=== PATIENT | female | born 1950 ===

== ENCOUNTER 2017-05-19 11:29 | Inpatient (IN) | payer MEDICAID, OTHER, SELFPAY ==
--- NOTE | 2017-05-19 12:36 | ED PDOC ---
Lower Extremity Pain/Injury Time Seen by Provider: 05/19/17 12:24 Chief Complaint (Nursing): Lower Extremity Problem/Injury Chief Complaint (Provider): foot pain History Per: Patient Additional Complaint(s): 66 year old female presents to ED for evaluation of chronic wound to left foot. Patient was sent for outpatient MRI of foot by her tub mender Dr. Reynoso and was told that the MRI report showed osteomyelitis. She presents today at request of Dr. Reynoso for further evaluation. Patient states she is currently on antibiotics but she is not sure of the name of these medications. She denies fever or chills. Patient has mild pain to affected area. Past Medical History Reviewed: Historical Data, Nursing Documentation, Vital Signs Vital Signs: Last Vital Signs Temp 97.4 F L 05/19/17 11:56 Pulse 83 05/19/17 11:56 Resp 18 05/19/17 11:56 BP 149/80 05/19/17 11:56 Pulse Ox 98 05/19/17 11:56 - Medical History PMH: CVA, Diabetes, HTN, Hypercholesterolemia - Surgical History Surgical History: No Surg Hx - Family History Family History: States: No Known Family Hx - Living Arrangements Living Arrangements: With Family - Social History Current smoker - smoking cessation education provided: No Alcohol: None Drugs: Denies - Home Medications Home Medications: Ambulatory Orders Medication Instructions Recorded Atorvastatin [Lipitor] 40 mg PO DAILY 05/19/17 Enalapril Maleate [Vasotec] 10 mg PO BID 05/19/17 Insulin Detemir [Levemir] 15 unit SC QAM 05/19/17 Insulin Detemir [Levemir] 20 unit SC QPM 05/19/17 Metoprolol Tartrate [Lopressor] 25 mg PO BID 05/19/17 - Allergies Allergies/Adverse Reactions: Allergies Allergy/AdvReac Type Severity Reaction Status Date / Time No Known Allergies Allergy Verified 05/14/16 14:21 Wells Criteria for PE - Wells Criteria for Pulmonary Embolism Clinical Signs and Symptoms of DVT: No P.E is #1 Diagnosis, or Equally Likely: No Heart Rate >100: No Immobilization at least 3 days;Surgery previous 4 weeks: No Previous, objectively diagnosed PE or DVT: No Hemoptysis: No Malignancy w/treatment within 6 months, or palliative: No Total Score: 0 Review of Systems ROS Statement: Except As Marked, All Systems Reviewed And Found Negative Constitutional: Negative for: Fever, Chills Musculoskeletal: Positive for: Foot Pain (left) Physical Exam - Reviewed Nursing Documentation Reviewed: Yes Vital Signs Reviewed: Yes - Physical Exam Appears: Positive for: Well, Non-toxic, No Acute Distress Skin: Negative for: Rash Eye Exam: Positive for: Normal appearance Cardiovascular/Chest: Positive for: Regular Rate, Rhythm Respiratory: Positive for: Normal Breath Sounds Extremity: Positive for: Other (dry sterile dressing in place to left foot with ortho shoe) Neurologic/Psych: Positive for: Alert, Oriented - Laboratory Results Result Diagrams: 05/19/17 14:00 05/19/17 14:00 - ECG Interpretation Of ECG: NSR 96 bpm, nonspecific changes, reviewed by ED attending and service writer advisor O2 Sat by Pulse Oximetry: 98 Pulse Ox Interpretation: Normal - Other Rad Left foot x-ray X-Ray: Interpreted by Me, Viewed By Me X-Ray Interpretation: osteo 1st metatarsal CXR X-Ray: Interpreted by Me, Viewed By Me X-Ray Interpretation: see below Medical Decision Making Medical Decision Makin66 year old with left foot osteomyelitis Plan: CBC CMP Left foot x-ray CXR EKG As per podiatry resident, arterial doppler of left leg ordered along with IV zosyn. Patient is aware of and agrees with admission. Case was discussed with family practice resident for admission. Disposition - Clinical Impression Clinical Impression: Osteophyte, left foot - Patient ED Disposition Is Patient to be Admitted: Yes - Disposition Disposition Time: 14:35 Condition: FAIR - Pt Status Changed To: Hospital Disposition Of: Inpatient - Admit Certification Admit to Inpatient:: After my assessment, the patient will require hospitalization for at least two midnights. This is because of the severity of symptoms shown, intensity of services needed, and/or the medical risk in this patient being treated as an outpatient. - POA Present On Arrival: None Results - Lab Results Lab Results: 05/19/17 05/19/17 14:00 14:00 WBC 10.4 RBC 4.31 Hgb 11.6 L Hct 35.3 MCV 81.9 MCH 27.0 MCHC 32.9 L RDW 15.9 H Plt Count 134 MPV 10.7 Neut % (Auto) 65.5 Lymph % (Auto) 26.0 Centre % (Auto) 5.9 Eos % (Auto) 1.6 Baso % (Auto) 1.0 Neut # 6.8 Lymph # 2.7 Centre # 0.6 Eos # 0.2 Baso # 0.1 Sodium 139 Potassium 4.3 Chloride 107 Carbon Dioxide 23 Anion Gap 13 BUN 13 Creatinine 1.0 Est GFR ( Amer) > 60 Est GFR (Non-Af Amer) 56 Random Glucose 133 H Calcium 9.8 Total Bilirubin 0.8 AST 25 ALT 33 Alkaline Phosphatase 88 Total Protein 7.1 Albumin 3.7 Globulin 3.3 Albumin/Globulin Ratio 1.1
[2017-05-19] MEDS ORDERED: Sodium Chloride 0.9% 1,000 ML IV STA (13:07)
[2017-05-19] MEDS ORDERED: Piperacillin/Tazobact 3.375 GM in Sodium Chloride 0.9% 100 ML IVPB STA (13:21)
--- NOTE | 2017-05-19 14:30 | RAD ---
HISTORY: admit COMPARISON: No prior. FINDINGS: LUNGS: Mild pulmonary vascular congestive changes with bilateral lower lobe atelectasis and or developing infiltrates. Suspect small bilateral effusions PLEURA: As above. No pneumothorax apparent. CARDIOVASCULAR: Normal. Cardiomegaly OSSEOUS STRUCTURES: No significant abnormalities. VISUALIZED UPPER ABDOMEN: Normal. OTHER FINDINGS: None. IMPRESSION: Mild pulmonary vascular congestive changes with bilateral lower lobe atelectasis and or developing infiltrates. Suspect small bilateral effusions Cardiomegaly.
[2017-05-19 14:33] LABS: BASO # 0.1 K/uL (0.0-0.2); EOS # 0.2 K/uL (0.0-0.7); EOS % 1.6 % (0.0-4.0); HEMATOCRIT 35.3 % (34.0-47.0); LYMPH # 2.7 K/uL (1.0-4.3); MEAN CELL VOLUME 81.9 fl (81.0-99.0); MEAN CORPUSCULAR HGB CONC 32.9 g/dL (33.0-37.0); MEAN PLATELET VOLUME 10.7 fl (7.2-11.7); MONO # 0.6 K/uL (0.0-0.8); MONO % 5.9 % (0.0-10.0); NEUT # 6.8 K/uL (1.8-7.0); NEUT % 65.5 % (50.0-75.0); NRBC % 0.2 % (0.0-0.0); RED CELL DISTRIBUTION WIDTH 15.9 % (11.5-14.5); WHITE BLOOD COUNT 10.4 K/uL (4.8-10.8)
[2017-05-19 14:34] LABS: CHLORIDE 107 mmol/L (98-107)
[2017-05-19 14:35] LABS: POTASSIUM 4.3 MMOL/L (3.6-5.0); SODIUM 139 mmol/l (132-148)
[2017-05-19 14:37] LABS: ALB/GLOB RATIO 1.1 (1.0-2.1); AST/SGOT 25 U/L (14-36); BILIRUBIN,TOTAL 0.8 mg/dl (0.2-1.3); BLOOD UREA NITROGEN 13 mg/dl (7-17); CARBON DIOXIDE 23 mmol/L (22-30); GFR AFRICAN-AMERICAN > 60; TOTAL PROTEIN 7.1 G/DL (6.3-8.2)
[2017-05-19 14:38] LABS: ALKALINE PHOSPHATASE 88 U/L (38-126); ALT/SGPT 33 U/L (9-52); CALCIUM 9.8 mg/dL (8.4-10.2); GLUCOSE,RANDOM 133 mg/dL (65-105)
--- NOTE | 2017-05-19 14:49 | RAD ---
PROCEDURE: Left foot dated 05/19/2017 Three views left foot performed. HISTORY: Rule out osteomyelitis. As per discussion with emergency room PA [facility] [place] performed last week demonstrated osteomyelitis 2:45 p.m.. . COMPARISON: Comparison made with prior study 05/05/2017 FINDINGS: BONES: Current study reveals what appears represent some localized irregularity along the superomedial border of the head of the 1st meta tarsal. There is also some irregularity of the overlying soft tissues and possibly small amount of subcutaneous air. Findings suggest osteomyelitis in this location. JOINTS: Joint space is relatively preserved. SOFT TISSUES: As above OTHER FINDINGS: None. IMPRESSION: Findings suggestive of osteomyelitis involving the superomedial aspect head of the 1st metatarsal with overlying soft tissue irregularity and possibly small amount subcutaneous air Findings discussed with emergency room PA as above
[2017-05-19] MEDS ORDERED: Piperacillin/Tazobact 3.375 gm Inj IVPB ONE ×2 (15:50→20:27)
[2017-05-19] MEDS ORDERED: Glucagon Recombinant 1 mg Inj IM PRN (16:11)
[2017-05-19] MEDS ORDERED: Dextrose 50% SYRINGE Inj (50 ml) IV PRN (16:11)
--- NOTE | 2017-05-19 16:16 | US ---
PROCEDURE: Duplex ultrasound of the left lower extremity arteries. HISTORY: osteo of left foot COMPARISON: None available. TECHNIQUE: Grayscale and duplex Doppler evaluation of the left common femoral, superficial femoral, popliteal, posterior tibial and dorsalis pedis arteries was performed.. FINDINGS: COMMON FEMORAL ARTERY: Patent. Maximal flow velocity of 69.5 cm/s. Biphasic waveforms identified suggesting mild arterial disease without significant stenosis. SUPERFICIAL FEMORAL ARTERY:Patent. Maximal flow velocity of 50.8 cm/s. Biphasic waveforms identified suggesting mild arterial disease without significant stenosis. POPLITEAL ARTERY:Patent. Maximal flow velocity of 70.9 cm/s. Biphasic waveforms identified suggesting mild arterial disease without significant stenosis. POSTERIOR TIBIAL ARTERY: Patent. Maximal flow velocity of 64.8 cm/s. Monophasic waveform is appreciated suggesting significant arterial stenosis, potentially severe. Similar changes are identified at the anterior tibial artery. DORSALIS PEDIS ARTERY: Patent. Maximal flow velocity of 40.9 cm/s. Addendum nearly monomorphic waveform is appreciated which may indicate severe arterial disease. OTHER FINDINGS: None. IMPRESSION: Mild arterial disease is suggested at the proximal to mid leg from left groin to knee with potentially severe arterial disease in the runoff below the left knee. Follow-up MR or CT angiography is advised with contrast.
--- NOTE | 2017-05-19 16:22 | CP.PCM.HP ---
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 Pt stated that she came to ED because her outpt general service technician told her to because "it is infected." As per ED documentation, she presented at the request of her general service technician Dr. Reynoso for further eval after an outpt MRI showed osteomyelitis. Patient stated that she is currently on antibiotics but she is not sure of the name of these medications. Patient has mild pain to affected area, and stated that overall her feet occasionally feel numb. Patient states that the pain is 6/ 10, dull, radiates up to the ankle, is aggravated by walking and friction from her shoe, is not alleviated by anything, and is not associated with any other symptoms. States that she has no specific deficits from her stroke, but that she overall feels much weaker after it, without one side being more weak than another. States that she has chronic back pain from a fall down a slight of stairs after slipping, that the pain is unchanged and that she sometimes wears a binder to alleviate it. PMHx: DM2, HTN, HLD, NH, stroke, chronic back pain Allergies: NDKA Medications: atorvastatin 40, enalapril 10 bid, levemir 15u sc AM, levemir 20 sc PM, metoprolol 25 mg BID. States that she is compliant with medications. Past Hospitalizations: numerous times for "high sugar" for NH for stroke Past Surgical History: none Past Trauma: slipped and fell down flight of stairs 3 yrs ago, has chronic back pain as a result Social Hx: former smoker (smoked 2cig/day for 40+ yrs, quit one year ago), denies occasional EtOH use, denies drug use (prescription painkillers, marijuana , cocaine, heroin). Lives with spouse in apartment on [address]th floor. Family Hx: mother NH age 86 OBGYN Hx: (two sets of twins), no abortions/miscarriages. LMP 13-14 yrs ago. ED course: Vitals: 149/80, HR 83, T97.4, O2sat 98 RA EKG: interpreted in ED as NSR @ 96 bpm, nonspecific wave changes, interpreted by ED attending CMP: unremarkable CBC: Hgb 11.6, no white count (WBC 10.4) NS bolus 1L Zosyn LE Duplex: Mild arterial disease is suggested at the proximal to mid leg from left groin to knee with potentially severe arterial disease in the runoff below the knee. Follow up MR or CT angiography is advised with contrast. Foot Xray: Study reveals what appears to represent some localized irregularity along the superomedial border of the head of first metatarsal. Also some irregularity of the overlying soft tissues and possibly small amount of subcutaneous air. Findings suggest osteomyelitis in this location. CXR: mild pulmonary vascular congestive changes with bilateral lower lobe atelectasis and/or developing infiltrates. Suspect small bilateral effusions. Present on Admission - Present on Admission Any Indicators Present on Admission: No Review of Systems - Review of Systems All systems: reviewed and no additional remarkable complaints except - Gastrointestinal Gastrointestinal: Constipation - Musculoskeletal Musculoskeletal: Back Pain, Numbness Additional comments: stocking distribution numbness b/l lower extremities to mid calf. chronic back pain s/p fall 3 yrs ago pain in LLE due to ulcer - Neurological Neurological: Weakness Additional comments: overall, chronic, post stroke Past Patient History - Infectious Disease Hx of Infectious Diseases: None - Tetanus Immunizations Tetanus Immunization: Unknown - Past Medical History & Family History Past Medical History?: Yes Past Family History: Reviewed and not pertinent - Past Social History Smoking Status: Former Smoker Alcohol: None Drugs: Denies Home Situation {Lives}: With Family Domestic Violence: Negative - CARDIAC Hx Cardiac Disorders: Yes Hx Hypercholesterolemia: Yes Hx Hypertension: Yes - PULMONARY Hx Respiratory Disorders: No - NEUROLOGICAL Hx Neurological Disorder: Yes HX Cerebrovascular Accident: Yes (left sided weakness) - HEENT Hx HEENT Problems: No - RENAL Hx Chronic Kidney Disease: No - ENDOCRINE/METABOLIC Hx Endocrine Disorders: Yes Hx Diabetes Mellitus Type 2: Yes - HEMATOLOGICAL/ONCOLOGICAL Hx Blood Disorders: No - INTEGUMENTARY Hx Dermatological Problems: No - MUSCULOSKELETAL/RHEUMATOLOGICAL Hx Musculoskeletal Disorders: Yes Other/Comment: hx of chronic back pain - GASTROINTESTINAL Hx Gastrointestinal Disorders: No - GENITOURINARY/GYNECOLOGICAL Hx Genitourinary Disorders: No - PSYCHIATRIC Hx Psychophysiologic Disorder: No Hx Substance Use: No - SURGICAL HISTORY Hx Surgeries: Yes Hx Section: Yes - ANESTHESIA Hx Anesthesia: Yes Hx Anesthesia Reactions: No Meds Allergies/Adverse Reactions: Allergies Allergy/AdvReac Type Severity Reaction Status Date / Time No Known Allergies Allergy Verified 05/14/16 14:21 Physical Exam - Constitutional Appears: Well, No Acute Distress - Head Exam Head Exam: ATRAUMATIC, NORMAL INSPECTION - Eye Exam Eye Exam: EOMI, PERRL - ENT Exam ENT Exam: Mucous Membranes Moist - Respiratory Exam Respiratory Exam: Clear to Auscultation Bilateral, NORMAL BREATHING PATTERN. absent: Wheezes, Respiratory Distress - Cardiovascular Exam Cardiovascular Exam: REGULAR RHYTHM, +S1, +S2 - GI/Abdominal Exam GI & Abdominal Exam: Normal Bowel Sounds, Soft. absent: Distended, Guarding, Tenderness - Extremities Exam Extremities exam: Positive for: normal capillary refill. Negative for: calf tenderness, joint swelling Additional comments: 3/4 inch by 3/4 inch ulcer on first metatarsal of L foot mild pain to touch of left foot up to ankle - Neurological Exam Neurological exam: Alert, Oriented x3 - Psychiatric Exam Psychiatric exam: Normal Mood - Skin Skin Exam: Dry, Normal Color, Warm Results - Vital Signs Recent Vital Signs: Last Vital Signs Temp 97.4 F L 05/19/17 11:56 Pulse 83 05/19/17 11:56 Resp 18 05/19/17 11:56 BP 149/80 05/19/17 11:56 Pulse Ox 98 05/19/17 15:30 - Labs Result Diagrams: 05/19/17 14:00 05/19/17 14:00 Assessment & Plan - Assessment and Plan (Free Text) Assessment: 66 yo F with PMH DM2, HTN, HLD, NH, stroke admitted due to most likely osteomyelitis in left lower extremity at first metatarsal. Plan: 1) Osteomyelitis -podiatry consulted -LE Doppler: Mild arterial disease is suggested at the proximal to mid leg from left groin to knee with potentially severe arterial disease in the runoff below the knee. Follow up MR or CT angiography is advised with contrast. -Xray Foot: Study reveals what appears to represent some localized irregularity along the superomedial border of the head of first metatarsal. Also some irregularity of the overlying soft tissues and possibly small amount of subcutaneous air. Findings suggest osteomyelitis in this location. -CXR: mild pulmonary vascular congestive changes with bilateral lower lobe atelectasis and/or developing infiltrates. Suspect small bilateral effusions. -Zosyn 3.375gm Q12, Day 1 -Labs: CBC, CMP, PT/INR/PTT -Tramadol for pain Q6 PRN -ID consult 2) Diabetes Mellitus Type 2 -Restart home meds: levemir 15u QAM, 20u QPM -Diabetic diet -Monitor glucose -Hyperglycemia protocol in place 3)Hypertension -Restart home meds: enalapril, metoprolol -Monitor BP 4)Hyperlipidemia -Restart home meds: atorvastatin 5) Anxiety -Psych consult placed bc pt was reported to be very anxious and labile 6)DVT prophylaxis -Lovenox 40 mg SC daily
[2017-05-19] MEDS ORDERED: Labetalol 5 mg/ml Inj 20ML IVP STA (17:31)
[2017-05-19] MEDS ORDERED: Insulin Regular 100 units/ml ONE (18:32)
[2017-05-19] MEDS: Insulin Regular 100 units/ml SC SCH ×2 (18:35→22:23)
[2017-05-19] MEDS: Insulin Detemir 100 Units/ml Inj SC SCH (18:40)
--- NOTE | 2017-05-19 19:49 | CP.PCM.CON ---
Past Patient History - Infectious Disease Hx of Infectious Diseases: None - Tetanus Immunizations Tetanus Immunization: Unknown - Past Medical History & Family History Past Medical History?: Yes Past Family History: Reviewed and not pertinent - Past Social History Smoking Status: Former Smoker Alcohol: None Drugs: Denies Home Situation {Lives}: With Family Domestic Violence: Negative - CARDIAC Hx Cardiac Disorders: Yes Hx Hypercholesterolemia: Yes Hx Hypertension: Yes - PULMONARY Hx Respiratory Disorders: No - NEUROLOGICAL Hx Neurological Disorder: Yes HX Cerebrovascular Accident: Yes (left sided weakness) - HEENT Hx HEENT Problems: No - RENAL Hx Chronic Kidney Disease: No - ENDOCRINE/METABOLIC Hx Endocrine Disorders: Yes Hx Diabetes Mellitus Type 2: Yes - HEMATOLOGICAL/ONCOLOGICAL Hx Blood Disorders: No - INTEGUMENTARY Hx Dermatological Problems: No - MUSCULOSKELETAL/RHEUMATOLOGICAL Hx Musculoskeletal Disorders: Yes Other/Comment: hx of chronic back pain - GASTROINTESTINAL Hx Gastrointestinal Disorders: No - GENITOURINARY/GYNECOLOGICAL Hx Genitourinary Disorders: No - PSYCHIATRIC Hx Psychophysiologic Disorder: No Hx Substance Use: No - SURGICAL HISTORY Hx Surgeries: Yes Hx Section: Yes - ANESTHESIA Hx Anesthesia: Yes Hx Anesthesia Reactions: No Meds Allergies/Adverse Reactions: Allergies Allergy/AdvReac Type Severity Reaction Status Date / Time No Known Allergies Allergy Verified 05/14/16 14:21 - Medications Medications: Current Medications Atorvastatin Calcium (Lipitor) 40 mg PO DAILY [facility] Dextrose (Dextrose 50% Inj) 0 ml IV STAT PRN; Protocol PRN Reason: Hyglycemia Protocol Dextrose (Glutose 15) 0 gm PO ONCE PRN; Protocol PRN Reason: Hypoglycemia Protocol Enalapril Maleate (Vasotec) 10 mg PO BID [facility] Last Admin: 05/19/17 18:43 Dose: 10 mg Enoxaparin Sodium (Lovenox) 40 mg SC DAILY [facility] PRN Reason: Protocol Glucagon (Glucagen Diagnostic Kit) 0 mg IM STAT PRN; Protocol PRN Reason: Hypoglycemia Protocol Piperacillin Sod/Tazobactam (Sod 3.375 gm/ Sodium Chloride) 100 mls @ 100 mls/ hr IVPB Q12 [facility] Insulin Detemir (Levemir) 20 units SC QPM [facility] Last Admin: 05/19/17 18:40 Dose: 20 unit Insulin Detemir (Levemir) 15 units SC QAM [facility] Insulin Human Regular (Humulin R) 0 units SC ACHS [facility] PRN Reason: Protocol Last Admin: 05/19/17 18:35 Dose: 3 unit Metoprolol Tartrate (Lopressor) 25 mg PO BID DASHAWN Last Admin: 05/19/17 18:43 Dose: 25 mg Morphine Sulfate (Morphine) 1 mg IVP Q6 PRN PRN Reason: Pain, moderate (4-7) Last Admin: 05/19/17 16:49 Dose: 1 mg Ondansetron HCl (Zofran Inj) 4 mg IVP ONCE ONE Stop: 05/19/17 19:19 Last Admin: 05/19/17 19:40 Dose: 4 mg Tramadol HCl (Ultram) 100 mg PO Q6 PRN PRN Reason: Pain, severe (8-10) Results - Vital Signs Recent Vital Signs: Last Vital Signs Temp 98.4 F 05/19/17 19:48 Pulse 95 H 05/19/17 19:48 Resp 16 05/19/17 19:48 BP 134/53 L 05/19/17 19:48 Pulse Ox 94 L 05/19/17 19:48 - Labs Result Diagrams: 05/19/17 14:00 05/19/17 14:00
[2017-05-19] MEDS: Piperacillin/Tazobact 3.375 GM in Sodium Chloride 0.9% 100 ML IVPB SCH (21:00)
[2017-05-20] MEDS ORDERED: Pneumococcal 23-Valent Vaccine IM ONE (06:30)
[2017-05-20] MEDS: Insulin Regular 100 units/ml SC SCH ×4 (06:34→21:43)
[2017-05-20 07:37] LABS: PARTIAL THROMBOPLASTIN TIME 34.8 Seconds (25.6-37.1)
[2017-05-20 07:46] LABS: MEAN CELL VOLUME 82.7 fl (81.0-99.0); MEAN CORPUSCULAR HEMOGLOBIN 27.3 pg (27.0-31.0); RED CELL DISTRIBUTION WIDTH 15.9 % (11.5-14.5); WHITE BLOOD COUNT 8.9 K/uL (4.8-10.8)
[2017-05-20] MEDS ORDERED: Insulin Detemir 100 Units/ml Inj SC SCH (09:00)
--- NOTE | 2017-05-20 09:01 | CP.PCM.CON ---
History of Present Illness - History of Present Illness History of Present Illness: 66 year old female PMHx DM2, HTN, HLD, [place], CVA, chronic back pain seen at bedside for left foot chronic ulceration. Patient seen sleeping in bed comfortably, AAOx3 and NAD. Patient reports that she only experiences pain in her left foot whenever she puts pressure or any weight on it. She denies pain to her L foot currently. Patient states she was admitted at the request of Dr. Reynoso for a bone infection to her L foot. Patient denies any acute events overnight. Patient is inquiring when she will have surgery. Patient denies N/V/F /D/C/SOB/calf pain. No other pedal complaints at this time. PMH: DM2, HTN, HLD, [place], CVA, chronic back pain PSH: none FH: [place] - mother SH: former smoker, no ETOH, no illicit drug use Meds: see med list All: NKDA Review of Systems - Review of Systems All systems: reviewed and no additional remarkable complaints except (as per HPI ) Past Patient History - Infectious Disease Hx of Infectious Diseases: None - Tetanus Immunizations Tetanus Immunization: Unknown - Past Medical History & Family History Past Medical History?: Yes - Past Social History Smoking Status: Former Smoker - CARDIAC Hx Cardiac Disorders: Yes Hx Hypercholesterolemia: Yes Hx Hypertension: Yes - PULMONARY Hx Respiratory Disorders: No - NEUROLOGICAL Hx Neurological Disorder: Yes HX Cerebrovascular Accident: Yes (left sided weakness) - HEENT Hx HEENT Problems: No - RENAL Hx Chronic Kidney Disease: No - ENDOCRINE/METABOLIC Hx Endocrine Disorders: Yes Hx Diabetes Mellitus Type 2: Yes - HEMATOLOGICAL/ONCOLOGICAL Hx Blood Disorders: No - INTEGUMENTARY Hx Dermatological Problems: No - MUSCULOSKELETAL/RHEUMATOLOGICAL Hx Musculoskeletal Disorders: Yes Hx Falls: Yes (fell 6 months ago) Other/Comment: hx of chronic back pain - GASTROINTESTINAL Hx Gastrointestinal Disorders: No - GENITOURINARY/GYNECOLOGICAL Hx Genitourinary Disorders: No - PSYCHIATRIC Hx Psychophysiologic Disorder: No Hx Substance Use: No - SURGICAL HISTORY Hx Surgeries: Yes Hx Section: Yes - ANESTHESIA Hx Anesthesia: Yes Hx Anesthesia Reactions: No Meds Allergies/Adverse Reactions: Allergies Allergy/AdvReac Type Severity Reaction Status Date / Time No Known Allergies Allergy Verified 05/14/16 14:21 - Medications Medications: Current Medications Atorvastatin Calcium (Lipitor) 40 mg PO DAILY [facility] Dextrose (Dextrose 50% Inj) 0 ml IV STAT PRN; Protocol PRN Reason: Hyglycemia Protocol Dextrose (Glutose 15) 0 gm PO ONCE PRN; Protocol PRN Reason: Hypoglycemia Protocol Enalapril Maleate (Vasotec) 10 mg PO BID [facility] Last Admin: 05/19/17 18:43 Dose: 10 mg Enoxaparin Sodium (Lovenox) 40 mg SC DAILY [facility] PRN Reason: Protocol Glucagon (Glucagen Diagnostic Kit) 0 mg IM STAT PRN; Protocol PRN Reason: Hypoglycemia Protocol Piperacillin Sod/Tazobactam (Sod 3.375 gm/ Sodium Chloride) 100 mls @ 100 mls/ hr IVPB Q12 [facility] Last Admin: 05/19/17 21:00 Dose: 100 mls/hr Insulin Detemir (Levemir) 20 units SC QPM [facility] Last Admin: 05/19/17 18:40 Dose: 20 unit Insulin Detemir (Levemir) 15 units SC QAM [facility] Insulin Human Regular (Humulin R) 0 units SC ACHS [facility] PRN Reason: Protocol Last Admin: 05/20/17 06:34 Dose: Not Given Metoprolol Tartrate (Lopressor) 25 mg PO BID [facility] Last Admin: 05/19/17 18:43 Dose: 25 mg Morphine Sulfate (Morphine) 1 mg IVP Q6 PRN PRN Reason: Pain, moderate (4-7) Last Admin: 05/19/17 16:49 Dose: 1 mg Tramadol HCl (Ultram) 100 mg PO Q6 PRN PRN Reason: Pain, severe (8-10) Physical Exam - Constitutional Appears: Well, Non-toxic, No Acute Distress - Extremities Exam Additional comments: LLE focused physical exam: Vasc: DP pulse nonpalpable. PT pulse weakly palpable 1/4. CFT <3 seconds to digits. TG cool to cool. No edema noted Neuro: Gross sensation intact Derm: Ulceration measuring 1.5 x 1.5 cm with mixed necrotic/fibrous base and hyperkeratotic rim. No drainage, purulence, malodor noted. Ortho: Mild tenderness to palpation medial 1st met head - Neurological Exam Neurological exam: Alert, Oriented x3 - Psychiatric Exam Psychiatric exam: Normal Affect, Normal Mood Results - Vital Signs Recent Vital Signs: Last Vital Signs Temp 98.4 F 05/20/17 08:24 Pulse 83 05/20/17 08:24 Resp 18 05/20/17 08:24 BP 132/81 05/20/17 08:24 Pulse Ox 97 05/20/17 08:24 - Labs Result Diagrams: 05/20/17 06:00 05/19/17 14:00 Labs: Laboratory Results - last 24 hr 05/19/17 05/19/17 05/20/17 18:19 19:47 06:00 WBC 8.9 RBC 3.99 Hgb 10.9 L Hct 33.0 L MCV 82.7 MCH 27.3 MCHC 33.0 RDW 15.9 H Plt Count 150 PT INR APTT POC Glucose (mg/dL) 230 H 316 H 05/20/17 06:00 WBC RBC Hgb Hct MCV MCH MCHC RDW Plt Count PT 13.1 INR 1.2 APTT 34.8 POC Glucose (mg/dL) Assessment & Plan - Assessment and Plan (Free Text) Assessment: 66 year old F PMHx DM2, HTN, HLD, [place], stroke with left foot 1st metatarsal ulceration and 1st metatarsal head osteomyelitis secondary to DM Plan: Patient seen and evaluated at bedside. Discussed with attending, Dr. Reynoso. Chart, vitals, labs reviewed = afebrile, WBC = 8.9, glucose = 316 L foot XR reviewed: +OM to superomedial 1st met head LLE arterial doppler reviewed: mild arterial disease at proximal mid leg from groin to knee with potentially severe arterial disease in the runoff below knee Continue abx per ID = Zosyn Continue pain mgmt per medicine = Morphine, Tramadol F/U vascular consult w/Dr. Castro. Per Dr. Castro, LLE CTA ordered Plan for OR next week, pending vascular recommendations & cardiac clearance Podiatry will continue to follow while in house - Date & Time Date: 05/20/17 Time: 10:00
[2017-05-20] MEDS: Insulin Detemir 100 Units/ml Inj SC SCH ×2 (09:31→18:41)
[2017-05-20] MEDS: Enoxaparin 40 mg Syringe SC SCH (09:31)
[2017-05-20] MEDS: Piperacillin/Tazobact 3.375 GM in Sodium Chloride 0.9% 100 ML IVPB SCH ×2 (10:00→21:36)
--- NOTE | 2017-05-20 10:27 | RAD ---
HISTORY: surgical clearance COMPARISON: 05/19/2017 TECHNIQUE: Chest PA and lateral FINDINGS: LUNGS: Hazy opacity at right base not evident in the lateral projection. Possible middle lobe infiltrate. There is also a denser radio opacity overlapping the right hemidiaphragm, again uncertain significance. Possible subsegmental atelectasis. PLEURA: Small right pleural effusion. No evidence of left pleural effusion. No pneumothorax. CARDIOVASCULAR: Normal. OSSEOUS STRUCTURES: No significant abnormalities. VISUALIZED UPPER ABDOMEN: Normal. OTHER FINDINGS: None. IMPRESSION: Right basilar opacity, possible early infiltrate. Possible subsegmental atelectasis right base. Small right pleural effusion. Interval change from prior examination.
--- NOTE | 2017-05-20 10:32 | CARD ---
APPROVED REPORT EKG Measurement Heart [id number] <Conclusion> Normal sinus rhythm Possible Left atrial enlargement Nonspecific ST and T wave abnormality Prolonged QT Abnormal ECG
--- NOTE | 2017-05-20 14:46 | CP.PCM.CON ---
History of Present Illness - History of Present Illness History of Present Illness: psychiatry consult reason: anxiety, crying ordered by dr. leo cc: i'm nervous hpi: pt seen with michael beaulieuspanish interpreter/translator. pt states she has no history of seeing a psychiatrist. she states her pcp had prescribed xanax to help her anxiety, but she stopped it over a year ago because she didn't like how it made her feel. she reports she has been nervous and had not been able to sleep for the last 4 months. she states she is worried about the infection in her foot and other medical problems. she states her curses at home and this triggers her anxiety. past psych: as above social: , lives with . has children and grandchildren in [place] but they are not involved daily. she reports she was [place] 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 substance use: denies medical: diabetes, osteo of foot mse: alert, oriented x 3. mood is anxious. affect is appropriate. speech is appropriate rate/tone volume. pt denies suicidal or homicidal thoughts/plans or intent. fair i/j. assessment: adjustment disorder with anxiety recommendation: remeron 7.5mg hs for insomnia/anxiety can be refered to adult day care/outpt therapy Past Patient History - Infectious Disease Hx of Infectious Diseases: None - Tetanus Immunizations Tetanus Immunization: Unknown - Past Medical History & Family History Past Medical History?: Yes - Past Social History Smoking Status: Former Smoker - CARDIAC Hx Cardiac Disorders: Yes Hx Hypercholesterolemia: Yes Hx Hypertension: Yes - PULMONARY Hx Respiratory Disorders: No - NEUROLOGICAL Hx Neurological Disorder: Yes HX Cerebrovascular Accident: Yes (left sided weakness) - HEENT Hx HEENT Problems: No - RENAL Hx Chronic Kidney Disease: No - ENDOCRINE/METABOLIC Hx Endocrine Disorders: Yes Hx Diabetes Mellitus Type 2: Yes - HEMATOLOGICAL/ONCOLOGICAL Hx Blood Disorders: No - INTEGUMENTARY Hx Dermatological Problems: No - MUSCULOSKELETAL/RHEUMATOLOGICAL Hx Musculoskeletal Disorders: Yes Hx Falls: Yes (fell 6 months ago) Other/Comment: hx of chronic back pain - GASTROINTESTINAL Hx Gastrointestinal Disorders: No - GENITOURINARY/GYNECOLOGICAL Hx Genitourinary Disorders: No - PSYCHIATRIC Hx Psychophysiologic Disorder: No Hx Substance Use: No - SURGICAL HISTORY Hx Surgeries: Yes Hx Section: Yes - ANESTHESIA Hx Anesthesia: Yes Hx Anesthesia Reactions: No Meds Allergies/Adverse Reactions: Allergies Allergy/AdvReac Type Severity Reaction Status Date / Time No Known Allergies Allergy Verified 05/14/16 14:21 - Medications Medications: Current Medications Atorvastatin Calcium (Lipitor) 40 mg PO DAILY [facility] Last Admin: 05/20/17 09:35 Dose: 40 mg Dextrose (Dextrose 50% Inj) 0 ml IV STAT PRN; Protocol PRN Reason: Hyglycemia Protocol Dextrose (Glutose 15) 0 gm PO ONCE PRN; Protocol PRN Reason: Hypoglycemia Protocol Enalapril Maleate (Vasotec) 10 mg PO BID [facility] Last Admin: 05/20/17 09:34 Dose: 10 mg Enoxaparin Sodium (Lovenox) 40 mg SC DAILY [facility] PRN Reason: Protocol Last Admin: 05/20/17 09:31 Dose: 40 mg Glucagon (Glucagen Diagnostic Kit) 0 mg IM STAT PRN; Protocol PRN Reason: Hypoglycemia Protocol Piperacillin Sod/Tazobactam (Sod 3.375 gm/ Sodium Chloride) 100 mls @ 100 mls/ hr IVPB Q12 [facility] Last Admin: 05/20/17 10:00 Dose: 100 mls/hr Insulin Detemir (Levemir) 20 units SC QPM [facility] Last Admin: 05/19/17 18:40 Dose: 20 unit Insulin Detemir (Levemir) 15 units SC QAM [facility] Last Admin: 05/20/17 09:31 Dose: 15 units Insulin Human Regular (Humulin R) 0 units SC ACHS [facility] PRN Reason: Protocol Last Admin: 05/20/17 06:34 Dose: Not Given Metoprolol Tartrate (Lopressor) 25 mg PO BID [facility] Last Admin: 05/20/17 09:34 Dose: 25 mg Morphine Sulfate (Morphine) 1 mg IVP Q6 PRN PRN Reason: Pain, moderate (4-7) Last Admin: 05/19/17 16:49 Dose: 1 mg Tramadol HCl (Ultram) 100 mg PO Q6 PRN PRN Reason: Pain, severe (8-10) Results - Vital Signs Recent Vital Signs: Last Vital Signs Temp 98.2 F 05/20/17 13:04 Pulse 80 05/20/17 13:04 Resp 18 05/20/17 13:04 BP 116/74 05/20/17 13:04 Pulse Ox 96 05/20/17 13:04 - Labs Result Diagrams: 05/20/17 06:00 05/19/17 14:00 Labs: Laboratory Results - last 24 hr 05/19/17 05/19/17 05/20/17 18:19 19:47 06:00 WBC 8.9 RBC 3.99 Hgb 10.9 L Hct 33.0 L MCV 82.7 MCH 27.3 MCHC 33.0 RDW 15.9 H Plt Count 150 PT INR APTT POC Glucose (mg/dL) 230 H 316 H 05/20/17 06:00 WBC RBC Hgb Hct MCV MCH MCHC RDW Plt Count PT 13.1 INR 1.2 APTT 34.8 POC Glucose (mg/dL)
--- NOTE | 2017-05-20 15:39 | CP.PCM.PN ---
Subjective - Date & Time of Evaluation Date of Evaluation: 05/20/17 Time of Evaluation: 07:40 - Subjective Subjective: Pt was seen and evaluated at bedside, appeared less anxious than yesterday evening, appeared comfortable. No acute events overnight, curious when surgery will be and patient was told that podiatry is following. Denied shortness of breath, chest pain, abdominal pain, leg/calf pain/swelling, denies changes in pain at left extremity. Objective - Vital Signs/Intake and Output Vital Signs (last 24 hours): Temp Pulse Resp BP Pulse Ox 98.2 F 80 18 116/74 96 05/20/17 13:04 05/20/17 13:04 05/20/17 13:04 05/20/17 13:04 05/20/17 13:04 - Medications Medications: Current Medications Atorvastatin Calcium (Lipitor) 40 mg PO DAILY [facility] Last Admin: 05/20/17 09:35 Dose: 40 mg Dextrose (Dextrose 50% Inj) 0 ml IV STAT PRN; Protocol PRN Reason: Hyglycemia Protocol Dextrose (Glutose 15) 0 gm PO ONCE PRN; Protocol PRN Reason: Hypoglycemia Protocol Enalapril Maleate (Vasotec) 10 mg PO BID [facility] Last Admin: 05/20/17 09:34 Dose: 10 mg Enoxaparin Sodium (Lovenox) 40 mg SC DAILY [facility] PRN Reason: Protocol Last Admin: 05/20/17 09:31 Dose: 40 mg Glucagon (Glucagen Diagnostic Kit) 0 mg IM STAT PRN; Protocol PRN Reason: Hypoglycemia Protocol Piperacillin Sod/Tazobactam (Sod 3.375 gm/ Sodium Chloride) 100 mls @ 100 mls/ hr IVPB Q12 [facility] Last Admin: 05/20/17 10:00 Dose: 100 mls/hr Insulin Detemir (Levemir) 20 units SC QPM [facility] Last Admin: 05/19/17 18:40 Dose: 20 unit Insulin Detemir (Levemir) 15 units SC QAM [facility] Last Admin: 05/20/17 09:31 Dose: 15 units Insulin Human Regular (Humulin R) 0 units SC ACHS [facility] PRN Reason: Protocol Last Admin: 05/20/17 06:34 Dose: Not Given Metoprolol Tartrate (Lopressor) 25 mg PO BID [facility] Last Admin: 05/20/17 09:34 Dose: 25 mg Mirtazapine (Remeron) 7.5 mg PO HS [facility] Morphine Sulfate (Morphine) 1 mg IVP Q6 PRN PRN Reason: Pain, moderate (4-7) Last Admin: 05/19/17 16:49 Dose: 1 mg Tramadol HCl (Ultram) 100 mg PO Q6 PRN PRN Reason: Pain, severe (8-10) - Labs Labs: 05/20/17 06:00 PT 13.1 Seconds (9.8-13.1) 05/20/17 06:00 INR 1.2 (0.9-1.2) 05/20/17 06:00 APTT 34.8 Seconds (25.6-37.1) 05/20/17 06:00 - Constitutional Appears: Non-toxic, No Acute Distress - Head Exam Head Exam: ATRAUMATIC - Eye Exam Eye Exam: EOMI, Normal appearance - ENT Exam ENT Exam: Mucous Membranes Moist - Respiratory Exam Respiratory Exam: Clear to Ausculation Bilateral, NORMAL BREATHING PATTERN - Cardiovascular Exam Cardiovascular Exam: REGULAR RHYTHM, +S1, +S2 - GI/Abdominal Exam GI & Abdominal Exam: Soft, Normal Bowel Sounds - Extremities Exam Extremities Exam: absent: Calf Tenderness Additional comments: ulcer at first metatarsal on LLE, as on admission - Neurological Exam Neurological Exam: Alert, Awake, Oriented x3 - Skin Skin Exam: Normal Color, Warm Assessment and Plan - Assessment and Plan (Free Text) Assessment: 66 yo F with PMH DM2, HTN, HLD, [place], CVA admitted due to most likely osteomyelitis in left lower extremity at first metatarsal. Awaiting podiatry intervention. Plan: 1) Osteomyelitis -podiatry consulted; further intervention by podiatry team, who is awaiting vascular consult -LE Doppler: Mild arterial disease is suggested at the proximal to mid leg from left groin to knee with potentially severe arterial disease in the runoff below the knee. Follow up MR or CT angiography is advised with contrast. -Xray Foot: Study reveals what appears to represent some localized irregularity along the superomedial border of the head of first metatarsal. Also some irregularity of the overlying soft tissues and possibly small amount of subcutaneous air. Findings suggest osteomyelitis in this location. -Zosyn 3.375gm Q12, Day 2 -f/u CBC, CMP, PT/INR/PTT -Tramadol for pain Q6 PRN -ID consult 2) Diabetes Mellitus Type 2 -Restart home meds: levemir 15u QAM, 20u QPM -check A1C -check urine microalbumin -Diabetic diet -Monitor glucose -Hyperglycemia protocol in place 3)Hypertension -Restart home meds: enalapril, metoprolol -Monitor BP 4)Hyperlipidemia -Restart home meds: atorvastatin -check lipid panel 5) Anxiety -seen by psychiatrist -started on remeron for anxiety 6)DVT prophylaxis -Lovenox 40 mg SC daily
[2017-05-20] MEDS ORDERED: Iodixanol 320 MG/ML 100 ML BOTTLE IV ONE (18:50)
[2017-05-20] MEDS ORDERED: Sodium Chloride 0.9% 50 ML IV ONE (18:51)
[2017-05-21] MEDS: Insulin Regular 100 units/ml SC SCH ×4 (06:36→22:00)
[2017-05-21 07:06] LABS: HEMATOCRIT 32.5 % (34.0-47.0); MEAN CELL VOLUME 82.5 fl (81.0-99.0); MEAN CORPUSCULAR HEMOGLOBIN 27.3 pg (27.0-31.0); MEAN CORPUSCULAR HGB CONC 33.1 g/dL (33.0-37.0); RED CELL DISTRIBUTION WIDTH 16.1 % (11.5-14.5); WHITE BLOOD COUNT 10.4 K/uL (4.8-10.8)
[2017-05-21 07:11] LABS: ALB/GLOB RATIO 1.1 (1.0-2.1); BILIRUBIN,TOTAL 0.7 mg/dl (0.2-1.3); CALCIUM 9.1 mg/dL (8.4-10.2); TOTAL PROTEIN 6.6 G/DL (6.3-8.2)
--- NOTE | 2017-05-21 07:45 | CP.PCM.PN ---
Subjective - Date & Time of Evaluation Date of Evaluation: 05/21/17 Time of Evaluation: 07:42 - Subjective Subjective: 66 year old female PMHx DM2, HTN, HLD, [place], CVA, chronic back pain seen at bedside for left foot chronic ulceration. Patient seen sleeping in bed comfortably, AAOx3 and NAD. She denies pain to her L foot currently. Patient denies any acute events overnight. Patient states she went for a test for her blood last night. Patient denies N/V/F/D/C/SOB/calf pain. No other pedal complaints at this time. Objective - Vital Signs/Intake and Output Vital Signs (last 24 hours): Temp Pulse Resp BP Pulse Ox 97.5 F L 86 18 169/90 H 95 05/21/17 05:15 05/21/17 05:15 05/21/17 05:15 05/21/17 05:15 05/21/17 05:15 Intake and Output: 05/21/17 05/21/17 06:59 18:59 Intake Total 900 Balance 900 - Medications Medications: Current Medications Atorvastatin Calcium (Lipitor) 40 mg PO DAILY [facility] Last Admin: 05/20/17 09:35 Dose: 40 mg Dextrose (Dextrose 50% Inj) 0 ml IV STAT PRN; Protocol PRN Reason: Hyglycemia Protocol Dextrose (Glutose 15) 0 gm PO ONCE PRN; Protocol PRN Reason: Hypoglycemia Protocol Enalapril Maleate (Vasotec) 10 mg PO BID [facility] Last Admin: 05/20/17 09:34 Dose: 10 mg Enoxaparin Sodium (Lovenox) 40 mg SC DAILY [facility] PRN Reason: Protocol Last Admin: 05/20/17 09:31 Dose: 40 mg Glucagon (Glucagen Diagnostic Kit) 0 mg IM STAT PRN; Protocol PRN Reason: Hypoglycemia Protocol Piperacillin Sod/Tazobactam (Sod 3.375 gm/ Sodium Chloride) 100 mls @ 100 mls/ hr IVPB Q12 [facility] Last Admin: 05/20/17 21:36 Dose: 100 mls/hr Insulin Detemir (Levemir) 20 units SC QPM [facility] Last Admin: 05/20/17 18:41 Dose: 20 unit Insulin Detemir (Levemir) 15 units SC QAM [facility] Last Admin: 05/20/17 09:31 Dose: 15 units Insulin Human Regular (Humulin R) 0 units SC ACHS [facility] PRN Reason: Protocol Last Admin: 05/21/17 06:36 Dose: Not Given Metoprolol Tartrate (Lopressor) 25 mg PO BID [facility] Last Admin: 05/20/17 16:54 Dose: 25 mg Mirtazapine (Remeron) 7.5 mg PO HS [facility] Last Admin: 05/20/17 21:33 Dose: 7.5 mg Morphine Sulfate (Morphine) 2 mg IVP Q6 PRN PRN Reason: Pain, moderate (4-7) Tramadol HCl (Ultram) 100 mg PO Q6 PRN PRN Reason: Pain, severe (8-10) - Labs Labs: 05/21/17 05:10 05/21/17 05:10 PT 13.1 Seconds (9.8-13.1) 05/20/17 06:00 INR 1.2 (0.9-1.2) 05/20/17 06:00 APTT 34.8 Seconds (25.6-37.1) 05/20/17 06:00 - Constitutional Appears: Well, Non-toxic, No Acute Distress - Extremities Exam Additional comments: LLE focused physical exam: Vasc: DP pulse nonpalpable. PT pulse weakly palpable 1/4. CFT <3 seconds to digits. TG cool to cool. No edema noted Neuro: Gross sensation intact Derm: Ulceration measuring 1.5 x 1.5 cm with mixed necrotic/fibrous base and hyperkeratotic rim. No drainage, purulence, malodor noted. Ortho: Mild tenderness to palpation medial 1st met head - Neurological Exam Neurological Exam: Alert, Awake, Oriented x3 - Psychiatric Exam Psychiatric exam: Normal Affect, Normal Mood Assessment and Plan - Assessment and Plan (Free Text) Assessment: 66 year old F PMHx DM2, HTN, HLD, [place], stroke with left foot 1st metatarsal ulceration and 1st metatarsal head osteomyelitis secondary to DM Plan: Patient seen and evaluated at bedside. Discussed with attending, Dr. Reynoso. Chart, vitals, labs reviewed = afebrile, WBC WNL @ 10.4 Continue abx per ID = Zosyn Continue pain mgmt per medicine = Morphine, Tramadol F/U vascular consult w/Dr. Castro. F/U LE angiography final report. Plan for OR next week with Dr. Reynoso, pending vascular recommendations & cardiac clearance Podiatry will continue to follow while in house
[2017-05-21] MEDS: Piperacillin/Tazobact 3.375 GM in Sodium Chloride 0.9% 100 ML IVPB SCH ×2 (08:49→20:45)
[2017-05-21] MEDS: Enoxaparin 40 mg Syringe SC SCH (08:50)
--- NOTE | 2017-05-21 09:06 | CT ---
PROCEDURE: CT Angiography Abdomen, Pelvis and Lower Extremity with Contrast HISTORY: evaluate L foot osteomyelitis COMPARISON: None. TECHNIQUE: Technique: CT angiography of the abdomen, pelvis and bilateral lower extremities performed in the arterial phase of enhancement. Coronal and sagittal reformats, and well as rotating MIP images of the vessels generated at the workstation. Intravenous contrast dose: 95 [employer] VIS[employer] 320 Radiation dose: Total exam DLP = 954.79 MGy-cm. This CT exam was performed using one or more of the following dose reduction techniques: Automated exposure control, adjustment of the mA and/or kV according to patient size, and/or use of iterative reconstruction technique. FINDINGS: CT ANGIOGRAPHY: ABDOMINAL AORTA:: The abdominal was unremarkable. MAJOR AORTIC BRANCHES: Celiac [place]: Unremarkable. Superior mesenteric artery: Unremarkable. Inferior mesenteric artery: Unremarkable. Renal arteries: Moderate stenosis approximately 1 centimeter from the origin of both right and left renal arteries. PELVIC ARTERIES: Right Common Iliac: Unremarkable. Right External Iliac: Unremarkable. Right Internal Iliac: Unremarkable. Left Common Iliac: Unremarkable. Left External Iliac: Unremarkable. Left Internal Iliac: Unremarkable. RIGHT LOWER EXTREMITY ARTERIES: Right Common Femoral: Unremarkable. Right Superficial Femoral: 30 percent stenosis of the proximal right SFA. Occlusion of the distal SFA with no reconstitution. Right Profunda Femoris: Unremarkable. Right Popliteal:Occluded Right Anterior Tibial: No appreciable flow within the anterior tibial artery. Right Tibioperoneal Trunk: Unremarkable. Right Posterior Tibial: Appreciable flow in the posterior tibial artery Right Peroneal: No appreciable flow within the peroneal artery Right dorsalis pedis : Partially calcified. Appreciable flow. LEFT LOWER EXTREMITY ARTERIES: Left Common Femoral: Unremarkable. Left Superficial Femoral: Moderate calcific plaque throughout the proximal mid SFA. Areas of moderate stenosis proximally and severe stenosis up to 90 percent in the mid and distal segments. Left Profunda Femoris: Unremarkable. Left Popliteal: Severe stenosis of popliteal artery with poststenotic dilatation. Left Anterior Tibial: Moderate stenosis of the proximal anterior tibial artery. Possible moderate stenosis in the mid segment. Left Tibioperoneal Trunk: Calcified and has moderate stenosis. Left Posterior Tibial: Proximal calcification limits evaluation. Mid and distal segment is patent. Left Peroneal: Segments occluded in the proximal segment. The distal segment is patent Left Dorsalis pedis: No appreciable flow. NON-ANGIOGRAPHIC ASPECT OF THE EXAM: LOWER THORAX: Small bilateral effusion LIVER: Unremarkable. No gross lesion or ductal dilatation. GALLBLADDER AND BILE DUCTS: Unremarkable. PANCREAS: Unremarkable. No gross lesion or ductal dilatation. SPLEEN: Unremarkable. ADRENALS: Nodular thickening of the left adrenal gland. Adrenals otherwise unremarkable KIDNEYS AND URETERS: Unremarkable. No hydronephrosis. No solid mass. STOMACH AND BOWEL: Unremarkable. No obstruction. No gross mural thickening. APPENDIX: Normal appendix. PERITONEUM: Unremarkable. No free fluid. No free air. LYMPH NODES: Unremarkable. No enlarged lymph nodes. BLADDER: Unremarkable. REPRODUCTIVE: Unremarkable. BONES: No acute fracture. OTHER FINDINGS: None. IMPRESSION: CT ANGIOGRAM ABDOMEN AND PELVIS: 1. Moderate stenosis of the both right and left renal artery is approximately 30 percent. 2. Abdominal aorta and the other major branches unremarkable. 3. Pelvic arteries unremarkable. LEFT LOWER EXTREMITY CT ANGIOGRAM: 1. Common femoral artery profunda femoral artery normal. 2. There is moderate stenosis of the proximal SFA severe stenosis of distal SFA. There is severe stenosis of the popliteal artery behind the knee with poststenotic dilatation. 3. Runoff shows patent anterior tibial artery with stenosis in the proximal segment. The posterior tibial artery evaluation is limited with calcification proximally. The distal RECONCILIATION ANALYST is patent. The peroneal artery is occluded the proximal segment and has distal reconstitution. RIGHT LOWER EXTREMITY CT ANGIOGRAM: 1. Common femoral artery profunda femoral artery normal. 2. Moderate stenosis of the proximal SFA. Occlusion of the distal SFA with no reconstitution. Popliteal artery is occluded. 3. Right runoff shows no appreciable flow in in the tibial vessels and peroneal artery.
--- NOTE | 2017-05-21 09:08 | PCM.IRP ---
History of Present Illness - History of Present Illness History of Present Illness: Full consult to follow. CTA reviewed: There is poor blood flow to the foot on the left and no appreciable flow to the foot on the right lower extremity. Pt will likely need revascularization to improve flow. LEFT LOWER EXTREMITY CT ANGIOGRAM: 1. Common femoral artery and profunda femoral artery normal. 2. There is moderate stenosis of the proximal SFA severe stenosis of distal SFA. There is severe stenosis of the popliteal artery behind the knee with poststenotic dilatation. 3. Runoff shows patent anterior tibial artery with stenosis in the proximal segment. The posterior tibial artery evaluation is limited with calcification proximally. The distal [employer] is patent. The peroneal artery is occluded in the proximal segment and has distal reconstitution. RIGHT LOWER EXTREMITY CT ANGIOGRAM: 1. Common femoral artery profunda femoral artery normal. 2. Moderate stenosis of the proximal SFA. Occlusion of the distal SFA with no reconstitution. Popliteal artery is occluded. 3. Right runoff shows no appreciable flow in in the tibial vessels and peroneal artery. Objective - Vital Signs/Intake and Output Vital Signs (last 24 hours): Vital Signs - 24 hr 05/20/17 05/20/17 05/20/17 09:34 13:04 16:26 Temperature 98.2 F 98.4 F Pulse Rate 83 80 83 Respiratory 18 18 Rate Blood Pressure 132/81 116/74 118/69 O2 Sat by Pulse 96 95 Oximetry 05/20/17 05/20/17 05/20/17 16:54 20:07 23:53 Temperature 97.3 F L 98.4 F Pulse Rate 80 83 98 H Respiratory 18 20 Rate Blood Pressure 116/74 136/87 148/91 H O2 Sat by Pulse 95 92 L Oximetry 05/21/17 05/21/17 05:15 08:04 Temperature 97.5 F L 98.3 F Pulse Rate 86 104 H Respiratory 18 18 Rate Blood Pressure 169/90 H 151/88 H O2 Sat by Pulse 95 95 Oximetry Intake and Output (last 12 hours): Intake & Output 05/20/17 05/21/17 05/21/17 18:59 06:59 18:59 Intake Total 900 Balance 900 Intake: Intake, Piggyback 100 Oral 800 Other: # Voids Urine, Voided 5 - Medications Medications: Current Medications Atorvastatin Calcium (Lipitor) 40 mg PO DAILY [facility] Last Admin: 05/20/17 09:35 Dose: 40 mg Dextrose (Dextrose 50% Inj) 0 ml IV STAT PRN; Protocol PRN Reason: Hyglycemia Protocol Dextrose (Glutose 15) 0 gm PO ONCE PRN; Protocol PRN Reason: Hypoglycemia Protocol Enalapril Maleate (Vasotec) 10 mg PO BID [facility] Last Admin: 05/21/17 08:49 Dose: 10 mg Enoxaparin Sodium (Lovenox) 40 mg SC DAILY [facility] PRN Reason: Protocol Last Admin: 05/21/17 08:50 Dose: 40 mg Glucagon (Glucagen Diagnostic Kit) 0 mg IM STAT PRN; Protocol PRN Reason: Hypoglycemia Protocol Piperacillin Sod/Tazobactam (Sod 3.375 gm/ Sodium Chloride) 100 mls @ 100 mls/ hr IVPB Q12 [facility] Last Admin: 05/21/17 08:49 Dose: 100 mls/hr Insulin Detemir (Levemir) 20 units SC QPM [facility] Last Admin: 05/20/17 18:41 Dose: 20 unit Insulin Detemir (Levemir) 15 units SC QAM [facility] Last Admin: 05/20/17 09:31 Dose: 15 units Insulin Human Regular (Humulin R) 0 units SC ACHS [facility] PRN Reason: Protocol Last Admin: 05/21/17 06:36 Dose: Not Given Metoprolol Tartrate (Lopressor) 25 mg PO BID [facility] Last Admin: 05/20/17 16:54 Dose: 25 mg Mirtazapine (Remeron) 7.5 mg PO HS [facility] Last Admin: 05/20/17 21:33 Dose: 7.5 mg Morphine Sulfate (Morphine) 2 mg IVP Q6 PRN PRN Reason: Pain, moderate (4-7) Tramadol HCl (Ultram) 100 mg PO Q6 PRN PRN Reason: Pain, severe (8-10) - Labs Labs (last 24 hours): Laboratory Results - last 24 hr 05/19/17 05/20/17 05/20/17 21:40 05:26 11:38 WBC RBC Hgb Hct MCV MCH MCHC RDW Plt Count Sodium Potassium Chloride Carbon Dioxide Anion Gap BUN Creatinine Est GFR ( Amer) Est GFR (Non-Af Amer) POC Glucose (mg/dL) 212 H 70 137 H Random Glucose Calcium Total Bilirubin AST ALT Alkaline Phosphatase Total Protein Albumin Globulin Albumin/Globulin Ratio Triglycerides Cholesterol LDL Cholesterol Direct HDL Cholesterol 05/20/17 05/20/17 05/21/17 16:07 21:23 05:10 WBC RBC Hgb Hct MCV MCH MCHC RDW Plt Count Sodium 142 Potassium 4.0 Chloride 109 H Carbon Dioxide 23 Anion Gap 14 BUN 17 Creatinine 1.7 H Est GFR ( Amer) 36 Est GFR (Non-Af Amer) 30 POC Glucose (mg/dL) 205 H 127 H Random Glucose 90 Calcium 9.1 Total Bilirubin 0.7 AST 67 H D ALT 58 H D Alkaline Phosphatase 91 Total Protein 6.6 Albumin 3.4 L Globulin 3.2 Albumin/Globulin Ratio 1.1 Triglycerides 87 Cholesterol 88 LDL Cholesterol Direct 41 HDL Cholesterol 28 L 05/21/17 05:10 WBC 10.4 RBC 3.94 Hgb 10.7 L Hct 32.5 L MCV 82.5 MCH 27.3 MCHC 33.1 RDW 16.1 H Plt Count 151 Sodium Potassium Chloride Carbon Dioxide Anion Gap BUN Creatinine Est GFR ( Amer) Est GFR (Non-Af Amer) POC Glucose (mg/dL) Random Glucose Calcium Total Bilirubin AST ALT Alkaline Phosphatase Total Protein Albumin Globulin Albumin/Globulin Ratio Triglycerides Cholesterol LDL Cholesterol Direct HDL Cholesterol
[2017-05-21] MEDS: Insulin Detemir 100 Units/ml Inj SC SCH ×2 (10:20→18:32)
--- NOTE | 2017-05-21 13:34 | CP.PCM.CON ---
History of Present Illness - History of Present Illness History of Present Illness: 66 yo F with PMH of DM2, HTN, HLD, UT 1.5 yrs ago, stroke 3 mo ago, chronic back pain due to fall 3 yrs ago with left lower extremity ulcer presented to the ED for evaluation of chronic would on left foot. Presented after an outpt MRI showed osteomyelitis. PMHx: DM2, HTN, HLD, [place], stroke, chronic back pain Allergies: NDKA Medications: atorvastatin 40, enalapril 10 bid, levemir 15u sc AM, levemir 20 sc PM, metoprolol 25 mg BID. States that she is compliant with medications. Past Hospitalizations: numerous times for "high sugar" for [place] for stroke Past Surgical History: none Past Trauma: slipped and fell down flight of stairs 3 yrs ago, has chronic back pain as a result Social Hx: former smoker (smoked 2cig/day for 40+ yrs, quit one year ago), denies occasional EtOH use, denies drug use (prescription painkillers, marijuana , cocaine, heroin). Lives with spouse in apartment on [address]th floor. Family Hx: mother [place] age 86 OBGYN Hx: (two sets of twins), no abortions/miscarriages. LMP 13-14 yrs ago. Foot Xray: Study reveals what appears to represent some localized irregularity along the superomedial border of the head of first metatarsal. Also some irregularity of the overlying soft tissues and possibly small amount of subcutaneous air. Findings suggest osteomyelitis in this location. CXR: mild pulmonary vascular congestive changes with bilateral lower lobe atelectasis and/or developing infiltrates. Suspect small bilateral effusions. Review of Systems - Review of Systems All systems: reviewed and no additional remarkable complaints except - Constitutional Constitutional: As Per HPI - EENT Eyes: absent: As Per HPI, Blind Spots, Blurred Vision, Change in Vision, Decreased Night Vision, Diplopia, Discharge, Dry Eye, Exophthalmos, Floaters, Irritation, Itchy Eyes, Loss of Peripheral Vision, Pain, Photophobia, Requires Corrective Lenses, Sees Flashes, Spots in Vision, Tunnel Vision, Other Visual Disturbances, Loss of Vision, Other Ears: absent: As Per HPI, Decreased Hearing, Ear Discharge, Ear Pain, Tinnitus, Abnormal Hearing, Disequilibrium, Dizziness, Other Nose/Mouth/Throat: absent: As Per HPI, Epistaxis, Nasal Congestion, Nasal Discharge, Nasal Obstruction, Nasal Trauma, Nose Pain, Post Nasal Drip, Sinus Pain, Sinus Pressure, Bleeding Gums, Change in Voice, Dental Pain, Dry Mouth, Dysphagia, Halitosis, Hoarsness, Lip Swelling, Mouth Lesions, Mouth Pain, Odynophagia, Sore Throat, Throat Swelling, Tongue Swelling, Facial Pain, Neck Pain, Neck Mass, Other - Breasts Breasts: absent: As Per HPI, Change in Shape, Mass, Pain, Nipple Discharge, Nipple Inversion, Skin Changes, Swelling, Other - Cardiovascular Cardiovascular: absent: As Per HPI, Acrocyanosis, Chest Pain, Chest Pain at Rest , Chest Pain with Activity, Claudication, Diaphoresis, Dyspnea, Dyspnea on Exertion, Edema, Irregular Heart Rhythm, Pain Radiating to Arm/Neck/Jaw, Leg Edema, Leg Ulcers, Lightheadedness, Orthopnea, Palpitations, Paroxysmal Nocturnal Dyspnea, Pedal Edema, Radiating Pain, Rapid Heart Rate, Slow Heart Rate, Syncope, Other - Respiratory Respiratory: absent: As Per HPI, Cough, Dyspnea, Hemoptysis, Dyspnea on Exertion , Wheezing, Snoring, Stridor, Pain on Inspiration, Chest Congestion, Excessive Mucous Production, Change in Mucous Color, Pain with Coughing, Other - Gastrointestinal Gastrointestinal: absent: As Per HPI, Abdominal Pain, Belching, Bloating, Change in Bowel Habits, Change in Stool Character, Coffee Ground Emesis, Constipation, Cramping, Diarrhea, Dyspepsia, Dysphagia, Early Satiety, Excessive Flatus, Fecal Incontinence, Heartburn, Hematemesis, Hematochezia, Loose Stools, Melena, Nausea, Odynophagia, Temesmus, Vomiting, Other - Genitourinary Genitourinary: absent: As Per HPI, Change in Urinary Stream, Difficulty Urinating, Dysuria, Flank Pain, Hematuria, Pyuria, Nocturia, Urinary Incontinence, Urinary Frequency, Urinary Hesitance, Urinary Urgency, Voiding Freq/Small Amts, Freq UTI, Hx Renal/Bladder Calculi, Hx /Renal Surgery, Bladder Distension, Other - Reproductive: Female Reproductive:Female: absent: As Per HPI, Amenorrhea, Amenorrhea/ Control, Currently Menstual, Cycle <21 Days, Cycle >35 Days, Cycle Variable, Menses 1-7 Days, Menses >/= 8 Days, Menses Variable, Cycle > 4 Weeks Between, No Menses for 6 Months, Heavy Menses, Light Menses, Normal Menses, Spotting Between Cycles , S/P Hysterectomy, Menopausal, Post Menopausal, Premenarche, Abnormal Vaginal Bleeding, Dysmenorrhea, Dyspareunia, Genital Lesions, Genital Pruritis, Pelvic Pain, Prolapse Symptoms, Sexual Dysfunction, Vaginal Discharge, Vaginal Dryness , Vaginal Odor, Vaginal Pruritis, Other - Menstruation Menstruation: absent: As Per HPI, Amenorrhea, Amenorrhea/ Control, Currently Menstual, Cycle <21 Days, Cycle >35 Days, Cycle Variable, Menses 1-7 Days, Menses >/= 8 Days, Menses Variable, Cycle > 4 Weeks Between, No Menses for 6 Months, Heavy Menses, Light Menses, Normal Menses, Spotting Between Cycles , S/P Hysterectomy, Menopausal, Post Menopausal, Premenarche, Abnormal Vaginal Bleeding, Dysmenorrhea, Other - Musculoskeletal Musculoskeletal: As Per HPI - Integumentary Integumentary: As Per HPI - Neurological Neurological: absent: As Per HPI, Abnormal Gait, Abnormal Hearing, Abnormal Movements, Abnormal Speech, Behavioral Changes, Burning Sensations, Confusion, Convulsions, Disequilibrium, Dizziness, Numbness, Focal Weakness, Frequent Falls , Headaches, Lack of Coordination, Loss of Vision, Memory Loss, Paresthesias, Radicular Pain, Restless Legs, Sensory Deficit, Syncope, Tingling, Tremor, Vertigo, Weakness, Other Visual Disturbances, Other - Psychiatric Psychiatric: absent: As Per HPI, Abnormal Sleep Pattern, Anhedonia, Anxiety, Auditory Hallucinations, Behavioral Changes, Change in Appetite, Change in Libido, Confusion, Depression, Difficulty Concentrating, Hallucinations, Homicidal Ideation, Hopelessness, Irritability, Memory Loss, Mood Swings, Panic Attacks, Paranoia, Suicidal Ideation, Visual Hallucinations, Tactile Hallucinations, Other - Endocrine Endocrine: absent: As Per HPI, Change in Body Appearance, Change in Libido, Cold Intolorance, Deepening of Voice, Excessive Sweating, Fatigue, Flushing, Heat Intolorance, Increase in Ring/Shoe/Hat Size, Palpitations, Polydipsia, Polyphagia, Polyuria, Other - Hematologic/Lymphatic Hematologic: absent: As Per HPI, Easy Bleeding, Easy Bruising, Lymphadenopathy, Other Past Patient History - Infectious Disease Hx of Infectious Diseases: None - Tetanus Immunizations Tetanus Immunization: Unknown - Past Medical History & Family History Past Medical History?: Yes - Past Social History Smoking Status: Former Smoker - CARDIAC Hx Cardiac Disorders: Yes Hx Hypercholesterolemia: Yes Hx Hypertension: Yes - PULMONARY Hx Respiratory Disorders: No - NEUROLOGICAL Hx Neurological Disorder: Yes HX Cerebrovascular Accident: Yes (left sided weakness) - HEENT Hx HEENT Problems: No - RENAL Hx Chronic Kidney Disease: No - ENDOCRINE/METABOLIC Hx Endocrine Disorders: Yes Hx Diabetes Mellitus Type 2: Yes - HEMATOLOGICAL/ONCOLOGICAL Hx Blood Disorders: No - INTEGUMENTARY Hx Dermatological Problems: No - MUSCULOSKELETAL/RHEUMATOLOGICAL Hx Musculoskeletal Disorders: Yes Hx Falls: Yes (fell 6 months ago) Other/Comment: hx of chronic back pain - GASTROINTESTINAL Hx Gastrointestinal Disorders: No - GENITOURINARY/GYNECOLOGICAL Hx Genitourinary Disorders: No - PSYCHIATRIC Hx Psychophysiologic Disorder: No Hx Substance Use: No - SURGICAL HISTORY Hx Surgeries: Yes Hx Section: Yes - ANESTHESIA Hx Anesthesia: Yes Hx Anesthesia Reactions: No Meds Allergies/Adverse Reactions: Allergies Allergy/AdvReac Type Severity Reaction Status Date / Time No Known Allergies Allergy Verified 05/14/16 14:21 - Medications Medications: Current Medications Atorvastatin Calcium (Lipitor) 40 mg PO DAILY [facility] Last Admin: 05/21/17 10:20 Dose: 40 mg Dextrose (Dextrose 50% Inj) 0 ml IV STAT PRN; Protocol PRN Reason: Hyglycemia Protocol Dextrose (Glutose 15) 0 gm PO ONCE PRN; Protocol PRN Reason: Hypoglycemia Protocol Enalapril Maleate (Vasotec) 10 mg PO BID [facility] Last Admin: 05/21/17 08:49 Dose: 10 mg Enoxaparin Sodium (Lovenox) 40 mg SC DAILY [facility] PRN Reason: Protocol Last Admin: 05/21/17 08:50 Dose: 40 mg Glucagon (Glucagen Diagnostic Kit) 0 mg IM STAT PRN; Protocol PRN Reason: Hypoglycemia Protocol Piperacillin Sod/Tazobactam (Sod 3.375 gm/ Sodium Chloride) 100 mls @ 100 mls/ hr IVPB Q12 [facility] Last Admin: 05/21/17 08:49 Dose: 100 mls/hr Insulin Detemir (Levemir) 20 units SC QPM [facility] Last Admin: 05/20/17 18:41 Dose: 20 unit Insulin Detemir (Levemir) 15 units SC QAM [facility] Last Admin: 05/21/17 10:20 Dose: Not Given Insulin Human Regular (Humulin R) 0 units SC ACHS [facility] PRN Reason: Protocol Last Admin: 05/21/17 06:36 Dose: Not Given Metoprolol Tartrate (Lopressor) 25 mg PO BID [facility] Last Admin: 05/21/17 10:19 Dose: 25 mg Mirtazapine (Remeron) 7.5 mg PO HS [facility] Last Admin: 05/20/17 21:33 Dose: 7.5 mg Morphine Sulfate (Morphine) 2 mg IVP Q6 PRN PRN Reason: Pain, moderate (4-7) Tramadol HCl (Ultram) 100 mg PO Q6 PRN PRN Reason: Pain, severe (8-10) Physical Exam - Constitutional Appears: Non-toxic, Chronically Ill - Head Exam Head Exam: NORMOCEPHALIC - Eye Exam Eye Exam: PERRL. absent: Scleral icterus - ENT Exam ENT Exam: Mucous Membranes Dry, Normal External Ear Exam - Neck Exam Neck exam: Negative for: Lymphadenopathy - Respiratory Exam Respiratory Exam: Decreased Breath Sounds, Clear to Auscultation Bilateral - Cardiovascular Exam Cardiovascular Exam: REGULAR RHYTHM - GI/Abdominal Exam GI & Abdominal Exam: Diminished Bowel Sounds, Soft. absent: Tenderness - Rectal Exam Rectal Exam: Deferred - Exam Exam: NORMAL INSPECTION - Extremities Exam Extremities exam: Positive for: pedal edema, tenderness, pedal pulses present. Negative for: calf tenderness - Back Exam Back exam: absent: CVA tenderness (L), CVA tenderness (R) - Neurological Exam Neurological exam: Alert, CN II-XII Intact, Oriented x3, Reflexes Normal - Psychiatric Exam Psychiatric exam: Normal Mood - Skin Skin Exam: Dry, Intact Results - Vital Signs Recent Vital Signs: Last Vital Signs Temp 98.1 F 05/21/17 12:00 Pulse 81 05/21/17 12:00 Resp 18 05/21/17 12:00 BP 130/80 05/21/17 12:00 Pulse Ox 96 05/21/17 12:00 - Labs Result Diagrams: 05/21/17 05:10 05/21/17 05:10 Labs: Laboratory Results - last 24 hr 05/19/17 05/20/17 05/20/17 21:40 05:26 11:38 WBC RBC Hgb Hct MCV MCH MCHC RDW Plt Count Sodium Potassium Chloride Carbon Dioxide Anion Gap BUN Creatinine Est GFR ( Amer) Est GFR (Non-Af Amer) POC Glucose (mg/dL) 212 H 70 137 H Random Glucose Hemoglobin A1c Calcium Total Bilirubin AST ALT Alkaline Phosphatase Total Protein Albumin Globulin Albumin/Globulin Ratio Triglycerides Cholesterol LDL Cholesterol Direct HDL Cholesterol 05/20/17 05/20/17 05/21/17 16:07 21:23 05:10 WBC RBC Hgb Hct MCV MCH MCHC RDW Plt Count Sodium 142 Potassium 4.0 Chloride 109 H Carbon Dioxide 23 Anion Gap 14 BUN 17 Creatinine 1.7 H Est GFR ( Amer) 36 Est GFR (Non-Af Amer) 30 POC Glucose (mg/dL) 205 H 127 H Random Glucose 90 Hemoglobin A1c Calcium 9.1 Total Bilirubin 0.7 AST 67 H D ALT 58 H D Alkaline Phosphatase 91 Total Protein 6.6 Albumin 3.4 L Globulin 3.2 Albumin/Globulin Ratio 1.1 Triglycerides 87 Cholesterol 88 LDL Cholesterol Direct 41 HDL Cholesterol 28 L 05/21/17 05/21/17 05:10 05:10 WBC 10.4 RBC 3.94 Hgb 10.7 L Hct 32.5 L MCV 82.5 MCH 27.3 MCHC 33.1 RDW 16.1 H Plt Count 151 Sodium Potassium Chloride Carbon Dioxide Anion Gap BUN Creatinine Est GFR ( Amer) Est GFR (Non-Af Amer) POC Glucose (mg/dL) Random Glucose Hemoglobin A1c 7.3 H D Calcium Total Bilirubin AST ALT Alkaline Phosphatase Total Protein Albumin Globulin Albumin/Globulin Ratio Triglycerides Cholesterol LDL Cholesterol Direct HDL Cholesterol Assessment & Plan (1) Osteomyelitis Status: Acute (2) Osteomyelitis Status: Acute (3) Diabetic foot ulcer Status: Acute - Assessment and Plan (Free Text) Assessment: consider OR/ bone biopsy cont iv antibiotics may need 6-8 weeks IV rx
--- NOTE | 2017-05-21 16:47 | CP.PCM.PN ---
Subjective - Date & Time of Evaluation Date of Evaluation: 05/21/17 Time of Evaluation: 07:50 - Subjective Subjective: Pt was seen and evaluated at bedside, did not appear anxious at this time, appeared comfortable. No acute events overnight. Denied shortness of breath, chest pain, abdominal pain, leg/calf pain/swelling, denies changes in pain at left extremity. Pt was made aware that she is going to be getting a procedure next week. Objective - Vital Signs/Intake and Output Vital Signs (last 24 hours): Temp Pulse Resp BP Pulse Ox 98.2 F 78 20 126/79 96 05/21/17 16:00 05/21/17 16:31 05/21/17 16:00 05/21/17 16:31 05/21/17 16:00 Intake and Output: 05/21/17 05/21/17 06:59 18:59 Intake Total 900 Balance 900 - Medications Medications: Current Medications Atorvastatin Calcium (Lipitor) 40 mg PO DAILY [facility] Last Admin: 05/21/17 10:20 Dose: 40 mg Dextrose (Dextrose 50% Inj) 0 ml IV STAT PRN; Protocol PRN Reason: Hyglycemia Protocol Dextrose (Glutose 15) 0 gm PO ONCE PRN; Protocol PRN Reason: Hypoglycemia Protocol Enalapril Maleate (Vasotec) 10 mg PO BID [facility] Last Admin: 05/21/17 16:25 Dose: 10 mg Enoxaparin Sodium (Lovenox) 40 mg SC DAILY [facility] PRN Reason: Protocol Last Admin: 05/21/17 08:50 Dose: 40 mg Glucagon (Glucagen Diagnostic Kit) 0 mg IM STAT PRN; Protocol PRN Reason: Hypoglycemia Protocol Piperacillin Sod/Tazobactam (Sod 3.375 gm/ Sodium Chloride) 100 mls @ 100 mls/ hr IVPB Q12 [facility] Last Admin: 05/21/17 08:49 Dose: 100 mls/hr Insulin Detemir (Levemir) 20 units SC QPM [facility] Last Admin: 05/20/17 18:41 Dose: 20 unit Insulin Detemir (Levemir) 15 units SC QAM [facility] Last Admin: 05/21/17 10:20 Dose: Not Given Insulin Human Regular (Humulin R) 0 units SC ACHS [facility] PRN Reason: Protocol Last Admin: 05/21/17 16:23 Dose: 2 unit Metoprolol Tartrate (Lopressor) 25 mg PO BID [facility] Last Admin: 05/21/17 16:31 Dose: 25 mg Mirtazapine (Remeron) 7.5 mg PO HS [facility] Last Admin: 05/20/17 21:33 Dose: 7.5 mg Morphine Sulfate (Morphine) 2 mg IVP Q6 PRN PRN Reason: Pain, moderate (4-7) Tramadol HCl (Ultram) 100 mg PO Q6 PRN PRN Reason: Pain, severe (8-10) - Labs Labs: 05/21/17 05:10 05/21/17 05:10 PT 13.1 Seconds (9.8-13.1) 05/20/17 06:00 INR 1.2 (0.9-1.2) 05/20/17 06:00 APTT 34.8 Seconds (25.6-37.1) 05/20/17 06:00 - Constitutional Appears: Non-toxic, No Acute Distress - Head Exam Head Exam: ATRAUMATIC - Eye Exam Eye Exam: EOMI, Normal appearance - ENT Exam ENT Exam: Mucous Membranes Moist - Respiratory Exam Respiratory Exam: Clear to Ausculation Bilateral, NORMAL BREATHING PATTERN - Cardiovascular Exam Cardiovascular Exam: REGULAR RHYTHM, +S1, +S2 - GI/Abdominal Exam GI & Abdominal Exam: Normal Bowel Sounds - Extremities Exam Additional comments: ulcer at first metatarsal on LLE, as on admission pedal pulses palpable, but faint - Neurological Exam Neurological Exam: Awake, Oriented x3 - Psychiatric Exam Psychiatric exam: Normal Mood - Skin Skin Exam: Normal Color Assessment and Plan - Assessment and Plan (Free Text) Assessment: 66 yo F with PMH DM2, HTN, HLD, MS, CVA admitted due to most likely osteomyelitis in left lower extremity at first metatarsal, found to have severe arterial disease in both extremities. Plan: 1) Osteomyelitis -podiatry consulted; further intervention regarding osteomyelitis by podiatry team -LE Doppler: Mild arterial disease is suggested at the proximal to mid leg from left groin to knee with potentially severe arterial disease in the runoff below the knee. Follow up MR or CT angiography is advised with contrast (see 2) peripheral arterial disease.) -Xray Foot: Study reveals what appears to represent some localized irregularity along the superomedial border of the head of first metatarsal. Also some irregularity of the overlying soft tissues and possibly small amount of subcutaneous air. Findings suggest osteomyelitis in this location. -Zosyn 3.375gm Q12, Day 3 -F/u CBC, CMP, PT/INR/PTT -Tramadol for pain Q6 PRN -ID consult: continue IV antibiotics 2) Peripheral Arterial Disease -CT angio showed severe disease: there is poor blood flow to the foot on the left, and no appreciable flow to the foot on the right lower extremity. Pt will likely need revascularization to improve flow. -Dr. Castro plan to take pt to [facility] next week, Wednesday, for revascularization procedure -Need cardiology clearance for this procedure; cardiology consult placed 3) Diabetes Mellitus Type 2 -Monitor glucose with fingersticks -Continue home meds: levemir 15u QAM, 20u QPM -A1C 7.3 -Check urine microalbumin -Diabetic diet -Hyperglycemia protocol in place 4)Hypertension -Controlled, continue home meds: enalapril, metoprolol -Monitor BP 5)Hyperlipidemia -Continue home meds: atorvastatin -Total cholesterol 88, LDL 41, HDL 28 6) Anxiety -Seen by psychiatrist -Continue remeron for anxiety 7)DVT prophylaxis -Lovenox 40 mg SC daily
--- NOTE | 2017-05-21 22:33 | CP.PCM.CON ---
History of Present Illness - History of Present Illness History of Present Illness: Pt admitted for LE pain and osteo. She was noted to have PVD in her LLE and is scheduled for PVI in near future. Cardiac eval is for surg risk assessment. Pt states she has been experiencing increased ABREU over past 4 days. She denies cp, palp, syncope, n/v/d/c, LH, syncope. Pt denies JAH or orthopnea. She states she had an ME several years ago and a stroke several months ago. both treated at [facility] [place]. She has not followed up with cardiovascular doctor. She was not on antiplt therapy. Pt has a hx of dm, htn, dyslipidemia. prior tobacco hx. she is unsure of fam hx. Pt denies cardiac cath, st or echo. EF is unknown at this time. Review of Systems - Constitutional Constitutional: absent: As Per HPI, Anorexia, Chills, Daytime Sleepiness, Excessive Sweating, Fatigue, Fever, Frequent Falls, Headache, Increased Appetite , Lethargy, Malaise, Night Sweats, Snoring, Sleep Apnea, Weight Gain, Weight Loss, Weakness, Other - EENT Eyes: absent: As Per HPI, Blind Spots, Blurred Vision, Change in Vision, Decreased Night Vision, Diplopia, Discharge, Dry Eye, Exophthalmos, Floaters, Irritation, Itchy Eyes, Loss of Peripheral Vision, Pain, Photophobia, Requires Corrective Lenses, Sees Flashes, Spots in Vision, Tunnel Vision, Other Visual Disturbances, Loss of Vision, Other Ears: absent: As Per HPI, Decreased Hearing, Ear Discharge, Ear Pain, Tinnitus, Abnormal Hearing, Disequilibrium, Dizziness, Other Nose/Mouth/Throat: absent: As Per HPI, Epistaxis, Nasal Congestion, Nasal Discharge, Nasal Obstruction, Nasal Trauma, Nose Pain, Post Nasal Drip, Sinus Pain, Sinus Pressure, Bleeding Gums, Change in Voice, Dental Pain, Dry Mouth, Dysphagia, Halitosis, Hoarsness, Lip Swelling, Mouth Lesions, Mouth Pain, Odynophagia, Sore Throat, Throat Swelling, Tongue Swelling, Facial Pain, Neck Pain, Neck Mass, Other - Breasts Breasts: absent: As Per HPI, Change in Shape, Mass, Pain, Nipple Discharge, Nipple Inversion, Skin Changes, Swelling, Other - Cardiovascular Cardiovascular: As Per HPI, Dyspnea, Dyspnea on Exertion. absent: Acrocyanosis , Chest Pain, Chest Pain at Rest, Chest Pain with Activity, Claudication, Diaphoresis, Edema, Irregular Heart Rhythm, Pain Radiating to Arm/Neck/Jaw, Leg Edema, Leg Ulcers, Lightheadedness, Orthopnea, Palpitations, Paroxysmal Nocturnal Dyspnea, Pedal Edema, Radiating Pain, Rapid Heart Rate, Slow Heart Rate, Syncope, Other - Respiratory Respiratory: As Per HPI, Dyspnea on Exertion. absent: Cough, Dyspnea, Hemoptysis, Wheezing, Snoring, Stridor, Pain on Inspiration, Chest Congestion, Excessive Mucous Production, Change in Mucous Color, Pain with Coughing, Other - Gastrointestinal Gastrointestinal: absent: As Per HPI, Abdominal Pain, Belching, Bloating, Change in Bowel Habits, Change in Stool Character, Coffee Ground Emesis, Constipation, Cramping, Diarrhea, Dyspepsia, Dysphagia, Early Satiety, Excessive Flatus, Fecal Incontinence, Heartburn, Hematemesis, Hematochezia, Loose Stools, Melena, Nausea, Odynophagia, Temesmus, Vomiting, Other - Genitourinary Genitourinary: absent: As Per HPI, Change in Urinary Stream, Difficulty Urinating, Dysuria, Flank Pain, Hematuria, Pyuria, Nocturia, Urinary Incontinence, Urinary Frequency, Urinary Hesitance, Urinary Urgency, Voiding Freq/Small Amts, Freq UTI, Hx Renal/Bladder Calculi, Hx /Renal Surgery, Bladder Distension, Other - Reproductive: Female Reproductive:Female: Post Menopausal. absent: As Per HPI, Amenorrhea, Amenorrhea/ Control, Currently Menstual, Cycle <21 Days, Cycle >35 Days, Cycle Variable, Menses 1-7 Days, Menses >/= 8 Days, Menses Variable, Cycle > 4 Weeks Between, No Menses for 6 Months, Heavy Menses, Light Menses, Normal Menses , Spotting Between Cycles, S/P Hysterectomy, Menopausal, Premenarche, Abnormal Vaginal Bleeding, Dysmenorrhea, Dyspareunia, Genital Lesions, Genital Pruritis, Pelvic Pain, Prolapse Symptoms, Sexual Dysfunction, Vaginal Discharge, Vaginal Dryness, Vaginal Odor, Vaginal Pruritis, Other - Menstruation Menstruation: absent: As Per HPI, Amenorrhea, Amenorrhea/ Control, Currently Menstual, Cycle <21 Days, Cycle >35 Days, Cycle Variable, Menses 1-7 Days, Menses >/= 8 Days, Menses Variable, Cycle > 4 Weeks Between, No Menses for 6 Months, Heavy Menses, Light Menses, Normal Menses, Spotting Between Cycles , S/P Hysterectomy, Menopausal, Post Menopausal, Premenarche, Abnormal Vaginal Bleeding, Dysmenorrhea, Other - Musculoskeletal Musculoskeletal: absent: As Per HPI, Abnormal Gait, Arthralgias, Atrophy, Back Pain, Deformity, Joint Swelling, Limited Range of Motion, Loss of Height, Muscle Cramps, Muscle Weakness, Myalgias, Neck Pain, Numbness, Radiating Pain into Limb, Stiffness, Tingling, Other Additional comments: pain in left foot - Integumentary Integumentary: absent: As Per HPI, Acne, Alopecia, Bleeding Lesions, Change in Hair, Change in Nails, Change in Pigmentation, Changing Lesions, Dry Skin, Erythema, Furuncle, Hirsutism, Lesions, New Lesions, Non-Healing Lesions, Photosensitivity, Pruritus, Rash, Skin Pain, Skin Ulcer, Sores, Striae, Swelling , Unusual Bruising, Wounds, Jaundice, Other - Neurological Neurological: absent: As Per HPI, Abnormal Gait, Abnormal Hearing, Abnormal Movements, Abnormal Speech, Behavioral Changes, Burning Sensations, Confusion, Convulsions, Disequilibrium, Dizziness, Numbness, Focal Weakness, Frequent Falls , Headaches, Lack of Coordination, Loss of Vision, Memory Loss, Paresthesias, Radicular Pain, Restless Legs, Sensory Deficit, Syncope, Tingling, Tremor, Vertigo, Weakness, Other Visual Disturbances, Other - Psychiatric Psychiatric: absent: As Per HPI, Abnormal Sleep Pattern, Anhedonia, Anxiety, Auditory Hallucinations, Behavioral Changes, Change in Appetite, Change in Libido, Confusion, Depression, Difficulty Concentrating, Hallucinations, Homicidal Ideation, Hopelessness, Irritability, Memory Loss, Mood Swings, Panic Attacks, Paranoia, Suicidal Ideation, Visual Hallucinations, Tactile Hallucinations, Other - Endocrine Endocrine: absent: As Per HPI, Change in Body Appearance, Change in Libido, Cold Intolorance, Deepening of Voice, Excessive Sweating, Fatigue, Flushing, Heat Intolorance, Increase in Ring/Shoe/Hat Size, Palpitations, Polydipsia, Polyphagia, Polyuria, Other - Hematologic/Lymphatic Hematologic: absent: As Per HPI, Easy Bleeding, Easy Bruising, Lymphadenopathy, Other Past Patient History - Infectious Disease Hx of Infectious Diseases: None - Tetanus Immunizations Tetanus Immunization: Unknown - Past Medical History & Family History Past Medical History?: Yes - Past Social History Smoking Status: Former Smoker Chewing Tobacco Use: No Cigar Use: No Alcohol: None Drugs: Denies Home Situation {Lives}: With Family Domestic Violence: Negative - CARDIAC Hx Cardiac Disorders: Yes Hx Hypercholesterolemia: Yes Hx Hypertension: Yes - PULMONARY Hx Respiratory Disorders: No - NEUROLOGICAL Hx Neurological Disorder: Yes HX Cerebrovascular Accident: Yes (left sided weakness) - HEENT Hx HEENT Problems: No - RENAL Hx Chronic Kidney Disease: No - ENDOCRINE/METABOLIC Hx Endocrine Disorders: Yes Hx Diabetes Mellitus Type 2: Yes - HEMATOLOGICAL/ONCOLOGICAL Hx Blood Disorders: No - INTEGUMENTARY Hx Dermatological Problems: No - MUSCULOSKELETAL/RHEUMATOLOGICAL Hx Musculoskeletal Disorders: Yes Hx Falls: Yes (fell 6 months ago) Other/Comment: hx of chronic back pain - GASTROINTESTINAL Hx Gastrointestinal Disorders: No - GENITOURINARY/GYNECOLOGICAL Hx Genitourinary Disorders: No - PSYCHIATRIC Hx Psychophysiologic Disorder: No Hx Substance Use: No - SURGICAL HISTORY Hx Surgeries: Yes Hx Section: Yes - ANESTHESIA Hx Anesthesia: Yes Hx Anesthesia Reactions: No Meds Allergies/Adverse Reactions: Allergies Allergy/AdvReac Type Severity Reaction Status Date / Time No Known Allergies Allergy Verified 05/14/16 14:21 - Medications Medications: Current Medications Aspirin (Aspirin) 325 mg PO DAILY [facility] Last Admin: 05/21/17 18:31 Dose: 325 mg Atorvastatin Calcium (Lipitor) 40 mg PO DAILY [facility] Last Admin: 05/21/17 10:20 Dose: 40 mg Clopidogrel Bisulfate (Plavix) 75 mg PO DAILY [facility] Dextrose (Dextrose 50% Inj) 0 ml IV STAT PRN; Protocol PRN Reason: Hyglycemia Protocol Dextrose (Glutose 15) 0 gm PO ONCE PRN; Protocol PRN Reason: Hypoglycemia Protocol Enoxaparin Sodium (Lovenox) 40 mg SC DAILY [facility] PRN Reason: Protocol Last Admin: 05/21/17 08:50 Dose: 40 mg Glucagon (Glucagen Diagnostic Kit) 0 mg IM STAT PRN; Protocol PRN Reason: Hypoglycemia Protocol Piperacillin Sod/Tazobactam (Sod 3.375 gm/ Sodium Chloride) 100 mls @ 100 mls/ hr IVPB Q12 [facility] Last Admin: 05/21/17 20:45 Dose: 100 mls/hr Insulin Detemir (Levemir) 20 units SC QPM [facility] Last Admin: 05/21/17 18:32 Dose: 20 unit Insulin Detemir (Levemir) 15 units SC QAM [facility] Last Admin: 05/21/17 10:20 Dose: Not Given Insulin Human Regular (Humulin R) 0 units SC ACHS [facility] PRN Reason: Protocol Last Admin: 05/21/17 16:23 Dose: 2 unit Metoprolol Tartrate (Lopressor) 25 mg PO Q6 [facility] Last Admin: 05/21/17 21:33 Dose: 25 mg Mirtazapine (Remeron) 7.5 mg PO HS [facility] Last Admin: 05/21/17 21:33 Dose: 7.5 mg Morphine Sulfate (Morphine) 2 mg IVP Q6 PRN PRN Reason: Pain, moderate (4-7) Ramipril (Altace) 10 mg PO DAILY [facility] Tramadol HCl (Ultram) 100 mg PO Q12 PRN PRN Reason: Pain, severe (8-10) Physical Exam - Constitutional Appears: Well - Head Exam Head Exam: ATRAUMATIC, NORMAL INSPECTION, NORMOCEPHALIC - Eye Exam Eye Exam: EOMI, Normal appearance, PERRL. absent: Conjunctival injection, Nystagmus, Periorbital swelling, Periorbital tenderness, Scleral icterus Pupil Exam: NORMAL ACCOMODATION, PERRL. absent: Fixed, Irregular, Miosis, Mydriatic, Unequal - ENT Exam ENT Exam: Mucous Membranes Moist, Normal Exam. absent: Mucous Membranes Dry, Normal External Ear Exam, Normal Oropharynx, TM's Normal Bilaterally - Neck Exam Neck exam: Positive for: Normal Inspection. Negative for: Full Rom, Lymphadenopathy, Meningismus, Tenderness, Thyromegaly - Respiratory Exam Respiratory Exam: Decreased Breath Sounds, Rales, NORMAL BREATHING PATTERN. absent: Accessory Muscle Use, Chest Wall Tenderness, Prolonged Expiratory Phase , Rhonchi, Wheezes, Respiratory Distress, Stridor Additional comments: rales and decreased bibasilar bs - Cardiovascular Exam Cardiovascular Exam: REGULAR RHYTHM, +S1, +S2, Systolic Murmur. absent: Bradycardia, Tachycardia, Clicks, Diastolic murmur, Gallop, Irregular Rhythm, JVD, RRR, Rubs, +S4 - GI/Abdominal Exam GI & Abdominal Exam: Normal Bowel Sounds, Soft. absent: Bruit, Diminished Bowel Sounds, Distended, Firm, Guarding, Hernia, Hyperactive Bowel Sounds, Hypoactive Bowel Sounds, Mass, Organomegaly, Pulsatile Mass, Rebound, Rigid, Tenderness - Rectal Exam Rectal Exam: Deferred - Extremities Exam Additional comments: decreased pulses on left LE. 1-2+ on right. - Back Exam Back exam: NORMAL INSPECTION. absent: CVA tenderness (L), CVA tenderness (R), FULL ROM, muscle spasm, paraspinal tenderness, rash noted, tenderness, vertebral tenderness - Neurological Exam Neurological exam: Alert, CN II-XII Intact, Oriented x3, Reflexes Normal - Psychiatric Exam Psychiatric exam: Normal Affect, Normal Mood - Skin Skin Exam: Dry, Intact, Normal Color, Warm Results - Vital Signs Recent Vital Signs: Last Vital Signs Temp 98 F 05/21/17 20:12 Pulse 89 05/21/17 21:33 Resp 16 05/21/17 20:12 BP 126/76 05/21/17 21:33 Pulse Ox 100 05/21/17 20:12 - Labs Result Diagrams: 05/21/17 05:10 05/21/17 05:10 Labs: Laboratory Results - last 24 hr 05/19/17 05/20/17 05/20/17 21:40 05:26 11:38 WBC RBC Hgb Hct MCV MCH MCHC RDW Plt Count Sodium Potassium Chloride Carbon Dioxide Anion Gap BUN Creatinine Est GFR ( Amer) Est GFR (Non-Af Amer) POC Glucose (mg/dL) 212 H 70 137 H Random Glucose Hemoglobin A1c Calcium Total Bilirubin AST ALT Alkaline Phosphatase Total Protein Albumin Globulin Albumin/Globulin Ratio Triglycerides Cholesterol LDL Cholesterol Direct HDL Cholesterol 05/20/17 05/20/17 05/21/17 16:07 21:23 05:02 WBC RBC Hgb Hct MCV MCH MCHC RDW Plt Count Sodium Potassium Chloride Carbon Dioxide Anion Gap BUN Creatinine Est GFR ( Amer) Est GFR (Non-Af Amer) POC Glucose (mg/dL) 205 H 127 H 48 L Random Glucose Hemoglobin A1c Calcium Total Bilirubin AST ALT Alkaline Phosphatase Total Protein Albumin Globulin Albumin/Globulin Ratio Triglycerides Cholesterol LDL Cholesterol Direct HDL Cholesterol 05/21/17 05/21/17 05/21/17 05:10 05:10 05:10 WBC 10.4 RBC 3.94 Hgb 10.7 L Hct 32.5 L MCV 82.5 MCH 27.3 MCHC 33.1 RDW 16.1 H Plt Count 151 Sodium 142 Potassium 4.0 Chloride 109 H Carbon Dioxide 23 Anion Gap 14 BUN 17 Creatinine 1.7 H Est GFR ( Amer) 36 Est GFR (Non-Af Amer) 30 POC Glucose (mg/dL) Random Glucose 90 Hemoglobin A1c 7.3 H D Calcium 9.1 Total Bilirubin 0.7 AST 67 H D ALT 58 H D Alkaline Phosphatase 91 Total Protein 6.6 Albumin 3.4 L Globulin 3.2 Albumin/Globulin Ratio 1.1 Triglycerides 87 Cholesterol 88 LDL Cholesterol Direct 41 HDL Cholesterol 28 L 05/21/17 05/21/17 05/21/17 05:40 11:16 16:03 WBC RBC Hgb Hct MCV MCH MCHC RDW Plt Count Sodium Potassium Chloride Carbon Dioxide Anion Gap BUN Creatinine Est GFR ( Amer) Est GFR (Non-Af Amer) POC Glucose (mg/dL) 110 64 L 166 H Random Glucose Hemoglobin A1c Calcium Total Bilirubin AST ALT Alkaline Phosphatase Total Protein Albumin Globulin Albumin/Globulin Ratio Triglycerides Cholesterol LDL Cholesterol Direct HDL Cholesterol 05/21/17 21:28 WBC RBC Hgb Hct MCV MCH MCHC RDW Plt Count Sodium Potassium Chloride Carbon Dioxide Anion Gap BUN Creatinine Est GFR ( Amer) Est GFR (Non-Af Amer) POC Glucose (mg/dL) 286 H Random Glucose Hemoglobin A1c Calcium Total Bilirubin AST ALT Alkaline Phosphatase Total Protein Albumin Globulin Albumin/Globulin Ratio Triglycerides Cholesterol LDL Cholesterol Direct HDL Cholesterol - EKG Data EKG Interpreted by: Myself EKG shows normal: Sinus rhythm - EKG Data EKG comments: sr with nonspecific st twave abn [id number]. Assessment & Plan (1) PVD (peripheral vascular disease) Status: Acute (2) SOB (shortness of breath) Status: Acute (3) Hx of myocardial infarction Status: Chronic (4) History of CVA (cerebrovascular accident) Status: Chronic (5) HTN (hypertension) Status: Chronic (6) Dyslipidemia Status: Chronic (7) History of tobacco abuse Status: Chronic (8) Osteomyelitis Status: Acute (9) Diabetic foot ulcer Status: Acute (10) Uncontrolled diabetes mellitus Status: Acute - Assessment and Plan (Free Text) Plan: PT IS NOT CLEARED FOR VASCULAR PROCEDURE. PT HAS SX OF SOB. HER EKG IS ABN, SHE HAS A HX OF ME, CAD, PVD AND CVA. PT NEEDS AND ECHO TO EVAL EF AND ST TO EVAL FOR ISCHEMIA. RISK ASSESSMENT ONCE ABOVE COMPLETED I STARTED ANTIPLT THERAPY WHICH IS NEEDED FOR CAD, AND PVD BOTH HX AND ACTIVE DISEASE. INCREASED METOPROLOL TO 25 Q6 CHANGED SHABBIR TO RAMIPRIL MONITOR CR AND LYTES SUGGEST LIMITING DYE GIVEN CR DURING PVI CONSIDER RENAL EVAL GIVEN CR 90 MIN TOTAL CARE
[2017-05-22] MEDS: Insulin Regular 100 units/ml SC SCH ×4 (06:41→21:57)
[2017-05-22 07:59] LABS: ALB/GLOB RATIO 1.1 (1.0-2.1); BILIRUBIN,TOTAL 0.6 mg/dl (0.2-1.3); CALCIUM 9.2 mg/dL (8.4-10.2); MAGNESIUM 2.2 MG/DL (1.6-2.3); POTASSIUM 4.7 MMOL/L (3.6-5.0); TOTAL PROTEIN 6.5 G/DL (6.3-8.2)
[2017-05-22 08:27] LABS: THYROID STIMULATING HORMONE 0.67 mIU/ML (0.46-4.68)
[2017-05-22] MEDS ORDERED: Sodium Chloride 0.9% 1,000 ML IV SCH (08:30)
[2017-05-22] MEDS: Insulin Detemir 100 Units/ml Inj SC SCH ×2 (10:11→17:31)
[2017-05-22] MEDS: Enoxaparin 40 mg Syringe SC SCH (10:15)
[2017-05-22] MEDS: Piperacillin/Tazobact 3.375 GM in Sodium Chloride 0.9% 100 ML IVPB SCH ×2 (10:16→21:09)
--- NOTE | 2017-05-22 11:42 | CARD ---
APPROVED REPORT EXAM: Two-dimensional and M-mode echocardiogram with Doppler and color Doppler. Other Information Quality : ExcellentRhythm : NSR INDICATION LV Function:SystolicDiastolic 2D DIMENSIONS IVSd1.02 (0.7-1.1cm)LVDd4.76 (3.9-5.9cm) LVOT Diameter1.89 (1.8-2.4cm)PWd0.38 (0.7-1.1cm) IVSs1.15 (0.8-1.2cm)LVDs4.47 (2.5-4.0cm) FS (%) 6.1 %PWs0.60 (0.8-1.2cm) M-Mode DIMENSIONS Left Atrium (MM)5.35 (2.5-4.0cm)IVSd0.68 (0.7-1.1cm) Aortic Root3.00 (2.2-3.7cm)LVDd6.41 (4.0-5.6cm) Aortic Cusp Exc.1.35 (1.5-2.0cm)PWd0.76 (0.7-1.1cm) IVSs0.74 cmFS (%) 15 % LVDs5.44 (2.0-3.8cm)PWs0.94 cm Mitral Valve MV E Dbbezleu43.3cm/sMV DECEL [id number] A Nwoqrxkm66.1cm/s MV [id number] ratio2.9MVA (PHT)6.54cm2 TDI E/Lateral E'0.0E/Medial E'0.0 Pulmonary Valve PV Peak Isxdaefr64.1cm/s Tricuspid Valve TR Peak [id number] [id number] Peak Gr.38mmHg [id number] LEFT VENTRICLE The Left Ventricle is moderately dilated. There is borderline concentric left ventricular hypertrophy on the 2D study. Left ventricle systolic function is severely impaired. The Ejection Fraction is - 20%. global severe hypokinesia Transmitral Doppler flow pattern is Grade II-pseudonormal filling dynamics. No left ventricle thrombus noted on this study. There is no ventricular septal defect visualized. There is no left ventricular aneurysm. There is no mass noted in the left ventricle. RIGHT VENTRICLE The right ventricle is mildly dilated. There is normal right ventricular wall thickness. The right ventricular systolic function is normal. ATRIA The left atrium is moderately dilated. There is no thrombus suspected in the left atrium. The right atrium is mildly to moderately dilated. The interatrial septum is intact with no evidence for an atrial septal defect. AORTIC VALVE The aortic valve is normal in structure and function. No aortic regurgitation is present. There is no aortic valvular stenosis. MITRAL VALVE The mitral valve is normal in structure and function. There is no evidence of mitral valve prolapse. There is no mitral valve stenosis. Mitral regurgitation is moderate. TRICUSPID VALVE The tricuspid valve is normal in structure and function. There is moderate tricuspid regurgitation. Right ventricular systolic pressure is estimated at 50 mmHg. There is no tricuspid valve prolapse or vegetation. There is no tricuspid valve stenosis. PULMONIC VALVE The pulmonic valve is not well visualized. There is mild pulmonic valvular regurgitation. GREAT VESSELS The aortic root is normal in size. The IVC collapses <50% with inspiration. PERICARDIAL EFFUSION There is a small posterior pericardial effusion. There is a small pleural effusion. <Conclusion> The Left Ventricle is moderately dilated. There is borderline concentric left ventricular hypertrophy on the 2D study. Left ventricle systolic function is severely impaired. The Ejection Fraction is - 20%. The left atrium, right ventricle and right atrium are dilated as detailed above. There is moderate brennen regurgitation and moderate tricuspid regurgitation.
--- NOTE | 2017-05-22 12:23 | CP.PCM.PN ---
Subjective - Date & Time of Evaluation Date of Evaluation: 05/22/17 Time of Evaluation: 09:45 - Subjective Subjective: 66 year old female with PMHx of diabetes mellitus type II, HTN, HLD, [place], CVA, and chronic back pain seen at bedside today for left foot chronic ulceration. Patient resting comfortably in bed, AAOx3 and NAD. She states she has mild pain in her foot when there is any pressure applied to the area. Patient denies any acute events overnight. Patient states she had an Echo test done this morning. Patient denies N/V/F/D/C/SOB/calf pain. No other pedal complaints at this time. Objective - Vital Signs/Intake and Output Vital Signs (last 24 hours): Temp Pulse Resp BP Pulse Ox 98.4 F 71 18 124/79 98 05/22/17 12:16 05/22/17 12:16 05/22/17 12:16 05/22/17 12:16 05/22/17 12:16 Intake and Output: 05/22/17 05/22/17 06:59 18:59 Intake Total 750 Balance 750 - Medications Medications: Current Medications Aspirin (Aspirin) 325 mg PO DAILY [facility] Last Admin: 05/22/17 10:14 Dose: 325 mg Atorvastatin Calcium (Lipitor) 40 mg PO DAILY [facility] Last Admin: 05/22/17 10:14 Dose: 40 mg Clopidogrel Bisulfate (Plavix) 75 mg PO DAILY [facility] Last Admin: 05/22/17 10:16 Dose: 75 mg Dextrose (Dextrose 50% Inj) 0 ml IV STAT PRN; Protocol PRN Reason: Hyglycemia Protocol Dextrose (Glutose 15) 0 gm PO ONCE PRN; Protocol PRN Reason: Hypoglycemia Protocol Enoxaparin Sodium (Lovenox) 40 mg SC DAILY [facility] PRN Reason: Protocol Last Admin: 05/22/17 10:15 Dose: 40 mg Glucagon (Glucagen Diagnostic Kit) 0 mg IM STAT PRN; Protocol PRN Reason: Hypoglycemia Protocol Piperacillin Sod/Tazobactam (Sod 3.375 gm/ Sodium Chloride) 100 mls @ 100 mls/ hr IVPB Q12 [facility] Last Admin: 05/22/17 10:16 Dose: 100 mls/hr Sodium Chloride (Sodium Chloride 0.9%) 1,000 mls @ 100 mls/hr IV .Q10H [facility] Stop: 05/23/17 08:29 Last Admin: 05/22/17 10:22 Dose: 100 mls/hr Insulin Detemir (Levemir) 20 units SC QPM [facility] Last Admin: 05/21/17 18:32 Dose: 20 unit Insulin Detemir (Levemir) 15 units SC QAM [facility] Last Admin: 05/22/17 10:11 Dose: 15 units Insulin Human Regular (Humulin R) 0 units SC ACHS [facility] PRN Reason: Protocol Last Admin: 05/22/17 06:41 Dose: 2 unit Metoprolol Tartrate (Lopressor) 25 mg PO Q6 [facility] Last Admin: 05/22/17 10:15 Dose: 25 mg Mirtazapine (Remeron) 7.5 mg PO HS [facility] Last Admin: 05/21/17 21:33 Dose: 7.5 mg Morphine Sulfate (Morphine) 2 mg IVP Q6 PRN PRN Reason: Pain, moderate (4-7) Ramipril (Altace) 10 mg PO DAILY [facility] Last Admin: 05/22/17 10:09 Dose: 10 mg Tramadol HCl (Ultram) 100 mg PO Q12 PRN PRN Reason: Pain, severe (8-10) - Labs Labs: 05/21/17 05:10 05/22/17 06:00 PT 13.1 Seconds (9.8-13.1) 05/20/17 06:00 INR 1.2 (0.9-1.2) 05/20/17 06:00 APTT 34.8 Seconds (25.6-37.1) 05/20/17 06:00 - Constitutional Appears: Well, Non-toxic, No Acute Distress - Extremities Exam Additional comments: LLE focused physical exam: Vasc: DP pulse nonpalpable. PT pulse weakly palpable 1/4. CFT <3 seconds to all digits. Temperature gradient cool to cool. No pedal edema noted Neuro: Protective sensation grossly intact Derm: Ulceration measuring 1.5 x 1.5 cm with dry necrotic base and hyperkeratotic rim. and borders No drainage, purulence, or malodor noted. Ortho: Mild tenderness to palpation of medial 1st met head - Neurological Exam Neurological Exam: Alert, Awake, Oriented x3 - Psychiatric Exam Psychiatric exam: Normal Affect, Normal Mood Assessment and Plan - Assessment and Plan (Free Text) Assessment: 66 year old F with PMHx of diabetes mellitus type II, HTN, HLD, ID, and stroke with left foot 1st metatarsal ulceration and 1st metatarsal head osteomyelitis secondary to DM Plan: Patient seen and evaluated at bedside with attending Dr. Reynoso Chart, vitals, labs reviewed = afebrile, WBC 10.4 Applied xeroform and DSD to L foot Continue IV Zosyn Pt may require 6-8 weeks IV abx as per ID Continue pain mgmt per medicine = Morphine, Tramadol Cardiac clearance pending perfusion scan to be performed Wednesday Pt to undergo revascularization with Dr. Castro at [facility] prior to surgical intervention Plan for OR sometime next week with Dr. Reynoso, pending vascular recommendations & cardiac clearance Podiatry will continue to follow while in house
--- NOTE | 2017-05-22 12:24 | CP.PCM.PN ---
Subjective - Date & Time of Evaluation Date of Evaluation: 05/22/17 Time of Evaluation: 11:00 - Subjective Subjective: continued mild dyspnea. no cp Objective - Vital Signs/Intake and Output Vital Signs (last 24 hours): Temp Pulse Resp BP Pulse Ox 98.4 F 71 18 124/79 98 05/22/17 12:16 05/22/17 12:16 05/22/17 12:16 05/22/17 12:16 05/22/17 12:16 Intake and Output: 05/22/17 05/22/17 06:59 18:59 Intake Total 750 Balance 750 - Medications Medications: Current Medications Aspirin (Aspirin) 325 mg PO DAILY [facility] Last Admin: 05/22/17 10:14 Dose: 325 mg Atorvastatin Calcium (Lipitor) 40 mg PO DAILY [facility] Last Admin: 05/22/17 10:14 Dose: 40 mg Clopidogrel Bisulfate (Plavix) 75 mg PO DAILY [facility] Last Admin: 05/22/17 10:16 Dose: 75 mg Dextrose (Dextrose 50% Inj) 0 ml IV STAT PRN; Protocol PRN Reason: Hyglycemia Protocol Dextrose (Glutose 15) 0 gm PO ONCE PRN; Protocol PRN Reason: Hypoglycemia Protocol Enoxaparin Sodium (Lovenox) 40 mg SC DAILY [facility] PRN Reason: Protocol Last Admin: 05/22/17 10:15 Dose: 40 mg Glucagon (Glucagen Diagnostic Kit) 0 mg IM STAT PRN; Protocol PRN Reason: Hypoglycemia Protocol Piperacillin Sod/Tazobactam (Sod 3.375 gm/ Sodium Chloride) 100 mls @ 100 mls/ hr IVPB Q12 [facility] Last Admin: 05/22/17 10:16 Dose: 100 mls/hr Sodium Chloride (Sodium Chloride 0.9%) 1,000 mls @ 100 mls/hr IV .Q10H [facility] Stop: 05/23/17 08:29 Last Admin: 05/22/17 10:22 Dose: 100 mls/hr Insulin Detemir (Levemir) 20 units SC QPM [facility] Last Admin: 05/21/17 18:32 Dose: 20 unit Insulin Detemir (Levemir) 15 units SC QAM [facility] Last Admin: 05/22/17 10:11 Dose: 15 units Insulin Human Regular (Humulin R) 0 units SC ACHS [facility] PRN Reason: Protocol Last Admin: 05/22/17 06:41 Dose: 2 unit Metoprolol Tartrate (Lopressor) 25 mg PO Q6 [facility] Last Admin: 05/22/17 10:15 Dose: 25 mg Mirtazapine (Remeron) 7.5 mg PO HS [facility] Last Admin: 05/21/17 21:33 Dose: 7.5 mg Morphine Sulfate (Morphine) 2 mg IVP Q6 PRN PRN Reason: Pain, moderate (4-7) Ramipril (Altace) 10 mg PO DAILY [facility] Last Admin: 05/22/17 10:09 Dose: 10 mg Tramadol HCl (Ultram) 100 mg PO Q12 PRN PRN Reason: Pain, severe (8-10) - Labs Labs: 05/21/17 05:10 05/22/17 06:00 PT 13.1 Seconds (9.8-13.1) 05/20/17 06:00 INR 1.2 (0.9-1.2) 05/20/17 06:00 APTT 34.8 Seconds (25.6-37.1) 05/20/17 06:00 - Constitutional Appears: Well - Head Exam Head Exam: ATRAUMATIC, NORMAL INSPECTION, NORMOCEPHALIC - Eye Exam Eye Exam: EOMI, Normal appearance, PERRL Pupil Exam: NORMAL ACCOMODATION, PERRL - ENT Exam ENT Exam: Mucous Membranes Moist, Normal Exam - Neck Exam Neck Exam: Full ROM, Normal Inspection. absent: Lymphadenopathy - Respiratory Exam Respiratory Exam: NORMAL BREATHING PATTERN Additional comments: minimal bibasilar crackles. - Cardiovascular Exam Cardiovascular Exam: REGULAR RHYTHM, +S1, +S2, Murmur. absent: Bradycardia, Tachycardia, Clicks, Diastolic murmur, Gallop, Irregular Rhythm, JVD, RRR, Rubs , +S4 - GI/Abdominal Exam GI & Abdominal Exam: Soft, Normal Bowel Sounds - Rectal Exam Rectal Exam: Deferred - Extremities Exam Extremities Exam: Full ROM, Tenderness. absent: Joint Swelling, Pedal Edema - Back Exam Back Exam: NORMAL INSPECTION - Neurological Exam Neurological Exam: Alert, Awake, CN II-XII Intact, Oriented x3 - Psychiatric Exam Psychiatric exam: Normal Affect, Normal Mood - Skin Skin Exam: Dry, Intact, Normal Color, Warm Assessment and Plan (1) PVD (peripheral vascular disease) Status: Acute (2) SOB (shortness of breath) Status: Acute (3) Hx of myocardial infarction Status: Chronic (4) History of CVA (cerebrovascular accident) Status: Chronic (5) HTN (hypertension) Status: Chronic (6) Dyslipidemia Status: Chronic (7) History of tobacco abuse Status: Chronic (8) Osteomyelitis Status: Acute (9) Diabetic foot ulcer Status: Acute (10) Uncontrolled diabetes mellitus Status: Acute - Assessment and Plan (Free Text) Plan: PT IS NOT CLEARED FOR VASCULAR PROCEDURE. PT HAS SX OF SOB. HER EKG IS ABN, PER PT SHE HAS A HX OF VA, CAD, PVD AND CVA. ANTIPLT THERAPY started FOR CAD, AND PVD BOTH HX AND ACTIVE DISEASE. INCREASED METOPROLOL TO 25 Q6 CHANGED SHABBIR TO RAMIPRIL currently bp controlled MONITOR CR AND LYTES SUGGEST LIMITING DYE GIVEN CR DURING PVI CONSIDER RENAL EVAL GIVEN CR (currently 1.5) Since pt has PVD there is a high likelyhood of CAD and Carotid disease. Per guidelines the patient should undergo st prior to any procedure, Given her questionable hx and the symptoms she reports. we are attempting to obtain her old med records. I REVIEWED THE ECHO MYSELF, PRELIM FINDINGS ARE SEVERELY REDUCED EF, DCM, AKINETIC ANTERIOR AND SEPTAL HOFFMAN WITH HYPOKINESIS OF OTHER HOFFMAN. MOD MR, MOD TR, MOD PI, PHTN, DILATED IVC. SEVERE DIASTOLIC DYSFUNCTION. 90 MIN TOTAL CARE
--- NOTE | 2017-05-22 13:47 | CP.PCM.PN ---
Subjective - Date & Time of Evaluation Date of Evaluation: 05/22/17 Time of Evaluation: 08:50 - Subjective Subjective: Pt seen and examined at bedside today, reports feeling a little anxious about procedure for wednesday, pt reassured about plans. pt also made aware, procedure is currently on hold until cleared by cardiology and give her history she reports more work up and information is needed. Contacted pt's pharmacy to confirm her medication list, pt is only on Insulin, Enalipril, lipitor and Metroprolol. Per pharmacy she has never been on plavix, or any antiplt. The pharmacist did give me the name of the pt's PCP (Dr. Ludwig Quinones -[phone]) - called his office, it appears pt has two medical files, one with date of 52 under that file pt only had DM2 and HTN, however, under the medical record with the date of of 08/12/1952, pt was last seen in January where she was following up from a possible stroke work [place] [facility]CP does not have any records of [place] or stroke. Pt has signed medical release form to [place] [facility] [place]. Objective - Vital Signs/Intake and Output Vital Signs (last 24 hours): Temp Pulse Resp BP Pulse Ox 98.4 F 71 18 124/79 98 05/22/17 12:16 05/22/17 12:16 05/22/17 12:16 05/22/17 12:16 05/22/17 12:16 Intake and Output: 05/22/17 05/22/17 06:59 18:59 Intake Total 750 Balance 750 - Medications Medications: Current Medications Aspirin (Aspirin) 325 mg PO DAILY [facility] Last Admin: 05/22/17 10:14 Dose: 325 mg Atorvastatin Calcium (Lipitor) 40 mg PO DAILY [facility] Last Admin: 05/22/17 10:14 Dose: 40 mg Clopidogrel Bisulfate (Plavix) 75 mg PO DAILY [facility] Last Admin: 05/22/17 10:16 Dose: 75 mg Dextrose (Dextrose 50% Inj) 0 ml IV STAT PRN; Protocol PRN Reason: Hyglycemia Protocol Dextrose (Glutose 15) 0 gm PO ONCE PRN; Protocol PRN Reason: Hypoglycemia Protocol Enoxaparin Sodium (Lovenox) 40 mg SC DAILY [facility] PRN Reason: Protocol Last Admin: 05/22/17 10:15 Dose: 40 mg Glucagon (Glucagen Diagnostic Kit) 0 mg IM STAT PRN; Protocol PRN Reason: Hypoglycemia Protocol Piperacillin Sod/Tazobactam (Sod 3.375 gm/ Sodium Chloride) 100 mls @ 100 mls/ hr IVPB Q12 [facility] Last Admin: 05/22/17 10:16 Dose: 100 mls/hr Sodium Chloride (Sodium Chloride 0.9%) 1,000 mls @ 100 mls/hr IV .Q10H [facility] Stop: 05/23/17 08:29 Last Admin: 05/22/17 10:22 Dose: 100 mls/hr Insulin Detemir (Levemir) 20 units SC QPM [facility] Last Admin: 05/21/17 18:32 Dose: 20 unit Insulin Detemir (Levemir) 15 units SC QAM [facility] Last Admin: 05/22/17 10:11 Dose: 15 units Insulin Human Regular (Humulin R) 0 units SC ACHS [facility] PRN Reason: Protocol Last Admin: 05/22/17 13:18 Dose: Not Given Metoprolol Tartrate (Lopressor) 25 mg PO Q6 [facility] Last Admin: 05/22/17 10:15 Dose: 25 mg Mirtazapine (Remeron) 7.5 mg PO HS [facility] Last Admin: 05/21/17 21:33 Dose: 7.5 mg Morphine Sulfate (Morphine) 2 mg IVP Q6 PRN PRN Reason: Pain, moderate (4-7) Ramipril (Altace) 10 mg PO DAILY [facility] Last Admin: 05/22/17 10:09 Dose: 10 mg Tramadol HCl (Ultram) 100 mg PO Q12 PRN PRN Reason: Pain, severe (8-10) - Labs Labs: 05/21/17 05:10 05/22/17 06:00 PT 13.1 Seconds (9.8-13.1) 05/20/17 06:00 INR 1.2 (0.9-1.2) 05/20/17 06:00 APTT 34.8 Seconds (25.6-37.1) 05/20/17 06:00 - Constitutional Appears: Non-toxic, No Acute Distress - Head Exam Head Exam: NORMOCEPHALIC - Eye Exam Eye Exam: EOMI - ENT Exam ENT Exam: Mucous Membranes Moist - Respiratory Exam Respiratory Exam: Clear to Ausculation Bilateral, NORMAL BREATHING PATTERN. absent: Rhonchi, Wheezes - Cardiovascular Exam Cardiovascular Exam: REGULAR RHYTHM, +S1, +S2 - GI/Abdominal Exam GI & Abdominal Exam: Soft, Normal Bowel Sounds. absent: Tenderness - Neurological Exam Neurological Exam: Alert, Oriented x3 Assessment and Plan - Assessment and Plan (Free Text) Assessment: 66 yo F with PMH DM2, HTN, HLD, [place], CVA admitted due to most likely osteomyelitis in left lower extremity at first metatarsal, found to have severe arterial disease in both extremities. Plan: 1) Osteomyelitis -podiatry consulted; further intervention regarding osteomyelitis by podiatry team -LE Doppler: Mild arterial disease is suggested at the proximal to mid leg from left groin to knee with potentially severe arterial disease in the runoff below the knee. Follow up MR or CT angiography is advised with contrast (see 2) peripheral arterial disease.) -Xray Foot: Study reveals what appears to represent some localized irregularity along the superomedial border of the head of first metatarsal. Also some irregularity of the overlying soft tissues and possibly small amount of subcutaneous air. Findings suggest osteomyelitis in this location. -Zosyn 3.375gm Q12, Day 4 -Tramadol for pain Q6 PRN 2) Peripheral Arterial Disease -CT angio showed severe disease: there is poor blood flow to the foot on the left, and no appreciable flow to the foot on the right lower extremity. Pt will likely need revascularization to improve flow. -Plan for revascularization currently on hold pending cardiac clearance -cardiology recommends perfusion scan for evaluation however, cannot be done over weekend, will schedule for Wednesday 3) Diabetes Mellitus Type 2 -Monitor glucose with fingersticks -Continue home meds: levemir 15u QAM, 20u QPM -SSI -A1C 7.3 -f/u microalbumin ordered previously -Diabetic diet -Hypoglycemia protocol in place 4)Hypertension -Controlled, continue home meds: enalapril, metoprolol -Monitor BP 5)Hyperlipidemia -Continue home meds: atorvastatin -Total cholesterol 88, LDL 41, HDL 28 6) Anxiety -Seen by psychiatrist -Continue remeron for anxiety 7)DVT prophylaxis -Lovenox 40 mg SC daily
[2017-05-22] MEDS: Docusate-Senna 50 mg-8.6 mg Tab PO SCH (21:12)
[2017-05-23 08:30] LABS: BILIRUBIN,TOTAL 0.6 mg/dl (0.2-1.3); POTASSIUM 3.7 MMOL/L (3.6-5.0); TOTAL PROTEIN 6.7 G/DL (6.3-8.2)
[2017-05-23] MEDS: Insulin Regular 100 units/ml SC SCH ×4 (10:54→21:47)
[2017-05-23] MEDS: Insulin Detemir 100 Units/ml Inj SC SCH ×2 (10:55→18:37)
[2017-05-23] MEDS: Enoxaparin 40 mg Syringe SC SCH (10:56)
[2017-05-23] MEDS: Piperacillin/Tazobact 3.375 GM in Sodium Chloride 0.9% 100 ML IVPB SCH ×2 (10:57→21:33)
--- NOTE | 2017-05-23 11:32 | CP.PCM.PN ---
Subjective - Date & Time of Evaluation Date of Evaluation: 05/23/17 Time of Evaluation: 11:15 - Subjective Subjective: 66 y/o female seen at bedside today for left medial forefoot chronic ulceration. Patient is resting comfortably in bed, AAOx3 and NAD. Patient denies any pain at this time and says it only hurts when she puts pressure on it. Patient denies any acute events overnight. Patient states she is aware that she is having a heart test done tomorrow before she can get revascularized. Patient denies N/V/F/D/C/SOB/calf pain. No other pedal complaints at this time. Objective - Vital Signs/Intake and Output Vital Signs (last 24 hours): Temp Pulse Resp BP Pulse Ox 98.1 F 80 18 131/84 96 05/23/17 08:00 05/23/17 10:56 05/23/17 08:00 05/23/17 10:56 05/23/17 08:00 - Medications Medications: Current Medications Aspirin (Aspirin) 325 mg PO DAILY [facility] Last Admin: 05/22/17 10:14 Dose: 325 mg Atorvastatin Calcium (Lipitor) 40 mg PO DAILY [facility] Last Admin: 05/23/17 10:55 Dose: 40 mg Clopidogrel Bisulfate (Plavix) 75 mg PO DAILY [facility] Last Admin: 05/23/17 10:57 Dose: 75 mg Dextrose (Dextrose 50% Inj) 0 ml IV STAT PRN; Protocol PRN Reason: Hyglycemia Protocol Dextrose (Glutose 15) 0 gm PO ONCE PRN; Protocol PRN Reason: Hypoglycemia Protocol Enoxaparin Sodium (Lovenox) 40 mg SC DAILY [facility] PRN Reason: Protocol Last Admin: 05/23/17 10:56 Dose: 40 mg Glucagon (Glucagen Diagnostic Kit) 0 mg IM STAT PRN; Protocol PRN Reason: Hypoglycemia Protocol Piperacillin Sod/Tazobactam (Sod 3.375 gm/ Sodium Chloride) 100 mls @ 100 mls/ hr IVPB Q12 [facility] Last Admin: 05/23/17 10:57 Dose: 100 mls/hr Sodium Chloride (Sodium Chloride 0.9%) 1,000 mls @ 80 mls/hr IV .[id number] [facility] Stop: 05/24/17 10:38 Insulin Detemir (Levemir) 20 units SC QPM [facility] Last Admin: 05/22/17 17:31 Dose: 20 unit Insulin Detemir (Levemir) 15 units SC QAM [facility] Last Admin: 05/23/17 10:55 Dose: 15 units Insulin Human Regular (Humulin R) 0 units SC ACHS [facility] PRN Reason: Protocol Last Admin: 05/23/17 10:54 Dose: Not Given Metoprolol Tartrate (Lopressor) 25 mg PO Q6 [facility] Last Admin: 05/23/17 10:56 Dose: 25 mg Mirtazapine (Remeron) 7.5 mg PO HS [facility] Last Admin: 05/22/17 21:11 Dose: 7.5 mg Morphine Sulfate (Morphine) 2 mg IVP Q6 PRN PRN Reason: Pain, moderate (4-7) Ramipril (Altace) 10 mg PO DAILY [facility] Last Admin: 05/23/17 10:53 Dose: 10 mg Senna/Docusate Sodium (Senokot S 50 Mg-8.6 Mg) 2 tab PO [facility] Last Admin: 05/22/17 21:12 Dose: 2 tab Tramadol HCl (Ultram) 100 mg PO Q12 PRN PRN Reason: Pain, severe (8-10) - Labs Labs: 05/21/17 05:10 05/23/17 07:00 PT 13.1 Seconds (9.8-13.1) 05/20/17 06:00 INR 1.2 (0.9-1.2) 05/20/17 06:00 APTT 34.8 Seconds (25.6-37.1) 05/20/17 06:00 - Constitutional Appears: Well, Non-toxic, No Acute Distress - Extremities Exam Additional comments: Left lower extremity focused exam: Vasc: DP pulse nonpalpable. PT pulse weakly palpable 1/4. CFT <3 seconds to all digits. Temperature gradient cool to cool. No pedal edema noted Neuro: Protective sensation grossly intact Derm: Ulceration measuring 1.5 x 1.5 cm with dry necrotic base and hyperkeratotic rim and borders. No drainage, purulence, or malodor noted. No tunneling or undermining. Ortho: Mild tenderness to palpation of medial 1st met head - Neurological Exam Neurological Exam: Alert, Awake, Oriented x3 - Psychiatric Exam Psychiatric exam: Normal Affect, Normal Mood Assessment and Plan - Assessment and Plan (Free Text) Assessment: 66 year old female with left foot 1st metatarsal ulceration and 1st metatarsal head osteomyelitis secondary to DM Plan: Patient seen and evaluated at bedside Discussed plan in detail with attending Dr. Reynoso Chart, vitals, labs reviewed = afebrile, WBC 10.4 Applied xeroform and DSD to L foot Continue IV Zosyn Pt may require 6-8 weeks IV abx as per ID Continue pain mgmt per medicine = Morphine, Tramadol Cardiac clearance pending perfusion scan to be performed on Wednesday Pt will undergo revascularization at [facility] [place] with Dr. Castro once she is cleared from cardiac standpoint Plan for OR sometime this week with Dr. Reynoso, pending vascular & cardiac clearance Podiatry will continue to follow while in house
[2017-05-23] MEDS: Sodium Chloride 0.9% 1,000 ML IV SCH ×2 (11:35→21:40)
--- NOTE | 2017-05-23 14:14 | CP.PCM.PN ---
Subjective - Date & Time of Evaluation Date of Evaluation: 05/23/17 Time of Evaluation: 08:30 - Subjective Subjective: Pt seen and examined at bedside, appeared in good spirits and was seen talking to neighbor in room who is from the same country [place] pt. Patient is aware that she is to have a procedure done next week, but that it is on hold because she needs cardiology clearance; pt was agreeable with signing form to release medical records from [facility] for cardiac and possible stroke workup. Form was faxed to [facility] medical records office at [phone]. Pt was asked to notify nurse immediately if she was to experience new onset chest pain. Denied changes in pain at site of ulcer, denied calf/leg pain/ swelling. Objective - Vital Signs/Intake and Output Vital Signs (last 24 hours): Temp Pulse Resp BP Pulse Ox 98 F 71 18 134/82 98 05/23/17 12:00 05/23/17 12:00 05/23/17 12:00 05/23/17 12:00 05/23/17 12:00 - Medications Medications: Current Medications Aspirin (Aspirin) 325 mg PO DAILY [facility] Last Admin: 05/23/17 11:34 Dose: 325 mg Atorvastatin Calcium (Lipitor) 40 mg PO DAILY [facility] Last Admin: 05/23/17 10:55 Dose: 40 mg Clopidogrel Bisulfate (Plavix) 75 mg PO DAILY [facility] Last Admin: 05/23/17 10:57 Dose: 75 mg Dextrose (Dextrose 50% Inj) 0 ml IV STAT PRN; Protocol PRN Reason: Hyglycemia Protocol Dextrose (Glutose 15) 0 gm PO ONCE PRN; Protocol PRN Reason: Hypoglycemia Protocol Enoxaparin Sodium (Lovenox) 40 mg SC DAILY [facility] PRN Reason: Protocol Last Admin: 05/23/17 10:56 Dose: 40 mg Glucagon (Glucagen Diagnostic Kit) 0 mg IM STAT PRN; Protocol PRN Reason: Hypoglycemia Protocol Piperacillin Sod/Tazobactam (Sod 3.375 gm/ Sodium Chloride) 100 mls @ 100 mls/ hr IVPB Q12 [facility] Last Admin: 05/23/17 10:57 Dose: 100 mls/hr Sodium Chloride (Sodium Chloride 0.9%) 1,000 mls @ 80 mls/hr IV .[id number] [facility] Stop: 05/24/17 10:38 Last Admin: 05/23/17 11:35 Dose: 80 mls/hr Insulin Detemir (Levemir) 20 units SC QPM [facility] Last Admin: 05/22/17 17:31 Dose: 20 unit Insulin Detemir (Levemir) 15 units SC QAM [facility] Last Admin: 05/23/17 10:55 Dose: 15 units Insulin Human Regular (Humulin R) 0 units SC ACHS [facility] PRN Reason: Protocol Last Admin: 05/23/17 10:54 Dose: Not Given Metoprolol Tartrate (Lopressor) 25 mg PO Q6 [facility] Last Admin: 05/23/17 10:56 Dose: 25 mg Mirtazapine (Remeron) 7.5 mg PO HS [facility] Last Admin: 05/22/17 21:11 Dose: 7.5 mg Morphine Sulfate (Morphine) 2 mg IVP Q6 PRN PRN Reason: Pain, moderate (4-7) Ramipril (Altace) 10 mg PO DAILY [facility] Last Admin: 05/23/17 10:53 Dose: 10 mg Senna/Docusate Sodium (Senokot S 50 Mg-8.6 Mg) 2 tab PO [facility] Last Admin: 05/22/17 21:12 Dose: 2 tab Tramadol HCl (Ultram) 100 mg PO Q12 PRN PRN Reason: Pain, severe (8-10) - Labs Labs: 05/21/17 05:10 05/23/17 07:00 PT 13.1 Seconds (9.8-13.1) 05/20/17 06:00 INR 1.2 (0.9-1.2) 05/20/17 06:00 APTT 34.8 Seconds (25.6-37.1) 05/20/17 06:00 - Constitutional Appears: Non-toxic, No Acute Distress - Head Exam Head Exam: NORMAL INSPECTION, NORMOCEPHALIC - Eye Exam Eye Exam: EOMI - ENT Exam ENT Exam: Mucous Membranes Moist - Respiratory Exam Respiratory Exam: Clear to Ausculation Bilateral, NORMAL BREATHING PATTERN - Cardiovascular Exam Cardiovascular Exam: REGULAR RHYTHM, +S1, +S2 - GI/Abdominal Exam GI & Abdominal Exam: Soft, Normal Bowel Sounds - Extremities Exam Extremities Exam: absent: Calf Tenderness, Pedal Edema Additional comments: dressing on LLE in place over ulcer on 1st metatarsal, dry. - Neurological Exam Neurological Exam: Alert, Awake, Oriented x3 - Psychiatric Exam Psychiatric exam: Normal Mood - Skin Skin Exam: Dry, Normal Color Assessment and Plan - Assessment and Plan (Free Text) Assessment: 66 yo F with PMH DM2, HTN, HLD, [place], CVA admitted due to most likely osteomyelitis in left lower extremity at first metatarsal, found to have severe arterial disease in both lower extremities. Pending revascularization by IR, but needs cardiac clearance first; currently pending cardiac clearance. Podiatry on board as well, following while inpt, possible intervention after pending revascularization by IR. Plan: 1) Osteomyelitis -podiatry consulted; further intervention regarding osteomyelitis by podiatry team -LE Doppler: Mild arterial disease is suggested at the proximal to mid leg from left groin to knee with potentially severe arterial disease in the runoff below the knee. Follow up MR or CT angiography is advised with contrast (see 2) peripheral arterial disease.) -Xray Foot: Study reveals what appears to represent some localized irregularity along the superomedial border of the head of first metatarsal. Also some irregularity of the overlying soft tissues and possibly small amount of subcutaneous air. Findings suggest osteomyelitis in this location. -Zosyn 3.375gm Q12, Day 5 -Tramadol for pain Q6 PRN 2) Peripheral Vascular Disease -CT angio showed severe disease: there is poor blood flow to the foot on the left, and no appreciable flow to the foot on the right lower extremity. Pt will likely need revascularization to improve flow. -Plan for revascularization currently on hold pending cardiac clearance -Cardiology consult -Pt is not currently cleared by cardiology -Cardiology recommends perfusion scan for evaluation however, cannot be done over weekend, will schedule for tomorrow (Wednesday) -Requests sent to [facility] medical records to obtain pt's medical records regarding cardiac/stroke workups -Change SHABBIR from enalapril to ramipril -Antiplatelet therapy- clopidogrel 75 mg po daily, aspirin 325 mg po daily -Monitor Cr and lytes -Limit dye during PVI due to Cr 3) Systolic Heart Failure -Echo showed EF 20%. Moderate LV dilation, borderline concentric left ventricular hypertrophy, left ventricular systolic function severely impaired. Moderate mitral regurgitation and moderate tricuspid regurgitation. -Continue with SHABBIR inhibitor -Cardiology following 4)Elevated BUN/Cr -Hydration, NS @ 80 ml/hr today -Stop fluids by tonight to avoid volume overload -f/u BUN/Cr 5) Diabetes Mellitus Type 2 -Monitor glucose - accucheck -Continue home meds: levemir 15u QAM, 20u QPM -Insulin coverage scale -A1C 7.3 -f/u microalbumin ordered previously -Diabetic diet -Hypoglycemia protocol in place 6)Hypertension -Controlled -Metoprolol 25 mg Q6 -As per cardiology, SHABBIR was changed from enalapril to ramipril 10mg po daily -Monitor BP 7)Hyperlipidemia -Continue home meds: atorvastatin -Total cholesterol 88, LDL 41, HDL 28 8) Anxiety -Seen by psychiatrist -Continue remeron for anxiety 9)DVT prophylaxis -Lovenox 40 mg SC daily
--- NOTE | 2017-05-23 14:15 | CP.PCM.PN ---
Subjective - Date & Time of Evaluation Date of Evaluation: 05/23/17 Time of Evaluation: 09:00 - Subjective Subjective: iv rx in progress appears comfortable ulcer on toe stable no pus for procedure in am Objective - Vital Signs/Intake and Output Vital Signs (last 24 hours): Temp Pulse Resp BP Pulse Ox 98 F 71 18 134/82 98 05/23/17 12:00 05/23/17 12:00 05/23/17 12:00 05/23/17 12:00 05/23/17 12:00 - Medications Medications: Current Medications Aspirin (Aspirin) 325 mg PO DAILY [facility] Last Admin: 05/23/17 11:34 Dose: 325 mg Atorvastatin Calcium (Lipitor) 40 mg PO DAILY [facility] Last Admin: 05/23/17 10:55 Dose: 40 mg Clopidogrel Bisulfate (Plavix) 75 mg PO DAILY [facility] Last Admin: 05/23/17 10:57 Dose: 75 mg Dextrose (Dextrose 50% Inj) 0 ml IV STAT PRN; Protocol PRN Reason: Hyglycemia Protocol Dextrose (Glutose 15) 0 gm PO ONCE PRN; Protocol PRN Reason: Hypoglycemia Protocol Enoxaparin Sodium (Lovenox) 40 mg SC DAILY [facility] PRN Reason: Protocol Last Admin: 05/23/17 10:56 Dose: 40 mg Glucagon (Glucagen Diagnostic Kit) 0 mg IM STAT PRN; Protocol PRN Reason: Hypoglycemia Protocol Piperacillin Sod/Tazobactam (Sod 3.375 gm/ Sodium Chloride) 100 mls @ 100 mls/ hr IVPB Q12 [facility] Last Admin: 05/23/17 10:57 Dose: 100 mls/hr Sodium Chloride (Sodium Chloride 0.9%) 1,000 mls @ 80 mls/hr IV .[id number] [facility] Stop: 05/24/17 10:38 Last Admin: 05/23/17 11:35 Dose: 80 mls/hr Insulin Detemir (Levemir) 20 units SC QPM [facility] Last Admin: 05/22/17 17:31 Dose: 20 unit Insulin Detemir (Levemir) 15 units SC QAM [facility] Last Admin: 05/23/17 10:55 Dose: 15 units Insulin Human Regular (Humulin R) 0 units SC ACHS [facility] PRN Reason: Protocol Last Admin: 05/23/17 13:58 Dose: Not Given Metoprolol Tartrate (Lopressor) 25 mg PO Q6 [facility] Last Admin: 05/23/17 10:56 Dose: 25 mg Mirtazapine (Remeron) 7.5 mg PO HS [facility] Last Admin: 05/22/17 21:11 Dose: 7.5 mg Morphine Sulfate (Morphine) 2 mg IVP Q6 PRN PRN Reason: Pain, moderate (4-7) Ramipril (Altace) 10 mg PO DAILY [facility] Last Admin: 05/23/17 10:53 Dose: 10 mg Senna/Docusate Sodium (Senokot S 50 Mg-8.6 Mg) 2 tab PO HS [facility] Last Admin: 05/22/17 21:12 Dose: 2 tab Tramadol HCl (Ultram) 100 mg PO Q12 PRN PRN Reason: Pain, severe (8-10) - Labs Labs: 05/21/17 05:10 05/23/17 07:00 PT 13.1 Seconds (9.8-13.1) 05/20/17 06:00 INR 1.2 (0.9-1.2) 05/20/17 06:00 APTT 34.8 Seconds (25.6-37.1) 05/20/17 06:00 - Constitutional Appears: Non-toxic, Chronically Ill - Head Exam Head Exam: NORMOCEPHALIC - Eye Exam Eye Exam: PERRL - ENT Exam ENT Exam: Mucous Membranes Dry, Normal External Ear Exam - Neck Exam Neck Exam: absent: Lymphadenopathy - Respiratory Exam Respiratory Exam: Decreased Breath Sounds, Clear to Ausculation Bilateral - Cardiovascular Exam Cardiovascular Exam: REGULAR RHYTHM - GI/Abdominal Exam GI & Abdominal Exam: Distended, Soft Assessment and Plan (1) Osteomyelitis Status: Acute (2) Osteomyelitis Status: Acute (3) Diabetic foot ulcer Status: Acute
[2017-05-23 20:59] LABS: RBC URINE 3 /hpf (0-3); URINE BACTERIA RARE (<OCC); URINE BILIRUBIN NEGATIVE (NEGATIVE); URINE BLOOD NEGATIVE (NEGATIVE); URINE COLOR YELLOW (YELLOW); URINE GLUCOSE (UA) 50 mg/dL (Normal); URINE KETONE NEGATIVE (NEGATIVE); URINE LEUKOCYTE ESTERASE TRACE Leu/uL (Negative); URINE PROTEIN 100 mg/dL (NEGATIVE); URINE UROBILINOGEN 0.2-1.0 mg/dL (0.2-1.0); WBC URINE 2 /hpf (0-5)
[2017-05-23] MEDS: Docusate-Senna 50 mg-8.6 mg Tab PO SCH (21:37)
--- NOTE | 2017-05-23 22:44 | CP.PCM.PN ---
Subjective - Date & Time of Evaluation Date of Evaluation: 05/23/17 Time of Evaluation: 15:45 - Subjective Subjective: MILD DYSPNEA ECHO REVEALS EF OF 20 PERCENT WITH DCM Objective - Vital Signs/Intake and Output Vital Signs (last 24 hours): Temp Pulse Resp BP Pulse Ox 98.4 F 74 20 138/82 97 05/23/17 19:08 05/23/17 21:35 05/23/17 19:08 05/23/17 21:35 05/23/17 19:08 Intake and Output: 05/23/17 05/24/17 18:59 06:59 Intake Total 1520 Balance 1520 - Medications Medications: Current Medications Aspirin (Aspirin) 325 mg PO DAILY [facility] Last Admin: 05/23/17 11:34 Dose: 325 mg Atorvastatin Calcium (Lipitor) 40 mg PO DAILY [facility] Last Admin: 05/23/17 10:55 Dose: 40 mg Clopidogrel Bisulfate (Plavix) 75 mg PO DAILY [facility] Last Admin: 05/23/17 10:57 Dose: 75 mg Dextrose (Dextrose 50% Inj) 0 ml IV STAT PRN; Protocol PRN Reason: Hyglycemia Protocol Dextrose (Glutose 15) 0 gm PO ONCE PRN; Protocol PRN Reason: Hypoglycemia Protocol Enoxaparin Sodium (Lovenox) 40 mg SC DAILY [facility] PRN Reason: Protocol Last Admin: 05/23/17 10:56 Dose: 40 mg Glucagon (Glucagen Diagnostic Kit) 0 mg IM STAT PRN; Protocol PRN Reason: Hypoglycemia Protocol Piperacillin Sod/Tazobactam (Sod 3.375 gm/ Sodium Chloride) 100 mls @ 100 mls/ hr IVPB Q12 [facility] Last Admin: 05/23/17 21:33 Dose: 100 mls/hr Sodium Chloride (Sodium Chloride 0.9%) 1,000 mls @ 80 mls/hr IV .[id number] [facility] Stop: 05/24/17 10:38 Last Admin: 05/23/17 21:40 Dose: 80 mls/hr Insulin Detemir (Levemir) 20 units SC QPM [facility] Last Admin: 05/23/17 18:37 Dose: Not Given Insulin Detemir (Levemir) 15 units SC QAM [facility] Last Admin: 05/23/17 10:55 Dose: 15 units Insulin Human Regular (Humulin R) 0 units SC ACHS [facility] PRN Reason: Protocol Last Admin: 05/23/17 21:47 Dose: Not Given Metoprolol Tartrate (Lopressor) 25 mg PO Q6 [facility] Last Admin: 05/23/17 21:35 Dose: 25 mg Mirtazapine (Remeron) 7.5 mg PO HS [facility] Last Admin: 05/23/17 21:36 Dose: 7.5 mg Morphine Sulfate (Morphine) 2 mg IVP Q6 PRN PRN Reason: Pain, moderate (4-7) Ramipril (Altace) 10 mg PO DAILY [facility] Last Admin: 05/23/17 10:53 Dose: 10 mg Senna/Docusate Sodium (Senokot S 50 Mg-8.6 Mg) 2 tab PO HS [facility] Last Admin: 05/23/17 21:37 Dose: Not Given Tramadol HCl (Ultram) 100 mg PO Q12 PRN PRN Reason: Pain, severe (8-10) - Labs Labs: 05/21/17 05:10 05/23/17 07:00 PT 13.1 Seconds (9.8-13.1) 05/20/17 06:00 INR 1.2 (0.9-1.2) 05/20/17 06:00 APTT 34.8 Seconds (25.6-37.1) 05/20/17 06:00 - Constitutional Appears: Well - Head Exam Head Exam: ATRAUMATIC, NORMAL INSPECTION, NORMOCEPHALIC - Eye Exam Eye Exam: EOMI, Normal appearance, PERRL. absent: Conjunctival injection, Nystagmus, Periorbital swelling, Periorbital tenderness, Scleral icterus Pupil Exam: NORMAL ACCOMODATION, PERRL - ENT Exam ENT Exam: Mucous Membranes Moist, Normal Exam. absent: Mucous Membranes Dry, Normal External Ear Exam, Normal Oropharynx, TM's Normal Bilaterally - Neck Exam Neck Exam: Full ROM, Normal Inspection. absent: Lymphadenopathy, Meningismus, Tenderness, Thyromegaly - Respiratory Exam Respiratory Exam: Rales, NORMAL BREATHING PATTERN. absent: Accessory Muscle Use , Chest Wall Tenderness, Decreased Breath Sounds, Clear to Ausculation Bilateral , Prolonged Expiratory Phase, Rhonchi, Wheezes, Respiratory Distress, Stridor - Cardiovascular Exam Cardiovascular Exam: REGULAR RHYTHM, +S1, +S2, Murmur. absent: Bradycardia, Tachycardia, Clicks, Diastolic murmur, Gallop, Irregular Rhythm, JVD, RRR, Rubs , +S4 - GI/Abdominal Exam GI & Abdominal Exam: Soft, Normal Bowel Sounds - Rectal Exam Rectal Exam: Deferred - Extremities Exam Extremities Exam: Full ROM, Tenderness - Back Exam Back Exam: NORMAL INSPECTION. absent: CVA tenderness (L), CVA tenderness (R), Full ROM, muscle spasm, paraspinal tenderness, rash noted, tenderness, vertebral tenderness - Neurological Exam Neurological Exam: Alert, Awake, CN II-XII Intact, Oriented x3. absent: Abnormal Gait, Altered, Motor Sensory Deficit, Normal Gait, Reflexes Normal - Psychiatric Exam Psychiatric exam: Normal Affect, Normal Mood. absent: Agitated, Anxious, Depressed, Flat Affect, Homicidal Ideation, Manic, Suicidal Ideation - Skin Skin Exam: Dry, Intact, Normal Color, Warm. absent: Abrasion, Cyanosis, Diaphoretic, Erythema, Mottled, Pallor, Pallor, Petechiae, Rash, Urticaria, Vesicles Assessment and Plan (1) PVD (peripheral vascular disease) Status: Acute (2) SOB (shortness of breath) Status: Acute (3) Hx of myocardial infarction Status: Chronic (4) History of CVA (cerebrovascular accident) Status: Chronic (5) HTN (hypertension) Status: Chronic (6) Dyslipidemia Status: Chronic (7) History of tobacco abuse Status: Chronic (8) Osteomyelitis Status: Acute (9) Diabetic foot ulcer Status: Acute (10) Uncontrolled diabetes mellitus Status: Acute - Assessment and Plan (Free Text) Plan: STRESS TEST TO EVAL CAD OR ISCHEMIA. AWAIT RESULTS PRIOR TO VASCULAR INTERVENTION MONITOR LABS CONTROL GLUCOSE DUAL ANTIPLTS REVIEW RECORDS OF PRIOR HOSP STATIN ACEI 90 MIN TOTAL CARE TIME.
--- NOTE | 2017-05-24 05:49 | CP.PCM.PN ---
Subjective - Date & Time of Evaluation Date of Evaluation: 05/24/17 Time of Evaluation: 05:49 - Subjective Subjective: 66 year old female patient seen at bedside for left 1st metatarsal head chronic ulceration secondary to DM. Patient is seen resting in bed comfortably, AAOx3 and NAD. Patient denies any acute events overnight. Patient denies any pain to her left foot at this visit. Patient is aware she is having a heart test prior to any surgical intervention. Patient denies N/V/F/D/C/SOB/calf pain. No other pedal complaints at this time. Objective - Vital Signs/Intake and Output Vital Signs (last 24 hours): Temp Pulse Resp BP Pulse Ox 98.6 F 72 19 142/85 99 05/24/17 04:55 05/24/17 04:55 05/24/17 04:55 05/24/17 04:55 05/24/17 04:55 Intake and Output: 05/23/17 05/24/17 18:59 06:59 Intake Total 1520 Balance 1520 - Medications Medications: Current Medications Aspirin (Aspirin) 325 mg PO DAILY [facility] Last Admin: 05/23/17 11:34 Dose: 325 mg Atorvastatin Calcium (Lipitor) 40 mg PO DAILY [facility] Last Admin: 05/23/17 10:55 Dose: 40 mg Clopidogrel Bisulfate (Plavix) 75 mg PO DAILY [facility] Last Admin: 05/23/17 10:57 Dose: 75 mg Dextrose (Dextrose 50% Inj) 0 ml IV STAT PRN; Protocol PRN Reason: Hyglycemia Protocol Dextrose (Glutose 15) 0 gm PO ONCE PRN; Protocol PRN Reason: Hypoglycemia Protocol Enoxaparin Sodium (Lovenox) 40 mg SC DAILY [facility] PRN Reason: Protocol Last Admin: 05/23/17 10:56 Dose: 40 mg Glucagon (Glucagen Diagnostic Kit) 0 mg IM STAT PRN; Protocol PRN Reason: Hypoglycemia Protocol Piperacillin Sod/Tazobactam (Sod 3.375 gm/ Sodium Chloride) 100 mls @ 100 mls/ hr IVPB Q12 [facility] Last Admin: 05/23/17 21:33 Dose: 100 mls/hr Sodium Chloride (Sodium Chloride 0.9%) 1,000 mls @ 80 mls/hr IV .[id number] [facility] Stop: 05/24/17 10:38 Last Admin: 05/23/17 21:40 Dose: 80 mls/hr Insulin Detemir (Levemir) 20 units SC QPM [facility] Last Admin: 05/23/17 18:37 Dose: Not Given Insulin Detemir (Levemir) 15 units SC QAM [facility] Last Admin: 05/23/17 10:55 Dose: 15 units Insulin Human Regular (Humulin R) 0 units SC ACHS [facility] PRN Reason: Protocol Last Admin: 05/23/17 21:47 Dose: Not Given Metoprolol Tartrate (Lopressor) 25 mg PO Q6 [facility] Last Admin: 05/24/17 03:31 Dose: 25 mg Mirtazapine (Remeron) 7.5 mg PO HS [facility] Last Admin: 05/23/17 21:36 Dose: 7.5 mg Morphine Sulfate (Morphine) 2 mg IVP Q6 PRN PRN Reason: Pain, moderate (4-7) Ramipril (Altace) 10 mg PO DAILY [facility] Last Admin: 05/23/17 10:53 Dose: 10 mg Senna/Docusate Sodium (Senokot S 50 Mg-8.6 Mg) 2 tab PO [facility] Last Admin: 05/23/17 21:37 Dose: Not Given Tramadol HCl (Ultram) 100 mg PO Q12 PRN PRN Reason: Pain, severe (8-10) - Labs Labs: 05/21/17 05:10 05/23/17 07:00 PT 13.1 Seconds (9.8-13.1) 05/20/17 06:00 INR 1.2 (0.9-1.2) 05/20/17 06:00 APTT 34.8 Seconds (25.6-37.1) 05/20/17 06:00 - Constitutional Appears: Well, Non-toxic, No Acute Distress - Extremities Exam Additional comments: LLE focused physical exam: Vasc: DP pulse nonpalpable. PT pulse weakly palpable 1/4. CFT <3 seconds to all digits. Temperature gradient cool to cool. No pedal edema noted Neuro: Protective sensation grossly intact Derm: Ulceration measuring 1.5 x 1.5 cm with dry necrotic base and hyperkeratotic rim. No drainage, purulence, or malodor noted. No tunneling or undermining. Ortho: No tenderness to palpation medial 1st met head - Neurological Exam Neurological Exam: Alert, Awake, Oriented x3 - Psychiatric Exam Psychiatric exam: Normal Affect, Normal Mood Assessment and Plan - Assessment and Plan (Free Text) Assessment: 66 year old female with left foot 1st metatarsal chronic ulceration and 1st metatarsal head osteomyelitis secondary to DM Plan: Patient seen and evaluated at bedside Discussed plan in detail with attending Dr. Reynoso Chart, vitals, labs reviewed = afebrile Applied xeroform and DSD to L foot Continue day 6 IV Zosyn Continue pain mgmt per medicine = Morphine, Tramadol Cardiac clearance pending perfusion scan scheduled for today, 05/24/2017 Pt will undergo revascularization at [facility] with Dr. Castro once she is cleared from cardiac standpoint Plan for OR sometime this week with Dr. Reynoso, pending cardiac clearance and possible revascularization with IR Podiatry will continue to follow while in house
[2017-05-24 06:15] LABS: BILIRUBIN,TOTAL 0.4 mg/dl (0.2-1.3); CALCIUM 8.7 mg/dL (8.4-10.2); POTASSIUM 3.9 MMOL/L (3.6-5.0); TOTAL PROTEIN 6.1 G/DL (6.3-8.2)
[2017-05-24] MEDS: Piperacillin/Tazobact 3.375 GM in Sodium Chloride 0.9% 100 ML IVPB SCH ×2 (09:14→21:00)
[2017-05-24] MEDS: Enoxaparin 40 mg Syringe SC SCH (09:16)
[2017-05-24] MEDS: Insulin Regular 100 units/ml SC SCH ×4 (09:24→22:00)
[2017-05-24] MEDS: Insulin Detemir 100 Units/ml Inj SC SCH ×2 (10:01→19:50)
--- NOTE | 2017-05-24 12:40 | CP.PCM.PN ---
Subjective - Date & Time of Evaluation Date of Evaluation: 05/24/17 Time of Evaluation: 07:40 - Subjective Subjective: Pt seen and examined at bedside, was seen sleeping comfortably in bed earlier in the morning. Pt is aware that she as to get cardiac clearance prior to any potential procedures done by IR or podiatry; is to get myocardial perfusion scan today. Records received today from [facility]; records indicate that pt had left basal ganglia hemorrhage in 01/2017, echo done in 01/2017 had EF of 57%; no records of LA in received paperwork. Denied changes in pain at site of ulcer, denied calf/leg pain/swelling. Objective - Vital Signs/Intake and Output Vital Signs (last 24 hours): Temp Pulse Resp BP Pulse Ox 97.8 F 73 18 143/85 99 05/24/17 12:00 05/24/17 12:00 05/24/17 12:00 05/24/17 12:00 05/24/17 12:00 Intake and Output: 05/24/17 05/24/17 06:59 18:59 Intake Total 1060 Balance 1060 - Medications Medications: Current Medications Aspirin (Aspirin) 325 mg PO DAILY [facility] Last Admin: 05/24/17 09:18 Dose: Not Given Atorvastatin Calcium (Lipitor) 40 mg PO DAILY [facility] Last Admin: 05/24/17 09:17 Dose: Not Given Clopidogrel Bisulfate (Plavix) 75 mg PO DAILY [facility] Last Admin: 05/24/17 09:16 Dose: Not Given Dextrose (Dextrose 50% Inj) 0 ml IV STAT PRN; Protocol PRN Reason: Hyglycemia Protocol Dextrose (Glutose 15) 0 gm PO ONCE PRN; Protocol PRN Reason: Hypoglycemia Protocol Enoxaparin Sodium (Lovenox) 40 mg SC DAILY [facility] PRN Reason: Protocol Last Admin: 05/24/17 09:16 Dose: 40 mg Glucagon (Glucagen Diagnostic Kit) 0 mg IM STAT PRN; Protocol PRN Reason: Hypoglycemia Protocol Piperacillin Sod/Tazobactam (Sod 3.375 gm/ Sodium Chloride) 100 mls @ 100 mls/ hr IVPB Q12 [facility] Last Admin: 05/24/17 09:14 Dose: 100 mls/hr Insulin Detemir (Levemir) 20 units SC QPM [facility] Last Admin: 05/23/17 18:37 Dose: Not Given Insulin Detemir (Levemir) 15 units SC QAM [facility] Last Admin: 05/24/17 10:01 Dose: Not Given Insulin Human Regular (Humulin R) 0 units SC ACHS [facility] PRN Reason: Protocol Last Admin: 05/24/17 11:43 Dose: Not Given Metoprolol Tartrate (Lopressor) 25 mg PO Q6 [facility] Last Admin: 05/24/17 09:17 Dose: Not Given Mirtazapine (Remeron) 7.5 mg PO HS [facility] Last Admin: 05/23/17 21:36 Dose: 7.5 mg Morphine Sulfate (Morphine) 2 mg IVP Q6 PRN PRN Reason: Pain, moderate (4-7) Ramipril (Altace) 10 mg PO DAILY [facility] Last Admin: 05/24/17 09:18 Dose: Not Given Senna/Docusate Sodium (Senokot S 50 Mg-8.6 Mg) 2 tab PO [facility] Last Admin: 05/23/17 21:37 Dose: Not Given Tramadol HCl (Ultram) 100 mg PO Q12 PRN PRN Reason: Pain, severe (8-10) - Labs Labs: 05/21/17 05:10 05/24/17 05:15 PT 13.1 Seconds (9.8-13.1) 05/20/17 06:00 INR 1.2 (0.9-1.2) 05/20/17 06:00 APTT 34.8 Seconds (25.6-37.1) 05/20/17 06:00 - Constitutional Appears: Non-toxic, No Acute Distress - Head Exam Head Exam: NORMAL INSPECTION - Eye Exam Eye Exam: EOMI - ENT Exam ENT Exam: Mucous Membranes Moist - Respiratory Exam Respiratory Exam: Clear to Ausculation Bilateral, NORMAL BREATHING PATTERN - Cardiovascular Exam Cardiovascular Exam: REGULAR RHYTHM, +S1, +S2 - GI/Abdominal Exam GI & Abdominal Exam: Soft, Normal Bowel Sounds - Extremities Exam Extremities Exam: absent: Calf Tenderness Additional comments: dressing on LLE in place over ulcer on 1st metatarsal, dry. - Neurological Exam Neurological Exam: Alert, Awake, Oriented x3 Assessment and Plan - Assessment and Plan (Free Text) Assessment: 66 yo F with PMH DM2, HTN, HLD, LA, CVA admitted due to most likely osteomyelitis in left lower extremity at first metatarsal, found to have severe arterial disease in both lower extremities. Pending revascularization by IR, but needs cardiac clearance first; currently pending cardiac clearance. Podiatry on board as well, following while inpt, possible intervention after pending revascularization by IR. Plan: 1) Osteomyelitis -podiatry consulted; further intervention regarding osteomyelitis by podiatry team -LE Doppler: Mild arterial disease is suggested at the proximal to mid leg from left groin to knee with potentially severe arterial disease in the runoff below the knee. Follow up MR or CT angiography is advised with contrast (see 2) peripheral arterial disease.) -Xray Foot: Study reveals what appears to represent some localized irregularity along the superomedial border of the head of first metatarsal. Also some irregularity of the overlying soft tissues and possibly small amount of subcutaneous air. Findings suggest osteomyelitis in this location. -Zosyn 3.375gm Q12, Day 6 -Tramadol for pain Q6 PRN 2) Peripheral Vascular Disease -CT angio showed severe disease: there is poor blood flow to the foot on the left, and no appreciable flow to the foot on the right lower extremity. Pt will likely need revascularization to improve flow. -Plan for revascularization currently on hold pending cardiac clearance -Cardiology consult - Dr. Russo -Pt is not currently cleared by cardiology -Cardiology recommends perfusion scan for evaluation, scheduled -Records obtained from [facility] - appears that there are no records indicative of past LA. Showed evidence of left basal ganglia hemorrhage in 2016, and echo with EF of 57% at that time. -Spoke to Dr. Russo today-- recommends to obtain neuro consult to see if pt can receive heparin for any cardiac intervention he may do -In light of records obtained from [facility] showing hx of hemorrhagic stroke , d/c antiplatelet therapy 3) Systolic Heart Failure -Echo showed EF 20%. Moderate LV dilation, borderline concentric left ventricular hypertrophy, left ventricular systolic function severely impaired. Moderate mitral regurgitation and moderate tricuspid regurgitation. -Records obtained from [facility] do not appear to show hx of LA. Diver Helper following case to be made aware of received records; records given to pt's nurse , Ivory. As per nurse, records will be put in pt's chart and then scanned when pt's files are sent to medical records after pt is discharged. -Continue with SHABBIR inhibitor -Cardiology following 4)Elevated BUN/Cr -Continue hydration, NS @ 80 ml/hr today -Monitor BUN/Cr 5) Diabetes Mellitus Type 2 -Monitor glucose - accucheck -Continue home meds: levemir 15u QAM, 20u QPM -Insulin coverage scale -A1C 7.3 -f/u microalbumin ordered previously -Diabetic diet -Hypoglycemia protocol in place 6)Hypertension -Controlled -Metoprolol 25 mg Q6 -As per cardiology, SHABBIR was changed from enalapril to ramipril 10mg po daily -Monitor BP 7)Hyperlipidemia -Continue home meds: atorvastatin -Total cholesterol 88, LDL 41, HDL 28 8) Anxiety -Seen by psychiatrist -Continue remeron for anxiety 9)DVT prophylaxis -SCDs, as records obtained from [facility] show hx of recent hemorrhagic stroke in January 2017
[2017-05-24] MEDS: Docusate-Senna 50 mg-8.6 mg Tab PO SCH (22:53)
--- NOTE | 2017-05-25 00:16 | CP.PCM.PN ---
Subjective - Date & Time of Evaluation Date of Evaluation: 05/24/17 Time of Evaluation: 18:00 - Subjective Subjective: PT UNDERWENT STRESS TEST TODAY. PRIOR RECORDS REVEAL HEMM CVA, NO WA AND NML EF 3 MONTHS AGO. PT MILDLY DYSPNIC. Objective - Vital Signs/Intake and Output Vital Signs (last 24 hours): Temp Pulse Resp BP Pulse Ox 98.1 F 73 20 128/81 95 05/24/17 19:13 05/24/17 22:52 05/24/17 19:13 05/24/17 22:52 05/24/17 19:13 - Medications Medications: Current Medications Atorvastatin Calcium (Lipitor) 40 mg PO DAILY [facility] Last Admin: 05/24/17 09:17 Dose: Not Given Dextrose (Dextrose 50% Inj) 0 ml IV STAT PRN; Protocol PRN Reason: Hyglycemia Protocol Dextrose (Glutose 15) 0 gm PO ONCE PRN; Protocol PRN Reason: Hypoglycemia Protocol Glucagon (Glucagen Diagnostic Kit) 0 mg IM STAT PRN; Protocol PRN Reason: Hypoglycemia Protocol Piperacillin Sod/Tazobactam (Sod 3.375 gm/ Sodium Chloride) 100 mls @ 100 mls/ hr IVPB Q12 [facility] Last Admin: 05/24/17 21:00 Dose: 100 mls/hr Insulin Detemir (Levemir) 20 units SC QPM [facility] Last Admin: 05/24/17 19:50 Dose: 20 unit Insulin Detemir (Levemir) 15 units SC QAM [facility] Last Admin: 05/24/17 10:01 Dose: Not Given Insulin Human Regular (Humulin R) 0 units SC ACHS [facility] PRN Reason: Protocol Last Admin: 05/24/17 22:00 Dose: Not Given Metoprolol Tartrate (Lopressor) 25 mg PO Q6 [facility] Last Admin: 05/24/17 22:52 Dose: 25 mg Mirtazapine (Remeron) 7.5 mg PO HS [facility] Last Admin: 05/24/17 22:52 Dose: 7.5 mg Morphine Sulfate (Morphine) 2 mg IVP Q6 PRN PRN Reason: Pain, moderate (4-7) Ramipril (Altace) 10 mg PO DAILY [facility] Last Admin: 05/24/17 09:18 Dose: Not Given Senna/Docusate Sodium (Senokot S 50 Mg-8.6 Mg) 2 tab PO HS [facility] Last Admin: 05/24/17 22:53 Dose: Not Given Tramadol HCl (Ultram) 100 mg PO Q12 PRN PRN Reason: Pain, severe (8-10) Last Admin: 05/24/17 15:15 Dose: 100 mg - Labs Labs: 05/21/17 05:10 05/24/17 05:15 PT 13.1 Seconds (9.8-13.1) 05/20/17 06:00 INR 1.2 (0.9-1.2) 05/20/17 06:00 APTT 34.8 Seconds (25.6-37.1) 05/20/17 06:00 - Constitutional Appears: Well - Head Exam Head Exam: ATRAUMATIC, NORMAL INSPECTION, NORMOCEPHALIC - Eye Exam Eye Exam: EOMI, Normal appearance, PERRL. absent: Conjunctival injection, Nystagmus, Periorbital swelling, Periorbital tenderness, Scleral icterus Pupil Exam: NORMAL ACCOMODATION, PERRL - ENT Exam ENT Exam: Mucous Membranes Moist, Normal Exam - Neck Exam Neck Exam: Full ROM, Normal Inspection - Respiratory Exam Respiratory Exam: Clear to Ausculation Bilateral, Rales Additional comments: MINIMAL RALES - Cardiovascular Exam Cardiovascular Exam: Diastolic murmur, REGULAR RHYTHM, +S1, +S2, Murmur. absent : Bradycardia, Tachycardia, Clicks, Gallop, Irregular Rhythm, JVD, RRR, Rubs, + S4 - GI/Abdominal Exam GI & Abdominal Exam: Soft, Normal Bowel Sounds - Rectal Exam Rectal Exam: Deferred - Extremities Exam Extremities Exam: Tenderness. absent: Joint Swelling, Pedal Edema - Back Exam Back Exam: NORMAL INSPECTION. absent: CVA tenderness (L), CVA tenderness (R), Full ROM, muscle spasm, paraspinal tenderness, rash noted, tenderness, vertebral tenderness - Neurological Exam Neurological Exam: Alert, Awake, CN II-XII Intact, Oriented x3. absent: Abnormal Gait, Altered, Motor Sensory Deficit, Reflexes Normal - Psychiatric Exam Psychiatric exam: Normal Affect, Normal Mood. absent: Agitated, Anxious, Depressed, Flat Affect, Homicidal Ideation, Manic, Suicidal Ideation - Skin Skin Exam: Dry, Intact, Normal Color, Warm. absent: Abrasion, Cyanosis, Diaphoretic, Erythema, Mottled, Pallor, Pallor, Petechiae, Rash, Urticaria, Vesicles Assessment and Plan (1) PVD (peripheral vascular disease) Status: Acute (2) SOB (shortness of breath) Status: Acute (3) Hx of myocardial infarction Status: Chronic (4) History of CVA (cerebrovascular accident) Status: Chronic (5) HTN (hypertension) Status: Chronic (6) Dyslipidemia Status: Chronic (7) History of tobacco abuse Status: Chronic (8) Osteomyelitis Status: Acute (9) Diabetic foot ulcer Status: Acute (10) Uncontrolled diabetes mellitus Status: Acute (11) Cardiomyopathy, dilated Status: Acute - Assessment and Plan (Free Text) Plan: D/W NEURO AT LENGTH GIVEN HEM CVA HX. PT WILL BE CONTINUED ON HER ANTICOAG AND ANTIPLT THERAPY FOR HER PVD AND PRESUMED CAD. AWAIT STRESS TEST RESULT. IN LIGHT OF CHANGE IN EF WILL LIKELY NEED CARDIAC CATH TO EVAL CAD. CONTINUE CURRENT MANAGEMENT. ON ADMISSION PT WAS NOT TAKING ANTIPLT THERAPY. WILL ATTEMPT TO OBTAIN IMAGES FROM ECHO DONE AT [facility]. LABS AND OTHER IMAGING REVIEWED. 45MIN TOTAL CARE
--- NOTE | 2017-05-25 01:12 | CON ---
DATE: 05/24/2017 REASON FOR CONSULTATION: Neurological clearance for her vascular procedure in her foot. CHIEF COMPLAINT: The patient was brought in to [facility] on 05/19/2017 with left foot wound infection. She was scheduled to have debridement for her osteomyelitis from neurological point of view. They requested clearance because she did have hemorrhagic stroke few months ago. HISTORY OF PRESENT ILLNESS: Betina Carias is a 66-year-old moderately built, right-handed female, who came to [facility] with a history of chronic infection of left foot. During the workup, the patient was found to have severe peripheral vascular disease associating with possible osteomyelitis. Since she carried hemorrhagic stroke 3-4 months ago, with left side weakness left, I was called in to evaluate her to get the clearance for the procedure from vascular point of view. PAST MEDICAL HISTORY: Hypertension, [id number] diabetes mellitus, and stroke. PERSONAL HISTORY: Denies smoking or alcohol use. ALLERGIES: NO KNOWN ALLERGIES. MEDICATIONS: Altace, Glucovance, Humulin, Levemir, Lipitor, Lopressor, morphine, Remeron, and Ultram. REVIEW OF SYSTEMS: All 12 systems been reviewed from neurological point of view. She does have left-sided weakness from her old stroke on the right side. PHYSICAL EXAMINATION: VITAL SIGNS: Blood pressure 128/81, mean arterial pressure of 96, respiratory rate 18, temperature afebrile. NECK: Supple. No carotid bruits. HEART: Sounds regular. CHEST: Fair air entry. EXTREMITIES: No edema in legs. No edema of legs on the right side; however, mild edema due to the infection on her left foot with dressing was covered. NEUROLOGIC EXAMINATION: MENTAL STATUS EXAMINATION: She is awake, alert and oriented to person, place, and time. Communicable only in Taiwanese. She follows 2- to 3-step complex commands.NO right and left confusion. CRANIAL NERVE EXAMINATION: Visual field intact. Pupils reactive to light. Extraocular movement normal. No nystagmus. No facial sensory deficit. No facial asymmetry. Hearing is normal. Tongue is midline. Good gag. MOTOR EXAMINATION: An outstretched hand with eyes closed, no drift is noted. Power is symmetric on either side. She was able to lift both lower extremities against the gravity. Deep tendon reflexes; grossly absent, plantars are downgoing on the right side, left side was not done due to her foot infection. COORDINATION: [id number] test is intact. GAIT: Deferred at this time. CONCLUSION: Upon reviewing her history and neurological examination, Ms. Betina Carias, being presenting with nearly 4 months of history of hemorrhagic stroke on her right side affecting the left side. The current examination shows some mild distal sensorimotor neuropathy. From neurological point of view, the patient can be given antiplatelets as well as anticoagulation can be given, this is more than 4 months of period from her stroke. However, before administrating any anticoagulant or antiplatelets, I strongly recommended her to have CT of the head to rule out intracerebral bleed prior to administrating any drugs to make her bleed. Otherwise, no further workup is needed from neurological point of view. Case is discussed with the network control technician. Anish Locke MD MTDD
[2017-05-25] MEDS: Insulin Regular 100 units/ml SC SCH ×4 (06:29→22:00)
--- NOTE | 2017-05-25 08:25 | CP.PCM.PN ---
Subjective - Date & Time of Evaluation Date of Evaluation: 05/25/17 Time of Evaluation: 08:15 - Subjective Subjective: 66 year old female patient seen at bedside for left 1st metatarsal head chronic ulceration secondary to DM. Patient is seen resting in bed comfortably, AAOx3 and NAD. Patient denies any acute events overnight. Patient reports tenderness to left foot. Patient denies V/F/D/C/SOB/calf pain but reports nausea. No other pedal complaints at this time. Objective - Vital Signs/Intake and Output Vital Signs (last 24 hours): Temp Pulse Resp BP Pulse Ox 98.5 F 76 18 147/83 95 05/25/17 08:00 05/25/17 08:00 05/25/17 08:00 05/25/17 08:00 05/25/17 08:00 - Medications Medications: Current Medications Atorvastatin Calcium (Lipitor) 40 mg PO DAILY [facility] Last Admin: 05/24/17 09:17 Dose: Not Given Dextrose (Dextrose 50% Inj) 0 ml IV STAT PRN; Protocol PRN Reason: Hyglycemia Protocol Dextrose (Glutose 15) 0 gm PO ONCE PRN; Protocol PRN Reason: Hypoglycemia Protocol Glucagon (Glucagen Diagnostic Kit) 0 mg IM STAT PRN; Protocol PRN Reason: Hypoglycemia Protocol Piperacillin Sod/Tazobactam (Sod 3.375 gm/ Sodium Chloride) 100 mls @ 100 mls/ hr IVPB Q12 [facility] Last Admin: 05/24/17 21:00 Dose: 100 mls/hr Insulin Detemir (Levemir) 20 units SC QPM [facility] Last Admin: 05/24/17 19:50 Dose: 20 unit Insulin Detemir (Levemir) 15 units SC QAM [facility] Last Admin: 05/24/17 10:01 Dose: Not Given Insulin Human Regular (Humulin R) 0 units SC ACHS [facility] PRN Reason: Protocol Last Admin: 05/25/17 06:29 Dose: Not Given Metoprolol Tartrate (Lopressor) 25 mg PO Q6 [facility] Last Admin: 05/25/17 04:00 Dose: 25 mg Mirtazapine (Remeron) 7.5 mg PO HS [facility] Last Admin: 05/24/17 22:52 Dose: 7.5 mg Morphine Sulfate (Morphine) 2 mg IVP Q6 PRN PRN Reason: Pain, moderate (4-7) Ramipril (Altace) 10 mg PO DAILY [facility] Last Admin: 05/24/17 09:18 Dose: Not Given Senna/Docusate Sodium (Senokot S 50 Mg-8.6 Mg) 2 tab PO HS [facility] Last Admin: 05/24/17 22:53 Dose: Not Given Tramadol HCl (Ultram) 100 mg PO Q12 PRN PRN Reason: Pain, severe (8-10) Last Admin: 05/24/17 15:15 Dose: 100 mg - Labs Labs: 05/21/17 05:10 05/24/17 05:15 PT 13.1 Seconds (9.8-13.1) 05/20/17 06:00 INR 1.2 (0.9-1.2) 05/20/17 06:00 APTT 34.8 Seconds (25.6-37.1) 05/20/17 06:00 - Constitutional Appears: Well, Non-toxic, No Acute Distress - Extremities Exam Additional comments: LLE focused physical exam: Vasc: DP pulse nonpalpable. PT pulse weakly palpable 1/4. CFT <3 seconds to all digits. Temperature gradient cool to cool. No pedal edema noted Neuro: Protective sensation grossly intact Derm: Ulceration measuring 1.5 x 1.5 cm with dry necrotic base and hyperkeratotic rim noted. No drainage, purulence, or malodor noted. No tunneling or undermining. No probe to bone. Ortho: Very mild tenderness to palpation medial 1st met head - Neurological Exam Neurological Exam: Alert, Awake, Normal Gait - Psychiatric Exam Psychiatric exam: Normal Affect, Normal Mood Assessment and Plan - Assessment and Plan (Free Text) Assessment: 66 year old female with left foot 1st metatarsal chronic ulceration and 1st metatarsal head osteomyelitis secondary to DM Plan: Patient seen and evaluated at bedside Discussed plan in detail with attending Dr. Reynoso Chart, vitals, labs reviewed = afebrile Applied xeroform and DSD to L foot Continue day 7 IV Zosyn Continue pain mgmt per medicine = Morphine, Tramadol Cardiac clearance pending perfusion scan today (05/25/17) awaiting results Pt will undergo revascularization at [facility] with Dr. Castro once she is cleared from cardiac standpoint Plan for OR sometime this week with Dr. Reynoso, pending cardiac clearance and possible revascularization with IR Podiatry will continue to follow while in house
[2017-05-25] MEDS: Piperacillin/Tazobact 3.375 GM in Sodium Chloride 0.9% 100 ML IVPB SCH ×2 (08:49→22:26)
[2017-05-25] MEDS: Insulin Detemir 100 Units/ml Inj SC SCH ×2 (08:50→17:27)
--- NOTE | 2017-05-25 09:39 | CT ---
PROCEDURE: CT HEAD WITHOUT CONTRAST. HISTORY: cva COMPARISON: None available. TECHNIQUE: Axial computed tomography images were obtained through the head/brain without intravenous contrast. Radiation dose: Total exam DLP = 863.12 mGy-cm. This CT exam was performed using one or more of the following dose reduction techniques: Automated exposure control, adjustment of the mA and/or kV according to patient size, and/or use of iterative reconstruction technique. FINDINGS: HEMORRHAGE: No intracranial hemorrhage. BRAIN: No mass effect or edema. Minimal diffuse age-appropriate cerebral atrophy. Mild periventricular white matter lucency consistent with age-related microvascular ischemic change. Multiple bilateral small basal ganglia lacunar infarcts. Bilateral old thalamic lacunar infarcts. No evidence of acute infarct. VENTRICLES: Unremarkable. No hydrocephalus. CALVARIUM: Unremarkable. PARANASAL SINUSES: Unremarkable as visualized. No significant inflammatory changes. MASTOID AIR CELLS: Unremarkable as visualized. No inflammatory changes. OTHER FINDINGS: None. IMPRESSION: No intracranial mass, hemorrhage or evidence of acute infarct. Age-appropriate atrophy and chronic microvascular ischemic change. Bilateral old basal ganglia and thalamic lacunar infarcts.
--- NOTE | 2017-05-25 09:53 | CP.PCM.PN ---
Subjective - Date & Time of Evaluation Date of Evaluation: 05/25/17 Time of Evaluation: 09:34 - Subjective Subjective: Patient was seen and examined at the bedside. Today she sates that she has minimal pain at the site of her ulcer (left metatarsal). Pain exacerbated when bearing weight on it but at rest, she feels comfortable. Pt denies any SOB, CP, Calf pain, fever, chills, sensory or motor deficits. Objective - Vital Signs/Intake and Output Vital Signs (last 24 hours): Temp Pulse Resp BP Pulse Ox 98.5 F 76 18 155/94 H 95 05/25/17 08:00 05/25/17 08:00 05/25/17 08:00 05/25/17 08:49 05/25/17 08:00 - Medications Medications: Current Medications Atorvastatin Calcium (Lipitor) 40 mg PO DAILY [facility] Last Admin: 05/25/17 08:50 Dose: 40 mg Dextrose (Dextrose 50% Inj) 0 ml IV STAT PRN; Protocol PRN Reason: Hyglycemia Protocol Dextrose (Glutose 15) 0 gm PO ONCE PRN; Protocol PRN Reason: Hypoglycemia Protocol Glucagon (Glucagen Diagnostic Kit) 0 mg IM STAT PRN; Protocol PRN Reason: Hypoglycemia Protocol Piperacillin Sod/Tazobactam (Sod 3.375 gm/ Sodium Chloride) 100 mls @ 100 mls/ hr IVPB Q12 [facility] Last Admin: 05/25/17 08:49 Dose: 100 mls/hr Insulin Detemir (Levemir) 20 units SC QPM [facility] Last Admin: 05/24/17 19:50 Dose: 20 unit Insulin Detemir (Levemir) 15 units SC QAM [facility] Last Admin: 05/25/17 08:50 Dose: Not Given Insulin Human Regular (Humulin R) 0 units SC ACHS [facility] PRN Reason: Protocol Last Admin: 05/25/17 06:29 Dose: Not Given Metoprolol Tartrate (Lopressor) 25 mg PO Q6 [facility] Last Admin: 05/25/17 04:00 Dose: 25 mg Mirtazapine (Remeron) 7.5 mg PO HS [facility] Last Admin: 05/24/17 22:52 Dose: 7.5 mg Morphine Sulfate (Morphine) 2 mg IVP Q6 PRN PRN Reason: Pain, moderate (4-7) Ramipril (Altace) 10 mg PO DAILY [facility] Last Admin: 05/25/17 08:49 Dose: 10 mg Senna/Docusate Sodium (Senokot S 50 Mg-8.6 Mg) 2 tab PO HS [facility] Last Admin: 05/24/17 22:53 Dose: Not Given Tramadol HCl (Ultram) 100 mg PO Q12 PRN PRN Reason: Pain, severe (8-10) Last Admin: 05/24/17 15:15 Dose: 100 mg - Labs Labs: 05/21/17 05:10 05/24/17 05:15 PT 13.1 Seconds (9.8-13.1) 05/20/17 06:00 INR 1.2 (0.9-1.2) 05/20/17 06:00 APTT 34.8 Seconds (25.6-37.1) 05/20/17 06:00 - Head Exam Head Exam: ATRAUMATIC - ENT Exam ENT Exam: Mucous Membranes Moist - Respiratory Exam Respiratory Exam: Clear to Ausculation Bilateral. absent: Accessory Muscle Use , Rales, Wheezes - Cardiovascular Exam Cardiovascular Exam: REGULAR RHYTHM, +S1, +S2. absent: Murmur - Extremities Exam Extremities Exam: absent: Calf Tenderness, Pedal Edema Additional comments: Left foot metatarsal- dry necrotic ulcerating lesion ~1x1 cm, no drainage, slight redness around the ulcer, no tenderness to palpation, no warmth. Dorsal Pedal pulse very weak +1 Motor and sensation in tact R. Dorsal pedal pulse non palpable, foot is cold, motor and sensation in tact. - Neurological Exam Neurological Exam: Alert, Awake - Psychiatric Exam Psychiatric exam: Normal Affect Assessment and Plan - Assessment and Plan (Free Text) Assessment: Assessment: 66 yo female with a PMHx of Severe PVD, DM2, HTN, HLD, NC , and CVA admitted for osteomylelitis of the left metatarsal and found to have severe arterial disease in both extremitites. Possible intervention by IR or Podiatry. Plan: 1) Osteomyelitis -Pt is having mild-moderate pain that is being adequately managed. Afebrile -Podiatry consulted; further intervention regarding osteomyelitis by podiatry team; Likely to need revascularization as per Podiatry -Xray Foot: Study reveals what appears to represent some localized irregularity along the superomedial border of the head of first metatarsal. Also some irregularity of the overlying soft tissues and possibly small amount of subcutaneous air. Findings suggest osteomyelitis in this location. -C/w Zosyn 3.375gm Q12, Day 7 -Tramadol for pain Q12. Morphine prn 2) Peripheral Vascular Disease -LE Doppler: Mild arterial disease is suggested at the proximal to mid leg from left groin to knee with potentially severe arterial disease in the runoff below the knee. Follow up MR or CT angiography is advised with contrast (see 2) peripheral arterial disease.) -CT angio showed severe disease: there is poor blood flow to the foot on the left, and no appreciable flow to the foot on the right lower extremity. Pt will likely need revascularization to improve flow. -F/u on Podiatry's recommendation 3) Systolic Heart Failure Stable. Pt is not having symptoms of acute CHF decompensation (denies SOB, Physical Exam negative for LE swelling) -Echo showed EF 20%. Moderate LV dilation, borderline concentric left ventricular hypertrophy, left ventricular systolic function severely impaired. Moderate mitral regurgitation and moderate tricuspid regurgitation. [place] [facility] [place] that [place] are no records indicative of past NC. 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 -Neurology consult -pt can be given antiplatelets and anticoagulants as it has been >4 months from her stroke as per neuro -Cardiology consulted- We spoke with Dr. Russo and the patient is cleared for revascularization from a cardiac stand point and can c/w Plavix, Aspirin and Lovonox -Ramipril 10mg PO daily -Metroprolol 25mg PO q6 -Plavix restarted- 75mg PO daily -Asp 81mg PO daily -Heart healthy diet 4)Elevated BUN/Cr -Crea 1.5 today (improving) -Continute Monitoring BUN/Cr 5) Diabetes Mellitus Type 2 -Monitor glucose - accucheck -Continue home meds: levemir 15u QAM, 20u QPM -Insulin coverage scale -A1C 7.3 -f/u microalbumin ordered previously -Diabetic diet -Hypoglycemia protocol in place 6)Hypertension -Controlled -Metoprolol 25 mg Q6 -As per cardiology, SHABBIR was changed from enalapril to ramipril 10mg po daily -Monitor BP 7)Hyperlipidemia -Continue home meds: atorvastatin -Total cholesterol 88, LDL 41, HDL 28 8) Anxiety -Seen by psychiatrist -Continue remeron for anxiety 9)DVT prophylaxis -SCDs, as [place] [facility] [place] hx of recent hemorrhagic stroke in January 2017
--- NOTE | 2017-05-25 12:38 | CARD ---
APPROVED REPORT Protocol: LEXISCAN Test Type: STRESS NUCLEAR Medications: ASPIRIN 325MG, ATORVASTATIN, CALCIUM 40MG, CLOPIDOGREL BISULFATE 75MG, ENOXAPARIN SODIUM 40MG, GLUCAGON INSULIN DETEMIR LEVEMIR 20UNITS LEVEMIR 15UNITS Medical History: PMH OF DM-2, HTN, HLD, [place] 1.5 YRS AGO, STROKE 3 MONTH AGO Target HR: 155 bpm Resting ECG: abnormal Resting Heart Rate: 79 bpm Resting Blood Pressure: 155/94mmHg submaximum (85%): 132 bpm TEST SUMMARY PREINJECTPRE-[id number]. [id number]. INJECTIONNS FLUSH00:[id number]. INJECTIONNUC MED00:[id number]. [id number]/[id number]. PROCEDURE Pharmacologic stress testing was performed using 0.4mg per 5ml of regadenoson given intravenously over 7-10 seconds. POST EXERCISE Reason for Termination: COMPLETED THE STUDY Target HR: No Max HR: 79 bpm 56% of Maximum Predicted HR: 155 bpm Exercise duration: 01:00 min:sec, 0 Stage Exercise capacity: 1.0METs Max Blood Pressure: 159/96mmHg Blood Pressure response to exercise: PHARMACOLOGICAL Heart Rate response to exercise: PHARMACOLOGICAL Chest Pain: No, none Angina index: 0 Arrhythmia: No, none ST Change: Yes, NO CHANGE Deviation: 0 mm Clinical Indications Under Appropriate Use Criteria pre-op evaluation for lower extremity bypass surgery Stress EKG Interpretation NORMAL PHARMACOLOGICAL PORTION OF THE STRESS TEST EXAM: Myocardial Perfusion REST/STRESS Image QualityGood Imaging Protocol The imaging protocol used to acquire images was Rest Tc-99m/stress Tc-99m 1 day Rest Spect myocardial perfusion imaging was performed in supine position 30 minutes following the injection of 10 mCi of Tc-99 Myoview. Time of rest injection: 12:15 Time of rest imagin:45 At peak stress, the patient was injected intravenously with 25mCi of Tc-99 tetrofosmin after an infusion time of minutes and seconds. Time of stress injection: 14:10 Time of stress imagin:00 Gated Stress Spect was performed 50 minutes after intravenous Tc-99 Myoview injection. The images were gated to evaluate regional wall motion and calculate ventricular ejection fraction. NUCLEAR IMAGE INTERPRETATION Study quality was excellent. Left Ventricular size was Enlarged at Rest and Stress. LV Perfusion There was a large zone of fixed, abscent perfusion in the inferior, posterior and posterior-lateral vega consistent was scarring. The other segments of the left ventricle had good perfusion. This pattern was seen on the standard three tomographic images as well as the bullseye plot images. LV Perfusion 1 Perfusion Defect Location: inferior-posterior Wall Motion The inferior, posterior, and posterior-lateral vega had no contraction. The other areas of the left ventricle were very hypokinetic. LVEF of 28% CONCLUSION 1. The patient is a 66 year old female with PAD who will be undergoing lower extremity revascularization. She also has a history of hypertension, CAD, hyperlipidemia, diabetes mellitus and she had an old CVA. Her medicines incluse aspirin, atorvastatin, plavix, lovenox and insulin. The resting EKG shows sinus rhythm, a possible old inferior wall myocardial infarction and T wave inversions in limb leads I and aVL as well as chest leads V1 and V2. The patient was hooked-up to a [employer] glost placer and lexiscan at a dose of 0.4 mg/5ml was injected intravenously. The patient tolerated the lexiscan well without any chest pain or significant EKG changes. The vital signs were stable and there weren't any side effects from the lexiscan. The nuclear scans showed scarring as detailed above but there wasn't any ischemia. The LVEF on the gated study was 28%. 2. Impression: Negative pharmacological stress test for ischemia. LVEF of 28%. Please see the above for any further details. Recommendation Dr. Inés Le was spoken to about this test result and he will make cardiac decisions on this patient.
--- NOTE | 2017-05-25 19:41 | CP.PCM.PN ---
Subjective - Date & Time of Evaluation Date of Evaluation: 05/25/17 Time of Evaluation: 19:39 - Subjective Subjective: pt with mild dyspnea, given her ef of 25%. no cp Objective - Vital Signs/Intake and Output Vital Signs (last 24 hours): Temp Pulse Resp BP Pulse Ox 98.3 F 65 20 117/71 92 L 05/25/17 19:38 05/25/17 19:38 05/25/17 19:38 05/25/17 19:38 05/25/17 19:38 Intake and Output: 05/25/17 05/26/17 18:59 06:59 Intake Total 800 Balance 800 - Medications Medications: Current Medications Aspirin (Aspirin Chewable) 81 mg PO DAILY [facility] Last Admin: 05/25/17 13:31 Dose: 81 mg Atorvastatin Calcium (Lipitor) 40 mg PO DAILY [facility] Last Admin: 05/25/17 08:50 Dose: 40 mg Clopidogrel Bisulfate (Plavix) 75 mg PO DAILY [facility] Last Admin: 05/25/17 13:31 Dose: 75 mg Dextrose (Dextrose 50% Inj) 0 ml IV STAT PRN; Protocol PRN Reason: Hyglycemia Protocol Dextrose (Glutose 15) 0 gm PO ONCE PRN; Protocol PRN Reason: Hypoglycemia Protocol Enoxaparin Sodium (Lovenox) 40 mg SC DAILY [facility] PRN Reason: Protocol Glucagon (Glucagen Diagnostic Kit) 0 mg IM STAT PRN; Protocol PRN Reason: Hypoglycemia Protocol Piperacillin Sod/Tazobactam (Sod 3.375 gm/ Sodium Chloride) 100 mls @ 100 mls/ hr IVPB Q12 [facility] Last Admin: 05/25/17 08:49 Dose: 100 mls/hr Insulin Detemir (Levemir) 20 units SC QPM [facility] Last Admin: 05/25/17 17:27 Dose: 20 unit Insulin Detemir (Levemir) 15 units SC QAM [facility] Last Admin: 05/25/17 08:50 Dose: Not Given Insulin Human Regular (Humulin R) 0 units SC ACHS [facility] PRN Reason: Protocol Last Admin: 05/25/17 16:36 Dose: 2 unit Metoprolol Tartrate (Lopressor) 25 mg PO Q6 [facility] Last Admin: 05/25/17 16:37 Dose: 25 mg Mirtazapine (Remeron) 7.5 mg PO HS [facility] Last Admin: 05/24/17 22:52 Dose: 7.5 mg Morphine Sulfate (Morphine) 2 mg IVP Q6 PRN PRN Reason: Pain, moderate (4-7) Ramipril (Altace) 10 mg PO DAILY [facility] Last Admin: 05/25/17 08:49 Dose: 10 mg Senna/Docusate Sodium (Senokot S 50 Mg-8.6 Mg) 2 tab PO HS [facility] Last Admin: 05/24/17 22:53 Dose: Not Given Tramadol HCl (Ultram) 100 mg PO Q12 PRN PRN Reason: Pain, severe (8-10) Last Admin: 05/24/17 15:15 Dose: 100 mg - Labs Labs: 05/21/17 05:10 05/24/17 05:15 PT 13.1 Seconds (9.8-13.1) 05/20/17 06:00 INR 1.2 (0.9-1.2) 05/20/17 06:00 APTT 34.8 Seconds (25.6-37.1) 05/20/17 06:00 - Constitutional Appears: Well - Head Exam Head Exam: ATRAUMATIC, NORMAL INSPECTION, NORMOCEPHALIC - Eye Exam Eye Exam: EOMI, Normal appearance, PERRL. absent: Conjunctival injection, Nystagmus, Periorbital swelling, Periorbital tenderness, Scleral icterus Pupil Exam: NORMAL ACCOMODATION, PERRL - ENT Exam ENT Exam: Mucous Membranes Moist, Normal Exam. absent: Mucous Membranes Dry, Normal External Ear Exam, Normal Oropharynx, TM's Normal Bilaterally - Neck Exam Neck Exam: Full ROM, Normal Inspection. absent: Lymphadenopathy, Meningismus, Tenderness, Thyromegaly - Respiratory Exam Respiratory Exam: Rales, NORMAL BREATHING PATTERN. absent: Accessory Muscle Use , Chest Wall Tenderness, Decreased Breath Sounds, Clear to Ausculation Bilateral , Prolonged Expiratory Phase, Rhonchi, Wheezes, Respiratory Distress, Stridor - Cardiovascular Exam Cardiovascular Exam: Irregular Rhythm, +S1, +S2, Murmur. absent: Bradycardia, Tachycardia, Clicks, Diastolic murmur, Gallop, REGULAR RHYTHM, JVD, RRR, Rubs, + S4 - GI/Abdominal Exam GI & Abdominal Exam: Soft, Normal Bowel Sounds. absent: Bruit, Distended, Firm , Guarding, Rigid, Tenderness, Diminished Bowel Sounds, Hernia, Hyperactive Bowel Sounds, Hypoactive Bowel Sounds, Organomegaly, Pulsatile Mass, Rebound, Mass - Extremities Exam Extremities Exam: Full ROM, Tenderness - Back Exam Back Exam: NORMAL INSPECTION. absent: CVA tenderness (L), CVA tenderness (R), Full ROM, muscle spasm, paraspinal tenderness, rash noted, tenderness, vertebral tenderness - Neurological Exam Neurological Exam: Alert, Awake, CN II-XII Intact, Oriented x3. absent: Abnormal Gait, Altered, Motor Sensory Deficit, Normal Gait, Reflexes Normal - Psychiatric Exam Psychiatric exam: Normal Affect, Normal Mood. absent: Agitated, Anxious, Depressed, Flat Affect, Homicidal Ideation, Manic, Suicidal Ideation - Skin Skin Exam: Dry, Intact, Normal Color, Warm. 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 her ef is severely reduced. pt may proceed to vascular lab for le pvi. would recommend monitoring fluids as ef is low and pt will be supine. also cont bbs and antiplts. PRIOR TO D/C THE PT SHOULD BE FITTED WITH A LIFE VEST. AND EVALUATED FOR AICD IN 3 MONTHS. 90 MIN TOTAL CARE. will follow. thank you.
[2017-05-25] MEDS: Docusate-Senna 50 mg-8.6 mg Tab PO SCH (22:21)
[2017-05-26] MEDS: Insulin Regular 100 units/ml SC SCH ×4 (06:51→22:42)
--- NOTE | 2017-05-26 07:24 | CP.PCM.PN ---
Addendum entered and electronically signed by Ajay Shook DPM 05/26/17 10:20 : Spoke with Dr. Castro. Dr. Castro will not be here to do the revascularization. His colleague, Dr. Adan Ramos, at [facility] will be able to do the revascularization for the patient before noon tomorrow (05/27/17) at [facility]. Patient will need to be transferred to [facility] today for revascularization tomorrow morning. If revascularization is successful, Dr. Reynoso plans on bringing patient to the OR next week for removal of infected bone : exosectomy of medial metatarsal head and removal of tibial seasmoid. Patient will also need 4-6 weeks of IV antibiotics. Original Note: <Ajay Shook - Last Filed: 05/26/17 07:22> Subjective - Date & Time of Evaluation Date of Evaluation: 05/26/17 Time of Evaluation: 07:22 - Subjective Subjective: 66 year old female patient seen at bedside for left 1st metatarsal head chronic ulceration secondary to DM. Patient is seen resting in bed comfortably, AAOx3 and NAD. Patient reports tenderness to left foot. Patient denies any acute events overnight. Patient denies V/F/D/C/SOB/N or calf pain. No other pedal complaints at this time. Objective - Vital Signs/Intake and Output Vital Signs (last 24 hours): Temp Pulse Resp BP Pulse Ox 98 F 70 20 136/81 97 05/26/17 05:00 05/26/17 05:00 05/26/17 05:00 05/26/17 05:00 05/26/17 05:00 - Medications Medications: Current Medications Aspirin (Aspirin Chewable) 81 mg PO DAILY [facility] Last Admin: 05/25/17 13:31 Dose: 81 mg Atorvastatin Calcium (Lipitor) 40 mg PO DAILY [facility] Last Admin: 05/25/17 08:50 Dose: 40 mg Clopidogrel Bisulfate (Plavix) 75 mg PO DAILY [facility] Last Admin: 05/25/17 13:31 Dose: 75 mg Dextrose (Dextrose 50% Inj) 0 ml IV STAT PRN; Protocol PRN Reason: Hyglycemia Protocol Dextrose (Glutose 15) 0 gm PO ONCE PRN; Protocol PRN Reason: Hypoglycemia Protocol Enoxaparin Sodium (Lovenox) 40 mg SC DAILY [facility] PRN Reason: Protocol Glucagon (Glucagen Diagnostic Kit) 0 mg IM STAT PRN; Protocol PRN Reason: Hypoglycemia Protocol Piperacillin Sod/Tazobactam (Sod 3.375 gm/ Sodium Chloride) 100 mls @ 100 mls/ hr IVPB Q12 [facility] Last Admin: 05/25/17 22:26 Dose: 100 mls/hr Insulin Detemir (Levemir) 20 units SC QPM [facility] Last Admin: 05/25/17 17:27 Dose: 20 unit Insulin Detemir (Levemir) 15 units SC QAM [facility] Last Admin: 05/25/17 08:50 Dose: Not Given Insulin Human Regular (Humulin R) 0 units SC ACHS [facility] PRN Reason: Protocol Last Admin: 05/26/17 06:51 Dose: Not Given Metoprolol Tartrate (Lopressor) 25 mg PO Q6 [facility] Last Admin: 05/26/17 04:00 Dose: 25 mg Mirtazapine (Remeron) 7.5 mg PO HS [facility] Last Admin: 05/25/17 22:19 Dose: 7.5 mg Morphine Sulfate (Morphine) 2 mg IVP Q6 PRN PRN Reason: Pain, moderate (4-7) Ramipril (Altace) 10 mg PO DAILY [facility] Last Admin: 05/25/17 08:49 Dose: 10 mg Senna/Docusate Sodium (Senokot S 50 Mg-8.6 Mg) 2 tab PO HS [facility] Last Admin: 05/25/17 22:21 Dose: Not Given Tramadol HCl (Ultram) 100 mg PO Q12 PRN PRN Reason: Pain, severe (8-10) Last Admin: 05/25/17 22:23 Dose: 100 mg - Labs Labs: 05/21/17 05:10 05/24/17 05:15 PT 13.1 Seconds (9.8-13.1) 05/20/17 06:00 INR 1.2 (0.9-1.2) 05/20/17 06:00 APTT 34.8 Seconds (25.6-37.1) 05/20/17 06:00 - Constitutional Appears: Well, Non-toxic, No Acute Distress - Extremities Exam Additional comments: Vasc: DP pulse nonpalpable. PT pulse weakly palpable 1/4. CFT <3 seconds to all digits. Temperature gradient cool to cool. No pedal edema noted bilaterally. Neuro: Protective sensation grossly intact Derm: Ulceration measuring 1.5 x 1.5 cm x. 2 cm with dry necrotic base and hyperkeratotic rim noted. No drainage, purulence, or malodor noted. No tunneling. Undermining is noted to inferior margin. Ortho: Very mild tenderness to palpation medial 1st met head - Neurological Exam Neurological Exam: Alert, Awake, Oriented x3 - Psychiatric Exam Psychiatric exam: Normal Affect, Normal Mood Assessment and Plan - Assessment and Plan (Free Text) Assessment: 66 year old F PMHx DM2, HTN, HLD, [place], stroke with left foot 1st metatarsal ulceration and 1st metatarsal head osteomyelitis secondary to DM Plan: Patient seen and evaluated at bedside. Discussed with attending, Dr. Reynoso. Chart, vitals, labs reviewed = afebrile Continue abx per ID = Zosyn Continue pain mgmt per medicine = Morphine, Tramadol Plan for OR with Dr. Reynoso, pending revascularization Cardiac clearance obtained fore revascularization F/U vascular consult w/Dr. Castro about revascularization. Podiatry will continue to follow while in house <Jun Reynoso - Last Filed: 05/26/17 17:35> Subjective - Subjective Subjective: Pt seen at bedside .Needs vascular procedure at [facility] . Severe PAD as per vascular Dept . Objective - Vital Signs/Intake and Output Vital Signs (last 24 hours): Temp Pulse Resp BP Pulse Ox 98.4 F 66 20 138/82 95 05/26/17 15:30 05/26/17 16:59 05/26/17 15:30 05/26/17 16:59 05/26/17 15:30 - Medications Medications: Current Medications Aspirin (Aspirin Chewable) 81 mg PO DAILY [facility] Last Admin: 05/26/17 08:53 Dose: 81 mg Atorvastatin Calcium (Lipitor) 40 mg PO DAILY [facility] Last Admin: 05/26/17 08:55 Dose: 40 mg Clopidogrel Bisulfate (Plavix) 75 mg PO DAILY [facility] Last Admin: 05/26/17 08:58 Dose: 75 mg Dextrose (Dextrose 50% Inj) 0 ml IV STAT PRN; Protocol PRN Reason: Hyglycemia Protocol Dextrose (Glutose 15) 0 gm PO ONCE PRN; Protocol PRN Reason: Hypoglycemia Protocol Enoxaparin Sodium (Lovenox) 40 mg SC DAILY [facility] PRN Reason: Protocol Last Admin: 05/26/17 08:56 Dose: 40 mg Glucagon (Glucagen Diagnostic Kit) 0 mg IM STAT PRN; Protocol PRN Reason: Hypoglycemia Protocol Piperacillin Sod/Tazobactam (Sod 3.375 gm/ Sodium Chloride) 100 mls @ 100 mls/ hr IVPB Q12 [facility] Last Admin: 05/26/17 08:59 Dose: 100 mls/hr Insulin Detemir (Levemir) 20 units SC QPM [facility] Last Admin: 05/25/17 17:27 Dose: 20 unit Insulin Detemir (Levemir) 15 units SC QAM [facility] Last Admin: 05/26/17 08:54 Dose: 15 units Insulin Human Regular (Humulin R) 0 units SC ACHS [facility] PRN Reason: Protocol Last Admin: 05/26/17 16:59 Dose: Not Given Metoprolol Tartrate (Lopressor) 25 mg PO Q6 [facility] Last Admin: 05/26/17 16:59 Dose: 25 mg Mirtazapine (Remeron) 7.5 mg PO HS [facility] Last Admin: 05/25/17 22:19 Dose: 7.5 mg Morphine Sulfate (Morphine) 2 mg IVP Q6 PRN PRN Reason: Pain, moderate (4-7) Ramipril (Altace) 10 mg PO DAILY [facility] Last Admin: 05/26/17 08:52 Dose: 10 mg Senna/Docusate Sodium (Senokot S 50 Mg-8.6 Mg) 2 tab PO [facility] Last Admin: 05/25/17 22:21 Dose: Not Given Tramadol HCl (Ultram) 100 mg PO Q12 PRN PRN Reason: Pain, severe (8-10) Last Admin: 05/25/17 22:23 Dose: 100 mg - Labs Labs: 05/21/17 05:10 05/24/17 05:15 PT 13.1 Seconds (9.8-13.1) 05/20/17 06:00 INR 1.2 (0.9-1.2) 05/20/17 06:00 APTT 34.8 Seconds (25.6-37.1) 05/20/17 06:00
[2017-05-26] MEDS: Insulin Detemir 100 Units/ml Inj SC SCH (08:54)
[2017-05-26] MEDS: Enoxaparin 40 mg Syringe SC SCH (08:56)
[2017-05-26] MEDS: Piperacillin/Tazobact 3.375 GM in Sodium Chloride 0.9% 100 ML IVPB SCH ×2 (08:59→21:28)
--- NOTE | 2017-05-26 11:09 | CP.PCM.PN ---
Subjective - Date & Time of Evaluation Date of Evaluation: 05/26/17 Time of Evaluation: 11:06 - Subjective Subjective: Pt seen and examined at the bedside. She was observed lying comfortable in bed. Denies pain in her left foot. Complains of mild SOB for the past few days that has not gotten any worse or better, unrelated to physical activity or position, alleviated when using nasal cannula, and associated with feelings of anxiety. She denies any chest pain, palpatations, fever, chills or calf pain. Objective - Vital Signs/Intake and Output Vital Signs (last 24 hours): Temp Pulse Resp BP Pulse Ox 98.0 F 70 18 146/80 96 05/26/17 08:00 05/26/17 09:00 05/26/17 08:00 05/26/17 09:00 05/26/17 08:00 - Medications Medications: Current Medications Aspirin (Aspirin Chewable) 81 mg PO DAILY [facility] Last Admin: 05/26/17 08:53 Dose: 81 mg Atorvastatin Calcium (Lipitor) 40 mg PO DAILY [facility] Last Admin: 05/26/17 08:55 Dose: 40 mg Clopidogrel Bisulfate (Plavix) 75 mg PO DAILY [facility] Last Admin: 05/26/17 08:58 Dose: 75 mg Dextrose (Dextrose 50% Inj) 0 ml IV STAT PRN; Protocol PRN Reason: Hyglycemia Protocol Dextrose (Glutose 15) 0 gm PO ONCE PRN; Protocol PRN Reason: Hypoglycemia Protocol Enoxaparin Sodium (Lovenox) 40 mg SC DAILY [facility] PRN Reason: Protocol Last Admin: 05/26/17 08:56 Dose: 40 mg Glucagon (Glucagen Diagnostic Kit) 0 mg IM STAT PRN; Protocol PRN Reason: Hypoglycemia Protocol Piperacillin Sod/Tazobactam (Sod 3.375 gm/ Sodium Chloride) 100 mls @ 100 mls/ hr IVPB Q12 [facility] Last Admin: 05/26/17 08:59 Dose: 100 mls/hr Insulin Detemir (Levemir) 20 units SC QPM [facility] Last Admin: 05/25/17 17:27 Dose: 20 unit Insulin Detemir (Levemir) 15 units SC QAM [facility] Last Admin: 05/26/17 08:54 Dose: 15 units Insulin Human Regular (Humulin R) 0 units SC ACHS [facility] PRN Reason: Protocol Last Admin: 05/26/17 06:51 Dose: Not Given Metoprolol Tartrate (Lopressor) 25 mg PO Q6 [facility] Last Admin: 05/26/17 09:00 Dose: 25 mg Mirtazapine (Remeron) 7.5 mg PO [facility] Last Admin: 05/25/17 22:19 Dose: 7.5 mg Morphine Sulfate (Morphine) 2 mg IVP Q6 PRN PRN Reason: Pain, moderate (4-7) Ramipril (Altace) 10 mg PO DAILY [facility] Last Admin: 05/26/17 08:52 Dose: 10 mg Senna/Docusate Sodium (Senokot S 50 Mg-8.6 Mg) 2 tab PO [facility] Last Admin: 05/25/17 22:21 Dose: Not Given Tramadol HCl (Ultram) 100 mg PO Q12 PRN PRN Reason: Pain, severe (8-10) Last Admin: 05/25/17 22:23 Dose: 100 mg - Labs Labs: 05/21/17 05:10 05/24/17 05:15 PT 13.1 Seconds (9.8-13.1) 05/20/17 06:00 INR 1.2 (0.9-1.2) 05/20/17 06:00 APTT 34.8 Seconds (25.6-37.1) 05/20/17 06:00 - Constitutional Appears: Well, No Acute Distress - Head Exam Head Exam: ATRAUMATIC, NORMOCEPHALIC - Eye Exam Eye Exam: absent: Conjunctival injection, EOMI - ENT Exam ENT Exam: Mucous Membranes Moist - Neck Exam Neck Exam: absent: Tenderness, Thyromegaly - Respiratory Exam Respiratory Exam: Clear to Ausculation Bilateral. absent: Accessory Muscle Use , Chest Wall Tenderness, Wheezes, Respiratory Distress - Cardiovascular Exam Cardiovascular Exam: REGULAR RHYTHM, +S1, +S2. absent: Murmur - Extremities Exam Extremities Exam: absent: Calf Tenderness, Pedal Edema - Neurological Exam Neurological Exam: Alert, Oriented x3. absent: Motor Sensory Deficit - Psychiatric Exam Psychiatric exam: Normal Affect Assessment and Plan (1) Osteomyelitis Status: Acute (2) PVD (peripheral vascular disease) Status: Acute - Assessment and Plan (Free Text) Assessment: 66 yo female with a PMHx of Severe PVD, DM2, HTN, HLD, IN , and CVA admitted for osteomylelitis of the left metatarsal and found to have severe arterial disease in both extremitites. Planning to have revascularization procedure in [place] tomorrow. Plan: 1) Osteomyelitis -Pt's foot pain is being adequately managed. Afebrile -Xray Foot: Study reveals what appears to represent some localized irregularity along the superomedial border of the head of first metatarsal. Also some irregularity of the overlying soft tissues and possibly small amount of subcutaneous air. Findings suggest osteomyelitis in this location. -As per podiatry, will likely need surgery after revasculariation -C/w Zosyn 3.375gm Q12, Day 8 -Tramadol for pain Q12. Morphine prn 2) Peripheral Vascular Disease -LE Doppler: Mild arterial disease is suggested at the proximal to mid leg from left groin to knee with potentially severe arterial disease in the runoff below the knee. Follow up MR or CT angiography is advised with contrast (see 2) peripheral arterial disease.) -CT angio showed severe disease: there is poor blood flow to the foot on the left, and no appreciable flow to the foot on the right lower extremity. Pt will likely need revascularization to improve flow. -Ir was consulted: Pt will go to [place] tomorrow for revascularization procedure by Dr. Lynn. pt will be started on /2 NS at 80 and be placed on a clear liquid diet. Lovenox will be held at midnight 3) Systolic Heart Failure Stable. Pt is having mild SOB but no other symptoms of acute CHF decompensation (denies Orthopnea, Physical Exam negative for LE swelling, JVD or Crackles) -Echo showed EF 20%. Moderate LV dilation, borderline concentric left ventricular hypertrophy, left ventricular systolic function severely impaired. Moderate mitral regurgitation and moderate tricuspid regurgitation. -Records obtained from [facility] - appears that there are no records indicative of past IN. 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 -Neurology consult -pt can be given antiplatelets and anticoagulants as it has been >4 months from her stroke as per neuro -Cardiology consulted- We spoke with Dr. Russo and the patient is cleared for revascularization from a cardiac stand point and can c/w Plavix, Aspirin and Lovonox; Also suggested that pt be fitted for life vest before D/C and evaluated for AICD in 3 months -Ramipril 10mg PO daily -Metroprolol 25mg PO q6 -Plavix restarted- 75mg PO daily -Asp 81mg PO daily -Monitor I/O's -Fluid restrictions -Heart healthy diet 4)Elevated BUN/Cr -Crea 1.5 today (improving) -Continute Monitoring BUN/Cr 5) Diabetes Mellitus Type 2 -Monitor glucose - accucheck -POCG has been in the 90's, will reduce Levemir to 5 at night tonight since patient will be on a clear liquid diet. Reassess in the morning -Insulin coverage scale -A1C 7.3 -Diabetic diet -Hypoglycemia protocol in place 6)Hypertension -Controlled -Metoprolol 25 mg Q6 -As per cardiology, SHABBIR was changed from enalapril to ramipril 10mg po daily -Monitor BP 7)Hyperlipidemia -Continue home meds: atorvastatin -Total cholesterol 88, LDL 41, HDL 28 8) Anxiety -Seen by psychiatrist -Continue remeron for anxiety 9)DVT prophylaxis -SCDs, as records obtained from [facility] show hx of recent hemorrhagic stroke in January 2017
--- NOTE | 2017-05-26 14:09 | CP.PCM.PN ---
Subjective - Date & Time of Evaluation Date of Evaluation: 05/26/17 Time of Evaluation: 08:00 - Subjective Subjective: Dr. Adan Ramos, at [facility] will be able to do the revascularization for the patient before noon tomorrow (05/27/17) at [facility]. Patient will need to be transferred to [place] today for revascularization tomorrow morning. If revascularization is successful, Dr. Reynoso plans on bringing patient to the OR next week for removal of infected bone: exosectomy of medial metatarsal head and removal of tibial seasmoid. Patient will also need 4-6 weeks of IV antibiotics. Objective - Vital Signs/Intake and Output Vital Signs (last 24 hours): Temp Pulse Resp BP Pulse Ox 97.9 F 64 18 135/74 96 05/26/17 12:00 05/26/17 12:00 05/26/17 12:00 05/26/17 12:00 05/26/17 12:00 - Medications Medications: Current Medications Aspirin (Aspirin Chewable) 81 mg PO DAILY [facility] Last Admin: 05/26/17 08:53 Dose: 81 mg Atorvastatin Calcium (Lipitor) 40 mg PO DAILY [facility] Last Admin: 05/26/17 08:55 Dose: 40 mg Clopidogrel Bisulfate (Plavix) 75 mg PO DAILY [facility] Last Admin: 05/26/17 08:58 Dose: 75 mg Dextrose (Dextrose 50% Inj) 0 ml IV STAT PRN; Protocol PRN Reason: Hyglycemia Protocol Dextrose (Glutose 15) 0 gm PO ONCE PRN; Protocol PRN Reason: Hypoglycemia Protocol Enoxaparin Sodium (Lovenox) 40 mg SC DAILY [facility] PRN Reason: Protocol Last Admin: 05/26/17 08:56 Dose: 40 mg Glucagon (Glucagen Diagnostic Kit) 0 mg IM STAT PRN; Protocol PRN Reason: Hypoglycemia Protocol Piperacillin Sod/Tazobactam (Sod 3.375 gm/ Sodium Chloride) 100 mls @ 100 mls/ hr IVPB Q12 [facility] Last Admin: 05/26/17 08:59 Dose: 100 mls/hr Insulin Detemir (Levemir) 20 units SC QPM [facility] Last Admin: 05/25/17 17:27 Dose: 20 unit Insulin Detemir (Levemir) 15 units SC QAM [facility] Last Admin: 05/26/17 08:54 Dose: 15 units Insulin Human Regular (Humulin R) 0 units SC ACHS [facility] PRN Reason: Protocol Last Admin: 05/26/17 12:53 Dose: Not Given Metoprolol Tartrate (Lopressor) 25 mg PO Q6 [facility] Last Admin: 05/26/17 09:00 Dose: 25 mg Mirtazapine (Remeron) 7.5 mg PO HS [facility] Last Admin: 05/25/17 22:19 Dose: 7.5 mg Morphine Sulfate (Morphine) 2 mg IVP Q6 PRN PRN Reason: Pain, moderate (4-7) Ramipril (Altace) 10 mg PO DAILY [facility] Last Admin: 05/26/17 08:52 Dose: 10 mg Senna/Docusate Sodium (Senokot S 50 Mg-8.6 Mg) 2 tab PO [facility] Last Admin: 05/25/17 22:21 Dose: Not Given Tramadol HCl (Ultram) 100 mg PO Q12 PRN PRN Reason: Pain, severe (8-10) Last Admin: 05/25/17 22:23 Dose: 100 mg - Labs Labs: 05/21/17 05:10 05/24/17 05:15 PT 13.1 Seconds (9.8-13.1) 05/20/17 06:00 INR 1.2 (0.9-1.2) 05/20/17 06:00 APTT 34.8 Seconds (25.6-37.1) 05/20/17 06:00 - Constitutional Appears: Non-toxic, Chronically Ill - Head Exam Head Exam: NORMOCEPHALIC - Eye Exam Eye Exam: PERRL - ENT Exam ENT Exam: Mucous Membranes Dry - Neck Exam Neck Exam: absent: Lymphadenopathy - Respiratory Exam Respiratory Exam: Decreased Breath Sounds - Cardiovascular Exam Cardiovascular Exam: REGULAR RHYTHM Assessment and Plan (1) Osteomyelitis Status: Acute (2) Osteomyelitis Status: Acute (3) Diabetic foot ulcer Status: Acute
[2017-05-26 18:05] LABS: CALCIUM 8.6 mg/dL (8.4-10.2); POTASSIUM 4.1 MMOL/L (3.6-5.0)
[2017-05-26] MEDS ORDERED: Acetylcysteine 20% Inhal Soln (4ml) IH ONE (19:05)
[2017-05-26] MEDS: Docusate-Senna 50 mg-8.6 mg Tab PO SCH (21:30)
[2017-05-27] MEDS ORDERED: Sodium Chloride 0.45% 1,000 ML IV SCH (02:00)
[2017-05-27] MEDS ORDERED: Acetylcysteine 20% Inhal Soln (4ml) PO ONE (06:00)
[2017-05-27] MEDS ORDERED: Acetylcysteine 20% Inhal Soln (4ml) IH ONE (06:00)
[2017-05-27] MEDS: Insulin Regular 100 units/ml SC SCH ×4 (06:33→21:03)
[2017-05-27 07:15] VITALS: BMI 23.8
[2017-05-27] MEDS: Piperacillin/Tazobact 3.375 GM in Sodium Chloride 0.9% 100 ML IVPB SCH ×2 (08:05→21:06)
--- NOTE | 2017-05-27 15:44 | CP.PCM.PN ---
Subjective - Date & Time of Evaluation Date of Evaluation: 05/27/17 Time of Evaluation: 15:43 - Subjective Subjective: Patient transferred to [place] for revascularization procedure, will evaluate upon return. Objective - Vital Signs/Intake and Output Vital Signs (last 24 hours): Temp Pulse Resp BP Pulse Ox 97.3 F L 62 20 153/91 H 98 05/27/17 05:00 05/27/17 05:00 05/27/17 05:00 05/27/17 05:00 05/27/17 05:00 - Medications Medications: Current Medications Aspirin (Aspirin Chewable) 81 mg PO DAILY [facility] Last Admin: 05/27/17 08:02 Dose: Not Given Atorvastatin Calcium (Lipitor) 40 mg PO DAILY [facility] Last Admin: 05/27/17 08:03 Dose: Not Given Clopidogrel Bisulfate (Plavix) 75 mg PO DAILY [facility] Last Admin: 05/27/17 08:05 Dose: Not Given Dextrose (Dextrose 50% Inj) 0 ml IV STAT PRN; Protocol PRN Reason: Hyglycemia Protocol Dextrose (Glutose 15) 0 gm PO ONCE PRN; Protocol PRN Reason: Hypoglycemia Protocol Enoxaparin Sodium (Lovenox) 40 mg SC DAILY [facility] PRN Reason: Protocol Last Admin: 05/26/17 08:56 Dose: 40 mg Glucagon (Glucagen Diagnostic Kit) 0 mg IM STAT PRN; Protocol PRN Reason: Hypoglycemia Protocol Piperacillin Sod/Tazobactam (Sod 3.375 gm/ Sodium Chloride) 100 mls @ 100 mls/ hr IVPB Q12 [facility] Last Admin: 05/27/17 08:05 Dose: Not Given Sodium Chloride (Sodium Chloride 0.45%) 1,000 mls @ 50 mls/hr IV .Q20H [facility] Stop: 05/27/17 18:55 Last Admin: 05/27/17 02:00 Dose: 50 mls/hr Insulin Detemir (Levemir) 5 units SC QPM [facility] Insulin Human Regular (Humulin R) 0 units SC ACHS [facility] PRN Reason: Protocol Last Admin: 05/27/17 06:33 Dose: Not Given Metoprolol Tartrate (Lopressor) 25 mg PO Q6 [facility] Last Admin: 05/27/17 04:04 Dose: 25 mg Mirtazapine (Remeron) 7.5 mg PO HS [facility] Last Admin: 05/26/17 21:29 Dose: 7.5 mg Ramipril (Altace) 10 mg PO DAILY [facility] Last Admin: 05/27/17 08:00 Dose: Not Given Senna/Docusate Sodium (Senokot S 50 Mg-8.6 Mg) 2 tab PO HS [facility] Last Admin: 05/26/17 21:30 Dose: Not Given - Labs Labs: 05/21/17 05:10 05/26/17 17:15 PT 13.1 Seconds (9.8-13.1) 05/20/17 06:00 INR 1.2 (0.9-1.2) 05/20/17 06:00 APTT 34.8 Seconds (25.6-37.1) 05/20/17 06:00 Assessment and Plan (1) Osteomyelitis Status: Acute (2) PVD (peripheral vascular disease) Status: Acute
[2017-05-27] MEDS: Insulin Detemir 100 Units/ml Inj SC SCH (21:05)
[2017-05-27] MEDS: Docusate-Senna 50 mg-8.6 mg Tab PO SCH (21:06)
[2017-05-28] MEDS: Insulin Regular 100 units/ml SC SCH ×4 (09:19→21:40)
[2017-05-28] MEDS: Piperacillin/Tazobact 3.375 GM in Sodium Chloride 0.9% 100 ML IVPB SCH ×2 (09:20→21:44)
[2017-05-28 15:50] LABS: HEMATOCRIT 26.5 % (34.0-47.0); MEAN CELL VOLUME 84.4 fl (81.0-99.0); MEAN CORPUSCULAR HEMOGLOBIN 26.8 pg (27.0-31.0); MEAN CORPUSCULAR HGB CONC 31.7 g/dL (33.0-37.0); WHITE BLOOD COUNT 14.9 K/uL (4.8-10.8)
[2017-05-28 16:03] LABS: BILIRUBIN,TOTAL 0.6 mg/dl (0.2-1.3); CALCIUM 8.5 mg/dL (8.4-10.2); POTASSIUM 4.6 MMOL/L (3.6-5.0); TOTAL PROTEIN 5.6 G/DL (6.3-8.2)
--- NOTE | 2017-05-28 16:43 | RAD ---
HISTORY: Crackles COMPARISON: Comparison is made to 05/20/2017 FINDINGS: LUNGS: Interval appearance of haziness and opacities at the mid and lower portion of the lungs likely due to pulmonary congestion. The possibility of fluid overload should be considered. PLEURA: Blunting of both costophrenic angles larger on the left suggestive of small bilateral pleural effusion CARDIOVASCULAR: The cardiac silhouette is not enlarged in this portable exam . OSSEOUS STRUCTURES: No significant abnormalities. VISUALIZED UPPER ABDOMEN: Normal. OTHER FINDINGS: None. IMPRESSION: Interval appearance of haziness and opacities at the lower lungs could be due to pulmonary vascular congestion/fluid overload.
[2017-05-28] MEDS: Insulin Detemir 100 Units/ml Inj SC SCH (17:51)
[2017-05-28] MEDS: Docusate-Senna 50 mg-8.6 mg Tab PO SCH (21:43)
[2017-05-29] MEDS: Insulin Regular 100 units/ml SC SCH ×4 (07:37→21:41)
[2017-05-29 07:58] LABS: HEMATOCRIT 24.4 % (34.0-47.0); MEAN CELL VOLUME 82.2 fl (81.0-99.0); MEAN CORPUSCULAR HEMOGLOBIN 27.3 pg (27.0-31.0); MEAN CORPUSCULAR HGB CONC 33.2 g/dL (33.0-37.0); RED CELL DISTRIBUTION WIDTH 17.5 % (11.5-14.5)
[2017-05-29 08:15] LABS: ALB/GLOB RATIO 0.9 (1.0-2.1); BILIRUBIN,TOTAL 0.5 mg/dl (0.2-1.3); CALCIUM 8.2 mg/dL (8.4-10.2); TOTAL PROTEIN 5.3 G/DL (6.3-8.2)
[2017-05-29] MEDS: Piperacillin/Tazobact 3.375 GM in Sodium Chloride 0.9% 100 ML IVPB SCH (09:41)
--- NOTE | 2017-05-29 11:49 | CP.PCM.PN ---
Subjective - Date & Time of Evaluation Date of Evaluation: 05/29/17 Time of Evaluation: 09:20 - Subjective Subjective: Pt. seen and examined at bedside s/p POD #2 from left lower revasculization pending left 1st Osteomyelitis surgical intervention. Pt. with no complaints today. On ROS, pt. denies any headache, chest pain, shortness of breath, abdominal pain, or limb pain. Pt. also reports no fever, chills, cough, or dysuria. Objective - Vital Signs/Intake and Output Vital Signs (last 24 hours): Temp Pulse Resp BP Pulse Ox 98.1 F 74 20 128/75 95 05/29/17 08:16 05/29/17 09:40 05/29/17 08:16 05/29/17 10:11 05/29/17 08:16 - Medications Medications: Current Medications Acetaminophen (Tylenol 325mg Tab) 650 mg PO Q6 PRN PRN Reason: Pain, moderate (4-7) Aspirin (Aspirin Chewable) 81 mg PO DAILY [facility] Last Admin: 05/29/17 09:39 Dose: 81 mg Atorvastatin Calcium (Lipitor) 40 mg PO DAILY [facility] Last Admin: 05/29/17 09:39 Dose: 40 mg Clopidogrel Bisulfate (Plavix) 75 mg PO DAILY [facility] Last Admin: 05/29/17 09:40 Dose: 75 mg Dextrose (Dextrose 50% Inj) 0 ml IV STAT PRN; Protocol PRN Reason: Hyglycemia Protocol Dextrose (Glutose 15) 0 gm PO ONCE PRN; Protocol PRN Reason: Hypoglycemia Protocol Enoxaparin Sodium (Lovenox) 40 mg SC DAILY [facility] PRN Reason: Protocol Last Admin: 05/26/17 08:56 Dose: 40 mg Glucagon (Glucagen Diagnostic Kit) 0 mg IM STAT PRN; Protocol PRN Reason: Hypoglycemia Protocol Piperacillin Sod/Tazobactam (Sod 3.375 gm/ Sodium Chloride) 100 mls @ 100 mls/ hr IVPB Q12 [facility] Last Admin: 05/29/17 09:41 Dose: 100 mls/hr Insulin Detemir (Levemir) 5 units SC QPM [facility] Last Admin: 05/28/17 17:51 Dose: 5 unit Insulin Human Regular (Humulin R) 0 units SC ACHS [facility] PRN Reason: Protocol Last Admin: 05/29/17 07:37 Dose: 6 unit Metoprolol Tartrate (Lopressor) 25 mg PO Q6 [facility] Last Admin: 05/29/17 09:40 Dose: 25 mg Mirtazapine (Remeron) 7.5 mg PO [facility] Last Admin: 05/28/17 21:42 Dose: 7.5 mg Ramipril (Altace) 10 mg PO DAILY [facility] Last Admin: 05/29/17 09:39 Dose: 10 mg Senna/Docusate Sodium (Senokot S 50 Mg-8.6 Mg) 2 tab PO [facility] Last Admin: 05/28/17 21:43 Dose: 2 tab - Labs Labs: 05/29/17 06:00 05/29/17 06:00 PT 13.1 Seconds (9.8-13.1) 05/20/17 06:00 INR 1.2 (0.9-1.2) 05/20/17 06:00 APTT 34.8 Seconds (25.6-37.1) 05/20/17 06:00 - Constitutional Appears: Non-toxic, No Acute Distress - Respiratory Exam Respiratory Exam: Clear to Ausculation Bilateral, NORMAL BREATHING PATTERN Additional comments: + Positive Bilateral crackles - Cardiovascular Exam Cardiovascular Exam: RRR, +S1, +S2 - GI/Abdominal Exam GI & Abdominal Exam: Soft. absent: Tenderness - Extremities Exam Additional comments: Pedal pulses palpable +2 bilaterally left foot dressing clean dry intact Feet warm to touch - Psychiatric Exam Psychiatric exam: Normal Affect, Normal Mood Assessment and Plan - Assessment and Plan (Free Text) Assessment: 66 y.o. female with hx of Peripheral vascular disease admitted for osteomyelitis POD #2 left lower leg revascularization 1) Osteomyelitis - Reocmmnedations as per Podiatry -Xray Foot: Study reveals what appears to represent some localized irregularity along the superomedial border of the head of first metatarsal. Also some irregularity of the overlying soft tissues and possibly small amount of subcutaneous air. Findings suggest osteomyelitis in this location. -As per podiatry, will likely need surgery after revasculariation -C/w Zosyn 3.375gm Q12, Day 8 -Tramadol for pain Q12. Morphine prn 2) Peripheral Vascular Disease- POD #2 Left lower leg revascularization - Monitor pedal pulses - PT/OT 3) Systolic Heart Failure- EF 20% -Cardiology consulted- DR. Russo input appreciated -Ramipril 10mg PO daily -Metroprolol 25mg PO q6 -Plavix restarted- 75mg PO daily -Asp 81mg PO daily -Monitor I/O's -Fluid restrictions -Heart healthy diet 4) Acute kidney injury most likely to contrast -Creatinine 2.5 today -Nephrology Consult Dr. Schultz- input appreciated 5) Diabetes Mellitus Type 2 -Levemir 10 units qpm -Insulin coverage scale -A1C 7.3 -Diabetic diet -Hypoglycemia protocol in place 6)Hypertension -Controlled -Metoprolol 25 mg Q6 -Ramipril 10mg po daily 7)Hyperlipidemia -Continue home meds: atorvastatin 8)DVT prophylaxis -Lovenox 40mg sc
--- NOTE | 2017-05-29 14:24 | CP.PCM.PN ---
Subjective - Date & Time of Evaluation Date of Evaluation: 05/29/17 Time of Evaluation: 14:21 - Subjective Subjective: Patient is a 66 year old female seen at bedside with left medial hallux ulceration 2 days s/p revascularization of left leg at [facility]. Patient states that procedure went well and that she is a little sore but states that the pain in her foot is greatly decreased. Patient denies any further pedal complaints at this time. Patient denies N/V/F/C/CP/SOB Objective - Vital Signs/Intake and Output Vital Signs (last 24 hours): Temp Pulse Resp BP Pulse Ox 97.9 F 70 20 132/78 100 05/29/17 12:06 05/29/17 12:06 05/29/17 12:06 05/29/17 12:06 05/29/17 12:06 - Medications Medications: Current Medications Acetaminophen (Tylenol 325mg Tab) 650 mg PO Q6 PRN PRN Reason: Pain, moderate (4-7) Aspirin (Aspirin Chewable) 81 mg PO DAILY [facility] Last Admin: 05/29/17 09:39 Dose: 81 mg Atorvastatin Calcium (Lipitor) 40 mg PO DAILY [facility] Last Admin: 05/29/17 09:39 Dose: 40 mg Clopidogrel Bisulfate (Plavix) 75 mg PO DAILY [facility] Last Admin: 05/29/17 09:40 Dose: 75 mg Dextrose (Dextrose 50% Inj) 0 ml IV STAT PRN; Protocol PRN Reason: Hyglycemia Protocol Dextrose (Glutose 15) 0 gm PO ONCE PRN; Protocol PRN Reason: Hypoglycemia Protocol Enoxaparin Sodium (Lovenox) 40 mg SC DAILY [facility] PRN Reason: Protocol Last Admin: 05/26/17 08:56 Dose: 40 mg Glucagon (Glucagen Diagnostic Kit) 0 mg IM STAT PRN; Protocol PRN Reason: Hypoglycemia Protocol Piperacillin Sod/Tazobactam (Sod 3.375 gm/ Sodium Chloride) 100 mls @ 100 mls/ hr IVPB Q12 [facility] Last Admin: 05/29/17 09:41 Dose: 100 mls/hr Insulin Detemir (Levemir) 5 units SC QPM [facility] Last Admin: 05/28/17 17:51 Dose: 5 unit Insulin Human Regular (Humulin R) 0 units SC ACHS [facility] PRN Reason: Protocol Last Admin: 05/29/17 12:50 Dose: 3 unit Metoprolol Tartrate (Lopressor) 25 mg PO Q6 [facility] Last Admin: 05/29/17 09:40 Dose: 25 mg Mirtazapine (Remeron) 7.5 mg PO HS [facility] Last Admin: 05/28/17 21:42 Dose: 7.5 mg Ramipril (Altace) 10 mg PO DAILY [facility] Last Admin: 05/29/17 09:39 Dose: 10 mg Senna/Docusate Sodium (Senokot S 50 Mg-8.6 Mg) 2 tab PO HS [facility] Last Admin: 05/28/17 21:43 Dose: 2 tab - Labs Labs: 05/29/17 06:00 05/29/17 06:00 PT 13.1 Seconds (9.8-13.1) 05/20/17 06:00 INR 1.2 (0.9-1.2) 05/20/17 06:00 APTT 34.8 Seconds (25.6-37.1) 05/20/17 06:00 - Constitutional Appears: Well, Non-toxic, No Acute Distress - Extremities Exam Additional comments: LE focused exam Vasc: DP/PT pulses palpable 1/4 b/l. CFT< 3 seconds to digits 1-5 b/l. Temperature gradient warm to warm from proximal to distal. No pedal edema noted b/l Neuro: Epicritic and protective sensation grossly intact b/l Derm: Ulceration measuring 1.5 cm x 1.5 cm x 2 cm with dry necrotic base and hyperkeartotic rim noted. No drainage, purulence, or malodor noted. No tunneling. Undermining is noted to inferior margin. Ortho: Very mild tenderness to palpation medial 1st met head - Neurological Exam Neurological Exam: Alert, Awake, Normal Gait - Psychiatric Exam Psychiatric exam: Normal Affect, Normal Mood Assessment and Plan - Assessment and Plan (Free Text) Assessment: 66 year old F PMHx DM2, HTN, HLD, DC, stroke with left foot 1st metatarsal ulceration and 1st metatarsal head and tibial sesamoid osteomyelitis secondary to DM Plan: Patient seen and evaluated at bedside Charts, labs and vitals reviewed Plan discussed with Dr. Reynoso Patient will be brought to OR next week for bony excision at hallux and tibial sesamoid Ulcer dressed with xeroform, 4x4, kirlix Continue abx per ID Continue pain management per medicine Podiatry will continue to follow
--- NOTE | 2017-05-29 15:52 | CP.PCM.CON ---
History of Present Illness - History of Present Illness History of Present Illness: 66 yo F w/ pmh of htn, dm, s/p ME and CVA, presented with L foot 1st metatarsal infected ulceration, imaging found to be consistent with osteomyelitis, CT angio showing extensive PAD; patient subsequently underwnent LLE angiogram w/ angioplasty and stenting 2 days ago; nephrology service now being consulted for acute kidney injury; Patient is slow to recall recent events (didn't initially recall angioplasty procedure); currently reporting bilateral foot pain; was short of breath overnight and was given IV lasix with improvement in breathing but says she hasn 't been urinating much; denies any dysuria; Patient denies any recent nausea, vomiting or diarrhea; tolerating diet; Review of Systems - Constitutional Constitutional: Chills - EENT Eyes: Blurred Vision Nose/Mouth/Throat: absent: Nasal Discharge, Dysphagia, Sore Throat - Cardiovascular Cardiovascular: absent: Chest Pain, Lightheadedness, Palpitations - Respiratory Respiratory: Dyspnea. absent: Cough - Gastrointestinal Gastrointestinal: absent: Diarrhea, Nausea, Vomiting - Genitourinary Genitourinary: As Per HPI - Musculoskeletal Additional comments: Leg pain; - Integumentary Additional comments: L foot ulcer; - Neurological Additional comments: numbness of feet; - Psychiatric Psychiatric: Depression - Hematologic/Lymphatic Hematologic: absent: Easy Bruising Past Patient History - Infectious Disease Hx of Infectious Diseases: None - Tetanus Immunizations Tetanus Immunization: Unknown - Past Medical History & Family History Past Medical History?: Yes - Past Social History Smoking Status: Former Smoker Chewing Tobacco Use: No Cigar Use: No Alcohol: None Drugs: Denies Home Situation {Lives}: With Family Domestic Violence: Negative - CARDIAC Hx Cardiac Disorders: Yes Hx Hypercholesterolemia: Yes Hx Hypertension: Yes - PULMONARY Hx Respiratory Disorders: No - NEUROLOGICAL Hx Neurological Disorder: Yes HX Cerebrovascular Accident: Yes (left sided weakness) - HEENT Hx HEENT Problems: No - RENAL Hx Chronic Kidney Disease: No - ENDOCRINE/METABOLIC Hx Endocrine Disorders: Yes Hx Diabetes Mellitus Type 2: Yes - HEMATOLOGICAL/ONCOLOGICAL Hx Blood Disorders: No - INTEGUMENTARY Hx Dermatological Problems: No - MUSCULOSKELETAL/RHEUMATOLOGICAL Hx Musculoskeletal Disorders: Yes Hx Falls: Yes (fell 6 months ago) Other/Comment: hx of chronic back pain - GASTROINTESTINAL Hx Gastrointestinal Disorders: No - GENITOURINARY/GYNECOLOGICAL Hx Genitourinary Disorders: No - PSYCHIATRIC Hx Psychophysiologic Disorder: No Hx Substance Use: No - SURGICAL HISTORY Hx Surgeries: Yes Hx Section: Yes - ANESTHESIA Hx Anesthesia: Yes Hx Anesthesia Reactions: No Meds Allergies/Adverse Reactions: Allergies Allergy/AdvReac Type Severity Reaction Status Date / Time No Known Allergies Allergy Verified 05/14/16 14:21 - Medications Medications: Current Medications Acetaminophen (Tylenol 325mg Tab) 650 mg PO Q6 PRN PRN Reason: Pain, moderate (4-7) Aspirin (Aspirin Chewable) 81 mg PO DAILY [facility] Last Admin: 05/29/17 09:39 Dose: 81 mg Atorvastatin Calcium (Lipitor) 40 mg PO DAILY [facility] Last Admin: 05/29/17 09:39 Dose: 40 mg Clopidogrel Bisulfate (Plavix) 75 mg PO DAILY [facility] Last Admin: 05/29/17 09:40 Dose: 75 mg Dextrose (Dextrose 50% Inj) 0 ml IV STAT PRN; Protocol PRN Reason: Hyglycemia Protocol Dextrose (Glutose 15) 0 gm PO ONCE PRN; Protocol PRN Reason: Hypoglycemia Protocol Enoxaparin Sodium (Lovenox) 40 mg SC DAILY [facility] PRN Reason: Protocol Last Admin: 05/26/17 08:56 Dose: 40 mg Glucagon (Glucagen Diagnostic Kit) 0 mg IM STAT PRN; Protocol PRN Reason: Hypoglycemia Protocol Piperacillin Sod/Tazobactam (Sod 3.375 gm/ Sodium Chloride) 100 mls @ 100 mls/ hr IVPB Q12 [facility] Last Admin: 05/29/17 09:41 Dose: 100 mls/hr Insulin Detemir (Levemir) 10 units SC QPM [facility] Insulin Human Regular (Humulin R) 0 units SC ACHS [facility] PRN Reason: Protocol Last Admin: 05/29/17 12:50 Dose: 3 unit Metoprolol Tartrate (Lopressor) 25 mg PO Q6 [facility] Last Admin: 05/29/17 09:40 Dose: 25 mg Mirtazapine (Remeron) 7.5 mg PO HS [facility] Last Admin: 05/28/17 21:42 Dose: 7.5 mg Ramipril (Altace) 10 mg PO DAILY [facility] Last Admin: 05/29/17 09:39 Dose: 10 mg Senna/Docusate Sodium (Senokot S 50 Mg-8.6 Mg) 2 tab PO HS [facility] Last Admin: 05/28/17 21:43 Dose: 2 tab Physical Exam - Constitutional Appears: Non-toxic, No Acute Distress - Head Exam Head Exam: NORMAL INSPECTION - Eye Exam Eye Exam: Normal appearance. absent: Scleral icterus - ENT Exam ENT Exam: Mucous Membranes Moist - Neck Exam Neck exam: Negative for: Lymphadenopathy - Respiratory Exam Respiratory Exam: absent: Rhonchi, Wheezes Additional comments: Bilateral basal insp rales present; - Cardiovascular Exam Cardiovascular Exam: REGULAR RHYTHM, +S1, +S2. absent: Gallop Additional comments: L carotid bruit present; no abd bruits; - GI/Abdominal Exam GI & Abdominal Exam: Soft. absent: Distended, Tenderness - Exam Exam: absent: Bladder Distension - Extremities Exam Additional comments: Mild lower leg edema b/l; - Neurological Exam Neurological exam: Alert Additional comments: slow to recall; - Psychiatric Exam Psychiatric exam: Normal Affect - Skin Skin Exam: Normal Color, Warm Results - Vital Signs Recent Vital Signs: Last Vital Signs Temp 97.9 F 05/29/17 12:06 Pulse 70 05/29/17 12:06 Resp 20 05/29/17 12:06 BP 132/78 05/29/17 12:06 Pulse Ox 100 05/29/17 12:06 - Labs Result Diagrams: 05/29/17 06:00 05/29/17 06:00 Labs: Laboratory Results - last 24 hr 05/28/17 05/28/17 05/28/17 15:45 15:45 16:34 WBC 14.9 H RBC 3.14 L Hgb 8.4 L D Hct 26.5 L MCV 84.4 MCH 26.8 L MCHC 31.7 L RDW 17.0 H Plt Count 149 Sodium 135 Potassium 4.6 Chloride 104 Carbon Dioxide 20 L Anion Gap 16 BUN 27 H Creatinine 1.9 H Est GFR ( Amer) 32 Est GFR (Non-Af Amer) 27 POC Glucose (mg/dL) 259 H Random Glucose 236 H Calcium 8.5 Total Bilirubin 0.6 AST 51 H D ALT 100 H D Alkaline Phosphatase 119 Total Protein 5.6 L Albumin 2.8 L Globulin 2.8 Albumin/Globulin Ratio 1.0 05/28/17 05/29/17 05/29/17 21:37 05:31 06:00 WBC 12.0 H RBC 2.97 L Hgb 8.1 L Hct 24.4 L MCV 82.2 D MCH 27.3 MCHC 33.2 RDW 17.5 H Plt Count 151 Sodium Potassium Chloride Carbon Dioxide Anion Gap BUN Creatinine Est GFR ( Amer) Est GFR (Non-Af Amer) POC Glucose (mg/dL) 290 H 331 H Random Glucose Calcium Total Bilirubin AST ALT Alkaline Phosphatase Total Protein Albumin Globulin Albumin/Globulin Ratio 05/29/17 05/29/17 06:00 10:59 WBC RBC Hgb Hct MCV MCH MCHC RDW Plt Count Sodium 132 Potassium 4.0 Chloride 104 Carbon Dioxide 21 L Anion Gap 11 BUN 32 H Creatinine 2.5 H Est GFR ( Amer) 23 Est GFR (Non-Af Amer) 19 POC Glucose (mg/dL) 246 H Random Glucose 253 H Calcium 8.2 L Total Bilirubin 0.5 AST 36 D ALT 74 H D Alkaline Phosphatase 103 Total Protein 5.3 L Albumin 2.5 L Globulin 2.8 Albumin/Globulin Ratio 0.9 L - Imaging and Cardiology Chest x-ray Status: Image reviewed by me Additional comment: bilateral basal haziness; Assessment & Plan (1) Acute renal failure Assessment and Plan: NAI, likely ATN due to contrast nephropathy in the setting of DM and renovascular disease; unable to quantify urine output but decreased per history ; signs/symptoms of volume excess on exam/history in the setting of severe systolic CHF; relatively stable electrolyte status; No indication for renal replacement therapy at this time; however, if oliguric and FIO2 requirement increases significantly, may need to reconsider; will re- assess regularly; -renal US to r/o obstruction/hydronephrosis -continue lasix 40 mg IV q12h, may need increased dosing if doesn't respond ( goal is to avoid further volume overload, will not change course of ATN) -holding SHABBIR inhibitor -avoid further nephrotoxic agents (IV dye) Status: Acute (2) Cardiomyopathy, dilated Assessment and Plan: Decompensated systolic CHF; on B-blockers/SHABBIR inhibitor for cardiac optimization ; in the setting of acute renal failure, need to hold SHABBIR inhibitor; continue diuresis as mentioned above; Status: Acute (3) Osteomyelitis Assessment and Plan: On zosyn, need to re-dose to 2.25 g q8h for CrCl < 20 ml/min; if starting vanco , need to check random level to avoid nephrotoxicity; Status: Acute (4) PVD (peripheral vascular disease) Assessment and Plan: Severe PAD with evidence of bilateral moderate renal artery stenosis on CT angio ; recommend to keep on high potency statin over group home (ie. either atorvastatin or rosuvastatin); Status: Acute (5) HTN (hypertension) Assessment and Plan: Currently normotensive; on metoprolol 25 mg q6h; lasix as mentioned above; Status: Chronic (6) CKD (chronic kidney disease) Assessment and Plan: Evidence of CKD with albuminuria on UA as well as renovascular disease; once renal function stabilizes, need to quantify degree of proteinuria; will send limited workup to look for causes of proteinuric CKD other than DM; -check C3 and C4 Status: Chronic
[2017-05-29 16:56] LABS: RBC URINE 12 /hpf (0-3); URINE BILIRUBIN NEGATIVE (NEGATIVE); URINE BLOOD SMALL (NEGATIVE); URINE COLOR STRAW (YELLOW); URINE GLUCOSE (UA) 50 mg/dL (Normal); URINE KETONE NEGATIVE (NEGATIVE); URINE LEUKOCYTE ESTERASE SMALL Leu/uL (Negative); URINE PROTEIN 30 mg/dL (NEGATIVE); URINE UROBILINOGEN 0.2-1.0 mg/dL (0.2-1.0); WBC URINE 5 /hpf (0-5)
[2017-05-29] MEDS: Insulin Detemir 100 Units/ml Inj SC SCH (17:31)
[2017-05-29] MEDS: Docusate-Senna 50 mg-8.6 mg Tab PO SCH (21:40)
[2017-05-30] MEDS: Insulin Regular 100 units/ml SC SCH ×4 (06:40→22:13)
--- NOTE | 2017-05-30 07:46 | US ---
PROCEDURE: Ultrasound of the Kidneys HISTORY: acute renal failure COMPARISON: None available. TECHNIQUE: Sonogram of the kidneys. FINDINGS: RIGHT KIDNEY: Measures: 11.5 cm. Mild increased cortical echogenicity. No stone, solid mass lesion or hydronephrosis visualized. LEFT KIDNEY: Measures: 9.9 cm. Mild increased cortical echogenicity. No stone, solid mass lesion or hydronephrosis visualized. OTHER FINDINGS: None. IMPRESSION: Mild increased cortical echogenicity bilaterally; correlate clinically for medical renal disease.
[2017-05-30 07:52] LABS: ALB/GLOB RATIO 0.9 (1.0-2.1); BILIRUBIN,TOTAL 0.4 mg/dl (0.2-1.3); CALCIUM 8.6 mg/dL (8.4-10.2); POTASSIUM 4.1 MMOL/L (3.6-5.0); TOTAL PROTEIN 5.7 G/DL (6.3-8.2)
[2017-05-30 07:53] LABS: HEMATOCRIT 24.1 % (34.0-47.0); MEAN CELL VOLUME 84.6 fl (81.0-99.0); MEAN CORPUSCULAR HEMOGLOBIN 27.4 pg (27.0-31.0); MEAN CORPUSCULAR HGB CONC 32.5 g/dL (33.0-37.0); WHITE BLOOD COUNT 10.7 K/uL (4.8-10.8)
[2017-05-30] MEDS ORDERED: Insulin Detemir 100 Units/ml Inj SC SCH (09:00)
[2017-05-30] MEDS: Enoxaparin 40 mg Syringe SC SCH (09:23)
--- NOTE | 2017-05-30 09:49 | CP.PCM.PN ---
Subjective - Date & Time of Evaluation Date of Evaluation: 05/30/17 Time of Evaluation: 09:42 - Subjective Subjective: No Acute overnight events. Patient seen and examined at bedside. Denies any left foot pain and discomfort but states that her right foot is painful to touch. States that she has mild SOB that is improving and has been urinating frequently but at small amounts. Denies CP, palpatations, LE swelling, chills, dysuria or cough Objective - Vital Signs/Intake and Output Vital Signs (last 24 hours): Temp Pulse Resp BP Pulse Ox 97.7 F 69 20 132/79 99 05/30/17 08:17 05/30/17 09:22 05/30/17 08:17 05/30/17 09:22 05/30/17 08:17 - Medications Medications: Current Medications Acetaminophen (Tylenol 325mg Tab) 650 mg PO Q6 PRN PRN Reason: Pain, moderate (4-7) Last Admin: 05/30/17 00:12 Dose: 650 mg Aspirin (Aspirin Chewable) 81 mg PO DAILY [facility] Last Admin: 05/30/17 09:18 Dose: 81 mg Atorvastatin Calcium (Lipitor) 40 mg PO DAILY [facility] Last Admin: 05/30/17 09:22 Dose: 40 mg Clopidogrel Bisulfate (Plavix) 75 mg PO DAILY [facility] Last Admin: 05/30/17 09:24 Dose: 75 mg Dextrose (Dextrose 50% Inj) 0 ml IV STAT PRN; Protocol PRN Reason: Hyglycemia Protocol Dextrose (Glutose 15) 0 gm PO ONCE PRN; Protocol PRN Reason: Hypoglycemia Protocol Enoxaparin Sodium (Lovenox) 40 mg SC DAILY [facility] PRN Reason: Protocol Last Admin: 05/30/17 09:23 Dose: 40 mg Furosemide (Lasix) 40 mg IVP BID [facility] Last Admin: 05/30/17 09:19 Dose: 40 mg Glucagon (Glucagen Diagnostic Kit) 0 mg IM STAT PRN; Protocol PRN Reason: Hypoglycemia Protocol Piperacillin Sod/Tazobactam (Sod 2.25 gm/ Sodium Chloride) 100 mls @ 100 mls/ hr IVPB Q8H [facility] Last Admin: 05/30/17 09:25 Dose: 100 mls/hr Insulin Detemir (Levemir) 10 units SC QPM [facility] Last Admin: 05/29/17 17:31 Dose: 10 unit Insulin Detemir (Levemir) 15 units SC DAILY [facility] Last Admin: 05/30/17 09:21 Dose: 15 units Insulin Human Regular (Humulin R) 0 units SC ACHS [facility] PRN Reason: Protocol Last Admin: 05/30/17 06:40 Dose: 4 unit Metoprolol Tartrate (Lopressor) 25 mg PO Q6 [facility] Last Admin: 05/30/17 09:22 Dose: 25 mg Mirtazapine (Remeron) 7.5 mg PO HS [facility] Last Admin: 05/29/17 21:40 Dose: 7.5 mg Ramipril (Altace) 10 mg PO DAILY [facility] Last Admin: 05/29/17 09:39 Dose: 10 mg Senna/Docusate Sodium (Senokot S 50 Mg-8.6 Mg) 2 tab PO HS [facility] Last Admin: 05/29/17 21:40 Dose: 2 tab - Labs Labs: 05/30/17 05:30 05/30/17 05:30 PT 13.1 Seconds (9.8-13.1) 05/20/17 06:00 INR 1.2 (0.9-1.2) 05/20/17 06:00 APTT 34.8 Seconds (25.6-37.1) 05/20/17 06:00 - Constitutional Appears: Well - Respiratory Exam Respiratory Exam: Rales. absent: Respiratory Distress Additional comments: Rales bilaterally up to mid lung barrios. No use of accessory muscles, pt is not in any respiratory distress. No wheezing - Cardiovascular Exam Cardiovascular Exam: REGULAR RHYTHM, JVD, +S1, +S2. absent: Murmur - GI/Abdominal Exam GI & Abdominal Exam: Soft. absent: Tenderness - Extremities Exam Extremities Exam: Normal Capillary Refill. absent: Calf Tenderness Additional comments: No pedal edema. Right foot is tender to palpation of dorsal aspect, +1 pulse, foot is warm, no erythema. Left foot is tender to palpation near surgical incision site. No erythema, swelling, or drainage - Neurological Exam Neurological Exam: Alert, Awake, Oriented x3 - Psychiatric Exam Psychiatric exam: Normal Affect Assessment and Plan (1) Osteomyelitis Status: Acute (2) PVD (peripheral vascular disease) Status: Acute - Assessment and Plan (Free Text) Assessment: 66 y.o. female with hx of Peripheral vascular disease admitted for osteomyelitis POD #2 left lower leg revascularization 1) Acute decompensated Systolic Heart Failure- EF 20%, Acute -Upon returning from revascular procedure in [place], pt was found to be fluid overloaded. No respiratory distress and no hypoxia. Repeat Cxray (05-29) was found to show mild-moderate pulmonary congestion, bilateral pleural effusions. 60mg IV lasix BID was started (05/28) -Cardiology consulted- As per Dr. Russo, NAI is likely secondary to fluid overload; Echo ordered to evaluate LV diameter, PAP, and IVC. Coreg 6.25mg PO and Bumex 1mg IV BID will be started at midnight. Lasix will be D/C -Metroprolol 25mg PO q6 -Plavix restarted- 75mg PO daily -Asp 81mg PO daily -Monitor I/O's -Fluid restrictions -Heart healthy diet 2) Acute Kidney Injury, Acute -Crea 3.5 today, electrolytes stable -Likely due to reduced renal perfusion secondary to low cardiac output vs contrast-induced nephropathy in the setting of DM and Renal vascular disease -Renal US-negative for obstructive pathology, distended bladder -Nephrology consult appreciated- continue with IV lasix 40mg q12 no indication for renal replacement therapy at this time; if no improvement or worsening possible emergent to dialysis tomorrow -Dalal put in to quantify urine output; Strict I/O's -Hold Misha inhibitor and nephrotoxic agents (contrast) -F/u CMP, Mg, Phos, Ulytes, Trop, BNP, CK, ESR -Renally Dose Zosyn -DC lovenox for now and place on Heparin -Renal Diet 3) Anemia -H/H: 7.8/24.1 -FOBT -F/u CBC, Ferritin, TIBC, Reticulocyte -Consulted Heme/Onc -F/U EPO 3) Osteomyelitis - Recommendations as per Podiatry-will likely need surgery after revascularization. Pt can be weight bearing as tolerated to the heels in surgical shoe of affected foot which will act as an off loading device so she doesn't put too much pressure in the forefoot. -Xray Foot: Study reveals what appears to represent some localized irregularity along the superomedial border of the head of first metatarsal. Also some irregularity of the overlying soft tissues and possibly small amount of subcutaneous air. Findings suggest osteomyelitis in this location. -C/w Zosyn 3.375gm Q12, Day 10 -Tramadol for pain Q12. Morphine prn 4) Peripheral Vascular Disease- POD #2 Left lower leg revascularization - Monitor pedal pulses - PT/OT 5) Diabetes Mellitus Type 2 -Levemir 20units am and Levemir 15 -Insulin coverage scale -A1C 7.3 -Diabetic diet -Hypoglycemia protocol in place 6)Hypertension -Controlled -Metoprolol 25 mg Q6 -Coreg 6.25mg Q12 -Misha inhibitor stop for now 7)Hyperlipidemia -Continue home meds: atorvastatin 8)DVT prophylaxis -DC Lovonox -Heparin 5000 units SQ
--- NOTE | 2017-05-30 10:42 | CP.PCM.PN ---
Subjective - Date & Time of Evaluation Date of Evaluation: 05/30/17 Time of Evaluation: 09:20 - Subjective Subjective: Patient reports shortness of breath improved; is urinating more but still finding it difficult to pass urine; tolerating diet; Objective - Vital Signs/Intake and Output Vital Signs (last 24 hours): Temp Pulse Resp BP Pulse Ox 97.7 F 69 20 132/79 99 05/30/17 08:17 05/30/17 09:22 05/30/17 08:17 05/30/17 09:22 05/30/17 08:17 - Medications Medications: Current Medications Acetaminophen (Tylenol 325mg Tab) 650 mg PO Q6 PRN PRN Reason: Pain, moderate (4-7) Last Admin: 05/30/17 00:12 Dose: 650 mg Aspirin (Aspirin Chewable) 81 mg PO DAILY [facility] Last Admin: 05/30/17 09:18 Dose: 81 mg Atorvastatin Calcium (Lipitor) 40 mg PO DAILY [facility] Last Admin: 05/30/17 09:22 Dose: 40 mg Clopidogrel Bisulfate (Plavix) 75 mg PO DAILY [facility] Last Admin: 05/30/17 09:24 Dose: 75 mg Dextrose (Dextrose 50% Inj) 0 ml IV STAT PRN; Protocol PRN Reason: Hyglycemia Protocol Dextrose (Glutose 15) 0 gm PO ONCE PRN; Protocol PRN Reason: Hypoglycemia Protocol Enoxaparin Sodium (Lovenox) 40 mg SC DAILY [facility] PRN Reason: Protocol Last Admin: 05/30/17 09:23 Dose: 40 mg Furosemide (Lasix) 40 mg IVP BID [facility] Last Admin: 05/30/17 09:19 Dose: 40 mg Glucagon (Glucagen Diagnostic Kit) 0 mg IM STAT PRN; Protocol PRN Reason: Hypoglycemia Protocol Piperacillin Sod/Tazobactam (Sod 2.25 gm/ Sodium Chloride) 100 mls @ 100 mls/ hr IVPB Q8H [facility] Last Admin: 05/30/17 09:25 Dose: 100 mls/hr Insulin Detemir (Levemir) 10 units SC QPM [facility] Last Admin: 05/29/17 17:31 Dose: 10 unit Insulin Detemir (Levemir) 15 units SC DAILY [facility] Last Admin: 05/30/17 09:21 Dose: 15 units Insulin Human Regular (Humulin R) 0 units SC ACHS [facility] PRN Reason: Protocol Last Admin: 05/30/17 06:40 Dose: 4 unit Metoprolol Tartrate (Lopressor) 25 mg PO Q6 [facility] Last Admin: 05/30/17 09:22 Dose: 25 mg Mirtazapine (Remeron) 7.5 mg PO HS [facility] Last Admin: 05/29/17 21:40 Dose: 7.5 mg Ramipril (Altace) 10 mg PO DAILY [facility] Last Admin: 05/29/17 09:39 Dose: 10 mg Senna/Docusate Sodium (Senokot S 50 Mg-8.6 Mg) 2 tab PO HS [facility] Last Admin: 05/29/17 21:40 Dose: 2 tab - Labs Labs: 05/30/17 05:30 05/30/17 05:30 PT 13.1 Seconds (9.8-13.1) 05/20/17 06:00 INR 1.2 (0.9-1.2) 05/20/17 06:00 APTT 34.8 Seconds (25.6-37.1) 05/20/17 06:00 - Constitutional Appears: Non-toxic, No Acute Distress - Head Exam Head Exam: NORMAL INSPECTION - Eye Exam Eye Exam: Normal appearance - ENT Exam ENT Exam: Mucous Membranes Moist - Respiratory Exam Respiratory Exam: Rhonchi. absent: Wheezes, Respiratory Distress Additional comments: Bilateral ins rales, significantly increased since yesterday; - Cardiovascular Exam Cardiovascular Exam: REGULAR RHYTHM, +S1, +S2 - GI/Abdominal Exam GI & Abdominal Exam: Soft. absent: Distended, Tenderness - Exam Exam: absent: Bladder Distension - Extremities Exam Additional comments: Mild lower leg edema; - Neurological Exam Neurological Exam: Alert, Awake - Psychiatric Exam Psychiatric exam: Normal Affect, Normal Mood - Skin Skin Exam: Normal Color, Warm. absent: Cyanosis Assessment and Plan (1) Acute renal failure Assessment & Plan: NAI from contrast nephropathy; serum creat continues to increase; uremic signs ( asterixis) and volume excess (elevated JVD, bilateral rales) on exam but appears comfortable on room air; relatively stable electrolyte status; no hydronephrosis on renal US although shows bladder distended; no urgent indication to initiate HD currently; however, explained to patient that HD may be needed by tomorrow; -insert zelaya for accurate I/O -continue lasix IV 40 mg q8-12h (if no response in urine output, should increase to 80 mg) -low Na/K diet; fluid restriction to 1L Status: Acute (2) Cardiomyopathy, dilated Assessment & Plan: Signs of acute decompensation, worsened by acute renal failure; diuresis as above; continue B-blockers per cardio recs; continue to hold SHABBIR inhibitor due to NAI; Status: Acute (3) Osteomyelitis Assessment & Plan: On zosyn 2.25 g q8h, dose adjusted for CrCl < 10 ml/min; Status: Acute (4) PVD (peripheral vascular disease) Assessment & Plan: Extensive PAD with renovascular disease as well; continue lipitor; Status: Acute (5) HTN (hypertension) Assessment & Plan: BP relatively controlled on metoprolol, continue diuretics as above; Status: Chronic (6) CKD (chronic kidney disease) Assessment & Plan: Needs regular outpatient f/u; avoid nephrotoxic agents as much as possible; Status: Chronic
--- NOTE | 2017-05-30 12:02 | CP.PCM.PN ---
Subjective - Date & Time of Evaluation Date of Evaluation: 05/30/17 Time of Evaluation: 12:02 - Subjective Subjective: PT WITH CONTINUED DYSPNEA, ORTHOPNEA. CR INCREASED. PT RECEIVED 2.5 L OF IVF PERIOP FOR PVI. SHE APPEARS VOLUME OVERLOADED AT THIS POINT. Objective - Vital Signs/Intake and Output Vital Signs (last 24 hours): Temp Pulse Resp BP Pulse Ox 97.7 F 69 20 132/79 99 05/30/17 08:17 05/30/17 09:22 05/30/17 08:17 05/30/17 09:22 05/30/17 08:17 - Medications Medications: Current Medications Acetaminophen (Tylenol 325mg Tab) 650 mg PO Q6 PRN PRN Reason: Pain, moderate (4-7) Last Admin: 05/30/17 00:12 Dose: 650 mg Aspirin (Aspirin Chewable) 81 mg PO DAILY [facility] Last Admin: 05/30/17 09:18 Dose: 81 mg Atorvastatin Calcium (Lipitor) 40 mg PO DAILY [facility] Last Admin: 05/30/17 09:22 Dose: 40 mg Bumetanide (Bumex) 1 mg IVP BID [facility] Carvedilol (Coreg) 6.25 mg PO Q12 [facility] Clopidogrel Bisulfate (Plavix) 75 mg PO DAILY [facility] Last Admin: 05/30/17 09:24 Dose: 75 mg Dextrose (Dextrose 50% Inj) 0 ml IV STAT PRN; Protocol PRN Reason: Hyglycemia Protocol Dextrose (Glutose 15) 0 gm PO ONCE PRN; Protocol PRN Reason: Hypoglycemia Protocol Enoxaparin Sodium (Lovenox) 40 mg SC DAILY [facility] PRN Reason: Protocol Last Admin: 05/30/17 09:23 Dose: 40 mg Glucagon (Glucagen Diagnostic Kit) 0 mg IM STAT PRN; Protocol PRN Reason: Hypoglycemia Protocol Piperacillin Sod/Tazobactam (Sod 2.25 gm/ Sodium Chloride) 100 mls @ 100 mls/ hr IVPB Q8H [facility] Last Admin: 05/30/17 09:25 Dose: 100 mls/hr Insulin Detemir (Levemir) 10 units SC QPM [facility] Last Admin: 05/29/17 17:31 Dose: 10 unit Insulin Detemir (Levemir) 15 units SC DAILY [facility] Last Admin: 05/30/17 09:21 Dose: 15 units Insulin Human Regular (Humulin R) 0 units SC ACHS [facility] PRN Reason: Protocol Last Admin: 05/30/17 06:40 Dose: 4 unit Mirtazapine (Remeron) 7.5 mg PO [facility] Last Admin: 05/29/17 21:40 Dose: 7.5 mg Senna/Docusate Sodium (Senokot S 50 Mg-8.6 Mg) 2 tab PO HS [facility] Last Admin: 05/29/17 21:40 Dose: 2 tab - Labs Labs: 05/30/17 05:30 05/30/17 05:30 PT 13.1 Seconds (9.8-13.1) 05/20/17 06:00 INR 1.2 (0.9-1.2) 05/20/17 06:00 APTT 34.8 Seconds (25.6-37.1) 05/20/17 06:00 - Constitutional Appears: Well, Non-toxic - Head Exam Head Exam: ATRAUMATIC, NORMAL INSPECTION, NORMOCEPHALIC - Eye Exam Eye Exam: EOMI, Normal appearance, PERRL. absent: Conjunctival injection, Nystagmus, Periorbital swelling, Periorbital tenderness, Scleral icterus Pupil Exam: NORMAL ACCOMODATION, PERRL - ENT Exam ENT Exam: Mucous Membranes Moist, Normal Exam. absent: Mucous Membranes Dry, Normal External Ear Exam, Normal Oropharynx, TM's Normal Bilaterally - Neck Exam Neck Exam: Full ROM, Lymphadenopathy. absent: Meningismus, Normal Inspection, Tenderness, Thyromegaly Additional comments: 3+ HJR. 1+ JVD. - Respiratory Exam Respiratory Exam: Decreased Breath Sounds, Rales. absent: Accessory Muscle Use , Chest Wall Tenderness, Clear to Ausculation Bilateral, Prolonged Expiratory Phase, Rhonchi, Wheezes, Respiratory Distress, Stridor, NORMAL BREATHING PATTERN Additional comments: B/L CRACKLES 1/2 WAY UP LUNG GAUTHIER. DULLNESS TO PERCUSSION B/L BASES, DECREASED BS B/L. NO WHEEZING OR RHONCHI. - Cardiovascular Exam Cardiovascular Exam: REGULAR RHYTHM, +S1, +S2, Murmur. absent: Bradycardia, Tachycardia, Clicks, Diastolic murmur, Gallop, Irregular Rhythm, JVD, RRR, Rubs , +S4 Additional comments: PT DEVELOPED SOB WITHIN 2 MIN OF LAYING SUPINE AT 0 DEGREES. - GI/Abdominal Exam GI & Abdominal Exam: Soft, Normal Bowel Sounds. absent: Bruit, Distended, Firm , Guarding, Rigid, Tenderness, Diminished Bowel Sounds, Hernia, Hyperactive Bowel Sounds, Hypoactive Bowel Sounds, Organomegaly, Pulsatile Mass, Rebound, Mass - Rectal Exam Rectal Exam: Deferred - Extremities Exam Extremities Exam: Full ROM, Tenderness. absent: Calf Tenderness, Joint Swelling , Normal Capillary Refill, Normal Inspection, Pedal Edema Additional comments: LLE WOUND CDI, MILD TENDERNESS NEAR LEFT FOOT. PULSES INTACT. MILD PRETIBIAL EDEMA ON LEFT. MILD SACRAL EDEMA. - Back Exam Back Exam: NORMAL INSPECTION. absent: CVA tenderness (L), CVA tenderness (R), Full ROM, muscle spasm, paraspinal tenderness, rash noted, tenderness, vertebral tenderness - Neurological Exam Neurological Exam: Alert, Awake, CN II-XII Intact, Oriented x3 - Psychiatric Exam Psychiatric exam: Normal Affect, Normal Mood. absent: Agitated, Anxious, Depressed, Flat Affect, Homicidal Ideation, Manic, Suicidal Ideation - Skin Skin Exam: Dry, Intact, Normal Color, Warm. absent: Abrasion, Cyanosis, Diaphoretic, Erythema, Mottled, Pallor, Pallor, Petechiae, Rash, Urticaria, Vesicles Assessment and Plan (1) Cardiomyopathy, dilated Status: Acute (2) Systolic and diastolic CHF, acute on chronic Status: Acute (3) Volume overload Status: Acute (4) PVD (peripheral vascular disease) Status: Acute (5) SOB (shortness of breath) Status: Acute (6) Hx of myocardial infarction Status: Chronic (7) History of CVA (cerebrovascular accident) Status: Chronic (8) HTN (hypertension) Status: Chronic (9) Dyslipidemia Status: Chronic (10) History of tobacco abuse Status: Chronic (11) Osteomyelitis Status: Acute (12) Diabetic foot ulcer Status: Acute (13) Uncontrolled diabetes mellitus Status: Acute - Assessment and Plan (Free Text) Plan: I BELIEVE PTS CR ELEVATION IS DUE TO VOLUME OVERLOAD RESULTING IN DECREASE IN CARDIAC OUTPUT AND RENAL PERFUSION. I HAVE ORDERED AN ECHO TO EVAL LV DIAMETER , PAP AND IVC. OTHER CHANGES MADE: CHANGED TO COREG FOR CHF, PTS BP INCREASED OFF RAMIPRIL. WILL NEED TO KEEP MAP AT 60 MMHG FOR OPTIMAL CARDIAC OUTPUT. FUCHS PLACED FOR ACCURATE I/O. CHANGED TO BUMEX TO AVOID LOOP RESISTANCE. GAVE ADDITIONAL DOSE OF BUMEX. MONITOR LYTES DAILY AND REPLEAT. WILL CHECK BNP. PT APPEARS TO HAVE SIGNIFICANT DIURESIS SP BUMEX DOSE. APPRECIATE RENAL CONSULTATION. PTS AMPUTATION SHOULD BE HELD OFF UNTIL PT IS STABLE FROM A CHF PERSPECTIVE. ADDITIONALLY PT SHOULD RECEIVE MINIMAL HYDRATION DURING ANY PROCEDURE. I DISCUSSED ALL CHANGES WITH PT, HER FAMILY WELL HOUSE STAFF AND NURSING. 90 MIN TOTAL CARE TIME.
[2017-05-30] MEDS ORDERED: Enoxaparin 40 mg Syringe SC SCH (12:09)
[2017-05-30] MEDS ORDERED: Alum-Mag Hydrox-Simethicone Susp (30 mL) PO ONE (14:40)
--- NOTE | 2017-05-30 16:24 | CP.PCM.PN ---
Subjective - Date & Time of Evaluation Date of Evaluation: 05/30/17 Time of Evaluation: 11:22 - Subjective Subjective: Patient is a 66 year old female with PMHx of HTN, DM, TN, CVA seen at bedside with left medial hallux ulceration 3 days s/p revascularization of left leg at [facility]. Patient states that procedure went well and that she is a little sore but states that the pain in her foot is greatly decreased. Patient denies any further pedal complaints at this time. Patient states that she has been short of breath overnight. Patient denies N/V/F/C/CP Objective - Vital Signs/Intake and Output Vital Signs (last 24 hours): Temp Pulse Resp BP Pulse Ox 98.3 F 70 20 110/66 98 05/30/17 16:02 05/30/17 16:02 05/30/17 16:02 05/30/17 16:02 05/30/17 16:02 - Medications Medications: Current Medications Acetaminophen (Tylenol 325mg Tab) 650 mg PO Q6 PRN PRN Reason: Pain, moderate (4-7) Last Admin: 05/30/17 00:12 Dose: 650 mg Aspirin (Aspirin Chewable) 81 mg PO DAILY [facility] Last Admin: 05/30/17 09:18 Dose: 81 mg Atorvastatin Calcium (Lipitor) 40 mg PO DAILY [facility] Last Admin: 05/30/17 09:22 Dose: 40 mg Bumetanide (Bumex 2.5mg/10 Ml) 1 mg IV BID@0900,2100 [facility] Carvedilol (Coreg) 6.25 mg PO Q12 [facility] Last Admin: 05/30/17 13:28 Dose: 6.25 mg Clopidogrel Bisulfate (Plavix) 75 mg PO DAILY [facility] Last Admin: 05/30/17 09:24 Dose: 75 mg Dextrose (Dextrose 50% Inj) 0 ml IV STAT PRN; Protocol PRN Reason: Hyglycemia Protocol Dextrose (Glutose 15) 0 gm PO ONCE PRN; Protocol PRN Reason: Hypoglycemia Protocol Glucagon (Glucagen Diagnostic Kit) 0 mg IM STAT PRN; Protocol PRN Reason: Hypoglycemia Protocol Heparin Sodium (Porcine) (Heparin) 5,000 units SC Q8 [facility] PRN Reason: Protocol Piperacillin Sod/Tazobactam (Sod 2.25 gm/ Sodium Chloride) 100 mls @ 100 mls/ hr IVPB Q8H [facility] Last Admin: 05/30/17 09:25 Dose: 100 mls/hr Insulin Detemir (Levemir) 10 units SC QPM [facility] Last Admin: 05/29/17 17:31 Dose: 10 unit Insulin Detemir (Levemir) 15 units SC DAILY [facility] Last Admin: 05/30/17 09:21 Dose: 15 units Insulin Human Regular (Humulin R) 0 units SC ACHS [facility] PRN Reason: Protocol Last Admin: 05/30/17 13:30 Dose: 3 unit Mirtazapine (Remeron) 7.5 mg PO HS [facility] Last Admin: 05/29/17 21:40 Dose: 7.5 mg Senna/Docusate Sodium (Senokot S 50 Mg-8.6 Mg) 2 tab PO [facility] Last Admin: 05/29/17 21:40 Dose: 2 tab - Labs Labs: 05/30/17 05:30 05/30/17 05:30 PT 13.1 Seconds (9.8-13.1) 05/20/17 06:00 INR 1.2 (0.9-1.2) 05/20/17 06:00 APTT 34.8 Seconds (25.6-37.1) 05/20/17 06:00 - Constitutional Appears: Non-toxic, No Acute Distress - Extremities Exam Additional comments: LE focused exam Vasc: DP/PT pulses palpable 1/4 b/l. CFT< 3 seconds to digits 1-5 b/l. Temperature gradient warm to warm from proximal to distal. No pedal edema noted b/l Neuro: Epicritic and protective sensation grossly intact b/l Derm: Ulceration measuring 1.5 cm x 1.5 cm x 2 cm with dry necrotic base and hyperkeartotic rim noted. No drainage, purulence, or malodor noted. No tunneling. Undermining is noted to inferior margin. Ortho: Very mild tenderness to palpation medial 1st met head - Neurological Exam Neurological Exam: Alert, Oriented x3 - Psychiatric Exam Psychiatric exam: Normal Affect, Normal Mood Assessment and Plan - Assessment and Plan (Free Text) Assessment: 66 year old F PMHx DM2, HTN, HLD, TN, stroke with left foot 1st metatarsal ulceration and 1st metatarsal head and tibial sesamoid osteomyelitis secondary to DM Plan: Patient seen and evaluated at bedside Charts, labs and vitals reviewed Plan discussed with Dr. Reynoso Podiatry aware of NAI, SHF and possible need for HD Once patient is stabilized discussions on date for right foot OM operation will be made Ulcer dressed with xeroform, 4x4, kirlix Continue abx per ID Continue pain management per medicine Podiatry will continue to follow
[2017-05-30] MEDS: Bumetanide 0.25 MG/ML 10ml inj IV SCH ×2 (18:12→22:05)
[2017-05-30] MEDS: Insulin Detemir 100 Units/ml Inj SC SCH (18:14)
[2017-05-30] MEDS: Docusate-Senna 50 mg-8.6 mg Tab PO SCH (22:13)
[2017-05-31 06:12] LABS: HEMATOCRIT 23.7 % (34.0-47.0); MEAN CORPUSCULAR HEMOGLOBIN 26.8 pg (27.0-31.0); MEAN CORPUSCULAR HGB CONC 32.2 g/dL (33.0-37.0); RED CELL DISTRIBUTION WIDTH 17.3 % (11.5-14.5); WHITE BLOOD COUNT 11.3 K/uL (4.8-10.8)
[2017-05-31 06:24] LABS: BILIRUBIN,TOTAL 0.5 mg/dl (0.2-1.3); CALCIUM 8.5 mg/dL (8.4-10.2); MAGNESIUM 2.1 MG/DL (1.6-2.3); POTASSIUM 3.7 MMOL/L (3.6-5.0); TOTAL PROTEIN 5.7 G/DL (6.3-8.2)
[2017-05-31 06:27] LABS: IRON 24 ug/dL (37-170)
[2017-05-31] MEDS: Insulin Regular 100 units/ml SC SCH ×4 (06:50→21:33)
[2017-05-31 06:56] LABS: ALB/GLOB RATIO 0.8 (1.0-2.1)
[2017-05-31 06:57] LABS: TROPONIN I 0.138 ng/mL (0.00-0.120)
--- NOTE | 2017-05-31 07:31 | CP.PCM.PN ---
Subjective - Date & Time of Evaluation Date of Evaluation: 05/31/17 Time of Evaluation: 07:31 - Subjective Subjective: 66 year old female with PMHx of HTN, DM, ND, CVA seen at bedside with left medial hallux ulceration 4 days s/p revascularization of left leg. She is seen resting comfortably in bed, NAD, and AA0x3. Patient denies n/v/cp/f or chills. She states her SOB has slightly improved, but she feels that it's difficult to breath through the nose. She also reports having tenderness to left calf today. Objective - Vital Signs/Intake and Output Vital Signs (last 24 hours): Temp Pulse Resp BP Pulse Ox 98.2 F 96 H 16 131/74 96 05/31/17 03:38 05/31/17 03:38 05/31/17 03:38 05/31/17 03:38 05/31/17 03:38 Intake and Output: 05/31/17 05/31/17 06:59 18:59 Intake Total 500 Output Total 1100 Balance -600 - Medications Medications: Current Medications Acetaminophen (Tylenol 325mg Tab) 650 mg PO Q6 PRN PRN Reason: Pain, moderate (4-7) Last Admin: 05/31/17 06:46 Dose: 650 mg Aspirin (Aspirin Chewable) 81 mg PO DAILY [facility] Last Admin: 05/30/17 09:18 Dose: 81 mg Atorvastatin Calcium (Lipitor) 40 mg PO DAILY [facility] Last Admin: 05/30/17 09:22 Dose: 40 mg Bumetanide (Bumex 2.5mg/10 Ml) 1 mg IV BID@0900,2100 [facility] Last Admin: 05/30/17 22:05 Dose: 1 mg Carvedilol (Coreg) 6.25 mg PO Q12 [facility] Last Admin: 05/30/17 22:47 Dose: 6.25 mg Clopidogrel Bisulfate (Plavix) 75 mg PO DAILY [facility] Last Admin: 05/30/17 09:24 Dose: 75 mg Dextrose (Dextrose 50% Inj) 0 ml IV STAT PRN; Protocol PRN Reason: Hyglycemia Protocol Dextrose (Glutose 15) 0 gm PO ONCE PRN; Protocol PRN Reason: Hypoglycemia Protocol Glucagon (Glucagen Diagnostic Kit) 0 mg IM STAT PRN; Protocol PRN Reason: Hypoglycemia Protocol Heparin Sodium (Porcine) (Heparin) 5,000 units SC Q8 [facility] PRN Reason: Protocol Last Admin: 05/31/17 00:08 Dose: 5,000 units Piperacillin Sod/Tazobactam (Sod 2.25 gm/ Sodium Chloride) 100 mls @ 100 mls/ hr IVPB Q8H [facility] Last Admin: 05/31/17 01:13 Dose: 100 mls/hr Insulin Detemir (Levemir) 15 units SC QPM [facility] Insulin Detemir (Levemir) 20 units SC DAILY [facility] Insulin Human Regular (Humulin R) 0 units SC ACHS [facility] PRN Reason: Protocol Last Admin: 05/31/17 06:50 Dose: Not Given Mirtazapine (Remeron) 7.5 mg PO HS [facility] Last Admin: 05/30/17 22:12 Dose: 7.5 mg Senna/Docusate Sodium (Senokot S 50 Mg-8.6 Mg) 2 tab PO HS [facility] Last Admin: 05/30/17 22:13 Dose: 2 tab - Labs Labs: 05/31/17 06:01 05/31/17 06:03 PT 13.1 Seconds (9.8-13.1) 05/20/17 06:00 INR 1.2 (0.9-1.2) 05/20/17 06:00 APTT 34.8 Seconds (25.6-37.1) 05/20/17 06:00 - Constitutional Appears: Well, Non-toxic, No Acute Distress - Extremities Exam Extremities Exam: Calf Tenderness Additional comments: LE focused exam Vasc: DP/PT pulses palpable 1/4 b/l. CFT< 3 seconds to digits 1-5 b/l. Temperature gradient warm to warm from proximal to distal. Mild edema noted to the left calf Neuro: Epicritic and protective sensation grossly intact b/l Derm: Ulceration measuring 1.5 cm x 1.5 cm x .2 cm with dry necrotic base and hyperkeratotic rim noted. No drainage, purulence, or malodor noted. No streaking or erythema noted. No tunneling. Undermining is noted to inferior margin. Ortho: Very mild tenderness to palpation medial 1st met head, Pain elicited with palpation to the posterior left calf - Neurological Exam Neurological Exam: Alert, Awake, Oriented x3 - Psychiatric Exam Psychiatric exam: Normal Affect, Normal Mood Assessment and Plan - Assessment and Plan (Free Text) Assessment: 66 year old female PMHx DM2, PVD, HTN, HLD, ND, stroke with L 1st metatarsal ulceration secondary to DM and 1st metatarsal head and tibial sesamoid osteomyelitis POD #3 L leg revascularization. Plan: Patient seen and evaluated at bedside Charts, labs and vitals reviewed (afebrile, WBC=11.3 (10.7 on 05/30/17)) Plan discussed in detail with attending, Dr. Reynoso Podiatry aware of patient has NAI, CHF, and possible need for HD Once patient is stabilized, discussions on date for right foot OM operation will be made Ulcer dressed with xeroform, 4x4, kerlix Continue abx per ID Continue pain management per medicine F/U ultrasound for L leg Podiatry will continue to follow while in house
[2017-05-31] MEDS: Insulin Detemir 100 Units/ml Inj SC SCH ×2 (08:29→17:19)
[2017-05-31] MEDS ORDERED: Bumetanide 0.25 MG/ML 10ml inj IV SCH (09:00)
--- NOTE | 2017-05-31 10:54 | CP.PCM.PN ---
Subjective - Date & Time of Evaluation Date of Evaluation: 05/31/17 Time of Evaluation: 10:30 - Subjective Subjective: Patient reports some shortness of breath overnight that has since improved; reports large BM overnight; tolerating diet; Objective - Vital Signs/Intake and Output Vital Signs (last 24 hours): Temp Pulse Resp BP Pulse Ox 98.3 F 75 18 130/78 96 05/31/17 08:03 05/31/17 08:59 05/31/17 08:03 05/31/17 08:59 05/31/17 08:03 Intake and Output: 05/31/17 05/31/17 06:59 18:59 Intake Total 500 Output Total 1100 Balance -600 - Medications Medications: Current Medications Acetaminophen (Tylenol 325mg Tab) 650 mg PO Q6 PRN PRN Reason: Pain, moderate (4-7) Last Admin: 05/31/17 06:46 Dose: 650 mg Aspirin (Aspirin Chewable) 81 mg PO DAILY [facility] Last Admin: 05/31/17 08:28 Dose: 81 mg Atorvastatin Calcium (Lipitor) 40 mg PO DAILY [facility] Last Admin: 05/31/17 08:29 Dose: 40 mg Bumetanide (Bumex 2.5mg/10 Ml) 1 mg IV Q12H [facility] Carvedilol (Coreg) 6.25 mg PO Q12 [facility] Last Admin: 05/31/17 08:28 Dose: 6.25 mg Clopidogrel Bisulfate (Plavix) 75 mg PO DAILY [facility] Last Admin: 05/31/17 08:28 Dose: 75 mg Dextrose (Dextrose 50% Inj) 0 ml IV STAT PRN; Protocol PRN Reason: Hyglycemia Protocol Dextrose (Glutose 15) 0 gm PO ONCE PRN; Protocol PRN Reason: Hypoglycemia Protocol Glucagon (Glucagen Diagnostic Kit) 0 mg IM STAT PRN; Protocol PRN Reason: Hypoglycemia Protocol Heparin Sodium (Porcine) (Heparin) 5,000 units SC Q8 [facility] PRN Reason: Protocol Last Admin: 05/31/17 08:30 Dose: 5,000 units Hydralazine HCl (Apresoline) 25 mg PO TID [facility]S [facility] Last Admin: 05/31/17 08:59 Dose: 25 mg Piperacillin Sod/Tazobactam (Sod 2.25 gm/ Sodium Chloride) 100 mls @ 100 mls/ hr IVPB Q8H [facility] Last Admin: 05/31/17 09:50 Dose: 100 mls/hr Insulin Detemir (Levemir) 15 units SC QPM [facility] Insulin Detemir (Levemir) 20 units SC DAILY [facility] Last Admin: 05/31/17 08:29 Dose: 20 units Insulin Human Regular (Humulin R) 0 units SC ACHS [facility] PRN Reason: Protocol Last Admin: 05/31/17 06:50 Dose: Not Given Isosorbide Mononitrate (Imdur) 60 mg PO DAILY [facility] Last Admin: 05/31/17 09:01 Dose: 60 mg Mirtazapine (Remeron) 7.5 mg PO HS [facility] Last Admin: 05/30/17 22:12 Dose: 7.5 mg Senna/Docusate Sodium (Senokot S 50 Mg-8.6 Mg) 2 tab PO HS [facility] Last Admin: 05/30/17 22:13 Dose: 2 tab - Labs Labs: 05/31/17 06:01 05/31/17 06:03 PT 13.1 Seconds (9.8-13.1) 05/20/17 06:00 INR 1.2 (0.9-1.2) 05/20/17 06:00 APTT 34.8 Seconds (25.6-37.1) 05/20/17 06:00 - Constitutional Appears: Well, No Acute Distress - Head Exam Head Exam: NORMAL INSPECTION - Eye Exam Eye Exam: Normal appearance. absent: Scleral icterus - ENT Exam ENT Exam: Mucous Membranes Moist - Respiratory Exam Respiratory Exam: Rales. absent: Rhonchi, Wheezes, Respiratory Distress Additional comments: Extensive bilateral insp rales; - Cardiovascular Exam Cardiovascular Exam: REGULAR RHYTHM, +S1, +S2 - GI/Abdominal Exam GI & Abdominal Exam: Soft. absent: Distended - Exam Exam: absent: Bladder Distension - Extremities Exam Additional comments: Mild b/l lower leg edema L>R; - Neurological Exam Neurological Exam: Alert, Awake Additional comments: Asterixis present; - Psychiatric Exam Psychiatric exam: Normal Affect - Skin Skin Exam: Normal Color. absent: Cyanosis Assessment and Plan (1) Acute renal failure Assessment & Plan: Secondary to contrast nephropathy, more extensive after second contrast study ( angioplasty); cannot rule out some component of venous congestion in the setting of severe systolic dysfunction but pattern of creatinine rise is most consistent with ATN from IV contrast; non-oliguric renal failure; volume overloaded on exam but responding to diuretics with stable FIO2 requirement ( comfortable on room air); stable electrolyte status; Rate is rise of serum creatinine has slowed and indicates that renal recovery is close; No indication for HD at this time; -continue diuretics (currently getting IV bumex 1 mg, patient needs at least twice daily dosing and may need higher dose in setting of worsening renal function) -fluid restriction to 1L/day -low Na/low K diet -repeat k level in pm to avoid diuretic induced hypokalemia in the setting of dilated cardiomyopathy Status: Acute (2) Cardiomyopathy, dilated Assessment & Plan: Acute severely decompensated systolic CHF; heart failure meds adjusted by cardiology; recommend to continue IV diuresis with bumex 1 mg bid as mentioned above and keep K ~ 4.0; Status: Acute (3) Osteomyelitis Assessment & Plan: On zosyn 2.25 g q8h, correctly dosed for CrCl < 10 ml/min; Status: Acute (4) PVD (peripheral vascular disease) Assessment & Plan: Continue lipitor, patient also with renovascular disease; Status: Acute (5) HTN (hypertension) Assessment & Plan: Currently normotensive; CHF meds added/adjusted; f/u with cardiology; Status: Chronic (6) CKD (chronic kidney disease) Assessment & Plan: Has underlying CKD despite seemingly normal baseline serum creat; needs outpatient f/u; Status: Chronic
--- NOTE | 2017-05-31 11:23 | CP.PCM.PN ---
Subjective - Date & Time of Evaluation Date of Evaluation: 05/31/17 Time of Evaluation: 11:27 - Subjective Subjective: No acute overnight events. Pt seen and evaluated at the bedside. States that she is having moderate pain in her left lower extremity that is relieved by the pain medication she is being given. Pain in her left extremity now extends from her toe to her calf. Still has SOB, exacerbated when lying flat, mildly improved from yesterday. Also complains of constipation and had a lot of difficulty passing stool this morning. Denies chest pain, abdominal pain, acute onset SOB, fever, chills, cough, or numbness or tingling of extremities Objective - Vital Signs/Intake and Output Vital Signs (last 24 hours): Temp Pulse Resp BP Pulse Ox 98.3 F 75 18 130/78 96 05/31/17 08:03 05/31/17 08:59 05/31/17 08:03 05/31/17 08:59 05/31/17 08:03 Intake and Output: 05/31/17 05/31/17 06:59 18:59 Intake Total 500 Output Total 1100 Balance -600 - Medications Medications: Current Medications Acetaminophen (Tylenol 325mg Tab) 650 mg PO Q6 PRN PRN Reason: Pain, moderate (4-7) Last Admin: 05/31/17 06:46 Dose: 650 mg Aspirin (Aspirin Chewable) 81 mg PO DAILY [facility] Last Admin: 05/31/17 08:28 Dose: 81 mg Atorvastatin Calcium (Lipitor) 40 mg PO DAILY [facility] Last Admin: 05/31/17 08:29 Dose: 40 mg Bumetanide (Bumex 2.5mg/10 Ml) 1 mg IV Q12H [facility] Carvedilol (Coreg) 6.25 mg PO Q12 [facility] Last Admin: 05/31/17 08:28 Dose: 6.25 mg Clopidogrel Bisulfate (Plavix) 75 mg PO DAILY [facility] Last Admin: 05/31/17 08:28 Dose: 75 mg Dextrose (Dextrose 50% Inj) 0 ml IV STAT PRN; Protocol PRN Reason: Hyglycemia Protocol Dextrose (Glutose 15) 0 gm PO ONCE PRN; Protocol PRN Reason: Hypoglycemia Protocol Glucagon (Glucagen Diagnostic Kit) 0 mg IM STAT PRN; Protocol PRN Reason: Hypoglycemia Protocol Heparin Sodium (Porcine) (Heparin) 5,000 units SC Q8 [facility] PRN Reason: Protocol Last Admin: 05/31/17 08:30 Dose: 5,000 units Hydralazine HCl (Apresoline) 25 mg PO TID [facility] Last Admin: 05/31/17 08:59 Dose: 25 mg Piperacillin Sod/Tazobactam (Sod 2.25 gm/ Sodium Chloride) 100 mls @ 100 mls/ hr IVPB Q8H [facility] Last Admin: 05/31/17 09:50 Dose: 100 mls/hr Insulin Detemir (Levemir) 15 units SC QPM [facility] Insulin Detemir (Levemir) 20 units SC DAILY [facility] Last Admin: 05/31/17 08:29 Dose: 20 units Insulin Human Regular (Humulin R) 0 units SC ACHS [facility] PRN Reason: Protocol Last Admin: 05/31/17 06:50 Dose: Not Given Isosorbide Mononitrate (Imdur) 60 mg PO DAILY [facility] Last Admin: 05/31/17 09:01 Dose: 60 mg Mirtazapine (Remeron) 7.5 mg PO [facility] Last Admin: 05/30/17 22:12 Dose: 7.5 mg Senna/Docusate Sodium (Senokot S 50 Mg-8.6 Mg) 2 tab PO [facility] Last Admin: 05/30/17 22:13 Dose: 2 tab - Labs Labs: 05/31/17 06:01 05/31/17 06:03 PT 13.1 Seconds (9.8-13.1) 05/20/17 06:00 INR 1.2 (0.9-1.2) 05/20/17 06:00 APTT 34.8 Seconds (25.6-37.1) 05/20/17 06:00 - Constitutional Appears: Well, No Acute Distress - ENT Exam ENT Exam: Mucous Membranes Moist - Neck Exam Additional comments: JVD appreciated - Respiratory Exam Respiratory Exam: Rales. absent: Accessory Muscle Use, Wheezes, Respiratory Distress Additional comments: Rales heard on auscultation in the bases and mid lung barrios bilaterally. Pt not in any acute respiratory distress. On 2L O2 NC - Cardiovascular Exam Cardiovascular Exam: REGULAR RHYTHM, JVD, +S1, +S2 - GI/Abdominal Exam GI & Abdominal Exam: Soft, Normal Bowel Sounds. absent: Tenderness - Extremities Exam Extremities Exam: absent: Pedal Edema Additional comments: Left extremity is bigger than right extremity up to the ankle. Calf tenderness to palpation. - Neurological Exam Neurological Exam: Alert, Awake, Oriented x3 Additional comments: No sensory and motor deficits of lower extremities Assessment and Plan (1) Osteomyelitis Status: Acute (2) PVD (peripheral vascular disease) Status: Acute (3) Acute kidney injury Status: Acute - Assessment and Plan (Free Text) Assessment: 66 y.o. female with hx of Peripheral vascular disease admitted for osteomyelitis POD #2 left lower leg revascularization 1) Acute decompensated Systolic Heart Failure- EF 20%, Acute -Upon returning from revascular procedure in [place], pt was found to be fluid overloaded. No respiratory distress and no hypoxia. Repeat Cxray (05-29) was found to show mild-moderate pulmonary congestion, bilateral pleural effusions. 60mg IV lasix BID was started (05/28) -Cardiology consulted- As per Dr. Russo, NAI is likely secondary to fluid overload; Echo ordered to evaluate LV diameter, PAP, and IVC. -Vitals wnl, afebrile -Troponin I= 0.1380 (Cardio informed), Pro-BNP 64,000 -Net Output= 960ml -Coreg 6.25mg PO and Bumex 1mg IV BID started. Lasix D/C -Asp 81mg PO daily, Plavix 75mg PO daily -Started on Hydralazine 25mg, and Isosorbid Mononitrate 60mg -Monitor I/O's -Fluid and salt restrictions -Heart healthy diet -Plan: Continue Diuresing and monitor pt's vital signs, I/O, SOB and lung exam. Echo today to evaluate LV diameter as per Dr. Russo. 2) Acute Kidney Injury, Acute -Crea 4.0 today, electrolytes stable -Likely due to reduced renal perfusion secondary to low cardiac output vs contrast-induced nephropathy in the setting of DM and Renal vascular disease -Renal US-negative for obstructive pathology, distended bladder -Nephrology consult appreciated- Although increased, the rate of Crea rise has slowed which can indicate renal recovery, continue with IV Bumex as per cardiology's recommendation but recommending to give 2x/day no indication for renal replacement therapy at this time; if no improvement or worsening possible emergent to dialysis tomorrow. Recheck K in pm, keep >4 -Dalal put in to quantify urine output; Strict I/O's -Hold Misha inhibitor and nephrotoxic agents (contrast) -Mg, Phos normal -F/u CMP, Mg, Phos, Ulytes, Trop, BNP, CK, ESR -Renally Dose Zosyn -DC lovenox for now and place on Heparin -Renal Diet -Plan: Spoke with nephro about the need for emergent HD; We will wait to see tomorrows Crea. C/w diuresis as NAI is likely due to poor cardiac output causing poor kidney perfusion. Avoid all nephrotoxic agents. F/U labs 3) Anemia, Acute -H/H: 7.6/23.7 (decreased) -Ferritin wnl, TIBC wnl - Iron 24( L), Reticulocyte: 3.4 (H) -Consulted Heme/Onc -F/U EPO 3) Osteomyelitis, Acute -Afebrile, No leukocytosis - Recommendations as per Podiatry-will likely need surgery after revascularization. Pt can be weight bearing as tolerated to the heels in surgical shoe of affected foot which will act as an off loading device so she doesn't put too much pressure in the forefoot. -Xray Foot: Study reveals what appears to represent some localized irregularity along the superomedial border of the head of first metatarsal. Also some irregularity of the overlying soft tissues and possibly small amount of subcutaneous air. Findings suggest osteomyelitis in this location. -C/w Zosyn 3.375gm Q12, Day 10 -Tramadol for pain Q12. Morphine prn 4) Peripheral Vascular Disease- POD #2 Left lower leg revascularization - Monitor pedal pulses - PT/OT 5) Diabetes Mellitus Type 2 -Levemir 20units am and Levemir 15 -Insulin coverage scale -A1C 7.3 -Diabetic diet -Hypoglycemia protocol in place 6)Hypertension -Currently normotensive, controlled -Metoprolol 25 mg Q6 -Coreg 6.25mg Q12 -Misha inhibitor stopped for now 7)Hyperlipidemia -Continue home meds: atorvastatin 8)DVT prophylaxis -Heparin 5000 units SQ
--- NOTE | 2017-05-31 16:13 | US ---
PROCEDURE: Left lower extremity duplex venous sonography HISTORY: Swelling, Calf Tenderness COMPARISON: None available. TECHNIQUE: Real-time ultrasound scan of the veins with color flow, spectral waveform analysis and compression FINDINGS: Left lower extremity: Macro Doppler Complex fluid collection left ankle adjacent to the posterior tibial vein measuring 1.2 x 4.4 by 2.6 cm IMPRESSION: Negative study for acute deep vein thrombosis. Thick walled complex fluid collection left calf adjacent to but not communicating with the distal left posterior tibial vein
--- NOTE | 2017-05-31 16:36 | CP.PCM.CON ---
History of Present Illness - History of Present Illness History of Present Illness: Hematology Consult Referred by Dr. Deutsch for anemia HPI- Ms Carias is 66 y/o F with h/o HTN, DM, HLD, CAD, CVA, Chronic back pain, PVD who was admitted to [facility] on 05/19/17 for left foot osteomyelitis. She was treated with IV antibiotics and underwent LLE angiogram w/ angioplasty and stenting. Hospital course complicated by NAI, CHF and worsening anemia. Review of her blood work shows borderline normocytic anemia that is slowly worsening. Hb today was 7.6. No evidence of bleeding. WBC and platelets are overall stable. She complains of shortness of breath and constipation. Denies blood in stools/ urine. She feels tired. Complains of pain in left foot/ leg. Denies fever, chills. Family history- non contributory Social Hx: former smoker (smoked 2cig/day for 40+ yrs, quit one year ago), denies occasional EtOH use, denies drug use (prescription painkillers, marijuana , cocaine, heroin). Lives with spouse in apartment on [address]th floor. Review of Systems - Review of Systems All systems: reviewed and no additional remarkable complaints except Review of Systems: as in HPI Past Patient History - Infectious Disease Hx of Infectious Diseases: None - Tetanus Immunizations Tetanus Immunization: Unknown - Past Medical History & Family History Past Medical History?: Yes - Past Social History Smoking Status: Former Smoker Chewing Tobacco Use: No Cigar Use: No Alcohol: None Drugs: Denies Home Situation {Lives}: With Family Domestic Violence: Negative - CARDIAC Hx Cardiac Disorders: Yes Hx Hypercholesterolemia: Yes Hx Hypertension: Yes - PULMONARY Hx Respiratory Disorders: No - NEUROLOGICAL Hx Neurological Disorder: Yes HX Cerebrovascular Accident: Yes (left sided weakness) - HEENT Hx HEENT Problems: No - RENAL Hx Chronic Kidney Disease: No - ENDOCRINE/METABOLIC Hx Endocrine Disorders: Yes Hx Diabetes Mellitus Type 2: Yes - HEMATOLOGICAL/ONCOLOGICAL Hx Blood Disorders: No - INTEGUMENTARY Hx Dermatological Problems: No - MUSCULOSKELETAL/RHEUMATOLOGICAL Hx Musculoskeletal Disorders: Yes Hx Falls: Yes (fell 6 months ago) Other/Comment: hx of chronic back pain - GASTROINTESTINAL Hx Gastrointestinal Disorders: No - GENITOURINARY/GYNECOLOGICAL Hx Genitourinary Disorders: No - PSYCHIATRIC Hx Psychophysiologic Disorder: No Hx Substance Use: No - SURGICAL HISTORY Hx Surgeries: Yes Hx Section: Yes - ANESTHESIA Hx Anesthesia: Yes Hx Anesthesia Reactions: No Meds Allergies/Adverse Reactions: Allergies Allergy/AdvReac Type Severity Reaction Status Date / Time No Known Allergies Allergy Verified 05/14/16 14:21 - Medications Medications: Current Medications Acetaminophen (Tylenol 325mg Tab) 650 mg PO Q6 PRN PRN Reason: Pain, moderate (4-7) Last Admin: 05/31/17 06:46 Dose: 650 mg Aspirin (Aspirin Chewable) 81 mg PO DAILY [facility] Last Admin: 05/31/17 08:28 Dose: 81 mg Atorvastatin Calcium (Lipitor) 40 mg PO DAILY [facility] Last Admin: 05/31/17 08:29 Dose: 40 mg Bumetanide (Bumex 2.5mg/10 Ml) 1 mg IV Q12H [facility] Carvedilol (Coreg) 6.25 mg PO Q12 [facility] Last Admin: 05/31/17 08:28 Dose: 6.25 mg Clopidogrel Bisulfate (Plavix) 75 mg PO DAILY [facility] Last Admin: 05/31/17 08:28 Dose: 75 mg Dextrose (Dextrose 50% Inj) 0 ml IV STAT PRN; Protocol PRN Reason: Hyglycemia Protocol Dextrose (Glutose 15) 0 gm PO ONCE PRN; Protocol PRN Reason: Hypoglycemia Protocol Glucagon (Glucagen Diagnostic Kit) 0 mg IM STAT PRN; Protocol PRN Reason: Hypoglycemia Protocol Heparin Sodium (Porcine) (Heparin) 5,000 units SC Q8 [facility] PRN Reason: Protocol Last Admin: 05/31/17 08:30 Dose: 5,000 units Hydralazine HCl (Apresoline) 25 mg PO TID [facility] Last Admin: 05/31/17 13:00 Dose: Not Given Piperacillin Sod/Tazobactam (Sod 2.25 gm/ Sodium Chloride) 100 mls @ 100 mls/ hr IVPB Q8H [facility] Last Admin: 05/31/17 09:50 Dose: 100 mls/hr Iron Sucrose 200 mg/ Sodium (Chloride) 110 mls @ 110 mls/hr IVPB DAILY [facility] Stop: 06/04/17 16:31 Insulin Detemir (Levemir) 15 units SC QPM [facility] Insulin Detemir (Levemir) 20 units SC DAILY [facility] Last Admin: 05/31/17 08:29 Dose: 20 units Insulin Human Regular (Humulin R) 0 units SC ACHS [facility] PRN Reason: Protocol Last Admin: 05/31/17 12:00 Dose: Not Given Isosorbide Mononitrate (Imdur) 60 mg PO DAILY [facility] Last Admin: 05/31/17 09:01 Dose: 60 mg Mirtazapine (Remeron) 7.5 mg PO [facility] Last Admin: 05/30/17 22:12 Dose: 7.5 mg Senna/Docusate Sodium (Senokot S 50 Mg-8.6 Mg) 2 tab PO [facility] Last Admin: 05/30/17 22:13 Dose: 2 tab Physical Exam - Head Exam Head Exam: ATRAUMATIC, NORMAL INSPECTION - Eye Exam Eye Exam: EOMI, PERRL - ENT Exam ENT Exam: Mucous Membranes Moist - Neck Exam Neck exam: Negative for: Lymphadenopathy - Respiratory Exam Respiratory Exam: Decreased Breath Sounds (at bases) - Cardiovascular Exam Cardiovascular Exam: REGULAR RHYTHM - GI/Abdominal Exam GI & Abdominal Exam: Normal Bowel Sounds, Soft. absent: Organomegaly, Tenderness - Extremities Exam Extremities exam: Positive for: pedal edema (mild) - Neurological Exam Neurological exam: Alert, Oriented x3 Results - Vital Signs Recent Vital Signs: Last Vital Signs Temp 98.2 F 05/31/17 16:00 Pulse 74 05/31/17 16:00 Resp 18 05/31/17 16:00 BP 112/64 05/31/17 16:00 Pulse Ox 98 05/31/17 16:00 - Labs Result Diagrams: 05/31/17 06:01 05/31/17 06:03 Labs: Laboratory Results - last 24 hr 05/30/17 05/31/17 05/31/17 16:40 05:38 06:01 WBC 11.3 H RBC 2.86 L Hgb 7.6 L Hct 23.7 L MCV 83.0 MCH 26.8 L MCHC 32.2 L RDW 17.3 H Plt Count 157 ESR 29 Retic Count Sodium Potassium Chloride Carbon Dioxide Anion Gap BUN Creatinine Est GFR ( Amer) Est GFR (Non-Af Amer) POC Glucose (mg/dL) 367 H 109 Random Glucose Calcium Magnesium Iron TIBC % Saturation Ferritin Total Bilirubin AST ALT Alkaline Phosphatase Total Creatine Kinase Troponin I NT-Pro-B Natriuret Pep Total Protein Albumin Globulin Albumin/Globulin Ratio 05/31/17 05/31/17 05/31/17 06:03 06:03 06:03 WBC RBC Hgb Hct MCV MCH MCHC RDW Plt Count ESR Retic Count 3.4 H Sodium 137 Potassium 3.7 Chloride 108 H Carbon Dioxide 19 L Anion Gap 14 BUN 39 H Creatinine 4.0 H Est GFR ( Amer) 14 Est GFR (Non-Af Amer) 11 POC Glucose (mg/dL) Random Glucose 96 Calcium 8.5 Magnesium 2.1 Iron 24 L TIBC 294 % Saturation 8 L Ferritin 16.7 Total Bilirubin 0.5 AST 28 ALT 54 H Alkaline Phosphatase 86 Total Creatine Kinase 49 Troponin I 0.1380 H* NT-Pro-B Natriuret Pep 98332 H Total Protein 5.7 L Albumin 2.6 L Globulin 3.1 Albumin/Globulin Ratio 0.8 L 05/31/17 11:37 WBC RBC Hgb Hct MCV MCH MCHC RDW Plt Count ESR Retic Count Sodium Potassium Chloride Carbon Dioxide Anion Gap BUN Creatinine Est GFR ( Amer) Est GFR (Non-Af Amer) POC Glucose (mg/dL) 139 H Random Glucose Calcium Magnesium Iron TIBC % Saturation Ferritin Total Bilirubin AST ALT Alkaline Phosphatase Total Creatine Kinase Troponin I NT-Pro-B Natriuret Pep Total Protein Albumin Globulin Albumin/Globulin Ratio Assessment & Plan - Assessment and Plan (Free Text) Assessment: Microcytic anemia with iron deficiency. -No evidence of gross bleeding but we should evaluate her for ocult blood loss. Other factors like recent procedure, multiple phlebotomies could also contribute. Her retic count is elevated suggesting appropriate response of bone marrow to anemia. Will follow up erythropoeitin levels. Will start her on IV Venofer 200 mg daily for 3-4 days. Monitor for bleeding. Check stool guaiac. Consider GI consult and endoscopic work up once clinically stable (She never had colonoscopy before) Will also check B12, folate and serum protein electrophoresis. Continue to monitor blood counts routinely. Thank you for the consult Rock Snow MD - Date & Time Date: 05/31/17 Time: 16:36
[2017-05-31 17:07] LABS: RBC URINE 1 /hpf (0-3); URINE BILIRUBIN NEGATIVE (NEGATIVE); URINE BLOOD NEGATIVE (NEGATIVE); URINE COLOR STRAW (YELLOW); URINE GLUCOSE (UA) NEG (Normal); URINE KETONE NEGATIVE (NEGATIVE); URINE LEUKOCYTE ESTERASE NEG Leu/uL (Negative); URINE PROTEIN NEGATIVE (NEGATIVE); URINE UROBILINOGEN 0.2-1.0 mg/dL (0.2-1.0); WBC URINE 1 /hpf (0-5)
[2017-05-31 18:30] LABS: CALCIUM 8.3 mg/dL (8.4-10.2); POTASSIUM 3.7 MMOL/L (3.6-5.0)
[2017-05-31] MEDS: Docusate-Senna 50 mg-8.6 mg Tab PO SCH ×2 (21:31→21:38)
[2017-05-31] MEDS: Bumetanide 0.25 MG/ML 10ml inj IV SCH (21:32)
--- NOTE | 2017-05-31 23:23 | CP.PCM.PCO ---
Progress Note - Review of Symptoms Other Systems: Called to assess 66 y/o F with PMH including IDDM2, HTN, CHF, NAI, Anemia and Hemorrhagic CVA who is currently being treated for left foot osteomyelitis. Patient reports new onset diffuse headache described as "pressure" with 8/10 intensity. She reports associated episode of nausea with non-bloody vomiting and blurring of her vision. Patient denies any dysarthria or focal weakness. Exam: GEN: Patient awake, alert, answering questions appropriately. No acute distress. CV: RRR, S1/S2 normal PULM: B/L air entry present with crackles appreciated b/l. No signs of respiratory distress. ABD: Soft, NT, ND, BS+ NEURO: PERRLA, EOMI, CN II-XII grossly intact, Strength symmetric b/l, Speech clear without any dysarthria, Though process logical Based on new symptoms will order CT head w/o contrast. Patient currently on heparin for anticoagulation. Will hold heparin at this time and resume if CT head WNL.
--- NOTE | 2017-05-31 23:45 | CT ---
EXAM: CT Head Without Intravenous Contrast CLINICAL HISTORY: 66 years old, female; Signs and symptoms; Other: Pressure; Additional info: C/O head "pressure" associated with nausea/vomitin TECHNIQUE: Axial computed tomography images of the head/brain without intravenous contrast. This CT exam was performed using one or more of the following dose reduction techniques: automated exposure control, adjustment of the mA and/or kV according to patient size, and/or use of iterative reconstruction technique. Coronal and sagittal reformatted images were created and reviewed. COMPARISON: CT - HEAD W/O CONTRAST 05/24/2017 7:09:50 PM FINDINGS: Brain: No acute intracranial hemorrhage. Age-appropriate periventricular white matter disease. No edema. Multiple bilateral lacunar infarcts, unchanged. Ventricles: Age-appropriate ventriculomegaly. Bones: No acute displaced fracture. Sinuses: Unremarkable as visualized. No acute sinusitis. Mastoid air cells: Unremarkable as visualized. No mastoid effusion. IMPRESSION: No acute intracranial hemorrhage, or suspicious mass effect.
[2017-06-01 06:04] LABS: HEMATOCRIT 23.3 % (34.0-47.0); MEAN CELL VOLUME 82.4 fl (81.0-99.0); MEAN CORPUSCULAR HEMOGLOBIN 27.4 pg (27.0-31.0); MEAN CORPUSCULAR HGB CONC 33.3 g/dL (33.0-37.0); RED CELL DISTRIBUTION WIDTH 17.9 % (11.5-14.5); WHITE BLOOD COUNT 10.5 K/uL (4.8-10.8)
[2017-06-01 06:16] LABS: ALB/GLOB RATIO 0.9 (1.0-2.1); BILIRUBIN,TOTAL 0.4 mg/dl (0.2-1.3); CALCIUM 8.6 mg/dL (8.4-10.2); POTASSIUM 3.8 MMOL/L (3.6-5.0); TOTAL PROTEIN 5.6 G/DL (6.3-8.2)
[2017-06-01] MEDS: Insulin Regular 100 units/ml SC SCH ×4 (06:57→21:47)
--- NOTE | 2017-06-01 08:07 | CP.PCM.PN ---
Subjective - Date & Time of Evaluation Date of Evaluation: 06/01/17 Time of Evaluation: 06:40 - Subjective Subjective: Overnight pt experienced intense headache with associated [place] (no vomiting), 8/10 in severity with radiation to jaws and neck. Head CT was negative for an acute hemorrhage. Pain resolved shortly after given Tylenol. This morning she complains of mild pain of left lower extremity at surgical site. She states her SOB is improving from yesterday. Denies chest pain, palpitations, cough, calf pain, n/v/d, numbness or tingling in extremities, visual or motor deficits. Objective - Vital Signs/Intake and Output Vital Signs (last 24 hours): Temp Pulse Resp BP Pulse Ox 97.6 F 94 H 19 123/74 99 06/01/17 04:49 06/01/17 04:49 06/01/17 04:49 06/01/17 04:49 06/01/17 04:49 Intake and Output: 06/01/17 06/01/17 06:59 18:59 Intake Total 400 Output Total 1400 Balance -1000 - Medications Medications: Current Medications Acetaminophen (Tylenol 325mg Tab) 650 mg PO Q6 PRN PRN Reason: Pain, moderate (4-7) Last Admin: 06/01/17 00:02 Dose: 650 mg Aspirin (Aspirin Chewable) 81 mg PO DAILY [facility] Last Admin: 05/31/17 08:28 Dose: 81 mg Atorvastatin Calcium (Lipitor) 40 mg PO DAILY [facility] Last Admin: 05/31/17 08:29 Dose: 40 mg Bumetanide (Bumex 2.5mg/10 Ml) 1 mg IV Q12H [facility] Last Admin: 05/31/17 21:32 Dose: 1 mg Carvedilol (Coreg) 6.25 mg PO Q12 [facility] Last Admin: 05/31/17 21:31 Dose: 6.25 mg Clopidogrel Bisulfate (Plavix) 75 mg PO DAILY [facility] Last Admin: 05/31/17 08:28 Dose: 75 mg Dextrose (Dextrose 50% Inj) 0 ml IV STAT PRN; Protocol PRN Reason: Hyglycemia Protocol Dextrose (Glutose 15) 0 gm PO ONCE PRN; Protocol PRN Reason: Hypoglycemia Protocol Glucagon (Glucagen Diagnostic Kit) 0 mg IM STAT PRN; Protocol PRN Reason: Hypoglycemia Protocol Heparin Sodium (Porcine) (Heparin) 5,000 units SC Q8 [facility] PRN Reason: Protocol Last Admin: 06/01/17 01:11 Dose: 5,000 units Hydralazine HCl (Apresoline) 25 mg PO TID [facility] Last Admin: 05/31/17 16:39 Dose: 25 mg Piperacillin Sod/Tazobactam (Sod 2.25 gm/ Sodium Chloride) 100 mls @ 100 mls/ hr IVPB Q8H [facility] Last Admin: 06/01/17 01:11 Dose: 100 mls/hr Iron Sucrose 200 mg/ Sodium (Chloride) 110 mls @ 110 mls/hr IVPB 1700 [facility] Last Admin: 05/31/17 17:18 Dose: 110 mls/hr Insulin Detemir (Levemir) 15 units SC QPM [facility] Last Admin: 05/31/17 17:19 Dose: 15 u Insulin Detemir (Levemir) 20 units SC DAILY [facility] Last Admin: 05/31/17 08:29 Dose: 20 units Insulin Human Regular (Humulin R) 0 units SC ACHS [facility] PRN Reason: Protocol Last Admin: 06/01/17 06:57 Dose: 4 unit Isosorbide Mononitrate (Imdur) 60 mg PO DAILY [facility] Last Admin: 05/31/17 09:01 Dose: 60 mg Mirtazapine (Remeron) 7.5 mg PO [facility] Last Admin: 05/31/17 21:30 Dose: 7.5 mg Senna/Docusate Sodium (Senokot S 50 Mg-8.6 Mg) 2 tab PO [facility] Last Admin: 05/31/17 21:38 Dose: Not Given - Labs Labs: 06/01/17 05:20 06/01/17 05:20 PT 13.1 Seconds (9.8-13.1) 05/20/17 06:00 INR 1.2 (0.9-1.2) 05/20/17 06:00 APTT 34.8 Seconds (25.6-37.1) 05/20/17 06:00 - Constitutional Appears: Well, No Acute Distress - ENT Exam ENT Exam: Mucous Membranes Moist - Respiratory Exam Respiratory Exam: Rales. absent: Accessory Muscle Use, Wheezes, Respiratory Distress Additional comments: Rales auscultated up to mid lung bases (improved). No wheezing. No use of accessory muscles. - Cardiovascular Exam Cardiovascular Exam: REGULAR RHYTHM, +S1, +S2. absent: Murmur - GI/Abdominal Exam GI & Abdominal Exam: Hyperactive Bowel Sounds, Normal Bowel Sounds - Extremities Exam Extremities Exam: absent: Calf Tenderness, Pedal Edema - Neurological Exam Neurological Exam: Alert, Awake, Oriented x3 Neuro motor strength exam: Left Upper Extremity: 5, Right Upper Extremity: 5, Left Lower Extremity: 5, Right Lower Extremity: 5 - Psychiatric Exam Psychiatric exam: Anxious Assessment and Plan (1) Osteomyelitis Status: Acute (2) PVD (peripheral vascular disease) Status: Acute (3) Acute kidney injury Status: Acute - Assessment and Plan (Free Text) Assessment: 66 y.o. female with hx of Peripheral vascular disease admitted for osteomyelitis POD #2 left lower leg revascularization 1) Acute decompensated Systolic Heart Failure- EF 20%, Acute -Upon returning from revascular procedure in [place], pt was found to be fluid overloaded. No respiratory distress and no hypoxia. Repeat Cxray (05-29) was found to show mild-moderate pulmonary congestion, bilateral pleural effusions. 60mg IV lasix BID was started (05/28). -Cardiology consulted- As per Dr. Russo, NAI is likely secondary to fluid overload; Echo ordered to evaluate LV diameter, PAP, and IVC. -SOB improving, no LE edema, Vitals wnl, afebrile -Troponin I= 0.1380 (Cardio informed), Latest Pro BNP- 41,800 (improving) -Net Output= 650ml -Coreg 6.25mg PO and Bumex 1mg IV BID started. Lasix D/C -Asp 81mg PO daily, Plavix 75mg PO daily -Started on Bumex 1mg IV q12, Hydralazine 25mg, and Isosorbid Mononitrate 60mg -Monitor I/O's -Fluid and salt restrictions -Heart healthy diet -Plan: Continue Diuresing and monitor pt's vital signs, I/O, SOB and lung exam. Echo to evaluate LV diameter as per Dr. Russo. 2) Acute Kidney Injury, Acute -Crea 3.5 today (improving), electrolytes stable -Likely due to reduced renal perfusion secondary to low cardiac output vs contrast-induced nephropathy in the setting of DM and Renal vascular disease -Renal US-negative for obstructive pathology, distended bladder -Nephrology consult appreciated- Although increased, the rate of Crea rise has slowed which can indicate renal recovery, continue with IV Bumex as per cardiology's recommendation but recommending to give 2x/day no indication for renal replacement therapy at this time; if no improvement or worsening possible emergent to dialysis tomorrow. -Zelaya put in to quantify urine output; Strict I/O's -Hold Misha inhibitor and nephrotoxic agents (contrast) -Mg, Phos normal -F/u CMP, Mg, Phos, Ulytes, Trop, BNP, CK, ESR -Renally Dose Zosyn -DC lovenox for now and place on Heparin -Renal Diet -Plan: Crea is improving so emergent dialysis not likely necessary as kidney function is responding to diuresis. Will confirm plan with Nephro. C/w diuresis as NAI is likely due to poor cardiac output causing poor kidney perfusion. Speak with Nephro about possibly removing zelaya. Avoid all nephrotoxic agents. F /U labs 3) Anemia, Acute -H/H: 7.8/23.3 (improving) -Ferritin wnl, TIBC wnl - Iron 24( L), Reticulocyte: 3.4 (H) -B12 normal, Folate pending -Hemo/Onc consulted- Dr. Snow, Pt's borderline normocytic anemia worsened likely due to multiple phlebotomies vs recent procedure. Consider GI consults when stable for endoscopic work up as pt has never had colonoscopy before. Recommends FOBT, B12, Folate -F/U EPO, Folate 3) Osteomyelitis, Acute -Afebrile, No leukocytosis - Recommendations as per Podiatry-will likely need surgery after revascularization. Pt can be weight bearing as tolerated to the heels in surgical shoe of affected foot which will act as an off loading device so she doesn't put too much pressure in the forefoot. -Xray Foot: Study reveals what appears to represent some localized irregularity along the superomedial border of the head of first metatarsal. Also some irregularity of the overlying soft tissues and possibly small amount of subcutaneous air. Findings suggest osteomyelitis in this location. -C/w Zosyn 3.375gm Q12, Day 10 -Tyelenol 650mg prn for pain. Pt tolerating pain well -Social Work Consulted: Pt has concerns about her living arrangements after her surgery (likely a below the knee amputation). She lives in a 5 floor walk up with . Plan:Picc line placement today, Speak with Nephro and Cardio about when pt can possibly be ready for the OR 4) Peripheral Vascular Disease- POD #2 Left lower leg revascularization - Monitor pedal pulses - PT/OT 5) Diabetes Mellitus Type 2 -POCG have been in the high 200's. Daily levemir increased to 25units. Continue to monitor -Levemir 25units daily and Levemir 15 -Insulin coverage scale -A1C 7.3 -Diabetic diet -Hypoglycemia protocol in place 6)Hypertension -Currently normotensive, controlled -Metoprolol 25 mg Q6 -Coreg 6.25mg Q12 -Misha inhibitor stopped for now 7)Hyperlipidemia -Continue home meds: atorvastatin 8)DVT prophylaxis -Heparin 5000 units SQ
[2017-06-01] MEDS: Insulin Detemir 100 Units/ml Inj SC SCH ×2 (08:45→17:11)
[2017-06-01] MEDS: Bumetanide 0.25 MG/ML 10ml inj IV SCH (09:01)
--- NOTE | 2017-06-01 09:06 | CP.PCM.PN ---
Subjective - Date & Time of Evaluation Date of Evaluation: 06/01/17 Time of Evaluation: 07:30 - Subjective Subjective: 66 year old female with PMHx of HTN, DM, ND, CVA, ND, PVD seen at bedside with left medial hallux ulceration and osteomyelitis of left hallux and tibial sesamoid 5 days s/p revascularization of left leg. She is seen resting comfortably in bed, NAD, and AA0x3. She reports mild pain to her left lower extremity today. She reports having headache last night. She reports still having SOB. She denies n/v/cp or f. Objective - Vital Signs/Intake and Output Vital Signs (last 24 hours): Temp Pulse Resp BP Pulse Ox 98.1 F 89 20 122/73 99 06/01/17 08:19 06/01/17 08:44 06/01/17 08:19 06/01/17 08:44 06/01/17 08:19 Intake and Output: 06/01/17 06/01/17 06:59 18:59 Intake Total 400 Output Total 1400 Balance -1000 - Medications Medications: Current Medications Acetaminophen (Tylenol 325mg Tab) 650 mg PO Q6 PRN PRN Reason: Pain, moderate (4-7) Last Admin: 06/01/17 00:02 Dose: 650 mg Aspirin (Aspirin Chewable) 81 mg PO DAILY [facility] Last Admin: 06/01/17 08:44 Dose: 81 mg Atorvastatin Calcium (Lipitor) 40 mg PO DAILY [facility] Last Admin: 06/01/17 08:44 Dose: 40 mg Bumetanide (Bumex 2.5mg/10 Ml) 1 mg IV Q12H [facility] Last Admin: 05/31/17 21:32 Dose: 1 mg Carvedilol (Coreg) 6.25 mg PO Q12 [facility] Last Admin: 06/01/17 08:43 Dose: 6.25 mg Clopidogrel Bisulfate (Plavix) 75 mg PO DAILY [facility] Last Admin: 06/01/17 08:44 Dose: 75 mg Dextrose (Dextrose 50% Inj) 0 ml IV STAT PRN; Protocol PRN Reason: Hyglycemia Protocol Dextrose (Glutose 15) 0 gm PO ONCE PRN; Protocol PRN Reason: Hypoglycemia Protocol Glucagon (Glucagen Diagnostic Kit) 0 mg IM STAT PRN; Protocol PRN Reason: Hypoglycemia Protocol Heparin Sodium (Porcine) (Heparin) 5,000 units SC Q8 [facility] PRN Reason: Protocol Last Admin: 06/01/17 08:46 Dose: 5,000 units Hydralazine HCl (Apresoline) 25 mg PO TID [facility] Last Admin: 06/01/17 08:44 Dose: 25 mg Piperacillin Sod/Tazobactam (Sod 2.25 gm/ Sodium Chloride) 100 mls @ 100 mls/ hr IVPB Q8H [facility] Last Admin: 06/01/17 01:11 Dose: 100 mls/hr Iron Sucrose 200 mg/ Sodium (Chloride) 110 mls @ 110 mls/hr IVPB 1700 [facility] Last Admin: 05/31/17 17:18 Dose: 110 mls/hr Insulin Detemir (Levemir) 15 units SC QPM [facility] Last Admin: 05/31/17 17:19 Dose: 15 u Insulin Detemir (Levemir) 20 units SC DAILY [facility] Last Admin: 06/01/17 08:45 Dose: 20 units Insulin Human Regular (Humulin R) 0 units SC ACHS [facility] PRN Reason: Protocol Last Admin: 06/01/17 06:57 Dose: 4 unit Isosorbide Mononitrate (Imdur) 60 mg PO DAILY [facility] Last Admin: 06/01/17 08:44 Dose: 60 mg Mirtazapine (Remeron) 7.5 mg PO HS [facility] Last Admin: 05/31/17 21:30 Dose: 7.5 mg Senna/Docusate Sodium (Senokot S 50 Mg-8.6 Mg) 2 tab PO HS [facility] Last Admin: 05/31/17 21:38 Dose: Not Given - Labs Labs: 06/01/17 05:20 06/01/17 05:20 PT 13.1 Seconds (9.8-13.1) 05/20/17 06:00 INR 1.2 (0.9-1.2) 05/20/17 06:00 APTT 34.8 Seconds (25.6-37.1) 05/20/17 06:00 - Constitutional Appears: Well, Non-toxic, No Acute Distress - Extremities Exam Additional comments: Vasc: DP/PT pulses palpable 1/4 b/l. CFT< 3 seconds to digits 1-5 b/l. Temperature gradient warm to warm from proximal to distal. Neuro: Epicritic and protective sensation grossly intact b/l Derm: Ulceration measuring 1.5 cm x 1.5 cm x .2 cm with dry necrotic base and hyperkeratotic rim noted. No drainage, purulence, or malodor noted. No streaking or erythema noted. No tunneling. Undermining is noted to inferior margin. Ortho: Very mild tenderness to palpation left medial 1st met head, tenderness with palpation to the left calf - Neurological Exam Neurological Exam: Alert, Awake, Oriented x3 - Psychiatric Exam Psychiatric exam: Normal Affect, Normal Mood Assessment and Plan - Assessment and Plan (Free Text) Assessment: 66 year old female PMHx DM2, PVD, HTN, HLD, ND, stroke with L 1st metatarsal ulceration secondary to DM and L 1st metatarsal head and tibial sesamoid osteomyelitis POD #5 L leg revascularization. Plan: Patient seen and evaluated at bedside Charts, labs and vitals reviewed (afebrile, WBC=10.5) Plan discussed in detail with attending, Dr. Reynoso Podiatry aware patient has NAI, CHF, and anemia Once patient is stabilized, discussions of right foot OM operation will be made Dressing changed; Ulcer dressed with xeroform, 4x4, kerlix Continue abx per ID Continue pain management per medicine Ultrasound- negative for DVT Podiatry will continue to follow while in house
--- NOTE | 2017-06-01 11:58 | CP.PCM.PN ---
Subjective - Date & Time of Evaluation Date of Evaluation: 06/01/17 Time of Evaluation: 11:53 - Subjective Subjective: Again reporting some shortness of breath overnight, not currently; tolerated breakfast this morning, not nauseous; Objective - Vital Signs/Intake and Output Vital Signs (last 24 hours): Temp Pulse Resp BP Pulse Ox 98.1 F 89 20 122/73 99 06/01/17 08:19 06/01/17 08:44 06/01/17 08:19 06/01/17 08:44 06/01/17 08:19 Intake and Output: 06/01/17 06/01/17 06:59 18:59 Intake Total 400 Output Total 1400 Balance -1000 - Medications Medications: Current Medications Acetaminophen (Tylenol 325mg Tab) 650 mg PO Q6 PRN PRN Reason: Pain, moderate (4-7) Last Admin: 06/01/17 00:02 Dose: 650 mg Aspirin (Aspirin Chewable) 81 mg PO DAILY [facility] Last Admin: 06/01/17 08:44 Dose: 81 mg Atorvastatin Calcium (Lipitor) 40 mg PO DAILY [facility] Last Admin: 06/01/17 08:44 Dose: 40 mg Carvedilol (Coreg) 6.25 mg PO Q12 [facility] Last Admin: 06/01/17 08:43 Dose: 6.25 mg Clopidogrel Bisulfate (Plavix) 75 mg PO DAILY [facility] Last Admin: 06/01/17 08:44 Dose: 75 mg Dextrose (Dextrose 50% Inj) 0 ml IV STAT PRN; Protocol PRN Reason: Hyglycemia Protocol Dextrose (Glutose 15) 0 gm PO ONCE PRN; Protocol PRN Reason: Hypoglycemia Protocol Glucagon (Glucagen Diagnostic Kit) 0 mg IM STAT PRN; Protocol PRN Reason: Hypoglycemia Protocol Heparin Sodium (Porcine) (Heparin) 5,000 units SC Q8 [facility] PRN Reason: Protocol Last Admin: 06/01/17 08:46 Dose: 5,000 units Hydralazine HCl (Apresoline) 25 mg PO TID [facility] Last Admin: 06/01/17 08:44 Dose: 25 mg Piperacillin Sod/Tazobactam (Sod 2.25 gm/ Sodium Chloride) 100 mls @ 100 mls/ hr IVPB Q8H [facility] Last Admin: 06/01/17 09:03 Dose: 100 mls/hr Iron Sucrose 200 mg/ Sodium (Chloride) 110 mls @ 110 mls/hr IVPB 1700 [facility] Last Admin: 05/31/17 17:18 Dose: 110 mls/hr Insulin Detemir (Levemir) 15 units SC QPM [facility] Last Admin: 05/31/17 17:19 Dose: 15 u Insulin Detemir (Levemir) 25 units SC DAILY [facility] Insulin Human Regular (Humulin R) 0 units SC ACHS [facility] PRN Reason: Protocol Last Admin: 06/01/17 06:57 Dose: 4 unit Isosorbide Mononitrate (Imdur) 60 mg PO DAILY [facility] Last Admin: 06/01/17 08:44 Dose: 60 mg Mirtazapine (Remeron) 7.5 mg PO HS [facility] Last Admin: 05/31/17 21:30 Dose: 7.5 mg Senna/Docusate Sodium (Senokot S 50 Mg-8.6 Mg) 2 tab PO [facility] Last Admin: 05/31/17 21:38 Dose: Not Given - Labs Labs: 06/01/17 05:20 06/01/17 05:20 PT 13.1 Seconds (9.8-13.1) 05/20/17 06:00 INR 1.2 (0.9-1.2) 05/20/17 06:00 APTT 34.8 Seconds (25.6-37.1) 05/20/17 06:00 - Constitutional Appears: Well, No Acute Distress - Head Exam Head Exam: NORMAL INSPECTION - Eye Exam Eye Exam: Normal appearance. absent: Scleral icterus - ENT Exam ENT Exam: Mucous Membranes Moist - Respiratory Exam Respiratory Exam: Clear to Ausculation Bilateral, NORMAL BREATHING PATTERN. absent: Rales, Rhonchi, Wheezes, Respiratory Distress - Cardiovascular Exam Cardiovascular Exam: REGULAR RHYTHM Additional comments: soft heart sounds; - Exam Additional comments: zelaya in place; - Extremities Exam Extremities Exam: Normal Capillary Refill Additional comments: minimal lower leg edema L > R; - Neurological Exam Neurological Exam: Alert, Awake - Psychiatric Exam Psychiatric exam: Normal Affect, Normal Mood - Skin Skin Exam: Normal Color, Warm. absent: Cyanosis Assessment and Plan (1) Acute renal failure Assessment & Plan: Secondary to contrast induced nephropathy; now improving; need to monitor for post-ATN diuresis; will stop diuretics for now to avoid volume depletion ( volume status much improved); -maintain zelaya for I/O -if becomes polyuric (>3L UO/24 hrs), start gentle IVF w/ 1/2NS at 60 cc/hr; otherwise, in setting of improving CHF exacerbation, would just allow to auto- diurese; Status: Acute (2) Cardiomyopathy, dilated Assessment & Plan: Acute decompensated systolic CHF, improving; no more rales on lung exam; no JVD ; see recs above; Status: Acute (3) Osteomyelitis Assessment & Plan: On zosyn 2.25 g q8h, continue current dosing for advanced renal insufficiency; will need to increase dosing as renal function improves; Status: Acute (4) PVD (peripheral vascular disease) Assessment & Plan: Continue atorvastatin; Status: Acute (5) HTN (hypertension) Assessment & Plan: Currently normotensive; on CHF meds; monitor for hypotension; may need to start IVF as above in setting of post-ATN diuresis; Status: Chronic (6) CKD (chronic kidney disease) Assessment & Plan: Needs outpatient f/u; workup once NAI resolves; Status: Chronic
[2017-06-01 17:45] LABS: FOLATE 9.2 ng/mL
[2017-06-01] MEDS: Docusate-Senna 50 mg-8.6 mg Tab PO SCH (21:38)
[2017-06-01] MEDS: Sodium Chloride 0.45% 1,000 ML IV SCH (21:39)
[2017-06-02 03:17] LABS: TOTAL PROTEIN, SERUM 5.2 g/dL (6.1-8.1)
[2017-06-02 06:29] LABS: HEMATOCRIT 22.1 % (34.0-47.0); MEAN CELL VOLUME 83.4 fl (81.0-99.0); MEAN CORPUSCULAR HEMOGLOBIN 27.3 pg (27.0-31.0); MEAN CORPUSCULAR HGB CONC 32.7 g/dL (33.0-37.0); RED CELL DISTRIBUTION WIDTH 17.6 % (11.5-14.5)
[2017-06-02] MEDS: Insulin Regular 100 units/ml SC SCH ×4 (06:32→21:30)
[2017-06-02 06:35] LABS: CALCIUM 8.5 mg/dL (8.4-10.2); PHOSPHOROUS 4.8 mg/dl (2.5-4.5); POTASSIUM 3.5 MMOL/L (3.6-5.0)
[2017-06-02] MEDS ORDERED: Potassium Chloride 20 mEq ER Tab PO ONE (07:16)
--- NOTE | 2017-06-02 09:02 | CP.PCM.PN ---
Subjective - Date & Time of Evaluation Date of Evaluation: 06/02/17 Time of Evaluation: 06:45 - Subjective Subjective: Pt seen and evaluated at the bedside this morning. States she is still having mild SOB at rest that is exacerbated when lying flat although it has improved from yesterday. States she feels weaker today. States pain in her left lower extremity is relieved by the pain medication. Denies new episodes of headache, CP, palpatations, N/V/D, Abdominal pain, or any sensory or motor deficits in her left extremity. Objective - Vital Signs/Intake and Output Vital Signs (last 24 hours): Temp Pulse Resp BP Pulse Ox 98.0 F 88 18 97/61 L 99 06/02/17 08:00 06/02/17 08:00 06/02/17 08:00 06/02/17 08:00 06/02/17 08:00 Intake and Output: 06/02/17 06/02/17 06:59 18:59 Intake Total 550 Output Total 650 Balance -100 - Medications Medications: Current Medications Acetaminophen (Tylenol 325mg Tab) 650 mg PO Q6 PRN PRN Reason: Pain, moderate (4-7) Last Admin: 06/02/17 01:50 Dose: 650 mg Acetaminophen (Tylenol 325mg Tab) 650 mg PO Q6 PRN PRN Reason: Headache Aspirin (Aspirin Chewable) 81 mg PO DAILY [facility] Last Admin: 06/01/17 08:44 Dose: 81 mg Atorvastatin Calcium (Lipitor) 40 mg PO DAILY [facility] Last Admin: 06/01/17 08:44 Dose: 40 mg Carvedilol (Coreg) 6.25 mg PO Q12 [facility] Last Admin: 06/01/17 21:37 Dose: 6.25 mg Clopidogrel Bisulfate (Plavix) 75 mg PO DAILY [facility] Last Admin: 06/01/17 08:44 Dose: 75 mg Dextrose (Dextrose 50% Inj) 0 ml IV STAT PRN; Protocol PRN Reason: Hyglycemia Protocol Dextrose (Glutose 15) 0 gm PO ONCE PRN; Protocol PRN Reason: Hypoglycemia Protocol Glucagon (Glucagen Diagnostic Kit) 0 mg IM STAT PRN; Protocol PRN Reason: Hypoglycemia Protocol Heparin Sodium (Porcine) (Heparin) 5,000 units SC Q8 [facility] PRN Reason: Protocol Last Admin: 06/02/17 01:46 Dose: 5,000 units Hydralazine HCl (Apresoline) 25 mg PO TID [facility] Last Admin: 06/01/17 16:11 Dose: Not Given Piperacillin Sod/Tazobactam (Sod 2.25 gm/ Sodium Chloride) 100 mls @ 100 mls/ hr IVPB Q8H [facility] Last Admin: 06/02/17 01:47 Dose: 100 mls/hr Iron Sucrose 200 mg/ Sodium (Chloride) 110 mls @ 110 mls/hr IVPB 1700 [facility] Last Admin: 06/01/17 16:19 Dose: 110 mls/hr Sodium Chloride (Sodium Chloride 0.45%) 1,000 mls @ 50 mls/hr IV .Q20H [facility] Stop: 06/02/17 21:17 Last Admin: 06/01/17 21:39 Dose: 50 mls/hr Insulin Detemir (Levemir) 15 units SC QPM [facility] Last Admin: 06/01/17 17:11 Dose: 15 u Insulin Detemir (Levemir) 25 units SC DAILY [facility] Insulin Human Regular (Humulin R) 0 units SC ACHS [facility] PRN Reason: Protocol Last Admin: 06/02/17 06:32 Dose: Not Given Isosorbide Mononitrate (Imdur) 60 mg PO DAILY [facility] Last Admin: 06/01/17 08:44 Dose: 60 mg Mirtazapine (Remeron) 7.5 mg PO [facility] Last Admin: 06/01/17 21:38 Dose: 7.5 mg Senna/Docusate Sodium (Senokot S 50 Mg-8.6 Mg) 2 tab PO [facility] Last Admin: 06/01/17 21:38 Dose: Not Given - Labs Labs: 06/02/17 05:55 06/02/17 05:55 PT 13.1 Seconds (9.8-13.1) 05/20/17 06:00 INR 1.2 (0.9-1.2) 05/20/17 06:00 APTT 34.8 Seconds (25.6-37.1) 05/20/17 06:00 - Constitutional Appears: Well, No Acute Distress - Respiratory Exam Respiratory Exam: Rales Additional comments: Bibasilar rales (imroved). No use of accessory muscles, no wheezing. - Cardiovascular Exam Cardiovascular Exam: REGULAR RHYTHM, +S1, +S2. absent: Gallop, Murmur - GI/Abdominal Exam GI & Abdominal Exam: Soft. absent: Tenderness - Extremities Exam Additional comments: No pedal edema, Left lower extremity: no redness, slightly tender to palpation of toes near surgical site. No motor defecits. Mild numbness - Neurological Exam Neurological Exam: Alert, Awake, Oriented x3 Assessment and Plan (1) Osteomyelitis Status: Acute (2) PVD (peripheral vascular disease) Status: Acute (3) Acute kidney injury Status: Acute - Assessment and Plan (Free Text) Assessment: 66 y.o. female with hx of Peripheral vascular disease admitted for osteomyelitis POD #2 left lower leg revascularization 1) Acute decompensated Systolic Heart Failure- EF 20%, Acute -Upon returning from revascular procedure in [place], pt was found to be fluid overloaded. No respiratory distress and no hypoxia. Repeat Cxray (05-29) was found to show mild-moderate pulmonary congestion, bilateral pleural effusions. 60mg IV lasix BID was started (05/28). -Cardiology consulted- As per Dr. Russo, NAI is likely secondary to fluid overload; Echo ordered to evaluate LV diameter, PAP, and IVC. -SOB improving, no LE edema, Vitals wnl, afebrile -(06/01)Troponin I= 0.1380 (Cardio informed) -Today: Pro BNP 20742 -Net Output= -Coreg 6.25mg PO and Bumex 1mg IV BID started. -Asp 81mg PO daily, Plavix 75mg PO daily -Started on Bumex 1mg IV q12, Hydralazine 25mg, and Isosorbid Mononitrate 60mg -Monitor I/O's -Fluid and salt restrictions -Heart healthy diet -Plan: Continue Diuresing and monitor pt's vital signs, I/O, SOB and lung exam. Echo to evaluate LV diameter as per Dr. Russo. 2) Acute Kidney Injury, Acute -Crea 2.9 today (improving), electrolytes stable -Likely due to reduced renal perfusion secondary to low cardiac output vs contrast-induced nephropathy in the setting of DM and Renal vascular disease -Renal US-negative for obstructive pathology, distended bladder -Nephrology consult appreciated- Although increased, the rate of Crea rise has slowed which can indicate renal recovery, continue with IV Bumex as per cardiology's recommendation but recommending to give 2x/day no indication for renal replacement therapy at this time; -Dalal put in to quantify urine output; Strict I/O's -Hold Misha inhibitor and nephrotoxic agents (contrast) -Mg nml, Phos=4.8 -Renally Dose Zosyn -Renal Diet -Plan: Crea is improving. C/w diuresis as NAI is likely due to poor cardiac output causing poor kidney perfusion. Avoid all nephrotoxic agents. F/U labs- monitor phosphate 3) Hypokalemia 3.5 -Pt denies constipation,muscle cramps -Likely secondary to diuretic -Given KCl 40mg once -Continue to monitor 4) Anemia, Acute -H/H: 7.2/22.1 -Ferritin wnl, TIBC wnl - Iron 24( L), Reticulocyte: 3.4 (H) -B12 normal, Folate nml -Hemo/Onc consulted- Dr. Snow, Pt's borderline normocytic anemia worsened likely due to multiple phlebotomies vs recent vascular procedure. Consider GI consults when stable for endoscopic work up as pt has never had colonoscopy before. Recommends FOBT, B12, Folate -F/U EPO, FOBT today 5) Osteomyelitis, Acute -Afebrile, No leukocytosis - Recommendations as per Podiatry-will likely need surgery after revascularization. Pt can be weight bearing as tolerated to the heels in surgical shoe of affected foot which will act as an off loading device so she doesn't put too much pressure in the forefoot. -Xray Foot: Study reveals what appears to represent some localized irregularity along the superomedial border of the head of first metatarsal. Also some irregularity of the overlying soft tissues and possibly small amount of subcutaneous air. Findings suggest osteomyelitis in this location. -C/w Zosyn 3.375gm Q12, Day 10 -Tyelenol 650mg prn for pain. Pt tolerating pain well -Social Work Referral: Pt has concerns about her living arrangements after her surgery (likely a below the knee amputation). She lives in a 5 floor walk up with . Plan:Speak with Nephro and Cardio about when pt can possibly be ready for the OR ; Will continue ABX after OR for 7 days as per ID 6) Peripheral Vascular Disease- POD #2 Left lower leg revascularization - Monitor pedal pulses - PT/OT 7) Diabetes Mellitus Type 2 -POCG have been in the high 200's. Daily levemir increased to 25units. Continue to monitor -Levemir 25units daily and Levemir 15 -Insulin coverage scale -A1C 7.3 -Diabetic diet -Hypoglycemia protocol in place 8)Hypertension -Currently normotensive, controlled -Metoprolol 25 mg Q6 -Coreg 6.25mg Q12 -Misha inhibitor stopped for now 9)Hyperlipidemia -Continue home meds: atorvastatin 10)DVT prophylaxis -Heparin 5000 units SQ
[2017-06-02] MEDS: Insulin Detemir 100 Units/ml Inj SC SCH ×2 (10:01→18:31)
--- NOTE | 2017-06-02 11:06 | CP.PCM.PN ---
Subjective - Date & Time of Evaluation Date of Evaluation: 06/02/17 Time of Evaluation: 11:03 - Subjective Subjective: 66 year old female with PMHx of HTN, DM, GA, CVA, GA, PVD seen at bedside with attending Dr. Reynoso for left medial hallux ulceration and osteomyelitis of left hallux and tibial sesamoid 6 days s/p revascularization of left leg. She is seen resting comfortably in bed, NAD, and AA0x3. She states that she feels tired. She reports tenderness to the left lower extremity; reports no pain at the site of ulceration. She reports still having SOB but has improved. She denies n/v/cp or f. Objective - Vital Signs/Intake and Output Vital Signs (last 24 hours): Temp Pulse Resp BP Pulse Ox 98.0 F 90 18 101/65 99 06/02/17 08:00 06/02/17 09:57 06/02/17 08:00 06/02/17 09:57 06/02/17 08:00 Intake and Output: 06/02/17 06/02/17 06:59 18:59 Intake Total 550 Output Total 650 Balance -100 - Medications Medications: Current Medications Acetaminophen (Tylenol 325mg Tab) 650 mg PO Q6 PRN PRN Reason: Pain, moderate (4-7) Last Admin: 06/02/17 01:50 Dose: 650 mg Acetaminophen (Tylenol 325mg Tab) 650 mg PO Q6 PRN PRN Reason: Headache Aspirin (Aspirin Chewable) 81 mg PO DAILY [facility] Last Admin: 06/02/17 09:57 Dose: 81 mg Atorvastatin Calcium (Lipitor) 40 mg PO DAILY [facility] Last Admin: 06/02/17 09:55 Dose: 40 mg Carvedilol (Coreg) 6.25 mg PO Q12 [facility] Last Admin: 06/02/17 09:57 Dose: 6.25 mg Clopidogrel Bisulfate (Plavix) 75 mg PO DAILY [facility] Last Admin: 06/02/17 09:53 Dose: 75 mg Dextrose (Dextrose 50% Inj) 0 ml IV STAT PRN; Protocol PRN Reason: Hyglycemia Protocol Dextrose (Glutose 15) 0 gm PO ONCE PRN; Protocol PRN Reason: Hypoglycemia Protocol Glucagon (Glucagen Diagnostic Kit) 0 mg IM STAT PRN; Protocol PRN Reason: Hypoglycemia Protocol Heparin Sodium (Porcine) (Heparin) 5,000 units SC Q8 [facility] PRN Reason: Protocol Last Admin: 06/02/17 09:58 Dose: 5,000 units Hydralazine HCl (Apresoline) 25 mg PO TID [facility] Last Admin: 06/02/17 09:56 Dose: 25 mg Piperacillin Sod/Tazobactam (Sod 2.25 gm/ Sodium Chloride) 100 mls @ 100 mls/ hr IVPB Q8H [facility] Last Admin: 06/02/17 10:09 Dose: 100 mls/hr Iron Sucrose 200 mg/ Sodium (Chloride) 110 mls @ 110 mls/hr IVPB 1700 [facility] Last Admin: 06/01/17 16:19 Dose: 110 mls/hr Sodium Chloride (Sodium Chloride 0.45%) 1,000 mls @ 50 mls/hr IV .Q20H [facility] Stop: 06/02/17 21:17 Last Admin: 06/01/17 21:39 Dose: 50 mls/hr Insulin Detemir (Levemir) 15 units SC QPM [facility] Last Admin: 06/01/17 17:11 Dose: 15 u Insulin Detemir (Levemir) 25 units SC DAILY [facility] Last Admin: 06/02/17 10:01 Dose: 25 units Insulin Human Regular (Humulin R) 0 units SC ACHS [facility] PRN Reason: Protocol Last Admin: 06/02/17 06:32 Dose: Not Given Isosorbide Mononitrate (Imdur) 60 mg PO DAILY [facility] Last Admin: 06/02/17 09:59 Dose: 60 mg Mirtazapine (Remeron) 7.5 mg PO [facility] Last Admin: 06/01/17 21:38 Dose: 7.5 mg Senna/Docusate Sodium (Senokot S 50 Mg-8.6 Mg) 2 tab PO HS [facility] Last Admin: 06/01/17 21:38 Dose: Not Given - Labs Labs: 06/02/17 05:55 06/02/17 05:55 PT 13.1 Seconds (9.8-13.1) 05/20/17 06:00 INR 1.2 (0.9-1.2) 05/20/17 06:00 APTT 34.8 Seconds (25.6-37.1) 05/20/17 06:00 - Constitutional Appears: Well, Non-toxic, No Acute Distress - Extremities Exam Additional comments: Vasc: DP/PT pulses palpable 1/4 b/l. CFT< 3 seconds to digits 1-5 b/l. Temperature gradient warm to warm from proximal to distal. Neuro: Epicritic and protective sensation grossly intact b/l Derm: Ulceration measuring approximately 1.4 cm x 1.5 cm x .2 cm with dry necrotic base and hyperkeratotic rim noted. No drainage, purulence, or malodor noted. No streaking or erythema noted. No tunneling. Undermining is noted to inferior margin. Probe to bone. Ortho: Tenderness reports to left lower extremity at surgical site. No tenderness to palpation of left medial 1st met head - Neurological Exam Neurological Exam: Alert, Awake - Psychiatric Exam Psychiatric exam: Normal Affect, Normal Mood Assessment and Plan - Assessment and Plan (Free Text) Assessment: 66 year old female PMHx DM2, PVD, HTN, HLD, GA, stroke with L 1st metatarsal ulceration secondary to DM and L 1st metatarsal head and tibial sesamoid osteomyelitis POD #6 L leg revascularization. Plan: Patient seen and evaluated at bedside with attending Dr. Reynoso Charts, labs and vitals reviewed (afebrile, WBC=10.0 (10.5 on 06/02/17) Podiatry aware patient has NAI, CHF, and anemia Once patient is stabilized, discussions of right foot OM operation will be made Dressing changed; Ulcer dressed with xeroform, 4x4, kerlix Continue abx per ID Continue pain management per medicine Podiatry will continue to follow while in house
--- NOTE | 2017-06-02 11:08 | CP.PCM.PN ---
Subjective - Date & Time of Evaluation Date of Evaluation: 06/02/17 Time of Evaluation: 11:08 Objective - Vital Signs/Intake and Output Vital Signs (last 24 hours): Temp Pulse Resp BP Pulse Ox 98.0 F 90 18 101/65 99 06/02/17 08:00 06/02/17 09:57 06/02/17 08:00 06/02/17 09:57 06/02/17 08:00 Intake and Output: 06/02/17 06/02/17 06:59 18:59 Intake Total 550 Output Total 650 Balance -100 - Medications Medications: Current Medications Acetaminophen (Tylenol 325mg Tab) 650 mg PO Q6 PRN PRN Reason: Pain, moderate (4-7) Last Admin: 06/02/17 01:50 Dose: 650 mg Acetaminophen (Tylenol 325mg Tab) 650 mg PO Q6 PRN PRN Reason: Headache Aspirin (Aspirin Chewable) 81 mg PO DAILY [facility] Last Admin: 06/02/17 09:57 Dose: 81 mg Atorvastatin Calcium (Lipitor) 40 mg PO DAILY [facility] Last Admin: 06/02/17 09:55 Dose: 40 mg Carvedilol (Coreg) 6.25 mg PO Q12 [facility] Last Admin: 06/02/17 09:57 Dose: 6.25 mg Clopidogrel Bisulfate (Plavix) 75 mg PO DAILY [facility] Last Admin: 06/02/17 09:53 Dose: 75 mg Dextrose (Dextrose 50% Inj) 0 ml IV STAT PRN; Protocol PRN Reason: Hyglycemia Protocol Dextrose (Glutose 15) 0 gm PO ONCE PRN; Protocol PRN Reason: Hypoglycemia Protocol Glucagon (Glucagen Diagnostic Kit) 0 mg IM STAT PRN; Protocol PRN Reason: Hypoglycemia Protocol Heparin Sodium (Porcine) (Heparin) 5,000 units SC Q8 [facility] PRN Reason: Protocol Last Admin: 06/02/17 09:58 Dose: 5,000 units Hydralazine HCl (Apresoline) 25 mg PO TID [facility] Last Admin: 06/02/17 09:56 Dose: 25 mg Piperacillin Sod/Tazobactam (Sod 2.25 gm/ Sodium Chloride) 100 mls @ 100 mls/ hr IVPB Q8H [facility] Last Admin: 06/02/17 10:09 Dose: 100 mls/hr Iron Sucrose 200 mg/ Sodium (Chloride) 110 mls @ 110 mls/hr IVPB 1700 [facility] Last Admin: 06/01/17 16:19 Dose: 110 mls/hr Sodium Chloride (Sodium Chloride 0.45%) 1,000 mls @ 50 mls/hr IV .Q20H [facility] Stop: 06/02/17 21:17 Last Admin: 06/01/17 21:39 Dose: 50 mls/hr Insulin Detemir (Levemir) 15 units SC QPM [facility] Last Admin: 06/01/17 17:11 Dose: 15 u Insulin Detemir (Levemir) 25 units SC DAILY [facility] Last Admin: 06/02/17 10:01 Dose: 25 units Insulin Human Regular (Humulin R) 0 units SC ACHS [facility] PRN Reason: Protocol Last Admin: 06/02/17 06:32 Dose: Not Given Isosorbide Mononitrate (Imdur) 60 mg PO DAILY [facility] Last Admin: 06/02/17 09:59 Dose: 60 mg Mirtazapine (Remeron) 7.5 mg PO HS [facility] Last Admin: 06/01/17 21:38 Dose: 7.5 mg Senna/Docusate Sodium (Senokot S 50 Mg-8.6 Mg) 2 tab PO HS [facility] Last Admin: 06/01/17 21:38 Dose: Not Given - Labs Labs: 06/02/17 05:55 06/02/17 05:55 PT 13.1 Seconds (9.8-13.1) 05/20/17 06:00 INR 1.2 (0.9-1.2) 05/20/17 06:00 APTT 34.8 Seconds (25.6-37.1) 05/20/17 06:00 Assessment and Plan (1) Cardiomyopathy, dilated Status: Acute (2) Systolic and diastolic CHF, acute on chronic Status: Acute (3) Volume overload Status: Acute (4) PVD (peripheral vascular disease) Status: Acute (5) SOB (shortness of breath) Status: Acute (6) Hx of myocardial infarction Status: Chronic (7) History of CVA (cerebrovascular accident) Status: Chronic (8) HTN (hypertension) Status: Chronic (9) Dyslipidemia Status: Chronic (10) History of tobacco abuse Status: Chronic (11) Osteomyelitis Status: Acute (12) Diabetic foot ulcer Status: Acute (13) Uncontrolled diabetes mellitus Status: Acute
--- NOTE | 2017-06-02 12:48 | CP.PCM.PN ---
Subjective - Date & Time of Evaluation Date of Evaluation: 06/02/17 Time of Evaluation: 07:00 - Subjective Subjective: events noted s/p NAI/ CHF s/p revascularization once stable will go for OR / amputation IV rx to cont post op for at least 7 days no positive cultures thus far Objective - Vital Signs/Intake and Output Vital Signs (last 24 hours): Temp Pulse Resp BP Pulse Ox 98.0 F 81 18 102/59 L 97 06/02/17 12:00 06/02/17 12:00 06/02/17 12:00 06/02/17 12:00 06/02/17 12:00 Intake and Output: 06/02/17 06/02/17 06:59 18:59 Intake Total 550 Output Total 650 Balance -100 - Medications Medications: Current Medications Acetaminophen (Tylenol 325mg Tab) 650 mg PO Q6 PRN PRN Reason: Pain, moderate (4-7) Last Admin: 06/02/17 01:50 Dose: 650 mg Acetaminophen (Tylenol 325mg Tab) 650 mg PO Q6 PRN PRN Reason: Headache Aspirin (Aspirin Chewable) 81 mg PO DAILY [facility] Last Admin: 06/02/17 09:57 Dose: 81 mg Atorvastatin Calcium (Lipitor) 40 mg PO DAILY [facility] Last Admin: 06/02/17 09:55 Dose: 40 mg Carvedilol (Coreg) 6.25 mg PO Q12 [facility] Last Admin: 06/02/17 09:57 Dose: 6.25 mg Clopidogrel Bisulfate (Plavix) 75 mg PO DAILY [facility] Last Admin: 06/02/17 09:53 Dose: 75 mg Dextrose (Dextrose 50% Inj) 0 ml IV STAT PRN; Protocol PRN Reason: Hyglycemia Protocol Dextrose (Glutose 15) 0 gm PO ONCE PRN; Protocol PRN Reason: Hypoglycemia Protocol Glucagon (Glucagen Diagnostic Kit) 0 mg IM STAT PRN; Protocol PRN Reason: Hypoglycemia Protocol Heparin Sodium (Porcine) (Heparin) 5,000 units SC Q8 [facility] PRN Reason: Protocol Last Admin: 06/02/17 09:58 Dose: 5,000 units Hydralazine HCl (Apresoline) 25 mg PO TID [facility] Last Admin: 06/02/17 09:56 Dose: 25 mg Piperacillin Sod/Tazobactam (Sod 2.25 gm/ Sodium Chloride) 100 mls @ 100 mls/ hr IVPB Q8H [facility] Last Admin: 06/02/17 10:09 Dose: 100 mls/hr Iron Sucrose 200 mg/ Sodium (Chloride) 110 mls @ 110 mls/hr IVPB 1700 [facility] Last Admin: 06/01/17 16:19 Dose: 110 mls/hr Sodium Chloride (Sodium Chloride 0.45%) 1,000 mls @ 50 mls/hr IV .Q20H [facility] Stop: 06/02/17 21:17 Last Admin: 06/01/17 21:39 Dose: 50 mls/hr Insulin Detemir (Levemir) 15 units SC QPM [facility] Last Admin: 06/01/17 17:11 Dose: 15 u Insulin Detemir (Levemir) 25 units SC DAILY [facility] Last Admin: 06/02/17 10:01 Dose: 25 units Insulin Human Regular (Humulin R) 0 units SC ACHS [facility] PRN Reason: Protocol Last Admin: 06/02/17 06:32 Dose: Not Given Isosorbide Mononitrate (Imdur) 60 mg PO DAILY [facility] Last Admin: 06/02/17 09:59 Dose: 60 mg Mirtazapine (Remeron) 7.5 mg PO HS [facility] Last Admin: 06/01/17 21:38 Dose: 7.5 mg Senna/Docusate Sodium (Senokot S 50 Mg-8.6 Mg) 2 tab PO HS [facility] Last Admin: 06/01/17 21:38 Dose: Not Given - Labs Labs: 06/02/17 05:55 06/02/17 05:55 PT 13.1 Seconds (9.8-13.1) 05/20/17 06:00 INR 1.2 (0.9-1.2) 05/20/17 06:00 APTT 34.8 Seconds (25.6-37.1) 05/20/17 06:00 Assessment and Plan (1) Osteomyelitis Status: Acute (2) Osteomyelitis Status: Acute (3) Diabetic foot ulcer Status: Acute
[2017-06-02] MEDS ORDERED: Chlorhexidine Gluconate 1 APPL/PKT TP ONE (15:19)
[2017-06-02] MEDS: Sodium Chloride 0.45% 1,000 ML IV SCH (18:36)
--- NOTE | 2017-06-02 20:01 | CP.PCM.PN ---
Subjective - Date & Time of Evaluation Date of Evaluation: 06/02/17 Time of Evaluation: 12:30 - Subjective Subjective: Patient reports very mild shortness of breath overnight; otherwise tolerating diet, no nausea; Objective - Vital Signs/Intake and Output Vital Signs (last 24 hours): Temp Pulse Resp BP Pulse Ox 99.3 F 99 H 18 93/58 L 98 06/02/17 19:32 06/02/17 19:32 06/02/17 19:32 06/02/17 19:32 06/02/17 19:32 Intake and Output: 06/02/17 06/03/17 18:59 06:59 Intake Total 1230 Output Total 600 Balance 630 - Medications Medications: Current Medications Acetaminophen (Tylenol 325mg Tab) 650 mg PO Q6 PRN PRN Reason: Pain, moderate (4-7) Last Admin: 06/02/17 01:50 Dose: 650 mg Acetaminophen (Tylenol 325mg Tab) 650 mg PO Q6 PRN PRN Reason: Headache Aspirin (Aspirin Chewable) 81 mg PO DAILY [facility] Last Admin: 06/02/17 09:57 Dose: 81 mg Atorvastatin Calcium (Lipitor) 40 mg PO DAILY [facility] Last Admin: 06/02/17 09:55 Dose: 40 mg Carvedilol (Coreg) 6.25 mg PO Q12 [facility] Last Admin: 06/02/17 09:57 Dose: 6.25 mg Clopidogrel Bisulfate (Plavix) 75 mg PO DAILY [facility] Last Admin: 06/02/17 09:53 Dose: 75 mg Dextrose (Dextrose 50% Inj) 0 ml IV STAT PRN; Protocol PRN Reason: Hyglycemia Protocol Dextrose (Glutose 15) 0 gm PO ONCE PRN; Protocol PRN Reason: Hypoglycemia Protocol Glucagon (Glucagen Diagnostic Kit) 0 mg IM STAT PRN; Protocol PRN Reason: Hypoglycemia Protocol Heparin Sodium (Porcine) (Heparin) 5,000 units SC Q8 [facility] PRN Reason: Protocol Last Admin: 06/02/17 18:28 Dose: 5,000 units Hydralazine HCl (Apresoline) 25 mg PO TID [facility] Last Admin: 06/02/17 18:27 Dose: Not Given Piperacillin Sod/Tazobactam (Sod 2.25 gm/ Sodium Chloride) 100 mls @ 100 mls/ hr IVPB Q8H [facility] Last Admin: 06/02/17 19:14 Dose: 100 mls/hr Iron Sucrose 200 mg/ Sodium (Chloride) 110 mls @ 110 mls/hr IVPB 1700 [facility] Last Admin: 06/02/17 18:34 Dose: 110 mls/hr Sodium Chloride (Sodium Chloride 0.45%) 1,000 mls @ 50 mls/hr IV .Q20H [facility] Stop: 06/02/17 21:17 Last Admin: 06/02/17 18:36 Dose: 50 mls/hr Insulin Detemir (Levemir) 15 units SC QPM [facility] Last Admin: 06/02/17 18:31 Dose: 15 u Insulin Detemir (Levemir) 25 units SC DAILY [facility] Last Admin: 06/02/17 10:01 Dose: 25 units Insulin Human Regular (Humulin R) 0 units SC ACHS [facility] PRN Reason: Protocol Last Admin: 06/02/17 18:30 Dose: 3 unit Isosorbide Mononitrate (Imdur) 60 mg PO DAILY [facility] Last Admin: 06/02/17 09:59 Dose: 60 mg Mirtazapine (Remeron) 7.5 mg PO HS [facility] Last Admin: 06/01/17 21:38 Dose: 7.5 mg Senna/Docusate Sodium (Senokot S 50 Mg-8.6 Mg) 2 tab PO [facility] Last Admin: 06/01/17 21:38 Dose: Not Given - Labs Labs: 06/02/17 05:55 06/02/17 05:55 PT 13.1 Seconds (9.8-13.1) 05/20/17 06:00 INR 1.2 (0.9-1.2) 05/20/17 06:00 APTT 34.8 Seconds (25.6-37.1) 05/20/17 06:00 - Constitutional Appears: Well, No Acute Distress - Head Exam Head Exam: NORMAL INSPECTION - Eye Exam Eye Exam: Normal appearance. absent: Scleral icterus - ENT Exam ENT Exam: Mucous Membranes Moist - Respiratory Exam Respiratory Exam: Clear to Ausculation Bilateral, NORMAL BREATHING PATTERN. absent: Rales, Rhonchi, Wheezes, Respiratory Distress - Cardiovascular Exam Cardiovascular Exam: RRR, +S1, +S2 - GI/Abdominal Exam GI & Abdominal Exam: Soft. absent: Distended, Tenderness - Exam Additional comments: zelaya in place; - Extremities Exam Extremities Exam: Normal Capillary Refill Additional comments: Mild lower leg edema L > R - Neurological Exam Neurological Exam: Alert, Awake - Psychiatric Exam Psychiatric exam: Normal Affect, Normal Mood - Skin Skin Exam: Normal Color, Warm. absent: Cyanosis Assessment and Plan (1) Acute renal failure Assessment & Plan: Resolving; in post-ATN diuresis phase; UO estimated to be ~100 cc/hr; placed on 1/2NS at 50 cc/hr last night to avoid volume depletion as BP low/normal; continue same; Status: Acute (2) Cardiomyopathy, dilated Assessment & Plan: Acute decompensated systolic CHF, improved with diuresis; diuretics stopped due to post-ATN auto-diuresis; f/u with cardio recs for CHF meds; Status: Acute (3) Osteomyelitis Assessment & Plan: On zoysn 2.25 g q8h; will increase frequency to q6h in setting of improving renal function and will need further dose increase soon; Status: Acute (4) PVD (peripheral vascular disease) Assessment & Plan: Renovascular disesae as well; continue statin nursing home; Status: Acute (5) HTN (hypertension) Assessment & Plan: On CHF meds, BP at lower end of normal; giving gentle IVF to avoid volume depletion; Status: Chronic (6) CKD (chronic kidney disease) Assessment & Plan: Likely due to diabetic nephropathy; will need further outpatient workup once NAI resolved; Status: Chronic
[2017-06-02] MEDS: Docusate-Senna 50 mg-8.6 mg Tab PO SCH (21:26)
[2017-06-03 06:41] LABS: HEMATOCRIT 21.4 % (34.0-47.0); MEAN CELL VOLUME 83.3 fl (81.0-99.0); MEAN CORPUSCULAR HEMOGLOBIN 27.3 pg (27.0-31.0); MEAN CORPUSCULAR HGB CONC 32.7 g/dL (33.0-37.0); RED CELL DISTRIBUTION WIDTH 17.6 % (11.5-14.5); WHITE BLOOD COUNT 10.7 K/uL (4.8-10.8)
[2017-06-03] MEDS: Insulin Regular 100 units/ml SC SCH ×4 (06:41→21:50)
[2017-06-03 06:44] LABS: ALB/GLOB RATIO 0.9 (1.0-2.1); BILIRUBIN,TOTAL 0.4 mg/dl (0.2-1.3); CALCIUM 8.6 mg/dL (8.4-10.2); POTASSIUM 4.3 MMOL/L (3.6-5.0); TOTAL PROTEIN 5.7 G/DL (6.3-8.2)
[2017-06-03] MEDS: Insulin Detemir 100 Units/ml Inj SC SCH ×2 (09:07→18:07)
--- NOTE | 2017-06-03 09:58 | CP.PCM.PN ---
Subjective - Date & Time of Evaluation Date of Evaluation: 06/03/17 Time of Evaluation: 08:00 - Subjective Subjective: 66 year old female with PMHx of HTN, DM, TX, CVA, TX, PVD seen for left medial hallux ulceration and osteomyelitis of left hallux and tibial sesamoid 7 days s/ p revascularization of left leg. She is seen resting comfortably in bed, NAD, and AA0x3. No acute events overnight. She reports still having SOB but has improved. She reports tenderness to the left lower extremity; reports no pain at the site of ulceration. She denies n/v/cp/chills or f. Objective - Vital Signs/Intake and Output Vital Signs (last 24 hours): Temp Pulse Resp BP Pulse Ox 98.2 F 93 H 18 98/63 L 100 06/03/17 08:00 06/03/17 09:01 06/03/17 08:00 06/03/17 09:01 06/03/17 08:00 Intake and Output: 06/03/17 06/03/17 06:59 18:59 Intake Total 2000 Output Total 1400 Balance 600 - Medications Medications: Current Medications Acetaminophen (Tylenol 325mg Tab) 650 mg PO Q6 PRN PRN Reason: Pain, moderate (4-7) Last Admin: 06/02/17 01:50 Dose: 650 mg Acetaminophen (Tylenol 325mg Tab) 650 mg PO Q6 PRN PRN Reason: Headache Aspirin (Aspirin Chewable) 81 mg PO DAILY [facility] Last Admin: 06/03/17 09:01 Dose: 81 mg Atorvastatin Calcium (Lipitor) 40 mg PO DAILY [facility] Last Admin: 06/03/17 09:02 Dose: 40 mg Carvedilol (Coreg) 6.25 mg PO Q12 [facility] Last Admin: 06/03/17 09:01 Dose: Not Given Clopidogrel Bisulfate (Plavix) 75 mg PO DAILY [facility] Last Admin: 06/03/17 09:02 Dose: 75 mg Dextrose (Dextrose 50% Inj) 0 ml IV STAT PRN; Protocol PRN Reason: Hyglycemia Protocol Dextrose (Glutose 15) 0 gm PO ONCE PRN; Protocol PRN Reason: Hypoglycemia Protocol Glucagon (Glucagen Diagnostic Kit) 0 mg IM STAT PRN; Protocol PRN Reason: Hypoglycemia Protocol Heparin Sodium (Porcine) (Heparin) 5,000 units SC Q8 [facility] PRN Reason: Protocol Last Admin: 06/03/17 00:28 Dose: 5,000 units Hydralazine HCl (Apresoline) 25 mg PO TID [facility] Last Admin: 06/03/17 09:00 Dose: Not Given Iron Sucrose 200 mg/ Sodium (Chloride) 110 mls @ 110 mls/hr IVPB 1700 [facility] Last Admin: 06/02/17 18:34 Dose: 110 mls/hr Piperacillin Sod/Tazobactam (Sod 2.25 gm/ Sodium Chloride) 100 mls @ 100 mls/ hr IVPB Q6H [facility] Last Admin: 06/03/17 05:29 Dose: 100 mls/hr Insulin Detemir (Levemir) 15 units SC QPM [facility] Last Admin: 06/02/17 18:31 Dose: 15 u Insulin Detemir (Levemir) 25 units SC DAILY [facility] Last Admin: 06/03/17 09:07 Dose: 25 units Insulin Human Regular (Humulin R) 0 units SC ACHS [facility] PRN Reason: Protocol Last Admin: 06/03/17 06:41 Dose: Not Given Isosorbide Mononitrate (Imdur) 60 mg PO DAILY [facility] Last Admin: 06/03/17 09:02 Dose: Not Given Mirtazapine (Remeron) 7.5 mg PO HS [facility] Last Admin: 06/02/17 21:26 Dose: 7.5 mg Senna/Docusate Sodium (Senokot S 50 Mg-8.6 Mg) 2 tab PO HS [facility] Last Admin: 06/02/17 21:26 Dose: 2 tab - Labs Labs: 06/03/17 05:25 06/03/17 05:25 PT 13.1 Seconds (9.8-13.1) 05/20/17 06:00 INR 1.2 (0.9-1.2) 05/20/17 06:00 APTT 34.8 Seconds (25.6-37.1) 05/20/17 06:00 - Constitutional Appears: Well, Non-toxic, No Acute Distress - Extremities Exam Additional comments: LE focused exam Vasc: DP/PT pulses palpable 1/4 b/l. CFT< 3 seconds to digits 1-5 b/l. Temperature gradient warm to warm from proximal to distal. Neuro: Epicritic and protective sensation grossly intact b/l Derm: Ulceration measuring approximately 1.4 cm x 1.5 cm x .2 cm with dry necrotic base and hyperkeratotic rim noted. No drainage, purulence, or malodor noted. No streaking or erythema noted. No tunneling. Undermining is noted to inferior margin. Probe to bone. Ortho: Tenderness reports to left lower extremity at surgical site. No tenderness to palpation of left medial 1st met head - Neurological Exam Neurological Exam: Awake, Normal Gait, Oriented x3 - Psychiatric Exam Psychiatric exam: Normal Affect, Normal Mood Assessment and Plan - Assessment and Plan (Free Text) Assessment: 66 year old female with L 1st metatarsal ulceration secondary to DM and L 1st metatarsal head and tibial sesamoid osteomyelitis POD #7 L leg revascularization. Plan: Patient seen and evaluated at bedside with attending Dr. Reynoso Charts, labs and vitals reviewed (afebrile, WBC=10.7 on 06/03/17) Podiatry aware patient has NAI and CHF, improving Once patient is stabilized, discussions of right foot OM operation will be made Dressing changed; Ulcer dressed with xeroform, 4x4, cling Continue abx per ID Continue pain management per medicine Podiatry will continue to follow while in house
--- NOTE | 2017-06-03 14:12 | CP.PCM.PN ---
Subjective - Date & Time of Evaluation Date of Evaluation: 06/03/17 Time of Evaluation: 06:30 - Subjective Subjective: No acute overnight events. Pt seen and evaluated at the bedside. Complains of feeling weak and pain in her left lower leg. States that SOB is slightly improved from yesterady. Denies CP, Cough, N/V/D, motor or sensory deficits, or calf pain. Objective - Vital Signs/Intake and Output Vital Signs (last 24 hours): Temp Pulse Resp BP Pulse Ox 98.2 F 86 18 102/65 98 06/03/17 13:00 06/03/17 13:00 06/03/17 13:00 06/03/17 13:00 06/03/17 13:00 Intake and Output: 06/03/17 06/03/17 06:59 18:59 Intake Total 2000 Output Total 1400 Balance 600 - Medications Medications: Current Medications Acetaminophen (Tylenol 325mg Tab) 650 mg PO Q6 PRN PRN Reason: Pain, moderate (4-7) Last Admin: 06/02/17 01:50 Dose: 650 mg Acetaminophen (Tylenol 325mg Tab) 650 mg PO Q6 PRN PRN Reason: Headache Aspirin (Aspirin Chewable) 81 mg PO DAILY [facility] Last Admin: 06/03/17 09:01 Dose: 81 mg Atorvastatin Calcium (Lipitor) 40 mg PO DAILY [facility] Last Admin: 06/03/17 09:02 Dose: 40 mg Carvedilol (Coreg) 6.25 mg PO Q12 [facility] Last Admin: 06/03/17 09:01 Dose: Not Given Clopidogrel Bisulfate (Plavix) 75 mg PO DAILY [facility] Last Admin: 06/03/17 09:02 Dose: 75 mg Dextrose (Dextrose 50% Inj) 0 ml IV STAT PRN; Protocol PRN Reason: Hyglycemia Protocol Dextrose (Glutose 15) 0 gm PO ONCE PRN; Protocol PRN Reason: Hypoglycemia Protocol Glucagon (Glucagen Diagnostic Kit) 0 mg IM STAT PRN; Protocol PRN Reason: Hypoglycemia Protocol Heparin Sodium (Porcine) (Heparin) 5,000 units SC Q8 [facility] PRN Reason: Protocol Last Admin: 06/03/17 09:30 Dose: 5,000 units Hydralazine HCl (Apresoline) 25 mg PO TID [facility] Last Admin: 06/03/17 09:00 Dose: Not Given Iron Sucrose 200 mg/ Sodium (Chloride) 110 mls @ 110 mls/hr IVPB 1700 [facility] Last Admin: 06/02/17 18:34 Dose: 110 mls/hr Piperacillin Sod/Tazobactam (Sod 2.25 gm/ Sodium Chloride) 100 mls @ 100 mls/ hr IVPB Q6H [facility] Last Admin: 06/03/17 12:17 Dose: 100 mls/hr Insulin Detemir (Levemir) 15 units SC QPM [facility] Last Admin: 06/02/17 18:31 Dose: 15 u Insulin Detemir (Levemir) 25 units SC DAILY [facility] Last Admin: 06/03/17 09:07 Dose: 25 units Insulin Human Regular (Humulin R) 0 units SC ACHS [facility] PRN Reason: Protocol Last Admin: 06/03/17 06:41 Dose: Not Given Isosorbide Mononitrate (Imdur) 60 mg PO DAILY [facility] Last Admin: 06/03/17 09:02 Dose: Not Given Lidocaine (Lidoderm) 2 ea TD DAILY [facility] Mirtazapine (Remeron) 7.5 mg PO HS [facility] Last Admin: 06/02/17 21:26 Dose: 7.5 mg Senna/Docusate Sodium (Senokot S 50 Mg-8.6 Mg) 2 tab PO HS [facility] Last Admin: 06/02/17 21:26 Dose: 2 tab - Labs Labs: 06/03/17 05:25 06/03/17 05:25 PT 13.1 Seconds (9.8-13.1) 05/20/17 06:00 INR 1.2 (0.9-1.2) 05/20/17 06:00 APTT 34.8 Seconds (25.6-37.1) 05/20/17 06:00 - Respiratory Exam Respiratory Exam: Rales. absent: Accessory Muscle Use, Wheezes Additional comments: Mild bibasilar rales, no wheezing, not in any respiratory distress - Cardiovascular Exam Cardiovascular Exam: REGULAR RHYTHM, +S1, +S2. absent: Murmur - GI/Abdominal Exam GI & Abdominal Exam: Soft. absent: Tenderness - Rectal Exam Rectal Exam: NORMAL INSPECTION Additional comments: During FOBT, no hemorrhoids noted - Extremities Exam Extremities Exam: absent: Calf Tenderness, Pedal Edema Additional comments: Left lower extremity tender to palpation near exision site. No swelling, redness , breaks in skin, or discharge - Neurological Exam Neurological Exam: Alert, Awake, Oriented x3. absent: Motor Sensory Deficit - Psychiatric Exam Psychiatric exam: Normal Mood Assessment and Plan (1) Osteomyelitis Status: Acute (2) PVD (peripheral vascular disease) Status: Acute (3) Acute kidney injury Status: Acute - Assessment and Plan (Free Text) Assessment: 66 y.o. female with hx of Peripheral vascular disease admitted for osteomyelitis POD #2 left lower leg revascularization #Acute decompensated Systolic Heart Failure- EF 20%, Acute -Upon returning from revascular procedure in [place], pt was found to be fluid overloaded. No respiratory distress and no hypoxia. Repeat Cxray (05-29) was found to show mild-moderate pulmonary congestion, bilateral pleural effusions. -Cardiology consulted- As per Dr. Russo, NAI is likely secondary to fluid overload; Echo ordered to evaluate LV diameter, PAP, and IVC. -SOB improving, no LE edema, Vitals wnl, afebrile -(06/01)Troponin I= 0.1380 (Cardio informed) -Latest Pro BNP 97802 (07/02) -C/W Coreg 6.25mg PO, Hydralazine 25mg, and Isosorbid Mononitrate 60mg, Asp 81mg PO daily, Plavix 75mg PO daily -Monitor I/O's -Fluid and salt restrictions -Heart healthy diet -Plan: pt's vital signs, I/O, SOB and lung exam. Echo to evaluate LV diameter as per Dr. Russo. #Acute Kidney Injury, Acute -Crea 2.5 today (improving), electrolytes stable -Likely due to reduced renal perfusion secondary to low cardiac output vs contrast-induced nephropathy in the setting of DM and Renal vascular disease -Renal US-negative for obstructive pathology, distended bladder -Nephrology consult appreciated -Dalal put in to quantify urine output; Strict I/O's -Hold Misha inhibitor and nephrotoxic agents (contrast) -Mg nml, Phos=4.8 -Renally Dose Zosyn -Renal Diet -Plan: NAI is improving, continue monitoring Crea. Avoid all nephrotoxic agents. Will manage as per nephrology's recommendations. # Anemia, Acute -Pt complains of feeling weak. -H/H: 7.0/21.4 -Ferritin wnl, TIBC wnl - Iron 24( L), Reticulocyte: 3.4 (H) -B12 normal, Folate nml -Hemo/Onc consulted- Dr. Snow, Pt's borderline normocytic anemia worsened likely due to multiple phlebotomies vs recent vascular procedure. Consider GI consults when stable for endoscopic work up as pt has never had colonoscopy before. Started on Iron sucrose, IVPB as per heme/onc -FOBT negative x2 -Pt was transfused 1 unit of RBC's due to low Hg. Will continue to monitor H/H #Osteomyelitis, Acute -Afebrile, No leukocytosis - Recommendations as per Podiatry-will likely need surgery after revascularization. Pt can be weight bearing as tolerated to the heels in surgical shoe of affected foot which will act as an off loading device so she doesn't put too much pressure in the forefoot. -Xray Foot: Study reveals what appears to represent some localized irregularity along the superomedial border of the head of first metatarsal. Also some irregularity of the overlying soft tissues and possibly small amount of subcutaneous air. Findings suggest osteomyelitis in this location. -C/w Zosyn 3.375gm Q12, Day 11 -Tyelenol 650mg prn, Lidocaine pathes x2 daily. Pt tolerating pain well -Social Work Referral: Pt has concerns about her living arrangements after her surgery (likely a below the knee amputation). She lives in a 5 floor walk up with . Plan:Speak with Nephro and Cardio about when pt can possibly be ready for the OR ; Will continue ABX after OR for 7 days as per ID 3) Hypokalemia RESOLVED -Pt denies constipation,muscle cramps -Likely secondary to diuretic -Given KCl 40mg once -Continue to monitor # Peripheral Vascular Disease- POD #2 Left lower leg revascularization - Revascularization complete at [place] -Monitor pedal pulses daily -PT/OT # Diabetes Mellitus Type 2 -POCG have been in the high 200's. Daily levemir increased to 25units. Continue to monitor -Levemir 25units daily and Levemir 15 -Insulin coverage scale -A1C 7.3 -Diabetic diet -Hypoglycemia protocol in place 8)Hypertension -Currently normotensive, controlled -Metoprolol 25 mg Q6 -Coreg 6.25mg Q12 -Misha inhibitor stopped for now 9)Hyperlipidemia -Continue home meds: atorvastatin 10)DVT prophylaxis -Heparin 5000 units SQ
[2017-06-03] MEDS: Lidocaine 5% Patch TD SCH (16:43)
--- NOTE | 2017-06-03 19:15 | CP.PCM.PN ---
Objective - Vital Signs/Intake and Output Vital Signs (last 24 hours): Temp Pulse Resp BP Pulse Ox 97.2 F L 94 H 16 119/75 100 06/03/17 17:00 06/03/17 17:22 06/03/17 17:00 06/03/17 17:22 06/03/17 17:00 Intake and Output: 06/03/17 06/04/17 18:59 06:59 Intake Total 840 Output Total 540 Balance 300 - Medications Medications: Current Medications Acetaminophen (Tylenol 325mg Tab) 650 mg PO Q6 PRN PRN Reason: Pain, moderate (4-7) Last Admin: 06/02/17 01:50 Dose: 650 mg Acetaminophen (Tylenol 325mg Tab) 650 mg PO Q6 PRN PRN Reason: Headache Aspirin (Aspirin Chewable) 81 mg PO DAILY [facility] Last Admin: 06/03/17 09:01 Dose: 81 mg Atorvastatin Calcium (Lipitor) 40 mg PO DAILY [facility] Last Admin: 06/03/17 09:02 Dose: 40 mg Carvedilol (Coreg) 6.25 mg PO Q12 [facility] Last Admin: 06/03/17 09:01 Dose: Not Given Clopidogrel Bisulfate (Plavix) 75 mg PO DAILY [facility] Last Admin: 06/03/17 09:02 Dose: 75 mg Heparin Sodium (Porcine) (Heparin) 5,000 units SC Q8 [facility] PRN Reason: Protocol Last Admin: 06/03/17 16:45 Dose: 5,000 units Hydralazine HCl (Apresoline) 25 mg PO TID [facility] Last Admin: 06/03/17 17:22 Dose: 25 mg Iron Sucrose 200 mg/ Sodium (Chloride) 110 mls @ 110 mls/hr IVPB 1700 [facility] Last Admin: 06/03/17 16:37 Dose: 110 mls/hr Piperacillin Sod/Tazobactam (Sod 2.25 gm/ Sodium Chloride) 100 mls @ 100 mls/ hr IVPB Q6H [facility] Last Admin: 06/03/17 18:06 Dose: 100 mls/hr Insulin Detemir (Levemir) 15 units SC QPM [facility] Last Admin: 06/03/17 18:07 Dose: 15 u Insulin Detemir (Levemir) 25 units SC DAILY [facility] Last Admin: 06/03/17 09:07 Dose: 25 units Insulin Human Regular (Humulin R) 0 units SC ACHS [facility] PRN Reason: Protocol Last Admin: 06/03/17 17:26 Dose: 4 unit Isosorbide Mononitrate (Imdur) 60 mg PO DAILY [facility] Last Admin: 06/03/17 09:02 Dose: Not Given Lidocaine (Lidoderm) 2 ea TD DAILY [facility] Last Admin: 06/03/17 16:43 Dose: 2 ea Mirtazapine (Remeron) 7.5 mg PO HS [facility] Last Admin: 06/02/17 21:26 Dose: 7.5 mg Senna/Docusate Sodium (Senokot S 50 Mg-8.6 Mg) 2 tab PO HS [facility] Last Admin: 06/02/17 21:26 Dose: 2 tab - Labs Labs: 06/03/17 05:25 06/03/17 05:25 PT 13.1 Seconds (9.8-13.1) 05/20/17 06:00 INR 1.2 (0.9-1.2) 05/20/17 06:00 APTT 34.8 Seconds (25.6-37.1) 05/20/17 06:00 Assessment and Plan (1) Acute renal failure Status: Acute (2) Cardiomyopathy, dilated Status: Acute (3) Osteomyelitis Status: Acute (4) PVD (peripheral vascular disease) Status: Acute (5) HTN (hypertension) Status: Chronic (6) CKD (chronic kidney disease) Status: Chronic
--- NOTE | 2017-06-03 19:21 | CP.PCM.PN ---
Subjective - Date & Time of Evaluation Date of Evaluation: 06/03/17 Time of Evaluation: 19:20 Objective - Vital Signs/Intake and Output Vital Signs (last 24 hours): Temp Pulse Resp BP Pulse Ox 97.2 F L 94 H 16 119/75 100 06/03/17 17:00 06/03/17 17:22 06/03/17 17:00 06/03/17 17:22 06/03/17 17:00 Intake and Output: 06/03/17 06/04/17 18:59 06:59 Intake Total 840 Output Total 540 Balance 300 - Medications Medications: Current Medications Acetaminophen (Tylenol 325mg Tab) 650 mg PO Q6 PRN PRN Reason: Pain, moderate (4-7) Last Admin: 06/02/17 01:50 Dose: 650 mg Acetaminophen (Tylenol 325mg Tab) 650 mg PO Q6 PRN PRN Reason: Headache Aspirin (Aspirin Chewable) 81 mg PO DAILY [facility] Last Admin: 06/03/17 09:01 Dose: 81 mg Atorvastatin Calcium (Lipitor) 40 mg PO DAILY [facility] Last Admin: 06/03/17 09:02 Dose: 40 mg Carvedilol (Coreg) 6.25 mg PO Q12 [facility] Last Admin: 06/03/17 09:01 Dose: Not Given Clopidogrel Bisulfate (Plavix) 75 mg PO DAILY [facility] Last Admin: 06/03/17 09:02 Dose: 75 mg Heparin Sodium (Porcine) (Heparin) 5,000 units SC Q8 [facility] PRN Reason: Protocol Last Admin: 06/03/17 16:45 Dose: 5,000 units Hydralazine HCl (Apresoline) 25 mg PO TID [facility] Last Admin: 06/03/17 17:22 Dose: 25 mg Iron Sucrose 200 mg/ Sodium (Chloride) 110 mls @ 110 mls/hr IVPB 1700 [facility] Last Admin: 06/03/17 16:37 Dose: 110 mls/hr Piperacillin Sod/Tazobactam (Sod 2.25 gm/ Sodium Chloride) 100 mls @ 100 mls/ hr IVPB Q6H [facility] Last Admin: 06/03/17 18:06 Dose: 100 mls/hr Insulin Detemir (Levemir) 15 units SC QPM [facility] Last Admin: 06/03/17 18:07 Dose: 15 u Insulin Detemir (Levemir) 25 units SC DAILY [facility] Last Admin: 06/03/17 09:07 Dose: 25 units Insulin Human Regular (Humulin R) 0 units SC ACHS [facility] PRN Reason: Protocol Last Admin: 06/03/17 17:26 Dose: 4 unit Isosorbide Mononitrate (Imdur) 60 mg PO DAILY [facility] Last Admin: 06/03/17 09:02 Dose: Not Given Lidocaine (Lidoderm) 2 ea TD DAILY [facility] Last Admin: 06/03/17 16:43 Dose: 2 ea Mirtazapine (Remeron) 7.5 mg PO HS [facility] Last Admin: 06/02/17 21:26 Dose: 7.5 mg Senna/Docusate Sodium (Senokot S 50 Mg-8.6 Mg) 2 tab PO HS [facility] Last Admin: 06/02/17 21:26 Dose: 2 tab - Labs Labs: 06/03/17 05:25 06/03/17 05:25 PT 13.1 Seconds (9.8-13.1) 05/20/17 06:00 INR 1.2 (0.9-1.2) 05/20/17 06:00 APTT 34.8 Seconds (25.6-37.1) 05/20/17 06:00 Assessment and Plan (1) Cardiomyopathy, dilated Status: Acute (2) Systolic and diastolic CHF, acute on chronic Status: Acute (3) Volume overload Status: Acute (4) PVD (peripheral vascular disease) Status: Acute (5) SOB (shortness of breath) Status: Acute (6) Hx of myocardial infarction Status: Chronic (7) History of CVA (cerebrovascular accident) Status: Chronic (8) HTN (hypertension) Status: Chronic (9) Dyslipidemia Status: Chronic (10) History of tobacco abuse Status: Chronic (11) Osteomyelitis Status: Acute (12) Diabetic foot ulcer Status: Acute (13) Uncontrolled diabetes mellitus Status: Acute
[2017-06-03] MEDS: Docusate-Senna 50 mg-8.6 mg Tab PO SCH (21:49)
[2017-06-04 06:19] LABS: MEAN CELL VOLUME 83.8 fl (81.0-99.0); MEAN CORPUSCULAR HEMOGLOBIN 26.8 pg (27.0-31.0); RED CELL DISTRIBUTION WIDTH 16.8 % (11.5-14.5); WHITE BLOOD COUNT 11.9 K/uL (4.8-10.8)
[2017-06-04 06:33] LABS: ALB/GLOB RATIO 0.9 (1.0-2.1); BILIRUBIN,TOTAL 0.7 mg/dl (0.2-1.3); CALCIUM 9.1 mg/dL (8.4-10.2); POTASSIUM 3.6 MMOL/L (3.6-5.0); TOTAL PROTEIN 6.7 G/DL (6.3-8.2)
[2017-06-04 07:06] LABS: ABNORMAL PROTEIN BAND 1 0.21 g/dL (None Detected); BETA 1 GLOBULIN 0.3 g/dL (0.4-0.6); BETA 2 GLOBULIN 0.3 g/dL (0.2-0.5); GAMMA GLOBULIN 1.1 g/dL (0.8-1.7)
--- NOTE | 2017-06-04 08:57 | CP.PCM.PN ---
Subjective - Date & Time of Evaluation Date of Evaluation: 06/04/17 Time of Evaluation: 07:30 - Subjective Subjective: 66 year old female with PMHx of HTN, DM, OK, CVA, OK, PVD seen for left medial hallux ulceration and osteomyelitis of left hallux and tibial sesamoid 8 days s/ p revascularization of left leg. She is seen resting comfortably in bed, NAD, and AA0x3. Patient reports feeling tired, she said she was tossing and turning last night. She reports no pain at the site of ulceration. She denies n/v/cp/ chills or f. Reports same SOB. Objective - Vital Signs/Intake and Output Vital Signs (last 24 hours): Temp Pulse Resp BP Pulse Ox 98.1 F 85 18 121/75 100 06/04/17 08:04 06/04/17 08:04 06/04/17 08:04 06/04/17 08:04 06/04/17 08:04 - Medications Medications: Current Medications Acetaminophen (Tylenol 325mg Tab) 650 mg PO Q6 PRN PRN Reason: Pain, moderate (4-7) Last Admin: 06/03/17 20:32 Dose: 650 mg Acetaminophen (Tylenol 325mg Tab) 650 mg PO Q6 PRN PRN Reason: Headache Aspirin (Aspirin Chewable) 81 mg PO DAILY [facility] Last Admin: 06/03/17 09:01 Dose: 81 mg Atorvastatin Calcium (Lipitor) 40 mg PO DAILY [facility] Last Admin: 06/03/17 09:02 Dose: 40 mg Carvedilol (Coreg) 6.25 mg PO Q12 [facility] Last Admin: 06/03/17 20:34 Dose: 6.25 mg Clopidogrel Bisulfate (Plavix) 75 mg PO DAILY [facility] Last Admin: 06/03/17 09:02 Dose: 75 mg Heparin Sodium (Porcine) (Heparin) 5,000 units SC Q8 [facility] PRN Reason: Protocol Last Admin: 06/04/17 00:36 Dose: 5,000 units Hydralazine HCl (Apresoline) 25 mg PO TID [facility] Last Admin: 06/03/17 17:22 Dose: 25 mg Iron Sucrose 200 mg/ Sodium (Chloride) 110 mls @ 110 mls/hr IVPB 1700 [facility] Last Admin: 06/03/17 16:37 Dose: 110 mls/hr Piperacillin Sod/Tazobactam (Sod 2.25 gm/ Sodium Chloride) 100 mls @ 100 mls/ hr IVPB Q6H [facility] Last Admin: 06/04/17 05:48 Dose: 100 mls/hr Insulin Detemir (Levemir) 15 units SC QPM [facility] Last Admin: 06/03/17 18:07 Dose: 15 u Insulin Detemir (Levemir) 25 units SC DAILY [facility] Last Admin: 06/03/17 09:07 Dose: 25 units Insulin Human Regular (Humulin R) 0 units SC ACHS [facility] PRN Reason: Protocol Last Admin: 06/03/17 21:50 Dose: Not Given Isosorbide Mononitrate (Imdur) 60 mg PO DAILY [facility] Last Admin: 06/03/17 09:02 Dose: Not Given Lidocaine (Lidoderm) 2 ea TD DAILY [facility] Last Admin: 06/03/17 16:43 Dose: 2 ea Mirtazapine (Remeron) 7.5 mg PO HS [facility] Last Admin: 06/03/17 21:49 Dose: 7.5 mg Senna/Docusate Sodium (Senokot S 50 Mg-8.6 Mg) 2 tab PO HS [facility] Last Admin: 06/03/17 21:49 Dose: Not Given - Labs Labs: 06/04/17 05:30 06/04/17 05:30 PT 13.1 Seconds (9.8-13.1) 05/20/17 06:00 INR 1.2 (0.9-1.2) 05/20/17 06:00 APTT 34.8 Seconds (25.6-37.1) 05/20/17 06:00 - Constitutional Appears: Well, Non-toxic, No Acute Distress - Extremities Exam Additional comments: LE focused exam Vasc: DP/PT pulses palpable 1/4 b/l. CFT< 3 seconds to digits 1-5 b/l. Temperature gradient warm to warm from proximal to distal. Neuro: Epicritic and protective sensation grossly intact b/l Derm: Ulceration measuring approximately 1.4 cm x 1.5 cm x .2 cm with dry necrotic base and hyperkeratotic rim noted. Distally hyperkeratotic rim is noted to be partially detached from healthy skin. No drainage, purulence, or malodor noted. No streaking. Very mild erythema noted to the periwound. No tunneling. Undermining is noted to inferior margin. Probe to bone. Ortho: Tenderness reports to left lower extremity at surgical site. No tenderness to palpation of left medial 1st met head - Neurological Exam Neurological Exam: Alert, Awake, Oriented x3 - Psychiatric Exam Psychiatric exam: Normal Affect, Normal Mood Assessment and Plan - Assessment and Plan (Free Text) Assessment: 66 year old female with L 1st metatarsal ulceration secondary to DM and L 1st metatarsal head and tibial sesamoid osteomyelitis POD #8 L leg revascularization. Plan: Patient seen and evaluated Plan discussed in detail with attending Dr. Reynoso Charts, labs and vitals reviewed (afebrile, WBC=11.9) Podiatry aware patient has NAI and CHF Once patient is stabilized, discussions of right foot OM operation will be made Hyperkeratotic dry skin partially detached from healthy skin distally was removed using gauze without incident. No bleeding noted. Dressing changed; Ulcer dressed with xeroform, 4x4, cling Continue abx per ID Continue pain management per medicine Podiatry will continue to follow while in house
--- NOTE | 2017-06-04 09:01 | CP.PCM.PN ---
Subjective - Date & Time of Evaluation Date of Evaluation: 06/04/17 Time of Evaluation: 06:35 - Subjective Subjective: No acute overnight events. Pt was transfused 1unit of RBC around midnight. Seen lying in bed comfortable this morning. States she has mild pain in her left foot near surgical site. Had 4 BM yesterday, well-formed, no blood. Also stated , she urinated once yesterday in moderate quantity. She denied any complaints of fever, chills, rashes, n/v/d, chest pain, palpatations, SOB. Objective - Vital Signs/Intake and Output Vital Signs (last 24 hours): Temp Pulse Resp BP Pulse Ox 98.1 F 85 18 121/75 100 06/04/17 08:04 06/04/17 08:04 06/04/17 08:04 06/04/17 08:04 06/04/17 08:04 - Medications Medications: Current Medications Acetaminophen (Tylenol 325mg Tab) 650 mg PO Q6 PRN PRN Reason: Pain, moderate (4-7) Last Admin: 06/03/17 20:32 Dose: 650 mg Acetaminophen (Tylenol 325mg Tab) 650 mg PO Q6 PRN PRN Reason: Headache Aspirin (Aspirin Chewable) 81 mg PO DAILY [facility] Last Admin: 06/03/17 09:01 Dose: 81 mg Carvedilol (Coreg) 6.25 mg PO Q12 [facility] Last Admin: 06/03/17 20:34 Dose: 6.25 mg Clopidogrel Bisulfate (Plavix) 75 mg PO DAILY [facility] Last Admin: 06/03/17 09:02 Dose: 75 mg Heparin Sodium (Porcine) (Heparin) 5,000 units SC Q8 [facility] PRN Reason: Protocol Last Admin: 06/04/17 00:36 Dose: 5,000 units Hydralazine HCl (Apresoline) 25 mg PO TID [facility] Last Admin: 06/03/17 17:22 Dose: 25 mg Iron Sucrose 200 mg/ Sodium (Chloride) 110 mls @ 110 mls/hr IVPB 1700 [facility] Last Admin: 06/03/17 16:37 Dose: 110 mls/hr Piperacillin Sod/Tazobactam (Sod 2.25 gm/ Sodium Chloride) 100 mls @ 100 mls/ hr IVPB Q6H [facility] Last Admin: 06/04/17 05:48 Dose: 100 mls/hr Insulin Detemir (Levemir) 15 units SC QPM [facility] Last Admin: 06/03/17 18:07 Dose: 15 u Insulin Detemir (Levemir) 25 units SC DAILY [facility] Last Admin: 06/03/17 09:07 Dose: 25 units Insulin Human Regular (Humulin R) 0 units SC ACHS [facility] PRN Reason: Protocol Last Admin: 06/03/17 21:50 Dose: Not Given Isosorbide Mononitrate (Imdur) 60 mg PO DAILY [facility] Last Admin: 06/03/17 09:02 Dose: Not Given Lidocaine (Lidoderm) 2 ea TD DAILY [facility] Last Admin: 06/03/17 16:43 Dose: 2 ea Mirtazapine (Remeron) 7.5 mg PO HS [facility] Last Admin: 06/03/17 21:49 Dose: 7.5 mg Senna/Docusate Sodium (Senokot S 50 Mg-8.6 Mg) 2 tab PO HS [facility] Last Admin: 06/03/17 21:49 Dose: Not Given - Labs Labs: 06/04/17 05:30 06/04/17 05:30 PT 13.1 Seconds (9.8-13.1) 05/20/17 06:00 INR 1.2 (0.9-1.2) 05/20/17 06:00 APTT 34.8 Seconds (25.6-37.1) 05/20/17 06:00 - Constitutional Appears: Well, Non-toxic, No Acute Distress - ENT Exam ENT Exam: Mucous Membranes Moist - Respiratory Exam Respiratory Exam: Accessory Muscle Use. absent: Rales, Wheezes, Respiratory Distress - Cardiovascular Exam Cardiovascular Exam: REGULAR RHYTHM, +S1, +S2. absent: Murmur - GI/Abdominal Exam GI & Abdominal Exam: Soft, Normal Bowel Sounds. absent: Guarding, Tenderness, Organomegaly - Extremities Exam Extremities Exam: absent: Calf Tenderness, Pedal Edema Additional comments: Good pedal pulsus bilaterally. Motor and sensory of feet in tact - Neurological Exam Neurological Exam: Alert, CN II-XII Intact, Oriented x3 - Psychiatric Exam Psychiatric exam: Normal Affect Assessment and Plan (1) Osteomyelitis Status: Acute (2) PVD (peripheral vascular disease) Status: Acute (3) Acute kidney injury Status: Acute - Assessment and Plan (Free Text) Assessment: 66 y.o. female with hx of Peripheral vascular disease admitted for osteomyelitis POD #2 left lower leg revascularization #Acute decompensated Systolic Heart Failure- EF 20%, Acute -Upon returning from revascular procedure in [place], pt was found to be fluid overloaded. No respiratory distress and no hypoxia. Repeat Cxray (05-29) was found to show mild-moderate pulmonary congestion, bilateral pleural effusions. -Cardiology consulted- As per Dr. Russo, NAI is likely secondary to fluid overload; Echo ordered to evaluate LV diameter, PAP, and IVC. -SOB improving, no LE edema, Vitals wnl, afebrile -(06/01)Troponin I= 0.1380 (Cardio informed) -Latest Pro BNP 92625 (07/02), will repeat -C/W Coreg 6.25mg PO, Hydralazine 25mg, and Isosorbid Mononitrate 60mg, Asp 81mg PO daily, Plavix 75mg PO daily -Monitor I/O's -Fluid and salt restrictions -Heart healthy diet -Plan: pt's vital signs, I/O, SOB and lung exam. Echo to evaluate LV diameter as per Dr. Russo. #Acute Kidney Injury, Acute -Crea 2.1 today (improving), electrolytes stable. Dalal was removed and pt making good urine -Likely due to reduced renal perfusion secondary to low cardiac output vs contrast-induced nephropathy in the setting of DM and Renal vascular disease -Renal US-negative for obstructive pathology, distended bladder -Nephrology consult appreciated -Dalal put in to quantify urine output; Strict I/O's -Hold Misha inhibitor and nephrotoxic agents (contrast) -Mg nml, Phos=4.8 -Renally Dose Zosyn -Renal Diet -Plan: NAI is improving, continue monitoring Crea. Avoid all nephrotoxic agents. Will manage as per nephrology's recommendations. # Anemia, Acute s/p transfusion of 1 unit RBC's -Pt was transfused last night after being found to have a hg of 7 and complaining of weakness. Todays H/H: 9.3 -Ferritin wnl, TIBC wnl - Iron 24( L), Reticulocyte: 3.4 (H) -B12 normal, Folate nml -Hemo/Onc consulted- Dr. Snow, Pt's borderline normocytic anemia worsened likely due to multiple phlebotomies vs recent vascular procedure. Consider GI consults when stable for endoscopic work up as pt has never had colonoscopy before. Started on Iron sucrose, IVPB as per heme/onc -FOBT negative x2 -Will continue to monitor H/H #Osteomyelitis, Acute -Afebrile, No leukocytosis - Recommendations as per Podiatry-will likely need surgery after revascularization. Pt can be weight bearing as tolerated to the heels in surgical shoe of affected foot which will act as an off loading device so she doesn't put too much pressure in the forefoot. -Xray Foot: Study reveals what appears to represent some localized irregularity along the superomedial border of the head of first metatarsal. Also some irregularity of the overlying soft tissues and possibly small amount of subcutaneous air. Findings suggest osteomyelitis in this location. -C/w Zosyn 3.375gm Q12, Day 12 -Tyelenol 650mg prn, Lidocaine pathes x2 daily. Pt tolerating pain well -Social Work Referral: Pt has concerns about her living arrangements after her surgery (likely a below the knee amputation). She lives in a 5 floor walk up with . Plan:Speak with Nephro and Cardio about when pt can possibly be ready for the OR ; Will continue ABX as per ID #Transaminitis, Acute -AST 72, ALT 67 possibly due to congestive hepatopathy in the setting of acute decompensated CHF -Will continue to monitor # Hypokalemia RESOLVED -Pt denies constipation,muscle cramps -Likely secondary to diuretic -Given KCl 40mg once -Continue to monitor # Peripheral Vascular Disease- POD #2 Left lower leg revascularization - Revascularization complete at [place] -Monitor pedal pulses daily -PT/OT # Diabetes Mellitus Type 2 -POCG have in in 250's. Patient is currently on long acting insulin only. Will add short acting with meals, Lispro 6 units with meals. -Levemir 25units daily and 15units pm. Continue to monitor -Insulin coverage scale -A1C 7.3 -Diabetic diet -Hypoglycemia protocol in place #Hypertension -Currently normotensive, controlled -Metoprolol 25 mg Q6 -Coreg 6.25mg Q12 -Misha inhibitor stopped for now # Hyperlipidemia -Continue home meds: atorvastatin # DVT prophylaxis -Heparin 5000 units SQ
[2017-06-04] MEDS: Insulin Regular 100 units/ml SC SCH ×4 (09:36→21:34)
[2017-06-04] MEDS: Lidocaine 5% Patch TD SCH (09:41)
[2017-06-04] MEDS: Insulin Detemir 100 Units/ml Inj SC SCH ×2 (09:41→21:39)
--- NOTE | 2017-06-04 12:13 | CP.PCM.PN ---
Objective - Vital Signs/Intake and Output Vital Signs (last 24 hours): Temp Pulse Resp BP Pulse Ox 98.1 F 85 18 121/85 100 06/04/17 08:04 06/04/17 09:38 06/04/17 08:04 06/04/17 09:38 06/04/17 08:04 - Medications Medications: Current Medications Acetaminophen (Tylenol 325mg Tab) 650 mg PO Q6 PRN PRN Reason: Pain, moderate (4-7) Last Admin: 06/03/17 20:32 Dose: 650 mg Acetaminophen (Tylenol 325mg Tab) 650 mg PO Q6 PRN PRN Reason: Headache Aspirin (Aspirin Chewable) 81 mg PO DAILY [facility] Last Admin: 06/04/17 09:38 Dose: 81 mg Carvedilol (Coreg) 6.25 mg PO Q12 [facility] Last Admin: 06/04/17 09:38 Dose: 6.25 mg Clopidogrel Bisulfate (Plavix) 75 mg PO DAILY [facility] Last Admin: 06/04/17 09:42 Dose: 75 mg Heparin Sodium (Porcine) (Heparin) 5,000 units SC Q8 [facility] PRN Reason: Protocol Last Admin: 06/04/17 09:38 Dose: 5,000 units Hydralazine HCl (Apresoline) 25 mg PO TID [facility] Last Admin: 06/04/17 09:38 Dose: 25 mg Iron Sucrose 200 mg/ Sodium (Chloride) 110 mls @ 110 mls/hr IVPB 1700 [facility] Last Admin: 06/03/17 16:37 Dose: 110 mls/hr Piperacillin Sod/Tazobactam (Sod 2.25 gm/ Sodium Chloride) 100 mls @ 100 mls/ hr IVPB Q6H [facility] Last Admin: 06/04/17 05:48 Dose: 100 mls/hr Insulin Detemir (Levemir) 15 units SC QPM [facility] Last Admin: 06/03/17 18:07 Dose: 15 u Insulin Detemir (Levemir) 25 units SC DAILY [facility] Last Admin: 06/04/17 09:41 Dose: Not Given Insulin Human Regular (Humulin R) 0 units SC ACHS [facility] PRN Reason: Protocol Last Admin: 06/04/17 09:36 Dose: Not Given Isosorbide Mononitrate (Imdur) 60 mg PO DAILY [facility] Last Admin: 06/04/17 09:40 Dose: 60 mg Lidocaine (Lidoderm) 2 ea TD DAILY [facility] Last Admin: 06/04/17 09:41 Dose: 2 ea Mirtazapine (Remeron) 7.5 mg PO HS [facility] Last Admin: 06/03/17 21:49 Dose: 7.5 mg Senna/Docusate Sodium (Senokot S 50 Mg-8.6 Mg) 2 tab PO HS [facility] Last Admin: 06/03/17 21:49 Dose: Not Given - Labs Labs: 06/04/17 05:30 06/04/17 05:30 PT 13.1 Seconds (9.8-13.1) 05/20/17 06:00 INR 1.2 (0.9-1.2) 05/20/17 06:00 APTT 34.8 Seconds (25.6-37.1) 05/20/17 06:00 Assessment and Plan (1) Cardiomyopathy, dilated Status: Acute (2) Systolic and diastolic CHF, acute on chronic Status: Acute (3) Volume overload Status: Acute (4) PVD (peripheral vascular disease) Status: Acute (5) SOB (shortness of breath) Status: Acute (6) Hx of myocardial infarction Status: Chronic (7) History of CVA (cerebrovascular accident) Status: Chronic (8) HTN (hypertension) Status: Chronic (9) Dyslipidemia Status: Chronic (10) History of tobacco abuse Status: Chronic (11) Osteomyelitis Status: Acute (12) Diabetic foot ulcer Status: Acute (13) Uncontrolled diabetes mellitus Status: Acute
[2017-06-04] MEDS: Insulin Lispro (humaLOG) 100 Units/ml Inj SC SCH ×2 (17:36→21:36)
--- NOTE | 2017-06-04 18:15 | CP.PCM.PN ---
Subjective - Date & Time of Evaluation Date of Evaluation: 06/04/17 Time of Evaluation: 12:45 - Subjective Subjective: Reports some shortness of breath again overnight; tolerating diet; Objective - Vital Signs/Intake and Output Vital Signs (last 24 hours): Temp Pulse Resp BP Pulse Ox 98.2 F 84 20 120/74 99 06/04/17 15:53 06/04/17 17:23 06/04/17 15:53 06/04/17 17:23 06/04/17 15:53 - Medications Medications: Current Medications Acetaminophen (Tylenol 325mg Tab) 650 mg PO Q6 PRN PRN Reason: Pain, moderate (4-7) Last Admin: 06/03/17 20:32 Dose: 650 mg Acetaminophen (Tylenol 325mg Tab) 650 mg PO Q6 PRN PRN Reason: Headache Aspirin (Aspirin Chewable) 81 mg PO DAILY [facility] Last Admin: 06/04/17 09:38 Dose: 81 mg Atorvastatin Calcium (Lipitor) 40 mg PO HS [facility] Bumetanide (Bumex) 1 mg IVP BID [facility] Last Admin: 06/04/17 17:24 Dose: 1 mg Carvedilol (Coreg) 6.25 mg PO Q12 [facility] Last Admin: 06/04/17 09:38 Dose: 6.25 mg Clopidogrel Bisulfate (Plavix) 75 mg PO DAILY [facility] Last Admin: 06/04/17 09:42 Dose: 75 mg Heparin Sodium (Porcine) (Heparin) 5,000 units SC Q8 [facility] PRN Reason: Protocol Last Admin: 06/04/17 17:28 Dose: 5,000 units Hydralazine HCl (Apresoline) 25 mg PO TID [facility] Last Admin: 06/04/17 17:23 Dose: 25 mg Iron Sucrose 200 mg/ Sodium (Chloride) 110 mls @ 110 mls/hr IVPB 1700 [facility] Last Admin: 06/04/17 17:25 Dose: 110 mls/hr Piperacillin Sod/Tazobactam (Sod 2.25 gm/ Sodium Chloride) 100 mls @ 100 mls/ hr IVPB Q6H [facility] Last Admin: 06/04/17 17:24 Dose: 100 mls/hr Insulin Detemir (Levemir) 15 units SC QPM [facility] Last Admin: 06/03/17 18:07 Dose: 15 u Insulin Detemir (Levemir) 25 units SC DAILY [facility] Last Admin: 06/04/17 09:41 Dose: Not Given Insulin Human Lispro (Humalog) 6 units SC [facility] Last Admin: 06/04/17 17:36 Dose: 6 u Insulin Human Regular (Humulin R) 0 units SC [facility] PRN Reason: Protocol Last Admin: 06/04/17 17:36 Dose: 2 unit Isosorbide Mononitrate (Imdur) 60 mg PO DAILY [facility] Last Admin: 06/04/17 09:40 Dose: 60 mg Lidocaine (Lidoderm) 2 ea TD DAILY [facility] Last Admin: 06/04/17 09:41 Dose: 2 ea Mirtazapine (Remeron) 7.5 mg PO HS [facility] Last Admin: 06/03/17 21:49 Dose: 7.5 mg Senna/Docusate Sodium (Senokot S 50 Mg-8.6 Mg) 2 tab PO HS [facility] Last Admin: 06/03/17 21:49 Dose: Not Given - Labs Labs: 06/04/17 05:30 06/04/17 05:30 PT 13.1 Seconds (9.8-13.1) 05/20/17 06:00 INR 1.2 (0.9-1.2) 05/20/17 06:00 APTT 34.8 Seconds (25.6-37.1) 05/20/17 06:00 - Constitutional Appears: Non-toxic, No Acute Distress - Head Exam Head Exam: NORMAL INSPECTION - Eye Exam Eye Exam: Normal appearance. absent: Scleral icterus - ENT Exam ENT Exam: Mucous Membranes Moist - Respiratory Exam Respiratory Exam: NORMAL BREATHING PATTERN Additional comments: minimal insp rales - Cardiovascular Exam Cardiovascular Exam: JVD, +S1, +S2. absent: Gallop - GI/Abdominal Exam GI & Abdominal Exam: absent: Distended, Soft, Tenderness - Exam Exam: absent: Bladder Distension - Extremities Exam Additional comments: mild b/l lower leg edema; - Neurological Exam Neurological Exam: Alert, Awake - Psychiatric Exam Psychiatric exam: Normal Affect, Normal Mood - Skin Skin Exam: Normal Color, Warm. absent: Cyanosis Assessment and Plan (1) Acute renal failure Assessment & Plan: ATN secondary to contrast nephropathy, resolving; non-oliguric although urine output has decreased; concern for volume overload in setting of CHF; -keep on bumex 1 mg PO bid w/ parameters to hold for SBP < 100 to avoid stunting renal recovery; Status: Acute (2) Cardiomyopathy, dilated Assessment & Plan: Acute decompensated systolic CHF, overall improved; keep on diuretics as above; Status: Acute (3) Osteomyelitis Assessment & Plan: On zosyn 2.25 g q6h, continue same for CrCl < 30; Status: Acute (4) PVD (peripheral vascular disease) Assessment & Plan: With renovascular disease as well; continue lipitor; Status: Acute (5) HTN (hypertension) Assessment & Plan: BP at lower end of normal at times; on multiple CHF meds; avoid dropping BP further with diuretics as mentioned above; Status: Chronic (6) CKD (chronic kidney disease) Assessment & Plan: If baseline proteinuria present, will benefit from LUIS blockade which she'll need anyway for CHF; hold off on starting until renal function stabilizes; Status: Chronic (7) Anemia Assessment & Plan: Iron deficiency as well as due to chronic/acute illness; s/p 2 u prbc transfusion with appropriate increase in hgb; continue IV iron to complete 10 doses; Status: Acute
[2017-06-04] MEDS: Docusate-Senna 50 mg-8.6 mg Tab PO SCH (21:11)
[2017-06-05] MEDS: Insulin Regular 100 units/ml SC SCH ×4 (07:30→22:16)
[2017-06-05] MEDS: Insulin Lispro (humaLOG) 100 Units/ml Inj SC SCH ×4 (07:30→22:20)
[2017-06-05 07:38] LABS: HEMATOCRIT 25.2 % (34.0-47.0); MEAN CELL VOLUME 84.7 fl (81.0-99.0); MEAN CORPUSCULAR HEMOGLOBIN 28.1 pg (27.0-31.0); MEAN CORPUSCULAR HGB CONC 33.2 g/dL (33.0-37.0); RED CELL DISTRIBUTION WIDTH 17.3 % (11.5-14.5); WHITE BLOOD COUNT 10.2 K/uL (4.8-10.8)
[2017-06-05 07:46] LABS: ALB/GLOB RATIO 0.9 (1.0-2.1); BILIRUBIN,TOTAL 0.6 mg/dl (0.2-1.3); CALCIUM 8.8 mg/dL (8.4-10.2); POTASSIUM 3.5 MMOL/L (3.6-5.0)
--- NOTE | 2017-06-05 07:50 | CP.PCM.PN ---
Subjective - Date & Time of Evaluation Date of Evaluation: 06/05/17 Time of Evaluation: 07:10 - Subjective Subjective: pt seen this am for chronic om and wound left foot.Pt seen with resident .awaiting med [place]. Objective - Vital Signs/Intake and Output Vital Signs (last 24 hours): Temp Pulse Resp BP Pulse Ox 98.0 F 74 18 121/74 98 06/05/17 05:00 06/05/17 05:00 06/05/17 05:00 06/05/17 05:00 06/05/17 05:00 Intake and Output: 06/05/17 06/05/17 06:59 18:59 Output Total 200 Balance -200 - Medications Medications: Current Medications Acetaminophen (Tylenol 325mg Tab) 650 mg PO Q6 PRN PRN Reason: Pain, moderate (4-7) Last Admin: 06/03/17 20:32 Dose: 650 mg Acetaminophen (Tylenol 325mg Tab) 650 mg PO Q6 PRN PRN Reason: Headache Aspirin (Aspirin Chewable) 81 mg PO DAILY [facility] Last Admin: 06/04/17 09:38 Dose: 81 mg Atorvastatin Calcium (Lipitor) 40 mg PO HS [facility] Last Admin: 06/04/17 21:21 Dose: 40 mg Bumetanide (Bumex) 1 mg PO BID [facility] Carvedilol (Coreg) 6.25 mg PO Q12 [facility] Last Admin: 06/04/17 21:21 Dose: 6.25 mg Clopidogrel Bisulfate (Plavix) 75 mg PO DAILY [facility] Last Admin: 06/04/17 09:42 Dose: 75 mg Heparin Sodium (Porcine) (Heparin) 5,000 units SC Q8 [facility] PRN Reason: Protocol Last Admin: 06/05/17 00:26 Dose: 5,000 units Hydralazine HCl (Apresoline) 25 mg PO TID [facility] Last Admin: 06/04/17 17:23 Dose: 25 mg Iron Sucrose 200 mg/ Sodium (Chloride) 110 mls @ 110 mls/hr IVPB 1700 [facility] Last Admin: 06/04/17 17:25 Dose: 110 mls/hr Piperacillin Sod/Tazobactam (Sod 2.25 gm/ Sodium Chloride) 100 mls @ 100 mls/ hr IVPB Q6H [facility] Last Admin: 06/05/17 05:10 Dose: 100 mls/hr Insulin Detemir (Levemir) 15 units SC QPM [facility] Last Admin: 06/04/17 21:39 Dose: 15 units Insulin Detemir (Levemir) 25 units SC DAILY [facility] Last Admin: 06/04/17 09:41 Dose: Not Given Insulin Human Lispro (Humalog) 6 units SC ACHS [facility] Last Admin: 06/04/17 21:36 Dose: 6 units Insulin Human Regular (Humulin R) [address] [facility] PRN Reason: Protocol Last Admin: 06/04/17 21:34 Dose: Not Given Isosorbide Mononitrate (Imdur) 60 mg PO DAILY [facility] Last Admin: 06/04/17 09:40 Dose: 60 mg Lidocaine (Lidoderm) 2 ea TD DAILY [facility] Last Admin: 06/04/17 09:41 Dose: 2 ea Mirtazapine (Remeron) 7.5 mg PO HS [facility] Last Admin: 06/04/17 21:20 Dose: 7.5 mg Senna/Docusate Sodium (Senokot S 50 Mg-8.6 Mg) 2 tab PO HS [facility] Last Admin: 06/04/17 21:11 Dose: Not Given - Labs Labs: 06/04/17 05:30 06/04/17 05:30 PT 13.1 Seconds (9.8-13.1) 05/20/17 06:00 INR 1.2 (0.9-1.2) 05/20/17 06:00 APTT 34.8 Seconds (25.6-37.1) 05/20/17 06:00
[2017-06-05] MEDS: Lidocaine 5% Patch TD SCH (09:07)
[2017-06-05] MEDS: Insulin Detemir 100 Units/ml Inj SC SCH ×2 (09:16→22:18)
--- NOTE | 2017-06-05 11:30 | CP.PCM.PN ---
Subjective - Date & Time of Evaluation Date of Evaluation: 06/05/17 Time of Evaluation: 11:30 - Subjective Subjective: no complaints. no sob, no cp Objective - Vital Signs/Intake and Output Vital Signs (last 24 hours): Temp Pulse Resp BP Pulse Ox 98.4 F 82 20 116/51 L 98 06/05/17 08:00 06/05/17 09:06 06/05/17 08:00 06/05/17 09:06 06/05/17 08:00 Intake and Output: 06/05/17 06/05/17 06:59 18:59 Output Total 200 Balance -200 - Medications Medications: Current Medications Acetaminophen (Tylenol 325mg Tab) 650 mg PO Q6 PRN PRN Reason: Pain, moderate (4-7) Last Admin: 06/03/17 20:32 Dose: 650 mg Acetaminophen (Tylenol 325mg Tab) 650 mg PO Q6 PRN PRN Reason: Headache Aspirin (Aspirin Chewable) 81 mg PO DAILY [facility] Last Admin: 06/05/17 09:05 Dose: 81 mg Atorvastatin Calcium (Lipitor) 40 mg PO HS [facility] Last Admin: 06/04/17 21:21 Dose: 40 mg Bumetanide (Bumex) 1 mg PO BID [facility] Last Admin: 06/05/17 09:05 Dose: 1 mg Carvedilol (Coreg) 6.25 mg PO Q12 [facility] Last Admin: 06/05/17 09:06 Dose: 6.25 mg Clopidogrel Bisulfate (Plavix) 75 mg PO DAILY [facility] Last Admin: 06/05/17 09:06 Dose: 75 mg Heparin Sodium (Porcine) (Heparin) 5,000 units SC Q8 [facility] PRN Reason: Protocol Last Admin: 06/05/17 09:07 Dose: 5,000 units Hydralazine HCl (Apresoline) 25 mg PO TID [facility] Last Admin: 06/04/17 17:23 Dose: 25 mg Iron Sucrose 200 mg/ Sodium (Chloride) 110 mls @ 110 mls/hr IVPB 1700 [facility] Last Admin: 06/04/17 17:25 Dose: 110 mls/hr Piperacillin Sod/Tazobactam (Sod 2.25 gm/ Sodium Chloride) 100 mls @ 100 mls/ hr IVPB Q6H [facility] Last Admin: 06/05/17 05:10 Dose: 100 mls/hr Insulin Detemir (Levemir) 15 units SC QPM [facility] Last Admin: 06/04/17 21:39 Dose: 15 units Insulin Detemir (Levemir) 25 units SC DAILY [facility] Last Admin: 06/05/17 09:16 Dose: Not Given Insulin Human Lispro (Humalog) 6 units SC [facility] Last Admin: 06/05/17 07:30 Dose: Not Given Insulin Human Regular (Humulin R) 0 units SC [facility] PRN Reason: Protocol Last Admin: 06/05/17 07:30 Dose: Not Given Isosorbide Mononitrate (Imdur) 60 mg PO DAILY [facility] Last Admin: 06/05/17 09:05 Dose: 60 mg Lidocaine (Lidoderm) 2 ea TD DAILY [facility] Last Admin: 06/05/17 09:07 Dose: 2 ea Mirtazapine (Remeron) 7.5 mg PO HS [facility] Last Admin: 06/04/17 21:20 Dose: 7.5 mg Senna/Docusate Sodium (Senokot S 50 Mg-8.6 Mg) 2 tab PO [facility] Last Admin: 06/04/17 21:11 Dose: Not Given - Labs Labs: 06/05/17 06:00 06/05/17 06:00 PT 13.1 Seconds (9.8-13.1) 05/20/17 06:00 INR 1.2 (0.9-1.2) 05/20/17 06:00 APTT 34.8 Seconds (25.6-37.1) 05/20/17 06:00 Assessment and Plan (1) Cardiomyopathy, dilated Status: Acute (2) Systolic and diastolic CHF, acute on chronic Status: Acute (3) Volume overload Status: Acute (4) PVD (peripheral vascular disease) Status: Acute (5) SOB (shortness of breath) Status: Acute (6) Hx of myocardial infarction Status: Chronic (7) History of CVA (cerebrovascular accident) Status: Chronic (8) HTN (hypertension) Status: Chronic (9) Dyslipidemia Status: Chronic (10) History of tobacco abuse Status: Chronic (11) Osteomyelitis Status: Acute (12) Diabetic foot ulcer Status: Acute (13) Uncontrolled diabetes mellitus Status: Acute - Assessment and Plan (Free Text) Plan: pt needs to be on dry side with baseline cr prior to undergoing foot surgery. would give bumex 1mg ivp today then 1mg po bid tomorrow monitor lytes and tele ef 20 d.w residents 90 min total care time
[2017-06-05] MEDS ORDERED: Potassium Chloride 20 mEq ER Tab PO ONE (15:55)
--- NOTE | 2017-06-05 15:56 | CP.PCM.PN ---
Subjective - Date & Time of Evaluation Date of Evaluation: 06/05/17 Time of Evaluation: 10:30 - Subjective Subjective: Reports occasional shortness of breath; urinated frequently overnight; Objective - Vital Signs/Intake and Output Vital Signs (last 24 hours): Temp Pulse Resp BP Pulse Ox 98.1 F 73 20 102/63 99 06/05/17 13:00 06/05/17 13:00 06/05/17 13:00 06/05/17 13:00 06/05/17 13:00 Intake and Output: 06/05/17 06/05/17 06:59 18:59 Output Total 200 Balance -200 - Medications Medications: Current Medications Acetaminophen (Tylenol 325mg Tab) 650 mg PO Q6 PRN PRN Reason: Pain, moderate (4-7) Last Admin: 06/03/17 20:32 Dose: 650 mg Acetaminophen (Tylenol 325mg Tab) 650 mg PO Q6 PRN PRN Reason: Headache Aspirin (Aspirin Chewable) 81 mg PO DAILY [facility] Last Admin: 06/05/17 09:05 Dose: 81 mg Atorvastatin Calcium (Lipitor) 40 mg PO HS [facility] Last Admin: 06/04/17 21:21 Dose: 40 mg Bumetanide (Bumex) 1 mg PO BID [facility] Last Admin: 06/05/17 09:05 Dose: 1 mg Carvedilol (Coreg) 6.25 mg PO Q12 [facility] Last Admin: 06/05/17 09:06 Dose: 6.25 mg Clopidogrel Bisulfate (Plavix) 75 mg PO DAILY [facility] Last Admin: 06/05/17 09:06 Dose: 75 mg Heparin Sodium (Porcine) (Heparin) 5,000 units SC Q8 [facility] PRN Reason: Protocol Last Admin: 06/05/17 09:07 Dose: 5,000 units Hydralazine HCl (Apresoline) 25 mg PO TID [facility] Last Admin: 06/05/17 12:34 Dose: 25 mg Iron Sucrose 200 mg/ Sodium (Chloride) 110 mls @ 110 mls/hr IVPB 1700 [facility] Last Admin: 06/04/17 17:25 Dose: 110 mls/hr Piperacillin Sod/Tazobactam (Sod 2.25 gm/ Sodium Chloride) 100 mls @ 100 mls/ hr IVPB Q6H [facility] Last Admin: 06/05/17 12:28 Dose: 100 mls/hr Insulin Detemir (Levemir) 15 units SC QPM [facility] Last Admin: 06/04/17 21:39 Dose: 15 units Insulin Detemir (Levemir) 25 units SC DAILY [facility] Last Admin: 06/05/17 09:16 Dose: Not Given Insulin Human Lispro (Humalog) 6 units SC [facility] Last Admin: 06/05/17 12:29 Dose: 6 units Insulin Human Regular (Humulin R) 0 units SC [facility] PRN Reason: Protocol Last Admin: 06/05/17 12:27 Dose: Not Given Isosorbide Mononitrate (Imdur) 60 mg PO DAILY [facility] Last Admin: 06/05/17 09:05 Dose: 60 mg Lidocaine (Lidoderm) 2 ea TD DAILY [facility] Last Admin: 06/05/17 09:07 Dose: 2 ea Mirtazapine (Remeron) 7.5 mg PO HS [facility] Last Admin: 06/04/17 21:20 Dose: 7.5 mg Potassium Chloride (K-Dur 20 Meq Er Tab) 40 meq PO ONCE ONE Stop: 06/05/17 15:56 Senna/Docusate Sodium (Senokot S 50 Mg-8.6 Mg) [address] [facility] Last Admin: 06/04/17 21:11 Dose: Not Given - Labs Labs: 06/05/17 06:00 06/05/17 06:00 PT 13.1 Seconds (9.8-13.1) 05/20/17 06:00 INR 1.2 (0.9-1.2) 05/20/17 06:00 APTT 34.8 Seconds (25.6-37.1) 05/20/17 06:00 - Constitutional Appears: Well, No Acute Distress - Head Exam Head Exam: NORMAL INSPECTION - Eye Exam Eye Exam: Normal appearance - ENT Exam ENT Exam: Mucous Membranes Moist - Respiratory Exam Respiratory Exam: NORMAL BREATHING PATTERN Additional comments: minimal rales; - Cardiovascular Exam Cardiovascular Exam: RRR. absent: Gallop - GI/Abdominal Exam GI & Abdominal Exam: Soft. absent: Distended - Exam Additional comments: no bladder distention - Extremities Exam Additional comments: Minimal lower leg edema; - Neurological Exam Neurological Exam: Alert, Awake - Psychiatric Exam Psychiatric exam: Normal Affect, Normal Mood - Skin Skin Exam: Normal Color, Warm. absent: Cyanosis Assessment and Plan (1) Acute renal failure Assessment & Plan: Resolving; UO increased with diuretics, otherwise had not been polyuric; -need to avoid nephrotoxic meds/dye (including NSAIDS - toradol) -No objections to proceeding with surgery from renal perspective except that MAP needs to be maintained > 65 (preferable higher in the setting of renovascular disease) Status: Acute (2) Cardiomyopathy, dilated Assessment & Plan: Systolic CHF, signs/symptoms of decompensation improved; -continue bumex 1 mg PO bid -continue CHF meds per cardio Status: Acute (3) Osteomyelitis Assessment & Plan: On zosyn 2.25g q6h, continue for CrCl < 30 ml/min; Status: Acute (4) PVD (peripheral vascular disease) Assessment & Plan: With renovascular disease as well; continue lipitor; Status: Acute (5) HTN (hypertension) Assessment & Plan: Currently normotensive; continue current regimen; Status: Chronic (6) CKD (chronic kidney disease) Status: Chronic (7) Anemia Assessment & Plan: Due to chronic/acute illness and iron deficiency; continue IV iron; Status: Acute
[2017-06-05] MEDS ORDERED: Insulin Lispro (humaLOG) 100 Units/ml Inj SC SCH (17:08)
--- NOTE | 2017-06-05 18:15 | CP.PCM.PN ---
Subjective - Date & Time of Evaluation Date of Evaluation: 06/05/17 Time of Evaluation: 06:55 - Subjective Subjective: 66 year old female with PMHx of HTN, DM, [place], CVA, [place], PVD seen for left medial hallux ulceration and osteomyelitis of left hallux and tibial sesamoid 9 days s/ p revascularization of left leg with attending Dr. Reynoso. She is seen resting comfortably in bed, NAD, and AA0x3. She reports no pain at the site of ulceration. She denies n/v/cp/chills or f. Reports same SOB. Objective - Vital Signs/Intake and Output Vital Signs (last 24 hours): Temp Pulse Resp BP Pulse Ox 98.4 F 85 16 111/68 96 06/05/17 17:00 06/05/17 17:04 06/05/17 17:00 06/05/17 17:04 06/05/17 17:00 Intake and Output: 06/05/17 06/05/17 06:59 18:59 Output Total 200 Balance -200 - Medications Medications: Current Medications Acetaminophen (Tylenol 325mg Tab) 650 mg PO Q6 PRN PRN Reason: Pain, moderate (4-7) Last Admin: 06/03/17 20:32 Dose: 650 mg Aspirin (Aspirin Chewable) 81 mg PO DAILY [facility] Last Admin: 06/05/17 09:05 Dose: 81 mg Atorvastatin Calcium (Lipitor) 40 mg PO HS [facility] Last Admin: 06/04/17 21:21 Dose: 40 mg Bumetanide (Bumex) 1 mg PO BID [facility] Last Admin: 06/05/17 17:04 Dose: 1 mg Carvedilol (Coreg) 6.25 mg PO Q12 [facility] Last Admin: 06/05/17 09:06 Dose: 6.25 mg Clopidogrel Bisulfate (Plavix) 75 mg PO DAILY [facility] Last Admin: 06/05/17 09:06 Dose: 75 mg Heparin Sodium (Porcine) (Heparin) 5,000 units SC Q8 [facility] PRN Reason: Protocol Last Admin: 06/05/17 17:05 Dose: 5,000 units Hydralazine HCl (Apresoline) 25 mg PO TID [facility] Last Admin: 06/05/17 17:04 Dose: 25 mg Iron Sucrose 200 mg/ Sodium (Chloride) 110 mls @ 110 mls/hr IVPB 1700 [facility] Last Admin: 06/04/17 17:25 Dose: 110 mls/hr Piperacillin Sod/Tazobactam (Sod 2.25 gm/ Sodium Chloride) 100 mls @ 100 mls/ hr IVPB Q6H [facility] Last Admin: 06/05/17 17:06 Dose: 100 mls/hr Insulin Detemir (Levemir) 12 units SC HS [facility] Insulin Human Lispro (Humalog) 2 units SC [facility] Last Admin: 06/05/17 18:11 Dose: 2 units Insulin Human Regular (Humulin R) 0 units SC [facility] PRN Reason: Protocol Last Admin: 06/05/17 17:05 Dose: 3 unit Isosorbide Mononitrate (Imdur) 60 mg PO DAILY [facility] Last Admin: 06/05/17 09:05 Dose: 60 mg Lidocaine (Lidoderm) 2 ea TD DAILY [facility] Last Admin: 06/05/17 09:07 Dose: 2 ea Mirtazapine (Remeron) 7.5 mg PO HS [facility] Last Admin: 06/04/17 21:20 Dose: 7.5 mg - Labs Labs: 06/05/17 06:00 06/05/17 06:00 PT 13.1 Seconds (9.8-13.1) 05/20/17 06:00 INR 1.2 (0.9-1.2) 05/20/17 06:00 APTT 34.8 Seconds (25.6-37.1) 05/20/17 06:00 - Constitutional Appears: Well, Non-toxic, No Acute Distress - Extremities Exam Additional comments: LE focused exam Vasc: DP/PT pulses palpable 1/4 b/l. CFT< 3 seconds to digits 1-5 b/l. Temperature gradient warm to warm from proximal to distal. Neuro: Epicritic and protective sensation grossly intact b/l Derm: Ulceration measuring approximately 1.4 cm x 1.5 cm x .2 cm with dry necrotic base and hyperkeratotic rim noted. Distally hyperkeratotic rim is noted to be partially detached from healthy skin. No drainage, purulence, or malodor noted. No streaking. Very mild erythema noted to the periwound. No tunneling. Undermining is noted to inferior margin. Probe to bone. Ortho: Tenderness reports to left lower extremity at surgical site. No tenderness to palpation of left medial 1st met head - Neurological Exam Neurological Exam: Alert, Awake, Oriented x3 - Psychiatric Exam Psychiatric exam: Normal Affect, Normal Mood Assessment and Plan - Assessment and Plan (Free Text) Assessment: 66 year old female with L 1st metatarsal ulceration secondary to DM and L 1st metatarsal head and tibial sesamoid osteomyelitis POD #9 L leg revascularization. Plan: Patient seen and evaluated Plan discussed in detail with attending Dr. Reynoso Charts, labs and vitals reviewed (afebrile, WBC=10.2) Podiatry aware patient has NAI and CHF Once patient is stabilized, discussions of right foot OM operation will be made Hyperkeratotic dry skin partially detached from healthy skin distally was removed using gauze without incident. No bleeding noted. Dressing changed; Ulcer dressed with xeroform, 4x4, cling Continue abx per ID Continue pain management per medicine Podiatry will continue to follow while in house
--- NOTE | 2017-06-05 20:00 | CP.PCM.PN ---
Subjective - Date & Time of Evaluation Date of Evaluation: 06/06/17 Time of Evaluation: 08:20 - Subjective Subjective: Pt seen at bedside with no complaints at this time. Pt. states that she feel better. No overnight events. On ROS. pt. denies any headache, chest pain, shortness of breath, abdominal pain. Objective - Vital Signs/Intake and Output Vital Signs (last 24 hours): Temp Pulse Resp BP Pulse Ox 98.4 F 85 16 111/68 96 06/05/17 17:00 06/05/17 17:04 06/05/17 17:00 06/05/17 17:04 06/05/17 17:00 Intake and Output: 06/05/17 06/06/17 18:59 06:59 Intake Total 900 Balance 900 - Medications Medications: Current Medications Acetaminophen (Tylenol 325mg Tab) 650 mg PO Q6 PRN PRN Reason: Pain, moderate (4-7) Last Admin: 06/03/17 20:32 Dose: 650 mg Aspirin (Aspirin Chewable) 81 mg PO DAILY [facility] Last Admin: 06/05/17 09:05 Dose: 81 mg Atorvastatin Calcium (Lipitor) 40 mg PO HS [facility] Last Admin: 06/04/17 21:21 Dose: 40 mg Bumetanide (Bumex) 1 mg PO BID [facility] Last Admin: 06/05/17 17:04 Dose: 1 mg Carvedilol (Coreg) 6.25 mg PO Q12 [facility] Last Admin: 06/05/17 09:06 Dose: 6.25 mg Clopidogrel Bisulfate (Plavix) 75 mg PO DAILY [facility] Last Admin: 06/05/17 09:06 Dose: 75 mg Heparin Sodium (Porcine) (Heparin) 5,000 units SC Q8 [facility] PRN Reason: Protocol Last Admin: 06/05/17 17:05 Dose: 5,000 units Hydralazine HCl (Apresoline) 25 mg PO TID [facility] Last Admin: 06/05/17 17:04 Dose: 25 mg Iron Sucrose 200 mg/ Sodium (Chloride) 110 mls @ 110 mls/hr IVPB 1700 [facility] Last Admin: 06/05/17 19:13 Dose: 110 mls/hr Piperacillin Sod/Tazobactam (Sod 2.25 gm/ Sodium Chloride) 100 mls @ 100 mls/ hr IVPB Q6H [facility] Last Admin: 06/05/17 17:06 Dose: 100 mls/hr Insulin Detemir (Levemir) 12 units SC [facility] Insulin Human Lispro (Humalog) 2 units SC [facility] Last Admin: 06/05/17 18:11 Dose: 2 units Insulin Human Regular (Humulin R) 0 units SC [facility] PRN Reason: Protocol Last Admin: 06/05/17 17:05 Dose: 3 unit Isosorbide Mononitrate (Imdur) 60 mg PO DAILY [facility] Last Admin: 06/05/17 09:05 Dose: 60 mg Lidocaine (Lidoderm) 2 ea TD DAILY [facility] Last Admin: 06/05/17 09:07 Dose: 2 ea Mirtazapine (Remeron) 7.5 mg PO HS [facility] Last Admin: 06/04/17 21:20 Dose: 7.5 mg - Labs Labs: 06/05/17 06:00 06/05/17 06:00 PT 13.1 Seconds (9.8-13.1) 05/20/17 06:00 INR 1.2 (0.9-1.2) 05/20/17 06:00 APTT 34.8 Seconds (25.6-37.1) 05/20/17 06:00 - Constitutional Appears: Non-toxic, No Acute Distress - Head Exam Head Exam: ATRAUMATIC, NORMOCEPHALIC - ENT Exam ENT Exam: Mucous Membranes Moist - Respiratory Exam Respiratory Exam: Clear to Ausculation Bilateral, NORMAL BREATHING PATTERN - Cardiovascular Exam Cardiovascular Exam: REGULAR RHYTHM, +S1, +S2 - GI/Abdominal Exam GI & Abdominal Exam: Rigid, Soft - Psychiatric Exam Psychiatric exam: Normal Affect, Normal Mood - Skin Additional comments: left foot dressing clean dry inact Assessment and Plan - Assessment and Plan (Free Text) Assessment: 66 y.o. female with hx of Peripheral vascular disease admitted for osteomyelitis POD #8 left lower leg revascularization #Acute decompensated Systolic Heart Failure- EF 20% -Reduce afterload and heart rate Coreg 6.25mg PO, Hydralazine 25mg, and Isosorbid Mononitrate 60mg -Monitor I/O's -c/w Bumex 1mg PO BID will consider once daily dosing in the a.m. -Improving #Acute Kidney Injury- Creatinine 1.9 today -Continue Bumex 1mg PO BID will consider once daily dosing in the a.m -Improving # Anemia, Acute- improving s/p PRBC and I.V. Venofer -c/w I.V. venofer for 5 days -repeat H/H -consider hemolytic anemia- [place] test, haptoglobin, LFT, Total bilirubin -Ferritin WNL, TIBC WNL, IRon 24, Reticulocyte 3.4, B-12 and Folate WNL -FOBT x 2 negative #Osteomyelitis, Acute -Pt. to the O.R. when medically stable for wound resection #Transaminitis, Acute- -AST 72, ALT 67 po -AST 72, ALT 67 po -Repeat LFT -Will continue to monitor # Peripheral Vascular Disease- POD #3 Left lower leg revascularization - Revascularization complete at [place] -Monitor pedal pulses daily -PT/OT # Diabetes Mellitus Type 2 -basal levimir 12 units at night -2 UNITS Lantus with meals #Hypertension -c/w current management -Metoprolol 25 mg Q6 -Coreg 6.25mg Q12 -Misha inhibitor stopped for now # Hyperlipidemia -Continue home meds: atorvastatin # DVT prophylaxis -Heparin 5000 units SQ
[2017-06-06 08:10] LABS: HEMATOCRIT 25.4 % (34.0-47.0); MEAN CELL VOLUME 83.6 fl (81.0-99.0); MEAN CORPUSCULAR HEMOGLOBIN 28.4 pg (27.0-31.0); MEAN CORPUSCULAR HGB CONC 33.9 g/dL (33.0-37.0); RED CELL DISTRIBUTION WIDTH 17.3 % (11.5-14.5)
[2017-06-06 08:15] LABS: BILIRUBIN,TOTAL 0.6 mg/dl (0.2-1.3); POTASSIUM 3.8 MMOL/L (3.6-5.0); TOTAL PROTEIN 6.1 G/DL (6.3-8.2)
[2017-06-06] MEDS: Insulin Lispro (humaLOG) 100 Units/ml Inj SC SCH ×4 (09:07→21:52)
[2017-06-06] MEDS: Insulin Regular 100 units/ml SC SCH ×3 (09:08→16:47)
[2017-06-06] MEDS: Lidocaine 5% Patch TD SCH (09:08)
--- NOTE | 2017-06-06 09:47 | CP.PCM.PN ---
Subjective - Date & Time of Evaluation Date of Evaluation: 06/06/17 Time of Evaluation: 09:45 - Subjective Subjective: 66 year old female with PMHx of HTN, DM, MD, CVA, [place], PVD seen for left medial hallux ulceration and osteomyelitis of left hallux and tibial sesamoid 10 days s /p revascularization of left leg with attending Dr. Reynoso. She is seen resting comfortably in bed, NAD, and AA0x3. No acute events overnight. Her SOB is improving. She reports no pain at the site of ulceration. She denies n/v/cp/ chills or f. Objective - Vital Signs/Intake and Output Vital Signs (last 24 hours): Temp Pulse Resp BP Pulse Ox 97.7 F 82 20 101/66 94 L 06/06/17 08:29 06/06/17 08:29 06/06/17 08:29 06/06/17 09:06 06/06/17 08:29 Intake and Output: 06/06/17 06/06/17 06:59 18:59 Intake Total 200 Output Total 600 Balance -400 - Medications Medications: Current Medications Acetaminophen (Tylenol 325mg Tab) 650 mg PO Q6 PRN PRN Reason: Pain, moderate (4-7) Last Admin: 06/03/17 20:32 Dose: 650 mg Aspirin (Aspirin Chewable) 81 mg PO DAILY [facility] Last Admin: 06/06/17 09:06 Dose: 81 mg Atorvastatin Calcium (Lipitor) 40 mg PO HS [facility] Last Admin: 06/05/17 22:15 Dose: 40 mg Bumetanide (Bumex) 1 mg PO BID [facility] Last Admin: 06/06/17 09:04 Dose: 1 mg Carvedilol (Coreg) 6.25 mg PO Q12 [facility] Last Admin: 06/06/17 09:06 Dose: 6.25 mg Clopidogrel Bisulfate (Plavix) 75 mg PO DAILY [facility] Last Admin: 06/06/17 09:06 Dose: 75 mg Heparin Sodium (Porcine) (Heparin) 5,000 units SC Q8 [facility] PRN Reason: Protocol Last Admin: 06/06/17 09:04 Dose: 5,000 units Hydralazine HCl (Apresoline) 25 mg PO TID [facility] Last Admin: 06/06/17 09:04 Dose: 25 mg Iron Sucrose 200 mg/ Sodium (Chloride) 110 mls @ 110 mls/hr IVPB 1700 [facility] Last Admin: 06/05/17 19:13 Dose: 110 mls/hr Piperacillin Sod/Tazobactam (Sod 2.25 gm/ Sodium Chloride) 100 mls @ 100 mls/ hr IVPB Q6H [facility] Last Admin: 06/06/17 05:43 Dose: 100 mls/hr Insulin Detemir (Levemir) 12 units SC [facility] Last Admin: 06/05/17 22:18 Dose: 12 unit Insulin Human Lispro (Humalog) 2 units SC [facility] Last Admin: 06/06/17 09:07 Dose: 2 units Insulin Human Regular (Humulin R) 0 units SC [facility] PRN Reason: Protocol Last Admin: 06/06/17 09:08 Dose: Not Given Isosorbide Mononitrate (Imdur) 60 mg PO DAILY [facility] Last Admin: 06/06/17 09:05 Dose: 60 mg Lidocaine (Lidoderm) 2 ea TD DAILY [facility] Last Admin: 06/06/17 09:08 Dose: 2 ea Mirtazapine (Remeron) 7.5 mg PO [facility] Last Admin: 06/05/17 22:14 Dose: 7.5 mg - Labs Labs: 06/06/17 05:30 06/06/17 05:30 PT 13.1 Seconds (9.8-13.1) 05/20/17 06:00 INR 1.2 (0.9-1.2) 05/20/17 06:00 APTT 34.8 Seconds (25.6-37.1) 05/20/17 06:00 - Constitutional Appears: Well, Non-toxic, No Acute Distress - Extremities Exam Additional comments: LE focused exam Vasc: DP/PT pulses palpable 1/4 b/l. CFT< 3 seconds to digits 1-5 b/l. Temperature gradient warm to warm from proximal to distal. Neuro: Epicritic and protective sensation grossly intact b/l Derm: Ulceration measuring approximately 1.4 cm x 1.5 cm x .2 cm with dry necrotic base and hyperkeratotic rim noted. Distally hyperkeratotic rim is noted to be partially detached from healthy skin. No drainage, purulence, or malodor noted. No streaking. Very mild erythema noted to the periwound. No tunneling. Undermining is noted to inferior margin. Probe to bone. No changes noted to ulceration. Ortho: Tenderness reports to left lower extremity at surgical site. No tenderness to palpation of left medial 1st met head - Neurological Exam Neurological Exam: Alert, Awake, Oriented x3 - Psychiatric Exam Psychiatric exam: Normal Affect, Normal Mood Assessment and Plan - Assessment and Plan (Free Text) Assessment: 66 year old female with L 1st metatarsal ulceration secondary to DM and L 1st metatarsal head and tibial sesamoid osteomyelitis POD #10 L leg revascularization. Plan: .Patient seen and evaluated Plan discussed in detail with attending Dr. Reynoso Charts, labs and vitals reviewed (afebrile, WBC=10.0) Podiatry aware patient has NAI and CHF- improving Once patient is stabilized, discussions of right foot OM operation will be made , waiting optimization Hyperkeratotic dry skin partially detached from healthy skin distally was removed using gauze without incident. No bleeding noted. Dressing changed; Ulcer dressed with xeroform, 4x4, cling Continue abx per ID Continue pain management per medicine Podiatry will continue to follow while in house
--- NOTE | 2017-06-06 13:39 | CP.PCM.PN ---
Subjective - Date & Time of Evaluation Date of Evaluation: 06/06/17 Time of Evaluation: 08:30 - Subjective Subjective: No acute overnight events. Pt seen and examined at the bedside. States she is felling very anxious and cannot sleep at night. Pt is tearful. Reports improvement of her SOB. Also complains of a needle like sensation on her left lower extremity that she has had for almost 6 months but seems to be getting worse. Denies chest pain, fever, chills, calf pain. Objective - Vital Signs/Intake and Output Vital Signs (last 24 hours): Temp Pulse Resp BP Pulse Ox 97.7 F 82 20 150/70 94 L 06/06/17 08:29 06/06/17 08:29 06/06/17 08:29 06/06/17 12:34 06/06/17 08:29 Intake and Output: 06/06/17 06/06/17 06:59 18:59 Intake Total 200 Output Total 600 Balance -400 - Medications Medications: Current Medications Acetaminophen (Tylenol 325mg Tab) 650 mg PO Q6 PRN PRN Reason: Pain, moderate (4-7) Last Admin: 06/06/17 13:04 Dose: 650 mg Aspirin (Aspirin Chewable) 81 mg PO DAILY [facility] Last Admin: 06/06/17 09:06 Dose: 81 mg Atorvastatin Calcium (Lipitor) 40 mg PO HS [facility] Last Admin: 06/05/17 22:15 Dose: 40 mg Carvedilol (Coreg) 6.25 mg PO Q12 [facility] Last Admin: 06/06/17 09:06 Dose: 6.25 mg Clopidogrel Bisulfate (Plavix) 75 mg PO DAILY [facility] Last Admin: 06/06/17 09:06 Dose: 75 mg Heparin Sodium (Porcine) (Heparin) 5,000 units SC Q8 [facility] PRN Reason: Protocol Last Admin: 06/06/17 09:04 Dose: 5,000 units Hydralazine HCl (Apresoline) 25 mg PO TID [facility] Last Admin: 06/06/17 12:34 Dose: 25 mg Iron Sucrose 200 mg/ Sodium (Chloride) 110 mls @ 110 mls/hr IVPB 1700 [facility] Last Admin: 06/05/17 19:13 Dose: 110 mls/hr Piperacillin Sod/Tazobactam (Sod 2.25 gm/ Sodium Chloride) 100 mls @ 100 mls/ hr IVPB Q6H [facility] Last Admin: 06/06/17 05:43 Dose: 100 mls/hr Insulin Detemir (Levemir) 12 units SC [facility] Last Admin: 06/05/17 22:18 Dose: 12 unit Insulin Human Lispro (Humalog) 2 units SC [facility] Last Admin: 06/06/17 12:35 Dose: 2 units Insulin Human Regular (Humulin R) 0 units SC [facility] PRN Reason: Protocol Last Admin: 06/06/17 12:35 Dose: Not Given Isosorbide Mononitrate (Imdur) 60 mg PO DAILY [facility] Last Admin: 06/06/17 09:05 Dose: 60 mg Lidocaine (Lidoderm) 2 ea TD DAILY [facility] Last Admin: 06/06/17 09:08 Dose: 2 ea Mirtazapine (Remeron) 7.5 mg PO [facility] Last Admin: 06/05/17 22:14 Dose: 7.5 mg - Labs Labs: 06/06/17 05:30 06/06/17 05:30 PT 13.1 Seconds (9.8-13.1) 05/20/17 06:00 INR 1.2 (0.9-1.2) 05/20/17 06:00 APTT 34.8 Seconds (25.6-37.1) 05/20/17 06:00 - Constitutional Appears: Well, No Acute Distress - ENT Exam ENT Exam: Mucous Membranes Moist - Respiratory Exam Respiratory Exam: Clear to Ausculation Bilateral, Rales Additional comments: Bibasilar rales, no wheezing. Not in any respiratory distress, breathing comfortably - Cardiovascular Exam Cardiovascular Exam: REGULAR RHYTHM, +S1, +S2. absent: Murmur - GI/Abdominal Exam GI & Abdominal Exam: Soft, Normal Bowel Sounds. absent: Tenderness - Extremities Exam Extremities Exam: Normal Capillary Refill. absent: Calf Tenderness, Pedal Edema Additional comments: Left lower extremity- Left medial hallux ulceration with dry necrotic base - Neurological Exam Neurological Exam: Alert, Awake, Oriented x3 Assessment and Plan (1) Osteomyelitis Status: Acute (2) PVD (peripheral vascular disease) Status: Acute (3) Acute kidney injury Status: Acute - Assessment and Plan (Free Text) Assessment: 66 y.o. female with hx of Peripheral vascular disease admitted for osteomyelitis POD #8 left lower leg revascularization #Acute decompensated Systolic Heart Failure- EF 20% -Reduce afterload and heart rate, Coreg 6.25mg PO, Hydralazine 25mg TID, and Isosorbid Mononitrate 60mg -Monitor I/O's -c/w Bumex 1mg PO BID will consider once daily dosing in the a.m. -Improving #Acute Kidney Injury- Creatinine 1.9 today -Continue Bumex 1mg PO BID will consider once daily dosing in the a.m -Improving # Anemia, Acute- improving s/p PRBC and I.V. Venofer -H/H today 8.6/25.4 -I.V. venofer 5 days completed -consider hemolytic anemia- [place] test, haptoglobin, LFT, Total bilirubin -[place] test + -Ferritin WNL, TIBC WNL, IRon 24, Reticulocyte 3.4, B-12 and Folate WNL -FOBT x 2 negative -F/u CBC #Osteomyelitis, Acute -Pt. to the O.R. when medically stable for wound resection -Podiatry on board #Transaminitis, Resolved -AST, ALT wnl # Peripheral Vascular Disease- POD #3 Left lower leg revascularization - Revascularization complete at [place] -Monitor pedal pulses daily -PT/OT # Diabetes Mellitus Type 2 -basal levimir 12 units at night -2 UNITS Lantus will be increased to 4 units with meals #Hypertension -c/w current management -Metoprolol 25 mg Q6 -Coreg 6.25mg Q12 -Misha inhibitor stopped for now # Hyperlipidemia -Continue home meds: atorvastatin # DVT prophylaxis -Heparin 5000 units SQ
--- NOTE | 2017-06-06 13:59 | CP.PCM.PN ---
Subjective - Date & Time of Evaluation Date of Evaluation: 06/06/17 Time of Evaluation: 13:56 - Subjective Subjective: pt appears better. no complaints. cr 1.9, improved but not at baseline at this point. she is clinically out of heart failure. Objective - Vital Signs/Intake and Output Vital Signs (last 24 hours): Temp Pulse Resp BP Pulse Ox 97.7 F 82 20 150/70 94 L 06/06/17 08:29 06/06/17 08:29 06/06/17 08:29 06/06/17 12:34 06/06/17 08:29 Intake and Output: 06/06/17 06/06/17 06:59 18:59 Intake Total 200 Output Total 600 Balance -400 - Medications Medications: Current Medications Acetaminophen (Tylenol 325mg Tab) 650 mg PO Q6 PRN PRN Reason: Pain, moderate (4-7) Last Admin: 06/06/17 13:04 Dose: 650 mg Aspirin (Aspirin Chewable) 81 mg PO DAILY [facility] Last Admin: 06/06/17 09:06 Dose: 81 mg Atorvastatin Calcium (Lipitor) 40 mg PO HS [facility] Last Admin: 06/05/17 22:15 Dose: 40 mg Carvedilol (Coreg) 6.25 mg PO Q12 [facility] Last Admin: 06/06/17 09:06 Dose: 6.25 mg Clopidogrel Bisulfate (Plavix) 75 mg PO DAILY [facility] Last Admin: 06/06/17 09:06 Dose: 75 mg Heparin Sodium (Porcine) (Heparin) 5,000 units SC Q8 [facility] PRN Reason: Protocol Last Admin: 06/06/17 09:04 Dose: 5,000 units Hydralazine HCl (Apresoline) 25 mg PO TID [facility] Last Admin: 06/06/17 12:34 Dose: 25 mg Iron Sucrose 200 mg/ Sodium (Chloride) 110 mls @ 110 mls/hr IVPB 1700 [facility] Last Admin: 06/05/17 19:13 Dose: 110 mls/hr Piperacillin Sod/Tazobactam (Sod 2.25 gm/ Sodium Chloride) 100 mls @ 100 mls/ hr IVPB Q6H [facility] Last Admin: 06/06/17 05:43 Dose: 100 mls/hr Insulin Detemir (Levemir) 12 units SC [facility] Last Admin: 08/12/17 22:18 Dose: 12 unit Insulin Human Lispro (Humalog) 2 units SC [facility] Last Admin: 06/06/17 12:35 Dose: 2 units Insulin Human Regular (Humulin R) 0 units SC [facility] PRN Reason: Protocol Last Admin: 06/06/17 12:35 Dose: Not Given Isosorbide Mononitrate (Imdur) 60 mg PO DAILY [facility] Last Admin: 06/06/17 09:05 Dose: 60 mg Lidocaine (Lidoderm) 2 ea TD DAILY [facility] Last Admin: 06/06/17 09:08 Dose: 2 ea Mirtazapine (Remeron) 7.5 mg PO HS [facility] Last Admin: 06/05/17 22:14 Dose: 7.5 mg - Labs Labs: 06/06/17 05:30 06/06/17 05:30 PT 13.1 Seconds (9.8-13.1) 05/20/17 06:00 INR 1.2 (0.9-1.2) 05/20/17 06:00 APTT 34.8 Seconds (25.6-37.1) 05/20/17 06:00 Assessment and Plan (1) Cardiomyopathy, dilated Status: Acute (2) Systolic and diastolic CHF, acute on chronic Status: Acute (3) Volume overload Status: Acute (4) PVD (peripheral vascular disease) Status: Acute (5) SOB (shortness of breath) Status: Acute (6) Hx of myocardial infarction Status: Chronic (7) History of CVA (cerebrovascular accident) Status: Chronic (8) HTN (hypertension) Status: Chronic (9) Dyslipidemia Status: Chronic (10) History of tobacco abuse Status: Chronic (11) Osteomyelitis Status: Acute (12) Diabetic foot ulcer Status: Acute (13) Uncontrolled diabetes mellitus Status: Acute - Assessment and Plan (Free Text) Plan: PT MAY PROCEED TO OR FOR ORTHO SURGERY. I RECOMMEND VERY GENTLE HYDRATION INTRA AND WARREN OP. PTS EF IS 15% AND SHE CANNOT HANDLE MUCH VOLUME. ADDITIONALLY, ANY BLOOD PRODUCTS GIVEN SHOULD BE FOLLOWED WITH DIURETICS [facility]. USE METOPROLOL IV TO CONTROL HR AND BP. LIKELY WILL NEED POST OP DIURESIS. 75 MIN TOTAL CARE TIME.
--- NOTE | 2017-06-06 14:04 | CP.PCM.PN ---
Subjective - Date & Time of Evaluation Date of Evaluation: 06/06/17 Time of Evaluation: 12:30 - Subjective Subjective: Denies shortness of breath; reports feeling depressed; Objective - Vital Signs/Intake and Output Vital Signs (last 24 hours): Temp Pulse Resp BP Pulse Ox 97.7 F 82 20 150/70 94 L 06/06/17 08:29 06/06/17 08:29 06/06/17 08:29 06/06/17 12:34 06/06/17 08:29 Intake and Output: 06/06/17 06/06/17 06:59 18:59 Intake Total 200 Output Total 600 Balance -400 - Medications Medications: Current Medications Acetaminophen (Tylenol 325mg Tab) 650 mg PO Q6 PRN PRN Reason: Pain, moderate (4-7) Last Admin: 06/06/17 13:04 Dose: 650 mg Aspirin (Aspirin Chewable) 81 mg PO DAILY [facility] Last Admin: 06/06/17 09:06 Dose: 81 mg Atorvastatin Calcium (Lipitor) 40 mg PO HS [facility] Last Admin: 06/05/17 22:15 Dose: 40 mg Carvedilol (Coreg) 6.25 mg PO Q12 [facility] Last Admin: 06/06/17 09:06 Dose: 6.25 mg Clopidogrel Bisulfate (Plavix) 75 mg PO DAILY [facility] Last Admin: 06/06/17 09:06 Dose: 75 mg Heparin Sodium (Porcine) (Heparin) 5,000 units SC Q8 [facility] PRN Reason: Protocol Last Admin: 06/06/17 09:04 Dose: 5,000 units Hydralazine HCl (Apresoline) 25 mg PO TID [facility] Last Admin: 06/06/17 12:34 Dose: 25 mg Iron Sucrose 200 mg/ Sodium (Chloride) 110 mls @ 110 mls/hr IVPB 1700 [facility] Last Admin: 06/05/17 19:13 Dose: 110 mls/hr Piperacillin Sod/Tazobactam (Sod 2.25 gm/ Sodium Chloride) 100 mls @ 100 mls/ hr IVPB Q6H [facility] Last Admin: 06/06/17 05:43 Dose: 100 mls/hr Insulin Detemir (Levemir) 12 units SC HS [facility] Last Admin: 06/05/17 22:18 Dose: 12 unit Insulin Human Lispro (Humalog) 2 units SC [facility] Last Admin: 06/06/17 12:35 Dose: 2 units Insulin Human Regular (Humulin R) 0 units SC [facility] PRN Reason: Protocol Last Admin: 06/06/17 12:35 Dose: Not Given Isosorbide Mononitrate (Imdur) 60 mg PO DAILY [facility] Last Admin: 06/06/17 09:05 Dose: 60 mg Lidocaine (Lidoderm) 2 ea TD DAILY [facility] Last Admin: 06/06/17 09:08 Dose: 2 ea Mirtazapine (Remeron) 7.5 mg PO HS [facility] Last Admin: 06/05/17 22:14 Dose: 7.5 mg - Labs Labs: 06/06/17 05:30 06/06/17 05:30 PT 13.1 Seconds (9.8-13.1) 05/20/17 06:00 INR 1.2 (0.9-1.2) 05/20/17 06:00 APTT 34.8 Seconds (25.6-37.1) 05/20/17 06:00 - Constitutional Appears: Well, No Acute Distress - Head Exam Head Exam: NORMAL INSPECTION - Eye Exam Eye Exam: Normal appearance. absent: Scleral icterus - ENT Exam ENT Exam: Mucous Membranes Moist - Respiratory Exam Respiratory Exam: NORMAL BREATHING PATTERN. absent: Respiratory Distress Additional comments: mild basilar rales; - Cardiovascular Exam Cardiovascular Exam: +S1, +S2 - GI/Abdominal Exam GI & Abdominal Exam: Soft. absent: Distended, Tenderness - Extremities Exam Additional comments: Mild lower leg edema; - Neurological Exam Neurological Exam: Alert, Awake - Skin Skin Exam: Normal Color, Warm. absent: Cyanosis Assessment and Plan (1) Acute renal failure Assessment & Plan: Resolving; due to contrast nephropathy; halt in improvement in serum creatinine ; -hold pm dose of diuretics; re-assess tomorrow morning; should restart with less potent diuretic dose (lasix 20 mg PO); if going for OR tomorrow, should hold off on diuretics; better to keep volume replete to avoid hypotension during anesthesia; Status: Acute (2) Cardiomyopathy, dilated Assessment & Plan: Stable volume status; diuretic being held temporarily as above; re-assess tomorrow; Status: Acute (3) Osteomyelitis Assessment & Plan: On zosyn 2.25 g q6h, correctly dosed for renal insufficiency; Status: Acute (4) PVD (peripheral vascular disease) Status: Acute (5) HTN (hypertension) Assessment & Plan: BP low/normal; on CHF meds; holding pm diuretic dose; Status: Chronic (6) CKD (chronic kidney disease) Status: Chronic (7) Anemia Assessment & Plan: Hgb relatively stable; continue IV iron; Status: Acute
--- NOTE | 2017-06-06 15:17 | CP.PCM.PCO ---
Physician Communication Note - Physician Communication Note Physician Communication Note: Patient is medically stable for podiatric procedure in the AM
[2017-06-06 17:49] LABS: RBC URINE 2 /hpf (0-3); URINE BILIRUBIN NEGATIVE (NEGATIVE); URINE BLOOD SMALL (NEGATIVE); URINE COLOR YELLOW (YELLOW); URINE GLUCOSE (UA) NEG (Normal); URINE KETONE NEGATIVE (NEGATIVE); URINE LEUKOCYTE ESTERASE SMALL Leu/uL (Negative); URINE PROTEIN 30 mg/dL (NEGATIVE); URINE UROBILINOGEN 0.2-1.0 mg/dL (0.2-1.0); WBC URINE 6 /hpf (0-5)
[2017-06-06] MEDS: Insulin Detemir 100 Units/ml Inj SC SCH (21:48)
[2017-06-07 06:46] LABS: MEAN CELL VOLUME 85.6 fl (81.0-99.0); MEAN CORPUSCULAR HEMOGLOBIN 27.9 pg (27.0-31.0); MEAN CORPUSCULAR HGB CONC 32.6 g/dL (33.0-37.0); RED CELL DISTRIBUTION WIDTH 17.4 % (11.5-14.5); WHITE BLOOD COUNT 9.1 K/uL (4.8-10.8)
[2017-06-07 06:56] LABS: PARTIAL THROMBOPLASTIN TIME 43.6 Seconds (25.6-37.1)
[2017-06-07 07:00] LABS: BILIRUBIN,TOTAL 0.5 mg/dl (0.2-1.3); CALCIUM 9.1 mg/dL (8.4-10.2); POTASSIUM 3.9 MMOL/L (3.6-5.0); TOTAL PROTEIN 6.3 G/DL (6.3-8.2)
--- NOTE | 2017-06-07 08:23 | CP.PCM.PN ---
Subjective - Date & Time of Evaluation Date of Evaluation: 06/07/17 Time of Evaluation: 08:21 - Subjective Subjective: 66 year old female with PMHx of HTN, DM, PA, CVA, PA, PVD seen at bedside for left medial hallux ulceration and osteomyelitis of left hallux and tibial sesamoid 11 days s/p revascularization of left leg. She is seen resting comfortably in bed, NAD, and AA0x3. No acute events overnight. States her SOB is improving. She reports no pain at the site of ulceration. She denies n/v/cp/ chills or f. Objective - Vital Signs/Intake and Output Vital Signs (last 24 hours): Temp Pulse Resp BP Pulse Ox 98.5 F 76 20 107/67 97 06/07/17 07:36 06/07/17 07:36 06/07/17 07:36 06/07/17 07:36 06/07/17 07:36 Intake and Output: 06/07/17 06/07/17 06:59 18:59 Intake Total 100 Balance 100 - Medications Medications: Current Medications Acetaminophen (Tylenol 325mg Tab) 650 mg PO Q6 PRN PRN Reason: Pain, moderate (4-7) Last Admin: 06/06/17 13:04 Dose: 650 mg Aspirin (Aspirin Chewable) 81 mg PO DAILY [facility] Last Admin: 06/06/17 09:06 Dose: 81 mg Atorvastatin Calcium (Lipitor) 40 mg PO HS [facility] Last Admin: 06/06/17 21:48 Dose: 40 mg Carvedilol (Coreg) 6.25 mg PO Q12 [facility] Last Admin: 06/06/17 20:40 Dose: 6.25 mg Clopidogrel Bisulfate (Plavix) 75 mg PO DAILY [facility] Last Admin: 06/06/17 09:06 Dose: 75 mg Heparin Sodium (Porcine) (Heparin) 5,000 units SC Q8 [facility] PRN Reason: Protocol Last Admin: 06/07/17 00:08 Dose: 5,000 units Hydralazine HCl (Apresoline) 25 mg PO TID [facility] Last Admin: 06/06/17 16:46 Dose: 25 mg Piperacillin Sod/Tazobactam (Sod 2.25 gm/ Sodium Chloride) 100 mls @ 100 mls/ hr IVPB Q6H [facility] Last Admin: 06/07/17 05:09 Dose: 100 mls/hr Insulin Detemir (Levemir) 12 units SC HS [facility] Last Admin: 06/06/17 21:48 Dose: 12 unit Insulin Human Lispro (Humalog) 4 units SC [facility] Last Admin: 06/06/17 21:52 Dose: Not Given Isosorbide Mononitrate (Imdur) 60 mg PO DAILY [facility] Last Admin: 06/06/17 09:05 Dose: 60 mg Lidocaine (Lidoderm) 2 ea TD DAILY [facility] Last Admin: 06/06/17 09:08 Dose: 2 ea Mirtazapine (Remeron) 7.5 mg PO HS [facility] Last Admin: 06/06/17 22:29 Dose: 7.5 mg - Labs Labs: 06/07/17 05:20 06/07/17 05:20 PT 12.9 Seconds (9.8-13.1) 06/07/17 05:20 INR 1.3 (0.9-1.2) H 06/07/17 05:20 APTT 43.6 Seconds (25.6-37.1) H 06/07/17 05:20 - Constitutional Appears: Non-toxic, No Acute Distress - Extremities Exam Additional comments: LE focused exam Vasc: DP/PT pulses palpable 1/4 b/l. CFT< 3 seconds to digits 1-5 b/l. Temperature gradient warm to warm from proximal to distal. Neuro: Epicritic and protective sensation grossly intact b/l Derm: Ulceration measuring approximately 1.4 cm x 1.5 cm x .2 cm with central dry necrotic base (70%) and fibrous (30%), slightly macerated rim. No drainage, purulence, or malodor noted. No streaking. Erythema rim noted to the periwound. No tunneling. Probe to bone. Ortho: Tenderness reports to left lower extremity at surgical site. No tenderness to palpation of left medial 1st met head - Neurological Exam Neurological Exam: Alert, Awake, Oriented x3 - Psychiatric Exam Psychiatric exam: Normal Affect, Normal Mood Assessment and Plan - Assessment and Plan (Free Text) Assessment: 66 year old female with L 1st metatarsal ulceration secondary to DM and L 1st metatarsal head and tibial sesamoid osteomyelitis POD #11 L leg revascularization. Plan: Patient seen and evaluated Plan discussed in detail with attending Dr. Reynoso Charts, labs and vitals reviewed (afebrile, WBC=9.1) Podiatry aware patient has NAI and CHF- improving Patient is cleared for surgery by medicine, cardiology, and nephrology standpoint Patient will go to surgery 06/09/17 at 7:45am for L ecosectomy of 1st metatarsal head and removal of tibial sesamoid Dressing changed; Ulcer dressed with xeroform, 4x4, cling Continue abx per ID Continue pain management per medicine Podiatry will continue to follow while in house
[2017-06-07] MEDS: Insulin Lispro (humaLOG) 100 Units/ml Inj SC SCH ×4 (08:27→21:31)
[2017-06-07] MEDS: Lidocaine 5% Patch TD SCH (08:28)
--- NOTE | 2017-06-07 12:25 | CP.PCM.PN ---
Subjective - Date & Time of Evaluation Date of Evaluation: 06/07/17 Time of Evaluation: 06:40 - Subjective Subjective: Pt seen and examined at the bedside this morning. Seen lying in bed comfortably. States SOB is the same as yesterday. Complains of feeling anxious at night and cannot sleep because she is worried about her operation. Denies chest pain, palpatations, fever, chills, n/v/d, dysuria. Objective - Vital Signs/Intake and Output Vital Signs (last 24 hours): Temp Pulse Resp BP Pulse Ox 98.5 F 76 20 107/67 97 06/07/17 09:00 06/07/17 08:26 06/07/17 07:36 06/07/17 08:26 06/07/17 07:36 Intake and Output: 06/07/17 06/07/17 06:59 18:59 Intake Total 100 Balance 100 - Medications Medications: Current Medications Acetaminophen (Tylenol 325mg Tab) 650 mg PO Q6 PRN PRN Reason: Pain, moderate (4-7) Last Admin: 06/06/17 13:04 Dose: 650 mg Aspirin (Aspirin Chewable) 81 mg PO DAILY [facility] Last Admin: 06/07/17 08:26 Dose: 81 mg Atorvastatin Calcium (Lipitor) 40 mg PO HS [facility] Last Admin: 06/06/17 21:48 Dose: 40 mg Carvedilol (Coreg) 6.25 mg PO Q12 [facility] Last Admin: 06/07/17 08:26 Dose: 6.25 mg Clopidogrel Bisulfate (Plavix) 75 mg PO DAILY [facility] Last Admin: 06/07/17 08:28 Dose: 75 mg Gabapentin (Neurontin) 100 mg PO BID [facility] Hydralazine HCl (Apresoline) 25 mg PO TID [facility] Last Admin: 06/07/17 08:26 Dose: 25 mg Piperacillin Sod/Tazobactam (Sod 2.25 gm/ Sodium Chloride) 100 mls @ 100 mls/ hr IVPB Q6H [facility] Last Admin: 06/07/17 05:09 Dose: 100 mls/hr Insulin Detemir (Levemir) 12 units SC HS [facility] Last Admin: 06/06/17 21:48 Dose: 12 unit Insulin Human Lispro (Humalog) 4 units SC ACHS [facility] Last Admin: 06/07/17 08:27 Dose: 4 u Isosorbide Mononitrate (Imdur) 60 mg PO DAILY [facility] Last Admin: 06/07/17 08:28 Dose: 60 mg Lidocaine (Lidoderm) 2 ea TD DAILY [facility] Last Admin: 06/07/17 08:28 Dose: 2 ea Mirtazapine (Remeron) 7.5 mg PO HS [facility] Last Admin: 06/06/17 22:29 Dose: 7.5 mg - Labs Labs: 06/07/17 05:20 06/07/17 05:20 PT 12.9 Seconds (9.8-13.1) 06/07/17 05:20 INR 1.3 (0.9-1.2) H 06/07/17 05:20 APTT 43.6 Seconds (25.6-37.1) H 06/07/17 05:20 - Constitutional Appears: Well, No Acute Distress - Respiratory Exam Respiratory Exam: Rales. absent: Accessory Muscle Use, Wheezes Additional comments: Bibasilar rales - Cardiovascular Exam Cardiovascular Exam: REGULAR RHYTHM, +S1, +S2. absent: Murmur - GI/Abdominal Exam GI & Abdominal Exam: Soft. absent: Tenderness - Neurological Exam Neurological Exam: Alert, Awake, Oriented x3 - Psychiatric Exam Psychiatric exam: Anxious Assessment and Plan (1) Osteomyelitis Status: Acute (2) PVD (peripheral vascular disease) Status: Acute (3) Acute kidney injury Status: Acute - Assessment and Plan (Free Text) Assessment: 66 y.o. female with hx of Peripheral vascular disease admitted for osteomyelitis POD #8 left lower leg revascularization #Acute Kidney Injury- Creatinine 1.9 today -Crea 1.6 today -Cleared by Nephrology for OR #Acute decompensated Systolic Heart Failure- EF 20%, Resolving -Reduce afterload and heart rate, Coreg 6.25mg PO, Hydralazine 25mg TID, and Isosorbid Mononitrate 60mg -Monitor I/O's -Bumex D/C by nephrology as pt BP is in the 110/10 -Cleared by cardiology for OR. As per Dr. Mcdaniel, pt may need to be diuresed post operation to prevent fluid overload # Anemia, Acute- improving s/p PRBC and I.V. Venofer -H/H today 8.5/ -I.V. venofer 5 days completed -consider hemolytic anemia- [place] test, haptoglobin, LFT, Total bilirubin -[place] test + -Ferritin WNL, TIBC WNL, IRon 24, Reticulocyte 3.4, B-12 and Folate WNL -FOBT x 2 negative -F/u CBC #Osteomyelitis, Acute -Podoatry- Pt scheduled to go to OR Wednesday am -C/W Zosyn (Day 14th) #Transaminitis, Resolved -AST, ALT wnl # Peripheral Vascular Disease- POD #3 Left lower leg revascularization - Revascularization complete at [place] -Monitor pedal pulses daily -PT/OT # Diabetes Mellitus Type 2 -Levemir 12 daily, Lispro 4 units with meals -neuropathy- Gabapentin 100 BID #Hypertension -c/w current management -Coreg 6.25mg Q12 -Misha inhibitor stopped for now # Hyperlipidemia -Continue home meds: atorvastatin # DVT prophylaxis -Heparin 5000 units SQ= DC'ed for OR tomorrow
--- NOTE | 2017-06-07 20:43 | CP.PCM.PN ---
Objective - Vital Signs/Intake and Output Vital Signs (last 24 hours): Temp Pulse Resp BP Pulse Ox 98.5 F 71 20 98/58 L 98 06/07/17 17:00 06/07/17 15:55 06/07/17 15:55 06/07/17 15:55 06/07/17 15:55 - Medications Medications: Current Medications Acetaminophen (Tylenol 325mg Tab) 650 mg PO Q6 PRN PRN Reason: Pain, moderate (4-7) Last Admin: 06/06/17 13:04 Dose: 650 mg Aspirin (Aspirin Chewable) 81 mg PO DAILY [facility] Last Admin: 06/07/17 08:26 Dose: 81 mg Atorvastatin Calcium (Lipitor) 40 mg PO HS [facility] Last Admin: 06/06/17 21:48 Dose: 40 mg Carvedilol (Coreg) 6.25 mg PO Q12 [facility] Last Admin: 06/07/17 08:26 Dose: 6.25 mg Clopidogrel Bisulfate (Plavix) 75 mg PO DAILY [facility] Last Admin: 06/07/17 08:28 Dose: 75 mg Gabapentin (Neurontin) 100 mg PO BID [facility] Last Admin: 06/07/17 17:43 Dose: 100 mg Hydralazine HCl (Apresoline) 25 mg PO TID [facility] Last Admin: 06/07/17 16:42 Dose: Not Given Piperacillin Sod/Tazobactam (Sod 2.25 gm/ Sodium Chloride) 100 mls @ 100 mls/ hr IVPB Q6H [facility] Last Admin: 06/07/17 17:40 Dose: 100 mls/hr Insulin Detemir (Levemir) 12 units SC HS [facility] Last Admin: 06/06/17 21:48 Dose: 12 unit Insulin Human Lispro (Humalog) 4 units SC ACHS [facility] Last Admin: 06/07/17 17:41 Dose: 4 u Isosorbide Mononitrate (Imdur) 60 mg PO DAILY [facility] Last Admin: 06/07/17 08:28 Dose: 60 mg Lidocaine (Lidoderm) 2 ea TD DAILY [facility] Last Admin: 06/07/17 08:28 Dose: 2 ea Mirtazapine (Remeron) 7.5 mg PO HS [facility] Last Admin: 06/06/17 22:29 Dose: 7.5 mg - Labs Labs: 06/07/17 05:20 06/07/17 05:20 PT 12.9 Seconds (9.8-13.1) 06/07/17 05:20 INR 1.3 (0.9-1.2) H 06/07/17 05:20 APTT 43.6 Seconds (25.6-37.1) H 06/07/17 05:20 Assessment and Plan (1) Acute renal failure Status: Acute (2) Cardiomyopathy, dilated Status: Acute (3) Osteomyelitis Status: Acute (4) PVD (peripheral vascular disease) Status: Acute (5) HTN (hypertension) Status: Chronic (6) CKD (chronic kidney disease) Status: Chronic (7) Anemia Status: Acute
[2017-06-07] MEDS: Insulin Detemir 100 Units/ml Inj SC SCH (21:29)
--- NOTE | 2017-06-08 00:24 | CP.PCM.PN ---
Objective - Vital Signs/Intake and Output Vital Signs (last 24 hours): Temp Pulse Resp BP Pulse Ox 98.5 F 77 20 118/69 98 06/07/17 17:00 06/07/17 21:19 06/07/17 15:55 06/07/17 21:19 06/07/17 15:55 - Medications Medications: Current Medications Acetaminophen (Tylenol 325mg Tab) 650 mg PO Q6 PRN PRN Reason: Pain, moderate (4-7) Last Admin: 06/06/17 13:04 Dose: 650 mg Aspirin (Aspirin Chewable) 81 mg PO DAILY [facility] Last Admin: 06/07/17 08:26 Dose: 81 mg Atorvastatin Calcium (Lipitor) 40 mg PO HS [facility] Last Admin: 06/07/17 21:18 Dose: 40 mg Carvedilol (Coreg) 6.25 mg PO Q12 [facility] Last Admin: 06/07/17 21:19 Dose: 6.25 mg Clopidogrel Bisulfate (Plavix) 75 mg PO DAILY [facility] Last Admin: 06/07/17 08:28 Dose: 75 mg Gabapentin (Neurontin) 100 mg PO BID [facility] Last Admin: 06/07/17 17:43 Dose: 100 mg Hydralazine HCl (Apresoline) 25 mg PO TID [facility] Last Admin: 06/07/17 16:42 Dose: Not Given Piperacillin Sod/Tazobactam (Sod 2.25 gm/ Sodium Chloride) 100 mls @ 100 mls/ hr IVPB Q6H [facility] Last Admin: 06/07/17 23:30 Dose: 100 mls/hr Insulin Detemir (Levemir) 12 units SC HS [facility] Last Admin: 06/07/17 21:29 Dose: 12 unit Insulin Human Lispro (Humalog) 4 units SC ACHS [facility] Last Admin: 06/07/17 21:31 Dose: 4 u Isosorbide Mononitrate (Imdur) 60 mg PO DAILY [facility] Last Admin: 06/07/17 08:28 Dose: 60 mg Lidocaine (Lidoderm) 2 ea TD DAILY [facility] Last Admin: 06/07/17 08:28 Dose: 2 ea Mirtazapine (Remeron) 7.5 mg PO HS [facility] Last Admin: 06/07/17 21:20 Dose: 7.5 mg - Labs Labs: 06/07/17 05:20 06/07/17 05:20 PT 12.9 Seconds (9.8-13.1) 06/07/17 05:20 INR 1.3 (0.9-1.2) H 06/07/17 05:20 APTT 43.6 Seconds (25.6-37.1) H 06/07/17 05:20 Assessment and Plan (1) Cardiomyopathy, dilated Status: Acute (2) Systolic and diastolic CHF, acute on chronic Status: Acute (3) Volume overload Status: Acute (4) PVD (peripheral vascular disease) Status: Acute (5) SOB (shortness of breath) Status: Acute (6) Hx of myocardial infarction Status: Chronic (7) History of CVA (cerebrovascular accident) Status: Chronic (8) HTN (hypertension) Status: Chronic (9) Dyslipidemia Status: Chronic (10) History of tobacco abuse Status: Chronic (11) Osteomyelitis Status: Acute (12) Diabetic foot ulcer Status: Acute (13) Uncontrolled diabetes mellitus Status: Acute
[2017-06-08 06:11] LABS: HEMATOCRIT 26.2 % (34.0-47.0); MEAN CELL VOLUME 86.5 fl (81.0-99.0); MEAN CORPUSCULAR HEMOGLOBIN 28.5 pg (27.0-31.0); RED CELL DISTRIBUTION WIDTH 17.9 % (11.5-14.5); WHITE BLOOD COUNT 8.6 K/uL (4.8-10.8)
[2017-06-08 06:25] LABS: ALB/GLOB RATIO 0.9 (1.0-2.1); BILIRUBIN,TOTAL 0.4 mg/dl (0.2-1.3); CALCIUM 8.6 mg/dL (8.4-10.2); TOTAL PROTEIN 6.1 G/DL (6.3-8.2)
--- NOTE | 2017-06-08 06:31 | CP.PCM.PN ---
Subjective - Date & Time of Evaluation Date of Evaluation: 06/08/17 Time of Evaluation: 06:28 - Subjective Subjective: 66 year old female with PMHx of HTN, DM, LA, CVA, LA, PVD seen at bedside for left medial hallux ulceration and osteomyelitis of left hallux and tibial sesamoid 12 days s/p revascularization of left leg. She is seen resting comfortably in bed, NAD, and AA0x3. States her SOB is improving. She reports no pain at the site of ulceration. She states that she feels that she is constipated. She denies n/v/cp/chills or f. Patient is aware that she is going for surgery to to remove all infected bone including nonviable tissue of the left foot at 7:45am today in the OR. She reports not eating or drinking anything since midnight. Dressing is c/d/i Objective - Vital Signs/Intake and Output Vital Signs (last 24 hours): Temp Pulse Resp BP Pulse Ox 98.7 F 79 18 121/69 98 06/08/17 00:00 06/08/17 00:00 06/08/17 00:00 06/08/17 00:00 06/08/17 00:00 - Medications Medications: Current Medications Acetaminophen (Tylenol 325mg Tab) 650 mg PO Q6 PRN PRN Reason: Pain, moderate (4-7) Last Admin: 06/06/17 13:04 Dose: 650 mg Aspirin (Aspirin Chewable) 81 mg PO DAILY [facility] Last Admin: 06/07/17 08:26 Dose: 81 mg Atorvastatin Calcium (Lipitor) 40 mg PO HS [facility] Last Admin: 06/07/17 21:18 Dose: 40 mg Carvedilol (Coreg) 6.25 mg PO Q12 [facility] Last Admin: 06/07/17 21:19 Dose: 6.25 mg Clopidogrel Bisulfate (Plavix) 75 mg PO DAILY [facility] Last Admin: 06/07/17 08:28 Dose: 75 mg Gabapentin (Neurontin) 100 mg PO BID [facility] Last Admin: 06/07/17 17:43 Dose: 100 mg Hydralazine HCl (Apresoline) 25 mg PO TID [facility] Last Admin: 06/07/17 16:42 Dose: Not Given Piperacillin Sod/Tazobactam (Sod 2.25 gm/ Sodium Chloride) 100 mls @ 100 mls/ hr IVPB Q6H [facility] Last Admin: 06/08/17 05:19 Dose: 100 mls/hr Insulin Detemir (Levemir) 12 units SC HS [facility] Last Admin: 06/07/17 21:29 Dose: 12 unit Insulin Human Lispro (Humalog) 4 units SC ACHS [facility] Last Admin: 06/07/17 21:31 Dose: 4 u Isosorbide Mononitrate (Imdur) 60 mg PO DAILY [facility] Last Admin: 06/07/17 08:28 Dose: 60 mg Lidocaine (Lidoderm) 2 ea TD DAILY [facility] Last Admin: 06/07/17 08:28 Dose: 2 ea Mirtazapine (Remeron) 7.5 mg PO HS [facility] Last Admin: 06/07/17 21:20 Dose: 7.5 mg - Labs Labs: 06/08/17 05:00 06/08/17 05:00 PT 12.9 Seconds (9.8-13.1) 06/07/17 05:20 INR 1.3 (0.9-1.2) H 06/07/17 05:20 APTT 43.6 Seconds (25.6-37.1) H 06/07/17 05:20 - Constitutional Appears: Well, Non-toxic, No Acute Distress - Extremities Exam Additional comments: Dressing is c/d/i without strikethrough noted. - Neurological Exam Neurological Exam: Alert, Awake, Oriented x3 - Psychiatric Exam Psychiatric exam: Normal Affect, Normal Mood Assessment and Plan - Assessment and Plan (Free Text) Assessment: 66 year old female with L 1st metatarsal ulceration secondary to DM and L 1st metatarsal head and tibial sesamoid osteomyelitis POD #12 L leg revascularization. Plan: Pt was seen and examined at bedside Pt NPO status was confirmed All Pre-op testing and clearance was in the chart Pt has exhausted all conservative treatment at this time and is opting for surgical intervention Pt was explained procedure and post-operative course All pt's questions were answered to satisfaction No guarantees were made Pt understands all risks, benefits and complications of procedure Pt will follow-up with Dr. Reynoso
[2017-06-08 06:49] LABS: PARTIAL THROMBOPLASTIN TIME 26.5 Seconds (25.6-37.1)
[2017-06-08] MEDS ORDERED: Propofol 10 mg/ml Inj (20 ML) ONE (07:08)
[2017-06-08] MEDS ORDERED: ePHEDrine 50 mg/ml Inj ONE (07:08)
[2017-06-08] MEDS ORDERED: Phenylephrine 10 mg/ml Inj ONE ×2 (07:09→07:38)
[2017-06-08] MEDS ORDERED: Succinylcholine 200 mg/10 ml Inj IV ONE (07:09)
[2017-06-08] MEDS ORDERED: Rocuronium 10 mg/ml (5 ml) ONE (07:09)
[2017-06-08] MEDS ORDERED: Bupivacaine 0.5% Inj(30mL) ONE (07:25)
[2017-06-08] MEDS ORDERED: Lidocaine 1% Inj (20ml) ONE (07:25)
[2017-06-08] MEDS ORDERED: Sodium Chloride 0.9% 100 ML IV ONE (07:55)
[2017-06-08] MEDS: Insulin Lispro (humaLOG) 100 Units/ml Inj SC SCH ×4 (07:55→22:43)
[2017-06-08] MEDS ORDERED: Midazolam 2 MG/2 ML VIAL ONE ×2 (08:04→08:17)
[2017-06-08] MEDS ORDERED: Etomidate 20 mg/10ml Inj IV ONE (08:05)
[2017-06-08] MEDS: Lidocaine 5% Patch TD SCH (09:30)
[2017-06-08] MEDS ORDERED: Oxycodone/Acetaminophen 5/325 mg Tab PO PRN (09:34)
--- NOTE | 2017-06-08 09:40 | PCM.SURG1 ---
Surgeon's Initial Post Op Note - Surgeon's Notes Surgeon: Dr. Jun Reynoso, DPM Petal Cutter: Dr. Alexander Brizuela PGY1, Dr. Lanie May PGY1 Type of Anesthesia: IV Sedation, Local Anesthesia Administered By: Dr. Alfredo Pre-Operative Diagnosis: Osteomyelitis left first metatarsal head and left tibial sesamoid Operative Findings: None. M- 3-0 vicryl, 3-0 nylon. I- None Post-Operative Diagnosis: Same Operation Performed: Partial resection of left first metatarsal head and proximal phalanx base. Excision of tibial sesamoid and removal of all nonviable tissue Specimen/Specimens Removed: Partial left first metatarsal head and tibial sesamoid. Partial left proximal phalanx base Estimated Blood Loss: EBL {In ML}: 50 Blood Products Given: N/A Drains Used: No Drains Post-Op Condition: Good Date of Surgery/Procedure: 06/08/17 Time of Surgery/Procedure: 09:30
[2017-06-08] MEDS: Oxycodone/Acetaminophen 5/325 mg Tab PO PRN ×2 (12:16→22:49)
--- NOTE | 2017-06-08 12:21 | CP.PCM.PN ---
Subjective - Date & Time of Evaluation Date of Evaluation: 06/08/17 Time of Evaluation: 06:40 - Subjective Subjective: Patient seen and evaluated post- surgical procedure. Seen lying in bed comfortably. Complains of constipation and no BM for the past 2-3 days. No complains of leg pain. No other concerns. States SOB is mild and the same as yesterday. Denies CP, n/v/d, dysuria, fever, chills. Objective - Vital Signs/Intake and Output Vital Signs (last 24 hours): Temp Pulse Resp BP Pulse Ox 98.7 F 69 20 123/71 98 06/08/17 11:00 06/08/17 11:00 06/08/17 11:00 06/08/17 11:00 06/08/17 11:00 Intake and Output: 06/08/17 06/08/17 06:59 18:59 Intake Total 50 Balance 50 - Medications Medications: Current Medications Acetaminophen (Tylenol 325mg Tab) 650 mg PO Q6 PRN PRN Reason: Pain, moderate (4-7) Last Admin: 06/06/17 13:04 Dose: 650 mg Acetaminophen (Tylenol 325mg Tab) 650 mg PO Q4 PRN PRN Reason: Pain, Mild (1-3) Aspirin (Aspirin Chewable) 81 mg PO DAILY [facility] Last Admin: 06/07/17 08:26 Dose: 81 mg Atorvastatin Calcium (Lipitor) 40 mg PO [facility] Last Admin: 06/07/17 21:18 Dose: 40 mg Carvedilol (Coreg) 6.25 mg PO Q12 [facility] Last Admin: 06/08/17 09:28 Dose: Not Given Clopidogrel Bisulfate (Plavix) 75 mg PO DAILY [facility] Last Admin: 06/07/17 08:28 Dose: 75 mg Gabapentin (Neurontin) 100 mg PO BID [facility] Last Admin: 06/08/17 09:31 Dose: Not Given Hydralazine HCl (Apresoline) 25 mg PO TID [facility] Last Admin: 06/08/17 09:28 Dose: Not Given Piperacillin Sod/Tazobactam (Sod 2.25 gm/ Sodium Chloride) 100 mls @ 100 mls/ hr IVPB Q6H [facility] Last Admin: 06/08/17 05:19 Dose: 100 mls/hr Insulin Detemir (Levemir) 12 units SC [facility] Last Admin: 06/07/17 21:29 Dose: 12 unit Insulin Human Lispro (Humalog) 4 units SC ACHS [facility] Last Admin: 06/08/17 07:55 Dose: Not Given Isosorbide Mononitrate (Imdur) 60 mg PO DAILY [facility] Last Admin: 06/08/17 09:30 Dose: Not Given Lidocaine (Lidoderm) 2 ea TD DAILY [facility] Last Admin: 06/08/17 09:30 Dose: Not Given Mirtazapine (Remeron) 7.5 mg PO HS [facility] Last Admin: 06/07/17 21:20 Dose: 7.5 mg Oxycodone/Acetaminophen (Percocet 5/325 Mg Tab) 1 tab PO Q4 PRN PRN Reason: Pain, moderate (4-7) Stop: 06/11/17 09:35 Last Admin: 06/08/17 12:16 Dose: 1 tab Oxycodone/Acetaminophen (Percocet 5/325 Mg Tab) 2 tab PO Q4 PRN PRN Reason: Pain, severe (8-10) Stop: 06/11/17 09:35 Senna/Docusate Sodium (Senokot S 50 Mg-8.6 Mg) 2 tab PO [facility] - Labs Labs: 06/08/17 05:00 06/08/17 05:00 PT 12.7 Seconds (9.8-13.1) 06/08/17 05:00 INR 1.2 (0.9-1.2) 06/08/17 05:00 APTT 26.5 Seconds (25.6-37.1) D 06/08/17 05:00 - Constitutional Appears: Well, Non-toxic, No Acute Distress - Respiratory Exam Additional comments: Bibasilar Rales Assessment and Plan (1) Osteomyelitis Status: Acute (2) PVD (peripheral vascular disease) Status: Acute (3) Acute kidney injury Status: Acute - Assessment and Plan (Free Text) Assessment: 66 y.o. female with hx of Peripheral vascular disease admitted for osteomyelitis POD #8 left lower leg revascularization #Osteomyelitis, Acute -Partial resection of Tarsal completed today in OR by Podiatry (06/08). -C/W Zosyn Day -Podiatry and ID on board -PT/OT Eval placed #Acute Decompensated Systolic Heart Failure- EF 20%, Resolving -Last Echo (06/10) EF <15-20% -Reduce afterload and heart rate, Coreg 6.25mg PO, Hydralazine 25mg TID, and Isosorbid Mononitrate 60mg -Monitor I/O's -Bumex D/C by nephrology as pt BP is in the 110/100. -Cleared by cardiology for OR. As per Dr. Mcdaniel, pt may need to be diuresed post operation to prevent fluid overload. -Examined patient's fluid status after surgery. No blood products or fluid administered. Pt is not currently fluid overloaded so we will re-evaluate need of diuresis in the am. ASA and Plavix to be resumed in the am #Acute Kidney Injury-Resolved -Crea 1.5 today, resolved -Cleared for nephrology #Constipation -Sennakot 2 tab PO qHS # Anemia, Acute- improving s/p PRBC and I.V. Venofer -H/H today stable -I.V. venofer 5 days completed -consider hemolytic anemia- Elgin test, haptoglobin, LFT, Total bilirubin -[place]gin test + -Ferritin WNL, TIBC WNL, IRon 24, Reticulocyte 3.4, B-12 and Folate WNL -FOBT x 2 negative -F/u CBC #Transaminitis, Resolved -AST, ALT wnl # Peripheral Vascular Disease- POD #3 Left lower leg revascularization - Revascularization complete at [facility] -Monitor pedal pulses daily -PT/OT # Diabetes Mellitus Type 2 -Levemir 12 daily, Lispro 4 units with meals -neuropathy- Gabapentin 100 BID #Hypertension -c/w current management -Coreg 6.25mg Q12 -Misha inhibitor stopped for now # Hyperlipidemia -Continue home meds: atorvastatin # DVT prophylaxis -Heparin 5000 units SQ= DC'ed for OR tomorrow
--- NOTE | 2017-06-08 14:34 | RAD ---
PROCEDURE: Left foot dated 06/08/2017 Two views of the left foot performed through a radiopaque splint. . HISTORY: s/p left foot surgery COMPARISON: Comparison made with prior study 05/19/2017 FINDINGS: BONES: Current study reveals apparent postoperative changes involving the distal 1/2 of the medial aspect left 1st metatarsal and proximal medial 1/4 of the proximal phalanx. Surrounding soft tissue swelling with what appears to represent a small amount of subcutaneous air. JOINTS: Joint spaces remain essentially unchanged SOFT TISSUES: Normal. OTHER FINDINGS: None. IMPRESSION: Postoperative changes involving the medial margins of the 1st metatarsal and 1st proximal phalanx as described.
[2017-06-08] MEDS: Docusate-Senna 50 mg-8.6 mg Tab PO SCH ×2 (17:00→22:43)
[2017-06-08] MEDS ORDERED: Sodium Chloride 0.9% 500 ML IV SCH (19:21)
--- NOTE | 2017-06-08 20:24 | OP ---
PROCEDURE DATE: 06/08/2017 SURGEON: Jun Reynoso DPM ASSISTANTS: Alexander Brizuela DPM, PGY1 and Lanie May DPM, PGY1 METAL MOULDER: Claudine Alfredo MD ANESTHESIA: IV sedation with local. PREOPERATIVE DIAGNOSES: Osteomyelitis of first metatarsal and left tibial sesamoid. POSTOPERATIVE DIAGNOSES: Osteomyelitis of first metatarsal and left tibial sesamoid. NAME OF PROCEDURE: 1. Partial resection of left first metatarsal head 2. Partial resection of left proximal phalanx base 3. Excision of left tibial sesamoid and all nonviable tissue. INDICATION: The patient is a 66-year-old female with the above diagnosis. The patient has exhausted all conservative treatment at this time and now requires surgical intervention. The patient signed the consent after careful explanation of all risks, benefits, complications, and alternatives for surgical procedure. No guarantees were given nor implied. N.p.o. status was confirmed prior to taking the patient to the operating room. PREPARATION: The patient was brought to the operating room and placed on the operating room table in a supine position. After induction of IV sedation, the patient received a total of 20 mL of 1:1 mixture of 0.5% Marcaine and 1% lidocaine plane in local block fashion to her left foot. Once local anesthesia was achieved, the left foot was then prepped and draped in usual sterile manner and the procedure was begun. No tourniquet was used during this procedure. DESCRIPTION OF PROCEDURE: Attention was then turned to the patient's left foot. Using a #15 blade a superficial longitudinal incision was made dorsomedially along the first ray extending from the level of the first metatarsal shaft to the level of the proximal metatarsal base. Exploration of the underlying tissue was conducted in order to identify and retract any identifiable neurovascular structures and tendons including extensor hallucis longus tendon and #15 blade was then used to dissect soft tissue down to the first metatarsal bone. Using a fresh #15 blade and freer elevator, all soft tissue were dissected off the bone both medially and laterally in order to adequately expose the medial portion of the first metatarsal head and distal shaft. Bone quality was then visually and manually assessed using the freer elevator and was deemed to be soft and necrotic. Utilizing an oscillating saw on power, the medial portion of the first metatarsal was resected from the middle of the first metatarsal head to the distal medial metatarsal shaft. All resected bone was excised from the surgical field and sent to pathology for examination. Attention was then turned to the base of the left first proximal phalanx. Utilizing an oscillating saw on power, the proximal-medial base of the phalanx was resected and excised from the surgical field and sent to pathology for examination. Attention was then turned to the left tibial sesamoid. Using a #15 blade and phalangeal clamp, all soft tissue was debrided off the tibial sesamoid and it was excised from the surgical field. The bone was also sent to pathology for examination. Attention was then turned to an ulceration found on the patient's medial left foot at the level of the metatarsophalangeal joint. Using a fresh #15 blade all nonviable tissue was excised from the ulcer site until healthy granular bleeding tissue was identified. Attention was then drawn to superficialhyperkeratotic tissue located on the lateral heel of the patient. Using a #15 blade, this tissue was excisionally debrided down to the level of subcutaneous tissue. Attention was then drawn back to the incision site at the dorsomedial aspect of the left foot. Utilizing a bulb syringe, the surgical site was copiously flushed with normal sterile saline. 3-0 Vicryl suture material was then used to close all deep tissue via simple knot sutures. 3-0 nylon suture material was then used to reapproximate all superficial tissue in an anatomically aligned and coapted manner using horizontal mattress knots. Using a wet sponge, the patient's foot was cleansed with normal saline and dried. The surgical site and both ulceration sites were then dressed with Xeroform gauze, Kerlix, and an Misha bandage. POSTOPERATIVE CONDITION: The patient tolerated the anesthesia and procedure well and was escorted to the recovery room with vital signs stable and neurovascular status intact to the left foot. Podiatry will continue to follow and monitor the patient while she remains in house. Alexander Brizuela DPM [facility]
[2017-06-08 20:41] LABS: URINE BILIRUBIN NEGATIVE (NEGATIVE); URINE BLOOD NEGATIVE (NEGATIVE); URINE COLOR YELLOW (YELLOW); URINE GLUCOSE (UA) 150 mg/dL (Normal); URINE KETONE NEGATIVE (NEGATIVE); URINE LEUKOCYTE ESTERASE MOD Leu/uL (Negative); URINE PROTEIN 100 mg/dL (NEGATIVE); URINE UROBILINOGEN 0.2-1.0 mg/dL (0.2-1.0); WBC URINE 38 /hpf (0-5)
[2017-06-08] MEDS: Insulin Detemir 100 Units/ml Inj SC SCH (22:41)
--- NOTE | 2017-06-08 23:54 | CP.PCM.PN ---
Subjective - Date & Time of Evaluation Date of Evaluation: 06/08/17 Time of Evaluation: 19:40 - Subjective Subjective: Patient reports chills; denies shortness of breath; Objective - Vital Signs/Intake and Output Vital Signs (last 24 hours): Temp Pulse Resp BP Pulse Ox 98.5 F 99 H 20 149/83 95 06/08/17 17:00 06/08/17 22:40 06/08/17 16:09 06/08/17 22:40 06/08/17 16:09 Intake and Output: 06/08/17 06/09/17 18:59 06:59 Intake Total 250 Balance 250 - Medications Medications: Current Medications Acetaminophen (Tylenol 325mg Tab) 650 mg PO Q6 PRN PRN Reason: Pain, moderate (4-7) Last Admin: 06/06/17 13:04 Dose: 650 mg Acetaminophen (Tylenol 325mg Tab) 650 mg PO Q4 PRN PRN Reason: Pain, Mild (1-3) Aspirin (Aspirin Chewable) 81 mg PO DAILY [facility] Last Admin: 06/07/17 08:26 Dose: 81 mg Atorvastatin Calcium (Lipitor) 40 mg PO HS [facility] Last Admin: 06/08/17 22:40 Dose: 40 mg Carvedilol (Coreg) 6.25 mg PO Q12 [facility] Last Admin: 06/08/17 22:40 Dose: 6.25 mg Clopidogrel Bisulfate (Plavix) 75 mg PO DAILY [facility] Last Admin: 06/07/17 08:28 Dose: 75 mg Gabapentin (Neurontin) 100 mg PO BID [facility] Last Admin: 06/08/17 16:59 Dose: 100 mg Hydralazine HCl (Apresoline) 25 mg PO TID [facility] Last Admin: 06/08/17 16:58 Dose: Not Given Piperacillin Sod/Tazobactam (Sod 2.25 gm/ Sodium Chloride) 100 mls @ 100 mls/ hr IVPB Q6H [facility] Last Admin: 06/08/17 17:52 Dose: 100 mls/hr Insulin Detemir (Levemir) 12 units SC [facility] Last Admin: 06/08/17 22:41 Dose: 12 unit Insulin Human Lispro (Humalog) 4 units SC [facility] Last Admin: 06/08/17 22:43 Dose: Not Given Isosorbide Mononitrate (Imdur) 60 mg PO DAILY [facility] Last Admin: 06/08/17 09:30 Dose: Not Given Lidocaine (Lidoderm) 2 ea TD DAILY [facility] Last Admin: 06/08/17 09:30 Dose: Not Given Mirtazapine (Remeron) 7.5 mg PO HS [facility] Last Admin: 06/08/17 22:40 Dose: 7.5 mg Oxycodone/Acetaminophen (Percocet 5/325 Mg Tab) 1 tab PO Q4 PRN PRN Reason: Pain, moderate (4-7) Stop: 06/11/17 09:35 Last Admin: 06/08/17 22:49 Dose: 1 tab Oxycodone/Acetaminophen (Percocet 5/325 Mg Tab) 2 tab PO Q4 PRN PRN Reason: Pain, severe (8-10) Stop: 06/11/17 09:35 Senna/Docusate Sodium (Senokot S 50 Mg-8.6 Mg) 2 tab PO [facility] Last Admin: 06/08/17 22:43 Dose: Not Given - Labs Labs: 06/08/17 05:00 06/08/17 05:00 PT 12.7 Seconds (9.8-13.1) 06/08/17 05:00 INR 1.2 (0.9-1.2) 06/08/17 05:00 APTT 26.5 Seconds (25.6-37.1) D 06/08/17 05:00 - Constitutional Appears: Non-toxic - Head Exam Head Exam: NORMAL INSPECTION - Eye Exam Eye Exam: absent: Scleral icterus - ENT Exam ENT Exam: Mucous Membranes Moist - Respiratory Exam Respiratory Exam: absent: Rhonchi, Wheezes Additional comments: Mild basal exp rales; - Cardiovascular Exam Cardiovascular Exam: JVD, RRR, +S1, +S2 - GI/Abdominal Exam GI & Abdominal Exam: Soft. absent: Distended - Exam Additional comments: tenderness over bladder; - Extremities Exam Additional comments: mild lower leg edema; - Neurological Exam Neurological Exam: Alert, Awake - Psychiatric Exam Psychiatric exam: Normal Mood - Skin Skin Exam: Normal Color, Warm. absent: Cyanosis Assessment and Plan (1) Acute renal failure Assessment & Plan: Resolving ATN; mild hypotension seen this evening; -need to keep MAP > 65; Status: Acute (2) Cardiomyopathy, dilated Assessment & Plan: Decompensated systolic CHF; volume excess on exam but BP low/normal with patient having rigors (although afebrile); -hold lasix for now and evaluate in am -check UA -may need to hold imdur/hydralazine if BP remains low; continue B-blockers per cardio recs; Status: Acute (3) Osteomyelitis Assessment & Plan: Now s/p L 1st L metatarsal head amputation; zosyn 2.25 g q6h correctly dosed for CrCl 40 ml/min but may need to increase by tomorrow with renal function improving; Status: Acute (4) PVD (peripheral vascular disease) Status: Acute (5) HTN (hypertension) Assessment & Plan: See recs above; Status: Chronic (6) CKD (chronic kidney disease) Status: Chronic (7) Anemia Status: Acute
[2017-06-09 06:32] LABS: HEMATOCRIT 27.7 % (34.0-47.0); MEAN CELL VOLUME 87.4 fl (81.0-99.0); MEAN CORPUSCULAR HEMOGLOBIN 27.8 pg (27.0-31.0); MEAN CORPUSCULAR HGB CONC 31.8 g/dL (33.0-37.0); RED CELL DISTRIBUTION WIDTH 18.4 % (11.5-14.5); WHITE BLOOD COUNT 13.4 K/uL (4.8-10.8)
[2017-06-09] MEDS: Insulin Lispro (humaLOG) 100 Units/ml Inj SC SCH ×4 (06:48→21:50)
[2017-06-09 06:50] LABS: BILIRUBIN,TOTAL 0.5 mg/dl (0.2-1.3); CALCIUM 8.9 mg/dL (8.4-10.2); POTASSIUM 4.5 MMOL/L (3.6-5.0); TOTAL PROTEIN 6.5 G/DL (6.3-8.2)
--- NOTE | 2017-06-09 07:54 | CP.PCM.PN ---
Subjective - Date & Time of Evaluation Date of Evaluation: 06/09/17 Time of Evaluation: 07:50 - Subjective Subjective: 66 year old female 1 day s/p partial resection of left first metatarsal head and proximal phalanx base and excision of tibial sesamoid and 13 days s/p revascularization of left leg. She is seen resting comfortably in bed, NAD, and AA0x3. She states that she feels good. Denies n/v/sob/cp/chill. No acute events overnight. Dressing is clean and intact with sangious strikethrough noted. She complains of some pain at the surgical site and calf pain. Objective - Vital Signs/Intake and Output Vital Signs (last 24 hours): Temp Pulse Resp BP Pulse Ox 99.4 F 87 18 116/68 94 L 06/09/17 00:45 06/09/17 00:45 06/09/17 00:45 06/09/17 00:45 06/09/17 00:45 Intake and Output: 06/09/17 06/09/17 06:59 18:59 Intake Total 300 Balance 300 - Medications Medications: Current Medications Acetaminophen (Tylenol 325mg Tab) 650 mg PO Q6 PRN PRN Reason: Pain, moderate (4-7) Last Admin: 06/06/17 13:04 Dose: 650 mg Acetaminophen (Tylenol 325mg Tab) 650 mg PO Q4 PRN PRN Reason: Pain, Mild (1-3) Aspirin (Aspirin Chewable) 81 mg PO DAILY [facility] Last Admin: 06/07/17 08:26 Dose: 81 mg Atorvastatin Calcium (Lipitor) 40 mg PO HS [facility] Last Admin: 06/08/17 22:40 Dose: 40 mg Carvedilol (Coreg) 6.25 mg PO Q12 [facility] Last Admin: 06/08/17 22:40 Dose: 6.25 mg Clopidogrel Bisulfate (Plavix) 75 mg PO DAILY [facility] Last Admin: 06/07/17 08:28 Dose: 75 mg Gabapentin (Neurontin) 100 mg PO BID [facility] Last Admin: 06/08/17 16:59 Dose: 100 mg Hydralazine HCl (Apresoline) 25 mg PO TID [facility] Last Admin: 06/08/17 16:58 Dose: Not Given Piperacillin Sod/Tazobactam (Sod 2.25 gm/ Sodium Chloride) 100 mls @ 100 mls/ hr IVPB Q6H [facility] Last Admin: 06/09/17 05:05 Dose: 100 mls/hr Insulin Detemir (Levemir) 12 units SC [facility] Last Admin: 06/08/17 22:41 Dose: 12 unit Insulin Human Lispro (Humalog) 4 units SC [facility] Last Admin: 06/09/17 06:48 Dose: Not Given Isosorbide Mononitrate (Imdur) 60 mg PO DAILY [facility] Last Admin: 06/08/17 09:30 Dose: Not Given Lidocaine (Lidoderm) 2 ea TD DAILY [facility] Last Admin: 06/08/17 09:30 Dose: Not Given Mirtazapine (Remeron) 7.5 mg PO [facility] Last Admin: 06/08/17 22:40 Dose: 7.5 mg Oxycodone/Acetaminophen (Percocet 5/325 Mg Tab) 1 tab PO Q4 PRN PRN Reason: Pain, moderate (4-7) Stop: 06/11/17 09:35 Last Admin: 06/08/17 22:49 Dose: 1 tab Oxycodone/Acetaminophen (Percocet 5/325 Mg Tab) 2 tab PO Q4 PRN PRN Reason: Pain, severe (8-10) Stop: 06/11/17 09:35 Senna/Docusate Sodium (Senokot S 50 Mg-8.6 Mg) 2 tab PO [facility] Last Admin: 06/08/17 22:43 Dose: Not Given - Labs Labs: 06/09/17 05:30 06/09/17 05:30 PT 12.7 Seconds (9.8-13.1) 06/08/17 05:00 INR 1.2 (0.9-1.2) 06/08/17 05:00 APTT 26.5 Seconds (25.6-37.1) D 06/08/17 05:00 - Constitutional Appears: Well, Non-toxic, No Acute Distress - Extremities Exam Additional comments: LE focused exam Dressing was clean and intact with sangious strikethrough noted CROCHETER HAND <4 seconds x10, temperature gradient WNL Sensation intact Pain with palpation of the entire left LE Pain with palpation near surgical site. - Neurological Exam Neurological Exam: Alert, Awake, Oriented x3 - Psychiatric Exam Psychiatric exam: Normal Affect, Normal Mood Assessment and Plan - Assessment and Plan (Free Text) Assessment: 66 year old female 1 day s/p partial resection of left first metatarsal head and proximal phalanx base and excision of tibial sesamoid and 13 days s/p revascularization of left leg. Plan: Patient seen and evaluated Plan discussed in detail with attending Dr. Reynoso Charts, labs and vitals reviewed (afebrile, WBC=13.4) Podiatry aware patient has NAI and CHF- improving Surgical dressing reinforced with ABD, kerlix, and new SHABBIR. Continue abx per ID Bone culture waiting results Continue pain management per medicine Podiatry will continue to follow while in house
[2017-06-09] MEDS: Lidocaine 5% Patch TD SCH (08:56)
--- NOTE | 2017-06-09 09:15 | CP.PCM.PN ---
Subjective - Date & Time of Evaluation Date of Evaluation: 06/09/17 Time of Evaluation: 06:40 - Subjective Subjective: 66 yo F patient seen today at bedside pleasant in not acute distress, reports feel well, sleeping well last night. Reports bowel movement yesterday. Reports chills last night but she is not sure if had fever. Also reports mild left calf discomfort, but denies pain, no abdominal pain, nausea, vomiting. Denies urinary symptoms, had BM last night. Objective - Vital Signs/Intake and Output Vital Signs (last 24 hours): Temp Pulse Resp BP Pulse Ox 98.8 F 78 20 126/76 95 06/09/17 08:25 06/09/17 08:53 06/09/17 08:25 06/09/17 08:53 06/09/17 08:25 Intake and Output: 06/09/17 06/09/17 06:59 18:59 Intake Total 300 Balance 300 - Medications Medications: Current Medications Acetaminophen (Tylenol 325mg Tab) 650 mg PO Q6 PRN PRN Reason: Pain, moderate (4-7) Last Admin: 06/06/17 13:04 Dose: 650 mg Acetaminophen (Tylenol 325mg Tab) 650 mg PO Q4 PRN PRN Reason: Pain, Mild (1-3) Aspirin (Aspirin Chewable) 81 mg PO DAILY [facility] Last Admin: 06/09/17 08:54 Dose: 81 mg Atorvastatin Calcium (Lipitor) 40 mg PO HS [facility] Last Admin: 06/08/17 22:40 Dose: 40 mg Carvedilol (Coreg) 6.25 mg PO Q12 [facility] Last Admin: 06/09/17 08:54 Dose: 6.25 mg Clopidogrel Bisulfate (Plavix) 75 mg PO DAILY [facility] Last Admin: 06/09/17 08:57 Dose: 75 mg Gabapentin (Neurontin) 100 mg PO BID [facility] Last Admin: 06/09/17 08:57 Dose: 100 mg Hydralazine HCl (Apresoline) 25 mg PO TID [facility] Last Admin: 06/09/17 08:53 Dose: 25 mg Piperacillin Sod/Tazobactam (Sod 2.25 gm/ Sodium Chloride) 100 mls @ 100 mls/ hr IVPB Q6H [facility] Last Admin: 06/09/17 05:05 Dose: 100 mls/hr Insulin Detemir (Levemir) 12 units SC [facility] Last Admin: 06/08/17 22:41 Dose: 12 unit Insulin Human Lispro (Humalog) 4 units SC [facility] Last Admin: 06/09/17 06:48 Dose: Not Given Isosorbide Mononitrate (Imdur) 60 mg PO DAILY [facility] Last Admin: 06/09/17 08:56 Dose: 60 mg Lidocaine (Lidoderm) 2 ea TD DAILY [facility] Last Admin: 06/09/17 08:56 Dose: 2 ea Mirtazapine (Remeron) 7.5 mg PO [facility] Last Admin: 06/08/17 22:40 Dose: 7.5 mg Oxycodone/Acetaminophen (Percocet 5/325 Mg Tab) 1 tab PO Q4 PRN PRN Reason: Pain, moderate (4-7) Stop: 06/11/17 09:35 Last Admin: 06/08/17 22:49 Dose: 1 tab Oxycodone/Acetaminophen (Percocet 5/325 Mg Tab) 2 tab PO Q4 PRN PRN Reason: Pain, severe (8-10) Stop: 06/11/17 09:35 Senna/Docusate Sodium (Senokot S 50 Mg-8.6 Mg) 2 tab PO [facility] Last Admin: 06/08/17 22:43 Dose: Not Given - Labs Labs: 06/09/17 05:30 06/09/17 05:30 PT 12.7 Seconds (9.8-13.1) 06/08/17 05:00 INR 1.2 (0.9-1.2) 06/08/17 05:00 APTT 26.5 Seconds (25.6-37.1) D 06/08/17 05:00 - Constitutional Appears: Well, Non-toxic, No Acute Distress - Head Exam Head Exam: ATRAUMATIC, NORMOCEPHALIC - Eye Exam Eye Exam: EOMI, PERRL. absent: Nystagmus - Neck Exam Neck Exam: Full ROM. absent: Lymphadenopathy - Respiratory Exam Respiratory Exam: Rales (bilateral lung bases.). absent: Accessory Muscle Use - Cardiovascular Exam Cardiovascular Exam: REGULAR RHYTHM, RRR, +S1, +S2. absent: Murmur - GI/Abdominal Exam GI & Abdominal Exam: Soft, Normal Bowel Sounds. absent: Tenderness, Organomegaly - Extremities Exam Extremities Exam: absent: Calf Tenderness (No tenderness on palpation.), Full ROM Additional comments: L foot bandaged with mild blood on it. Moderate foot swelling. TP and DP pulses present b/l. - Neurological Exam Neurological Exam: Alert, CN II-XII Intact, Oriented x3 - Psychiatric Exam Psychiatric exam: absent: Anxious Assessment and Plan - Assessment and Plan (Free Text) Assessment: 66 y.o. female with hx of Peripheral vascular disease admitted for osteomyelitis POD 1 Partial resection of 1st metatarsal L foot. #Osteomyelitis, Acute -Partial resection of 1st metatarsal L foot completed in OR by Podiatry (06/08) . -C/W Zosyn Day 16 -Podiatry and ID on board -PT/OT Eval placed -Pending bone culture result from yesterday. #Acute Decompensated Systolic Heart Failure- EF 20%, Resolving -Last Echo (06/10) EF <15-20% -Reduce afterload and heart rate, Coreg 6.25mg PO, Hydralazine 25mg TID, and Isosorbid Mononitrate 60mg -Monitor I/O's -Bumex D/C by nephrology as pt BP is in the 110/100. -Cleared by cardiology for OR. As per Dr. Mcdaniel, pt may need to be diuresed post operation to prevent fluid overload. -Examined patient's fluid status after surgery. No blood products or fluid administered. ASA and Plavix to be resumed in the am. #Acute Kidney Injury-Improving/stable -Crea 1.4 today, resolved -Cleared for nephrology #Constipation-Improving -Sennakot 2 tab PO qHS # Anemia, Acute- improving s/p PRBC and I.V. Venofer -H/H today stable -I.V. venofer 5 days completed -consider hemolytic anemia- Elgin test, haptoglobin, LFT, Total bilirubin -Elgin test + -Ferritin WNL, TIBC WNL, IRon 24, Reticulocyte 3.4, B-12 and Folate WNL -FOBT x 2 negative -F/u CBC #Transaminitis, Resolved -AST, ALT wnl # Peripheral Vascular Disease- POD #4 Left lower leg revascularization - Revascularization complete at [place] -Monitor pedal pulses daily -PT/OT # Diabetes Mellitus Type 2 -Levemir 10 units daily, Lispro 4 units with meals -neuropathy- Gabapentin 100 BID #Hypertension -c/w current management -Coreg 6.25mg Q12 -Misha inhibitor stopped for now # Hyperlipidemia -Continue home meds: atorvastatin # DVT prophylaxis -Heparin 5000 units SQ= DC'ed for OR tomorrow
--- NOTE | 2017-06-09 11:11 | US ---
HISTORY: s/p left foot surgery and calf pain . PRIORS: None. FINDINGS: 2-D, color and duplex Doppler analysis of the lower extremity venous circulation using routine protocol from the femoral veins through the popliteal veins. Venous compressibility: Normal. Flow and augmentation patterns: Normal. Visualized veins upper third of calf: Normal. Barlow cyst: None. IMPRESSION: No evidence for deep venous thrombosis.
[2017-06-09] MEDS: Oxycodone/Acetaminophen 5/325 mg Tab PO PRN (11:39)
--- NOTE | 2017-06-09 12:42 | CP.PCM.PN ---
Subjective - Date & Time of Evaluation Date of Evaluation: 06/09/17 Time of Evaluation: 12:40 - Subjective Subjective: Patient is a 66 year old female one day s/p partial exostectomy of left first metatarsal, partial exostectomy of left proximal phalangeal base, debridement of superficial ulceration left foot and excision of left tibial sesamoid. Patient states that she still has some pain today but is feeling well. She denies any further pedal complaints at this time. Patient denies N/V/F/C/CP/SOB Objective - Vital Signs/Intake and Output Vital Signs (last 24 hours): Temp Pulse Resp BP Pulse Ox 98.8 F 78 20 126/76 95 06/09/17 08:25 06/09/17 08:53 06/09/17 08:25 06/09/17 11:39 06/09/17 08:25 Intake and Output: 06/09/17 06/09/17 06:59 18:59 Intake Total 300 Balance 300 - Medications Medications: Current Medications Acetaminophen (Tylenol 325mg Tab) 650 mg PO Q6 PRN PRN Reason: Pain, moderate (4-7) Last Admin: 06/06/17 13:04 Dose: 650 mg Acetaminophen (Tylenol 325mg Tab) 650 mg PO Q4 PRN PRN Reason: Pain, Mild (1-3) Aspirin (Aspirin Chewable) 81 mg PO DAILY [facility] Last Admin: 06/09/17 08:54 Dose: 81 mg Atorvastatin Calcium (Lipitor) 40 mg PO HS [facility] Last Admin: 06/08/17 22:40 Dose: 40 mg Carvedilol (Coreg) 6.25 mg PO Q12 [facility] Last Admin: 06/09/17 08:54 Dose: 6.25 mg Clopidogrel Bisulfate (Plavix) 75 mg PO DAILY [facility] Last Admin: 06/09/17 08:57 Dose: 75 mg Furosemide (Lasix) 20 mg PO BID [facility] Last Admin: 06/09/17 11:39 Dose: 20 mg Gabapentin (Neurontin) 100 mg PO BID [facility] Last Admin: 06/09/17 08:57 Dose: 100 mg Heparin Sodium (Porcine) (Heparin) 5,000 units SC Q8 [facility] PRN Reason: Protocol Hydralazine HCl (Apresoline) 10 mg PO TID [facility] Piperacillin Sod/Tazobactam (Sod 2.25 gm/ Sodium Chloride) 100 mls @ 100 mls/ hr IVPB Q6H [facility] Last Admin: 06/09/17 11:43 Dose: 100 mls/hr Insulin Detemir (Levemir) 10 units SC [facility] Insulin Human Lispro (Humalog) 4 units SC [facility] Last Admin: 06/09/17 11:42 Dose: Not Given Isosorbide Mononitrate (Imdur) 60 mg PO DAILY [facility] Last Admin: 06/09/17 08:56 Dose: 60 mg Lidocaine (Lidoderm) 2 ea TD DAILY [facility] Last Admin: 06/09/17 08:56 Dose: 2 ea Mirtazapine (Remeron) 7.5 mg PO [facility] Last Admin: 06/08/17 22:40 Dose: 7.5 mg Oxycodone/Acetaminophen (Percocet 5/325 Mg Tab) 1 tab PO Q4 PRN PRN Reason: Pain, moderate (4-7) Stop: 06/11/17 09:35 Last Admin: 06/09/17 11:39 Dose: 1 tab Oxycodone/Acetaminophen (Percocet 5/325 Mg Tab) 2 tab PO Q4 PRN PRN Reason: Pain, severe (8-10) Stop: 06/11/17 09:35 Senna/Docusate Sodium (Senokot S 50 Mg-8.6 Mg) 2 tab PO [facility] Last Admin: 06/08/17 22:43 Dose: Not Given - Labs Labs: 06/09/17 05:30 06/09/17 05:30 PT 12.7 Seconds (9.8-13.1) 06/08/17 05:00 INR 1.2 (0.9-1.2) 06/08/17 05:00 APTT 26.5 Seconds (25.6-37.1) D 06/08/17 05:00 - Constitutional Appears: Well, Non-toxic, No Acute Distress - Extremities Exam Additional comments: LLE focused examination: Dressing was clean and intact with sangious strikethrough noted Vasc: CFT < 4 seconds x10, temperature gradient WNL. Diffuse edema noted to patient's left foot consistent with surgical procedure yesterday. Neuro: Epicritic and protective sensation grossly intact Derm: Surgical site noted to be well coapted with no signs of dehiscence, no periwound erythema, malodor, drainage or other clinical signs of infection. Ulcer site to left digit is nonerythematous with no drainage, malodor or other clinical signs of infection at this time MSK: Pain with palpation of the entire left LE, Pain with palpation near surgical site consistent with procedure performed - Neurological Exam Neurological Exam: Alert, Awake, Oriented x3 - Psychiatric Exam Psychiatric exam: Normal Affect, Normal Mood Assessment and Plan - Assessment and Plan (Free Text) Assessment: 66 year old patient one day s/p left foot partial exostectomy first metatarsal, partial exostectomy proximal phalanx base, excision tibial sesamoid secondary to OM Plan: Patient seen and evaluated at bedside with attending Dr. Reynoso Charts labs and vitals reviewed; WBC 13.4 Dressing changed with xeroform, gauze, kerlix and SHABBIR bandage Podiatry aware patient has NAI and CHF- improving Extremity ultrasound negative for DVT PT eval active Pending bone culture from yesterday's procedure Continue IV abx per ID Order for surgical shoe placed and to be worn whenever WB Podiatry will continue to follow while patient is in house
[2017-06-09] MEDS ORDERED: Morphine 15 mg Immediate Release Tab PO PRN (16:44)
[2017-06-09] MEDS ORDERED: Morphine 30 mg Immediate Release Tab PO PRN (16:45)
--- NOTE | 2017-06-09 18:46 | CP.PCM.PN ---
Subjective - Date & Time of Evaluation Date of Evaluation: 06/09/17 Time of Evaluation: 10:00 - Subjective Subjective: Denies any shortness of breath; Objective - Vital Signs/Intake and Output Vital Signs (last 24 hours): Temp Pulse Resp BP Pulse Ox 98.9 F 72 20 106/57 L 94 L 06/09/17 16:16 06/09/17 16:59 06/09/17 16:16 06/09/17 17:02 06/09/17 16:16 Intake and Output: 06/09/17 06/09/17 06:59 18:59 Intake Total 300 Balance 300 - Medications Medications: Current Medications Acetaminophen (Tylenol 325mg Tab) 650 mg PO Q6 PRN PRN Reason: Pain, moderate (4-7) Last Admin: 06/06/17 13:04 Dose: 650 mg Acetaminophen (Tylenol 325mg Tab) 650 mg PO Q4 PRN PRN Reason: Pain, Mild (1-3) Aspirin (Aspirin Chewable) 81 mg PO DAILY [facility] Last Admin: 06/09/17 08:54 Dose: 81 mg Atorvastatin Calcium (Lipitor) 40 mg PO HS [facility] Last Admin: 06/08/17 22:40 Dose: 40 mg Carvedilol (Coreg) 9.375 mg PO Q12 [facility] Clopidogrel Bisulfate (Plavix) 75 mg PO DAILY [facility] Last Admin: 06/09/17 08:57 Dose: 75 mg Furosemide (Lasix) 20 mg PO BID [facility] Last Admin: 06/09/17 17:02 Dose: 20 mg Gabapentin (Neurontin) 100 mg PO BID [facility] Last Admin: 06/09/17 17:03 Dose: 100 mg Heparin Sodium (Porcine) (Heparin) 5,000 units SC Q8 [facility] PRN Reason: Protocol Last Admin: 06/09/17 17:13 Dose: 5,000 units Hydralazine HCl (Apresoline) 10 mg PO TID [facility] Last Admin: 06/09/17 16:59 Dose: Not Given Piperacillin Sod/Tazobactam (Sod 2.25 gm/ Sodium Chloride) 100 mls @ 100 mls/ hr IVPB Q6H [facility] Last Admin: 06/09/17 17:04 Dose: 100 mls/hr Insulin Detemir (Levemir) 10 units SC HS [facility] Insulin Human Lispro (Humalog) 4 units SC [facility] Last Admin: 06/09/17 17:11 Dose: 4 u Isosorbide Mononitrate (Imdur) 60 mg PO DAILY [facility] Last Admin: 06/09/17 08:56 Dose: 60 mg Lidocaine (Lidoderm) 2 ea TD DAILY [facility] Last Admin: 06/09/17 08:56 Dose: 2 ea Mirtazapine (Remeron) 7.5 mg PO HS [facility] Last Admin: 06/08/17 22:40 Dose: 7.5 mg Morphine Sulfate (Morphine Immediate Release Tab) 15 mg PO Q4 PRN PRN Reason: Pain, moderate (4-7) Morphine Sulfate (Morphine Immediate Release Tab) 30 mg PO Q4 PRN PRN Reason: Pain, severe (8-10) Senna/Docusate Sodium (Senokot S 50 Mg-8.6 Mg) [address] [facility] Last Admin: 06/08/17 22:43 Dose: Not Given - Labs Labs: 06/09/17 05:30 06/09/17 05:30 PT 12.7 Seconds (9.8-13.1) 06/08/17 05:00 INR 1.2 (0.9-1.2) 06/08/17 05:00 APTT 26.5 Seconds (25.6-37.1) D 06/08/17 05:00 - Constitutional Appears: Non-toxic, No Acute Distress - Head Exam Head Exam: NORMAL INSPECTION - Eye Exam Eye Exam: Normal appearance. absent: Scleral icterus - ENT Exam ENT Exam: Mucous Membranes Moist - Respiratory Exam Respiratory Exam: Rales. absent: Rhonchi, Wheezes, Respiratory Distress Additional comments: MIld basal rales - Cardiovascular Exam Cardiovascular Exam: JVD, RRR, +S1, +S2 - GI/Abdominal Exam GI & Abdominal Exam: Soft. absent: Distended, Tenderness - Extremities Exam Additional comments: mild lower leg edema; - Neurological Exam Neurological Exam: Alert, Awake - Skin Skin Exam: Normal Color, Warm. absent: Cyanosis Assessment and Plan (1) Acute renal failure Assessment & Plan: ATN resolving; -keep MAP > 65; -avoid nephrotoxic meds (NSAIDS); Status: Acute (2) Cardiomyopathy, dilated Assessment & Plan: Relatively asymptomatic but volume excess on exam; -resume diuretics with lasix PO 20 mg bid Status: Acute (3) Osteomyelitis Status: Acute (4) PVD (peripheral vascular disease) Status: Acute (5) HTN (hypertension) Assessment & Plan: On multiple CHF meds; continue to hold off on LUIS blockade for now; Status: Chronic (6) CKD (chronic kidney disease) Status: Chronic (7) Anemia Status: Acute
[2017-06-09] MEDS: Docusate-Senna 50 mg-8.6 mg Tab PO SCH (21:46)
[2017-06-09] MEDS: Insulin Detemir 100 Units/ml Inj SC SCH (21:48)
[2017-06-10 06:04] LABS: HEMATOCRIT 24.5 % (34.0-47.0); MEAN CELL VOLUME 87.6 fl (81.0-99.0); RED CELL DISTRIBUTION WIDTH 19.4 % (11.5-14.5); WHITE BLOOD COUNT 12.2 K/uL (4.8-10.8)
[2017-06-10 06:08] LABS: CALCIUM 8.9 mg/dL (8.4-10.2); POTASSIUM 4.2 MMOL/L (3.6-5.0)
--- NOTE | 2017-06-10 08:52 | CP.PCM.PN ---
Subjective - Date & Time of Evaluation Date of Evaluation: 06/10/17 Time of Evaluation: 08:51 - Subjective Subjective: Podiatry- Dr. Renyoso Patient is a 66 year old female two days s/p partial exostectomy of left first metatarsal, partial exostectomy of left proximal phalangeal base, debridement of superficial ulceration left foot and excision of left tibial sesamoid. Patient states that she still has some pain today but is feeling better each day. Patient denies any acute overnight events and states that she does not want to walk on her foot yet. She denies any further pedal complaints at this time. Patient denies N/V/F/C/CP/SOB Objective - Vital Signs/Intake and Output Vital Signs (last 24 hours): Temp Pulse Resp BP Pulse Ox 99 F 73 22 107/65 95 06/10/17 07:42 06/10/17 07:42 06/10/17 07:42 06/10/17 07:42 06/10/17 07:42 Intake and Output: 06/10/17 06/10/17 06:59 18:59 Intake Total 100 Balance 100 - Medications Medications: Current Medications Acetaminophen (Tylenol 325mg Tab) 650 mg PO Q6 PRN PRN Reason: Pain, moderate (4-7) Last Admin: 06/06/17 13:04 Dose: 650 mg Acetaminophen (Tylenol 325mg Tab) 650 mg PO Q4 PRN PRN Reason: Pain, Mild (1-3) Aspirin (Aspirin Chewable) 81 mg PO DAILY [facility] Last Admin: 06/09/17 08:54 Dose: 81 mg Atorvastatin Calcium (Lipitor) 40 mg PO HS [facility] Last Admin: 06/09/17 21:45 Dose: 40 mg Carvedilol (Coreg) 9.375 mg PO Q12 [facility] Last Admin: 06/09/17 21:45 Dose: 9.375 mg Clopidogrel Bisulfate (Plavix) 75 mg PO DAILY [facility] Last Admin: 06/09/17 08:57 Dose: 75 mg Furosemide (Lasix) 20 mg PO BID [facility] Last Admin: 06/09/17 17:02 Dose: 20 mg Gabapentin (Neurontin) 100 mg PO BID [facility] Last Admin: 06/09/17 17:03 Dose: 100 mg Heparin Sodium (Porcine) (Heparin) 5,000 units SC Q8 [facility] PRN Reason: Protocol Last Admin: 06/10/17 00:05 Dose: 5,000 units Hydralazine HCl (Apresoline) 10 mg PO TID [facility] Last Admin: 06/09/17 16:59 Dose: Not Given Piperacillin Sod/Tazobactam (Sod 2.25 gm/ Sodium Chloride) 100 mls @ 100 mls/ hr IVPB Q6H [facility] Last Admin: 06/10/17 05:24 Dose: 100 mls/hr Insulin Detemir (Levemir) 10 units SC HS [facility] Last Admin: 06/09/17 21:48 Dose: 10 units Insulin Human Lispro (Humalog) 4 units SC [facility] Last Admin: 06/09/17 21:50 Dose: 4 u Isosorbide Mononitrate (Imdur) 60 mg PO DAILY [facility] Last Admin: 06/09/17 08:56 Dose: 60 mg Lidocaine (Lidoderm) 2 ea TD DAILY [facility] Last Admin: 06/09/17 08:56 Dose: 2 ea Mirtazapine (Remeron) 7.5 mg PO [facility] Last Admin: 06/09/17 21:45 Dose: 7.5 mg Morphine Sulfate (Morphine Immediate Release Tab) 15 mg PO Q4 PRN PRN Reason: Pain, moderate (4-7) Morphine Sulfate (Morphine Immediate Release Tab) 30 mg PO Q4 PRN PRN Reason: Pain, severe (8-10) Last Admin: 06/10/17 00:04 Dose: 30 mg Senna/Docusate Sodium (Senokot S 50 Mg-8.6 Mg) 2 tab PO [facility] Last Admin: 06/09/17 21:46 Dose: 2 tab - Labs Labs: 06/10/17 04:55 06/10/17 04:55 PT 12.7 Seconds (9.8-13.1) 06/08/17 05:00 INR 1.2 (0.9-1.2) 06/08/17 05:00 APTT 26.5 Seconds (25.6-37.1) D 06/08/17 05:00 - Constitutional Appears: Well, Non-toxic, No Acute Distress - Extremities Exam Additional comments: LLE focused examination: Dressing was clean and intact with sangious strikethrough noted Vasc: DP/PT pulses palpable. CFT < 4 seconds x10, temperature gradient WNL. Diffuse edema noted to patient's left foot consistent with surgical procedure yesterday. Neuro: Epicritic and protective sensation grossly intact Derm: Surgical site noted to be well coapted with no signs of dehiscence, no periwound erythema, malodor, drainage or other clinical signs of infection. Ulcer site to left digit is nonerythematous with no drainage, malodor or other clinical signs of infection at this time MSK: Pain with palpation of the entire left LE, Pain with palpation near surgical site consistent with procedure performed - Neurological Exam Neurological Exam: Alert, Awake, Oriented x3 - Psychiatric Exam Psychiatric exam: Normal Affect, Normal Mood Assessment and Plan - Assessment and Plan (Free Text) Assessment: 66 year old patient one day s/p left foot partial exostectomy first metatarsal, partial exostectomy proximal phalanx base, excision tibial sesamoid secondary to OM Plan: Patient seen and evaluated at bedside Charts, labs and vitals reviewed; WBC 12.2, afebrile Plan discussed with Dr. Reynoso OR bone pathology report received: Acute OM found in First met head and tibial sesamoid, Proximal phalanx negative for OM Awaiting ID recommendations for 7 day PO abx Patient stable from podiatry standpoint Upon DC home patient will follow up with Dr. Reynoso in wound care center
[2017-06-10] MEDS: Insulin Lispro (humaLOG) 100 Units/ml Inj SC SCH ×5 (08:54→23:02)
[2017-06-10] MEDS: Lidocaine 5% Patch TD SCH (08:57)
[2017-06-10 13:10] LABS: HEMATOCRIT 22.8 % (34.0-47.0); MEAN CELL VOLUME 86.9 fl (81.0-99.0); MEAN CORPUSCULAR HEMOGLOBIN 29.2 pg (27.0-31.0); MEAN CORPUSCULAR HGB CONC 33.6 g/dL (33.0-37.0); RED CELL DISTRIBUTION WIDTH 19.2 % (11.5-14.5); WHITE BLOOD COUNT 10.4 K/uL (4.8-10.8)
--- NOTE | 2017-06-10 13:41 | CP.PCM.PN ---
Subjective - Date & Time of Evaluation Date of Evaluation: 06/10/17 Time of Evaluation: 06:35 - Subjective Subjective: 66 yo F patient seen today at bedside pleasant in not acute distress, reports feel well, sleeping well last night. She looks pale. States mild pain in her L lower extremity due to surgery. Reports bowel movement yesterday. Denies fever, nausea, abdominal pain, vomiting. Denies urinary symptoms, bloody stools. Objective - Vital Signs/Intake and Output Vital Signs (last 24 hours): Temp Pulse Resp BP Pulse Ox 99 F 73 22 107/65 95 06/10/17 07:42 06/10/17 07:42 06/10/17 07:42 06/10/17 08:56 06/10/17 07:42 Intake and Output: 06/10/17 06/10/17 06:59 18:59 Intake Total 100 Balance 100 - Medications Medications: Current Medications Acetaminophen (Tylenol 325mg Tab) 650 mg PO Q6 PRN PRN Reason: Pain, moderate (4-7) Last Admin: 06/06/17 13:04 Dose: 650 mg Acetaminophen (Tylenol 325mg Tab) 650 mg PO Q4 PRN PRN Reason: Pain, Mild (1-3) Aspirin (Aspirin Chewable) 81 mg PO DAILY [facility] Last Admin: 06/10/17 08:52 Dose: 81 mg Atorvastatin Calcium (Lipitor) 40 mg PO HS [facility] Last Admin: 06/09/17 21:45 Dose: 40 mg Carvedilol (Coreg) 9.375 mg PO Q12 [facility] Last Admin: 06/09/17 21:45 Dose: 9.375 mg Clopidogrel Bisulfate (Plavix) 75 mg PO DAILY [facility] Last Admin: 06/10/17 08:59 Dose: 75 mg Furosemide (Lasix) 20 mg PO BID [facility] Last Admin: 06/10/17 08:56 Dose: 20 mg Heparin Sodium (Porcine) (Heparin) 5,000 units SC Q8 DASHAWN PRN Reason: Protocol Last Admin: 06/10/17 00:05 Dose: 5,000 units Piperacillin Sod/Tazobactam (Sod 2.25 gm/ Sodium Chloride) 100 mls @ 100 mls/ hr IVPB Q6H [facility] Last Admin: 06/10/17 05:24 Dose: 100 mls/hr Insulin Detemir (Levemir) 10 units SC HS [facility] Last Admin: 06/09/17 21:48 Dose: 10 units Insulin Human Lispro (Humalog) 4 units SC ACHS [facility] Last Admin: 06/10/17 08:54 Dose: 4 u Isosorbide Mononitrate (Imdur) 60 mg PO DAILY [facility] Last Admin: 06/10/17 08:56 Dose: 60 mg Lidocaine (Lidoderm) 2 ea TD DAILY [facility] Last Admin: 06/10/17 08:57 Dose: 2 ea Mirtazapine (Remeron) 7.5 mg PO HS [facility] Last Admin: 06/09/17 21:45 Dose: 7.5 mg Morphine Sulfate (Morphine Immediate Release Tab) 15 mg PO Q4 PRN PRN Reason: Pain, moderate (4-7) Morphine Sulfate (Morphine Immediate Release Tab) 30 mg PO Q4 PRN PRN Reason: Pain, severe (8-10) Last Admin: 06/10/17 00:04 Dose: 30 mg Senna/Docusate Sodium (Senokot S 50 Mg-8.6 Mg) 2 tab PO [facility] Last Admin: 06/09/17 21:46 Dose: 2 tab - Labs Labs: 06/10/17 12:49 06/10/17 04:55 PT 12.7 Seconds (9.8-13.1) 06/08/17 05:00 INR 1.2 (0.9-1.2) 06/08/17 05:00 APTT 26.5 Seconds (25.6-37.1) D 06/08/17 05:00 - Constitutional Appears: Well, No Acute Distress - Head Exam Head Exam: ATRAUMATIC, NORMOCEPHALIC - Eye Exam Eye Exam: EOMI, Normal appearance, PERRL. absent: Nystagmus Additional comments: Pale mucuses, no icteric. - Neck Exam Neck Exam: Full ROM. absent: Lymphadenopathy - Respiratory Exam Respiratory Exam: Rales (bilateral in lung bases.), NORMAL BREATHING PATTERN - Cardiovascular Exam Cardiovascular Exam: RRR, +S1, +S2. absent: Murmur - Extremities Exam Additional comments: L foot wound healing well, no sepsis, moderate swelling, no erythema or hematoma , mild tenderness on palpation. PT/DP 2+ b/l. - Back Exam Back Exam: NORMAL INSPECTION. absent: Full ROM, vertebral tenderness - Neurological Exam Neurological Exam: Alert, CN II-XII Intact, Oriented x3 Assessment and Plan - Assessment and Plan (Free Text) Assessment: - Assessment and Plan (Free Text) Assessment: 66 y.o. female with hx of Peripheral vascular disease admitted for osteomyelitis POD 2 Partial resection of 1st metatarsal L foot. #Osteomyelitis, Acute -Partial resection of 1st metatarsal L foot completed in OR by Podiatry (06/08) . -C/W Zosyn Day 17 -Podiatry and ID on board -PT evaluation: JHONNY recommended. -bone culture result: 1 st metatarsal head and sesamoid: bone is viable shows focus of acute osteomyelitis and reactive bone formation, soft tissue show chronic active inflamation. Proximal Margin phalanx: bone is viable with not signs of acute osteomylitis. #Acute Decompensated Systolic Heart Failure- EF 20%, Resolving -Last Echo (06/10) EF <15-20% -Reduce afterload and heart rate, Coreg 9.375mg PO, and Isosorbid Mononitrate 60mg -Monitor I/O's #Acute Kidney Injury-Improving/stable -Crea 1.4 today -Cleared for nephrology #Constipation-Improving -Sennakot 2 tab PO qHS # Anemia, Acute s/p PRBC and I.V. Venofer -H/H today 7.8 /26 stable -I.V. venofer 5 days completed -[place] test + -Ferritin WNL, TIBC WNL, IRon 24, Reticulocyte 3.4, B-12 and Folate WNL -FOBT x 2 negative early on admission -F/u CBC, type and screen, FOBT today. # Peripheral Vascular Disease- POD #5 Left lower leg revascularization - Revascularization complete at [place] -Monitor pedal pulses daily -PT/OT # Diabetes Mellitus Type 2 -Levemir 10 units daily, Lispro 4 units with meals -Stop Gabapentin 100 BID due hypotension. #Hypertension -c/w current management -Coreg 9.375mg Q12 -Stoped Hydralazine 10 mg TID due to hypotension. # Hyperlipidemia -Continue home meds: atorvastatin # DVT prophylaxis -Heparin 5000 units SQ.
--- NOTE | 2017-06-10 21:07 | CP.PCM.PN ---
Subjective - Date & Time of Evaluation Date of Evaluation: 06/10/17 Time of Evaluation: 21:05 - Subjective Subjective: WAS DIZZY EARLIER, FELT LIKE SHE WAS SPINNING. ALSO HAD N/V. TODAY FEELS SLEEPY. Objective - Vital Signs/Intake and Output Vital Signs (last 24 hours): Temp Pulse Resp BP Pulse Ox 98.1 F 83 18 129/76 98 06/10/17 16:37 06/10/17 16:37 06/10/17 16:37 06/10/17 16:37 06/10/17 16:37 - Medications Medications: Current Medications Acetaminophen (Tylenol 325mg Tab) 650 mg PO Q6 PRN PRN Reason: Pain, moderate (4-7) Last Admin: 06/06/17 13:04 Dose: 650 mg Acetaminophen (Tylenol 325mg Tab) 650 mg PO Q4 PRN PRN Reason: Pain, Mild (1-3) Aspirin (Aspirin Chewable) 81 mg PO DAILY [facility] Last Admin: 06/10/17 08:52 Dose: 81 mg Atorvastatin Calcium (Lipitor) 40 mg PO HS [facility] Last Admin: 06/09/17 21:45 Dose: 40 mg Carvedilol (Coreg) 9.375 mg PO Q12 [facility] Clopidogrel Bisulfate (Plavix) 75 mg PO DAILY [facility] Last Admin: 06/10/17 08:59 Dose: 75 mg Furosemide (Lasix) 20 mg PO BID [facility] Last Admin: 06/10/17 16:35 Dose: 20 mg Heparin Sodium (Porcine) (Heparin) 5,000 units SC Q8 [facility] PRN Reason: Protocol Last Admin: 06/10/17 17:58 Dose: 5,000 units Piperacillin Sod/Tazobactam (Sod 2.25 gm/ Sodium Chloride) 100 mls @ 100 mls/ hr IVPB Q6H [facility] Last Admin: 06/10/17 17:54 Dose: 100 mls/hr Insulin Detemir (Levemir) 10 units SC HS [facility] Last Admin: 06/09/17 21:48 Dose: 10 units Insulin Human Lispro (Humalog) 4 units SC ACHS [facility] Last Admin: 06/10/17 16:34 Dose: 4 u Isosorbide Mononitrate (Imdur) 60 mg PO DAILY [facility] Last Admin: 06/10/17 08:56 Dose: 60 mg Lidocaine (Lidoderm) 2 ea TD DAILY [facility] Last Admin: 06/10/17 08:57 Dose: 2 ea Mirtazapine (Remeron) 7.5 mg PO HS [facility] Last Admin: 06/09/17 21:45 Dose: 7.5 mg Morphine Sulfate (Morphine Immediate Release Tab) 15 mg PO Q4 PRN PRN Reason: Pain, moderate (4-7) Morphine Sulfate (Morphine Immediate Release Tab) 30 mg PO Q4 PRN PRN Reason: Pain, severe (8-10) Last Admin: 06/10/17 00:04 Dose: 30 mg Senna/Docusate Sodium (Senokot S 50 Mg-8.6 Mg) 2 tab PO HS [facility] Last Admin: 06/09/17 21:46 Dose: 2 tab - Labs Labs: 06/10/17 12:49 06/10/17 04:55 PT 12.7 Seconds (9.8-13.1) 06/08/17 05:00 INR 1.2 (0.9-1.2) 06/08/17 05:00 APTT 26.5 Seconds (25.6-37.1) D 06/08/17 05:00 - Constitutional Appears: Well - Head Exam Head Exam: ATRAUMATIC, NORMAL INSPECTION, NORMOCEPHALIC - Eye Exam Eye Exam: EOMI, Normal appearance, PERRL Pupil Exam: NORMAL ACCOMODATION, PERRL - ENT Exam ENT Exam: Mucous Membranes Moist, Normal Exam - Neck Exam Neck Exam: Full ROM, Normal Inspection. absent: Lymphadenopathy - Respiratory Exam Respiratory Exam: Clear to Ausculation Bilateral, NORMAL BREATHING PATTERN - Cardiovascular Exam Cardiovascular Exam: REGULAR RHYTHM, +S1, +S2, Murmur - GI/Abdominal Exam GI & Abdominal Exam: Soft, Normal Bowel Sounds. absent: Tenderness - Extremities Exam Extremities Exam: Full ROM, Normal Capillary Refill, Normal Inspection. absent : Joint Swelling, Pedal Edema - Back Exam Back Exam: NORMAL INSPECTION - Neurological Exam Neurological Exam: Alert, Awake, CN II-XII Intact, Oriented x3 - Psychiatric Exam Psychiatric exam: Normal Affect, Normal Mood - Skin Skin Exam: Dry, Intact, Normal Color, Warm Assessment and Plan (1) Cardiomyopathy, dilated Status: Acute (2) Systolic and diastolic CHF, acute on chronic Status: Acute (3) Volume overload Status: Acute (4) PVD (peripheral vascular disease) Status: Acute (5) SOB (shortness of breath) Status: Acute (6) Hx of myocardial infarction Status: Chronic (7) History of CVA (cerebrovascular accident) Status: Chronic (8) HTN (hypertension) Status: Chronic (9) Dyslipidemia Status: Chronic (10) History of tobacco abuse Status: Chronic (11) Osteomyelitis Status: Acute (12) Diabetic foot ulcer Status: Acute (13) Uncontrolled diabetes mellitus Status: Acute (14) Dizziness Status: Acute - Assessment and Plan (Free Text) Plan: PTS SYMPTOMS OF VERTIGO, VOMITING AND SOMNOLENCE MAY BE SECONDARY TO REMERON. WOULD CONSIDER HOLDING. PT OTHERWISE DOING WELL. CR STABALIZED. SHE IS NOT ORTHOSTATIC.
[2017-06-10] MEDS: Docusate-Senna 50 mg-8.6 mg Tab PO SCH (22:05)
[2017-06-10] MEDS: Insulin Detemir 100 Units/ml Inj SC SCH (22:18)
[2017-06-10] MEDS ORDERED: Glucagon Recombinant 1 mg Inj IM PRN (22:54)
[2017-06-10] MEDS ORDERED: Dextrose 50% SYRINGE Inj (50 ml) IV PRN (22:54)
--- NOTE | 2017-06-11 00:57 | PN ---
NEPHROLOGY FOLLOWUP NOTE DATE: SUBJECTIVE: This is a 66-year-old female with past medical history of diabetes, hypertension, CAD and peripheral arterial disease, admitted with left foot osteomyelitis. Hospital course complicated by acute decompensated systolic CHF as well as acute renal failure. The patient now status post first left metatarsal head amputation. Nephrology following for acute renal failure. Patient reports feeling depressed, feels that she will not be able to walk again, otherwise reports occasional difficulty breathing. PHYSICAL EXAMINATION: VITAL SIGNS: This morning blood pressure 103/63, heart rate 73, respirations 22, temperature 99, O2 saturation 95% on room air. GENERAL: No distress. Speaking coherently in full sentences. HEENT: Moist mucous membranes, nonicteric. RESPIRATORY: Minimal basilar rales, otherwise clear to auscultation bilaterally. No rhonchi, no wheezes. CARDIOVASCULAR: S1 and S2 normal. No murmurs, no gallops, no rubs, elevated JVD. GASTROINTESTINAL: Abdomen is soft, nontender, nondistended. GENITOURINARY: No bladder distension. SKIN: Warm. No cyanosis. PSYCHIATRIC: Normal mood. Normal affect. LABORATORY DATA: This morning WBC 10.4, hemoglobin 7.7, hematocrit 22.8, platelet 162. Chemistry panel: Sodium 138, potassium 4.2, chloride 106, bicarb 24, BUN 17, creatinine 1.5, glucose 117, calcium 8.9. ASSESSMENT AND PLAN: 1. Acute renal failure, resolving; however, serum creatinine at relative plateau, not yet at baseline, likely due to low-normal blood pressure in the setting of being on extensive congestive heart failure medications as well as diuresis. It should be noted that some degree of chronicity can remain following acute tubular necrosis and so the patient may not go back to her initial baseline. Nevertheless, patient may also need to tolerate higher baseline serum creatinine in the setting of needing to improve cardiac optimization with congestive heart failure medications. Avoid nephrotoxic agents. Attempt to keep mean arterial pressure greater than 65. 2. Congestive heart failure exacerbation. Overall, symptomatically much improved. Exam also showing the patient is closer to being euvolemic; however, still with some volume excess that remains. Continue Lasix p.o. 20 mg b.i.d. as well as the rest of congestive heart failure medications. The patient will need to be on angiotensin-converting enzyme inhibitors/angiotensin receptor susan in infection prevention practitioner, but would wait till blood pressure is more stable before starting. 3. Chronic kidney disease. The patient with extensive peripheral vascular disease, likely has some degree of renal vascular disease as well. Urinalysis has shown variable amount of protein. We will obtain random urine for protein and creatinine to quantify. 4. Hypertension. As mentioned above, need to keep mean arterial pressures above 65. 5. Anemia, previously with iron deficiency as well as anemia due to chronic disease. Agree with checking stool for occult blood in the setting of downward trending of hemoglobin despite having been transfused and having received IV iron load. 6. Osteomyelitis. The patient currently on Zosyn 2.25 g q. 6 hours, correctly dosed for creatinine clearance less than 40. Dayne Schultz MD
[2017-06-11 07:46] LABS: HEMATOCRIT 26.7 % (34.0-47.0); MEAN CELL VOLUME 86.8 fl (81.0-99.0); MEAN CORPUSCULAR HEMOGLOBIN 28.5 pg (27.0-31.0); MEAN CORPUSCULAR HGB CONC 32.8 g/dL (33.0-37.0); WHITE BLOOD COUNT 10.5 K/uL (4.8-10.8)
[2017-06-11 08:00] LABS: CALCIUM 8.7 mg/dL (8.4-10.2); POTASSIUM 4.3 MMOL/L (3.6-5.0)
[2017-06-11] MEDS: Insulin Lispro (humaLOG) 100 Units/ml Inj SC SCH ×4 (08:00→22:35)
[2017-06-11] MEDS: Lidocaine 5% Patch TD SCH (10:46)
--- NOTE | 2017-06-11 12:19 | CP.PCM.PN ---
Subjective - Date & Time of Evaluation Date of Evaluation: 06/11/17 Time of Evaluation: 06:45 - Subjective Subjective: Podiatry- Dr. Reynoso Patient is a 66 year old female three days s/p partial exostectomy of left first metatarsal, partial exostectomy of left proximal phalangeal base, debridement of superficial ulceration left foot and excision of left tibial sesamoid. Patient states that she still has some pain today but is feeling better each day. Patient states that yesterday during therapy she became light headed, dizzy and eventually threw up. Patient states that medicine is adjusting her medications in order to try and alleviate this problem. She denies any further pedal complaints at this time. Patient denies N/V/F/C/CP/SOB Objective - Vital Signs/Intake and Output Vital Signs (last 24 hours): Temp Pulse Resp BP Pulse Ox 99.6 F 76 20 115/66 99 06/11/17 08:19 06/11/17 10:41 06/11/17 08:19 06/11/17 10:47 06/11/17 08:19 Intake and Output: 06/11/17 06/11/17 06:59 18:59 Intake Total 100 Output Total 200 Balance -100 - Medications Medications: Current Medications Acetaminophen (Tylenol 325mg Tab) 650 mg PO Q6 PRN PRN Reason: Pain, moderate (4-7) Last Admin: 06/06/17 13:04 Dose: 650 mg Acetaminophen (Tylenol 325mg Tab) 650 mg PO Q4 PRN PRN Reason: Pain, Mild (1-3) Aspirin (Aspirin Chewable) 81 mg PO DAILY [facility] Last Admin: 06/11/17 10:47 Dose: 81 mg Atorvastatin Calcium (Lipitor) 40 mg PO HS [facility] Last Admin: 06/10/17 22:05 Dose: 40 mg Carvedilol (Coreg) 9.375 mg PO Q12 [facility] Last Admin: 06/11/17 10:41 Dose: 9.375 mg Clopidogrel Bisulfate (Plavix) 75 mg PO DAILY [facility] Last Admin: 06/11/17 10:47 Dose: 75 mg Dextrose (Dextrose 50% Inj) 0 ml IV STAT PRN; Protocol PRN Reason: Hyglycemia Protocol Dextrose (Glutose 15) 0 gm PO ONCE PRN; Protocol PRN Reason: Hypoglycemia Protocol Furosemide (Lasix) 20 mg PO BID [facility] Last Admin: 06/11/17 10:47 Dose: 20 mg Glucagon (Glucagen Diagnostic Kit) 0 mg IM STAT PRN; Protocol PRN Reason: Hypoglycemia Protocol Heparin Sodium (Porcine) (Heparin) 5,000 units SC Q8 DASHAWN PRN Reason: Protocol Last Admin: 06/11/17 10:48 Dose: 5,000 units Piperacillin Sod/Tazobactam (Sod 2.25 gm/ Sodium Chloride) 100 mls @ 100 mls/ hr IVPB Q6H [facility] Last Admin: 06/11/17 11:25 Dose: 100 mls/hr Insulin Detemir (Levemir) 10 units SC HS [facility] Last Admin: 06/10/17 22:18 Dose: 10 units Insulin Human Lispro (Humalog) 4 units SC ACHS [facility] Last Admin: 06/11/17 11:29 Dose: 4 u Isosorbide Mononitrate (Imdur) 60 mg PO DAILY [facility] Last Admin: 06/11/17 10:41 Dose: 60 mg Lidocaine (Lidoderm) 2 ea TD DAILY [facility] Last Admin: 06/11/17 10:46 Dose: 2 ea Senna/Docusate Sodium (Senokot S 50 Mg-8.6 Mg) 2 tab PO HS [facility] Last Admin: 06/10/17 22:05 Dose: 2 tab - Labs Labs: 06/11/17 07:15 06/11/17 07:15 PT 12.7 Seconds (9.8-13.1) 06/08/17 05:00 INR 1.2 (0.9-1.2) 06/08/17 05:00 APTT 26.5 Seconds (25.6-37.1) D 06/08/17 05:00 - Constitutional Appears: Well, Non-toxic, No Acute Distress - Extremities Exam Additional comments: LLE focused examination: Dressing was clean and intact with no sanguinous strikethrough noted Vasc: DP/PT pulses palpable. CFT < 4 seconds x10, temperature gradient WNL. Edema around surgical site noted to be present but decreased at this time. Neuro: Epicritic and protective sensation grossly intact Derm: Surgical site noted to be well coapted with no signs of dehiscence, no periwound erythema, malodor, drainage or other clinical signs of infection. Ulcer site to left digit is nonerythematous with no drainage, malodor or other clinical signs of infection at this time MSK: Pain with palpation of the entire left LE, Pain with palpation near surgical site consistent with procedure performed - Neurological Exam Neurological Exam: Alert, Awake, Oriented x3 - Psychiatric Exam Psychiatric exam: Normal Affect, Normal Mood Assessment and Plan - Assessment and Plan (Free Text) Assessment: 66 year old patient three days s/p left foot partial exostectomy first metatarsal, partial exostectomy proximal phalanx base, excision tibial sesamoid secondary to OM Plan: Patient seen and evaluated at bedside Charts, labs and vitals reviewed; WBC 10.5, afebrile Plan discussed with Dr. Reynoso OR bone pathology report received: Acute OM found in First met head and tibial sesamoid, Proximal phalanx negative for OM Per Dr. Palacios to be DC'd on 7 days Keflex Patient stable from podiatry standpoint Upon DC home patient will follow up with Dr. Reynoso in wound care center
--- NOTE | 2017-06-11 14:49 | CP.PCM.PN ---
Subjective - Date & Time of Evaluation Date of Evaluation: 06/11/17 Time of Evaluation: 07:00 - Subjective Subjective: No acute overnight events. 66 yo F patient seen today at bedside she is in not acute distress but reports feeling sad due to her condition, reports good appetite, sleeping well last night. States mild pain in her L lower extremity due to surgery. Reports bowel movement yesterday. Denies fever, nausea, abdominal pain, vomiting, denies urinary symptoms. No suicidal ideation. PHQ-9 done, score 5 Objective - Vital Signs/Intake and Output Vital Signs (last 24 hours): Temp Pulse Resp BP Pulse Ox 99.6 F 76 20 115/66 99 06/11/17 08:19 06/11/17 10:41 06/11/17 08:19 06/11/17 10:47 06/11/17 08:19 Intake and Output: 06/11/17 06/11/17 06:59 18:59 Intake Total 100 Output Total 200 Balance -100 - Medications Medications: Current Medications Acetaminophen (Tylenol 325mg Tab) 650 mg PO Q6 PRN PRN Reason: Pain, moderate (4-7) Last Admin: 06/06/17 13:04 Dose: 650 mg Acetaminophen (Tylenol 325mg Tab) 650 mg PO Q4 PRN PRN Reason: Pain, Mild (1-3) Aspirin (Aspirin Chewable) 81 mg PO DAILY [facility] Last Admin: 06/11/17 10:47 Dose: 81 mg Atorvastatin Calcium (Lipitor) 40 mg PO HS [facility] Last Admin: 06/10/17 22:05 Dose: 40 mg Carvedilol (Coreg) 9.375 mg PO Q12 [facility] Last Admin: 06/11/17 10:41 Dose: 9.375 mg Clopidogrel Bisulfate (Plavix) 75 mg PO DAILY [facility] Last Admin: 06/11/17 10:47 Dose: 75 mg Dextrose (Dextrose 50% Inj) 0 ml IV STAT PRN; Protocol PRN Reason: Hyglycemia Protocol Dextrose (Glutose 15) 0 gm PO ONCE PRN; Protocol PRN Reason: Hypoglycemia Protocol Furosemide (Lasix) 20 mg PO BID [facility] Last Admin: 06/11/17 10:47 Dose: 20 mg Glucagon (Glucagen Diagnostic Kit) 0 mg IM STAT PRN; Protocol PRN Reason: Hypoglycemia Protocol Heparin Sodium (Porcine) (Heparin) 5,000 units SC Q8 DASHAWN PRN Reason: Protocol Last Admin: 06/11/17 10:48 Dose: 5,000 units Piperacillin Sod/Tazobactam (Sod 2.25 gm/ Sodium Chloride) 100 mls @ 100 mls/ hr IVPB Q6H [facility] Last Admin: 06/11/17 11:25 Dose: 100 mls/hr Insulin Detemir (Levemir) 10 units SC HS [facility] Last Admin: 06/10/17 22:18 Dose: 10 units Insulin Human Lispro (Humalog) 4 units SC ACHS [facility] Last Admin: 06/11/17 11:29 Dose: 4 u Isosorbide Mononitrate (Imdur) 60 mg PO DAILY [facility] Last Admin: 06/11/17 10:41 Dose: 60 mg Lidocaine (Lidoderm) 2 ea TD DAILY [facility] Last Admin: 06/11/17 10:46 Dose: 2 ea Senna/Docusate Sodium (Senokot S 50 Mg-8.6 Mg) 2 tab PO HS [facility] Last Admin: 06/10/17 22:05 Dose: 2 tab - Labs Labs: 06/11/17 07:15 06/11/17 07:15 PT 12.7 Seconds (9.8-13.1) 06/08/17 05:00 INR 1.2 (0.9-1.2) 06/08/17 05:00 APTT 26.5 Seconds (25.6-37.1) D 06/08/17 05:00 - Constitutional Appears: Well, No Acute Distress - Head Exam Head Exam: ATRAUMATIC, NORMOCEPHALIC - Eye Exam Eye Exam: EOMI, Normal appearance, PERRL - ENT Exam ENT Exam: Mucous Membranes Dry - Neck Exam Neck Exam: Full ROM. absent: Lymphadenopathy - Respiratory Exam Respiratory Exam: Rales (bilateral at lung bases.), NORMAL BREATHING PATTERN - Cardiovascular Exam Cardiovascular Exam: RRR, +S1, +S2. absent: Murmur - GI/Abdominal Exam GI & Abdominal Exam: Soft, Normal Bowel Sounds. absent: Tenderness, Organomegaly - Rectal Exam Rectal Exam: Deferred - Extremities Exam Extremities Exam: Joint Swelling (Mild L toe swelling due to surgery.). absent : Calf Tenderness Additional comments: L foot dressing clean w/o bloody strikes noted. - Back Exam Back Exam: NORMAL INSPECTION. absent: paraspinal tenderness, vertebral tenderness - Neurological Exam Neurological Exam: Alert, Awake, CN II-XII Intact, Oriented x3, Reflexes Normal. absent: Abnormal Gait (Due to surgery in her L foot) Neuro motor strength exam: Left Upper Extremity: 5, Right Upper Extremity: 5, Left Lower Extremity: 5, Right Lower Extremity: 5 Additional comments: Sensation intact in both upper extremities and both lower extremities. - Psychiatric Exam Psychiatric exam: Depressed. absent: Homicidal Ideation, Suicidal Ideation Assessment and Plan - Assessment and Plan (Free Text) Assessment: - Assessment and Plan (Free Text) Assessment: 66 y.o. female with hx of Peripheral vascular disease admitted for osteomyelitis POD 3 Partial resection of 1st metatarsal L foot. #Osteomyelitis, Acute -Partial resection of 1st metatarsal L foot completed in OR by Podiatry (06/08) . -C/W Zosyn Day 18 -Cleared for podiatry and F/U in 1 week. - ID Dr Palacios recommend treatment with Keflex for 7 days. -PT evaluation: JHONNY recommended. #Acute Decompensated Systolic Heart Failure- EF 20%, Resolving -Last Echo (06/10) EF <15-20% -Reduce afterload and heart rate, Coreg 9.375mg PO, and Isosorbid Mononitrate 60mg -Monitor I/O's. -Dr Russo recommend life vest, speaking with social service worker regarding. #Acute Kidney Injury-Improving/stable -Crea 1.5 today -Cleared for nephrology, Dr Schultz aware about dispo. -24 hrs urine collection #Constipation-Improving -Sennakot 2 tab PO qHS # Anemia, Acute s/p PRBC and I.V. Venofer -Hg today 8.8 -FOBT x 2 negative early on admission -F/u CBC -FOBT today negative # Peripheral Vascular Disease- POD #6 Left lower leg revascularization - Revascularization complete at [place] -Monitor pedal pulses daily -PT/OT # Diabetes Mellitus Type 2 -Levemir 10 units daily, Lispro 4 units with meals #Hypertension -c/w current management -Coreg 9.375mg Q12 # Hyperlipidemia -Continue home meds: atorvastatin # Depression -Sertraline 25 mg PO daily. # DVT prophylaxis -Heparin 5000 units SQ.
--- NOTE | 2017-06-11 21:24 | CP.PCM.PN ---
Subjective - Date & Time of Evaluation Date of Evaluation: 06/11/17 Time of Evaluation: 21:45 - Subjective Subjective: Patient not reporting shortness of breath; Objective - Vital Signs/Intake and Output Vital Signs (last 24 hours): Temp Pulse Resp BP Pulse Ox 98.5 F 69 17 110/65 98 06/11/17 16:08 06/11/17 16:08 06/11/17 16:08 06/11/17 18:26 06/11/17 16:08 - Medications Medications: Current Medications Acetaminophen (Tylenol 325mg Tab) 650 mg PO Q6 PRN PRN Reason: Pain, moderate (4-7) Last Admin: 06/06/17 13:04 Dose: 650 mg Acetaminophen (Tylenol 325mg Tab) 650 mg PO Q4 PRN PRN Reason: Pain, Mild (1-3) Aspirin (Aspirin Chewable) 81 mg PO DAILY [facility] Last Admin: 06/11/17 10:47 Dose: 81 mg Atorvastatin Calcium (Lipitor) 40 mg PO HS [facility] Last Admin: 06/10/17 22:05 Dose: 40 mg Carvedilol (Coreg) 9.375 mg PO Q12 [facility] Last Admin: 06/11/17 10:41 Dose: 9.375 mg Clopidogrel Bisulfate (Plavix) 75 mg PO DAILY [facility] Last Admin: 06/11/17 10:47 Dose: 75 mg Dextrose (Dextrose 50% Inj) 0 ml IV STAT PRN; Protocol PRN Reason: Hyglycemia Protocol Dextrose (Glutose 15) 0 gm PO ONCE PRN; Protocol PRN Reason: Hypoglycemia Protocol Furosemide (Lasix) 20 mg PO BID [facility] Last Admin: 06/11/17 18:26 Dose: 20 mg Glucagon (Glucagen Diagnostic Kit) 0 mg IM STAT PRN; Protocol PRN Reason: Hypoglycemia Protocol Heparin Sodium (Porcine) (Heparin) 5,000 units SC Q8 [facility] PRN Reason: Protocol Last Admin: 06/11/17 18:27 Dose: 5,000 units Piperacillin Sod/Tazobactam (Sod 2.25 gm/ Sodium Chloride) 100 mls @ 100 mls/ hr IVPB Q6H [facility] Last Admin: 06/11/17 18:23 Dose: 100 mls/hr Insulin Detemir (Levemir) 10 units SC HS [facility] Last Admin: 06/10/17 22:18 Dose: 10 units Insulin Human Lispro (Humalog) 4 units SC ACHS [facility] Last Admin: 06/11/17 17:23 Dose: Not Given Isosorbide Mononitrate (Imdur) 60 mg PO DAILY [facility] Last Admin: 06/11/17 10:41 Dose: 60 mg Lidocaine (Lidoderm) 2 ea TD DAILY [facility] Last Admin: 06/11/17 10:46 Dose: 2 ea Senna/Docusate Sodium (Senokot S 50 Mg-8.6 Mg) 2 tab PO HS [facility] Last Admin: 06/10/17 22:05 Dose: 2 tab Sertraline HCl (Zoloft) 25 mg PO HS [facility] - Labs Labs: 06/11/17 07:15 06/11/17 07:15 PT 12.7 Seconds (9.8-13.1) 06/08/17 05:00 INR 1.2 (0.9-1.2) 06/08/17 05:00 APTT 26.5 Seconds (25.6-37.1) D 06/08/17 05:00 - Constitutional Appears: Non-toxic, No Acute Distress - Head Exam Head Exam: NORMAL INSPECTION - Eye Exam Eye Exam: Normal appearance - ENT Exam ENT Exam: Mucous Membranes Moist - Respiratory Exam Respiratory Exam: NORMAL BREATHING PATTERN. absent: Respiratory Distress Additional comments: Mild basal rales; - Cardiovascular Exam Cardiovascular Exam: REGULAR RHYTHM, +S1, +S2 - GI/Abdominal Exam GI & Abdominal Exam: Soft. absent: Distended, Tenderness - Neurological Exam Neurological Exam: Alert, Awake - Psychiatric Exam Psychiatric exam: Anxious - Skin Skin Exam: Normal Color, Warm. absent: Cyanosis Assessment and Plan (1) Acute renal failure Assessment & Plan: Resolving; serum creatinine not back to initial admission level of 1.0, however , this was only one reading and unclear if it truly represented patient's true baseline; Discussed concern with tubing machine operator today regarding low/normal BP and decreased renal perfusion in the setting of severe PAD; recommended the need for pre-load and after-load reduction in the setting of severe systolic CHF and that SBP 90- 100 is adequate; Will aim to continue cardiac optimization with hopes that this will improve renal perfusion; Will d/c imdur and start SHABBIR inhibitor at low dose and titrate upward to achieve this goal; Status: Acute (2) Cardiomyopathy, dilated Assessment & Plan: Severe systolic CHF, much improved; -see above, starting lisinopril 2.5 mg daily -continue lasix 20 mg PO bid Status: Acute (3) Osteomyelitis Assessment & Plan: On zosyn 2.25 g q6h, correctly dosed for CrCl < 40 ml/min; Status: Acute (4) PVD (peripheral vascular disease) Status: Acute (5) HTN (hypertension) Assessment & Plan: Continue current meds; BP at goal per cardio; changes as above; Status: Chronic (6) CKD (chronic kidney disease) Assessment & Plan: Still awaiting random urine prot, microalbumin and creatinine level; decpiphering proteinuria is essential for any further workup; Status: Chronic (7) Anemia Status: Acute
[2017-06-11] MEDS: Docusate-Senna 50 mg-8.6 mg Tab PO SCH (21:51)
[2017-06-11] MEDS: Insulin Detemir 100 Units/ml Inj SC SCH (22:36)
[2017-06-12] MEDS: Insulin Lispro (humaLOG) 100 Units/ml Inj SC SCH ×4 (07:30→22:00)
[2017-06-12 08:40] LABS: HEMATOCRIT 27.5 % (34.0-47.0); MEAN CELL VOLUME 86.6 fl (81.0-99.0); MEAN CORPUSCULAR HEMOGLOBIN 28.5 pg (27.0-31.0); MEAN CORPUSCULAR HGB CONC 32.9 g/dL (33.0-37.0); RED CELL DISTRIBUTION WIDTH 18.3 % (11.5-14.5); WHITE BLOOD COUNT 8.7 K/uL (4.8-10.8)
[2017-06-12 08:44] LABS: BLOOD UREA NITROGEN 16 mg/dl (7-17); CALCIUM 8.8 mg/dL (8.4-10.2); CARBON DIOXIDE 22 mmol/L (22-30); CHLORIDE 104 mmol/L (98-107); GFR AFRICAN-AMERICAN 46; GLUCOSE,RANDOM 72 mg/dL (65-105); POTASSIUM 3.5 MMOL/L (3.6-5.0); SODIUM 137 mmol/l (132-148)
[2017-06-12] MEDS: Lidocaine 5% Patch TD SCH (09:06)
--- NOTE | 2017-06-12 09:55 | CP.PCM.PN ---
<Jun Reynoso - Last Filed: 06/12/17 09:54> Subjective - Date & Time of Evaluation Date of Evaluation: 06/12/17 Time of Evaluation: 08:45 - Subjective Subjective: pt seen s/p ostectomy met 1 left and debridement of ulcers . Objective - Vital Signs/Intake and Output Vital Signs (last 24 hours): Temp Pulse Resp BP Pulse Ox 98.2 F 65 18 110/68 94 L 06/12/17 07:45 06/12/17 09:02 06/12/17 07:45 06/12/17 09:06 06/12/17 07:45 Intake and Output: 06/12/17 06/12/17 06:59 18:59 Intake Total 180 Output Total 200 Balance -20 - Medications Medications: Current Medications Acetaminophen (Tylenol 325mg Tab) 650 mg PO Q6 PRN PRN Reason: Pain, moderate (4-7) Last Admin: 06/12/17 00:15 Dose: 650 mg Acetaminophen (Tylenol 325mg Tab) 650 mg PO Q4 PRN PRN Reason: Pain, Mild (1-3) Aspirin (Aspirin Chewable) 81 mg PO DAILY [facility] Last Admin: 06/12/17 09:01 Dose: 81 mg Atorvastatin Calcium (Lipitor) 40 mg PO HS [facility] Last Admin: 06/11/17 21:50 Dose: 40 mg Carvedilol (Coreg) 9.375 mg PO Q12 [facility] Last Admin: 06/12/17 09:02 Dose: 9.375 mg Clopidogrel Bisulfate (Plavix) 75 mg PO DAILY [facility] Last Admin: 06/12/17 09:07 Dose: 75 mg Dextrose (Dextrose 50% Inj) 0 ml IV STAT PRN; Protocol PRN Reason: Hyglycemia Protocol Dextrose (Glutose 15) 0 gm PO ONCE PRN; Protocol PRN Reason: Hypoglycemia Protocol Furosemide (Lasix) 20 mg PO BID [facility] Last Admin: 06/12/17 09:06 Dose: 20 mg Glucagon (Glucagen Diagnostic Kit) 0 mg IM STAT PRN; Protocol PRN Reason: Hypoglycemia Protocol Heparin Sodium (Porcine) (Heparin) 5,000 units SC Q8 [facility] PRN Reason: Protocol Last Admin: 06/12/17 09:03 Dose: 5,000 units Insulin Detemir (Levemir) 10 units SC HS [facility] Last Admin: 06/11/17 22:36 Dose: 10 units Insulin Human Lispro (Humalog) 4 units SC ACHS [facility] Last Admin: 06/12/17 07:30 Dose: Not Given Lidocaine (Lidoderm) 2 ea TD DAILY [facility] Last Admin: 06/12/17 09:06 Dose: 2 ea Lisinopril (Zestril) 2.5 mg PO DAILY [facility] Senna/Docusate Sodium (Senokot S 50 Mg-8.6 Mg) 2 tab PO HS [facility] Last Admin: 06/11/17 21:51 Dose: 2 tab Sertraline HCl (Zoloft) 25 mg PO HS [facility] Last Admin: 06/11/17 21:52 Dose: 25 mg - Labs Labs: 06/12/17 06:30 06/12/17 06:30 PT 12.7 Seconds (9.8-13.1) 06/08/17 05:00 INR 1.2 (0.9-1.2) 06/08/17 05:00 APTT 26.5 Seconds (25.6-37.1) D 06/08/17 05:00 <Josh Sterling - Last Filed: 06/12/17 15:59> Subjective - Subjective Subjective: 66 year odl female seen 4 days s/p ostectomy of left 1st metatarsal and debridement of ulcers. Pt reports continue mild, well controlled post-operative pain. Likely exacerbated as pt has been ambulating without prescribed post- operative shoe. She denies and acute overnight events. She denies recent f/c/cp/ sob/n/v. Objective - Vital Signs/Intake and Output Vital Signs (last 24 hours): Temp Pulse Resp BP Pulse Ox 98.2 F 63 18 104/68 94 L 06/12/17 07:45 06/12/17 10:25 06/12/17 07:45 06/12/17 10:25 06/12/17 07:45 Intake and Output: 06/12/17 06/12/17 06:59 18:59 Intake Total 180 Output Total 200 Balance -20 - Medications Medications: Current Medications Acetaminophen (Tylenol 325mg Tab) 650 mg PO Q6 PRN PRN Reason: Pain, moderate (4-7) Last Admin: 06/12/17 00:15 Dose: 650 mg Acetaminophen (Tylenol 325mg Tab) 650 mg PO Q4 PRN PRN Reason: Pain, Mild (1-3) Aspirin (Aspirin Chewable) 81 mg PO DAILY [facility] Last Admin: 06/12/17 09:01 Dose: 81 mg Atorvastatin Calcium (Lipitor) 40 mg PO HS [facility] Last Admin: 06/11/17 21:50 Dose: 40 mg Carvedilol (Coreg) 9.375 mg PO Q12 [facility] Last Admin: 06/12/17 09:02 Dose: 9.375 mg Cephalexin Monohydrate (Keflex) 500 mg PO Q6 [facility] Clopidogrel Bisulfate (Plavix) 75 mg PO DAILY [facility] Last Admin: 06/12/17 09:07 Dose: 75 mg Dextrose (Dextrose 50% Inj) 0 ml IV STAT PRN; Protocol PRN Reason: Hyglycemia Protocol Dextrose (Glutose 15) 0 gm PO ONCE PRN; Protocol PRN Reason: Hypoglycemia Protocol Furosemide (Lasix) 20 mg PO BID [facility] Last Admin: 06/12/17 09:06 Dose: 20 mg Glucagon (Glucagen Diagnostic Kit) 0 mg IM STAT PRN; Protocol PRN Reason: Hypoglycemia Protocol Heparin Sodium (Porcine) (Heparin) 5,000 units SC Q8 [facility] PRN Reason: Protocol Last Admin: 06/12/17 09:03 Dose: 5,000 units Insulin Detemir (Levemir) 10 units SC HS [facility] Last Admin: 06/11/17 22:36 Dose: 10 units Insulin Human Lispro (Humalog) 4 units SC ACHS [facility] Last Admin: 06/12/17 11:39 Dose: 4 u Lidocaine (Lidoderm) 2 ea TD DAILY [facility] Last Admin: 06/12/17 09:06 Dose: 2 ea Lisinopril (Zestril) 2.5 mg PO DAILY@0900 [facility] Last Admin: 06/12/17 11:41 Dose: 2.5 mg Senna/Docusate Sodium (Senokot S 50 Mg-8.6 Mg) 2 tab PO HS [facility] Last Admin: 06/11/17 21:51 Dose: 2 tab Sertraline HCl (Zoloft) 25 mg PO HS [facility] Last Admin: 06/11/17 21:52 Dose: 25 mg - Labs Labs: 06/12/17 06:30 06/12/17 06:30 PT 12.7 Seconds (9.8-13.1) 06/08/17 05:00 INR 1.2 (0.9-1.2) 06/08/17 05:00 APTT 26.5 Seconds (25.6-37.1) D 06/08/17 05:00 - Constitutional Appears: Well, Non-toxic, No Acute Distress - Extremities Exam Additional comments: LLE focused examination: Dressing was clean and intact with sangious strikethrough noted Vasc: DP/PT pulses palpable. CFT < 4 seconds x10, temperature gradient WNL. Diffuse edema noted to patient's left foot consistent with surgical procedure yesterday. Neuro: Epicritic and protective sensation grossly intact Derm: Surgical site noted to be well coapted with no signs of dehiscence, no periwound erythema, malodor, drainage or other clinical signs of infection. Ulcer site to left digit is nonerythematous with no drainage, malodor or other clinical signs of infection at this time MSK: Pain with palpation of the entire left LE, Pain with palpation near surgical site consistent with procedure performed - Neurological Exam Neurological Exam: Alert, Awake, Oriented x3 - Psychiatric Exam Psychiatric exam: Normal Affect, Normal Mood Assessment and Plan - Assessment and Plan (Free Text) Assessment: 66 year old patient 4 days s/p left foot partial exostectomy first metatarsal, partial exostectomy proximal phalanx base, excision tibial sesamoid secondary to OM Plan: Patient seen and evaluated at bedside with attending Dr. Reynoso. Charts, labs and vitals reviewed; WBC 8.7, afebrile IV abx discontinued per Id. Day 1/7 of oral Keflex per ID recommendation. Patient stable from podiatry standpoint Upon DC home patient will follow up with Dr. Reynoso in wound care center
--- NOTE | 2017-06-12 13:42 | CP.PCM.PN ---
Subjective - Date & Time of Evaluation Date of Evaluation: 06/12/17 Time of Evaluation: 09:00 - Subjective Subjective: Patient seen and examined at bedside. No acute events overnight. No distress reported. States mild pain in her L lower extremity due to surgery. Patient was seen by podiatry earlier this AM. Reports good appetite, sleeping well. Reports normal bowel movement. Denies fever, nausea, abdominal pain, vomiting, denies urinary symptoms. No suicidal ideation at this time though history of. Patient reports she is to her who is of [place] descent. No initiation of documented status application started. Objective - Vital Signs/Intake and Output Vital Signs (last 24 hours): Temp Pulse Resp BP Pulse Ox 98.2 F 63 18 104/68 94 L 06/12/17 07:45 06/12/17 10:25 06/12/17 07:45 06/12/17 10:25 06/12/17 07:45 Intake and Output: 06/12/17 06/12/17 06:59 18:59 Intake Total 180 Output Total 200 Balance -20 - Medications Medications: Current Medications Acetaminophen (Tylenol 325mg Tab) 650 mg PO Q6 PRN PRN Reason: Pain, moderate (4-7) Last Admin: 06/12/17 00:15 Dose: 650 mg Acetaminophen (Tylenol 325mg Tab) 650 mg PO Q4 PRN PRN Reason: Pain, Mild (1-3) Aspirin (Aspirin Chewable) 81 mg PO DAILY [facility] Last Admin: 06/12/17 09:01 Dose: 81 mg Atorvastatin Calcium (Lipitor) 40 mg PO HS [facility] Last Admin: 06/11/17 21:50 Dose: 40 mg Carvedilol (Coreg) 9.375 mg PO Q12 [facility] Last Admin: 06/12/17 09:02 Dose: 9.375 mg Cephalexin Monohydrate (Keflex) 500 mg PO Q6 [facility] Clopidogrel Bisulfate (Plavix) 75 mg PO DAILY [facility] Last Admin: 06/12/17 09:07 Dose: 75 mg Dextrose (Dextrose 50% Inj) 0 ml IV STAT PRN; Protocol PRN Reason: Hyglycemia Protocol Dextrose (Glutose 15) 0 gm PO ONCE PRN; Protocol PRN Reason: Hypoglycemia Protocol Furosemide (Lasix) 20 mg PO BID [facility] Last Admin: 06/12/17 09:06 Dose: 20 mg Glucagon (Glucagen Diagnostic Kit) 0 mg IM STAT PRN; Protocol PRN Reason: Hypoglycemia Protocol Heparin Sodium (Porcine) (Heparin) 5,000 units SC Q8 [facility] PRN Reason: Protocol Last Admin: 06/12/17 09:03 Dose: 5,000 units Insulin Detemir (Levemir) 10 units SC HS [facility] Last Admin: 06/11/17 22:36 Dose: 10 units Insulin Human Lispro (Humalog) 4 units SC ACHS [facility] Last Admin: 06/12/17 11:39 Dose: 4 u Lidocaine (Lidoderm) 2 ea TD DAILY [facility] Last Admin: 06/12/17 09:06 Dose: 2 ea Lisinopril (Zestril) 2.5 mg PO DAILY@0900 [facility] Last Admin: 06/12/17 11:41 Dose: 2.5 mg Senna/Docusate Sodium (Senokot S 50 Mg-8.6 Mg) 2 tab PO HS [facility] Last Admin: 06/11/17 21:51 Dose: 2 tab Sertraline HCl (Zoloft) 25 mg PO [facility] Last Admin: 06/11/17 21:52 Dose: 25 mg - Labs Labs: 06/12/17 06:30 06/12/17 06:30 PT 12.7 Seconds (9.8-13.1) 06/08/17 05:00 INR 1.2 (0.9-1.2) 06/08/17 05:00 APTT 26.5 Seconds (25.6-37.1) D 06/08/17 05:00 - Constitutional Appears: Non-toxic, No Acute Distress - Head Exam Head Exam: ATRAUMATIC, NORMAL INSPECTION, NORMOCEPHALIC - Eye Exam Eye Exam: Normal appearance - Neck Exam Neck Exam: Normal Inspection - Respiratory Exam Respiratory Exam: Clear to Ausculation Bilateral, NORMAL BREATHING PATTERN. absent: Rales, Rhonchi, Wheezes - Cardiovascular Exam Cardiovascular Exam: REGULAR RHYTHM, RRR, +S1, +S2 - GI/Abdominal Exam GI & Abdominal Exam: Soft, Normal Bowel Sounds. absent: Tenderness - Extremities Exam Extremities Exam: Normal Inspection (Mild L toe swelling due to surgery.). absent: Calf Tenderness, Pedal Edema - Neurological Exam Neurological Exam: Alert, Awake, Oriented x3 - Psychiatric Exam Psychiatric exam: Depressed - Skin Skin Exam: Dry, Intact, Normal Color, Warm Assessment and Plan - Assessment and Plan (Free Text) Assessment: 66 y.o. female with hx of Peripheral vascular disease admitted for osteomyelitis POD 4 Partial resection of 1st metatarsal L foot. #Osteomyelitis, Acute -Partial resection of 1st metatarsal L foot completed in OR by Podiatry (06/08) . -Cleared for podiatry and F/U in 1 week. -ID Dr Palacios recommend treatment with Keflex for 7 days. -D/C Zosyn -Keflex started today for total of 7 days -PT evaluation: JHONNY recommended. -Encouraged OOB #Acute Decompensated Systolic Heart Failure- EF 20% -Last Echo (06/10) EF <15-20% -Reduce afterload and heart rate, Coreg 9.375mg PO -Isosorbid Mononitrate 60mg discontinued by Nephro in conjunction with cardiology -started lisinopril 2.5 mg daily -continue lasix 20 mg PO bid -Monitor I/O's. -Dr Russo recommends life vest, speaking with psych social worker regarding. Pending. #Acute Kidney Injury-Improving/stable -Crea 1.4 today -Nephrology recommendations appreciated Dr Schultz aware about dispo. -24 hrs urine collection #Constipation-Improving -Sennakot 2 tab PO qHS # Anemia, Acute s/p PRBC and I.V. Venofer improving -Hg today 9.0 -FOBT x 3 negative during admission -F/u CBC # Peripheral Vascular Disease- s/p Left lower leg revascularization -Revascularization completed at [place] -Monitor pedal pulses daily -PT/OT # Diabetes Mellitus Type 2 -Levemir 10 units daily, Lispro 4 units with meals #Hypertension -c/w current management -Coreg 9.375mg Q12 # Hyperlipidemia -Continue home meds: atorvastatin # Depression -No improvement yet, interfering with patient's rehab progress -Sertraline 25 mg PO daily. # DVT prophylaxis -Heparin 5000 units SQ.
[2017-06-12] MEDS: Docusate-Senna 50 mg-8.6 mg Tab PO SCH (22:41)
[2017-06-12] MEDS: Insulin Detemir 100 Units/ml Inj SC SCH (22:42)
--- NOTE | 2017-06-12 23:14 | CP.PCM.PN ---
Subjective - Date & Time of Evaluation Date of Evaluation: 06/12/17 Time of Evaluation: 11:00 - Subjective Subjective: Patient reports some sob overnight, not currently; Objective - Vital Signs/Intake and Output Vital Signs (last 24 hours): Temp Pulse Resp BP Pulse Ox 98.9 F 72 20 145/70 98 06/12/17 16:29 06/12/17 21:16 06/12/17 16:29 06/12/17 21:16 06/12/17 16:29 - Medications Medications: Current Medications Acetaminophen (Tylenol 325mg Tab) 650 mg PO Q6 PRN PRN Reason: Pain, moderate (4-7) Last Admin: 06/12/17 00:15 Dose: 650 mg Acetaminophen (Tylenol 325mg Tab) 650 mg PO Q4 PRN PRN Reason: Pain, Mild (1-3) Aspirin (Aspirin Chewable) 81 mg PO DAILY [facility] Last Admin: 06/12/17 09:01 Dose: 81 mg Atorvastatin Calcium (Lipitor) 40 mg PO HS [facility] Last Admin: 06/12/17 21:17 Dose: 40 mg Carvedilol (Coreg) 9.375 mg PO Q12 [facility] Last Admin: 06/12/17 21:16 Dose: 9.375 mg Cephalexin Monohydrate (Keflex) 500 mg PO Q6 [facility] Last Admin: 06/12/17 22:40 Dose: 500 mg Clopidogrel Bisulfate (Plavix) 75 mg PO DAILY [facility] Last Admin: 06/12/17 09:07 Dose: 75 mg Dextrose (Dextrose 50% Inj) 0 ml IV STAT PRN; Protocol PRN Reason: Hyglycemia Protocol Dextrose (Glutose 15) 0 gm PO ONCE PRN; Protocol PRN Reason: Hypoglycemia Protocol Furosemide (Lasix) 20 mg PO BID [facility] Last Admin: 06/12/17 16:58 Dose: 20 mg Glucagon (Glucagen Diagnostic Kit) 0 mg IM STAT PRN; Protocol PRN Reason: Hypoglycemia Protocol Heparin Sodium (Porcine) (Heparin) 5,000 units SC Q8 [facility] PRN Reason: Protocol Last Admin: 06/12/17 16:56 Dose: 5,000 units Insulin Detemir (Levemir) 10 units SC HS [facility] Last Admin: 06/12/17 22:42 Dose: 10 units Insulin Human Lispro (Humalog) 4 units SC [facility] Lidocaine (Lidoderm) 2 ea TD DAILY [facility] Last Admin: 06/12/17 09:06 Dose: 2 ea Lisinopril (Zestril) 10 mg PO DAILY@0900 [facility] Senna/Docusate Sodium (Senokot S 50 Mg-8.6 Mg) 2 tab PO HS [facility] Last Admin: 06/12/17 22:41 Dose: 2 tab Sertraline HCl (Zoloft) 25 mg PO HS [facility] Last Admin: 06/12/17 22:40 Dose: 25 mg - Labs Labs: 06/12/17 06:30 06/12/17 06:30 PT 12.7 Seconds (9.8-13.1) 06/08/17 05:00 INR 1.2 (0.9-1.2) 06/08/17 05:00 APTT 26.5 Seconds (25.6-37.1) D 06/08/17 05:00 - Constitutional Appears: Non-toxic, No Acute Distress - Head Exam Head Exam: NORMAL INSPECTION - Eye Exam Eye Exam: Normal appearance - ENT Exam ENT Exam: Mucous Membranes Moist - Respiratory Exam Additional comments: Bilateral insp rales; - Cardiovascular Exam Cardiovascular Exam: REGULAR RHYTHM, JVD, +S1, +S2 - GI/Abdominal Exam GI & Abdominal Exam: Soft. absent: Distended, Tenderness - Exam Exam: absent: Bladder Distension - Extremities Exam Additional comments: Mild lower ext edema b/l; - Neurological Exam Neurological Exam: Alert, Awake - Skin Skin Exam: Warm. absent: Cyanosis Assessment and Plan (1) Acute renal failure Assessment & Plan: Serum creatinine at plateau; goal is to optimize cardiac function to help renal perfusion; SHABBIR inhibitor started and being titrated upward; can expect up to ~30 % increase in serum creatinine which will need to be tolerated; Status: Acute (2) Cardiomyopathy, dilated Assessment & Plan: Acute decompensated systolic CHF; much improved but still with volume excess on exam; lisinopril started in place of hydralazine/imdur, will titrate upward; keeping on same dose of lasix (20 mg PO bid) for now; Status: Acute (3) Osteomyelitis Assessment & Plan: On zosyn 2.25 g q6h, dose adjusted for renal insufficiency; Status: Acute (4) PVD (peripheral vascular disease) Status: Acute (5) HTN (hypertension) Status: Chronic (6) CKD (chronic kidney disease) Assessment & Plan: Appears to be mainly non-proteinuric CKD by random urine prot/creat which is consistent with renovascular disease/cardiorenal etiology; still awaiitng urine microalbumin level; need to improve cardiac status as mentioned above; Status: Chronic (7) Anemia Status: Acute
[2017-06-13] MEDS ORDERED: Insulin Lispro (humaLOG) 100 Units/ml Inj SC SCH ×2 (07:30→11:30)
[2017-06-13 08:03] LABS: HEMATOCRIT 27.4 % (34.0-47.0); MEAN CELL VOLUME 86.5 fl (81.0-99.0); MEAN CORPUSCULAR HEMOGLOBIN 28.8 pg (27.0-31.0); MEAN CORPUSCULAR HGB CONC 33.3 g/dL (33.0-37.0); RED CELL DISTRIBUTION WIDTH 18.4 % (11.5-14.5); WHITE BLOOD COUNT 7.4 K/uL (4.8-10.8)
[2017-06-13 08:14] LABS: CALCIUM 8.7 mg/dL (8.4-10.2)
[2017-06-13 08:18] LABS: POTASSIUM 2.9 MMOL/L (3.6-5.0)
--- NOTE | 2017-06-13 08:43 | CP.PCM.PN ---
Subjective - Date & Time of Evaluation Date of Evaluation: 06/13/17 Time of Evaluation: 08:10 - Subjective Subjective: Patient seen and examined at bedside. No acute events overnight. No distress reported. She is sitting up on bed taking breakfast. States mild pain in her L lower extremity due to surgery. Reports good appetite, sleeping well. Reports normal bowel movement. Denies fever, nausea, abdominal pain, vomiting, no urinary symptoms. No suicidal ideation at this time. Reports feeling a little more animated this morning. Patient has been sitting up on chair during the day. Objective - Vital Signs/Intake and Output Vital Signs (last 24 hours): Temp Pulse Resp BP Pulse Ox 98 F 62 18 109/62 98 06/13/17 07:29 06/13/17 07:29 06/13/17 07:29 06/13/17 07:29 06/13/17 07:29 Intake and Output: 06/13/17 06/13/17 06:59 18:59 Intake Total 180 Balance 180 - Medications Medications: Current Medications Acetaminophen (Tylenol 325mg Tab) 650 mg PO Q6 PRN PRN Reason: Pain, moderate (4-7) Last Admin: 06/13/17 02:58 Dose: 650 mg Acetaminophen (Tylenol 325mg Tab) 650 mg PO Q4 PRN PRN Reason: Pain, Mild (1-3) Aspirin (Aspirin Chewable) 81 mg PO DAILY [facility] Last Admin: 06/12/17 09:01 Dose: 81 mg Atorvastatin Calcium (Lipitor) 40 mg PO HS [facility] Last Admin: 06/12/17 21:17 Dose: 40 mg Carvedilol (Coreg) 9.375 mg PO Q12 [facility] Last Admin: 06/12/17 21:16 Dose: 9.375 mg Cephalexin Monohydrate (Keflex) 500 mg PO Q6 [facility] Last Admin: 06/13/17 04:41 Dose: 500 mg Clopidogrel Bisulfate (Plavix) 75 mg PO DAILY [facility] Last Admin: 06/12/17 09:07 Dose: 75 mg Dextrose (Dextrose 50% Inj) 0 ml IV STAT PRN; Protocol PRN Reason: Hyglycemia Protocol Dextrose (Glutose 15) 0 gm PO ONCE PRN; Protocol PRN Reason: Hypoglycemia Protocol Furosemide (Lasix) 20 mg PO BID [facility] Last Admin: 06/12/17 16:58 Dose: 20 mg Glucagon (Glucagen Diagnostic Kit) 0 mg IM STAT PRN; Protocol PRN Reason: Hypoglycemia Protocol Heparin Sodium (Porcine) (Heparin) 5,000 units SC Q8 [facility] PRN Reason: Protocol Last Admin: 06/13/17 00:07 Dose: 5,000 units Insulin Detemir (Levemir) 10 units SC HS [facility] Last Admin: 06/12/17 22:42 Dose: 10 units Insulin Human Lispro (Humalog) 4 units SC [facility] Lidocaine (Lidoderm) 2 ea TD DAILY [facility] Last Admin: 06/12/17 09:06 Dose: 2 ea Lisinopril (Zestril) 10 mg PO DAILY@0900 [facility] Senna/Docusate Sodium (Senokot S 50 Mg-8.6 Mg) 2 tab PO [facility] Last Admin: 06/12/17 22:41 Dose: 2 tab Sertraline HCl (Zoloft) 25 mg PO [facility] Last Admin: 06/12/17 22:40 Dose: 25 mg - Labs Labs: 06/13/17 06:00 06/13/17 06:00 PT 12.7 Seconds (9.8-13.1) 06/08/17 05:00 INR 1.2 (0.9-1.2) 06/08/17 05:00 APTT 26.5 Seconds (25.6-37.1) D 06/08/17 05:00 - Constitutional Appears: Well, No Acute Distress - Head Exam Head Exam: ATRAUMATIC, NORMOCEPHALIC - Eye Exam Eye Exam: EOMI, Normal appearance, PERRL - Neck Exam Neck Exam: Full ROM. absent: Lymphadenopathy, Thyromegaly - Respiratory Exam Respiratory Exam: Rales (Bilateral at lung bases.), NORMAL BREATHING PATTERN. absent: Accessory Muscle Use, Rhonchi, Wheezes - Cardiovascular Exam Cardiovascular Exam: RRR, +S1, +S2. absent: Murmur - GI/Abdominal Exam GI & Abdominal Exam: Soft, Normal Bowel Sounds. absent: Tenderness, Organomegaly - Extremities Exam Extremities Exam: Joint Swelling (L toe mild swelling due to surgery.). absent : Calf Tenderness Additional comments: L foot dressing looks clean. - Back Exam Back Exam: NORMAL INSPECTION. absent: CVA tenderness (L), CVA tenderness (R) - Neurological Exam Neurological Exam: Alert, CN II-XII Intact, Oriented x3 - Psychiatric Exam Psychiatric exam: Depressed. absent: Suicidal Ideation - Skin Skin Exam: Dry, Pallor, Warm Assessment and Plan - Assessment and Plan (Free Text) Assessment: 66 y.o. female with hx of Peripheral vascular disease admitted for osteomyelitis POD 5 Partial resection of 1st metatarsal L foot. #Osteomyelitis, Acute -Partial resection of 1st metatarsal L foot completed in OR by Podiatry (06/08) . -Cleared for podiatry and F/U in 1 week. -Keflex 500mg PO Q6 for 7 days day 2 -PT evaluation: JHONNY recommended. -Encouraged OOB #Acute Decompensated Systolic Heart Failure- EF 20% -Last Echo (06/10) EF <15-20% -Reduce afterload and heart rate, Coreg 9.375mg PO -Isosorbid Mononitrate 60mg discontinued by Nephro in conjunction with cardiology. -lisinopril 10 mg daily -continue lasix 20 mg PO bid -Monitor I/O's. -Dr Russo recommends life vest, speaking with social media director regarding. Pending. #Acute Kidney Injury-Improving/stable -Crea 1.2 today -Nephrology recommendations appreciated Dr Schultz aware about dispo. -24 hrs urine collection #Constipation-Improving -[place] 2 tab PO qHS # Anemia, Acute s/p PRBC and I.V. Venofer improving -Hg today 9.1 -FOBT x 3 negative during admission # Peripheral Vascular Disease- s/p Left lower leg revascularization -Revascularization completed at [place] -Monitor pedal pulses daily # Diabetes Mellitus Type 2-Unstable/noted to be low fasting asymptomatic -Decrease Levemir 8 units daily. -D/C Lispro 4 units. -started Metformin 500mg BID today -f/u BMP #Hypertension -c/w current management -Coreg 9.375mg Q12 # Hyperlipidemia -Continue home meds: atorvastatin # Depression -No improvement observed yet, interfering with patient's rehab progress -Sertraline 25 mg PO daily. # Hypokalemia-New -K today 2.9 -Potassium Cl 40meq PO once. -Recheck K blood level today # DVT prophylaxis -Heparin 5000 units SQ.
[2017-06-13] MEDS ORDERED: Potassium Chloride 20 mEq ER Tab PO ONE ×2 (08:59→21:18)
[2017-06-13] MEDS: Lidocaine 5% Patch TD SCH (09:43)
[2017-06-13] MEDS ORDERED: Insulin Detemir 100 Units/ml Inj SC SCH (11:14)
[2017-06-13 12:30] LABS: CALCIUM 8.8 mg/dL (8.4-10.2); POTASSIUM 3.3 MMOL/L (3.6-5.0)
--- NOTE | 2017-06-13 12:57 | CP.PCM.PN ---
Subjective - Date & Time of Evaluation Date of Evaluation: 06/13/17 Time of Evaluation: 01:00 - Subjective Subjective: 66 year odl female seen 5 days s/p resection of distal left 1st metatarsal and debridement of ulcers. Pt reports continue mild, well controlled post-operative pain. Likely exacerbated as pt has been ambulating without prescribed post- operative shoe. She denies and acute overnight events. She denies recent f/c/cp/ sob/n/v. Objective - Vital Signs/Intake and Output Vital Signs (last 24 hours): Temp Pulse Resp BP Pulse Ox 98 F 62 18 109/62 98 06/13/17 07:29 06/13/17 09:44 06/13/17 07:29 06/13/17 09:44 06/13/17 07:29 Intake and Output: 06/13/17 06/13/17 06:59 18:59 Intake Total 180 Balance 180 - Medications Medications: Current Medications Acetaminophen (Tylenol 325mg Tab) 650 mg PO Q6 PRN PRN Reason: Pain, moderate (4-7) Last Admin: 06/13/17 02:58 Dose: 650 mg Acetaminophen (Tylenol 325mg Tab) 650 mg PO Q4 PRN PRN Reason: Pain, Mild (1-3) Aspirin (Aspirin Chewable) 81 mg PO DAILY [facility] Last Admin: 06/13/17 09:39 Dose: 81 mg Atorvastatin Calcium (Lipitor) 40 mg PO HS [facility] Last Admin: 06/12/17 21:17 Dose: 40 mg Carvedilol (Coreg) 9.375 mg PO Q12 [facility] Last Admin: 06/13/17 09:40 Dose: 9.375 mg Cephalexin Monohydrate (Keflex) 500 mg PO Q6 [facility] Last Admin: 06/13/17 09:42 Dose: 500 mg Clopidogrel Bisulfate (Plavix) 75 mg PO DAILY [facility] Last Admin: 06/13/17 09:44 Dose: 75 mg Dextrose (Dextrose 50% Inj) 0 ml IV STAT PRN; Protocol PRN Reason: Hyglycemia Protocol Dextrose (Glutose 15) 0 gm PO ONCE PRN; Protocol PRN Reason: Hypoglycemia Protocol Furosemide (Lasix) 20 mg PO BID [facility] Last Admin: 06/13/17 09:42 Dose: 20 mg Glucagon (Glucagen Diagnostic Kit) 0 mg IM STAT PRN; Protocol PRN Reason: Hypoglycemia Protocol Heparin Sodium (Porcine) (Heparin) 5,000 units SC Q8 [facility] PRN Reason: Protocol Last Admin: 06/13/17 09:41 Dose: 5,000 units Insulin Detemir (Levemir) 8 units SC HS [facility] Lidocaine (Lidoderm) 2 ea TD DAILY [facility] Last Admin: 06/13/17 09:43 Dose: 2 ea Lisinopril (Zestril) 10 mg PO DAILY@0900 [facility] Last Admin: 06/13/17 09:44 Dose: 10 mg Metformin HCl (Glucophage) 500 mg PO BIDWM [facility] Senna/Docusate Sodium (Senokot S 50 Mg-8.6 Mg) 2 tab PO HS [facility] Last Admin: 06/12/17 22:41 Dose: 2 tab Sertraline HCl (Zoloft) 25 mg PO [facility] Last Admin: 06/12/17 22:40 Dose: 25 mg - Labs Labs: 06/13/17 06:00 06/13/17 11:30 PT 12.7 Seconds (9.8-13.1) 06/08/17 05:00 INR 1.2 (0.9-1.2) 06/08/17 05:00 APTT 26.5 Seconds (25.6-37.1) D 06/08/17 05:00 - Constitutional Appears: Well, Non-toxic, No Acute Distress - Extremities Exam Additional comments: LLE focused examination: Dressing was clean and intact with sangious strikethrough noted Vasc: DP/PT pulses palpable. CFT < 4 seconds x10, temperature gradient WNL. Diffuse edema noted to patient's left foot consistent with surgical procedure yesterday. Neuro: Epicritic and protective sensation grossly intact Derm: Surgical site noted to be well coapted with no signs of dehiscence, no periwound erythema, malodor, drainage or other clinical signs of infection. Ulcer site to left digit is nonerythematous with no drainage, malodor or other clinical signs of infection at this time MSK: Pain with palpation of the entire left LE, Pain with palpation near surgical site consistent with procedure performed - Neurological Exam Neurological Exam: Alert, Awake, Oriented x3 Assessment and Plan - Assessment and Plan (Free Text) Assessment: 66 year old female 5 days s/p left foot partial exostectomy first metatarsal, partial exostectomy proximal phalanx base, excision tibial sesamoid secondary to OM Plan: Patient seen and evaluated at bedside. Discussed with attending Dr. Reynoso, who endorses the following plan. Charts, labs and vitals reviewed; absent leukocytosis. Afebrile Day 2/7 of oral Keflex per ID recommendation. Continue antibiotics Intra-op clean margins reviewed, clean margins noted to be free of acute OM. -Dressing of xeroform gauze & DSD applied to surgical site. Pt to be full weightbearing with use of post-op shoe to left foot. Patient stable from podiatry standpoint Upon DC home patient will follow up with Dr. Reynoso in wound care center
--- NOTE | 2017-06-13 18:20 | CP.PCM.PN ---
Subjective - Date & Time of Evaluation Date of Evaluation: 06/13/17 Time of Evaluation: 12:30 - Subjective Subjective: Patient reports sob overnight; Objective - Vital Signs/Intake and Output Vital Signs (last 24 hours): Temp Pulse Resp BP Pulse Ox 98.5 F 65 20 134/77 96 06/13/17 16:20 06/13/17 16:20 06/13/17 16:20 06/13/17 17:35 06/13/17 16:20 Intake and Output: 06/13/17 06/13/17 06:59 18:59 Intake Total 180 Balance 180 - Medications Medications: Current Medications Acetaminophen (Tylenol 325mg Tab) 650 mg PO Q6 PRN PRN Reason: Pain, moderate (4-7) Last Admin: 06/13/17 02:58 Dose: 650 mg Acetaminophen (Tylenol 325mg Tab) 650 mg PO Q4 PRN PRN Reason: Pain, Mild (1-3) Aspirin (Aspirin Chewable) 81 mg PO DAILY [facility] Last Admin: 06/13/17 09:39 Dose: 81 mg Atorvastatin Calcium (Lipitor) 40 mg PO HS [facility] Last Admin: 06/12/17 21:17 Dose: 40 mg Carvedilol (Coreg) 9.375 mg PO Q12 [facility] Last Admin: 06/13/17 09:40 Dose: 9.375 mg Cephalexin Monohydrate (Keflex) 500 mg PO Q6 [facility] Last Admin: 06/13/17 17:35 Dose: 500 mg Clopidogrel Bisulfate (Plavix) 75 mg PO DAILY [facility] Last Admin: 06/13/17 09:44 Dose: 75 mg Dextrose (Dextrose 50% Inj) 0 ml IV STAT PRN; Protocol PRN Reason: Hyglycemia Protocol Dextrose (Glutose 15) 0 gm PO ONCE PRN; Protocol PRN Reason: Hypoglycemia Protocol Furosemide (Lasix) 20 mg PO BID [facility] Last Admin: 06/13/17 17:35 Dose: 20 mg Glucagon (Glucagen Diagnostic Kit) 0 mg IM STAT PRN; Protocol PRN Reason: Hypoglycemia Protocol Heparin Sodium (Porcine) (Heparin) 5,000 units SC Q8 [facility] PRN Reason: Protocol Last Admin: 06/13/17 17:34 Dose: 5,000 units Insulin Detemir (Levemir) 8 units SC HS [facility] Lidocaine (Lidoderm) 2 ea TD DAILY [facility] Last Admin: 06/13/17 09:43 Dose: 2 ea Lisinopril (Zestril) 10 mg PO DAILY@0900 [facility] Last Admin: 06/13/17 09:44 Dose: 10 mg Metformin HCl (Glucophage) 500 mg PO BIDWM [facility] Last Admin: 06/13/17 17:34 Dose: 500 mg Senna/Docusate Sodium (Senokot S 50 Mg-8.6 Mg) 2 tab PO HS [facility] Last Admin: 06/12/17 22:41 Dose: 2 tab Sertraline HCl (Zoloft) 25 mg PO HS [facility] Last Admin: 06/12/17 22:40 Dose: 25 mg Spironolactone (Aldactone) 12.5 mg PO DAILY [facility] Last Admin: 06/13/17 17:34 Dose: 12.5 mg - Labs Labs: 06/13/17 06:00 06/13/17 11:30 PT 12.7 Seconds (9.8-13.1) 06/08/17 05:00 INR 1.2 (0.9-1.2) 06/08/17 05:00 APTT 26.5 Seconds (25.6-37.1) D 06/08/17 05:00 - Constitutional Appears: Non-toxic, No Acute Distress - Head Exam Head Exam: NORMAL INSPECTION - Eye Exam Eye Exam: Normal appearance. absent: Scleral icterus - ENT Exam ENT Exam: Mucous Membranes Moist - Respiratory Exam Respiratory Exam: absent: Rhonchi, Wheezes Additional comments: bilateral insp rales; - Cardiovascular Exam Cardiovascular Exam: JVD, RRR, +S1, +S2 - GI/Abdominal Exam GI & Abdominal Exam: Soft. absent: Distended, Tenderness - Extremities Exam Additional comments: moderate b/l lower leg edema, increased; - Neurological Exam Neurological Exam: Alert, Awake - Psychiatric Exam Psychiatric exam: Anxious - Skin Skin Exam: Normal Color, Warm. absent: Cyanosis Assessment and Plan (1) Acute renal failure Assessment & Plan: Resolving, serum creatinine improved; goal is to optimize cardiac function; titrating upward SHABBIR inhibitor upward; Status: Acute (2) Cardiomyopathy, dilated Assessment & Plan: Increased volume excess on exam and by symptoms; on lasix 20 mg PO bid; hypokalemic today but likely due to loose stools; starting aldactone 12.5 mg daily, increasing SHABBIR inhibitor as above; Status: Acute (3) Osteomyelitis Assessment & Plan: Switched to cephalexin yesterday 500 mg q6h; renal function fluctuating and on increasing doses of lisinopril; may need to dose adjust accordingly; Status: Acute (4) PVD (peripheral vascular disease) Status: Acute (5) HTN (hypertension) Assessment & Plan: On multiple CHF meds; BP controlled; continue as above; Status: Chronic (6) CKD (chronic kidney disease) Assessment & Plan: Appears cardiorenal/renovascular; awaiting urine microalbumin; Status: Chronic (7) Anemia Status: Acute
[2017-06-13] MEDS: Docusate-Senna 50 mg-8.6 mg Tab PO SCH (21:08)
--- NOTE | 2017-06-14 06:47 | CP.PCM.PN ---
Subjective - Date & Time of Evaluation Date of Evaluation: 06/14/17 Time of Evaluation: 06:45 - Subjective Subjective: 66 year odl female seen 7 days s/p resection of distal left 1st metatarsal and debridement of ulcers. Pt reports continued mild, well controlled post- operative pain. Patient states that she has only been ambulating between her bed , bathroom and chair and has been using her surgical shoe when moving. She denies and acute overnight events. She denies recent f/c/cp/sob/n/v. Objective - Vital Signs/Intake and Output Vital Signs (last 24 hours): Temp Pulse Resp BP Pulse Ox 98.8 F 61 19 121/69 99 06/14/17 00:05 06/14/17 00:05 06/14/17 00:05 06/14/17 00:05 06/14/17 00:05 Intake and Output: 06/13/17 06/14/17 18:59 06:59 Output Total 500 Balance -500 - Medications Medications: Current Medications Acetaminophen (Tylenol 325mg Tab) 650 mg PO Q6 PRN PRN Reason: Pain, moderate (4-7) Last Admin: 06/13/17 21:28 Dose: 650 mg Acetaminophen (Tylenol 325mg Tab) 650 mg PO Q4 PRN PRN Reason: Pain, Mild (1-3) Aspirin (Aspirin Chewable) 81 mg PO DAILY [facility] Last Admin: 06/13/17 09:39 Dose: 81 mg Atorvastatin Calcium (Lipitor) 40 mg PO HS [facility] Last Admin: 06/13/17 21:02 Dose: 40 mg Carvedilol (Coreg) 9.375 mg PO Q12 [facility] Last Admin: 06/13/17 21:04 Dose: 9.375 mg Cephalexin Monohydrate (Keflex) 500 mg PO Q12 [facility] Clopidogrel Bisulfate (Plavix) 75 mg PO DAILY [facility] Last Admin: 06/13/17 09:44 Dose: 75 mg Dextrose (Dextrose 50% Inj) 0 ml IV STAT PRN; Protocol PRN Reason: Hyglycemia Protocol Dextrose (Glutose 15) 0 gm PO ONCE PRN; Protocol PRN Reason: Hypoglycemia Protocol Furosemide (Lasix) 20 mg PO BID [facility] Last Admin: 06/13/17 17:35 Dose: 20 mg Glucagon (Glucagen Diagnostic Kit) 0 mg IM STAT PRN; Protocol PRN Reason: Hypoglycemia Protocol Heparin Sodium (Porcine) (Heparin) 5,000 units SC Q8 [facility] PRN Reason: Protocol Last Admin: 06/14/17 01:29 Dose: 5,000 units Insulin Detemir (Levemir) 8 units SC [facility] Last Admin: 06/13/17 21:19 Dose: 8 units Lidocaine (Lidoderm) 2 ea TD DAILY [facility] Last Admin: 06/13/17 09:43 Dose: 2 ea Lisinopril (Zestril) 10 mg PO DAILY@0900 [facility] Last Admin: 06/13/17 09:44 Dose: 10 mg Metformin HCl (Glucophage) 500 mg PO BIDWM [facility] Last Admin: 06/13/17 17:34 Dose: 500 mg Senna/Docusate Sodium (Senokot S 50 Mg-8.6 Mg) 2 tab PO [facility] Last Admin: 06/13/17 21:08 Dose: Not Given Sertraline HCl (Zoloft) 25 mg PO [facility] Last Admin: 06/13/17 21:06 Dose: 25 mg Spironolactone (Aldactone) 12.5 mg PO DAILY [facility] Last Admin: 06/13/17 17:34 Dose: 12.5 mg - Labs Labs: 06/13/17 06:00 06/13/17 11:30 PT 12.7 Seconds (9.8-13.1) 06/08/17 05:00 INR 1.2 (0.9-1.2) 06/08/17 05:00 APTT 26.5 Seconds (25.6-37.1) D 06/08/17 05:00 - Constitutional Appears: Well, Non-toxic, No Acute Distress - Extremities Exam Additional comments: LLE focused examination: Dressing was clean and intact without sangious strikethrough noted Vasc: DP/PT pulses palpable. CFT < 4 seconds x10, temperature gradient WNL. Decreased edema noted to patient's left foot consistent with surgical procedure Neuro: Epicritic and protective sensation grossly intact Derm: Surgical site noted to be well coapted with no signs of dehiscence, no periwound erythema, malodor, drainage or other clinical signs of infection. Ulcer site to left digit is nonerythematous with no drainage, malodor or other clinical signs of infection at this time MSK: Pain with palpation of the entire left LE, Pain with palpation near surgical site consistent with procedure performed - Neurological Exam Neurological Exam: Alert, Awake, Oriented x3 - Psychiatric Exam Psychiatric exam: Normal Affect, Normal Mood Assessment and Plan - Assessment and Plan (Free Text) Assessment: 66 year old female 5 days s/p left foot partial exostectomy first metatarsal, partial exostectomy proximal phalanx base, excision tibial sesamoid secondary to OM Plan: Patient seen and evaluated at bedside. Discussed with attending Dr. Reynoso, who endorses the following plan. Charts, labs and vitals reviewed; absent leukocytosis. Afebrile Day 3/7 of oral Keflex per ID recommendation. Continue antibiotics Per ID patient will be discharged either today or tomorrow once life vest is attained Intra-op clean margins reviewed, clean margins noted to be free of acute OM. -Dressing of xeroform gauze & DSD applied to surgical site. Pt to be full weightbearing with use of post-op shoe to left foot. Patient stable from podiatry standpoint Podiatry will continue to follow while in house Upon DC home patient will follow up with Dr. Reynoso in wound care center
[2017-06-14 07:54] LABS: BLOOD UREA NITROGEN 11 mg/dl (7-17); CALCIUM 8.8 mg/dL (8.4-10.2); CARBON DIOXIDE 20 mmol/L (22-30); CHLORIDE 106 mmol/L (98-107); GFR AFRICAN-AMERICAN > 60; GLUCOSE,RANDOM 102 mg/dL (65-105); SODIUM 136 mmol/l (132-148)
[2017-06-14 07:58] LABS: POTASSIUM 4.4 MMOL/L (3.6-5.0)
[2017-06-14] MEDS: Lidocaine 5% Patch TD SCH (08:54)
[2017-06-14 09:24] LABS: HEMATOCRIT 30.4 % (34.0-47.0); MEAN CELL VOLUME 87.7 fl (81.0-99.0); MEAN CORPUSCULAR HEMOGLOBIN 28.5 pg (27.0-31.0); MEAN CORPUSCULAR HGB CONC 32.5 g/dL (33.0-37.0); RED CELL DISTRIBUTION WIDTH 18.3 % (11.5-14.5); WHITE BLOOD COUNT 8.1 K/uL (4.8-10.8)
--- NOTE | 2017-06-14 09:28 | CP.PCM.PN ---
Subjective - Date & Time of Evaluation Date of Evaluation: 06/14/17 Time of Evaluation: 06:50 - Subjective Subjective: Patient seen and examined at bedside. No acute events overnight. No distress reported. States mild pain in her L lower extremity due to surgery. Reports good appetite, sleeping well. States an abdominal "pressure" over epigastric area when she is lying on bed, better when sitting up. Reports normal bowel movement. Denies fever, nausea, abdominal pain, vomiting, no urinary symptoms. Reports feeling more animated this morning. No suicidal ideation. Patient has been sitting up on chair during the day. Objective - Vital Signs/Intake and Output Vital Signs (last 24 hours): Temp Pulse Resp BP Pulse Ox 98.3 F 76 18 128/51 L 99 06/14/17 07:30 06/14/17 08:56 06/14/17 07:30 06/14/17 08:56 06/14/17 07:30 - Medications Medications: Current Medications Acetaminophen (Tylenol 325mg Tab) 650 mg PO Q6 PRN PRN Reason: Pain, moderate (4-7) Last Admin: 06/13/17 21:28 Dose: 650 mg Acetaminophen (Tylenol 325mg Tab) 650 mg PO Q4 PRN PRN Reason: Pain, Mild (1-3) Aspirin (Aspirin Chewable) 81 mg PO DAILY [facility] Last Admin: 06/14/17 08:48 Dose: 81 mg Atorvastatin Calcium (Lipitor) 40 mg PO HS [facility] Last Admin: 06/13/17 21:02 Dose: 40 mg Carvedilol (Coreg) 9.375 mg PO Q12 [facility] Last Admin: 06/14/17 08:48 Dose: 9.375 mg Cephalexin Monohydrate (Keflex) 500 mg PO Q12 [facility] Last Admin: 06/14/17 08:53 Dose: 500 mg Clopidogrel Bisulfate (Plavix) 75 mg PO DAILY [facility] Last Admin: 06/14/17 08:56 Dose: 75 mg Dextrose (Dextrose 50% Inj) 0 ml IV STAT PRN; Protocol PRN Reason: Hyglycemia Protocol Dextrose (Glutose 15) 0 gm PO ONCE PRN; Protocol PRN Reason: Hypoglycemia Protocol Furosemide (Lasix) 20 mg PO BID [facility] Last Admin: 06/14/17 08:53 Dose: 20 mg Glucagon (Glucagen Diagnostic Kit) 0 mg IM STAT PRN; Protocol PRN Reason: Hypoglycemia Protocol Heparin Sodium (Porcine) (Heparin) 5,000 units SC Q8 [facility] PRN Reason: Protocol Last Admin: 06/14/17 08:51 Dose: 5,000 units Insulin Detemir (Levemir) 8 units SC [facility] Last Admin: 06/13/17 21:19 Dose: 8 units Lidocaine (Lidoderm) 2 ea TD DAILY [facility] Last Admin: 06/14/17 08:54 Dose: 2 ea Lisinopril (Zestril) 10 mg PO DAILY@0900 [facility] Last Admin: 06/14/17 08:56 Dose: 10 mg Metformin HCl (Glucophage) 500 mg PO BIDWM [facility] Last Admin: 06/14/17 08:50 Dose: 500 mg Senna/Docusate Sodium (Senokot S 50 Mg-8.6 Mg) 2 tab PO [facility] Last Admin: 06/13/17 21:08 Dose: Not Given Sertraline HCl (Zoloft) 25 mg PO [facility] Last Admin: 06/13/17 21:06 Dose: 25 mg Spironolactone (Aldactone) 12.5 mg PO DAILY [facility] Last Admin: 06/14/17 08:47 Dose: 12.5 mg - Labs Labs: 06/13/17 06:00 06/14/17 06:55 PT 12.7 Seconds (9.8-13.1) 06/08/17 05:00 INR 1.2 (0.9-1.2) 06/08/17 05:00 APTT 26.5 Seconds (25.6-37.1) D 06/08/17 05:00 - Constitutional Appears: Well, No Acute Distress - Head Exam Head Exam: ATRAUMATIC, NORMOCEPHALIC - Eye Exam Eye Exam: EOMI, Normal appearance, PERRL. absent: Nystagmus, Scleral icterus - Neck Exam Neck Exam: Full ROM. absent: Lymphadenopathy, Thyromegaly - Respiratory Exam Respiratory Exam: Rales (Bilateral), NORMAL BREATHING PATTERN. absent: Accessory Muscle Use, Rhonchi, Wheezes - Cardiovascular Exam Cardiovascular Exam: REGULAR RHYTHM, +S1, +S2. absent: Murmur - GI/Abdominal Exam GI & Abdominal Exam: Soft, Hyperactive Bowel Sounds. absent: Tenderness, Organomegaly - Extremities Exam Additional comments: L foot bandaged, dressing looks clean, mild swelling of toes, mild pain to palpation. Toes ROM conserved. PT/DP 2+ b/l. - Back Exam Back Exam: NORMAL INSPECTION. absent: paraspinal tenderness, vertebral tenderness - Neurological Exam Neurological Exam: Alert, CN II-XII Intact, Oriented x3, Reflexes Normal - Psychiatric Exam Psychiatric exam: Normal Affect. absent: Suicidal Ideation - Skin Skin Exam: Dry, Normal Color, Warm Assessment and Plan - Assessment and Plan (Free Text) Assessment: 66 y.o. female with hx of Peripheral vascular disease admitted for osteomyelitis POD 6 Partial resection of 1st metatarsal L foot. #Osteomyelitis, Acute -Partial resection of 1st metatarsal L foot completed in OR by Podiatry (06/08) . -Cleared for podiatry and F/U in 1 week. -started Keflex 500mg PO Q12 for 7 days day 3 -PT evaluation: JHONNY recommended. -Encouraged OOB #Acute Decompensated Systolic Heart Failure- EF 20% -Last Echo (06/10) EF <15-20% -Reduce afterload and heart rate, Coreg 9.375mg PO -Isosorbid Mononitrate 60mg discontinued by Nephro in conjunction with cardiology. -lisinopril 10 mg daily -continue lasix 20 mg PO bid -Started Aldactone 12.5mg daily ordered Dr Schultz -Monitor I/O's. -Dr Russo recommends consult for AICD, Dr Mcdaniel consult appreciated #Acute Kidney Injury-Improving/stable -Crea 1.0 today -Nephrology recommendations Dr Schultz aware about dispo -24 hrs urine collection #Constipation-Improving -Sennakot 2 tab PO qHS # Anemia, Acute s/p PRBC and I.V. Venofer improving -Hg today 9.9 -FOBT x 3 negative during admission # Peripheral Vascular Disease- s/p Left lower leg revascularization -Revascularization completed at [facility] -Monitor pedal pulses daily # Diabetes Mellitus Type 2-Unstable/noted to be low fasting -Asymptomatic -Decrease Levemir 6 units daily. -Metformin 500mg BID -Glucose 54L today -BMP wnl -F/U fasting glucose #Hypertension -c/w current management -Coreg 9.375mg Q12 # Hyperlipidemia -Continue home meds: atorvastatin # Depression -Patient more animated today -Sertraline 25 mg PO daily. # Hypokalemia-New -K today 4.5 -F/U K level # DVT prophylaxis -Heparin 5000 units SQ.
--- NOTE | 2017-06-14 19:33 | CP.PCM.PN ---
Subjective - Date & Time of Evaluation Date of Evaluation: 06/14/17 Time of Evaluation: 19:00 - Subjective Subjective: Patient reports breathing better; urinating well; Objective - Vital Signs/Intake and Output Vital Signs (last 24 hours): Temp Pulse Resp BP Pulse Ox 98.3 F 73 20 158/85 H 96 06/14/17 16:15 06/14/17 16:15 06/14/17 16:15 06/14/17 17:00 06/14/17 16:15 - Medications Medications: Current Medications Acetaminophen (Tylenol 325mg Tab) 650 mg PO Q6 PRN PRN Reason: Pain, moderate (4-7) Last Admin: 06/13/17 21:28 Dose: 650 mg Acetaminophen (Tylenol 325mg Tab) 650 mg PO Q4 PRN PRN Reason: Pain, Mild (1-3) Aspirin (Aspirin Chewable) 81 mg PO DAILY [facility] Last Admin: 06/14/17 08:48 Dose: 81 mg Atorvastatin Calcium (Lipitor) 40 mg PO HS [facility] Last Admin: 06/13/17 21:02 Dose: 40 mg Carvedilol (Coreg) 9.375 mg PO Q12 [facility] Last Admin: 06/14/17 08:48 Dose: 9.375 mg Cephalexin Monohydrate (Keflex) 500 mg PO Q12 [facility] Last Admin: 06/14/17 08:53 Dose: 500 mg Clopidogrel Bisulfate (Plavix) 75 mg PO DAILY [facility] Last Admin: 06/14/17 08:56 Dose: 75 mg Dextrose (Dextrose 50% Inj) 0 ml IV STAT PRN; Protocol PRN Reason: Hyglycemia Protocol Dextrose (Glutose 15) 0 gm PO ONCE PRN; Protocol PRN Reason: Hypoglycemia Protocol Furosemide (Lasix) 20 mg PO BID [facility] Last Admin: 06/14/17 17:00 Dose: 20 mg Glucagon (Glucagen Diagnostic Kit) 0 mg IM STAT PRN; Protocol PRN Reason: Hypoglycemia Protocol Heparin Sodium (Porcine) (Heparin) 5,000 units SC Q8 [facility] PRN Reason: Protocol Last Admin: 06/14/17 16:58 Dose: 5,000 units Insulin Detemir (Levemir) 6 units SC HS [facility] Lidocaine (Lidoderm) 2 ea TD DAILY [facility] Last Admin: 06/14/17 08:54 Dose: 2 ea Lisinopril (Zestril) 20 mg PO DAILY@0900 [facility] Last Admin: 06/14/17 16:57 Dose: 500 mg Senna/Docusate Sodium (Senokot S 50 Mg-8.6 Mg) 2 tab PO [facility] Last Admin: 06/13/17 21:08 Dose: Not Given Sertraline HCl (Zoloft) 25 mg PO [facility] Last Admin: 06/13/17 21:06 Dose: 25 mg Spironolactone (Aldactone) 12.5 mg PO BID [facility] - Labs Labs: 06/14/17 09:21 06/14/17 09:25 PT 12.7 Seconds (9.8-13.1) 06/08/17 05:00 INR 1.2 (0.9-1.2) 06/08/17 05:00 APTT 26.5 Seconds (25.6-37.1) D 06/08/17 05:00 - Constitutional Appears: Non-toxic, No Acute Distress - Head Exam Head Exam: NORMAL INSPECTION - Eye Exam Eye Exam: Normal appearance. absent: Scleral icterus - ENT Exam ENT Exam: Mucous Membranes Moist - Respiratory Exam Respiratory Exam: absent: Rhonchi, Wheezes, Respiratory Distress Additional comments: bilateral insp rales; - Cardiovascular Exam Cardiovascular Exam: REGULAR RHYTHM, JVD, +S1, +S2 - GI/Abdominal Exam GI & Abdominal Exam: Soft. absent: Distended, Tenderness - Exam Exam: absent: Bladder Distension - Extremities Exam Additional comments: Mild b/l lower leg edema (improved); - Neurological Exam Neurological Exam: Alert, Awake - Skin Skin Exam: Normal Color, Warm. absent: Cyanosis Assessment and Plan (1) Acute renal failure Assessment & Plan: Resolved; goal is to optimize cardiac function with increasing dose of SHABBIR inhibitor, lisinopril increased to 20 mg today; Status: Acute (2) Cardiomyopathy, dilated Assessment & Plan: Acute systolic CHF exacerbation; volume excess somewhat improved with decreased leg edema today; aldactone 12.5 mg daily started yesterday, increasing to bid; continue lasix 20 mg PO bid; titrating upward lisinopril dose; Status: Acute (3) Osteomyelitis Assessment & Plan: On cephalexin 500 mg q8h, no renal dose adjustment needed; Status: Acute (4) PVD (peripheral vascular disease) Status: Acute (5) HTN (hypertension) Assessment & Plan: BP increased after stopping hydralazine/imdur and switching to lisinopril; increasing lisinopril dose as above; Status: Chronic (6) CKD (chronic kidney disease) Assessment & Plan: Mainly non-proteinuric disease due to renovascular disease/cardiorenal etiology ; continue to optimize cardiac function; Status: Chronic (7) Anemia Assessment & Plan: Improving; monitor; Status: Acute
[2017-06-14] MEDS: Docusate-Senna 50 mg-8.6 mg Tab PO SCH ×2 (21:47→21:53)
[2017-06-14] MEDS: Insulin Detemir 100 Units/ml Inj SC SCH (21:48)
[2017-06-15 02:14] LABS: MICROALBUMIN 24.8 mg/dL
[2017-06-15 07:24] LABS: HEMATOCRIT 28.5 % (34.0-47.0); MEAN CELL VOLUME 84.4 fl (81.0-99.0); MEAN CORPUSCULAR HEMOGLOBIN 28.6 pg (27.0-31.0); MEAN CORPUSCULAR HGB CONC 33.9 g/dL (33.0-37.0); RED CELL DISTRIBUTION WIDTH 18.2 % (11.5-14.5); WHITE BLOOD COUNT 7.5 K/uL (4.8-10.8)
[2017-06-15 07:36] LABS: BLOOD UREA NITROGEN 9 mg/dl (7-17); CARBON DIOXIDE 24 mmol/L (22-30); CHLORIDE 105 mmol/L (98-107); GFR AFRICAN-AMERICAN > 60; GLUCOSE,RANDOM 106 mg/dL (65-105); POTASSIUM 3.9 MMOL/L (3.6-5.0); SODIUM 139 mmol/l (132-148)
--- NOTE | 2017-06-15 08:43 | CP.PCM.PN ---
Subjective - Date & Time of Evaluation Date of Evaluation: 06/15/17 Time of Evaluation: 08:40 - Subjective Subjective: 66 year old female seen 7 days s/p partial resection of distal left 1st metatarsal, partial resection of base of proximal phalanx, excision of left tibial sesamoid and debridement of ulcers. Pt reports minimal, improved pain to surgical site at this time. Patient states that she has only been ambulating between her bed, bathroom and chair and has been using her surgical shoe when moving. She denies and acute overnight events. She denies recent f/c/cp/sob/n/ v. Objective - Vital Signs/Intake and Output Vital Signs (last 24 hours): Temp Pulse Resp BP Pulse Ox 98.5 F 70 20 150/78 95 06/15/17 08:19 06/15/17 08:19 06/15/17 08:19 06/15/17 08:19 06/15/17 08:19 Intake and Output: 06/15/17 06/15/17 06:59 18:59 Intake Total 150 Balance 150 - Medications Medications: Current Medications Acetaminophen (Tylenol 325mg Tab) 650 mg PO Q6 PRN PRN Reason: Pain, moderate (4-7) Last Admin: 06/13/17 21:28 Dose: 650 mg Acetaminophen (Tylenol 325mg Tab) 650 mg PO Q4 PRN PRN Reason: Pain, Mild (1-3) Aspirin (Aspirin Chewable) 81 mg PO DAILY [facility] Last Admin: 06/14/17 08:48 Dose: 81 mg Atorvastatin Calcium (Lipitor) 40 mg PO HS [facility] Last Admin: 06/14/17 21:46 Dose: 40 mg Carvedilol (Coreg) 9.375 mg PO Q12 [facility] Last Admin: 06/14/17 21:12 Dose: 9.375 mg Cephalexin Monohydrate (Keflex) 500 mg PO Q12 [facility] Last Admin: 06/14/17 21:13 Dose: 500 mg Clopidogrel Bisulfate (Plavix) 75 mg PO DAILY [facility] Last Admin: 06/14/17 08:56 Dose: 75 mg Dextrose (Dextrose 50% Inj) 0 ml IV STAT PRN; Protocol PRN Reason: Hyglycemia Protocol Dextrose (Glutose 15) 0 gm PO ONCE PRN; Protocol PRN Reason: Hypoglycemia Protocol Furosemide (Lasix) 20 mg PO BID [facility] Last Admin: 06/14/17 17:00 Dose: 20 mg Glucagon (Glucagen Diagnostic Kit) 0 mg IM STAT PRN; Protocol PRN Reason: Hypoglycemia Protocol Heparin Sodium (Porcine) (Heparin) 5,000 units SC Q8 [facility] PRN Reason: Protocol Last Admin: 06/15/17 01:00 Dose: 5,000 units Insulin Detemir (Levemir) 6 units SC HS [facility] Last Admin: 06/14/17 21:48 Dose: 6 u Lidocaine (Lidoderm) 2 ea TD DAILY [facility] Last Admin: 06/14/17 08:54 Dose: 2 ea Lisinopril (Zestril) 20 mg PO DAILY@0900 [facility] Metformin HCl (Glucophage) 500 mg PO BIDWM [facility] Last Admin: 06/14/17 16:57 Dose: 500 mg Senna/Docusate Sodium (Senokot S 50 Mg-8.6 Mg) 2 tab PO HS [facility] Last Admin: 06/14/17 21:53 Dose: Not Given Sertraline HCl (Zoloft) 25 mg PO [facility] Last Admin: 06/14/17 21:47 Dose: 25 mg Spironolactone (Aldactone) 12.5 mg PO BID [facility] Last Admin: 06/14/17 20:33 Dose: 12.5 mg - Labs Labs: 06/15/17 07:00 06/15/17 07:00 PT 12.7 Seconds (9.8-13.1) 06/08/17 05:00 INR 1.2 (0.9-1.2) 06/08/17 05:00 APTT 26.5 Seconds (25.6-37.1) D 06/08/17 05:00 - Constitutional Appears: Well, Non-toxic, No Acute Distress - Extremities Exam Additional comments: LLE focused examination: Dressing was clean. dry and intact Vasc: DP/PT pulses palpable. CFT < 4 seconds x10, temperature gradient WNL. Decreased edema noted to patient's left foot consistent with surgical procedure Neuro: Epicritic and protective sensation grossly intact Derm: Surgical site noted to be well coapted with no signs of dehiscence, no periwound erythema, malodor, drainage or other clinical signs of infection. Ulcer site to left digit is nonerythematous with no drainage, malodor or other clinical signs of infection at this time. Necrotic eschar noted overlying ulceration site at left first metatarsal head level MSK: No pain with palpation near surgical site - Neurological Exam Neurological Exam: Alert, Awake, Oriented x3 - Psychiatric Exam Psychiatric exam: Normal Affect, Normal Mood Assessment and Plan - Assessment and Plan (Free Text) Assessment: 66 year old female 7 days s/p left foot partial exostectomy first metatarsal, partial exostectomy proximal phalanx base, excision tibial sesamoid secondary to OM Plan: Patient seen and evaluated at bedside. Discussed with attending Dr. Reynoso, who endorses the following plan. Charts, labs and vitals reviewed; absent leukocytosis. Afebrile Day 5/7 of oral Keflex per ID recommendation. Continue antibiotics Per ID patient will be ready for discharge home once AICD attained Dressing of xeroform gauze & DSD applied to surgical site. Pt to be full weightbearing with use of post-op shoe to left foot. Patient stable from podiatry standpoint Podiatry will continue to follow while in house Upon DC home patient will follow up with Dr. Reynoso in wound care center
[2017-06-15] MEDS: Lidocaine 5% Patch TD SCH (08:44)
--- NOTE | 2017-06-15 08:57 | CP.PCM.PN ---
Subjective - Date & Time of Evaluation Date of Evaluation: 06/15/17 Time of Evaluation: 06:35 - Subjective Subjective: Patient seen and examined this morning at bedside, no overnight events, reports feeling well, slept well, good appetite. States less foot pain. Normal BM yesterday, no urinary symptoms. Denies fever, vomiting, abdominal pain. Patient has been sitting up on chair during the day and walking few steps from bed to chair. Objective - Vital Signs/Intake and Output Vital Signs (last 24 hours): Temp Pulse Resp BP Pulse Ox 98.5 F 70 20 150/78 95 06/15/17 08:19 06/15/17 08:19 06/15/17 08:19 06/15/17 08:43 06/15/17 08:19 Intake and Output: 06/15/17 06/15/17 06:59 18:59 Intake Total 150 Balance 150 - Medications Medications: Current Medications Acetaminophen (Tylenol 325mg Tab) 650 mg PO Q6 PRN PRN Reason: Pain, moderate (4-7) Last Admin: 06/13/17 21:28 Dose: 650 mg Acetaminophen (Tylenol 325mg Tab) 650 mg PO Q4 PRN PRN Reason: Pain, Mild (1-3) Aspirin (Aspirin Chewable) 81 mg PO DAILY [facility] Last Admin: 06/15/17 08:42 Dose: 81 mg Atorvastatin Calcium (Lipitor) 40 mg PO HS [facility] Last Admin: 06/14/17 21:46 Dose: 40 mg Carvedilol (Coreg) 9.375 mg PO Q12 [facility] Last Admin: 06/15/17 08:42 Dose: 9.375 mg Cephalexin Monohydrate (Keflex) 500 mg PO Q12 [facility] Last Admin: 06/15/17 08:42 Dose: 500 mg Clopidogrel Bisulfate (Plavix) 75 mg PO DAILY [facility] Last Admin: 06/15/17 08:43 Dose: 75 mg Dextrose (Dextrose 50% Inj) 0 ml IV STAT PRN; Protocol PRN Reason: Hyglycemia Protocol Dextrose (Glutose 15) 0 gm PO ONCE PRN; Protocol PRN Reason: Hypoglycemia Protocol Furosemide (Lasix) 20 mg PO BID [facility] Last Admin: 06/15/17 08:43 Dose: 20 mg Glucagon (Glucagen Diagnostic Kit) 0 mg IM STAT PRN; Protocol PRN Reason: Hypoglycemia Protocol Heparin Sodium (Porcine) (Heparin) 5,000 units SC Q8 [facility] PRN Reason: Protocol Last Admin: 06/15/17 08:44 Dose: 5,000 units Insulin Detemir (Levemir) 6 units SC [facility] Last Admin: 06/14/17 21:48 Dose: 6 u Lidocaine (Lidoderm) 2 ea TD DAILY [facility] Last Admin: 06/15/17 08:44 Dose: 2 ea Lisinopril (Zestril) 20 mg PO DAILY@0900 [facility] Last Admin: 06/15/17 08:43 Dose: 20 mg Metformin HCl (Glucophage) 500 mg PO BIDWM [facility] Last Admin: 06/15/17 08:44 Dose: 500 mg Senna/Docusate Sodium (Senokot S 50 Mg-8.6 Mg) 2 tab PO [facility] Last Admin: 06/14/17 21:53 Dose: Not Given Sertraline HCl (Zoloft) 25 mg PO [facility] Last Admin: 06/14/17 21:47 Dose: 25 mg Spironolactone (Aldactone) 12.5 mg PO BID [facility] Last Admin: 06/15/17 08:42 Dose: 12.5 mg - Labs Labs: 06/15/17 07:00 06/15/17 07:00 PT 12.7 Seconds (9.8-13.1) 06/08/17 05:00 INR 1.2 (0.9-1.2) 06/08/17 05:00 APTT 26.5 Seconds (25.6-37.1) D 06/08/17 05:00 - Constitutional Appears: Well, Non-toxic, No Acute Distress - Head Exam Head Exam: ATRAUMATIC, NORMOCEPHALIC - Eye Exam Eye Exam: EOMI, Normal appearance, PERRL. absent: Nystagmus - Neck Exam Neck Exam: Full ROM. absent: Lymphadenopathy - Respiratory Exam Respiratory Exam: Clear to Ausculation Bilateral, NORMAL BREATHING PATTERN - Cardiovascular Exam Cardiovascular Exam: REGULAR RHYTHM, +S1, +S2. absent: Murmur - GI/Abdominal Exam GI & Abdominal Exam: Soft, Normal Bowel Sounds. absent: Tenderness, Organomegaly - Back Exam Back Exam: NORMAL INSPECTION. absent: vertebral tenderness - Neurological Exam Neurological Exam: Alert, Awake, CN II-XII Intact, Oriented x3 - Psychiatric Exam Psychiatric exam: Normal Mood - Skin Skin Exam: Dry, Normal Color, Warm Assessment and Plan - Assessment and Plan (Free Text) Assessment: 66 y.o. female with hx of Peripheral vascular disease admitted for osteomyelitis POD 7 Partial resection of 1st metatarsal L foot. #Osteomyelitis, Acute -Partial resection of 1st metatarsal L foot completed in OR by Podiatry (06/08) . -Cleared for podiatry and F/U in 1 week. -Keflex 500mg PO Q12 for 7 days day 4 -PT evaluation: JHONNY recommended. -Encouraged OOB #Acute Decompensated Systolic Heart Failure- EF 20% -Last Echo (06/10) EF <15-20% -Reduce afterload and heart rate, Coreg 9.375mg PO -Isosorbid Mononitrate 60mg discontinued by Nephro in conjunction with cardiology. -increased lisinopril [address] Schultz -continue lasix 20 mg PO bid -Increased Aldactone 12.5mg TID ordered Dr Schultz -Monitor I/O's. -Dr Russo recommends evaluation for AICD, Dr Mcdaniel consult appreciated, eval pending. #Acute Kidney Injury-Improving/stable -Crea 1.0 today -Nephrology recommendations Dr Schultz aware about dispo -24 hrs urine collection #Constipation-Improving -Stop Sennakot 2 tab PO # Anemia, Acute s/p PRBC and I.V. Venofer improving -Hg today 9.7 -FOBT x 3 negative during admission # Peripheral Vascular Disease- s/p Left lower leg revascularization -Revascularization completed at [place]. -Monitor pedal pulses daily # Diabetes Mellitus Type 2-Improving -Asymptomatic -Decrease Levemir 6 units daily -Metformin 500mg BID -Glucose 106L today -F/U fasting glucose -Started Glipizide 2.5mg daily. -Restarted insulin regular 30 mins before meals. #Hypertension -c/w current management -Coreg 9.375mg Q12 # Hyperlipidemia -Continue home meds: atorvastatin # Depression-Improving -Patient more animated today -increased Sertraline 50 mg PO daily. # [id number] -Asymptomatic -K today 3.9 -F/U K level # DVT prophylaxis -Heparin 5000 units SQ.
--- NOTE | 2017-06-15 09:57 | CP.PCM.CON ---
History of Present Illness - History of Present Illness History of Present Illness: Consultation for evaluation of AICD for cardiomyopathy HPI: 66-year-old female who was admitted on May 20 with the diagnosis of osteomyelitis. Patient has past history of hypertension diabetes hyperlipidemia myocardial infarction 1-1/2 years ago CVA 3 months ago chronic back pain due to fall 2 years ago with lower left lower extremity ulcer who presented for evaluation of chronic wound on the left foot. Patient apparently had seen her outpatient pit recorder who felt the wound was infected and she was sent over for an outpatient MRI for evaluation of osteomyelitis. She was on antibiotics and mild pain and discomfort to the affected area. She was subsequently admitted and initiated on treatment for her osteomyelitis. She was seen initially by cardiology for evaluation of her preoperative risk stratification at which time she underwent an echocardiogram and a nuclear stress test. Echocardiogram was was consistent with inferior wall infarction and an EF of 25% nuclear stress test showed inferior wall infarct with dawna- infarct ischemia. Echocardiogram done shows an ejection fraction of 20% with severely dilated left ventricle right ventricle moderate mitral regurgitation and moderate tricuspid regurgitation. I was asked to evaluate patient for AICD placement. At baseline she is at NYHA functional class II dyspnea. She has not undergone a cardiac catheterization for evaluation of her coronaries. Etiology of her cardiomyopathy is most likely secondary to ischemic heart disease. Prior to AICD placement she would need further evaluation for underlying coronary artery disease as there is suggestion of inferior wall infarct. She is currently on beta-blockers and SHABBIR inhibitors along with Aldactone. She has also peripheral vascular disease for which she has been kept on dual antiplatelet therapy. Review of Systems - Review of Systems All systems: reviewed and no additional remarkable complaints except - Constitutional Constitutional: As Per HPI, Fatigue - EENT Eyes: As Per HPI. absent: Blind Spots, Blurred Vision, Change in Vision, Decreased Night Vision, Diplopia, Discharge, Dry Eye, Exophthalmos, Floaters, Irritation, Itchy Eyes, Loss of Peripheral Vision, Pain, Photophobia, Requires Corrective Lenses, Sees Flashes, Spots in Vision, Tunnel Vision, Other Visual Disturbances, Loss of Vision, Other Ears: As Per HPI. absent: Decreased Hearing, Ear Discharge, Ear Pain, Tinnitus , Abnormal Hearing, Disequilibrium, Dizziness, Other Nose/Mouth/Throat: As Per HPI. absent: Epistaxis, Nasal Congestion, Nasal Discharge, Nasal Obstruction, Nasal Trauma, Nose Pain, Post Nasal Drip, Sinus Pain, Sinus Pressure, Bleeding Gums, Change in Voice, Dental Pain, Dry Mouth, Dysphagia, Halitosis, Hoarsness, Lip Swelling, Mouth Lesions, Mouth Pain, Odynophagia, Sore Throat, Throat Swelling, Tongue Swelling, Facial Pain, Neck Pain, Neck Mass, Other - Breasts Breasts: As Per HPI - Cardiovascular Cardiovascular: As Per HPI, Dyspnea, Dyspnea on Exertion, Lightheadedness, Orthopnea. absent: Acrocyanosis, Chest Pain, Chest Pain at Rest, Chest Pain with Activity, Claudication, Diaphoresis, Edema, Irregular Heart Rhythm, Pain Radiating to Arm/Neck/Jaw, Leg Edema, Leg Ulcers, Palpitations, Paroxysmal Nocturnal Dyspnea, Pedal Edema, Radiating Pain, Rapid Heart Rate, Slow Heart Rate, Syncope, Other - Respiratory Respiratory: As Per HPI, Dyspnea. absent: Cough, Hemoptysis, Dyspnea on Exertion, Wheezing, Snoring, Stridor, Pain on Inspiration, Chest Congestion, Excessive Mucous Production, Change in Mucous Color, Pain with Coughing, Other - Gastrointestinal Gastrointestinal: As Per HPI. absent: Abdominal Pain, Belching, Bloating, Change in Bowel Habits, Change in Stool Character, Coffee Ground Emesis, Constipation, Cramping, Diarrhea, Dyspepsia, Dysphagia, Early Satiety, Excessive Flatus, Fecal Incontinence, Heartburn, Hematemesis, Hematochezia, Loose Stools, Melena, Nausea, Odynophagia, Temesmus, Vomiting, Other - Genitourinary Genitourinary: As Per HPI - Reproductive: Female Reproductive:Female: As Per HPI - Menstruation Menstruation: As Per HPI - Musculoskeletal Musculoskeletal: As Per HPI, Limited Range of Motion. absent: Abnormal Gait, Arthralgias, Atrophy, Back Pain, Deformity, Joint Swelling, Loss of Height, Muscle Cramps, Muscle Weakness, Myalgias, Neck Pain, Numbness, Radiating Pain into Limb, Stiffness, Tingling, Other - Integumentary Integumentary: As Per HPI - Neurological Neurological: As Per HPI - Psychiatric Psychiatric: As Per HPI - Endocrine Endocrine: As Per HPI. absent: Change in Body Appearance, Change in Libido, Cold Intolorance, Deepening of Voice, Excessive Sweating, Fatigue, Flushing, Heat Intolorance, Increase in Ring/Shoe/Hat Size, Palpitations, Polydipsia, Polyphagia, Polyuria, Other - Hematologic/Lymphatic Hematologic: As Per HPI. absent: Easy Bleeding, Easy Bruising, Lymphadenopathy , Other Past Patient History - Infectious Disease Hx of Infectious Diseases: None - Tetanus Immunizations Tetanus Immunization: Unknown - Past Medical History & Family History Past Medical History?: Yes Pertinent Family History: +ve for HTN and DM - Past Social History Smoking Status: Former Smoker Chewing Tobacco Use: No Cigar Use: No Alcohol: None Drugs: Denies Home Situation {Lives}: With Family Domestic Violence: Negative - CARDIAC Hx Heart Attack: Yes - PULMONARY Hx Respiratory Disorders: No - NEUROLOGICAL Hx Neurological Disorder: Yes HX Cerebrovascular Accident: Yes (left sided weakness) - HEENT Hx HEENT Problems: No - RENAL Hx Chronic Kidney Disease: No - ENDOCRINE/METABOLIC Hx Endocrine Disorders: Yes Hx Diabetes Mellitus Type 2: Yes - HEMATOLOGICAL/ONCOLOGICAL Hx Blood Disorders: No - INTEGUMENTARY Hx Dermatological Problems: No - MUSCULOSKELETAL/RHEUMATOLOGICAL Hx Musculoskeletal Disorders: Yes Hx Falls: Yes (fell 6 months ago) Other/Comment: hx of chronic back pain - GASTROINTESTINAL Hx Gastrointestinal Disorders: No - GENITOURINARY/GYNECOLOGICAL Hx Genitourinary Disorders: No - PSYCHIATRIC Hx Psychophysiologic Disorder: No Hx Substance Use: No - SURGICAL HISTORY Hx Surgeries: Yes Hx Section: Yes - ANESTHESIA Hx Anesthesia: Yes Hx Anesthesia Reactions: No Meds Allergies/Adverse Reactions: Allergies Allergy/AdvReac Type Severity Reaction Status Date / Time No Known Allergies Allergy Verified 05/14/16 14:21 - Medications Medications: Current Medications Acetaminophen (Tylenol 325mg Tab) 650 mg PO Q6 PRN PRN Reason: Pain, moderate (4-7) Last Admin: 06/13/17 21:28 Dose: 650 mg Acetaminophen (Tylenol 325mg Tab) 650 mg PO Q4 PRN PRN Reason: Pain, Mild (1-3) Aspirin (Aspirin Chewable) 81 mg PO DAILY [facility] Last Admin: 06/15/17 08:42 Dose: 81 mg Atorvastatin Calcium (Lipitor) 40 mg PO HS [facility] Last Admin: 06/14/17 21:46 Dose: 40 mg Carvedilol (Coreg) 9.375 mg PO Q12 [facility] Last Admin: 06/15/17 08:42 Dose: 9.375 mg Cephalexin Monohydrate (Keflex) 500 mg PO Q12 [facility] Last Admin: 06/15/17 08:42 Dose: 500 mg Clopidogrel Bisulfate (Plavix) 75 mg PO DAILY [facility] Last Admin: 06/15/17 08:43 Dose: 75 mg Dextrose (Dextrose 50% Inj) 0 ml IV STAT PRN; Protocol PRN Reason: Hyglycemia Protocol Dextrose (Glutose 15) 0 gm PO ONCE PRN; Protocol PRN Reason: Hypoglycemia Protocol Furosemide (Lasix) 20 mg PO BID [facility] Last Admin: 06/15/17 08:43 Dose: 20 mg Glucagon (Glucagen Diagnostic Kit) 0 mg IM STAT PRN; Protocol PRN Reason: Hypoglycemia Protocol Heparin Sodium (Porcine) (Heparin) 5,000 units SC Q8 [facility] PRN Reason: Protocol Last Admin: 06/15/17 08:44 Dose: 5,000 units Insulin Detemir (Levemir) 6 units SC [facility] Last Admin: 06/14/17 21:48 Dose: 6 u Lidocaine (Lidoderm) 2 ea TD DAILY [facility] Last Admin: 06/15/17 08:44 Dose: 2 ea Lisinopril (Zestril) 20 mg PO DAILY@0900 [facility] Last Admin: 06/15/17 08:43 Dose: 20 mg Metformin [facility] (Glucophage) [facility] [place] Last Admin: 06/15/17 08:44 Dose: 500 mg Saccharomyces Boulardii (Florastor) 250 mg PO BID [facility] Senna/Docusate Sodium (Senokot S 50 Mg-8.6 Mg) 2 tab PO [facility] Last Admin: 06/14/17 21:53 Dose: Not Given Sertraline HCl (Zoloft) 25 mg PO [facility] Last Admin: 06/14/17 21:47 Dose: 25 mg Spironolactone (Aldactone) 12.5 mg PO BID [facility] Last Admin: 06/15/17 08:42 Dose: 12.5 mg Physical Exam - Constitutional Appears: Well - Head Exam Head Exam: ATRAUMATIC, NORMAL INSPECTION, NORMOCEPHALIC - Eye Exam Eye Exam: EOMI, Normal appearance, PERRL Pupil Exam: NORMAL ACCOMODATION, PERRL - ENT Exam ENT Exam: Mucous Membranes Moist, Normal Exam - Neck Exam Neck exam: Positive for: Normal Inspection - Respiratory Exam Respiratory Exam: Clear to Auscultation Bilateral, NORMAL BREATHING PATTERN - Cardiovascular Exam Cardiovascular Exam: REGULAR RHYTHM, RRR, Systolic Murmur - GI/Abdominal Exam GI & Abdominal Exam: Normal Bowel Sounds, Soft. absent: Tenderness - Extremities Exam Extremities exam: Positive for: normal inspection - Back Exam Back exam: NORMAL INSPECTION - Neurological Exam Neurological exam: Alert, CN II-XII Intact, Oriented x3, Reflexes Normal - Psychiatric Exam Psychiatric exam: Normal Affect, Normal Mood - Skin Skin Exam: Dry, Intact, Normal Color, Warm Results - Vital Signs Recent Vital Signs: Last Vital Signs Temp 98.5 F 06/15/17 08:19 Pulse 70 06/15/17 08:19 Resp 20 06/15/17 08:19 BP 150/78 06/15/17 08:43 Pulse Ox 95 06/15/17 08:19 - Labs Result Diagrams: 06/15/17 07:00 06/15/17 07:00 Labs: Laboratory Results - last 24 hr 06/11/17 06/12/17 06/12/17 19:00 06:30 06:30 WBC RBC Hgb Hct MCV MCH MCHC RDW Plt Count Sodium Potassium Chloride Carbon Dioxide Anion Gap BUN Creatinine Est GFR ( Amer) Est GFR (Non-Af Amer) POC Glucose (mg/dL) Random Glucose Calcium Urine Creatinine 62 Urine Microalbumin 24.8 Microalb/Creat Ratio 403 H MAGI Screen Negative MAGI Titer TEST NOT PERFORMED MAGI Titer 2 TEST NOT PERFORMED MAGI Pattern TEST NOT PERFORMED MAGI Pattern 2 TEST NOT PERFORMED Hepatitis A IgM Ab Negative Hep Bs Antigen Negative Hep B Core IgM Ab Negative Hepatitis C Antibody Negative HIV-1 Antibody TEST NOT PERFORMED HIV-2 Antibody TEST NOT PERFORMED HIV 1&2 Ag/Ab, 4th Gen Nonreactive 06/14/17 06/14/17 06/14/17 07:06 10:52 15:39 WBC RBC Hgb Hct MCV MCH MCHC RDW Plt Count Sodium Potassium Chloride Carbon Dioxide Anion Gap BUN Creatinine Est GFR ( Amer) Est GFR (Non-Af Amer) POC Glucose (mg/dL) 110 213 H 184 H Random Glucose Calcium Urine Creatinine Urine Microalbumin Microalb/Creat Ratio MAGI Screen MAGI Titer MAGI Titer 2 MAGI Pattern MAGI Pattern 2 Hepatitis A IgM Ab Hep Bs Antigen Hep B Core IgM Ab Hepatitis C Antibody HIV-1 Antibody HIV-2 Antibody HIV 1&2 Ag/Ab, 4th Gen 06/14/17 06/15/17 06/15/17 21:13 05:36 07:00 WBC 7.5 RBC 3.38 L Hgb 9.7 L Hct 28.5 L MCV 84.4 D MCH 28.6 MCHC 33.9 RDW 18.2 H Plt Count 201 Sodium Potassium Chloride Carbon Dioxide Anion Gap BUN Creatinine Est GFR ( Amer) Est GFR (Non-Af Amer) POC Glucose (mg/dL) 244 H 121 H Random Glucose Calcium Urine Creatinine Urine Microalbumin Microalb/Creat Ratio MAGI Screen MAGI Titer MAGI Titer 2 MAGI Pattern MAGI Pattern 2 Hepatitis A IgM Ab Hep Bs Antigen Hep B Core IgM Ab Hepatitis C Antibody HIV-1 Antibody HIV-2 Antibody HIV 1&2 Ag/Ab, 4th Gen 06/15/17 07:00 WBC RBC Hgb Hct MCV MCH MCHC RDW Plt Count Sodium 139 Potassium 3.9 Chloride 105 Carbon Dioxide 24 Anion Gap 14 BUN 9 Creatinine 1.0 Est GFR ( Amer) > 60 Est GFR (Non-Af Amer) 56 POC Glucose (mg/dL) Random Glucose 106 H Calcium 9.0 Urine Creatinine Urine Microalbumin Microalb/Creat Ratio MAGI Screen MAGI Titer MAGI Titer 2 MAGI Pattern MAGI Pattern 2 Hepatitis A IgM Ab Hep Bs Antigen Hep B Core IgM Ab Hepatitis C Antibody HIV-1 Antibody HIV-2 Antibody HIV 1&2 Ag/Ab, 4th Gen Assessment & Plan (1) CAD (coronary artery disease) Assessment and Plan: Nuclear stress test shows inferior wall scar with dawna-infarct ischemia no anginal sx but she has limited activity 2' to CVA and PVD on DAPT , BB and statins Status: Acute (2) Cardiomyopathy, dilated Assessment and Plan: Etiology most likely ischemic in nature will need cardiac cath prior to placement of an AICD also per guidelines needs to be on RAAS modulators and BB x 6 months prior to AICD placement Status: Acute (3) PVD (peripheral vascular disease) Assessment and Plan: s/p stenting per resident cont with DAPT Status: Acute (4) Systolic and diastolic CHF, acute on chronic Assessment and Plan: compensated euovolemic on BB, ACei and aldactone Status: Acute (5) Volume overload Assessment and Plan: compensated euvolemic Status: Acute (6) CKD (chronic kidney disease) Assessment and Plan: Cr stable Status: Chronic (7) Dyslipidemia Assessment and Plan: On statins Status: Chronic
[2017-06-15] MEDS: Saccharomyces Boulardi 250 mg Cap PO SCH ×2 (11:23→17:59)
[2017-06-15] MEDS: Insulin Regular 100 units/ml SC SCH ×3 (11:52→21:47)
--- NOTE | 2017-06-15 16:19 | CP.PCM.PN ---
Subjective - Date & Time of Evaluation Date of Evaluation: 06/15/17 Time of Evaluation: 16:30 - Subjective Subjective: Patient reports some shortness of breath; otherwise is urinating well; Objective - Vital Signs/Intake and Output Vital Signs (last 24 hours): Temp Pulse Resp BP Pulse Ox 97.6 F 73 17 126/77 99 06/15/17 15:49 06/15/17 15:49 06/15/17 15:49 06/15/17 15:49 06/15/17 15:49 Intake and Output: 06/15/17 06/15/17 06:59 18:59 Intake Total 150 Balance 150 - Medications Medications: Current Medications Acetaminophen (Tylenol 325mg Tab) 650 mg PO Q6 PRN PRN Reason: Pain, moderate (4-7) Last Admin: 06/13/17 21:28 Dose: 650 mg Acetaminophen (Tylenol 325mg Tab) 650 mg PO Q4 PRN PRN Reason: Pain, Mild (1-3) Aspirin (Aspirin Chewable) 81 mg PO DAILY [facility] Last Admin: 06/15/17 08:42 Dose: 81 mg Atorvastatin Calcium (Lipitor) 40 mg PO HS [facility] Last Admin: 06/14/17 21:46 Dose: 40 mg Carvedilol (Coreg) 9.375 mg PO Q12 [facility] Last Admin: 06/15/17 08:42 Dose: 9.375 mg Cephalexin Monohydrate (Keflex) 500 mg PO Q12 [facility] Stop: 06/16/17 07:00 Last Admin: 06/15/17 08:42 Dose: 500 mg Clopidogrel Bisulfate (Plavix) 75 mg PO DAILY [facility] Last Admin: 06/15/17 08:43 Dose: 75 mg Dextrose (Dextrose 50% Inj) 0 ml IV STAT PRN; Protocol PRN Reason: Hyglycemia Protocol Dextrose (Glutose 15) 0 gm PO ONCE PRN; Protocol PRN Reason: Hypoglycemia Protocol Furosemide (Lasix) 20 mg PO BID [facility] Last Admin: 06/15/17 08:43 Dose: 20 mg Glipizide (Glucotrol) 2.5 mg PO ACB [facility] Last Admin: 06/15/17 12:36 Dose: 2.5 mg Glucagon (Glucagen Diagnostic Kit) 0 mg IM STAT PRN; Protocol PRN Reason: Hypoglycemia Protocol Heparin Sodium (Porcine) (Heparin) 5,000 units SC Q8 [facility] PRN Reason: Protocol Last Admin: 06/15/17 08:44 Dose: 5,000 units Insulin Detemir (Levemir) 6 units SC HS [facility] Last Admin: 06/14/17 21:48 Dose: 6 u Insulin Human Regular (Humulin R) 0 units SC ACHS [facility] PRN Reason: Protocol Last Admin: 06/15/17 11:52 Dose: 1 unit Lidocaine (Lidoderm) 2 ea TD DAILY [facility] Last Admin: 06/15/17 08:44 Dose: 2 ea Lisinopril (Zestril) 40 mg PO DAILY@0900 [facility] Metformin HCl (Glucophage) 500 mg PO BIDWM [facility] Last Admin: 06/15/17 08:44 Dose: 500 mg Saccharomyces Boulardii (Florastor) 250 mg PO BID [facility] Last Admin: 06/15/17 11:23 Dose: 250 mg Sertraline HCl (Zoloft) 50 mg PO [facility] Spironolactone (Aldactone) 12.5 mg PO BID [facility] Last Admin: 06/15/17 08:42 Dose: 12.5 mg - Labs Labs: 06/15/17 07:00 06/15/17 07:00 PT 12.7 Seconds (9.8-13.1) 06/08/17 05:00 INR 1.2 (0.9-1.2) 06/08/17 05:00 APTT 26.5 Seconds (25.6-37.1) D 06/08/17 05:00 - Constitutional Appears: Non-toxic, No Acute Distress - Head Exam Head Exam: NORMAL INSPECTION - Eye Exam Eye Exam: Normal appearance - ENT Exam ENT Exam: Mucous Membranes Moist - Respiratory Exam Respiratory Exam: absent: Rhonchi, Wheezes Additional comments: b/l insp rales; - Cardiovascular Exam Cardiovascular Exam: REGULAR RHYTHM, +S1, +S2 Additional comments: JVD improved; - GI/Abdominal Exam GI & Abdominal Exam: Soft. absent: Distended, Tenderness - Exam Exam: absent: Bladder Distension - Extremities Exam Additional comments: Mild lower leg edema L > R; - Skin Skin Exam: Warm. absent: Cyanosis Assessment and Plan (1) Acute renal failure Assessment & Plan: Resolved; continuing to optimize cardiac status with increasing dose of lisinopril, now at 40 mg daily; Status: Acute (2) Cardiomyopathy, dilated Assessment & Plan: Severe decompensated systolic CHF, improved; increased SHABBIR inhibitor dose as above; continue lasix 20 mg bid and aldactone 12.5 mg bid; f/u with cardio for titration of B-susan; Status: Acute (3) Osteomyelitis Assessment & Plan: On keflex, no need for renal dose adjustment; Status: Acute (4) PVD (peripheral vascular disease) Status: Acute (5) HTN (hypertension) Assessment & Plan: BP better controlled with increased lisinopril dose, continue; Status: Chronic (6) CKD (chronic kidney disease) Assessment & Plan: Mainly non-proteinuric disease due to renovascular/cardiorenal etiology; continue to optimize CV status with statin and CHF meds; Status: Chronic (7) Anemia Status: Acute
[2017-06-15] MEDS: Insulin Detemir 100 Units/ml Inj SC SCH (21:47)
[2017-06-16] MEDS: Insulin Regular 100 units/ml SC SCH ×4 (07:21→22:20)
[2017-06-16] MEDS: Saccharomyces Boulardi 250 mg Cap PO SCH ×2 (09:00→17:57)
[2017-06-16] MEDS: Lidocaine 5% Patch TD SCH (10:45)
[2017-06-16] MEDS: Santyl Collagenase OINTMENT TOP SCH (10:48)
--- NOTE | 2017-06-16 11:14 | CP.PCM.PN ---
Subjective - Date & Time of Evaluation Date of Evaluation: 06/16/17 Time of Evaluation: 11:10 - Subjective Subjective: Podiatry- Dr. Reynoso 66 year old female seen 8 days s/p partial resection of distal left 1st metatarsal, partial resection of base of proximal phalanx, excision of left tibial sesamoid and debridement of ulcers. Pt reports no pain to surgical site at this time. Patient states that she has only been ambulating between her bed, bathroom and chair and has been using her surgical shoe when moving. She denies and acute overnight events. She denies recent f/c/cp/sob/n/v. Objective - Vital Signs/Intake and Output Vital Signs (last 24 hours): Temp Pulse Resp BP Pulse Ox 98.1 F 72 20 152/83 H 97 06/16/17 08:44 06/16/17 10:49 06/16/17 08:44 06/16/17 10:49 06/16/17 08:44 - Medications Medications: Current Medications Acetaminophen (Tylenol 325mg Tab) 650 mg PO Q6 PRN PRN Reason: Pain, moderate (4-7) Last Admin: 06/13/17 21:28 Dose: 650 mg Acetaminophen (Tylenol 325mg Tab) 650 mg PO Q4 PRN PRN Reason: Pain, Mild (1-3) Aspirin (Aspirin Chewable) 81 mg PO DAILY [facility] Last Admin: 06/16/17 10:44 Dose: 81 mg Atorvastatin Calcium (Lipitor) 40 mg PO HS [facility] Last Admin: 06/15/17 21:42 Dose: 40 mg Carvedilol (Coreg) 9.375 mg PO Q12 [facility] Last Admin: 06/16/17 09:57 Dose: 9.375 mg Clopidogrel Bisulfate (Plavix) 75 mg PO DAILY [facility] Last Admin: 06/16/17 10:48 Dose: 75 mg Collagenase (Santyl) 1 applic TOP DAILY [facility] Last Admin: 06/16/17 10:48 Dose: 1 applic Dextrose (Dextrose 50% Inj) 0 ml IV STAT PRN; Protocol PRN Reason: Hyglycemia Protocol Dextrose (Glutose 15) 0 gm PO ONCE PRN; Protocol PRN Reason: Hypoglycemia Protocol Furosemide (Lasix) 20 mg PO BID [facility] Last Admin: 06/16/17 09:56 Dose: 20 mg Glucagon (Glucagen Diagnostic Kit) 0 mg IM STAT PRN; Protocol PRN Reason: Hypoglycemia Protocol Heparin Sodium (Porcine) (Heparin) 5,000 units SC Q8 [facility] PRN Reason: Protocol Last Admin: 06/16/17 10:44 Dose: 5,000 units Insulin Detemir (Levemir) 6 units SC HS [facility] Last Admin: 06/15/17 21:47 Dose: 6 u Insulin Human Regular (Humulin R) 0 units SC ACHS [facility] PRN Reason: Protocol Last Admin: 06/16/17 07:21 Dose: Not Given Lidocaine (Lidoderm) 2 ea TD DAILY [facility] Last Admin: 06/16/17 10:45 Dose: 2 ea Lisinopril (Zestril) 40 mg PO DAILY@0900 [facility] Last Admin: 06/16/17 10:49 Dose: 40 mg Saccharomyces Boulardii (Florastor) 250 mg PO BID [facility] Last Admin: 06/15/17 17:59 Dose: 250 mg Sertraline HCl (Zoloft) 50 mg PO HS [facility] Last Admin: 06/15/17 21:43 Dose: 50 mg Spironolactone (Aldactone) 12.5 mg PO BID [facility] Last Admin: 06/16/17 09:55 Dose: 12.5 mg Tramadol HCl (Ultram) 50 mg PO Q6 [facility] - Labs Labs: 06/15/17 07:00 06/15/17 07:00 PT 12.7 Seconds (9.8-13.1) 06/08/17 05:00 INR 1.2 (0.9-1.2) 06/08/17 05:00 APTT 26.5 Seconds (25.6-37.1) D 06/08/17 05:00 - Constitutional Appears: Well, Non-toxic, No Acute Distress - Extremities Exam Additional comments: LLE focused examination: Dressing was clean. dry and intact Vasc: DP/PT pulses palpable. CFT < 4 seconds x10, temperature gradient WNL. Decreased edema noted to patient's left foot consistent with surgical procedure Neuro: Epicritic and protective sensation grossly intact Derm: Surgical site noted to be well coapted with no signs of dehiscence and all sutures intact, no periwound erythema, malodor, drainage or other clinical signs of infection. Ulcer site to left digit is nonerythematous with no drainage , malodor or other clinical signs of infection at this time. Necrotic eschar noted overlying ulceration site at left first metatarsal head level MSK: No pain with palpation near surgical site - Neurological Exam Neurological Exam: Alert, Awake, Oriented x3 - Psychiatric Exam Psychiatric exam: Normal Affect, Normal Mood Assessment and Plan - Assessment and Plan (Free Text) Assessment: 66 year old female 8 days s/p left foot partial exostectomy first metatarsal, partial exostectomy proximal phalanx base, excision tibial sesamoid secondary to OM Plan: Patient seen and evaluated at bedside with attending Dr. Reynoso Charts, labs and vitals reviewed; absent leukocytosis. Afebrile 7 day course of antibiotics completed at this time Per ID AICD obtained and patient to be DC'd either today or tomorrow Dressing of xeroform gauze & DSD applied to surgical site. Santyl also applied to ulcer site at level of first MTPJ. Pt to be full weightbearing with use of post-op shoe to left foot. Patient stable from podiatry standpoint Podiatry will continue to follow while in house Upon DC patient will follow up with Dr. Reynoso in wound care center
[2017-06-16 11:48] LABS: HEMATOCRIT 31.4 % (34.0-47.0); MEAN CELL VOLUME 86.5 fl (81.0-99.0); MEAN CORPUSCULAR HEMOGLOBIN 28.2 pg (27.0-31.0); MEAN CORPUSCULAR HGB CONC 32.6 g/dL (33.0-37.0); RED CELL DISTRIBUTION WIDTH 17.8 % (11.5-14.5); WHITE BLOOD COUNT 8.9 K/uL (4.8-10.8)
[2017-06-16 12:02] LABS: ALKALINE PHOSPHATASE 120 U/L (38-126); ALT/SGPT 44 U/L (9-52); AST/SGOT 30 U/L (14-36); BILIRUBIN,TOTAL 0.6 mg/dl (0.2-1.3); BLOOD UREA NITROGEN 12 mg/dl (7-17); CALCIUM 9.1 mg/dL (8.4-10.2); CARBON DIOXIDE 22 mmol/L (22-30); CHLORIDE 104 mmol/L (98-107); GFR AFRICAN-AMERICAN > 60; GLUCOSE,RANDOM 150 mg/dL (65-105); POTASSIUM 3.6 MMOL/L (3.6-5.0); SODIUM 136 mmol/l (132-148); TOTAL PROTEIN 6.6 G/DL (6.3-8.2)
--- NOTE | 2017-06-16 12:23 | CP.PCM.PN ---
Subjective - Date & Time of Evaluation Date of Evaluation: 06/16/17 Time of Evaluation: 12:20 - Subjective Subjective: PT WITH BASELINE MINIMAL DYSPNEA GIVEN LOW EF. NO CRACKLES ON EXAM. INTERVENTIONAL CARDIOLOGY OPINION NOTED. CONSULT WAS FOR EP SUBSPECIALTY. PLEASE SEE PLAN FOR FURTHER RECOMMENDATIONS. Objective - Vital Signs/Intake and Output Vital Signs (last 24 hours): Temp Pulse Resp BP Pulse Ox 98.1 F 72 20 152/83 H 97 06/16/17 08:44 06/16/17 10:49 06/16/17 08:44 06/16/17 10:49 06/16/17 08:44 - Medications Medications: Current Medications Acetaminophen (Tylenol 325mg Tab) 650 mg PO Q6 PRN PRN Reason: Pain, moderate (4-7) Last Admin: 06/13/17 21:28 Dose: 650 mg Acetaminophen (Tylenol 325mg Tab) 650 mg PO Q4 PRN PRN Reason: Pain, Mild (1-3) Aspirin (Aspirin Chewable) 81 mg PO DAILY [facility] Last Admin: 06/16/17 10:44 Dose: 81 mg Atorvastatin Calcium (Lipitor) 40 mg PO HS [facility] Last Admin: 06/15/17 21:42 Dose: 40 mg Carvedilol (Coreg) 9.375 mg PO Q12 [facility] Last Admin: 06/16/17 09:57 Dose: 9.375 mg Clopidogrel Bisulfate (Plavix) 75 mg PO DAILY [facility] Last Admin: 06/16/17 10:48 Dose: 75 mg Collagenase (Santyl) 1 applic TOP DAILY [facility] Last Admin: 06/16/17 10:48 Dose: 1 applic Dextrose (Dextrose 50% Inj) 0 ml IV STAT PRN; Protocol PRN Reason: Hyglycemia Protocol Dextrose (Glutose 15) 0 gm PO ONCE PRN; Protocol PRN Reason: Hypoglycemia Protocol Furosemide (Lasix) 20 mg PO BID [facility] Last Admin: 06/16/17 09:56 Dose: 20 mg Glucagon (Glucagen Diagnostic Kit) 0 mg IM STAT PRN; Protocol PRN Reason: Hypoglycemia Protocol Heparin Sodium (Porcine) (Heparin) 5,000 units SC Q8 [facility] PRN Reason: Protocol Last Admin: 06/16/17 10:44 Dose: 5,000 units Insulin Detemir (Levemir) 6 units SC HS [facility] Last Admin: 06/15/17 21:47 Dose: 6 u Insulin Human Regular (Humulin R) 0 units SC ACHS [facility] PRN Reason: Protocol Last Admin: 06/16/17 07:21 Dose: Not Given Lidocaine (Lidoderm) 2 ea TD DAILY [facility] Last Admin: 06/16/17 10:45 Dose: 2 ea Lisinopril (Zestril) 40 mg PO DAILY@0900 [facility] Last Admin: 06/16/17 10:49 Dose: 40 mg Saccharomyces Boulardii (Florastor) 250 mg PO BID [facility] Last Admin: 06/15/17 17:59 Dose: 250 mg Sertraline HCl (Zoloft) 50 mg PO HS [facility] Last Admin: 06/15/17 21:43 Dose: 50 mg Spironolactone (Aldactone) 12.5 mg PO BID [facility] Last Admin: 06/16/17 09:55 Dose: 12.5 mg Tramadol HCl (Ultram) 50 mg PO Q6 PRN PRN Reason: Pain, moderate (4-7) Last Admin: 06/16/17 11:58 Dose: 50 mg - Labs Labs: 06/16/17 11:35 06/16/17 11:35 PT 12.7 Seconds (9.8-13.1) 06/08/17 05:00 INR 1.2 (0.9-1.2) 06/08/17 05:00 APTT 26.5 Seconds (25.6-37.1) D 06/08/17 05:00 Assessment and Plan (1) Cardiomyopathy, dilated Status: Acute (2) Systolic and diastolic CHF, acute on chronic Status: Acute (3) Volume overload Status: Acute (4) PVD (peripheral vascular disease) Status: Acute (5) SOB (shortness of breath) Status: Acute (6) Hx of myocardial infarction Status: Chronic (7) History of CVA (cerebrovascular accident) Status: Chronic (8) HTN (hypertension) Status: Chronic (9) Dyslipidemia Status: Chronic (10) History of tobacco abuse Status: Chronic (11) Osteomyelitis Status: Acute (12) Diabetic foot ulcer Status: Acute (13) Uncontrolled diabetes mellitus Status: Acute (14) Dizziness Status: Acute - Assessment and Plan (Free Text) Plan: I HAVE BEEN MANAGING PT FOR ABOUT 1 MONTH. PT HAS A DCM WITH LARGE INFERIOR WALL SCAR AND AKINESIS OF THE INFERIOR WALL. EF ON ST AND ECHO IS SEVERELY REDUCED. THERE IS NO EVIDENCE OF REVERSIBLE ISCHEMIA ON [place] STRESS TEST. GIVEN THE LACK OF ISCHEMIA, THERE WAS NO INDICATION FOR CARDIAC CATH. PT WAS CLEARED FOR PVI, AND THEREAFTER DEVELOPED SEVERE RENAL INSUFFICIENCY WITH CR INCREASING TO 4.0 FROM NORMAL BASELINE. PT DOES NOT HAVE CP. GIVEN LOW EF, LIFE VEST WAS RECOMMENDED. HOWEVER SINCE HER EF IS DUE TO SCAR AND PRIOR PR, OPTIMAL MEDICAL THERAPY IS UNLIKELY TO INCREASE HER EF TO ABOVE 35 %. ADDITIONALLY, THE PT IS NOT INSURED AND CANNOT AFFORD LIFE VEST. SUCH THE RISK OF DELAYING AICD IMPLANT FAR OUTWEIGHS THE BENEFIT. SUCH I ASKED RESIDENTS TO CONSULT EP FOR AICD IMPLANT PRIOR TO D/C. RECOMMENDATIONS REGARDING CARDIAC CATH AND REVASCULARIZATION NOTED. I STRONGLY BELIEVE THAT THERE IS NO INDICATION FOR CATH. THE PT MOST LIKELY HAS CAD, SHE HAS PVD AND MULTIPLE RISK FACTORS, WELL LARGE INFARCT ON ST ( PLEASE NOTE THE STRESS TEST WAS REPORTED SCAR W/O ISCHEMIA). THE REMAINING SEGMENTS DID NOT REVEAL ISCHEMIA, THEREFOR THERE IS NO INDICATION TO INTERVENE ON SIGNIFICANT LESIONS IN THE INFARCTED TERRITORY AND/OR IN THE NONISCHEMIC TERRITORY. FURTHERMORE, IF INTERVENTION WAS PERFORMED EF WOULD NOT IMPROVE, RE-PERFUSED SCAR WILL NOT IMPROVE CONTRACTILITY. ADDITIONALLY, THE PT IS HIGH RISK FOR RENAL FAILURE WITH CONTRAST EVIDENT BY HER RECENT REACTION TO PVI. FINALLY, IF PCI WAS PERFORMED PT WOULD STILL NEED LIFE VEST OR AICD PRIOR TO D/C TO HOME. OPTIMAL MEDICAL THERAPY WITH A LIFE VEST FOR 3 MONTHS OR AICD IMPLANT AT THIS JUNCTION ARE BOTH ACCEPTABLE OPTIONS. CARDIAC CATH IS NOT INDICATED AND THE RISKS OUTWEIGH ANY BENEFIT. MRS BACON IS A COMPLEX PT WITH SEVERE VASCULAR AND CARDIAC ISSUES. I BELIEVE THAT HER CASE SHOULD BE MANAGED BY 1 CARDIIOLOGIST, THEREFORE I WILL SIGN OFF CASE AND ALLOW DR CRAIG TO TAKE OVER THE MANAGEMENT AND TREATMENT.
--- NOTE | 2017-06-16 13:46 | CP.PCM.PN ---
<Wen Dallas - Last Filed: 06/16/17 16:55> Subjective - Date & Time of Evaluation Date of Evaluation: 06/16/17 Time of Evaluation: 07:00 - Subjective Subjective: Patient seen and examined this morning at bedside, no overnight events, reports feeling well, slept well, good appetite. States foot pain that is interfering with the PT. Normal BM yesterday. Denies fever, vomiting, abdominal pain, no sob , no chest pain, no urinary symptoms. Patient has been sitting up on chair during the day and walking few steps from bed to chair. She feel more motivated today to do the PT. Objective - Vital Signs/Intake and Output Vital Signs (last 24 hours): Temp Pulse Resp BP Pulse Ox 98.1 F 72 20 152/83 H 97 06/16/17 08:44 06/16/17 10:49 06/16/17 08:44 06/16/17 10:49 06/16/17 08:44 - Medications Medications: Current Medications Acetaminophen (Tylenol 325mg Tab) 650 mg PO Q6 PRN PRN Reason: Pain, moderate (4-7) Last Admin: 06/13/17 21:28 Dose: 650 mg Acetaminophen (Tylenol 325mg Tab) 650 mg PO Q4 PRN PRN Reason: Pain, Mild (1-3) Aspirin (Aspirin Chewable) 81 mg PO DAILY [facility] Last Admin: 06/16/17 10:44 Dose: 81 mg Atorvastatin Calcium (Lipitor) 40 mg PO HS [facility] Last Admin: 06/15/17 21:42 Dose: 40 mg Carvedilol (Coreg) 9.375 mg PO Q12 [facility] Last Admin: 06/16/17 09:57 Dose: 9.375 mg Clopidogrel Bisulfate (Plavix) 75 mg PO DAILY [facility] Last Admin: 06/16/17 10:48 Dose: 75 mg Collagenase (Santyl) 1 applic TOP DAILY [facility] Last Admin: 06/16/17 10:48 Dose: 1 applic Dextrose (Dextrose 50% Inj) 0 ml IV STAT PRN; Protocol PRN Reason: Hyglycemia Protocol Dextrose (Glutose 15) 0 gm PO ONCE PRN; Protocol PRN Reason: Hypoglycemia Protocol Furosemide (Lasix) 20 mg PO BID [facility] Last Admin: 06/16/17 09:56 Dose: 20 mg Glucagon (Glucagen Diagnostic Kit) 0 mg IM STAT PRN; Protocol PRN Reason: Hypoglycemia Protocol Heparin Sodium (Porcine) (Heparin) 5,000 units SC Q8 [facility] PRN Reason: Protocol Last Admin: 06/16/17 10:44 Dose: 5,000 units Insulin Detemir (Levemir) 6 units SC HS [facility] Last Admin: 06/15/17 21:47 Dose: 6 u Insulin Human Regular (Humulin R) 0 units SC ACHS [facility] PRN Reason: Protocol Last Admin: 06/16/17 07:21 Dose: Not Given Lidocaine (Lidoderm) 2 ea TD DAILY [facility] Last Admin: 06/16/17 10:45 Dose: 2 ea Lisinopril (Zestril) 40 mg PO DAILY@0900 [facility] Last Admin: 06/16/17 10:49 Dose: 40 mg Saccharomyces Boulardii (Florastor) 250 mg PO BID [facility] Last Admin: 06/15/17 17:59 Dose: 250 mg Sertraline HCl (Zoloft) 50 mg PO HS [facility] Last Admin: 06/15/17 21:43 Dose: 50 mg Spironolactone (Aldactone) 12.5 mg PO BID [facility] Last Admin: 06/16/17 09:55 Dose: 12.5 mg Tramadol HCl (Ultram) 50 mg PO Q6 PRN PRN Reason: Pain, moderate (4-7) Last Admin: 06/16/17 11:58 Dose: 50 mg - Labs Labs: 06/16/17 11:35 06/16/17 11:35 PT 12.7 Seconds (9.8-13.1) 06/08/17 05:00 INR 1.2 (0.9-1.2) 06/08/17 05:00 APTT 26.5 Seconds (25.6-37.1) D 06/08/17 05:00 - Constitutional Appears: Well, Non-toxic, No Acute Distress - Head Exam Head Exam: ATRAUMATIC - Eye Exam Eye Exam: EOMI, Normal appearance, PERRL. absent: Nystagmus - Neck Exam Neck Exam: Full ROM. absent: Lymphadenopathy, Thyromegaly - Respiratory Exam Respiratory Exam: Rales (presents bilateral on lung bases), NORMAL BREATHING PATTERN. absent: Respiratory Distress - Cardiovascular Exam Cardiovascular Exam: REGULAR RHYTHM, +S1, +S2. absent: Rubs, Murmur - GI/Abdominal Exam GI & Abdominal Exam: Soft, Normal Bowel Sounds. absent: Tenderness, Organomegaly - Extremities Exam Extremities Exam: absent: Calf Tenderness (mild swelling on left foot and toes, dressing is clean) - Back Exam Back Exam: NORMAL INSPECTION. absent: paraspinal tenderness, vertebral tenderness - Neurological Exam Neurological Exam: Alert, CN II-XII Intact, Oriented x3 - Psychiatric Exam Psychiatric exam: Normal Mood - Skin Skin Exam: Dry, Normal Color, Warm Assessment and Plan - Assessment and Plan (Free Text) Assessment: 66 y.o. female with hx of Peripheral vascular disease admitted for osteomyelitis POD 8 Partial resection of 1st metatarsal L foot. #Osteomyelitis, Acute -Partial resection of 1st metatarsal L foot completed in OR by Podiatry (06/08) . -Cleared for podiatry and F/U in 1 week. -Completed 7 days abx treatment, d/c Keflex 500mg PO today. -PT evaluation: JHONNY recommended. patient d/c is pending PT progression as she is not a safe d/c to home at this time. -Encouraged OOB #Acute Decompensated Systolic Heart Failure- EF 20% -Last Echo (06/10) EF <15-20% -c/w Coreg 9.375mg PO -increased lisinopril [address] Schultz -continue lasix 20 mg PO bid -Increased Aldactone 12.5mg PO BID ordered Dr Schultz -Monitor I/O's. -Cardiology consult appreciated, plan is for Dr. Mcdaniel to continue care into outpatient care, will manage per their recommendations #Acute Kidney Injury-Improving/stable -Crea 1.0 today -Nephrology recommendations Dr Schultz aware about dispo # Anemia, Acute s/p PRBC and I.V. Venofer improving -Hg today 10.2 -FOBT x 3 negative during admission # Peripheral Vascular Disease- s/p Left lower leg revascularization -Revascularization completed at [place]. -Monitor pedal pulses daily # Diabetes Mellitus Type 2-Improving -Asymptomatic -Levemir 6 units daily -D/C Metformin 500mg BID today -D/C Glipizide 2.5mg daily. -Continue insulin coverage regular 30 mins before meals. -F/U fasting glucose #Hypertension -c/w current management -Coreg 9.375mg Q12 # Hyperlipidemia -Continue home meds: atorvastatin # Depression-Improving -Patient more animated today -Sertraline 50 mg PO daily. # Hypokalemia-Resolved -Asymptomatic -K today 3.6 # DVT prophylaxis -Heparin 5000 units SQ. <Delia Matias - Last Filed: 06/17/17 07:44> Objective - Vital Signs/Intake and Output Vital Signs (last 24 hours): Temp Pulse Resp BP Pulse Ox 98.1 F 65 19 119/61 97 06/17/17 00:51 06/17/17 00:51 06/17/17 00:51 06/17/17 00:51 06/17/17 00:51 - Medications Medications: Current Medications Acetaminophen (Tylenol 325mg Tab) 650 mg PO Q6 PRN PRN Reason: Pain, moderate (4-7) Last Admin: 06/13/17 21:28 Dose: 650 mg Acetaminophen (Tylenol 325mg Tab) 650 mg PO Q4 PRN PRN Reason: Pain, Mild (1-3) Aspirin (Aspirin Chewable) 81 mg PO DAILY [facility] Last Admin: 06/16/17 10:44 Dose: 81 mg Atorvastatin Calcium (Lipitor) 40 mg PO HS [facility] Last Admin: 06/16/17 22:01 Dose: 40 mg Carvedilol (Coreg) 9.375 mg PO Q12 [facility] Last Admin: 06/16/17 22:00 Dose: 9.375 mg Clopidogrel Bisulfate (Plavix) 75 mg PO DAILY [facility] Last Admin: 06/16/17 10:48 Dose: 75 mg Collagenase (Santyl) 1 applic TOP DAILY [facility] Last Admin: 06/16/17 10:48 Dose: 1 applic Dextrose (Dextrose 50% Inj) 0 ml IV STAT PRN; Protocol PRN Reason: Hyglycemia Protocol Dextrose (Glutose 15) 0 gm PO ONCE PRN; Protocol PRN Reason: Hypoglycemia Protocol Furosemide (Lasix) 20 mg PO BID [facility] Last Admin: 06/16/17 18:00 Dose: 20 mg Glucagon (Glucagen Diagnostic Kit) 0 mg IM STAT PRN; Protocol PRN Reason: Hypoglycemia Protocol Heparin Sodium (Porcine) (Heparin) 5,000 units SC Q8 [facility] PRN Reason: Protocol Last Admin: 06/17/17 01:18 Dose: 5,000 units Insulin Detemir (Levemir) 6 units SC HS [facility] Last Admin: 06/16/17 22:19 Dose: 6 u Insulin Human Regular (Humulin R) 0 units SC ACHS [facility] PRN Reason: Protocol Last Admin: 06/17/17 06:30 Dose: 1 unit Lidocaine (Lidoderm) 2 ea TD DAILY [facility] Last Admin: 06/16/17 10:45 Dose: 2 ea Lisinopril (Zestril) 40 mg PO DAILY@0900 [facility] Last Admin: 06/16/17 10:49 Dose: 40 mg Saccharomyces Boulardii (Florastor) 250 mg PO BID [facility] Last Admin: 06/16/17 17:57 Dose: 250 mg Sertraline HCl (Zoloft) 50 mg PO HS [facility] Last Admin: 06/16/17 22:02 Dose: 50 mg Spironolactone (Aldactone) 12.5 mg PO BID [facility] Last Admin: 06/16/17 17:57 Dose: 12.5 mg Tramadol HCl (Ultram) 50 mg PO Q6 PRN PRN Reason: Pain, moderate (4-7) Last Admin: 06/16/17 11:58 Dose: 50 mg - Labs Labs: 06/16/17 11:35 06/16/17 11:35 PT 12.7 Seconds (9.8-13.1) 06/08/17 05:00 INR 1.2 (0.9-1.2) 06/08/17 05:00 APTT 26.5 Seconds (25.6-37.1) D 06/08/17 05:00 - Skin Additional comments: ADDENDUM ATTENDING NOTE PATIENT SEEN AND EXAMINED. CASE DISCUSSED WITH RESIDENT. AGREE WITH FINDINGS AND PLAN. WILL GIVE TRAMADOL FOR PAIN SINCE LIDOCAINE PATCH ALONE IS NOT CONTROLLING PAIN.
--- NOTE | 2017-06-16 14:50 | CP.PCM.PN ---
Subjective - Date & Time of Evaluation Date of Evaluation: 06/16/17 Time of Evaluation: 14:00 - Subjective Subjective: feeling fine denies any complaints Objective - Vital Signs/Intake and Output Vital Signs (last 24 hours): Temp Pulse Resp BP Pulse Ox 98.1 F 72 20 152/83 H 97 06/16/17 08:44 06/16/17 10:49 06/16/17 08:44 06/16/17 10:49 06/16/17 08:44 - Medications Medications: Current Medications Acetaminophen (Tylenol 325mg Tab) 650 mg PO Q6 PRN PRN Reason: Pain, moderate (4-7) Last Admin: 06/13/17 21:28 Dose: 650 mg Acetaminophen (Tylenol 325mg Tab) 650 mg PO Q4 PRN PRN Reason: Pain, Mild (1-3) Aspirin (Aspirin Chewable) 81 mg PO DAILY [facility] Last Admin: 06/16/17 10:44 Dose: 81 mg Atorvastatin Calcium (Lipitor) 40 mg PO HS [facility] Last Admin: 06/15/17 21:42 Dose: 40 mg Carvedilol (Coreg) 9.375 mg PO Q12 [facility] Last Admin: 06/16/17 09:57 Dose: 9.375 mg Clopidogrel Bisulfate (Plavix) 75 mg PO DAILY [facility] Last Admin: 06/16/17 10:48 Dose: 75 mg Collagenase (Santyl) 1 applic TOP DAILY [facility] Last Admin: 06/16/17 10:48 Dose: 1 applic Dextrose (Dextrose 50% Inj) 0 ml IV STAT PRN; Protocol PRN Reason: Hyglycemia Protocol Dextrose (Glutose 15) 0 gm PO ONCE PRN; Protocol PRN Reason: Hypoglycemia Protocol Furosemide (Lasix) 20 mg PO BID [facility] Last Admin: 06/16/17 09:56 Dose: 20 mg Glucagon (Glucagen Diagnostic Kit) 0 mg IM STAT PRN; Protocol PRN Reason: Hypoglycemia Protocol Heparin Sodium (Porcine) (Heparin) 5,000 units SC Q8 [facility] PRN Reason: Protocol Last Admin: 06/16/17 10:44 Dose: 5,000 units Insulin Detemir (Levemir) 6 units SC HS [facility] Last Admin: 06/15/17 21:47 Dose: 6 u Insulin Human Regular (Humulin R) 0 units SC ACHS [facility] PRN Reason: Protocol Last Admin: 06/16/17 07:21 Dose: Not Given Lidocaine (Lidoderm) 2 ea TD DAILY [facility] Last Admin: 06/16/17 10:45 Dose: 2 ea Lisinopril (Zestril) 40 mg PO DAILY@0900 [facility] Last Admin: 06/16/17 10:49 Dose: 40 mg Saccharomyces Boulardii (Florastor) 250 mg PO BID [facility] Last Admin: 06/15/17 17:59 Dose: 250 mg Sertraline HCl (Zoloft) 50 mg PO HS [facility] Last Admin: 06/15/17 21:43 Dose: 50 mg Spironolactone (Aldactone) 12.5 mg PO BID [facility] Last Admin: 06/16/17 09:55 Dose: 12.5 mg Tramadol HCl (Ultram) 50 mg PO Q6 PRN PRN Reason: Pain, moderate (4-7) Last Admin: 06/16/17 11:58 Dose: 50 mg - Labs Labs: 06/16/17 11:35 06/16/17 11:35 PT 12.7 Seconds (9.8-13.1) 06/08/17 05:00 INR 1.2 (0.9-1.2) 06/08/17 05:00 APTT 26.5 Seconds (25.6-37.1) D 06/08/17 05:00 - Constitutional Appears: Well - Head Exam Head Exam: ATRAUMATIC, NORMAL INSPECTION, NORMOCEPHALIC - Eye Exam Eye Exam: EOMI, Normal appearance, PERRL Pupil Exam: NORMAL ACCOMODATION, PERRL - ENT Exam ENT Exam: Mucous Membranes Moist, Normal Exam - Neck Exam Neck Exam: Full ROM, Normal Inspection. absent: Lymphadenopathy - Respiratory Exam Respiratory Exam: Clear to Ausculation Bilateral, NORMAL BREATHING PATTERN - Cardiovascular Exam Cardiovascular Exam: REGULAR RHYTHM, +S1, +S2, Murmur - GI/Abdominal Exam GI & Abdominal Exam: Soft, Normal Bowel Sounds. absent: Tenderness - Extremities Exam Extremities Exam: Full ROM, Normal Capillary Refill, Normal Inspection. absent : Joint Swelling, Pedal Edema - Back Exam Back Exam: NORMAL INSPECTION - Neurological Exam Neurological Exam: Alert, Awake, CN II-XII Intact, Oriented x3 - Psychiatric Exam Psychiatric exam: Normal Affect, Normal Mood - Skin Skin Exam: Dry, Intact, Normal Color, Warm Assessment and Plan (1) Systolic and diastolic CHF, acute on chronic Assessment & Plan: compensated, euvolemic cont with coreg, lasix, lisinopril and aldactone Status: Acute (2) Cardiomyopathy, dilated Assessment & Plan: Had discussion with about workup not complete based on findings of nuclear stress test attached refernce below from ACC/AHA heart failure guidelines Etiology of CHF ? ischemic on RAAS modulators and aldactone will need cath as outpt Role of left heart catheterization per ACC/AHA guidelines with references is listed below 6.5.2. Left-Heart Catheterization Left-heart catheterization or coronary angiography is indicated for patients with HF and angina and may be useful for those patients without angina but with LV dysfunction. Invasive coronary angiography should be used in accordance with the ACCF/AHA coronary artery bypass graft (CABG) and percutaneous coronary intervention [id number] and should only be performed in patients who are potentially eligible for revascularization.[id number] In patients with known CAD and angina or with significant ischemia diagnosed by ECG or noninvasive testing and impaired ventricular function, coronary angiography is indicated. Among those without a prior diagnosis, CAD should be considered as a potential etiology of impaired LV function and should be excluded wherever possible. Coronary angiography may be considered in these circumstances to detect and localize large-vessel coronary obstructions. In patients in whom CAD has been excluded as the cause of LV dysfunction, coronary angiography is generally not indicated unless a change in clinical status suggests interim development of ischemic disease. 10.Mc LD, Richard PK, Shahriar JL, et al. 2011 ACCF/AHA guideline for coronary artery bypass graft surgery: a report of the [place] [employer] Foundation/[place] [employer] Association Task Force on Practice Guidelines. Circulation. 2011;124:z888314.FREE Full TextGoogle Scholar 11.Kathleen BJ, Rodríguez BJ, Nciolas RO, et al. 2011 ACCF/AHA guideline for the diagnosis and treatment of hypertrophic cardiomyopathy: a report of the [place] [employer]/[place] [employer] Task Force on Practice Guidelines Developed in Collaboration With the [place] [employer] Thoracic [employer], [place] Society of Echocardiography, [place] Society of Nuclear Cardiology, Heart Failure Society of [place], Heart Rhythm Society, Society for Cardiovascular Angiography and Interventions, and Society of Thoracic Surgeons. Circulation. 2011;124:e783 831.FREE Full TextGoogle Scholar 12.Jennifer GN, Villa ER, Tara GIL, et al. 2011 ACCF/AHA/SCAI guideline for percutaneous coronary intervention: a report of the [place] [employer]/[place] [employer] Task Force on Practice Guidelines and the Society for Cardiovascular Angiography and Interventions. Circulation. 2011;124: [id number].FREE Full TextGoogle Scholar 307. EL, Avery LD, Robbin P, et al. Results of coronary artery surgery in patients with poor left ventricular function (KEVIN). Circulation. 1983;68: 23928.Abstract/FREE Full TextGoogle Scholar 308.May MR, Derachnaer GJ, Hirmaryanne JW, et al. ACCF/SCAI/STS/AATS/AHA/ASNC 2009 appropriateness criteria for coronary revascularization: a report by the [place] [employer] Appropriateness Criteria Task Force, Society for Cardiovascular Angiography and Interventions, Society of Thoracic Surgeons, [place] [employer] Thoracic [employer], [place] Heart Association , and the [place] Society of Nuclear Cardiology. Circulation. 2009;119: 860076.FREE Full TextGoogle Scholar 309.Segun EJ, Quentin KL, Ania MA, et al. Coronary-artery bypass surgery in patients with left ventricular dysfunction. N Engl J Med. 2011;364: 946633.CrossRefPubMedGoogle Scholar Status: Acute (3) CAD (coronary artery disease) Assessment & Plan: inferior wall akinetic with some dawna-infarct ischemia will need evaluation with cardiac catheterization as outpt Status: Acute (4) PVD (peripheral vascular disease) Assessment & Plan: s/p PVI on DAPT Status: Chronic (5) Volume overload Status: Acute (6) CKD (chronic kidney disease) Status: Chronic (7) Dyslipidemia Status: Chronic
--- NOTE | 2017-06-16 21:11 | CP.PCM.PN ---
Subjective - Date & Time of Evaluation Date of Evaluation: 06/16/17 Time of Evaluation: 21:09 - Subjective Subjective: Patient denies any shortness of breath; Objective - Vital Signs/Intake and Output Vital Signs (last 24 hours): Temp Pulse Resp BP Pulse Ox 98 F 68 20 131/75 96 06/16/17 16:27 06/16/17 16:27 06/16/17 16:27 06/16/17 18:00 06/16/17 16:27 - Medications Medications: Current Medications Acetaminophen (Tylenol 325mg Tab) 650 mg PO Q6 PRN PRN Reason: Pain, moderate (4-7) Last Admin: 06/13/17 21:28 Dose: 650 mg Acetaminophen (Tylenol 325mg Tab) 650 mg PO Q4 PRN PRN Reason: Pain, Mild (1-3) Aspirin (Aspirin Chewable) 81 mg PO DAILY [facility] Last Admin: 06/16/17 10:44 Dose: 81 mg Atorvastatin Calcium (Lipitor) 40 mg PO HS [facility] Last Admin: 06/15/17 21:42 Dose: 40 mg Carvedilol (Coreg) 9.375 mg PO Q12 [facility] Last Admin: 06/16/17 09:57 Dose: 9.375 mg Clopidogrel Bisulfate (Plavix) 75 mg PO DAILY [facility] Last Admin: 06/16/17 10:48 Dose: 75 mg Collagenase (Santyl) 1 applic TOP DAILY [facility] Last Admin: 06/16/17 10:48 Dose: 1 applic Dextrose (Dextrose 50% Inj) 0 ml IV STAT PRN; Protocol PRN Reason: Hyglycemia Protocol Dextrose (Glutose 15) 0 gm PO ONCE PRN; Protocol PRN Reason: Hypoglycemia Protocol Furosemide (Lasix) 20 mg PO BID [facility] Last Admin: 06/16/17 18:00 Dose: 20 mg Glucagon (Glucagen Diagnostic Kit) 0 mg IM STAT PRN; Protocol PRN Reason: Hypoglycemia Protocol Heparin Sodium (Porcine) (Heparin) 5,000 units SC Q8 [facility] PRN Reason: Protocol Last Admin: 06/16/17 17:58 Dose: 5,000 units Insulin Detemir (Levemir) 6 units SC HS [facility] Last Admin: 06/15/17 21:47 Dose: 6 u Insulin Human Regular (Humulin R) 0 units SC ACHS [facility] PRN Reason: Protocol Last Admin: 08/23/17 17:59 Dose: 2 unit Lidocaine (Lidoderm) 2 ea TD DAILY [facility] Last Admin: 06/16/17 10:45 Dose: 2 ea Lisinopril (Zestril) 40 mg PO DAILY@0900 [facility] Last Admin: 06/16/17 10:49 Dose: 40 mg Saccharomyces Boulardii (Florastor) 250 mg PO BID [facility] Last Admin: 06/16/17 17:57 Dose: 250 mg Sertraline HCl (Zoloft) 50 mg PO HS [facility] Last Admin: 06/15/17 21:43 Dose: 50 mg Spironolactone (Aldactone) 12.5 mg PO BID [facility] Last Admin: 06/16/17 17:57 Dose: 12.5 mg Tramadol HCl (Ultram) 50 mg PO Q6 PRN PRN Reason: Pain, moderate (4-7) Last Admin: 06/16/17 11:58 Dose: 50 mg - Labs Labs: 06/16/17 11:35 06/16/17 11:35 PT 12.7 Seconds (9.8-13.1) 06/08/17 05:00 INR 1.2 (0.9-1.2) 06/08/17 05:00 APTT 26.5 Seconds (25.6-37.1) D 06/08/17 05:00 - Constitutional Appears: Well, No Acute Distress - Head Exam Head Exam: NORMAL INSPECTION - Eye Exam Eye Exam: Normal appearance. absent: Scleral icterus - ENT Exam ENT Exam: Mucous Membranes Moist - Respiratory Exam Respiratory Exam: Clear to Ausculation Bilateral. absent: Rales, Rhonchi, Wheezes, Respiratory Distress - Cardiovascular Exam Cardiovascular Exam: REGULAR RHYTHM, +S1, +S2 - GI/Abdominal Exam GI & Abdominal Exam: Soft. absent: Distended, Tenderness - Exam Exam: absent: Bladder Distension - Extremities Exam Extremities Exam: Normal Capillary Refill Additional comments: Minimal lower leg edema on R, mild on L - Neurological Exam Neurological Exam: Alert, Awake - Psychiatric Exam Psychiatric exam: Normal Affect, Normal Mood - Skin Skin Exam: Normal Color, Warm. absent: Cyanosis Assessment and Plan (1) Acute renal failure Assessment & Plan: Resolved; Status: Resolved (2) Cardiomyopathy, dilated Assessment & Plan: Volume status improved; continue CHF meds with B-blockers, LUIS blockade and diuretics; consider increasing coreg dose as tolerated; Status: Acute (3) PVD (peripheral vascular disease) Assessment & Plan: Has significant disease including renovascular disease; continue atorvastatin; Status: Chronic (4) HTN (hypertension) Assessment & Plan: BP controlled; continue current regimen; Status: Chronic (5) CKD (chronic kidney disease) Assessment & Plan: Mainly non-proteinuric disease due to renovascular/cardiorenal etiology; is at significant risk for contrast induced nephropathy as occurred recently with patient having come close to the verge of requiring HD; if cardiac cath deemed necessary, need to keep keep volume replete with IVF for 6-12 hrs prior to dye load; Status: Chronic (6) Anemia Assessment & Plan: Hgb stable, s/p prbc transfusion and IV iron; monitor; Status: Acute
[2017-06-16] MEDS: Insulin Detemir 100 Units/ml Inj SC SCH (22:19)
[2017-06-17] MEDS: Insulin Regular 100 units/ml SC SCH ×4 (06:30→21:44)
--- NOTE | 2017-06-17 08:12 | CP.PCM.PN ---
Subjective - Date & Time of Evaluation Date of Evaluation: 06/17/17 Time of Evaluation: 08:10 - Subjective Subjective: Podiatry- Dr. Reynoso 66 year old female seen 9 days s/p partial resection of distal left 1st metatarsal, partial resection of base of proximal phalanx, excision of left tibial sesamoid and debridement of ulcers. Pt reports no pain to surgical site at this time. Patient states that she has only been able to walk more and more with each day and has been using her surgical shoe when moving. She denies and acute overnight events. She denies recent f/c/cp/sob/n/v. Objective - Vital Signs/Intake and Output Vital Signs (last 24 hours): Temp Pulse Resp BP Pulse Ox 98.1 F 65 19 119/61 97 06/17/17 00:51 06/17/17 00:51 06/17/17 00:51 06/17/17 00:51 06/17/17 00:51 - Medications Medications: Current Medications Acetaminophen (Tylenol 325mg Tab) 650 mg PO Q6 PRN PRN Reason: Pain, moderate (4-7) Last Admin: 06/13/17 21:28 Dose: 650 mg Acetaminophen (Tylenol 325mg Tab) 650 mg PO Q4 PRN PRN Reason: Pain, Mild (1-3) Aspirin (Aspirin Chewable) 81 mg PO DAILY [facility] Last Admin: 06/16/17 10:44 Dose: 81 mg Atorvastatin Calcium (Lipitor) 40 mg PO HS [facility] Last Admin: 06/16/17 22:01 Dose: 40 mg Carvedilol (Coreg) 9.375 mg PO Q12 [facility] Last Admin: 06/16/17 22:00 Dose: 9.375 mg Clopidogrel Bisulfate (Plavix) 75 mg PO DAILY [facility] Last Admin: 06/16/17 10:48 Dose: 75 mg Collagenase (Santyl) 1 applic TOP DAILY [facility] Last Admin: 06/16/17 10:48 Dose: 1 applic Dextrose (Dextrose 50% Inj) 0 ml IV STAT PRN; Protocol PRN Reason: Hyglycemia Protocol Dextrose (Glutose 15) 0 gm PO ONCE PRN; Protocol PRN Reason: Hypoglycemia Protocol Furosemide (Lasix) 20 mg PO BID [facility] Last Admin: 06/16/17 18:00 Dose: 20 mg Glucagon (Glucagen Diagnostic Kit) 0 mg IM STAT PRN; Protocol PRN Reason: Hypoglycemia Protocol Heparin Sodium (Porcine) (Heparin) 5,000 units SC Q8 [facility] PRN Reason: Protocol Last Admin: 06/17/17 01:18 Dose: 5,000 units Insulin Detemir (Levemir) 6 units SC HS [facility] Last Admin: 06/16/17 22:19 Dose: 6 u Insulin Human Regular (Humulin R) 0 units SC ACHS [facility] PRN Reason: Protocol Last Admin: 06/17/17 06:30 Dose: 1 unit Lidocaine (Lidoderm) 2 ea TD DAILY [facility] Last Admin: 06/16/17 10:45 Dose: 2 ea Lisinopril (Zestril) 40 mg PO DAILY@0900 [facility] Last Admin: 06/16/17 10:49 Dose: 40 mg Saccharomyces Boulardii (Florastor) 250 mg PO BID [facility] Last Admin: 06/16/17 17:57 Dose: 250 mg Sertraline HCl (Zoloft) 50 mg PO HS [facility] Last Admin: 06/16/17 22:02 Dose: 50 mg Spironolactone (Aldactone) 12.5 mg PO BID [facility] Last Admin: 06/16/17 17:57 Dose: 12.5 mg Tramadol HCl (Ultram) 50 mg PO Q6 PRN PRN Reason: Pain, moderate (4-7) Last Admin: 06/16/17 11:58 Dose: 50 mg - Labs Labs: 06/16/17 11:35 06/16/17 11:35 PT 12.7 Seconds (9.8-13.1) 06/08/17 05:00 INR 1.2 (0.9-1.2) 06/08/17 05:00 APTT 26.5 Seconds (25.6-37.1) D 06/08/17 05:00 - Constitutional Appears: Well, Non-toxic, No Acute Distress - Extremities Exam Additional comments: LLE focused examination: Dressing was clean. dry and intact Vasc: DP/PT pulses palpable. CFT < 4 seconds x10, temperature gradient WNL. Decreased edema noted to patient's left foot consistent with surgical procedure Neuro: Epicritic and protective sensation grossly intact Derm: Surgical site noted to be well coapted with no signs of dehiscence and all sutures intact, no periwound erythema, malodor, drainage or other clinical signs of infection. Ulcer site to left digit is nonerythematous with no drainage , malodor or other clinical signs of infection at this time. Necrotic eschar noted overlying ulceration site at left first metatarsal head level MSK: No pain with palpation near surgical site - Neurological Exam Neurological Exam: Alert, Awake, Oriented x3 - Psychiatric Exam Psychiatric exam: Normal Affect, Normal Mood Assessment and Plan - Assessment and Plan (Free Text) Assessment: 66 year old female 9 days s/p left foot partial exostectomy first metatarsal, partial exostectomy proximal phalanx base, excision tibial sesamoid secondary to OM Plan: Patient seen and evaluated at bedside Charts, labs and vitals reviewed; absent leukocytosis. Afebrile Dressing of xeroform gauze & DSD applied to surgical site. Santyl also applied to ulcer site at level of first MTPJ. Pt to be full weightbearing with use of post-op shoe to left foot. Patient stable from podiatry standpoint Podiatry will continue to follow while in house Upon [place] patient will follow up with Dr. Reynoso in wound care center
[2017-06-17] MEDS: Saccharomyces Boulardi 250 mg Cap PO SCH ×2 (09:45→16:46)
[2017-06-17] MEDS: Lidocaine 5% Patch TD SCH (09:46)
[2017-06-17] MEDS: Santyl Collagenase OINTMENT TOP SCH (09:49)
--- NOTE | 2017-06-17 14:12 | CP.PCM.PN ---
<Wen [place] - Last Filed: 06/17/17 15:33> Subjective - Date & Time of Evaluation Date of Evaluation: 06/17/17 Time of Evaluation: 07:25 - Subjective Subjective: Patient seen and examined this morning at bedside, no overnight events, reports feeling well, slept well, good appetite. Reports minimal foot pain this morning. Denies fever, vomiting, abdominal pain, no sob, no chest pain, no urinary symptoms. Objective - Vital Signs/Intake and Output Vital Signs (last 24 hours): Temp Pulse Resp BP Pulse Ox 98.2 F 67 20 148/80 98 06/17/17 08:33 06/17/17 09:50 06/17/17 08:33 06/17/17 09:50 06/17/17 08:33 - Medications Medications: Current Medications Acetaminophen (Tylenol 325mg Tab) 650 mg PO Q6 PRN PRN Reason: Pain, moderate (4-7) Last Admin: 06/13/17 21:28 Dose: 650 mg Acetaminophen (Tylenol 325mg Tab) 650 mg PO Q4 PRN PRN Reason: Pain, Mild (1-3) Aspirin (Aspirin Chewable) 81 mg PO DAILY [facility] Last Admin: 06/17/17 09:44 Dose: 81 mg Atorvastatin Calcium (Lipitor) 40 mg PO HS [facility] Last Admin: 06/16/17 22:01 Dose: 40 mg Carvedilol (Coreg) 9.375 mg PO Q12 [facility] Last Admin: 06/17/17 09:44 Dose: 9.375 mg Clopidogrel Bisulfate (Plavix) 75 mg PO DAILY [facility] Last Admin: 06/17/17 09:49 Dose: 75 mg Collagenase (Santyl) 1 applic TOP DAILY [facility] Last Admin: 06/17/17 09:49 Dose: 1 applic Dextrose (Dextrose 50% Inj) 0 ml IV STAT PRN; Protocol PRN Reason: Hyglycemia Protocol Dextrose (Glutose 15) 0 gm PO ONCE PRN; Protocol PRN Reason: Hypoglycemia Protocol Furosemide (Lasix) 20 mg PO BID [facility] Last Admin: 06/17/17 09:43 Dose: 20 mg Glucagon (Glucagen Diagnostic Kit) 0 mg IM STAT PRN; Protocol PRN Reason: Hypoglycemia Protocol Heparin Sodium (Porcine) (Heparin) 5,000 units SC Q8 [facility] PRN Reason: Protocol Last Admin: 06/17/17 09:46 Dose: 5,000 units Insulin Detemir (Levemir) 6 units SC [facility] Last Admin: 06/16/17 22:19 Dose: 6 u Insulin Human Regular (Humulin R) 0 units SC [facility] PRN Reason: Protocol Last Admin: 06/17/17 06:30 Dose: 1 unit Lidocaine (Lidoderm) 2 ea TD DAILY [facility] Last Admin: 06/17/17 09:46 Dose: 2 ea Lisinopril (Zestril) 40 mg PO DAILY@0900 [facility] Last Admin: 06/17/17 09:50 Dose: 40 mg Saccharomyces Boulardii (Florastor) 250 mg PO BID [facility] Last Admin: 06/17/17 09:45 Dose: 250 mg Sertraline HCl (Zoloft) 50 mg PO HS [facility] Last Admin: 06/16/17 22:02 Dose: 50 mg Spironolactone (Aldactone) 12.5 mg PO BID [facility] Last Admin: 06/17/17 09:41 Dose: 12.5 mg Tramadol HCl (Ultram) 50 mg PO Q6 PRN PRN Reason: Pain, moderate (4-7) Last Admin: 06/16/17 11:58 Dose: 50 mg - Labs Labs: 06/16/17 11:35 06/16/17 11:35 PT 12.7 Seconds (9.8-13.1) 06/08/17 05:00 INR 1.2 (0.9-1.2) 06/08/17 05:00 APTT 26.5 Seconds (25.6-37.1) D 06/08/17 05:00 - Constitutional Appears: Well, No Acute Distress - Head Exam Head Exam: ATRAUMATIC, NORMOCEPHALIC - Eye Exam Eye Exam: EOMI, Normal appearance, PERRL. absent: Nystagmus - Neck Exam Neck Exam: Full ROM. absent: Lymphadenopathy, Thyromegaly - Respiratory Exam Respiratory Exam: Clear to Ausculation Bilateral, NORMAL BREATHING PATTERN - Cardiovascular Exam Cardiovascular Exam: REGULAR RHYTHM, +S1, +S2. absent: Murmur - GI/Abdominal Exam GI & Abdominal Exam: Soft, Normal Bowel Sounds. absent: Tenderness, Organomegaly - Extremities Exam Extremities Exam: Full ROM, Joint Swelling (limited to L toe, dressing change observed, wound looks clean, no infection signs, no bleeding.). absent: Calf Tenderness - Back Exam Back Exam: NORMAL INSPECTION. absent: vertebral tenderness - Neurological Exam Neurological Exam: Alert, Awake, CN II-XII Intact, Oriented x3 - Psychiatric Exam Psychiatric exam: Normal Mood - Skin Skin Exam: Dry, Normal Color, Warm Assessment and Plan - Assessment and Plan (Free Text) Assessment: 66 y.o. female with hx of Peripheral vascular disease admitted for osteomyelitis POD 9 Partial resection of 1st metatarsal L foot. #Osteomyelitis, Acute -Partial resection of 1st metatarsal L foot completed in OR by Podiatry (06/08) . -Cleared for podiatry and F/U on 06/23/[address] Reynoso. -Completed 7 days abx treatment. -Ordered Tramadol for pain as lidocaine patch alone in not controlling pain. -PT evaluation: [facility] recommended. -Enable to perform PT patient d/c is pending PT progression as she is not a safe d/c to home at this time. -Encouraged OOB #Acute Decompensated Systolic Heart Failure- EF 20% -Last Echo (06/10) EF <15-20% -c/w Coreg 9.375mg PO -increased lisinopril [address] Schultz -continue lasix 20 mg PO bid -Increased Aldactone 12.5mg PO BID ordered Dr Schultz -Monitor I/O's. -Dr. Mcdaniel will continue care into outpatient care, will manage per their recommendations #Acute Kidney Injury-Improving/stable -Crea 1.0 today -Nephrology recommendations Dr Schultz aware about dispo # Anemia, Acute s/p PRBC and I.V. Venofer improving -Hg today 10.2 -FOBT x 3 negative during admission # Peripheral Vascular Disease- s/p Left lower leg revascularization -Revascularization completed at [facility]. -Monitor pedal pulses daily # Diabetes Mellitus Type 2-Improving -Levemir 6 units daily. -Continue insulin coverage regular 30 mins before meals. -F/U fasting glucose #Hypertension -c/w current management -Coreg 9.375mg Q12 # Hyperlipidemia -Continue home meds: atorvastatin # Depression-Improving -Patient feel more animated. -Sertraline 50 mg PO daily. # Hypokalemia-Resolved -Asymptomatic # DVT prophylaxis -Heparin 5000 units SQ. <Delia Matias - Last Filed: 06/18/17 08:29> Objective - Vital Signs/Intake and Output Vital Signs (last 24 hours): Temp Pulse Resp BP Pulse Ox 98 F 76 19 138/70 96 06/18/17 00:05 06/18/17 00:05 06/18/17 00:05 06/18/17 00:05 06/18/17 00:05 - Medications Medications: Current Medications Acetaminophen (Tylenol 325mg Tab) 650 mg PO Q6 PRN PRN Reason: Pain, moderate (4-7) Last Admin: 06/13/17 21:28 Dose: 650 mg Acetaminophen (Tylenol 325mg Tab) 650 mg PO Q4 PRN PRN Reason: Pain, Mild (1-3) Aspirin (Aspirin Chewable) 81 mg PO DAILY [facility] Last Admin: 06/17/17 09:44 Dose: 81 mg Atorvastatin Calcium (Lipitor) 40 mg PO HS [facility] Last Admin: 06/17/17 21:35 Dose: 40 mg Carvedilol (Coreg) 12.5 mg PO Q12 [facility] Last Admin: 06/17/17 21:36 Dose: 12.5 mg Clopidogrel Bisulfate (Plavix) 75 mg PO DAILY [facility] Last Admin: 06/17/17 09:49 Dose: 75 mg Collagenase (Santyl) 1 applic TOP DAILY [facility] Last Admin: 06/17/17 09:49 Dose: 1 applic Dextrose (Dextrose 50% Inj) 0 ml IV STAT PRN; Protocol PRN Reason: Hyglycemia Protocol Dextrose (Glutose 15) 0 gm PO ONCE PRN; Protocol PRN Reason: Hypoglycemia Protocol Furosemide (Lasix) 20 mg PO BID [facility] Last Admin: 06/17/17 16:49 Dose: 20 mg Glucagon (Glucagen Diagnostic Kit) 0 mg IM STAT PRN; Protocol PRN Reason: Hypoglycemia Protocol Heparin Sodium (Porcine) (Heparin) 5,000 units SC Q8 [facility] PRN Reason: Protocol Last Admin: 06/18/17 00:42 Dose: 5,000 units Insulin Detemir (Levemir) 8 units SC HS [facility] Last Admin: 06/17/17 21:43 Dose: 8 u Insulin Human Regular (Humulin R) 0 units SC ACHS [facility] PRN Reason: Protocol Last Admin: 06/17/17 21:44 Dose: 2 unit Lidocaine (Lidoderm) 2 ea TD DAILY [facility] Last Admin: 06/17/17 09:46 Dose: 2 ea Lisinopril (Zestril) 40 mg PO DAILY@0900 [facility] Last Admin: 06/17/17 09:50 Dose: 40 mg Saccharomyces Boulardii (Florastor) 250 mg PO BID [facility] Last Admin: 06/17/17 16:46 Dose: 250 mg Sertraline HCl (Zoloft) 50 mg PO HS [facility] Last Admin: 06/17/17 21:35 Dose: 50 mg Spironolactone (Aldactone) 12.5 mg PO BID [facility] Last Admin: 06/17/17 16:45 Dose: 12.5 mg Tramadol HCl (Ultram) 50 mg PO Q6 PRN PRN Reason: Pain, moderate (4-7) Last Admin: 06/18/17 03:13 Dose: 50 mg - Labs Labs: 06/16/17 11:35 06/16/17 11:35 PT 12.7 Seconds (9.8-13.1) 06/08/17 05:00 INR 1.2 (0.9-1.2) 06/08/17 05:00 APTT 26.5 Seconds (25.6-37.1) D 06/08/17 05:00 - Skin Additional comments: ADDENDUM ATTENDING NOTE PATIENT SEEN BY ME AND EXAMINED. ABLE TO DO PT WITH PO ULTRACET ORDERED. CASE DISCUSSED WITH RESIDENT. AGREE WITH FINDINGS AND PLAN.
[2017-06-17] MEDS ORDERED: Insulin Detemir 100 Units/ml Inj SC SCH (17:45)
--- NOTE | 2017-06-17 22:31 | CP.PCM.PN ---
Objective - Vital Signs/Intake and Output Vital Signs (last 24 hours): Temp Pulse Resp BP Pulse Ox 97.8 F 72 20 136/73 94 L 06/17/17 16:56 06/17/17 21:36 06/17/17 16:56 06/17/17 21:36 06/17/17 16:56 - Medications Medications: Current Medications Acetaminophen (Tylenol 325mg Tab) 650 mg PO Q6 PRN PRN Reason: Pain, moderate (4-7) Last Admin: 06/13/17 21:28 Dose: 650 mg Acetaminophen (Tylenol 325mg Tab) 650 mg PO Q4 PRN PRN Reason: Pain, Mild (1-3) Aspirin (Aspirin Chewable) 81 mg PO DAILY [facility] Last Admin: 06/17/17 09:44 Dose: 81 mg Atorvastatin Calcium (Lipitor) 40 mg PO HS [facility] Last Admin: 06/17/17 21:35 Dose: 40 mg Carvedilol (Coreg) 12.5 mg PO Q12 [facility] Last Admin: 06/17/17 21:36 Dose: 12.5 mg Clopidogrel Bisulfate (Plavix) 75 mg PO DAILY [facility] Last Admin: 06/17/17 09:49 Dose: 75 mg Collagenase (Santyl) 1 applic TOP DAILY [facility] Last Admin: 06/17/17 09:49 Dose: 1 applic Dextrose (Dextrose 50% Inj) 0 ml IV STAT PRN; Protocol PRN Reason: Hyglycemia Protocol Dextrose (Glutose 15) 0 gm PO ONCE PRN; Protocol PRN Reason: Hypoglycemia Protocol Furosemide (Lasix) 20 mg PO BID [facility] Last Admin: 06/17/17 16:49 Dose: 20 mg Glucagon (Glucagen Diagnostic Kit) 0 mg IM STAT PRN; Protocol PRN Reason: Hypoglycemia Protocol Heparin Sodium (Porcine) (Heparin) 5,000 units SC Q8 [facility] PRN Reason: Protocol Last Admin: 06/17/17 16:46 Dose: 5,000 units Insulin Detemir (Levemir) 8 units SC HS [facility] Last Admin: 06/17/17 21:43 Dose: 8 u Insulin Human Regular (Humulin R) 0 units SC ACHS [facility] PRN Reason: Protocol Last Admin: 06/17/17 21:44 Dose: 2 unit Lidocaine (Lidoderm) 2 ea TD DAILY [facility] Last Admin: 06/17/17 09:46 Dose: 2 ea Lisinopril (Zestril) 40 mg PO DAILY@0900 [facility] Last Admin: 06/17/17 09:50 Dose: 40 mg Saccharomyces Boulardii (Florastor) 250 mg PO BID [facility] Last Admin: 06/17/17 16:46 Dose: 250 mg Sertraline HCl (Zoloft) 50 mg PO HS [facility] Last Admin: 06/17/17 21:35 Dose: 50 mg Spironolactone (Aldactone) 12.5 mg PO BID [facility] Last Admin: 06/17/17 16:45 Dose: 12.5 mg Tramadol HCl (Ultram) 50 mg PO Q6 PRN PRN Reason: Pain, moderate (4-7) Last Admin: 06/16/17 11:58 Dose: 50 mg - Labs Labs: 06/16/17 11:35 06/16/17 11:35 PT 12.7 Seconds (9.8-13.1) 06/08/17 05:00 INR 1.2 (0.9-1.2) 06/08/17 05:00 APTT 26.5 Seconds (25.6-37.1) D 06/08/17 05:00 Assessment and Plan (1) Acute renal failure Status: Resolved (2) Cardiomyopathy, dilated Status: Acute (3) PVD (peripheral vascular disease) Status: Chronic (4) HTN (hypertension) Status: Chronic (5) CKD (chronic kidney disease) Status: Chronic (6) Anemia Status: Acute
--- NOTE | 2017-06-17 23:34 | CP.PCM.PN ---
Subjective - Date & Time of Evaluation Date of Evaluation: 06/17/17 Time of Evaluation: 12:00 - Subjective Subjective: feeling fine will review her clinical status with family later today Objective - Vital Signs/Intake and Output Vital Signs (last 24 hours): Temp Pulse Resp BP Pulse Ox 97.8 F 72 20 136/73 94 L 06/17/17 16:56 06/17/17 21:36 06/17/17 16:56 06/17/17 21:36 06/17/17 16:56 - Medications Medications: Current Medications Acetaminophen (Tylenol 325mg Tab) 650 mg PO Q6 PRN PRN Reason: Pain, moderate (4-7) Last Admin: 06/13/17 21:28 Dose: 650 mg Acetaminophen (Tylenol 325mg Tab) 650 mg PO Q4 PRN PRN Reason: Pain, Mild (1-3) Aspirin (Aspirin Chewable) 81 mg PO DAILY [facility] Last Admin: 06/17/17 09:44 Dose: 81 mg Atorvastatin Calcium (Lipitor) 40 mg PO HS [facility] Last Admin: 06/17/17 21:35 Dose: 40 mg Carvedilol (Coreg) 12.5 mg PO Q12 [facility] Last Admin: 06/17/17 21:36 Dose: 12.5 mg Clopidogrel Bisulfate (Plavix) 75 mg PO DAILY [facility] Last Admin: 06/17/17 09:49 Dose: 75 mg Collagenase (Santyl) 1 applic TOP DAILY [facility] Last Admin: 06/17/17 09:49 Dose: 1 applic Dextrose (Dextrose 50% Inj) 0 ml IV STAT PRN; Protocol PRN Reason: Hyglycemia Protocol Dextrose (Glutose 15) 0 gm PO ONCE PRN; Protocol PRN Reason: Hypoglycemia Protocol Furosemide (Lasix) 20 mg PO BID [facility] Last Admin: 06/17/17 16:49 Dose: 20 mg Glucagon (Glucagen Diagnostic Kit) 0 mg IM STAT PRN; Protocol PRN Reason: Hypoglycemia Protocol Heparin Sodium (Porcine) (Heparin) 5,000 units SC Q8 [facility] PRN Reason: Protocol Last Admin: 06/17/17 16:46 Dose: 5,000 units Insulin Detemir (Levemir) 8 units SC HS [facility] Last Admin: 06/17/17 21:43 Dose: 8 u Insulin Human Regular (Humulin R) 0 units SC ACHS [facility] PRN Reason: Protocol Last Admin: 06/17/17 21:44 Dose: 2 unit Lidocaine (Lidoderm) 2 ea TD DAILY [facility] Last Admin: 06/17/17 09:46 Dose: 2 ea Lisinopril (Zestril) 40 mg PO DAILY@0900 [facility] Last Admin: 06/17/17 09:50 Dose: 40 mg Saccharomyces Boulardii (Florastor) 250 mg PO BID [facility] Last Admin: 06/17/17 16:46 Dose: 250 mg Sertraline HCl (Zoloft) 50 mg PO HS [facility] Last Admin: 06/17/17 21:35 Dose: 50 mg Spironolactone (Aldactone) 12.5 mg PO BID [facility] Last Admin: 06/17/17 16:45 Dose: 12.5 mg Tramadol HCl (Ultram) 50 mg PO Q6 PRN PRN Reason: Pain, moderate (4-7) Last Admin: 06/16/17 11:58 Dose: 50 mg - Labs Labs: 06/16/17 11:35 06/16/17 11:35 PT 12.7 Seconds (9.8-13.1) 06/08/17 05:00 INR 1.2 (0.9-1.2) 06/08/17 05:00 APTT 26.5 Seconds (25.6-37.1) D 06/08/17 05:00 - Constitutional Appears: Well - Head Exam Head Exam: ATRAUMATIC, NORMAL INSPECTION, NORMOCEPHALIC - Eye Exam Eye Exam: EOMI, Normal appearance, PERRL Pupil Exam: NORMAL ACCOMODATION, PERRL - ENT Exam ENT Exam: Mucous Membranes Moist, Normal Exam - Neck Exam Neck Exam: Full ROM, Normal Inspection. absent: Lymphadenopathy - Respiratory Exam Respiratory Exam: Clear to Ausculation Bilateral, NORMAL BREATHING PATTERN - Cardiovascular Exam Cardiovascular Exam: REGULAR RHYTHM, +S1, +S2, Murmur - GI/Abdominal Exam GI & Abdominal Exam: Soft, Normal Bowel Sounds. absent: Tenderness - Extremities Exam Extremities Exam: Full ROM, Normal Capillary Refill, Normal Inspection. absent : Joint Swelling, Pedal Edema - Back Exam Back Exam: NORMAL INSPECTION - Neurological Exam Neurological Exam: Alert, Awake, CN II-XII Intact, Oriented x3 - Psychiatric Exam Psychiatric exam: Normal Affect, Normal Mood - Skin Skin Exam: Dry, Intact, Normal Color, Warm Assessment and Plan (1) Systolic and diastolic CHF, acute on chronic Assessment & Plan: on RAAS modulators and aldactone compensated, euvolemic need w/u completed prior to AICD Status: Acute (2) Cardiomyopathy, dilated Assessment & Plan: CHF w/u not complete cont with current meds will arrange for cath and if needed AICD Status: Acute (3) CAD (coronary artery disease) Assessment & Plan: nuclear scan showing inferior wall scar tissue c/w prior IN further delineation of anatomy for treatment Status: Acute (4) PVD (peripheral vascular disease) Assessment & Plan: on DAPT recent PVI Status: Chronic (5) Volume overload Status: Acute (6) CKD (chronic kidney disease) Status: Chronic (7) Dyslipidemia Status: Chronic
[2017-06-18] MEDS: Insulin Regular 100 units/ml SC SCH ×4 (08:40→22:03)
[2017-06-18] MEDS: Saccharomyces Boulardi 250 mg Cap PO SCH ×2 (08:44→17:03)
[2017-06-18] MEDS: Lidocaine 5% Patch TD SCH (08:45)
[2017-06-18] MEDS: Santyl Collagenase OINTMENT TOP SCH (08:46)
--- NOTE | 2017-06-18 09:02 | CP.PCM.PN ---
Subjective - Date & Time of Evaluation Date of Evaluation: 06/18/17 Time of Evaluation: 08:00 - Subjective Subjective: Podiatry- Dr. Reynoso 66 year old female seen 10 days s/p partial resection of distal left 1st metatarsal, partial resection of base of proximal phalanx, excision of left tibial sesamoid and debridement of ulcers. Pt reports no pain to surgical site at this time. Patient states that she has only been able to walk more and more with each day and has been using her surgical shoe when moving. She denies and acute overnight events. She denies recent f/c/cp/sob/n/v. Objective - Vital Signs/Intake and Output Vital Signs (last 24 hours): Temp Pulse Resp BP Pulse Ox 98 F 76 19 138/70 96 06/18/17 00:05 06/18/17 00:05 06/18/17 00:05 06/18/17 08:43 06/18/17 00:05 - Medications Medications: Current Medications Acetaminophen (Tylenol 325mg Tab) 650 mg PO Q6 PRN PRN Reason: Pain, moderate (4-7) Last Admin: 06/13/17 21:28 Dose: 650 mg Acetaminophen (Tylenol 325mg Tab) 650 mg PO Q4 PRN PRN Reason: Pain, Mild (1-3) Aspirin (Aspirin Chewable) 81 mg PO DAILY [facility] Last Admin: 06/18/17 08:45 Dose: 81 mg Atorvastatin Calcium (Lipitor) 40 mg PO HS [facility] Last Admin: 06/17/17 21:35 Dose: 40 mg Carvedilol (Coreg) 12.5 mg PO Q12 [facility] Last Admin: 06/18/17 08:44 Dose: 12.5 mg Clopidogrel Bisulfate (Plavix) 75 mg PO DAILY [facility] Last Admin: 06/18/17 08:44 Dose: 75 mg Collagenase (Santyl) 1 applic TOP DAILY [facility] Last Admin: 06/18/17 08:46 Dose: 1 applic Dextrose (Dextrose 50% Inj) 0 ml IV STAT PRN; Protocol PRN Reason: Hyglycemia Protocol Dextrose (Glutose 15) 0 gm PO ONCE PRN; Protocol PRN Reason: Hypoglycemia Protocol Furosemide (Lasix) 20 mg PO BID [facility] Last Admin: 06/18/17 08:43 Dose: 20 mg Glucagon (Glucagen Diagnostic Kit) 0 mg IM STAT PRN; Protocol PRN Reason: Hypoglycemia Protocol Heparin Sodium (Porcine) (Heparin) 5,000 units SC Q8 [facility] PRN Reason: Protocol Last Admin: 06/18/17 08:42 Dose: 5,000 units Insulin Detemir (Levemir) 8 units SC HS [facility] Last Admin: 06/17/17 21:43 Dose: 8 u Insulin Human Regular (Humulin R) 0 units SC ACHS [facility] PRN Reason: Protocol Last Admin: 06/18/17 08:40 Dose: Not Given Lidocaine (Lidoderm) 2 ea TD DAILY [facility] Last Admin: 06/18/17 08:45 Dose: 2 ea Lisinopril (Zestril) 40 mg PO DAILY@0900 [facility] Last Admin: 06/18/17 08:43 Dose: 40 mg Saccharomyces Boulardii (Florastor) 250 mg PO BID [facility] Last Admin: 06/18/17 08:44 Dose: 250 mg Sertraline HCl (Zoloft) 50 mg PO HS [facility] Last Admin: 06/17/17 21:35 Dose: 50 mg Spironolactone (Aldactone) 12.5 mg PO BID [facility] Last Admin: 06/18/17 08:44 Dose: 12.5 mg Tramadol HCl (Ultram) 50 mg PO Q6 PRN PRN Reason: Pain, moderate (4-7) Last Admin: 06/18/17 03:13 Dose: 50 mg - Labs Labs: 06/16/17 11:35 06/16/17 11:35 PT 12.7 Seconds (9.8-13.1) 06/08/17 05:00 INR 1.2 (0.9-1.2) 06/08/17 05:00 APTT 26.5 Seconds (25.6-37.1) D 06/08/17 05:00 - Constitutional Appears: Well, Non-toxic, No Acute Distress - Extremities Exam Additional comments: LLE focused examination: Dressing was clean, dry and intact Vasc: DP/PT pulses palpable. CFT < 4 seconds x10, temperature gradient WNL. Decreased edema noted to patient's left foot consistent with surgical procedure Neuro: Epicritic and protective sensation grossly intact Derm: Surgical site noted to be well coapted with no signs of dehiscence and all sutures intact, no periwound erythema, malodor, drainage or other clinical signs of infection. Ulcer site to left digit is nonerythematous with no drainage , malodor or other clinical signs of infection at this time. Necrotic eschar noted overlying ulceration site at left first metatarsal head level MSK: No pain with palpation near surgical site - Neurological Exam Neurological Exam: Alert, Awake, Oriented x3 - Psychiatric Exam Psychiatric exam: Normal Affect, Normal Mood Assessment and Plan - Assessment and Plan (Free Text) Assessment: 66 year old female 9 days s/p left foot partial exostectomy first metatarsal, partial exostectomy proximal phalanx base, excision tibial sesamoid secondary to OM Plan: Patient seen and evaluated at bedside Charts, labs and vitals reviewed; absent leukocytosis. Afebrile Dressing of xeroform gauze & DSD applied to surgical site. Santyl also applied to ulcer site at level of first MTPJ. Pt to be full weightbearing with use of post-op shoe to left foot. Pt to continue PT until stable enough to be DC'd home Patient stable from podiatry standpoint Podiatry will continue to follow while in house Upon DC patient will follow up with Dr. Reynoso in wound care center
--- NOTE | 2017-06-18 09:54 | CP.PCM.PN ---
<Wen Dallas - Last Filed: 06/18/17 15:52> Subjective - Date & Time of Evaluation Date of Evaluation: 06/18/17 Time of Evaluation: 07:00 - Subjective Subjective: Patient seen and examined this morning at bedside, no overnight events, reports feeling fine, mild pain on her L foot, slept well through night,states good appetite. Denies fever, vomiting, abdominal pain, no sob, no chest pain, no urinary symptoms. She feels comfortable during PT. Objective - Vital Signs/Intake and Output Vital Signs (last 24 hours): Temp Pulse Resp BP Pulse Ox 97.9 F 65 20 151/81 H 99 06/18/17 09:00 06/18/17 09:00 06/18/17 09:00 06/18/17 09:00 06/18/17 09:00 - Medications Medications: Current Medications Acetaminophen (Tylenol 325mg Tab) 650 mg PO Q6 PRN PRN Reason: Pain, moderate (4-7) Last Admin: 06/13/17 21:28 Dose: 650 mg Acetaminophen (Tylenol 325mg Tab) 650 mg PO Q4 PRN PRN Reason: Pain, Mild (1-3) Aspirin (Aspirin Chewable) 81 mg PO DAILY [facility] Last Admin: 06/18/17 08:45 Dose: 81 mg Atorvastatin Calcium (Lipitor) 40 mg PO HS [facility] Last Admin: 06/17/17 21:35 Dose: 40 mg Carvedilol (Coreg) 12.5 mg PO Q12 [facility] Last Admin: 06/18/17 08:44 Dose: 12.5 mg Clopidogrel Bisulfate (Plavix) 75 mg PO DAILY [facility] Last Admin: 06/18/17 08:44 Dose: 75 mg Collagenase (Santyl) 1 applic TOP DAILY [facility] Last Admin: 06/18/17 08:46 Dose: 1 applic Dextrose (Dextrose 50% Inj) 0 ml IV STAT PRN; Protocol PRN Reason: Hyglycemia Protocol Dextrose (Glutose 15) 0 gm PO ONCE PRN; Protocol PRN Reason: Hypoglycemia Protocol Furosemide (Lasix) 20 mg PO BID [facility] Last Admin: 06/18/17 08:43 Dose: 20 mg Glucagon (Glucagen Diagnostic Kit) 0 mg IM STAT PRN; Protocol PRN Reason: Hypoglycemia Protocol Heparin Sodium (Porcine) (Heparin) 5,000 units SC Q8 [facility] PRN Reason: Protocol Last Admin: 06/18/17 08:42 Dose: 5,000 units Insulin Detemir (Levemir) 8 units SC [facility] Last Admin: 06/17/17 21:43 Dose: 8 u Insulin Human Regular (Humulin R) 0 units SC [facility] PRN Reason: Protocol Last Admin: 06/18/17 08:40 Dose: Not Given Lidocaine (Lidoderm) 2 ea TD DAILY [facility] Last Admin: 06/18/17 08:45 Dose: 2 ea Lisinopril (Zestril) 40 mg PO DAILY@0900 [facility] Last Admin: 06/18/17 08:43 Dose: 40 mg Saccharomyces Boulardii (Florastor) 250 mg PO BID [facility] Last Admin: 06/18/17 08:44 Dose: 250 mg Sertraline HCl (Zoloft) 50 mg PO [facility] Last Admin: 06/17/17 21:35 Dose: 50 mg Spironolactone (Aldactone) 12.5 mg PO BID [facility] Last Admin: 06/18/17 08:44 Dose: 12.5 mg Tramadol HCl (Ultram) 50 mg PO Q6 PRN PRN Reason: Pain, moderate (4-7) Last Admin: 06/18/17 03:13 Dose: 50 mg - Labs Labs: 06/16/17 11:35 06/16/17 11:35 PT 12.7 Seconds (9.8-13.1) 06/08/17 05:00 INR 1.2 (0.9-1.2) 06/08/17 05:00 APTT 26.5 Seconds (25.6-37.1) D 06/08/17 05:00 - Constitutional Appears: Well, No Acute Distress - Head Exam Head Exam: ATRAUMATIC, NORMOCEPHALIC - Eye Exam Eye Exam: EOMI, Normal appearance, PERRL - Neck Exam Neck Exam: Full ROM. absent: Lymphadenopathy, Thyromegaly - Respiratory Exam Respiratory Exam: Clear to Ausculation Bilateral, NORMAL BREATHING PATTERN - Cardiovascular Exam Cardiovascular Exam: REGULAR RHYTHM, +S1, +S2. absent: Murmur - GI/Abdominal Exam GI & Abdominal Exam: Soft, Normal Bowel Sounds. absent: Tenderness, Organomegaly - Extremities Exam Extremities Exam: Full ROM. absent: Calf Tenderness, Pedal Edema Additional comments: L foot dressing clean, mild swelling of L toe. - Back Exam Back Exam: NORMAL INSPECTION. absent: CVA tenderness (L), CVA tenderness (R), vertebral tenderness - Neurological Exam Neurological Exam: Alert, Awake, CN II-XII Intact, Oriented x3, Reflexes Normal - Psychiatric Exam Psychiatric exam: Normal Mood - Skin Skin Exam: Dry, Normal Color, Warm Assessment and Plan - Assessment and Plan (Free Text) Assessment: 66 y.o. female with hx of Peripheral vascular disease admitted for osteomyelitis POD 10 Partial resection of 1st metatarsal L foot. #Osteomyelitis, Acute -Partial resection of 1st metatarsal L foot completed in OR by Podiatry (06/08) . -Cleared for podiatry and F/U on 06/23/[address] Reynoso. -c/w Tramadol and lidocaine patch for pain. -PT evaluation: [facility]ON[facility] recommended. -Enable to perform PT patient d/c is pending PT progression as she is not a safe d/c to home at this time. -Encouraged OOB #Acute Decompensated Systolic Heart Failure- EF 20% -Last Echo (06/10) EF <15-20% -c/w Coreg 9.375mg PO -increased lisinopril [address] Schultz -continue lasix 20 mg PO bid -Increased Aldactone 12.5mg PO BID ordered Dr Schultz -Monitor I/O's. -Dr. Mcdaniel will continue care into outpatient care, will manage per their recommendations. #Acute Kidney Injury-Improving/stable -Nephrology recommendations Dr Schultz aware about dispo # Anemia, Acute s/p PRBC and I.V. Venofer improving -Hg 10.2 -FOBT x 3 negative during admission # Peripheral Vascular Disease- s/p Left lower leg revascularization -Revascularization completed at [facility]. -Monitor pedal pulses daily # Diabetes Mellitus Type 2-Improving -Levemir 6 units daily. -Continue insulin coverage regular 30 mins before meals. -F/U fasting glucose #Hypertension -c/w current management -Coreg 9.375mg Q12 # Hyperlipidemia -Continue home meds: atorvastatin # Depression-Improving -Patient feel more animated. -Sertraline 50 mg PO daily. # Hypokalemia-Resolved -Asymptomatic # DVT prophylaxis -Levonox 40 mg sc daily. <Delia Matias - Last Filed: 06/19/17 08:26> Objective - Vital Signs/Intake and Output Vital Signs (last 24 hours): Temp Pulse Resp BP Pulse Ox 98.1 F 82 20 133/70 98 06/18/17 16:53 06/19/17 08:10 06/18/17 16:53 06/19/17 08:11 06/18/17 16:53 - Medications Medications: Current Medications Acetaminophen (Tylenol 325mg Tab) 650 mg PO Q6 PRN PRN Reason: Pain, moderate (4-7) Last Admin: 06/13/17 21:28 Dose: 650 mg Acetaminophen (Tylenol 325mg Tab) 650 mg PO Q4 PRN PRN Reason: Pain, Mild (1-3) Aspirin (Aspirin Chewable) 81 mg PO DAILY [facility] Last Admin: 06/19/17 08:10 Dose: 81 mg Atorvastatin Calcium (Lipitor) 40 mg PO HS [facility] Last Admin: 06/18/17 21:36 Dose: 40 mg Carvedilol (Coreg) 12.5 mg PO Q12 [facility] Last Admin: 06/19/17 08:10 Dose: 12.5 mg Clopidogrel Bisulfate (Plavix) 75 mg PO DAILY [facility] Last Admin: 06/19/17 08:10 Dose: 75 mg Collagenase (Santyl) 1 applic TOP DAILY [facility] Last Admin: 06/19/17 08:10 Dose: 1 applic Dextrose (Dextrose 50% Inj) 0 ml IV STAT PRN; Protocol PRN Reason: Hyglycemia Protocol Dextrose (Glutose 15) 0 gm PO ONCE PRN; Protocol PRN Reason: Hypoglycemia Protocol Enoxaparin Sodium (Lovenox) 40 mg SC DAILY [facility] PRN Reason: Protocol Last Admin: 06/19/17 08:09 Dose: 40 mg Furosemide (Lasix) 20 mg PO BID [facility] Last Admin: 06/19/17 08:11 Dose: 20 mg Glucagon (Glucagen Diagnostic Kit) 0 mg IM STAT PRN; Protocol PRN Reason: Hypoglycemia Protocol Insulin Detemir (Levemir) 10 units SC HS [facility] Last Admin: 06/18/17 21:36 Dose: 10 units Insulin Human Regular (Humulin R) 0 units SC [facility] PRN Reason: Protocol Last Admin: 06/19/17 07:31 Dose: Not Given Lidocaine (Lidoderm) 2 ea TD DAILY [facility] Last Admin: 06/19/17 08:11 Dose: 2 ea Lisinopril (Zestril) 40 mg PO DAILY@0900 [facility] Last Admin: 06/19/17 08:10 Dose: 40 mg Saccharomyces Boulardii (Florastor) 250 mg PO BID [facility] Last Admin: 06/19/17 08:09 Dose: 250 mg Sertraline HCl (Zoloft) 50 mg PO HS [facility] Last Admin: 06/18/17 21:37 Dose: 50 mg Spironolactone (Aldactone) 12.5 mg PO BID [facility] Last Admin: 06/19/17 08:09 Dose: 12.5 mg Tramadol HCl (Ultram) 50 mg PO Q6 PRN PRN Reason: Pain, moderate (4-7) Last Admin: 06/18/17 21:40 Dose: 50 mg - Labs Labs: 06/16/17 11:35 06/16/17 11:35 PT 12.7 Seconds (9.8-13.1) 06/08/17 05:00 INR 1.2 (0.9-1.2) 06/08/17 05:00 APTT 26.5 Seconds (25.6-37.1) D 06/08/17 05:00 - Skin Additional comments: ADDENDUM ATTENDING NOTE PATIENT SEEN AND EXAMINED. CASE DISCUSSED WITH RESIDENT. AGREE WITH FINDINGS AND PLAN.
--- NOTE | 2017-06-18 17:56 | CP.PCM.PN ---
Objective - Vital Signs/Intake and Output Vital Signs (last 24 hours): Temp Pulse Resp BP Pulse Ox 98.1 F 72 20 126/62 98 06/18/17 16:53 06/18/17 16:53 06/18/17 16:53 06/18/17 17:05 06/18/17 16:53 - Medications Medications: Current Medications Acetaminophen (Tylenol 325mg Tab) 650 mg PO Q6 PRN PRN Reason: Pain, moderate (4-7) Last Admin: 06/13/17 21:28 Dose: 650 mg Acetaminophen (Tylenol 325mg Tab) 650 mg PO Q4 PRN PRN Reason: Pain, Mild (1-3) Aspirin (Aspirin Chewable) 81 mg PO DAILY [facility] Last Admin: 06/18/17 08:45 Dose: 81 mg Atorvastatin Calcium (Lipitor) 40 mg PO HS [facility] Last Admin: 06/17/17 21:35 Dose: 40 mg Carvedilol (Coreg) 12.5 mg PO Q12 [facility] Last Admin: 06/18/17 08:44 Dose: 12.5 mg Clopidogrel Bisulfate (Plavix) 75 mg PO DAILY [facility] Last Admin: 06/18/17 08:44 Dose: 75 mg Collagenase (Santyl) 1 applic TOP DAILY [facility] Last Admin: 06/18/17 08:46 Dose: 1 applic Dextrose (Dextrose 50% Inj) 0 ml IV STAT PRN; Protocol PRN Reason: Hyglycemia Protocol Dextrose (Glutose 15) 0 gm PO ONCE PRN; Protocol PRN Reason: Hypoglycemia Protocol Enoxaparin Sodium (Lovenox) 40 mg SC DAILY [facility] PRN Reason: Protocol Furosemide (Lasix) 20 mg PO BID [facility] Last Admin: 06/18/17 17:05 Dose: 20 mg Glucagon (Glucagen Diagnostic Kit) 0 mg IM STAT PRN; Protocol PRN Reason: Hypoglycemia Protocol Insulin Detemir (Levemir) 10 units SC HS [facility] Insulin Human Regular (Humulin R) 0 units SC ACHS [facility] PRN Reason: Protocol Last Admin: 06/18/17 17:04 Dose: 2 unit Lidocaine (Lidoderm) 2 ea TD DAILY [facility] Last Admin: 06/18/17 08:45 Dose: 2 ea Lisinopril (Zestril) 40 mg PO DAILY@0900 [facility] Last Admin: 06/18/17 08:43 Dose: 40 mg Saccharomyces Boulardii (Florastor) 250 mg PO BID [facility] Last Admin: 06/18/17 17:03 Dose: 250 mg Sertraline HCl (Zoloft) 50 mg PO HS [facility] Last Admin: 06/17/17 21:35 Dose: 50 mg Spironolactone (Aldactone) 12.5 mg PO BID [facility] Last Admin: 06/18/17 17:03 Dose: 12.5 mg Tramadol HCl (Ultram) 50 mg PO Q6 PRN PRN Reason: Pain, moderate (4-7) Last Admin: 06/18/17 03:13 Dose: 50 mg - Labs Labs: 06/16/17 11:35 06/16/17 11:35 PT 12.7 Seconds (9.8-13.1) 06/08/17 05:00 INR 1.2 (0.9-1.2) 06/08/17 05:00 APTT 26.5 Seconds (25.6-37.1) D 06/08/17 05:00 Assessment and Plan (1) Acute renal failure Status: Resolved (2) Cardiomyopathy, dilated Status: Acute (3) PVD (peripheral vascular disease) Status: Chronic (4) HTN (hypertension) Status: Chronic (5) CKD (chronic kidney disease) Status: Chronic (6) Anemia Status: Acute
[2017-06-18] MEDS: Insulin Detemir 100 Units/ml Inj SC SCH (21:36)
--- NOTE | 2017-06-19 03:29 | CP.PCM.PN ---
Subjective - Date & Time of Evaluation Date of Evaluation: 06/18/17 Time of Evaluation: 19:35 - Subjective Subjective: feeling fine , denies any complaints wants to go home had lengthy discussion with son regarding her history as baseline she was very active and then had an episode of chest discomfort about 2-3 weeks ago subsequent to which she started having sweliling of her LE history strongly suggestive of recent NM Objective - Vital Signs/Intake and Output Vital Signs (last 24 hours): Temp Pulse Resp BP Pulse Ox 98.1 F 79 20 146/72 98 06/18/17 16:53 06/18/17 21:37 06/18/17 16:53 06/18/17 21:37 06/18/17 16:53 - Medications Medications: Current Medications Acetaminophen (Tylenol 325mg Tab) 650 mg PO Q6 PRN PRN Reason: Pain, moderate (4-7) Last Admin: 06/13/17 21:28 Dose: 650 mg Acetaminophen (Tylenol 325mg Tab) 650 mg PO Q4 PRN PRN Reason: Pain, Mild (1-3) Aspirin (Aspirin Chewable) 81 mg PO DAILY [facility] Last Admin: 06/18/17 08:45 Dose: 81 mg Atorvastatin Calcium (Lipitor) 40 mg PO HS [facility] Last Admin: 06/18/17 21:36 Dose: 40 mg Carvedilol (Coreg) 12.5 mg PO Q12 [facility] Last Admin: 06/18/17 21:37 Dose: 12.5 mg Clopidogrel Bisulfate (Plavix) 75 mg PO DAILY [facility] Last Admin: 06/18/17 08:44 Dose: 75 mg Collagenase (Santyl) 1 applic TOP DAILY [facility] Last Admin: 06/18/17 08:46 Dose: 1 applic Dextrose (Dextrose 50% Inj) 0 ml IV STAT PRN; Protocol PRN Reason: Hyglycemia Protocol Dextrose (Glutose 15) 0 gm PO ONCE PRN; Protocol PRN Reason: Hypoglycemia Protocol Enoxaparin Sodium (Lovenox) 40 mg SC DAILY [facility] PRN Reason: Protocol Furosemide (Lasix) 20 mg PO BID [facility] Last Admin: 06/18/17 17:05 Dose: 20 mg Glucagon (Glucagen Diagnostic Kit) 0 mg IM STAT PRN; Protocol PRN Reason: Hypoglycemia Protocol Insulin Detemir (Levemir) 10 units SC [facility] Last Admin: 06/18/17 21:36 Dose: 10 units Insulin Human Regular (Humulin R) 0 units SC ACHS [facility] PRN Reason: Protocol Last Admin: 06/18/17 22:03 Dose: Not Given Lidocaine (Lidoderm) 2 ea TD DAILY [facility] Last Admin: 06/18/17 08:45 Dose: 2 ea Lisinopril (Zestril) 40 mg PO DAILY@0900 [facility] Last Admin: 06/18/17 08:43 Dose: 40 mg Saccharomyces Boulardii (Florastor) 250 mg PO BID [facility] Last Admin: 06/18/17 17:03 Dose: 250 mg Sertraline HCl (Zoloft) 50 mg PO HS [facility] Last Admin: 06/18/17 21:37 Dose: 50 mg Spironolactone (Aldactone) 12.5 mg PO BID [facility] Last Admin: 06/18/17 17:03 Dose: 12.5 mg Tramadol HCl (Ultram) 50 mg PO Q6 PRN PRN Reason: Pain, moderate (4-7) Last Admin: 06/18/17 21:40 Dose: 50 mg - Labs Labs: 06/16/17 11:35 06/16/17 11:35 PT 12.7 Seconds (9.8-13.1) 06/08/17 05:00 INR 1.2 (0.9-1.2) 06/08/17 05:00 APTT 26.5 Seconds (25.6-37.1) D 06/08/17 05:00 - Constitutional Appears: Well - Head Exam Head Exam: ATRAUMATIC, NORMAL INSPECTION, NORMOCEPHALIC - Eye Exam Eye Exam: EOMI, Normal appearance, PERRL Pupil Exam: NORMAL ACCOMODATION, PERRL - ENT Exam ENT Exam: Mucous Membranes Moist, Normal Exam - Neck Exam Neck Exam: Full ROM, Normal Inspection. absent: Lymphadenopathy - Respiratory Exam Respiratory Exam: Clear to Ausculation Bilateral, NORMAL BREATHING PATTERN - Cardiovascular Exam Cardiovascular Exam: REGULAR RHYTHM, +S1, +S2, Murmur - GI/Abdominal Exam GI & Abdominal Exam: Soft, Normal Bowel Sounds. absent: Tenderness - Extremities Exam Extremities Exam: Full ROM, Normal Capillary Refill, Normal Inspection. absent : Joint Swelling, Pedal Edema - Back Exam Back Exam: NORMAL INSPECTION - Neurological Exam Neurological Exam: Alert, Awake, CN II-XII Intact, Normal Gait, Oriented x3 - Psychiatric Exam Psychiatric exam: Normal Affect, Normal Mood - Skin Skin Exam: Dry, Intact, Normal Color, Warm Assessment and Plan (1) Systolic and diastolic CHF, acute on chronic Assessment & Plan: etiology based on hx obtaine via son most likely ischemic compensated and euvolemic on RAAS modulators and aldactone Status: Acute (2) Cardiomyopathy, dilated Assessment & Plan: will need ischemic evaluation and delineation of her coronary anatomy prior to AICD both can be arranged as outpt Status: Acute (3) CAD (coronary artery disease) Assessment & Plan: on DAPT on BB Status: Acute (4) PVD (peripheral vascular disease) Assessment & Plan: on DAPT recent PVI Status: Chronic (5) Volume overload Status: Acute (6) CKD (chronic kidney disease) Status: Chronic (7) Dyslipidemia Status: Chronic
[2017-06-19] MEDS: Insulin Regular 100 units/ml SC SCH ×4 (07:31→22:00)
[2017-06-19] MEDS: Saccharomyces Boulardi 250 mg Cap PO SCH ×2 (08:09→16:09)
[2017-06-19] MEDS: Enoxaparin 40 mg Syringe SC SCH (08:09)
[2017-06-19] MEDS: Santyl Collagenase OINTMENT TOP SCH (08:10)
[2017-06-19] MEDS: Lidocaine 5% Patch TD SCH (08:11)
--- NOTE | 2017-06-19 11:05 | CP.PCM.PN ---
<Satish Farr - Last Filed: 06/19/17 11:01> Subjective - Date & Time of Evaluation Date of Evaluation: 06/19/17 Time of Evaluation: 10:02 - Subjective Subjective: Patient seen and examined morning at bedside, no overnight events, reports feeling fine, mild pain on her L foot controlled with meds, slept well through night, states good appetite. Denies dizziness, palpitations, sob, chest pain, or swelling of legs. She feels comfortable during PT though continues to have dyspnea after 1 flight of stairs. Objective - Vital Signs/Intake and Output Vital Signs (last 24 hours): Temp Pulse Resp BP Pulse Ox 97.9 F 60 20 115/55 L 100 06/19/17 08:34 06/19/17 10:15 06/19/17 08:34 06/19/17 10:15 06/19/17 08:34 - Medications Medications: Current Medications Acetaminophen (Tylenol 325mg Tab) 650 mg PO Q6 PRN PRN Reason: Pain, moderate (4-7) Last Admin: 06/13/17 21:28 Dose: 650 mg Acetaminophen (Tylenol 325mg Tab) 650 mg PO Q4 PRN PRN Reason: Pain, Mild (1-3) Aspirin (Aspirin Chewable) 81 mg PO DAILY [facility] Last Admin: 06/19/17 08:10 Dose: 81 mg Atorvastatin Calcium (Lipitor) 40 mg PO HS [facility] Last Admin: 06/18/17 21:36 Dose: 40 mg Carvedilol (Coreg) 12.5 mg PO Q12 [facility] Last Admin: 06/19/17 08:10 Dose: 12.5 mg Clopidogrel Bisulfate (Plavix) 75 mg PO DAILY [facility] Last Admin: 06/19/17 08:10 Dose: 75 mg Collagenase (Santyl) 1 applic TOP DAILY [facility] Last Admin: 06/19/17 08:10 Dose: 1 applic Dextrose (Dextrose 50% Inj) 0 ml IV STAT PRN; Protocol PRN Reason: Hyglycemia Protocol Dextrose (Glutose 15) 0 gm PO ONCE PRN; Protocol PRN Reason: Hypoglycemia Protocol Enoxaparin Sodium (Lovenox) 40 mg SC DAILY [facility] PRN Reason: Protocol Last Admin: 06/19/17 08:09 Dose: 40 mg Furosemide (Lasix) 20 mg PO BID [facility] Last Admin: 06/19/17 08:11 Dose: 20 mg Glucagon (Glucagen Diagnostic Kit) 0 mg IM STAT PRN; Protocol PRN Reason: Hypoglycemia Protocol Insulin Detemir (Levemir) 10 units SC [facility] Last Admin: 06/18/17 21:36 Dose: 10 units Insulin Human Regular (Humulin R) 0 units SC [facility] PRN Reason: Protocol Last Admin: 06/19/17 07:31 Dose: Not Given Lidocaine (Lidoderm) 2 ea TD DAILY [facility] Last Admin: 06/19/17 08:11 Dose: 2 ea Lisinopril (Zestril) 40 mg PO DAILY@0900 [facility] Last Admin: 06/19/17 08:10 Dose: 40 mg Saccharomyces Boulardii (Florastor) 250 mg PO BID [facility] Last Admin: 06/19/17 08:09 Dose: 250 mg Sertraline HCl (Zoloft) 50 mg PO [facility] Last Admin: 06/18/17 21:37 Dose: 50 mg Spironolactone (Aldactone) 12.5 mg PO BID [facility] Last Admin: 06/19/17 08:09 Dose: 12.5 mg Tramadol HCl (Ultram) 50 mg PO Q6 PRN PRN Reason: Pain, moderate (4-7) Last Admin: 06/18/17 21:40 Dose: 50 mg - Labs Labs: 06/16/17 11:35 06/16/17 11:35 PT 12.7 Seconds (9.8-13.1) 06/08/17 05:00 INR 1.2 (0.9-1.2) 06/08/17 05:00 APTT 26.5 Seconds (25.6-37.1) D 06/08/17 05:00 - Constitutional Appears: Well, Non-toxic, No Acute Distress - Head Exam Head Exam: ATRAUMATIC, NORMAL INSPECTION, NORMOCEPHALIC - Eye Exam Eye Exam: Normal appearance - Neck Exam Neck Exam: Normal Inspection - Respiratory Exam Respiratory Exam: Clear to Ausculation Bilateral, NORMAL BREATHING PATTERN. absent: Decreased Breath Sounds, Rhonchi, Wheezes - Cardiovascular Exam Cardiovascular Exam: RRR, +S1, +S2 - GI/Abdominal Exam GI & Abdominal Exam: Soft, Normal Bowel Sounds. absent: Tenderness - Extremities Exam Extremities Exam: absent: Calf Tenderness, Pedal Edema Additional comments: L foot dressing clean, mild swelling of L toe. - Back Exam Back Exam: NORMAL INSPECTION - Neurological Exam Neurological Exam: Alert, Awake, Oriented x3 - Psychiatric Exam Psychiatric exam: Normal Affect, Normal Mood - Skin Skin Exam: Dry, Intact, Normal Color, Warm Assessment and Plan - Assessment and Plan (Free Text) Assessment: 66 y/o female with hx of PVD admitted for osteomyelitis POD 10 Partial resection of 1st metatarsal L foot. Complicated by findings of new-onset heart failure and NAI. Progressing well though not safe to discharge yet due to safety concerns at home regarding therapy progress. #Osteomyelitis, Acute -Partial resection of 1st metatarsal L foot completed in OR by Podiatry (06/08) . -Cleared for podiatry and F/U on 06/23/[address] Reynoso. -c/w Tramadol and lidocaine patch for pain. -PT evaluation: [facility] recommended. -Enable to perform PT patient d/c is pending PT progression as she is not a safe d/c to home at this time. -Encouraged OOB #Acute Decompensated Systolic Heart Failure- EF 20% -Last Echo (06/10) EF <15-20% -Coreg 9.375mg PO -Lisinopril 40 mg daily -continue lasix 20 mg PO bid -Increased Aldactone 12.5mg PO BID ordered Dr Schultz -Monitor I/O's. -Dr. Mcdaniel will continue care into outpatient care, will manage per their recommendations. will need cath/eval for AICD placement as outpatient. #Acute Kidney Injury-Resolved -Nephrology recommendations Dr Schultz appreciated # Anemia, Acute s/p PRBC and I.V. Venofer improving -Last Hgb 10.2 -FOBT x 3 negative during admission # Peripheral Vascular Disease- s/p Left lower leg revascularization -Revascularization completed at [place]. -Monitor pedal pulses daily # Diabetes Mellitus Type 2-Improving -Levemir 10 units daily. -Continue insulin coverage regular 30 mins before meals. -F/U accuchecks #Hypertension -c/w current management -Coreg 9.375mg Q12 # Hyperlipidemia -Continue home meds: atorvastatin # Depression-Improving -Patient feel more animated. -Sertraline 50 mg PO daily. # DVT prophylaxis -Levonox 40 mg sc daily. <Delia Matias - Last Filed: 06/20/17 09:05> Objective - Vital Signs/Intake and Output Vital Signs (last 24 hours): Temp Pulse Resp BP Pulse Ox 98.2 F 81 20 135/65 96 06/20/17 08:41 06/20/17 08:41 06/20/17 08:41 06/20/17 08:41 06/20/17 08:41 - Medications Medications: Current Medications Acetaminophen (Tylenol 325mg Tab) 650 mg PO Q6 PRN PRN Reason: Pain, moderate (4-7) Last Admin: 06/13/17 21:28 Dose: 650 mg Acetaminophen (Tylenol 325mg Tab) 650 mg PO Q4 PRN PRN Reason: Pain, Mild (1-3) Aspirin (Aspirin Chewable) 81 mg PO DAILY [facility] Last Admin: 06/20/17 08:19 Dose: 81 mg Atorvastatin Calcium (Lipitor) 40 mg PO HS [facility] Last Admin: 06/19/17 21:06 Dose: 40 mg Carvedilol (Coreg) 12.5 mg PO Q12 [facility] Last Admin: 06/20/17 08:17 Dose: 12.5 mg Clopidogrel Bisulfate (Plavix) 75 mg PO DAILY [facility] Last Admin: 06/20/17 08:17 Dose: 75 mg Collagenase (Santyl) 1 applic TOP DAILY [facility] Last Admin: 06/20/17 08:20 Dose: 1 applic Dextrose (Dextrose 50% Inj) 0 ml IV STAT PRN; Protocol PRN Reason: Hyglycemia Protocol Dextrose (Glutose 15) 0 gm PO ONCE PRN; Protocol PRN Reason: Hypoglycemia Protocol Enoxaparin Sodium (Lovenox) 40 mg SC DAILY [facility] PRN Reason: Protocol Last Admin: 06/20/17 08:16 Dose: 40 mg Furosemide (Lasix) 20 mg PO BID [facility] Last Admin: 06/20/17 08:17 Dose: 20 mg Glucagon (Glucagen Diagnostic Kit) 0 mg IM STAT PRN; Protocol PRN Reason: Hypoglycemia Protocol Insulin Detemir (Levemir) 10 units SC [facility] Last Admin: 06/19/17 22:54 Dose: 10 units Insulin Human Regular (Humulin R) 0 units SC [facility] PRN Reason: Protocol Last Admin: 06/20/17 08:19 Dose: Not Given Lidocaine (Lidoderm) 2 ea TD DAILY [facility] Last Admin: 06/20/17 08:20 Dose: 2 ea Lisinopril (Zestril) 40 mg PO DAILY@0900 [facility] Last Admin: 06/20/17 08:17 Dose: 40 mg Saccharomyces Boulardii (Florastor) 250 mg PO BID [facility] Last Admin: 06/20/17 08:17 Dose: 250 mg Sertraline HCl (Zoloft) 50 mg PO HS [facility] Last Admin: 06/19/17 21:06 Dose: 50 mg Spironolactone (Aldactone) 12.5 mg PO BID [facility] Last Admin: 06/20/17 08:17 Dose: 12.5 mg Tramadol HCl (Ultram) 50 mg PO Q6 PRN PRN Reason: Pain, moderate (4-7) Last Admin: 06/19/17 21:06 Dose: 50 mg - Labs Labs: 06/16/17 11:35 06/16/17 11:35 PT 12.7 Seconds (9.8-13.1) 06/08/17 05:00 INR 1.2 (0.9-1.2) 06/08/17 05:00 APTT 26.5 Seconds (25.6-37.1) D 06/08/17 05:00 - Skin Additional comments: ADDENDUM ATTENDING NOTE PATIENT SEEN AND EXAMINED BY ME. CASE DISCUSSED WITH RESIDENT. AGREE WITH FINDINGS AND PLAN.
--- NOTE | 2017-06-19 14:00 | CP.PCM.PN ---
Subjective - Date & Time of Evaluation Date of Evaluation: 06/19/17 Time of Evaluation: 12:15 - Subjective Subjective: 66 year old female seen at bedside with attending Dr. Reynoso 11 days s/p partial resection of distal left 1st metatarsal, partial resection of base of proximal phalanx, excision of left tibial sesamoid and debridement of ulcers. Pt reports no pain to surgical site at this time. Patient states that she has only been able to walk more and more with each day and has been using her surgical shoe when moving. She denies and acute overnight events. She denies recent F/N/V/C/ SOB/CP today. Objective - Vital Signs/Intake and Output Vital Signs (last 24 hours): Temp Pulse Resp BP Pulse Ox 97.9 F 60 20 115/55 L 100 06/19/17 08:34 06/19/17 10:15 06/19/17 08:34 06/19/17 10:15 06/19/17 08:34 - Medications Medications: Current Medications Acetaminophen (Tylenol 325mg Tab) 650 mg PO Q6 PRN PRN Reason: Pain, moderate (4-7) Last Admin: 06/13/17 21:28 Dose: 650 mg Acetaminophen (Tylenol 325mg Tab) 650 mg PO Q4 PRN PRN Reason: Pain, Mild (1-3) Aspirin (Aspirin Chewable) 81 mg PO DAILY [facility] Last Admin: 06/19/17 08:10 Dose: 81 mg Atorvastatin Calcium (Lipitor) 40 mg PO HS [facility] Last Admin: 06/18/17 21:36 Dose: 40 mg Carvedilol (Coreg) 12.5 mg PO Q12 [facility] Last Admin: 06/19/17 08:10 Dose: 12.5 mg Clopidogrel Bisulfate (Plavix) 75 mg PO DAILY [facility] Last Admin: 06/19/17 08:10 Dose: 75 mg Collagenase (Santyl) 1 applic TOP DAILY [facility] Last Admin: 06/19/17 08:10 Dose: 1 applic Dextrose (Dextrose 50% Inj) 0 ml IV STAT PRN; Protocol PRN Reason: Hyglycemia Protocol Dextrose (Glutose 15) 0 gm PO ONCE PRN; Protocol PRN Reason: Hypoglycemia Protocol Enoxaparin Sodium (Lovenox) 40 mg SC DAILY [facility] PRN Reason: Protocol Last Admin: 06/19/17 08:09 Dose: 40 mg Furosemide (Lasix) 20 mg PO BID [facility] Last Admin: 06/19/17 08:11 Dose: 20 mg Glucagon (Glucagen Diagnostic Kit) 0 mg IM STAT PRN; Protocol PRN Reason: Hypoglycemia Protocol Insulin Detemir (Levemir) 10 units SC HS [facility] Last Admin: 06/18/17 21:36 Dose: 10 units Insulin Human Regular (Humulin R) 0 units SC [facility] PRN Reason: Protocol Last Admin: 06/19/17 11:38 Dose: Not Given Lidocaine (Lidoderm) 2 ea TD DAILY [facility] Last Admin: 06/19/17 08:11 Dose: 2 ea Lisinopril (Zestril) 40 mg PO DAILY@0900 [facility] Last Admin: 06/19/17 08:10 Dose: 40 mg Saccharomyces Boulardii (Florastor) 250 mg PO BID [facility] Last Admin: 06/19/17 08:09 Dose: 250 mg Sertraline HCl (Zoloft) 50 mg PO [facility] Last Admin: 06/18/17 21:37 Dose: 50 mg Spironolactone (Aldactone) 12.5 mg PO BID [facility] Last Admin: 06/19/17 08:09 Dose: 12.5 mg Tramadol HCl (Ultram) 50 mg PO Q6 PRN PRN Reason: Pain, moderate (4-7) Last Admin: 06/18/17 21:40 Dose: 50 mg - Labs Labs: 06/16/17 11:35 06/16/17 11:35 PT 12.7 Seconds (9.8-13.1) 06/08/17 05:00 INR 1.2 (0.9-1.2) 06/08/17 05:00 APTT 26.5 Seconds (25.6-37.1) D 06/08/17 05:00 - Constitutional Appears: Well, Non-toxic, No Acute Distress - Extremities Exam Additional comments: LLE focused examination: Dressing was clean, dry and intact Vasc: DP/PT pulses palpable. CFT < 4 seconds x10, temperature gradient WNL. Decreased edema noted to patient's left foot consistent with surgical procedure Derm: Surgical site noted to be well coapted with no signs of dehiscence and all sutures intact, no periwound erythema, malodor, drainage or other clinical signs of infection. Ulcer site to left digit is nonerythematous with no drainage , malodor or other clinical signs of infection at this time. Necrotic eschar noted overlying ulceration site at left first metatarsal head level, dawna-wound maceration noted Neuro: Epicritic and protective sensation grossly intact MSK: No pain with palpation near surgical site - Neurological Exam Neurological Exam: Alert, Awake, Oriented x3 - Psychiatric Exam Psychiatric exam: Normal Affect, Normal Mood Assessment and Plan - Assessment and Plan (Free Text) Assessment: 66 year old female 11 days s/p left foot partial exostectomy first metatarsal, partial exostectomy proximal phalanx base, excision tibial sesamoid secondary to OM Plan: Patient seen and evaluated at bedside Charts, labs and vitals reviewed; absent leukocytosis. Afebrile Dressing of batadine soaked gauze, DSD applied to surgical site. Pt to be full weightbearing with use of post-op shoe to left foot. Pt to continue PT until stable enough to be DC'd home Patient stable from podiatry standpoint Podiatry will continue to follow while in house Upon DC patient will follow up with Dr. Reynoso in wound care center
[2017-06-19] MEDS: Insulin Detemir 100 Units/ml Inj SC SCH (22:54)
[2017-06-20] MEDS: Enoxaparin 40 mg Syringe SC SCH (08:16)
[2017-06-20] MEDS: Saccharomyces Boulardi 250 mg Cap PO SCH ×2 (08:17→16:25)
[2017-06-20] MEDS: Insulin Regular 100 units/ml SC SCH ×4 (08:19→21:37)
[2017-06-20] MEDS: Santyl Collagenase OINTMENT TOP SCH (08:20)
[2017-06-20] MEDS: Lidocaine 5% Patch TD SCH (08:20)
--- NOTE | 2017-06-20 12:40 | CP.PCM.PN ---
<D[place]Wen - Last Filed: 06/20/17 13:14> Subjective - Date & Time of Evaluation Date of Evaluation: 06/20/17 Time of Evaluation: 08:25 - Subjective Subjective: Patient seen and examined morning at bedside, no overnight events, reports feeling well, mild pain on her L foot controlled with meds, states good appetite , slept well through night. Denies dizziness, palpitations, sob, chest pain, or swelling of legs. She feels comfortable during PT though continues to have dyspnea and dizziness after 1 flight of stairs. Objective - Vital Signs/Intake and Output Vital Signs (last 24 hours): Temp Pulse Resp BP Pulse Ox 98.2 F 81 20 135/65 96 06/20/17 08:41 06/20/17 08:41 06/20/17 08:41 06/20/17 08:41 06/20/17 08:41 - Medications Medications: Current Medications Acetaminophen (Tylenol 325mg Tab) 650 mg PO Q6 PRN PRN Reason: Pain, moderate (4-7) Last Admin: 06/13/17 21:28 Dose: 650 mg Acetaminophen (Tylenol 325mg Tab) 650 mg PO Q4 PRN PRN Reason: Pain, Mild (1-3) Aspirin (Aspirin Chewable) 81 mg PO DAILY [facility] Last Admin: 06/20/17 08:19 Dose: 81 mg Atorvastatin Calcium (Lipitor) 40 mg PO HS [facility] Last Admin: 06/19/17 21:06 Dose: 40 mg Carvedilol (Coreg) 12.5 mg PO Q12 [facility] Last Admin: 06/20/17 08:17 Dose: 12.5 mg Clopidogrel Bisulfate (Plavix) 75 mg PO DAILY [facility] Last Admin: 06/20/17 08:17 Dose: 75 mg Collagenase (Santyl) 1 applic TOP DAILY [facility] Last Admin: 06/20/17 08:20 Dose: 1 applic Dextrose (Dextrose 50% Inj) 0 ml IV STAT PRN; Protocol PRN Reason: Hyglycemia Protocol Dextrose (Glutose 15) 0 gm PO ONCE PRN; Protocol PRN Reason: Hypoglycemia Protocol Enoxaparin Sodium (Lovenox) 40 mg SC DAILY [facility] PRN Reason: Protocol Last Admin: 06/20/17 08:16 Dose: 40 mg Furosemide (Lasix) 20 mg PO BID [facility] Last Admin: 06/20/17 08:17 Dose: 20 mg Glucagon (Glucagen Diagnostic Kit) 0 mg IM STAT PRN; Protocol PRN Reason: Hypoglycemia Protocol Insulin Detemir (Levemir) 10 units SC [facility] Last Admin: 06/19/17 22:54 Dose: 10 units Insulin Human Regular (Humulin R) 0 units SC [facility] PRN Reason: Protocol Last Admin: 06/20/17 11:58 Dose: 1 unit Lidocaine (Lidoderm) 2 ea TD DAILY [facility] Last Admin: 06/20/17 08:20 Dose: 2 ea Lisinopril (Zestril) 40 mg PO DAILY@0900 [facility] Last Admin: 06/20/17 08:17 Dose: 40 mg Saccharomyces Boulardii (Florastor) 250 mg PO BID [facility] Last Admin: 06/20/17 08:17 Dose: 250 mg Sertraline HCl (Zoloft) 50 mg PO [facility] Last Admin: 06/19/17 21:06 Dose: 50 mg Spironolactone (Aldactone) 12.5 mg PO BID [facility] Last Admin: 06/20/17 08:17 Dose: 12.5 mg Tramadol HCl (Ultram) 50 mg PO Q6 PRN PRN Reason: Pain, moderate (4-7) Last Admin: 06/19/17 21:06 Dose: 50 mg - Labs Labs: 06/16/17 11:35 06/16/17 11:35 PT 12.7 Seconds (9.8-13.1) 06/08/17 05:00 INR 1.2 (0.9-1.2) 06/08/17 05:00 APTT 26.5 Seconds (25.6-37.1) D 06/08/17 05:00 - Constitutional Appears: Well, No Acute Distress - Head Exam Head Exam: ATRAUMATIC, NORMOCEPHALIC - Eye Exam Eye Exam: EOMI, Normal appearance, PERRL. absent: Nystagmus - ENT Exam ENT Exam: Mucous Membranes Moist - Neck Exam Neck Exam: Full ROM - Respiratory Exam Respiratory Exam: Clear to Ausculation Bilateral, NORMAL BREATHING PATTERN - Cardiovascular Exam Cardiovascular Exam: REGULAR RHYTHM, +S1, +S2. absent: Murmur - GI/Abdominal Exam GI & Abdominal Exam: Soft, Normal Bowel Sounds. absent: Tenderness, Organomegaly - Extremities Exam Extremities Exam: Full ROM Additional comments: L foot wound looks clean, no infection signs, mild swelling of L toe. - Back Exam Back Exam: NORMAL INSPECTION. absent: vertebral tenderness - Neurological Exam Neurological Exam: Alert, Awake, CN II-XII Intact, Oriented x3 - Psychiatric Exam Psychiatric exam: Normal Mood - Skin Skin Exam: Dry, Normal Color, Warm Assessment and Plan - Assessment and Plan (Free Text) Assessment: 66 y/o female with hx of PVD admitted for osteomyelitis POD 10 Partial resection of 1st metatarsal L foot. Complicated by findings of new-onset heart failure and NAI. Progressing well though not safe to discharge yet due to safety concerns at home regarding therapy progress. #Osteomyelitis, Acute -Partial resection of 1st metatarsal L foot completed in OR by Podiatry (06/08) . -Cleared for podiatry and F/U on 06/23/[address] Reynoso. -c/w Tramadol and lidocaine patch for pain. -PT evaluation: [facility]ON[facility] recommended. -Enable to perform PT patient d/c is pending PT progression as she is not a safe d/c to home at this time. -Encouraged OOB #Acute Decompensated Systolic Heart Failure- EF 20% -Last Echo (06/10) EF <15-20% -Coreg 9.375mg PO -Lisinopril 40 mg daily -continue lasix 20 mg PO bid -Increased Aldactone 12.5mg PO BID ordered Dr Schultz -Monitor I/O's. -Dr. Mcdaniel will continue care into outpatient care, will manage per their recommendations. will need cath/eval for AICD placement as outpatient. #Acute Kidney Injury-Resolved -Nephrology recommendations Dr Schultz appreciated # Anemia, Acute s/p PRBC and I.V. Venofer improving -Last Hgb 10.2 -FOBT x 3 negative during admission # Peripheral Vascular Disease- s/p Left lower leg revascularization -Revascularization completed at [place]. -Monitor pedal pulses daily # Diabetes Mellitus Type 2-Improving -Levemir 10 units daily. -Continue insulin coverage regular 30 mins before meals. -F/U accuchecks #Hypertension -c/w current management -Coreg 9.375mg Q12 # Hyperlipidemia -Continue home meds: atorvastatin # Depression-Improving -Patient feel more animated. -Sertraline 50 mg PO daily. # DVT prophylaxis -Levonox 40 mg sc daily. <Delia Matias - Last Filed: 06/21/17 07:07> Objective - Vital Signs/Intake and Output Vital Signs (last 24 hours): Temp Pulse Resp BP Pulse Ox 98.5 F 67 20 145/77 97 06/21/17 00:05 06/21/17 00:05 06/21/17 00:05 06/21/17 00:05 06/21/17 00:05 - Medications Medications: Current Medications Acetaminophen (Tylenol 325mg Tab) 650 mg PO Q6 PRN PRN Reason: Pain, moderate (4-7) Last Admin: 06/13/17 21:28 Dose: 650 mg Acetaminophen (Tylenol 325mg Tab) 650 mg PO Q4 PRN PRN Reason: Pain, Mild (1-3) Aspirin (Aspirin Chewable) 81 mg PO DAILY [facility] Last Admin: 06/20/17 08:19 Dose: 81 mg Atorvastatin Calcium (Lipitor) 40 mg PO HS [facility] Last Admin: 06/20/17 21:25 Dose: 40 mg Carvedilol (Coreg) 12.5 mg PO Q12 [facility] Last Admin: 06/20/17 21:23 Dose: 12.5 mg Clopidogrel Bisulfate (Plavix) 75 mg PO DAILY [facility] Last Admin: 06/20/17 08:17 Dose: 75 mg Collagenase (Santyl) 1 applic TOP DAILY [facility] Last Admin: 06/20/17 08:20 Dose: 1 applic Dextrose (Dextrose 50% Inj) 0 ml IV STAT PRN; Protocol PRN Reason: Hyglycemia Protocol Dextrose (Glutose 15) 0 gm PO ONCE PRN; Protocol PRN Reason: Hypoglycemia Protocol Enoxaparin Sodium (Lovenox) 40 mg SC DAILY [facility] PRN Reason: Protocol Last Admin: 06/20/17 08:16 Dose: 40 mg Furosemide (Lasix) 20 mg PO BID [facility] Last Admin: 06/20/17 16:25 Dose: 20 mg Glucagon (Glucagen Diagnostic Kit) 0 mg IM STAT PRN; Protocol PRN Reason: Hypoglycemia Protocol Insulin Detemir (Levemir) 10 units SC HS [facility] Last Admin: 06/20/17 21:24 Dose: 10 units Insulin Human Regular (Humulin R) 0 units SC [facility] PRN Reason: Protocol Last Admin: 06/20/17 21:37 Dose: Not Given Lidocaine (Lidoderm) 2 ea TD DAILY [facility] Last Admin: 06/20/17 08:20 Dose: 2 ea Lisinopril (Zestril) 40 mg PO DAILY@0900 [facility] Last Admin: 06/20/17 08:17 Dose: 40 mg Saccharomyces Boulardii (Florastor) 250 mg PO BID [facility] Last Admin: 06/20/17 16:25 Dose: 250 mg Sertraline HCl (Zoloft) 50 mg PO HS [facility] Last Admin: 06/20/17 21:20 Dose: 50 mg Spironolactone (Aldactone) 12.5 mg PO BID [facility] Last Admin: 06/20/17 16:25 Dose: 12.5 mg Tramadol HCl (Ultram) 50 mg PO Q6 PRN PRN Reason: Pain, severe (8-10) Last Admin: 06/20/17 21:19 Dose: 50 mg - Labs Labs: 06/16/17 11:35 06/16/17 11:35 PT 12.7 Seconds (9.8-13.1) 06/08/17 05:00 INR 1.2 (0.9-1.2) 06/08/17 05:00 APTT 26.5 Seconds (25.6-37.1) D 06/08/17 05:00 - Skin Additional comments: ADDENDUM ATTENDING NOTE PATIENT SEEN AND EXAMINED. CASE DISCUSSED WITH RESIDENT. AGREE WITH FINDINGS AND PLAN.
--- NOTE | 2017-06-20 13:02 | CP.PCM.PN ---
Subjective - Date & Time of Evaluation Date of Evaluation: 06/20/17 Time of Evaluation: 11:30 - Subjective Subjective: Podiatry note for Dr. Reynoso 66 year old female seen at bedside with attending Dr. Reynoso 12 days s/p partial resection of distal left 1st metatarsal, partial resection of base of proximal phalanx, excision of left tibial sesamoid and debridement of ulcers. Pt reports no pain to surgical site at this time. Patient states that she has only been able to walk more and more with each day and has been using her surgical shoe when moving. She denies and acute overnight events. She denies recent F/N/V/C/ SOB/CP today. Objective - Vital Signs/Intake and Output Vital Signs (last 24 hours): Temp Pulse Resp BP Pulse Ox 98.2 F 81 20 135/65 96 06/20/17 08:41 06/20/17 08:41 06/20/17 08:41 06/20/17 08:41 06/20/17 08:41 - Medications Medications: Current Medications Acetaminophen (Tylenol 325mg Tab) 650 mg PO Q6 PRN PRN Reason: Pain, moderate (4-7) Last Admin: 06/13/17 21:28 Dose: 650 mg Acetaminophen (Tylenol 325mg Tab) 650 mg PO Q4 PRN PRN Reason: Pain, Mild (1-3) Aspirin (Aspirin Chewable) 81 mg PO DAILY [facility] Last Admin: 06/20/17 08:19 Dose: 81 mg Atorvastatin Calcium (Lipitor) 40 mg PO HS [facility] Last Admin: 06/19/17 21:06 Dose: 40 mg Carvedilol (Coreg) 12.5 mg PO Q12 [facility] Last Admin: 06/20/17 08:17 Dose: 12.5 mg Clopidogrel Bisulfate (Plavix) 75 mg PO DAILY [facility] Last Admin: 06/20/17 08:17 Dose: 75 mg Collagenase (Santyl) 1 applic TOP DAILY [facility] Last Admin: 06/20/17 08:20 Dose: 1 applic Dextrose (Dextrose 50% Inj) 0 ml IV STAT PRN; Protocol PRN Reason: Hyglycemia Protocol Dextrose (Glutose 15) 0 gm PO ONCE PRN; Protocol PRN Reason: Hypoglycemia Protocol Enoxaparin Sodium (Lovenox) 40 mg SC DAILY [facility] PRN Reason: Protocol Last Admin: 06/20/17 08:16 Dose: 40 mg Furosemide (Lasix) 20 mg PO BID [facility] Last Admin: 06/20/17 08:17 Dose: 20 mg Glucagon (Glucagen Diagnostic Kit) 0 mg IM STAT PRN; Protocol PRN Reason: Hypoglycemia Protocol Insulin Detemir (Levemir) 10 units SC HS [facility] Last Admin: 06/19/17 22:54 Dose: 10 units Insulin Human Regular (Humulin R) 0 units SC [facility] PRN Reason: Protocol Last Admin: 06/20/17 11:58 Dose: 1 unit Lidocaine (Lidoderm) 2 ea TD DAILY [facility] Last Admin: 06/20/17 08:20 Dose: 2 ea Lisinopril (Zestril) 40 mg PO DAILY@0900 [facility] Last Admin: 06/20/17 08:17 Dose: 40 mg Saccharomyces Boulardii (Florastor) 250 mg PO BID [facility] Last Admin: 06/20/17 08:17 Dose: 250 mg Sertraline HCl (Zoloft) 50 mg PO HS [facility] Last Admin: 06/19/17 21:06 Dose: 50 mg Spironolactone (Aldactone) 12.5 mg PO BID [facility] Last Admin: 06/20/17 08:17 Dose: 12.5 mg Tramadol HCl (Ultram) 50 mg PO Q6 PRN PRN Reason: Pain, moderate (4-7) Last Admin: 06/19/17 21:06 Dose: 50 mg - Labs Labs: 06/16/17 11:35 06/16/17 11:35 PT 12.7 Seconds (9.8-13.1) 06/08/17 05:00 INR 1.2 (0.9-1.2) 06/08/17 05:00 APTT 26.5 Seconds (25.6-37.1) D 06/08/17 05:00 - Constitutional Appears: Well, Non-toxic, No Acute Distress - Extremities Exam Additional comments: LLE focused examination: Dressing was clean, dry and intact Vasc: DP/PT pulses palpable. CFT < 4 seconds x10, temperature gradient WNL. Decreased edema noted to patient's left foot consistent with surgical procedure Derm: Surgical site noted to be well coapted with no signs of dehiscence and all sutures intact, no periwound erythema, malodor, drainage or other clinical signs of infection. Ulcer site to left digit is nonerythematous with no drainage , malodor or other clinical signs of infection at this time. Necrotic eschar noted overlying ulceration site at left first metatarsal head level, dawna-wound maceration noted - resolving from yesterday Neuro: Epicritic and protective sensation grossly intact MSK: No pain with palpation near surgical site - Neurological Exam Neurological Exam: Alert, Awake, Oriented x3 - Psychiatric Exam Psychiatric exam: Normal Affect, Normal Mood Assessment and Plan - Assessment and Plan (Free Text) Assessment: 66 year old female 12 days s/p left foot partial exostectomy first metatarsal, partial exostectomy proximal phalanx base, excision tibial sesamoid secondary to OM Plan: Patient seen and evaluated at bedside Charts, labs and vitals reviewed; absent leukocytosis. Afebrile Dressing of batadine soaked gauze, DSD applied to surgical site. Pt to be full weightbearing with use of post-op shoe to left foot. Pt to continue PT until stable enough to be DC'd home Patient stable from podiatry standpoint Podiatry will continue to follow while in house Upon DC patient will follow up with Dr. Reynoso in wound care center
[2017-06-20] MEDS: Insulin Detemir 100 Units/ml Inj SC SCH (21:24)
[2017-06-21] MEDS: Insulin Regular 100 units/ml SC SCH ×5 (08:01→22:14)
--- NOTE | 2017-06-21 08:20 | CP.PCM.PN ---
Subjective - Date & Time of Evaluation Date of Evaluation: 06/21/17 Time of Evaluation: 08:18 - Subjective Subjective: Podiatry note for Dr. Reynoso 66 year old female seen at bedside with attending Dr. Reynoso 13 days s/p partial resection of distal left 1st metatarsal, partial resection of base of proximal phalanx, excision of left tibial sesamoid and debridement of ulcers. Pt reports no pain to surgical site at this time. Patient states that she has only been able to walk more and more with each day and has been using her surgical shoe when moving. She denies and acute overnight events. She denies recent F/N/V/C/ SOB/CP today. Objective - Vital Signs/Intake and Output Vital Signs (last 24 hours): Temp Pulse Resp BP Pulse Ox 98.3 F 61 20 138/75 99 06/21/17 07:43 06/21/17 07:43 06/21/17 07:43 06/21/17 07:43 06/21/17 07:43 - Medications Medications: Current Medications Acetaminophen (Tylenol 325mg Tab) 650 mg PO Q6 PRN PRN Reason: Pain, moderate (4-7) Last Admin: 06/13/17 21:28 Dose: 650 mg Acetaminophen (Tylenol 325mg Tab) 650 mg PO Q4 PRN PRN Reason: Pain, Mild (1-3) Aspirin (Aspirin Chewable) 81 mg PO DAILY [facility] Last Admin: 06/20/17 08:19 Dose: 81 mg Atorvastatin Calcium (Lipitor) 40 mg PO HS [facility] Last Admin: 06/20/17 21:25 Dose: 40 mg Carvedilol (Coreg) 12.5 mg PO Q12 [facility] Last Admin: 06/20/17 21:23 Dose: 12.5 mg Clopidogrel Bisulfate (Plavix) 75 mg PO DAILY [facility] Last Admin: 06/20/17 08:17 Dose: 75 mg Collagenase (Santyl) 1 applic TOP DAILY [facility] Last Admin: 06/20/17 08:20 Dose: 1 applic Dextrose (Dextrose 50% Inj) 0 ml IV STAT PRN; Protocol PRN Reason: Hyglycemia Protocol Dextrose (Glutose 15) 0 gm PO ONCE PRN; Protocol PRN Reason: Hypoglycemia Protocol Enoxaparin Sodium (Lovenox) 40 mg SC DAILY [facility] PRN Reason: Protocol Last Admin: 06/20/17 08:16 Dose: 40 mg Furosemide (Lasix) 20 mg PO BID [facility] Last Admin: 06/20/17 16:25 Dose: 20 mg Glucagon (Glucagen Diagnostic Kit) 0 mg IM STAT PRN; Protocol PRN Reason: Hypoglycemia Protocol Insulin Detemir (Levemir) 10 units SC HS [facility] Last Admin: 06/20/17 21:24 Dose: 10 units Insulin Human Regular (Humulin R) 0 units SC [facility] PRN Reason: Protocol Last Admin: 06/21/17 08:01 Dose: Not Given Lidocaine (Lidoderm) 2 ea TD DAILY [facility] Last Admin: 06/20/17 08:20 Dose: 2 ea Lisinopril (Zestril) 40 mg PO DAILY@0900 [facility] Last Admin: 06/20/17 08:17 Dose: 40 mg Saccharomyces Boulardii (Florastor) 250 mg PO BID [facility] Last Admin: 06/20/17 16:25 Dose: 250 mg Sertraline HCl (Zoloft) 50 mg PO HS [facility] Last Admin: 06/20/17 21:20 Dose: 50 mg Spironolactone (Aldactone) 12.5 mg PO BID [facility] Last Admin: 06/20/17 16:25 Dose: 12.5 mg Tramadol HCl (Ultram) 50 mg PO Q6 PRN PRN Reason: Pain, severe (8-10) Last Admin: 06/20/17 21:19 Dose: 50 mg - Labs Labs: 06/16/17 11:35 06/16/17 11:35 PT 12.7 Seconds (9.8-13.1) 06/08/17 05:00 INR 1.2 (0.9-1.2) 06/08/17 05:00 APTT 26.5 Seconds (25.6-37.1) D 06/08/17 05:00 - Constitutional Appears: Well, Non-toxic, No Acute Distress - Extremities Exam Additional comments: LLE focused examination: Dressing was clean, dry and intact Vasc: DP/PT pulses palpable. CFT < 4 seconds x10, temperature gradient WNL. Decreased edema noted to patient's left foot consistent with surgical procedure Derm: Surgical site noted to be well coapted with no signs of dehiscence and all sutures intact, no periwound erythema, malodor, or other clinical signs of infection. <1 cc purulence expressed at ulcer site. Ulcer is non fluctuant. Ulcer site to left digit is nonerythematous with no drainage, malodor or other clinical signs of infection at this time. Necrotic eschar noted overlying ulceration site at left first metatarsal head level, dawna-wound maceration noted - resolving from yesterday Neuro: Epicritic and protective sensation grossly intact MSK: No pain with palpation near surgical site - Neurological Exam Neurological Exam: Alert, Awake, Oriented x3 - Psychiatric Exam Psychiatric exam: Normal Affect, Normal Mood Assessment and Plan - Assessment and Plan (Free Text) Assessment: 66 year old female 12 days s/p left foot partial exostectomy first metatarsal, partial exostectomy proximal phalanx base, excision tibial sesamoid secondary to OM Plan: Patient seen and evaluated at bedside Charts, labs and vitals reviewed Dressing of betadine soaked gauze, DSD applied to surgical site. Pt to be full weightbearing with use of post-op shoe to left foot. Pt to continue PT until stable enough to be DC'd home Patient stable from podiatry standpoint Podiatry will continue to follow while in house Upon DC patient will follow up with Dr. Reynoso in wound care center
[2017-06-21] MEDS: Enoxaparin 40 mg Syringe SC SCH (09:19)
[2017-06-21] MEDS: Saccharomyces Boulardi 250 mg Cap PO SCH ×2 (09:19→17:14)
[2017-06-21] MEDS: Lidocaine 5% Patch TD SCH (09:49)
[2017-06-21] MEDS: Santyl Collagenase OINTMENT TOP SCH (09:50)
--- NOTE | 2017-06-21 14:41 | CP.PCM.PN ---
<Wen Dallas - Last Filed: 06/21/17 16:13> Subjective - Date & Time of Evaluation Date of Evaluation: 06/21/17 Time of Evaluation: 07:10 - Subjective Subjective: Patient seen and examined today at bedside, no overnight events, reports feeling well, states mild pain on her L foot that is well controlled with meds, slept well through night, states good appetite. Denies dizziness, palpitations, sob, chest pain, or swelling of legs. Normal BM, no urinary symptoms. She feels comfortable during PT. Objective - Vital Signs/Intake and Output Vital Signs (last 24 hours): Temp Pulse Resp BP Pulse Ox 98.3 F 96 H 20 138/75 99 06/21/17 07:43 06/21/17 09:18 06/21/17 07:43 06/21/17 09:30 06/21/17 07:43 - Medications Medications: Current Medications Acetaminophen (Tylenol 325mg Tab) 650 mg PO Q6 PRN PRN Reason: Pain, moderate (4-7) Last Admin: 06/13/17 21:28 Dose: 650 mg Acetaminophen (Tylenol 325mg Tab) 650 mg PO Q4 PRN PRN Reason: Pain, Mild (1-3) Aspirin (Aspirin Chewable) 81 mg PO DAILY [facility] Last Admin: 06/21/17 09:17 Dose: 81 mg Atorvastatin Calcium (Lipitor) 40 mg PO HS [facility] Last Admin: 06/20/17 21:25 Dose: 40 mg Carvedilol (Coreg) 12.5 mg PO Q12 [facility] Last Admin: 06/21/17 09:17 Dose: 12.5 mg Clopidogrel Bisulfate (Plavix) 75 mg PO DAILY [facility] Last Admin: 06/21/17 09:19 Dose: 75 mg Collagenase (Santyl) 1 applic TOP DAILY [facility] Last Admin: 06/21/17 09:50 Dose: 1 applic Dextrose (Dextrose 50% Inj) 0 ml IV STAT PRN; Protocol PRN Reason: Hyglycemia Protocol Dextrose (Glutose 15) 0 gm PO ONCE PRN; Protocol PRN Reason: Hypoglycemia Protocol Enoxaparin Sodium (Lovenox) 40 mg SC DAILY [facility] PRN Reason: Protocol Last Admin: 06/21/17 09:19 Dose: 40 mg Furosemide (Lasix) 20 mg PO BID [facility] Last Admin: 06/21/17 09:30 Dose: 20 mg Glucagon (Glucagen Diagnostic Kit) 0 mg IM STAT PRN; Protocol PRN Reason: Hypoglycemia Protocol Insulin Detemir (Levemir) 10 units SC [facility] Last Admin: 06/20/17 21:24 Dose: 10 units Insulin Human Regular (Humulin R) [address] [facility] PRN Reason: Protocol Last Admin: 06/21/17 11:42 Dose: 1 unit Lidocaine (Lidoderm) 2 ea TD DAILY [facility] Last Admin: 06/21/17 09:49 Dose: 2 ea Lisinopril (Zestril) 40 mg PO DAILY@0900 [facility] Last Admin: 06/21/17 09:18 Dose: 40 mg Saccharomyces Boulardii (Florastor) 250 mg PO BID [facility] Last Admin: 06/21/17 09:19 Dose: 250 mg Sertraline HCl (Zoloft) 50 mg PO [facility] Last Admin: 06/20/17 21:20 Dose: 50 mg Spironolactone (Aldactone) 12.5 mg PO BID [facility] Last Admin: 06/21/17 09:16 Dose: 12.5 mg Tramadol HCl (Ultram) 50 mg PO Q6 PRN PRN Reason: Pain, severe (8-10) Last Admin: 06/20/17 21:19 Dose: 50 mg - Labs Labs: 06/16/17 11:35 06/16/17 11:35 PT 12.7 Seconds (9.8-13.1) 06/08/17 05:00 INR 1.2 (0.9-1.2) 06/08/17 05:00 APTT 26.5 Seconds (25.6-37.1) D 06/08/17 05:00 - Constitutional Appears: Well, No Acute Distress - Head Exam Head Exam: ATRAUMATIC, NORMOCEPHALIC - Eye Exam Eye Exam: EOMI, Normal appearance, PERRL - ENT Exam ENT Exam: Mucous Membranes Moist - Neck Exam Neck Exam: Full ROM - Respiratory Exam Respiratory Exam: Clear to Ausculation Bilateral. absent: Rales, Rhonchi, Wheezes - Cardiovascular Exam Cardiovascular Exam: REGULAR RHYTHM, +S1, +S2 - GI/Abdominal Exam GI & Abdominal Exam: Soft, Normal Bowel Sounds. absent: Tenderness, Organomegaly - Extremities Exam Additional comments: L foot wound clean, no signs of infection, no oozing. - Neurological Exam Neurological Exam: Alert, CN II-XII Intact, Oriented x3 - Psychiatric Exam Psychiatric exam: Normal Mood Assessment and Plan - Assessment and Plan (Free Text) Assessment: 66 y/o female with hx of PVD admitted for osteomyelitis POD 11 Partial resection of 1st metatarsal L foot. Complicated by findings of new-onset heart failure and NAI. Progressing well though not safe to discharge yet due to safety concerns at home regarding therapy progress. #Osteomyelitis, Acute -Partial resection of 1st metatarsal L foot completed in OR by Podiatry (06/08) . -Cleared for podiatry and F/U on 06/23/[address] Reynoso. -c/w Tramadol and lidocaine patch for pain. -PT evaluation: [facility] recommended. patient d/c is pending PT progression as she is not a safe d/c to home at this time. -Encouraged OOB #Acute Decompensated Systolic Heart Failure- EF 20% -Last Echo (06/10) EF <15-20% -Coreg 9.375mg PO -Lisinopril 40 mg daily -continue lasix 20 mg PO bid -Aldactone 12.5mg PO BID -Monitor I/O's. -Dr. Mcdaniel will continue care into outpatient care, will manage per their recommendations. will need cath/eval for AICD placement as outpatient. #Acute Kidney Injury-Resolved -Nephrology recommendations Dr Schultz appreciated # Anemia, Acute s/p PRBC and I.V. Venofer improving -Last Hgb 10.2 -FOBT x 3 negative during admission # Peripheral Vascular Disease- s/p Left lower leg revascularization -Revascularization completed at [facility]. -Monitor pedal pulses daily # Diabetes Mellitus Type 2-Improving -Levemir 10 units daily. -Continue insulin coverage regular 30 mins before meals. -F/U accuchecks #Hypertension -c/w current management -Coreg 9.375mg Q12 # Hyperlipidemia -Continue home meds: atorvastatin # Depression-Improving -Sertraline 50 mg PO daily. # DVT prophylaxis -Levonox 40 mg sc daily. <Delia Matias - Last Filed: 06/22/17 08:16> Objective - Vital Signs/Intake and Output Vital Signs (last 24 hours): Temp Pulse Resp BP Pulse Ox 98.5 F 69 19 131/73 95 06/22/17 00:49 08/29/17 00:49 06/22/17 00:49 06/22/17 00:49 06/22/17 00:49 - Medications Medications: Current Medications Acetaminophen (Tylenol 325mg Tab) 650 mg PO Q6 PRN PRN Reason: Pain, moderate (4-7) Last Admin: 06/13/17 21:28 Dose: 650 mg Acetaminophen (Tylenol 325mg Tab) 650 mg PO Q4 PRN PRN Reason: Pain, Mild (1-3) Aspirin (Aspirin Chewable) 81 mg PO DAILY [facility] Last Admin: 06/21/17 09:17 Dose: 81 mg Atorvastatin Calcium (Lipitor) 40 mg PO HS [facility] Last Admin: 06/21/17 22:14 Dose: 40 mg Carvedilol (Coreg) 12.5 mg PO Q12 [facility] Last Admin: 06/21/17 22:12 Dose: 12.5 mg Clopidogrel Bisulfate (Plavix) 75 mg PO DAILY [facility] Last Admin: 06/21/17 09:19 Dose: 75 mg Collagenase (Santyl) 1 applic TOP DAILY [facility] Last Admin: 06/21/17 09:50 Dose: 1 applic Dextrose (Dextrose 50% Inj) 0 ml IV STAT PRN; Protocol PRN Reason: Hyglycemia Protocol Dextrose (Glutose 15) 0 gm PO ONCE PRN; Protocol PRN Reason: Hypoglycemia Protocol Enoxaparin Sodium (Lovenox) 40 mg SC DAILY [facility] PRN Reason: Protocol Last Admin: 06/21/17 09:19 Dose: 40 mg Furosemide (Lasix) 20 mg PO BID [facility] Last Admin: 06/21/17 17:14 Dose: 20 mg Glucagon (Glucagen Diagnostic Kit) 0 mg IM STAT PRN; Protocol PRN Reason: Hypoglycemia Protocol Insulin Detemir (Levemir) 10 units SC HS [facility] Last Admin: 06/21/17 22:13 Dose: 10 units Insulin Human Regular (Humulin R) [address] [facility] PRN Reason: Protocol Last Admin: 06/22/17 06:48 Dose: Not Given Lidocaine (Lidoderm) 2 ea TD DAILY [facility] Last Admin: 06/21/17 09:49 Dose: 2 ea Lisinopril (Zestril) 40 mg PO DAILY@0900 [facility] Last Admin: 06/21/17 09:18 Dose: 40 mg Saccharomyces Boulardii (Florastor) 250 mg PO BID [facility] Last Admin: 06/21/17 17:14 Dose: 250 mg Sertraline HCl (Zoloft) 50 mg PO HS [facility] Last Admin: 06/21/17 22:14 Dose: 50 mg Spironolactone (Aldactone) 12.5 mg PO BID [facility] Last Admin: 06/21/17 17:14 Dose: 12.5 mg Tramadol HCl (Ultram) 50 mg PO Q6 PRN PRN Reason: Pain, severe (8-10) Last Admin: 06/20/17 21:19 Dose: 50 mg - Labs Labs: 06/16/17 11:35 06/16/17 11:35 PT 12.7 Seconds (9.8-13.1) 06/08/17 05:00 INR 1.2 (0.9-1.2) 06/08/17 05:00 APTT 26.5 Seconds (25.6-37.1) D 06/08/17 05:00 - Skin Additional comments: ADDENDUM ATTENDING NOTE PATIENT SEEN AND EXAMINED. CASE DISCUSSED WITH RESIDENT. AGREE WITH FINDINGS AND PLAN.
--- NOTE | 2017-06-21 19:05 | CP.PCM.PN ---
Subjective - Date & Time of Evaluation Date of Evaluation: 06/21/17 Time of Evaluation: 12:00 - Subjective Subjective: Patient denies shortness of breath; reports some dizziness while having PT; Objective - Vital Signs/Intake and Output Vital Signs (last 24 hours): Temp Pulse Resp BP Pulse Ox 97.9 F 70 18 117/72 98 06/21/17 15:53 06/21/17 15:53 06/21/17 15:53 06/21/17 17:14 06/21/17 16:44 - Medications Medications: Current Medications Acetaminophen (Tylenol 325mg Tab) 650 mg PO Q6 PRN PRN Reason: Pain, moderate (4-7) Last Admin: 06/13/17 21:28 Dose: 650 mg Acetaminophen (Tylenol 325mg Tab) 650 mg PO Q4 PRN PRN Reason: Pain, Mild (1-3) Aspirin (Aspirin Chewable) 81 mg PO DAILY [facility] Last Admin: 06/21/17 09:17 Dose: 81 mg Atorvastatin Calcium (Lipitor) 40 mg PO HS [facility] Last Admin: 06/20/17 21:25 Dose: 40 mg Carvedilol (Coreg) 12.5 mg PO Q12 [facility] Last Admin: 06/21/17 09:17 Dose: 12.5 mg Clopidogrel Bisulfate (Plavix) 75 mg PO DAILY [facility] Last Admin: 06/21/17 09:19 Dose: 75 mg Collagenase (Santyl) 1 applic TOP DAILY [facility] Last Admin: 06/21/17 09:50 Dose: 1 applic Dextrose (Dextrose 50% Inj) 0 ml IV STAT PRN; Protocol PRN Reason: Hyglycemia Protocol Dextrose (Glutose 15) 0 gm PO ONCE PRN; Protocol PRN Reason: Hypoglycemia Protocol Enoxaparin Sodium (Lovenox) 40 mg SC DAILY [facility] PRN Reason: Protocol Last Admin: 06/21/17 09:19 Dose: 40 mg Furosemide (Lasix) 20 mg PO BID [facility] Last Admin: 06/21/17 17:14 Dose: 20 mg Glucagon (Glucagen Diagnostic Kit) 0 mg IM STAT PRN; Protocol PRN Reason: Hypoglycemia Protocol Insulin Detemir (Levemir) 10 units SC [facility] Last Admin: 06/20/17 21:24 Dose: 10 units Insulin Human Regular (Humulin R) 0 units SC [facility] PRN Reason: Protocol Last Admin: 06/21/17 17:37 Dose: 1 unit Lidocaine (Lidoderm) 2 ea TD DAILY [facility] Last Admin: 06/21/17 09:49 Dose: 2 ea Lisinopril (Zestril) 40 mg PO DAILY@0900 [facility] Last Admin: 06/21/17 09:18 Dose: 40 mg Saccharomyces Boulardii (Florastor) 250 mg PO BID [facility] Last Admin: 06/21/17 17:14 Dose: 250 mg Sertraline HCl (Zoloft) 50 mg PO HS [facility] Last Admin: 06/20/17 21:20 Dose: 50 mg Spironolactone (Aldactone) 12.5 mg PO BID [facility] Last Admin: 06/21/17 17:14 Dose: 12.5 mg Tramadol HCl (Ultram) 50 mg PO Q6 PRN PRN Reason: Pain, severe (8-10) Last Admin: 06/20/17 21:19 Dose: 50 mg - Labs Labs: 06/16/17 11:35 06/16/17 11:35 PT 12.7 Seconds (9.8-13.1) 06/08/17 05:00 INR 1.2 (0.9-1.2) 06/08/17 05:00 APTT 26.5 Seconds (25.6-37.1) D 06/08/17 05:00 - Constitutional Appears: Well, No Acute Distress - Head Exam Head Exam: NORMAL INSPECTION - Eye Exam Eye Exam: Normal appearance. absent: Scleral icterus - ENT Exam ENT Exam: Mucous Membranes Moist - Respiratory Exam Respiratory Exam: Clear to Ausculation Bilateral, NORMAL BREATHING PATTERN. absent: Rales, Rhonchi, Wheezes, Respiratory Distress - Cardiovascular Exam Cardiovascular Exam: REGULAR RHYTHM, JVD, +S1, +S2 - GI/Abdominal Exam GI & Abdominal Exam: Soft. absent: Distended, Tenderness - Extremities Exam Additional comments: Mild bilateral lower leg edema; - Neurological Exam Neurological Exam: Alert, Awake - Skin Skin Exam: Normal Color, Warm. absent: Cyanosis Assessment and Plan (1) Acute renal failure Status: Resolved (2) Cardiomyopathy, dilated Assessment & Plan: Asymptomatic but has some volume excess on exam; will need to have regular daily weights; if weight increasing, should increase PO lasix to 40 mg in am and continue 20 mg in pm until until euvolemic, then resume 20 mg bid; Status: Acute (3) PVD (peripheral vascular disease) Assessment & Plan: continue ASA/statin; Status: Chronic (4) HTN (hypertension) Assessment & Plan: BP controlled on current regimen; see above regarding diuretics; Status: Chronic (5) CKD (chronic kidney disease) Assessment & Plan: Mild non-proteinuric disease but is at risk for NAI from contrast; avoid nephrotoxins; Status: Chronic (6) Anemia Assessment & Plan: Improved; monitor; Status: Acute
[2017-06-21] MEDS: Insulin Detemir 100 Units/ml Inj SC SCH (22:13)
[2017-06-22] MEDS: Insulin Regular 100 units/ml SC SCH ×3 (06:48→13:11)
--- NOTE | 2017-06-22 07:46 | CP.PCM.PN ---
Subjective - Date & Time of Evaluation Date of Evaluation: 06/22/17 Time of Evaluation: 07:46 - Subjective Subjective: mild congestion noted on exam agree with to uptitrate diuretic regimen Objective - Vital Signs/Intake and Output Vital Signs (last 24 hours): Temp Pulse Resp BP Pulse Ox 98.5 F 69 19 131/73 95 06/22/17 00:49 06/22/17 00:49 06/22/17 00:49 06/22/17 00:49 06/22/17 00:49 - Medications Medications: Current Medications Acetaminophen (Tylenol 325mg Tab) 650 mg PO Q6 PRN PRN Reason: Pain, moderate (4-7) Last Admin: 06/13/17 21:28 Dose: 650 mg Acetaminophen (Tylenol 325mg Tab) 650 mg PO Q4 PRN PRN Reason: Pain, Mild (1-3) Aspirin (Aspirin Chewable) 81 mg PO DAILY [facility] Last Admin: 06/21/17 09:17 Dose: 81 mg Atorvastatin Calcium (Lipitor) 40 mg PO HS [facility] Last Admin: 06/21/17 22:14 Dose: 40 mg Carvedilol (Coreg) 12.5 mg PO Q12 [facility] Last Admin: 06/21/17 22:12 Dose: 12.5 mg Clopidogrel Bisulfate (Plavix) 75 mg PO DAILY [facility] Last Admin: 06/21/17 09:19 Dose: 75 mg Collagenase (Santyl) 1 applic TOP DAILY [facility] Last Admin: 06/21/17 09:50 Dose: 1 applic Dextrose (Dextrose 50% Inj) 0 ml IV STAT PRN; Protocol PRN Reason: Hyglycemia Protocol Dextrose (Glutose 15) 0 gm PO ONCE PRN; Protocol PRN Reason: Hypoglycemia Protocol Enoxaparin Sodium (Lovenox) 40 mg SC DAILY [facility] PRN Reason: Protocol Last Admin: 06/21/17 09:19 Dose: 40 mg Furosemide (Lasix) 20 mg PO BID [facility] Last Admin: 06/21/17 17:14 Dose: 20 mg Glucagon (Glucagen Diagnostic Kit) 0 mg IM STAT PRN; Protocol PRN Reason: Hypoglycemia Protocol Insulin Detemir (Levemir) 10 units SC [facility] Last Admin: 06/21/17 22:13 Dose: 10 units Insulin Human Regular (Humulin R) 0 units SC [facility] PRN Reason: Protocol Last Admin: 06/22/17 06:48 Dose: Not Given Lidocaine (Lidoderm) 2 ea TD DAILY [facility] Last Admin: 06/21/17 09:49 Dose: 2 ea Lisinopril (Zestril) 40 mg PO DAILY@0900 [facility] Last Admin: 06/21/17 09:18 Dose: 40 mg Saccharomyces Boulardii (Florastor) 250 mg PO BID [facility] Last Admin: 06/21/17 17:14 Dose: 250 mg Sertraline HCl (Zoloft) 50 mg PO HS [facility] Last Admin: 06/21/17 22:14 Dose: 50 mg Spironolactone (Aldactone) 12.5 mg PO BID [facility] Last Admin: 06/21/17 17:14 Dose: 12.5 mg Tramadol HCl (Ultram) 50 mg PO Q6 PRN PRN Reason: Pain, severe (8-10) Last Admin: 06/20/17 21:19 Dose: 50 mg - Labs Labs: 06/16/17 11:35 06/16/17 11:35 PT 12.7 Seconds (9.8-13.1) 06/08/17 05:00 INR 1.2 (0.9-1.2) 06/08/17 05:00 APTT 26.5 Seconds (25.6-37.1) D 06/08/17 05:00 - Constitutional Appears: Well - Head Exam Head Exam: ATRAUMATIC, NORMAL INSPECTION, NORMOCEPHALIC - Eye Exam Eye Exam: EOMI, Normal appearance, PERRL Pupil Exam: NORMAL ACCOMODATION, PERRL - ENT Exam ENT Exam: Mucous Membranes Moist, Normal Exam - Neck Exam Neck Exam: Full ROM, Normal Inspection. absent: Lymphadenopathy - Respiratory Exam Respiratory Exam: Rales, NORMAL BREATHING PATTERN - Cardiovascular Exam Cardiovascular Exam: REGULAR RHYTHM, +S1, +S2, Murmur - GI/Abdominal Exam GI & Abdominal Exam: Soft, Normal Bowel Sounds. absent: Tenderness - Extremities Exam Extremities Exam: Full ROM, Normal Capillary Refill, Normal Inspection. absent : Joint Swelling, Pedal Edema - Back Exam Back Exam: NORMAL INSPECTION - Neurological Exam Neurological Exam: Alert, Awake, CN II-XII Intact, Normal Gait, Oriented x3 - Psychiatric Exam Psychiatric exam: Normal Affect, Normal Mood - Skin Skin Exam: Dry, Intact, Normal Color, Warm Assessment and Plan (1) Systolic and diastolic CHF, acute on chronic Assessment & Plan: increase lasix dose to 40mg po bid cont RAAS modulators and BB plan for ischemic w/u as outp Status: Acute (2) Cardiomyopathy, dilated Assessment & Plan: etiology unclear no indication for AICD until etiology defined outpt w/u f/u next week in office Status: Acute (3) CAD (coronary artery disease) Assessment & Plan: inferior wall [place] on MPI will need cardiac cath on DAPT , BB Status: Acute (4) PVD (peripheral vascular disease) Status: Chronic (5) Volume overload Status: Acute (6) CKD (chronic kidney disease) Status: Chronic (7) Dyslipidemia Status: Chronic
[2017-06-22 08:31] VITALS: BP 153/79; RESP 18; TEMP 98.2; O2SAT 98
[2017-06-22] MEDS: Lidocaine 5% Patch TD SCH (08:50)
[2017-06-22] MEDS: Enoxaparin 40 mg Syringe SC SCH (08:50)
[2017-06-22] MEDS: Saccharomyces Boulardi 250 mg Cap PO SCH (08:51)
[2017-06-22 08:57] VITALS: PULSE 103
--- NOTE | 2017-06-22 10:26 | CP.PCM.PN ---
Subjective - Date & Time of Evaluation Date of Evaluation: 06/22/17 Time of Evaluation: 10:23 - Subjective Subjective: Podiatry note for Dr. Reynoso 66 year old female seen at bedside 14 days s/p partial resection of distal left 1st metatarsal, partial resection of base of proximal phalanx, excision of left tibial sesamoid and debridement of ulcers. Pt reports no pain to surgical site at this time. Patient states that she has only been able to walk more and more with each day and has been using her surgical shoe when moving. She states that physical therapy is getting better. She denies and acute overnight events. She denies recent F/N/V/C/SOB/CP today. Objective - Vital Signs/Intake and Output Vital Signs (last 24 hours): Temp Pulse Resp BP Pulse Ox 98.2 F 103 H 18 153/79 H 98 06/22/17 08:30 06/22/17 08:53 06/22/17 08:30 06/22/17 08:53 06/22/17 08:30 - Medications Medications: Current Medications Acetaminophen (Tylenol 325mg Tab) 650 mg PO Q6 PRN PRN Reason: Pain, moderate (4-7) Last Admin: 06/13/17 21:28 Dose: 650 mg Acetaminophen (Tylenol 325mg Tab) 650 mg PO Q4 PRN PRN Reason: Pain, Mild (1-3) Aspirin (Aspirin Chewable) 81 mg PO DAILY [facility] Last Admin: 06/22/17 08:54 Dose: 81 mg Atorvastatin Calcium (Lipitor) 40 mg PO HS [facility] Last Admin: 06/21/17 22:14 Dose: 40 mg Carvedilol (Coreg) 12.5 mg PO Q12 [facility] Last Admin: 06/22/17 08:53 Dose: 12.5 mg Clopidogrel Bisulfate (Plavix) 75 mg PO DAILY [facility] Last Admin: 06/22/17 08:52 Dose: 75 mg Collagenase (Santyl) 1 applic TOP DAILY [facility] Last Admin: 06/21/17 09:50 Dose: 1 applic Dextrose (Dextrose 50% Inj) 0 ml IV STAT PRN; Protocol PRN Reason: Hyglycemia Protocol Dextrose (Glutose 15) 0 gm PO ONCE PRN; Protocol PRN Reason: Hypoglycemia Protocol Furosemide (Lasix) 20 mg PO BID [facility] Last Admin: 06/22/17 08:53 Dose: 20 mg Glucagon (Glucagen Diagnostic Kit) 0 mg IM STAT PRN; Protocol PRN Reason: Hypoglycemia Protocol Insulin Detemir (Levemir) 10 units SC HS [facility] Last Admin: 06/21/17 22:13 Dose: 10 units Insulin Human Regular (Humulin R) 0 units SC [facility] PRN Reason: Protocol Last Admin: 06/22/17 06:48 Dose: Not Given Lidocaine (Lidoderm) 2 ea TD DAILY [facility] Last Admin: 06/22/17 08:50 Dose: 2 ea Lisinopril (Zestril) 40 mg PO DAILY@0900 [facility] Last Admin: 06/22/17 08:52 Dose: 40 mg Saccharomyces Boulardii (Florastor) 250 mg PO BID [facility] Last Admin: 06/22/17 08:51 Dose: 250 mg Sertraline HCl (Zoloft) 50 mg PO HS [facility] Last Admin: 06/21/17 22:14 Dose: 50 mg Spironolactone (Aldactone) 12.5 mg PO BID [facility] Last Admin: 06/22/17 08:52 Dose: 12.5 mg Tramadol HCl (Ultram) 50 mg PO Q6 PRN PRN Reason: Pain, severe (8-10) Last Admin: 06/20/17 21:19 Dose: 50 mg - Labs Labs: 06/16/17 11:35 06/16/17 11:35 PT 12.7 Seconds (9.8-13.1) 06/08/17 05:00 INR 1.2 (0.9-1.2) 06/08/17 05:00 APTT 26.5 Seconds (25.6-37.1) D 06/08/17 05:00 - Constitutional Appears: Well, Non-toxic, No Acute Distress - Extremities Exam Additional comments: LLE focused examination: Dressing was clean, dry and intact Vasc: DP/PT pulses palpable. CFT < 4 seconds x10, temperature gradient WNL. No edema to LE noted at this time Derm: Surgical site noted to be well coapted with no signs of dehiscence and all sutures intact, no periwound erythema, malodor, or other clinical signs of infection. <1 cc purulence expressed at ulcer site. Ulcer is non fluctuant. Ulcer site to left digit is nonerythematous with no drainage, malodor or other clinical signs of infection at this time. Necrotic eschar noted overlying ulceration site at left first metatarsal head level, no dawna-wound maceration noted at this time Neuro: Epicritic and protective sensation grossly intact MSK: No pain with palpation near surgical site - Neurological Exam Neurological Exam: Alert, Awake, Oriented x3 - Psychiatric Exam Psychiatric exam: Normal Affect, Normal Mood Assessment and Plan - Assessment and Plan (Free Text) Assessment: 66 year old female 14 days s/p left foot partial exostectomy first metatarsal, partial exostectomy proximal phalanx base, excision tibial sesamoid secondary to OM Plan: Patient seen and evaluated at bedside Charts, labs and vitals reviewed Dressing of betadine soaked gauze, DSD applied to surgical site. Pt to be full weightbearing with use of post-op shoe to left foot. Pt to continue PT until stable enough to be DC'd home Patient stable from podiatry standpoint Podiatry will continue to follow while in house Upon DC patient will follow up with Dr. Reynoso in wound care center
[2017-06-22] MEDS: Santyl Collagenase OINTMENT TOP SCH (12:56)
--- NOTE | 2017-06-22 15:22 | CP.PCM.DIS ---
<Wen Dallas - Last Filed: 06/23/17 11:32> Provider - Provider Date of Admission: 05/19/17 15:09 Attending physician: Justina Deutsch MD Time Spent in preparation of Discharge (in minutes): 30 Diagnosis - Discharge Diagnosis (1) Osteomyelitis Status: Resolved (2) Heart failure, left, with LVEF <=30% Status: Acute (3) Acute renal failure Status: Resolved Hospital Course - Lab Results Lab Results: Micro Results 05/23/17 20:11 Urine Urine Culture - Final No Growth (<1,000 CFU/ML) Most Recent Lab Values WBC 8.9 K/uL (4.8-10.8) 06/16/17 11:35 RBC 3.63 Mil/uL (3.80-5.20) L 06/16/17 11:35 Hgb 10.2 g/dL (12.0-16.0) L 06/16/17 11:35 Hct 31.4 % (34.0-47.0) L 06/16/17 11:35 MCV 86.5 fl (81.0-99.0) D 06/16/17 11:35 MCH 28.2 pg (27.0-31.0) 06/16/17 11:35 MCHC 32.6 g/dL (33.0-37.0) L 06/16/17 11:35 RDW 17.8 % (11.5-14.5) H 06/16/17 11:35 Plt Count 216 K/uL (130-400) 06/16/17 11:35 MPV 10.7 fl (7.2-11.7) 05/19/17 14:00 Neut % (Auto) 65.5 % (50.0-75.0) 05/19/17 14:00 Lymph % (Auto) 26.0 % (20.0-40.0) 05/19/17 14:00 [place] % (Auto) 5.9 % (0.0-10.0) 05/19/17 14:00 Eos % (Auto) 1.6 % (0.0-4.0) 05/19/17 14:00 Baso % (Auto) 1.0 % (0.0-2.0) 05/19/17 14:00 Neut # 6.8 K/uL (1.8-7.0) 05/19/17 14:00 Lymph # 2.7 K/uL (1.0-4.3) 05/19/17 14:00 [place] # 0.6 K/uL (0.0-0.8) 05/19/17 14:00 Eos # 0.2 K/uL (0.0-0.7) 05/19/17 14:00 Baso # 0.1 K/uL (0.0-0.2) 05/19/17 14:00 ESR 29 mm/hr (0-30) 05/31/17 06:01 Retic Count 3.4 % (0.5-1.5) H 05/31/17 06:03 Haptoglobin 238 mg/dL (43-212) H 06/06/17 05:30 PT 12.7 Seconds (9.8-13.1) 06/08/17 05:00 INR 1.2 (0.9-1.2) 06/08/17 05:00 APTT 26.5 Seconds (25.6-37.1) D 06/08/17 05:00 Sodium 136 mmol/l (132-148) 06/16/17 11:35 Potassium 3.6 MMOL/L (3.6-5.0) 06/16/17 11:35 Chloride 104 mmol/L (98-107) 06/16/17 11:35 Carbon Dioxide 22 mmol/L (22-30) 06/16/17 11:35 Anion Gap 14 (10-20) 06/16/17 11:35 BUN 12 mg/dl (7-17) 06/16/17 11:35 Creatinine 1.0 mg/dL (0.7-1.2) 06/16/17 11:35 Est GFR ( Amer) > 60 06/16/17 11:35 Est GFR (Non-Af Amer) 56 06/16/17 11:35 POC Glucose (mg/dL) 153 mg/dL (65-110) H 06/22/17 11:22 Random Glucose 150 mg/dL (65-105) H 06/16/17 11:35 Hemoglobin A1c 7.3 % (4.2-6.5) H D 05/21/17 05:10 Calcium 9.1 mg/dL (8.4-10.2) 06/16/17 11:35 Phosphorus 4.8 mg/dl (2.5-4.5) H 06/02/17 05:55 Magnesium 1.9 MG/DL (1.6-2.3) 06/13/17 09:00 Iron 24 ug/dL (37-170) L 05/31/17 06:03 TIBC 294 ug/dL (250-450) 05/31/17 06:03 % Saturation 8 % (20-55) L 05/31/17 06:03 Erythropoietin 20.2 mIU/mL (2.6-18.5) H 05/31/17 06:03 Ferritin 16.7 ng/mL 05/31/17 06:03 Total Bilirubin 0.6 mg/dl (0.2-1.3) 06/16/17 11:35 Direct Bilirubin 0.3 mg/ml (0.0-0.4) 06/06/17 05:30 AST 30 U/L (14-36) 06/16/17 11:35 ALT 44 U/L (9-52) 06/16/17 11:35 Alkaline Phosphatase 120 U/L (38-126) 06/16/17 11:35 Total Creatine Kinase 49 U/L (30-135) 05/31/17 06:03 Troponin I 0.1380 ng/mL (0.00-0.120) H* 05/31/17 06:03 NT-Pro-B Natriuret Pep 37892 pg/ml (0-900) H 06/02/17 05:55 Total Protein 6.6 G/DL (6.3-8.2) 06/16/17 11:35 Total Protein (PEP) 5.2 g/dL (6.1-8.1) L 06/01/17 05:20 Albumin 3.3 g/dL (3.5-5.0) L 06/16/17 11:35 Albumin (PEP) 2.4 g/dL (3.8-4.8) L 06/01/17 05:20 Globulin 3.3 gm/dL (2.2-3.9) 06/16/17 11:35 Albumin/Globulin Ratio 1.0 (1.0-2.1) 06/16/17 11:35 Urmpk-8-Lklbfztjj 0.4 g/dL (0.2-0.3) H 06/01/17 05:20 Lgcfr-0-Pjalexpoi 0.7 g/dL (0.5-0.9) 06/01/17 05:20 Ksml-1-Epzcrbqt 0.3 g/dL (0.4-0.6) L 06/01/17 05:20 Fneq-7-Ribbcdvp 0.3 g/dL (0.2-0.5) 06/01/17 05:20 Gamma Globulins 1.1 g/dL (0.8-1.7) 06/01/17 05:20 Abnorm Protein Band 1 0.21 g/dL (None Detected) H 06/01/17 05:20 Abnorm Protein Band 2 TEST NOT PERFORMED 06/01/17 05:20 Abnorm Protein Band 3 TEST NOT PERFORMED 06/01/17 05:20 Triglycerides 116 mg/DL (0-149) D 05/22/17 06:00 Cholesterol 97 mg/dL (0-199) 05/22/17 06:00 LDL Cholesterol Direct 48 mg/dL (0-129) 05/22/17 06:00 HDL Cholesterol 25 MG/DL (30-70) L 05/22/17 06:00 Vitamin B12 577 pg/mL (239-931) 06/01/17 05:20 Folate 9.2 ng/mL 06/01/17 05:20 Free T4 1.53 ng/dL (0.78-2.19) 05/22/17 06:00 Total T3 1.19 nmol/L (1.49-2.60) L 05/22/17 06:00 TSH 3rd Generation 0.67 mIU/ML (0.46-4.68) 05/22/17 06:00 Urine Color Yellow (YELLOW) 06/08/17 20:20 Urine Clarity Cloudy (Clear) 06/08/17 20:20 Urine pH 5.0 (5.0-8.0) 06/08/17 20:20 Ur Specific [place] 1.014 (1.003-1.030) 06/08/17 20:20 Urine Protein 100 mg/dL (NEGATIVE) 06/08/17 20:20 Urine Glucose (UA) 150 mg/dL (Normal) 06/08/17 20:20 Urine Ketones Negative mg/dL (NEGATIVE) 06/08/17 20:20 Urine Blood Negative (NEGATIVE) 06/08/17 20:20 Urine Nitrate Negative (NEGATIVE) 06/08/17 20:20 Urine Bilirubin Negative (NEGATIVE) 06/08/17 20:20 Urine Urobilinogen 0.2-1.0 mg/dL (0.2-1.0) 06/08/17 20:20 Ur Leukocyte Esterase Mod Clifford/uL (Negative) 06/08/17 20:20 Urine RBC (Auto) 2 /hpf (0-3) 06/06/17 16:56 Urine Microscopic WBC 38 /hpf (0-5) H 06/08/17 20:20 Ur Squamous Epith Cells 9 /hpf (0-5) H 06/08/17 20:20 Urine Bacteria Rare (<OCC) 05/23/17 20:11 Hyaline Casts 0-2 /hpf (0-2) 05/31/17 16:49 Urine Osmolality 273 mosm/kg (300-1000) L 05/31/17 16:49 Ur Random Creatinine 50.0 mg/dL 06/11/17 23:30 U Random Total Protein 71 mg/L 06/11/17 23:30 Ur Random Sodium 81 meq/L 06/01/17 Unknown Ur Random Potassium 18.9 mmol/L 06/01/17 Unknown Urine Creatinine 62 mg/dL (20-320) 06/11/17 19:00 Urine Microalbumin 24.8 mg/dL 06/11/17 19:00 Microalb/Creat Ratio 403 (<30) H 06/11/17 19:00 Stool Occult Blood Negative (NEGATIVE) 06/10/17 14:00 DARIAN & SPEP Interp See note 06/01/17 05:20 MAGI Screen Negative (Negative) 06/12/17 06:30 MAGI Titer TEST NOT PERFORMED 06/12/17 06:30 MAGI Titer 2 TEST NOT PERFORMED 06/12/17 06:30 MAGI Pattern TEST NOT PERFORMED 06/12/17 06:30 MAGI Pattern 2 TEST NOT PERFORMED 06/12/17 06:30 RPR Nonreactive (NONREACTIVE) 06/12/17 06:30 C. difficile Ag & Toxin Negative (NEGATIVE) 06/15/17 15:00 Hepatitis A IgM Ab Negative (NEGATIVE) 06/12/17 06:30 Hep Bs Antigen Negative (NEGATIVE) 06/12/17 06:30 Hep B Core IgM Ab Negative (NEGATIVE) 06/12/17 06:30 Hepatitis C Antibody Negative (NEGATIVE) 06/12/17 06:30 HIV-1 Antibody TEST NOT PERFORMED 06/12/17 06:30 HIV-2 Antibody TEST NOT PERFORMED 06/12/17 06:30 HIV 1&2 Ag/Ab, 4th Gen Nonreactive (Nonreactive) 06/12/17 06:30 Blood Type A POSITIVE 06/10/17 12:49 Blood Type Confirm A POSITIVE 06/03/17 16:30 Antibody Screen Negative 06/10/17 12:49 FLORIDALMA, Poly Interpret Positive (NEGATIVE) H 06/06/17 04:00 Indirect Antiglob Test Negative 06/06/17 04:00 Crossmatch See Detail 06/10/17 12:49 BBK History Checked Patient has bt 06/10/17 12:49 - Hospital Course Hospital Course: 66 yo F patient with PMH of PVD, HTN, OR, DM, HLD that was admitted w/ osteomyelitis on 05/20/17. Complicated by findings of new-onset heart failure and NAI due IV contrast nephropathy after severe artery disease requiring revascularization of L lower leg ( procedure done at [place]). Patient had partial resection of 1st metatarsal L foot on 06/08/17 requiring extended PT activity. Cardiology and Nephrology followed patient throughout admission and medically optimized conditions.NAI resolved. Heart failure with EF 20% will need outpatient Cath and possible AICD. Patient was discharged home safely with clearance and follow up instructions/visits on 06/21/17. Meds on discharge: Aspirin [Aspirin Chewable] 81 mg PO DAILY #30 Atorvastatin [Lipitor] 40 mg PO HS #30 tab Carvedilol [Coreg] 12.5 mg PO Q12 #60 tab Clopidogrel [Plavix] 75 mg PO DAILY #30 tab Furosemide [Lasix] 20 mg PO BID #90 tab Insulin Detemir [Levemir] 10 units SC HS 30 Days Lisinopril [Zestril] 40 mg PO DAILY@0900 30 Days Sertraline [Zoloft] 50 mg PO HS #30 tab Spironolactone [Aldactone] 12.5 mg PO BID #30 tab traMADol [Ultram] 50 mg PO Q8H PRN #15 tab PRN Reason: Pain, Severe (8-10) Discharge Exam - Head Exam Head Exam: ATRAUMATIC, NORMOCEPHALIC - Eye Exam Eye Exam: EOMI, Normal appearance, PERRL. absent: Nystagmus - Neck Exam Neck exam: Full Rom Additional comments: No JVD, no thyromegaly, no LAD - Respiratory Exam Respiratory Exam: Clear to PA & Lateral, NORMAL BREATHING PATTERN. absent: Rales, Rhonchi, Wheezes - Cardiovascular Exam Cardiovascular Exam: REGULAR RHYTHM, +S1, +S2. absent: Systolic Murmur - GI/Abdominal Exam GI & Abdominal Exam: Normal Bowel Sounds, Soft. absent: Mass - Extremities Exam Additional comments: L foot bandaged, dressing clean, no swelling, no bleeding, mild pain - Neurological Exam Neurological exam: Alert, CN II-XII Intact, Oriented x3, Reflexes Normal Discharge Plan - Discharge Medications Prescriptions: Aspirin [Aspirin Chewable] 81 mg PO DAILY #30 Atorvastatin [Lipitor] 40 mg PO HS #30 tab Carvedilol [Coreg] 12.5 mg PO Q12 #60 tab Clopidogrel [Plavix] 75 mg PO DAILY #30 tab Furosemide [Lasix] 20 mg PO BID #90 tab Insulin Detemir [Levemir] 10 units SC HS 30 Days Lisinopril [Zestril] 40 mg PO DAILY@0900 30 Days Sertraline [Zoloft] 50 mg PO HS #30 tab Spironolactone [Aldactone] 12.5 mg PO BID #30 tab traMADol [Ultram] 50 mg PO Q8H PRN #15 tab PRN Reason: Pain, Severe (8-10) - Follow Up Plan Condition: FAIR Disposition: HOME/ ROUTINE Instructions: Heart Failure (DC), Heart Failure (GEN), Diabetes Mellitus Type 2 in Adults (DC) Additional Instructions: Follow up with PMD, Dr. Kenia May on Jul 07, 2017 @ 2:00 PM [address] [place] [address] Follow up with Cardiology, Dr. Roberto Mcdaniel, on Jul 02, 2017 @ 9:[address] [place] [address] Follow up with Wound Care, Dr. Reynoso on Jun 30, 2017 @ 10:[address] [place] [address] Take medications as prescribed. Return to ED for symptoms including but not limited to chest pain, shortness of breath, or any new/worsening symptoms. favor de cumplir con citas belkys indicado tome los medicamentos mercedes indicaciones regrese a la conchis de emergencia para symtomas relacionado con dolor de pecho, falta de respiracion Referrals: Roberto Mcdaniel MD [Staff Provider] - Kenia May MD [Resident] - <Delia Matias - Last Filed: 06/23/17 12:23> Provider - Provider Date of Admission: 05/19/17 15:09 Attending physician: Justina Deutsch MD Hospital Course - Lab Results Lab Results: Micro Results 05/23/17 20:11 Urine Urine Culture - Final No Growth (<1,000 CFU/ML) Most Recent Lab Values WBC 8.9 K/uL (4.8-10.8) 06/16/17 11:35 RBC 3.63 Mil/uL (3.80-5.20) L 06/16/17 11:35 Hgb 10.2 g/dL (12.0-16.0) L 06/16/17 11:35 Hct 31.4 % (34.0-47.0) L 06/16/17 11:35 MCV 86.5 fl (81.0-99.0) D 06/16/17 11:35 MCH 28.2 pg (27.0-31.0) 06/16/17 11:35 MCHC 32.6 g/dL (33.0-37.0) L 06/16/17 11:35 RDW 17.8 % (11.5-14.5) H 06/16/17 11:35 Plt Count 216 K/uL (130-400) 06/16/17 11:35 MPV 10.7 fl (7.2-11.7) 05/19/17 14:00 Neut % (Auto) 65.5 % (50.0-75.0) 05/19/17 14:00 Lymph % (Auto) 26.0 % (20.0-40.0) 05/19/17 14:00 [place] % (Auto) 5.9 % (0.0-10.0) 05/19/17 14:00 Eos % (Auto) 1.6 % (0.0-4.0) 05/19/17 14:00 Baso % (Auto) 1.0 % (0.0-2.0) 05/19/17 14:00 Neut # 6.8 K/uL (1.8-7.0) 05/19/17 14:00 Lymph # 2.7 K/uL (1.0-4.3) 05/19/17 14:00 [place] # 0.6 K/uL (0.0-0.8) 05/19/17 14:00 Eos # 0.2 K/uL (0.0-0.7) 05/19/17 14:00 Baso # 0.1 K/uL (0.0-0.2) 05/19/17 14:00 ESR 29 mm/hr (0-30) 05/31/17 06:01 Retic Count 3.4 % (0.5-1.5) H 05/31/17 06:03 Haptoglobin 238 mg/dL (43-212) H 06/06/17 05:30 PT 12.7 Seconds (9.8-13.1) 06/08/17 05:00 INR 1.2 (0.9-1.2) 06/08/17 05:00 APTT 26.5 Seconds (25.6-37.1) D 06/08/17 05:00 Sodium 136 mmol/l (132-148) 06/16/17 11:35 Potassium 3.6 MMOL/L (3.6-5.0) 06/16/17 11:35 Chloride 104 mmol/L (98-107) 06/16/17 11:35 Carbon Dioxide 22 mmol/L (22-30) 06/16/17 11:35 Anion Gap 14 (10-20) 06/16/17 11:35 BUN 12 mg/dl (7-17) 06/16/17 11:35 Creatinine 1.0 mg/dL (0.7-1.2) 06/16/17 11:35 Est GFR ( Amer) > 60 06/16/17 11:35 Est GFR (Non-Af Amer) 56 06/16/17 11:35 POC Glucose (mg/dL) 153 mg/dL (65-110) H 06/22/17 11:22 Random Glucose 150 mg/dL (65-105) H 06/16/17 11:35 Hemoglobin A1c 7.3 % (4.2-6.5) H D 05/21/17 05:10 Calcium 9.1 mg/dL (8.4-10.2) 06/16/17 11:35 Phosphorus 4.8 mg/dl (2.5-4.5) H 06/02/17 05:55 Magnesium 1.9 MG/DL (1.6-2.3) 06/13/17 09:00 Iron 24 ug/dL (37-170) L 05/31/17 06:03 TIBC 294 ug/dL (250-450) 05/31/17 06:03 % Saturation 8 % (20-55) L 05/31/17 06:03 Erythropoietin 20.2 mIU/mL (2.6-18.5) H 05/31/17 06:03 Ferritin 16.7 ng/mL 05/31/17 06:03 Total Bilirubin 0.6 mg/dl (0.2-1.3) 06/16/17 11:35 Direct Bilirubin 0.3 mg/ml (0.0-0.4) 06/06/17 05:30 AST 30 U/L (14-36) 06/16/17 11:35 ALT 44 U/L (9-52) 06/16/17 11:35 Alkaline Phosphatase 120 U/L (38-126) 06/16/17 11:35 Total Creatine Kinase 49 U/L (30-135) 05/31/17 06:03 Troponin I 0.1380 ng/mL (0.00-0.120) H* 05/31/17 06:03 NT-Pro-B Natriuret Pep 60443 pg/ml (0-900) H 06/02/17 05:55 Total Protein 6.6 G/DL (6.3-8.2) 06/16/17 11:35 Total Protein (PEP) 5.2 g/dL (6.1-8.1) L 06/01/17 05:20 Albumin 3.3 g/dL (3.5-5.0) L 06/16/17 11:35 Albumin (PEP) 2.4 g/dL (3.8-4.8) L 06/01/17 05:20 Globulin 3.3 gm/dL (2.2-3.9) 06/16/17 11:35 Albumin/Globulin Ratio 1.0 (1.0-2.1) 06/16/17 11:35 Hzfov-8-Nlrzsnggn 0.4 g/dL (0.2-0.3) H 06/01/17 05:20 Bcurj-8-Zzdoibngm 0.7 g/dL (0.5-0.9) 06/01/17 05:20 Fmma-9-Aclqkqjm 0.3 g/dL (0.4-0.6) L 06/01/17 05:20 Zlpt-6-Ubjoshmp 0.3 g/dL (0.2-0.5) 06/01/17 05:20 Gamma Globulins 1.1 g/dL (0.8-1.7) 06/01/17 05:20 Abnorm Protein Band 1 0.21 g/dL (None Detected) H 06/01/17 05:20 Abnorm Protein Band 2 TEST NOT PERFORMED 06/01/17 05:20 Abnorm Protein Band 3 TEST NOT PERFORMED 06/01/17 05:20 Triglycerides 116 mg/DL (0-149) D 05/22/17 06:00 Cholesterol 97 mg/dL (0-199) 05/22/17 06:00 LDL Cholesterol Direct 48 mg/dL (0-129) 05/22/17 06:00 HDL Cholesterol 25 MG/DL (30-70) L 05/22/17 06:00 Vitamin B12 577 pg/mL (239-931) 06/01/17 05:20 Folate 9.2 ng/mL 06/01/17 05:20 Free T4 1.53 ng/dL (0.78-2.19) 05/22/17 06:00 Total T3 1.19 nmol/L (1.49-2.60) L 05/22/17 06:00 TSH 3rd Generation 0.67 mIU/ML (0.46-4.68) 05/22/17 06:00 Urine Color Yellow (YELLOW) 06/08/17 20:20 Urine Clarity Cloudy (Clear) 06/08/17 20:20 Urine pH 5.0 (5.0-8.0) 06/08/17 20:20 Ur Specific [place] 1.014 (1.003-1.030) 06/08/17 20:20 Urine Protein 100 mg/dL (NEGATIVE) 06/08/17 20:20 Urine Glucose (UA) 150 mg/dL (Normal) 06/08/17 20:20 Urine Ketones Negative mg/dL (NEGATIVE) 06/08/17 20:20 Urine Blood Negative (NEGATIVE) 06/08/17 20:20 Urine Nitrate Negative (NEGATIVE) 06/08/17 20:20 Urine Bilirubin Negative (NEGATIVE) 06/08/17 20:20 Urine Urobilinogen 0.2-1.0 mg/dL (0.2-1.0) 06/08/17 20:20 Ur Leukocyte Esterase Mod Clifford/uL (Negative) 06/08/17 20:20 Urine RBC (Auto) 2 /hpf (0-3) 06/06/17 16:56 Urine Microscopic WBC 38 /hpf (0-5) H 06/08/17 20:20 Ur Squamous Epith Cells 9 /hpf (0-5) H 06/08/17 20:20 Urine Bacteria Rare (<OCC) 05/23/17 20:11 Hyaline Casts 0-2 /hpf (0-2) 05/31/17 16:49 Urine Osmolality 273 mosm/kg (300-1000) L 05/31/17 16:49 Ur Random Creatinine 50.0 mg/dL 06/11/17 23:30 U Random Total Protein 71 mg/L 06/11/17 23:30 Ur Random Sodium 81 meq/L 06/01/17 Unknown Ur Random Potassium 18.9 mmol/L 06/01/17 Unknown Urine Creatinine 62 mg/dL (20-320) 06/11/17 19:00 Urine Microalbumin 24.8 mg/dL 06/11/17 19:00 Microalb/Creat Ratio 403 (<30) H 06/11/17 19:00 Stool Occult Blood Negative (NEGATIVE) 06/10/17 14:00 DARIAN & SPEP Interp See note 06/01/17 05:20 MAGI Screen Negative (Negative) 06/12/17 06:30 MAGI Titer TEST NOT PERFORMED 06/12/17 06:30 MAGI Titer 2 TEST NOT PERFORMED 06/12/17 06:30 MAGI Pattern TEST NOT PERFORMED 06/12/17 06:30 MAGI Pattern 2 TEST NOT PERFORMED 06/12/17 06:30 RPR Nonreactive (NONREACTIVE) 06/12/17 06:30 C. difficile Ag & Toxin Negative (NEGATIVE) 06/15/17 15:00 Hepatitis A IgM Ab Negative (NEGATIVE) 06/12/17 06:30 Hep Bs Antigen Negative (NEGATIVE) 06/12/17 06:30 Hep B Core IgM Ab Negative (NEGATIVE) 06/12/17 06:30 Hepatitis C Antibody Negative (NEGATIVE) 06/12/17 06:30 HIV-1 Antibody TEST NOT PERFORMED 06/12/17 06:30 HIV-2 Antibody TEST NOT PERFORMED 06/12/17 06:30 HIV 1&2 Ag/Ab, 4th Gen Nonreactive (Nonreactive) 06/12/17 06:30 Blood Type A POSITIVE 06/10/17 12:49 Blood Type Confirm A POSITIVE 06/03/17 16:30 Antibody Screen Negative 06/10/17 12:49 FLORIDALMA, Poly Interpret Positive (NEGATIVE) H 06/06/17 04:00 Indirect Antiglob Test Negative 06/06/17 04:00 Crossmatch See Detail 06/10/17 12:49 BBK History Checked Patient has bt 06/10/17 12:49 Discharge Exam - Skin Additional comments: ADDENDUM ATTENDING NOTE PATIENT SEEN AND EXAMINED. CASE DISCUSSED WITH RESIDENT. AGREE WITH FINDINGS AND DISCHARGE PLAN.
== END 2017-06-22 14:44 | disposition home or self-care (01) | DRG 565 ==
LOC: H.ER 11:29 → H.ERHOLD 15:09 → H.TEL 22:03 → H.MEDSURG1 06-05 20:54
PROVIDERS: ADMIT Family Medicine Geriatric Medicine; ATTEND Family Medicine Geriatric Medicine
PROC: 3E0234Z Introduction of Serum, Toxoid and Vaccine into Muscle, Percutaneous Approach (ICD-10-PCS; principal; 2017-05-20)
PROC: 047L34Z Dilation of Left Femoral Artery with Drug-eluting Intraluminal Device, Percutaneous Approach (ICD-10-PCS; 2017-05-27)
PROC: 047N34Z Dilation of Left Popliteal Artery with Drug-eluting Intraluminal Device, Percutaneous Approach (ICD-10-PCS; 2017-05-27)
PROC: 047S34Z Dilation of Left Posterior Tibial Artery with Drug-eluting Intraluminal Device, Percutaneous Approach (ICD-10-PCS; 2017-05-27)
PROC: 047Q3ZZ Dilation of Left Anterior Tibial Artery, Percutaneous Approach (ICD-10-PCS; 2017-05-27)
PROC: B400YZZ Plain Radiography of Abdominal Aorta using Other Contrast (ICD-10-PCS; 2017-05-27)
PROC: 30233N1 Transfusion of Nonautologous Red Blood Cells into Peripheral Vein, Percutaneous Approach (ICD-10-PCS; 2017-06-03)
PROC: 0QBP0ZZ Excision of Left Metatarsal, Open Approach (ICD-10-PCS; 2017-06-08)
PROC: 0JBR0ZZ Excision of Left Foot Subcutaneous Tissue and Fascia, Open Approach (ICD-10-PCS; 2017-06-08)
PROC: 0QBR0ZZ Excision of Left Toe Phalanx, Open Approach (ICD-10-PCS; 2017-06-08)
DX: E11.69 Type 2 diabetes mellitus with other specified complication (principal); I50.43 Acute on chronic combined systolic (congestive) and diastolic (congestive) heart failure; M86.172 Other acute osteomyelitis, left ankle and foot; N17.0 Acute kidney failure with tubular necrosis; E11.621 Type 2 diabetes mellitus with foot ulcer; I42.0 Dilated cardiomyopathy; E11.21 Type 2 diabetes mellitus with diabetic nephropathy; I13.0 Hypertensive heart and chronic kidney disease with heart failure and stage 1 through stage 4 chronic kidney disease, or unspecified chronic kidney disease; L97.529 Non-pressure chronic ulcer of other part of left foot with unspecified severity; E87.6 Hypokalemia; E11.22 Type 2 diabetes mellitus with diabetic chronic kidney disease; E11.65 Type 2 diabetes mellitus with hyperglycemia; Z23 Encounter for immunization; E78.00 Pure hypercholesterolemia, unspecified; E78.5 Hyperlipidemia, unspecified; I25.2 Old myocardial infarction; G89.29 Other chronic pain; F43.22 Adjustment disorder with anxiety; I70.202 Unspecified atherosclerosis of native arteries of extremities, left leg; I70.1 Atherosclerosis of renal artery; N18.9 Chronic kidney disease, unspecified; I69.354 Hemiplegia and hemiparesis following cerebral infarction affecting left non-dominant side; D50.9 Iron deficiency anemia, unspecified; G62.9 Polyneuropathy, unspecified; Z79.4 Long term (current) use of insulin; R74.0 Nonspecific elevation of levels of transaminase and lactic acid dehydrogenase [LDH]; E11.649 Type 2 diabetes mellitus with hypoglycemia without coma; N14.1 Nephropathy induced by other drugs, medicaments and biological substances

== ENCOUNTER 2017-11-09 16:46 | Emergency (ER) | payer SELFPAY ==
[2017-11-09 16:46] VITALS: BMI 23.8
--- NOTE | 2017-11-09 17:28 | ED PDOC ---
HPI: General Adult Time Seen by Provider: 11/09/17 17:10 Chief Complaint (Nursing): Wound Check Chief Complaint (Provider): wound check History Per: Patient, Family (daughter) Additional Complaint(s): 67-year-old female presents to emergency department for check of chronic wound to left foot. Patient had an appointment today at wound care center but arrived too late and was told to register and in ER for further evaluation. Patient's tawvkfyq-mz-nol at bedside states the patient has been under the care of the wound care center for the past 8 months. She has not been on any antibiotics recently. Ttndwcql-tz-wcd states that chronic wound did open up a few days ago and was bleeding but has not bled since. Patient denies fever or chills. No recent trauma to the affected area. Past Medical History Reviewed: Historical Data, Nursing Documentation, Vital Signs Vital Signs: Last Vital Signs Temp 97.7 F 11/09/17 17:28 Pulse 86 11/09/17 17:28 Resp 16 11/09/17 17:28 BP 133/58 L 11/09/17 17:28 Pulse Ox 99 11/09/17 17:28 - Medical History PMH: CAD, CVA, Diabetes, HTN, Hypercholesterolemia - Surgical History Surgical History: Coronary Stent Other surgeries: left foot surgery - Family History Family History: States: No Known Family Hx - Living Arrangements Living Arrangements: With Family - Social History Current smoker - smoking cessation education provided: No Alcohol: None Drugs: Denies - Immunization History Hx Tetanus Toxoid Vaccination: No Hx Influenza Vaccination: No Hx Pneumococcal Vaccination: No - Home Medications Home Medications: Ambulatory Orders Medication Instructions Recorded Aspirin [Aspirin Chewable] 81 mg PO DAILY #30 06/22/17 Atorvastatin [Lipitor] 40 mg PO HS #30 tab 06/22/17 Carvedilol [Coreg] 12.5 mg PO Q12 #60 tab 06/22/17 Clopidogrel [Plavix] 75 mg PO DAILY #30 tab 06/22/17 Furosemide [Lasix] 20 mg PO BID #90 tab 06/22/17 Insulin Detemir [Levemir] 10 units SC HS 30 Days vial 06/22/17 Lisinopril [Zestril] 40 mg PO DAILY@0900 30 Days tab 06/22/17 Sertraline [Zoloft] 50 mg PO HS #30 tab 06/22/17 Spironolactone [Aldactone] 12.5 mg PO BID #30 tab 06/22/17 traMADol [Ultram] 50 mg PO Q8H PRN #15 tab 06/22/17 traMADol [Ultram] 50 mg PO TID PRN #15 tab 11/09/17 - Allergies Allergies/Adverse Reactions: Allergies Allergy/AdvReac Type Severity Reaction Status Date / Time No Known Allergies Allergy Verified 05/14/16 14:21 Review of Systems ROS Statement: Except As Marked, All Systems Reviewed And Found Negative Constitutional: Negative for: Fever, Chills Cardiovascular: Negative for: Chest Pain Respiratory: Negative for: Shortness of Breath Gastrointestinal: Negative for: Nausea, Vomiting Musculoskeletal: Positive for: Foot Pain (wound of left foot) Physical Exam - Reviewed Nursing Documentation Reviewed: Yes Vital Signs Reviewed: Yes - Physical Exam Appears: Positive for: Well, Non-toxic, No Acute Distress Skin: Negative for: Rash Eye Exam: Positive for: Normal appearance Cardiovascular/Chest: Positive for: Regular Rate, Rhythm Respiratory: Positive for: Normal Breath Sounds Gastrointestinal/Abdominal: Positive for: Soft. Negative for: Tenderness Extremity: Positive for: Other (Superficial ulcer noted to lateral aspect of distal left first metatarsal, no surrounding erythema, mild tenderness to palpation, no active bleeding or drainage) Neurologic/Psych: Positive for: Alert, Oriented - Laboratory Results Result Diagrams: 11/09/17 18:41 11/09/17 18:41 - ECG O2 Sat by Pulse Oximetry: 99 Pulse Ox Interpretation: Normal - Other Rad Left foot x-ray X-Ray: Interpreted by Me, Viewed By Me X-Ray Interpretation: no acute fx, no dis, no gas Medical Decision Making Medical Decision Makin67 year old female with chronic wound to left foot Plan: CBC CMP Left foot x-ray PO tylenol and tramadol Podiatry consult Podiatry resident, Dr. Shook came to bedside to see patient. Dressing was applied by resident. Patient was instructed to follow up next week with wound care center. Lab results were reviewed by fha underwriter and ED attending Dr. Puri. Laboratory results were also discussed with patient and zinqdcps-oy-uwo at bedside. Potassium slightly elevated at 5.2. Creatinine slightly elevated at 1.7. Patient currently on spironolactone but no longer takes Lasix. Copy of labs provided, advised repeat CMP in 2 days with PMD. Prescription for tramadol given for pain relief. Disposition - Clinical Impression Clinical Impression: Diabetic foot ulcer - Patient ED Disposition Is Patient to be Admitted: No Counseled Patient/Family Regarding: Studies Performed, Diagnosis, Need For Followup, Rx Given - Disposition Referrals: Jun Reynoso DPM [[facility]] - Disposition: Routine/Home Disposition Time: 20:08 Condition: STABLE Additional Instructions: Tick prescription pain medications along with Tylenol every 6 hours. Follow up next week at wound care center with Dr. Reynoso, call in the morning to arrange for appointment. Prescriptions: traMADol [Ultram] 50 mg PO TID PRN #15 tab PRN Reason: Pain, Moderate (4-7) Instructions: Diabetic Foot Ulcers (ED), Diabetic Foot Care (ED) Forms: [employer] ([place]) Print Language: ERITREAN Results - Lab Results Lab Results: 11/09/17 11/09/17 18:41 18:41 WBC 7.0 RBC 3.41 L Hgb 10.3 L Hct 31.1 L MCV 91.0 D MCH 30.1 MCHC 33.1 RDW 15.2 H Plt Count 197 MPV 10.9 Neut % (Auto) 61.7 Lymph % (Auto) 25.4 [place] % (Auto) 6.5 Eos % (Auto) 4.8 H Baso % (Auto) 1.6 Neut # 4.3 Lymph # 1.8 [place] # 0.5 Eos # 0.3 Baso # 0.1 Sodium 141 Potassium 5.2 H Chloride 109 H Carbon Dioxide 19 L Anion Gap 18 BUN 52 H Creatinine 1.7 H Est GFR ( Amer) 36 Est GFR (Non-Af Amer) 30 Random Glucose 253 H Calcium 9.5 Total Bilirubin 0.4 AST 45 H ALT 38 Alkaline Phosphatase 91 Total Protein 7.5 Albumin 3.8 Globulin 3.7 Albumin/Globulin Ratio 1.0
[2017-11-09 17:29] VITALS: BP 133/58; PULSE 86; RESP 16; TEMP 97.7; O2SAT 99
[2017-11-09 18:51] LABS: BASO # 0.1 K/uL (0.0-0.2); BASO % 1.6 % (0.0-2.0); EOS # 0.3 K/uL (0.0-0.7); EOS % 4.8 % (0.0-4.0); HEMOGLOBIN 10.3 g/dL (12.0-16.0); LYMPH # 1.8 K/uL (1.0-4.3); LYMPH % 25.4 % (20.0-40.0); MEAN CORPUSCULAR HEMOGLOBIN 30.1 pg (27.0-31.0); MEAN CORPUSCULAR HGB CONC 33.1 g/dL (33.0-37.0); MEAN PLATELET VOLUME 10.9 fl (7.2-11.7); MONO # 0.5 K/uL (0.0-0.8); MONO % 6.5 % (0.0-10.0); NEUT # 4.3 K/uL (1.8-7.0); NEUT % 61.7 % (50.0-75.0); NRBC % 0.1 % (0.0-0.0); RBC 3.41 Mil/uL (3.80-5.20); RED CELL DISTRIBUTION WIDTH 15.2 % (11.5-14.5)
--- NOTE | 2017-11-09 19:02 | CP.PCM.CON ---
History of Present Illness - History of Present Illness History of Present Illness: Consult Note for Podiatry- Dr. Reynoso 67 y.o female with PMHx of DM2, HTN, HLD, CA, CVA, chronic back pain seen and evaluated in ER for left foot wound. Patient is accompanied by her daughter-in- law. Patient reports having a wound there for the past 2 weeks. It started as a small dot and has progressively looking bigger. Patient reports that she has been in another hospital for catheterization and has missed her wound care appointments with Dr. Reynoso at [facility] wound care. Patient denies drainage or odor. Patient does report pain to the left foot. Reports a constant pain to the left foot. She denies n/v/f/sob/cp/chills or f. PMH: DM2, HTN, HLD, CA, CVA, chronic back pain PSH: catherterization; left foot surgery: partial resection of distal left 1st metatarsal, partial resection of base of proximal phalanx, excision of left tibial sesamoid and debridement of ulcers FH: [place] - mother SH: former smoker-1/2 ppd for 25 years, no ETOH, no illicit drug use Meds: see med list All: NKDA Past Patient History - Infectious Disease Hx of Infectious Diseases: None - Tetanus Immunizations Tetanus Immunization: Unknown - Past Medical History & Family History Past Medical History?: Yes - Past Social History Alcohol: None Drugs: Denies - CARDIAC Hx Hypercholesterolemia: Yes Hx Hypertension: Yes - PULMONARY Hx Respiratory Disorders: No - NEUROLOGICAL Hx Neurological Disorder: Yes HX Cerebrovascular Accident: Yes (left sided weakness) - HEENT Hx HEENT Problems: No - ENDOCRINE/METABOLIC Hx Endocrine Disorders: Yes Hx Diabetes Mellitus Type 2: Yes - HEMATOLOGICAL/ONCOLOGICAL Hx Blood Disorders: No - INTEGUMENTARY Hx Dermatological Problems: No - MUSCULOSKELETAL/RHEUMATOLOGICAL Hx Musculoskeletal Disorders: Yes Hx Falls: Yes (fell 6 months ago) Other/Comment: hx of chronic back pain - GASTROINTESTINAL Hx Gastrointestinal Disorders: No - GENITOURINARY/GYNECOLOGICAL Hx Genitourinary Disorders: No - PSYCHIATRIC Hx Psychophysiologic Disorder: No Hx Substance Use: No - SURGICAL HISTORY Hx Coronary Stent: Yes - ANESTHESIA Hx Anesthesia: Yes Hx Anesthesia Reactions: No Meds Home Medications: Home Medication List Medication Instructions Recorded Confirmed Type traMADol [Ultram] 50 mg PO TID PRN #15 tab 11/09/17 Rx Allergies/Adverse Reactions: Allergies Allergy/AdvReac Type Severity Reaction Status Date / Time No Known Allergies Allergy Verified 05/14/16 14:21 Physical Exam - Constitutional Appears: Well, Non-toxic, Toxic - Extremities Exam Extremities exam: Negative for: calf tenderness Additional comments: LLE focused physical exam: Vasc: DP pulse nonpalpable. PT pulse weakly palpable 1/4. CFT <3 seconds to digits. TG cool to cool. No edema noted Neuro: Gross sensation intact Derm: Ulceration measuring .4 cm x 2 cm x . 2 cm with wound base granular and hyperkeratotic rim. No drainage, purulence, malodor noted. No erythema, no streaking. No increase warmth. No clinical signs of infection. Ortho: Mild tenderness to palpation medial 1st met head - Neurological Exam Neurological exam: Alert, Oriented x3 - Psychiatric Exam Psychiatric exam: Normal Affect, Normal Mood Results - Vital Signs Recent Vital Signs: Last Vital Signs Temp 97.7 F 11/09/17 17:28 Pulse 86 11/09/17 17:28 Resp 16 11/09/17 17:28 BP 133/58 L 11/09/17 17:28 Pulse Ox 99 11/09/17 17:28 - Labs Result Diagrams: 11/09/17 18:41 11/09/17 18:41 Assessment & Plan - Assessment and Plan (Free Text) Assessment: 67 y.o female with PMHx of DM2, HTN, HLD, CA, CVA, chronic back pain with left foot wound- no clinical signs of infection Plan: Patient seen and evaluated Discussed plan in detail with attending Dr. Reynoso Charts, labs, vitals reviewed (afebrile, absent leukocytosis) X-rays reviewed- s/p left foot surgery, no gas emphysema, no acute OM changes- read by me No clinical signs of infection to wound. Provided local wound care at bedside. Wound cleansed with saline, dressed with bacitracin, dsd and cling Patient told to change dressing daily, to cleanse with saline, dressed with bacitracin, dsd, and cling WBAT in surgical shoe to the L foot Will f/u with Dr. Reynoso in wound care next Wednesday Thank you for the consult
[2017-11-09 19:07] LABS: ALBUMIN 3.8 g/dL (3.5-5.0); CALCIUM 9.5 mg/dL (8.4-10.2)
--- NOTE | 2017-11-10 13:12 | RAD ---
PROCEDURE: Left Foot Radiographs. HISTORY: open wound COMPARISON: 09/22/2017 FINDINGS: BONES: No acute fracture. Irregular contour of the distal medial 1st metatarsal. Irregular contour of most distal lateral 1st metatarsal extending to the metatarsal head. Irregular contour of medial proximal aspect 1st proximal phalanx. This is of also unchanged from prior. JOINTS: Lateral subluxation at 1st MTP. This is unchanged from prior. The remaining joint spaces and articular surfaces are intact. SOFT TISSUES: Soft tissue swelling over 1st MTP. OTHER FINDINGS: None. IMPRESSION: Compared to 09/13, no significant interval change. Irregularity distal 1st metatarsal and medial proximal 1st proximal phalanx. Possible postoperative change. Rule out osteomyelitis.
== END 2017-11-09 20:26 | disposition home or self-care (01) ==
LOC: H.ER 16:46
DX: E11.621 Type 2 diabetes mellitus with foot ulcer (principal); I10 Essential (primary) hypertension; Z86.73 Personal history of transient ischemic attack (TIA), and cerebral infarction without residual deficits; G89.29 Other chronic pain; Z48.00 Encounter for change or removal of nonsurgical wound dressing

== ENCOUNTER 2018-01-14 12:43 | Inpatient (IN) | payer SELFPAY ==
[2018-01-14 12:43] VITALS: BMI 23.8
[2018-01-14 14:29] LABS: BASO # 0.1 K/uL (0.0-0.2); BASO % 0.9 % (0.0-2.0); EOS # 0.1 K/uL (0.0-0.7); EOS % 1.3 % (0.0-4.0); HEMOGLOBIN 10.1 g/dL (12.0-16.0); LYMPH % 18.1 % (20.0-40.0); MEAN CORPUSCULAR HEMOGLOBIN 28.8 pg (27.0-31.0); MEAN CORPUSCULAR HGB CONC 32.7 g/dL (33.0-37.0); MEAN PLATELET VOLUME 9.4 fl (7.2-11.7); MONO # 0.8 K/uL (0.0-0.8); MONO % 7.3 % (0.0-10.0); NEUT # 8.2 K/uL (1.8-7.0); NEUT % 72.4 % (50.0-75.0); RBC 3.51 Mil/uL (3.80-5.20); RED CELL DISTRIBUTION WIDTH 12.8 % (11.5-14.5); WHITE BLOOD COUNT 11.3 K/uL (4.8-10.8)
[2018-01-14 14:34] LABS: MEAN CELL VOLUME 88.2 fl (81.0-99.0)
[2018-01-14 14:38] LABS: CALCIUM 9.3 mg/dL (8.4-10.2)
[2018-01-14 14:42] LABS: PARTIAL THROMBOPLASTIN TIME 34.5 Seconds (25.6-37.1); PROTHROMBIN TIME 11.1 Seconds (9.8-13.1)
--- NOTE | 2018-01-14 14:59 | ED PDOC ---
Lower Extremity Pain/Injury Time Seen by Provider: 01/14/18 13:16 Chief Complaint (Nursing): Lower Extremity Problem/Injury History Per: Patient (sent here from the wound clinic because of concerns of gangrene in the toes of the foot affected by DM vascular disease. ) Past Medical History Reviewed: Historical Data, Nursing Documentation, Vital Signs Vital Signs: Last Vital Signs Temp 98.2 F 01/14/18 12:49 Pulse 74 01/14/18 12:49 Resp 18 01/14/18 12:49 BP 103/62 01/14/18 12:49 Pulse Ox 98 01/14/18 12:49 - Medical History PMH: CAD, CVA, Diabetes, HTN, Hypercholesterolemia - Surgical History Surgical History: Coronary Stent - Family History Family History: States: Unknown Family Hx - Immunization History Hx Tetanus Toxoid Vaccination: No Hx Influenza Vaccination: No Hx Pneumococcal Vaccination: No - Home Medications Home Medications: Ambulatory Orders Medication Instructions Recorded Aspirin [Aspirin Chewable] 81 mg PO DAILY #30 06/22/17 Atorvastatin [Lipitor] 40 mg PO HS #30 tab 06/22/17 Carvedilol [Coreg] 12.5 mg PO Q12 #60 tab 06/22/17 Clopidogrel [Plavix] 75 mg PO DAILY #30 tab 06/22/17 Furosemide [Lasix] 20 mg PO BID #90 tab 06/22/17 Insulin Detemir [Levemir] 10 units SC HS 30 Days vial 06/22/17 Lisinopril [Zestril] 40 mg PO DAILY@0900 30 Days tab 06/22/17 Sertraline [Zoloft] 50 mg PO HS #30 tab 06/22/17 Spironolactone [Aldactone] 12.5 mg PO BID #30 tab 06/22/17 traMADol [Ultram] 50 mg PO Q8H PRN #15 tab 06/22/17 traMADol [Ultram] 50 mg PO TID PRN #15 tab 11/09/17 - Allergies Allergies/Adverse Reactions: Allergies Allergy/AdvReac Type Severity Reaction Status Date / Time No Known Allergies Allergy Verified 05/14/16 14:21 Review of Systems ROS Statement: Except As Marked, All Systems Reviewed And Found Negative Constitutional: Negative for: Fever Musculoskeletal: Positive for: Foot Pain Physical Exam - Reviewed Nursing Documentation Reviewed: Yes Vital Signs Reviewed: Yes - Physical Exam Appears: Positive for: Well, Non-toxic, No Acute Distress Head Exam: Positive for: ATRAUMATIC, NORMAL INSPECTION, NORMOCEPHALIC Skin: Positive for: Normal Color, Warm, DRY Eye Exam: Positive for: EOMI, Normal appearance, PERRL ENT: Positive for: Normal ENT Inspection Neck: Positive for: Normal, Painless ROM Cardiovascular/Chest: Positive for: Regular Rate, Rhythm Respiratory: Positive for: CNT, Normal Breath Sounds Gastrointestinal/Abdominal: Positive for: Normal Exam, Bowel Sounds, Soft Back: Positive for: Normal Inspection Extremity: Positive for: Tenderness, Other (clean ulcer on the left 1st metatarsal; bluish discoloration of the 3rd toe. ) Neurologic/Psych: Positive for: Alert, Oriented - Laboratory Results Result Diagrams: 01/14/18 14:23 01/14/18 14:23 - ECG O2 Sat by Pulse Oximetry: 98 Disposition - Clinical Impression Clinical Impression: Gangrene - Patient ED Disposition Is Patient to be Admitted: Yes Doctor Will See Patient In The: Hospital - Disposition Disposition: Transfer of Care Disposition Time: 15:07 Condition: STABLE Instructions: Gangrene Forms: [employer] ([place])
--- NOTE | 2018-01-14 15:30 | RAD ---
PROCEDURE: Left foot dated 01/14/2018. Three views of the left foot performed. HISTORY: Diabetes mellitus ; ulcer, gangrene COMPARISON: Comparison made with prior radiographs of the left foot 11/09/2017 FINDINGS: BONES: Re- demonstrated is a moderate to fairly significant hallux valgus deformity. Irregular contour distal 1st metatarsal extending to the head of the metatarsal which could represent old postoperative sequela. Clinical correlation recommended. . JOINTS: Note that the distal phalanx of the great toe is poorly delineated due to the aforementioned hallux valgus deformity . There appears to be a localized scan and subcutaneous ulceration involving the medial soft tissues adjacent to the head of the 1st metatarsal. No obvious cortical destructive changes are seen at this time. Soft tissue swelling overlying the distal proximal phalanges left great toe. Note that the possibility of early osteomyelitis cannot be excluded on this study and if there is any concern, consider follow-up MRI. Vascular calcifications are again seen. IMPRESSION: No change moderate hallux valgus deformity or irregular contour distal 1st metatarsal extending to the head of the metatarsal which could represent old postoperative changes. There appears to be a skin surface and subcutaneous ulceration within the medial soft tissues adjacent to the head of the 1st metatarsal. No definitive cortical destructive changes however suspect soft tissue swelling left great toe. Recommend followup MRI to assess for early osteomyelitis which cannot be excluded based on this exam.
--- NOTE | 2018-01-14 15:42 | CP.PCM.CON ---
History of Present Illness - History of Present Illness History of Present Illness: Consult Note for Podiatry- Dr. Reynoso 67 y.o female with PMHx of DM2, HTN, HLD, [place], CVA, chronic back pain seen and evaluated in ER for left foot ulcer and discolored 2nd and 3rd digits. Patient reports that she went to wound care clinic today and was instructed to go to the ED. Patient is known to podiatry service and Dr. Reynoso who has treated her ulceration of left 1st MPJ. Patient reports that she has not followed up with Dr. Reynoso for over 1 month due to transportation issues. Reports that she has been changing her dressing daily with the ointment prescribed. Reports she has continued to wear surgical shoe. Patient reports she decided to come to wound care because she ran out of wound supplies. Today she reports 8/10 pain and points to the pain at the ball of toes 1-3. Patient reports that the discoloration in her toes started 5 days ago. Patient denies any trauma or recent falls. Denies long exposure to cold. Reports being inside most of the time. Patient denies nausea, fever, shortness of breath, chest pains, chills or sob. PMH: DM2, HTN, HLD, DE, CVA, chronic back pain PSH: catherterization; left foot surgery: partial resection of distal left 1st metatarsal, partial resection of base of proximal phalanx, excision of left tibial sesamoid and debridement of ulcers FH: [place] - mother SH: former smoker-1/2 ppd for 25 years, no ETOH, no illicit drug use Meds: see med list All: NKDA Past Patient History - Infectious Disease Hx of Infectious Diseases: None - Tetanus Immunizations Tetanus Immunization: Unknown - Past Medical History & Family History Past Medical History?: Yes - Past Social History Smoking Status: Former Smoker - CARDIAC Hx Hypercholesterolemia: Yes Hx Hypertension: Yes - PULMONARY Hx Respiratory Disorders: No - NEUROLOGICAL Hx Neurological Disorder: Yes HX Cerebrovascular Accident: Yes (left sided weakness) - HEENT Hx HEENT Problems: No - ENDOCRINE/METABOLIC Hx Endocrine Disorders: Yes Hx Diabetes Mellitus Type 2: Yes - HEMATOLOGICAL/ONCOLOGICAL Hx Blood Disorders: No - INTEGUMENTARY Hx Dermatological Problems: No - MUSCULOSKELETAL/RHEUMATOLOGICAL Hx Musculoskeletal Disorders: Yes Hx Falls: Yes (fell 6 months ago) Other/Comment: hx of chronic back pain - GASTROINTESTINAL Hx Gastrointestinal Disorders: No - GENITOURINARY/GYNECOLOGICAL Hx Genitourinary Disorders: No - PSYCHIATRIC Hx Psychophysiologic Disorder: No Hx Substance Use: No - SURGICAL HISTORY Hx Coronary Stent: Yes - ANESTHESIA Hx Anesthesia: Yes Hx Anesthesia Reactions: No Meds Allergies/Adverse Reactions: Allergies Allergy/AdvReac Type Severity Reaction Status Date / Time No Known Allergies Allergy Verified 05/14/16 14:21 Physical Exam - Constitutional Appears: Well, Non-toxic, No Acute Distress - Extremities Exam Extremities exam: Positive for: calf tenderness Additional comments: LLE focused physical exam: Vasc: DP pulse nonpalpable. PT pulse weakly palpable, CFT <3 seconds to digits. TG cool to cool. Edema noted to medial aspect of left forefoot Neuro: Gross sensation intact, protective sensation diminished Derm: Ulceration measuring 2.5 cm x 2.5 cm x . 4 cm with 100% fibrous wound base at the medial aspect of the 1st MPJ, severe hallux valgus deformity noted and crossing over 2nd digit. Ulceration has no drainage, no purulence, no odor, periwound slightly erythema, no increase warmth, no fluctance, streaking noted vs erthema noted to dorsum of foot. Superficial ulcerations noted to the 2nd digit secondary to pressure from 1st hallux. Dark, deep blue-christophe purple discoloration noted to the 2nd digits, blue discoloratoin noted to the 3rd digit. Slight macerations to interspaces noted with ulcerations noted to 2nd, 3rd and 4th interspace. Ortho: pain to palpation of medial 1st met head, sub met 1-3, entire digits 1-3 of left foot - Neurological Exam Neurological exam: Alert, Oriented x3 - Psychiatric Exam Psychiatric exam: Normal Affect, Normal Mood Results - Vital Signs Recent Vital Signs: Last Vital Signs Temp 98.2 F 01/14/18 12:49 Pulse 74 01/14/18 12:49 Resp 18 01/14/18 12:49 BP 103/62 01/14/18 12:49 Pulse Ox 98 01/14/18 15:08 - Labs Result Diagrams: 01/14/18 14:23 01/14/18 14:23 Labs: Laboratory Results - last 24 hr 01/14/18 01/14/18 01/14/18 14:23 14:23 14:23 WBC 11.3 H RBC 3.51 L Hgb 10.1 L Hct 30.9 L MCV 88.2 D MCH 28.8 MCHC 32.7 L RDW 12.8 Plt Count 264 MPV 9.4 Neut % (Auto) 72.4 Lymph % (Auto) 18.1 L [place] % (Auto) 7.3 Eos % (Auto) 1.3 Baso % (Auto) 0.9 Neut # (Auto) 8.2 H Lymph # (Auto) 2.0 [place] # (Auto) 0.8 Eos # (Auto) 0.1 Baso # (Auto) 0.1 ESR 66 H PT 11.1 INR 1.0 APTT 34.5 Sodium 141 Potassium 4.8 Chloride 106 Carbon Dioxide 21 L Anion Gap 19 BUN 38 H Creatinine 1.5 H Est GFR ( Amer) 42 Est GFR (Non-Af Amer) 35 POC Glucose (mg/dL) Random Glucose 100 Calcium 9.3 01/14/18 14:43 WBC RBC Hgb Hct MCV MCH MCHC RDW Plt Count MPV Neut % (Auto) Lymph % (Auto) [place] % (Auto) Eos % (Auto) Baso % (Auto) Neut # (Auto) Lymph # (Auto) [place] # (Auto) Eos # (Auto) Baso # (Auto) ESR PT INR APTT Sodium Potassium Chloride Carbon Dioxide Anion Gap BUN Creatinine Est GFR ( Amer) Est GFR (Non-Af Amer) POC Glucose (mg/dL) 71 Random Glucose Calcium Assessment & Plan - Assessment and Plan (Free Text) Assessment: 67 y.o female with PMHx of DM2, HTN, HLD, DE, CVA, chronic back pain seen and evaluated in ER for left foot ulcer and ischemic 2nd and 3rd digits secondary to DM and PVD. Plan: Patient examined and evaluated Discussed plan in detail with attending Dr. Reynoso Labs, chart, vitals reviewed (leukocytosis WBC=11.3, afebrile) Cleansed ulceration and left foot with saline, dressed ulceration with xeroform and dsd Painted interdigital macerations with betadine Painted ischemic toes with betadine, will let air and continue to monitor ischemic changes Mupricin and betadine ordered ABIs/PVR ordered Left foot x-rays ordered- r/o OM Duplex ultrasound ordered- r/o DVT Vascular consulted- recommendations appreciated, thank you Wound culture ordered ID consulted- recommendations appreciated, thank you Thank you for the consult. Podiatry will continue to follow while in house
[2018-01-14] MEDS ORDERED: Povidone Iodine Topical 10% Sol TOP ONE (16:22)
[2018-01-14] MEDS ORDERED: Mupirocin 2% Cream TOP SCH (17:00)
[2018-01-14] MEDS ORDERED: Dextrose 50% SYRINGE Inj (50 ml) IV PRN (17:00)
[2018-01-14] MEDS ORDERED: Glucagon Recombinant 1 mg Inj IM PRN (17:00)
--- NOTE | 2018-01-14 17:27 | CP.PCM.HP ---
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 Pt was last treated for ulceration of left 1st MPJ; she has not follow up since but has been doing daily dressing changes on her own. Pt reports she decided to come to wound care because she ran out of wound supplies and also her pain is out of controll currently at a 8/ 10 especially at the first 3 toes. Pt also has discoloration in her toes that started 5 days ago; denies any trauma or recent falls or long exposure to cold. all other system reviewed and negative. PMHx: DM2, HTN, HLD, [place], CVA, chronic back pain PSHx: catherterization; left foot surgery: partial resection of distal left 1st metatarsal, partial resection of base of proximal phalanx, excision of left tibial sesamoid and debridement of ulcers FH: [place] - mother SH: former smoker-1/2 ppd for 25 years, no ETOH, no illicit drug use Meds: see med list All: NKDA Present on Admission - Present on Admission Any Indicators Present on Admission: Yes History of Uncontrolled Diabetes: Yes Review of Systems - Review of Systems Review of Systems: All systems reviewed, except + stated in HPI, all others negative Past Patient History - Infectious Disease Hx of Infectious Diseases: None - Tetanus Immunizations Tetanus Immunization: Unknown - Past Medical History & Family History Past Medical History?: Yes - Past Social History Smoking Status: Former Smoker - CARDIAC Hx Hypercholesterolemia: Yes Hx Hypertension: Yes - PULMONARY Hx Respiratory Disorders: No - NEUROLOGICAL Hx Neurological Disorder: Yes - HEENT Hx HEENT Problems: No - ENDOCRINE/METABOLIC Hx Endocrine Disorders: Yes - HEMATOLOGICAL/ONCOLOGICAL Hx Blood Disorders: No - INTEGUMENTARY Hx Dermatological Problems: No - MUSCULOSKELETAL/RHEUMATOLOGICAL Hx Musculoskeletal Disorders: Yes - GASTROINTESTINAL Hx Gastrointestinal Disorders: No - GENITOURINARY/GYNECOLOGICAL Hx Genitourinary Disorders: No - PSYCHIATRIC Hx Psychophysiologic Disorder: No - SURGICAL HISTORY Hx Coronary Stent: Yes - ANESTHESIA Hx Anesthesia: Yes Hx Anesthesia Reactions: No Meds Allergies/Adverse Reactions: Allergies Allergy/AdvReac Type Severity Reaction Status Date / Time No Known Allergies Allergy Verified 05/14/16 14:21 Physical Exam - Constitutional Appears: Non-toxic, No Acute Distress - Head Exam Head Exam: NORMOCEPHALIC - ENT Exam ENT Exam: Mucous Membranes Moist - Respiratory Exam Respiratory Exam: Clear to Auscultation Bilateral, NORMAL BREATHING PATTERN. absent: Rhonchi, Wheezes - Cardiovascular Exam Cardiovascular Exam: REGULAR RHYTHM, +S1, +S2 - GI/Abdominal Exam GI & Abdominal Exam: Normal Bowel Sounds, Soft. absent: Tenderness - Extremities Exam Extremities exam: Positive for: calf tenderness, tenderness Additional comments: DP pulse nonpalpable. Edema noted to medial aspect of left forefoot - Neurological Exam Neurological exam: Alert, CN II-XII Intact, Oriented x3 - Skin Skin Exam: Dry Results - Vital Signs Recent Vital Signs: Last Vital Signs Temp 97.6 F 01/14/18 16:30 Pulse 66 01/14/18 16:30 Resp 20 01/14/18 16:30 BP 173/75 H 01/14/18 16:30 Pulse Ox 97 01/14/18 16:30 - Labs Result Diagrams: 01/14/18 14:23 01/14/18 14:23 Labs: Laboratory Results - last 24 hr 01/14/18 01/14/18 01/14/18 14:23 14:23 14:23 WBC 11.3 H RBC 3.51 L Hgb 10.1 L Hct 30.9 L MCV 88.2 D MCH 28.8 MCHC 32.7 L RDW 12.8 Plt Count 264 MPV 9.4 Neut % (Auto) 72.4 Lymph % (Auto) 18.1 L [place] % (Auto) 7.3 Eos % (Auto) 1.3 Baso % (Auto) 0.9 Neut # (Auto) 8.2 H Lymph # (Auto) 2.0 [place] # (Auto) 0.8 Eos # (Auto) 0.1 Baso # (Auto) 0.1 ESR 66 H PT 11.1 INR 1.0 APTT 34.5 Sodium 141 Potassium 4.8 Chloride 106 Carbon Dioxide 21 L Anion Gap 19 BUN 38 H Creatinine 1.5 H Est GFR ( Amer) 42 Est GFR (Non-Af Amer) 35 POC Glucose (mg/dL) Random Glucose 100 Calcium 9.3 01/14/18 01/14/18 14:43 16:26 WBC RBC Hgb Hct MCV MCH MCHC RDW Plt Count MPV Neut % (Auto) Lymph % (Auto) [place] % (Auto) Eos % (Auto) Baso % (Auto) Neut # (Auto) Lymph # (Auto) [place] # (Auto) Eos # (Auto) Baso # (Auto) ESR PT INR APTT Sodium Potassium Chloride Carbon Dioxide Anion Gap BUN Creatinine Est GFR ( Amer) Est GFR (Non-Af Amer) POC Glucose (mg/dL) 71 54 L Random Glucose Calcium Assessment & Plan - Assessment and Plan (Free Text) Assessment: 67y/o female with PMHx of DM2, HTN, HLD, [place], CVA, chronic back pain presenting with venous insufficiency changes over lapping previous osteo and non healing ulcer. Plan: 1. first, second and third toe venous insufficiency with non-healing ulcer management per podiatry team 2. Insulin Dependent Type 2 Diabetes Pt normally takes 20units of Levemir 10 units novolog will give 10 units of levemir and coverage scale as pt came in with a blood sugar of 45 ACHS monitor 2. CAD continue with aspirin and plavix 3. Systolic CHF last echo 05/22/17 has EF of 20% currently on Carvedilol 3.125 BID furosemide 20mg BID (was previously on spironolactone at 25mg, but d/c'ed by her PCP) 30mg Isosorbide monitrate Was on Lisinopril 5mg daily, but per pt's daugther her last BMP had elevated potassium level and pt's PCP advised pt to hold off taking it until her next lab results will restart lisinopril at this time as K+ is WNL monitor K+ level 4. Depression continue with Fluoxetine 5. HLD continue with Lipitor 40mg at bedtime 6. Diet- Diabetic Diet 7. DVT prohylaxis- Lovenox 40mg SC , as pt GFR is 36
--- NOTE | 2018-01-14 17:37 | US ---
HISTORY: r/o left DVT . PRIORS: None. FINDINGS: 2-D, color and duplex Doppler analysis of the lower extremity venous circulation using routine protocol from the femoral veins through the popliteal veins. Venous compressibility: Normal. Flow and augmentation patterns: Normal. Visualized veins upper third of calf: Normal. Barlow cyst: None. IMPRESSION: No sonographic or Doppler evidence for DVT in left lower extremity.
--- NOTE | 2018-01-14 18:32 | CP.PCM.CON ---
History of Present Illness - History of Present Illness History of Present Illness: discussed on rounds empiric iv rx ordered Past Patient History - Infectious Disease Hx of Infectious Diseases: None - Tetanus Immunizations Tetanus Immunization: Unknown - Past Medical History & Family History Past Medical History?: Yes - Past Social History Smoking Status: Former Smoker - CARDIAC Hx Hypercholesterolemia: Yes Hx Hypertension: Yes - PULMONARY Hx Respiratory Disorders: No - NEUROLOGICAL Hx Neurological Disorder: Yes HX Cerebrovascular Accident: Yes (left sided weakness) - HEENT Hx HEENT Problems: No - ENDOCRINE/METABOLIC Hx Endocrine Disorders: Yes Hx Diabetes Mellitus Type 2: Yes - HEMATOLOGICAL/ONCOLOGICAL Hx Blood Disorders: No - INTEGUMENTARY Hx Dermatological Problems: No - MUSCULOSKELETAL/RHEUMATOLOGICAL Hx Musculoskeletal Disorders: Yes Hx Falls: Yes (fell 6 months ago) Other/Comment: hx of chronic back pain - GASTROINTESTINAL Hx Gastrointestinal Disorders: No - GENITOURINARY/GYNECOLOGICAL Hx Genitourinary Disorders: No - PSYCHIATRIC Hx Psychophysiologic Disorder: No Hx Substance Use: No - SURGICAL HISTORY Hx Coronary Stent: Yes - ANESTHESIA Hx Anesthesia: Yes Hx Anesthesia Reactions: No Meds Allergies/Adverse Reactions: Allergies Allergy/AdvReac Type Severity Reaction Status Date / Time No Known Allergies Allergy Verified 05/14/16 14:21 - Medications Medications: Current Medications Aspirin (Aspirin Chewable) 81 mg PO DAILY [facility] Atorvastatin Calcium (Lipitor) 40 mg PO HS [facility] Carvedilol (Coreg) 3.125 mg PO Q12 [facility] Clopidogrel Bisulfate (Plavix) 75 mg PO DAILY [facility] Dextrose (Dextrose 50% Inj) 0 ml IV STAT PRN; Protocol PRN Reason: Hypoglycemia Protocol Dextrose (Glutose 15) 0 gm PO ONCE PRN; Protocol PRN Reason: Hypoglycemia Protocol Fluoxetine HCl (Prozac) 20 mg PO DAILY [facility] Furosemide (Lasix) 20 mg PO BID [facility] Last Admin: 01/14/18 18:14 Dose: 20 mg Glucagon (Glucagen Diagnostic Kit) 0 mg IM STAT PRN; Protocol PRN Reason: Hypoglycemia Protocol Insulin Detemir (Levemir) 10 units SC HS [facility] Insulin Human Regular (Humulin R) 0 units SC ACHS [facility] PRN Reason: Protocol Isosorbide Mononitrate (Imdur) 30 mg PO DAILY [facility] Lisinopril (Zestril) 5 mg PO DAILY [facility] Mupirocin (Bactroban Ointment) 1 applic TOP BID [facility] Results - Vital Signs Recent Vital Signs: Last Vital Signs Temp 97.5 F L 01/14/18 18:10 Pulse 75 01/14/18 18:10 Resp 18 01/14/18 18:10 BP 168/76 H 01/14/18 18:14 Pulse Ox 99 01/14/18 18:10 - Labs Result Diagrams: 01/14/18 14:23 01/14/18 14:23 Labs: Laboratory Results - last 24 hr 01/14/18 01/14/18 01/14/18 14:23 14:23 14:23 WBC 11.3 H RBC 3.51 L Hgb 10.1 L Hct 30.9 L MCV 88.2 D MCH 28.8 MCHC 32.7 L RDW 12.8 Plt Count 264 MPV 9.4 Neut % (Auto) 72.4 Lymph % (Auto) 18.1 L Cascade % (Auto) 7.3 Eos % (Auto) 1.3 Baso % (Auto) 0.9 Neut # (Auto) 8.2 H Lymph # (Auto) 2.0 Cascade # (Auto) 0.8 Eos # (Auto) 0.1 Baso # (Auto) 0.1 ESR 66 H PT 11.1 INR 1.0 APTT 34.5 Sodium 141 Potassium 4.8 Chloride 106 Carbon Dioxide 21 L Anion Gap 19 BUN 38 H Creatinine 1.5 H Est GFR ( Amer) 42 Est GFR (Non-Af Amer) 35 POC Glucose (mg/dL) Random Glucose 100 Calcium 9.3 01/14/18 01/14/18 01/14/18 14:43 16:26 18:01 WBC RBC Hgb Hct MCV MCH MCHC RDW Plt Count MPV Neut % (Auto) Lymph % (Auto) Cascade % (Auto) Eos % (Auto) Baso % (Auto) Neut # (Auto) Lymph # (Auto) Cascade # (Auto) Eos # (Auto) Baso # (Auto) ESR PT INR APTT Sodium Potassium Chloride Carbon Dioxide Anion Gap BUN Creatinine Est GFR ( Amer) Est GFR (Non-Af Amer) POC Glucose (mg/dL) 71 54 L 169 H Random Glucose Calcium
[2018-01-14] MEDS ORDERED: Nitroglycerin 50mg in D5W 50 MG/250 ML BOTTLE IV ONE (19:49)
[2018-01-14] MEDS: Oxycodone/Acetaminophen 5/325 mg Tab PO PRN (20:56)
--- NOTE | 2018-01-14 20:56 | CP.PCM.PCO ---
Addendum Addendum: 01/14/18 20:53 Case discussed with podiatry team. As per Dr. Mcdaniel, patient to be started on nitroglycerin drip and heparin drip, indication: critical limb ischemia. Patient to be transferred to telemetry for this reason. Orders have been placed and were reviewed with pharmacy. Geovani PGY2
[2018-01-14] MEDS: Cefepime 1 GM in Sodium Chloride 0.9% 100 ML IVPB SCH (20:57)
[2018-01-14] MEDS: Heparin 25,000units in D5W 25,000 UNITS/250 ML BAG IV SCH (22:35)
[2018-01-14] MEDS: Insulin Regular 100 units/ml SC SCH (23:00)
[2018-01-14] MEDS: Insulin Detemir 100 Units/ml Inj SC SCH (23:00)
[2018-01-15] MEDS: Oxycodone/Acetaminophen 5/325 mg Tab PO PRN ×4 (03:44→21:42)
[2018-01-15 06:02] LABS: HEMOGLOBIN 9.9 g/dL (12.0-16.0); MEAN CELL VOLUME 88.8 fl (81.0-99.0); MEAN CORPUSCULAR HEMOGLOBIN 29.6 pg (27.0-31.0); MEAN CORPUSCULAR HGB CONC 33.4 g/dL (33.0-37.0); RBC 3.35 Mil/uL (3.80-5.20); RED CELL DISTRIBUTION WIDTH 13.2 % (11.5-14.5); WHITE BLOOD COUNT 9.4 K/uL (4.8-10.8)
[2018-01-15 06:12] LABS: ALB/GLOB RATIO 0.9 (1.0-2.1); ALBUMIN 3.3 g/dL (3.5-5.0)
[2018-01-15] MEDS: Insulin Regular 100 units/ml SC SCH ×4 (06:47→21:33)
[2018-01-15] MEDS: Cefepime 1 GM in Sodium Chloride 0.9% 100 ML IVPB SCH ×2 (08:59→21:31)
[2018-01-15] MEDS ORDERED: Povidone Iodine Topical 10% Sol ONE (09:23)
--- NOTE | 2018-01-15 09:25 | CP.PCM.PN ---
Subjective - Date & Time of Evaluation Date of Evaluation: 01/15/18 Time of Evaluation: 10:50 - Subjective Subjective: Pt seen this am prior to vascular study; she was seen again and evaluated later this afternoon, sitting comfortably in bed and eating lunch. No acute events overnight. Objective - Vital Signs/Intake and Output Vital Signs (last 24 hours): Temp Pulse Resp BP Pulse Ox 97.9 F 67 18 113/65 98 01/15/18 08:44 01/15/18 09:02 01/15/18 08:44 01/15/18 09:02 01/15/18 08:44 Intake and Output: 01/15/18 01/15/18 06:59 18:59 Intake Total 498 Balance 498 - Medications Medications: Current Medications Aspirin (Aspirin Chewable) 81 mg PO DAILY [facility] Last Admin: 01/15/18 09:00 Dose: 81 mg Atorvastatin Calcium (Lipitor) 40 mg PO HS [facility] Last Admin: 01/14/18 21:05 Dose: 40 mg Carvedilol (Coreg) 3.125 mg PO Q12 [facility] Last Admin: 01/15/18 09:01 Dose: 3.125 mg Clopidogrel Bisulfate (Plavix) 75 mg PO DAILY [facility] Last Admin: 01/15/18 09:02 Dose: 75 mg Dextrose (Dextrose 50% Inj) 0 ml IV STAT PRN; Protocol PRN Reason: Hypoglycemia Protocol Dextrose (Glutose 15) 0 gm PO ONCE PRN; Protocol PRN Reason: Hypoglycemia Protocol Fluoxetine HCl (Prozac) 20 mg PO DAILY [facility] Last Admin: 01/15/18 09:02 Dose: 20 mg Furosemide (Lasix) 20 mg PO BID [facility] Last Admin: 01/15/18 09:01 Dose: 20 mg Glucagon (Glucagen Diagnostic Kit) 0 mg IM STAT PRN; Protocol PRN Reason: Hypoglycemia Protocol Cefepime HCl 1 gm/ Sodium (Chloride) 100 mls @ 100 mls/hr IVPB Q12 [facility] PRN Reason: Protocol Last Admin: 01/15/18 08:59 Dose: 100 mls/hr Vancomycin HCl 1 gm/ Sodium (Chloride) 250 mls @ 166.667 mls/hr IVPB DAILY [facility] PRN Reason: Protocol Last Admin: 01/15/18 09:02 Dose: 166.667 mls/hr Nitroglycerin/Dextrose (Nitroglycerin 50 Mg/250 Ml D5w) 50 mg in 250 mls @ 3 mls/hr IV .Q24H ONE; 10 MCG/MIN PRN Reason: Protocol Stop: 01/15/18 19:48 Last Admin: 01/14/18 22:44 Dose: 3 mls/hr Heparin Sodium/Dextrose (Heparin 25,000 Units/250ml In D5w) 25,000 units in 250 mls @ 7 mls/hr IV .Q24H [facility] PRN Reason: Protocol Last Admin: 01/14/18 22:35 Dose: 7 mls/hr Insulin Detemir (Levemir) 10 units SC [facility] Last Admin: 01/14/18 23:00 Dose: 10 units Insulin Human Regular (Humulin R) 0 units SC [facility] PRN Reason: Protocol Last Admin: 01/15/18 06:47 Dose: Not Given Isosorbide Mononitrate (Imdur Er) 30 mg PO DAILY [facility] Last Admin: 01/15/18 09:01 Dose: 30 mg Lisinopril (Zestril) 5 mg PO DAILY [facility] Last Admin: 01/15/18 09:02 Dose: 5 mg Mupirocin (Bactroban Ointment) 1 applic TOP DAILY [facility] Last Admin: 01/15/18 08:57 Dose: 1 applic Oxycodone/Acetaminophen (Percocet 5/325 Mg Tab) 1 tab PO Q4 PRN PRN Reason: Pain, moderate (4-7) Stop: 01/17/18 20:47 Last Admin: 01/15/18 03:44 Dose: 1 tab Oxycodone/Acetaminophen (Percocet 5/325 Mg Tab) 2 tab PO Q6 PRN PRN Reason: Pain, severe (8-10) Stop: 01/17/18 20:48 Last Admin: 01/15/18 09:08 Dose: 2 tab - Labs Labs: 01/15/18 05:56 01/15/18 05:56 PT 11.1 Seconds (9.8-13.1) 01/14/18 14:23 INR 1.0 (0.9-1.2) 01/14/18 14:23 APTT 60.3 Seconds (25.6-37.1) H D 01/15/18 05:56 - Constitutional Appears: Non-toxic, No Acute Distress - Eye Exam Eye Exam: Normal appearance - ENT Exam ENT Exam: Mucous Membranes Moist - Respiratory Exam Respiratory Exam: Clear to Ausculation Bilateral, NORMAL BREATHING PATTERN. absent: Respiratory Distress - Cardiovascular Exam Cardiovascular Exam: REGULAR RHYTHM, +S1, +S2 - GI/Abdominal Exam GI & Abdominal Exam: Soft, Normal Bowel Sounds - Extremities Exam Additional comments: discoloration to 1,2,3 toes of left foot DP pulse not palpable - Neurological Exam Neurological Exam: Alert, Awake, Oriented x3 - Psychiatric Exam Psychiatric exam: Normal Mood - Skin Skin Exam: Normal Color Assessment and Plan - Assessment and Plan (Free Text) Assessment: 67 yo F with PMHx of DM2, HTN, HLD, [place], CVA, chronic back pain, admitted with venous insufficiency changes, limb ischemia. Plan: # Limb Ischemia - Primary management by podiatry team - Vascular consult - Pt on heparin drip at 7 ml/hr; PTT today at noon and adjust if necessary # Insulin Dependent Type 2 Diabetes - Levemir 10U HS - Hypoglycemia protocol and insulin coverage scale - Accuchecks ACHS - Diabetic diet # Coronary Artery Disease - Continue w/ aspirin and plavix # Systolic CHF Last echo 05/22/17 showed EF of 20%. -Continue carvedilol 3.125 BID -Continue furosemide 20mg BID -30 mg isosorbide mononitrate -Lisinopril 5mg; monitor K # Depression - Continue with Fluoxetine # HLD - Continue with Lipitor 40mg HS # DVT prophylaxis - pt is on heparin
--- NOTE | 2018-01-15 09:32 | RAD ---
PROCEDURE: Left left foot dated 01/14/2018 at 1737 hours HISTORY: h/o OM, r/o OM left foot COMPARISON: Comparison made with prior radiographs 01/15/2020 18 at 1504 hours FINDINGS: BONES: Re- demonstrated is a moderate - to fairly significant hallux valgus deformity. Irregular contour distal 1st metatarsal extending to the head of the metatarsal which could represent old postoperative sequela. Clinical correlation recommended. . JOINTS: Note that the distal phalanx of the great toe is poorly delineated due to the aforementioned hallux valgus deformity . Localized skin surface and subcutaneous ulceration involving the medial soft tissues adjacent to the head of the 1st metatarsal. No obvious cortical destructive changes are seen at this time. Soft tissue swelling overlying the distal proximal phalanges left great toe. Note that the possibility of early osteomyelitis cannot be excluded on this study and if there is any concern, consider follow-up MRI. SOFT TISSUES: As above. Vascular calcifications OTHER FINDINGS: None. IMPRESSION: Skin surface and subcutaneous ulceration within the medial soft tissues adjacent to the head of the 1st metatarsal. No definitive cortical destructive changes however suspect soft tissue swelling left great toe. Recommend followup MRI to assess for early osteomyelitis which cannot be excluded based on this exam. No change moderate hallux valgus deformity or irregular contour distal 1st metatarsal extending to the head of the metatarsal which could represent old postoperative changes.
--- NOTE | 2018-01-15 09:42 | CARD ---
APPROVED REPORT EKG Measurement Heart [id number] <Conclusion> Normal sinus rhythm Inferior infarct, age undetermined Possible anterolateral infarct, age undetermined Abnormal ECG
--- NOTE | 2018-01-15 11:55 | CP.PCM.PN ---
Subjective - Date & Time of Evaluation Date of Evaluation: 01/15/18 Time of Evaluation: 09:00 - Subjective Subjective: Podiatry Progress Note for Dr. Reynoso 67 y.o female with PMHx of DM2, HTN, HLD, MO, CVA, chronic back pain seen and evaluated at bedside with attending for left foot ulcer and discolored 1st, 2nd and 3rd digits. Patient is seen resting comfortably in bed, in NAD, and AA0x3. Daughter in law is seen with patient at bedside during visitation. Per daughter in law, patient had two heart attacks in the past. Were in talks about getting CABG but did not get CABG procedure done during her hospital stay at previous hospital. And does not know the reasoning. Patient denies nausea, fever, shortness of breath, chest pains, chills or sob. New new pedal complaints at this time. Reports same pain to the left foot. Objective - Vital Signs/Intake and Output Vital Signs (last 24 hours): Temp Pulse Resp BP Pulse Ox 97.9 F 67 18 113/65 98 01/15/18 08:44 01/15/18 09:02 01/15/18 08:44 01/15/18 09:02 01/15/18 08:44 Intake and Output: 01/15/18 01/15/18 06:59 18:59 Intake Total 498 Balance 498 - Medications Medications: Current Medications Aspirin (Aspirin Chewable) 81 mg PO DAILY [facility] Last Admin: 01/15/18 09:00 Dose: 81 mg Atorvastatin Calcium (Lipitor) 40 mg PO HS [facility] Last Admin: 01/14/18 21:05 Dose: 40 mg Carvedilol (Coreg) 3.125 mg PO Q12 [facility] Last Admin: 01/15/18 09:01 Dose: 3.125 mg Clopidogrel Bisulfate (Plavix) 75 mg PO DAILY [facility] Last Admin: 01/15/18 09:02 Dose: 75 mg Dextrose (Dextrose 50% Inj) 0 ml IV STAT PRN; Protocol PRN Reason: Hypoglycemia Protocol Dextrose (Glutose 15) 0 gm PO ONCE PRN; Protocol PRN Reason: Hypoglycemia Protocol Fluoxetine HCl (Prozac) 20 mg PO DAILY [facility] Last Admin: 01/15/18 09:02 Dose: 20 mg Furosemide (Lasix) 20 mg PO BID [facility] Last Admin: 01/15/18 09:01 Dose: 20 mg Glucagon (Glucagen Diagnostic Kit) 0 mg IM STAT PRN; Protocol PRN Reason: Hypoglycemia Protocol Cefepime HCl 1 gm/ Sodium (Chloride) 100 mls @ 100 mls/hr IVPB Q12 [facility] PRN Reason: Protocol Last Admin: 01/15/18 08:59 Dose: 100 mls/hr Vancomycin HCl 1 gm/ Sodium (Chloride) 250 mls @ 166.667 mls/hr IVPB DAILY [facility] PRN Reason: Protocol Last Admin: 01/15/18 09:02 Dose: 166.667 mls/hr Nitroglycerin/Dextrose (Nitroglycerin 50 Mg/250 Ml D5w) 50 mg in 250 mls @ 3 mls/hr IV .Q24H ONE; 10 MCG/MIN PRN Reason: Protocol Stop: 01/15/18 19:48 Last Admin: 01/14/18 22:44 Dose: 3 mls/hr Heparin Sodium/Dextrose (Heparin 25,000 Units/250ml In D5w) 25,000 units in 250 mls @ 7 mls/hr IV .Q24H [facility] PRN Reason: Protocol Last Admin: 01/14/18 22:35 Dose: 7 mls/hr Insulin Detemir (Levemir) 10 units SC HS [facility] Last Admin: 01/14/18 23:00 Dose: 10 units Insulin Human Regular (Humulin R) 0 units SC ACHS [facility] PRN Reason: Protocol Last Admin: 01/15/18 06:47 Dose: Not Given Isosorbide Mononitrate (Imdur Er) 30 mg PO DAILY [facility] Last Admin: 01/15/18 09:01 Dose: 30 mg Lisinopril (Zestril) 5 mg PO DAILY [facility] Last Admin: 01/15/18 09:02 Dose: 5 mg Mupirocin (Bactroban Ointment) 1 applic TOP DAILY [facility] Last Admin: 01/15/18 08:57 Dose: 1 applic Oxycodone/Acetaminophen (Percocet 5/325 Mg Tab) 1 tab PO Q4 PRN PRN Reason: Pain, moderate (4-7) Stop: 01/17/18 20:47 Last Admin: 01/15/18 03:44 Dose: 1 tab Oxycodone/Acetaminophen (Percocet 5/325 Mg Tab) 2 tab PO Q6 PRN PRN Reason: Pain, severe (8-10) Stop: 01/17/18 20:48 Last Admin: 01/15/18 09:08 Dose: 2 tab - Labs Labs: 01/15/18 05:56 01/15/18 05:56 PT 11.1 Seconds (9.8-13.1) 01/14/18 14:23 INR 1.0 (0.9-1.2) 01/14/18 14:23 APTT 60.3 Seconds (25.6-37.1) H D 01/15/18 05:56 - Constitutional Appears: Well, Non-toxic, No Acute Distress - Extremities Exam Additional comments: LLE focused physical exam: Vasc: DP pulse nonpalpable. PT pulse weakly palpable, CFT <3 seconds to digits. TG cool to cool. Edema noted to medial aspect of left forefoot Neuro: Gross sensation intact, protective sensation diminished Derm: Ulceration measuring 2.5 cm x 2.5 cm x . 4 cm with 100% fibrous wound base at the medial aspect of the 1st MPJ, severe hallux valgus deformity noted and crossing over 2nd digit. Ulceration has no drainage, no purulence, no odor, periwound slightly erythema, no increase warmth, no fluctance, streaking noted vs erthema noted to dorsum of foot. Superficial ulcerations noted to the 2nd digit secondary to pressure from 1st hallux. Dark, deep blue-christophe purple discoloration noted to the 2nd digits, blue discoloratoin noted to the 3rd digit. The 2nd digit is darker compared to yesterday. Slight macerations to interspaces noted with ulcerations noted to 2nd, 3rd and 4th interspace. Ortho: pain to palpation of medial 1st met head, sub met 1-3, entire digits 1-3 of left foot, patient has generalize pain to the LE extremity Assessment and Plan - Assessment and Plan (Free Text) Assessment: 67 y.o female with PMHx of DM2, HTN, HLD, MO, CVA, chronic back pain seen and evaluated in ER for left foot ulcer and ischemic 1st 2nd and 3rd digits secondary to DM and PVD. Plan: Patient examined and evaluated Discussed plan in detail with attending Dr. Reynoso Labs, chart, vitals reviewed (leukocytosis WBC=9.4, afebrile) Cleansed ulceration and left foot with saline, dressed ulceration with xeroform and dsd Painted interdigital macerations with betadine Painted ischemic toes with betadine, will let air and continue to monitor ischemic changes Will continue to monitor digits for demarcation Waiting for vascular recommendations ABIs/PVR ordered- pending Left foot x-rays ordered-Impression: no definite cortical destructive changes; soft tissue swelling to left great toe; recommend f/u with MRI to assess early OM which can not be excluded base on this exam Duplex ultrasound- negative for DVT -calf tenderness likely secondary to DM and PVD Vascular consulted- recommendations appreciated, thank you -spoke to Dr. Mcdaniel, recommended patient to start nitro and heparin drip ID consulted- spoke to Dr. Palacios, recommended patient to be started on Cefepime and Vanco Wound culture pending Podiatry will continue to follow while in house
[2018-01-15 12:38] LABS: INR 1.1 (0.9-1.2); PARTIAL THROMBOPLASTIN TIME 49.3 Seconds (25.6-37.1); PROTHROMBIN TIME 11.7 Seconds (9.8-13.1)
[2018-01-15] MEDS: Insulin Detemir 100 Units/ml Inj SC SCH (21:32)
[2018-01-16] MEDS: Oxycodone/Acetaminophen 5/325 mg Tab PO PRN ×2 (05:55→20:12)
[2018-01-16] MEDS: Insulin Regular 100 units/ml SC SCH ×4 (07:16→22:30)
[2018-01-16 08:23] LABS: CALCIUM 9.4 mg/dL (8.4-10.2)
[2018-01-16 08:26] LABS: HEMOGLOBIN 10.6 g/dL (12.0-16.0); MEAN CELL VOLUME 88.1 fl (81.0-99.0); MEAN CORPUSCULAR HEMOGLOBIN 29.4 pg (27.0-31.0); MEAN CORPUSCULAR HGB CONC 33.4 g/dL (33.0-37.0); RBC 3.59 Mil/uL (3.80-5.20); RED CELL DISTRIBUTION WIDTH 12.9 % (11.5-14.5); WHITE BLOOD COUNT 9.5 K/uL (4.8-10.8)
[2018-01-16] MEDS: Cefepime 1 GM in Sodium Chloride 0.9% 100 ML IVPB SCH ×2 (11:26→22:29)
--- NOTE | 2018-01-16 12:54 | CP.PCM.PN ---
Subjective - Date & Time of Evaluation Date of Evaluation: 01/16/18 Time of Evaluation: 12:50 - Subjective Subjective: Podiatry Progress Note- Dr. Reynoso 67 y.o female with PMHx of DM2, HTN, HLD, [place], CVA, chronic back pain seen and evaluated at bedside with attending for left foot ulcer and ischemic 1st, 2nd and 3rd digits, worsening changes. Patient is seen at bedside with family member. Patient seen sitting comfortably in bed, in NAD, and AA0x3. Patient reports she sleep okay last night. Reports that pain wakes her up but with pain medication she would have minimal pain. She denies resting calf pain, no calf pain or tenderness today. Reports the pain is at the foot. Denies nausea, fever , shortness of breath, chest pain, chills or vomiting. Objective - Vital Signs/Intake and Output Vital Signs (last 24 hours): Temp Pulse Resp BP Pulse Ox 97.9 F 71 18 123/75 99 01/16/18 12:32 01/16/18 12:32 01/16/18 12:32 01/16/18 12:32 01/16/18 12:32 Intake and Output: 01/16/18 01/16/18 06:59 18:59 Intake Total 250 Balance 250 - Medications Medications: Current Medications Aspirin (Aspirin Chewable) 81 mg PO DAILY [facility] Last Admin: 01/16/18 09:17 Dose: 81 mg Atorvastatin Calcium (Lipitor) 40 mg PO HS [facility] Last Admin: 01/15/18 21:32 Dose: 40 mg Carvedilol (Coreg) 3.125 mg PO Q12 [facility] Last Admin: 01/16/18 09:18 Dose: 3.125 mg Clopidogrel Bisulfate (Plavix) 75 mg PO DAILY [facility] Last Admin: 01/16/18 09:22 Dose: 75 mg Dextrose (Dextrose 50% Inj) 0 ml IV STAT PRN; Protocol PRN Reason: Hypoglycemia Protocol Dextrose (Glutose 15) 0 gm PO ONCE PRN; Protocol PRN Reason: Hypoglycemia Protocol Fluoxetine HCl (Prozac) 20 mg PO DAILY [facility] Last Admin: 01/16/18 09:21 Dose: 20 mg Furosemide (Lasix) 20 mg PO BID [facility] Last Admin: 01/16/18 09:42 Dose: 20 mg Glucagon (Glucagen Diagnostic Kit) 0 mg IM STAT PRN; Protocol PRN Reason: Hypoglycemia Protocol Cefepime HCl 1 gm/ Sodium (Chloride) 100 mls @ 100 mls/hr IVPB Q12 [facility] PRN Reason: Protocol Last Admin: 01/16/18 11:26 Dose: 100 mls/hr Vancomycin HCl 1 gm/ Sodium (Chloride) 250 mls @ 166.667 mls/hr IVPB DAILY [facility] PRN Reason: Protocol Last Admin: 01/16/18 09:22 Dose: 166.667 mls/hr Heparin Sodium/Dextrose (Heparin 25,000 Units/250ml In D5w) 25,000 units in 250 mls @ 7 mls/hr IV .Q24H [facility] PRN Reason: Protocol Last Titration: 01/16/18 09:29 Dose: Infused Insulin Detemir (Levemir) 10 units SC HS [facility] Last Admin: 01/15/18 21:32 Dose: 10 units Insulin Human Regular (Humulin R) 0 units SC ACHS [facility] PRN Reason: Protocol Last Admin: 01/16/18 07:16 Dose: Not Given Isosorbide Mononitrate (Imdur Er) 30 mg PO DAILY [facility] Last Admin: 01/16/18 09:20 Dose: 30 mg Lisinopril (Zestril) 5 mg PO DAILY [facility] Last Admin: 01/16/18 09:22 Dose: 5 mg Mupirocin (Bactroban Ointment) 1 applic TOP DAILY [facility] Last Admin: 01/16/18 09:18 Dose: 1 applic Oxycodone/Acetaminophen (Percocet 5/325 Mg Tab) 1 tab PO Q4 PRN PRN Reason: Pain, moderate (4-7) Stop: 01/17/18 20:47 Last Admin: 01/15/18 21:42 Dose: 1 tab Oxycodone/Acetaminophen (Percocet 5/325 Mg Tab) 2 tab PO Q6 PRN PRN Reason: Pain, severe (8-10) Stop: 01/17/18 20:48 Last Admin: 01/16/18 05:55 Dose: 2 tab - Labs Labs: 01/16/18 06:15 01/16/18 06:15 PT 11.7 Seconds (9.8-13.1) 01/15/18 12:05 INR 1.1 (0.9-1.2) 01/15/18 12:05 APTT 53.9 Seconds (25.6-37.1) H 01/16/18 06:15 - Constitutional Appears: Well, Non-toxic, No Acute Distress - Extremities Exam Extremities Exam: absent: Calf Tenderness Additional comments: LLE focused physical exam: Vasc: DP pulse nonpalpable. PT pulse weakly palpable, CFT <3 seconds to digits. TG cool to cool. Edema noted to medial aspect of left forefoot Neuro: Gross sensation intact, protective sensation diminished Derm: Ulceration measuring 2.5 cm x 2.5 cm x . 4 cm with 100% fibrous wound base at the medial aspect of the 1st MPJ, severe hallux valgus deformity noted and crossing over 2nd digit. Ulceration has no drainage, no purulence, no odor, periwound slightly erythema, no increase warmth, no fluctance, streaking noted vs erthema noted to dorsum of foot. Superficial ulcerations noted to the 2nd digit secondary to pressure from 1st hallux. Dark, deep blue-christophe purple discoloration noted to the 2nd digits, blue discoloratoin noted to the 3rd digit. The 2nd digit is darker compared to yesterday. Slight macerations to interspaces noted with ulcerations noted to 2nd, 3rd and 4th interspace. Ortho: pain to palpation of medial 1st met head, sub met 1-3, entire digits 1-3 of left foot, patient has generalize pain to the LE extremity - Neurological Exam Neurological Exam: Alert, Awake, Oriented x3 - Psychiatric Exam Psychiatric exam: Normal Affect, Normal Mood Assessment and Plan - Assessment and Plan (Free Text) Assessment: 67 y.o female with PMHx of DM2, HTN, HLD, [place], CVA, chronic back pain seen and evaluated left foot non healing ulcer and ischemic 1st 2nd and 3rd digits secondary to DM and PVD Plan: Patient examined and evaluated Discussed plan in detail with attending Dr. Reynoso Labs, chart, vitals reviewed (leukocytosis WBC=9.5, afebrile) Cleansed ulceration and left foot with saline, dressed ulceration with xeroform and dsd Painted interdigital macerations with betadine Painted ischemic toes with betadine, will let air and continue to monitor ischemic changes Will continue to monitor digits for demarcation Waiting for vascular recommendations ABIs/PVR -pending report L brachial 97 R brachial 101 no appreciable waveforms to the ankle Left foot x-rays ordered-Impression: no definite cortical destructive changes; soft tissue swelling to left great toe; recommend f/u with MRI to assess early OM which can not be excluded base on this exam Duplex ultrasound- negative for DVT Vascular consulted- recommendations appreciated, thank you -spoke to Dr. Mcdaniel is okay to hold nitro drip -instructed to continue heparin drip -patient to be NPO past midnight -plan for angio at noon tomorrow -will assess the patient clinically today ID consulted- spoke to Dr. Palacios, recommended patient to be started on Cefepime and Vanco Wound culture pending Podiatry will continue to follow while in house
[2018-01-16] MEDS: Heparin 25,000units in D5W 25,000 UNITS/250 ML BAG IV SCH ×2 (13:31→13:42)
--- NOTE | 2018-01-16 13:48 | CP.PCM.CON ---
History of Present Illness - History of Present Illness History of Present Illness: 67 y.o female with left foot ulcer and discolored 2nd and 3rd digits. Patient reports that she has not followed up with Dr. Reynoso for over 1 month due to transportation issues. Reports that she has been changing her dressing daily with the ointment prescribed. Patient reports that the discoloration in her toes started 5 days ago. Patient denies any trauma or recent falls. Denies long exposure to cold. Reports being inside most of the time. PMH: DM2, HTN, HLD, MO, CVA, chronic back pain PSH: catherterization; left foot surgery: partial resection of distal left 1st metatarsal, partial resection of base of proximal phalanx, excision of left tibial sesamoid and debridement of ulcers FH: MO - mother SH: former smoker-1/2 ppd for 25 years, no ETOH, no illicit drug use Meds: see med list All: NKDA Review of Systems - Review of Systems All systems: reviewed and no additional remarkable complaints except - Constitutional Constitutional: As Per HPI - EENT Eyes: absent: As Per HPI, Blind Spots, Blurred Vision, Change in Vision, Decreased Night Vision, Diplopia, Discharge, Dry Eye, Exophthalmos, Floaters, Irritation, Itchy Eyes, Loss of Peripheral Vision, Pain, Photophobia, Requires Corrective Lenses, Sees Flashes, Spots in Vision, Tunnel Vision, Other Visual Disturbances, Loss of Vision, Other Ears: absent: As Per HPI, Decreased Hearing, Ear Discharge, Ear Pain, Tinnitus, Abnormal Hearing, Disequilibrium, Dizziness, Other Nose/Mouth/Throat: absent: As Per HPI, Epistaxis, Nasal Congestion, Nasal Discharge, Nasal Obstruction, Nasal Trauma, Nose Pain, Post Nasal Drip, Sinus Pain, Sinus Pressure, Bleeding Gums, Change in Voice, Dental Pain, Dry Mouth, Dysphagia, Halitosis, Hoarsness, Lip Swelling, Mouth Lesions, Mouth Pain, Odynophagia, Sore Throat, Throat Swelling, Tongue Swelling, Facial Pain, Neck Pain, Neck Mass, Other - Breasts Breasts: absent: As Per HPI, Change in Shape, Mass, Pain, Nipple Discharge, Nipple Inversion, Skin Changes, Swelling, Other - Cardiovascular Cardiovascular: As Per HPI - Respiratory Respiratory: absent: As Per HPI, Cough, Dyspnea, Hemoptysis, Dyspnea on Exertion , Wheezing, Snoring, Stridor, Pain on Inspiration, Chest Congestion, Excessive Mucous Production, Change in Mucous Color, Pain with Coughing, Other - Gastrointestinal Gastrointestinal: absent: As Per HPI, Abdominal Pain, Belching, Bloating, Change in Bowel Habits, Change in Stool Character, Coffee Ground Emesis, Constipation, Cramping, Diarrhea, Dyspepsia, Dysphagia, Early Satiety, Excessive Flatus, Fecal Incontinence, Heartburn, Hematemesis, Hematochezia, Loose Stools, Melena, Nausea, Odynophagia, Temesmus, Vomiting, Other - Genitourinary Genitourinary: absent: As Per HPI, Change in Urinary Stream, Difficulty Urinating, Dysuria, Flank Pain, Hematuria, Pyuria, Nocturia, Urinary Incontinence, Urinary Frequency, Urinary Hesitance, Urinary Urgency, Voiding Freq/Small Amts, Freq UTI, Hx Renal/Bladder Calculi, Hx /Renal Surgery, Bladder Distension, Other - Menstruation Menstruation: absent: As Per HPI, Amenorrhea, Amenorrhea/ Control, Currently Menstual, Cycle <21 Days, Cycle >35 Days, Cycle Variable, Menses 1-7 Days, Menses >/= 8 Days, Menses Variable, Cycle > 4 Weeks Between, No Menses for 6 Months, Heavy Menses, Light Menses, Normal Menses, Spotting Between Cycles , S/P Hysterectomy, Menopausal, Post Menopausal, Premenarche, Abnormal Vaginal Bleeding, Dysmenorrhea, Other - Musculoskeletal Musculoskeletal: As Per HPI - Integumentary Integumentary: As Per HPI, Skin Pain, Wounds - Neurological Neurological: As Per HPI - Psychiatric Psychiatric: absent: As Per HPI, Abnormal Sleep Pattern, Anhedonia, Anxiety, Auditory Hallucinations, Behavioral Changes, Change in Appetite, Change in Libido, Confusion, Depression, Difficulty Concentrating, Hallucinations, Homicidal Ideation, Hopelessness, Irritability, Memory Loss, Mood Swings, Panic Attacks, Paranoia, Suicidal Ideation, Visual Hallucinations, Tactile Hallucinations, Other - Endocrine Endocrine: As Per HPI Past Patient History - Infectious Disease Hx of Infectious Diseases: None - Tetanus Immunizations Tetanus Immunization: Unknown - Past Medical History & Family History Past Medical History?: Yes - Past Social History Smoking Status: Former Smoker - CARDIAC Hx Hypercholesterolemia: Yes Hx Hypertension: Yes - PULMONARY Hx Respiratory Disorders: No - NEUROLOGICAL Hx Neurological Disorder: Yes HX Cerebrovascular Accident: Yes (left sided weakness) - HEENT Hx HEENT Problems: No - ENDOCRINE/METABOLIC Hx Endocrine Disorders: Yes Hx Diabetes Mellitus Type 2: Yes - HEMATOLOGICAL/ONCOLOGICAL Hx Blood Disorders: No - INTEGUMENTARY Hx Dermatological Problems: No - MUSCULOSKELETAL/RHEUMATOLOGICAL Hx Musculoskeletal Disorders: Yes Hx Falls: Yes (fell 6 months ago) Other/Comment: hx of chronic back pain - GASTROINTESTINAL Hx Gastrointestinal Disorders: No - GENITOURINARY/GYNECOLOGICAL Hx Genitourinary Disorders: No - PSYCHIATRIC Hx Psychophysiologic Disorder: No Hx Substance Use: No - SURGICAL HISTORY Hx Coronary Stent: Yes - ANESTHESIA Hx Anesthesia: Yes Hx Anesthesia Reactions: No Meds Allergies/Adverse Reactions: Allergies Allergy/AdvReac Type Severity Reaction Status Date / Time No Known Allergies Allergy Verified 05/14/16 14:21 - Medications Medications: Current Medications Aspirin (Aspirin Chewable) 81 mg PO DAILY [facility] Last Admin: 01/16/18 09:17 Dose: 81 mg Atorvastatin Calcium (Lipitor) 40 mg PO HS [facility] Last Admin: 01/15/18 21:32 Dose: 40 mg Carvedilol (Coreg) 3.125 mg PO Q12 [facility] Last Admin: 01/16/18 09:18 Dose: 3.125 mg Clopidogrel Bisulfate (Plavix) 75 mg PO DAILY [facility] Last Admin: 01/16/18 09:22 Dose: 75 mg Dextrose (Dextrose 50% Inj) 0 ml IV STAT PRN; Protocol PRN Reason: Hypoglycemia Protocol Dextrose (Glutose 15) 0 gm PO ONCE PRN; Protocol PRN Reason: Hypoglycemia Protocol Fluoxetine HCl (Prozac) 20 mg PO DAILY [facility] Last Admin: 01/16/18 09:21 Dose: 20 mg Furosemide (Lasix) 20 mg PO BID [facility] Last Admin: 01/16/18 09:42 Dose: 20 mg Glucagon (Glucagen Diagnostic Kit) 0 mg IM STAT PRN; Protocol PRN Reason: Hypoglycemia Protocol Cefepime HCl 1 gm/ Sodium (Chloride) 100 mls @ 100 mls/hr IVPB Q12 [facility] PRN Reason: Protocol Last Admin: 01/16/18 11:26 Dose: 100 mls/hr Vancomycin HCl 1 gm/ Sodium (Chloride) 250 mls @ 166.667 mls/hr IVPB DAILY [facility] PRN Reason: Protocol Last Admin: 01/16/18 09:22 Dose: 166.667 mls/hr Heparin Sodium/Dextrose (Heparin 25,000 Units/250ml In D5w) 25,000 units in 250 mls @ 7 mls/hr IV .Q24H [facility] PRN Reason: Protocol Insulin Detemir (Levemir) 10 units SC HS [facility] Last Admin: 01/15/18 21:32 Dose: 10 units Insulin Human Regular (Humulin R) 0 units SC ACHS [facility] PRN Reason: Protocol Last Admin: 01/16/18 07:16 Dose: Not Given Isosorbide Mononitrate (Imdur Er) 30 mg PO DAILY [facility] Last Admin: 01/16/18 09:20 Dose: 30 mg Lisinopril (Zestril) 5 mg PO DAILY [facility] Last Admin: 01/16/18 09:22 Dose: 5 mg Mupirocin (Bactroban Ointment) 1 applic TOP DAILY [facility] Last Admin: 01/16/18 09:18 Dose: 1 applic Oxycodone/Acetaminophen (Percocet 5/325 Mg Tab) 1 tab PO Q4 PRN PRN Reason: Pain, moderate (4-7) Stop: 01/17/18 20:47 Last Admin: 01/15/18 21:42 Dose: 1 tab Oxycodone/Acetaminophen (Percocet 5/325 Mg Tab) 2 tab PO Q6 PRN PRN Reason: Pain, severe (8-10) Stop: 01/17/18 20:48 Last Admin: 01/16/18 05:55 Dose: 2 tab Physical Exam - Constitutional Appears: Non-toxic, Chronically Ill - Head Exam Head Exam: NORMOCEPHALIC - Eye Exam Eye Exam: PERRL. absent: Scleral icterus - ENT Exam ENT Exam: Mucous Membranes Dry - Neck Exam Neck exam: Negative for: Lymphadenopathy - Respiratory Exam Respiratory Exam: Decreased Breath Sounds, Rhonchi - Cardiovascular Exam Cardiovascular Exam: REGULAR RHYTHM, +S1, +S2 - GI/Abdominal Exam GI & Abdominal Exam: Diminished Bowel Sounds, Soft. absent: Tenderness - Rectal Exam Rectal Exam: Deferred - Exam Exam: NORMAL INSPECTION - Extremities Exam Extremities exam: Positive for: pedal edema Additional comments: LLE focused physical exam: Vasc: DP pulse nonpalpable. PT pulse weakly palpable, CFT <3 seconds to digits. TG cool to cool. Edema noted to medial aspect of left forefoot Neuro: Gross sensation intact, protective sensation diminished Derm: Ulceration measuring 2.5 cm x 2.5 cm x . 4 cm with 100% fibrous wound base at the medial aspect of the 1st MPJ, severe hallux valgus deformity noted and crossing over 2nd digit. Ulceration has no drainage, no purulence, no odor, periwound slightly erythema, no increase warmth, no fluctance, streaking noted vs erthema noted to dorsum of foot. Superficial ulcerations noted to the 2nd digit secondary to pressure from 1st hallux. Dark, deep blue-christophe purple discoloration noted to the 2nd digits, blue discoloratoin noted to the 3rd digit. The 2nd digit is darker compared to yesterday. Slight macerations to interspaces noted with ulcerations noted to 2nd, 3rd and 4th interspace. Ortho: pain to palpation of medial 1st met head, sub met 1-3, entire digits 1-3 of left foot, patient has generalize pain to the LE extremity - Back Exam Back exam: absent: CVA tenderness (L), CVA tenderness (R) - Neurological Exam Neurological exam: Alert, CN II-XII Intact, Oriented x3, Reflexes Normal - Psychiatric Exam Psychiatric exam: Depressed - Skin Skin Exam: Dry Results - Vital Signs Recent Vital Signs: Last Vital Signs Temp 97.9 F 01/16/18 12:32 Pulse 71 01/16/18 12:32 Resp 18 01/16/18 12:32 BP 123/75 01/16/18 12:32 Pulse Ox 99 01/16/18 12:32 - Labs Result Diagrams: 01/16/18 06:15 01/16/18 06:15 Labs: Laboratory Results - last 24 hr 01/15/18 01/15/18 01/15/18 12:05 15:39 21:31 WBC RBC Hgb Hct MCV MCH MCHC RDW Plt Count APTT Sodium Potassium Chloride Carbon Dioxide Anion Gap BUN Creatinine Est GFR ( Amer) Est GFR (Non-Af Amer) POC Glucose (mg/dL) 176 H 140 H Random Glucose Hemoglobin A1c 7.3 H Calcium 01/16/18 01/16/18 01/16/18 05:53 06:15 06:15 WBC 9.5 RBC 3.59 L Hgb 10.6 L Hct 31.6 L MCV 88.1 MCH 29.4 MCHC 33.4 RDW 12.9 Plt Count 244 APTT Sodium 139 Potassium 5.0 Chloride 104 Carbon Dioxide 24 Anion Gap 16 BUN 33 H Creatinine 1.4 H Est GFR ( Amer) 46 Est GFR (Non-Af Amer) 38 POC Glucose (mg/dL) 121 H Random Glucose 128 H Hemoglobin A1c Calcium 9.4 01/16/18 01/16/18 06:15 11:14 WBC RBC Hgb Hct MCV MCH MCHC RDW Plt Count APTT 53.9 H Sodium Potassium Chloride Carbon Dioxide Anion Gap BUN Creatinine Est GFR ( Amer) Est GFR (Non-Af Amer) POC Glucose (mg/dL) 143 H Random Glucose Hemoglobin A1c Calcium Assessment & Plan (1) Gangrene Status: Acute (2) Acute kidney injury Status: Acute (3) CAD (coronary artery disease) Status: Acute (4) Cardiomyopathy, dilated Status: Acute (5) Diabetic foot ulcer Status: Acute (6) Hyperglycemia due to type 2 diabetes mellitus Status: Acute (7) Osteomyelitis Status: Acute - Assessment and Plan (Free Text) Assessment: await cultures check MRI needs vaasxcular eval IV Vanco/ Zosyn
--- NOTE | 2018-01-16 15:41 | CP.PCM.PN ---
Subjective - Date & Time of Evaluation Date of Evaluation: 01/16/18 Time of Evaluation: 10:35 - Subjective Subjective: Pt seen at bedside, had vascular studies done yesterday morning, lower extremity pain controlled. awaiting further recommedation from vascular and podiatry. Nurses note reviewed Objective - Vital Signs/Intake and Output Vital Signs (last 24 hours): Temp Pulse Resp BP Pulse Ox 97.9 F 71 18 123/75 99 01/16/18 12:32 01/16/18 12:32 01/16/18 12:32 01/16/18 12:32 01/16/18 12:32 Intake and Output: 01/16/18 01/16/18 06:59 18:59 Intake Total 250 Balance 250 - Medications Medications: Current Medications Aspirin (Aspirin Chewable) 81 mg PO DAILY [facility] Last Admin: 01/16/18 09:17 Dose: 81 mg Atorvastatin Calcium (Lipitor) 40 mg PO HS [facility] Last Admin: 01/15/18 21:32 Dose: 40 mg Carvedilol (Coreg) 3.125 mg PO Q12 [facility] Last Admin: 01/16/18 09:18 Dose: 3.125 mg Clopidogrel Bisulfate (Plavix) 75 mg PO DAILY [facility] Last Admin: 01/16/18 09:22 Dose: 75 mg Dextrose (Dextrose 50% Inj) 0 ml IV STAT PRN; Protocol PRN Reason: Hypoglycemia Protocol Dextrose (Glutose 15) 0 gm PO ONCE PRN; Protocol PRN Reason: Hypoglycemia Protocol Fluoxetine HCl (Prozac) 20 mg PO DAILY [facility] Last Admin: 01/16/18 09:21 Dose: 20 mg Furosemide (Lasix) 20 mg PO BID [facility] Last Admin: 01/16/18 09:42 Dose: 20 mg Glucagon (Glucagen Diagnostic Kit) 0 mg IM STAT PRN; Protocol PRN Reason: Hypoglycemia Protocol Cefepime HCl 1 gm/ Sodium (Chloride) 100 mls @ 100 mls/hr IVPB Q12 [facility] PRN Reason: Protocol Last Admin: 01/16/18 11:26 Dose: 100 mls/hr Vancomycin HCl 1 gm/ Sodium (Chloride) 250 mls @ 166.667 mls/hr IVPB DAILY [facility] PRN Reason: Protocol Last Admin: 01/16/18 09:22 Dose: 166.667 mls/hr Heparin Sodium/Dextrose (Heparin 25,000 Units/250ml In D5w) 25,000 units in 250 mls @ 7 mls/hr IV .Q24H [facility] PRN Reason: Protocol Last Admin: 01/16/18 13:42 Dose: 7 mls/hr Insulin Detemir (Levemir) 10 units SC [facility] Last Admin: 01/15/18 21:32 Dose: 10 units Insulin Human Regular (Humulin R) 0 units SC ACHS [facility] PRN Reason: Protocol Last Admin: 01/16/18 13:48 Dose: Not Given Isosorbide Mononitrate (Imdur Er) 30 mg PO DAILY [facility] Last Admin: 01/16/18 09:20 Dose: 30 mg Lisinopril (Zestril) 5 mg PO DAILY [facility] Last Admin: 01/16/18 09:22 Dose: 5 mg Mupirocin (Bactroban Ointment) 1 applic TOP DAILY [facility] Last Admin: 01/16/18 09:18 Dose: 1 applic Oxycodone/Acetaminophen (Percocet 5/325 Mg Tab) 1 tab PO Q4 PRN PRN Reason: Pain, moderate (4-7) Stop: 01/17/18 20:47 Last Admin: 01/15/18 21:42 Dose: 1 tab Oxycodone/Acetaminophen (Percocet 5/325 Mg Tab) 2 tab PO Q6 PRN PRN Reason: Pain, severe (8-10) Stop: 01/17/18 20:48 Last Admin: 01/16/18 05:55 Dose: 2 tab - Labs Labs: 01/16/18 06:15 01/16/18 06:15 PT 11.7 Seconds (9.8-13.1) 01/15/18 12:05 INR 1.1 (0.9-1.2) 01/15/18 12:05 APTT 53.9 Seconds (25.6-37.1) H 01/16/18 06:15 - Constitutional Appears: Non-toxic, No Acute Distress - ENT Exam ENT Exam: Mucous Membranes Moist - Respiratory Exam Respiratory Exam: NORMAL BREATHING PATTERN - Cardiovascular Exam Cardiovascular Exam: REGULAR RHYTHM, +S1, +S2 - GI/Abdominal Exam GI & Abdominal Exam: Soft, Normal Bowel Sounds - Extremities Exam Additional comments: DP pulse nonpalpable. PT pulse weakly palpable, CFT <3 seconds to digits. TG cool to cool. Edema noted to medial aspect of left forefoot - Neurological Exam Neurological Exam: Alert, Awake, Oriented x3 Assessment and Plan - Assessment and Plan (Free Text) Assessment: 67 yo F with PMHx of DM2, HTN, HLD, SD, CVA, chronic back pain, admitted with venous insufficiency changes, limb ischemia. Plan: # Limb Ischemia - Primary management by podiatry team - Vascular consult - Pt on heparin drip , daily INR -Per podiatry resident, vascular planing for Angio at noon 01/17/18; will make NPO after midnight -Vascular studies done 01/15/18- results pending # Insulin Dependent Type 2 Diabetes - Levemir 10U HS - Hypoglycemia protocol and insulin coverage scale - Accuchecks ACHS - Diabetic diet # Coronary Artery Disease - Continue w/ aspirin and plavix # Systolic CHF Last echo 05/22/17 showed EF of 20%. -Continue carvedilol 3.125 BID -Continue furosemide 20mg BID -30 mg isosorbide mononitrate -Lisinopril 5mg; monitor K # Depression - Continue with Fluoxetine # HLD - Continue with Lipitor 40mg HS # DVT prophylaxis - pt currently on heparin drip
[2018-01-16] MEDS: Insulin Detemir 100 Units/ml Inj SC SCH (22:22)
[2018-01-17] MEDS: Oxycodone/Acetaminophen 5/325 mg Tab PO PRN (03:10)
[2018-01-17] MEDS: Insulin Regular 100 units/ml SC SCH ×3 (06:30→17:07)
--- NOTE | 2018-01-17 06:48 | CP.PCM.PN ---
Subjective - Date & Time of Evaluation Date of Evaluation: 01/17/18 Time of Evaluation: 07:30 - Subjective Subjective: Patient seen and evaluated at bedside this am; no acute events overnight. Has been NPO since last night for procedure today. No chest pain, shortness of breath, abdominal pain. Objective - Vital Signs/Intake and Output Vital Signs (last 24 hours): Temp Pulse Resp BP Pulse Ox 97.6 F 65 18 123/62 96 01/17/18 05:00 01/17/18 05:00 01/17/18 05:00 01/17/18 05:00 01/17/18 05:00 Intake and Output: 01/16/18 01/17/18 18:59 06:59 Intake Total 250 1734 Balance 250 1734 - Medications Medications: Current Medications Aspirin (Aspirin Chewable) 81 mg PO DAILY [facility] Last Admin: 01/16/18 09:17 Dose: 81 mg Atorvastatin Calcium (Lipitor) 40 mg PO HS [facility] Last Admin: 01/16/18 22:22 Dose: 40 mg Carvedilol (Coreg) 3.125 mg PO Q12 [facility] Last Admin: 01/16/18 22:24 Dose: 3.125 mg Clopidogrel Bisulfate (Plavix) 75 mg PO DAILY [facility] Last Admin: 01/16/18 09:22 Dose: 75 mg Dextrose (Dextrose 50% Inj) 0 ml IV STAT PRN; Protocol PRN Reason: Hypoglycemia Protocol Dextrose (Glutose 15) 0 gm PO ONCE PRN; Protocol PRN Reason: Hypoglycemia Protocol Fluoxetine HCl (Prozac) 20 mg PO DAILY [facility] Last Admin: 01/16/18 09:21 Dose: 20 mg Furosemide (Lasix) 20 mg PO BID [facility] Last Admin: 01/16/18 17:53 Dose: 20 mg Glucagon (Glucagen Diagnostic Kit) 0 mg IM STAT PRN; Protocol PRN Reason: Hypoglycemia Protocol Cefepime HCl 1 gm/ Sodium (Chloride) 100 mls @ 100 mls/hr IVPB Q12 [facility] PRN Reason: Protocol Last Admin: 01/16/18 22:29 Dose: 100 mls/hr Vancomycin HCl 1 gm/ Sodium (Chloride) 250 mls @ 166.667 mls/hr IVPB DAILY [facility] PRN Reason: Protocol Last Admin: 01/16/18 09:22 Dose: 166.667 mls/hr Heparin Sodium/Dextrose (Heparin 25,000 Units/250ml In D5w) 25,000 units in 250 mls @ 7 mls/hr IV .Q24H [facility] PRN Reason: Protocol Last Admin: 01/16/18 13:42 Dose: 7 mls/hr Insulin Detemir (Levemir) 10 units SC HS [facility] Last Admin: 01/16/18 22:22 Dose: 10 units Insulin Human Regular (Humulin R) 0 units SC ACHS [facility] PRN Reason: Protocol Last Admin: 01/17/18 06:30 Dose: Not Given Isosorbide Mononitrate (Imdur Er) 30 mg PO DAILY [facility] Last Admin: 01/16/18 09:20 Dose: 30 mg Lisinopril (Zestril) 5 mg PO DAILY [facility] Last Admin: 01/16/18 09:22 Dose: 5 mg Mupirocin (Bactroban Ointment) 1 applic TOP DAILY [facility] Last Admin: 01/16/18 09:18 Dose: 1 applic Oxycodone/Acetaminophen (Percocet 5/325 Mg Tab) 1 tab PO Q4 PRN PRN Reason: Pain, moderate (4-7) Stop: 01/17/18 20:47 Last Admin: 01/15/18 21:42 Dose: 1 tab Oxycodone/Acetaminophen (Percocet 5/325 Mg Tab) 2 tab PO Q6 PRN PRN Reason: Pain, severe (8-10) Stop: 01/17/18 20:48 Last Admin: 01/17/18 03:10 Dose: 2 tab - Labs Labs: 01/16/18 06:15 01/16/18 06:15 PT 11.7 Seconds (9.8-13.1) 01/15/18 12:05 INR 1.1 (0.9-1.2) 01/15/18 12:05 APTT 50.8 Seconds (25.6-37.1) H 01/17/18 04:20 - Constitutional Appears: Non-toxic - Eye Exam Eye Exam: EOMI, Normal appearance - ENT Exam ENT Exam: Mucous Membranes Moist - Respiratory Exam Respiratory Exam: Clear to Ausculation Bilateral, NORMAL BREATHING PATTERN - Cardiovascular Exam Cardiovascular Exam: REGULAR RHYTHM, +S1, +S2 - GI/Abdominal Exam GI & Abdominal Exam: Soft, Normal Bowel Sounds. absent: Tenderness - Extremities Exam Extremities Exam: absent: Calf Tenderness, Pedal Edema Additional comments: LLE: cool to touch blue-purple discoloration to first three digits, hallux deformity, dressing in place over ulceration over medial aspect DP pulse not palpable - Back Exam Back Exam: NORMAL INSPECTION - Neurological Exam Neurological Exam: Alert, Awake, Oriented x3 - Skin Additional comments: discoloration at first,second,third toes of LLE; as in extremities exam otherwise exposed skin unremarkable Assessment and Plan - Assessment and Plan (Free Text) Assessment: 67 yo F with PMHx of DM2, HTN, HLD, PR, CVA, chronic back pain, admitted with left lower extremity limb ischemia. Plan: # Limb Ischemia - Primary management by podiatry team - Vascular consult - Per podiatry resident, vascular planing for Angio at noon today 01/17/18; pt has been NPO - Pt on heparin drip, daily INR/PTT - Vascular studies done 01/15/18- results pending - Antibiotics as per infectious disease consult, Dr. Palacios # Insulin Dependent Type 2 Diabetes - Levemir 10U HS - Hypoglycemia protocol and insulin coverage scale - Accuchecks ACHS - Diabetic diet, held due to procedure # Coronary Artery Disease - Continue w/ aspirin and plavix # Systolic CHF Last echo 05/22/17 showed EF of 20%. -Continue carvedilol 3.125 BID -Continue furosemide 20mg BID -30 mg isosorbide mononitrate -Lisinopril 5mg; monitor K # Depression - Continue with Fluoxetine # HLD - Continue with Lipitor 40mg HS # DVT prophylaxis - pt currently on heparin drip
[2018-01-17] MEDS: Cefepime 1 GM in Sodium Chloride 0.9% 100 ML IVPB SCH (08:53)
--- NOTE | 2018-01-17 11:29 | VASCLAB ---
STUDY DESCRIPTION: HISTORY: left foot ischemic changes; pvd PRIORS: None. TECHNIQUE: Pulse volume recording waveforms and segmental pressures of bilateral lower extremities at multiple levels were obtained. Ankle Brachial Indices (ABIs) were calculated. Report prepared by Keshia May RDMS,NICOLASA,MEENU ESCALANTE RIGHT LOWER EXTREMITY: * Brachial artery: Pressure - 101 mmHg. * High thigh: Pressure - mmHg: Ratio - : PVR waveform - Pulsatile * Low thigh: Pressure - mmHg: Ratio - PVR waveform: Pulsatile * Calf: Pressure - mmHg: Ratio - PVR waveform: Pulsatile * Posterior tibial Artery: Pressure - mmHg: Ratio - PVR waveform: Reduced * Dorsalis pedis Artery: Pressure - mmHg: Ratio - PVR waveform: Pulsatile * Great toe: Pressure - mmHg: Ratio - PVR waveform: Pulsatile Ankle brachial index (MARNIE): No MARNIE,Since no doppler signal could be obtained. LEFT LOWER EXTREMITY: * Brachial artery: Pressure - 97 mmHg. * High thigh: Pressure - mmHg: Ratio - : PVR waveform - Pulsatile * Low thigh: Pressure - mmHg: Ratio - PVR waveform: Pulsatile * Calf: Pressure - mmHg: Ratio - PVR waveform: Reduced * Posterior tibial Artery: Pressure - mmHg: Ratio - PVR waveform: None * Dorsalis pedis Artery: Pressure - mmHg: Ratio - PVR waveform: Pulsatile * Great toe: Pressure - mmHg: Ratio - PVR waveform: Pulsatile Ankle brachial index (MARNIE): No MARNIE,since no doppler signal could be obtained. OTHER FINDINGS: IMPRESSION: Diminished pulses in the right ankle and left lower extremity from the knee to the ankle. MARNIE could not be performed.
--- NOTE | 2018-01-17 11:48 | CP.PCM.PN ---
Subjective - Date & Time of Evaluation Date of Evaluation: 01/17/18 Time of Evaluation: 08:00 - Subjective Subjective: 67 y.o female with left foot ulcer and discolored 2nd and 3rd digits. Patient reports that she has not followed up with Dr. Reynoso for over 1 month due to transportation issues. Reports that she has been changing her dressing daily with the ointment prescribed. Patient reports that the discoloration in her toes started 5 days ago. Patient denies any trauma or recent falls. Denies long exposure to cold. Reports being inside most of the time. PMH: DM2, HTN, HLD, [place], CVA, chronic back pain PSH: catherterization; left foot surgery: partial resection of distal left 1st metatarsal, partial resection of base of proximal phalanx, excision of left tibial sesamoid and debridement of ulcers Objective - Vital Signs/Intake and Output Vital Signs (last 24 hours): Temp Pulse Resp BP Pulse Ox 97.7 F 60 18 134/74 98 01/17/18 08:05 01/17/18 08:53 01/17/18 08:05 01/17/18 08:53 01/17/18 08:05 Intake and Output: 01/17/18 01/17/18 06:59 18:59 Intake Total 1734 Balance 1734 - Medications Medications: Current Medications Aspirin (Aspirin Chewable) 81 mg PO DAILY [facility] Last Admin: 01/17/18 08:51 Dose: Not Given Atorvastatin Calcium (Lipitor) 40 mg PO HS [facility] Last Admin: 01/16/18 22:22 Dose: 40 mg Carvedilol (Coreg) 3.125 mg PO Q12 [facility] Last Admin: 01/17/18 08:51 Dose: Not Given Clopidogrel Bisulfate (Plavix) 75 mg PO DAILY [facility] Last Admin: 01/17/18 08:53 Dose: Not Given Dextrose (Dextrose 50% Inj) 0 ml IV STAT PRN; Protocol PRN Reason: Hypoglycemia Protocol Dextrose (Glutose 15) 0 gm PO ONCE PRN; Protocol PRN Reason: Hypoglycemia Protocol Fluoxetine HCl (Prozac) 20 mg PO DAILY [facility] Last Admin: 01/17/18 08:53 Dose: Not Given Furosemide (Lasix) 20 mg PO BID [facility] Last Admin: 01/17/18 08:52 Dose: Not Given Glucagon (Glucagen Diagnostic Kit) 0 mg IM STAT PRN; Protocol PRN Reason: Hypoglycemia Protocol Cefepime HCl 1 gm/ Sodium (Chloride) 100 mls @ 100 mls/hr IVPB Q12 [facility] PRN Reason: Protocol Last Admin: 01/17/18 08:53 Dose: 100 mls/hr Vancomycin HCl 1 gm/ Sodium (Chloride) 250 mls @ 166.667 mls/hr IVPB DAILY [facility] PRN Reason: Protocol Last Admin: 01/17/18 10:40 Dose: 166.667 mls/hr Heparin Sodium/Dextrose (Heparin 25,000 Units/250ml In D5w) 25,000 units in 250 mls @ 7 mls/hr IV .Q24H [facility] PRN Reason: Protocol Last Admin: 01/16/18 13:42 Dose: 7 mls/hr Insulin Detemir (Levemir) 10 units SC [facility] Last Admin: 01/16/18 22:22 Dose: 10 units Insulin Human Regular (Humulin R) 0 units SC ACHS [facility] PRN Reason: Protocol Last Admin: 01/17/18 06:30 Dose: Not Given Isosorbide Mononitrate (Imdur Er) 30 mg PO DAILY [facility] Last Admin: 01/17/18 08:52 Dose: Not Given Lisinopril (Zestril) 5 mg PO DAILY [facility] Last Admin: 01/17/18 08:53 Dose: Not Given Mupirocin (Bactroban Ointment) 1 applic TOP DAILY [facility] Last Admin: 01/17/18 08:51 Dose: Not Given Oxycodone/Acetaminophen (Percocet 5/325 Mg Tab) 1 tab PO Q4 PRN PRN Reason: Pain, moderate (4-7) Stop: 01/17/18 20:47 Last Admin: 01/15/18 21:42 Dose: 1 tab Oxycodone/Acetaminophen (Percocet 5/325 Mg Tab) 2 tab PO Q6 PRN PRN Reason: Pain, severe (8-10) Stop: 01/17/18 20:48 Last Admin: 01/17/18 03:10 Dose: 2 tab - Labs Labs: 01/16/18 06:15 01/16/18 06:15 PT 11.7 Seconds (9.8-13.1) 01/15/18 12:05 INR 1.1 (0.9-1.2) 01/15/18 12:05 APTT 50.8 Seconds (25.6-37.1) H 01/17/18 04:20 - Constitutional Appears: Non-toxic, Chronically Ill - Head Exam Head Exam: NORMOCEPHALIC - Eye Exam Eye Exam: PERRL - ENT Exam ENT Exam: Mucous Membranes Dry - Neck Exam Neck Exam: absent: Lymphadenopathy - Respiratory Exam Respiratory Exam: Decreased Breath Sounds - Cardiovascular Exam Cardiovascular Exam: REGULAR RHYTHM - GI/Abdominal Exam GI & Abdominal Exam: Distended, Soft - Rectal Exam Rectal Exam: Deferred - Exam Exam: NORMAL INSPECTION Assessment and Plan (1) Gangrene Status: Acute (2) Acute kidney injury Status: Acute (3) CAD (coronary artery disease) Status: Acute (4) Cardiomyopathy, dilated Status: Acute (5) Diabetic foot ulcer Status: Acute (6) Hyperglycemia due to type 2 diabetes mellitus Status: Acute (7) Osteomyelitis Status: Acute - Assessment and Plan (Free Text) Assessment: await cultures Plan: await MRI and vascular eval may need OR/ debridement cont Vanco/zosyn
--- NOTE | 2018-01-17 15:53 | CP.PCM.PN ---
Subjective - Date & Time of Evaluation Date of Evaluation: 01/17/18 Time of Evaluation: 21:16 - Subjective Subjective: Podiatry Progress Note- Dr. Reynoso 67 y.o female with PMHx of DM2, HTN, HLD, [place], CVA, chronic back pain seen and evaluated for left foot ulcer and ischemic 1st, 2nd and 3rd digits, worsening changes. Patient seen sitting comfortably in bed, in NAD, and AA0x3. Patient reports same pain to her lower extremity. She denies resting calf pain, no calf pain or tenderness. Denies nausea, fever, shortness of breath, chest pain, chills or vomiting. Reports nothing to eat or drink since midnight. Objective - Vital Signs/Intake and Output Vital Signs (last 24 hours): Temp Pulse Resp BP Pulse Ox 97.7 F 60 18 134/74 98 01/17/18 08:05 01/17/18 09:00 01/17/18 08:05 01/17/18 08:53 01/17/18 08:05 Intake and Output: 01/17/18 01/17/18 06:59 18:59 Intake Total 1734 Balance 1734 - Medications Medications: Current Medications Aspirin (Aspirin Chewable) 81 mg PO DAILY [facility] Last Admin: 01/17/18 08:51 Dose: Not Given Atorvastatin Calcium (Lipitor) 40 mg PO HS [facility] Last Admin: 01/16/18 22:22 Dose: 40 mg Carvedilol (Coreg) 3.125 mg PO Q12 [facility] Last Admin: 01/17/18 08:51 Dose: Not Given Clopidogrel Bisulfate (Plavix) 75 mg PO DAILY [facility] Last Admin: 01/17/18 08:53 Dose: Not Given Dextrose (Dextrose 50% Inj) 0 ml IV STAT PRN; Protocol PRN Reason: Hypoglycemia Protocol Dextrose (Glutose 15) 0 gm PO ONCE PRN; Protocol PRN Reason: Hypoglycemia Protocol Fluoxetine HCl (Prozac) 20 mg PO DAILY [facility] Last Admin: 01/17/18 08:53 Dose: Not Given Furosemide (Lasix) 20 mg PO BID [facility] Last Admin: 01/17/18 08:52 Dose: Not Given Glucagon (Glucagen Diagnostic Kit) 0 mg IM STAT PRN; Protocol PRN Reason: Hypoglycemia Protocol Cefepime HCl 1 gm/ Sodium (Chloride) 100 mls @ 100 mls/hr IVPB Q12 [facility] PRN Reason: Protocol Last Admin: 01/17/18 08:53 Dose: 100 mls/hr Vancomycin HCl 1 gm/ Sodium (Chloride) 250 mls @ 166.667 mls/hr IVPB DAILY [facility] PRN Reason: Protocol Last Admin: 01/17/18 10:40 Dose: 166.667 mls/hr Heparin Sodium/Dextrose (Heparin 25,000 Units/250ml In D5w) 25,000 units in 250 mls @ 7 mls/hr IV .Q24H [facility] PRN Reason: Protocol Last Admin: 01/16/18 13:42 Dose: 7 mls/hr Insulin Detemir (Levemir) 10 units SC HS [facility] Last Admin: 01/16/18 22:22 Dose: 10 units Insulin Human Regular (Humulin R) 0 units SC ACHS [facility] PRN Reason: Protocol Last Admin: 01/17/18 13:45 Dose: Not Given Isosorbide Mononitrate (Imdur Er) 30 mg PO DAILY [facility] Last Admin: 01/17/18 08:52 Dose: Not Given Lisinopril (Zestril) 5 mg PO DAILY [facility] Last Admin: 01/17/18 08:53 Dose: Not Given Mupirocin (Bactroban Ointment) 1 applic TOP DAILY [facility] Last Admin: 01/17/18 08:51 Dose: Not Given Oxycodone/Acetaminophen (Percocet 5/325 Mg Tab) 1 tab PO Q4 PRN PRN Reason: Pain, moderate (4-7) Stop: 01/17/18 20:47 Last Admin: 01/15/18 21:42 Dose: 1 tab Oxycodone/Acetaminophen (Percocet 5/325 Mg Tab) 2 tab PO Q6 PRN PRN Reason: Pain, severe (8-10) Stop: 01/17/18 20:48 Last Admin: 01/17/18 03:10 Dose: 2 tab - Labs Labs: 01/16/18 06:15 01/16/18 06:15 PT 11.7 Seconds (9.8-13.1) 01/15/18 12:05 INR 1.1 (0.9-1.2) 01/15/18 12:05 APTT 50.8 Seconds (25.6-37.1) H 01/17/18 04:20 - Constitutional Appears: Well, Non-toxic, No Acute Distress - Extremities Exam Extremities Exam: absent: Calf Tenderness Additional comments: LLE focused physical exam: Vasc: DP pulse nonpalpable. PT pulse weakly palpable, CFT <3 seconds to digits. TG cool to cool. Edema noted to medial aspect of left forefoot Neuro: Gross sensation intact, protective sensation diminished Derm: Ulceration measuring 2.5 cm x 2.5 cm x . 4 cm with 100% fibrous wound base at the medial aspect of the 1st MPJ, severe hallux valgus deformity noted and crossing over 2nd digit. Ulceration has no drainage, no purulence, no odor, periwound slightly erythema, no increase warmth, no fluctance, streaking noted vs erthema noted to dorsum of foot. Superficial ulcerations noted to the 2nd digit secondary to pressure from 1st hallux. Dark, deep blue-christophe purple discoloration noted to the 2nd digits, blue discoloratoin noted to the 3rd digit. The 2nd digit is darker compared to yesterday. Slight macerations to interspaces noted with ulcerations noted to 2nd, 3rd and 4th interspace. Ortho: pain to palpation of medial 1st met head, sub met 1-3, entire digits 1-3 of left foot, patient has generalize pain to the LE extremity - Neurological Exam Neurological Exam: Alert, Awake, Oriented x3 - Psychiatric Exam Psychiatric exam: Normal Affect, Normal Mood Assessment and Plan - Assessment and Plan (Free Text) Assessment: 67 y.o female with PMHx of DM2, HTN, HLD, [place], CVA, chronic back pain seen and evaluated left foot non healing ulcer and ischemic 1st 2nd and 3rd digits secondary to DM and PVD Plan: Patient examined and evaluated Discussed plan in detail with attending Dr. Reynoso Labs, chart, vitals reviewed Cleansed ulceration and left foot with saline, dressed ulceration with xeroform and dsd Painted interdigital macerations with betadine Painted ischemic toes with betadine, will let air and continue to monitor ischemic changes Will continue to monitor digits for demarcation Waiting for vascular recommendations ABIs/PVR L brachial 97 R brachial 101 no appreciable waveforms to the ankle Left foot x-rays ordered-Impression: no definite cortical destructive changes; soft tissue swelling to left great toe; recommend f/u with MRI to assess early OM which can not be excluded base on this exam Duplex ultrasound- negative for DVT Vascular consulted- recommendations appreciated, thank you -spoke to Dr. Mcdaniel is okay to hold nitro drip -instructed to continue heparin drip -angio at noon today at [facility] ID consulted- spoke to Dr. Palacios, recommended patient to be started on Cefepime and Vanco Wound culture pending Podiatry will continue to follow while in house
[2018-01-17] MEDS: Heparin 25,000units in D5W 25,000 UNITS/250 ML BAG IV SCH (18:05)
--- NOTE | 2018-01-17 23:21 | CP.PCM.PCO ---
Addendum Addendum: 01/17/18 23:22 Spoke with nursing staff 2100 : patient is to stay at [facility] overnight due to hypotension after angiogram. She is now admitted to ICU in [facility]. Possible transfer back tomorrow. Geovani PGY2
[2018-01-18] MEDS: Insulin Regular 100 units/ml SC SCH ×4 (07:30→22:36)
[2018-01-18] MEDS: Cefepime 1 GM in Sodium Chloride 0.9% 100 ML IVPB SCH ×2 (09:00→21:44)
[2018-01-18] MEDS ORDERED: Heparin 25,000units in D5W 25,000 UNITS/250 ML BAG IV SCH ×2 (13:45→19:00)
[2018-01-18] MEDS: Morphine 4 MG/ML VIAL IVP PRN (14:32)
--- NOTE | 2018-01-18 16:50 | CP.PCM.PN ---
Subjective - Date & Time of Evaluation Date of Evaluation: 01/18/18 Time of Evaluation: 14:30 - Subjective Subjective: Pt seen and examined at bedside after returning from [facility]. Reports having a headache, otherwise no other complaints. Pt's daughter in law at bedside, has some questions regarding the end goal of pt's ischemic goal. would like to know what kind of surgery will be done and when it will be done. Family members questions answered. Objective - Vital Signs/Intake and Output Vital Signs (last 24 hours): Temp Pulse Resp BP Pulse Ox 97.3 F L 106 H 20 162/76 H 96 01/18/18 16:01 01/18/18 16:01 01/18/18 16:01 01/18/18 16:01 01/18/18 16:01 - Medications Medications: Current Medications Aspirin (Aspirin Chewable) 81 mg PO DAILY [facility] Last Admin: 01/17/18 08:51 Dose: Not Given Atorvastatin Calcium (Lipitor) 40 mg PO HS [facility] Last Admin: 01/16/18 22:22 Dose: 40 mg Carvedilol (Coreg) 3.125 mg PO Q12 [facility] Last Admin: 01/17/18 08:51 Dose: Not Given Clopidogrel Bisulfate (Plavix) 75 mg PO DAILY [facility] Last Admin: 01/17/18 08:53 Dose: Not Given Dextrose (Dextrose 50% Inj) 0 ml IV STAT PRN; Protocol PRN Reason: Hypoglycemia Protocol Dextrose (Glutose 15) 0 gm PO ONCE PRN; Protocol PRN Reason: Hypoglycemia Protocol Fluoxetine HCl (Prozac) 20 mg PO DAILY [facility] Last Admin: 01/17/18 08:53 Dose: Not Given Furosemide (Lasix) 20 mg PO BID [facility] Last Admin: 01/17/18 17:07 Dose: Not Given Glucagon (Glucagen Diagnostic Kit) 0 mg IM STAT PRN; Protocol PRN Reason: Hypoglycemia Protocol Cefepime HCl 1 gm/ Sodium (Chloride) 100 mls @ 100 mls/hr IVPB Q12 [facility] PRN Reason: Protocol Last Admin: 01/17/18 08:53 Dose: 100 mls/hr Vancomycin HCl 1 gm/ Sodium (Chloride) 250 mls @ 166.667 mls/hr IVPB DAILY [facility] PRN Reason: Protocol Last Admin: 01/17/18 10:40 Dose: 166.667 mls/hr Heparin Sodium/Dextrose (Heparin 25,000 Units/250ml In D5w) 25,000 units in 250 mls @ 7 mls/hr IV .Q24H [facility] PRN Reason: Protocol Insulin Detemir (Levemir) 10 units SC HS [facility] Last Admin: 01/16/18 22:22 Dose: 10 units Insulin Human Regular (Humulin R) 0 units SC ACHS [facility] PRN Reason: Protocol Last Admin: 01/17/18 17:07 Dose: Not Given Isosorbide Mononitrate (Imdur Er) 30 mg PO DAILY [facility] Last Admin: 01/17/18 08:52 Dose: Not Given Lidocaine (Lidoderm) 2 ea TD DAILY [facility] Lisinopril (Zestril) 5 mg PO DAILY [facility] Last Admin: 01/17/18 08:53 Dose: Not Given Morphine Sulfate (Morphine) 1 mg IVP Q4 PRN PRN Reason: Pain, severe (8-10) Last Admin: 01/18/18 14:32 Dose: 1 mg Mupirocin (Bactroban Ointment) 1 applic TOP DAILY [facility] Last Admin: 01/17/18 08:51 Dose: Not Given Ondansetron HCl (Zofran Inj) 4 mg IVP Q4 PRN PRN Reason: Nausea/Vomiting - Labs Labs: 01/16/18 06:15 01/16/18 06:15 PT 11.7 Seconds (9.8-13.1) 01/15/18 12:05 INR 1.1 (0.9-1.2) 01/15/18 12:05 APTT 50.8 Seconds (25.6-37.1) H 01/17/18 04:20 - Constitutional Appears: Non-toxic, No Acute Distress - ENT Exam ENT Exam: Mucous Membranes Moist - Respiratory Exam Respiratory Exam: Clear to Ausculation Bilateral, NORMAL BREATHING PATTERN. absent: Rhonchi, Wheezes - Cardiovascular Exam Cardiovascular Exam: REGULAR RHYTHM, +S1, +S2 - GI/Abdominal Exam GI & Abdominal Exam: Soft, Normal Bowel Sounds. absent: Tenderness - Extremities Exam Additional comments: left lower extremity neatly cleaned and dressed. - Neurological Exam Neurological Exam: Alert, Awake, Oriented x3 - Psychiatric Exam Psychiatric exam: Anxious Assessment and Plan - Assessment and Plan (Free Text) Assessment: 67 yo F with PMHx of DM2, HTN, HLD, PR, CVA, chronic back pain, admitted with left lower extremity limb ischemia s/p angiography Plan: # Limb Ischemia - Primary management by podiatry team - Vascular following - S/p angio by vascular POD #1, - attempt to revascularized failed due to severe thrombus burdern. Pt at risk for BKA vs AKA - Pt on heparin drip, daily INR/PTT till 01/19/18 - Vascular studies done 01/15/18- evidence of severe limb ischemia - Antibiotics as per infectious disease consult, Dr. Palacios # Insulin Dependent Type 2 Diabetes - Levemir 10U HS - Hypoglycemia protocol and insulin coverage scale - [facility] # Coronary Artery Disease - Continue w/ aspirin and plavix # Systolic CHF Last echo 05/22/17 showed EF of 20%. -Continue carvedilol 3.125 BID -Continue furosemide 20mg BID -30 mg isosorbide mononitrate -Lisinopril 5mg; monitor K # Depression - Continue with Fluoxetine # HLD - Continue with Lipitor 40mg HS # DVT prophylaxis - pt currently on heparin drip
[2018-01-18] MEDS: Insulin Detemir 100 Units/ml Inj SC SCH ×2 (22:00→22:35)
[2018-01-19] MEDS ORDERED: Heparin 25,000units in D5W 25,000 UNITS/250 ML BAG IV SCH (01:15)
[2018-01-19] MEDS: Morphine 4 MG/ML VIAL IVP PRN (01:59)
[2018-01-19] MEDS: Insulin Regular 100 units/ml SC SCH ×4 (06:40→22:28)
--- NOTE | 2018-01-19 06:51 | CP.PCM.PN ---
Subjective - Date & Time of Evaluation Date of Evaluation: 01/19/18 Time of Evaluation: 07:20 - Subjective Subjective: Pt seen and evaluated at bedside; returned from [facility] after angiogram yesterday. Pt states she is upset about her foot. Objective - Vital Signs/Intake and Output Vital Signs (last 24 hours): Temp Pulse Resp BP Pulse Ox 99.9 F H 107 H 18 97/62 L 95 01/19/18 05:00 01/19/18 05:00 01/19/18 05:00 01/19/18 05:00 01/19/18 05:00 - Medications Medications: Current Medications Aspirin (Aspirin Chewable) [address] [facility] Last Admin: 01/18/18 09:59 Dose: Not Given Atorvastatin Calcium (Lipitor) [address] [facility] Last Admin: 01/18/18 22:39 Dose: 40 mg Carvedilol (Coreg) 3.[address] [facility] Last Admin: 01/18/18 22:47 Dose: 3.125 mg Clopidogrel Bisulfate (Plavix) [address] [facility] Last Admin: 01/18/18 09:06 Dose: Not Given Dextrose (Dextrose 50% Inj) 0 ml IV STAT PRN; Protocol PRN Reason: Hypoglycemia Protocol Dextrose (Glutose 15) 0 gm PO ONCE PRN; Protocol PRN Reason: Hypoglycemia Protocol Fluoxetine HCl (Prozac) [address] [facility] Last Admin: 01/18/18 17:29 Dose: 20 mg Furosemide (Lasix) [address] [facility] Last Admin: 01/18/18 17:25 Dose: 20 mg Glucagon (Glucagen Diagnostic Kit) 0 mg IM STAT PRN; Protocol PRN Reason: Hypoglycemia Protocol Cefepime HCl 1 gm/ Sodium (Chloride) 100 mls @ 100 mls/hr IVPB Q12 [facility] PRN Reason: Protocol Last Admin: 01/18/18 21:44 Dose: 100 mls/hr Vancomycin HCl 1 gm/ Sodium (Chloride) 250 mls @ 166.667 mls/hr IVPB DAILY [facility] PRN Reason: Protocol Last Admin: 01/18/18 23:24 Dose: 166.667 mls/hr Heparin Sodium/Dextrose (Heparin 25,000 Units/250ml In D5w) 25,000 units in 250 mls @ 6 mls/hr IV .Q24H [facility] PRN Reason: Protocol Last Admin: 01/19/18 05:32 Dose: Not Given Insulin Detemir (Levemir) [address] [facility] Last Admin: 01/18/18 22:00 Dose: 10 units Insulin Human Regular (Humulin R) [address] [facility] PRN Reason: Protocol Last Admin: 01/19/18 06:40 Dose: Not Given Isosorbide Mononitrate (Imdur Er) [address] [facility] Last Admin: 01/18/18 17:30 Dose: 30 mg Lidocaine (Lidoderm) [address] [facility] Lisinopril (Zestril) [address] [facility] Last Admin: 01/18/18 17:29 Dose: 5 mg Morphine Sulfate (Morphine) 1 mg IVP Q4 PRN PRN Reason: Pain, severe (8-10) Last Admin: 01/19/18 01:59 Dose: 1 mg Mupirocin (Bactroban Ointment) [address] [facility] Last Admin: 01/18/18 09:00 Dose: Not Given Ondansetron HCl (Zofran Inj) 4 mg IVP Q4 PRN PRN Reason: Nausea/Vomiting - Labs Labs: 01/16/18 06:15 01/16/18 06:15 PT 11.7 Seconds (9.8-13.1) 01/15/18 12:05 INR 1.1 (0.9-1.2) 01/15/18 12:05 APTT 49.9 Seconds (25.6-37.1) H D 01/19/18 00:10 - Constitutional Appears: Non-toxic - Head Exam Head Exam: ATRAUMATIC, NORMAL INSPECTION - Eye Exam Eye Exam: Normal appearance - ENT Exam ENT Exam: Mucous Membranes Moist - Respiratory Exam Respiratory Exam: Clear to Ausculation Bilateral, NORMAL BREATHING PATTERN - Cardiovascular Exam Cardiovascular Exam: REGULAR RHYTHM, +S1, +S2 - GI/Abdominal Exam GI & Abdominal Exam: Soft, Normal Bowel Sounds. absent: Tenderness - Extremities Exam Additional comments: left lower extremity in dressing; clean and dry. - Neurological Exam Neurological Exam: Alert, Awake - Psychiatric Exam Psychiatric exam: Anxious - Skin Skin Exam: Normal Color Assessment and Plan - Assessment and Plan (Free Text) Assessment: 67 yo F with PMHx of DM2, HTN, HLD, [place], CVA, chronic back pain, admitted with left lower extremity limb ischemia s/p angiography on 01/17 at [facility] Plan: # Limb Ischemia - Primary management by podiatry team - Vascular following - S/p angio by vascular POD #2, - attempt to revascularize unsuccessful due to severe thrombus burden. - Pt on heparin drip until 48 hrs after procedure; 1630 today - Vascular studies done 01/15/18- evidence of severe limb ischemia - Antibiotics as per infectious disease consult, Dr. Palacios # Insulin Dependent Type 2 Diabetes - Levemir 10U HS - [facility] # Coronary Artery Disease - Continue w/ aspirin and plavix # Systolic CHF Last echo 05/22/17 showed EF of 20%. -Continue carvedilol 3.125 BID -Continue furosemide 20mg BID -30 mg isosorbide mononitrate -Lisinopril 5mg; monitor K # Depression - Continue with Fluoxetine # HLD - Continue with Lipitor 40mg HS # DVT prophylaxis - pt currently on heparin drip
[2018-01-19] MEDS: Cefepime 1 GM in Sodium Chloride 0.9% 100 ML IVPB SCH ×2 (08:28→20:55)
[2018-01-19] MEDS ORDERED: Morphine 4 MG/ML VIAL IV ONE (08:30)
[2018-01-19] MEDS: Lidocaine 5% Patch TD SCH (08:34)
[2018-01-19] MEDS ORDERED: Lidocaine 5% Patch TD SCH (09:00)
[2018-01-19] MEDS ORDERED: Morphine 4 MG/ML VIAL IVP PRN (09:55)
--- NOTE | 2018-01-19 09:58 | CP.PCM.PN ---
<Ajay Shook - Last Filed: 01/19/18 19:42> Subjective - Date & Time of Evaluation Date of Evaluation: 01/19/18 Time of Evaluation: 09:00 - Subjective Subjective: Podiatry Progress Note- Dr. Reynoso 67 y.o female with PMHx of DM2, HTN, HLD, [place], CVA, chronic back pain seen and evaluated with attending for nonhealing left foot ulcer and gangreous 1st, 2nd and 3rd digits with worsening ischemic changes. Patient is s/p angio by vascular POD #2 in which attempted to revascularized and unable to to recannulate distal flow, poor circulation secondary to severe thrombus burden. Pt high risk for BKA. Today patient seen sitting comfortably in bed, in NAD, and AA0x3. Patient reports same pain to her lower extremity. She denies resting calf pain, no calf pain or tenderness. Denies nausea, fever, shortness of breath , chest pain, chills or vomiting. Patient reports having severe headache during visitation.. Objective - Vital Signs/Intake and Output Vital Signs (last 24 hours): Temp Pulse Resp BP Pulse Ox 98.1 F 83 18 123/68 98 01/19/18 07:55 01/19/18 08:37 01/19/18 07:55 01/19/18 08:37 01/19/18 07:55 - Medications Medications: Current Medications Alprazolam (Xanax) 0.5 mg PO Q6 PRN PRN Reason: Anxiety Aspirin (Aspirin Chewable) 81 mg PO DAILY [facility] Last Admin: 01/19/18 08:32 Dose: 81 mg Atorvastatin Calcium (Lipitor) 40 mg PO HS [facility] Last Admin: 01/18/18 22:39 Dose: 40 mg Carvedilol (Coreg) 3.125 mg PO Q12 [facility] Last Admin: 01/19/18 08:37 Dose: 3.125 mg Clopidogrel Bisulfate (Plavix) 75 mg PO DAILY [facility] Last Admin: 01/19/18 08:35 Dose: 75 mg Dextrose (Dextrose 50% Inj) 0 ml IV STAT PRN; Protocol PRN Reason: Hypoglycemia Protocol Dextrose (Glutose 15) 0 gm PO ONCE PRN; Protocol PRN Reason: Hypoglycemia Protocol Fluoxetine HCl (Prozac) 20 mg PO DAILY [facility] Last Admin: 01/19/18 08:36 Dose: 20 mg Furosemide (Lasix) 20 mg PO BID [facility] Last Admin: 01/19/18 08:34 Dose: 20 mg Glucagon (Glucagen Diagnostic Kit) 0 mg IM STAT PRN; Protocol PRN Reason: Hypoglycemia Protocol Cefepime HCl 1 gm/ Sodium (Chloride) 100 mls @ 100 mls/hr IVPB Q12 [facility] PRN Reason: Protocol Last Admin: 01/19/18 08:28 Dose: 100 mls/hr Vancomycin HCl 1 gm/ Sodium (Chloride) 250 mls @ 166.667 mls/hr IVPB DAILY [facility] PRN Reason: Protocol Last Admin: 01/19/18 09:34 Dose: 166.667 mls/hr Heparin Sodium/Dextrose (Heparin 25,000 Units/250ml In D5w) 25,000 units in 250 mls @ 6 mls/hr IV .Q24H [facility] PRN Reason: Protocol Last Admin: 01/19/18 05:32 Dose: Not Given Insulin Detemir (Levemir) 10 units SC HS [facility] Last Admin: 01/18/18 22:00 Dose: 10 units Insulin Human Regular (Humulin R) 0 units SC ACHS [facility] PRN Reason: Protocol Last Admin: 01/19/18 06:40 Dose: Not Given Isosorbide Mononitrate (Imdur Er) 30 mg PO DAILY [facility] Last Admin: 01/19/18 08:30 Dose: 30 mg Lidocaine (Lidoderm) 2 ea TD DAILY [facility] Last Admin: 01/19/18 08:34 Dose: 2 ea Lisinopril (Zestril) 5 mg PO DAILY [facility] Last Admin: 01/19/18 08:33 Dose: 5 mg Morphine Sulfate (Morphine) 1 mg IVP Q4 PRN PRN Reason: Pain, severe (8-10) Last Admin: 01/19/18 01:59 Dose: 1 mg Morphine Sulfate (Morphine) 2 mg IVP Q6 PRN PRN Reason: Pain, severe (8-10) Mupirocin (Bactroban Ointment) 1 applic TOP DAILY [facility] Last Admin: 01/19/18 08:36 Dose: 1 applic Ondansetron HCl (Zofran Inj) 4 mg IVP Q4 PRN PRN Reason: Nausea/Vomiting - Labs Labs: 01/16/18 06:15 01/16/18 06:15 PT 11.7 Seconds (9.8-13.1) 01/15/18 12:05 INR 1.1 (0.9-1.2) 01/15/18 12:05 APTT 43.5 Seconds (25.6-37.1) H D 01/19/18 04:20 - Constitutional Appears: Well, Non-toxic, No Acute Distress - Extremities Exam Extremities Exam: absent: Calf Tenderness Additional comments: LLE focused physical exam: Vasc: DP pulse nonpalpable. PT pulses nonpalpable, CFT <3 seconds to digits. TG cool to cool. Edema noted to medial aspect of left forefoot Neuro: Gross sensation intact, protective sensation diminished Derm: Ulceration measuring 2.5 cm x 2.5 cm x . 4 cm with 100% fibrous wound base at the medial aspect of the 1st MPJ, severe hallux valgus deformity noted and crossing over 2nd digit. Ulceration has no drainage, no purulence, no odor, periwound slightly erythema, no increase warmth, no fluctance, streaking noted vs erthema noted to dorsum of foot. Superficial ulcerations noted to the 2nd digit secondary to pressure from 1st hallux. 2nd digit with worsen gangrenous changes, now with mummification and dry, blue discoloration noted to the 3rd digit and 4th digit and plantar aspect of sub met 1. . Slight macerations to interspaces noted with ulcerations noted to 2nd, 3rd and 4th interspace. Ortho: pain to palpation of medial 1st met head, sub met 1-3, entire digits 1-3 of left foot, patient has generalize pain to the LE extremity - Neurological Exam Neurological Exam: Alert, Awake, Oriented x3 - Psychiatric Exam Psychiatric exam: Normal Affect, Normal Mood Assessment and Plan - Assessment and Plan (Free Text) Assessment: 67 y.o female with PMHx of DM2, HTN, HLD, [place], CVA, chronic back pain seen and evaluated left foot non healing ulcer and ischemic 1st 2nd, 3rd, 4th digits secondary to DM and PVD Plan: Patient examined and evaluated Discussed plan in detail with attending Dr. Reynoso Labs, chart, vitals reviewed Cleansed ulceration and left foot with saline, dressed ulceration with xeroform and dsd Painted interdigital macerations with betadine Painted ischemic toes with betadine, covered with dsd. S/p angio by vascular POD #2, attempt to revascularized and unable to to recannulate distal flow, poor circulation secondary to severe thrombus burden. Pt high risk for BKA Poor healing outcomes with foot and digital amputation General Surgery recommendations appreciated, thank you Left foot x-rays ordered-Impression: no definite cortical destructive changes; soft tissue swelling to left great toe; recommend f/u with MRI to assess early OM which can not be excluded base on this exam Duplex ultrasound- negative for DVT Wound culture -Corynebacterium c/w abx per ID recommendations <Jun Reynoso - Last Filed: 01/20/18 10:05> Objective - Vital Signs/Intake and Output Vital Signs (last 24 hours): Temp Pulse Resp BP Pulse Ox 98.2 F 66 18 112/66 95 01/20/18 08:00 01/20/18 08:00 01/20/18 08:00 01/20/18 08:00 01/20/18 08:00 - Medications Medications: Current Medications Acetaminophen (Tylenol 325mg Tab) 650 mg PO Q6 PRN PRN Reason: Pain, Mild (1-3) Last Admin: 01/19/18 15:55 Dose: 650 mg Alprazolam (Xanax) 0.5 mg PO Q6 PRN PRN Reason: Anxiety Aspirin (Aspirin Chewable) 81 mg PO DAILY [facility] Last Admin: 01/19/18 08:32 Dose: 81 mg Atorvastatin Calcium (Lipitor) 40 mg PO HS [facility] Last Admin: 01/19/18 21:01 Dose: 40 mg Carvedilol (Coreg) 3.125 mg PO Q12 [facility] Last Admin: 01/19/18 20:51 Dose: 3.125 mg Clopidogrel Bisulfate (Plavix) 75 mg PO DAILY [facility] Last Admin: 01/19/18 08:35 Dose: 75 mg Dextrose (Dextrose 50% Inj) 0 ml IV STAT PRN; Protocol PRN Reason: Hypoglycemia Protocol Dextrose (Glutose 15) 0 gm PO ONCE PRN; Protocol PRN Reason: Hypoglycemia Protocol Fluoxetine HCl (Prozac) 20 mg PO DAILY [facility] Last Admin: 01/19/18 08:36 Dose: 20 mg Furosemide (Lasix) 20 mg PO BID [facility] Last Admin: 01/19/18 16:00 Dose: 20 mg Glucagon (Glucagen Diagnostic Kit) 0 mg IM STAT PRN; Protocol PRN Reason: Hypoglycemia Protocol Hydromorphone HCl (Dilaudid) 0.25 mg IVP DAILY PRN PRN Reason: Pain, moderate (4-7) Hydromorphone HCl (Dilaudid) 0.5 mg IVP DAILY PRN PRN Reason: Pain, severe (8-10) Cefepime HCl 1 gm/ Sodium (Chloride) 100 mls @ 100 mls/hr IVPB Q12 [facility] PRN Reason: Protocol Last Admin: 01/19/18 20:55 Dose: 100 mls/hr Vancomycin HCl 1 gm/ Sodium (Chloride) 250 mls @ 166.667 mls/hr IVPB DAILY [facility] PRN Reason: Protocol Last Admin: 01/19/18 09:34 Dose: 166.667 mls/hr Insulin Detemir (Levemir) 10 units SC HS [facility] Last Admin: 01/19/18 21:01 Dose: 10 units Insulin Human Regular (Humulin R) 0 units SC ACHS [facility] PRN Reason: Protocol Last Admin: 01/20/18 07:08 Dose: 2 units Isosorbide Mononitrate (Imdur Er) 30 mg PO DAILY [facility] Last Admin: 01/19/18 08:30 Dose: 30 mg Lidocaine (Lidoderm) 2 ea TD DAILY [facility] Last Admin: 01/19/18 08:34 Dose: 2 ea Lisinopril (Zestril) 5 mg PO DAILY [facility] Last Admin: 01/19/18 08:33 Dose: 5 mg Lorazepam (Ativan) 0.5 mg IVP Q6 PRN PRN Reason: Anxiety Last Admin: 01/19/18 20:50 Dose: 0.5 mg Mupirocin (Bactroban Ointment) 1 applic TOP DAILY [facility] Last Admin: 01/19/18 08:36 Dose: 1 applic Ondansetron HCl (Zofran Inj) 4 mg IVP Q4 PRN PRN Reason: Nausea/Vomiting - Labs Labs: 01/16/18 06:15 01/16/18 06:15 PT 11.7 Seconds (9.8-13.1) 01/15/18 12:05 INR 1.1 (0.9-1.2) 01/15/18 12:05 APTT 55.5 Seconds (25.6-37.1) H D 01/19/18 17:12 Assessment and Plan - Assessment and Plan (Free Text) Plan: discussed with patient and family . acute onset ischemia and no re-vasc possible . Needs leg amp. /Medical condition does not allow multiple visits to OR ./DR Reynoso
--- NOTE | 2018-01-19 16:27 | CP.PCM.CON ---
History of Present Illness - History of Present Illness History of Present Illness: SURGERY CONSULT NOTE FOR DR. COLON 67F presents with left leg pain from the calves to the foot. Patient has been dealing with left foot ulcers and necrosis that has been going on for 11 months. She states the pain this time stated about one week ago. She describes is as sharp and shooting. Nothing she has been giving seems to help the pain. She denies loss of sensation or motor function. PMH: DM2, HTN, HLD, [place], CVA, chronic back pain, hemorrhagic stroke, osteomyelitis PSH: left foot surgery: partial resection of distal left 1st metatarsal, partial resection of base of proximal phalanx, excision of left tibial sesamoid and debridement of ulcers FH: [place] - mother SH: former smoker-1/2 ppd for 25 years, no ETOH, no illicit drug use Past Patient History - Infectious Disease Hx of Infectious Diseases: None - Tetanus Immunizations Tetanus Immunization: Unknown - Past Medical History & Family History Past Medical History?: Yes - Past Social History Smoking Status: Former Smoker - CARDIAC Hx Hypercholesterolemia: Yes Hx Hypertension: Yes - PULMONARY Hx Respiratory Disorders: No - NEUROLOGICAL Hx Neurological Disorder: Yes HX Cerebrovascular Accident: Yes (left sided weakness) - HEENT Hx HEENT Problems: No - ENDOCRINE/METABOLIC Hx Endocrine Disorders: Yes Hx Diabetes Mellitus Type 2: Yes - HEMATOLOGICAL/ONCOLOGICAL Hx Blood Disorders: No - INTEGUMENTARY Hx Dermatological Problems: No - MUSCULOSKELETAL/RHEUMATOLOGICAL Hx Musculoskeletal Disorders: Yes Hx Falls: Yes (fell 6 months ago) Other/Comment: hx of chronic back pain - GASTROINTESTINAL Hx Gastrointestinal Disorders: No - GENITOURINARY/GYNECOLOGICAL Hx Genitourinary Disorders: No - PSYCHIATRIC Hx Psychophysiologic Disorder: No Hx Substance Use: No - SURGICAL HISTORY Hx Coronary Stent: Yes - ANESTHESIA Hx Anesthesia: Yes Hx Anesthesia Reactions: No Meds Allergies/Adverse Reactions: Allergies Allergy/AdvReac Type Severity Reaction Status Date / Time No Known Allergies Allergy Verified 05/14/16 14:21 - Medications Medications: Current Medications Acetaminophen (Tylenol 325mg Tab) 650 mg PO Q6 PRN PRN Reason: Pain, Mild (1-3) Last Admin: 01/19/18 15:55 Dose: 650 mg Alprazolam (Xanax) 0.5 mg PO Q6 PRN PRN Reason: Anxiety Aspirin (Aspirin Chewable) 81 mg PO DAILY [facility] Last Admin: 01/19/18 08:32 Dose: 81 mg Atorvastatin Calcium (Lipitor) 40 mg PO HS [facility] Last Admin: 01/18/18 22:39 Dose: 40 mg Carvedilol (Coreg) 3.125 mg PO Q12 [facility] Last Admin: 01/19/18 08:37 Dose: 3.125 mg Clopidogrel Bisulfate (Plavix) 75 mg PO DAILY [facility] Last Admin: 01/19/18 08:35 Dose: 75 mg Dextrose (Dextrose 50% Inj) 0 ml IV STAT PRN; Protocol PRN Reason: Hypoglycemia Protocol Dextrose (Glutose 15) 0 gm PO ONCE PRN; Protocol PRN Reason: Hypoglycemia Protocol Fluoxetine HCl (Prozac) 20 mg PO DAILY [facility] Last Admin: 01/19/18 08:36 Dose: 20 mg Furosemide (Lasix) 20 mg PO BID [facility] Last Admin: 01/19/18 16:00 Dose: 20 mg Glucagon (Glucagen Diagnostic Kit) 0 mg IM STAT PRN; Protocol PRN Reason: Hypoglycemia Protocol Hydromorphone HCl (Dilaudid) 0.25 mg IVP DAILY PRN PRN Reason: Pain, moderate (4-7) Hydromorphone HCl (Dilaudid) 0.5 mg IVP DAILY PRN PRN Reason: Pain, severe (8-10) Cefepime HCl 1 gm/ Sodium (Chloride) 100 mls @ 100 mls/hr IVPB Q12 [facility] PRN Reason: Protocol Last Admin: 01/19/18 08:28 Dose: 100 mls/hr Vancomycin HCl 1 gm/ Sodium (Chloride) 250 mls @ 166.667 mls/hr IVPB DAILY [facility] PRN Reason: Protocol Last Admin: 01/19/18 09:34 Dose: 166.667 mls/hr Heparin Sodium/Dextrose (Heparin 25,000 Units/250ml In D5w) 25,000 units in 250 mls @ 6 mls/hr IV .Q24H [facility] PRN Reason: Protocol Last Admin: 01/19/18 05:32 Dose: Not Given Insulin Detemir (Levemir) 10 units SC HS [facility] Last Admin: 01/18/18 22:00 Dose: 10 units Insulin Human Regular (Humulin R) 0 units SC ACHS [facility] PRN Reason: Protocol Last Admin: 01/19/18 12:20 Dose: 2 units Isosorbide Mononitrate (Imdur Er) 30 mg PO DAILY [facility] Last Admin: 01/19/18 08:30 Dose: 30 mg Lidocaine (Lidoderm) 2 ea TD DAILY [facility] Last Admin: 01/19/18 08:34 Dose: 2 ea Lisinopril (Zestril) 5 mg PO DAILY [facility] Last Admin: 01/19/18 08:33 Dose: 5 mg Mupirocin (Bactroban Ointment) 1 applic TOP DAILY [facility] Last Admin: 01/19/18 08:36 Dose: 1 applic Ondansetron HCl (Zofran Inj) 4 mg IVP Q4 PRN PRN Reason: Nausea/Vomiting Physical Exam - Constitutional Appears: Well, Non-toxic, No Acute Distress - ENT Exam ENT Exam: Mucous Membranes Moist - Respiratory Exam Respiratory Exam: Clear to Auscultation Bilateral, NORMAL BREATHING PATTERN - Cardiovascular Exam Cardiovascular Exam: REGULAR RHYTHM, +S1, +S2 - GI/Abdominal Exam GI & Abdominal Exam: Soft. absent: Distended, Firm, Guarding, Rebound, Rigid, Tenderness - Extremities Exam Extremities exam: Positive for: tenderness Additional comments: severe left leg pain on palpation, especially in the calf and foot region. left 2nd digit of toes is necrotic Left base of Hallux has 1cm wound that approx stage 3/4 - Neurological Exam Neurological exam: Alert, Oriented x3 - Psychiatric Exam Psychiatric exam: Normal Affect, Normal Mood - Skin Skin Exam: Dry, Intact, Normal Color, Warm Results - Vital Signs Recent Vital Signs: Last Vital Signs Temp 99.2 F 01/19/18 15:54 Pulse 102 H 01/19/18 15:54 Resp 20 01/19/18 15:54 BP 127/74 01/19/18 16:00 Pulse Ox 94 L 01/19/18 15:54 - Labs Result Diagrams: 01/16/18 06:15 01/16/18 06:15 Labs: Laboratory Results - last 24 hr 01/18/18 01/18/18 01/18/18 17:18 17:56 21:20 APTT 84.6 H D POC Glucose (mg/dL) 214 H 202 H 01/19/18 01/19/18 01/19/18 00:10 04:20 05:13 APTT 49.9 H D 43.5 H D POC Glucose (mg/dL) 141 H 01/19/18 01/19/18 10:39 15:47 APTT POC Glucose (mg/dL) 160 H 257 H Assessment & Plan - Assessment and Plan (Free Text) Assessment: 67F with left chronic limb Ischemia with necrotic toe and non-healing ulcer IR Cath: shows poor flow due to severe thrombus burden which was unable to be treated via angiojet, unable to use TPA due to recent hemorrhagic stroke PVR: showed no pulse to left posterior tibial artery Plan: - Wound care - Continue anticoagulation - Patient agreeable to amputation Further recs will discuss with Dr. Gino Hill, PGY2
--- NOTE | 2018-01-19 18:04 | CP.PCM.PN ---
Subjective - Date & Time of Evaluation Date of Evaluation: 01/19/18 Time of Evaluation: 10:00 - Subjective Subjective: seen by surgery will need amp Objective - Vital Signs/Intake and Output Vital Signs (last 24 hours): Temp Pulse Resp BP Pulse Ox 99.2 F 102 H 20 127/74 94 L 01/19/18 15:54 01/19/18 15:54 01/19/18 15:54 01/19/18 16:00 01/19/18 15:54 - Medications Medications: Current Medications Acetaminophen (Tylenol 325mg Tab) 650 mg PO Q6 PRN PRN Reason: Pain, Mild (1-3) Last Admin: 01/19/18 15:55 Dose: 650 mg Alprazolam (Xanax) 0.5 mg PO Q6 PRN PRN Reason: Anxiety Aspirin (Aspirin Chewable) 81 mg PO DAILY [facility] Last Admin: 01/19/18 08:32 Dose: 81 mg Atorvastatin Calcium (Lipitor) 40 mg PO HS [facility] Last Admin: 01/18/18 22:39 Dose: 40 mg Carvedilol (Coreg) 3.125 mg PO Q12 [facility] Last Admin: 01/19/18 08:37 Dose: 3.125 mg Clopidogrel Bisulfate (Plavix) 75 mg PO DAILY [facility] Last Admin: 01/19/18 08:35 Dose: 75 mg Dextrose (Dextrose 50% Inj) 0 ml IV STAT PRN; Protocol PRN Reason: Hypoglycemia Protocol Dextrose (Glutose 15) 0 gm PO ONCE PRN; Protocol PRN Reason: Hypoglycemia Protocol Fluoxetine HCl (Prozac) 20 mg PO DAILY [facility] Last Admin: 01/19/18 08:36 Dose: 20 mg Furosemide (Lasix) 20 mg PO BID [facility] Last Admin: 01/19/18 16:00 Dose: 20 mg Glucagon (Glucagen Diagnostic Kit) 0 mg IM STAT PRN; Protocol PRN Reason: Hypoglycemia Protocol Hydromorphone HCl (Dilaudid) 0.25 mg IVP DAILY PRN PRN Reason: Pain, moderate (4-7) Hydromorphone HCl (Dilaudid) 0.5 mg IVP DAILY PRN PRN Reason: Pain, severe (8-10) Cefepime HCl 1 gm/ Sodium (Chloride) 100 mls @ 100 mls/hr IVPB Q12 [facility] PRN Reason: Protocol Last Admin: 01/19/18 08:28 Dose: 100 mls/hr Vancomycin HCl 1 gm/ Sodium (Chloride) 250 mls @ 166.667 mls/hr IVPB DAILY [facility] PRN Reason: Protocol Last Admin: 01/19/18 09:34 Dose: 166.667 mls/hr Insulin Detemir (Levemir) 10 units SC HS [facility] Last Admin: 01/18/18 22:00 Dose: 10 units Insulin Human Regular (Humulin R) 0 units SC ACHS [facility] PRN Reason: Protocol Last Admin: 01/19/18 17:19 Dose: 4 units Isosorbide Mononitrate (Imdur Er) 30 mg PO DAILY [facility] Last Admin: 01/19/18 08:30 Dose: 30 mg Lidocaine (Lidoderm) 2 ea TD DAILY [facility] Last Admin: 01/19/18 08:34 Dose: 2 ea Lisinopril (Zestril) 5 mg PO DAILY [facility] Last Admin: 01/19/18 08:33 Dose: 5 mg Lorazepam (Ativan) 0.5 mg IVP Q6 PRN PRN Reason: Anxiety Mupirocin (Bactroban Ointment) 1 applic TOP DAILY [facility] Last Admin: 01/19/18 08:36 Dose: 1 applic Ondansetron HCl (Zofran Inj) 4 mg IVP Q4 PRN PRN Reason: Nausea/Vomiting - Labs Labs: 01/16/18 06:15 01/16/18 06:15 PT 11.7 Seconds (9.8-13.1) 01/15/18 12:05 INR 1.1 (0.9-1.2) 01/15/18 12:05 APTT 55.5 Seconds (25.6-37.1) H D 01/19/18 17:12 - Constitutional Appears: Non-toxic, Chronically Ill - Head Exam Head Exam: NORMOCEPHALIC - Eye Exam Eye Exam: PERRL. absent: Scleral icterus - ENT Exam ENT Exam: Mucous Membranes Dry - Neck Exam Neck Exam: absent: Lymphadenopathy - Respiratory Exam Respiratory Exam: Decreased Breath Sounds - Cardiovascular Exam Cardiovascular Exam: REGULAR RHYTHM - GI/Abdominal Exam GI & Abdominal Exam: Distended - Rectal Exam Rectal Exam: Deferred - Extremities Exam Extremities Exam: Pedal Edema, Tenderness - Back Exam Back Exam: absent: CVA tenderness (L), CVA tenderness (R), paraspinal tenderness - Neurological Exam Neurological Exam: Alert, Awake, Oriented x3 Neuro motor strength exam: Left Upper Extremity: 4, Right Upper Extremity: 4, Left Lower Extremity: 4, Right Lower Extremity: 4 - Psychiatric Exam Psychiatric exam: Depressed Assessment and Plan (1) Gangrene Status: Acute (2) Acute kidney injury Status: Acute (3) CAD (coronary artery disease) Status: Acute (4) Cardiomyopathy, dilated Status: Acute (5) Diabetic foot ulcer Assessment & Plan: 67F with left chronic limb Ischemia with necrotic toe and non-healing ulcer IR Cath: shows poor flow due to severe thrombus burden which was unable to be treated via angiojet, unable to use TPA due to recent hemorrhagic stroke PVR: showed no pulse to left posterior tibial artery will likely need amp Status: Acute (6) Hyperglycemia due to type 2 diabetes mellitus Status: Acute (7) Osteomyelitis Status: Acute
[2018-01-19] MEDS: Insulin Detemir 100 Units/ml Inj SC SCH (21:01)
--- NOTE | 2018-01-19 23:30 | CP.PCM.CON ---
History of Present Illness - History of Present Illness History of Present Illness: Consultation for CLI : HPI: 67-year-old female with past medical history significant for hypertension diabetes mellitus who presented on 14 January with critical limb ischemia and gangrenous second and third digits of the left lower extremity patient had prior history of coronary artery disease ischemic cardiomyopathy ejection fraction 2025% and was not revascularized as per the family. She underwent a peripheral angiogram at [facility] on Wednesday with attempt at AngioJet thrombectomy with [employer] of the left SFA in-stent thrombosis unable to have recanalized distal flow secondary to severely heavy thrombus burden due to recent history of hemorrhagic stroke in September of last year we were unable to use the TPA and EKOS catheter. He was resumed on IV heparin and IV Integrilin for 48 hours. Review of Systems - Review of Systems All systems: reviewed and no additional remarkable complaints except - Constitutional Constitutional: As Per HPI - EENT Eyes: As Per HPI Ears: As Per HPI Nose/Mouth/Throat: As Per HPI - Breasts Breasts: As Per HPI - Cardiovascular Cardiovascular: As Per HPI - Respiratory Respiratory: As Per HPI - Gastrointestinal Gastrointestinal: As Per HPI - Genitourinary Genitourinary: As Per HPI - Reproductive: Female Reproductive:Female: As Per HPI - Musculoskeletal Musculoskeletal: As Per HPI - Integumentary Integumentary: As Per HPI - Neurological Neurological: As Per HPI - Psychiatric Psychiatric: As Per HPI - Endocrine Endocrine: As Per HPI - Hematologic/Lymphatic Hematologic: As Per HPI Past Patient History - Infectious Disease Hx of Infectious Diseases: None - Tetanus Immunizations Tetanus Immunization: Unknown - Past Medical History & Family History Past Medical History?: Yes - Past Social History Smoking Status: Former Smoker - CARDIAC Hx Hypercholesterolemia: Yes Hx Hypertension: Yes - PULMONARY Hx Respiratory Disorders: No - NEUROLOGICAL Hx Neurological Disorder: Yes HX Cerebrovascular Accident: Yes (left sided weakness) - HEENT Hx HEENT Problems: No - ENDOCRINE/METABOLIC Hx Endocrine Disorders: Yes Hx Diabetes Mellitus Type 2: Yes - HEMATOLOGICAL/ONCOLOGICAL Hx Blood Disorders: No - INTEGUMENTARY Hx Dermatological Problems: No - MUSCULOSKELETAL/RHEUMATOLOGICAL Hx Musculoskeletal Disorders: Yes Hx Falls: Yes (fell 6 months ago) Other/Comment: hx of chronic back pain - GASTROINTESTINAL Hx Gastrointestinal Disorders: No - GENITOURINARY/GYNECOLOGICAL Hx Genitourinary Disorders: No - PSYCHIATRIC Hx Psychophysiologic Disorder: No Hx Substance Use: No - SURGICAL HISTORY Hx Coronary Stent: Yes - ANESTHESIA Hx Anesthesia: Yes Hx Anesthesia Reactions: No Meds Allergies/Adverse Reactions: Allergies Allergy/AdvReac Type Severity Reaction Status Date / Time No Known Allergies Allergy Verified 05/14/16 14:21 - Medications Medications: Current Medications Acetaminophen (Tylenol 325mg Tab) 650 mg PO Q6 PRN PRN Reason: Pain, Mild (1-3) Last Admin: 01/19/18 15:55 Dose: 650 mg Alprazolam (Xanax) 0.5 mg PO Q6 PRN PRN Reason: Anxiety Aspirin (Aspirin Chewable) 81 mg PO DAILY [facility] Last Admin: 01/19/18 08:32 Dose: 81 mg Atorvastatin Calcium (Lipitor) 40 mg PO HS [facility] Last Admin: 01/19/18 21:01 Dose: 40 mg Carvedilol (Coreg) 3.125 mg PO Q12 [facility] Last Admin: 01/19/18 20:51 Dose: 3.125 mg Clopidogrel Bisulfate (Plavix) 75 mg PO DAILY [facility] Last Admin: 01/19/18 08:35 Dose: 75 mg Dextrose (Dextrose 50% Inj) 0 ml IV STAT PRN; Protocol PRN Reason: Hypoglycemia Protocol Dextrose (Glutose 15) 0 gm PO ONCE PRN; Protocol PRN Reason: Hypoglycemia Protocol Fluoxetine HCl (Prozac) 20 mg PO DAILY [facility] Last Admin: 01/19/18 08:36 Dose: 20 mg Furosemide (Lasix) 20 mg PO BID [facility] Last Admin: 01/19/18 16:00 Dose: 20 mg Glucagon (Glucagen Diagnostic Kit) 0 mg IM STAT PRN; Protocol PRN Reason: Hypoglycemia Protocol Hydromorphone HCl (Dilaudid) 0.25 mg IVP DAILY PRN PRN Reason: Pain, moderate (4-7) Hydromorphone HCl (Dilaudid) 0.5 mg IVP DAILY PRN PRN Reason: Pain, severe (8-10) Cefepime HCl 1 gm/ Sodium (Chloride) 100 mls @ 100 mls/hr IVPB Q12 [facility] PRN Reason: Protocol Last Admin: 01/19/18 20:55 Dose: 100 mls/hr Vancomycin HCl 1 gm/ Sodium (Chloride) 250 mls @ 166.667 mls/hr IVPB DAILY [facility] PRN Reason: Protocol Last Admin: 01/19/18 09:34 Dose: 166.667 mls/hr Insulin Detemir (Levemir) 10 units SC HS [facility] Last Admin: 01/19/18 21:01 Dose: 10 units Insulin Human Regular (Humulin R) 0 units SC ACHS [facility] PRN Reason: Protocol Last Admin: 01/19/18 22:28 Dose: Not Given Isosorbide Mononitrate (Imdur Er) 30 mg PO DAILY [facility] Last Admin: 01/19/18 08:30 Dose: 30 mg Lidocaine (Lidoderm) 2 ea TD DAILY [facility] Last Admin: 01/19/18 08:34 Dose: 2 ea Lisinopril (Zestril) 5 mg PO DAILY [facility] Last Admin: 01/19/18 08:33 Dose: 5 mg Lorazepam (Ativan) 0.5 mg IVP Q6 PRN PRN Reason: Anxiety Last Admin: 01/19/18 20:50 Dose: 0.5 mg Mupirocin (Bactroban Ointment) 1 applic TOP DAILY [facility] Last Admin: 01/19/18 08:36 Dose: 1 applic Ondansetron HCl (Zofran Inj) 4 mg IVP Q4 PRN PRN Reason: Nausea/Vomiting Physical Exam - Constitutional Appears: Well, In Acute Distress - Head Exam Head Exam: ATRAUMATIC, NORMAL INSPECTION, NORMOCEPHALIC - Eye Exam Eye Exam: EOMI, Normal appearance, PERRL Pupil Exam: NORMAL ACCOMODATION, PERRL - ENT Exam ENT Exam: Mucous Membranes Moist, Normal Exam - Neck Exam Neck exam: Positive for: Normal Inspection - Respiratory Exam Respiratory Exam: Clear to Auscultation Bilateral, NORMAL BREATHING PATTERN - Cardiovascular Exam Cardiovascular Exam: REGULAR RHYTHM, +S1, +S2, Systolic Murmur - GI/Abdominal Exam GI & Abdominal Exam: Normal Bowel Sounds, Soft. absent: Tenderness - Extremities Exam Additional comments: absent pulses gangrenous toes - Back Exam Back exam: NORMAL INSPECTION - Neurological Exam Neurological exam: Alert, CN II-XII Intact, Normal Gait, Oriented x3, Reflexes Normal - Psychiatric Exam Psychiatric exam: Normal Affect, Normal Mood - Skin Skin Exam: Dry, Intact, Normal Color, Warm Results - Vital Signs Recent Vital Signs: Last Vital Signs Temp 98.6 F 01/19/18 19:32 Pulse 95 H 01/19/18 20:51 Resp 20 01/19/18 19:32 BP 118/73 01/19/18 20:51 Pulse Ox 96 01/19/18 19:32 - Labs Result Diagrams: 01/16/18 06:15 01/16/18 06:15 Labs: Laboratory Results - last 24 hr 01/19/18 01/19/18 01/19/18 00:10 04:20 05:13 APTT 49.9 H D 43.5 H D POC Glucose (mg/dL) 141 H 01/19/18 01/19/18 01/19/18 10:39 15:47 17:12 APTT 55.5 H D POC Glucose (mg/dL) 160 H 257 H Assessment & Plan (1) Gangrene Assessment and Plan: CLI cont on IV heparin keep pt on asa, plavix , statins to evaluate patient for bka pt high risk for surgery but not prohibitive Status: Acute (2) CAD (coronary artery disease) Assessment and Plan: per family known history of triple vessel CAD keep pt on asa, plavix, statins keep pt on bb Status: Acute (3) Cardiomyopathy, dilated Assessment and Plan: EF 20-25% BB , acei , diuretics Status: Acute (4) Heart failure, left, with LVEF <=30% Status: Acute (5) HTN (hypertension) Status: Chronic (6) History of CVA (cerebrovascular accident) Status: Chronic
[2018-01-20] MEDS: Insulin Regular 100 units/ml SC SCH ×4 (07:08→21:22)
--- NOTE | 2018-01-20 08:30 | CP.PCM.PN ---
Subjective - Date & Time of Evaluation Date of Evaluation: 01/20/18 Time of Evaluation: 08:28 - Subjective Subjective: Surgery Progress note: Dr. Christian 67 year old female seen at bedside this morning. Denies of any acute overnight events. Reports of pain on the left leg. Denies of recent F/N/V/C/SOB/CP. No new complains. Objective - Vital Signs/Intake and Output Vital Signs (last 24 hours): Temp Pulse Resp BP Pulse Ox 98.2 F 66 18 112/66 95 01/20/18 08:00 01/20/18 08:00 01/20/18 08:00 01/20/18 08:00 01/20/18 08:00 - Medications Medications: Current Medications Acetaminophen (Tylenol 325mg Tab) 650 mg PO Q6 PRN PRN Reason: Pain, Mild (1-3) Last Admin: 01/19/18 15:55 Dose: 650 mg Alprazolam (Xanax) 0.5 mg PO Q6 PRN PRN Reason: Anxiety Aspirin (Aspirin Chewable) 81 mg PO DAILY [facility] Last Admin: 01/19/18 08:32 Dose: 81 mg Atorvastatin Calcium (Lipitor) 40 mg PO HS [facility] Last Admin: 01/19/18 21:01 Dose: 40 mg Carvedilol (Coreg) 3.125 mg PO Q12 [facility] Last Admin: 01/19/18 20:51 Dose: 3.125 mg Clopidogrel Bisulfate (Plavix) 75 mg PO DAILY [facility] Last Admin: 01/19/18 08:35 Dose: 75 mg Dextrose (Dextrose 50% Inj) 0 ml IV STAT PRN; Protocol PRN Reason: Hypoglycemia Protocol Dextrose (Glutose 15) 0 gm PO ONCE PRN; Protocol PRN Reason: Hypoglycemia Protocol Fluoxetine HCl (Prozac) 20 mg PO DAILY [facility] Last Admin: 01/19/18 08:36 Dose: 20 mg Furosemide (Lasix) 20 mg PO BID [facility] Last Admin: 01/19/18 16:00 Dose: 20 mg Glucagon (Glucagen Diagnostic Kit) 0 mg IM STAT PRN; Protocol PRN Reason: Hypoglycemia Protocol Hydromorphone HCl (Dilaudid) 0.25 mg IVP DAILY PRN PRN Reason: Pain, moderate (4-7) Hydromorphone HCl (Dilaudid) 0.5 mg IVP DAILY PRN PRN Reason: Pain, severe (8-10) Cefepime HCl 1 gm/ Sodium (Chloride) 100 mls @ 100 mls/hr IVPB Q12 [facility] PRN Reason: Protocol Last Admin: 01/19/18 20:55 Dose: 100 mls/hr Vancomycin HCl 1 gm/ Sodium (Chloride) 250 mls @ 166.667 mls/hr IVPB DAILY [facility] PRN Reason: Protocol Last Admin: 01/19/18 09:34 Dose: 166.667 mls/hr Insulin Detemir (Levemir) 10 units SC HS [facility] Last Admin: 01/19/18 21:01 Dose: 10 units Insulin Human Regular (Humulin R) 0 units SC ACHS [facility] PRN Reason: Protocol Last Admin: 01/20/18 07:08 Dose: 2 units Isosorbide Mononitrate (Imdur Er) 30 mg PO DAILY [facility] Last Admin: 01/19/18 08:30 Dose: 30 mg Lidocaine (Lidoderm) 2 ea TD DAILY [facility] Last Admin: 01/19/18 08:34 Dose: 2 ea Lisinopril (Zestril) 5 mg PO DAILY [facility] Last Admin: 01/19/18 08:33 Dose: 5 mg Lorazepam (Ativan) 0.5 mg IVP Q6 PRN PRN Reason: Anxiety Last Admin: 01/19/18 20:50 Dose: 0.5 mg Mupirocin (Bactroban Ointment) 1 applic TOP DAILY [facility] Last Admin: 01/19/18 08:36 Dose: 1 applic Ondansetron HCl (Zofran Inj) 4 mg IVP Q4 PRN PRN Reason: Nausea/Vomiting - Labs Labs: 01/16/18 06:15 01/16/18 06:15 PT 11.7 Seconds (9.8-13.1) 01/15/18 12:05 INR 1.1 (0.9-1.2) 01/15/18 12:05 APTT 55.5 Seconds (25.6-37.1) H D 01/19/18 17:12 - Constitutional Appears: Well, Non-toxic, No Acute Distress - Head Exam Head Exam: ATRAUMATIC - ENT Exam ENT Exam: Normal Exam - Neck Exam Neck Exam: Normal Inspection - Respiratory Exam Respiratory Exam: NORMAL BREATHING PATTERN - GI/Abdominal Exam GI & Abdominal Exam: Soft. absent: Rigid, Hernia, Mass - Rectal Exam Rectal Exam: Deferred - Extremities Exam Extremities Exam: Calf Tenderness, Tenderness. absent: Normal Capillary Refill Additional comments: severe left leg pain on palpation, especially in the calf and foot region. left 2nd digit of toes is necrotic Left base of Hallux has 1cm wound that approx stage 3/4 - Back Exam Back Exam: NORMAL INSPECTION - Neurological Exam Neurological Exam: Alert, Awake, Oriented x3 - Psychiatric Exam Psychiatric exam: Normal Affect, Normal Mood Assessment and Plan - Assessment and Plan (Free Text) Assessment: 67F with left chronic limb Ischemia with necrotic toe and non-healing ulcer IR Cath: shows poor flow due to severe thrombus burden which was unable to be treated via angiojet, unable to use TPA due to recent hemorrhagic stroke PVR: showed no pulse to left posterior tibial artery Plan: - Wound care - Continue anticoagulation - Patient agreeable to amputation Further recs will discuss with Dr. Christian
--- NOTE | 2018-01-20 09:19 | CP.PCM.PN ---
Subjective - Date & Time of Evaluation Date of Evaluation: 01/20/18 Time of Evaluation: 07:30 - Subjective Subjective: Pt seen evaluated at bedside this am; resting comfortably in bed. Has no new complaints/issues today. Objective - Vital Signs/Intake and Output Vital Signs (last 24 hours): Temp Pulse Resp BP Pulse Ox 98.2 F 66 18 112/66 95 01/20/18 08:00 01/20/18 08:00 01/20/18 08:00 01/20/18 08:00 01/20/18 08:00 - Medications Medications: Current Medications Acetaminophen (Tylenol 325mg Tab) 650 mg PO Q6 PRN PRN Reason: Pain, Mild (1-3) Last Admin: 01/19/18 15:55 Dose: 650 mg Alprazolam (Xanax) 0.5 mg PO Q6 PRN PRN Reason: Anxiety Aspirin (Aspirin Chewable) 81 mg PO DAILY [facility] Last Admin: 01/19/18 08:32 Dose: 81 mg Atorvastatin Calcium (Lipitor) 40 mg PO HS [facility] Last Admin: 01/19/18 21:01 Dose: 40 mg Carvedilol (Coreg) 3.125 mg PO Q12 [facility] Last Admin: 01/19/18 20:51 Dose: 3.125 mg Clopidogrel Bisulfate (Plavix) 75 mg PO DAILY [facility] Last Admin: 01/19/18 08:35 Dose: 75 mg Dextrose (Dextrose 50% Inj) 0 ml IV STAT PRN; Protocol PRN Reason: Hypoglycemia Protocol Dextrose (Glutose 15) 0 gm PO ONCE PRN; Protocol PRN Reason: Hypoglycemia Protocol Fluoxetine HCl (Prozac) 20 mg PO DAILY [facility] Last Admin: 01/19/18 08:36 Dose: 20 mg Furosemide (Lasix) 20 mg PO BID [facility] Last Admin: 01/19/18 16:00 Dose: 20 mg Glucagon (Glucagen Diagnostic Kit) 0 mg IM STAT PRN; Protocol PRN Reason: Hypoglycemia Protocol Hydromorphone HCl (Dilaudid) 0.25 mg IVP DAILY PRN PRN Reason: Pain, moderate (4-7) Hydromorphone HCl (Dilaudid) 0.5 mg IVP DAILY PRN PRN Reason: Pain, severe (8-10) Cefepime HCl 1 gm/ Sodium (Chloride) 100 mls @ 100 mls/hr IVPB Q12 [facility] PRN Reason: Protocol Last Admin: 01/19/18 20:55 Dose: 100 mls/hr Vancomycin HCl 1 gm/ Sodium (Chloride) 250 mls @ 166.667 mls/hr IVPB DAILY [facility] PRN Reason: Protocol Last Admin: 01/19/18 09:34 Dose: 166.667 mls/hr Insulin Detemir (Levemir) 10 units SC HS [facility] Last Admin: 01/19/18 21:01 Dose: 10 units Insulin Human Regular (Humulin R) 0 units SC ACHS [facility] PRN Reason: Protocol Last Admin: 01/20/18 07:08 Dose: 2 units Isosorbide Mononitrate (Imdur Er) 30 mg PO DAILY [facility] Last Admin: 01/19/18 08:30 Dose: 30 mg Lidocaine (Lidoderm) 2 ea TD DAILY [facility] Last Admin: 01/19/18 08:34 Dose: 2 ea Lisinopril (Zestril) 5 mg PO DAILY [facility] Last Admin: 01/19/18 08:33 Dose: 5 mg Lorazepam (Ativan) 0.5 mg IVP Q6 PRN PRN Reason: Anxiety Last Admin: 01/19/18 20:50 Dose: 0.5 mg Mupirocin (Bactroban Ointment) 1 applic TOP DAILY [facility] Last Admin: 01/19/18 08:36 Dose: 1 applic Ondansetron HCl (Zofran Inj) 4 mg IVP Q4 PRN PRN Reason: Nausea/Vomiting - Labs Labs: 01/16/18 06:15 01/16/18 06:15 PT 11.7 Seconds (9.8-13.1) 01/15/18 12:05 INR 1.1 (0.9-1.2) 01/15/18 12:05 APTT 55.5 Seconds (25.6-37.1) H D 01/19/18 17:12 - Constitutional Appears: Non-toxic - Head Exam Head Exam: NORMAL INSPECTION - Eye Exam Eye Exam: Normal appearance - Respiratory Exam Respiratory Exam: Clear to Ausculation Bilateral, NORMAL BREATHING PATTERN - Cardiovascular Exam Cardiovascular Exam: REGULAR RHYTHM, +S1, +S2 - GI/Abdominal Exam GI & Abdominal Exam: Soft - Extremities Exam Extremities Exam: absent: Pedal Edema Additional comments: L foot- discoloration of first three digits, 2nd digit most discolored painful to touch cool to touch Assessment and Plan - Assessment and Plan (Free Text) Assessment: 67 yo F with PMHx of DM2, HTN, HLD, UT, CVA, chronic back pain, admitted with left lower extremity limb ischemia s/p angiography on 01/[address] [facility]. Plan: # Limb Ischemia - Vascular studies done 01/15/18- evidence of severe limb ischemia - S/p angio by vascular POD #3, - attempt to revascularize unsuccessful due to severe thrombus burden - Vascular surg - Dr. Christian, pt needs BKA, scheduled for tomorrow - Antibiotics as per infectious disease consult, Dr. Palacios; pt had PICC line placed due to poor IV access # Insulin Dependent Type 2 Diabetes - Levemir 10U HS - Hypoglycemia protocol and insulin coverage scale - Accuchecks ACHS # Coronary Artery Disease - Continue w/ aspirin and plavix # Systolic CHF Last echo 05/22/17 showed EF of 20%. -Continue carvedilol 3.125 BID -Continue furosemide 20mg BID -30 mg isosorbide mononitrate -Lisinopril 5mg # Depression - Continue with Fluoxetine # HLD - Continue with Lipitor 40mg HS # DVT prophylaxis - pt for surgery tomorrow - SCD
[2018-01-20] MEDS ORDERED: Lidocaine Hydrochloride 1% 10 ML ONE (10:57)
--- NOTE | 2018-01-20 11:30 | PCM.SURG1 ---
Surgeon's Initial Post Op Note - Surgeon's Notes Surgeon: Brian Montiel MD Pin Drafter Operator: None Type of Anesthesia: Local Pre-Operative Diagnosis: infection requiring longterm IV abx Operative Findings: patent right basilic vein. catheter length: 34 cm. catheter tip: cavoatrial junction Post-Operative Diagnosis: same Operation Performed: RUE PICC Insertion Specimen/Specimens Removed: n/a Estimated Blood Loss: EBL {In ML}: 0 Date of Surgery/Procedure: 01/20/18 Time of Surgery/Procedure: 11:30
--- NOTE | 2018-01-20 11:58 | VASCULAR ---
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 COMPARISON: None. PROCEDURE: 1. Focused ultrasound of the right upper extremity vasculature. 2. Ultrasound-guided access. 3. Insertion of peripherally inserted central venous catheter. 4. Fluoroscopic localization of catheter tip. PRE-PROCEDURE FINDINGS: 1. Patent right basilic vein. POST-PROCEDURE FINDINGS: 1. Placement of 4 Albanian single-lumen PICC. 2. Catheter length: 34 cm. 3. Catheter tip at cavoatrial junction. INTERVENTIONAL RADIOLOGIST: Brian Montiel M.D. (the attending was present for the entire procedure) ANESTHESIA: None. MEDICATION: Lidocaine 1% for local subcutaneous analgesia. COMPLICATIONS: None. RADIATION DOSE: Fluoroscopy Time: 7.8 seconds Cumulative Dose: 0.94 mGy PROCEDURE DESCRIPTION AND FINDINGS: The risks, benefits, alternatives and possible complications of the procedure were fully discussed; all questions were answered and informed consent was obtained. The patient was brought into the interventional suite and a pre-procedure 'time-out' was performed. The patient was placed on the fluoroscopy table in the supine position. The right upper extremity was prepped and draped in the usual sterile fashion. Maximum sterile barrier precautions were maintained throughout the entire procedure. Preliminary ultrasound images of the right upper extremity vasculature demonstrate patency of the right basilic vein. Following subcutaneous infiltration of 1% lidocaine for local analgesia, under ultrasound guidance, a 21-gauge needle was advanced into the right basilic vein with real-time visualization of needle entry. The ultrasound images were permanently recorded and submitted to the PACS. A 0.018 guidewire was advanced centrally to the cavoatrial junction. A 4.5 Albanian peel-away sheath was advanced over the guidewire. After obtaining length measurement, a 4 Albanian single-lumen PICC was placed with the tip of the catheter at the cavoatrial junction. The total length of the catheter is 34 cm. The hub of the PICC was secured to the skin using a sterile adhesive bandage. The patient tolerated the procedure well without immediate post-procedure complications and was transferred back to the floor in stable condition. IMPRESSION: SUCCESSFUL INSERTION OF RIGHT UPPER EXTREMITY PICC. PICC OK TO USE.
[2018-01-20] MEDS: Cefepime 1 GM in Sodium Chloride 0.9% 100 ML IVPB SCH ×2 (12:27→21:22)
[2018-01-20] MEDS: Lidocaine 5% Patch TD SCH (16:25)
[2018-01-20 17:52] LABS: MEAN CORPUSCULAR HEMOGLOBIN 29.4 pg (27.0-31.0); MEAN CORPUSCULAR HGB CONC 33.3 g/dL (33.0-37.0); RBC 2.52 Mil/uL (3.80-5.20); WHITE BLOOD COUNT 13.8 K/uL (4.8-10.8)
[2018-01-20 18:00] LABS: HEMOGLOBIN 7.4 g/dL (12.0-16.0)
--- NOTE | 2018-01-20 18:30 | RAD ---
PROCEDURE: CHEST RADIOGRAPH, 1 VIEW HISTORY: Preoperative examination COMPARISON: 05/28/2017. FINDINGS: LUNGS: The lungs are well inflated and clear. PLEURA: No pneumothorax or pleural fluid seen. CARDIOVASCULAR: Normal. OSSEOUS STRUCTURES: No significant abnormalities. VISUALIZED UPPER ABDOMEN: Normal. OTHER FINDINGS: None. IMPRESSION: No acute findings.
[2018-01-20] MEDS: Sodium Chloride 0.9% 1,000 ML IV SCH (21:21)
[2018-01-20] MEDS: Insulin Detemir 100 Units/ml Inj SC SCH (21:24)
--- NOTE | 2018-01-20 22:18 | CP.PCM.PN ---
Subjective - Date & Time of Evaluation Date of Evaluation: 01/20/18 Time of Evaluation: 19:00 - Subjective Subjective: Podiatry Progress Note- Dr. Reynoso 67 y.o female seen and evaluated with attending for nonhealing left foot ulcer and gangreous 1st, 2nd and 3rd digits with worsening ischemic changes. Patient is s/p angio by vascular POD #3 in which attempted to revascularized and unable to to recannulate distal flow, poor circulation secondary to severe thrombus burden. Pt high risk for BKA. Patient is seen at bedside in NAD and in good spirits. Patient understands that she will be going to surgery tomorrow for a L BKA with Dr. Christian. Reports that she is doing well. Reports that she has very little pain in her leg today. Reports that her son and daughter in law will be present in the AM prior to her surgery. She denies resting calf pain, no calf pain or tenderness. Denies nausea, fever, shortness of breath, chest pain, chills or vomiting. Patient denies of any headache. Objective - Vital Signs/Intake and Output Vital Signs (last 24 hours): Temp Pulse Resp BP Pulse Ox 98.7 F 97 H 18 113/70 98 01/20/18 21:47 01/20/18 21:47 01/20/18 21:47 01/20/18 21:47 01/20/18 21:47 - Medications Medications: Current Medications Acetaminophen (Tylenol 325mg Tab) 650 mg PO Q6 PRN PRN Reason: Pain, Mild (1-3) Last Admin: 01/20/18 21:20 Dose: 650 mg Alprazolam (Xanax) 0.5 mg PO Q6 PRN PRN Reason: Anxiety Aspirin (Aspirin Chewable) 81 mg PO DAILY [facility] Last Admin: 01/20/18 12:24 Dose: 81 mg Atorvastatin Calcium (Lipitor) 40 mg PO HS [facility] Last Admin: 01/20/18 21:22 Dose: 40 mg Carvedilol (Coreg) 3.125 mg PO Q12 [facility] Last Admin: 01/20/18 21:20 Dose: 3.125 mg Clopidogrel Bisulfate (Plavix) 75 mg PO DAILY [facility] Last Admin: 01/20/18 12:28 Dose: 75 mg Dextrose (Dextrose 50% Inj) 0 ml IV STAT PRN; Protocol PRN Reason: Hypoglycemia Protocol Dextrose (Glutose 15) 0 gm PO ONCE PRN; Protocol PRN Reason: Hypoglycemia Protocol Fluoxetine HCl (Prozac) 20 mg PO DAILY [facility] Last Admin: 01/20/18 12:28 Dose: 20 mg Furosemide (Lasix) 20 mg PO BID [facility] Last Admin: 01/20/18 16:23 Dose: 20 mg Glucagon (Glucagen Diagnostic Kit) 0 mg IM STAT PRN; Protocol PRN Reason: Hypoglycemia Protocol Hydromorphone HCl (Dilaudid) 0.25 mg IVP DAILY PRN PRN Reason: Pain, moderate (4-7) Hydromorphone HCl (Dilaudid) 0.5 mg IVP DAILY PRN PRN Reason: Pain, severe (8-10) Cefepime HCl 1 gm/ Sodium (Chloride) 100 mls @ 100 mls/hr IVPB Q12 [facility] PRN Reason: Protocol Last Admin: 01/20/18 21:22 Dose: 100 mls/hr Vancomycin HCl 1 gm/ Sodium (Chloride) 250 mls @ 166.667 mls/hr IVPB DAILY [facility] PRN Reason: Protocol Last Admin: 01/20/18 12:28 Dose: 166.667 mls/hr Sodium Chloride (Sodium Chloride 0.9%) 1,000 mls @ 75 mls/hr IV .[id number] [facility] Last Admin: 01/20/18 21:21 Dose: 75 mls/hr Insulin Detemir (Levemir) 10 units SC HS [facility] Last Admin: 01/20/18 21:24 Dose: 10 units Insulin Human Regular (Humulin R) 0 units SC ACHS [facility] PRN Reason: Protocol Last Admin: 01/20/18 21:22 Dose: Not Given Isosorbide Mononitrate (Imdur Er) 30 mg PO DAILY [facility] Last Admin: 01/20/18 12:25 Dose: 30 mg Lidocaine (Lidoderm) 2 ea TD DAILY [facility] Last Admin: 01/20/18 16:25 Dose: 2 ea Lisinopril (Zestril) 5 mg PO DAILY [facility] Last Admin: 01/20/18 12:29 Dose: 5 mg Lorazepam (Ativan) 0.5 mg IVP Q6 PRN PRN Reason: Anxiety Last Admin: 01/19/18 20:50 Dose: 0.5 mg Mupirocin (Bactroban Ointment) 1 applic TOP DAILY [facility] Last Admin: 01/20/18 12:25 Dose: 1 applic Ondansetron HCl (Zofran Inj) 4 mg IVP Q4 PRN PRN Reason: Nausea/Vomiting - Labs Labs: 01/20/18 16:21 01/16/18 06:15 PT 11.7 Seconds (9.8-13.1) 01/15/18 12:05 INR 1.1 (0.9-1.2) 01/15/18 12:05 APTT 55.5 Seconds (25.6-37.1) H D 01/19/18 17:12 - Constitutional Appears: Well, Non-toxic, No Acute Distress - Extremities Exam Extremities Exam: absent: Calf Tenderness Additional comments: LLE focused physical exam: Vasc: DP pulse nonpalpable. PT pulses nonpalpable, CFT <3 seconds to digits. TG cool to cool. Edema noted to medial aspect of left forefoot Neuro: Gross sensation intact, protective sensation diminished Derm: Ulceration measuring 2.5 cm x 2.5 cm x . 4 cm with 100% fibrous wound base at the medial aspect of the 1st MPJ, severe hallux valgus deformity noted and crossing over 2nd digit. Ulceration has no drainage, no purulence, no odor, periwound slightly erythema, no increase warmth, no fluctance, streaking noted vs erthema noted to dorsum of foot. Superficial ulcerations noted to the 2nd digit secondary to pressure from 1st hallux. 2nd digit with worsen gangrenous changes, now with mummification and dry, blue discoloration noted to the 3rd digit and 4th digit and plantar aspect of sub met 1. Slight macerations to interspaces noted with ulcerations noted to 2nd, 3rd and 4th interspace. Ortho: pain to palpation of medial 1st met head, sub met 1-3, entire digits 1-3 of left foot, patient has generalize pain to the LE extremity - Neurological Exam Neurological Exam: Alert, Awake, Normal Gait - Psychiatric Exam Psychiatric exam: Normal Affect, Normal Mood Assessment and Plan - Assessment and Plan (Free Text) Assessment: 67 y.o female with left lower extremity ischemic with gangrenous forefoot and medial 1st MPJ nonhealing ulceration s/p unsuccessful angiography going for surgery for L BKA tomorrow Plan: Patient examined and evaluated Discussed plan in detail with attending Dr. Reynoso Labs, chart, vitals reviewed S/p angio by vascular POD #3, attempt to revascularized and unable to to recannulate distal flow, poor circulation secondary to severe thrombus burden. Pt high risk for BKA Poor healing outcomes with foot and digital amputation General Surgery- to bring patient to the OR tomorrow for L BKA c/w abx per ID recommendations
[2018-01-20] MEDS ORDERED: Oxycodone/Acetaminophen 5/325 mg Tab PO ONE ×2 (23:20)
[2018-01-21] MEDS ORDERED: Benzocaine/Menthol (Cepacol) Lozenge PO ONE (05:45)
--- NOTE | 2018-01-21 06:57 | CP.PCM.PN ---
Subjective - Date & Time of Evaluation Date of Evaluation: 01/21/18 Time of Evaluation: 07:15 - Subjective Subjective: Pt seen and evaluated at bedside this am; was asleep when narrative writer first entered the room. Pt for surgical procedure today. Objective - Vital Signs/Intake and Output Vital Signs (last 24 hours): Temp Pulse Resp BP Pulse Ox 97.2 F L 84 18 108/68 95 01/21/18 04:00 01/21/18 04:00 01/21/18 04:00 01/21/18 04:00 01/21/18 04:00 - Medications Medications: Current Medications Acetaminophen (Tylenol 325mg Tab) 650 mg PO Q6 PRN PRN Reason: Pain, Mild (1-3) Last Admin: 01/20/18 21:20 Dose: 650 mg Alprazolam (Xanax) 0.5 mg PO Q6 PRN PRN Reason: Anxiety Last Admin: 01/20/18 22:58 Dose: 0.5 mg Aspirin (Aspirin Chewable) 81 mg PO DAILY [facility] Last Admin: 01/20/18 12:24 Dose: 81 mg Atorvastatin Calcium (Lipitor) 40 mg PO HS [facility] Last Admin: 01/20/18 21:22 Dose: 40 mg Carvedilol (Coreg) 3.125 mg PO Q12 [facility] Last Admin: 01/20/18 21:20 Dose: 3.125 mg Clopidogrel Bisulfate (Plavix) 75 mg PO DAILY [facility] Last Admin: 01/20/18 12:28 Dose: 75 mg Dextrose (Dextrose 50% Inj) 0 ml IV STAT PRN; Protocol PRN Reason: Hypoglycemia Protocol Dextrose (Glutose 15) 0 gm PO ONCE PRN; Protocol PRN Reason: Hypoglycemia Protocol Fluoxetine HCl (Prozac) 20 mg PO DAILY [facility] Last Admin: 01/20/18 12:28 Dose: 20 mg Furosemide (Lasix) 20 mg PO BID [facility] Last Admin: 01/20/18 16:23 Dose: 20 mg Glucagon (Glucagen Diagnostic Kit) 0 mg IM STAT PRN; Protocol PRN Reason: Hypoglycemia Protocol Hydromorphone HCl (Dilaudid) 0.25 mg IVP DAILY PRN PRN Reason: Pain, moderate (4-7) Hydromorphone HCl (Dilaudid) 0.5 mg IVP DAILY PRN PRN Reason: Pain, severe (8-10) Cefepime HCl 1 gm/ Sodium (Chloride) 100 mls @ 100 mls/hr IVPB Q12 [facility] PRN Reason: Protocol Last Admin: 01/20/18 21:22 Dose: 100 mls/hr Vancomycin HCl 1 gm/ Sodium (Chloride) 250 mls @ 166.667 mls/hr IVPB DAILY [facility] PRN Reason: Protocol Last Admin: 01/20/18 12:28 Dose: 166.667 mls/hr Sodium Chloride (Sodium Chloride 0.9%) 1,000 mls @ 75 mls/hr IV .[id number] [facility] Last Admin: 01/20/18 21:21 Dose: 75 mls/hr Insulin Detemir (Levemir) 10 units SC HS [facility] Last Admin: 01/20/18 21:24 Dose: 10 units Insulin Human Regular (Humulin R) 0 units SC ACHS [facility] PRN Reason: Protocol Last Admin: 01/20/18 21:22 Dose: Not Given Isosorbide Mononitrate (Imdur Er) 30 mg PO DAILY [facility] Last Admin: 01/20/18 12:25 Dose: 30 mg Lidocaine (Lidoderm) 2 ea TD DAILY [facility] Last Admin: 01/20/18 16:25 Dose: 2 ea Lisinopril (Zestril) 5 mg PO DAILY [facility] Last Admin: 01/20/18 12:29 Dose: 5 mg Lorazepam (Ativan) 0.5 mg IVP Q6 PRN PRN Reason: Anxiety Last Admin: 01/19/18 20:50 Dose: 0.5 mg Mupirocin (Bactroban Ointment) 1 applic TOP DAILY [facility] Last Admin: 01/20/18 12:25 Dose: 1 applic Ondansetron HCl (Zofran Inj) 4 mg IVP Q4 PRN PRN Reason: Nausea/Vomiting - Labs Labs: 01/20/18 16:21 01/16/18 06:15 PT 11.7 Seconds (9.8-13.1) 01/15/18 12:05 INR 1.1 (0.9-1.2) 01/15/18 12:05 APTT 55.5 Seconds (25.6-37.1) H D 01/19/18 17:12 - Constitutional Appears: Non-toxic, No Acute Distress - Eye Exam Eye Exam: Normal appearance - ENT Exam ENT Exam: Mucous Membranes Moist - Respiratory Exam Respiratory Exam: Clear to Ausculation Bilateral, NORMAL BREATHING PATTERN - Cardiovascular Exam Cardiovascular Exam: REGULAR RHYTHM, +S1, +S2 - GI/Abdominal Exam GI & Abdominal Exam: Soft, Normal Bowel Sounds - Extremities Exam Additional comments: necrotic blue-purple discoloration of first, second third digits of left foot cool to touch Assessment and Plan - Assessment and Plan (Free Text) Assessment: 67 yo F with PMHx of DM2, HTN, HLD, VA, CVA, chronic back pain, admitted with left lower extremity limb ischemia s/p angiography on 01/17 at [facility]; unsuccessful revascularization due to thrombus burden; for BKA today. Plan: # Limb Ischemia - Vascular studies done 01/15/18- evidence of severe limb ischemia - S/p angio by vascular POD 01/17 - attempt to revascularize unsuccessful due to severe thrombus burden - Vascular surg - Dr. Christian, pt needs BKA, scheduled for today - Antibiotics as per infectious disease consult, Dr. Palacios; pt had PICC line placed due to poor IV access # Anemia - Due to blood loss after angiogram - S/p 2U PRBC, to get 1 more unit prior to surgery - Repeat CBC at noon # Insulin Dependent Type 2 Diabetes - Levemir 10U HS - Hypoglycemia protocol and insulin coverage scale - Accuchecks ACHS - Diabetic diet (NPO now due to surg procedure) # Coronary Artery Disease - Continue w/ aspirin and plavix (plavix held today for surg procedure) # Systolic CHF Last echo 05/22/17 showed EF of 20%. -Continue carvedilol 3.125 BID -Continue furosemide 20mg BID -30 mg isosorbide mononitrate -Lisinopril 5mg # Depression - Continue with Fluoxetine # HLD - Continue with Lipitor 40mg HS # DVT prophylaxis - pt for surgery tomorrow - SCD
[2018-01-21 07:01] LABS: INR 1.1 (0.9-1.2); PROTHROMBIN TIME 11.7 Seconds (9.8-13.1)
[2018-01-21 07:02] LABS: PARTIAL THROMBOPLASTIN TIME 29.3 Seconds (25.6-37.1)
[2018-01-21] MEDS: Insulin Regular 100 units/ml SC SCH ×6 (07:59→22:27)
[2018-01-21] MEDS: Lidocaine 5% Patch TD SCH ×2 (10:44→18:49)
[2018-01-21] MEDS: Cefepime 1 GM in Sodium Chloride 0.9% 100 ML IVPB SCH ×3 (10:46→21:12)
[2018-01-21] MEDS: Sodium Chloride 0.9% 1,000 ML IV SCH (11:46)
[2018-01-21] MEDS: Benzocaine/Menthol (Cepacol) Lozenge PO PRN (11:48)
[2018-01-21 12:14] LABS: HEMOGLOBIN 12.1 g/dL (12.0-16.0); MEAN CELL VOLUME 88.3 fl (81.0-99.0); MEAN CORPUSCULAR HEMOGLOBIN 29.4 pg (27.0-31.0); MEAN CORPUSCULAR HGB CONC 33.3 g/dL (33.0-37.0); RBC 4.12 Mil/uL (3.80-5.20); RED CELL DISTRIBUTION WIDTH 14.2 % (11.5-14.5); WHITE BLOOD COUNT 13.4 K/uL (4.8-10.8)
[2018-01-21 12:31] LABS: ALB/GLOB RATIO 0.8 (1.0-2.1); ALBUMIN 3.1 g/dL (3.5-5.0); CALCIUM 9.3 mg/dL (8.4-10.2)
[2018-01-21] MEDS ORDERED: ceFAZolin IV 1 gm in Dextrose 0 GM/0 ML BAG IVPB ONE (12:36)
[2018-01-21] MEDS ORDERED: Bupivacaine 0.5% Inj(30mL) ONE (12:37)
--- NOTE | 2018-01-21 14:06 | CP.PCM.PN ---
Subjective - Date & Time of Evaluation Date of Evaluation: 01/21/18 Time of Evaluation: 09:00 - Subjective Subjective: surgery on hold awaiting BKA no fever Objective - Vital Signs/Intake and Output Vital Signs (last 24 hours): Temp Pulse Resp BP Pulse Ox 98.4 F 95 H 20 148/89 95 01/21/18 12:46 01/21/18 12:46 01/21/18 12:46 01/21/18 12:46 01/21/18 12:46 - Medications Medications: Current Medications Acetaminophen (Tylenol 325mg Tab) 650 mg PO Q6 PRN PRN Reason: Pain, Mild (1-3) Last Admin: 01/20/18 21:20 Dose: 650 mg Alprazolam (Xanax) 0.5 mg PO Q6 PRN PRN Reason: Anxiety Last Admin: 01/20/18 22:58 Dose: 0.5 mg Aspirin (Aspirin Chewable) 81 mg PO DAILY [facility] Last Admin: 01/21/18 10:40 Dose: Not Given Atorvastatin Calcium (Lipitor) 40 mg PO HS [facility] Last Admin: 01/20/18 21:22 Dose: 40 mg Benzocaine/Menthol (Cepacol Sore Throat) 1 grazyna PO Q2 PRN PRN Reason: Sore Throat Last Admin: 01/21/18 11:48 Dose: 1 grazyna Carvedilol (Coreg) 3.125 mg PO Q12 [facility] Last Admin: 01/21/18 10:43 Dose: 3.125 mg Clopidogrel Bisulfate (Plavix) 75 mg PO DAILY [facility] Last Admin: 01/20/18 12:28 Dose: 75 mg Dextrose (Dextrose 50% Inj) 0 ml IV STAT PRN; Protocol PRN Reason: Hypoglycemia Protocol Dextrose (Glutose 15) 0 gm PO ONCE PRN; Protocol PRN Reason: Hypoglycemia Protocol Fluoxetine HCl (Prozac) 20 mg PO DAILY [facility] Last Admin: 01/21/18 10:48 Dose: Not Given Furosemide (Lasix) 20 mg PO BID [facility] Last Admin: 01/21/18 10:44 Dose: Not Given Glucagon (Glucagen Diagnostic Kit) 0 mg IM STAT PRN; Protocol PRN Reason: Hypoglycemia Protocol Hydromorphone HCl (Dilaudid) 0.25 mg IVP DAILY PRN PRN Reason: Pain, moderate (4-7) Hydromorphone HCl (Dilaudid) 0.5 mg IVP DAILY PRN PRN Reason: Pain, severe (8-10) Cefepime HCl 1 gm/ Sodium (Chloride) 100 mls @ 100 mls/hr IVPB Q12 [facility] PRN Reason: Protocol Last Admin: 01/21/18 11:52 Dose: 100 mls/hr Vancomycin HCl 1 gm/ Sodium (Chloride) 250 mls @ 166.667 mls/hr IVPB DAILY [facility] PRN Reason: Protocol Last Admin: 01/21/18 10:48 Dose: Not Given Sodium Chloride (Sodium Chloride 0.9%) 1,000 mls @ 75 mls/hr IV .[id number] [facility] Last Admin: 01/21/18 11:46 Dose: 75 mls/hr Insulin Detemir (Levemir) 10 units SC HS [facility] Last Admin: 01/20/18 21:24 Dose: 10 units Insulin Human Regular (Humulin R) 0 units SC ACHS [facility] PRN Reason: Protocol Last Admin: 01/21/18 07:59 Dose: Not Given Isosorbide Mononitrate (Imdur Er) 30 mg PO DAILY [facility] Last Admin: 01/21/18 10:43 Dose: Not Given Lidocaine (Lidoderm) 2 ea TD DAILY [facility] Last Admin: 01/21/18 10:44 Dose: Not Given Lisinopril (Zestril) 5 mg PO DAILY [facility] Last Admin: 01/21/18 11:47 Dose: Not Given Lorazepam (Ativan) 0.5 mg IVP Q6 PRN PRN Reason: Anxiety Last Admin: 01/19/18 20:50 Dose: 0.5 mg Mupirocin (Bactroban Ointment) 1 applic TOP DAILY [facility] Last Admin: 01/21/18 10:40 Dose: Not Given Ondansetron HCl (Zofran Inj) 4 mg IVP Q4 PRN PRN Reason: Nausea/Vomiting - Labs Labs: 01/21/18 12:01 01/21/18 12:01 PT 11.7 Seconds (9.8-13.1) 01/21/18 06:23 INR 1.1 (0.9-1.2) 01/21/18 06:23 APTT 29.3 Seconds (25.6-37.1) D 01/21/18 06:23 - Constitutional Appears: Non-toxic, Chronically Ill - Head Exam Head Exam: NORMOCEPHALIC - Eye Exam Eye Exam: PERRL - ENT Exam ENT Exam: Mucous Membranes Dry - Neck Exam Neck Exam: absent: Lymphadenopathy - Respiratory Exam Respiratory Exam: Decreased Breath Sounds - Cardiovascular Exam Cardiovascular Exam: REGULAR RHYTHM - GI/Abdominal Exam GI & Abdominal Exam: Distended Assessment and Plan (1) Gangrene Status: Acute (2) Acute kidney injury Status: Acute (3) CAD (coronary artery disease) Status: Acute (4) Cardiomyopathy, dilated Status: Acute (5) Diabetic foot ulcer Status: Acute (6) Hyperglycemia due to type 2 diabetes mellitus Status: Acute (7) Osteomyelitis Status: Acute - Assessment and Plan (Free Text) Assessment: 67 y.o female seen and evaluated with attending for nonhealing left foot ulcer and gangreous 1st, 2nd and 3rd digits with worsening ischemic changes. Patient is s/p angio by vascular POD #3 in which attempted to revascularized and unable to to recannulate distal flow, poor circulation secondary to severe thrombus burden. Pt high risk for BKA
[2018-01-21] MEDS ORDERED: Heparin 25,000units in D5W 25,000 UNITS/250 ML BAG IV SCH (15:15)
--- NOTE | 2018-01-21 15:50 | CP.PCM.PN ---
Subjective - Date & Time of Evaluation Date of Evaluation: 01/21/18 Time of Evaluation: 15:49 - Subjective Subjective: severe pain and discomfort Objective - Vital Signs/Intake and Output Vital Signs (last 24 hours): Temp Pulse Resp BP Pulse Ox 99.3 F 98 H 20 151/85 H 93 L 01/21/18 15:27 01/21/18 15:27 01/21/18 15:27 01/21/18 15:27 01/21/18 15:27 - Medications Medications: Current Medications Acetaminophen (Tylenol 325mg Tab) 650 mg PO Q6 PRN PRN Reason: Pain, Mild (1-3) Last Admin: 01/20/18 21:20 Dose: 650 mg Alprazolam (Xanax) 0.5 mg PO Q6 PRN PRN Reason: Anxiety Last Admin: 01/20/18 22:58 Dose: 0.5 mg Aspirin (Aspirin Chewable) 81 mg PO DAILY [facility] Last Admin: 01/21/18 10:40 Dose: Not Given Atorvastatin Calcium (Lipitor) 40 mg PO HS [facility] Last Admin: 01/20/18 21:22 Dose: 40 mg Benzocaine/Menthol (Cepacol Sore Throat) 1 grazyna PO Q2 PRN PRN Reason: Sore Throat Last Admin: 01/21/18 11:48 Dose: 1 grazyna Carvedilol (Coreg) 3.125 mg PO Q12 [facility] Last Admin: 01/21/18 10:43 Dose: 3.125 mg Clopidogrel Bisulfate (Plavix) 75 mg PO DAILY [facility] Last Admin: 01/20/18 12:28 Dose: 75 mg Dextrose (Dextrose 50% Inj) 0 ml IV STAT PRN; Protocol PRN Reason: Hypoglycemia Protocol Dextrose (Glutose 15) 0 gm PO ONCE PRN; Protocol PRN Reason: Hypoglycemia Protocol Fluoxetine HCl (Prozac) 20 mg PO DAILY [facility] Last Admin: 01/21/18 10:48 Dose: Not Given Furosemide (Lasix) 20 mg PO BID [facility] Last Admin: 01/21/18 10:44 Dose: Not Given Glucagon (Glucagen Diagnostic Kit) 0 mg IM STAT PRN; Protocol PRN Reason: Hypoglycemia Protocol Hydromorphone HCl (Dilaudid) 0.25 mg IVP DAILY PRN PRN Reason: Pain, moderate (4-7) Hydromorphone HCl (Dilaudid) 0.5 mg IVP DAILY PRN PRN Reason: Pain, severe (8-10) Cefepime HCl 1 gm/ Sodium (Chloride) 100 mls @ 100 mls/hr IVPB Q12 [facility] PRN Reason: Protocol Last Admin: 01/21/18 11:52 Dose: 100 mls/hr Vancomycin HCl 1 gm/ Sodium (Chloride) 250 mls @ 166.667 mls/hr IVPB DAILY [facility] PRN Reason: Protocol Last Admin: 01/21/18 10:48 Dose: Not Given Sodium Chloride (Sodium Chloride 0.9%) 1,000 mls @ 75 mls/hr IV .[id number] [facility] Last Admin: 01/21/18 11:46 Dose: 75 mls/hr Heparin Sodium/Dextrose (Heparin 25,000 Units/250ml In D5w) 25,000 units in 250 mls @ 6 mls/hr IV .Q24H [facility] PRN Reason: Protocol Insulin Detemir (Levemir) 10 units SC HS [facility] Last Admin: 01/20/18 21:24 Dose: 10 units Insulin Human Regular (Humulin R) 0 units SC ACHS [facility] PRN Reason: Protocol Last Admin: 01/21/18 07:59 Dose: Not Given Isosorbide Mononitrate (Imdur Er) 30 mg PO DAILY [facility] Last Admin: 01/21/18 10:43 Dose: Not Given Lidocaine (Lidoderm) 2 ea TD DAILY [facility] Last Admin: 01/21/18 10:44 Dose: Not Given Lisinopril (Zestril) 5 mg PO DAILY [facility] Last Admin: 01/21/18 11:47 Dose: Not Given Lorazepam (Ativan) 0.5 mg IVP Q6 PRN PRN Reason: Anxiety Last Admin: 01/19/18 20:50 Dose: 0.5 mg Mupirocin (Bactroban Ointment) 1 applic TOP DAILY [facility] Last Admin: 01/21/18 10:40 Dose: Not Given Ondansetron HCl (Zofran Inj) 4 mg IVP Q4 PRN PRN Reason: Nausea/Vomiting - Labs Labs: 01/21/18 12:01 01/21/18 12:01 PT 11.7 Seconds (9.8-13.1) 01/21/18 06:23 INR 1.1 (0.9-1.2) 01/21/18 06:23 APTT 29.3 Seconds (25.6-37.1) D 01/21/18 06:23 - Constitutional Appears: Well - Head Exam Head Exam: ATRAUMATIC, NORMAL INSPECTION, NORMOCEPHALIC - Eye Exam Eye Exam: EOMI, Normal appearance, PERRL Pupil Exam: NORMAL ACCOMODATION, PERRL - ENT Exam ENT Exam: Mucous Membranes Moist, Normal Exam - Neck Exam Neck Exam: Full ROM, Normal Inspection. absent: Lymphadenopathy - Respiratory Exam Respiratory Exam: Clear to Ausculation Bilateral, NORMAL BREATHING PATTERN - Cardiovascular Exam Cardiovascular Exam: REGULAR RHYTHM, +S1, +S2. absent: Murmur - GI/Abdominal Exam GI & Abdominal Exam: Soft, Normal Bowel Sounds. absent: Tenderness - Extremities Exam Extremities Exam: absent: Joint Swelling, Pedal Edema - Back Exam Back Exam: NORMAL INSPECTION - Neurological Exam Neurological Exam: Alert, Awake, CN II-XII Intact, Normal Gait, Oriented x3 - Psychiatric Exam Psychiatric exam: Normal Affect, Normal Mood - Skin Skin Exam: Dry, Intact, Normal Color, Warm Assessment and Plan (1) Gangrene Status: Acute (2) CAD (coronary artery disease) Status: Acute (3) Cardiomyopathy, dilated Status: Acute (4) Heart failure, left, with LVEF <=30% Status: Acute (5) HTN (hypertension) Status: Chronic (6) History of CVA (cerebrovascular accident) Status: Chronic
[2018-01-21] MEDS: Heparin 25,000units in D5W 25,000 UNITS/250 ML BAG IV SCH (16:38)
[2018-01-21] MEDS: Oxycodone/Acetaminophen 5/325 mg Tab PO PRN ×2 (16:50→23:01)
[2018-01-21] MEDS: Insulin Detemir 100 Units/ml Inj SC SCH (22:30)
--- NOTE | 2018-01-22 05:57 | CP.PCM.PN ---
Subjective - Date & Time of Evaluation Date of Evaluation: 01/22/18 Time of Evaluation: 06:30 - Subjective Subjective: General Surgery Note for Dr. Christian Patient seen and evaluated at bedside. No acute event overnight. Patient is complaining of persistent pain of left leg. Patient tolerating diet. Denies fever/chills, cp, SOB, abd pain, nausea/vomiting, diarrhea. Objective - Vital Signs/Intake and Output Vital Signs (last 24 hours): Temp Pulse Resp BP Pulse Ox 98.3 F 77 16 115/68 95 01/22/18 05:00 01/22/18 05:00 01/22/18 05:00 01/22/18 05:00 01/22/18 05:00 Intake and Output: 01/21/18 01/22/18 18:59 06:59 Intake Total 1810 Balance 1810 - Medications Medications: Current Medications Acetaminophen (Tylenol 325mg Tab) 650 mg PO Q6 PRN PRN Reason: Pain, Mild (1-3) Last Admin: 01/20/18 21:20 Dose: 650 mg Alprazolam (Xanax) 0.5 mg PO Q6 PRN PRN Reason: Anxiety Last Admin: 01/20/18 22:58 Dose: 0.5 mg Aspirin (Aspirin Chewable) 81 mg PO DAILY [facility] Last Admin: 01/21/18 10:40 Dose: Not Given Atorvastatin Calcium (Lipitor) 40 mg PO HS [facility] Last Admin: 01/21/18 21:13 Dose: 40 mg Benzocaine/Menthol (Cepacol Sore Throat) 1 grazyna PO Q2 PRN PRN Reason: Sore Throat Last Admin: 01/21/18 11:48 Dose: 1 grazyna Carvedilol (Coreg) 3.125 mg PO Q12 [facility] Last Admin: 01/21/18 21:13 Dose: 3.125 mg Clopidogrel Bisulfate (Plavix) 75 mg PO DAILY [facility] Last Admin: 01/20/18 12:28 Dose: 75 mg Dextrose (Dextrose 50% Inj) 0 ml IV STAT PRN; Protocol PRN Reason: Hypoglycemia Protocol Dextrose (Glutose 15) 0 gm PO ONCE PRN; Protocol PRN Reason: Hypoglycemia Protocol Fluoxetine HCl (Prozac) 20 mg PO DAILY [facility] Last Admin: 01/21/18 16:58 Dose: 20 mg Furosemide (Lasix) 20 mg PO BID [facility] Last Admin: 01/21/18 16:56 Dose: 20 mg Glucagon (Glucagen Diagnostic Kit) 0 mg IM STAT PRN; Protocol PRN Reason: Hypoglycemia Protocol Cefepime HCl 1 gm/ Sodium (Chloride) 100 mls @ 100 mls/hr IVPB Q12 [facility] PRN Reason: Protocol Last Admin: 01/21/18 21:12 Dose: 100 mls/hr Vancomycin HCl 1 gm/ Sodium (Chloride) 250 mls @ 166.667 mls/hr IVPB DAILY [facility] PRN Reason: Protocol Last Admin: 01/21/18 15:56 Dose: 166.667 mls/hr Heparin Sodium/Dextrose (Heparin 25,000 Units/250ml In D5w) 25,000 units in 250 mls @ 6 mls/hr IV .Q24H [facility] Last Admin: 01/21/18 16:38 Dose: 6 mls/hr Insulin Detemir (Levemir) 10 units SC HS [facility] Last Admin: 01/21/18 22:30 Dose: 10 units Insulin Human Regular (Humulin R) 0 units SC ACHS [facility] PRN Reason: Protocol Last Admin: 01/21/18 22:27 Dose: Not Given Isosorbide Mononitrate (Imdur Er) 30 mg PO DAILY [facility] Last Admin: 01/21/18 16:56 Dose: 30 mg Lidocaine (Lidoderm) 2 ea TD DAILY [facility] Last Admin: 01/21/18 18:49 Dose: Not Given Lisinopril (Zestril) 5 mg PO DAILY [facility] Last Admin: 01/21/18 16:58 Dose: 5 mg Lorazepam (Ativan) 0.5 mg IVP Q6 PRN PRN Reason: Anxiety Last Admin: 01/19/18 20:50 Dose: 0.5 mg Mupirocin (Bactroban Ointment) 1 applic TOP DAILY [facility] Last Admin: 01/21/18 16:27 Dose: 1 applic Ondansetron HCl (Zofran Inj) 4 mg IVP Q4 PRN PRN Reason: Nausea/Vomiting Oxycodone/Acetaminophen (Percocet 5/325 Mg Tab) 1 tab PO Q4 PRN PRN Reason: Pain, moderate (4-7) Stop: 01/24/18 16:16 Last Admin: 01/21/18 23:01 Dose: 1 tab - Labs Labs: 01/21/18 12:01 01/21/18 12:01 PT 11.7 Seconds (9.8-13.1) 01/21/18 06:23 INR 1.1 (0.9-1.2) 01/21/18 06:23 APTT 29.3 Seconds (25.6-37.1) D 01/21/18 06:23 - Constitutional Appears: No Acute Distress - Head Exam Head Exam: ATRAUMATIC, NORMOCEPHALIC - Eye Exam Eye Exam: Normal appearance - ENT Exam ENT Exam: Mucous Membranes Moist - Respiratory Exam Respiratory Exam: NORMAL BREATHING PATTERN - Cardiovascular Exam Cardiovascular Exam: REGULAR RHYTHM - GI/Abdominal Exam GI & Abdominal Exam: Soft. absent: Distended, Tenderness - Extremities Exam Additional comments: left leg pain on palpation left foot 2nd/3rd digit are necrotic Left base of Hallux has 1cm wound - Neurological Exam Neurological Exam: Alert, Awake - Psychiatric Exam Psychiatric exam: Normal Affect, Normal Mood - Skin Skin Exam: Dry, Warm Assessment and Plan - Assessment and Plan (Free Text) Assessment: 67F with left chronic limb Ischemia with necrotic toes and non-healing ulcer IR Cath: shows poor flow due to severe thrombus burden which was unable to be treated via angiojet, unable to use TPA due to recent hemorrhagic stroke PVR: showed no pulse to left posterior tibial artery Plan: - BKA next week - Wound care - Continue anticoagulation - Medical and Cardiac optimization before surgery - Further recommendations as per Dr. Gino Finn PGY1
[2018-01-22] MEDS: Insulin Regular 100 units/ml SC SCH ×4 (06:39→22:30)
[2018-01-22] MEDS: Cefepime 1 GM in Sodium Chloride 0.9% 100 ML IVPB SCH ×2 (09:00→22:29)
--- NOTE | 2018-01-22 09:10 | CP.PCM.PN ---
Subjective - Date & Time of Evaluation Date of Evaluation: 01/22/18 Time of Evaluation: 08:15 - Subjective Subjective: Pt seen and evaluated at bedside this am; no acute events overnight. Continues to have left lower extremity pain as before, medication helps. Objective - Vital Signs/Intake and Output Vital Signs (last 24 hours): Temp Pulse Resp BP Pulse Ox 97.7 F 84 20 132/72 98 01/22/18 08:37 01/22/18 08:37 01/22/18 08:37 01/22/18 08:37 01/22/18 08:37 Intake and Output: 01/22/18 01/22/18 06:59 18:59 Intake Total 872 Balance 872 - Medications Medications: Current Medications Acetaminophen (Tylenol 325mg Tab) 650 mg PO Q6 PRN PRN Reason: Pain, Mild (1-3) Last Admin: 01/20/18 21:20 Dose: 650 mg Alprazolam (Xanax) 0.5 mg PO Q6 PRN PRN Reason: Anxiety Last Admin: 01/20/18 22:58 Dose: 0.5 mg Aspirin (Aspirin Chewable) 81 mg PO DAILY [facility] Last Admin: 01/21/18 10:40 Dose: Not Given Atorvastatin Calcium (Lipitor) 40 mg PO HS [facility] Last Admin: 01/21/18 21:13 Dose: 40 mg Benzocaine/Menthol (Cepacol Sore Throat) 1 grazyna PO Q2 PRN PRN Reason: Sore Throat Last Admin: 01/21/18 11:48 Dose: 1 grazyna Carvedilol (Coreg) 3.125 mg PO Q12 [facility] Last Admin: 01/21/18 21:13 Dose: 3.125 mg Clopidogrel Bisulfate (Plavix) 75 mg PO DAILY [facility] Last Admin: 01/20/18 12:28 Dose: 75 mg Dextrose (Dextrose 50% Inj) 0 ml IV STAT PRN; Protocol PRN Reason: Hypoglycemia Protocol Dextrose (Glutose 15) 0 gm PO ONCE PRN; Protocol PRN Reason: Hypoglycemia Protocol Fluoxetine HCl (Prozac) 20 mg PO DAILY [facility] Last Admin: 01/21/18 16:58 Dose: 20 mg Furosemide (Lasix) 20 mg PO BID [facility] Last Admin: 01/21/18 16:56 Dose: 20 mg Glucagon (Glucagen Diagnostic Kit) 0 mg IM STAT PRN; Protocol PRN Reason: Hypoglycemia Protocol Cefepime HCl 1 gm/ Sodium (Chloride) 100 mls @ 100 mls/hr IVPB Q12 [facility] PRN Reason: Protocol Last Admin: 01/21/18 21:12 Dose: 100 mls/hr Vancomycin HCl 1 gm/ Sodium (Chloride) 250 mls @ 166.667 mls/hr IVPB DAILY [facility] PRN Reason: Protocol Last Admin: 01/21/18 15:56 Dose: 166.667 mls/hr Heparin Sodium/Dextrose (Heparin 25,000 Units/250ml In D5w) 25,000 units in 250 mls @ 6 mls/hr IV .Q24H [facility] Last Admin: 01/21/18 16:38 Dose: 6 mls/hr Insulin Detemir (Levemir) 10 units SC HS [facility] Last Admin: 01/21/18 22:30 Dose: 10 units Insulin Human Regular (Humulin R) 0 units SC ACHS [facility] PRN Reason: Protocol Last Admin: 01/22/18 06:39 Dose: 2 units Isosorbide Mononitrate (Imdur Er) 30 mg PO DAILY [facility] Last Admin: 01/21/18 16:56 Dose: 30 mg Lidocaine (Lidoderm) 2 ea TD DAILY [facility] Last Admin: 01/21/18 18:49 Dose: Not Given Lisinopril (Zestril) 5 mg PO DAILY [facility] Last Admin: 01/21/18 16:58 Dose: 5 mg Lorazepam (Ativan) 0.5 mg IVP Q6 PRN PRN Reason: Anxiety Last Admin: 01/19/18 20:50 Dose: 0.5 mg Mupirocin (Bactroban Ointment) 1 applic TOP DAILY [facility] Last Admin: 01/21/18 16:27 Dose: 1 applic Ondansetron HCl (Zofran Inj) 4 mg IVP Q4 PRN PRN Reason: Nausea/Vomiting Oxycodone/Acetaminophen (Percocet 5/325 Mg Tab) 1 tab PO Q4 PRN PRN Reason: Pain, moderate (4-7) Stop: 01/24/18 16:16 Last Admin: 01/21/18 23:01 Dose: 1 tab - Labs Labs: 01/21/18 12:01 01/21/18 12:01 PT 11.7 Seconds (9.8-13.1) 01/21/18 06:23 INR 1.1 (0.9-1.2) 01/21/18 06:23 APTT 29.1 Seconds (25.6-37.1) 01/22/18 06:10 - Constitutional Appears: No Acute Distress - Eye Exam Eye Exam: Normal appearance - ENT Exam ENT Exam: Mucous Membranes Moist - Respiratory Exam Respiratory Exam: Clear to Ausculation Bilateral, NORMAL BREATHING PATTERN. absent: Wheezes, Respiratory Distress - Cardiovascular Exam Cardiovascular Exam: REGULAR RHYTHM, +S1, +S2 - GI/Abdominal Exam GI & Abdominal Exam: Soft, Normal Bowel Sounds - Extremities Exam Additional comments: necrotic blue-purple discoloration second digit of left foot, first and third digits also discolored, cool to touch, painful to touch Assessment and Plan - Assessment and Plan (Free Text) Assessment: 67 yo F with PMHx of DM2, HTN, HLD, [place], CVA, chronic back pain, admitted with left lower extremity limb ischemia s/p angiography on 01/17 at [facility]; unsuccessful revascularization due to thrombus burden; BKA in upcoming week. Plan: # Limb Ischemia - Vascular studies done 01/15/18- evidence of severe limb ischemia - S/p angiogram by vascular 01/17 - attempt to revascularize unsuccessful due to severe thrombus burden - Vascular surg - Dr. Christian, pt needs BKA; surgery in upcoming week - Antibiotics as per infectious disease consult, Dr. Palacios; pt had PICC line placed due to poor IV access - Heparin drip at 6ml/hr until 6 hrs prior to surgery as per cardiovascular Dr. Mcdaniel # Coronary Artery Disease - Home meds are aspirin and plavix, now held in anticipation of BKA # Insulin Dependent Type 2 Diabetes - Levemir 10U HS - Hypoglycemia protocol and insulin coverage scale - Accuchecks ACHS - Diabetic diet # Anemia - Due to blood loss after angiogram - S/p 3U PRBC - Now resolved, Hgb 12.1 # Systolic CHF Last echo 05/22/17 showed EF of 20%. -Continue carvedilol 3.125 BID -Continue furosemide 20mg BID -30 mg isosorbide mononitrate -Lisinopril 5mg # Depression - Continue with Fluoxetine # HLD - Continue with Lipitor 40mg HS # DVT prophylaxis - on heparin drip
[2018-01-22] MEDS: Lidocaine 5% Patch TD SCH (09:59)
--- NOTE | 2018-01-22 13:01 | CP.PCM.PN ---
Subjective - Date & Time of Evaluation Date of Evaluation: 01/22/18 Time of Evaluation: 07:00 - Subjective Subjective: feels ok no fever Objective - Vital Signs/Intake and Output Vital Signs (last 24 hours): Temp Pulse Resp BP Pulse Ox 97.7 F 84 20 132/72 98 01/22/18 08:37 01/22/18 10:03 01/22/18 08:37 01/22/18 10:03 01/22/18 08:37 Intake and Output: 01/22/18 01/22/18 06:59 18:59 Intake Total 872 Balance 872 - Medications Medications: Current Medications Acetaminophen (Tylenol 325mg Tab) 650 mg PO Q6 PRN PRN Reason: Pain, Mild (1-3) Last Admin: 01/20/18 21:20 Dose: 650 mg Alprazolam (Xanax) 0.5 mg PO Q6 PRN PRN Reason: Anxiety Last Admin: 01/20/18 22:58 Dose: 0.5 mg Aspirin (Aspirin Chewable) 81 mg PO DAILY [facility] Last Admin: 01/21/18 10:40 Dose: Not Given Atorvastatin Calcium (Lipitor) 40 mg PO HS [facility] Last Admin: 01/21/18 21:13 Dose: 40 mg Benzocaine/Menthol (Cepacol Sore Throat) 1 grazyna PO Q2 PRN PRN Reason: Sore Throat Last Admin: 01/21/18 11:48 Dose: 1 grazyna Carvedilol (Coreg) 3.125 mg PO Q12 [facility] Last Admin: 01/22/18 09:58 Dose: 3.125 mg Clopidogrel Bisulfate (Plavix) 75 mg PO DAILY [facility] Last Admin: 01/20/18 12:28 Dose: 75 mg Dextrose (Dextrose 50% Inj) 0 ml IV STAT PRN; Protocol PRN Reason: Hypoglycemia Protocol Dextrose (Glutose 15) 0 gm PO ONCE PRN; Protocol PRN Reason: Hypoglycemia Protocol Fluoxetine HCl (Prozac) 20 mg PO DAILY [facility] Last Admin: 01/22/18 10:02 Dose: 20 mg Furosemide (Lasix) 20 mg PO BID [facility] Last Admin: 01/22/18 09:59 Dose: 20 mg Glucagon (Glucagen Diagnostic Kit) 0 mg IM STAT PRN; Protocol PRN Reason: Hypoglycemia Protocol Cefepime HCl 1 gm/ Sodium (Chloride) 100 mls @ 100 mls/hr IVPB Q12 [facility] PRN Reason: Protocol Last Admin: 01/22/18 09:00 Dose: 100 mls/hr Vancomycin HCl 1 gm/ Sodium (Chloride) 250 mls @ 166.667 mls/hr IVPB DAILY [facility] PRN Reason: Protocol Last Admin: 01/22/18 09:00 Dose: 166.667 mls/hr Heparin Sodium/Dextrose (Heparin 25,000 Units/250ml In D5w) 25,000 units in 250 mls @ 6 mls/hr IV .Q24H [facility] Last Admin: 01/21/18 16:38 Dose: 6 mls/hr Insulin Detemir (Levemir) 10 units SC HS [facility] Last Admin: 01/21/18 22:30 Dose: 10 units Insulin Human Regular (Humulin R) 0 units SC ACHS [facility] PRN Reason: Protocol Last Admin: 01/22/18 06:39 Dose: 2 units Isosorbide Mononitrate (Imdur Er) 30 mg PO DAILY [facility] Last Admin: 01/22/18 09:59 Dose: 30 mg Lidocaine (Lidoderm) 2 ea TD DAILY [facility] Last Admin: 01/22/18 09:59 Dose: 2 ea Lisinopril (Zestril) 5 mg PO DAILY [facility] Last Admin: 01/22/18 10:03 Dose: 5 mg Lorazepam (Ativan) 0.5 mg IVP Q6 PRN PRN Reason: Anxiety Last Admin: 01/19/18 20:50 Dose: 0.5 mg Mupirocin (Bactroban Ointment) 1 applic TOP DAILY [facility] Last Admin: 01/22/18 09:59 Dose: 1 applic Ondansetron HCl (Zofran Inj) 4 mg IVP Q4 PRN PRN Reason: Nausea/Vomiting Oxycodone/Acetaminophen (Percocet 5/325 Mg Tab) 1 tab PO Q4 PRN PRN Reason: Pain, moderate (4-7) Stop: 01/24/18 16:16 Last Admin: 01/21/18 23:01 Dose: 1 tab - Labs Labs: 01/21/18 12:01 01/21/18 12:01 PT 11.7 Seconds (9.8-13.1) 01/21/18 06:23 INR 1.1 (0.9-1.2) 01/21/18 06:23 APTT 29.1 Seconds (25.6-37.1) 01/22/18 06:10 - Constitutional Appears: Non-toxic, Chronically Ill - Head Exam Head Exam: NORMOCEPHALIC - Eye Exam Eye Exam: PERRL. absent: Scleral icterus - ENT Exam ENT Exam: Mucous Membranes Dry - Neck Exam Neck Exam: absent: Lymphadenopathy, Thyromegaly - Respiratory Exam Respiratory Exam: Decreased Breath Sounds - Cardiovascular Exam Cardiovascular Exam: REGULAR RHYTHM - GI/Abdominal Exam GI & Abdominal Exam: Distended, Soft - Rectal Exam Rectal Exam: Deferred - Exam Exam: NORMAL INSPECTION - Extremities Exam Extremities Exam: absent: Pedal Edema Additional comments: left foot with gangrenous changes - Back Exam Back Exam: absent: CVA tenderness (L), CVA tenderness (R) - Neurological Exam Neurological Exam: Alert, Awake, Oriented x3 Neuro motor strength exam: Left Upper Extremity: 5, Right Upper Extremity: 5, Left Lower Extremity: 5, Right Lower Extremity: 5 - Psychiatric Exam Psychiatric exam: Normal Mood - Skin Skin Exam: Dry Assessment and Plan (1) Gangrene Status: Acute (2) Acute kidney injury Status: Acute (3) CAD (coronary artery disease) Status: Acute (4) Cardiomyopathy, dilated Status: Acute (5) Diabetic foot ulcer Status: Acute (6) Hyperglycemia due to type 2 diabetes mellitus Status: Acute (7) Osteomyelitis Status: Acute - Assessment and Plan (Free Text) Assessment: for BKA wednesday
--- NOTE | 2018-01-22 17:57 | CP.PCM.PN ---
Subjective - Date & Time of Evaluation Date of Evaluation: 01/22/18 Time of Evaluation: 17:54 - Subjective Subjective: Podiatry progress note for Dr. Reynoso 67y/o female with PMHx of DM2, HTN, HLD, [place], CVA, chronic back pain seen at bedside for necrotic, gangrenous changes to L foot first, second and third digits as well as ulcerations. Patient is AAO x 3 and NAD at time of examination , resting comfortably in bed. States that pain is well controlled. Denies any acute overnight events or any further pedal complaints at this time. Denies any recent N/V/F/C/CP/SOB/D/posterior calf pain when squeezed. Patient is aware that she will have a BKA of left leg with Dr. Christian on Wednesday Objective - Vital Signs/Intake and Output Vital Signs (last 24 hours): Temp Pulse Resp BP Pulse Ox 98.4 F 80 20 126/73 98 01/22/18 16:05 01/22/18 16:05 01/22/18 16:05 01/22/18 16:05 01/22/18 16:05 Intake and Output: 01/22/18 01/22/18 06:59 18:59 Intake Total 872 Balance 872 - Medications Medications: Current Medications Acetaminophen (Tylenol 325mg Tab) 650 mg PO Q6 PRN PRN Reason: Pain, Mild (1-3) Last Admin: 01/20/18 21:20 Dose: 650 mg Alprazolam (Xanax) 0.5 mg PO Q6 PRN PRN Reason: Anxiety Last Admin: 01/20/18 22:58 Dose: 0.5 mg Aspirin (Aspirin Chewable) 81 mg PO DAILY [facility] Last Admin: 01/21/18 10:40 Dose: Not Given Atorvastatin Calcium (Lipitor) 40 mg PO HS [facility] Last Admin: 01/21/18 21:13 Dose: 40 mg Benzocaine/Menthol (Cepacol Sore Throat) 1 grazyna PO Q2 PRN PRN Reason: Sore Throat Last Admin: 01/21/18 11:48 Dose: 1 grazyna Carvedilol (Coreg) 3.125 mg PO Q12 [facility] Last Admin: 01/22/18 09:58 Dose: 3.125 mg Clopidogrel Bisulfate (Plavix) 75 mg PO DAILY [facility] Last Admin: 01/20/18 12:28 Dose: 75 mg Dextrose (Dextrose 50% Inj) 0 ml IV STAT PRN; Protocol PRN Reason: Hypoglycemia Protocol Dextrose (Glutose 15) 0 gm PO ONCE PRN; Protocol PRN Reason: Hypoglycemia Protocol Fluoxetine HCl (Prozac) 20 mg PO DAILY [facility] Last Admin: 01/22/18 10:02 Dose: 20 mg Furosemide (Lasix) 20 mg PO BID [facility] Last Admin: 01/22/18 09:59 Dose: 20 mg Glucagon (Glucagen Diagnostic Kit) 0 mg IM STAT PRN; Protocol PRN Reason: Hypoglycemia Protocol Cefepime HCl 1 gm/ Sodium (Chloride) 100 mls @ 100 mls/hr IVPB Q12 [facility] PRN Reason: Protocol Last Admin: 01/22/18 09:00 Dose: 100 mls/hr Vancomycin HCl 1 gm/ Sodium (Chloride) 250 mls @ 166.667 mls/hr IVPB DAILY [facility] PRN Reason: Protocol Last Admin: 01/22/18 09:00 Dose: 166.667 mls/hr Heparin Sodium/Dextrose (Heparin 25,000 Units/250ml In D5w) 25,000 units in 250 mls @ 6 mls/hr IV .Q24H [facility] Last Admin: 01/21/18 16:38 Dose: 6 mls/hr Insulin Detemir (Levemir) 10 units SC HS [facility] Last Admin: 01/21/18 22:30 Dose: 10 units Insulin Human Regular (Humulin R) 0 units SC ACHS [facility] PRN Reason: Protocol Last Admin: 01/22/18 12:00 Dose: 4 units Isosorbide Mononitrate (Imdur Er) 30 mg PO DAILY [facility] Last Admin: 01/22/18 09:59 Dose: 30 mg Lidocaine (Lidoderm) 2 ea TD DAILY [facility] Last Admin: 01/22/18 09:59 Dose: 2 ea Lisinopril (Zestril) 5 mg PO DAILY [facility] Last Admin: 01/22/18 10:03 Dose: 5 mg Lorazepam (Ativan) 0.5 mg IVP Q6 PRN PRN Reason: Anxiety Last Admin: 01/19/18 20:50 Dose: 0.5 mg Mupirocin (Bactroban Ointment) 1 applic TOP DAILY [facility] Last Admin: 03/31/18 09:59 Dose: 1 applic Ondansetron HCl (Zofran Inj) 4 mg IVP Q4 PRN PRN Reason: Nausea/Vomiting Oxycodone/Acetaminophen (Percocet 5/325 Mg Tab) 1 tab PO Q4 PRN PRN Reason: Pain, moderate (4-7) Stop: 01/24/18 16:16 Last Admin: 01/21/18 23:01 Dose: 1 tab - Labs Labs: 01/21/18 12:01 01/21/18 12:01 PT 11.7 Seconds (9.8-13.1) 01/21/18 06:23 INR 1.1 (0.9-1.2) 01/21/18 06:23 APTT 29.1 Seconds (25.6-37.1) 01/22/18 06:10 - Constitutional Appears: Well, Non-toxic, No Acute Distress - Extremities Exam Additional comments: LLE focused exam: Vasc: DP pulse nonpalpable. PT pulses nonpalpable, CFT <3 seconds to digits. TG cool to cool. Edema noted to medial aspect of left forefoot Neuro: Gross sensation intact, protective sensation diminished Derm: Ulceration measuring 2.5 cm x 2.5 cm x . 4 cm with 100% fibrous wound base at the medial aspect of the 1st MPJ, severe hallux valgus deformity noted and crossing over 2nd digit. Ulceration has no drainage, no purulence, no odor, periwound slightly erythema, no increase warmth, no fluctance, streaking noted vs erthema noted to dorsum of foot. Superficial ulcerations noted to the 2nd digit secondary to pressure from 1st hallux. 2nd digit with worsen gangrenous changes, now with mummification and dry, blue discoloration noted to the 3rd digit and 4th digit and plantar aspect of sub met 1. Slight macerations to interspaces noted with ulcerations noted to 2nd, 3rd and 4th interspace. Ortho: pain to palpation of medial 1st met head, sub met 1-3, entire digits 1-3 of left foot, patient has generalize pain to the LE extremity - Neurological Exam Neurological Exam: Alert, Awake, Oriented x3 - Psychiatric Exam Psychiatric exam: Normal Affect, Normal Mood Assessment and Plan - Assessment and Plan (Free Text) Assessment: 67y/o female with PMHx of DM2, HTN, HLD, [place], CVA, chronic back pain seen at bedside for necrotic, gangrenous changes to L foot first, second and third digits as well as ulcerations Plan: Patient seen and evaluated at bedside Plan discussed with attending Dr. Reynoso Charts, labs, vitals reviewed Vitals stable Continue medical management per Family Medicine Continue IV abx per ID Plavix and Aspirin held Patient's foot dressed with Betadine, DSD Patient for OR with Dr. Christian on Wednesday - left leg Podiatry will continue to follow until that time
[2018-01-22] MEDS: Benzocaine/Menthol (Cepacol) Lozenge PO PRN (18:18)
[2018-01-22] MEDS: Heparin 25,000units in D5W 25,000 UNITS/250 ML BAG IV SCH (18:26)
[2018-01-22] MEDS ORDERED: Heparin 25,000units in D5W 25,000 UNITS/250 ML BAG IV SCH (19:45)
[2018-01-22] MEDS: Oxycodone/Acetaminophen 5/325 mg Tab PO PRN (22:29)
[2018-01-22] MEDS: Insulin Detemir 100 Units/ml Inj SC SCH (22:37)
[2018-01-23] MEDS: Insulin Regular 100 units/ml SC SCH ×4 (06:40→22:00)
[2018-01-23 07:16] LABS: BASO # 0.1 K/uL (0.0-0.2); BASO % 0.6 % (0.0-2.0); EOS # 0.2 K/uL (0.0-0.7); EOS % 1.5 % (0.0-4.0); HEMOGLOBIN 11.8 g/dL (12.0-16.0); LYMPH # 1.8 K/uL (1.0-4.3); LYMPH % 13.5 % (20.0-40.0); MEAN CELL VOLUME 87.7 fl (81.0-99.0); MEAN CORPUSCULAR HEMOGLOBIN 29.7 pg (27.0-31.0); MEAN CORPUSCULAR HGB CONC 33.8 g/dL (33.0-37.0); MEAN PLATELET VOLUME 10.6 fl (7.2-11.7); MONO # 1.1 K/uL (0.0-0.8); MONO % 8.6 % (0.0-10.0); NEUT # 10.1 K/uL (1.8-7.0); NEUT % 75.8 % (50.0-75.0); NRBC % 0.1 % (0.0-0.0); RBC 3.98 Mil/uL (3.80-5.20); RED CELL DISTRIBUTION WIDTH 13.8 % (11.5-14.5); WHITE BLOOD COUNT 13.3 K/uL (4.8-10.8)
--- NOTE | 2018-01-23 08:01 | CP.PCM.PN ---
Subjective - Date & Time of Evaluation Date of Evaluation: 01/23/18 Time of Evaluation: 07:58 - Subjective Subjective: SURGERY PROGRESS NOTE FOR DR. COLON 67F seen and examined at bedside. No acute events overnight. Patient continues of complain of left leg pain unchanged. Objective - Vital Signs/Intake and Output Vital Signs (last 24 hours): Temp Pulse Resp BP Pulse Ox 97.3 F L 77 18 150/76 98 01/23/18 05:00 01/23/18 05:00 01/23/18 05:00 01/23/18 05:00 01/23/18 05:00 - Medications Medications: Current Medications Acetaminophen (Tylenol 325mg Tab) 650 mg PO Q6 PRN PRN Reason: Pain, Mild (1-3) Last Admin: 01/20/18 21:20 Dose: 650 mg Alprazolam (Xanax) 0.5 mg PO Q6 PRN PRN Reason: Anxiety Last Admin: 01/20/18 22:58 Dose: 0.5 mg Aspirin (Aspirin Chewable) 81 mg PO DAILY [facility] Last Admin: 01/21/18 10:40 Dose: Not Given Atorvastatin Calcium (Lipitor) 40 mg PO HS [facility] Last Admin: 01/22/18 22:29 Dose: 40 mg Benzocaine/Menthol (Cepacol Sore Throat) 1 grazyna PO Q2 PRN PRN Reason: Sore Throat Last Admin: 01/22/18 18:18 Dose: 1 grazyna Carvedilol (Coreg) 3.125 mg PO Q12 [facility] Last Admin: 01/22/18 22:30 Dose: 3.125 mg Clopidogrel Bisulfate (Plavix) 75 mg PO DAILY [facility] Last Admin: 01/20/18 12:28 Dose: 75 mg Dextrose (Dextrose 50% Inj) 0 ml IV STAT PRN; Protocol PRN Reason: Hypoglycemia Protocol Dextrose (Glutose 15) 0 gm PO ONCE PRN; Protocol PRN Reason: Hypoglycemia Protocol Fluoxetine HCl (Prozac) 20 mg PO DAILY [facility] Last Admin: 01/22/18 10:02 Dose: 20 mg Furosemide (Lasix) 20 mg PO BID [facility] Last Admin: 01/22/18 18:17 Dose: 20 mg Glucagon (Glucagen Diagnostic Kit) 0 mg IM STAT PRN; Protocol PRN Reason: Hypoglycemia Protocol Cefepime HCl 1 gm/ Sodium (Chloride) 100 mls @ 100 mls/hr IVPB Q12 DASHAWN PRN Reason: Protocol Last Admin: 01/22/18 22:29 Dose: 100 mls/hr Vancomycin HCl 1 gm/ Sodium (Chloride) 250 mls @ 166.667 mls/hr IVPB DAILY DASHAWN PRN Reason: Protocol Last Admin: 01/22/18 09:00 Dose: 166.667 mls/hr Heparin Sodium/Dextrose (Heparin 25,000 Units/250ml In D5w) 25,000 units in 250 mls @ 6 mls/hr IV .Q24H DASHAWN PRN Reason: Protocol Last Admin: 01/23/18 04:23 Dose: Not Given Insulin Detemir (Levemir) 10 units SC HS [facility] Last Admin: 01/22/18 22:37 Dose: 10 units Insulin Human Regular (Humulin R) 0 units SC ACHS DASHAWN PRN Reason: Protocol Last Admin: 01/23/18 06:40 Dose: 2 units Isosorbide Mononitrate (Imdur Er) 30 mg PO DAILY [facility] Last Admin: 01/22/18 09:59 Dose: 30 mg Lidocaine (Lidoderm) 2 ea TD DAILY [facility] Last Admin: 01/22/18 09:59 Dose: 2 ea Lisinopril (Zestril) 5 mg PO DAILY [facility] Last Admin: 01/22/18 10:03 Dose: 5 mg Lorazepam (Ativan) 0.5 mg IVP Q6 PRN PRN Reason: Anxiety Last Admin: 01/19/18 20:50 Dose: 0.5 mg Mupirocin (Bactroban Ointment) 1 applic TOP DAILY [facility] Last Admin: 01/22/18 09:59 Dose: 1 applic Ondansetron HCl (Zofran Inj) 4 mg IVP Q4 PRN PRN Reason: Nausea/Vomiting Oxycodone/Acetaminophen (Percocet 5/325 Mg Tab) 1 tab PO Q4 PRN PRN Reason: Pain, moderate (4-7) Stop: 01/24/18 16:16 Last Admin: 01/22/18 22:29 Dose: 1 tab - Labs Labs: 01/23/18 05:55 01/21/18 12:01 PT 11.7 Seconds (9.8-13.1) 01/21/18 06:23 INR 1.1 (0.9-1.2) 01/21/18 06:23 APTT 36.8 Seconds (25.6-37.1) D 01/23/18 05:55 - Constitutional Appears: Well, Non-toxic, No Acute Distress - Respiratory Exam Respiratory Exam: Clear to Ausculation Bilateral, NORMAL BREATHING PATTERN - Cardiovascular Exam Cardiovascular Exam: REGULAR RHYTHM, +S1, +S2 - GI/Abdominal Exam GI & Abdominal Exam: Soft. absent: Distended, Firm, Guarding, Rigid, Tenderness , Rebound - Extremities Exam Additional comments: left 2nd toe necrosis. stage 4 ulcer at base of left hallux Severe pain on palpation of left calf - Neurological Exam Neurological Exam: Alert, Awake Assessment and Plan - Assessment and Plan (Free Text) Assessment: 67F chronic left lower limb ischemia Plan: plan for OR for BKA Further recs discuss with Dr. Gino Hill, PGY2
--- NOTE | 2018-01-23 08:54 | CP.PCM.PN ---
Subjective - Date & Time of Evaluation Date of Evaluation: 01/23/18 Time of Evaluation: 08:54 Objective - Vital Signs/Intake and Output Vital Signs (last 24 hours): Temp Pulse Resp BP Pulse Ox 98.5 F 74 20 154/76 H 96 01/23/18 08:33 01/23/18 08:33 01/23/18 08:33 01/23/18 08:33 01/23/18 08:33 - Medications Medications: Current Medications Acetaminophen (Tylenol 325mg Tab) 650 mg PO Q6 PRN PRN Reason: Pain, Mild (1-3) Last Admin: 01/20/18 21:20 Dose: 650 mg Alprazolam (Xanax) 0.5 mg PO Q6 PRN PRN Reason: Anxiety Last Admin: 01/20/18 22:58 Dose: 0.5 mg Aspirin (Aspirin Chewable) 81 mg PO DAILY [facility] Last Admin: 01/21/18 10:40 Dose: Not Given Atorvastatin Calcium (Lipitor) 40 mg PO HS [facility] Last Admin: 01/22/18 22:29 Dose: 40 mg Benzocaine/Menthol (Cepacol Sore Throat) 1 grazyna PO Q2 PRN PRN Reason: Sore Throat Last Admin: 01/22/18 18:18 Dose: 1 grazyna Carvedilol (Coreg) 3.125 mg PO Q12 [facility] Last Admin: 01/22/18 22:30 Dose: 3.125 mg Clopidogrel Bisulfate (Plavix) 75 mg PO DAILY [facility] Last Admin: 01/20/18 12:28 Dose: 75 mg Dextrose (Dextrose 50% Inj) 0 ml IV STAT PRN; Protocol PRN Reason: Hypoglycemia Protocol Dextrose (Glutose 15) 0 gm PO ONCE PRN; Protocol PRN Reason: Hypoglycemia Protocol Fluoxetine HCl (Prozac) 20 mg PO DAILY [facility] Last Admin: 01/22/18 10:02 Dose: 20 mg Furosemide (Lasix) 20 mg PO BID [facility] Last Admin: 01/22/18 18:17 Dose: 20 mg Glucagon (Glucagen Diagnostic Kit) 0 mg IM STAT PRN; Protocol PRN Reason: Hypoglycemia Protocol Cefepime HCl 1 gm/ Sodium (Chloride) 100 mls @ 100 mls/hr IVPB Q12 DASHAWN PRN Reason: Protocol Last Admin: 01/22/18 22:29 Dose: 100 mls/hr Vancomycin HCl 1 gm/ Sodium (Chloride) 250 mls @ 166.667 mls/hr IVPB DAILY [facility] PRN Reason: Protocol Last Admin: 01/22/18 09:00 Dose: 166.667 mls/hr Heparin Sodium/Dextrose (Heparin 25,000 Units/250ml In D5w) 25,000 units in 250 mls @ 6 mls/hr IV .Q24H [facility] PRN Reason: Protocol Last Admin: 01/23/18 04:23 Dose: Not Given Insulin Detemir (Levemir) 10 units SC HS [facility] Last Admin: 01/22/18 22:37 Dose: 10 units Insulin Human Regular (Humulin R) 0 units SC ACHS [facility] PRN Reason: Protocol Last Admin: 01/23/18 06:40 Dose: 2 units Isosorbide Mononitrate (Imdur Er) 30 mg PO DAILY [facility] Last Admin: 01/22/18 09:59 Dose: 30 mg Lidocaine (Lidoderm) 2 ea TD DAILY [facility] Last Admin: 01/22/18 09:59 Dose: 2 ea Lisinopril (Zestril) 5 mg PO DAILY [facility] Last Admin: 01/22/18 10:03 Dose: 5 mg Lorazepam (Ativan) 0.5 mg IVP Q6 PRN PRN Reason: Anxiety Last Admin: 01/19/18 20:50 Dose: 0.5 mg Mupirocin (Bactroban Ointment) 1 applic TOP DAILY [facility] Last Admin: 01/22/18 09:59 Dose: 1 applic Ondansetron HCl (Zofran Inj) 4 mg IVP Q4 PRN PRN Reason: Nausea/Vomiting Oxycodone/Acetaminophen (Percocet 5/325 Mg Tab) 1 tab PO Q4 PRN PRN Reason: Pain, moderate (4-7) Stop: 01/24/18 16:16 Last Admin: 01/22/18 22:29 Dose: 1 tab - Labs Labs: 01/23/18 05:55 01/21/18 12:01 PT 11.7 Seconds (9.8-13.1) 01/21/18 06:23 INR 1.1 (0.9-1.2) 01/21/18 06:23 APTT 36.8 Seconds (25.6-37.1) D 01/23/18 05:55
[2018-01-23] MEDS: Cefepime 1 GM in Sodium Chloride 0.9% 100 ML IVPB SCH ×2 (09:54→20:52)
[2018-01-23] MEDS: Lidocaine 5% Patch TD SCH (09:57)
--- NOTE | 2018-01-23 10:14 | CP.PCM.PN ---
Subjective - Date & Time of Evaluation Date of Evaluation: 01/23/18 Time of Evaluation: 10:12 - Subjective Subjective: no overnight event. Denies fever/chills, n/v, chest pain, SOB, abd pain, /GI symptoms. Eating and drinking well. Some dysphagia while eating. Pain controlled for left foot pain. Objective - Vital Signs/Intake and Output Vital Signs (last 24 hours): Temp Pulse Resp BP Pulse Ox 98.5 F 74 20 154/76 H 96 01/23/18 08:33 01/23/18 09:56 01/23/18 08:33 01/23/18 09:56 01/23/18 08:33 - Medications Medications: Current Medications Acetaminophen (Tylenol 325mg Tab) 650 mg PO Q6 PRN PRN Reason: Pain, Mild (1-3) Last Admin: 01/20/18 21:20 Dose: 650 mg Alprazolam (Xanax) 0.5 mg PO Q6 PRN PRN Reason: Anxiety Last Admin: 01/20/18 22:58 Dose: 0.5 mg Aspirin (Aspirin Chewable) 81 mg PO DAILY [facility] Last Admin: 01/21/18 10:40 Dose: Not Given Atorvastatin Calcium (Lipitor) 40 mg PO HS [facility] Last Admin: 01/22/18 22:29 Dose: 40 mg Benzocaine/Menthol (Cepacol Sore Throat) 1 grazyna PO Q2 PRN PRN Reason: Sore Throat Last Admin: 01/22/18 18:18 Dose: 1 grazyna Carvedilol (Coreg) 3.125 mg PO Q12 [facility] Last Admin: 01/23/18 09:56 Dose: 3.125 mg Clopidogrel Bisulfate (Plavix) 75 mg PO DAILY [facility] Last Admin: 01/20/18 12:28 Dose: 75 mg Dextrose (Dextrose 50% Inj) 0 ml IV STAT PRN; Protocol PRN Reason: Hypoglycemia Protocol Dextrose (Glutose 15) 0 gm PO ONCE PRN; Protocol PRN Reason: Hypoglycemia Protocol Fluoxetine HCl (Prozac) 20 mg PO DAILY [facility] Last Admin: 01/23/18 09:54 Dose: 20 mg Furosemide (Lasix) 20 mg PO BID [facility] Last Admin: 01/23/18 09:53 Dose: 20 mg Glucagon (Glucagen Diagnostic Kit) 0 mg IM STAT PRN; Protocol PRN Reason: Hypoglycemia Protocol Cefepime HCl 1 gm/ Sodium (Chloride) 100 mls @ 100 mls/hr IVPB Q12 DASHANW PRN Reason: Protocol Last Admin: 01/23/18 09:54 Dose: 100 mls/hr Vancomycin HCl 1 gm/ Sodium (Chloride) 250 mls @ 166.667 mls/hr IVPB DAILY DASHAWN PRN Reason: Protocol Last Admin: 01/23/18 09:50 Dose: 166.667 mls/hr Heparin Sodium/Dextrose (Heparin 25,000 Units/250ml In D5w) 25,000 units in 250 mls @ 6 mls/hr IV .Q24H DASHAWN PRN Reason: Protocol Last Admin: 01/23/18 04:23 Dose: Not Given Insulin Detemir (Levemir) 10 units SC HS [facility] Last Admin: 01/22/18 22:37 Dose: 10 units Insulin Human Regular (Humulin R) 0 units SC ACHS DASHAWN PRN Reason: Protocol Last Admin: 01/23/18 06:40 Dose: 2 units Isosorbide Mononitrate (Imdur Er) 30 mg PO DAILY [facility] Last Admin: 01/23/18 09:53 Dose: 30 mg Lidocaine (Lidoderm) 2 ea TD DAILY [facility] Last Admin: 01/23/18 09:57 Dose: 2 ea Lisinopril (Zestril) 5 mg PO DAILY [facility] Last Admin: 01/23/18 09:50 Dose: 5 mg Lorazepam (Ativan) 0.5 mg IVP Q6 PRN PRN Reason: Anxiety Last Admin: 01/19/18 20:50 Dose: 0.5 mg Mupirocin (Bactroban Ointment) 1 applic TOP DAILY [facility] Last Admin: 01/23/18 09:50 Dose: 1 applic Ondansetron HCl (Zofran Inj) 4 mg IVP Q4 PRN PRN Reason: Nausea/Vomiting Oxycodone/Acetaminophen (Percocet 5/325 Mg Tab) 1 tab PO Q4 PRN PRN Reason: Pain, moderate (4-7) Stop: 01/24/18 16:16 Last Admin: 01/22/18 22:29 Dose: 1 tab - Labs Labs: 01/23/18 05:55 01/21/18 12:01 PT 11.7 Seconds (9.8-13.1) 01/21/18 06:23 INR 1.1 (0.9-1.2) 01/21/18 06:23 APTT 36.8 Seconds (25.6-37.1) D 01/23/18 05:55 - Constitutional Appears: Non-toxic, No Acute Distress - Head Exam Head Exam: ATRAUMATIC, NORMAL INSPECTION - Eye Exam Eye Exam: Normal appearance - ENT Exam ENT Exam: Mucous Membranes Moist Additional comments: OP no erythema - Neck Exam Neck Exam: Full ROM, Normal Inspection - Respiratory Exam Respiratory Exam: Clear to Ausculation Bilateral - Cardiovascular Exam Cardiovascular Exam: REGULAR RHYTHM - GI/Abdominal Exam GI & Abdominal Exam: Soft - Extremities Exam Additional comments: left foot splinted/wrapped. moving all digits, sensation grossly intact. popliteal pulses 1+. negative Homanns. no erythema. - Back Exam Back Exam: NORMAL INSPECTION - Neurological Exam Neurological Exam: Alert, Oriented x3 - Skin Skin Exam: Dry, Warm Assessment and Plan - Assessment and Plan (Free Text) Assessment: 67 yo F with PMHx of DM2, HTN, HLD, MO, CVA, chronic back pain, admitted with left lower extremity limb ischemia s/p angiography on 01/17 at [facility]; Plan: SC heparin bolus with increase in titration starting today, possible BKA MON 745AM per surgery, NPO after MN for now, hold heparin 6hr prior to surgery # Limb Ischemia/thrombus - Vascular studies 01/15/18- severe limb ischemia - angiogram 01/17 - revascularize unsuccessful 2/2 severe thrombus - Vascular surg Dr. Christian, on board, appreciate input. likely BKA - ID Dr. Palacios on board, appreciate input. PICC line: Vanc/Cefepine - Vascular Dr. Mcdaniel on board, appreciate input. Heparin drip increased from 6 to 8ml/hr after heparin 4400units SC bolus x1 per pharmacy. Stop drip 6 hrs prior to surgery. # Coronary Artery Disease - hold aspirin and plavix x5 days # Insulin Dependent Type 2 Diabetes - Levemir 10U HS, can receive overnight prior to surgery - Hypoglycemia protocol and insulin coverage scale - Accuchecks ACHS - Diabetic diet # Systolic CHF Last echo 05/22/17 showed EF of 20%. -Continue carvedilol 3.125 BID -Continue furosemide 20mg BID -30 mg isosorbide mononitrate -Lisinopril 5mg # Depression - Continue with Fluoxetine # HLD - Continue with Lipitor 40mg HS # DVT prophylaxis - heparin drip Diet -NPO after MN except Meds
[2018-01-23] MEDS: Oxycodone/Acetaminophen 5/325 mg Tab PO PRN ×2 (10:49→20:51)
[2018-01-23] MEDS ORDERED: Heparin 25,000units in D5W 25,000 UNITS/250 ML BAG IV SCH ×3 (11:01→20:45)
--- NOTE | 2018-01-23 11:11 | CP.PCM.PN ---
Subjective - Date & Time of Evaluation Date of Evaluation: 01/23/18 Time of Evaluation: 11:09 - Subjective Subjective: Podiatry progress note for Dr. Reynoso 67y/o female with PMHx of DM2, HTN, HLD, LA, CVA, chronic back pain seen at bedside for necrotic, gangrenous changes to L foot first, second and third digits as well as ulcerations. Patient is AAO x 3 and NAD at time of examination , resting comfortably in bed. States that pain is well controlled. Denies any acute overnight events or any further pedal complaints at this time. Denies any recent N/V/F/C/CP/SOB/D/posterior calf pain when squeezed. Patient is aware that she will have a BKA of left leg with Dr. Christian tomorrow Objective - Vital Signs/Intake and Output Vital Signs (last 24 hours): Temp Pulse Resp BP Pulse Ox 98.5 F 74 20 154/76 H 96 01/23/18 08:33 01/23/18 09:56 01/23/18 08:33 01/23/18 09:56 01/23/18 08:33 - Medications Medications: Current Medications Acetaminophen (Tylenol 325mg Tab) 650 mg PO Q6 PRN PRN Reason: Pain, Mild (1-3) Last Admin: 01/20/18 21:20 Dose: 650 mg Alprazolam (Xanax) 0.5 mg PO Q6 PRN PRN Reason: Anxiety Last Admin: 01/20/18 22:58 Dose: 0.5 mg Aspirin (Aspirin Chewable) 81 mg PO DAILY [facility] Last Admin: 01/21/18 10:40 Dose: Not Given Atorvastatin Calcium (Lipitor) 40 mg PO HS [facility] Last Admin: 01/22/18 22:29 Dose: 40 mg Benzocaine/Menthol (Cepacol Sore Throat) 1 grazyna PO Q2 PRN PRN Reason: Sore Throat Last Admin: 01/22/18 18:18 Dose: 1 grazyna Carvedilol (Coreg) 3.125 mg PO Q12 [facility] Last Admin: 01/23/18 09:56 Dose: 3.125 mg Clopidogrel Bisulfate (Plavix) 75 mg PO DAILY [facility] Last Admin: 01/20/18 12:28 Dose: 75 mg Dextrose (Dextrose 50% Inj) 0 ml IV STAT PRN; Protocol PRN Reason: Hypoglycemia Protocol Dextrose (Glutose 15) 0 gm PO ONCE PRN; Protocol PRN Reason: Hypoglycemia Protocol Fluoxetine HCl (Prozac) 20 mg PO DAILY [facility] Last Admin: 01/23/18 09:54 Dose: 20 mg Furosemide (Lasix) 20 mg PO BID [facility] Last Admin: 01/23/18 09:53 Dose: 20 mg Glucagon (Glucagen Diagnostic Kit) 0 mg IM STAT PRN; Protocol PRN Reason: Hypoglycemia Protocol Heparin Sodium (Porcine) (Heparin) 4,400 units SC ONCE ONE PRN Reason: Protocol Stop: 01/23/18 10:59 Cefepime HCl 1 gm/ Sodium (Chloride) 100 mls @ 100 mls/hr IVPB Q12 DASHAWN PRN Reason: Protocol Last Admin: 01/23/18 09:54 Dose: 100 mls/hr Vancomycin HCl 1 gm/ Sodium (Chloride) 250 mls @ 166.667 mls/hr IVPB DAILY DASHAWN PRN Reason: Protocol Last Admin: 01/23/18 09:50 Dose: 166.667 mls/hr Heparin Sodium/Dextrose (Heparin 25,000 Units/250ml In D5w) 25,000 units in 250 mls @ 8 mls/hr IV .Q24H DASHAWN PRN Reason: Protocol Insulin Detemir (Levemir) 10 units SC HS [facility] Last Admin: 01/22/18 22:37 Dose: 10 units Insulin Human Regular (Humulin R) 0 units SC ACHS DASHAWN PRN Reason: Protocol Last Admin: 01/23/18 06:40 Dose: 2 units Isosorbide Mononitrate (Imdur Er) 30 mg PO DAILY [facility] Last Admin: 01/23/18 09:53 Dose: 30 mg Lidocaine (Lidoderm) 2 ea TD DAILY [facility] Last Admin: 01/23/18 09:57 Dose: 2 ea Lisinopril (Zestril) 5 mg PO DAILY [facility] Last Admin: 01/23/18 09:50 Dose: 5 mg Lorazepam (Ativan) 0.5 mg IVP Q6 PRN PRN Reason: Anxiety Last Admin: 01/19/18 20:50 Dose: 0.5 mg Mupirocin (Bactroban Ointment) 1 applic TOP DAILY [facility] Last Admin: 01/23/18 09:50 Dose: 1 applic Ondansetron HCl (Zofran Inj) 4 mg IVP Q4 PRN PRN Reason: Nausea/Vomiting Oxycodone/Acetaminophen (Percocet 5/325 Mg Tab) 1 tab PO Q4 PRN PRN Reason: Pain, moderate (4-7) Stop: 01/24/18 16:16 Last Admin: 01/23/18 10:49 Dose: 1 tab - Labs Labs: 01/23/18 05:55 01/21/18 12:01 PT 11.7 Seconds (9.8-13.1) 01/21/18 06:23 INR 1.1 (0.9-1.2) 01/21/18 06:23 APTT 36.8 Seconds (25.6-37.1) D 01/23/18 05:55 - Constitutional Appears: Well, Non-toxic, No Acute Distress - Extremities Exam Additional comments: LLE focused exam: Vasc: DP pulse nonpalpable. PT pulses nonpalpable, CFT <3 seconds to digits. TG cool to cool. Edema noted to medial aspect of left forefoot Neuro: Gross sensation intact, protective sensation diminished Derm: Ulceration measuring 2.5 cm x 2.5 cm x . 4 cm with 100% fibrous wound base at the medial aspect of the 1st MPJ, severe hallux valgus deformity noted and crossing over 2nd digit. Ulceration has no drainage, no purulence, no odor, periwound slightly erythema, no increase warmth, no fluctance, streaking noted vs erthema noted to dorsum of foot. Superficial ulcerations noted to the 2nd digit secondary to pressure from 1st hallux. 2nd digit with worsen gangrenous changes, now with mummification and dry, blue discoloration noted to the 3rd digit and 4th digit and plantar aspect of sub met 1. Slight macerations to interspaces noted with ulcerations noted to 2nd, 3rd and 4th interspace. Ortho: pain to palpation of medial 1st met head, sub met 1-3, entire digits 1-3 of left foot, patient has generalize pain to the LE extremity - Neurological Exam Neurological Exam: Alert, Awake, Oriented x3 - Psychiatric Exam Psychiatric exam: Normal Affect, Normal Mood Assessment and Plan - Assessment and Plan (Free Text) Assessment: 67y/o female with PMHx of DM2, HTN, HLD, LA, CVA, chronic back pain seen at bedside for necrotic, gangrenous changes to L foot first, second and third digits as well as ulcerations Plan: Patient seen and evaluated at bedside Plan discussed with attending Dr. Reynoso Charts, labs, vitals reviewed WBC 13.3 Vitals stable Continue medical management per Family Medicine Continue IV abx per ID Plavix and Aspirin held Patient's foot dressed with Betadine, DSD Patient for OR with Dr. Christian tomorrow - A left leg Podiatry will continue to follow until that time
[2018-01-23] MEDS: Insulin Detemir 100 Units/ml Inj SC SCH (22:20)
[2018-01-24 05:56] LABS: INR 1.1 (0.9-1.2); PARTIAL THROMBOPLASTIN TIME 46.2 Seconds (25.6-37.1); PROTHROMBIN TIME 11.9 Seconds (9.8-13.1)
[2018-01-24 06:05] LABS: HEMOGLOBIN 11.6 g/dL (12.0-16.0); MEAN CELL VOLUME 88.7 fl (81.0-99.0); MEAN CORPUSCULAR HEMOGLOBIN 29.8 pg (27.0-31.0); MEAN CORPUSCULAR HGB CONC 33.6 g/dL (33.0-37.0); RBC 3.91 Mil/uL (3.80-5.20); RED CELL DISTRIBUTION WIDTH 13.8 % (11.5-14.5); WHITE BLOOD COUNT 11.6 K/uL (4.8-10.8)
[2018-01-24] MEDS ORDERED: Succinylcholine 200 mg/10 ml Inj IV ONE (07:42)
[2018-01-24] MEDS ORDERED: Midazolam 2 MG/2 ML VIAL ONE ×2 (07:42→08:23)
[2018-01-24] MEDS ORDERED: Lidocaine 2% Inj (20ml) ONE (07:45)
[2018-01-24] MEDS ORDERED: Lactated Ringer's 1,000 ML IV ONE (07:55)
[2018-01-24] MEDS ORDERED: Sodium Chloride 0.9% 500 ML IV ONE (07:55)
[2018-01-24] MEDS ORDERED: Etomidate 20 mg/10ml Inj IV ONE (08:23)
[2018-01-24] MEDS ORDERED: Ketamine 50 mg/ml Inj (10 ml) ONE (08:23)
--- NOTE | 2018-01-24 10:05 | PCM.ANESB3 ---
Femoral Nerve Block - Femoral Nerve Block Date of Procedure: 01/24/18 Anesthesiologist: Brody Pre-Procedure Diagnosis: Left leg gangrene Post-Procedure Diagnosis: Same Procedure Performed: Femoral Nerve Block Left - Procedure Femoral Nerve Block: The procedure was explained to the patient that it is for the post-operative pain management. Consent was obtained after a thorough discussion with the patient regarding the benefits and possible complications of local anesthetic block of the femoral nerve at the inguinal crease area. The patient was brought to the operating room and standard monitors were applied. Time-out was held with the circulating nurse to confirm the correct surgery and the appropriate block. After applying oxygen by nasal cannula and administering IV Sedation, patient was placed in supine position with fully extended lower extremities and the ___left groin exposed. The femoral artery was then carefully palpated. The ultrasound transducer was then applied to this area in the transverse plane and the femoral nerve was visualized lateral to the femoral artery and underneath the fascia iliaca. After thorough identification, the inguinal crease area was prepped with Betadine solution three times and 1 % Lidocaine was injected subcutaneously for topical anesthesia. At this point, a #22 gauge Stimuplex 2-inch needle was inserted immediately lateral to the femoral artery pulse at the inguinal crease and advanced perpendicularly. The needle was inserted to the ultrasound transducer in-plane towards the femoral nerve in a [id number] direction. Needle advancement was performed carefully under direct ultrasound visualization. Nerve stimulator was used and twitch of the quadriceps muscle was obtained at current of __0.4___ MA. After negative aspiration, __10___cc of __2___% Lidocaine _was injected and this was followed with ___10___ cc of __.5 % ____ Bupivacaine . Under ultrasound guidance the local anesthetics were observed spreading below fascia iliaca and around the femoral nerve. The needle was removed intact and sterile dressing was applied. The patient had stable vital signs, was conscious and in no apparent distress. The patient tolerated the femoral nerve block well with stable vital signs and was prepared for subsequent surgery.
[2018-01-24] MEDS ORDERED: Morphine 4 MG/ML VIAL IVP PRN ×2 (10:06→16:41)
--- NOTE | 2018-01-24 10:06 | PCM.ANESB2 ---
Popliteal Nerve Block - Popliteal Nerve Block Date of Procedure: 01/24/18 Anesthesiologist: Brody Pre-Procedure Diagnosis: Left leg gangrene Post-Procedure Diagnosis: Same Procedure Performed: Popliteal Nerve Block Left - Procedure Popliteal Nerve Block: This procedure was explained to the patient that it is for post-operative pain management. Consent was obtained after a thorough discussion with the patient regarding the benefits and possible complications of local anesthetic block of the sciatic nerve at the popliteal level. The patient was brought to the operating room and standard monitors are applied. Time-out was held with the circulating nurse to confirm the correct surgery and the appropriate block. After applying oxygen by nasal cannula and administering IV Sedation, patient's operative leg was gently raised and supported and the groove in between the biceps femoris and vastus lateralis muscles was carefully palpated. The skin approximately 8cm above the popliteal crease was then marked. The ultrasound transducer was then applied to the posterior thigh approximately 8cm above the popliteal crease in the transverse plane and the sciatic nerve before its division was visualized lateral to the popliteal artery and in between the bicep femoris and semimembranosus/semitendinosus muscles. After identification, the lateral portion of the thigh was prepped with Betadine solution three times and Lidocaine 1% was injected subcutaneously for topical anesthesia. At this point, a # 21 gauge Stimuplex insulated 4 inch needle was inserted into pre-marked area and advanced in a perpendicular direction. The needle was inserted above the ultrasound transducer in-plane towards the sciatic nerve in a [id number] direction. Needle advancement was performed carefully under direct ultrasound visualization. Nerve stimulator was used and dorsiflexion of the ___left__ foot was elicited at a current of ___0.4__ MA. After repeated negative aspiration, __10___cc of __2___ % ___lidocaine was injected and this was flowed with ____10__ cc of ___.5___% ___bupivacaine __. Under ultrasound guidance the local anesthetics were observed surrounding sciatic nerve . The needle was removed intact and sterile dressing was applied. The patient tolerated the popliteal nerve block well with stable vital signs and was subsequently prepared for the surgery.
--- NOTE | 2018-01-24 10:12 | PCM.SURG1 ---
Surgeon's Initial Post Op Note - Surgeon's Notes Surgeon: Dr. Christian Bridge Operator Slip: Bennie PGY2, Aakash PGY1, Jaymie PGY1 Type of Anesthesia: Block Regional Anesthesia Administered By: Dr. Skinner Pre-Operative Diagnosis: Left foot gangrene, PVD Operative Findings: see operative report Post-Operative Diagnosis: left foot gangrene, PVD Operation Performed: L BKA Specimen/Specimens Removed: left lower leg Estimated Blood Loss: EBL {In ML}: 50 Blood Products Given: N/A Drains Used: No Drains Post-Op Condition: Good Date of Surgery/Procedure: 01/24/18 Time of Surgery/Procedure: 08:15
[2018-01-24] MEDS: Cefepime 1 GM in Sodium Chloride 0.9% 100 ML IVPB SCH ×2 (11:00→22:16)
--- NOTE | 2018-01-24 12:16 | CP.PCM.PN ---
Subjective - Date & Time of Evaluation Date of Evaluation: 01/24/18 Time of Evaluation: 12:16 - Subjective Subjective: Patient seen and examined in PACU s/p EULALIAA today in OR under block regional anesthesia, patient is awake but mildly sleepy, cooperative with exam, she reports feeling fine, denies any pain at this time, no nausea or vomiting, no chest pain. Afebrile. Patient tolerated well the procedure. Objective - Vital Signs/Intake and Output Vital Signs (last 24 hours): Temp Pulse Resp BP Pulse Ox 98.1 F 73 18 143/84 99 01/24/18 12:00 01/24/18 12:00 01/24/18 12:00 01/24/18 12:00 01/24/18 12:00 Intake and Output: 01/24/18 01/24/18 06:59 18:59 Intake Total 625 Balance 625 - Medications Medications: Current Medications Acetaminophen (Tylenol 325mg Tab) 650 mg PO Q6 PRN PRN Reason: Pain, Mild (1-3) Last Admin: 01/20/18 21:20 Dose: 650 mg Alprazolam (Xanax) 0.5 mg PO Q6 PRN PRN Reason: Anxiety Last Admin: 01/20/18 22:58 Dose: 0.5 mg Aspirin (Aspirin Chewable) 81 mg PO DAILY [facility] Last Admin: 01/21/18 10:40 Dose: Not Given Atorvastatin Calcium (Lipitor) 40 mg PO HS [facility] Last Admin: 01/23/18 22:19 Dose: 40 mg Benzocaine/Menthol (Cepacol Sore Throat) 1 grazyna PO Q2 PRN PRN Reason: Sore Throat Last Admin: 01/22/18 18:18 Dose: 1 grazyna Carvedilol (Coreg) 3.125 mg PO Q12 [facility] Last Admin: 01/23/18 22:20 Dose: 3.125 mg Clopidogrel Bisulfate (Plavix) 75 mg PO DAILY [facility] Last Admin: 01/20/18 12:28 Dose: 75 mg Dextrose (Dextrose 50% Inj) 0 ml IV STAT PRN; Protocol PRN Reason: Hypoglycemia Protocol Dextrose (Glutose 15) 0 gm PO ONCE PRN; Protocol PRN Reason: Hypoglycemia Protocol Fluoxetine HCl (Prozac) 20 mg PO DAILY [facility] Last Admin: 01/23/18 09:54 Dose: 20 mg Furosemide (Lasix) 20 mg PO BID [facility] Last Admin: 01/23/18 17:47 Dose: 20 mg Glucagon (Glucagen Diagnostic Kit) 0 mg IM STAT PRN; Protocol PRN Reason: Hypoglycemia Protocol Vancomycin HCl 1 gm/ Sodium (Chloride) 250 mls @ 166.667 mls/hr IVPB DAILY [facility] PRN Reason: Protocol Cefepime HCl 1 gm/ Sodium (Chloride) 100 mls @ 100 mls/hr IVPB Q12 [facility] PRN Reason: Protocol Last Admin: 01/24/18 11:00 Dose: 100 mls Heparin Sodium/Dextrose (Heparin 25,000 Units/250ml In D5w) 25,000 units in 250 mls @ 8 mls/hr IV .Q24H [facility] PRN Reason: Protocol Last Admin: 01/23/18 21:30 Dose: Not Given Insulin Detemir (Levemir) 10 units SC HS [facility] Last Admin: 01/23/18 22:20 Dose: 10 units Insulin Human Regular (Humulin R) 0 units SC ACHS [facility] PRN Reason: Protocol Last Admin: 01/23/18 22:00 Dose: Not Given Isosorbide Mononitrate (Imdur Er) 30 mg PO DAILY [facility] Last Admin: 01/23/18 09:53 Dose: 30 mg Lidocaine (Lidoderm) 2 ea TD DAILY [facility] Last Admin: 01/23/18 09:57 Dose: 2 ea Lisinopril (Zestril) 5 mg PO DAILY [facility] Last Admin: 01/23/18 09:50 Dose: 5 mg Lorazepam (Ativan) 0.5 mg IVP Q6 PRN PRN Reason: Anxiety Last Admin: 01/19/18 20:50 Dose: 0.5 mg Mupirocin (Bactroban Ointment) 1 applic TOP DAILY [facility] Last Admin: 01/23/18 09:50 Dose: 1 applic Ondansetron HCl (Zofran Inj) 4 mg IVP Q4 PRN PRN Reason: Nausea/Vomiting Oxycodone/Acetaminophen (Percocet 5/325 Mg Tab) 1 tab PO Q4 PRN PRN Reason: Pain, moderate (4-7) Stop: 01/24/18 16:16 Last Admin: 01/23/18 20:51 Dose: 1 tab - Labs Labs: 01/24/18 04:20 01/24/18 04:20 PT 11.9 Seconds (9.8-13.1) 01/24/18 04:20 INR 1.1 (0.9-1.2) 01/24/18 04:20 APTT 46.2 Seconds (25.6-37.1) H D 01/24/18 04:20 - Constitutional Appears: Well, No Acute Distress - Head Exam Head Exam: NORMAL INSPECTION - Eye Exam Eye Exam: EOMI, PERRL - Respiratory Exam Respiratory Exam: Clear to Ausculation Bilateral, NORMAL BREATHING PATTERN - Cardiovascular Exam Cardiovascular Exam: REGULAR RHYTHM, +S1, +S2. absent: Murmur - GI/Abdominal Exam GI & Abdominal Exam: Soft, Normal Bowel Sounds. absent: Tenderness - Extremities Exam Additional comments: LLE BKA, wound dressing in place intact, clean, DANIELLE drain well functioning. - Neurological Exam Neurological Exam: Awake, Oriented x3 - Psychiatric Exam Psychiatric exam: Normal Mood Assessment and Plan - Assessment and Plan (Free Text) Assessment: 67 yo F with PMHx of DM2, HTN, HLD, [place], CVA, chronic back pain, admitted with left lower extremity limb ischemia s/p angiography on 01/17 at [facility]. S /P BKA today per surgery. Hold Heparin today, start Lovenox in [address] Mcdaniel. POD 0. 1- Limb Ischemia/thrombus - Vascular studies 01/15/18- severe limb ischemia - Angiogram 01/17 - revascularize unsuccessful 2/2 severe thrombus - Vascular surg Dr. Christian, on board. - ID Dr. Palacios on board, appreciate input. - PICC line: Vanc/Cefepine. - Vascular Dr. Mcdaniel on board, appreciate input. Hold Heparin drip today. Start Lovenox in 48 hrs. 2- Coronary Artery Disease - Hold aspirin and plavix x5 days. 3- Insulin Dependent Type 2 Diabetes - c/w Levemir 10U HS. - Hypoglycemia protocol and insulin coverage scale. - Accuchecks ACHS. - Diabetic diet. 4- Systolic CHF Last echo 05/22/17 showed EF of 20%. -Continue carvedilol 3.125 BID -Continue furosemide 20mg BID -30 mg isosorbide mononitrate -Lisinopril 5mg 5- Depression - Continue with Fluoxetine 6- HLD - Continue with Lipitor 40mg HS 7- DVT prophylaxis - d/c heparin drip - Levonox 40mcg in 2 days.
[2018-01-24] MEDS: Insulin Regular 100 units/ml SC SCH ×3 (15:43→22:19)
[2018-01-24] MEDS: Lidocaine 5% Patch TD SCH (15:43)
[2018-01-24] MEDS: Morphine 4 MG/ML VIAL IVP PRN ×2 (17:04→22:28)
[2018-01-24] MEDS ORDERED: Morphine 4 MG/ML VIAL IVP ONE (18:27)
[2018-01-24] MEDS ORDERED: Oxycodone/Acetaminophen 5/325 mg Tab PO ONE (20:03)
[2018-01-24] MEDS: Insulin Detemir 100 Units/ml Inj SC SCH (22:18)
[2018-01-25 06:10] LABS: HEMOGLOBIN 14.7 g/dL (12.0-16.0); MEAN CELL VOLUME 88.3 fl (81.0-99.0); MEAN CORPUSCULAR HEMOGLOBIN 29.6 pg (27.0-31.0); MEAN CORPUSCULAR HGB CONC 33.6 g/dL (33.0-37.0); RBC 4.96 Mil/uL (3.80-5.20); WHITE BLOOD COUNT 17.5 K/uL (4.8-10.8)
[2018-01-25 06:36] LABS: CALCIUM 9.7 mg/dL (8.4-10.2)
--- NOTE | 2018-01-25 07:52 | CP.PCM.PN ---
Subjective - Date & Time of Evaluation Date of Evaluation: 01/25/18 Time of Evaluation: 07:00 - Subjective Subjective: General Surgery Note for Dr. Stone Patient seen and examined at bedside. Patient drain fell out overnight. She is s /p L BKA POD#1. Patient is complaining of severe pain. She was started on Morphine DRAMA CRITIC. Objective - Vital Signs/Intake and Output Vital Signs (last 24 hours): Temp Pulse Resp BP Pulse Ox 97.5 F L 92 H 18 179/92 H 100 01/25/18 05:09 01/25/18 05:09 01/25/18 05:09 01/25/18 05:09 01/25/18 05:09 - Medications Medications: Current Medications Acetaminophen (Tylenol 325mg Tab) 650 mg PO Q6 PRN PRN Reason: Pain, Mild (1-3) Last Admin: 01/20/18 21:20 Dose: 650 mg Alprazolam (Xanax) 0.5 mg PO Q6 PRN PRN Reason: Anxiety Last Admin: 01/20/18 22:58 Dose: 0.5 mg Aspirin (Aspirin Chewable) 81 mg PO DAILY [facility] Last Admin: 01/21/18 10:40 Dose: Not Given Atorvastatin Calcium (Lipitor) 40 mg PO HS [facility] Last Admin: 01/24/18 22:11 Dose: 40 mg Benzocaine/Menthol (Cepacol Sore Throat) 1 grazyna PO Q2 PRN PRN Reason: Sore Throat Last Admin: 01/22/18 18:18 Dose: 1 grazyna Carvedilol (Coreg) 3.125 mg PO Q12 [facility] Last Admin: 01/24/18 22:10 Dose: 3.125 mg Clopidogrel Bisulfate (Plavix) 75 mg PO DAILY [facility] Last Admin: 01/20/18 12:28 Dose: 75 mg Dextrose (Dextrose 50% Inj) 0 ml IV STAT PRN; Protocol PRN Reason: Hypoglycemia Protocol Dextrose (Glutose 15) 0 gm PO ONCE PRN; Protocol PRN Reason: Hypoglycemia Protocol Docusate Sodium (Colace) 200 mg PO DAILY [facility] Last Admin: 01/24/18 17:14 Dose: 200 mg Enoxaparin Sodium (Lovenox) 40 mg SC DAILY [facility] PRN Reason: Protocol Fluoxetine HCl (Prozac) 20 mg PO DAILY [facility] Last Admin: 01/24/18 15:44 Dose: Not Given Furosemide (Lasix) 20 mg PO BID [facility] Last Admin: 01/24/18 17:15 Dose: 20 mg Glucagon (Glucagen Diagnostic Kit) 0 mg IM STAT PRN; Protocol PRN Reason: Hypoglycemia Protocol Vancomycin HCl 1 gm/ Sodium (Chloride) 250 mls @ 166.667 mls/hr IVPB DAILY [facility] PRN Reason: Protocol Last Admin: 01/24/18 15:44 Dose: Not Given Cefepime HCl 1 gm/ Sodium (Chloride) 100 mls @ 100 mls/hr IVPB Q12 [facility] PRN Reason: Protocol Last Admin: 01/24/18 22:16 Dose: 100 mls/hr Insulin Detemir (Levemir) 10 units SC HS [facility] Last Admin: 01/24/18 22:18 Dose: 10 units Insulin Human Regular (Humulin R) 0 units SC ACHS [facility] PRN Reason: Protocol Last Admin: 01/24/18 22:19 Dose: Not Given Isosorbide Mononitrate (Imdur Er) 30 mg PO DAILY [facility] Last Admin: 01/24/18 15:43 Dose: Not Given Lidocaine (Lidoderm) 2 ea TD DAILY [facility] Last Admin: 01/24/18 15:43 Dose: Not Given Lisinopril (Zestril) 5 mg PO DAILY [facility] Last Admin: 01/24/18 15:44 Dose: Not Given Lorazepam (Ativan) 0.5 mg IVP Q6 PRN PRN Reason: Anxiety Last Admin: 01/19/18 20:50 Dose: 0.5 mg Morphine Sulfate (Morphine) 4 mg IVP Q4 PRN PRN Reason: Pain, severe (8-10) Last Admin: 01/24/18 22:28 Dose: 4 mg Morphine Sulfate (Morphine) 2 mg IVP Q4 PRN PRN Reason: Pain, moderate (4-7) Morphine Sulfate (Morphine Recreation Program Coordinator 1 Mg/Ml) 0 mg IV PRN PRN; Protocol PRN Reason: Pain, moderate (4-7) Last Admin: 01/24/18 00:55 Dose: 30 mg Mupirocin (Bactroban Ointment) 1 applic TOP DAILY [facility] Last Admin: 01/24/18 15:42 Dose: Not Given Ondansetron HCl (Zofran Inj) 4 mg IVP Q4 PRN PRN Reason: Nausea/Vomiting - Labs Labs: 01/25/18 04:20 01/25/18 04:20 PT 11.9 Seconds (9.8-13.1) 01/24/18 04:20 INR 1.1 (0.9-1.2) 01/24/18 04:20 APTT 46.2 Seconds (25.6-37.1) H D 01/24/18 04:20 - Constitutional Appears: In Acute Distress (complaining of pain) - Head Exam Head Exam: ATRAUMATIC, NORMOCEPHALIC - Eye Exam Eye Exam: Normal appearance - Respiratory Exam Respiratory Exam: NORMAL BREATHING PATTERN - Cardiovascular Exam Cardiovascular Exam: REGULAR RHYTHM - Extremities Exam Additional comments: s/p L BKA - dressing clean dry and intact Knee immobilizer in place - Neurological Exam Neurological Exam: Alert, Awake - Psychiatric Exam Psychiatric exam: Normal Affect, Normal Mood - Skin Skin Exam: Dry, Intact, Warm Assessment and Plan - Assessment and Plan (Free Text) Plan: 67F s/p L BKA POD#1 -HHD/CCD -Pain control -Monitor for bleeding -Dressing not to be changed -Keep knee immobilizer on all time so leg is always straight -Discussed with Dr. Gino Finn PGY1
--- NOTE | 2018-01-25 08:24 | CP.PCM.PN ---
Subjective - Date & Time of Evaluation Date of Evaluation: 01/25/18 Time of Evaluation: 08:24 - Subjective Subjective: S/P BKA, POD 1. Patient seen this morning at bedside c/o severe pain in LLE, nurse states that patient was in pain during the night requiring up to 30 mg of morphine in total , anesthesia was called and they put a INFORMATION MANAGEMENT MANAGER, also patient had low RR of 5-6/min likely secondary to increased morphine use. Patient denies fever, chills, nausea , vomiting, chest or abdominal pain, no palpitations, no sob. States low appetite. Voiding freely, normal BM. Sat 100% NC at 2L. Objective - Vital Signs/Intake and Output Vital Signs (last 24 hours): Temp Pulse Resp BP Pulse Ox 98.1 F 92 H 18 172/92 H 98 01/25/18 08:00 01/25/18 08:00 01/25/18 08:00 01/25/18 08:00 01/25/18 08:00 - Medications Medications: Current Medications Acetaminophen (Tylenol 325mg Tab) 650 mg PO Q6 PRN PRN Reason: Pain, Mild (1-3) Last Admin: 01/20/18 21:20 Dose: 650 mg Alprazolam (Xanax) 0.5 mg PO Q6 PRN PRN Reason: Anxiety Last Admin: 01/20/18 22:58 Dose: 0.5 mg Aspirin (Aspirin Chewable) 81 mg PO DAILY [facility] Last Admin: 01/21/18 10:40 Dose: Not Given Atorvastatin Calcium (Lipitor) 40 mg PO HS [facility] Last Admin: 01/24/18 22:11 Dose: 40 mg Benzocaine/Menthol (Cepacol Sore Throat) 1 grazyna PO Q2 PRN PRN Reason: Sore Throat Last Admin: 01/22/18 18:18 Dose: 1 grazyna Carvedilol (Coreg) 3.125 mg PO Q12 [facility] Last Admin: 01/24/18 22:10 Dose: 3.125 mg Clopidogrel Bisulfate (Plavix) 75 mg PO DAILY [facility] Last Admin: 01/20/18 12:28 Dose: 75 mg Dextrose (Dextrose 50% Inj) 0 ml IV STAT PRN; Protocol PRN Reason: Hypoglycemia Protocol Dextrose (Glutose 15) 0 gm PO ONCE PRN; Protocol PRN Reason: Hypoglycemia Protocol Docusate Sodium (Colace) 200 mg PO DAILY [facility] Last Admin: 01/24/18 17:14 Dose: 200 mg Enoxaparin Sodium (Lovenox) 40 mg SC DAILY [facility] PRN Reason: Protocol Fluoxetine HCl (Prozac) 20 mg PO DAILY [facility] Last Admin: 01/24/18 15:44 Dose: Not Given Furosemide (Lasix) 20 mg PO BID [facility] Last Admin: 01/24/18 17:15 Dose: 20 mg Glucagon (Glucagen Diagnostic Kit) 0 mg IM STAT PRN; Protocol PRN Reason: Hypoglycemia Protocol Vancomycin HCl 1 gm/ Sodium (Chloride) 250 mls @ 166.667 mls/hr IVPB DAILY [facility] PRN Reason: Protocol Last Admin: 01/24/18 15:44 Dose: Not Given Cefepime HCl 1 gm/ Sodium (Chloride) 100 mls @ 100 mls/hr IVPB Q12 [facility] PRN Reason: Protocol Last Admin: 01/24/18 22:16 Dose: 100 mls/hr Insulin Detemir (Levemir) 10 units SC HS [facility] Last Admin: 01/24/18 22:18 Dose: 10 units Insulin Human Regular (Humulin R) 0 units SC ACHS [facility] PRN Reason: Protocol Last Admin: 01/24/18 22:19 Dose: Not Given Isosorbide Mononitrate (Imdur Er) 30 mg PO DAILY [facility] Last Admin: 01/24/18 15:43 Dose: Not Given Lidocaine (Lidoderm) 2 ea TD DAILY [facility] Last Admin: 01/24/18 15:43 Dose: Not Given Lisinopril (Zestril) 5 mg PO DAILY [facility] Last Admin: 01/24/18 15:44 Dose: Not Given Lorazepam (Ativan) 0.5 mg IVP Q6 PRN PRN Reason: Anxiety Last Admin: 01/19/18 20:50 Dose: 0.5 mg Morphine Sulfate (Morphine) 4 mg IVP Q4 PRN PRN Reason: Pain, severe (8-10) Last Admin: 01/24/18 22:28 Dose: 4 mg Morphine Sulfate (Morphine) 2 mg IVP Q4 PRN PRN Reason: Pain, moderate (4-7) Morphine Sulfate (Morphine Rolls Baker 1 Mg/Ml) 0 mg IV PRN PRN; Protocol PRN Reason: Pain, moderate (4-7) Last Admin: 01/24/18 00:55 Dose: 30 mg Mupirocin (Bactroban Ointment) 1 applic TOP DAILY [facility] Last Admin: 01/24/18 15:42 Dose: Not Given Ondansetron HCl (Zofran Inj) 4 mg IVP Q4 PRN PRN Reason: Nausea/Vomiting - Labs Labs: 01/25/18 04:20 01/25/18 04:20 PT 11.9 Seconds (9.8-13.1) 01/24/18 04:20 INR 1.1 (0.9-1.2) 01/24/18 04:20 APTT 46.2 Seconds (25.6-37.1) H D 01/24/18 04:20 - Constitutional Appears: In Acute Distress (due to pain) - Head Exam Head Exam: NORMAL INSPECTION - Eye Exam Eye Exam: EOMI, PERRL - Respiratory Exam Respiratory Exam: Clear to Ausculation Bilateral. absent: Rales, Rhonchi, Wheezes - Cardiovascular Exam Cardiovascular Exam: REGULAR RHYTHM, +S1, +S2. absent: Tachycardia - GI/Abdominal Exam GI & Abdominal Exam: Soft, Normal Bowel Sounds. absent: Distended, Tenderness - Extremities Exam Extremities Exam: absent: Calf Tenderness Additional comments: LLE dressing clean, intact. DANIELLE drain drop out on its own. - Neurological Exam Neurological Exam: Awake, Oriented x3 Assessment and Plan - Assessment and Plan (Free Text) Assessment: 67 yo F with PMHx of DM2, HTN, HLD, [place], CVA, chronic back pain, admitted with left lower extremity limb ischemia s/p angiography on 01/17 at [facility]. S /P BKA on 01/24 per surgery. Hold Heparin and start Lovenox in [address] Mcdaniel. POD 1. 1- Limb Ischemia/thrombus - Vascular studies 01/15/18- severe limb ischemia - Angiogram 01/17 - revascularize unsuccessful 11/26 severe thrombus - s/p BKA on 01/24 - Vascular surg Dr. Christian, on board. - ID Dr. Palacios on board, appreciate input. - c/w Vanc 01/24 /Cefepine 01/23 - Vascular Dr. Mcdaniel on board, appreciate input. Hold Heparin drip. Start Lovenox tomorrow - Started INFORMATION MANAGEMENT MANAGER morphine last night due to intractable phantom pain in LLE. - f/u CBC, CMP in am 2- Coronary Artery Disease - Hold aspirin and plavix x 5 days (restart tomorrow) 3- Insulin Dependent Type 2 Diabetes - c/w Levemir 10U HS. - Hypoglycemia protocol and insulin coverage scale. - Accuchecks ACHS. - Diabetic diet. 4- Systolic CHF Last echo 05/22/17 showed EF of 20%. -Continue carvedilol 3.125 BID -Continue furosemide 20mg BID -30 mg isosorbide mononitrate -Lisinopril 5mg 5- Depression - Continue with Fluoxetine 6- HLD - Continue with Lipitor 40mg HS 7- DVT prophylaxis - d/c heparin drip - Levonox 40mcg start tomorrow 01/26
--- NOTE | 2018-01-25 08:25 | CP.PCM.PN ---
Subjective - Date & Time of Evaluation Date of Evaluation: 01/25/18 Time of Evaluation: 08:05 - Subjective Subjective: Called to assess patient for post-op pain. Patient is s/p Left BKA under femoral + popliteal nerve blocks. Blocks wore off late afternoon/early evening. Morphine PROPERTY SPECIALIST was started after Morphine boluses were unsuccessful in treating the pain. Patient appears in no distress at bedside, but does complain of pain and likely phantom sensation. Per nursing staff, patient used about 30mg of Morphine overnight, and at times the respiratory rate can decrease to 5-6/minute. Review of nursing notes overnight didn't show any documentation of excess sedation or respiratory depression. Objective - Vital Signs/Intake and Output Vital Signs (last 24 hours): Temp Pulse Resp BP Pulse Ox 98.1 F 92 H 18 172/92 H 98 01/25/18 08:00 01/25/18 08:00 01/25/18 08:00 01/25/18 08:00 01/25/18 08:00 - Medications Medications: Current Medications Acetaminophen (Tylenol 325mg Tab) 650 mg PO Q6 PRN PRN Reason: Pain, Mild (1-3) Last Admin: 01/20/18 21:20 Dose: 650 mg Alprazolam (Xanax) 0.5 mg PO Q6 PRN PRN Reason: Anxiety Last Admin: 01/20/18 22:58 Dose: 0.5 mg Aspirin (Aspirin Chewable) 81 mg PO DAILY [facility] Last Admin: 01/21/18 10:40 Dose: Not Given Atorvastatin Calcium (Lipitor) 40 mg PO HS [facility] Last Admin: 01/24/18 22:11 Dose: 40 mg Benzocaine/Menthol (Cepacol Sore Throat) 1 grazyna PO Q2 PRN PRN Reason: Sore Throat Last Admin: 01/22/18 18:18 Dose: 1 grazyna Carvedilol (Coreg) 3.125 mg PO Q12 [facility] Last Admin: 01/24/18 22:10 Dose: 3.125 mg Clopidogrel Bisulfate (Plavix) 75 mg PO DAILY [facility] Last Admin: 01/20/18 12:28 Dose: 75 mg Dextrose (Dextrose 50% Inj) 0 ml IV STAT PRN; Protocol PRN Reason: Hypoglycemia Protocol Dextrose (Glutose 15) 0 gm PO ONCE PRN; Protocol PRN Reason: Hypoglycemia Protocol Docusate Sodium (Colace) 200 mg PO DAILY [facility] Last Admin: 01/24/18 17:14 Dose: 200 mg Enoxaparin Sodium (Lovenox) 40 mg SC DAILY [facility] PRN Reason: Protocol Fluoxetine HCl (Prozac) 20 mg PO DAILY [facility] Last Admin: 01/24/18 15:44 Dose: Not Given Furosemide (Lasix) 20 mg PO BID [facility] Last Admin: 01/24/18 17:15 Dose: 20 mg Glucagon (Glucagen Diagnostic Kit) 0 mg IM STAT PRN; Protocol PRN Reason: Hypoglycemia Protocol Vancomycin HCl 1 gm/ Sodium (Chloride) 250 mls @ 166.667 mls/hr IVPB DAILY [facility] PRN Reason: Protocol Last Admin: 01/24/18 15:44 Dose: Not Given Cefepime HCl 1 gm/ Sodium (Chloride) 100 mls @ 100 mls/hr IVPB Q12 [facility] PRN Reason: Protocol Last Admin: 01/24/18 22:16 Dose: 100 mls/hr Insulin Detemir (Levemir) 10 units SC HS [facility] Last Admin: 01/24/18 22:18 Dose: 10 units Insulin Human Regular (Humulin R) 0 units SC ACHS [facility] PRN Reason: Protocol Last Admin: 01/24/18 22:19 Dose: Not Given Isosorbide Mononitrate (Imdur Er) 30 mg PO DAILY [facility] Last Admin: 01/24/18 15:43 Dose: Not Given Lidocaine (Lidoderm) 2 ea TD DAILY [facility] Last Admin: 01/24/18 15:43 Dose: Not Given Lisinopril (Zestril) 5 mg PO DAILY [facility] Last Admin: 01/24/18 15:44 Dose: Not Given Lorazepam (Ativan) 0.5 mg IVP Q6 PRN PRN Reason: Anxiety Last Admin: 01/19/18 20:50 Dose: 0.5 mg Morphine Sulfate (Morphine) 4 mg IVP Q4 PRN PRN Reason: Pain, severe (8-10) Last Admin: 01/24/18 22:28 Dose: 4 mg Morphine Sulfate (Morphine) 2 mg IVP Q4 PRN PRN Reason: Pain, moderate (4-7) Morphine Sulfate (Morphine Accounts Manager 1 Mg/Ml) 0 mg IV PRN PRN; Protocol PRN Reason: Pain, moderate (4-7) Last Admin: 01/24/18 00:55 Dose: 30 mg Mupirocin (Bactroban Ointment) 1 applic TOP DAILY [facility] Last Admin: 01/24/18 15:42 Dose: Not Given Ondansetron HCl (Zofran Inj) 4 mg IVP Q4 PRN PRN Reason: Nausea/Vomiting - Labs Labs: 01/25/18 04:20 01/25/18 04:20 PT 11.9 Seconds (9.8-13.1) 01/24/18 04:20 INR 1.1 (0.9-1.2) 01/24/18 04:20 APTT 46.2 Seconds (25.6-37.1) H D 01/24/18 04:20 - Extremities Exam Additional comments: S/P left BKA. Assessment and Plan - Assessment and Plan (Free Text) Assessment: 67 yo woman s/p left BKA, POD #1. - start Oxycontin 10mg q12h - continue morphine PROPERTY SPECIALIST, change interval to q15min - add Neurontin 100mg q8h to regimen - will titrate medication as tolerated
[2018-01-25] MEDS: Insulin Regular 100 units/ml SC SCH ×4 (08:37→22:28)
[2018-01-25] MEDS: Cefepime 1 GM in Sodium Chloride 0.9% 100 ML IVPB SCH ×2 (09:16→22:27)
[2018-01-25] MEDS: Lidocaine 5% Patch TD SCH (10:45)
[2018-01-25] MEDS: oxyCODONE 10 mg ER Tab (oxyCONTIN) PO SCH ×2 (10:53→22:26)
[2018-01-25] MEDS: Insulin Detemir 100 Units/ml Inj SC SCH (22:30)
[2018-01-25] MEDS: Benzocaine/Menthol (Cepacol) Lozenge PO PRN (22:37)
[2018-01-26 07:31] LABS: BASO # 0.1 K/uL (0.0-0.2); BASO % 0.6 % (0.0-2.0); EOS % 0.3 % (0.0-4.0); HEMOGLOBIN 13.4 g/dL (12.0-16.0); LYMPH # 1.3 K/uL (1.0-4.3); LYMPH % 10.6 % (20.0-40.0); MEAN CELL VOLUME 89.3 fl (81.0-99.0); MEAN CORPUSCULAR HEMOGLOBIN 30.2 pg (27.0-31.0); MEAN CORPUSCULAR HGB CONC 33.8 g/dL (33.0-37.0); MEAN PLATELET VOLUME 10.4 fl (7.2-11.7); MONO # 1.2 K/uL (0.0-0.8); MONO % 9.5 % (0.0-10.0); NRBC % 0.2 % (0.0-0.0); RBC 4.44 Mil/uL (3.80-5.20); RED CELL DISTRIBUTION WIDTH 14.3 % (11.5-14.5); WHITE BLOOD COUNT 12.6 K/uL (4.8-10.8)
[2018-01-26] MEDS: Insulin Regular 100 units/ml SC SCH ×4 (07:45→22:00)
--- NOTE | 2018-01-26 08:39 | CP.PCM.PN ---
Subjective - Date & Time of Evaluation Date of Evaluation: 01/26/18 Time of Evaluation: 08:00 - Subjective Subjective: Pain is better controlled with Oxycontin. Morphine MEDICAL APPARATUS MODEL MAKER was held due to patient reportedly being somnolent. Oxycontin alone has been able to control her pain. Neurontin was held as a precaution. Patient denies side effects from Oxycontin, does have phantom sensation though pain is minimal with Oxycontin. Objective - Vital Signs/Intake and Output Vital Signs (last 24 hours): Temp Pulse Resp BP Pulse Ox 97.9 F 82 18 126/89 97 01/26/18 07:50 01/26/18 07:50 01/26/18 07:50 01/26/18 07:50 01/26/18 07:50 - Medications Medications: Current Medications Acetaminophen (Tylenol 325mg Tab) 650 mg PO Q6 PRN PRN Reason: Pain, Mild (1-3) Last Admin: 01/20/18 21:20 Dose: 650 mg Aspirin (Aspirin Chewable) 81 mg PO DAILY [facility] Last Admin: 01/21/18 10:40 Dose: Not Given Atorvastatin Calcium (Lipitor) 40 mg PO HS [facility] Last Admin: 01/25/18 22:28 Dose: 40 mg Benzocaine/Menthol (Cepacol Sore Throat) 1 grazyna PO Q2 PRN PRN Reason: Sore Throat Last Admin: 01/25/18 22:37 Dose: 1 grazyna Carvedilol (Coreg) 3.125 mg PO Q12 [facility] Last Admin: 01/25/18 22:28 Dose: 3.125 mg Clopidogrel Bisulfate (Plavix) 75 mg PO DAILY [facility] Last Admin: 01/20/18 12:28 Dose: 75 mg Dextrose (Dextrose 50% Inj) 0 ml IV STAT PRN; Protocol PRN Reason: Hypoglycemia Protocol Dextrose (Glutose 15) 0 gm PO ONCE PRN; Protocol PRN Reason: Hypoglycemia Protocol Docusate Sodium (Colace) 200 mg PO DAILY [facility] Last Admin: 01/25/18 08:32 Dose: 200 mg Enoxaparin Sodium (Lovenox) 40 mg SC DAILY [facility] PRN Reason: Protocol Fluoxetine HCl (Prozac) 20 mg PO DAILY [facility] Last Admin: 01/25/18 08:38 Dose: 20 mg Furosemide (Lasix) 20 mg PO BID [facility] Last Admin: 01/25/18 18:20 Dose: Not Given Glucagon (Glucagen Diagnostic Kit) 0 mg IM STAT PRN; Protocol PRN Reason: Hypoglycemia Protocol Vancomycin HCl 1 gm/ Sodium (Chloride) 250 mls @ 166.667 mls/hr IVPB DAILY [facility] PRN Reason: Protocol Last Admin: 01/25/18 10:43 Dose: 166.667 mls/hr Cefepime HCl 1 gm/ Sodium (Chloride) 100 mls @ 100 mls/hr IVPB Q12 [facility] PRN Reason: Protocol Last Admin: 01/25/18 22:27 Dose: 100 mls/hr Insulin Detemir (Levemir) 12 units SC HS [facility] Insulin Human Regular (Humulin R) 0 units SC ACHS [facility] PRN Reason: Protocol Last Admin: 01/25/18 22:28 Dose: Not Given Isosorbide Mononitrate (Imdur Er) 30 mg PO DAILY [facility] Last Admin: 01/25/18 14:47 Dose: 30 mg Lidocaine (Lidoderm) 2 ea TD DAILY [facility] Last Admin: 01/25/18 10:45 Dose: 2 ea Lisinopril (Zestril) 5 mg PO DAILY [facility] Last Admin: 01/25/18 10:44 Dose: 5 mg Morphine Sulfate (Morphine Qualitative Field Coordinator 1 Mg/Ml) 0 mg IV PRN PRN; Protocol PRN Reason: Pain, moderate (4-7) Last Admin: 01/25/18 08:48 Dose: 30 mg Mupirocin (Bactroban Ointment) 1 applic TOP DAILY [facility] Last Admin: 01/25/18 08:38 Dose: Not Given Ondansetron HCl (Zofran Inj) 4 mg IVP Q4 PRN PRN Reason: Nausea/Vomiting Oxycodone HCl (Oxycontin Extended Release Tab) 10 mg PO Q12 [facility] Stop: 01/28/18 09:01 Last Admin: 01/25/18 22:26 Dose: 10 mg - Labs Labs: 01/26/18 04:20 01/26/18 04:20 PT 11.9 Seconds (9.8-13.1) 01/24/18 04:20 INR 1.1 (0.9-1.2) 01/24/18 04:20 APTT 46.2 Seconds (25.6-37.1) H D 01/24/18 04:20 - Extremities Exam Additional comments: S/P Left BKA Assessment and Plan (1) Gangrene Assessment & Plan: 67 yo s/p left BKA, POD #2. Pain is controlled with Oxycontin. - continue Oxycontin 10mg q12h for now - would restart Neurontin at low dose for phantom pain - patient can be discharged on above regimen, please re-consult PRN Status: Acute (2) Diabetic foot ulcer Status: Acute
[2018-01-26 08:49] LABS: CALCIUM 9.8 mg/dL (8.4-10.2)
--- NOTE | 2018-01-26 08:52 | CP.PCM.PN ---
Subjective - Date & Time of Evaluation Date of Evaluation: 01/26/18 Time of Evaluation: 08:52 - Subjective Subjective: S/P BKA, POD 2 Patient seen this morning at bedside, reports feeling better, no complaint of pain at this time. 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 Patient denies fever, chills, nausea, vomiting, chest or abdominal pain, no palpitations, no sob. States low appetite. Voiding freely. Objective - Vital Signs/Intake and Output Vital Signs (last 24 hours): Temp Pulse Resp BP Pulse Ox 97.9 F 82 18 126/89 97 01/26/18 07:50 01/26/18 07:50 01/26/18 07:50 01/26/18 07:50 01/26/18 07:50 - Medications Medications: Current Medications Acetaminophen (Tylenol 325mg Tab) 650 mg PO Q6 PRN PRN Reason: Pain, Mild (1-3) Last Admin: 01/20/18 21:20 Dose: 650 mg Aspirin (Aspirin Chewable) 81 mg PO DAILY [facility] Atorvastatin Calcium (Lipitor) 40 mg PO HS [facility] Last Admin: 01/25/18 22:28 Dose: 40 mg Benzocaine/Menthol (Cepacol Sore Throat) 1 grazyna PO Q2 PRN PRN Reason: Sore Throat Last Admin: 01/25/18 22:37 Dose: 1 grazyna Carvedilol (Coreg) 3.125 mg PO Q12 [facility] Last Admin: 01/25/18 22:28 Dose: 3.125 mg Clopidogrel Bisulfate (Plavix) 75 mg PO DAILY [facility] Last Admin: 01/20/18 12:28 Dose: 75 mg Dextrose (Dextrose 50% Inj) 0 ml IV STAT PRN; Protocol PRN Reason: Hypoglycemia Protocol Dextrose (Glutose 15) 0 gm PO ONCE PRN; Protocol PRN Reason: Hypoglycemia Protocol Docusate Sodium (Colace) 200 mg PO DAILY [facility] Last Admin: 01/25/18 08:32 Dose: 200 mg Enoxaparin Sodium (Lovenox) 40 mg SC DAILY [facility] PRN Reason: Protocol Fluoxetine HCl (Prozac) 20 mg PO DAILY [facility] Last Admin: 01/25/18 08:38 Dose: 20 mg Furosemide (Lasix) 20 mg PO BID [facility] Last Admin: 01/25/18 18:20 Dose: Not Given Gabapentin (Neurontin) 100 mg PO BID [facility] Glucagon (Glucagen Diagnostic Kit) 0 mg IM STAT PRN; Protocol PRN Reason: Hypoglycemia Protocol Vancomycin HCl 1 gm/ Sodium (Chloride) 250 mls @ 166.667 mls/hr IVPB DAILY [facility] PRN Reason: Protocol Last Admin: 01/25/18 10:43 Dose: 166.667 mls/hr Cefepime HCl 1 gm/ Sodium (Chloride) 100 mls @ 100 mls/hr IVPB Q12 [facility] PRN Reason: Protocol Last Admin: 01/25/18 22:27 Dose: 100 mls/hr Insulin Detemir (Levemir) 12 units SC HS [facility] Insulin Human Regular (Humulin R) 0 units SC ACHS [facility] PRN Reason: Protocol Last Admin: 01/25/18 22:28 Dose: Not Given Isosorbide Mononitrate (Imdur Er) 30 mg PO DAILY [facility] Last Admin: 01/25/18 14:47 Dose: 30 mg Lidocaine (Lidoderm) 2 ea TD DAILY [facility] Last Admin: 01/25/18 10:45 Dose: 2 ea Lisinopril (Zestril) 5 mg PO DAILY [facility] Last Admin: 01/25/18 10:44 Dose: 5 mg Mupirocin (Bactroban Ointment) 1 applic TOP DAILY [facility] Last Admin: 01/25/18 08:38 Dose: Not Given Ondansetron HCl (Zofran Inj) 4 mg IVP Q4 PRN PRN Reason: Nausea/Vomiting Oxycodone HCl (Oxycontin Extended Release Tab) 10 mg PO Q12 [facility] Stop: 01/28/18 09:01 Last Admin: 01/25/18 22:26 Dose: 10 mg - Labs Labs: 01/26/18 04:20 01/26/18 04:20 PT 11.9 Seconds (9.8-13.1) 01/24/18 04:20 INR 1.1 (0.9-1.2) 01/24/18 04:20 APTT 46.2 Seconds (25.6-37.1) H D 01/24/18 04:20 - Constitutional Appears: Well, No Acute Distress - Head Exam Head Exam: NORMAL INSPECTION - Eye Exam Eye Exam: EOMI, PERRL - Respiratory Exam Respiratory Exam: Clear to Ausculation Bilateral, NORMAL BREATHING PATTERN. absent: Rales, Rhonchi, Wheezes - Cardiovascular Exam Cardiovascular Exam: REGULAR RHYTHM, +S1, +S2. absent: Tachycardia - GI/Abdominal Exam GI & Abdominal Exam: Soft, Normal Bowel Sounds. absent: Distended, Tenderness - Extremities Exam Extremities Exam: absent: Calf Tenderness Additional comments: LLE dressing clean, intact. Knee immobilizer in place. - Neurological Exam Neurological Exam: Awake, Oriented x3 - Psychiatric Exam Psychiatric exam: Normal Mood Assessment and Plan - Assessment and Plan (Free Text) Assessment: 67 yo F with PMHx of DM2, HTN, HLD, LA, CVA, chronic back pain, admitted with left lower extremity limb ischemia s/p angiography on 01/17 at [facility]. S /P BKA on 01/24 per surgery. Hold Heparin, Lovenox, ASA and Plavix started today. POD 2. 1- Limb Ischemia/thrombus - Vascular studies 01/15/18- severe limb ischemia - Angiogram 01/17 - revascularize unsuccessful 11/26 severe thrombus - Vascular surg Dr. Christian, on board. - ID Dr. Palacios on board. - c/w Vanc 4/ (day 3) - c/w Cefepine / (day 4) - Vascular Dr. Mcdaniel on board, appreciate input. Hold Heparin drip. 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 - Pain management with Oxycontin 10 mg BID, Dr Skinner input appreciated. - WBC trending down 12.4 today from 17.5 yesterday. - f/u vanco trough 2- Coronary Artery Disease -Resume aspirin and plavix today 3- Insulin Dependent Type 2 Diabetes - c/w Levemir 10U HS. - Hypoglycemia protocol and insulin coverage scale. - Accuchecks ACHS. - Diabetic diet. 4- Systolic CHF Last echo 05/22/17 showed EF of 20%. -Continue carvedilol 3.125 BID -Continue furosemide 20mg BID -Continue isosorbide mononitrate 30 mg -Lisinopril 5mg 5- Depression - Continue with Fluoxetine 6- HLD - Continue with Lipitor 40mg HS 7- DVT prophylaxis - Start Levonox 40mcg
[2018-01-26] MEDS ORDERED: Enoxaparin 40 mg Syringe SC SCH (09:00)
[2018-01-26] MEDS: oxyCODONE 10 mg ER Tab (oxyCONTIN) PO SCH ×2 (10:28→23:12)
[2018-01-26] MEDS: Cefepime 1 GM in Sodium Chloride 0.9% 100 ML IVPB SCH ×2 (10:30→23:02)
[2018-01-26] MEDS: Lidocaine 5% Patch TD SCH (10:31)
[2018-01-26] MEDS: Insulin Detemir 100 Units/ml Inj SC SCH ×2 (10:33→23:09)
--- NOTE | 2018-01-26 11:55 | CP.PCM.PN ---
Subjective - Date & Time of Evaluation Date of Evaluation: 01/26/18 Time of Evaluation: 09:00 - Subjective Subjective: General Surgery Note- Dr. Christian 67 y.o female seen and evaluated at bedside s/p L BKA POD#2. Patient is seen resting comfortably in bed, in NAD, and AA0x3. Patient reports some mild pain to surgical site during time of visitation. Reports pain is well managed by pain medication. Denies nausea, vomiting, fever, shortness of breath, chest pains or chills. Objective - Vital Signs/Intake and Output Vital Signs (last 24 hours): Temp Pulse Resp BP Pulse Ox 97.9 F 82 18 126/89 97 01/26/18 07:50 01/26/18 10:43 01/26/18 07:50 01/26/18 10:43 01/26/18 07:50 - Medications Medications: Current Medications Acetaminophen (Tylenol 325mg Tab) 650 mg PO Q6 PRN PRN Reason: Pain, Mild (1-3) Last Admin: 01/20/18 21:20 Dose: 650 mg Aspirin (Aspirin Chewable) 81 mg PO DAILY [facility] Last Admin: 01/26/18 10:41 Dose: 81 mg Atorvastatin Calcium (Lipitor) 40 mg PO HS [facility] Last Admin: 01/25/18 22:28 Dose: 40 mg Benzocaine/Menthol (Cepacol Sore Throat) 1 grazyna PO Q2 PRN PRN Reason: Sore Throat Last Admin: 01/25/18 22:37 Dose: 1 grazyna Carvedilol (Coreg) 3.125 mg PO Q12 [facility] Last Admin: 01/26/18 10:38 Dose: 3.125 mg Clopidogrel Bisulfate (Plavix) 75 mg PO DAILY [facility] Last Admin: 01/26/18 10:56 Dose: 75 mg Dextrose (Dextrose 50% Inj) 0 ml IV STAT PRN; Protocol PRN Reason: Hypoglycemia Protocol Dextrose (Glutose 15) 0 gm PO ONCE PRN; Protocol PRN Reason: Hypoglycemia Protocol Docusate Sodium (Colace) 200 mg PO DAILY [facility] Last Admin: 01/26/18 10:37 Dose: 200 mg Enoxaparin Sodium (Lovenox) 40 mg SC DAILY [facility] PRN Reason: Protocol Last Admin: 01/26/18 10:30 Dose: 40 mg Fluoxetine HCl (Prozac) 20 mg PO DAILY [facility] Last Admin: 01/26/18 10:42 Dose: 20 mg Furosemide (Lasix) 20 mg PO BID [facility] Last Admin: 01/26/18 10:42 Dose: 20 mg Gabapentin (Neurontin) 100 mg PO BID [facility] Last Admin: 01/26/18 10:39 Dose: 100 mg Glucagon (Glucagen Diagnostic Kit) 0 mg IM STAT PRN; Protocol PRN Reason: Hypoglycemia Protocol Vancomycin HCl 1 gm/ Sodium (Chloride) 250 mls @ 166.667 mls/hr IVPB DAILY [facility] PRN Reason: Protocol Last Admin: 01/25/18 10:43 Dose: 166.667 mls/hr Cefepime HCl 1 gm/ Sodium (Chloride) 100 mls @ 100 mls/hr IVPB Q12 [facility] PRN Reason: Protocol Last Admin: 01/26/18 10:30 Dose: 100 mls/hr Insulin Detemir (Levemir) 12 units SC HS [facility] Last Admin: 01/26/18 10:33 Dose: 12 units Insulin Human Regular (Humulin R) 0 units SC ACHS [facility] PRN Reason: Protocol Last Admin: 01/26/18 07:45 Dose: 3 units Isosorbide Mononitrate (Imdur Er) 30 mg PO DAILY [facility] Last Admin: 01/26/18 10:36 Dose: 30 mg Lidocaine (Lidoderm) 2 ea TD DAILY [facility] Last Admin: 01/26/18 10:31 Dose: 2 ea Lisinopril (Zestril) 5 mg PO DAILY [facility] Last Admin: 01/26/18 10:43 Dose: 5 mg Mupirocin (Bactroban Ointment) 1 applic TOP DAILY [facility] Last Admin: 01/26/18 10:37 Dose: Not Given Ondansetron HCl (Zofran Inj) 4 mg IVP Q4 PRN PRN Reason: Nausea/Vomiting Oxycodone HCl (Oxycontin Extended Release Tab) 10 mg PO Q12 [facility] Stop: 01/28/18 09:01 Last Admin: 01/26/18 10:28 Dose: 10 mg - Labs Labs: 01/26/18 04:20 01/26/18 04:20 PT 11.9 Seconds (9.8-13.1) 01/24/18 04:20 INR 1.1 (0.9-1.2) 01/24/18 04:20 APTT 46.2 Seconds (25.6-37.1) H D 01/24/18 04:20 - Constitutional Appears: Well, Non-toxic, No Acute Distress - Head Exam Head Exam: ATRAUMATIC, NORMAL INSPECTION - Eye Exam Eye Exam: Normal appearance Pupil Exam: NORMAL ACCOMODATION - ENT Exam ENT Exam: Mucous Membranes Moist - Neck Exam Neck Exam: Normal Inspection - Respiratory Exam Respiratory Exam: NORMAL BREATHING PATTERN - Cardiovascular Exam Cardiovascular Exam: REGULAR RHYTHM - Exam Exam: NORMAL INSPECTION - Extremities Exam Additional comments: s/p L BKA - dressing clean dry and intact without strikethrough noted Knee immobilizer in place to the L lower extremity - Neurological Exam Neurological Exam: Alert, Awake, Oriented x3 - Psychiatric Exam Psychiatric exam: Normal Affect, Normal Mood Assessment and Plan - Assessment and Plan (Free Text) Assessment: 67F s/p L BKA POD#2 Plan: -HHD/CCD -Pain control -Monitor for bleeding -Please keep dressing clean, dry, and intact. Do not change, do not get wet -Keep knee immobilizer on all time so leg is always straight -Discussed with Dr. Christian
--- NOTE | 2018-01-26 13:12 | CP.PCM.PN ---
Subjective - Date & Time of Evaluation Date of Evaluation: 01/26/18 Time of Evaluation: 08:00 - Subjective Subjective: seen and evaluated at bedside s/p L BKA POD#2. Objective - Vital Signs/Intake and Output Vital Signs (last 24 hours): Temp Pulse Resp BP Pulse Ox 97.9 F 75 20 144/66 95 01/26/18 11:58 01/26/18 11:58 01/26/18 11:58 01/26/18 11:58 01/26/18 11:58 - Medications Medications: Current Medications Acetaminophen (Tylenol 325mg Tab) 650 mg PO Q6 PRN PRN Reason: Pain, Mild (1-3) Last Admin: 01/20/18 21:20 Dose: 650 mg Aspirin (Aspirin Chewable) 81 mg PO DAILY [facility] Last Admin: 01/26/18 10:41 Dose: 81 mg Atorvastatin Calcium (Lipitor) 40 mg PO HS [facility] Last Admin: 01/25/18 22:28 Dose: 40 mg Benzocaine/Menthol (Cepacol Sore Throat) 1 grazyna PO Q2 PRN PRN Reason: Sore Throat Last Admin: 01/25/18 22:37 Dose: 1 grazyna Carvedilol (Coreg) 3.125 mg PO Q12 [facility] Last Admin: 01/26/18 10:38 Dose: 3.125 mg Clopidogrel Bisulfate (Plavix) 75 mg PO DAILY [facility] Last Admin: 01/26/18 10:56 Dose: 75 mg Dextrose (Dextrose 50% Inj) 0 ml IV STAT PRN; Protocol PRN Reason: Hypoglycemia Protocol Dextrose (Glutose 15) 0 gm PO ONCE PRN; Protocol PRN Reason: Hypoglycemia Protocol Docusate Sodium (Colace) 200 mg PO DAILY [facility] Last Admin: 01/26/18 10:37 Dose: 200 mg Enoxaparin Sodium (Lovenox) 40 mg SC DAILY [facility] PRN Reason: Protocol Last Admin: 01/26/18 10:30 Dose: 40 mg Fluoxetine HCl (Prozac) 20 mg PO DAILY [facility] Last Admin: 01/26/18 10:42 Dose: 20 mg Furosemide (Lasix) 20 mg PO BID [facility] Last Admin: 01/26/18 10:42 Dose: 20 mg Gabapentin (Neurontin) 100 mg PO BID [facility] Last Admin: 01/26/18 10:39 Dose: 100 mg Glucagon (Glucagen Diagnostic Kit) 0 mg IM STAT PRN; Protocol PRN Reason: Hypoglycemia Protocol Vancomycin HCl 1 gm/ Sodium (Chloride) 250 mls @ 166.667 mls/hr IVPB DAILY [facility] PRN Reason: Protocol Last Admin: 01/25/18 10:43 Dose: 166.667 mls/hr Cefepime HCl 1 gm/ Sodium (Chloride) 100 mls @ 100 mls/hr IVPB Q12 [facility] PRN Reason: Protocol Last Admin: 01/26/18 10:30 Dose: 100 mls/hr Insulin Detemir (Levemir) 12 units SC HS [facility] Last Admin: 01/26/18 10:33 Dose: 12 units Insulin Human Regular (Humulin R) 0 units SC ACHS [facility] PRN Reason: Protocol Last Admin: 01/26/18 07:45 Dose: 3 units Isosorbide Mononitrate (Imdur Er) 30 mg PO DAILY [facility] Last Admin: 01/26/18 10:36 Dose: 30 mg Lidocaine (Lidoderm) 2 ea TD DAILY [facility] Last Admin: 01/26/18 10:31 Dose: 2 ea Lisinopril (Zestril) 5 mg PO DAILY [facility] Last Admin: 01/26/18 10:43 Dose: 5 mg Lorazepam (Ativan) 1 mg IVP Q6 PRN PRN Reason: Anxiety Morphine Sulfate (Morphine) 2 mg IVP Q4 PRN PRN Reason: Pain, moderate (4-7) Mupirocin (Bactroban Ointment) 1 applic TOP DAILY [facility] Last Admin: 01/26/18 10:37 Dose: Not Given Ondansetron HCl (Zofran Inj) 4 mg IVP Q4 PRN PRN Reason: Nausea/Vomiting Oxycodone HCl (Oxycontin Extended Release Tab) 10 mg PO Q12 [facility] Stop: 01/28/18 09:01 Last Admin: 01/26/18 10:28 Dose: 10 mg - Labs Labs: 01/26/18 04:20 01/26/18 04:20 PT 11.9 Seconds (9.8-13.1) 01/24/18 04:20 INR 1.1 (0.9-1.2) 01/24/18 04:20 APTT 46.2 Seconds (25.6-37.1) H D 04/02/18 04:20 - Constitutional Appears: Non-toxic, Chronically Ill - Head Exam Head Exam: NORMOCEPHALIC - Eye Exam Eye Exam: PERRL - ENT Exam ENT Exam: Mucous Membranes Dry - Neck Exam Neck Exam: absent: Lymphadenopathy - Respiratory Exam Respiratory Exam: Decreased Breath Sounds - Cardiovascular Exam Cardiovascular Exam: REGULAR RHYTHM - GI/Abdominal Exam GI & Abdominal Exam: Distended, Soft Assessment and Plan (1) Gangrene Status: Acute (2) Acute kidney injury Status: Acute (3) CAD (coronary artery disease) Status: Acute (4) Cardiomyopathy, dilated Status: Acute (5) Diabetic foot ulcer Status: Acute (6) Hyperglycemia due to type 2 diabetes mellitus Status: Acute (7) Osteomyelitis Status: Acute - Assessment and Plan (Free Text) Assessment: cont iv rx for 7 days post op
[2018-01-26] MEDS: Morphine 4 MG/ML VIAL IVP PRN (13:15)
[2018-01-27] MEDS: Morphine 4 MG/ML VIAL IVP PRN ×3 (05:59→15:45)
[2018-01-27 07:43] LABS: BASO # 0.1 K/uL (0.0-0.2); BASO % 0.5 % (0.0-2.0); EOS # 0.2 K/uL (0.0-0.7); EOS % 1.1 % (0.0-4.0); HEMOGLOBIN 13.4 g/dL (12.0-16.0); LYMPH # 1.2 K/uL (1.0-4.3); LYMPH % 8.8 % (20.0-40.0); MEAN CELL VOLUME 88.6 fl (81.0-99.0); MEAN CORPUSCULAR HEMOGLOBIN 29.3 pg (27.0-31.0); MEAN PLATELET VOLUME 9.9 fl (7.2-11.7); MONO # 1.3 K/uL (0.0-0.8); MONO % 9.3 % (0.0-10.0); NEUT # 11.1 K/uL (1.8-7.0); NEUT % 80.3 % (50.0-75.0); PLATELET COUNT 255 K/uL (130-400); RBC 4.58 Mil/uL (3.80-5.20); RED CELL DISTRIBUTION WIDTH 14.3 % (11.5-14.5); WHITE BLOOD COUNT 13.8 K/uL (4.8-10.8)
--- NOTE | 2018-01-27 07:46 | CP.PCM.PN ---
Subjective - Date & Time of Evaluation Date of Evaluation: 01/27/18 Time of Evaluation: 07:30 - Subjective Subjective: General Surgery Note- Dr. Christian 67 y.o female seen and evaluated at bedside s/p L BKA POD#3. Patient is seen resting comfortably in bed, in NAD, and AA0x3. Patient reports pain today during visitation. Reports she would get pain however pain is well managed by pain medication. Denies nausea, vomiting, fever, shortness of breath, chest pains. Reports feeling cold. Objective - Vital Signs/Intake and Output Vital Signs (last 24 hours): Temp Pulse Resp BP Pulse Ox 98.4 F 80 20 146/77 95 01/26/18 23:57 01/26/18 23:57 01/26/18 23:57 01/26/18 23:57 01/26/18 23:57 - Medications Medications: Current Medications Acetaminophen (Tylenol 325mg Tab) 650 mg PO Q6 PRN PRN Reason: Pain, Mild (1-3) Last Admin: 01/20/18 21:20 Dose: 650 mg Aspirin (Aspirin Chewable) 81 mg PO DAILY [facility] Last Admin: 01/26/18 10:41 Dose: 81 mg Atorvastatin Calcium (Lipitor) 40 mg PO HS [facility] Last Admin: 01/26/18 23:01 Dose: 40 mg Benzocaine/Menthol (Cepacol Sore Throat) 1 grazyna PO Q2 PRN PRN Reason: Sore Throat Last Admin: 01/25/18 22:37 Dose: 1 grazyna Carvedilol (Coreg) 3.125 mg PO Q12 [facility] Last Admin: 01/26/18 23:01 Dose: 3.125 mg Clopidogrel Bisulfate (Plavix) 75 mg PO DAILY [facility] Last Admin: 01/26/18 10:56 Dose: 75 mg Dextrose (Dextrose 50% Inj) 0 ml IV STAT PRN; Protocol PRN Reason: Hypoglycemia Protocol Dextrose (Glutose 15) 0 gm PO ONCE PRN; Protocol PRN Reason: Hypoglycemia Protocol Docusate Sodium (Colace) 200 mg PO DAILY [facility] Last Admin: 01/26/18 10:37 Dose: 200 mg Enoxaparin Sodium (Lovenox) 30 mg SC DAILY [facility] PRN Reason: Protocol Fluoxetine HCl (Prozac) 20 mg PO DAILY [facility] Last Admin: 01/26/18 10:42 Dose: 20 mg Furosemide (Lasix) 20 mg PO BID [facility] Last Admin: 01/26/18 16:33 Dose: 20 mg Gabapentin (Neurontin) 100 mg PO BID [facility] Last Admin: 01/26/18 16:33 Dose: 100 mg Glucagon (Glucagen Diagnostic Kit) 0 mg IM STAT PRN; Protocol PRN Reason: Hypoglycemia Protocol Vancomycin HCl 1 gm/ Sodium (Chloride) 250 mls @ 166.667 mls/hr IVPB DAILY [facility] PRN Reason: Protocol Last Admin: 01/26/18 13:16 Dose: 166.667 mls/hr Insulin Detemir (Levemir) 12 units SC HS [facility] Last Admin: 01/26/18 23:09 Dose: 12 units Insulin Human Regular (Humulin R) 0 units SC ACHS [facility] PRN Reason: Protocol Last Admin: 01/26/18 22:00 Dose: Not Given Isosorbide Mononitrate (Imdur Er) 30 mg PO DAILY [facility] Last Admin: 01/26/18 10:36 Dose: 30 mg Lidocaine (Lidoderm) 2 ea TD DAILY [facility] Last Admin: 01/26/18 10:31 Dose: 2 ea Lisinopril (Zestril) 5 mg PO DAILY [facility] Last Admin: 01/26/18 10:43 Dose: 5 mg Lorazepam (Ativan) 1 mg IVP Q6 PRN PRN Reason: Anxiety Last Admin: 01/26/18 16:26 Dose: 1 mg Morphine Sulfate (Morphine) 2 mg IVP Q4 PRN PRN Reason: Pain, moderate (4-7) Last Admin: 01/27/18 05:59 Dose: 2 mg Mupirocin (Bactroban Ointment) 1 applic TOP DAILY [facility] Last Admin: 01/26/18 10:37 Dose: Not Given Ondansetron HCl (Zofran Inj) 4 mg IVP Q4 PRN PRN Reason: Nausea/Vomiting Oxycodone HCl (Oxycontin Extended Release Tab) 10 mg PO Q12 [facility] Stop: 01/28/18 09:01 Last Admin: 01/26/18 23:12 Dose: Not Given - Labs Labs: 01/26/18 04:20 01/26/18 04:20 PT 11.9 Seconds (9.8-13.1) 01/24/18 04:20 INR 1.1 (0.9-1.2) 01/24/18 04:20 APTT 46.2 Seconds (25.6-37.1) H D 01/24/18 04:20 - Constitutional Appears: Well, Non-toxic, No Acute Distress - Head Exam Head Exam: NORMAL INSPECTION - Eye Exam Eye Exam: Normal appearance - ENT Exam ENT Exam: Mucous Membranes Moist - Neck Exam Neck Exam: Full ROM - Respiratory Exam Respiratory Exam: NORMAL BREATHING PATTERN - Extremities Exam Additional comments: s/p L BKA - dressing clean dry and intact without strikethrough noted SHABBIR intact Knee immobilizer in place to the L lower extremity - Neurological Exam Neurological Exam: Alert, Awake, Oriented x3 - Psychiatric Exam Psychiatric exam: Normal Mood Assessment and Plan - Assessment and Plan (Free Text) Assessment: 67F s/p L BKA POD#3 Plan: -HHD/CCD -Pain control -Monitor for bleeding -Please keep dressing clean, dry, and intact. Do not change, do not get wet -Keep knee immobilizer on all time so leg is always straight -Discussed with Dr. Christian
[2018-01-27 08:02] LABS: ALB/GLOB RATIO 0.8 (1.0-2.1); ALBUMIN 3.2 g/dL (3.5-5.0); CALCIUM 9.8 mg/dL (8.4-10.2)
[2018-01-27] MEDS: Insulin Regular 100 units/ml SC SCH ×4 (08:18→22:51)
--- NOTE | 2018-01-27 09:16 | CP.PCM.PN ---
Subjective - Date & Time of Evaluation Date of Evaluation: 01/27/18 Time of Evaluation: 07:01 - Subjective Subjective: BKA POD#3. Patient is seen resting comfortably in bed, Patient reports pain today during exam but it is well managed by pain medication. Denies nausea, vomiting, fever, shortness of breath, chest pains. No urinary symptoms, last BM on Wednesday. Patient reports feeling anxious regarding her recuperation, reassure was provided. Objective - Vital Signs/Intake and Output Vital Signs (last 24 hours): Temp Pulse Resp BP Pulse Ox 98.6 F 88 20 172/90 H 100 01/27/18 09:06 01/27/18 09:06 01/27/18 09:06 01/27/18 09:06 01/27/18 09:06 - Medications Medications: Current Medications Acetaminophen (Tylenol 325mg Tab) 650 mg PO Q6 PRN PRN Reason: Pain, Mild (1-3) Last Admin: 01/20/18 21:20 Dose: 650 mg Aspirin (Aspirin Chewable) 81 mg PO DAILY [facility] Last Admin: 01/26/18 10:41 Dose: 81 mg Atorvastatin Calcium (Lipitor) 40 mg PO HS [facility] Last Admin: 01/26/18 23:01 Dose: 40 mg Benzocaine/Menthol (Cepacol Sore Throat) 1 grazyna PO Q2 PRN PRN Reason: Sore Throat Last Admin: 01/25/18 22:37 Dose: 1 grazyna Carvedilol (Coreg) 3.125 mg PO Q12 [facility] Last Admin: 01/26/18 23:01 Dose: 3.125 mg Clopidogrel Bisulfate (Plavix) 75 mg PO DAILY [facility] Last Admin: 01/26/18 10:56 Dose: 75 mg Dextrose (Dextrose 50% Inj) 0 ml IV STAT PRN; Protocol PRN Reason: Hypoglycemia Protocol Dextrose (Glutose 15) 0 gm PO ONCE PRN; Protocol PRN Reason: Hypoglycemia Protocol Docusate Sodium (Colace) 200 mg PO DAILY [facility] Last Admin: 01/26/18 10:37 Dose: 200 mg Enoxaparin Sodium (Lovenox) 30 mg SC DAILY [facility] PRN Reason: Protocol Fluoxetine HCl (Prozac) 20 mg PO DAILY [facility] Last Admin: 01/26/18 10:42 Dose: 20 mg Furosemide (Lasix) 20 mg PO BID [facility] Last Admin: 01/26/18 16:33 Dose: 20 mg Gabapentin (Neurontin) 100 mg PO BID [facility] Last Admin: 01/26/18 16:33 Dose: 100 mg Glucagon (Glucagen Diagnostic Kit) 0 mg IM STAT PRN; Protocol PRN Reason: Hypoglycemia Protocol Insulin Detemir (Levemir) 12 units SC HS [facility] Last Admin: 01/26/18 23:09 Dose: 12 units Insulin Human Regular (Humulin R) 0 units SC ACHS [facility] PRN Reason: Protocol Last Admin: 01/26/18 22:00 Dose: Not Given Isosorbide Mononitrate (Imdur Er) 30 mg PO DAILY [facility] Last Admin: 01/26/18 10:36 Dose: 30 mg Lidocaine (Lidoderm) 2 ea TD DAILY [facility] Last Admin: 01/26/18 10:31 Dose: 2 ea Lisinopril (Zestril) 5 mg PO DAILY [facility] Last Admin: 01/26/18 10:43 Dose: 5 mg Lorazepam (Ativan) 1 mg IVP Q6 PRN PRN Reason: Anxiety Last Admin: 01/26/18 16:26 Dose: 1 mg Morphine Sulfate (Morphine) 2 mg IVP Q4 PRN PRN Reason: Pain, moderate (4-7) Last Admin: 01/27/18 05:59 Dose: 2 mg Mupirocin (Bactroban Ointment) 1 applic TOP DAILY [facility] Last Admin: 01/26/18 10:37 Dose: Not Given Ondansetron HCl (Zofran Inj) 4 mg IVP Q4 PRN PRN Reason: Nausea/Vomiting Oxycodone HCl (Oxycontin Extended Release Tab) 10 mg PO Q12 [facility] Stop: 01/28/18 09:01 Last Admin: 01/26/18 23:12 Dose: Not Given - Labs Labs: 01/27/18 05:30 01/27/18 05:30 PT 11.9 Seconds (9.8-13.1) 01/24/18 04:20 INR 1.1 (0.9-1.2) 01/24/18 04:20 APTT 46.2 Seconds (25.6-37.1) H D 01/24/18 04:20 - Constitutional Appears: No Acute Distress - Head Exam Head Exam: NORMAL INSPECTION - Eye Exam Eye Exam: EOMI, PERRL - Respiratory Exam Respiratory Exam: Clear to Ausculation Bilateral, NORMAL BREATHING PATTERN. absent: Rales, Rhonchi, Wheezes - Cardiovascular Exam Cardiovascular Exam: REGULAR RHYTHM, +S1, +S2. absent: Tachycardia - GI/Abdominal Exam GI & Abdominal Exam: Soft, Normal Bowel Sounds. absent: Distended, Tenderness - Extremities Exam Extremities Exam: absent: Calf Tenderness Additional comments: LLE dressing clean, intact. Knee immobilizer in place - Neurological Exam Neurological Exam: Awake, Oriented x3 - Psychiatric Exam Psychiatric exam: Anxious Assessment and Plan - Assessment and Plan (Free Text) Assessment: 67 yo F with PMHx of DM2, HTN, HLD, [place], CVA, chronic back pain, admitted with left lower extremity limb ischemia s/p angiography on 01/17 at [facility]. S /P BKA on 01/24 per surgery. POD 3. 1- Limb Ischemia/thrombus - Vascular studies 01/15/18- severe limb ischemia - Angiogram 01/17 - revascularize unsuccessful 11/26 severe thrombus - Vascular surg Dr. Christian, on board. - ID Dr. Palacios on board. - Vascular Dr. Mcdaniel on board. - c/w Vanc 4/ (day 4 to complete 7 days as per ID) - c/w Cefepine / (day 5 to compplete 7 days as per ID ) - Pain management with Oxycontin increased to 20 mg BID, Dr Skinner input appreciated. - WBC 13.8 - vanco trough 19.1 - PT eval pending due to pain. 2- Coronary Artery Disease -c/w aspirin and plavix as per Cardio 3- Insulin Dependent Type 2 Diabetes - c/w Levemir 10U HS. - Hypoglycemia protocol and insulin coverage scale. - Accuchecks ACHS. - Diabetic diet. 4- Systolic CHF Last echo 05/22/17 showed EF of 20%. -Continue carvedilol 3.125 BID -Continue furosemide 20mg BID -Continue isosorbide mononitrate 30 mg -Lisinopril 5mg 5- Depression - Continue with Fluoxetine 6- HLD - Continue with Lipitor 40mg HS 7- DVT prophylaxis - Start Levonox 40mcg
[2018-01-27] MEDS: Benzocaine/Menthol (Cepacol) Lozenge PO PRN (11:03)
[2018-01-27] MEDS: Lidocaine 5% Patch TD SCH (11:10)
[2018-01-27] MEDS: Enoxaparin 30 mg Syringe SC SCH (11:11)
[2018-01-27] MEDS ORDERED: Morphine 4 MG/ML VIAL IVP ONE (11:31)
[2018-01-27 12:16] LABS: BASOPHIL 1 % (0-2); EOSINOPHIL 4 % (0-7); LYMPHOCYTE 6 % (20-50); MONOCYTE 7 % (0-10); NEUTROPHIL 82 % (42-75); PLATELET ESTIMATE NORMAL (NORMAL); TOTAL CELLS COUNTED 100
--- NOTE | 2018-01-27 12:55 | RAD ---
HISTORY: Bilateral crackles COMPARISON: No prior comparison made with prior study 01/20/2018 FINDINGS: Re- demonstrated is an in situ right sided PICC line with tip in SVC. LUNGS: Interval development of mild linear areas of atelectasis left lower lung field with slight elevation left hemidiaphragm. PLEURA: No significant pleural effusion identified, no pneumothorax apparent. CARDIOVASCULAR: Heart size is unchanged OSSEOUS STRUCTURES: No significant abnormalities. VISUALIZED UPPER ABDOMEN: Normal. OTHER FINDINGS: None. IMPRESSION: Linear atelectasis left lower lung field with slight elevation left hemidiaphragm
[2018-01-27] MEDS: oxyCODONE 20 mg ER Tab (oxyCONTIN) PO SCH (20:59)
[2018-01-27] MEDS: Insulin Detemir 100 Units/ml Inj SC SCH (22:58)
--- NOTE | 2018-01-28 07:51 | CP.PCM.PCO ---
Physician Communication Note - Physician Communication Note Physician Communication Note: Pain improved slightly, L BKA site clean, dry and intact
--- NOTE | 2018-01-28 08:33 | CP.PCM.PN ---
<Wen Dallas - Last Filed: 01/28/18 14:32> Subjective - Date & Time of Evaluation Date of Evaluation: 01/28/18 Time of Evaluation: 08:33 - Subjective Subjective: BKA POD 4. Patient is seen resting comfortably in bed. She reports feeling more animated today and still having mild pain but said it is well managed by pain medication. Denies nausea, vomiting, fever, shortness of breath, chest pains, palpitations. No urinary symptoms, last BM on Wednesday. States low appetite. Objective - Vital Signs/Intake and Output Vital Signs (last 24 hours): Temp Pulse Resp BP Pulse Ox 99.2 F 84 20 144/83 97 01/27/18 23:48 01/27/18 23:48 01/27/18 23:48 01/27/18 23:48 01/27/18 23:48 - Medications Medications: Current Medications Acetaminophen (Tylenol 325mg Tab) 650 mg PO Q6 PRN PRN Reason: Pain, Mild (1-3) Last Admin: 01/20/18 21:20 Dose: 650 mg Alprazolam (Xanax) 0.25 mg PO DAILY [facility] Stop: 02/04/18 09:01 Aspirin (Aspirin Chewable) 81 mg PO DAILY [facility] Last Admin: 01/27/18 11:05 Dose: 81 mg Atorvastatin Calcium (Lipitor) 40 mg PO HS [facility] Last Admin: 01/27/18 20:59 Dose: 40 mg Benzocaine/Menthol (Cepacol Sore Throat) 1 grazyna PO Q2 PRN PRN Reason: Sore Throat Last Admin: 01/27/18 11:03 Dose: 1 grazyna Carvedilol (Coreg) 3.125 mg PO Q12 [facility] Last Admin: 01/27/18 20:56 Dose: 3.125 mg Clopidogrel Bisulfate (Plavix) 75 mg PO DAILY [facility] Last Admin: 01/27/18 11:04 Dose: 75 mg Dextrose (Dextrose 50% Inj) 0 ml IV STAT PRN; Protocol PRN Reason: Hypoglycemia Protocol Dextrose (Glutose 15) 0 gm PO ONCE PRN; Protocol PRN Reason: Hypoglycemia Protocol Docusate Sodium (Colace) 200 mg PO DAILY [facility] Last Admin: 01/27/18 11:04 Dose: 200 mg Enoxaparin Sodium (Lovenox) 30 mg SC DAILY [facility] PRN Reason: Protocol Last Admin: 01/27/18 11:11 Dose: 30 mg Fluoxetine HCl (Prozac) 20 mg PO DAILY [facility] Last Admin: 01/27/18 11:04 Dose: 20 mg Furosemide (Lasix) 20 mg PO BID [facility] Last Admin: 01/27/18 16:16 Dose: 20 mg Gabapentin (Neurontin) 100 mg PO BID [facility] Last Admin: 01/27/18 16:16 Dose: 100 mg Glucagon (Glucagen Diagnostic Kit) 0 mg IM STAT PRN; Protocol PRN Reason: Hypoglycemia Protocol Vancomycin HCl 1 gm/ Sodium (Chloride) 250 mls @ 166.667 mls/hr IVPB DAILY [facility] PRN Reason: Protocol Stop: 01/31/18 12:00 Insulin Detemir (Levemir) 12 units SC HS [facility] Last Admin: 01/27/18 22:58 Dose: 12 units Insulin Human Regular (Humulin R) 0 units SC ACHS [facility] PRN Reason: Protocol Last Admin: 01/27/18 22:51 Dose: Not Given Isosorbide Mononitrate (Imdur Er) 30 mg PO DAILY [facility] Last Admin: 01/27/18 11:07 Dose: 30 mg Lidocaine (Lidoderm) 2 ea TD DAILY [facility] Last Admin: 01/27/18 11:10 Dose: 2 ea Lisinopril (Zestril) 5 mg PO DAILY [facility] Last Admin: 01/27/18 11:06 Dose: 5 mg Lorazepam (Ativan) 0.5 mg PO BID PRN PRN Reason: Anxiety Last Admin: 01/27/18 17:44 Dose: 0.5 mg Morphine Sulfate (Morphine) 2 mg IVP Q4 PRN PRN Reason: Pain, moderate (4-7) Last Admin: 01/27/18 15:45 Dose: 2 mg Morphine Sulfate (Morphine) 4 mg IVP Q6 PRN PRN Reason: Pain, severe (8-10) Mupirocin (Bactroban Ointment) 1 applic TOP DAILY [facility] Last Admin: 01/27/18 11:12 Dose: Not Given Ondansetron HCl (Zofran Inj) 4 mg IVP Q4 PRN PRN Reason: Nausea/Vomiting Oxycodone HCl (Oxycontin Extended Release Tab) 20 mg PO Q12 [facility] Last Admin: 01/27/18 20:59 Dose: 20 mg - Labs Labs: 01/27/18 05:30 01/27/18 05:30 PT 11.9 Seconds (9.8-13.1) 01/24/18 04:20 INR 1.1 (0.9-1.2) 01/24/18 04:20 APTT 46.2 Seconds (25.6-37.1) H D 01/24/18 04:20 - Constitutional Appears: Well, No Acute Distress - Head Exam Head Exam: NORMAL INSPECTION - Eye Exam Eye Exam: EOMI, PERRL - Respiratory Exam Respiratory Exam: Clear to Ausculation Bilateral, NORMAL BREATHING PATTERN. absent: Rhonchi, Wheezes - Cardiovascular Exam Cardiovascular Exam: REGULAR RHYTHM, +S1, +S2. absent: Tachycardia - GI/Abdominal Exam GI & Abdominal Exam: Soft, Normal Bowel Sounds. absent: Distended, Tenderness - Extremities Exam Extremities Exam: absent: Calf Tenderness (RLE, DP/PT 2+) Additional comments: LLE dressing clean, intact. Knee immobilizer in place. - Neurological Exam Neurological Exam: Alert, Awake, Oriented x3 - Skin Skin Exam: Dry, Warm Assessment and Plan - Assessment and Plan (Free Text) Assessment: 67 yo F with PMHx of DM2, HTN, HLD, [place], CVA, chronic back pain, admitted with left lower extremity limb ischemia s/p angiography on 01/17 at [facility]. S /P BKA on 01/24 per surgery. ABX day 5. POD 4. Plan: 1- Limb Ischemia/thrombus - Vascular studies 01/15/18- severe limb ischemia - Angiogram 01/17 - revascularize unsuccessful 2/2 severe thrombus - Vascular surg Dr. Christian, on board. - Cardio Dr. Mcdaniel on board. - ID Dr. Palacios on board. - c/w Vanc 4/2 (day 5 to complete 7 days as per ID) - c/w Cefepine 4/ (day 6 to complete 7 days as per ID ) - Pain management with Oxycontin increased to 20 mg BID, Dr Skinner input appreciated. - WBC 13.8 - vanco trough 19.1 - PT eval recommds acute rehab 2- Coronary Artery Disease -c/w aspirin and plavix as per Cardio 3- Insulin Dependent Type 2 Diabetes - c/w Levemir 10U HS. - Hypoglycemia protocol and insulin coverage scale. - Accuchecks ACHS. - Diabetic diet. 4- Systolic CHF Last echo 05/22/17 showed EF of 20%. -Continue carvedilol 3.125 BID -Continue furosemide 20mg BID -Continue isosorbide mononitrate 30 mg -Lisinopril 5mg 5- Depression - Continue with Fluoxetine 6- HLD - Continue with Lipitor 40mg HS 7- DVT prophylaxis - Start Levonox 40mcg <Delia Matias - Last Filed: 01/29/18 09:42> Objective - Vital Signs/Intake and Output Vital Signs (last 24 hours): Temp Pulse Resp BP Pulse Ox 97.7 F 72 20 147/77 96 01/29/18 08:20 01/29/18 09:17 01/29/18 08:20 01/29/18 09:17 01/29/18 08:20 - Medications Medications: Current Medications Acetaminophen (Tylenol 325mg Tab) 650 mg PO Q6 PRN PRN Reason: Pain, Mild (1-3) Last Admin: 01/20/18 21:20 Dose: 650 mg Alprazolam (Xanax) 0.25 mg PO DAILY [facility] Stop: 02/04/18 09:01 Last Admin: 01/28/18 09:04 Dose: 0.25 mg Aspirin (Aspirin Chewable) 81 mg PO DAILY [facility] Last Admin: 01/29/18 09:16 Dose: 81 mg Atorvastatin Calcium (Lipitor) 40 mg PO HS [facility] Last Admin: 01/28/18 21:49 Dose: 40 mg Benzocaine/Menthol (Cepacol Sore Throat) 1 grazyna PO Q2 PRN PRN Reason: Sore Throat Last Admin: 01/27/18 11:03 Dose: 1 grazyna Carvedilol (Coreg) 3.125 mg PO Q12 [facility] Last Admin: 01/28/18 21:46 Dose: 3.125 mg Clopidogrel Bisulfate (Plavix) 75 mg PO DAILY [facility] Last Admin: 01/29/18 09:17 Dose: 75 mg Dextrose (Dextrose 50% Inj) 0 ml IV STAT PRN; Protocol PRN Reason: Hypoglycemia Protocol Dextrose (Glutose 15) 0 gm PO ONCE PRN; Protocol PRN Reason: Hypoglycemia Protocol Enoxaparin Sodium (Lovenox) 30 mg SC DAILY [facility] PRN Reason: Protocol Last Admin: 01/29/18 09:18 Dose: 30 mg Fluoxetine HCl (Prozac) 20 mg PO DAILY [facility] Last Admin: 01/29/18 09:17 Dose: 20 mg Furosemide (Lasix) 20 mg PO BID [facility] Last Admin: 01/29/18 09:16 Dose: 20 mg Gabapentin (Neurontin) 100 mg PO BID [facility] Last Admin: 01/29/18 09:15 Dose: 100 mg Glucagon (Glucagen Diagnostic Kit) 0 mg IM STAT PRN; Protocol PRN Reason: Hypoglycemia Protocol Vancomycin HCl 1 gm/ Sodium (Chloride) 250 mls @ 166.667 mls/hr IVPB DAILY [facility] PRN Reason: Protocol Stop: 01/31/18 12:00 Last Admin: 01/29/18 09:31 Dose: 166.667 mls/hr Cefepime HCl 1 gm/ Sodium (Chloride) 100 mls @ 100 mls/hr IVPB Q12 [facility] PRN Reason: Protocol Last Admin: 01/29/18 09:31 Dose: 100 mls/hr Insulin Detemir (Levemir) 15 units SC HS [facility] Last Admin: 01/28/18 22:01 Dose: 15 units Insulin Human Regular (Humulin R) 0 units SC ACHS [facility] PRN Reason: Protocol Last Admin: 01/29/18 08:30 Dose: 2 units Isosorbide Mononitrate (Imdur Er) 30 mg PO DAILY [facility] Last Admin: 01/29/18 09:16 Dose: 30 mg Lidocaine (Lidoderm) 2 ea TD DAILY [facility] Last Admin: 01/29/18 09:18 Dose: 2 ea Lisinopril (Zestril) 5 mg PO DAILY [facility] Last Admin: 01/29/18 09:17 Dose: 5 mg Lorazepam (Ativan) 0.5 mg PO BID PRN PRN Reason: Anxiety Last Admin: 01/28/18 15:39 Dose: 0.5 mg Morphine Sulfate (Morphine) 2 mg IVP Q4 PRN PRN Reason: Pain, moderate (4-7) Last Admin: 01/28/18 14:10 Dose: 2 mg Morphine Sulfate (Morphine) 4 mg IVP Q6 PRN PRN Reason: Pain, severe (8-10) Last Admin: 01/29/18 09:06 Dose: 4 mg Ondansetron HCl (Zofran Inj) 4 mg IVP Q4 PRN PRN Reason: Nausea/Vomiting Oxycodone HCl (Oxycontin Extended Release Tab) 20 mg PO Q12 [facility] Last Admin: 01/28/18 21:45 Dose: 20 mg Sennosides (Senokot Tab) 17.2 mg PO HS [facility] Last Admin: 01/28/18 22:03 Dose: 17.2 mg - Labs Labs: 01/29/18 05:05 01/29/18 05:05 PT 11.9 Seconds (9.8-13.1) 01/24/18 04:20 INR 1.1 (0.9-1.2) 01/24/18 04:20 APTT 46.2 Seconds (25.6-37.1) H D 01/24/18 04:20 Attending/Attestation - Attestation I have personally seen and examined this patient.: Yes I have fully participated in the care of the patient.: Yes I have reviewed all pertinent clinical information, including history, physical exam and plan: Yes Notes (Text): 01/29/18 09:42 ATTEDNING NOTE - ATTESTATION PATIENT SEEN AND EXAMINED. CASE DISCUSSED WITH RESIDENT. AGREE WITH FINDINGS AND PLAN
[2018-01-28] MEDS: oxyCODONE 20 mg ER Tab (oxyCONTIN) PO SCH ×2 (09:04→21:45)
[2018-01-28] MEDS: Lidocaine 5% Patch TD SCH (09:07)
[2018-01-28] MEDS: Enoxaparin 30 mg Syringe SC SCH (09:08)
[2018-01-28] MEDS: Insulin Regular 100 units/ml SC SCH ×4 (09:08→22:03)
[2018-01-28] MEDS: Cefepime 1 GM in Sodium Chloride 0.9% 100 ML IVPB SCH ×2 (12:43→21:41)
--- NOTE | 2018-01-28 13:23 | CP.PCM.PN ---
Subjective - Date & Time of Evaluation Date of Evaluation: 01/28/18 Time of Evaluation: 08:00 - Subjective Subjective: c/o pain no fever iv rx in progress Objective - Vital Signs/Intake and Output Vital Signs (last 24 hours): Temp Pulse Resp BP Pulse Ox 98.3 F 75 20 157/78 H 94 L 01/28/18 08:50 01/28/18 09:06 01/28/18 08:50 01/28/18 09:06 01/28/18 08:50 - Medications Medications: Current Medications Acetaminophen (Tylenol 325mg Tab) 650 mg PO Q6 PRN PRN Reason: Pain, Mild (1-3) Last Admin: 01/20/18 21:20 Dose: 650 mg Alprazolam (Xanax) 0.25 mg PO DAILY [facility] Stop: 02/04/18 09:01 Last Admin: 01/28/18 09:04 Dose: 0.25 mg Aspirin (Aspirin Chewable) 81 mg PO DAILY [facility] Last Admin: 01/28/18 09:04 Dose: 81 mg Atorvastatin Calcium (Lipitor) 40 mg PO HS [facility] Last Admin: 01/27/18 20:59 Dose: 40 mg Benzocaine/Menthol (Cepacol Sore Throat) 1 grazyna PO Q2 PRN PRN Reason: Sore Throat Last Admin: 01/27/18 11:03 Dose: 1 grazyna Carvedilol (Coreg) 3.125 mg PO Q12 [facility] Last Admin: 01/28/18 09:06 Dose: 3.125 mg Clopidogrel Bisulfate (Plavix) 75 mg PO DAILY [facility] Last Admin: 01/28/18 09:05 Dose: 75 mg Dextrose (Dextrose 50% Inj) 0 ml IV STAT PRN; Protocol PRN Reason: Hypoglycemia Protocol Dextrose (Glutose 15) 0 gm PO ONCE PRN; Protocol PRN Reason: Hypoglycemia Protocol Enoxaparin Sodium (Lovenox) 30 mg SC DAILY [facility] PRN Reason: Protocol Last Admin: 01/28/18 09:08 Dose: 30 mg Fluoxetine HCl (Prozac) 20 mg PO DAILY [facility] Last Admin: 01/28/18 09:06 Dose: 20 mg Furosemide (Lasix) 20 mg PO BID [facility] Last Admin: 01/28/18 09:06 Dose: 20 mg Gabapentin (Neurontin) 100 mg PO BID [facility] Last Admin: 01/28/18 09:05 Dose: 100 mg Glucagon (Glucagen Diagnostic Kit) 0 mg IM STAT PRN; Protocol PRN Reason: Hypoglycemia Protocol Vancomycin HCl 1 gm/ Sodium (Chloride) 250 mls @ 166.667 mls/hr IVPB DAILY [facility] PRN Reason: Protocol Stop: 01/31/18 12:00 Last Admin: 01/28/18 10:43 Dose: 166.667 mls/hr Cefepime HCl 1 gm/ Sodium (Chloride) 100 mls @ 100 mls/hr IVPB Q12 [facility] PRN Reason: Protocol Last Admin: 01/28/18 12:43 Dose: 100 mls/hr Insulin Detemir (Levemir) 15 units SC HS [facility] Insulin Human Regular (Humulin R) 0 units SC ACHS [facility] PRN Reason: Protocol Last Admin: 01/28/18 12:47 Dose: 2 units Isosorbide Mononitrate (Imdur Er) 30 mg PO DAILY [facility] Last Admin: 01/28/18 09:09 Dose: 30 mg Lidocaine (Lidoderm) 2 ea TD DAILY [facility] Last Admin: 01/28/18 09:07 Dose: 2 ea Lisinopril (Zestril) 5 mg PO DAILY [facility] Last Admin: 01/28/18 09:06 Dose: 5 mg Lorazepam (Ativan) 0.5 mg PO BID PRN PRN Reason: Anxiety Last Admin: 01/27/18 17:44 Dose: 0.5 mg Morphine Sulfate (Morphine) 2 mg IVP Q4 PRN PRN Reason: Pain, moderate (4-7) Last Admin: 01/27/18 15:45 Dose: 2 mg Morphine Sulfate (Morphine) 4 mg IVP Q6 PRN PRN Reason: Pain, severe (8-10) Ondansetron HCl (Zofran Inj) 4 mg IVP Q4 PRN PRN Reason: Nausea/Vomiting Oxycodone HCl (Oxycontin Extended Release Tab) 20 mg PO Q12 [facility] Last Admin: 01/28/18 09:04 Dose: 20 mg Sennosides (Senokot Tab) 17.2 mg PO HS [facility] - Labs Labs: 01/27/18 05:30 01/27/18 05:30 PT 11.9 Seconds (9.8-13.1) 01/24/18 04:20 INR 1.1 (0.9-1.2) 01/24/18 04:20 APTT 46.2 Seconds (25.6-37.1) H D 01/24/18 04:20 - Constitutional Appears: Non-toxic, Chronically Ill - Head Exam Head Exam: NORMOCEPHALIC - Eye Exam Eye Exam: absent: Scleral icterus - ENT Exam ENT Exam: Mucous Membranes Dry - Neck Exam Neck Exam: absent: Lymphadenopathy - Respiratory Exam Respiratory Exam: Decreased Breath Sounds - Cardiovascular Exam Cardiovascular Exam: REGULAR RHYTHM - GI/Abdominal Exam GI & Abdominal Exam: Distended - Rectal Exam Rectal Exam: Deferred Assessment and Plan (1) Gangrene Status: Acute (2) Acute kidney injury Status: Acute (3) CAD (coronary artery disease) Status: Acute (4) Cardiomyopathy, dilated Status: Acute (5) Diabetic foot ulcer Status: Acute (6) Hyperglycemia due to type 2 diabetes mellitus Status: Acute (7) Osteomyelitis Status: Acute
[2018-01-28] MEDS: Morphine 4 MG/ML VIAL IVP PRN ×2 (14:10→17:23)
[2018-01-28] MEDS: Insulin Detemir 100 Units/ml Inj SC SCH (22:01)
[2018-01-29 07:43] LABS: HEMOGLOBIN 12.6 g/dL (12.0-16.0); MEAN CELL VOLUME 88.2 fl (81.0-99.0); MEAN CORPUSCULAR HEMOGLOBIN 29.6 pg (27.0-31.0); MEAN CORPUSCULAR HGB CONC 33.6 g/dL (33.0-37.0); RBC 4.26 Mil/uL (3.80-5.20); RED CELL DISTRIBUTION WIDTH 13.7 % (11.5-14.5); WHITE BLOOD COUNT 12.6 K/uL (4.8-10.8)
[2018-01-29 07:47] LABS: CALCIUM 9.5 mg/dL (8.4-10.2)
--- NOTE | 2018-01-29 08:28 | CP.PCM.PN ---
<Wen Dallas - Last Filed: 01/29/18 13:09> Subjective - Date & Time of Evaluation Date of Evaluation: 01/29/18 Time of Evaluation: 08:27 - Subjective Subjective: POD # 5, S/P BKA LLE. Patient seen and examined this morning at bedside, found her crying due to pain in LLE, morphine 4mg IV given. Patient also report weakness in both hands since few days ago(receiving OT/PT). Still low appetite. Otherwise no fever, nausea, vomiting, chest or abdominal pain, palpitations. No urinary symptoms. SW on board, working on place TCU vs Acute rehab, most likely on Wednesday. Objective - Vital Signs/Intake and Output Vital Signs (last 24 hours): Temp Pulse Resp BP Pulse Ox 97.7 F 72 20 147/77 96 01/29/18 08:20 01/29/18 08:20 01/29/18 08:20 01/29/18 08:20 01/29/18 08:20 - Medications Medications: Current Medications Acetaminophen (Tylenol 325mg Tab) 650 mg PO Q6 PRN PRN Reason: Pain, Mild (1-3) Last Admin: 01/20/18 21:20 Dose: 650 mg Alprazolam (Xanax) 0.25 mg PO DAILY [facility] Stop: 02/04/18 09:01 Last Admin: 01/28/18 09:04 Dose: 0.25 mg Aspirin (Aspirin Chewable) 81 mg PO DAILY [facility] Last Admin: 01/28/18 09:04 Dose: 81 mg Atorvastatin Calcium (Lipitor) 40 mg PO HS [facility] Last Admin: 01/28/18 21:49 Dose: 40 mg Benzocaine/Menthol (Cepacol Sore Throat) 1 grazyna PO Q2 PRN PRN Reason: Sore Throat Last Admin: 01/27/18 11:03 Dose: 1 grazyna Carvedilol (Coreg) 3.125 mg PO Q12 [facility] Last Admin: 01/28/18 21:46 Dose: 3.125 mg Clopidogrel Bisulfate (Plavix) 75 mg PO DAILY [facility] Last Admin: 01/28/18 09:05 Dose: 75 mg Dextrose (Dextrose 50% Inj) 0 ml IV STAT PRN; Protocol PRN Reason: Hypoglycemia Protocol Dextrose (Glutose 15) 0 gm PO ONCE PRN; Protocol PRN Reason: Hypoglycemia Protocol Enoxaparin Sodium (Lovenox) 30 mg SC DAILY [facility] PRN Reason: Protocol Last Admin: 01/28/18 09:08 Dose: 30 mg Fluoxetine HCl (Prozac) 20 mg PO DAILY [facility] Last Admin: 01/28/18 09:06 Dose: 20 mg Furosemide (Lasix) 20 mg PO BID [facility] Last Admin: 01/28/18 17:28 Dose: 20 mg Gabapentin (Neurontin) 100 mg PO BID [facility] Last Admin: 01/28/18 17:28 Dose: 100 mg Glucagon (Glucagen Diagnostic Kit) 0 mg IM STAT PRN; Protocol PRN Reason: Hypoglycemia Protocol Vancomycin HCl 1 gm/ Sodium (Chloride) 250 mls @ 166.667 mls/hr IVPB DAILY [facility] PRN Reason: Protocol Stop: 01/31/18 12:00 Last Admin: 01/28/18 10:43 Dose: 166.667 mls/hr Cefepime HCl 1 gm/ Sodium (Chloride) 100 mls @ 100 mls/hr IVPB Q12 [facility] PRN Reason: Protocol Last Admin: 01/28/18 21:41 Dose: 100 mls/hr Insulin Detemir (Levemir) 15 units SC HS [facility] Last Admin: 01/28/18 22:01 Dose: 15 units Insulin Human Regular (Humulin R) 0 units SC ACHS [facility] PRN Reason: Protocol Last Admin: 01/28/18 22:03 Dose: 2 units Isosorbide Mononitrate (Imdur Er) 30 mg PO DAILY [facility] Last Admin: 01/28/18 09:09 Dose: 30 mg Lidocaine (Lidoderm) 2 ea TD DAILY [facility] Last Admin: 01/28/18 09:07 Dose: 2 ea Lisinopril (Zestril) 5 mg PO DAILY [facility] Last Admin: 01/28/18 09:06 Dose: 5 mg Lorazepam (Ativan) 0.5 mg PO BID PRN PRN Reason: Anxiety Last Admin: 01/28/18 15:39 Dose: 0.5 mg Morphine Sulfate (Morphine) 2 mg IVP Q4 PRN PRN Reason: Pain, moderate (4-7) Last Admin: 01/28/18 14:10 Dose: 2 mg Morphine Sulfate (Morphine) 4 mg IVP Q6 PRN PRN Reason: Pain, severe (8-10) Last Admin: 01/28/18 17:23 Dose: 4 mg Ondansetron HCl (Zofran Inj) 4 mg IVP Q4 PRN PRN Reason: Nausea/Vomiting Oxycodone HCl (Oxycontin Extended Release Tab) 20 mg PO Q12 [facility] Last Admin: 01/28/18 21:45 Dose: 20 mg Sennosides (Senokot Tab) 17.2 mg PO HS [facility] Last Admin: 01/28/18 22:03 Dose: 17.2 mg - Labs Labs: 01/29/18 05:05 01/29/18 05:05 PT 11.9 Seconds (9.8-13.1) 01/24/18 04:20 INR 1.1 (0.9-1.2) 01/24/18 04:20 APTT 46.2 Seconds (25.6-37.1) H D 01/24/18 04:20 - Constitutional Appears: In Acute Distress (due to pain) - Head Exam Head Exam: NORMAL INSPECTION - Eye Exam Eye Exam: EOMI, PERRL - Respiratory Exam Respiratory Exam: Clear to Ausculation Bilateral, NORMAL BREATHING PATTERN. absent: Rhonchi, Wheezes - Cardiovascular Exam Cardiovascular Exam: REGULAR RHYTHM, +S1, +S2. absent: Tachycardia - GI/Abdominal Exam GI & Abdominal Exam: Soft, Normal Bowel Sounds. absent: Distended, Tenderness - Extremities Exam Extremities Exam: absent: Calf Tenderness (RLE) Additional comments: LLE dressing clean, intact. Knee immobilizer in place. - Neurological Exam Neurological Exam: Alert, Awake, Oriented x3 - Skin Skin Exam: Dry, Warm Assessment and Plan - Assessment and Plan (Free Text) Assessment: 67 yo F with PMHx of DM2, HTN, HLD, NH, CVA, chronic back pain, admitted with left lower extremity limb ischemia s/p angiography on 01/17 at [facility]. S /P BKA on 01/24 per surgery. ABX day 6. POD 5. Plan: 1- Limb Ischemia/thrombus - Vascular studies 01/15/18- severe limb ischemia - Angiogram 01/17 - revascularize unsuccessful 2/2 severe thrombus - Vascular surg Dr. Christian, on board. - Cardio Dr. Mcdaniel on board. - ID Dr. Palacios on board. - c/w Vanc 01/24 (day 6 to complete 7 days as per ID) - c/w Cefepine 4/ (day 6 to complete 7 days as per ID ) - Pain management with Oxycontin increased to 20 mg BID, Dr Skinner input appreciated. - morphine 4 mg IV PRN - WBC 13.8 - vanco trough 19.1 - PT eval recommds acute rehab, pending for placement 2- Coronary Artery Disease -c/w aspirin and plavix as per Cardio 3- Insulin Dependent Type 2 Diabetes - c/w Levemir 10U HS. - Hypoglycemia protocol and insulin coverage scale. - Accuchecks ACHS. - Diabetic diet. 4- Systolic CHF Last echo 05/22/17 showed EF of 20%. -Continue carvedilol 3.125 BID -Continue furosemide 20mg BID -Continue isosorbide mononitrate 30 mg -Lisinopril 5mg 5- Depression - Continue with Fluoxetine 6- HLD - Continue with Lipitor 40mg HS 7- DVT prophylaxis - Start Levonox 40mcg <Delia Matias - Last Filed: 01/30/18 08:36> Objective - Vital Signs/Intake and Output Vital Signs (last 24 hours): Temp Pulse Resp BP Pulse Ox 98.8 F 80 20 127/70 99 01/30/18 00:31 01/30/18 00:31 01/30/18 00:31 01/30/18 00:31 01/30/18 00:31 Intake and Output: 01/30/18 01/30/18 06:59 18:59 Intake Total 150 Balance 150 - Medications Medications: Current Medications Acetaminophen (Tylenol 325mg Tab) 650 mg PO Q6 PRN PRN Reason: Pain, Mild (1-3) Last Admin: 01/30/18 01:53 Dose: 650 mg Alprazolam (Xanax) 0.25 mg PO DAILY [facility] Stop: 02/04/18 09:01 Last Admin: 01/29/18 09:44 Dose: 0.25 mg Aspirin (Aspirin Chewable) 81 mg PO DAILY [facility] Last Admin: 01/29/18 09:16 Dose: 81 mg Atorvastatin Calcium (Lipitor) 40 mg PO HS [facility] Last Admin: 01/29/18 22:23 Dose: 40 mg Benzocaine/Menthol (Cepacol Sore Throat) 1 grazyna PO Q2 PRN PRN Reason: Sore Throat Last Admin: 01/27/18 11:03 Dose: 1 grazyna Carvedilol (Coreg) 3.125 mg PO Q12 [facility] Clopidogrel Bisulfate (Plavix) 75 mg PO DAILY [facility] Last Admin: 01/29/18 09:17 Dose: 75 mg Dextrose (Dextrose 50% Inj) 0 ml IV STAT PRN; Protocol PRN Reason: Hypoglycemia Protocol Dextrose (Glutose 15) 0 gm PO ONCE PRN; Protocol PRN Reason: Hypoglycemia Protocol Enoxaparin Sodium (Lovenox) 30 mg SC DAILY [facility] PRN Reason: Protocol Last Admin: 01/29/18 09:18 Dose: 30 mg Fluoxetine HCl (Prozac) 20 mg PO DAILY [facility] Last Admin: 01/29/18 09:17 Dose: 20 mg Furosemide (Lasix) 20 mg PO BID [facility] Last Admin: 01/29/18 16:13 Dose: Not Given Gabapentin (Neurontin) 100 mg PO BID [facility] Last Admin: 01/29/18 16:10 Dose: 100 mg Glucagon (Glucagen Diagnostic Kit) 0 mg IM STAT PRN; Protocol PRN Reason: Hypoglycemia Protocol Vancomycin HCl 1 gm/ Sodium (Chloride) 250 mls @ 166.667 mls/hr IVPB DAILY [facility] PRN Reason: Protocol Stop: 01/31/18 12:00 Last Admin: 01/29/18 09:31 Dose: 166.667 mls/hr Cefepime HCl 1 gm/ Sodium (Chloride) 100 mls @ 100 mls/hr IVPB Q12 [facility] PRN Reason: Protocol Last Admin: 01/29/18 22:00 Dose: 100 mls/hr Insulin Detemir (Levemir) 15 units SC HS [facility] Last Admin: 01/29/18 22:21 Dose: 15 units Insulin Human Regular (Humulin R) 0 units SC ACHS [facility] PRN Reason: Protocol Last Admin: 01/29/18 22:23 Dose: 2 units Isosorbide Mononitrate (Imdur Er) 30 mg PO DAILY [facility] Last Admin: 01/29/18 09:16 Dose: 30 mg Lidocaine (Lidoderm) 2 ea TD DAILY [facility] Last Admin: 01/29/18 09:18 Dose: 2 ea Lisinopril (Zestril) 5 mg PO DAILY [facility] Last Admin: 01/29/18 09:17 Dose: 5 mg Lorazepam (Ativan) 0.5 mg PO BID PRN PRN Reason: Anxiety Last Admin: 01/28/18 15:39 Dose: 0.5 mg Morphine Sulfate (Morphine) 2 mg IVP Q4 PRN PRN Reason: Pain, moderate (4-7) Last Admin: 01/28/18 14:10 Dose: 2 mg Morphine Sulfate (Morphine) 4 mg IVP Q6 PRN PRN Reason: Pain, severe (8-10) Last Admin: 01/29/18 09:06 Dose: 4 mg Ondansetron HCl (Zofran Inj) 4 mg IVP Q4 PRN PRN Reason: Nausea/Vomiting Oxycodone HCl (Oxycontin Extended Release Tab) 20 mg PO Q12 [facility] Last Admin: 01/29/18 21:48 Dose: 20 mg Sennosides (Senokot Tab) 17.2 mg PO HS [facility] Last Admin: 01/29/18 22:23 Dose: 17.2 mg - Labs Labs: 01/29/18 05:05 01/29/18 05:05 PT 11.9 Seconds (9.8-13.1) 01/24/18 04:20 INR 1.1 (0.9-1.2) 01/24/18 04:20 APTT 46.2 Seconds (25.6-37.1) H D 01/24/18 04:20 Attending/Attestation - Attestation I have personally seen and examined this patient.: Yes I have fully participated in the care of the patient.: Yes I have reviewed all pertinent clinical information, including history, physical exam and plan: Yes Notes (Text): 01/30/18 08:36 ATTENDING NOTE ATTESTATION. PATIENT SEEN AND EXAMINED. CASE DISCUSSED WITH RESIDENT. AGREE WITH FINDINGS AND PLAN
[2018-01-29] MEDS: Insulin Regular 100 units/ml SC SCH ×4 (08:30→22:23)
[2018-01-29] MEDS: Morphine 4 MG/ML VIAL IVP PRN (09:06)
[2018-01-29] MEDS: Lidocaine 5% Patch TD SCH (09:18)
[2018-01-29] MEDS: Enoxaparin 30 mg Syringe SC SCH (09:18)
[2018-01-29] MEDS: Cefepime 1 GM in Sodium Chloride 0.9% 100 ML IVPB SCH ×2 (09:31→22:00)
[2018-01-29] MEDS: oxyCODONE 20 mg ER Tab (oxyCONTIN) PO SCH ×3 (09:47→21:48)
[2018-01-29] MEDS ORDERED: Magnesium Hydroxide Susp 30 ml UD PO ONE (10:12)
[2018-01-29] MEDS: Insulin Detemir 100 Units/ml Inj SC SCH (22:21)
[2018-01-30] MEDS: Morphine 4 MG/ML VIAL IVP PRN (08:56)
[2018-01-30] MEDS: Enoxaparin 30 mg Syringe SC SCH (09:02)
[2018-01-30] MEDS: Lidocaine 5% Patch TD SCH (09:03)
[2018-01-30] MEDS: oxyCODONE 20 mg ER Tab (oxyCONTIN) PO SCH ×2 (09:14→20:44)
[2018-01-30] MEDS: Insulin Regular 100 units/ml SC SCH ×4 (09:17→22:17)
--- NOTE | 2018-01-30 11:07 | CP.PCM.CON ---
History of Present Illness - History of Present Illness History of Present Illness: Psychiatry consult -Marketing Content Manager attempted to see the patient but she was lethargic and unable to engage in psychiatric interview. Would recommend to stop benzodiazepines at this time as they can cause oversedation when given with opiate pain medications. Will attempt to re-evaluate the patient tomorrow to assess for depression. Past Patient History - Infectious Disease Hx of Infectious Diseases: None - Tetanus Immunizations Tetanus Immunization: Unknown - Past Medical History & Family History Past Medical History?: Yes - Past Social History Smoking Status: Former Smoker - CARDIAC Hx Cardiac Disorders: Yes Hx Hypercholesterolemia: Yes Hx Hypertension: Yes - PULMONARY Hx Respiratory Disorders: No - NEUROLOGICAL HX Cerebrovascular Accident: Yes - HEENT Hx HEENT Problems: No - ENDOCRINE/METABOLIC Hx Diabetes Mellitus Type 2: Yes - HEMATOLOGICAL/ONCOLOGICAL Hx Blood Disorders: No - INTEGUMENTARY Hx Dermatological Problems: No - MUSCULOSKELETAL/RHEUMATOLOGICAL Hx Musculoskeletal Disorders: Yes Hx Falls: Yes (fell 6 months ago) Other/Comment: hx of chronic back pain - GASTROINTESTINAL Hx Gastrointestinal Disorders: No - GENITOURINARY/GYNECOLOGICAL Hx Genitourinary Disorders: No - PSYCHIATRIC Hx Psychophysiologic Disorder: No Hx Substance Use: No - SURGICAL HISTORY Hx Coronary Stent: Yes - ANESTHESIA Hx Malignant Hyperthermia: No Meds Allergies/Adverse Reactions: Allergies Allergy/AdvReac Type Severity Reaction Status Date / Time No Known Allergies Allergy Verified 05/14/16 14:21 - Medications Medications: Current Medications Acetaminophen (Tylenol 325mg Tab) 650 mg PO Q6 PRN PRN Reason: Pain, Mild (1-3) Last Admin: 01/30/18 01:53 Dose: 650 mg Alprazolam (Xanax) 0.25 mg PO DAILY [facility] Stop: 02/04/18 09:01 Last Admin: 01/30/18 09:14 Dose: 0.25 mg Aspirin (Aspirin Chewable) 81 mg PO DAILY [facility] Last Admin: 01/30/18 09:04 Dose: 81 mg Atorvastatin Calcium (Lipitor) 40 mg PO HS [facility] Last Admin: 01/29/18 22:23 Dose: 40 mg Benzocaine/Menthol (Cepacol Sore Throat) 1 grazyna PO Q2 PRN PRN Reason: Sore Throat Last Admin: 01/27/18 11:03 Dose: 1 grazyna Carvedilol (Coreg) 3.125 mg PO Q12 [facility] Last Admin: 01/30/18 09:39 Dose: 3.125 mg Clopidogrel Bisulfate (Plavix) 75 mg PO DAILY [facility] Last Admin: 01/30/18 09:03 Dose: 75 mg Dextrose (Dextrose 50% Inj) 0 ml IV STAT PRN; Protocol PRN Reason: Hypoglycemia Protocol Dextrose (Glutose 15) 0 gm PO ONCE PRN; Protocol PRN Reason: Hypoglycemia Protocol Furosemide (Lasix) 20 mg PO BID [facility] Last Admin: 01/30/18 09:05 Dose: 20 mg Gabapentin (Neurontin) 100 mg PO BID [facility] Last Admin: 01/30/18 09:04 Dose: 100 mg Glucagon (Glucagen Diagnostic Kit) 0 mg IM STAT PRN; Protocol PRN Reason: Hypoglycemia Protocol Cefepime HCl 1 gm/ Sodium (Chloride) 100 mls @ 100 mls/hr IVPB Q12 [facility] PRN Reason: Protocol Last Admin: 01/29/18 22:00 Dose: 100 mls/hr Insulin Detemir (Levemir) [address] [facility] Last Admin: 01/29/18 22:21 Dose: 15 units Insulin Human Regular (Humulin R) 0 units SC ACHS [facility] PRN Reason: Protocol Last Admin: 01/30/18 09:17 Dose: 2 units Lidocaine (Lidoderm) 2 ea TD DAILY [facility] Last Admin: 01/30/18 09:03 Dose: 2 ea Lorazepam (Ativan) 0.5 mg PO BID PRN PRN Reason: Anxiety Last Admin: 01/28/18 15:39 Dose: 0.5 mg Morphine Sulfate (Morphine) 2 mg IVP Q4 PRN PRN Reason: Pain, moderate (4-7) Last Admin: 01/28/18 14:10 Dose: 2 mg Morphine Sulfate (Morphine) 4 mg IVP Q6 PRN PRN Reason: Pain, severe (8-10) Last Admin: 01/30/18 08:56 Dose: 4 mg Ondansetron HCl (Zofran Inj) 4 mg IVP Q4 PRN PRN Reason: Nausea/Vomiting Oxycodone HCl (Oxycontin Extended Release Tab) 20 mg PO Q12 [facility] Last Admin: 01/30/18 09:14 Dose: 20 mg Sennosides (Senokot Tab) 17.[address] [facility] Last Admin: 01/29/18 22:23 Dose: 17.2 mg Results - Vital Signs Recent Vital Signs: Last Vital Signs Temp 98.2 F 01/30/18 08:40 Pulse 55 L 01/30/18 08:40 Resp 20 01/30/18 08:40 BP 120/77 01/30/18 09:39 Pulse Ox 97 01/30/18 08:40 - Labs Result Diagrams: 01/29/18 05:05 01/29/18 05:05 Labs: Laboratory Results - last 24 hr 01/29/18 01/29/18 01/29/18 11:50 15:42 22:16 POC Glucose (mg/dL) 309 H 268 H 157 H 01/30/18 05:30 POC Glucose (mg/dL) 171 H
[2018-01-30] MEDS: Cefepime 1 GM in Sodium Chloride 0.9% 100 ML IVPB SCH ×2 (12:14→20:49)
[2018-01-30] MEDS ORDERED: Magnesium Citrate Oral SOL (300 ml) PO ONE (13:00)
--- NOTE | 2018-01-30 13:12 | CP.PCM.PN ---
<DavonteTrueciaran - Last Filed: 01/30/18 13:10> Subjective - Date & Time of Evaluation Date of Evaluation: 01/30/18 Time of Evaluation: 13:10 - Subjective Subjective: no overnight events. tolerating PO. no BM since surgery. working with PT. LLE pain improved with pain meds, not well controlled. continues to have UE weakness. Objective - Vital Signs/Intake and Output Vital Signs (last 24 hours): Temp Pulse Resp BP Pulse Ox 98.2 F 55 L 20 120/77 97 01/30/18 08:40 01/30/18 08:40 01/30/18 08:40 01/30/18 09:39 01/30/18 08:40 Intake and Output: 01/30/18 01/30/18 06:59 18:59 Intake Total 150 Balance 150 - Medications Medications: Current Medications Acetaminophen (Tylenol 325mg Tab) 650 mg PO Q6 PRN PRN Reason: Pain, Mild (1-3) Last Admin: 01/30/18 01:53 Dose: 650 mg Alprazolam (Xanax) 0.25 mg PO DAILY [facility] Stop: 02/04/18 09:01 Last Admin: 01/30/18 09:14 Dose: 0.25 mg Aspirin (Aspirin Chewable) 81 mg PO DAILY [facility] Last Admin: 01/30/18 09:04 Dose: 81 mg Atorvastatin Calcium (Lipitor) 40 mg PO HS [facility] Last Admin: 01/29/18 22:23 Dose: 40 mg Benzocaine/Menthol (Cepacol Sore Throat) 1 grazyna PO Q2 PRN PRN Reason: Sore Throat Last Admin: 01/27/18 11:03 Dose: 1 grazyna Carvedilol (Coreg) 3.125 mg PO Q12 [facility] Last Admin: 01/30/18 09:39 Dose: 3.125 mg Clopidogrel Bisulfate (Plavix) 75 mg PO DAILY [facility] Last Admin: 01/30/18 09:03 Dose: 75 mg Dextrose (Dextrose 50% Inj) 0 ml IV STAT PRN; Protocol PRN Reason: Hypoglycemia Protocol Dextrose (Glutose 15) 0 gm PO ONCE PRN; Protocol PRN Reason: Hypoglycemia Protocol Furosemide (Lasix) 20 mg PO BID [facility] Last Admin: 01/30/18 09:05 Dose: 20 mg Gabapentin (Neurontin) 100 mg PO BID [facility] Last Admin: 01/30/18 09:04 Dose: 100 mg Glucagon (Glucagen Diagnostic Kit) 0 mg IM STAT PRN; Protocol PRN Reason: Hypoglycemia Protocol Cefepime HCl 1 gm/ Sodium (Chloride) 100 mls @ 100 mls/hr IVPB Q12 [facility] PRN Reason: Protocol Last Admin: 01/30/18 12:14 Dose: 100 mls/hr Insulin Detemir (Levemir) 15 units SC [facility] Last Admin: 01/29/18 22:21 Dose: 15 units Insulin Human Regular (Humulin R) 0 units SC ACHS [facility] PRN Reason: Protocol Last Admin: 01/30/18 12:12 Dose: 6 units Lidocaine (Lidoderm) 2 ea TD DAILY [facility] Last Admin: 01/30/18 09:03 Dose: 2 ea Lorazepam (Ativan) 0.5 mg PO BID PRN PRN Reason: Anxiety Last Admin: 01/28/18 15:39 Dose: 0.5 mg Morphine Sulfate (Morphine) 4 mg IVP Q6 PRN PRN Reason: Pain, severe (8-10) Last Admin: 01/30/18 08:56 Dose: 4 mg Ondansetron HCl (Zofran Inj) 4 mg IVP Q4 PRN PRN Reason: Nausea/Vomiting Oxycodone HCl (Oxycontin Extended Release Tab) 20 mg PO Q12 [facility] Last Admin: 01/30/18 09:14 Dose: 20 mg Sennosides (Senokot Tab) 17.2 mg PO [facility] Last Admin: 01/29/18 22:23 Dose: 17.2 mg - Labs Labs: 01/29/18 05:05 01/29/18 05:05 PT 11.9 Seconds (9.8-13.1) 01/24/18 04:20 INR 1.1 (0.9-1.2) 01/24/18 04:20 APTT 46.2 Seconds (25.6-37.1) H D 01/24/18 04:20 - Constitutional Appears: Well, Non-toxic - Head Exam Head Exam: ATRAUMATIC, NORMAL INSPECTION - Eye Exam Eye Exam: Normal appearance - ENT Exam ENT Exam: Mucous Membranes Moist - Neck Exam Neck Exam: Full ROM, Normal Inspection - Respiratory Exam Respiratory Exam: Clear to Ausculation Bilateral, NORMAL BREATHING PATTERN - Cardiovascular Exam Cardiovascular Exam: REGULAR RHYTHM - GI/Abdominal Exam GI & Abdominal Exam: Soft - Extremities Exam Additional comments: LLE jb wrap and brace intact. thigh skin color WNL, no erythema. 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 Consider acute rehab for placement Plan: L BKA - Vascular surg Dr. Christian, on board, appreciate recs - Cardio Dr. Mcdaniel on board, appreciate recs - ID Dr. Palacios on board, appreciate recs - c/w Vanc and Cefepine (last day today) - Pain management Dr Skinner input appreciated. - Oxycontin 20 mg BID, - morphine 4 mg IV PRN - PT/OT Coronary Artery Disease -c/w aspirin and plavix as per Cardio Insulin Dependent Type 2 Diabetes - c/w Levemir 12U HS. - Hypoglycemia protocol and insulin coverage scale. - Accuchecks ACHS. - Diabetic diet. reduced EF CHF Last echo 05/22/17 showed EF of 20%. -Continue carvedilol 3.125 BID -Continue furosemide 20mg BID -Continue isosorbide mononitrate 30 mg -Lisinopril 5mg Depression - Continue with Fluoxetine -Psych c/s, appreciate recs HLD - Continue with Lipitor 40mg HS DVT prophylaxis - Start Levonox 40mcg Dispo PT-acute rehab <Delia Matias - Last Filed: 01/31/18 06:53> Objective - Vital Signs/Intake and Output Vital Signs (last 24 hours): Temp Pulse Resp BP Pulse Ox 98.9 F 73 19 135/76 97 01/31/18 00:00 01/31/18 00:00 01/31/18 00:00 01/31/18 00:00 01/31/18 00:00 Intake and Output: 01/30/18 01/31/18 18:59 06:59 Intake Total 150 Balance 150 - Medications Medications: Current Medications Acetaminophen (Tylenol 325mg Tab) 650 mg PO Q6 PRN PRN Reason: Pain, Mild (1-3) Last Admin: 01/30/18 01:53 Dose: 650 mg Aspirin (Aspirin Chewable) 81 mg PO DAILY [facility] Last Admin: 01/30/18 09:04 Dose: 81 mg Atorvastatin Calcium (Lipitor) 40 mg PO HS [facility] Last Admin: 01/30/18 21:10 Dose: 40 mg Benzocaine/Menthol (Cepacol Sore Throat) 1 grazyna PO Q2 PRN PRN Reason: Sore Throat Last Admin: 01/27/18 11:03 Dose: 1 grazyna Carvedilol (Coreg) 3.125 mg PO Q12 [facility] Last Admin: 01/30/18 20:43 Dose: 3.125 mg Clopidogrel Bisulfate (Plavix) 75 mg PO DAILY [facility] Last Admin: 01/30/18 09:03 Dose: 75 mg Dextrose (Dextrose 50% Inj) 0 ml IV STAT PRN; Protocol PRN Reason: Hypoglycemia Protocol Dextrose (Glutose 15) 0 gm PO ONCE PRN; Protocol PRN Reason: Hypoglycemia Protocol Furosemide (Lasix) 20 mg PO BID [facility] Last Admin: 01/30/18 16:57 Dose: 20 mg Gabapentin (Neurontin) 100 mg PO BID [facility] Last Admin: 01/30/18 16:58 Dose: 100 mg Glucagon (Glucagen Diagnostic Kit) 0 mg IM STAT PRN; Protocol PRN Reason: Hypoglycemia Protocol Cefepime HCl 1 gm/ Sodium (Chloride) 100 mls @ 100 mls/hr IVPB Q12 [facility] PRN Reason: Protocol Last Admin: 01/30/18 20:49 Dose: 100 mls/hr Insulin Detemir (Levemir) 15 units SC HS [facility] Last Admin: 01/30/18 22:14 Dose: 15 units Insulin Human Regular (Humulin R) 0 units SC ACHS [facility] PRN Reason: Protocol Last Admin: 01/30/18 22:17 Dose: Not Given Lidocaine (Lidoderm) 2 ea TD DAILY [facility] Last Admin: 01/30/18 09:03 Dose: 2 ea Morphine Sulfate (Morphine) 4 mg IVP Q6 PRN PRN Reason: Pain, severe (8-10) Last Admin: 01/30/18 08:56 Dose: 4 mg Ondansetron HCl (Zofran Inj) 4 mg IVP Q4 PRN PRN Reason: Nausea/Vomiting Sennosides (Senokot Tab) 17.2 mg PO HS [facility] Last Admin: 01/30/18 21:10 Dose: 17.2 mg - Labs Labs: 01/31/18 06:15 01/29/18 05:05 PT 11.9 Seconds (9.8-13.1) 01/24/18 04:20 INR 1.1 (0.9-1.2) 01/24/18 04:20 APTT 46.2 Seconds (25.6-37.1) H D 01/24/18 04:20 Attending/Attestation - Attestation I have personally seen and examined this patient.: Yes I have fully participated in the care of the patient.: Yes I have reviewed all pertinent clinical information, including history, physical exam and plan: Yes Notes (Text): 01/31/18 06:52 ATTENDING NOTE ATTESTATION - PATIENT SEEN AND EXAMINED. CASE DISCUSSED WITH RESIDENT. AGREE WITH FINDINGS AND PLAN.,
[2018-01-30] MEDS: Insulin Detemir 100 Units/ml Inj SC SCH (22:14)
[2018-01-31 06:38] LABS: HEMOGLOBIN 11.7 g/dL (12.0-16.0); MEAN CELL VOLUME 87.1 fl (81.0-99.0); MEAN CORPUSCULAR HEMOGLOBIN 29.1 pg (27.0-31.0); MEAN CORPUSCULAR HGB CONC 33.4 g/dL (33.0-37.0); RBC 4.03 Mil/uL (3.80-5.20); WHITE BLOOD COUNT 13.7 K/uL (4.8-10.8)
[2018-01-31 07:02] LABS: CALCIUM 9.5 mg/dL (8.4-10.2)
[2018-01-31] MEDS: Insulin Regular 100 units/ml SC SCH ×4 (07:30→21:52)
--- NOTE | 2018-01-31 08:19 | CP.PCM.PN ---
Subjective - Date & Time of Evaluation Date of Evaluation: 01/31/18 Time of Evaluation: 08:17 - Subjective Subjective: SURGERY NOTE FOR DR. COLON 67F seen and examined at bedside. No acute events overnight. Complains of mild pain at site of operation. Objective - Vital Signs/Intake and Output Vital Signs (last 24 hours): Temp Pulse Resp BP Pulse Ox 98.9 F 73 19 135/76 97 01/31/18 00:00 01/31/18 00:00 01/31/18 00:00 01/31/18 00:00 01/31/18 00:00 Intake and Output: 01/31/18 01/31/18 06:59 18:59 Intake Total 150 Balance 150 - Medications Medications: Current Medications Acetaminophen (Tylenol 325mg Tab) 650 mg PO Q6 PRN PRN Reason: Pain, Mild (1-3) Last Admin: 01/30/18 01:53 Dose: 650 mg Aspirin (Aspirin Chewable) 81 mg PO DAILY [facility] Last Admin: 01/30/18 09:04 Dose: 81 mg Atorvastatin Calcium (Lipitor) 40 mg PO HS [facility] Last Admin: 01/30/18 21:10 Dose: 40 mg Benzocaine/Menthol (Cepacol Sore Throat) 1 grazyna PO Q2 PRN PRN Reason: Sore Throat Last Admin: 01/27/18 11:03 Dose: 1 grazyna Carvedilol (Coreg) 3.125 mg PO Q12 [facility] Last Admin: 01/30/18 20:43 Dose: 3.125 mg Clopidogrel Bisulfate (Plavix) 75 mg PO DAILY [facility] Last Admin: 01/30/18 09:03 Dose: 75 mg Dextrose (Dextrose 50% Inj) 0 ml IV STAT PRN; Protocol PRN Reason: Hypoglycemia Protocol Dextrose (Glutose 15) 0 gm PO ONCE PRN; Protocol PRN Reason: Hypoglycemia Protocol Furosemide (Lasix) 20 mg PO BID [facility] Last Admin: 01/30/18 16:57 Dose: 20 mg Gabapentin (Neurontin) 100 mg PO BID [facility] Last Admin: 01/30/18 16:58 Dose: 100 mg Glucagon (Glucagen Diagnostic Kit) 0 mg IM STAT PRN; Protocol PRN Reason: Hypoglycemia Protocol Cefepime HCl 1 gm/ Sodium (Chloride) 100 mls @ 100 mls/hr IVPB Q12 [facility] PRN Reason: Protocol Last Admin: 01/30/18 20:49 Dose: 100 mls/hr Insulin Detemir (Levemir) 15 units SC [facility] Last Admin: 01/30/18 22:14 Dose: 15 units Insulin Human Regular (Humulin R) 0 units SC [facility] PRN Reason: Protocol Last Admin: 01/30/18 22:17 Dose: Not Given Lidocaine (Lidoderm) 2 ea TD DAILY [facility] Last Admin: 01/30/18 09:03 Dose: 2 ea Morphine Sulfate (Morphine) 4 mg IVP Q6 PRN PRN Reason: Pain, severe (8-10) Last Admin: 01/30/18 08:56 Dose: 4 mg Ondansetron HCl (Zofran Inj) 4 mg IVP Q4 PRN PRN Reason: Nausea/Vomiting Oxycodone HCl (Oxycontin Extended Release Tab) 20 mg PO Q12 [facility] Sennosides (Senokot Tab) 17.2 mg PO [facility] Last Admin: 01/30/18 21:10 Dose: 17.2 mg - Labs Labs: 01/31/18 06:15 01/31/18 06:15 PT 11.9 Seconds (9.8-13.1) 01/24/18 04:20 INR 1.1 (0.9-1.2) 01/24/18 04:20 APTT 46.2 Seconds (25.6-37.1) H D 01/24/18 04:20 - Constitutional Appears: Well, Non-toxic, No Acute Distress - Respiratory Exam Respiratory Exam: Clear to Ausculation Bilateral, NORMAL BREATHING PATTERN - Cardiovascular Exam Cardiovascular Exam: REGULAR RHYTHM, +S1, +S2 - GI/Abdominal Exam GI & Abdominal Exam: Soft. absent: Distended, Firm, Guarding, Rigid, Tenderness , Rebound - Extremities Exam Additional comments: left BKA incision CDI sutures in place - Neurological Exam Neurological Exam: Alert, Awake - Psychiatric Exam Psychiatric exam: Normal Affect, Normal Mood Assessment and Plan - Assessment and Plan (Free Text) Assessment: 67F s/p left BKA POD#7 Plan: -Continue physical therapy -Pain control Further recs discuss with Dr. Gino Hill, PGY2
[2018-01-31] MEDS: Lidocaine 5% Patch TD SCH (08:32)
[2018-01-31] MEDS ORDERED: oxyCODONE 20 mg ER Tab (oxyCONTIN) PO SCH (09:00)
[2018-01-31] MEDS: Morphine 4 MG/ML VIAL IVP PRN (09:08)
--- NOTE | 2018-01-31 09:27 | CP.PCM.PN ---
Subjective - Date & Time of Evaluation Date of Evaluation: 01/31/18 Time of Evaluation: 07:05 - Subjective Subjective: Patient seen and examined this morning, no overnight events. tolerating PO. no BM since surgery. LLE pain poor controlled with pain meds. Continues to have UE weakness. Working with PT/OT. Afebrile, no chills, N/V chest pain, abdominal pain, or sob. Objective - Vital Signs/Intake and Output Vital Signs (last 24 hours): Temp Pulse Resp BP Pulse Ox 98.1 F 74 20 138/78 97 01/31/18 08:17 01/31/18 08:17 01/31/18 08:17 01/31/18 08:33 01/31/18 08:17 Intake and Output: 01/31/18 01/31/18 06:59 18:59 Intake Total 150 Balance 150 - Medications Medications: Current Medications Acetaminophen (Tylenol 325mg Tab) 650 mg PO Q6 PRN PRN Reason: Pain, Mild (1-3) Last Admin: 01/30/18 01:53 Dose: 650 mg Aspirin (Aspirin Chewable) 81 mg PO DAILY [facility] Last Admin: 01/31/18 08:33 Dose: 81 mg Atorvastatin Calcium (Lipitor) 40 mg PO HS [facility] Last Admin: 01/30/18 21:10 Dose: 40 mg Benzocaine/Menthol (Cepacol Sore Throat) 1 grazyna PO Q2 PRN PRN Reason: Sore Throat Last Admin: 01/27/18 11:03 Dose: 1 grazyna Carvedilol (Coreg) 3.125 mg PO Q12 [facility] Last Admin: 01/30/18 20:43 Dose: 3.125 mg Clopidogrel Bisulfate (Plavix) 75 mg PO DAILY [facility] Last Admin: 01/31/18 08:33 Dose: 75 mg Dextrose (Dextrose 50% Inj) 0 ml IV STAT PRN; Protocol PRN Reason: Hypoglycemia Protocol Dextrose (Glutose 15) 0 gm PO ONCE PRN; Protocol PRN Reason: Hypoglycemia Protocol Furosemide (Lasix) 20 mg PO BID [facility] Last Admin: 01/31/18 08:33 Dose: 20 mg Gabapentin (Neurontin) 100 mg PO BID [facility] Last Admin: 01/31/18 08:33 Dose: 100 mg Glucagon (Glucagen Diagnostic Kit) 0 mg IM STAT PRN; Protocol PRN Reason: Hypoglycemia Protocol Cefepime HCl 1 gm/ Sodium (Chloride) 100 mls @ 100 mls/hr IVPB Q12 [facility] PRN Reason: Protocol Last Admin: 01/30/18 20:49 Dose: 100 mls/hr Insulin Detemir (Levemir) 15 units SC [facility] Last Admin: 01/30/18 22:14 Dose: 15 units Insulin Human Regular (Humulin R) 0 units SC [facility] PRN Reason: Protocol Last Admin: 01/31/18 07:30 Dose: Not Given Lidocaine (Lidoderm) 2 ea TD DAILY [facility] Last Admin: 01/31/18 08:32 Dose: 2 ea Morphine Sulfate (Morphine) 4 mg IVP Q6 PRN PRN Reason: Pain, severe (8-10) Last Admin: 01/31/18 09:08 Dose: 4 mg Ondansetron HCl (Zofran Inj) 4 mg IVP Q4 PRN PRN Reason: Nausea/Vomiting Oxycodone HCl (Oxycontin Extended Release Tab) 20 mg PO Q12 [facility] Last Admin: 01/31/18 08:22 Dose: 20 mg Sennosides (Senokot Tab) 17.2 mg PO [facility] Last Admin: 01/30/18 21:10 Dose: 17.2 mg - Labs Labs: 01/31/18 06:15 01/31/18 06:15 PT 11.9 Seconds (9.8-13.1) 01/24/18 04:20 INR 1.1 (0.9-1.2) 01/24/18 04:20 APTT 46.2 Seconds (25.6-37.1) H D 01/24/18 04:20 - Constitutional Appears: In Acute Distress (due to LLE pain) - Head Exam Head Exam: NORMAL INSPECTION - Eye Exam Eye Exam: EOMI, PERRL - Respiratory Exam Respiratory Exam: Clear to Ausculation Bilateral, NORMAL BREATHING PATTERN. absent: Chest Wall Tenderness, Rhonchi, Wheezes - Cardiovascular Exam Cardiovascular Exam: REGULAR RHYTHM, +S1, +S2. absent: Tachycardia, Murmur - GI/Abdominal Exam GI & Abdominal Exam: Soft, Normal Bowel Sounds. absent: Distended, Tenderness - Extremities Exam Extremities Exam: absent: Calf Tenderness (RLE) Additional comments: LLE wound clean, dry and intact, sutures in place, no erythema, exudates or dehiscence noted. Very tender to touch. - Neurological Exam Neurological Exam: Alert, Awake, Oriented x3 - Psychiatric Exam Psychiatric exam: Depressed - Skin Skin Exam: Dry, Warm Assessment and Plan - Assessment and Plan (Free Text) Assessment: Assessment: 67yo F with PMHx DM2, HTN, HLD, [place], CVA, chronic back pain admitted with left lower extremity limb ischemia s/p L BKA on 01/24/18 Plan: abx x1 week after surgery, POD #7 today, will have surgery eval pt as pain not well controlled, pain management eval if no other input from surgery. Consider acute rehab for placement Plan: 1- L BKA - Vascular surg Dr. Christian, on board, appreciate recs - Cardio Dr. Mcdaniel on board, appreciate recs - ID Dr. Palacios on board, appreciate recs - Vanc and Cefepime (7 days course completed) - Pain management Dr Skinner input appreciated. - Oxycontin 20 mg BID, - morphine 4 mg IV PRN - PT/OT 2- Coronary Artery Disease -c/w aspirin and plavix as per Cardio 3- Insulin Dependent Type 2 Diabetes - c/w Levemir 12U HS. - Hypoglycemia protocol and insulin coverage scale. - Accuchecks ACHS. - Diabetic diet. 4- reduced EF CHF Last echo 05/22/17 showed EF of 20%. -Continue carvedilol 3.125 BID -Continue furosemide 20mg BID -Continue isosorbide mononitrate 30 mg -Lisinopril 5mg 5- Depression - Continue with Fluoxetine - Psych c/s, appreciate recs - Do not recommend starting any psychotropic medications at this time. 6- HLD - Continue with Lipitor 40mg HS 7- DVT prophylaxis - Levonox 40mcg 8- Dispo PT-acute rehab 9- Lines - PICC 01/20/18 (day 12)
--- NOTE | 2018-01-31 10:08 | CP.PCM.CON ---
History of Present Illness - History of Present Illness History of Present Illness: Psychiatry consult Patient is a poor historian due to altered mental status, history was obtained from the chart. HPI: 67 yo female presented w/ left foot ulcers and necrosis s/p L BKA. Patient is A + O x 1, she thinks she is in a home and is unable to state that date or the year. She could not answer who the president is. She answered all questions w/ "yes" but could not follow-up with any detailed answers therefore insurance underwriter was not able to accurately assess mood symptoms. PMH: DM2, HTN, HLD, [place], CVA, chronic back pain, hemorrhagic stroke, osteomyelitis PSH: left foot surgery: partial resection of distal left 1st metatarsal, partial resection of base of proximal phalanx, excision of left tibial sesamoid and debridement of ulcers FH: [place] - mother SH: former smoker-1/2 ppd for 25 years, no ETOH, no illicit drug use MSE: A + O x self only, poor eye contact, speech soft, unable to assess mood because the patient just answers "yes" to every questions, but can not give further explanation. Poor I/J. Impression: 67 yo female s/p L BKA, currently w/ AMS due to medical issues; unable to assess for acute psychiatric issues at this time. Recommend continued treatment of medical issues. Do not recommend starting any psychotropic medications at this time. Past Patient History - Infectious Disease Hx of Infectious Diseases: None - Tetanus Immunizations Tetanus Immunization: Unknown - Past Medical History & Family History Past Medical History?: Yes - Past Social History Smoking Status: Former Smoker - CARDIAC Hx Cardiac Disorders: Yes Hx Hypercholesterolemia: Yes Hx Hypertension: Yes - PULMONARY Hx Respiratory Disorders: No - NEUROLOGICAL HX Cerebrovascular Accident: Yes - HEENT Hx HEENT Problems: No - ENDOCRINE/METABOLIC Hx Diabetes Mellitus Type 2: Yes - HEMATOLOGICAL/ONCOLOGICAL Hx Blood Disorders: No - INTEGUMENTARY Hx Dermatological Problems: No - MUSCULOSKELETAL/RHEUMATOLOGICAL Hx Musculoskeletal Disorders: Yes Hx Falls: Yes (fell 6 months ago) Other/Comment: hx of chronic back pain - GASTROINTESTINAL Hx Gastrointestinal Disorders: No - GENITOURINARY/GYNECOLOGICAL Hx Genitourinary Disorders: No - PSYCHIATRIC Hx Psychophysiologic Disorder: No Hx Substance Use: No - SURGICAL HISTORY Hx Coronary Stent: Yes - ANESTHESIA Hx Malignant Hyperthermia: No Meds Allergies/Adverse Reactions: Allergies Allergy/AdvReac Type Severity Reaction Status Date / Time No Known Allergies Allergy Verified 05/14/16 14:21 - Medications Medications: Current Medications Acetaminophen (Tylenol 325mg Tab) 650 mg PO Q6 PRN PRN Reason: Pain, Mild (1-3) Last Admin: 01/30/18 01:53 Dose: 650 mg Aspirin (Aspirin Chewable) 81 mg PO DAILY [facility] Last Admin: 01/31/18 08:33 Dose: 81 mg Atorvastatin Calcium (Lipitor) 40 mg PO HS [facility] Last Admin: 01/30/18 21:10 Dose: 40 mg Benzocaine/Menthol (Cepacol Sore Throat) 1 grazyna PO Q2 PRN PRN Reason: Sore Throat Last Admin: 01/27/18 11:03 Dose: 1 grazyna Carvedilol (Coreg) 3.125 mg PO Q12 [facility] Last Admin: 01/30/18 20:43 Dose: 3.125 mg Clopidogrel Bisulfate (Plavix) 75 mg PO DAILY [facility] Last Admin: 01/31/18 08:33 Dose: 75 mg Dextrose (Dextrose 50% Inj) 0 ml IV STAT PRN; Protocol PRN Reason: Hypoglycemia Protocol Dextrose (Glutose 15) 0 gm PO ONCE PRN; Protocol PRN Reason: Hypoglycemia Protocol Furosemide (Lasix) 20 mg PO BID [facility] Last Admin: 01/31/18 08:33 Dose: 20 mg Gabapentin (Neurontin) 100 mg PO BID [facility] Last Admin: 01/31/18 08:33 Dose: 100 mg Glucagon (Glucagen Diagnostic Kit) 0 mg IM STAT PRN; Protocol PRN Reason: Hypoglycemia Protocol Cefepime HCl 1 gm/ Sodium (Chloride) 100 mls @ 100 mls/hr IVPB Q12 [facility] PRN Reason: Protocol Last Admin: 01/30/18 20:49 Dose: 100 mls/hr Insulin Detemir (Levemir) 15 units SC HS [facility] Last Admin: 01/30/18 22:14 Dose: 15 units Insulin Human Regular (Humulin R) 0 units SC ACHS [facility] PRN Reason: Protocol Last Admin: 01/31/18 07:30 Dose: Not Given Lidocaine (Lidoderm) 2 ea TD DAILY [facility] Last Admin: 01/31/18 08:32 Dose: 2 ea Morphine Sulfate (Morphine) 4 mg IVP Q6 PRN PRN Reason: Pain, severe (8-10) Last Admin: 01/31/18 09:08 Dose: 4 mg Morphine Sulfate (Morphine Immediate Release Tab) 30 mg PO Q4 PRN PRN Reason: Pain, moderate (4-7) Ondansetron HCl (Zofran Inj) 4 mg IVP Q4 PRN PRN Reason: Nausea/Vomiting Oxycodone HCl (Oxycontin Extended Release Tab) 20 mg PO Q12 [facility] Last Admin: 01/31/18 08:22 Dose: 20 mg Sennosides (Senokot Tab) 17.2 mg PO HS [facility] Last Admin: 01/30/18 21:10 Dose: 17.2 mg Results - Vital Signs Recent Vital Signs: Last Vital Signs Temp 98.1 F 01/31/18 08:17 Pulse 74 01/31/18 08:17 Resp 20 01/31/18 08:17 BP 138/78 01/31/18 08:33 Pulse Ox 97 01/31/18 08:17 - Labs Result Diagrams: 01/31/18 06:15 01/31/18 06:15 Labs: Laboratory Results - last 24 hr 01/30/18 01/30/18 01/30/18 10:58 16:23 21:21 WBC RBC Hgb Hct MCV MCH MCHC RDW Plt Count Sodium Potassium Chloride Carbon Dioxide Anion Gap BUN Creatinine Est GFR ( Amer) Est GFR (Non-Af Amer) POC Glucose (mg/dL) 303 H 166 H 101 Random Glucose Calcium 01/31/18 01/31/18 01/31/18 05:20 06:15 06:15 WBC 13.7 H RBC 4.03 Hgb 11.7 L Hct 35.1 MCV 87.1 MCH 29.1 MCHC 33.4 RDW 14.0 Plt Count 258 Sodium 137 Potassium 3.9 Chloride 100 Carbon Dioxide 25 Anion Gap 16 BUN 48 H Creatinine 2.1 H Est GFR ( Amer) 29 Est GFR (Non-Af Amer) 24 POC Glucose (mg/dL) 85 Random Glucose 77 Calcium 9.5
[2018-01-31] MEDS: oxyCODONE 10 mg ER Tab (oxyCONTIN) PO SCH ×2 (12:45→21:03)
[2018-01-31] MEDS: Insulin Detemir 100 Units/ml Inj SC SCH (21:56)
[2018-02-01] MEDS: Morphine 30 mg Immediate Release Tab PO PRN ×2 (00:30→18:03)
[2018-02-01] MEDS ORDERED: Morphine 5 MG/ML SYRINGE IVP PRN (03:00)
[2018-02-01 06:24] LABS: BASO # 0.1 K/uL (0.0-0.2); BASO % 0.5 % (0.0-2.0); EOS # 0.2 K/uL (0.0-0.7); EOS % 1.2 % (0.0-4.0); HEMOGLOBIN 11.6 g/dL (12.0-16.0); LYMPH # 1.4 K/uL (1.0-4.3); LYMPH % 9.8 % (20.0-40.0); MEAN CELL VOLUME 87.2 fl (81.0-99.0); MEAN CORPUSCULAR HGB CONC 33.3 g/dL (33.0-37.0); MEAN PLATELET VOLUME 10.4 fl (7.2-11.7); MONO % 7.4 % (0.0-10.0); NEUT # 11.4 K/uL (1.8-7.0); NEUT % 81.1 % (50.0-75.0); PLATELET COUNT 257 K/uL (130-400); RBC 4.01 Mil/uL (3.80-5.20); RED CELL DISTRIBUTION WIDTH 13.6 % (11.5-14.5); WHITE BLOOD COUNT 14.1 K/uL (4.8-10.8)
[2018-02-01 06:36] LABS: ALB/GLOB RATIO 0.8 (1.0-2.1); CALCIUM 9.3 mg/dL (8.4-10.2)
--- NOTE | 2018-02-01 08:18 | CP.PCM.PN ---
Subjective - Date & Time of Evaluation Date of Evaluation: 02/01/18 Time of Evaluation: 08:18 - Subjective Subjective: Patient seen and examined this morning, no overnight events. Looks lethargic but easy arousable, states low appetite, tolerating PO. c/w LLE pain. Continues to have UE weakness. Working with PT/OT. Afebrile, no chills, N/V chest pain, abdominal pain, or sob. Had a BM yesterday. No urinary symptoms. Objective - Vital Signs/Intake and Output Vital Signs (last 24 hours): Temp Pulse Resp BP Pulse Ox 98.8 F 76 20 152/70 H 96 01/31/18 16:22 01/31/18 21:00 01/31/18 16:22 01/31/18 21:00 01/31/18 16:22 - Medications Medications: Current Medications Acetaminophen (Tylenol 325mg Tab) 650 mg PO Q6 PRN PRN Reason: Pain, Mild (1-3) Last Admin: 01/30/18 01:53 Dose: 650 mg Aspirin (Aspirin Chewable) 81 mg PO DAILY [facility] Last Admin: 01/31/18 08:33 Dose: 81 mg Atorvastatin Calcium (Lipitor) 40 mg PO HS [facility] Last Admin: 01/31/18 21:54 Dose: 40 mg Benzocaine/Menthol (Cepacol Sore Throat) 1 grazyna PO Q2 PRN PRN Reason: Sore Throat Last Admin: 01/27/18 11:03 Dose: 1 grazyna Carvedilol (Coreg) 3.125 mg PO Q12 [facility] Last Admin: 01/31/18 21:00 Dose: 3.125 mg Clopidogrel Bisulfate (Plavix) 75 mg PO DAILY [facility] Last Admin: 01/31/18 08:33 Dose: 75 mg Dextrose (Dextrose 50% Inj) 0 ml IV STAT PRN; Protocol PRN Reason: Hypoglycemia Protocol Dextrose (Glutose 15) 0 gm PO ONCE PRN; Protocol PRN Reason: Hypoglycemia Protocol Furosemide (Lasix) 20 mg PO BID [facility] Last Admin: 01/31/18 17:28 Dose: 20 mg Glucagon (Glucagen Diagnostic Kit) 0 mg IM STAT PRN; Protocol PRN Reason: Hypoglycemia Protocol Cefepime HCl 1 gm/ Sodium (Chloride) 100 mls @ 100 mls/hr IVPB Q12 [facility] PRN Reason: Protocol Last Admin: 01/30/18 20:49 Dose: 100 mls/hr Insulin Detemir (Levemir) 15 units SC [facility] Last Admin: 01/31/18 21:56 Dose: 15 units Insulin Human Regular (Humulin R) 0 units SC ACHS [facility] PRN Reason: Protocol Last Admin: 01/31/18 21:52 Dose: Not Given Lidocaine (Lidoderm) 2 ea TD DAILY [facility] Last Admin: 01/31/18 08:32 Dose: 2 ea Morphine Sulfate (Morphine Immediate Release Tab) 30 mg PO Q4 PRN PRN Reason: Pain, moderate (4-7) Last Admin: 02/01/18 00:30 Dose: 30 mg Morphine Sulfate (Morphine) 4 mg IVP Q6 PRN PRN Reason: Pain, severe (8-10) Last Admin: 02/01/18 04:28 Dose: 4 mg Ondansetron HCl (Zofran Inj) 4 mg IVP Q4 PRN PRN Reason: Nausea/Vomiting Oxycodone HCl (Oxycontin Extended Release Tab) 10 mg PO Q12 [facility] Last Admin: 01/31/18 21:03 Dose: 10 mg Sennosides (Senokot Tab) 17.2 mg PO [facility] Last Admin: 01/31/18 21:54 Dose: 17.2 mg - Labs Labs: 02/01/18 05:50 02/01/18 05:50 PT 11.9 Seconds (9.8-13.1) 01/24/18 04:20 INR 1.1 (0.9-1.2) 01/24/18 04:20 APTT 46.2 Seconds (25.6-37.1) H D 01/24/18 04:20 - Constitutional Appears: Confused - Head Exam Head Exam: NORMAL INSPECTION - Eye Exam Eye Exam: EOMI, PERRL - Respiratory Exam Respiratory Exam: Clear to Ausculation Bilateral, NORMAL BREATHING PATTERN. absent: Rales, Wheezes - Cardiovascular Exam Cardiovascular Exam: REGULAR RHYTHM, +S1, +S2. absent: Tachycardia - GI/Abdominal Exam GI & Abdominal Exam: Soft, Normal Bowel Sounds. absent: Distended, Tenderness - Extremities Exam Extremities Exam: absent: Calf Tenderness Additional comments: LLE wound clean, dry and intact, sutures in place, no erythema, exudates or dehiscence noted. Tender to palpation. - Neurological Exam Neurological Exam: Alert, Awake Neuro motor strength exam: Left Upper Extremity: 4, Right Upper Extremity: 4, Right Lower Extremity: 4 Additional comments: AAO x3 Sensation intact. - Psychiatric Exam Psychiatric exam: Depressed - Skin Skin Exam: Dry, Warm Assessment and Plan - Assessment and Plan (Free Text) Assessment: 67yo F with PMHx DM2, HTN, HLD, [place], CVA, chronic back pain admitted with left lower extremity limb ischemia s/p L BKA on 01/24/18 Plan: abx x1 week completed, POD #8 today, will have surgery eval pt as pain not well controlled, pain management eval if no other input from surgery. Consider acute rehab for placement Plan: 1- L BKA - Vascular surg Dr. Christian, on board, appreciate recs - Cardio Dr. Mcdaniel on board, appreciate recs - ID Dr. Palacios on board, appreciate recs - Pain management Dr Skinner input appreciated. - Oxycontin 10 mg BID, decreased from 20 mg - morphine 30 mg PO PRN - PT/OT 2- Coronary Artery Disease - Cardio Dr. Mcdaniel on board, appreciate recs - c/w aspirin and plavix as per Cardio 3- Insulin Dependent Type 2 Diabetes - c/w Levemir 12U HS. - Hypoglycemia protocol and insulin coverage scale. - Accuchecks ACHS. - Diabetic diet. 4- reduced EF CHF Last echo 05/22/17 showed EF of 20%. -Continue carvedilol 3.125 BID -Continue furosemide 20mg BID -Continue isosorbide mononitrate 30 mg -Lisinopril 5mg 5- Depression - Continue with Fluoxetine - Psych c/s, appreciate recs - Do not recommend starting any psychotropic medications at this time. 6- HLD - Continue with Lipitor 40mg HS 7- DVT prophylaxis - Levonox 40mcg 8- Dispo PT-acute rehab 9- Lines - PICC 01/20/18 (day 12)
[2018-02-01 08:39] LABS: BASOPHIL 1 % (0-2); EOSINOPHIL 2 % (0-7); LYMPHOCYTE 11 % (20-50); MONOCYTE 5 % (0-10); NEUTROPHIL 81 % (42-75); PLATELET ESTIMATE NORMAL (NORMAL); TOTAL CELLS COUNTED 100
[2018-02-01] MEDS: oxyCODONE 10 mg ER Tab (oxyCONTIN) PO SCH ×2 (08:41→21:54)
[2018-02-01] MEDS: Insulin Regular 100 units/ml SC SCH ×4 (08:44→21:53)
[2018-02-01] MEDS: Lidocaine 5% Patch TD SCH (08:45)
--- NOTE | 2018-02-01 11:33 | RAD ---
HISTORY: Wheezing, shortness of breath COMPARISON: 01/27/2018. FINDINGS: LUNGS: Persistent left lower lobe infiltrate accentuated by portable technique, poor inspiratory effort. PLEURA: No significant pleural effusion identified, no pneumothorax apparent. CARDIOVASCULAR: Normal. OSSEOUS STRUCTURES: No significant abnormalities. VISUALIZED UPPER ABDOMEN: Normal. OTHER FINDINGS: None. IMPRESSION: Left lower lobe infiltrate/atelectasis similar to that seen previously, accentuated by poor inspiratory effort.
--- NOTE | 2018-02-01 12:11 | CARD ---
APPROVED REPORT EKG Measurement Heart [id number] <Conclusion> Normal sinus rhythm Inferoposterior as well as lateral wall infarct, age undetermined Abnormal ECG
[2018-02-01] MEDS: Insulin Detemir 100 Units/ml Inj SC SCH (22:07)
--- NOTE | 2018-02-02 08:03 | CP.PCM.PN ---
Subjective - Date & Time of Evaluation Date of Evaluation: 02/02/18 Time of Evaluation: 07:00 - Subjective Subjective: Patient seen and examined this morning, no overnight events. Less lethargic but still somnolent, easy arousable, c/w low appetite but tolerating well PO. Denies R leg pain this morning. Continues to have UE weakness. Working with PT/ OT. Afebrile, no chills, N/V chest pain, abdominal pain, or sob. Normal BM yesterday. No urinary symptoms. Neurontin discontinued. EKG and CXR from unchanged. Objective - Vital Signs/Intake and Output Vital Signs (last 24 hours): Temp Pulse Resp BP Pulse Ox 99 F 72 20 127/68 94 L 02/02/18 07:49 02/02/18 07:49 02/02/18 07:49 02/02/18 07:49 02/02/18 07:49 - Medications Medications: Current Medications Acetaminophen (Tylenol 325mg Tab) 650 mg PO Q6 PRN PRN Reason: Pain, Mild (1-3) Last Admin: 01/30/18 01:53 Dose: 650 mg Aspirin (Aspirin Chewable) 81 mg PO DAILY [facility] Last Admin: 02/01/18 08:44 Dose: 81 mg Atorvastatin Calcium (Lipitor) 40 mg PO HS [facility] Last Admin: 02/01/18 21:38 Dose: 40 mg Benzocaine/Menthol (Cepacol Sore Throat) 1 grazyna PO Q2 PRN PRN Reason: Sore Throat Last Admin: 01/27/18 11:03 Dose: 1 grazyna Carvedilol (Coreg) 3.125 mg PO Q12 [facility] Last Admin: 02/01/18 21:40 Dose: 3.125 mg Clopidogrel Bisulfate (Plavix) 75 mg PO DAILY [facility] Last Admin: 02/01/18 08:46 Dose: 75 mg Dextrose (Dextrose 50% Inj) 0 ml IV STAT PRN; Protocol PRN Reason: Hypoglycemia Protocol Dextrose (Glutose 15) 0 gm PO ONCE PRN; Protocol PRN Reason: Hypoglycemia Protocol Furosemide (Lasix) 20 mg IVP DAILY [facility] Glucagon (Glucagen Diagnostic Kit) 0 mg IM STAT PRN; Protocol PRN Reason: Hypoglycemia Protocol Cefepime HCl 1 gm/ Sodium (Chloride) 100 mls @ 100 mls/hr IVPB Q12 [facility] PRN Reason: Protocol Last Admin: 01/30/18 20:49 Dose: 100 mls/hr Insulin Detemir (Levemir) [address] [facility] Last Admin: 02/01/18 22:07 Dose: 15 units Insulin Human Regular (Humulin R) 0 units SC [facility] PRN Reason: Protocol Last Admin: 02/01/18 21:53 Dose: Not Given Lidocaine (Lidoderm) 2 ea TD DAILY [facility] Last Admin: 02/01/18 08:45 Dose: 2 ea Mirtazapine (Remeron) 7.[address] [facility] Last Admin: 02/01/18 21:39 Dose: 7.5 mg Morphine Sulfate (Morphine Immediate Release Tab) 30 mg PO Q4 PRN PRN Reason: Pain, moderate (4-7) Last Admin: 02/01/18 18:03 Dose: 30 mg Morphine Sulfate (Morphine) 4 mg IVP Q6 PRN PRN Reason: Pain, severe (8-10) Last Admin: 02/01/18 04:28 Dose: 4 mg Ondansetron HCl (Zofran Inj) 4 mg IVP Q4 PRN PRN Reason: Nausea/Vomiting Oxycodone HCl (Oxycontin Extended Release Tab) 10 mg PO Q12 [facility] Last Admin: 02/01/18 21:54 Dose: Not Given Sennosides (Senokot Tab) 17.[address] [facility] Last Admin: 02/01/18 21:39 Dose: 17.2 mg - Labs Labs: 02/01/18 05:50 02/01/18 05:50 PT 11.9 Seconds (9.8-13.1) 01/24/18 04:20 INR 1.1 (0.9-1.2) 01/24/18 04:20 APTT 46.2 Seconds (25.6-37.1) H D 01/24/18 04:20 - Constitutional Appears: No Acute Distress, Other (Somnolent) - Head Exam Head Exam: NORMAL INSPECTION - Eye Exam Eye Exam: EOMI, PERRL - ENT Exam ENT Exam: Mucous Membranes Moist - Respiratory Exam Respiratory Exam: Clear to Ausculation Bilateral, NORMAL BREATHING PATTERN. absent: Rhonchi, Wheezes - Cardiovascular Exam Cardiovascular Exam: REGULAR RHYTHM, +S1, +S2. absent: Tachycardia - GI/Abdominal Exam GI & Abdominal Exam: Soft, Normal Bowel Sounds. absent: Distended, Tenderness - Extremities Exam Additional comments: LLE wound clean, dry and intact, sutures in place, no erythema, exudates or dehiscence noted. Tender to palpation. - Neurological Exam Neurological Exam: Oriented x3 - Skin Skin Exam: Dry, Warm Assessment and Plan - Assessment and Plan (Free Text) Assessment: 67yo F with PMHx DM2, HTN, HLD, [place], CVA, chronic back pain admitted with left lower extremity limb ischemia s/p L BKA on 01/24/18 Plan: abx x1 week completed, POD #9 today, will have surgery eval pt as pain not well controlled, pain management eval if no other input from surgery. Consider acute rehab for placement Plan: 1- L BKA - Vascular surg Dr. Christian, on board, appreciate recs - Cardio Dr. Mcdaniel on board, appreciate recs - ID Dr. Palacios on board, appreciate recs - Pain management Dr Skinner input appreciated. - Oxycontin 10 mg BID. - morphine 30 mg PO PRN - PT/OT 2- Coronary Artery Disease - Cardio Dr. Mcdaniel on board, appreciate recs - c/w aspirin and plavix as per Cardio 3- Insulin Dependent Type 2 Diabetes - c/w Levemir 12U HS. - Hypoglycemia protocol and insulin coverage scale. - Accuchecks ACHS. - Diabetic diet. 4- reduced EF CHF - Echo 05/22/17: showed EF of 20%. -Continue carvedilol 3.125 BID -Continue furosemide 20mg BID -Continue isosorbide mononitrate 30 mg -continue Lisinopril 5mg 5- Depression - Psych c/s, appreciate recs - Do not recommend starting any psychotropic medications at this time. 6- HLD - Continue with Lipitor 40mg HS 7- DVT prophylaxis - Levonox 40mcg 8- Dispo PT-acute rehab 9- Lines - PICC 01/20/18 (day 12)
[2018-02-02] MEDS: Insulin Regular 100 units/ml SC SCH ×4 (08:21→22:09)
[2018-02-02] MEDS: Lidocaine 5% Patch TD SCH (08:25)
[2018-02-02] MEDS: oxyCODONE 10 mg ER Tab (oxyCONTIN) PO SCH ×2 (08:27→21:07)
--- NOTE | 2018-02-02 15:43 | CT ---
PROCEDURE: CT HEAD WITHOUT CONTRAST. HISTORY: Altered mental status. COMPARISON: 05/31/2017 TECHNIQUE: Axial computed tomography images were obtained through the head/brain without intravenous contrast. Radiation dose: Total exam DLP = 1086 mGy-cm. This CT exam was performed using one or more of the following dose reduction techniques: Automated exposure control, adjustment of the mA and/or kV according to patient size, and/or use of iterative reconstruction technique. FINDINGS: HEMORRHAGE: No intracranial hemorrhage. BRAIN: No mass effect or edema. There is generalized cerebral atrophy. The bifrontal periventricular hypodensities are compatible with stable Chronic microvascular ischemic changes. Similarly a faint old right thalamic lacune is similar-appearing VENTRICLES: The relative prominence of the ventricles is commensurate with the degree of atrophy. No change here perceived CALVARIUM: Unremarkable. PARANASAL SINUSES: Unremarkable as visualized. No significant inflammatory changes. MASTOID AIR CELLS: Unremarkable as visualized. No inflammatory changes. OTHER FINDINGS: Supraclinoid internal carotid arterial vascular calcifications-similar IMPRESSION: No interval pathology noted. No hemorrhage or mass effect noted. No midline shift or extra-axial collections. No significant appearing sinusitis. Chronic changes as above. If further more sensitive evaluation is needed, consider MRI
[2018-02-02] MEDS: Insulin Detemir 100 Units/ml Inj SC SCH (22:36)
[2018-02-03] MEDS: Insulin Regular 100 units/ml SC SCH ×4 (06:33→22:30)
[2018-02-03 09:02] LABS: SQUAMOUS EPITHIAL < 1 /hpf (0-5); URINE BACTERIA RARE (<OCC); URINE BILIRUBIN NEGATIVE (NEGATIVE); URINE BLOOD LARGE (NEGATIVE); URINE CLARITY SLIGHTY-CLOUDY (Clear); URINE COLOR YELLOW (YELLOW); URINE GLUCOSE (UA) 50 mg/dL (Normal); URINE LEUKOCYTE ESTERASE NEG Leu/uL (Negative); URINE PROTEIN 100 mg/dL (NEGATIVE); URINE UROBILINOGEN 0.2-1.0 mg/dL (0.2-1.0)
[2018-02-03] MEDS: oxyCODONE 10 mg ER Tab (oxyCONTIN) PO SCH ×2 (09:16→21:34)
[2018-02-03] MEDS: Lidocaine 5% Patch TD SCH (09:26)
--- NOTE | 2018-02-03 11:03 | CP.PCM.PN ---
Subjective - Date & Time of Evaluation Date of Evaluation: 02/03/18 Time of Evaluation: 07:02 - Subjective Subjective: Patient seen and examined this morning, no overnight events. More cooperative today with exam, speaking in full sentences, still c/w low appetite but tolerating well PO. Denies R leg pain this morning. Less UE weakness appreciated this morning. Working with PT/OT. Afebrile, no chills, N/V chest pain, abdominal pain, or sob. No urinary symptoms. Remeron and Zolof started yesterday. Head CT no bleed or masses. Global atrophy noted. Objective - Vital Signs/Intake and Output Vital Signs (last 24 hours): Temp Pulse Resp BP Pulse Ox 97.6 F 79 19 110/74 96 02/03/18 08:25 02/03/18 09:12 02/03/18 08:25 02/03/18 09:12 02/03/18 08:25 - Medications Medications: Current Medications Acetaminophen (Tylenol 325mg Tab) 650 mg PO Q6 PRN PRN Reason: Pain, Mild (1-3) Last Admin: 01/30/18 01:53 Dose: 650 mg Aspirin (Aspirin Chewable) 81 mg PO DAILY [facility] Last Admin: 02/03/18 09:11 Dose: 81 mg Atorvastatin Calcium (Lipitor) 40 mg PO HS [facility] Last Admin: 02/02/18 22:36 Dose: 40 mg Benzocaine/Menthol (Cepacol Sore Throat) 1 grazyna PO Q2 PRN PRN Reason: Sore Throat Last Admin: 01/27/18 11:03 Dose: 1 grazyna Carvedilol (Coreg) 3.125 mg PO Q12 [facility] Last Admin: 02/03/18 09:12 Dose: 3.125 mg Clopidogrel Bisulfate (Plavix) 75 mg PO DAILY [facility] Last Admin: 02/03/18 09:12 Dose: 75 mg Dextrose (Dextrose 50% Inj) 0 ml IV STAT PRN; Protocol PRN Reason: Hypoglycemia Protocol Dextrose (Glutose 15) 0 gm PO ONCE PRN; Protocol PRN Reason: Hypoglycemia Protocol Furosemide (Lasix) 20 mg IVP DAILY [facility] Last Admin: 02/03/18 09:12 Dose: 20 mg Glucagon (Glucagen Diagnostic Kit) 0 mg IM STAT PRN; Protocol PRN Reason: Hypoglycemia Protocol Cefepime HCl 1 gm/ Sodium (Chloride) 100 mls @ 100 mls/hr IVPB Q12 [facility] PRN Reason: Protocol Last Admin: 01/30/18 20:49 Dose: 100 mls/hr Insulin Detemir (Levemir) 15 units SC [facility] Last Admin: 02/02/18 22:36 Dose: 15 units Insulin Human Regular (Humulin R) 0 units SC ACHS [facility] PRN Reason: Protocol Last Admin: 02/03/18 06:33 Dose: 2 units Lidocaine (Lidoderm) 2 ea TD DAILY [facility] Last Admin: 02/03/18 09:26 Dose: 2 ea Mirtazapine (Remeron) 30 mg PO [facility] Last Admin: 02/02/18 22:38 Dose: 30 mg Morphine Sulfate (Morphine Immediate Release Tab) 30 mg PO Q4 PRN PRN Reason: Pain, moderate (4-7) Last Admin: 02/01/18 18:03 Dose: 30 mg Ondansetron HCl (Zofran Inj) 4 mg IVP Q4 PRN PRN Reason: Nausea/Vomiting Oxycodone HCl (Oxycontin Extended Release Tab) 10 mg PO Q12 [facility] Last Admin: 02/03/18 09:16 Dose: 10 mg Sennosides (Senokot Tab) 17.2 mg PO [facility] Last Admin: 02/02/18 22:37 Dose: 17.2 mg Sertraline HCl (Zoloft) 25 mg PO [facility] Last Admin: 02/02/18 22:37 Dose: 25 mg - Labs Labs: 02/01/18 05:50 02/01/18 05:50 PT 11.9 Seconds (9.8-13.1) 01/24/18 04:20 INR 1.1 (0.9-1.2) 01/24/18 04:20 APTT 46.2 Seconds (25.6-37.1) H D 01/24/18 04:20 - Constitutional Appears: No Acute Distress - Head Exam Head Exam: NORMAL INSPECTION - Eye Exam Eye Exam: EOMI, PERRL - Respiratory Exam Respiratory Exam: Clear to Ausculation Bilateral, NORMAL BREATHING PATTERN. absent: Chest Wall Tenderness, Wheezes - Cardiovascular Exam Cardiovascular Exam: REGULAR RHYTHM, +S1, +S2 - GI/Abdominal Exam GI & Abdominal Exam: Soft, Normal Bowel Sounds. absent: Tenderness - Extremities Exam Additional comments: LLE wound clean, dry and intact, sutures in place, no erythema, exudates or dehiscence noted. Tender to palpation on Knee area. - Neurological Exam Neurological Exam: Awake Additional comments: Oriented to person only. - Psychiatric Exam Psychiatric exam: Depressed - Skin Skin Exam: Dry, Warm Assessment and Plan - Assessment and Plan (Free Text) Assessment: 67yo F with PMHx DM2, HTN, HLD, [place], CVA, chronic back pain admitted with left lower extremity limb ischemia s/p L BKA on 01/24/18 Plan: abx x1 week completed, POD #10 today, pain management eval if no other input from surgery. Consider acute rehab for placement. Plan: 1- L BKA - Vascular surg Dr. Christian, on board, appreciate recs - Oxycontin 10 mg BID. - morphine 30 mg PO PRN - PT/OT 2- Coronary Artery Disease - Cardio Dr. Mcdaniel on board, appreciate recs - c/w aspirin and plavix 3- Insulin Dependent Type 2 Diabetes - c/w Levemir 12U HS. - Hypoglycemia protocol and insulin coverage scale. - Accuchecks ACHS. - Diabetic diet. 4- reduced EF CHF - Echo 05/22/17: showed EF of 20%. -Continue carvedilol 3.125 BID -Continue furosemide 20mg BID -Continue isosorbide mononitrate 30 mg -continue Lisinopril 5mg 5- Depression - Sertraline 50mg daily. - Psych c/s, appreciate recs 6- HLD - Continue with Lipitor 40mg HS 7- DVT prophylaxis - Levonox 40mcg 8- Dispo - PT-acute rehab 9- Lines - PICC 01/20/18 (day 12)
[2018-02-03] MEDS: Sodium Chloride 0.9% 1,000 ML IV SCH (15:53)
[2018-02-03] MEDS: Morphine 30 mg Immediate Release Tab PO PRN (17:28)
[2018-02-03] MEDS: Insulin Detemir 100 Units/ml Inj SC SCH (22:38)
[2018-02-04] MEDS: Insulin Regular 100 units/ml SC SCH ×4 (07:09→23:06)
[2018-02-04 07:37] LABS: BASO # 0.1 K/uL (0.0-0.2); BASO % 0.6 % (0.0-2.0); EOS # 0.1 K/uL (0.0-0.7); LYMPH # 1.5 K/uL (1.0-4.3); LYMPH % 10.1 % (20.0-40.0); MEAN CELL VOLUME 87.7 fl (81.0-99.0); MEAN CORPUSCULAR HEMOGLOBIN 29.4 pg (27.0-31.0); MEAN CORPUSCULAR HGB CONC 33.5 g/dL (33.0-37.0); MEAN PLATELET VOLUME 10.5 fl (7.2-11.7); MONO # 1.2 K/uL (0.0-0.8); MONO % 8.1 % (0.0-10.0); NEUT % 80.2 % (50.0-75.0); RBC 4.1 Mil/uL (3.80-5.20); RED CELL DISTRIBUTION WIDTH 13.8 % (11.5-14.5); WHITE BLOOD COUNT 14.9 K/uL (4.8-10.8)
[2018-02-04 07:44] LABS: ALB/GLOB RATIO 0.8 (1.0-2.1); ALBUMIN 3.2 g/dL (3.5-5.0); CALCIUM 9.5 mg/dL (8.4-10.2)
--- NOTE | 2018-02-04 08:46 | CP.PCM.PN ---
Subjective - Date & Time of Evaluation Date of Evaluation: 02/04/18 Time of Evaluation: 07:00 - Subjective Subjective: Patient seen and examined this morning, no overnight events. Denies R leg pain this morning. More active this morning during exam. Less UE weakness appreciated. No PT/OT yesterday. Afebrile, no chills, N/V chest pain, abdominal pain, or sob. No urinary symptoms. Objective - Vital Signs/Intake and Output Vital Signs (last 24 hours): Temp Pulse Resp BP Pulse Ox 97.6 F 71 19 135/69 98 02/04/18 00:00 02/04/18 00:00 02/04/18 00:00 02/04/18 00:00 02/04/18 00:00 Intake and Output: 02/04/18 02/04/18 06:59 18:59 Intake Total 300 Balance 300 - Medications Medications: Current Medications Acetaminophen (Tylenol 325mg Tab) 650 mg PO Q6 PRN PRN Reason: Pain, Mild (1-3) Last Admin: 01/30/18 01:53 Dose: 650 mg Aspirin (Aspirin Chewable) 81 mg PO DAILY [facility] Last Admin: 02/03/18 09:11 Dose: 81 mg Atorvastatin Calcium (Lipitor) 40 mg PO HS [facility] Last Admin: 02/03/18 21:26 Dose: 40 mg Benzocaine/Menthol (Cepacol Sore Throat) 1 grazyna PO Q2 PRN PRN Reason: Sore Throat Last Admin: 01/27/18 11:03 Dose: 1 grazyna Carvedilol (Coreg) 3.125 mg PO Q12 [facility] Last Admin: 02/03/18 21:25 Dose: 3.125 mg Clopidogrel Bisulfate (Plavix) 75 mg PO DAILY [facility] Last Admin: 02/03/18 09:12 Dose: 75 mg Dextrose (Dextrose 50% Inj) 0 ml IV STAT PRN; Protocol PRN Reason: Hypoglycemia Protocol Dextrose (Glutose 15) 0 gm PO ONCE PRN; Protocol PRN Reason: Hypoglycemia Protocol Glucagon (Glucagen Diagnostic Kit) 0 mg IM STAT PRN; Protocol PRN Reason: Hypoglycemia Protocol Sodium Chloride (Sodium Chloride 0.9%) 1,000 mls @ 50 mls/hr IV .Q20H [facility] Stop: 02/04/18 14:35 Last Admin: 02/03/18 15:53 Dose: 50 mls/hr Insulin Detemir (Levemir) 15 units SC [facility] Last Admin: 02/03/18 22:38 Dose: 15 units Insulin Human Regular (Humulin R) 0 units SC [facility] PRN Reason: Protocol Last Admin: 02/04/18 07:09 Dose: Not Given Lidocaine (Lidoderm) 2 ea TD DAILY [facility] Last Admin: 02/03/18 09:26 Dose: 2 ea Mirtazapine (Remeron) 30 mg PO [facility] Last Admin: 02/03/18 22:39 Dose: 30 mg Morphine Sulfate (Morphine Immediate Release Tab) 30 mg PO Q4 PRN PRN Reason: Pain, moderate (4-7) Last Admin: 02/03/18 17:28 Dose: 30 mg Ondansetron HCl (Zofran Inj) 4 mg IVP Q4 PRN PRN Reason: Nausea/Vomiting Oxycodone HCl (Oxycontin Extended Release Tab) 10 mg PO Q12 [facility] Last Admin: 02/03/18 21:34 Dose: 10 mg Sennosides (Senokot Tab) 17.2 mg PO [facility] Last Admin: 02/03/18 22:39 Dose: 17.2 mg Sertraline HCl (Zoloft) 25 mg PO [facility] Last Admin: 02/03/18 21:26 Dose: 25 mg - Labs Labs: 02/04/18 06:30 02/04/18 06:30 PT 11.9 Seconds (9.8-13.1) 01/24/18 04:20 INR 1.1 (0.9-1.2) 01/24/18 04:20 APTT 46.2 Seconds (25.6-37.1) H D 01/24/18 04:20 - Constitutional Appears: No Acute Distress - Head Exam Head Exam: NORMAL INSPECTION - Eye Exam Eye Exam: EOMI, PERRL - Respiratory Exam Respiratory Exam: Clear to Ausculation Bilateral, Rhonchi, Wheezes, NORMAL BREATHING PATTERN - Cardiovascular Exam Cardiovascular Exam: REGULAR RHYTHM, +S1, +S2. absent: Tachycardia - GI/Abdominal Exam GI & Abdominal Exam: Soft, Normal Bowel Sounds. absent: Distended, Tenderness - Extremities Exam Extremities Exam: absent: Calf Tenderness Additional comments: Mild erythema note on upper aspect of L stump. Incision clean, intact, no exudates or dehiscence noted. - Neurological Exam Neurological Exam: Awake - Skin Additional comments: 2x2 DTI noted on sacrum with tendence to break centrally. Assessment and Plan - Assessment and Plan (Free Text) Assessment: 67yo F with PMHx DM2, HTN, HLD, [place], CVA, chronic back pain admitted with left lower extremity limb ischemia s/p L BKA on 01/24/18 Plan: abx x1 week completed, POD #11 today, pain management eval if no other input from surgery. Recommended acute rehab. Plan: 1- L BKA - Vascular surg Dr. Christian, on board - Oxycontin 10 mg BID. - morphine 30 mg PO PRN - PT/OT 2- Coronary Artery Disease - Cardio Dr. Mcdaniel on board, appreciate recs - c/w aspirin and plavix 3- Insulin Dependent Type 2 Diabetes - c/w Levemir 12U HS. - Hypoglycemia protocol and insulin coverage scale. - Accuchecks ACHS. - Diabetic diet. 4- reduced EF CHF - Echo 05/22/17: showed EF of 20%. -Continue carvedilol 3.125 BID -Continue furosemide 20mg BID -Continue isosorbide mononitrate 30 mg -continue Lisinopril 5mg 5- Depression - Sertraline 50mg daily. - Psych c/s, appreciate recs 6- HLD - Continue with Lipitor 40mg HS 7- DTI, sacrum - wound care evaluation - wound care daily 8- DVT prophylaxis - Levonox 40mcg 9- Dispo - PT-acute rehab 10- Lines - PICC 01/20/18 (day 12)
[2018-02-04] MEDS: Lidocaine 5% Patch TD SCH (09:22)
[2018-02-04] MEDS: oxyCODONE 10 mg ER Tab (oxyCONTIN) PO SCH ×2 (09:32→21:22)
--- NOTE | 2018-02-04 11:56 | CP.PCM.PN ---
Subjective - Date & Time of Evaluation Date of Evaluation: 02/04/18 Time of Evaluation: 07:00 - Subjective Subjective: leukocytosis noted remains afeb no cough Objective - Vital Signs/Intake and Output Vital Signs (last 24 hours): Temp Pulse Resp BP Pulse Ox 97.6 F 71 19 135/69 98 02/04/18 00:00 02/04/18 09:22 02/04/18 00:00 02/04/18 09:22 02/04/18 00:00 Intake and Output: 02/04/18 02/04/18 06:59 18:59 Intake Total 300 Balance 300 - Medications Medications: Current Medications Acetaminophen (Tylenol 325mg Tab) 650 mg PO Q6 PRN PRN Reason: Pain, Mild (1-3) Last Admin: 01/30/18 01:53 Dose: 650 mg Aspirin (Aspirin Chewable) 81 mg PO DAILY [facility] Last Admin: 02/04/18 09:21 Dose: 81 mg Atorvastatin Calcium (Lipitor) 40 mg PO HS [facility] Last Admin: 02/03/18 21:26 Dose: 40 mg Benzocaine/Menthol (Cepacol Sore Throat) 1 grazyna PO Q2 PRN PRN Reason: Sore Throat Last Admin: 01/27/18 11:03 Dose: 1 grazyna Carvedilol (Coreg) 3.125 mg PO Q12 [facility] Last Admin: 02/04/18 09:22 Dose: 3.125 mg Clopidogrel Bisulfate (Plavix) 75 mg PO DAILY [facility] Last Admin: 02/04/18 09:23 Dose: 75 mg Dextrose (Dextrose 50% Inj) 0 ml IV STAT PRN; Protocol PRN Reason: Hypoglycemia Protocol Dextrose (Glutose 15) 0 gm PO ONCE PRN; Protocol PRN Reason: Hypoglycemia Protocol Glucagon (Glucagen Diagnostic Kit) 0 mg IM STAT PRN; Protocol PRN Reason: Hypoglycemia Protocol Sodium Chloride (Sodium Chloride 0.9%) 1,000 mls @ 50 mls/hr IV .Q20H [facility] Stop: 02/04/18 14:35 Last Admin: 02/03/18 15:53 Dose: 50 mls/hr Insulin Detemir (Levemir) 15 units SC [facility] Last Admin: 02/03/18 22:38 Dose: 15 units Insulin Human Regular (Humulin R) 0 units SC ACHS [facility] PRN Reason: Protocol Last Admin: 02/04/18 07:09 Dose: Not Given Lidocaine (Lidoderm) 2 ea TD DAILY [facility] Last Admin: 02/04/18 09:22 Dose: 2 ea Mirtazapine (Remeron) 30 mg PO [facility] Last Admin: 02/03/18 22:39 Dose: 30 mg Morphine Sulfate (Morphine Immediate Release Tab) 30 mg PO Q4 PRN PRN Reason: Pain, moderate (4-7) Last Admin: 02/03/18 17:28 Dose: 30 mg Ondansetron HCl (Zofran Inj) 4 mg IVP Q4 PRN PRN Reason: Nausea/Vomiting Oxycodone HCl (Oxycontin Extended Release Tab) 10 mg PO Q12 [facility] Last Admin: 02/04/18 09:32 Dose: 10 mg Sennosides (Senokot Tab) 17.2 mg PO [facility] Last Admin: 02/03/18 22:39 Dose: 17.2 mg Sertraline HCl (Zoloft) 25 mg PO [facility] Last Admin: 02/03/18 21:26 Dose: 25 mg - Labs Labs: 02/04/18 06:30 02/04/18 06:30 PT 11.9 Seconds (9.8-13.1) 01/24/18 04:20 INR 1.1 (0.9-1.2) 01/24/18 04:20 APTT 46.2 Seconds (25.6-37.1) H D 01/24/18 04:20 - Constitutional Appears: Non-toxic, Cachectic, Chronically Ill - Head Exam Head Exam: NORMOCEPHALIC - Eye Exam Eye Exam: PERRL. absent: Scleral icterus - ENT Exam ENT Exam: Mucous Membranes Dry - Neck Exam Neck Exam: absent: Lymphadenopathy - Respiratory Exam Respiratory Exam: Decreased Breath Sounds - Cardiovascular Exam Cardiovascular Exam: REGULAR RHYTHM - GI/Abdominal Exam GI & Abdominal Exam: Distended - Rectal Exam Rectal Exam: Deferred - Exam Exam: NORMAL INSPECTION - Extremities Exam Additional comments: wound healing no pus no redness - Back Exam Back Exam: absent: CVA tenderness (L), CVA tenderness (R) - Neurological Exam Neurological Exam: Alert, Awake, Oriented x3 Neuro motor strength exam: Left Upper Extremity: 3, Right Upper Extremity: 3, Left Lower Extremity: 3, Right Lower Extremity: 3 - Psychiatric Exam Psychiatric exam: Depressed - Skin Skin Exam: Dry Assessment and Plan (1) Gangrene Status: Acute (2) Acute kidney injury Status: Acute (3) CAD (coronary artery disease) Status: Acute (4) Cardiomyopathy, dilated Status: Acute (5) Diabetic foot ulcer Status: Acute (6) Hyperglycemia due to type 2 diabetes mellitus Status: Acute (7) Osteomyelitis Status: Acute - Assessment and Plan (Free Text) Assessment: leukocytosis non specific repeat cxr AND U/A
[2018-02-04] MEDS: Sodium Chloride 0.9% 1,000 ML IV SCH (13:25)
--- NOTE | 2018-02-04 13:45 | OP ---
PROCEDURE DATE: PREOPERATIVE DIAGNOSIS: Necrosis of the leg. POSTOPERATIVE DIAGNOSIS: Necrosis of the leg. OPERATION PERFORMED: Below-knee amputation. SURGEON: Dario Christian MD ALUMINUM SIDING INSTALLER: Dr. Avery. DESCRIPTION OF PROCEDURE: In the operating room, the leg was marked, it was prepped and draped, having waited 3 minutes for prep dry, was placed in a stockinette and the tourniquet is applied. After successful time-out, the leg was exsanguinated with an Esmarch bandage. The tourniquet was applied until 250, thereafter, the incision was examined. A long posterior flap was planned. It was mapped out and thereafter, the incision was outlined with a knife down to the fascia circumferentially along the incision line. There was little bit of bleeding on the muscle and the periosteum around the leg was taken down exposing the tibia and fibula very nicely. This was from the posterior and the tibia was divided with the saw. Followed by the tibia, the proximal fibula was taken apart with a rongeur high up. Thereafter, and on the fibula and the tibia. The amputation knife was used to score the leg down to the planned flap. It was then turned posteriorly and the leg removed. There was very little bleeding. The artery nerve was identified very clearly and suture ligated, the vein was clamped and tied. The nerve was separately identified and taken as a high ligation and clamped and tied. Bleeding was stopped by cautery suture as necessary. The tourniquet was let down and there was very little bleeding. The flaps were viable. The drain was a Alirio. The incision was closed with 0 Vicryl for the fascia and marci for the skin. Light pressure dressing applied with the knee immobilizer. The patient was taken to the recovery room in good condition after the sponge and needle counts were declared correct. Dario Christian MD
--- NOTE | 2018-02-04 14:45 | RAD ---
PROCEDURE: CHEST RADIOGRAPH, 1 VIEW HISTORY: R/O PNEUMIONIA COMPARISON: 02/01/2018 FINDINGS: LUNGS: Clear. PLEURA: No pneumothorax or pleural fluid seen. CARDIOVASCULAR: No radiographic findings to suggest acute or significant cardiovascular disease. Per institutional protocol findings have been routed to the PA folder for review OSSEOUS STRUCTURES: No significant abnormalities. VISUALIZED UPPER ABDOMEN: Normal. OTHER FINDINGS: None. IMPRESSION: No active disease. Improvement in aeration left lower lobe.
--- NOTE | 2018-02-04 16:41 | RAD ---
PROCEDURE: Radiographs of the Right Shoulder HISTORY: fall COMPARISON: No prior. FINDINGS: BONES: No acute fracture or destructive bony lesion identified. JOINTS: Limited acromioclavicular and moderate glenohumeral joint degenerative changes. SOFT TISSUES: Normal. OTHER FINDINGS: Right PICC insertion identified terminating at the cavoatrial junction IMPRESSION: No acute fracture dislocation identified.
--- NOTE | 2018-02-04 16:45 | RAD ---
PROCEDURE: ORBITS RADIOGRAPH SERIES HISTORY: fall COMPARISON: Unenhanced head CT 05/31/2017. TECHNIQUE: Four views of the orbits been submitted for interpretation. FINDINGS: No cortical disruption is appreciated with suggest definite displaced orbital fracture. No destructive bony lesion appreciable grossly. Right maxillary sinus appears opacified suggesting overlying soft tissue edema or possible sinusitis. Clinically correlate further. IMPRESSION: No definite displaced orbital fracture appreciated. CT is available for follow-up if clinically warranted. No destructive bony lesion appear possible right mastoid sinus disease.
[2018-02-04 20:29] LABS: URINE BILIRUBIN NEGATIVE (NEGATIVE); URINE BLOOD MODERATE (NEGATIVE); URINE CLARITY SLIGHTY-CLOUDY (Clear); URINE COLOR YELLOW (YELLOW); URINE GLUCOSE (UA) 50 mg/dL (Normal); URINE LEUKOCYTE ESTERASE NEG Leu/uL (Negative); URINE PROTEIN 100 mg/dL (NEGATIVE); URINE UROBILINOGEN 0.2-1.0 mg/dL (0.2-1.0)
[2018-02-04] MEDS: Linezolid 600 mg in D5W 300 ml 600 MG/300 ML BAG IVPB SCH (21:25)
[2018-02-04] MEDS: Insulin Detemir 100 Units/ml Inj SC SCH (23:06)
--- NOTE | 2018-02-05 07:59 | CP.PCM.PN ---
Subjective - Date & Time of Evaluation Date of Evaluation: 02/05/18 Time of Evaluation: 07:59 - Subjective Subjective: Patient seen and examined this morning, no overnight events. Denies R leg pain today, patient taking breakfast by herself. Less UE weakness appreciated. Patient still confused but better than previous days. No PT/OT yesterday. Afebrile, no chills, N/V chest pain, abdominal pain, or sob. No urinary symptoms. Patient fell yesterday in the afternoon from bed (see addendum on yesterday's note), orbital, R shoulder and cxr wnl, no fractures appreciated. Objective - Vital Signs/Intake and Output Vital Signs (last 24 hours): Temp Pulse Resp BP Pulse Ox 97.7 F 108 H 19 98/65 L 95 02/05/18 00:00 02/05/18 00:00 02/05/18 00:00 02/05/18 00:00 02/05/18 00:00 - Medications Medications: Current Medications Acetaminophen (Tylenol 325mg Tab) 650 mg PO Q6 PRN PRN Reason: Pain, Mild (1-3) Last Admin: 01/30/18 01:53 Dose: 650 mg Aspirin (Aspirin Chewable) 81 mg PO DAILY [facility] Last Admin: 02/04/18 09:21 Dose: 81 mg Atorvastatin Calcium (Lipitor) 40 mg PO HS [facility] Last Admin: 02/04/18 21:25 Dose: 40 mg Benzocaine/Menthol (Cepacol Sore Throat) 1 grazyna PO Q2 PRN PRN Reason: Sore Throat Last Admin: 01/27/18 11:03 Dose: 1 grazyna Carvedilol (Coreg) 3.125 mg PO Q12 [facility] Last Admin: 02/04/18 21:24 Dose: 3.125 mg Clopidogrel Bisulfate (Plavix) 75 mg PO DAILY [facility] Last Admin: 02/04/18 09:23 Dose: 75 mg Dextrose (Dextrose 50% Inj) 0 ml IV STAT PRN; Protocol PRN Reason: Hypoglycemia Protocol Dextrose (Glutose 15) 0 gm PO ONCE PRN; Protocol PRN Reason: Hypoglycemia Protocol Glucagon (Glucagen Diagnostic Kit) 0 mg IM STAT PRN; Protocol PRN Reason: Hypoglycemia Protocol Linezolid (Zyvox 600mg/300ml D5w) 600 mg in 300 mls @ 300 mls/hr IVPB Q12 [facility] PRN Reason: Protocol Last Admin: 02/04/18 21:25 Dose: 300 mls/hr Insulin Detemir (Levemir) 15 units SC [facility] Last Admin: 02/04/18 23:06 Dose: 15 units Insulin Human Regular (Humulin R) 0 units SC [facility] PRN Reason: Protocol Last Admin: 02/04/18 23:06 Dose: Not Given Lidocaine (Lidoderm) 2 ea TD DAILY [facility] Last Admin: 02/04/18 09:22 Dose: 2 ea Mirtazapine (Remeron) 30 mg PO [facility] Last Admin: 02/04/18 21:25 Dose: 30 mg Morphine Sulfate (Morphine Immediate Release Tab) 15 mg PO Q4 PRN PRN Reason: Pain, moderate (4-7) Ondansetron HCl (Zofran Inj) 4 mg IVP Q4 PRN PRN Reason: Nausea/Vomiting Oxycodone HCl (Oxycontin Extended Release Tab) 10 mg PO Q12 [facility] Last Admin: 02/04/18 21:22 Dose: 10 mg Sennosides (Senokot Tab) 17.2 mg PO [facility] Last Admin: 02/04/18 21:25 Dose: 17.2 mg - Labs Labs: 02/04/18 06:30 02/04/18 06:30 PT 11.9 Seconds (9.8-13.1) 01/24/18 04:20 INR 1.1 (0.9-1.2) 01/24/18 04:20 APTT 46.2 Seconds (25.6-37.1) H D 01/24/18 04:20 - Constitutional Appears: Non-toxic, Chronically Ill - Head Exam Head Exam: NORMAL INSPECTION - Eye Exam Eye Exam: EOMI, Periorbital swelling (R eye), Periorbital tenderness (R eye), PERRL - Respiratory Exam Respiratory Exam: Chest Wall Tenderness (Mild tender in R side), Clear to Ausculation Bilateral, NORMAL BREATHING PATTERN - Cardiovascular Exam Cardiovascular Exam: REGULAR RHYTHM, +S1. absent: Tachycardia, Murmur - GI/Abdominal Exam GI & Abdominal Exam: Soft, Normal Bowel Sounds. absent: Distended, Tenderness - Extremities Exam Extremities Exam: absent: Calf Tenderness Additional comments: Mild erythema note on upper aspect of L stump, seem improving, Incision clean, intact, no exudates or dehiscence noted. - Neurological Exam Neurological Exam: Alert, Awake Neuro motor strength exam: Left Upper Extremity: 3, Right Upper Extremity: 3, Left Lower Extremity: 3, Right Lower Extremity: 3 - Skin Skin Exam: Dry, Warm Additional comments: DTI sacrum region, 3.3x3.9, purple Assessment and Plan - Assessment and Plan (Free Text) Assessment: 67yo F with PMHx DM2, HTN, HLD, AK, CVA, chronic back pain admitted with left lower extremity limb ischemia s/p L BKA on 01/24/18. Leukocytosis, non specific. Plan: ID consuted. Started linezolid IV. POD #12 today. Recommended acute rehab. Plan: 1- L BKA - Vascular surg Dr. Christian, on board - d/c Oxycontin. - c/w morphine 15mg PO PRN - PT/OT 2- Leukocytosis, non specific - WBC 17, remains afebril - ID consut apreciated by Dr Palacios - UA, urine cx - start linezolid 600 mg Q12 -VBG, Mg, Phos 3- Acute on CKD - BUN/Cr 58/1.9 - Nephro consulted, recs appreciated. 4- Coronary Artery Disease - Cardio Dr. Mcdaniel on board - c/w aspirin and plavix 5- Insulin Dependent Type 2 Diabetes - c/w Levemir 12U HS. - Hypoglycemia protocol and insulin coverage scale. - Accuchecks ACHS. - Diabetic diet. 6- reduced EF CHF - Echo 05/22/17: showed EF of 20%. -Continue carvedilol 3.125 BID -Continue furosemide 20mg BID -Continue isosorbide mononitrate 30 mg -continue Lisinopril 5mg 7- Depression - Sertraline 50mg daily. 8- HLD - Continue with Lipitor 40mg HS 9- DTI, sacrum - wound care daily 10- DVT prophylaxis - Levonox 40mcg 11- Dispo - PT-acute rehab 12- Lines - PICC 01/20/18 (day 16)
[2018-02-05 08:03] LABS: BASO # 0.1 K/uL (0.0-0.2); BASO % 0.5 % (0.0-2.0); EOS # 0.1 K/uL (0.0-0.7); EOS % 0.7 % (0.0-4.0); HEMOGLOBIN 11.4 g/dL (12.0-16.0); LYMPH # 1.3 K/uL (1.0-4.3); LYMPH % 7.6 % (20.0-40.0); MEAN CELL VOLUME 86.3 fl (81.0-99.0); MEAN CORPUSCULAR HEMOGLOBIN 29.1 pg (27.0-31.0); MEAN CORPUSCULAR HGB CONC 33.7 g/dL (33.0-37.0); MEAN PLATELET VOLUME 10.6 fl (7.2-11.7); MONO # 1.1 K/uL (0.0-0.8); MONO % 6.2 % (0.0-10.0); NEUT # 14.8 K/uL (1.8-7.0); NRBC % 0.1 % (0.0-0.0); PLATELET COUNT 262 K/uL (130-400); RED CELL DISTRIBUTION WIDTH 13.2 % (11.5-14.5); WHITE BLOOD COUNT 17.4 K/uL (4.8-10.8)
[2018-02-05] MEDS: Linezolid 600 mg in D5W 300 ml 600 MG/300 ML BAG IVPB SCH ×2 (08:58→21:47)
[2018-02-05] MEDS: Lidocaine 5% Patch TD SCH (08:59)
[2018-02-05] MEDS: oxyCODONE 10 mg ER Tab (oxyCONTIN) PO SCH (09:01)
[2018-02-05] MEDS: Insulin Regular 100 units/ml SC SCH ×4 (09:06→21:48)
[2018-02-05 11:36] LABS: BANDS 2 % (0-2); BASOPHIL 1 % (0-2); EOSINOPHIL 1 % (0-7); LYMPHOCYTE 9 % (20-50); MONOCYTE 9 % (0-10); NEUTROPHIL 78 % (42-75); PLATELET ESTIMATE NORMAL (NORMAL); TOTAL CELLS COUNTED 100
[2018-02-05 11:37] LABS: ANISOCYTOSIS SLIGHT; HYPOCHROMIC SLIGHT; TOXIC GRANULATION PRESENT
[2018-02-05] MEDS ORDERED: oxyCODONE 10 mg ER Tab (oxyCONTIN) PO PRN (11:44)
--- NOTE | 2018-02-05 19:00 | CP.PCM.CON ---
History of Present Illness - History of Present Illness History of Present Illness: 67 yo F w/ pmh of htn, dm, hld, CHF w/ severe systolic dysfunction, CKD III, s/ p CVA, initially admitted due to L foot ischemia; subsequently underwent L BKA last week; nephrology now being consulted for NAI; Patient had recently been on vancomycin and cefepime with last doses received ~ 6 days ago; started on linezolid yesterday in the setting of increasing leukocytosis; Patient also suffered a fall yesterday and suffered trauma to her R face; unclear if there was any lightheadedness at the time; was on diuretics up until 2 days ago; Per nursing staff, patient was retaining urine on bladder scan done today; subsequently, zelaya placed today with ~400 cc drained at once; she otherwise denies nausea/vomiting, reports constipation; otherwise tolerating diet; Review of Systems - Constitutional Constitutional: absent: Anorexia - Cardiovascular Cardiovascular: Chest Pain - Respiratory Respiratory: absent: Dyspnea - Gastrointestinal Gastrointestinal: As Per HPI - Genitourinary Genitourinary: As Per HPI - Musculoskeletal Additional comments: pain controlled; - Neurological Neurological: Numbness Past Patient History - Infectious Disease Hx of Infectious Diseases: None - Tetanus Immunizations Tetanus Immunization: Unknown - Past Medical History & Family History Past Medical History?: Yes - Past Social History Smoking Status: Former Smoker - CARDIAC Hx Cardiac Disorders: Yes Hx Hypercholesterolemia: Yes Hx Hypertension: Yes - PULMONARY Hx Respiratory Disorders: No - NEUROLOGICAL HX Cerebrovascular Accident: Yes - HEENT Hx HEENT Problems: No - ENDOCRINE/METABOLIC Hx Diabetes Mellitus Type 2: Yes - HEMATOLOGICAL/ONCOLOGICAL Hx Blood Disorders: No - INTEGUMENTARY Hx Dermatological Problems: No - MUSCULOSKELETAL/RHEUMATOLOGICAL Hx Musculoskeletal Disorders: Yes Hx Falls: Yes (fell 6 months ago) Other/Comment: hx of chronic back pain - GASTROINTESTINAL Hx Gastrointestinal Disorders: No - GENITOURINARY/GYNECOLOGICAL Hx Genitourinary Disorders: No - PSYCHIATRIC Hx Psychophysiologic Disorder: No Hx Substance Use: No - SURGICAL HISTORY Hx Coronary Stent: Yes - ANESTHESIA Hx Malignant Hyperthermia: No Meds Allergies/Adverse Reactions: Allergies Allergy/AdvReac Type Severity Reaction Status Date / Time No Known Allergies Allergy Verified 05/14/16 14:21 - Medications Medications: Current Medications Acetaminophen (Tylenol 325mg Tab) 650 mg PO Q6 PRN PRN Reason: Pain, Mild (1-3) Last Admin: 01/30/18 01:53 Dose: 650 mg Aspirin (Aspirin Chewable) 81 mg PO DAILY [facility] Last Admin: 02/05/18 08:58 Dose: 81 mg Atorvastatin Calcium (Lipitor) 40 mg PO HS [facility] Last Admin: 02/04/18 21:25 Dose: 40 mg Benzocaine/Menthol (Cepacol Sore Throat) 1 grazyna PO Q2 PRN PRN Reason: Sore Throat Last Admin: 01/27/18 11:03 Dose: 1 grazyna Carvedilol (Coreg) 3.125 mg PO Q12 [facility] Last Admin: 02/05/18 09:09 Dose: 3.125 mg Clopidogrel Bisulfate (Plavix) 75 mg PO DAILY [facility] Last Admin: 02/05/18 08:58 Dose: 75 mg Dextrose (Dextrose 50% Inj) 0 ml IV STAT PRN; Protocol PRN Reason: Hypoglycemia Protocol Dextrose (Glutose 15) 0 gm PO ONCE PRN; Protocol PRN Reason: Hypoglycemia Protocol Glucagon (Glucagen Diagnostic Kit) 0 mg IM STAT PRN; Protocol PRN Reason: Hypoglycemia Protocol Linezolid (Zyvox 600mg/300ml D5w) 600 mg in 300 mls @ 300 mls/hr IVPB Q12 [facility] PRN Reason: Protocol Last Admin: 02/05/18 08:58 Dose: 300 mls/hr Insulin Detemir (Levemir) 15 units SC HS [facility] Last Admin: 02/04/18 23:06 Dose: 15 units Insulin Human Regular (Humulin R) 0 units SC ACHS [facility] PRN Reason: Protocol Last Admin: 02/05/18 17:27 Dose: 3 units Lidocaine (Lidoderm) 2 ea TD DAILY [facility] Last Admin: 02/05/18 08:59 Dose: 2 ea Mirtazapine (Remeron) 30 mg PO HS [facility] Last Admin: 02/04/18 21:25 Dose: 30 mg Morphine Sulfate (Morphine Immediate Release Tab) 15 mg PO Q4 PRN PRN Reason: Pain, moderate (4-7) Ondansetron HCl (Zofran Inj) 4 mg IVP Q4 PRN PRN Reason: Nausea/Vomiting Sennosides (Senokot Tab) 17.2 mg PO HS [facility] Last Admin: 02/04/18 21:25 Dose: 17.2 mg Physical Exam - Constitutional Appears: Non-toxic, No Acute Distress - Eye Exam Eye Exam: absent: Scleral icterus - ENT Exam ENT Exam: Mucous Membranes Moist - Respiratory Exam Respiratory Exam: Clear to Auscultation Bilateral. absent: Respiratory Distress - Cardiovascular Exam Cardiovascular Exam: Systolic Murmur. absent: Gallop, Rubs - GI/Abdominal Exam GI & Abdominal Exam: Soft, Tenderness. absent: Distended - Exam Exam: absent: Bladder Distension - Extremities Exam Additional comments: no leg edema; - Neurological Exam Neurological exam: Alert - Psychiatric Exam Psychiatric exam: Normal Mood - Skin Skin Exam: Normal Color, Warm Results - Vital Signs Recent Vital Signs: Last Vital Signs Temp 98.8 F 02/05/18 16:16 Pulse 71 02/05/18 16:16 Resp 16 02/05/18 16:16 BP 145/71 02/05/18 16:16 Pulse Ox 96 02/05/18 16:16 - Labs Result Diagrams: 02/05/18 06:00 02/04/18 06:30 Labs: Laboratory Results - last 24 hr 02/04/18 02/04/18 02/05/18 20:13 21:36 05:54 WBC RBC Hgb Hct MCV MCH MCHC RDW Plt Count MPV Neut % (Auto) Lymph % (Auto) [place] % (Auto) Eos % (Auto) Baso % (Auto) Neut # (Auto) Lymph # (Auto) [place] # (Auto) Eos # (Auto) Baso # (Auto) Neutrophils % (Manual) Band Neutrophils % Lymphocytes % (Manual) Monocytes % (Manual) Eosinophils % (Manual) Basophils % (Manual) Toxic Granulation Platelet Estimate Hypochromasia (manual) Anisocytosis (manual) POC Glucose (mg/dL) 188 H 162 H Phosphorus Magnesium Urine Color Yellow Urine Clarity Slighty-cloudy Urine pH 5.0 Ur Specific [place] 1.012 Urine Protein 100 Urine Glucose (UA) 50 Urine Ketones Negative Urine Blood Moderate Urine Nitrate Negative Urine Bilirubin Negative Urine Urobilinogen 0.2-1.0 Ur Leukocyte Esterase Neg Urine RBC (Auto) 7 H Urine Microscopic WBC < 1 02/05/18 02/05/18 02/05/18 06:00 11:46 11:52 WBC 17.4 H RBC 3.90 Hgb 11.4 L Hct 33.7 L MCV 86.3 MCH 29.1 MCHC 33.7 RDW 13.2 Plt Count 262 MPV 10.6 Neut % (Auto) 85.0 H Lymph % (Auto) 7.6 L [place] % (Auto) 6.2 Eos % (Auto) 0.7 Baso % (Auto) 0.5 Neut # (Auto) 14.8 H Lymph # (Auto) 1.3 [place] # (Auto) 1.1 H Eos # (Auto) 0.1 Baso # (Auto) 0.1 Neutrophils % (Manual) 78 H Band Neutrophils % 2 Lymphocytes % (Manual) 9 L Monocytes % (Manual) 9 Eosinophils % (Manual) 1 Basophils % (Manual) 1 Toxic Granulation Present Platelet Estimate Normal Hypochromasia (manual) Slight Anisocytosis (manual) Slight POC Glucose (mg/dL) 326 H Phosphorus 3.5 Magnesium 2.4 H Urine Color Urine Clarity Urine pH Ur Specific [place] Urine Protein Urine Glucose (UA) Urine Ketones Urine Blood Urine Nitrate Urine Bilirubin Urine Urobilinogen Ur Leukocyte Esterase Urine RBC (Auto) Urine Microscopic WBC 02/05/18 16:56 WBC RBC Hgb Hct MCV MCH MCHC RDW Plt Count MPV Neut % (Auto) Lymph % (Auto) [place] % (Auto) Eos % (Auto) Baso % (Auto) Neut # (Auto) Lymph # (Auto) [place] # (Auto) Eos # (Auto) Baso # (Auto) Neutrophils % (Manual) Band Neutrophils % Lymphocytes % (Manual) Monocytes % (Manual) Eosinophils % (Manual) Basophils % (Manual) Toxic Granulation Platelet Estimate Hypochromasia (manual) Anisocytosis (manual) POC Glucose (mg/dL) 204 H Phosphorus Magnesium Urine Color Urine Clarity Urine pH Ur Specific [place] Urine Protein Urine Glucose (UA) Urine Ketones Urine Blood Urine Nitrate Urine Bilirubin Urine Urobilinogen Ur Leukocyte Esterase Urine RBC (Auto) Urine Microscopic WBC - Imaging and Cardiology Chest x-ray Status: Image reviewed by me Additional comment: no significant pulm vascular congestion; Assessment & Plan (1) Acute kidney injury Assessment and Plan: Likely multifactorial; had been on vanco with levels running borderline high; diuretics likely contributory with patient having cardiorenal/renovascular component of renal insufficiency in the setting of severe systolic dysfunction and with CT angio from last year showing evidence of b/l renal artery stenosis; may also have reflux nephropathy with evidence of urinary retention (perhaps caused by pain meds); -Agree with holding diuretics for now -Agree with zelaya placement; -Avoid nephrotoxic agents or meds that can hemodynamically impair renal function (NSAIDS, fleets enema) Status: Acute (2) CKD (chronic kidney disease), stage III Status: Chronic (3) Systolic CHF, chronic Status: Acute (4) Anemia Status: Acute (5) PVD (peripheral vascular disease) Status: Chronic
[2018-02-05] MEDS: Insulin Detemir 100 Units/ml Inj SC SCH (21:49)
[2018-02-05] MEDS: Morphine 15 mg Immediate Release Tab PO PRN (23:16)
[2018-02-06] MEDS: Insulin Regular 100 units/ml SC SCH ×4 (07:55→22:23)
[2018-02-06] MEDS: Linezolid 600 mg in D5W 300 ml 600 MG/300 ML BAG IVPB SCH ×2 (08:40→21:04)
[2018-02-06] MEDS: Lidocaine 5% Patch TD SCH (08:41)
[2018-02-06] MEDS: Morphine 15 mg Immediate Release Tab PO PRN ×2 (09:23→17:31)
[2018-02-06 09:39] LABS: ALB/GLOB RATIO 0.8 (1.0-2.1); ALBUMIN 3.2 g/dL (3.5-5.0); CALCIUM 9.4 mg/dL (8.4-10.2)
[2018-02-06 09:52] LABS: BASO # 0.1 K/uL (0.0-0.2); BASO % 0.6 % (0.0-2.0); EOS # 0.3 K/uL (0.0-0.7); EOS % 1.5 % (0.0-4.0); HEMOGLOBIN 12.8 g/dL (12.0-16.0); LYMPH # 1.7 K/uL (1.0-4.3); LYMPH % 8.9 % (20.0-40.0); MEAN CELL VOLUME 87.9 fl (81.0-99.0); MEAN CORPUSCULAR HEMOGLOBIN 29.3 pg (27.0-31.0); MEAN CORPUSCULAR HGB CONC 33.3 g/dL (33.0-37.0); MEAN PLATELET VOLUME 10.7 fl (7.2-11.7); NEUT # 16.4 K/uL (1.8-7.0); RBC 4.36 Mil/uL (3.80-5.20); RED CELL DISTRIBUTION WIDTH 13.6 % (11.5-14.5); WHITE BLOOD COUNT 19.5 K/uL (4.8-10.8)
--- NOTE | 2018-02-06 11:52 | CP.PCM.PN ---
Subjective - Date & Time of Evaluation Date of Evaluation: 02/06/18 Time of Evaluation: 11:50 - Subjective Subjective: overnight, no acute events. tolerated pain with no scheduled oxycodone. Dalal placed yesterday. Making BM. Eating/drinking. c/o right shoulder pain and right eye pain. pain controlled at L BKA site. Objective - Vital Signs/Intake and Output Vital Signs (last 24 hours): Temp Pulse Resp BP Pulse Ox 98 F 72 20 145/70 97 02/06/18 08:19 02/06/18 08:19 02/06/18 08:19 02/06/18 08:19 02/06/18 08:19 Intake and Output: 02/06/18 02/06/18 06:59 18:59 Output Total 900 Balance -900 - Medications Medications: Current Medications Acetaminophen (Tylenol 325mg Tab) 650 mg PO Q6 PRN PRN Reason: Pain, Mild (1-3) Last Admin: 02/05/18 22:01 Dose: 650 mg Aspirin (Aspirin Chewable) 81 mg PO DAILY [facility] Last Admin: 02/06/18 08:40 Dose: 81 mg Atorvastatin Calcium (Lipitor) 40 mg PO HS [facility] Last Admin: 02/05/18 21:48 Dose: 40 mg Benzocaine/Menthol (Cepacol Sore Throat) 1 grazyna PO Q2 PRN PRN Reason: Sore Throat Last Admin: 01/27/18 11:03 Dose: 1 grazyna Carvedilol (Coreg) 3.125 mg PO Q12 [facility] Last Admin: 02/06/18 08:40 Dose: 3.125 mg Clopidogrel Bisulfate (Plavix) 75 mg PO DAILY [facility] Last Admin: 02/06/18 08:41 Dose: 75 mg Dextrose (Dextrose 50% Inj) 0 ml IV STAT PRN; Protocol PRN Reason: Hypoglycemia Protocol Dextrose (Glutose 15) 0 gm PO ONCE PRN; Protocol PRN Reason: Hypoglycemia Protocol Glucagon (Glucagen Diagnostic Kit) 0 mg IM STAT PRN; Protocol PRN Reason: Hypoglycemia Protocol Linezolid (Zyvox 600mg/300ml D5w) 600 mg in 300 mls @ 300 mls/hr IVPB Q12 [facility] PRN Reason: Protocol Last Admin: 02/06/18 08:40 Dose: 300 mls/hr Insulin Detemir (Levemir) 15 units SC [facility] Last Admin: 02/05/18 21:49 Dose: 15 units Insulin Human Regular (Humulin R) 0 units SC [facility] PRN Reason: Protocol Last Admin: 02/06/18 07:55 Dose: Not Given Lidocaine (Lidoderm) 2 ea TD DAILY [facility] Last Admin: 02/06/18 08:41 Dose: 2 ea Mirtazapine (Remeron) 30 mg PO [facility] Last Admin: 02/05/18 21:48 Dose: 30 mg Morphine Sulfate (Morphine Immediate Release Tab) 15 mg PO Q4 PRN PRN Reason: Pain, moderate (4-7) Last Admin: 02/06/18 09:23 Dose: 15 mg Ondansetron HCl (Zofran Inj) 4 mg IVP Q4 PRN PRN Reason: Nausea/Vomiting Sennosides (Senokot Tab) 17.2 mg PO [facility] Last Admin: 02/05/18 21:48 Dose: 17.2 mg - Labs Labs: 02/06/18 07:06 02/06/18 07:06 PT 11.9 Seconds (9.8-13.1) 01/24/18 04:20 INR 1.1 (0.9-1.2) 01/24/18 04:20 APTT 46.2 Seconds (25.6-37.1) H D 01/24/18 04:20 - Constitutional Appears: No Acute Distress - Head Exam Head Exam: NORMAL INSPECTION - Eye Exam Eye Exam: Normal appearance - ENT Exam ENT Exam: Mucous Membranes Moist Additional comments: R eye/cheek/maxillary area hematoma - Neck Exam Neck Exam: Full ROM, Normal Inspection - Respiratory Exam Respiratory Exam: Clear to Ausculation Bilateral - Cardiovascular Exam Cardiovascular Exam: REGULAR RHYTHM - GI/Abdominal Exam GI & Abdominal Exam: Soft - Extremities Exam Additional comments: L BKA: no discharge, some erythema, no warmth right shoulder: tender to palpation, no gross deformity, no swelling, limited ROM 2/2 pain - Neurological Exam Neurological Exam: Alert, Awake - Psychiatric Exam Psychiatric exam: Normal Affect, Normal Mood - Skin Skin Exam: Dry, Warm Assessment and Plan - Assessment and Plan (Free Text) Assessment: Assessment: 67yo F with PMHx DM2, HTN, HLD, [place], CVA, chronic back pain admitted with left lower extremity limb ischemia s/p L BKA on 01/24/18. Plan: c/w IV linezolid for leukocytosis, no fever or urine/CXR findings, esteban culture if febrile. s/p L BKA POD #13 today. PT dispo as acute rehab. Plan: left lower extremity limb ischemia s/p L BKA POD 13 - Vascular surg Dr. Christian, on board - c/w morphine 15mg PO PRN - PT/OT -wound care Leukocytosis, non specific - ID consut apreciated by Dr Palacios -c/w linezolid 600 mg Q12 -VBG lactate pending NAI on CKD -improving - Nephro consulted, recs appreciated. -avoid nephrotoxins confusion possible baseline dementia v ongoing delirium. room change x6 in past 2 weeks, very few family support present throughout the day. Neuro consulted, recs appreciated. stopped oxycodone, sertraline urinary retention Dalal urine cx NGTD Coronary Artery Disease - Cardio Dr. Mcdaniel on board - c/w aspirin and plavix Insulin Dependent Type 2 Diabetes - c/w Levemir 12U HS. - Hypoglycemia protocol and insulin coverage scale. - Accuchecks ACHS. - Diabetic diet. reduced EF CHF - Echo 05/22/17: showed EF of 20%. -Continue carvedilol 3.125 BID -stopped furosemide 20mg BID 2/2 NAI on CKD -held isosorbide mononitrate 30 mg and Lisinopril 5mg as BP controlled in setting of NAI and to maintain renal perfusion Depression -held Sertraline 50mg daily for possible contribution to confusion HLD - Continue with Lipitor 40mg HS DTI, sacrum - wound care daily DVT prophylaxis - Levonox 40mcg Lines - PICC 01/20/18 (day 16) -Dalal 02/05/18 Dispo - PT-acute rehab
--- NOTE | 2018-02-06 12:34 | US ---
PROCEDURE: Ultrasound of the Kidneys HISTORY: acute kidney injury COMPARISON: None available. TECHNIQUE: Sonogram of the kidneys. FINDINGS: RIGHT KIDNEY: Measures: cm. Normal in size, contour and echogenicity. No stone, solid mass lesion or hydronephrosis visualized. LEFT KIDNEY: Measures: cm. Normal in size, contour and echogenicity. No stone, solid mass lesion or hydronephrosis visualized. OTHER FINDINGS: None. IMPRESSION: Unremarkable renal sonogram.
--- NOTE | 2018-02-06 14:01 | CP.PCM.PN ---
Subjective - Date & Time of Evaluation Date of Evaluation: 02/06/18 Time of Evaluation: 09:00 - Subjective Subjective: leukocytosis noted iv rx restarted after cultures Objective - Vital Signs/Intake and Output Vital Signs (last 24 hours): Temp Pulse Resp BP Pulse Ox 98 F 72 20 145/70 97 02/06/18 08:19 02/06/18 08:19 02/06/18 08:19 02/06/18 08:19 02/06/18 08:19 Intake and Output: 02/06/18 02/06/18 06:59 18:59 Output Total 900 Balance -900 - Medications Medications: Current Medications Acetaminophen (Tylenol 325mg Tab) 650 mg PO Q6 PRN PRN Reason: Pain, Mild (1-3) Last Admin: 02/05/18 22:01 Dose: 650 mg Aspirin (Aspirin Chewable) 81 mg PO DAILY [facility] Last Admin: 02/06/18 08:40 Dose: 81 mg Atorvastatin Calcium (Lipitor) 40 mg PO HS [facility] Last Admin: 02/05/18 21:48 Dose: 40 mg Benzocaine/Menthol (Cepacol Sore Throat) 1 grazyna PO Q2 PRN PRN Reason: Sore Throat Last Admin: 01/27/18 11:03 Dose: 1 grazyna Carvedilol (Coreg) 3.125 mg PO Q12 [facility] Last Admin: 02/06/18 08:40 Dose: 3.125 mg Clopidogrel Bisulfate (Plavix) 75 mg PO DAILY [facility] Last Admin: 02/06/18 08:41 Dose: 75 mg Dextrose (Dextrose 50% Inj) 0 ml IV STAT PRN; Protocol PRN Reason: Hypoglycemia Protocol Dextrose (Glutose 15) 0 gm PO ONCE PRN; Protocol PRN Reason: Hypoglycemia Protocol Glucagon (Glucagen Diagnostic Kit) 0 mg IM STAT PRN; Protocol PRN Reason: Hypoglycemia Protocol Linezolid (Zyvox 600mg/300ml D5w) 600 mg in 300 mls @ 300 mls/hr IVPB Q12 [facility] PRN Reason: Protocol Last Admin: 02/06/18 08:40 Dose: 300 mls/hr Insulin Detemir (Levemir) 15 units SC HS [facility] Last Admin: 02/05/18 21:49 Dose: 15 units Insulin Human Regular (Humulin R) 0 units SC [facility] PRN Reason: Protocol Last Admin: 02/06/18 12:33 Dose: 6 units Lidocaine (Lidoderm) 2 ea TD DAILY [facility] Last Admin: 02/06/18 08:41 Dose: 2 ea Mirtazapine (Remeron) 30 mg PO HS [facility] Last Admin: 02/05/18 21:48 Dose: 30 mg Morphine Sulfate (Morphine Immediate Release Tab) 15 mg PO Q4 PRN PRN Reason: Pain, moderate (4-7) Last Admin: 02/06/18 09:23 Dose: 15 mg Ondansetron HCl (Zofran Inj) 4 mg IVP Q4 PRN PRN Reason: Nausea/Vomiting Sennosides (Senokot Tab) 17.2 mg PO HS [facility] Last Admin: 02/05/18 21:48 Dose: 17.2 mg - Labs Labs: 02/06/18 07:06 02/06/18 07:06 PT 11.9 Seconds (9.8-13.1) 01/24/18 04:20 INR 1.1 (0.9-1.2) 01/24/18 04:20 APTT 46.2 Seconds (25.6-37.1) H D 01/24/18 04:20 - Constitutional Appears: Non-toxic, Cachectic, Chronically Ill - Head Exam Head Exam: NORMOCEPHALIC - Eye Exam Eye Exam: PERRL - ENT Exam ENT Exam: Mucous Membranes Dry - Neck Exam Neck Exam: absent: Lymphadenopathy - Respiratory Exam Respiratory Exam: Decreased Breath Sounds - Cardiovascular Exam Cardiovascular Exam: REGULAR RHYTHM - GI/Abdominal Exam GI & Abdominal Exam: Distended - Rectal Exam Rectal Exam: Deferred Assessment and Plan (1) Gangrene Status: Acute (2) Acute kidney injury Status: Acute (3) CAD (coronary artery disease) Status: Acute (4) Cardiomyopathy, dilated Status: Acute (5) Diabetic foot ulcer Status: Acute (6) Hyperglycemia due to type 2 diabetes mellitus Status: Acute (7) Osteomyelitis Status: Acute
[2018-02-06] MEDS: Insulin Detemir 100 Units/ml Inj SC SCH (22:24)
[2018-02-07] MEDS: Morphine 15 mg Immediate Release Tab PO PRN ×2 (01:23→20:46)
--- NOTE | 2018-02-07 06:45 | CP.PCM.PN ---
Subjective - Date & Time of Evaluation Date of Evaluation: 02/06/18 Time of Evaluation: 19:30 - Subjective Subjective: Patient reports some mild sob; otherwise, no nausea/vomiting; BM yesterday; Objective - Vital Signs/Intake and Output Vital Signs (last 24 hours): Temp Pulse Resp BP Pulse Ox 98.9 F 74 18 126/71 97 02/07/18 00:00 02/07/18 00:00 02/07/18 00:00 02/07/18 00:00 02/07/18 00:00 Intake and Output: 02/06/18 02/07/18 18:59 06:59 Intake Total 400 Output Total 400 Balance 0 - Medications Medications: Current Medications Acetaminophen (Tylenol 325mg Tab) 650 mg PO Q6 PRN PRN Reason: Pain, Mild (1-3) Last Admin: 02/05/18 22:01 Dose: 650 mg Aspirin (Aspirin Chewable) 81 mg PO DAILY [facility] Last Admin: 02/06/18 08:40 Dose: 81 mg Atorvastatin Calcium (Lipitor) 40 mg PO HS [facility] Last Admin: 02/06/18 21:12 Dose: 40 mg Benzocaine/Menthol (Cepacol Sore Throat) 1 grazyna PO Q2 PRN PRN Reason: Sore Throat Last Admin: 01/27/18 11:03 Dose: 1 grazyna Carvedilol (Coreg) 3.125 mg PO Q12 [facility] Last Admin: 02/06/18 21:03 Dose: 3.125 mg Clopidogrel Bisulfate (Plavix) 75 mg PO DAILY [facility] Last Admin: 02/06/18 08:41 Dose: 75 mg Dextrose (Dextrose 50% Inj) 0 ml IV STAT PRN; Protocol PRN Reason: Hypoglycemia Protocol Dextrose (Glutose 15) 0 gm PO ONCE PRN; Protocol PRN Reason: Hypoglycemia Protocol Glucagon (Glucagen Diagnostic Kit) 0 mg IM STAT PRN; Protocol PRN Reason: Hypoglycemia Protocol Linezolid (Zyvox 600mg/300ml D5w) 600 mg in 300 mls @ 300 mls/hr IVPB Q12 [facility] PRN Reason: Protocol Last Admin: 02/06/18 21:04 Dose: 300 mls/hr Insulin Detemir (Levemir) 15 units SC [facility] Last Admin: 02/06/18 22:24 Dose: 15 units Insulin Human Regular (Humulin R) 0 units SC [facility] PRN Reason: Protocol Last Admin: 02/06/18 22:23 Dose: Not Given Lidocaine (Lidoderm) 2 ea TD DAILY [facility] Last Admin: 02/06/18 08:41 Dose: 2 ea Mirtazapine (Remeron) 30 mg PO HS [facility] Last Admin: 02/06/18 21:12 Dose: 30 mg Morphine Sulfate (Morphine Immediate Release Tab) 15 mg PO Q4 PRN PRN Reason: Pain, moderate (4-7) Last Admin: 02/07/18 01:23 Dose: 15 mg Ondansetron HCl (Zofran Inj) 4 mg IVP Q4 PRN PRN Reason: Nausea/Vomiting Sennosides (Senokot Tab) 17.2 mg PO HS [facility] Last Admin: 02/06/18 21:12 Dose: 17.2 mg - Labs Labs: 02/06/18 07:06 02/06/18 07:06 PT 11.9 Seconds (9.8-13.1) 01/24/18 04:20 INR 1.1 (0.9-1.2) 01/24/18 04:20 APTT 46.2 Seconds (25.6-37.1) H D 01/24/18 04:20 - Constitutional Appears: Non-toxic, No Acute Distress - Eye Exam Eye Exam: absent: Scleral icterus - ENT Exam ENT Exam: Mucous Membranes Moist - Respiratory Exam Respiratory Exam: Clear to Ausculation Bilateral. absent: Respiratory Distress - Cardiovascular Exam Cardiovascular Exam: RRR, +S1, +S2. absent: JVD - GI/Abdominal Exam GI & Abdominal Exam: Soft. absent: Distended, Tenderness - Exam Exam: absent: Bladder Distension - Extremities Exam Additional comments: no leg edema; - Neurological Exam Neurological Exam: Alert, Awake - Psychiatric Exam Psychiatric exam: Normal Mood. absent: Agitated - Skin Skin Exam: Warm. absent: Cyanosis Assessment and Plan (1) Acute kidney injury Assessment & Plan: NAI on CKD; continues to improve off diuretics; may need to restart lasix and low dose SHABBIR inhibitor tomorrow due to CHF status; Status: Acute (2) CKD (chronic kidney disease), stage III Assessment & Plan: Multifactorial; prone to hemodynamic fluctuations of renal function given likely renovascular disease; Status: Chronic (3) Systolic CHF, chronic Assessment & Plan: See above; euvolemic on exam but reports some dyspnea; monitor closely; Status: Acute (4) Anemia Status: Acute (5) PVD (peripheral vascular disease) Status: Chronic
[2018-02-07 06:51] LABS: BASO # 0.1 K/uL (0.0-0.2); BASO % 0.6 % (0.0-2.0); EOS # 0.2 K/uL (0.0-0.7); EOS % 1.3 % (0.0-4.0); HEMOGLOBIN 10.9 g/dL (12.0-16.0); LYMPH # 1.7 K/uL (1.0-4.3); LYMPH % 10.9 % (20.0-40.0); MEAN CELL VOLUME 86.6 fl (81.0-99.0); MEAN CORPUSCULAR HEMOGLOBIN 29.6 pg (27.0-31.0); MEAN CORPUSCULAR HGB CONC 34.2 g/dL (33.0-37.0); MEAN PLATELET VOLUME 10.4 fl (7.2-11.7); MONO # 0.9 K/uL (0.0-0.8); MONO % 5.5 % (0.0-10.0); NEUT # 12.8 K/uL (1.8-7.0); NEUT % 81.7 % (50.0-75.0); RBC 3.67 Mil/uL (3.80-5.20); RED CELL DISTRIBUTION WIDTH 13.6 % (11.5-14.5); WHITE BLOOD COUNT 15.7 K/uL (4.8-10.8)
[2018-02-07 06:59] LABS: CALCIUM 8.6 mg/dL (8.4-10.2)
[2018-02-07] MEDS: Insulin Regular 100 units/ml SC SCH ×4 (07:00→21:44)
--- NOTE | 2018-02-07 07:39 | CP.PCM.PN ---
Subjective - Date & Time of Evaluation Date of Evaluation: 02/07/18 Time of Evaluation: 07:25 - Subjective Subjective: General Surgery Progress Note- Dr. Christian 67 y.o female seen and evaluated at bedside POD#14 of left BKA (DOS: 01/24/18). Patient is seen resting comfortably at bedside, in NAD, alert and awake. Denies acute overnight events. Patient reports that she fell 3 days ago. Currently reports pain at the right eye s/p pain. Denies any other pain elsewhere. No pain to the left lower extremity. Patient denies nausea, fever, shortness of breath, chest pain or chills. No other complaints. Objective - Vital Signs/Intake and Output Vital Signs (last 24 hours): Temp Pulse Resp BP Pulse Ox 98.9 F 74 18 126/71 97 02/07/18 00:00 02/07/18 00:00 02/07/18 00:00 02/07/18 00:00 02/07/18 00:00 Intake and Output: 02/07/18 02/07/18 06:59 18:59 Intake Total 300 Output Total 600 Balance -300 - Medications Medications: Current Medications Acetaminophen (Tylenol 325mg Tab) 650 mg PO Q6 PRN PRN Reason: Pain, Mild (1-3) Last Admin: 02/05/18 22:01 Dose: 650 mg Aspirin (Aspirin Chewable) 81 mg PO DAILY [facility] Last Admin: 02/06/18 08:40 Dose: 81 mg Atorvastatin Calcium (Lipitor) 40 mg PO HS [facility] Last Admin: 02/06/18 21:12 Dose: 40 mg Benzocaine/Menthol (Cepacol Sore Throat) 1 grazyna PO Q2 PRN PRN Reason: Sore Throat Last Admin: 01/27/18 11:03 Dose: 1 grazyna Carvedilol (Coreg) 3.125 mg PO Q12 [facility] Last Admin: 02/06/18 21:03 Dose: 3.125 mg Clopidogrel Bisulfate (Plavix) 75 mg PO DAILY [facility] Last Admin: 02/06/18 08:41 Dose: 75 mg Dextrose (Dextrose 50% Inj) 0 ml IV STAT PRN; Protocol PRN Reason: Hypoglycemia Protocol Dextrose (Glutose 15) 0 gm PO ONCE PRN; Protocol PRN Reason: Hypoglycemia Protocol Glucagon (Glucagen Diagnostic Kit) 0 mg IM STAT PRN; Protocol PRN Reason: Hypoglycemia Protocol Linezolid (Zyvox 600mg/300ml D5w) 600 mg in 300 mls @ 300 mls/hr IVPB Q12 [facility] PRN Reason: Protocol Last Admin: 02/06/18 21:04 Dose: 300 mls/hr Insulin Detemir (Levemir) 15 units SC [facility] Last Admin: 02/06/18 22:24 Dose: 15 units Insulin Human Regular (Humulin R) 0 units SC [facility] PRN Reason: Protocol Last Admin: 02/07/18 07:00 Dose: Not Given Lidocaine (Lidoderm) 2 ea TD DAILY [facility] Last Admin: 02/06/18 08:41 Dose: 2 ea Mirtazapine (Remeron) 30 mg PO [facility] Last Admin: 02/06/18 21:12 Dose: 30 mg Morphine Sulfate (Morphine Immediate Release Tab) 15 mg PO Q4 PRN PRN Reason: Pain, moderate (4-7) Last Admin: 02/07/18 01:23 Dose: 15 mg Ondansetron HCl (Zofran Inj) 4 mg IVP Q4 PRN PRN Reason: Nausea/Vomiting Sennosides (Senokot Tab) 17.2 mg PO [facility] Last Admin: 02/06/18 21:12 Dose: 17.2 mg - Labs Labs: 02/07/18 06:10 02/07/18 06:10 PT 11.9 Seconds (9.8-13.1) 01/24/18 04:20 INR 1.1 (0.9-1.2) 01/24/18 04:20 APTT 46.2 Seconds (25.6-37.1) H D 01/24/18 04:20 - Constitutional Appears: Well, Non-toxic, No Acute Distress - Eye Exam Additional comments: R eye swelling and ecchymosis noted - ENT Exam ENT Exam: Mucous Membranes Moist - Respiratory Exam Respiratory Exam: NORMAL BREATHING PATTERN - Cardiovascular Exam Cardiovascular Exam: +S1, +S2 - GI/Abdominal Exam GI & Abdominal Exam: Soft - Extremities Exam Additional comments: Left BKA surgical site clean dry and intact No dressing needed [place] and suture intact, skin well co-apted and reapproximately, no dehiscence noted No erythema, no streaking, no clinical signs of infection No fluctance or abscess appreciated with palpation Temperature cool to surrounding surgical site - Neurological Exam Neurological Exam: Alert, Awake, Oriented x3 - Psychiatric Exam Psychiatric exam: Normal Affect, Normal Mood Assessment and Plan - Assessment and Plan (Free Text) Assessment: 67F s/p left BKA POD#14 Plan: -Continue physical therapy -Pain control -Further recs discuss with Dr. Christian
--- NOTE | 2018-02-07 08:31 | CP.PCM.PN ---
Subjective - Date & Time of Evaluation Date of Evaluation: 02/07/18 Time of Evaluation: 08:30 - Subjective Subjective: Pt seen and examined at bedside. Pt tolerating PO diet. Able to state her name, , and president. However, she believes shes in podiatry clinic in . Objective - Vital Signs/Intake and Output Vital Signs (last 24 hours): Temp Pulse Resp BP Pulse Ox 98.9 F 74 18 126/71 97 02/07/18 00:00 02/07/18 00:00 02/07/18 00:00 02/07/18 00:00 02/07/18 00:00 Intake and Output: 02/07/18 02/07/18 06:59 18:59 Intake Total 300 Output Total 600 Balance -300 - Medications Medications: Current Medications Acetaminophen (Tylenol 325mg Tab) 650 mg PO Q6 PRN PRN Reason: Pain, Mild (1-3) Last Admin: 02/05/18 22:01 Dose: 650 mg Aspirin (Aspirin Chewable) 81 mg PO DAILY [facility] Last Admin: 02/06/18 08:40 Dose: 81 mg Atorvastatin Calcium (Lipitor) 40 mg PO HS [facility] Last Admin: 02/06/18 21:12 Dose: 40 mg Benzocaine/Menthol (Cepacol Sore Throat) 1 grazyna PO Q2 PRN PRN Reason: Sore Throat Last Admin: 01/27/18 11:03 Dose: 1 grazyna Carvedilol (Coreg) 3.125 mg PO Q12 [facility] Last Admin: 02/06/18 21:03 Dose: 3.125 mg Clopidogrel Bisulfate (Plavix) 75 mg PO DAILY [facility] Last Admin: 02/06/18 08:41 Dose: 75 mg Dextrose (Dextrose 50% Inj) 0 ml IV STAT PRN; Protocol PRN Reason: Hypoglycemia Protocol Dextrose (Glutose 15) 0 gm PO ONCE PRN; Protocol PRN Reason: Hypoglycemia Protocol Glucagon (Glucagen Diagnostic Kit) 0 mg IM STAT PRN; Protocol PRN Reason: Hypoglycemia Protocol Linezolid (Zyvox 600mg/300ml D5w) 600 mg in 300 mls @ 300 mls/hr IVPB Q12 [facility] PRN Reason: Protocol Last Admin: 02/06/18 21:04 Dose: 300 mls/hr Insulin Detemir (Levemir) 15 units SC [facility] Last Admin: 02/06/18 22:24 Dose: 15 units Insulin Human Regular (Humulin R) 0 units SC [facility] PRN Reason: Protocol Last Admin: 02/07/18 07:00 Dose: Not Given Lidocaine (Lidoderm) 2 ea TD DAILY [facility] Last Admin: 02/06/18 08:41 Dose: 2 ea Mirtazapine (Remeron) 30 mg PO [facility] Last Admin: 02/06/18 21:12 Dose: 30 mg Morphine Sulfate (Morphine Immediate Release Tab) 15 mg PO Q4 PRN PRN Reason: Pain, moderate (4-7) Last Admin: 02/07/18 01:23 Dose: 15 mg Ondansetron HCl (Zofran Inj) 4 mg IVP Q4 PRN PRN Reason: Nausea/Vomiting Sennosides (Senokot Tab) 17.2 mg PO [facility] Last Admin: 02/06/18 21:12 Dose: 17.2 mg - Labs Labs: 02/07/18 06:10 02/07/18 06:10 PT 11.9 Seconds (9.8-13.1) 01/24/18 04:20 INR 1.1 (0.9-1.2) 01/24/18 04:20 APTT 46.2 Seconds (25.6-37.1) H D 01/24/18 04:20 - Constitutional Appears: No Acute Distress - Eye Exam Eye Exam: EOMI, Periorbital swelling (R; ecchymosis ) - Respiratory Exam Respiratory Exam: Clear to Ausculation Bilateral, NORMAL BREATHING PATTERN. absent: Wheezes - Cardiovascular Exam Cardiovascular Exam: +S1, +S2 - GI/Abdominal Exam GI & Abdominal Exam: Soft, Normal Bowel Sounds. absent: Tenderness - Extremities Exam Extremities Exam: absent: Calf Tenderness - Neurological Exam Neurological Exam: Abnormal Gait (s/p L BKA), Alert, Altered (Knows name, birthdate, president; Reports being at podiatry clinic in ), Awake Assessment and Plan - Assessment and Plan (Free Text) Plan: 67yo F with PMHx DM2, HTN, HLD, [place], CVA, chronic back pain admitted with left lower extremity limb ischemia s/p L BKA on 01/24/18. Plan: left lower extremity limb ischemia s/p L BKA POD 14 - Vascular surg Dr. Christian, on board - c/w morphine 15mg PO PRN - PT/OT - wound care Leukocytosis, non specific - trending down - ID consut apreciated by Dr Palacios: restarted IV abx - no fever or urine/CXR findings, esteban culture if febrile - c/w linezolid 600 mg Q12 (day 4) - VBG lactate pending - monitor fevers NAI on CKD - improving - Nephro consulted, recs appreciated: consider restarting Lasix and low dose SHABBIR - avoid nephrotoxins - Renal US: unremarkable confusion - possible baseline dementia v ongoing delirium. room change x7 in past 2 weeks , very few family support present throughout the day. - Neuro consulted, recs appreciated: Dr. Andujar: recommend treat underlying electrolyte imbalance. Pt back to baseline - stopped oxycodone, sertraline urinary retention - Dalal (day 3) - urine cx NG final - Urology consulted, Dr. Snell: recommendations appreciated. Coronary Artery Disease - Cardio Dr. Mcdaniel on board - c/w aspirin and plavix Insulin Dependent Type 2 Diabetes - c/w Levemir 12U HS. - Hypoglycemia protocol and insulin coverage scale. - Accuchecks ACHS. - Diabetic diet. reduced EF CHF - Echo 05/22/17: showed EF of 20%. - Continue carvedilol 3.125 BID - stopped furosemide 20mg BID 2/2 NAI on CKD - held isosorbide mononitrate 30 mg and Lisinopril 5mg as BP controlled in setting of NAI and to maintain renal perfusion Depression - held Sertraline 50mg daily for possible contribution to confusion HLD - Continue with Lipitor 40mg HS DTI, sacrum - wound care daily DVT prophylaxis - Levonox 40mcg Lines - PICC 01/20/18 (day 19) - Dalal 02/05/18 Dispo - PT-acute rehab
[2018-02-07] MEDS: Lidocaine 5% Patch TD SCH (08:38)
[2018-02-07] MEDS: Linezolid 600 mg in D5W 300 ml 600 MG/300 ML BAG IVPB SCH ×2 (08:46→20:51)
--- NOTE | 2018-02-07 12:25 | CP.PCM.CON ---
History of Present Illness - History of Present Illness History of Present Illness: Ms. Carias is a 67y/o female with PMHx of DM2, HTN, HLD, [place], CVA, chronic back pain who was sent by her foot roentgenologist for left foot ulcer and discolored 2nd and 3rd digits after been seen in the wound clinic. Pt was last treated for ulceration of left 1st MPJ; she has not follow up since but has been doing daily dressing changes on her own. Pt reports she decided to come to wound care because she ran out of wound supplies and also her pain is out of control currently at a 8/10 especially at the first 3 toes. Pt also has discoloration in her toes that started 5 days ago; denies any trauma or recent falls or long exposure to cold. all other system reviewed and negative. She had a left BKA during this hospitalization.She had episode of confusion wherein , neurology consult was called. Today, she is alert, oriented in all spheres. She denies any headache, dizziness, lightheadedness, blurred vision, nausea, or vomiting. She has ecchymosis noted around her right eye. CT scan of the head done 2017 showed no acute intracranial findings. Review of Systems - Review of Systems All systems: reviewed and no additional remarkable complaints except Past Patient History - Infectious Disease Hx of Infectious Diseases: None - Tetanus Immunizations Tetanus Immunization: Unknown - Past Medical History & Family History Past Medical History?: Yes - Past Social History Smoking Status: Former Smoker - CARDIAC Hx Cardiac Disorders: Yes Hx Hypercholesterolemia: Yes Hx Hypertension: Yes - PULMONARY Hx Respiratory Disorders: No - NEUROLOGICAL HX Cerebrovascular Accident: Yes - HEENT Hx HEENT Problems: No - ENDOCRINE/METABOLIC Hx Diabetes Mellitus Type 2: Yes - HEMATOLOGICAL/ONCOLOGICAL Hx Blood Disorders: No - INTEGUMENTARY Hx Dermatological Problems: No - MUSCULOSKELETAL/RHEUMATOLOGICAL Hx Musculoskeletal Disorders: Yes Hx Falls: Yes (fell 6 months ago) Other/Comment: hx of chronic back pain - GASTROINTESTINAL Hx Gastrointestinal Disorders: No - GENITOURINARY/GYNECOLOGICAL Hx Genitourinary Disorders: No - PSYCHIATRIC Hx Psychophysiologic Disorder: No Hx Substance Use: No - SURGICAL HISTORY Hx Coronary Stent: Yes - ANESTHESIA Hx Malignant Hyperthermia: No Meds Allergies/Adverse Reactions: Allergies Allergy/AdvReac Type Severity Reaction Status Date / Time No Known Allergies Allergy Verified 05/14/16 14:21 - Medications Medications: Current Medications Acetaminophen (Tylenol 325mg Tab) 650 mg PO Q6 PRN PRN Reason: Pain, Mild (1-3) Last Admin: 02/05/18 22:01 Dose: 650 mg Aspirin (Aspirin Chewable) 81 mg PO DAILY [facility] Last Admin: 02/07/18 08:46 Dose: 81 mg Atorvastatin Calcium (Lipitor) 40 mg PO HS [facility] Last Admin: 02/06/18 21:12 Dose: 40 mg Benzocaine/Menthol (Cepacol Sore Throat) 1 grazyna PO Q2 PRN PRN Reason: Sore Throat Last Admin: 01/27/18 11:03 Dose: 1 grazyna Carvedilol (Coreg) 3.125 mg PO Q12 [facility] Last Admin: 02/07/18 08:42 Dose: 3.125 mg Clopidogrel Bisulfate (Plavix) 75 mg PO DAILY [facility] Last Admin: 02/07/18 08:45 Dose: 75 mg Dextrose (Dextrose 50% Inj) 0 ml IV STAT PRN; Protocol PRN Reason: Hypoglycemia Protocol Dextrose (Glutose 15) 0 gm PO ONCE PRN; Protocol PRN Reason: Hypoglycemia Protocol Glucagon (Glucagen Diagnostic Kit) 0 mg IM STAT PRN; Protocol PRN Reason: Hypoglycemia Protocol Linezolid (Zyvox 600mg/300ml D5w) 600 mg in 300 mls @ 300 mls/hr IVPB Q12 [facility] PRN Reason: Protocol Last Admin: 02/07/18 08:46 Dose: 300 mls/hr Insulin Detemir (Levemir) 15 units SC HS [facility] Last Admin: 02/06/18 22:24 Dose: 15 units Insulin Human Regular (Humulin R) 0 units SC ACHS [facility] PRN Reason: Protocol Last Admin: 02/07/18 07:00 Dose: Not Given Lidocaine (Lidoderm) 2 ea TD DAILY [facility] Last Admin: 02/07/18 08:38 Dose: 2 ea Mirtazapine (Remeron) 30 mg PO HS [facility] Last Admin: 02/06/18 21:12 Dose: 30 mg Morphine Sulfate (Morphine Immediate Release Tab) 15 mg PO Q4 PRN PRN Reason: Pain, moderate (4-7) Last Admin: 02/07/18 01:23 Dose: 15 mg Ondansetron HCl (Zofran Inj) 4 mg IVP Q4 PRN PRN Reason: Nausea/Vomiting Sennosides (Senokot Tab) 17.2 mg PO HS [facility] Last Admin: 02/06/18 21:12 Dose: 17.2 mg Physical Exam - Constitutional Appears: Well, No Acute Distress - Head Exam Head Exam: NORMAL INSPECTION - Eye Exam Pupil Exam: Miosis, PERRL - Neck Exam Neck exam: Positive for: Normal Inspection - Respiratory Exam Respiratory Exam: Clear to Auscultation Bilateral, NORMAL BREATHING PATTERN - Cardiovascular Exam Cardiovascular Exam: +S1, +S2 - GI/Abdominal Exam GI & Abdominal Exam: Normal Bowel Sounds, Soft. absent: Tenderness - Exam Additional comments: with zelaya catheter - Extremities Exam Additional comments: left BKA with immobilizer. - Neurological Exam Neurological exam: Alert, CN II-XII Intact, Oriented x3, Reflexes Normal - Expanded Neurological Exam Expanded Patient oriented to: person, place, time Cranial nerves: EOM's Intact: Normal, Facial Palsey w/Forehead Movement: Normal , Facial Sensation: Normal, Gag Reflex: Normal, Tongue Deviation: Normal Ataxia: No Cerebellar Function: Finger to Nose: Normal Upper motor neuron: Babinski Sign: Normal, Pronator Drift: Normal, Sensory Extinction: Normal Sensory exam: Lower Extremity 2 Point Discrimination: Abnormal Right, Lower Extremity Light Touch: Normal, Lower Extremity Pin Prick: Normal, Lower Extremity Temperature: Normal, Upper Extremity 2 Point Discrimination: Normal, Upper Extremity Light Touch: Normal, Upper Extremity Pin Prick: Normal, Upper Extremity Temperature: Normal Neuro motor strength exam: Left Upper Extremity: 4, Right Upper Extremity: 4, Left Lower Extremity: 2/1, Right Lower Extremity: 3 Results - Vital Signs Recent Vital Signs: Last Vital Signs Temp 98.3 F 02/07/18 09:22 Pulse 68 02/07/18 09:22 Resp 20 02/07/18 09:22 BP 154/65 H 02/07/18 09:22 Pulse Ox 95 02/07/18 09:22 - Labs Result Diagrams: 02/07/18 06:10 02/07/18 06:10 Labs: Laboratory Results - last 24 hr 02/06/18 02/06/18 02/07/18 16:08 21:53 05:37 WBC RBC Hgb Hct MCV MCH MCHC RDW Plt Count MPV Neut % (Auto) Lymph % (Auto) Story % (Auto) Eos % (Auto) Baso % (Auto) Neut # (Auto) Lymph # (Auto) Story # (Auto) Eos # (Auto) Baso # (Auto) Sodium Potassium Chloride Carbon Dioxide Anion Gap BUN Creatinine Est GFR ( Amer) Est GFR (Non-Af Amer) POC Glucose (mg/dL) 196 H 152 H 103 Random Glucose Calcium 02/07/18 02/07/18 06:10 06:10 WBC 15.7 H RBC 3.67 L Hgb 10.9 L Hct 31.7 L MCV 86.6 MCH 29.6 MCHC 34.2 RDW 13.6 Plt Count 270 MPV 10.4 Neut % (Auto) 81.7 H Lymph % (Auto) 10.9 L Story % (Auto) 5.5 Eos % (Auto) 1.3 Baso % (Auto) 0.6 Neut # (Auto) 12.8 H Lymph # (Auto) 1.7 Story # (Auto) 0.9 H Eos # (Auto) 0.2 Baso # (Auto) 0.1 Sodium 135 Potassium 4.0 Chloride 96 L Carbon Dioxide 28 Anion Gap 15 BUN 41 H Creatinine 1.7 H Est GFR ( Amer) 36 Est GFR (Non-Af Amer) 30 POC Glucose (mg/dL) Random Glucose 97 Calcium 8.6 Assessment & Plan (1) Encephalopathy acute Assessment and Plan: Ms. Carias is a 67y/o female with PMHx of DM2, HTN, HLD, [place], CVA, chronic back pain who was sent by her foot roentgenologist for left foot ulcer and discolored 2nd and 3rd digits after been seen in the wound clinic. Pt was last treated for ulceration of left 1st MPJ. She had left BKA during this admission. Case discussed with Dr. Andujar, recommend to treat any underlying electrolyte abnormalities. Neurology is signing off from this case since patient is back to her baseline. Status: Acute
--- NOTE | 2018-02-07 17:52 | CT ---
PROCEDURE: CT right upper extremity HISTORY: Fall that occurred on 02/04 now with decreased ROM COMPARISON: 02/04/2018 right shoulder radiographs TECHNIQUE: 2.5 mm axial acquisition and display. Coronal and sagittal reconstructions. Dose report (mGy-cm): 197.37 FINDINGS: No acute osseous, articular or soft tissue abnormalities. Mild degenerative changes glenohumeral relationship. Negative study for clavicular, scapular, humeral fracture. No abnormalities visualized thorax including limited assessment of ribs and pulmonary parenchyma Degenerative changes- acromioclavicular joint categorized as mild PICC line in satisfactory position IMPRESSION: No acute findings related to/accounting for the clinical presentation.
--- NOTE | 2018-02-07 19:21 | CP.PCM.PN ---
Subjective - Date & Time of Evaluation Date of Evaluation: 02/07/18 Time of Evaluation: 19:00 - Subjective Subjective: Patient reports some sob; not much appetite; Objective - Vital Signs/Intake and Output Vital Signs (last 24 hours): Temp Pulse Resp BP Pulse Ox 97.6 F 69 20 108/60 97 02/07/18 15:56 02/07/18 15:56 02/07/18 15:56 02/07/18 15:56 02/07/18 15:56 Intake and Output: 02/07/18 02/08/18 18:59 06:59 Intake Total 540 Output Total 300 Balance 240 - Medications Medications: Current Medications Acetaminophen (Tylenol 325mg Tab) 650 mg PO Q6 PRN PRN Reason: Pain, Mild (1-3) Last Admin: 02/05/18 22:01 Dose: 650 mg Aspirin (Aspirin Chewable) 81 mg PO DAILY [facility] Last Admin: 02/07/18 08:46 Dose: 81 mg Atorvastatin Calcium (Lipitor) 40 mg PO HS [facility] Last Admin: 02/06/18 21:12 Dose: 40 mg Benzocaine/Menthol (Cepacol Sore Throat) 1 grazyna PO Q2 PRN PRN Reason: Sore Throat Last Admin: 01/27/18 11:03 Dose: 1 grazyna Carvedilol (Coreg) 3.125 mg PO Q12 [facility] Last Admin: 02/07/18 08:42 Dose: 3.125 mg Clopidogrel Bisulfate (Plavix) 75 mg PO DAILY [facility] Last Admin: 02/07/18 08:45 Dose: 75 mg Dextrose (Dextrose 50% Inj) 0 ml IV STAT PRN; Protocol PRN Reason: Hypoglycemia Protocol Dextrose (Glutose 15) 0 gm PO ONCE PRN; Protocol PRN Reason: Hypoglycemia Protocol Glucagon (Glucagen Diagnostic Kit) 0 mg IM STAT PRN; Protocol PRN Reason: Hypoglycemia Protocol Linezolid (Zyvox 600mg/300ml D5w) 600 mg in 300 mls @ 300 mls/hr IVPB Q12 [facility] PRN Reason: Protocol Last Admin: 02/07/18 08:46 Dose: 300 mls/hr Insulin Detemir (Levemir) 15 units SC HS [facility] Last Admin: 02/06/18 22:24 Dose: 15 units Insulin Human Regular (Humulin R) 0 units SC ACHS [facility] PRN Reason: Protocol Last Admin: 02/07/18 17:28 Dose: 3 units Lidocaine (Lidoderm) 2 ea TD DAILY [facility] Last Admin: 02/07/18 08:38 Dose: 2 ea Mirtazapine (Remeron) 30 mg PO HS [facility] Last Admin: 02/06/18 21:12 Dose: 30 mg Morphine Sulfate (Morphine Immediate Release Tab) 15 mg PO Q4 PRN PRN Reason: Pain, moderate (4-7) Last Admin: 02/07/18 01:23 Dose: 15 mg Ondansetron HCl (Zofran Inj) 4 mg IVP Q4 PRN PRN Reason: Nausea/Vomiting Sennosides (Senokot Tab) 17.2 mg PO HS [facility] Last Admin: 02/06/18 21:12 Dose: 17.2 mg - Labs Labs: 02/07/18 06:10 02/07/18 06:10 PT 11.9 Seconds (9.8-13.1) 01/24/18 04:20 INR 1.1 (0.9-1.2) 01/24/18 04:20 APTT 46.2 Seconds (25.6-37.1) H D 01/24/18 04:20 - Constitutional Appears: Non-toxic, No Acute Distress - Eye Exam Eye Exam: absent: Scleral icterus - ENT Exam ENT Exam: Mucous Membranes Moist - Respiratory Exam Respiratory Exam: Clear to Ausculation Bilateral. absent: Respiratory Distress - Cardiovascular Exam Cardiovascular Exam: RRR, +S1, +S2. absent: Gallop - GI/Abdominal Exam GI & Abdominal Exam: Soft, Tenderness - Extremities Exam Additional comments: no leg edema; - Neurological Exam Neurological Exam: Alert, Awake - Psychiatric Exam Psychiatric exam: Normal Mood. absent: Agitated - Skin Skin Exam: Warm. absent: Cyanosis Assessment and Plan (1) Acute kidney injury Assessment & Plan: NAI on CKD IIIA; multifactorial, may have component of ATN due to having been on vanco; otherwise, renal function stable and improved but not yet at baseline; -avoid nephrotoxic agents -if CHF status worsens, should restart diuretics (lasix PO 20 mg bid) and low dose SHABBIR inhibitor even though creatinine will increase; Status: Acute (2) CKD (chronic kidney disease), stage III Assessment & Plan: Proteinuric kidney disease; will benefit from being on LUIS blockade half-way; once renal function stabilizes, should quantify proteinuria; Status: Chronic (3) Systolic CHF, chronic Assessment & Plan: Appears euvolemic on exam; see above; Status: Acute (4) Anemia Status: Acute (5) PVD (peripheral vascular disease) Status: Chronic
[2018-02-07] MEDS: Insulin Detemir 100 Units/ml Inj SC SCH (21:45)
--- NOTE | 2018-02-08 00:41 | CON ---
DATE: 02/07/2018 COMPREHENSIVE UROLOGIC CONSULTATION TIME OF CONSULTATION: Roughly 7:15 p.m. HISTORY OF PRESENT ILLNESS: The patient is 67-year-old female from [place],status post a left BK amputation on 01/24/2018, who went into acute urinary retention on Wednesday02/04/2018 requiring a Dalal catheterization. The patient says this is her first episode of urinary retention. She has no prior history of any kidney disease or kidney stones. She is 7, para 8 with twins. She does not consume any antihistamines or any anti muscarinic or anticholinergic medications. SOCIAL HISTORY: She has no history of any alcohol use or tobacco use. ALLERGIES: NO KNOWN ALLERGIES TO ANY MEDICATION. PHYSICAL EXAMINATION: ABDOMEN: Soft and not distended or tender. No CVA tenderness and no suprapubic tenderness. GENITOURINARY: Dalal catheter is draining katiuska urine well. EXTREMITIES: The patient is admitted for treatment of gangrene of the lower extremity. LABORATORY DATA: CBC today 02/07/2018 shows a WBC count of 15.7, hemoglobin of 10.9, hematocrit of 31.7, and platelet count was 270,000. Chem profile shows a sodium of 135, potassium of 4.0,chloride of 96, CO2 of 28, and BUN and creatinine of 41 and 1.7 respectively with a GFR of 30 indicating chronic kidney disease stag e III. Random glucose was 216. Urinalysis on 02/04/2018 shows the color was yellow, slightly cloudy, pH 5.0, specific gravity 1.012, protein 100, glucose of 50, ketones negative, blood moderate, nitrite negative, bilirubin negative, and urobilinogen of 0.2 to 1.0. Leukocyte esterase negative, 7 rbc's, and on 02/02/2018 there was rare bacteria per high-power field. RADIOLOGIC DATA: Renal ultrasound done on 02/05/2018 showed no stone, solid mass lesion or hydronephrosis visualized. Diagnosis for the renal ultrasound was unremarkable renal ultrasound. DIAGNOSTIC IMPRESSION: For this patient is: 1. Urinary retention. 2. Microscopic hematuria. PLAN: For this patient is to start the patient on intermittent catheterization every 8 hours in the a.m. and chart voided urine amounts and postvoid residual amounts. We will also start the patient on Flomax 0.4 mg daily. If the patient starts voiding urine and the residual amounts drop below 250 mL, we can stop the intermittent catheterization. The patient's original residual urine when catheterized on Wednesday02/04/2018 was somewhere between 500 and 600 mL. Urine C and S done on 02/04/2018 showed no growth. Stefano Snell MD MTDD
[2018-02-08 06:47] LABS: HEMOGLOBIN 10.8 g/dL (12.0-16.0); MEAN CELL VOLUME 86.7 fl (81.0-99.0); MEAN CORPUSCULAR HGB CONC 33.4 g/dL (33.0-37.0); RBC 3.72 Mil/uL (3.80-5.20); RED CELL DISTRIBUTION WIDTH 13.5 % (11.5-14.5); WHITE BLOOD COUNT 14.5 K/uL (4.8-10.8)
[2018-02-08] MEDS: Insulin Regular 100 units/ml SC SCH ×4 (06:47→21:21)
[2018-02-08 06:58] LABS: CALCIUM 8.7 mg/dL (8.4-10.2)
--- NOTE | 2018-02-08 07:23 | PCM.PROC ---
Procedures Attestation:: I certify that I have explained the specified Operation(s) or Procedure(s), risks, benefits and reasonable alternatives to the Patient and/or other person responsible. The opportunity was given to ask questions and all questions answered - Rectal Disimpaction Time Out Performed: Yes Indication: Fecal Impaction Procedural Sedation: No Sedation/Analgesia: None Technique: Manual Disimpaction with Gloved Finger (and lubrication) Result: Significant Stool Output (with significant residual stool in sigmoid colon) Patient Tolerated Procedure: Well, No Complications Complications: None
--- NOTE | 2018-02-08 08:44 | CP.PCM.PN ---
Subjective - Date & Time of Evaluation Date of Evaluation: 02/08/18 Time of Evaluation: 08:00 - Subjective Subjective: Pt seen and examined at bedside. Denied significant overnight events. Reports improved R shoulder discomfort. Attempting to increase PO diet. Denies CP/SOB/N/ V. Objective - Vital Signs/Intake and Output Vital Signs (last 24 hours): Temp Pulse Resp BP Pulse Ox 98.8 F 69 20 120/68 96 02/08/18 08:13 02/08/18 08:13 02/08/18 08:13 02/08/18 08:13 02/08/18 08:13 Intake and Output: 02/08/18 02/08/18 06:59 18:59 Intake Total 300 Output Total 750 Balance -450 - Medications Medications: Current Medications Acetaminophen (Tylenol 325mg Tab) 650 mg PO Q6 PRN PRN Reason: Pain, Mild (1-3) Last Admin: 02/05/18 22:01 Dose: 650 mg Aspirin (Aspirin Chewable) 81 mg PO DAILY [facility] Last Admin: 02/07/18 08:46 Dose: 81 mg Atorvastatin Calcium (Lipitor) 40 mg PO HS [facility] Last Admin: 02/07/18 21:29 Dose: 40 mg Benzocaine/Menthol (Cepacol Sore Throat) 1 grazyna PO Q2 PRN PRN Reason: Sore Throat Last Admin: 01/27/18 11:03 Dose: 1 grazyna Carvedilol (Coreg) 3.125 mg PO Q12 [facility] Last Admin: 02/07/18 20:47 Dose: 3.125 mg Clopidogrel Bisulfate (Plavix) 75 mg PO DAILY [facility] Last Admin: 02/07/18 08:45 Dose: 75 mg Dextrose (Dextrose 50% Inj) 0 ml IV STAT PRN; Protocol PRN Reason: Hypoglycemia Protocol Dextrose (Glutose 15) 0 gm PO ONCE PRN; Protocol PRN Reason: Hypoglycemia Protocol Glucagon (Glucagen Diagnostic Kit) 0 mg IM STAT PRN; Protocol PRN Reason: Hypoglycemia Protocol Linezolid (Zyvox 600mg/300ml D5w) 600 mg in 300 mls @ 300 mls/hr IVPB Q12 [facility] PRN Reason: Protocol Last Admin: 02/07/18 20:51 Dose: 300 mls/hr Insulin Detemir (Levemir) 15 units SC [facility] Last Admin: 02/07/18 21:45 Dose: 15 units Insulin Human Regular (Humulin R) 0 units SC ACHS [facility] PRN Reason: Protocol Last Admin: 02/08/18 06:47 Dose: Not Given Lidocaine (Lidoderm) 2 ea TD DAILY [facility] Last Admin: 02/07/18 08:38 Dose: 2 ea Mirtazapine (Remeron) 30 mg PO HS [facility] Last Admin: 02/07/18 21:29 Dose: 30 mg Morphine Sulfate (Morphine Immediate Release Tab) 15 mg PO Q4 PRN PRN Reason: Pain, moderate (4-7) Last Admin: 02/07/18 20:46 Dose: 15 mg Ondansetron HCl (Zofran Inj) 4 mg IVP Q4 PRN PRN Reason: Nausea/Vomiting Sennosides (Senokot Tab) 17.2 mg PO HS [facility] Last Admin: 02/07/18 21:29 Dose: 17.2 mg Tamsulosin HCl (Flomax) 0.4 mg PO DAILY [facility] - Labs Labs: 02/08/18 06:40 02/08/18 06:40 PT 11.9 Seconds (9.8-13.1) 01/24/18 04:20 INR 1.1 (0.9-1.2) 01/24/18 04:20 APTT 46.2 Seconds (25.6-37.1) H D 01/24/18 04:20 - Constitutional Appears: No Acute Distress - Eye Exam Eye Exam: EOMI - Neck Exam Neck Exam: Full ROM - Respiratory Exam Respiratory Exam: Clear to Ausculation Bilateral, NORMAL BREATHING PATTERN. absent: Wheezes - Cardiovascular Exam Cardiovascular Exam: +S1, +S2 - GI/Abdominal Exam GI & Abdominal Exam: Soft. absent: Tenderness - Extremities Exam Extremities Exam: absent: Calf Tenderness Additional comments: L bka; R lower extremity sensation and motor grossly intact - Neurological Exam Neurological Exam: Alert, Awake, Oriented x3 - Psychiatric Exam Psychiatric exam: Normal Affect, Normal Mood Assessment and Plan - Assessment and Plan (Free Text) Plan: 67yo F with PMHx DM2, HTN, HLD, [place], CVA, chronic back pain admitted with left lower extremity limb ischemia s/p L BKA on 01/24/18. Plan: left lower extremity limb ischemia s/p L BKA POD 15 - Vascular surg Dr. Christian, on board - c/w morphine 15mg PO PRN - PT/OT: continuted therapy - wound care Leukocytosis, non specific - trending down - ID consut apreciated by Dr Palacios: restarted IV abx - no fever or urine/CXR findings, esteban culture if febrile - c/w linezolid 600 mg Q12 (day 4) - VBG lactate pending - monitor for fevers NAI on CKD - improving - Nephro consulted, recs appreciated: consider restarting Lasix and low dose SHABBIR - avoid nephrotoxins - Renal US: unremarkable confusion - possible baseline dementia v ongoing delirium. room change x7 in past 2 weeks , very few family support present throughout the day. - Neuro consulted, recs appreciated: Dr. Andujar: recommend treat underlying electrolyte imbalance. - stopped oxycodone, sertraline urinary retention - Dalal (day 3) - urine cx NG final - Urology consulted, Dr. Snell: recommendations appreciated: intermittent catheterization in AM for 8 hrs; chart voided urine and post void residual. may d/c if post void is <250 ml Coronary Artery Disease - Cardio Dr. Mcdaniel on board: recommendations appreciated - c/w aspirin and plavix Insulin Dependent Type 2 Diabetes - c/w Levemir 12U HS. - Hypoglycemia protocol and insulin coverage scale. - Accuchecks ACHS. - Diabetic diet. reduced EF CHF - Echo 05/22/17: showed EF of 20%. - Continue carvedilol 3.125 BID - stopped furosemide 20mg BID 2/2 NAI on CKD - held isosorbide mononitrate 30 mg and Lisinopril 5mg as BP controlled in setting of NAI and to maintain renal perfusion R shoulder pain - s/p fall - upper extremity CT: no acute findings Depression - held Sertraline 50mg daily for possible contribution to confusion - Remeron HLD - Continue with Lipitor 40mg HS DTI, sacrum - wound care daily DVT prophylaxis - Levonox 40mcg Lines - PICC 01/20/18 (day 19) - Dalal: intermittent catheterization Dispo - PT-acute rehab
[2018-02-08] MEDS: Linezolid 600 mg in D5W 300 ml 600 MG/300 ML BAG IVPB SCH ×2 (08:47→20:52)
[2018-02-08] MEDS: Lidocaine 5% Patch TD SCH (08:48)
[2018-02-08] MEDS: Morphine 15 mg Immediate Release Tab PO PRN (09:09)
[2018-02-08] MEDS: Insulin Detemir 100 Units/ml Inj SC SCH (21:22)
--- NOTE | 2018-02-09 06:37 | CP.PCM.PN ---
Subjective - Date & Time of Evaluation Date of Evaluation: 02/08/18 Time of Evaluation: 13:15 - Subjective Subjective: Again reporting shortness of breath; Objective - Vital Signs/Intake and Output Vital Signs (last 24 hours): Temp Pulse Resp BP Pulse Ox 98.3 F 74 18 135/74 96 02/08/18 23:51 02/08/18 23:51 02/08/18 23:51 02/08/18 23:51 02/08/18 23:51 Intake and Output: 02/08/18 02/09/18 18:59 06:59 Intake Total 600 Output Total 1100 Balance -500 - Medications Medications: Current Medications Acetaminophen (Tylenol 325mg Tab) 650 mg PO Q6 PRN PRN Reason: Pain, Mild (1-3) Last Admin: 02/08/18 16:54 Dose: 650 mg Acetaminophen (Tylenol 325mg Tab) 325 mg PO BID [facility] [place] Last Admin: 02/08/18 17:06 Dose: Not Given Aspirin (Aspirin Chewable) 81 mg PO DAILY [facility] Last Admin: 02/08/18 08:47 Dose: 81 mg Atorvastatin Calcium (Lipitor) 40 mg PO HS [facility] Last Admin: 02/08/18 21:21 Dose: 40 mg Benzocaine/Menthol (Cepacol Sore Throat) 1 grazyna PO Q2 PRN PRN Reason: Sore Throat Last Admin: 01/27/18 11:03 Dose: 1 grazyna Carvedilol (Coreg) 3.125 mg PO Q12 [facility] [place] Last Admin: 02/08/18 20:54 Dose: 3.125 mg Clopidogrel Bisulfate (Plavix) 75 mg PO DAILY [facility] [place] Last Admin: 02/08/18 08:47 Dose: 75 mg Dextrose (Dextrose 50% Inj) 0 ml IV STAT PRN; Protocol PRN Reason: Hypoglycemia Protocol Dextrose (Glutose 15) 0 gm PO ONCE PRN; Protocol PRN Reason: Hypoglycemia Protocol Glucagon (Glucagen Diagnostic Kit) 0 mg IM STAT PRN; Protocol PRN Reason: Hypoglycemia Protocol Linezolid (Zyvox 600mg/300ml D5w) 600 mg in 300 mls @ 300 mls/hr IVPB Q12 DAS[facility]WN PRN Reason: Protocol Last Admin: 02/08/18 20:52 Dose: 300 mls/hr Insulin Detemir (Levemir) 15 units SC [facility] Last Admin: 02/08/18 21:22 Dose: 15 units Insulin Human Regular (Humulin R) 0 units SC ACHS [facility] PRN Reason: Protocol Last Admin: 02/08/18 21:21 Dose: Not Given Lactic Acid (Lac-Hydrin 12% Lotion (225 G)) 1 applic TOP TID PRN PRN Reason: Itching / Pruritus Lactulose (Enulose) 10 gm PO DAILY [facility] Lidocaine (Lidoderm) 3 ea TD DAILY [facility] Mirtazapine (Remeron) 30 mg PO [facility] Last Admin: 02/08/18 21:21 Dose: 30 mg Morphine Sulfate (Morphine Immediate Release Tab) 15 mg PO Q4 PRN PRN Reason: Pain, moderate (4-7) Last Admin: 02/08/18 09:09 Dose: 15 mg Ondansetron HCl (Zofran Inj) 4 mg IVP Q4 PRN PRN Reason: Nausea/Vomiting Sennosides (Senokot Tab) 17.2 mg PO [facility] Last Admin: 02/08/18 21:20 Dose: 17.2 mg Tamsulosin HCl (Flomax) 0.4 mg PO DAILY [facility] Last Admin: 02/08/18 08:47 Dose: 0.4 mg - Labs Labs: 02/08/18 06:40 02/08/18 06:40 PT 11.9 Seconds (9.8-13.1) 01/24/18 04:20 INR 1.1 (0.9-1.2) 01/24/18 04:20 APTT 46.2 Seconds (25.6-37.1) H D 01/24/18 04:20 - Constitutional Appears: Non-toxic, No Acute Distress - Eye Exam Eye Exam: absent: Scleral icterus - ENT Exam ENT Exam: Mucous Membranes Moist - Respiratory Exam Respiratory Exam: Clear to Ausculation Bilateral. absent: Respiratory Distress - Cardiovascular Exam Cardiovascular Exam: RRR, +S1, +S2. absent: Gallop - GI/Abdominal Exam GI & Abdominal Exam: Soft. absent: Distended, Tenderness - Exam Exam: absent: Bladder Distension - Extremities Exam Additional comments: no leg edema; - Neurological Exam Neurological Exam: Alert, Awake - Psychiatric Exam Psychiatric exam: Normal Affect, Normal Mood. absent: Agitated - Skin Skin Exam: Warm. absent: Cyanosis Assessment and Plan (1) Acute kidney injury Assessment & Plan: NAI on CKD IIIA; serum creatinine at relative plateau, still well above baseline ; need to ensure patient does not receive any nephrotoxic agents (received fleets phosphate enema which can cause acute renal failure due to high phos load ); otherwise, stable volume and electrolyte status; -continue to hold ARB and diuretics for now (unless patient showing any signs of CHF); -use mineral oil or tap water enema if needed Status: Acute (2) CKD (chronic kidney disease), stage III Status: Chronic (3) Systolic CHF, chronic Assessment & Plan: Reports dyspnea but appears euvolemic on exam; monitor closely; Status: Chronic (4) Anemia Assessment & Plan: Stable, checking iron studies; Status: Chronic (5) PVD (peripheral vascular disease) Status: Chronic
[2018-02-09 06:45] LABS: HEMOGLOBIN 10.8 g/dL (12.0-16.0); MEAN CELL VOLUME 86.5 fl (81.0-99.0); MEAN CORPUSCULAR HEMOGLOBIN 28.6 pg (27.0-31.0); MEAN CORPUSCULAR HGB CONC 33.1 g/dL (33.0-37.0); RBC 3.79 Mil/uL (3.80-5.20); RED CELL DISTRIBUTION WIDTH 13.3 % (11.5-14.5); WHITE BLOOD COUNT 14.4 K/uL (4.8-10.8)
[2018-02-09 06:59] LABS: CALCIUM 8.9 mg/dL (8.4-10.2)
[2018-02-09 08:07] LABS: IRON 34 ug/dL (37-170)
[2018-02-09 08:16] LABS: % IRON SATURATION 18 % (20-55); TOTAL IRON BINDING CAPACITY 186 ug/dL (250-450)
[2018-02-09] MEDS: Insulin Regular 100 units/ml SC SCH ×4 (08:25→22:16)
[2018-02-09] MEDS: Morphine 15 mg Immediate Release Tab PO PRN ×2 (08:47→18:51)
[2018-02-09] MEDS: Lidocaine 5% Patch TD SCH (08:50)
[2018-02-09] MEDS: Linezolid 600 mg in D5W 300 ml 600 MG/300 ML BAG IVPB SCH ×2 (09:26→21:41)
--- NOTE | 2018-02-09 09:31 | CP.PCM.PN ---
Subjective - Date & Time of Evaluation Date of Evaluation: 02/09/18 Time of Evaluation: 08:40 - Subjective Subjective: Pt seen and examined at bedside. Denies significant overnight events. Denies CP/ SOB/N/V. Pt tolerating PO diet. Denies blurred vision. Last bm was yesterday. Objective - Vital Signs/Intake and Output Vital Signs (last 24 hours): Temp Pulse Resp BP Pulse Ox 98.5 F 71 20 124/68 97 02/09/18 08:31 02/09/18 08:31 02/09/18 08:31 02/09/18 08:31 02/09/18 08:31 - Medications Medications: Current Medications Acetaminophen (Tylenol 325mg Tab) 650 mg PO Q6 PRN PRN Reason: Pain, Mild (1-3) Last Admin: 02/08/18 16:54 Dose: 650 mg Acetaminophen (Tylenol 325mg Tab) 325 mg PO BID [facility] Last Admin: 02/08/18 17:06 Dose: Not Given Aspirin (Aspirin Chewable) 81 mg PO DAILY [facility] Last Admin: 02/09/18 08:49 Dose: 81 mg Atorvastatin Calcium (Lipitor) 40 mg PO HS [facility] Last Admin: 02/08/18 21:21 Dose: 40 mg Benzocaine/Menthol (Cepacol Sore Throat) 1 grazyna PO Q2 PRN PRN Reason: Sore Throat Last Admin: 01/27/18 11:03 Dose: 1 grazyna Carvedilol (Coreg) 3.125 mg PO Q12 [facility] Last Admin: 02/09/18 09:26 Dose: 3.125 mg Clopidogrel Bisulfate (Plavix) 75 mg PO DAILY [facility] Last Admin: 02/09/18 08:48 Dose: 75 mg Dextrose (Dextrose 50% Inj) 0 ml IV STAT PRN; Protocol PRN Reason: Hypoglycemia Protocol Dextrose (Glutose 15) 0 gm PO ONCE PRN; Protocol PRN Reason: Hypoglycemia Protocol Glucagon (Glucagen Diagnostic Kit) 0 mg IM STAT PRN; Protocol PRN Reason: Hypoglycemia Protocol Linezolid (Zyvox 600mg/300ml D5w) 600 mg in 300 mls @ 300 mls/hr IVPB Q12 [facility] PRN Reason: Protocol Last Admin: 02/09/18 09:26 Dose: 300 mls/hr Insulin Detemir (Levemir) 15 units SC [facility] Last Admin: 02/08/18 21:22 Dose: 15 units Insulin Human Regular (Humulin R) 0 units SC ACHS [facility] PRN Reason: Protocol Last Admin: 02/09/18 08:25 Dose: Not Given Lactic Acid (Lac-Hydrin 12% Lotion (225 G)) 1 applic TOP TID PRN PRN Reason: Itching / Pruritus Lactulose (Enulose) 10 gm PO DAILY [facility] Lidocaine (Lidoderm) 3 ea TD DAILY [facility] Last Admin: 02/09/18 08:50 Dose: 3 ea Mirtazapine (Remeron) 30 mg PO [facility] Last Admin: 02/08/18 21:21 Dose: 30 mg Morphine Sulfate (Morphine Immediate Release Tab) 15 mg PO Q4 PRN PRN Reason: Pain, moderate (4-7) Last Admin: 02/09/18 08:47 Dose: 15 mg Ondansetron HCl (Zofran Inj) 4 mg IVP Q4 PRN PRN Reason: Nausea/Vomiting Sennosides (Senokot Tab) 17.2 mg PO [facility] Last Admin: 02/08/18 21:20 Dose: 17.2 mg Tamsulosin HCl (Flomax) 0.4 mg PO DAILY [facility] Last Admin: 02/09/18 08:49 Dose: 0.4 mg - Labs Labs: 02/09/18 05:30 02/09/18 05:30 PT 11.9 Seconds (9.8-13.1) 01/24/18 04:20 INR 1.1 (0.9-1.2) 01/24/18 04:20 APTT 46.2 Seconds (25.6-37.1) H D 01/24/18 04:20 - Constitutional Appears: No Acute Distress - Eye Exam Eye Exam: EOMI Additional comments: L ecchymosis of inferior lid - Respiratory Exam Respiratory Exam: Clear to Ausculation Bilateral, NORMAL BREATHING PATTERN. absent: Wheezes - Cardiovascular Exam Cardiovascular Exam: +S1, +S2 - GI/Abdominal Exam GI & Abdominal Exam: Soft, Normal Bowel Sounds. absent: Tenderness - Extremities Exam Extremities Exam: absent: Calf Tenderness Additional comments: L BKA; R lower extremity sensation and motor grossly intact. Pt was seen attempting to ambulate with help of walker and PT. - Neurological Exam Neurological Exam: Alert, Awake - Psychiatric Exam Psychiatric exam: Normal Affect, Normal Mood Assessment and Plan - Assessment and Plan (Free Text) Plan: 67yo F with PMHx DM2, HTN, HLD, DC, CVA, chronic back pain admitted with left lower extremity limb ischemia s/p L BKA on 01/24/18. Plan: left lower extremity limb ischemia s/p L BKA POD 16 - Vascular surg Dr. Christian, on board - c/w morphine 15 mg PO PRN - PT/OT: continued therapy for ambulation with walker - wound care Leukocytosis, non specific - ID consut apreciated by Dr Palacios: IV abx - no fever or urine/CXR findings, esteban culture if febrile - c/w linezolid 600 mg Q12 (day 5) - VBG lactate pending - monitor for fevers NAI on CKD - improving - Nephro consulted, recs appreciated: continue to hold ARB, diuretics - avoid nephrotoxins - Renal US: unremarkable confusion - improving. possible baseline dementia v ongoing delirium. room change x7 in past 2 weeks, very few family support present throughout the day. - Neuro consulted, recs appreciated: Dr. Andujar: recommend treat underlying electrolyte imbalance. - stopped oxycodone, sertraline urinary retention - urine cx NG final - Urology consulted, Dr. Snell: recommendations appreciated: intermittent catheterization in AM for 8 hrs; chart voided urine and post void residual. may d/c if post void is <250 ml Coronary Artery Disease - Cardio Dr. Mcdaniel on board: recommendations appreciated - c/w aspirin and plavix Insulin Dependent Type 2 Diabetes - c/w Levemir 12U HS. - Hypoglycemia protocol and insulin coverage scale. - Accuchecks ACHS. - Diabetic diet. reduced EF CHF - Echo 05/22/17: showed EF of 20%. - Continue carvedilol 3.125 BID - stopped furosemide 20mg BID 2/2 NAI on CKD - held isosorbide mononitrate 30 mg and Lisinopril 5mg as BP controlled in setting of NAI and to maintain renal perfusion R shoulder pain - s/p fall - upper extremity CT: no acute findings - Lidoderm patch - f/u MRI Depression - held Sertraline 50mg daily for possible contribution to confusion - Remeron HLD - Continue with Lipitor 40mg HS DTI, sacrum - wound care daily DVT prophylaxis - Levonox 40mcg Lines - PICC 01/20/18 (day 20) - Dalal: intermittent catheterization Dispo - PT-acute rehab
--- NOTE | 2018-02-09 13:25 | CP.PCM.PN ---
Subjective - Date & Time of Evaluation Date of Evaluation: 02/09/18 Time of Evaluation: 09:00 - Subjective Subjective: awake alert denies fever nad Objective - Vital Signs/Intake and Output Vital Signs (last 24 hours): Temp Pulse Resp BP Pulse Ox 98.5 F 71 20 124/68 97 02/09/18 08:31 02/09/18 08:31 02/09/18 08:31 02/09/18 08:31 02/09/18 08:31 - Medications Medications: Current Medications Acetaminophen (Tylenol 325mg Tab) 650 mg PO Q6 PRN PRN Reason: Pain, Mild (1-3) Last Admin: 02/08/18 16:54 Dose: 650 mg Acetaminophen (Tylenol 325mg Tab) 325 mg PO BID [facility] Last Admin: 02/09/18 09:28 Dose: 325 mg Aspirin (Aspirin Chewable) 81 mg PO DAILY [facility] Last Admin: 02/09/18 08:49 Dose: 81 mg Atorvastatin Calcium (Lipitor) 40 mg PO HS [facility] Last Admin: 02/08/18 21:21 Dose: 40 mg Benzocaine/Menthol (Cepacol Sore Throat) 1 grazyna PO Q2 PRN PRN Reason: Sore Throat Last Admin: 01/27/18 11:03 Dose: 1 grazyna Bethanechol Chloride (Urecholine) 10 mg PO TID [facility] Carvedilol (Coreg) 3.125 mg PO Q12 [facility] Last Admin: 02/09/18 09:26 Dose: 3.125 mg Clopidogrel Bisulfate (Plavix) 75 mg PO DAILY [facility] Last Admin: 02/09/18 08:48 Dose: 75 mg Dextrose (Dextrose 50% Inj) 0 ml IV STAT PRN; Protocol PRN Reason: Hypoglycemia Protocol Dextrose (Glutose 15) 0 gm PO ONCE PRN; Protocol PRN Reason: Hypoglycemia Protocol Glucagon (Glucagen Diagnostic Kit) 0 mg IM STAT PRN; Protocol PRN Reason: Hypoglycemia Protocol Linezolid (Zyvox 600mg/300ml D5w) 600 mg in 300 mls @ 300 mls/hr IVPB Q12 [facility] PRN Reason: Protocol Last Admin: 02/09/18 09:26 Dose: 300 mls/hr Insulin Detemir (Levemir) 15 units SC [facility] Last Admin: 02/08/18 21:22 Dose: 15 units Insulin Human Regular (Humulin R) 0 units SC ACHS [facility] PRN Reason: Protocol Last Admin: 02/09/18 13:22 Dose: 3 units Lactic Acid (Lac-Hydrin 12% Lotion (225 G)) 1 applic TOP TID PRN PRN Reason: Itching / Pruritus Lactulose (Enulose) 10 gm PO DAILY [facility] Lidocaine (Lidoderm) 3 ea TD DAILY [facility] Last Admin: 02/09/18 08:50 Dose: 3 ea Mirtazapine (Remeron) 30 mg PO [facility] Last Admin: 02/08/18 21:21 Dose: 30 mg Morphine Sulfate (Morphine Immediate Release Tab) 15 mg PO Q4 PRN PRN Reason: Pain, moderate (4-7) Last Admin: 02/09/18 08:47 Dose: 15 mg Ondansetron HCl (Zofran Inj) 4 mg IVP Q4 PRN PRN Reason: Nausea/Vomiting Sennosides (Senokot Tab) 17.2 mg PO [facility] Last Admin: 02/08/18 21:20 Dose: 17.2 mg Tamsulosin HCl (Flomax) 0.4 mg PO DAILY [facility] Last Admin: 02/09/18 08:49 Dose: 0.4 mg - Labs Labs: 02/09/18 05:30 02/09/18 05:30 PT 11.9 Seconds (9.8-13.1) 01/24/18 04:20 INR 1.1 (0.9-1.2) 01/24/18 04:20 APTT 46.2 Seconds (25.6-37.1) H D 01/24/18 04:20 - Constitutional Appears: Non-toxic, Chronically Ill - Head Exam Head Exam: NORMOCEPHALIC - Eye Exam Eye Exam: PERRL - ENT Exam ENT Exam: Mucous Membranes Dry - Neck Exam Neck Exam: absent: Lymphadenopathy - Respiratory Exam Respiratory Exam: Decreased Breath Sounds - Cardiovascular Exam Cardiovascular Exam: REGULAR RHYTHM - GI/Abdominal Exam GI & Abdominal Exam: Distended - Rectal Exam Rectal Exam: Deferred - Exam Exam: NORMAL INSPECTION - Extremities Exam Additional comments: left BKA stump dry - Back Exam Back Exam: absent: CVA tenderness (L), CVA tenderness (R) - Neurological Exam Neurological Exam: Alert, Awake, Oriented x3 Assessment and Plan (1) Gangrene Status: Acute (2) Acute kidney injury Status: Acute (3) CAD (coronary artery disease) Status: Acute (4) Cardiomyopathy, dilated Status: Acute (5) Diabetic foot ulcer Status: Acute (6) Hyperglycemia due to type 2 diabetes mellitus Status: Acute (7) Osteomyelitis Status: Acute
--- NOTE | 2018-02-09 21:19 | CP.PCM.PCO ---
Addendum Addendum: 02/09/18 21:15 Im notified by radiologist about MRI brain findings: Subacute hemorrhage inferior left temporal lobe and left parietal lobe acute lacunar infarct. Patient seen bedside. patient reports had a fall in the hospital 4 days ago, resulted in head trauma and right eye hematoma, while transferring from chair to bed by her ( as per nurse). Patient asymptomatic, mild confuse baseline, no acute motor or sensorial deficit Neurologist Dr Dykes notified Plan Hold Aspirin, plavix, Lovenox -Repeat CT head w/o contrast tomorrow. If not progression of bleeding resume aspirin only 02/09/18 21:19
[2018-02-09] MEDS: Insulin Detemir 100 Units/ml Inj SC SCH (22:15)
--- NOTE | 2018-02-09 22:35 | CP.PCM.PN ---
Subjective - Date & Time of Evaluation Date of Evaluation: 02/09/18 Time of Evaluation: 13:00 - Subjective Subjective: Patient again reports some sob; no nausea/vomiting but not eating much; zelaya discontinued, retaining urine per nursing staff (required straight cath); Objective - Vital Signs/Intake and Output Vital Signs (last 24 hours): Temp Pulse Resp BP Pulse Ox 98.4 F 67 20 123/61 97 02/09/18 16:31 02/09/18 22:12 02/09/18 16:31 02/09/18 22:12 02/09/18 16:31 Intake and Output: 02/09/18 02/10/18 18:59 06:59 Intake Total 300 Output Total 1000 Balance -700 - Medications Medications: Current Medications Acetaminophen (Tylenol 325mg Tab) 650 mg PO Q6 PRN PRN Reason: Pain, Mild (1-3) Last Admin: 02/08/18 16:54 Dose: 650 mg Acetaminophen (Tylenol 325mg Tab) 325 mg PO BID [facility] Last Admin: 02/09/18 18:51 Dose: 325 mg Aspirin (Aspirin Chewable) 81 mg PO DAILY [facility] Last Admin: 02/09/18 08:49 Dose: 81 mg Atorvastatin Calcium (Lipitor) 40 mg PO HS [facility] Last Admin: 02/08/18 21:21 Dose: 40 mg Benzocaine/Menthol (Cepacol Sore Throat) 1 grazyna PO Q2 PRN PRN Reason: Sore Throat Last Admin: 01/27/18 11:03 Dose: 1 grazyna Bethanechol Chloride (Urecholine) 10 mg PO TID [facility] Last Admin: 02/09/18 18:52 Dose: 10 mg Carvedilol (Coreg) 3.125 mg PO Q12 [facility] Last Admin: 02/09/18 22:12 Dose: 3.125 mg Clopidogrel Bisulfate (Plavix) 75 mg PO DAILY [facility] Last Admin: 02/09/18 08:48 Dose: 75 mg Dextrose (Dextrose 50% Inj) 0 ml IV STAT PRN; Protocol PRN Reason: Hypoglycemia Protocol Dextrose (Glutose 15) 0 gm PO ONCE PRN; Protocol PRN Reason: Hypoglycemia Protocol Glucagon (Glucagen Diagnostic Kit) 0 mg IM STAT PRN; Protocol PRN Reason: Hypoglycemia Protocol Linezolid (Zyvox 600mg/300ml D5w) 600 mg in 300 mls @ 300 mls/hr IVPB Q12 [facility] PRN Reason: Protocol Last Admin: 02/09/18 21:41 Dose: 300 mls/hr Insulin Detemir (Levemir) 15 units SC [facility] Last Admin: 02/09/18 22:15 Dose: 15 units Insulin Human Regular (Humulin R) 0 units SC ACHS [facility] PRN Reason: Protocol Last Admin: 02/09/18 22:16 Dose: Not Given Lactic Acid (Lac-Hydrin 12% Lotion (225 G)) 1 applic TOP TID PRN PRN Reason: Itching / Pruritus Lactulose (Enulose) 10 gm PO DAILY [facility] Lidocaine (Lidoderm) 3 ea TD DAILY [facility] Last Admin: 02/09/18 08:50 Dose: 3 ea Mirtazapine (Remeron) 30 mg PO [facility] Last Admin: 02/09/18 22:15 Dose: 30 mg Morphine Sulfate (Morphine Immediate Release Tab) 15 mg PO Q4 PRN PRN Reason: Pain, moderate (4-7) Last Admin: 02/09/18 18:51 Dose: 15 mg Ondansetron HCl (Zofran Inj) 4 mg IVP Q4 PRN PRN Reason: Nausea/Vomiting Sennosides (Senokot Tab) 17.2 mg PO [facility] Last Admin: 02/09/18 22:15 Dose: 17.2 mg Tamsulosin HCl (Flomax) 0.4 mg PO DAILY [facility] Last Admin: 02/09/18 08:49 Dose: 0.4 mg - Labs Labs: 02/09/18 05:30 02/09/18 05:30 PT 11.9 Seconds (9.8-13.1) 01/24/18 04:20 INR 1.1 (0.9-1.2) 01/24/18 04:20 APTT 46.2 Seconds (25.6-37.1) H D 01/24/18 04:20 - Constitutional Appears: Non-toxic, No Acute Distress - Eye Exam Eye Exam: absent: Scleral icterus - ENT Exam ENT Exam: Mucous Membranes Moist - Respiratory Exam Respiratory Exam: Clear to Ausculation Bilateral. absent: Respiratory Distress - Cardiovascular Exam Cardiovascular Exam: RRR, +S1, +S2. absent: Gallop - GI/Abdominal Exam GI & Abdominal Exam: Soft. absent: Distended - Exam Exam: absent: Bladder Distension - Extremities Exam Additional comments: no leg edema; - Neurological Exam Neurological Exam: Alert, Awake - Skin Skin Exam: Warm. absent: Cyanosis Assessment and Plan (1) Acute kidney injury Assessment & Plan: NAI on CKD IIIA; serum creatinine stable but still significantly above baseline ; multifactorial, now with urinary retention as well; -starting bethanecol 10 mg tid -continue to avoid nephrotoxic agents -continue to hold LUIS blockade for now; Status: Acute (2) CKD (chronic kidney disease), stage III Status: Chronic (3) Systolic CHF, chronic Assessment & Plan: Reports dyspnea but euvolemic on exam and with overall decreased PO intake; -monitor closely for need for diuretics; Status: Chronic (4) Anemia Assessment & Plan: Hgb stable; ferritin elevated though iron sat low; will hold off on iron supplementation; Status: Chronic (5) PVD (peripheral vascular disease) Status: Chronic
[2018-02-10] MEDS: Morphine 15 mg Immediate Release Tab PO PRN ×2 (04:50→21:05)
--- NOTE | 2018-02-10 07:20 | CP.PCM.PN ---
Subjective - Date & Time of Evaluation Date of Evaluation: 02/10/18 Time of Evaluation: 09:15 - Subjective Subjective: Pt seen and examined at bedside. Yesterday evening: MRI brain: L parietal- occipital stroke. Able to state that she is at [facility]. Denies SOB/N/ V. Reports increased toleration of PO diet. Objective - Vital Signs/Intake and Output Vital Signs (last 24 hours): Temp Pulse Resp BP Pulse Ox 98.3 F 67 18 105/65 97 02/09/18 23:51 02/09/18 23:51 02/09/18 23:51 02/09/18 23:51 02/09/18 23:51 - Medications Medications: Current Medications Acetaminophen (Tylenol 325mg Tab) 650 mg PO Q6 PRN PRN Reason: Pain, Mild (1-3) Last Admin: 02/08/18 16:54 Dose: 650 mg Acetaminophen (Tylenol 325mg Tab) 325 mg PO BID [facility] Last Admin: 02/09/18 18:51 Dose: 325 mg Aspirin (Aspirin Chewable) 81 mg PO DAILY [facility] Last Admin: 02/09/18 08:49 Dose: 81 mg Atorvastatin Calcium (Lipitor) 40 mg PO HS [facility] Last Admin: 02/09/18 22:39 Dose: 40 mg Benzocaine/Menthol (Cepacol Sore Throat) 1 grazyna PO Q2 PRN PRN Reason: Sore Throat Last Admin: 01/27/18 11:03 Dose: 1 grazyna Bethanechol Chloride (Urecholine) 10 mg PO TID [facility] Last Admin: 02/09/18 18:52 Dose: 10 mg Carvedilol (Coreg) 3.125 mg PO Q12 [facility] Last Admin: 02/09/18 22:12 Dose: 3.125 mg Clopidogrel Bisulfate (Plavix) 75 mg PO DAILY [facility] Last Admin: 02/09/18 08:48 Dose: 75 mg Dextrose (Dextrose 50% Inj) 0 ml IV STAT PRN; Protocol PRN Reason: Hypoglycemia Protocol Dextrose (Glutose 15) 0 gm PO ONCE PRN; Protocol PRN Reason: Hypoglycemia Protocol Glucagon (Glucagen Diagnostic Kit) 0 mg IM STAT PRN; Protocol PRN Reason: Hypoglycemia Protocol Linezolid (Zyvox 600mg/300ml D5w) 600 mg in 300 mls @ 300 mls/hr IVPB Q12 [facility] PRN Reason: Protocol Last Admin: 02/09/18 21:41 Dose: 300 mls/hr Insulin Detemir (Levemir) 15 units SC HS [facility] Last Admin: 02/09/18 22:15 Dose: 15 units Insulin Human Regular (Humulin R) 0 units SC ACHS [facility] PRN Reason: Protocol Last Admin: 02/09/18 22:16 Dose: Not Given Lactic Acid (Lac-Hydrin 12% Lotion (225 G)) 1 applic TOP TID PRN PRN Reason: Itching / Pruritus Lactulose (Enulose) 10 gm PO DAILY [facility] Lidocaine (Lidoderm) 3 ea TD DAILY [facility] Last Admin: 02/09/18 08:50 Dose: 3 ea Mirtazapine (Remeron) 30 mg PO [facility] Last Admin: 02/09/18 22:15 Dose: 30 mg Morphine Sulfate (Morphine Immediate Release Tab) 15 mg PO Q4 PRN PRN Reason: Pain, moderate (4-7) Last Admin: 02/10/18 04:50 Dose: 15 mg Ondansetron HCl (Zofran Inj) 4 mg IVP Q4 PRN PRN Reason: Nausea/Vomiting Sennosides (Senokot Tab) 17.2 mg PO [facility] Last Admin: 02/09/18 22:15 Dose: 17.2 mg Tamsulosin HCl (Flomax) 0.4 mg PO DAILY [facility] Last Admin: 02/09/18 08:49 Dose: 0.4 mg - Labs Labs: 02/09/18 05:30 02/09/18 05:30 PT 11.9 Seconds (9.8-13.1) 01/24/18 04:20 INR 1.1 (0.9-1.2) 01/24/18 04:20 APTT 46.2 Seconds (25.6-37.1) H D 01/24/18 04:20 - Constitutional Appears: No Acute Distress - Eye Exam Eye Exam: EOMI - Respiratory Exam Respiratory Exam: Clear to Ausculation Bilateral. absent: Wheezes - Cardiovascular Exam Cardiovascular Exam: +S1, +S2 - GI/Abdominal Exam GI & Abdominal Exam: Soft, Normal Bowel Sounds. absent: Tenderness - Extremities Exam Extremities Exam: absent: Calf Tenderness Additional comments: L lower extremity s/p BKA. wound dry, intact marci in place. sensation intact. R lower extremity with motor and sensation grossly intact. - Neurological Exam Neurological Exam: Alert, Awake - Psychiatric Exam Psychiatric exam: Normal Affect, Normal Mood Assessment and Plan - Assessment and Plan (Free Text) Plan: 67yo F with PMHx DM2, HTN, HLD, MT, CVA, chronic back pain admitted with left lower extremity limb ischemia s/p L BKA on 01/24/18. Plan: L parietal-occipital stroke - MRI brain: subacute subdural hemorrhage inferior to L temporal lobe; chronic lacunar infarct within the R thalamus. Mild atrophy - Neurology consult: Dr. Phillips; recommendations appreciated: - Transferred to Tele - PT/OT - Swallow eval - Atorvastatin 40 mg; f/u lipid panel left lower extremity limb ischemia s/p L BKA POD 17 - Vascular surg Dr. Christian, on board - c/w morphine 15 mg PO PRN - PT/OT: continued therapy for ambulation with walker; further eval s/p stroke - wound care Leukocytosis, non specific - ID consut apreciated by Dr Palacios: IV abx - no fever or urine/CXR findings, esteban culture if febrile - c/w linezolid 600 mg Q12 (day 7) - VBG lactate pending - monitor for fevers NAI on CKD - improving - Nephro consulted: Dr. Schultz; recs appreciated: continue to hold ARB, diuretics - avoid nephrotoxins - Renal US: unremarkable confusion - improving. possible baseline dementia vs ongoing delirium vs. recent findings for stroke. room change x7 in past 2 weeks, very few family support present throughout the day. - Neurology consult: Dr. Phillips; recommendations appreciated: - stopped oxycodone, sertraline urinary retention - urine cx NG final - Urology consulted, Dr. Snell: recommendations appreciated: intermittent catheterization in AM for 8 hrs; chart voided urine and post void residual. may d/c if post void is <250 ml; continue flomax Coronary Artery Disease - Cardio Dr. Mcdaniel on board: recommendations appreciated - c/w aspirin and plavix Insulin Dependent Type 2 Diabetes - c/w Levemir 12U HS. - Hypoglycemia protocol and insulin coverage scale. - Accuchecks ACHS. - Diabetic diet. reduced EF CHF - Echo 05/22/17: showed EF of 20%. - Continue carvedilol 3.125 BID - stopped furosemide 20mg BID 2/2 NAI on CKD - held isosorbide mononitrate 30 mg and Lisinopril 5mg as BP controlled in setting of NAI and to maintain renal perfusion R shoulder pain - s/p fall - upper extremity CT: no acute findings - Lidoderm patch - MRI: please refer to extensive report. Depression - held Sertraline 50mg daily for possible contribution to confusion - Remeron HLD - Continue with Lipitor 40mg HS DTI, sacrum - wound care daily DVT prophylaxis - Levonox 40mcg held 2/2 hemorrhagic stroke Lines - PICC 01/20/18 (day 21) - Dalal: intermittent catheterization Dispo - PT- eval and treat s/p stroke
[2018-02-10] MEDS: Lactulose 10 gm/15 ml Syrup PO SCH (08:43)
[2018-02-10] MEDS: Lidocaine 5% Patch TD SCH (08:44)
[2018-02-10] MEDS: Linezolid 600 mg in D5W 300 ml 600 MG/300 ML BAG IVPB SCH ×2 (08:51→20:46)
[2018-02-10] MEDS: Insulin Regular 100 units/ml SC SCH ×4 (08:51→22:40)
[2018-02-10] MEDS ORDERED: Enoxaparin 40 mg Syringe SC SCH (09:00)
--- NOTE | 2018-02-10 11:53 | CARD ---
APPROVED REPORT EXAM: Two-dimensional and M-mode echocardiogram with Doppler and color Doppler. Other Information Quality : GoodRhythm : NSR INDICATION LV Function:SystolicDiastolic 2D DIMENSIONS IVSd1.14 (0.7-1.1cm)LVDd4.47 (3.9-5.9cm) LVOT Diameter2.27 (1.8-2.4cm)PWd0.79 (0.7-1.1cm) IVSs1.57 (0.8-1.2cm)LVDs3.12 (2.5-4.0cm) FS (%) 30.2 %PWs1.03 (0.8-1.2cm) M-Mode DIMENSIONS Left Atrium (MM)4.00 (2.5-4.0cm)IVSd0.66 (0.7-1.1cm) Aortic Root3.01 (2.2-3.7cm)LVDd6.73 (4.0-5.6cm) Aortic Cusp Exc.1.54 (1.5-2.0cm)PWd0.77 (0.7-1.1cm) IVSs1.21 cmFS (%) 30 % LVDs4.72 (2.0-3.8cm)PWs1.19 cm Aortic Valve LVOT Peak Dlhugtlr52.9cm/sLVOT VTI20.26cm Mitral Valve MV E Hjdnlolc27.2cm/sMV DECEL [id number] A Iziwtzyl36.7cm/s MV MGU91zsM/A ratio0.9MVA (PHT)4.07cm2 TDI Lateral E' Peak V7.82cm/sMedial E' Peak V3.42cm/sE/Lateral E'10.4 E/Medial E'23.7 Pulmonary Valve PV Peak Fcysnnai685.0cm/s LEFT VENTRICLE The left ventricle is normal size. The left ventricular function is normal. The left ventricular ejection fraction is within the normal range. The Ejection Fraction is 50-55%. There is normal LV segmental wall motion. Transmitral Doppler flow pattern is Grade I-abnormal relaxation pattern. RIGHT VENTRICLE The right ventricle is normal size. There is normal right ventricular wall thickness. The right ventricular systolic function is normal. ATRIA The left atrium size is normal. The right atrium size is normal. AORTIC VALVE The aortic valve is normal in structure. No aortic regurgitation is present. There is no aortic valvular stenosis. MITRAL VALVE The mitral valve is normal in structure. There is no mitral valve stenosis. Mitral regurgitation is mild to moderate. TRICUSPID VALVE The tricuspid valve is normal in structure. There is trace to mild tricuspid regurgitation. PULMONIC VALVE The pulmonary valve is normal in structure. There is no pulmonic valvular regurgitation. GREAT VESSELS The aortic root is normal in size. The IVC is normal in size and collapses >50% with inspiration. PERICARDIAL EFFUSION The pericardium appears normal. <Conclusion> The left ventricle is normal size. The left ventricular function is normal. The left ventricular ejection fraction is within the normal range. The Ejection Fraction is 50-55%. Transmitral Doppler flow pattern is Grade I-abnormal relaxation pattern. Mitral regurgitation is mild to moderate. There is trace to mild tricuspid regurgitation.
--- NOTE | 2018-02-10 14:28 | MRI ---
MRI right shoulder History: Painful range of motion. Fall. Comparison: None available. Technique: Multi-echo multiplanar sequences were performed through the right shoulder without the use of intravenous contrast. Findings: Markedly limited study given extensive patient motion artifact. Prominent signal abnormality seen within the visualized teres major muscle with increased STIR signal and patchy decreased T1 signal suggestive for possible intramuscular partial tearing and or hemorrhage. Repeat study would be helpful for further evaluation if clinically indicated. 5 millimeter focal area of fluid signal intensity at the far anterior insertion of the distal supraspinatus tendon on the greater tuberosity suggestive for a focal full thickness defect/tear. More proximally, there is prominent partial bursal surface tearing with an associated severe tendinopathy. No significant muscle atrophy. Partial articular surface fraying and/or tearing of the distal infraspinatus tendon with an associated moderate tendinopathy. No significant muscle atrophy. Moderate distal teres minor tendinopathy. Mild fatty atrophy of the teres minor muscle. Partial tearing with a moderate distal subscapularis tendinopathy. Mild fatty atrophy of the muscle belly. Proximal portion of the long head of the biceps tendon is maintained within its normal anatomic position. Evaluation of the glenoid labrum demonstrates fraying with increased signal at the level of the anterior labrum extending superior to inferior suggestive for a tear. Additional increased signal within the superior labrum extending anterior to posterior also suggestive for a tear. Subchondral cyst formation within the superior bony glenoid measuring up to 4 and 3 millimeters respectively. Trace glenohumeral joint effusion. Moderate amount of fluid seen within the subcoracoid bursa. Moderate amount fluid the subacromial subdeltoid bursa. Moderate acromioclavicular joint space degenerative changes with joint space narrowing, subchondral edema, and bony hypertrophy. Impression: Markedly limited study given extensive patient motion artifact. Repeat study recommended. 1. Prominent signal abnormality seen within the visualized teres major muscle with increased STIR signal and patchy decreased T1 signal suggestive for possible intramuscular partial tearing and or hemorrhage. Repeat study would be helpful for further evaluation if clinically indicated. 2. 5 millimeter focal area of fluid signal intensity at the far anterior insertion of the distal supraspinatus tendon on the greater tuberosity suggestive for a focal full thickness defect/tear. More proximally, there is prominent partial bursal surface tearing with an associated severe tendinopathy. No significant muscle atrophy. 3. Partial articular surface fraying and/or tearing of the distal infraspinatus tendon with an associated moderate tendinopathy. No significant muscle atrophy. 4. Moderate distal teres minor tendinopathy. Mild fatty atrophy of the teres minor muscle. 5. Partial tearing with a moderate distal subscapularis tendinopathy. Mild fatty atrophy of the muscle belly. 6. Evaluation of the glenoid labrum demonstrates fraying with increased signal at the level of the anterior labrum extending superior to inferior suggestive for a tear. Additional increased signal within the superior labrum extending anterior to posterior also suggestive for a tear. 7. Subchondral cyst formation within the superior bony glenoid measuring up to 4 and 3 millimeters respectively. 8. Trace glenohumeral joint effusion. Moderate amount of fluid seen within the subcoracoid bursa. Moderate amount fluid the subacromial subdeltoid bursa. 9. Moderate acromioclavicular joint space degenerative changes with joint space narrowing, subchondral edema, and bony hypertrophy.
--- NOTE | 2018-02-10 15:24 | CP.PCM.PN ---
Subjective - Date & Time of Evaluation Date of Evaluation: 02/10/18 Time of Evaluation: 15:00 - Subjective Subjective: 67 yr old woman who is well known to our service, who now has a new small area of new stroke in left-parietal occipital region, with a subacute subdural hemorrhage inferior to the temporal lobe. She has no symptoms at this time, and I do not see any deficits on her neuro exam. On exam: SLight drift on right arm, and no other deficits have been noted. There are no deficits in mental status. Gait is normal. Objective - Vital Signs/Intake and Output Vital Signs (last 24 hours): Temp Pulse Resp BP Pulse Ox 98.6 F 76 20 122/66 95 02/10/18 08:52 02/10/18 08:52 02/10/18 08:52 02/10/18 08:52 02/10/18 08:52 - Medications Medications: Current Medications Acetaminophen (Tylenol 325mg Tab) 650 mg PO Q6 PRN PRN Reason: Pain, Mild (1-3) Last Admin: 02/08/18 16:54 Dose: 650 mg Acetaminophen (Tylenol 325mg Tab) 325 mg PO BID [facility] Last Admin: 02/10/18 08:48 Dose: 325 mg Aspirin (Aspirin Chewable) 81 mg PO DAILY [facility] Last Admin: 02/09/18 08:49 Dose: 81 mg Atorvastatin Calcium (Lipitor) 40 mg PO HS [facility] Last Admin: 02/09/18 22:39 Dose: 40 mg Benzocaine/Menthol (Cepacol Sore Throat) 1 grazyna PO Q2 PRN PRN Reason: Sore Throat Last Admin: 01/27/18 11:03 Dose: 1 grazyna Bethanechol Chloride (Urecholine) 10 mg PO TID [facility] Last Admin: 02/10/18 12:45 Dose: 10 mg Carvedilol (Coreg) 3.125 mg PO Q12 [facility] Last Admin: 02/10/18 08:42 Dose: 3.125 mg Clopidogrel Bisulfate (Plavix) 75 mg PO DAILY [facility] Last Admin: 02/09/18 08:48 Dose: 75 mg Dextrose (Dextrose 50% Inj) 0 ml IV STAT PRN; Protocol PRN Reason: Hypoglycemia Protocol Dextrose (Glutose 15) 0 gm PO ONCE PRN; Protocol PRN Reason: Hypoglycemia Protocol Glucagon (Glucagen Diagnostic Kit) 0 mg IM STAT PRN; Protocol PRN Reason: Hypoglycemia Protocol Linezolid (Zyvox 600mg/300ml D5w) 600 mg in 300 mls @ 300 mls/hr IVPB Q12 [facility] PRN Reason: Protocol Last Admin: 02/10/18 08:51 Dose: 300 mls/hr Insulin Detemir (Levemir) 15 units SC HS [facility] Last Admin: 02/09/18 22:15 Dose: 15 units Insulin Human Regular (Humulin R) 0 units SC ACHS [facility] PRN Reason: Protocol Last Admin: 02/10/18 12:45 Dose: 3 units Lactic Acid (Lac-Hydrin 12% Lotion (225 G)) 1 applic TOP TID PRN PRN Reason: Itching / Pruritus Lactulose (Enulose) 10 gm PO DAILY [facility] Last Admin: 02/10/18 08:43 Dose: Not Given Lidocaine (Lidoderm) 3 ea TD DAILY [facility] Last Admin: 02/10/18 08:44 Dose: 3 ea Mirtazapine (Remeron) 30 mg PO [facility] Last Admin: 02/09/18 22:15 Dose: 30 mg Morphine Sulfate (Morphine Immediate Release Tab) 15 mg PO Q4 PRN PRN Reason: Pain, moderate (4-7) Last Admin: 02/10/18 04:50 Dose: 15 mg Ondansetron HCl (Zofran Inj) 4 mg IVP Q4 PRN PRN Reason: Nausea/Vomiting Sennosides (Senokot Tab) 17.2 mg PO [facility] Last Admin: 02/09/18 22:15 Dose: 17.2 mg Tamsulosin HCl (Flomax) 0.4 mg PO DAILY [facility] Last Admin: 02/10/18 08:44 Dose: 0.4 mg - Labs Labs: 02/09/18 05:30 02/09/18 05:30 PT 11.9 Seconds (9.8-13.1) 01/24/18 04:20 INR 1.1 (0.9-1.2) 01/24/18 04:20 APTT 46.2 Seconds (25.6-37.1) H D 01/24/18 04:20 Assessment and Plan - Assessment and Plan (Free Text) Assessment: 67 yr old woman with new small stroke, likely to be ischemic in nature, and a traumatic subdural that is noted, with etiology as of yet unknown. Plan: 1. ECho 2. Transfer to telemetry 3. Start aspirin 325 mg po daily. 4. CTA head tomorrow. Thank you our team will follow Dr. Phillips
--- NOTE | 2018-02-10 16:40 | MRI ---
PROCEDURE: MRI BRAIN WITHOUT CONTRAST HISTORY: fluctating changes in mental status COMPARISON: Unenhanced head CT 02/02/2018. TECHNIQUE: Multiplanar, multisequence MR images of the brain were obtained without intravenous contrast enhancement. FINDINGS: HEMORRHAGE: None DWI: There is an acute subacute infarct appearing rather small manifest by a slit-like 8-9 mm hyperintensity at the left parietal lobe posteromedially. There is no evidence, however, of a lobar brain infarction on acute or subacute basis. BRAIN PARENCHYMA: There is no mass-effect once again an age related neuro degenerative changes are reiterated by diffuse cerebral atrophy and chronic microangiopathy. A chronic lacune is again seen at the left external capsule. No interval extra-axial fluid collections identified with posterior fossa contents stable in appearance. VENTRICLES: Unremarkable. No hydrocephalus. CRANIUM: Unremarkable. ORBITS: Grossly unremarkable. PARANASAL SINUSES/MASTOIDS: Left mastoid effusions noted. VASCULAR SYSTEM: Skull base flow voids intact. OTHER FINDINGS: None. IMPRESSION: A tiny acute or subacute infarct is seen at the left parietal lobe. Exam otherwise stable including age related neuro degenerative findings as discussed above as compared to prior head CT 02/02/2018. The current diffusion-weighted findings do not correspond to any local finding on prior head CT.
[2018-02-10] MEDS: Insulin Detemir 100 Units/ml Inj SC SCH (21:38)
--- NOTE | 2018-02-10 22:23 | CP.PCM.PN ---
Subjective - Date & Time of Evaluation Date of Evaluation: 02/10/18 Time of Evaluation: 12:45 - Subjective Subjective: Reports shortness of breath improved; no nausea/vomiting but still not eating much; still with urinary retention but decreased on bladder scan; Objective - Vital Signs/Intake and Output Vital Signs (last 24 hours): Temp Pulse Resp BP Pulse Ox 98.9 F 71 18 134/61 97 02/10/18 19:31 02/10/18 21:04 02/10/18 19:31 02/10/18 21:04 02/10/18 19:31 - Medications Medications: Current Medications Acetaminophen (Tylenol 325mg Tab) 650 mg PO Q6 PRN PRN Reason: Pain, Mild (1-3) Last Admin: 02/08/18 16:54 Dose: 650 mg Acetaminophen (Tylenol 325mg Tab) 325 mg PO BID [facility] Last Admin: 02/10/18 17:04 Dose: 325 mg Aspirin (Aspirin Chewable) 81 mg PO DAILY [facility] Last Admin: 02/09/18 08:49 Dose: 81 mg Atorvastatin Calcium (Lipitor) 40 mg PO HS [facility] Last Admin: 02/10/18 21:04 Dose: 40 mg Benzocaine/Menthol (Cepacol Sore Throat) 1 grazyna PO Q2 PRN PRN Reason: Sore Throat Last Admin: 01/27/18 11:03 Dose: 1 graznya Bethanechol Chloride (Urecholine) 10 mg PO TID [facility] Last Admin: 02/10/18 17:02 Dose: 10 mg Carvedilol (Coreg) 3.125 mg PO Q12 [facility] Last Admin: 02/10/18 21:04 Dose: 3.125 mg Clopidogrel Bisulfate (Plavix) 75 mg PO DAILY [facility] Last Admin: 02/09/18 08:48 Dose: 75 mg Dextrose (Dextrose 50% Inj) 0 ml IV STAT PRN; Protocol PRN Reason: Hypoglycemia Protocol Dextrose (Glutose 15) 0 gm PO ONCE PRN; Protocol PRN Reason: Hypoglycemia Protocol Glucagon (Glucagen Diagnostic Kit) 0 mg IM STAT PRN; Protocol PRN Reason: Hypoglycemia Protocol Linezolid (Zyvox 600mg/300ml D5w) 600 mg in 300 mls @ 300 mls/hr IVPB Q12 [facility] PRN Reason: Protocol Last Admin: 02/10/18 20:46 Dose: 300 mls/hr Insulin Detemir (Levemir) 15 units SC [facility] Last Admin: 02/10/18 21:38 Dose: 15 units Insulin Detemir (Levemir) 10 units SC DAILY [facility] Insulin Human Regular (Humulin R) 0 units SC ACHS [facility] PRN Reason: Protocol Last Admin: 02/10/18 17:01 Dose: 3 units Lactic Acid (Lac-Hydrin 12% Lotion (225 G)) 1 applic TOP TID PRN PRN Reason: Itching / Pruritus Lactulose (Enulose) 10 gm PO DAILY [facility] Last Admin: 02/10/18 08:43 Dose: Not Given Lidocaine (Lidoderm) 3 ea TD DAILY [facility] Last Admin: 02/10/18 08:44 Dose: 3 ea Mirtazapine (Remeron) 30 mg PO [facility] Last Admin: 02/10/18 21:06 Dose: 30 mg Morphine Sulfate (Morphine Immediate Release Tab) 15 mg PO Q4 PRN PRN Reason: Pain, moderate (4-7) Last Admin: 02/10/18 21:05 Dose: 15 mg Ondansetron HCl (Zofran Inj) 4 mg IVP Q4 PRN PRN Reason: Nausea/Vomiting Sennosides (Senokot Tab) 17.2 mg PO [facility] Last Admin: 02/09/18 22:15 Dose: 17.2 mg Tamsulosin HCl (Flomax) 0.4 mg PO DAILY [facility] Last Admin: 02/10/18 08:44 Dose: 0.4 mg - Labs Labs: 02/09/18 05:30 02/09/18 05:30 PT 11.9 Seconds (9.8-13.1) 01/24/18 04:20 INR 1.1 (0.9-1.2) 01/24/18 04:20 APTT 46.2 Seconds (25.6-37.1) H D 01/24/18 04:20 - Constitutional Appears: Non-toxic, No Acute Distress - Eye Exam Eye Exam: Normal appearance. absent: Scleral icterus - ENT Exam ENT Exam: Mucous Membranes Moist - Respiratory Exam Respiratory Exam: Clear to Ausculation Bilateral. absent: Respiratory Distress - Cardiovascular Exam Cardiovascular Exam: RRR, +S1, +S2. absent: Gallop, JVD - GI/Abdominal Exam GI & Abdominal Exam: Soft. absent: Distended - Exam Exam: absent: Bladder Distension - Extremities Exam Additional comments: no leg edema; - Neurological Exam Neurological Exam: Alert, Awake - Psychiatric Exam Psychiatric exam: absent: Agitated - Skin Skin Exam: Warm. absent: Cyanosis Assessment and Plan (1) Acute kidney injury Assessment & Plan: NAI on CKD IIIA; serum creatinine still above baseline but stable; stable electrolyte and volume status; still with urinary retention but may be improving ; -continue to hold diuretics; if BP tolerates, can restart ARB at low dose for cardiac optimization; -increasing bethanecol to 20 mg tid; continue to straight cath intermittently; -continue to avoid nephrotoxic agents; Status: Acute (2) CKD (chronic kidney disease), stage III Status: Chronic (3) Systolic CHF, chronic Assessment & Plan: Euvolemic on exam; see above; Status: Chronic (4) Anemia Assessment & Plan: Hgb stable, no need for EPO currently; Status: Chronic (5) PVD (peripheral vascular disease) Status: Chronic
[2018-02-11 05:53] LABS: HEMOGLOBIN 11.3 g/dL (12.0-16.0); MEAN CELL VOLUME 86.9 fl (81.0-99.0); MEAN CORPUSCULAR HEMOGLOBIN 29.1 pg (27.0-31.0); MEAN CORPUSCULAR HGB CONC 33.5 g/dL (33.0-37.0); RBC 3.88 Mil/uL (3.80-5.20); RED CELL DISTRIBUTION WIDTH 13.5 % (11.5-14.5); WHITE BLOOD COUNT 14.8 K/uL (4.8-10.8)
[2018-02-11 06:26] LABS: ALB/GLOB RATIO 0.8 (1.0-2.1); CALCIUM 9.2 mg/dL (8.4-10.2)
[2018-02-11] MEDS ORDERED: Insulin Detemir 100 Units/ml Inj SC SCH ×2 (09:00→13:42)
[2018-02-11] MEDS ORDERED: Aspirin 325 mg EC Tablets PO SCH (09:00)
--- NOTE | 2018-02-11 09:50 | CP.PCM.PN ---
Subjective - Date & Time of Evaluation Date of Evaluation: 02/11/18 Time of Evaluation: 09:00 - Subjective Subjective: Pt seen and examined at bedside. Reports improvement in symptoms. Went for carotid US this morning. Denies significant overnight events. Objective - Vital Signs/Intake and Output Vital Signs (last 24 hours): Temp Pulse Resp BP Pulse Ox 98.6 F 81 18 108/67 97 02/11/18 07:45 02/11/18 07:45 02/11/18 07:45 02/11/18 07:45 02/11/18 07:45 Intake and Output: 02/11/18 02/11/18 06:59 18:59 Intake Total 450 Output Total 1100 Balance -650 - Medications Medications: Current Medications Acetaminophen (Tylenol 325mg Tab) 650 mg PO Q6 PRN PRN Reason: Pain, Mild (1-3) Last Admin: 02/08/18 16:54 Dose: 650 mg Acetaminophen (Tylenol 325mg Tab) 325 mg PO BID [facility] Last Admin: 02/10/18 17:04 Dose: 325 mg Aspirin (Ecotrin) 81 mg PO DAILY [facility] Atorvastatin Calcium (Lipitor) 40 mg PO HS [facility] Last Admin: 02/10/18 21:04 Dose: 40 mg Benzocaine/Menthol (Cepacol Sore Throat) 1 grazyna PO Q2 PRN PRN Reason: Sore Throat Last Admin: 01/27/18 11:03 Dose: 1 grazyna Bethanechol Chloride (Urecholine) 20 mg PO TID [facility] Carvedilol (Coreg) 3.125 mg PO Q12 [facility] Last Admin: 02/10/18 21:04 Dose: 3.125 mg Clopidogrel Bisulfate (Plavix) 75 mg PO DAILY [facility] Last Admin: 02/09/18 08:48 Dose: 75 mg Dextrose (Dextrose 50% Inj) 0 ml IV STAT PRN; Protocol PRN Reason: Hypoglycemia Protocol Dextrose (Glutose 15) 0 gm PO ONCE PRN; Protocol PRN Reason: Hypoglycemia Protocol Glucagon (Glucagen Diagnostic Kit) 0 mg IM STAT PRN; Protocol PRN Reason: Hypoglycemia Protocol Linezolid (Zyvox 600mg/300ml D5w) 600 mg in 300 mls @ 300 mls/hr IVPB Q12 [facility] PRN Reason: Protocol Last Admin: 02/10/18 20:46 Dose: 300 mls/hr Insulin Detemir (Levemir) 15 units SC [facility] Last Admin: 02/10/18 21:38 Dose: 15 units Insulin Detemir (Levemir) 10 units SC DAILY [facility] Insulin Human Regular (Humulin R) 0 units SC ACHS [facility] PRN Reason: Protocol Last Admin: 02/10/18 22:40 Dose: Not Given Lactic Acid (Lac-Hydrin 12% Lotion (225 G)) 1 applic TOP TID PRN PRN Reason: Itching / Pruritus Lactulose (Enulose) 10 gm PO DAILY [facility] Last Admin: 02/10/18 08:43 Dose: Not Given Lidocaine (Lidoderm) 3 ea TD DAILY [facility] Last Admin: 02/10/18 08:44 Dose: 3 ea Losartan Potassium (Cozaar) 25 mg PO DAILY [facility] Mirtazapine (Remeron) 30 mg PO [facility] Last Admin: 02/10/18 21:06 Dose: 30 mg Morphine Sulfate (Morphine Immediate Release Tab) 15 mg PO Q4 PRN PRN Reason: Pain, moderate (4-7) Last Admin: 02/10/18 21:05 Dose: 15 mg Ondansetron HCl (Zofran Inj) 4 mg IVP Q4 PRN PRN Reason: Nausea/Vomiting Sennosides (Senokot Tab) 17.2 mg PO [facility] Last Admin: 02/10/18 22:41 Dose: Not Given Tamsulosin HCl (Flomax) 0.4 mg PO DAILY [facility] Last Admin: 02/10/18 08:44 Dose: 0.4 mg - Labs Labs: 02/11/18 04:25 02/11/18 04:25 PT 11.9 Seconds (9.8-13.1) 01/24/18 04:20 INR 1.1 (0.9-1.2) 01/24/18 04:20 APTT 46.2 Seconds (25.6-37.1) H D 01/24/18 04:20 - Constitutional Appears: Well, No Acute Distress - Neck Exam Neck Exam: Full ROM - Respiratory Exam Respiratory Exam: Clear to Ausculation Bilateral. absent: Wheezes - Cardiovascular Exam Cardiovascular Exam: +S1, +S2 - GI/Abdominal Exam GI & Abdominal Exam: Soft, Normal Bowel Sounds. absent: Tenderness - Extremities Exam Additional comments: Eron ESTEBANA. Pt participating in PT. PT of R shoulder. 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 Plan: L parietal-occipital stroke - MRI brain: subacute subdural hemorrhage inferior to L temporal lobe; chronic lacunar infarct within the R thalamus. Mild atrophy - Neurology consult: Dr. Phillips; recommendations appreciated: Carotid US, CT head w /o, ASA, manage bp and glucose, hold plavix for now; PT/OT - Transferred to Tele - PT/OT - Carotid US: Stenosis at bilateral external carotid arteries >90% - f/u CT head W/O: for progression; pending - Swallow eval: pending - Atorvastatin 40 mg; lipid panel: Total: 107; LDL: 50; HDL: 24 left lower extremity limb ischemia s/p L BKA POD 18 - Vascular surg Dr. Christian, on board: recommendations appreciated. - c/w morphine 15 mg PO PRN - PT/OT: continued therapy for ambulation with walker; further eval s/p stroke - wound care Leukocytosis, non specific - ID consut apreciated by Dr Palacios: IV abx - no fever or urine/CXR findings, esteban culture if febrile - c/w linezolid 600 mg Q12 (day 8) - VBG lactate pending - monitor for fevers NAI on CKD - improving - Nephro consulted: Dr. Schultz; recs appreciated: may begin low dose ARB - avoid nephrotoxins - Renal US: unremarkable confusion - improving. possible baseline dementia vs ongoing delirium vs. recent findings for stroke. room change x7 in past 2 weeks, very few family support present throughout the day. - Neurology consult: Dr. Phillips; recommendations appreciated: - stopped oxycodone, sertraline - Carotid US: Stenosis at bilateral external carotid arteries >90% urinary retention - urine cx NG final - Urology consulted, Dr. Snell: recommendations appreciated: intermittent catheterization in AM for 8 hrs; chart voided urine and post void residual. may d/c if post void is <250 ml; continue flomax - Pt intermittently able to void w/o intermittent catheterization. Will continue to monitor. Coronary Artery Disease - Cardio Dr. Mcdaniel on board: recommendations appreciated - c/w aspirin - plavix held 2/2 recent stroke findings Insulin Dependent Type 2 Diabetes - c/w Levemir 12U HS; added 8 U dialy - Hypoglycemia protocol and insulin coverage scale. - Accuchecks ACHS. - Diabetic diet. reduced EF CHF - Echo 05/22/17: showed EF of 20%. - Continue carvedilol 3.125 BID - stopped furosemide 20mg BID 2/2 NAI on CKD - held isosorbide mononitrate 30 mg and Lisinopril 5mg as BP controlled in setting of NAI and to maintain renal perfusion - Cardiology on board R shoulder pain - s/p fall - upper extremity CT: no acute findings - Lidoderm patch - MRI: please refer to extensive report. - PT/OT: for eval and treat Depression - held Sertraline 50mg daily for possible contribution to confusion - Remeron HLD - Continue with Lipitor 40mg HS DTI, sacrum - wound care daily DVT prophylaxis - Levonox 40mcg held 2/2 hemorrhagic stroke - On asa 81 Lines - PICC 01/20/18 (day 23) - Dalal: intermittent catheterization Dispo - PT- eval and treat s/p stroke
--- NOTE | 2018-02-11 10:12 | CP.PCM.PN ---
Subjective - Date & Time of Evaluation Date of Evaluation: 02/11/18 Time of Evaluation: 10:11 - Subjective Subjective: Ms. Carias was seen and examined at the bedside. She is alert, oriented, speaks mainly [place]. She denies any headache, dizziness, lightheadedness, but complains of severe left BKA stump pain. She is able to raise affected leg, follow simple commands. She has a very minimal right arm drift.There was no untoward events overnight. Objective - Vital Signs/Intake and Output Vital Signs (last 24 hours): Temp Pulse Resp BP Pulse Ox 98.6 F 81 18 108/67 97 02/11/18 07:45 02/11/18 07:45 02/11/18 07:45 02/11/18 07:45 02/11/18 07:45 Intake and Output: 02/11/18 02/11/18 06:59 18:59 Intake Total 450 Output Total 1100 Balance -650 - Medications Medications: Current Medications Acetaminophen (Tylenol 325mg Tab) 650 mg PO Q6 PRN PRN Reason: Pain, Mild (1-3) Last Admin: 02/08/18 16:54 Dose: 650 mg Acetaminophen (Tylenol 325mg Tab) 325 mg PO BID [facility] Last Admin: 02/10/18 17:04 Dose: 325 mg Aspirin (Ecotrin) 81 mg PO DAILY [facility] Atorvastatin Calcium (Lipitor) 40 mg PO HS [facility] Last Admin: 02/10/18 21:04 Dose: 40 mg Benzocaine/Menthol (Cepacol Sore Throat) 1 grazyna PO Q2 PRN PRN Reason: Sore Throat Last Admin: 01/27/18 11:03 Dose: 1 grazyna Bethanechol Chloride (Urecholine) 20 mg PO TID [facility] Carvedilol (Coreg) 3.125 mg PO Q12 [facility] Last Admin: 02/10/18 21:04 Dose: 3.125 mg Clopidogrel Bisulfate (Plavix) 75 mg PO DAILY [facility] Last Admin: 02/09/18 08:48 Dose: 75 mg Dextrose (Dextrose 50% Inj) 0 ml IV STAT PRN; Protocol PRN Reason: Hypoglycemia Protocol Dextrose (Glutose 15) 0 gm PO ONCE PRN; Protocol PRN Reason: Hypoglycemia Protocol Glucagon (Glucagen Diagnostic Kit) 0 mg IM STAT PRN; Protocol PRN Reason: Hypoglycemia Protocol Linezolid (Zyvox 600mg/300ml D5w) 600 mg in 300 mls @ 300 mls/hr IVPB Q12 [facility] PRN Reason: Protocol Last Admin: 02/10/18 20:46 Dose: 300 mls/hr Insulin Detemir (Levemir) 15 units SC HS [facility] Last Admin: 02/10/18 21:38 Dose: 15 units Insulin Detemir (Levemir) 10 units SC DAILY [facility] Insulin Human Regular (Humulin R) 0 units SC ACHS [facility] PRN Reason: Protocol Last Admin: 02/10/18 22:40 Dose: Not Given Lactic Acid (Lac-Hydrin 12% Lotion (225 G)) 1 applic TOP TID PRN PRN Reason: Itching / Pruritus Lactulose (Enulose) 10 gm PO DAILY [facility] Last Admin: 02/10/18 08:43 Dose: Not Given Lidocaine (Lidoderm) 3 ea TD DAILY [facility] Last Admin: 02/10/18 08:44 Dose: 3 ea Losartan Potassium (Cozaar) 25 mg PO DAILY [facility] Mirtazapine (Remeron) 30 mg PO [facility] Last Admin: 02/10/18 21:06 Dose: 30 mg Morphine Sulfate (Morphine Immediate Release Tab) 15 mg PO Q4 PRN PRN Reason: Pain, moderate (4-7) Last Admin: 02/10/18 21:05 Dose: 15 mg Ondansetron HCl (Zofran Inj) 4 mg IVP Q4 PRN PRN Reason: Nausea/Vomiting Sennosides (Senokot Tab) 17.2 mg PO [facility] Last Admin: 02/10/18 22:41 Dose: Not Given Tamsulosin HCl (Flomax) 0.4 mg PO DAILY [facility] Last Admin: 02/10/18 08:44 Dose: 0.4 mg - Labs Labs: 02/11/18 04:25 02/11/18 04:25 PT 11.9 Seconds (9.8-13.1) 01/24/18 04:20 INR 1.1 (0.9-1.2) 01/24/18 04:20 APTT 46.2 Seconds (25.6-37.1) H D 01/24/18 04:20 - Constitutional Appears: No Acute Distress - Head Exam Head Exam: NORMAL INSPECTION - Neurological Exam Neurological Exam: Alert, Awake Neuro motor strength exam: Left Upper Extremity: 4, Right Upper Extremity: 3, Left Lower Extremity: 3, Right Lower Extremity: 4 Additional comments: She is alert, oriented, able to follow simple commands. Assessment and Plan (1) CVA (cerebral vascular accident) Assessment & Plan: Case discussed with Dr. Phillips, continue all current medical, physical, occupational, and speech therapies. Recommend blood pressure and glycemic control. Recommend repeat CT scan of the head without contrasts to follow up infarct. If there is hemorrhage to hold plavix for now. Status: Acute
[2018-02-11] MEDS: Lidocaine 5% Patch TD SCH (10:15)
[2018-02-11] MEDS: Linezolid 600 mg in D5W 300 ml 600 MG/300 ML BAG IVPB SCH ×2 (10:19→21:14)
[2018-02-11] MEDS: Insulin Regular 100 units/ml SC SCH ×4 (10:21→21:56)
[2018-02-11] MEDS: Lactulose 10 gm/15 ml Syrup PO SCH ×2 (10:21→10:50)
--- NOTE | 2018-02-11 11:23 | US ---
PROCEDURE: Duplex ultrasound of the carotid and vertebral arteries. HISTORY: stroke COMPARISON: None available. TECHNIQUE: Grayscale and duplex Doppler evaluation of the cervical carotid and vertebral arteries were performed. The common carotid, carotid bifurcations and cervical ICA and proximal ECA were evaluated. The vertebral arteries were evaluated for gross patency and direction. FINDINGS: RIGHT CAROTID ARTERIES: Common Carotid Artery: Widely patent. Maximal flow velocity of 91.0 cm/s. Carotid Bifurcation: Atherosclerotic plaque is identified moderately with extension into the origin of the external carotid artery. Internal Carotid Artery:Widely patent. Maximal flow velocity of 107.9 cm/s. External Carotid Artery (proximal branches): Patent though severely stenosed proximally beginning at its origin. Maximal flow velocity of 326.4 cm/s. ICA/CCA Ratio: 1.2 LEFT CAROTID ARTERIES: Common Carotid Artery: Widely patent. Maximal flow velocity of 94.9 cm/s. Carotid Bifurcation: Similar to the right side, atherosclerotic plaque appears moderate extending into proximal external carotid artery. Internal Carotid Artery:Widely patent. Maximal flow velocity of 76.4 cm/s. External Carotid Artery (proximal branches): Patent though severely stenosed proximally beginning at its origin. Maximal flow velocity of 345.9 cm/s. ICA/CCA Ratio: 0.8 VERTEBRAL ARTERIES: Right Vertebral Artery: Patent. Antegrade flow. Left Vertebral Artery: Patent. Antegrade flow. OTHER FINDINGS: None. IMPRESSION: No significant stenosis appreciated involving the bilateral common and internal carotid arteries though atherosclerotic plaque is identified in the bilateral carotid bulbs. High-grade stenoses are identified at the bilateral external carotid artery origins likely greater than 90 percent.
--- NOTE | 2018-02-11 17:34 | CT ---
PROCEDURE: CT HEAD WITHOUT CONTRAST. HISTORY: follow up ich COMPARISON: None available. TECHNIQUE: Axial computed tomography images were obtained through the head/brain without intravenous contrast. Radiation dose: Total exam DLP = 706.35 mGy-cm. This CT exam was performed using one or more of the following dose reduction techniques: Automated exposure control, adjustment of the mA and/or kV according to patient size, and/or use of iterative reconstruction technique. FINDINGS: HEMORRHAGE: Stable subdural hematoma again evident at the medial middle cranial fossa without interval change. No new intracranial hemorrhage appreciated in the interval however. BRAIN: Reiteration of diffuse cerebral atrophy, chronic microangiopathy, bilateral thalamic and left basal ganglia chronic lacunes. No significant mass effect or extra-axial fluid collection other than left temporal subdural hematoma. VENTRICLES: Unremarkable. No hydrocephalus. CALVARIUM: Unremarkable. PARANASAL SINUSES: Right maxillary sinusitis again evident. MASTOID AIR CELLS: Unremarkable as visualized. No inflammatory changes. OTHER FINDINGS: None. IMPRESSION: Stable small subdural hematoma medial left middle cranial fossa. No additional intracranial hemorrhage appreciated in the interval. Bilateral thalamic and left basal ganglia chronic lacunes reiterated as well as age related neuro degenerative change.
--- NOTE | 2018-02-11 20:26 | PN ---
DATE: SUBJECTIVE: The patient is currently voiding katiuska urine well with minimal complaints and her intermittent Dalal catheterizations have been stopped at this time secondary to residual urines less than 200 ml. PHYSICAL EXAMINATION: ABDOMEN: Soft, not distended or tender. No CVA tenderness. No suprapubic tenderness. DIAGNOSTIC IMPRESSION: Acute urinary retention, resolved on Flomax 0.4 mg daily. PLAN: The patient can be discharged home anytime regarding Urology on Flomax 0.4 mg daily and the patient can be seen in office for followup in 2 weeks. Stefano Snell MD MTDD
[2018-02-11] MEDS: Insulin Detemir 100 Units/ml Inj SC SCH (21:57)
--- NOTE | 2018-02-11 22:58 | CP.PCM.PN ---
Subjective - Date & Time of Evaluation Date of Evaluation: 02/11/18 Time of Evaluation: 11:00 - Subjective Subjective: Reports sob better; no nausea/vomiting; reportedly urinating better; Objective - Vital Signs/Intake and Output Vital Signs (last 24 hours): Temp Pulse Resp BP Pulse Ox 98.8 F 78 20 138/70 98 02/11/18 19:24 02/11/18 21:12 02/11/18 19:24 02/11/18 21:12 02/11/18 19:24 - Medications Medications: Current Medications Acetaminophen (Tylenol 325mg Tab) 650 mg PO Q6 PRN PRN Reason: Pain, Mild (1-3) Last Admin: 02/08/18 16:54 Dose: 650 mg Acetaminophen (Tylenol 325mg Tab) 325 mg PO BID [facility] Last Admin: 02/11/18 16:54 Dose: Not Given Aspirin (Ecotrin) 81 mg PO DAILY [facility] Last Admin: 02/11/18 10:50 Dose: 81 mg Atorvastatin Calcium (Lipitor) 40 mg PO [facility] Last Admin: 02/11/18 21:13 Dose: 40 mg Benzocaine/Menthol (Cepacol Sore Throat) 1 grazyna PO Q2 PRN PRN Reason: Sore Throat Last Admin: 01/27/18 11:03 Dose: 1 grazyna Bethanechol Chloride (Urecholine) 20 mg PO TID [facility] Last Admin: 02/11/18 16:54 Dose: 20 mg Carvedilol (Coreg) 3.125 mg PO Q12 [facility] Last Admin: 02/11/18 21:12 Dose: 3.125 mg Clopidogrel Bisulfate (Plavix) 75 mg PO DAILY [facility] Last Admin: 02/09/18 08:48 Dose: 75 mg Dextrose (Dextrose 50% Inj) 0 ml IV STAT PRN; Protocol PRN Reason: Hypoglycemia Protocol Dextrose (Glutose 15) 0 gm PO ONCE PRN; Protocol PRN Reason: Hypoglycemia Protocol Glucagon (Glucagen Diagnostic Kit) 0 mg IM STAT PRN; Protocol PRN Reason: Hypoglycemia Protocol Linezolid (Zyvox 600mg/300ml D5w) 600 mg in 300 mls @ 300 mls/hr IVPB Q12 [facility] PRN Reason: Protocol Last Admin: 02/11/18 21:14 Dose: 300 mls/hr Insulin Detemir (Levemir) 15 units SC [facility] Last Admin: 02/11/18 21:57 Dose: 15 units Insulin Detemir (Levemir) 8 units SC DAILY [facility] Insulin Human Regular (Humulin R) 0 units SC ACHS [facility] PRN Reason: Protocol Last Admin: 02/11/18 21:56 Dose: Not Given Lactic Acid (Lac-Hydrin 12% Lotion (225 G)) 1 applic TOP TID PRN PRN Reason: Itching / Pruritus Lactulose (Enulose) 10 gm PO DAILY [facility] Last Admin: 02/11/18 10:50 Dose: 10 gm Lidocaine (Lidoderm) 3 ea TD DAILY [facility] Last Admin: 02/11/18 10:15 Dose: 3 ea Losartan Potassium (Cozaar) 25 mg PO DAILY [facility] Last Admin: 02/11/18 13:14 Dose: 25 mg Mirtazapine (Remeron) 30 mg PO HS [facility] Last Admin: 02/11/18 21:13 Dose: 30 mg Morphine Sulfate (Morphine Immediate Release Tab) 15 mg PO Q4 PRN PRN Reason: Pain, moderate (4-7) Last Admin: 02/10/18 21:05 Dose: 15 mg Ondansetron HCl (Zofran Inj) 4 mg IVP Q4 PRN PRN Reason: Nausea/Vomiting Sennosides (Senokot Tab) 17.2 mg PO [facility] Last Admin: 02/11/18 21:13 Dose: 17.2 mg Tamsulosin HCl (Flomax) 0.4 mg PO DAILY [facility] Last Admin: 02/11/18 10:22 Dose: 0.4 mg - Labs Labs: 02/11/18 04:25 02/11/18 04:25 PT 11.9 Seconds (9.8-13.1) 01/24/18 04:20 INR 1.1 (0.9-1.2) 01/24/18 04:20 APTT 46.2 Seconds (25.6-37.1) H D 01/24/18 04:20 - Constitutional Appears: Non-toxic, No Acute Distress - Eye Exam Eye Exam: absent: Scleral icterus - ENT Exam ENT Exam: Mucous Membranes Moist - Respiratory Exam Respiratory Exam: Clear to Ausculation Bilateral. absent: Respiratory Distress - Cardiovascular Exam Cardiovascular Exam: RRR, +S1, +S2 - GI/Abdominal Exam GI & Abdominal Exam: Soft - Exam Exam: absent: Bladder Distension - Extremities Exam Additional comments: no leg edema - Neurological Exam Neurological Exam: Alert, Awake - Psychiatric Exam Psychiatric exam: absent: Agitated - Skin Skin Exam: Warm. absent: Cyanosis Assessment and Plan (1) Acute kidney injury Assessment & Plan: NAI on CKD IIIB; serum creatinine still elevated but stable; continue to avoid nephrotoxic agents; Status: Acute (2) CKD (chronic kidney disease), stage III Status: Chronic (3) Systolic CHF, chronic Assessment & Plan: Appears euvolemic on exam; started on losartan 25 mg daily today; may see mild increase in serum creatinine which is expected; continue to hold diuretics for now; Status: Chronic (4) Anemia Status: Chronic (5) PVD (peripheral vascular disease) Status: Chronic (6) Urinary retention Assessment & Plan: In the setting of getting morphine for pain; started on bethanecol with improvement in urination; continue; Status: Acute
[2018-02-12] MEDS ORDERED: Dextrose 50% SYRINGE Inj (50 ml) IV PRN (05:31)
[2018-02-12] MEDS ORDERED: Glucagon Recombinant 1 mg Inj IM PRN (05:31)
[2018-02-12] MEDS: Insulin Regular 100 units/ml SC SCH ×4 (06:38→21:40)
[2018-02-12 07:13] LABS: CALCIUM 8.9 mg/dL (8.4-10.2)
[2018-02-12] MEDS: Lactulose 10 gm/15 ml Syrup PO SCH (09:25)
[2018-02-12] MEDS: Lidocaine 5% Patch TD SCH (09:27)
[2018-02-12] MEDS: Linezolid 600 mg in D5W 300 ml 600 MG/300 ML BAG IVPB SCH ×2 (09:34→21:30)
[2018-02-12] MEDS ORDERED: Insulin Detemir 100 Units/ml Inj SC SCH (11:32)
--- NOTE | 2018-02-12 11:35 | CP.PCM.PN ---
Subjective - Date & Time of Evaluation Date of Evaluation: 02/12/18 Time of Evaluation: 08:15 - Subjective Subjective: Pt. seen at bedside. Pt. with no compalints. Overnight event sreviewed. Pt. with episode of hypoglycemia of 36. Pt. reports reduced appetite and concerned has not come to see her yet. Objective - Vital Signs/Intake and Output Vital Signs (last 24 hours): Temp Pulse Resp BP Pulse Ox 97.1 F L 84 18 123/66 95 02/12/18 08:30 02/12/18 09:25 02/12/18 08:30 02/12/18 09:25 02/12/18 08:30 - Medications Medications: Current Medications Acetaminophen (Tylenol 325mg Tab) 650 mg PO Q6 PRN PRN Reason: Pain, Mild (1-3) Last Admin: 02/08/18 16:54 Dose: 650 mg Acetaminophen (Tylenol 325mg Tab) 325 mg PO BID [facility] Last Admin: 02/11/18 16:54 Dose: Not Given Aspirin (Ecotrin) 81 mg PO DAILY [facility] Last Admin: 02/12/18 09:32 Dose: 81 mg Atorvastatin Calcium (Lipitor) 40 mg PO HS [facility] Last Admin: 02/11/18 21:13 Dose: 40 mg Benzocaine/Menthol (Cepacol Sore Throat) 1 grazyna PO Q2 PRN PRN Reason: Sore Throat Last Admin: 01/27/18 11:03 Dose: 1 grazyna Bethanechol Chloride (Urecholine) 20 mg PO TID [facility] Last Admin: 02/12/18 09:24 Dose: 20 mg Carvedilol (Coreg) 3.125 mg PO Q12 [facility] Last Admin: 02/12/18 09:25 Dose: 3.125 mg Clopidogrel Bisulfate (Plavix) 75 mg PO DAILY [facility] Last Admin: 02/09/18 08:48 Dose: 75 mg Dextrose (Dextrose 50% Inj) 0 ml IV STAT PRN; Protocol PRN Reason: Hypoglycemia Protocol Last Admin: 02/12/18 05:34 Dose: 50 ml Dextrose (Glutose 15) 0 gm PO ONCE PRN; Protocol PRN Reason: Hypoglycemia Protocol Dextrose (Dextrose 50% Inj) 0 ml IV STAT PRN; Protocol PRN Reason: Hypoglycemia Protocol Dextrose (Glutose 15) 0 gm PO ONCE PRN; Protocol PRN Reason: Hypoglycemia Protocol Glucagon (Glucagen Diagnostic Kit) 0 mg IM STAT PRN; Protocol PRN Reason: Hypoglycemia Protocol Glucagon (Glucagen Diagnostic Kit) 0 mg IM STAT PRN; Protocol PRN Reason: Hypoglycemia Protocol Linezolid (Zyvox 600mg/300ml D5w) 600 mg in 300 mls @ 300 mls/hr IVPB Q12 [facility] PRN Reason: Protocol Last Admin: 02/12/18 09:34 Dose: 300 mls/hr Insulin Detemir (Levemir) 10 units SC HS [facility] Insulin Detemir (Levemir) 5 units SC DAILY [facility] Insulin Human Regular (Humulin R) 0 units SC ACHS [facility] PRN Reason: Protocol Last Admin: 02/12/18 06:38 Dose: Not Given Lactic Acid (Lac-Hydrin 12% Lotion (225 G)) 1 applic TOP TID PRN PRN Reason: Itching / Pruritus Lactulose (Enulose) 10 gm PO DAILY [facility] Last Admin: 02/12/18 09:25 Dose: 10 gm Lidocaine (Lidoderm) 3 ea TD DAILY [facility] Last Admin: 02/12/18 09:27 Dose: 3 ea Losartan Potassium (Cozaar) 25 mg PO DAILY [facility] Last Admin: 02/12/18 09:23 Dose: 25 mg Mirtazapine (Remeron) 30 mg PO HS [facility] Last Admin: 02/11/18 21:13 Dose: 30 mg Morphine Sulfate (Morphine Immediate Release Tab) 15 mg PO Q4 PRN PRN Reason: Pain, moderate (4-7) Last Admin: 02/10/18 21:05 Dose: 15 mg Ondansetron HCl (Zofran Inj) 4 mg IVP Q4 PRN PRN Reason: Nausea/Vomiting Sennosides (Senokot Tab) 17.2 mg PO HS [facility] Last Admin: 02/11/18 21:13 Dose: 17.2 mg Tamsulosin HCl (Flomax) 0.4 mg PO DAILY [facility] Last Admin: 02/12/18 09:23 Dose: 0.4 mg - Labs Labs: 02/11/18 04:25 18 06:15 PT 11.9 Seconds (9.8-13.1) 01/24/18 04:20 INR 1.1 (0.9-1.2) 01/24/18 04:20 APTT 46.2 Seconds (25.6-37.1) H D 01/24/18 04:20 - Constitutional Appears: Non-toxic, No Acute Distress - Eye Exam Eye Exam: Normal appearance. absent: Scleral icterus - Neck Exam Neck Exam: Normal Inspection - Respiratory Exam Respiratory Exam: Clear to Ausculation Bilateral, NORMAL BREATHING PATTERN - Cardiovascular Exam Cardiovascular Exam: REGULAR RHYTHM, +S1, +S2 - GI/Abdominal Exam GI & Abdominal Exam: Soft. absent: Tenderness - Extremities Exam Additional comments: left BKA Assessment and Plan - Assessment and Plan (Free Text) Assessment: 67yo F admitted for gangrene s/p L BKA on 01/24/18 now with left parietal stroke and hypoglycemia overnight Left parietal-occipital stroke - MRI brain: subacute subdural hemorrhage inferior to L temporal lobe; chronic lacunar infarct within the R thalamus. Mild atrophy - Neurology consult: Dr. 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 Levemir to 5 units daily in the a.m. - Hypoglycemia protocol and insulin coverage scale. - Accuchecks ACHS. - Diabetic diet. R shoulder pain- Partial rotator cuff tear - s/p fall - Lidoderm patch - PT/OT Leukocytosis, non specific- not resolving with no fever overnight - c/w linezolid 600 mg Q12 (day 9) - I.D. input appreciated NAI on CKD- Renal US: unremarkable - improving - Nephro consulted: Dr. Schultz; recs appreciated: may begin low dose ARB - Encourage Hydration Altered mental status- Improving - Carotid US: Stenosis at bilateral external carotid arteries >90% - Pt. alert and oriented times three today urinary retention - Resolved Coronary Artery Disease - c/w aspirin - plavix held 2/2 recent stroke findings - Dr. Mcdaniel Cardiology input appreciated Diet - Swallow eval: pending DTI, sacrum - wound care daily DVT prophylaxis -SCD -ASA 81mg
--- NOTE | 2018-02-12 12:54 | CP.PCM.PN ---
Objective - Vital Signs/Intake and Output Vital Signs (last 24 hours): Temp Pulse Resp BP Pulse Ox 98.5 F 100 H 18 122/72 98 02/12/18 12:48 02/12/18 12:48 02/12/18 12:48 02/12/18 12:48 02/12/18 12:48 - Medications Medications: Current Medications Acetaminophen (Tylenol 325mg Tab) 650 mg PO Q6 PRN PRN Reason: Pain, Mild (1-3) Last Admin: 02/08/18 16:54 Dose: 650 mg Acetaminophen (Tylenol 325mg Tab) 325 mg PO BID [facility] Last Admin: 02/12/18 12:24 Dose: 325 mg Aspirin (Ecotrin) 81 mg PO DAILY [facility] Last Admin: 02/12/18 09:32 Dose: 81 mg Atorvastatin Calcium (Lipitor) 40 mg PO HS [facility] Last Admin: 02/11/18 21:13 Dose: 40 mg Benzocaine/Menthol (Cepacol Sore Throat) 1 grazyna PO Q2 PRN PRN Reason: Sore Throat Last Admin: 01/27/18 11:03 Dose: 1 grazyna Bethanechol Chloride (Urecholine) 10 mg PO TID [facility] Carvedilol (Coreg) 3.125 mg PO Q12 [facility] Last Admin: 02/12/18 09:25 Dose: 3.125 mg Clopidogrel Bisulfate (Plavix) 75 mg PO DAILY [facility] Last Admin: 02/09/18 08:48 Dose: 75 mg Dextrose (Dextrose 50% Inj) 0 ml IV STAT PRN; Protocol PRN Reason: Hypoglycemia Protocol Last Admin: 02/12/18 05:34 Dose: 50 ml Dextrose (Glutose 15) 0 gm PO ONCE PRN; Protocol PRN Reason: Hypoglycemia Protocol Dextrose (Dextrose 50% Inj) 0 ml IV STAT PRN; Protocol PRN Reason: Hypoglycemia Protocol Dextrose (Glutose 15) 0 gm PO ONCE PRN; Protocol PRN Reason: Hypoglycemia Protocol Glucagon (Glucagen Diagnostic Kit) 0 mg IM STAT PRN; Protocol PRN Reason: Hypoglycemia Protocol Glucagon (Glucagen Diagnostic Kit) 0 mg IM STAT PRN; Protocol PRN Reason: Hypoglycemia Protocol Linezolid (Zyvox 600mg/300ml D5w) 600 mg in 300 mls @ 300 mls/hr IVPB Q12 [facility] PRN Reason: Protocol Last Admin: 02/12/18 09:34 Dose: 300 mls/hr Insulin Detemir (Levemir) 10 units SC HS [facility] Insulin Detemir (Levemir) 5 units SC DAILY [facility] Insulin Human Regular (Humulin R) 0 units SC ACHS [facility] PRN Reason: Protocol Last Admin: 02/12/18 12:23 Dose: 3 units Lactic Acid (Lac-Hydrin 12% Lotion (225 G)) 1 applic TOP TID PRN PRN Reason: Itching / Pruritus Lactulose (Enulose) 10 gm PO DAILY [facility] Last Admin: 02/12/18 09:25 Dose: 10 gm Lidocaine (Lidoderm) 3 ea TD DAILY [facility] Last Admin: 02/12/18 09:27 Dose: 3 ea Losartan Potassium (Cozaar) 25 mg PO DAILY [facility] Last Admin: 02/12/18 09:23 Dose: 25 mg Mirtazapine (Remeron) 30 mg PO HS [facility] Last Admin: 02/11/18 21:13 Dose: 30 mg Morphine Sulfate (Morphine Immediate Release Tab) 15 mg PO Q4 PRN PRN Reason: Pain, moderate (4-7) Last Admin: 02/10/18 21:05 Dose: 15 mg Ondansetron HCl (Zofran Inj) 4 mg IVP Q4 PRN PRN Reason: Nausea/Vomiting Sennosides (Senokot Tab) 17.2 mg PO HS [facility] Last Admin: 02/11/18 21:13 Dose: 17.2 mg Tamsulosin HCl (Flomax) 0.4 mg PO DAILY [facility] Last Admin: 02/12/18 09:23 Dose: 0.4 mg - Labs Labs: 02/11/18 04:25 02/12/18 06:15 PT 11.9 Seconds (9.8-13.1) 01/24/18 04:20 INR 1.1 (0.9-1.2) 01/24/18 04:20 APTT 46.2 Seconds (25.6-37.1) H D 01/24/18 04:20 Assessment and Plan (1) Acute kidney injury Status: Acute (2) CKD (chronic kidney disease), stage III Status: Chronic (3) Systolic CHF, chronic Status: Chronic (4) Anemia Status: Chronic (5) PVD (peripheral vascular disease) Status: Chronic (6) Urinary retention Status: Acute
[2018-02-13] MEDS: Insulin Regular 100 units/ml SC SCH ×4 (06:38→21:50)
[2018-02-13] MEDS: Morphine 15 mg Immediate Release Tab PO PRN ×3 (06:44→21:59)
[2018-02-13 07:36] LABS: HEMOGLOBIN 10.7 g/dL (12.0-16.0); MEAN CELL VOLUME 86.6 fl (81.0-99.0); MEAN CORPUSCULAR HEMOGLOBIN 29.1 pg (27.0-31.0); MEAN CORPUSCULAR HGB CONC 33.6 g/dL (33.0-37.0); RBC 3.67 Mil/uL (3.80-5.20); RED CELL DISTRIBUTION WIDTH 13.6 % (11.5-14.5); WHITE BLOOD COUNT 16.9 K/uL (4.8-10.8)
[2018-02-13 07:42] LABS: ALB/GLOB RATIO 0.8 (1.0-2.1); ALBUMIN 2.8 g/dL (3.5-5.0); CALCIUM 8.6 mg/dL (8.4-10.2)
[2018-02-13] MEDS: Lidocaine 5% Patch TD SCH (08:23)
[2018-02-13] MEDS: Linezolid 600 mg in D5W 300 ml 600 MG/300 ML BAG IVPB SCH ×2 (08:24→21:31)
--- NOTE | 2018-02-13 08:24 | CP.PCM.PN ---
Subjective - Date & Time of Evaluation Date of Evaluation: 02/13/18 Time of Evaluation: 09:15 - Subjective Subjective: Pt seen and examined at bedside. Pt reports slight improvement in symptoms: R shoulder pain, ambulating, bowel movement and urinary movement. Pt able to state her name, [facility], President as "garima mix". Pt denies cp/sob/n/v. Reports last bowel movement yesterday but feels it wasn't complete. Objective - Vital Signs/Intake and Output Vital Signs (last 24 hours): Temp Pulse Resp BP Pulse Ox 98.2 F 86 18 135/74 96 02/13/18 08:08 02/13/18 08:22 02/13/18 08:08 02/13/18 08:22 02/13/18 08:08 - Medications Medications: Current Medications Acetaminophen (Tylenol 325mg Tab) 650 mg PO Q6 PRN PRN Reason: Pain, Mild (1-3) Last Admin: 02/08/18 16:54 Dose: 650 mg Acetaminophen (Tylenol 325mg Tab) 325 mg PO BID [facility] Last Admin: 02/12/18 16:38 Dose: 325 mg Aspirin (Ecotrin) 81 mg PO DAILY [facility] Last Admin: 02/13/18 08:22 Dose: 81 mg Atorvastatin Calcium (Lipitor) 40 mg PO HS [facility] Last Admin: 02/12/18 21:28 Dose: 40 mg Benzocaine/Menthol (Cepacol Sore Throat) 1 grazyna PO Q2 PRN PRN Reason: Sore Throat Last Admin: 01/27/18 11:03 Dose: 1 grazyna Bethanechol Chloride (Urecholine) 10 mg PO TID [facility] Last Admin: 02/13/18 08:22 Dose: 10 mg Carvedilol (Coreg) 3.125 mg PO Q12 [facility] Last Admin: 02/13/18 08:22 Dose: 3.125 mg Clopidogrel Bisulfate (Plavix) 75 mg PO DAILY [facility] Last Admin: 02/09/18 08:48 Dose: 75 mg Dextrose (Dextrose 50% Inj) 0 ml IV STAT PRN; Protocol PRN Reason: Hypoglycemia Protocol Last Admin: 02/12/18 05:34 Dose: 50 ml Dextrose (Glutose 15) 0 gm PO ONCE PRN; Protocol PRN Reason: Hypoglycemia Protocol Dextrose (Dextrose 50% Inj) 0 ml IV STAT PRN; Protocol PRN Reason: Hypoglycemia Protocol Dextrose (Glutose 15) 0 gm PO ONCE PRN; Protocol PRN Reason: Hypoglycemia Protocol Glucagon (Glucagen Diagnostic Kit) 0 mg IM STAT PRN; Protocol PRN Reason: Hypoglycemia Protocol Glucagon (Glucagen Diagnostic Kit) 0 mg IM STAT PRN; Protocol PRN Reason: Hypoglycemia Protocol Linezolid (Zyvox 600mg/300ml D5w) 600 mg in 300 mls @ 300 mls/hr IVPB Q12 [facility] PRN Reason: Protocol Last Admin: 02/12/18 21:30 Dose: 300 mls/hr Insulin Detemir (Levemir) 10 units SC HS [facility] Insulin Detemir (Levemir) 5 units SC DAILY [facility] Insulin Human Regular (Humulin R) 0 units SC ACHS [facility] PRN Reason: Protocol Last Admin: 02/13/18 06:38 Dose: 2 units Lactic Acid (Lac-Hydrin 12% Lotion (225 G)) 1 applic TOP TID PRN PRN Reason: Itching / Pruritus Lactulose (Enulose) 10 gm PO DAILY [facility] Last Admin: 02/12/18 09:25 Dose: 10 gm Lidocaine (Lidoderm) 3 ea TD DAILY [facility] Last Admin: 02/13/18 08:23 Dose: 3 ea Losartan Potassium (Cozaar) 25 mg PO DAILY [facility] Last Admin: 02/13/18 08:22 Dose: 25 mg Mirtazapine (Remeron) 30 mg PO HS [facility] Last Admin: 02/12/18 21:29 Dose: 30 mg Morphine Sulfate (Morphine Immediate Release Tab) 15 mg PO Q4 PRN PRN Reason: Pain, moderate (4-7) Last Admin: 02/13/18 06:44 Dose: 15 mg Ondansetron HCl (Zofran Inj) 4 mg IVP Q4 PRN PRN Reason: Nausea/Vomiting Sennosides (Senokot Tab) 17.2 mg PO HS [facility] Last Admin: 02/12/18 21:28 Dose: 17.2 mg Tamsulosin HCl (Flomax) 0.4 mg PO DAILY [facility] Last Admin: 02/13/18 08:21 Dose: 0.4 mg - Labs Labs: 02/13/18 05:20 02/13/18 05:20 PT 11.9 Seconds (9.8-13.1) 01/24/18 04:20 INR 1.1 (0.9-1.2) 01/24/18 04:20 APTT 46.2 Seconds (25.6-37.1) H D 01/24/18 04:20 - Constitutional Appears: Well, No Acute Distress - Eye Exam Eye Exam: EOMI - Neck Exam Neck Exam: Full ROM - Respiratory Exam Respiratory Exam: Clear to Ausculation Bilateral. absent: Wheezes - Cardiovascular Exam Cardiovascular Exam: REGULAR RHYTHM, +S1, +S2 - GI/Abdominal Exam GI & Abdominal Exam: Soft, Normal Bowel Sounds. absent: Tenderness - Extremities Exam Extremities Exam: absent: Calf Tenderness Additional comments: s/p L BKA. limited gait. working with pt - Neurological Exam Neurological Exam: Abnormal Gait, Alert, Awake - Psychiatric Exam Psychiatric exam: Normal Affect, Normal Mood Assessment and Plan - Assessment and Plan (Free Text) Plan: 67yo F admitted for gangrene s/p L BKA on 01/24/18 now with left parietal stroke and hypoglycemia overnight Left parietal-occipital stroke - MRI brain: subacute subdural hemorrhage inferior to L temporal lobe; chronic lacunar infarct within the R thalamus. Mild atrophy - Neurology consult: Dr. Phillips- recommendations appreciated: recommend Neurointerventionalist: Dr. 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 Levemir to 5 units daily in the a.m. - glucose levels improved and not noted to be hypoglycemic - Hypoglycemia protocol and insulin coverage scale. - Accuchecks ACHS. - Diabetic diet. R shoulder pain- Partial rotator cuff tear - s/p fall; improving - Lidoderm patch - MRI shoulder: please see extensive report - PT/OT Leukocytosis, non specific- not resolving with no fever overnight - c/w linezolid 600 mg Q12 (day 10) - I.D. input appreciated NAI on CKD- Renal US: unremarkable - improving - Nephro consulted: Dr. Schultz; recs appreciated: low dose ARB - Encourage Hydration Altered mental status- Improving - Carotid US: Stenosis at bilateral external carotid arteries >90% - Pt. alert and oriented times two today: unable to state date. urinary retention - Resolved - continue to monitor for urinary sxs Coronary Artery Disease - c/w aspirin - plavix held 2/2 recent stroke findings - Dr. Mcdaniel Cardiology input appreciated Diet - Swallow eval - Pt tolerating PO diet. DTI, sacrum - wound care daily DVT prophylaxis -SCD -ASA 81mg; plavix held
--- NOTE | 2018-02-13 09:18 | CP.PCM.PN ---
Subjective - Date & Time of Evaluation Date of Evaluation: 02/13/18 Time of Evaluation: 09:18 - Subjective Subjective: Ms. Carias was seen and examined at the bedside. She is alert, oriented, speaks mainly [place]. She denies any headache, dizziness, lightheadedness, but complains of severe left BKA stump pain. She is able to raise affected leg, follow simple commands. She has a very minimal right arm drift. She is able to feed herself. CT scan of the head done 02/11/2018 showed stable small subdural hematoma medial left middle cranial fossa. No additional intracranial hemorrhage appreciated in the interval. Bilateral thalamic and left basal ganglia chronic lacunes reiterated as well as age related neuro degenerative change. Ultrasound of the carotid showed high grade stenoses are identified in the external carotid artery origins tato likely greater than 90%.There was no untoward events overnight. Objective - Vital Signs/Intake and Output Vital Signs (last 24 hours): Temp Pulse Resp BP Pulse Ox 98.2 F 86 18 135/74 96 02/13/18 08:08 02/13/18 08:22 02/13/18 08:08 02/13/18 08:22 02/13/18 08:08 - Medications Medications: Current Medications Acetaminophen (Tylenol 325mg Tab) 650 mg PO Q6 PRN PRN Reason: Pain, Mild (1-3) Last Admin: 02/08/18 16:54 Dose: 650 mg Acetaminophen (Tylenol 325mg Tab) 325 mg PO BID [facility] Last Admin: 02/13/18 08:25 Dose: 325 mg Aspirin (Ecotrin) 81 mg PO DAILY [facility] Last Admin: 02/13/18 08:22 Dose: 81 mg Atorvastatin Calcium (Lipitor) 40 mg PO HS [facility] Last Admin: 02/12/18 21:28 Dose: 40 mg Benzocaine/Menthol (Cepacol Sore Throat) 1 grazyna PO Q2 PRN PRN Reason: Sore Throat Last Admin: 01/27/18 11:03 Dose: 1 grazyna Bethanechol Chloride (Urecholine) 10 mg PO TID [facility] Last Admin: 02/13/18 08:22 Dose: 10 mg Carvedilol (Coreg) 3.125 mg PO Q12 [facility] Last Admin: 02/13/18 08:22 Dose: 3.125 mg Clopidogrel Bisulfate (Plavix) 75 mg PO DAILY [facility] Last Admin: 02/09/18 08:48 Dose: 75 mg Dextrose (Dextrose 50% Inj) 0 ml IV STAT PRN; Protocol PRN Reason: Hypoglycemia Protocol Last Admin: 02/12/18 05:34 Dose: 50 ml Dextrose (Glutose 15) 0 gm PO ONCE PRN; Protocol PRN Reason: Hypoglycemia Protocol Dextrose (Dextrose 50% Inj) 0 ml IV STAT PRN; Protocol PRN Reason: Hypoglycemia Protocol Dextrose (Glutose 15) 0 gm PO ONCE PRN; Protocol PRN Reason: Hypoglycemia Protocol Glucagon (Glucagen Diagnostic Kit) 0 mg IM STAT PRN; Protocol PRN Reason: Hypoglycemia Protocol Glucagon (Glucagen Diagnostic Kit) 0 mg IM STAT PRN; Protocol PRN Reason: Hypoglycemia Protocol Linezolid (Zyvox 600mg/300ml D5w) 600 mg in 300 mls @ 300 mls/hr IVPB Q12 [facility] PRN Reason: Protocol Last Admin: 02/13/18 08:24 Dose: 300 mls/hr Insulin Detemir (Levemir) 10 units SC HS [facility] Insulin Detemir (Levemir) 5 units SC DAILY [facility] Insulin Human Regular (Humulin R) 0 units SC ACHS [facility] PRN Reason: Protocol Last Admin: 02/13/18 06:38 Dose: 2 units Lactic Acid (Lac-Hydrin 12% Lotion (225 G)) 1 applic TOP TID PRN PRN Reason: Itching / Pruritus Lactulose (Enulose) 10 gm PO DAILY [facility] Last Admin: 02/12/18 09:25 Dose: 10 gm Lidocaine (Lidoderm) 3 ea TD DAILY [facility] Last Admin: 02/13/18 08:23 Dose: 3 ea Losartan Potassium (Cozaar) 25 mg PO DAILY [facility] Last Admin: 02/13/18 08:22 Dose: 25 mg Mirtazapine (Remeron) 30 mg PO HS [facility] Last Admin: 02/12/18 21:29 Dose: 30 mg Morphine Sulfate (Morphine Immediate Release Tab) 15 mg PO Q4 PRN PRN Reason: Pain, moderate (4-7) Last Admin: 02/13/18 06:44 Dose: 15 mg Ondansetron HCl (Zofran Inj) 4 mg IVP Q4 PRN PRN Reason: Nausea/Vomiting Sennosides (Senokot Tab) 17.2 mg PO HS [facility] Last Admin: 02/12/18 21:28 Dose: 17.2 mg Tamsulosin HCl (Flomax) 0.4 mg PO DAILY [facility] Last Admin: 02/13/18 08:21 Dose: 0.4 mg - Labs Labs: 02/13/18 05:20 02/13/18 05:20 PT 11.9 Seconds (9.8-13.1) 01/24/18 04:20 INR 1.1 (0.9-1.2) 01/24/18 04:20 APTT 46.2 Seconds (25.6-37.1) H D 01/24/18 04:20 - Constitutional Appears: No Acute Distress - Head Exam Head Exam: NORMAL INSPECTION - Eye Exam Pupil Exam: PERRL - Neurological Exam Neurological Exam: Alert, Awake, Oriented x3 Neuro motor strength exam: Left Upper Extremity: 5, Right Upper Extremity: 4, Left Lower Extremity: 3, Right Lower Extremity: 4 Additional comments: Neurological unchanged from previous examination. Assessment and Plan (1) CVA (cerebral vascular accident) Assessment & Plan: Case discussed with Dr. Phillips, continue all current medical, physical, and occupational therapies. Recommend neurointerventional consult for the greater than 90% stenoses of the bilateral common external carotid artery. Recommend repeat Ct scan of the head in couple of days to evaluate the subdural hematoma. Status: Acute
[2018-02-13] MEDS: Insulin Detemir 100 Units/ml Inj SC SCH ×2 (10:00→21:51)
--- NOTE | 2018-02-13 13:27 | CP.PCM.PN ---
Subjective - Date & Time of Evaluation Date of Evaluation: 02/13/18 Time of Evaluation: 09:00 - Subjective Subjective: denies fever awake alert Objective - Vital Signs/Intake and Output Vital Signs (last 24 hours): Temp Pulse Resp BP Pulse Ox 98.4 F 89 18 97/61 L 97 02/13/18 12:14 02/13/18 12:14 02/13/18 12:14 02/13/18 12:14 02/13/18 12:14 - Medications Medications: Current Medications Acetaminophen (Tylenol 325mg Tab) 650 mg PO Q6 PRN PRN Reason: Pain, Mild (1-3) Last Admin: 02/08/18 16:54 Dose: 650 mg Acetaminophen (Tylenol 325mg Tab) 325 mg PO BID [facility] Last Admin: 02/13/18 08:25 Dose: 325 mg Aspirin (Ecotrin) 81 mg PO DAILY [facility] Last Admin: 02/13/18 08:22 Dose: 81 mg Atorvastatin Calcium (Lipitor) 40 mg PO HS [facility] Last Admin: 02/12/18 21:28 Dose: 40 mg Benzocaine/Menthol (Cepacol Sore Throat) 1 grazyna PO Q2 PRN PRN Reason: Sore Throat Last Admin: 01/27/18 11:03 Dose: 1 grazyna Bethanechol Chloride (Urecholine) 10 mg PO TID [facility] Last Admin: 02/13/18 08:22 Dose: 10 mg Carvedilol (Coreg) 3.125 mg PO Q12 [facility] Last Admin: 02/13/18 08:22 Dose: 3.125 mg Clopidogrel Bisulfate (Plavix) 75 mg PO DAILY [facility] Last Admin: 02/09/18 08:48 Dose: 75 mg Dextrose (Dextrose 50% Inj) 0 ml IV STAT PRN; Protocol PRN Reason: Hypoglycemia Protocol Last Admin: 02/12/18 05:34 Dose: 50 ml Dextrose (Glutose 15) 0 gm PO ONCE PRN; Protocol PRN Reason: Hypoglycemia Protocol Dextrose (Dextrose 50% Inj) 0 ml IV STAT PRN; Protocol PRN Reason: Hypoglycemia Protocol Dextrose (Glutose 15) 0 gm PO ONCE PRN; Protocol PRN Reason: Hypoglycemia Protocol Glucagon (Glucagen Diagnostic Kit) 0 mg IM STAT PRN; Protocol PRN Reason: Hypoglycemia Protocol Glucagon (Glucagen Diagnostic Kit) 0 mg IM STAT PRN; Protocol PRN Reason: Hypoglycemia Protocol Linezolid (Zyvox 600mg/300ml D5w) 600 mg in 300 mls @ 300 mls/hr IVPB Q12 [facility] PRN Reason: Protocol Last Admin: 02/13/18 08:24 Dose: 300 mls/hr Insulin Detemir (Levemir) 5 units SC DAILY [facility] Last Admin: 02/13/18 10:00 Dose: 5 unit Insulin Detemir (Levemir) 10 units SC HS [facility] Insulin Human Regular (Humulin R) 0 units SC ACHS [facility] PRN Reason: Protocol Last Admin: 02/13/18 12:11 Dose: 4 units Lactic Acid (Lac-Hydrin 12% Lotion (225 G)) 1 applic TOP TID PRN PRN Reason: Itching / Pruritus Lactulose (Enulose) 10 gm PO DAILY [facility] Last Admin: 02/12/18 09:25 Dose: 10 gm Lidocaine (Lidoderm) 3 ea TD DAILY [facility] Last Admin: 02/13/18 08:23 Dose: 3 ea Losartan Potassium (Cozaar) 25 mg PO DAILY [facility] Last Admin: 02/13/18 08:22 Dose: 25 mg Mirtazapine (Remeron) 30 mg PO HS [facility] Last Admin: 02/12/18 21:29 Dose: 30 mg Morphine Sulfate (Morphine Immediate Release Tab) 15 mg PO Q4 PRN PRN Reason: Pain, moderate (4-7) Last Admin: 02/13/18 06:44 Dose: 15 mg Ondansetron HCl (Zofran Inj) 4 mg IVP Q4 PRN PRN Reason: Nausea/Vomiting Sennosides (Senokot Tab) 17.2 mg PO HS [facility] Last Admin: 02/12/18 21:28 Dose: 17.2 mg Tamsulosin HCl (Flomax) 0.4 mg PO DAILY [facility] Last Admin: 02/13/18 08:21 Dose: 0.4 mg - Labs Labs: 02/13/18 05:20 02/13/18 05:20 PT 11.9 Seconds (9.8-13.1) 01/24/18 04:20 INR 1.1 (0.9-1.2) 01/24/18 04:20 APTT 46.2 Seconds (25.6-37.1) H D 01/24/18 04:20 - Constitutional Appears: Non-toxic, Cachectic, Chronically Ill - Head Exam Head Exam: NORMOCEPHALIC - Eye Exam Eye Exam: absent: Scleral icterus - ENT Exam ENT Exam: Mucous Membranes Dry - Neck Exam Neck Exam: absent: Lymphadenopathy - Respiratory Exam Respiratory Exam: Decreased Breath Sounds - Cardiovascular Exam Cardiovascular Exam: REGULAR RHYTHM - GI/Abdominal Exam GI & Abdominal Exam: Distended, Soft - Rectal Exam Rectal Exam: Deferred - Exam Exam: NORMAL INSPECTION - Extremities Exam Extremities Exam: absent: Pedal Edema Additional comments: left BKA redness / swelling less - Back Exam Back Exam: absent: CVA tenderness (L), CVA tenderness (R) - Neurological Exam Neurological Exam: Alert, Awake - Psychiatric Exam Psychiatric exam: Depressed - Skin Skin Exam: Dry Assessment and Plan (1) Gangrene Status: Acute (2) Acute kidney injury Status: Acute (3) CAD (coronary artery disease) Status: Acute (4) Cardiomyopathy, dilated Status: Acute (5) Diabetic foot ulcer Status: Acute (6) Hyperglycemia due to type 2 diabetes mellitus Status: Acute (7) Osteomyelitis Status: Acute - Assessment and Plan (Free Text) Assessment: s/p CVA htn dm left BKA PVD cellulitis leukocytosis noted- may nbe reactive no new positive cul;tures surgery / wound care on board will need extensive rehab Plan: consider d/c IV antibiotics
[2018-02-13] MEDS: Lactulose 10 gm/15 ml Syrup PO SCH (15:06)
[2018-02-14 06:57] LABS: ALB/GLOB RATIO 0.8 (1.0-2.1); ALBUMIN 2.9 g/dL (3.5-5.0); CALCIUM 9.1 mg/dL (8.4-10.2)
[2018-02-14 07:31] LABS: HEMOGLOBIN 11.3 g/dL (12.0-16.0); MEAN CORPUSCULAR HEMOGLOBIN 29.5 pg (27.0-31.0); RBC 3.82 Mil/uL (3.80-5.20); RED CELL DISTRIBUTION WIDTH 13.3 % (11.5-14.5); WHITE BLOOD COUNT 15.1 K/uL (4.8-10.8)
[2018-02-14] MEDS: Insulin Regular 100 units/ml SC SCH ×4 (07:54→21:17)
[2018-02-14] MEDS: Lactulose 10 gm/15 ml Syrup PO SCH (09:08)
[2018-02-14] MEDS: Insulin Detemir 100 Units/ml Inj SC SCH ×2 (09:09→21:18)
[2018-02-14] MEDS: Lidocaine 5% Patch TD SCH (09:11)
[2018-02-14] MEDS: Linezolid 600 mg in D5W 300 ml 600 MG/300 ML BAG IVPB SCH ×2 (09:12→21:08)
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
--- NOTE | 2018-02-14 10:40 | CP.PCM.PN ---
Subjective - Date & Time of Evaluation Date of Evaluation: 02/14/18 Time of Evaluation: 10:37 - Subjective Subjective: Ms. Carias was seen and examined at the bedside. She is alert, oriented, speaks mainly [place]. She denies any headache, dizziness, lightheadedness, but complains of severe left BKA stump pain. She is able to raise affected leg, follow simple commands. She has a very minimal right arm drift. She is able to feed herself. She had episode of vomiting last night, Zofran was given and with relief. Objective - Vital Signs/Intake and Output Vital Signs (last 24 hours): Temp Pulse Resp BP Pulse Ox 98.5 F 86 18 121/72 95 02/14/18 08:00 02/14/18 08:00 02/14/18 08:00 02/14/18 09:06 02/14/18 08:00 - Medications Medications: Current Medications Acetaminophen (Tylenol 325mg Tab) 650 mg PO Q6 PRN PRN Reason: Pain, Mild (1-3) Last Admin: 02/08/18 16:54 Dose: 650 mg Acetaminophen (Tylenol 325mg Tab) 325 mg PO BID [facility] Last Admin: 02/14/18 09:13 Dose: Not Given Aspirin (Ecotrin) 81 mg PO DAILY [facility] Last Admin: 02/14/18 09:08 Dose: 81 mg Atorvastatin Calcium (Lipitor) 40 mg PO HS [facility] Last Admin: 02/13/18 21:39 Dose: 40 mg Benzocaine/Menthol (Cepacol Sore Throat) 1 grazyna PO Q2 PRN PRN Reason: Sore Throat Last Admin: 01/27/18 11:03 Dose: 1 grazyna Bethanechol Chloride (Urecholine) 10 mg PO TID [facility] Last Admin: 02/14/18 09:12 Dose: 10 mg Carvedilol (Coreg) 3.125 mg PO Q12 [facility] Last Admin: 02/14/18 09:06 Dose: 3.125 mg Clopidogrel Bisulfate (Plavix) 75 mg PO DAILY [facility] Last Admin: 02/09/18 08:48 Dose: 75 mg Dextrose (Dextrose 50% Inj) 0 ml IV STAT PRN; Protocol PRN Reason: Hypoglycemia Protocol Last Admin: 02/12/18 05:34 Dose: 50 ml Dextrose (Glutose 15) 0 gm PO ONCE PRN; Protocol PRN Reason: Hypoglycemia Protocol Dextrose (Dextrose 50% Inj) 0 ml IV STAT PRN; Protocol PRN Reason: Hypoglycemia Protocol Dextrose (Glutose 15) 0 gm PO ONCE PRN; Protocol PRN Reason: Hypoglycemia Protocol Glucagon (Glucagen Diagnostic Kit) 0 mg IM STAT PRN; Protocol PRN Reason: Hypoglycemia Protocol Glucagon (Glucagen Diagnostic Kit) 0 mg IM STAT PRN; Protocol PRN Reason: Hypoglycemia Protocol Linezolid (Zyvox 600mg/300ml D5w) 600 mg in 300 mls @ 300 mls/hr IVPB Q12 [facility] PRN Reason: Protocol Last Admin: 02/14/18 09:12 Dose: 300 mls/hr Insulin Detemir (Levemir) 5 units SC DAILY [facility] Last Admin: 02/14/18 09:09 Dose: Not Given Insulin Detemir (Levemir) 10 units SC HS [facility] Last Admin: 02/13/18 21:51 Dose: 10 u Insulin Human Regular (Humulin R) 0 units SC ACHS [facility] PRN Reason: Protocol Last Admin: 02/14/18 07:54 Dose: Not Given Lactic Acid (Lac-Hydrin 12% Lotion (225 G)) 1 applic TOP TID PRN PRN Reason: Itching / Pruritus Lactulose (Enulose) 10 gm PO DAILY [facility] Last Admin: 02/14/18 09:08 Dose: Not Given Lidocaine (Lidoderm) 3 ea TD DAILY [facility] Last Admin: 02/14/18 09:11 Dose: Not Given Losartan Potassium (Cozaar) 25 mg PO DAILY [facility] Last Admin: 02/14/18 09:07 Dose: 25 mg Mirtazapine (Remeron) 30 mg PO HS [facility] Last Admin: 02/13/18 21:39 Dose: 30 mg Morphine Sulfate (Morphine Immediate Release Tab) 15 mg PO Q4 PRN PRN Reason: Pain, moderate (4-7) Last Admin: 02/13/18 21:59 Dose: 15 mg Ondansetron HCl (Zofran Inj) 4 mg IVP Q4 PRN PRN Reason: Nausea/Vomiting Last Admin: 02/14/18 04:24 Dose: 4 mg Sennosides (Senokot Tab) 17.2 mg PO HS [facility] Last Admin: 02/13/18 21:36 Dose: 17.2 mg Tamsulosin HCl (Flomax) 0.4 mg PO DAILY [facility] Last Admin: 02/14/18 09:08 Dose: 0.4 mg - Labs Labs: 02/14/18 04:25 02/14/18 04:25 PT 11.9 Seconds (9.8-13.1) 01/24/18 04:20 INR 1.1 (0.9-1.2) 01/24/18 04:20 APTT 46.2 Seconds (25.6-37.1) H D 01/24/18 04:20 - Constitutional Appears: No Acute Distress - Head Exam Head Exam: NORMAL INSPECTION - Neurological Exam Neurological Exam: Alert, Awake, Oriented x3 Neuro motor strength exam: Left Upper Extremity: 5, Right Upper Extremity: 5, Left Lower Extremity: 2/1 (very tender), Right Lower Extremity: 4 Additional comments: Neurological unchanged from previous examination. Assessment and Plan (1) CVA (cerebral vascular accident) Assessment & Plan: Case discussed with Dr. Andujar, continue all current medical, physical, and occupational therapies. Recommend neurointerventional consult for the greater than 90% stenoses of the bilateral common external carotid artery. Recommend repeat Ct scan of the head in couple of days to evaluate the subdural hematoma. Status: Acute
--- NOTE | 2018-02-14 12:45 | CP.PCM.PN ---
Subjective - Date & Time of Evaluation Date of Evaluation: 02/14/18 Time of Evaluation: 12:36 - Subjective Subjective: Infectious Disease - Dr. Palacios 67F seen and evaluated at bedside. NAD. Reports feeling nauseous overnight and had 1 episode of vomiting; no further episodes this AM after she was given Zofran. Reports continued moderate pain to left BKA stump. Denies fever, chills , chest pain, SOB, headache, dizziness. Objective - Vital Signs/Intake and Output Vital Signs (last 24 hours): Temp Pulse Resp BP Pulse Ox 98.3 F 79 18 91/54 L 98 02/14/18 11:52 02/14/18 11:52 02/14/18 11:52 02/14/18 11:52 02/14/18 11:52 - Medications Medications: Current Medications Acetaminophen (Tylenol 325mg Tab) 650 mg PO Q6 PRN PRN Reason: Pain, Mild (1-3) Last Admin: 02/08/18 16:54 Dose: 650 mg Acetaminophen (Tylenol 325mg Tab) 325 mg PO BID [facility] Last Admin: 02/14/18 09:13 Dose: Not Given Aspirin (Ecotrin) 81 mg PO DAILY [facility] Last Admin: 02/14/18 09:08 Dose: 81 mg Atorvastatin Calcium (Lipitor) 40 mg PO HS [facility] Last Admin: 02/13/18 21:39 Dose: 40 mg Benzocaine/Menthol (Cepacol Sore Throat) 1 grazyna PO Q2 PRN PRN Reason: Sore Throat Last Admin: 01/27/18 11:03 Dose: 1 grazyna Bethanechol Chloride (Urecholine) 10 mg PO TID [facility] Last Admin: 02/14/18 09:12 Dose: 10 mg Carvedilol (Coreg) 3.125 mg PO Q12 [facility] Last Admin: 02/14/18 09:06 Dose: 3.125 mg Clopidogrel Bisulfate (Plavix) 75 mg PO DAILY [facility] Last Admin: 02/09/18 08:48 Dose: 75 mg Dextrose (Dextrose 50% Inj) 0 ml IV STAT PRN; Protocol PRN Reason: Hypoglycemia Protocol Last Admin: 02/12/18 05:34 Dose: 50 ml Dextrose (Glutose 15) 0 gm PO ONCE PRN; Protocol PRN Reason: Hypoglycemia Protocol Dextrose (Dextrose 50% Inj) 0 ml IV STAT PRN; Protocol PRN Reason: Hypoglycemia Protocol Dextrose (Glutose 15) 0 gm PO ONCE PRN; Protocol PRN Reason: Hypoglycemia Protocol Glucagon (Glucagen Diagnostic Kit) 0 mg IM STAT PRN; Protocol PRN Reason: Hypoglycemia Protocol Glucagon (Glucagen Diagnostic Kit) 0 mg IM STAT PRN; Protocol PRN Reason: Hypoglycemia Protocol Glycerin (Glycerin Adult Suppository) 1 sup [place] ONCE PRN PRN Reason: Constipation Linezolid (Zyvox 600mg/300ml D5w) 600 mg in 300 mls @ 300 mls/hr IVPB Q12 [facility] PRN Reason: Protocol Last Admin: 02/14/18 09:12 Dose: 300 mls/hr Insulin Detemir (Levemir) 5 units SC DAILY [facility] Last Admin: 02/14/18 09:09 Dose: Not Given Insulin Detemir (Levemir) 10 units SC HS [facility] Last Admin: 02/13/18 21:51 Dose: 10 u Insulin Human Regular (Humulin R) 0 units SC ACHS [facility] PRN Reason: Protocol Last Admin: 02/14/18 07:54 Dose: Not Given Lactic Acid (Lac-Hydrin 12% Lotion (225 G)) 1 applic TOP TID PRN PRN Reason: Itching / Pruritus Lactulose (Enulose) 10 gm PO DAILY [facility] Last Admin: 02/14/18 09:08 Dose: Not Given Lidocaine (Lidoderm) 3 ea TD DAILY [facility] Last Admin: 02/14/18 09:11 Dose: Not Given Losartan Potassium (Cozaar) 25 mg PO DAILY [facility] Last Admin: 02/14/18 09:07 Dose: 25 mg Mirtazapine (Remeron) 30 mg PO HS [facility] Last Admin: 02/13/18 21:39 Dose: 30 mg Morphine Sulfate (Morphine Immediate Release Tab) 15 mg PO Q4 PRN PRN Reason: Pain, moderate (4-7) Last Admin: 02/13/18 21:59 Dose: 15 mg Ondansetron HCl (Zofran Inj) 4 mg IVP Q4 PRN PRN Reason: Nausea/Vomiting Last Admin: 02/14/18 04:24 Dose: 4 mg Sennosides (Senokot Tab) 17.2 mg PO HS [facility] Last Admin: 02/13/18 21:36 Dose: 17.2 mg Tamsulosin HCl (Flomax) 0.4 mg PO DAILY [facility] Last Admin: 02/14/18 09:08 Dose: 0.4 mg - Labs Labs: 02/14/18 04:25 02/14/18 04:25 PT 11.9 Seconds (9.8-13.1) 01/24/18 04:20 INR 1.1 (0.9-1.2) 01/24/18 04:20 APTT 46.2 Seconds (25.6-37.1) H D 01/24/18 04:20 - Constitutional Appears: Well, No Acute Distress - Eye Exam Eye Exam: EOMI - ENT Exam ENT Exam: Mucous Membranes Moist - Neck Exam Neck Exam: Full ROM. absent: Tenderness - Respiratory Exam Respiratory Exam: Clear to Ausculation Bilateral. absent: Respiratory Distress - Cardiovascular Exam Cardiovascular Exam: REGULAR RHYTHM, +S1, +S2 - GI/Abdominal Exam GI & Abdominal Exam: Soft, Normal Bowel Sounds - Rectal Exam Rectal Exam: Deferred - Extremities Exam Extremities Exam: Tenderness (left BKA) Additional comments: s/p left BKA with sutures and marci intact. Mild erythema noted to anterior aspect of stump - Neurological Exam Neurological Exam: Alert, Awake - Psychiatric Exam Psychiatric exam: Normal Affect, Normal Mood - Skin Skin Exam: Erythema (Anterior left BKA) Assessment and Plan - Assessment and Plan (Free Text) Assessment: s/p CVA htn dm left BKA PVD cellulitis Plan: Leukocytosis present 15.1 though decreasing (yesterday 16.9) - may be reactive No new positive cx Continue Linezolid (day 10) for total of 14 days
--- NOTE | 2018-02-14 19:43 | CP.PCM.PN ---
Subjective - Date & Time of Evaluation Date of Evaluation: 02/14/18 Time of Evaluation: 19:00 - Subjective Subjective: Patient reports some shortness of breath; otherwise, eating more, tolerating diet; no nausea/vomiting; urinating better; Objective - Vital Signs/Intake and Output Vital Signs (last 24 hours): Temp Pulse Resp BP Pulse Ox 98.7 F 88 17 103/59 L 100 02/14/18 16:08 02/14/18 16:23 02/14/18 16:08 02/14/18 16:08 02/14/18 16:23 - Medications Medications: Current Medications Acetaminophen (Tylenol 325mg Tab) 650 mg PO Q6 PRN PRN Reason: Pain, Mild (1-3) Last Admin: 02/08/18 16:54 Dose: 650 mg Acetaminophen (Tylenol 325mg Tab) 325 mg PO BID [facility] Last Admin: 02/14/18 18:14 Dose: Not Given Aspirin (Ecotrin) 81 mg PO DAILY [facility] Last Admin: 02/14/18 09:08 Dose: 81 mg Atorvastatin Calcium (Lipitor) 40 mg PO HS [facility] Last Admin: 02/13/18 21:39 Dose: 40 mg Benzocaine/Menthol (Cepacol Sore Throat) 1 grazyna PO Q2 PRN PRN Reason: Sore Throat Last Admin: 01/27/18 11:03 Dose: 1 grazyna Bethanechol Chloride (Urecholine) 10 mg PO TID [facility] Last Admin: 02/14/18 18:17 Dose: 10 mg Carvedilol (Coreg) 3.125 mg PO Q12 [facility] Last Admin: 02/14/18 09:06 Dose: 3.125 mg Clopidogrel Bisulfate (Plavix) 75 mg PO DAILY [facility] Last Admin: 02/09/18 08:48 Dose: 75 mg Dextrose (Dextrose 50% Inj) 0 ml IV STAT PRN; Protocol PRN Reason: Hypoglycemia Protocol Last Admin: 02/12/18 05:34 Dose: 50 ml Dextrose (Glutose 15) 0 gm PO ONCE PRN; Protocol PRN Reason: Hypoglycemia Protocol Dextrose (Dextrose 50% Inj) 0 ml IV STAT PRN; Protocol PRN Reason: Hypoglycemia Protocol Dextrose (Glutose 15) 0 gm PO ONCE PRN; Protocol PRN Reason: Hypoglycemia Protocol Glucagon (Glucagen Diagnostic Kit) 0 mg IM STAT PRN; Protocol PRN Reason: Hypoglycemia Protocol Glucagon (Glucagen Diagnostic Kit) 0 mg IM STAT PRN; Protocol PRN Reason: Hypoglycemia Protocol Glycerin (Glycerin Adult Suppository) 1 sup [place] ONCE PRN PRN Reason: Constipation Linezolid (Zyvox 600mg/300ml D5w) 600 mg in 300 mls @ 300 mls/hr IVPB Q12 DASHAWN PRN Reason: Protocol Last Admin: 02/14/18 09:12 Dose: 300 mls/hr Insulin Detemir (Levemir) 5 units SC DAILY [facility] Last Admin: 02/14/18 09:09 Dose: Not Given Insulin Detemir (Levemir) 10 units SC HS [facility] Last Admin: 02/13/18 21:51 Dose: 10 u Insulin Human Regular (Humulin R) 0 units SC ACHS DASHAWN PRN Reason: Protocol Last Admin: 02/14/18 18:14 Dose: Not Given Lactic Acid (Lac-Hydrin 12% Lotion (225 G)) 1 applic TOP TID PRN PRN Reason: Itching / Pruritus Lactulose (Enulose) 10 gm PO DAILY [facility] Last Admin: 02/14/18 09:08 Dose: Not Given Lidocaine (Lidoderm) 3 ea TD DAILY [facility] Last Admin: 02/14/18 09:11 Dose: Not Given Losartan Potassium (Cozaar) 25 mg PO DAILY [facility] Last Admin: 02/14/18 09:07 Dose: 25 mg Mirtazapine (Remeron) 30 mg PO HS [facility] Last Admin: 02/13/18 21:39 Dose: 30 mg Morphine Sulfate (Morphine Immediate Release Tab) 15 mg PO Q4 PRN PRN Reason: Pain, moderate (4-7) Last Admin: 02/13/18 21:59 Dose: 15 mg Ondansetron HCl (Zofran Inj) 4 mg IVP Q4 PRN PRN Reason: Nausea/Vomiting Last Admin: 02/14/18 04:24 Dose: 4 mg Sennosides (Senokot Tab) 17.2 mg PO HS [facility] Last Admin: 02/13/18 21:36 Dose: 17.2 mg Tamsulosin HCl (Flomax) 0.4 mg PO DAILY [facility] Last Admin: 02/14/18 09:08 Dose: 0.4 mg - Labs Labs: 02/14/18 04:25 02/14/18 04:25 PT 11.9 Seconds (9.8-13.1) 01/24/18 04:20 INR 1.1 (0.9-1.2) 01/24/18 04:20 APTT 46.2 Seconds (25.6-37.1) H D 01/24/18 04:20 - Constitutional Appears: Non-toxic, No Acute Distress - Eye Exam Eye Exam: absent: Scleral icterus - ENT Exam ENT Exam: Mucous Membranes Moist - Respiratory Exam Respiratory Exam: Clear to Ausculation Bilateral. absent: Respiratory Distress - Cardiovascular Exam Cardiovascular Exam: RRR, +S1, +S2. absent: JVD - GI/Abdominal Exam GI & Abdominal Exam: Soft. absent: Distended - Exam Exam: absent: Bladder Distension - Neurological Exam Neurological Exam: Alert, Awake - Psychiatric Exam Psychiatric exam: Normal Mood. absent: Agitated - Skin Skin Exam: Warm. absent: Cyanosis Assessment and Plan (1) Acute kidney injury Assessment & Plan: NAI on CKD IIIA; relatively stable renal function though serum creatinine not yet back to baseline; mild increase in serum creat expected with addition of ARB ; borderline hyperkalemia, continue same for now; -if K continues to increase, will need to consider starting kayexalate 15 g every other day; monitor for now; changing to low K diet; -avoid nephrotoxic insults -once PO intake improved, can restart low dose diuretics; Status: Acute (2) CKD (chronic kidney disease), stage III Assessment & Plan: Proteinuric kidney disease likely due to DM; continue ARB as above; Status: Chronic (3) Systolic CHF, chronic Assessment & Plan: Remains euvolemic on exam but needs close monitoring; continue b-blockers and ARB; Status: Chronic (4) Anemia Assessment & Plan: Hgb stable, monitor; Status: Chronic (5) PVD (peripheral vascular disease) Status: Chronic (6) Urinary retention Status: Acute
[2018-02-15 06:35] LABS: SQUAMOUS EPITHIAL 3 /hpf (0-5); URINE BACTERIA OCC (<OCC); URINE BILIRUBIN NEGATIVE (NEGATIVE); URINE BLOOD MODERATE (NEGATIVE); URINE CLARITY CLOUDY (Clear); URINE COLOR YELLOW (YELLOW); URINE GLUCOSE (UA) NEG (Normal); URINE LEUKOCYTE ESTERASE LARGE Leu/uL (Negative); URINE PROTEIN 100 mg/dL (NEGATIVE); URINE UROBILINOGEN 0.2-1.0 mg/dL (0.2-1.0)
[2018-02-15] MEDS: Insulin Regular 100 units/ml SC SCH ×4 (06:58→22:00)
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
[2018-02-15] MEDS ORDERED: Sod Polystyrene Sulf 15 gm/60 ml Susp PO ONE (11:17)
--- NOTE | 2018-02-15 11:38 | US ---
PROCEDURE: Ultrasonography renal arterial evaluation HISTORY: Peripheral Vascular Disease, CKD, CAD COMPARISON: 02/06/2018 renal ultrasound. Summary of findings on the comparison examination: Unremarkable renal sonogram TECHNIQUE: Real-time ultrasonography evaluation of the renal arteries were performed. Comparison is made to the aorta. Report prepared by food technologist. FINDINGS: AORTA: Patent. Peak systolic velocity 63.3 centimeters/second RIGHT RENAL ARTERY: Renal artery to aorta ratio: 2.9 * Proximal segment: Patent. Peak systolic velocity 167 centimeters/second * Mid segment: Patent. Peak systolic velocity 181 centimeters/second * Distal segment: Patent. Peak systolic velocity 168 centimeters/second Other findings: Right Kidney measures approximately 6.2 x 10.9 centimeters. LEFT RENAL ARTERY: Renal artery to aorta ratio: 2.8 * Proximal segment: Patent. Peak systolic velocity 140 centimeters/second * Mid segment: Patent. Peak systolic velocity 1076 centimeters/second * Distal segment: Patent. Peak systolic velocity 7 5 centimeters/second Other findings: Left Kidney measures approximately 5.5 x 9.9 centimeters. Mild fullness in the left collecting system IMPRESSION: Limited evaluation. No definite hemodynamically significant stenosis involving the renal arteries as visualized. (
--- NOTE | 2018-02-15 12:16 | CP.PCM.PN ---
Subjective - Date & Time of Evaluation Date of Evaluation: 02/15/18 Time of Evaluation: 08:00 - Subjective Subjective: improving slowly iv rx in progress to complete 14 days Objective - Vital Signs/Intake and Output Vital Signs (last 24 hours): Temp Pulse Resp BP Pulse Ox 98.3 F 98 H 18 116/63 98 02/15/18 12:00 02/15/18 12:00 02/15/18 12:00 02/15/18 12:00 02/15/18 12:00 - Medications Medications: Current Medications Acetaminophen (Tylenol 325mg Tab) 650 mg PO Q6 PRN PRN Reason: Pain, Mild (1-3) Last Admin: 02/15/18 05:21 Dose: 650 mg Acetaminophen (Tylenol 325mg Tab) 325 mg PO BID [facility] Last Admin: 02/14/18 18:14 Dose: Not Given Aspirin (Ecotrin) 81 mg PO DAILY [facility] Last Admin: 02/14/18 09:08 Dose: 81 mg Atorvastatin Calcium (Lipitor) 40 mg PO HS [facility] Last Admin: 02/14/18 21:12 Dose: 40 mg Benzocaine/Menthol (Cepacol Sore Throat) 1 grazyna PO Q2 PRN PRN Reason: Sore Throat Last Admin: 01/27/18 11:03 Dose: 1 grazyna Bethanechol Chloride (Urecholine) 10 mg PO TID [facility] Last Admin: 02/14/18 18:17 Dose: 10 mg Carvedilol (Coreg) 3.125 mg PO Q12 [facility] Last Admin: 02/14/18 21:11 Dose: 3.125 mg Clopidogrel Bisulfate (Plavix) 75 mg PO DAILY [facility] Last Admin: 02/09/18 08:48 Dose: 75 mg Dextrose (Dextrose 50% Inj) 0 ml IV STAT PRN; Protocol PRN Reason: Hypoglycemia Protocol Last Admin: 02/12/18 05:34 Dose: 50 ml Dextrose (Glutose 15) 0 gm PO ONCE PRN; Protocol PRN Reason: Hypoglycemia Protocol Dextrose (Dextrose 50% Inj) 0 ml IV STAT PRN; Protocol PRN Reason: Hypoglycemia Protocol Dextrose (Glutose 15) 0 gm PO ONCE PRN; Protocol PRN Reason: Hypoglycemia Protocol Glucagon (Glucagen Diagnostic Kit) 0 mg IM STAT PRN; Protocol PRN Reason: Hypoglycemia Protocol Glucagon (Glucagen Diagnostic Kit) 0 mg IM STAT PRN; Protocol PRN Reason: Hypoglycemia Protocol Glycerin (Glycerin Adult Suppository) 1 sup [place] ONCE PRN PRN Reason: Constipation Linezolid (Zyvox 600mg/300ml D5w) 600 mg in 300 mls @ 300 mls/hr IVPB Q12 DASHAWN PRN Reason: Protocol Last Admin: 02/14/18 21:08 Dose: 300 mls/hr Insulin Detemir (Levemir) 5 units SC DAILY [facility] Last Admin: 02/14/18 09:09 Dose: Not Given Insulin Detemir (Levemir) 10 units SC HS [facility] Last Admin: 02/14/18 21:18 Dose: 10 u Insulin Human Regular (Humulin R) 0 units SC ACHS DASHAWN PRN Reason: Protocol Last Admin: 02/15/18 06:58 Dose: Not Given Lactic Acid (Lac-Hydrin 12% Lotion (225 G)) 1 applic TOP TID PRN PRN Reason: Itching / Pruritus Lactulose (Enulose) 10 gm PO DAILY [facility] Last Admin: 02/14/18 09:08 Dose: Not Given Lidocaine (Lidoderm) 3 ea TD DAILY [facility] Last Admin: 02/14/18 09:11 Dose: Not Given Losartan Potassium (Cozaar) 25 mg PO DAILY [facility] Last Admin: 02/14/18 09:07 Dose: 25 mg Mirtazapine (Remeron) 30 mg PO HS [facility] Last Admin: 02/14/18 21:12 Dose: 30 mg Morphine Sulfate (Morphine Immediate Release Tab) 15 mg PO Q4 PRN PRN Reason: Pain, moderate (4-7) Last Admin: 02/13/18 21:59 Dose: 15 mg Ondansetron HCl (Zofran Inj) 4 mg IVP Q4 PRN PRN Reason: Nausea/Vomiting Last Admin: 02/14/18 04:24 Dose: 4 mg Senna/Docusate Sodium (Senokot S 50 Mg-8.6 Mg) 2 tab PO [facility] Tamsulosin HCl (Flomax) 0.4 mg PO DAILY [facility] Last Admin: 02/14/18 09:08 Dose: 0.4 mg - Labs Labs: 02/14/18 04:25 02/14/18 04:25 PT 11.9 Seconds (9.8-13.1) 01/24/18 04:20 INR 1.1 (0.9-1.2) 01/24/18 04:20 APTT 46.2 Seconds (25.6-37.1) H D 01/24/18 04:20 Assessment and Plan (1) Gangrene Status: Acute (2) Acute kidney injury Status: Acute (3) CAD (coronary artery disease) Status: Acute (4) Cardiomyopathy, dilated Status: Acute (5) Diabetic foot ulcer Status: Acute (6) Hyperglycemia due to type 2 diabetes mellitus Status: Acute (7) Osteomyelitis Status: Acute
[2018-02-15] MEDS: Lactulose 10 gm/15 ml Syrup PO SCH (13:28)
[2018-02-15] MEDS: Insulin Detemir 100 Units/ml Inj SC SCH ×2 (13:30→22:01)
[2018-02-15] MEDS: Lidocaine 5% Patch TD SCH (13:31)
[2018-02-15] MEDS: Linezolid 600 mg in D5W 300 ml 600 MG/300 ML BAG IVPB SCH ×2 (13:36→22:00)
[2018-02-15] MEDS: Morphine 15 mg Immediate Release Tab PO PRN (13:42)
--- NOTE | 2018-02-15 15:02 | RAD ---
HISTORY: Urine Retention COMPARISON: No prior. FINDINGS: BOWEL: There is large amount of stool in the colon and rectum. No obstruction. No free air. BONES: Normal. OTHER FINDINGS: None. IMPRESSION: Constipation. Nonobstructive bowel gas pattern.
[2018-02-15] MEDS: Docusate-Senna 50 mg-8.6 mg Tab PO SCH (21:59)
[2018-02-16 05:52] LABS: HEMOGLOBIN 10.5 g/dL (12.0-16.0); MEAN CORPUSCULAR HEMOGLOBIN 28.4 pg (27.0-31.0); MEAN CORPUSCULAR HGB CONC 32.6 g/dL (33.0-37.0); RBC 3.7 Mil/uL (3.80-5.20); RED CELL DISTRIBUTION WIDTH 13.6 % (11.5-14.5); WHITE BLOOD COUNT 14.2 K/uL (4.8-10.8)
[2018-02-16 06:01] LABS: CALCIUM 8.9 mg/dL (8.4-10.2)
[2018-02-16] MEDS: Insulin Regular 100 units/ml SC SCH ×4 (06:35→21:33)
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
[2018-02-16] MEDS: Insulin Detemir 100 Units/ml Inj SC SCH ×2 (09:24→21:27)
[2018-02-16] MEDS: Lactulose 10 gm/15 ml Syrup PO SCH (09:24)
[2018-02-16] MEDS: Lidocaine 5% Patch TD SCH (09:25)
[2018-02-16] MEDS: Linezolid 600 mg in D5W 300 ml 600 MG/300 ML BAG IVPB SCH ×2 (09:27→21:36)
--- NOTE | 2018-02-16 10:04 | CT ---
PROCEDURE: CT HEAD WITHOUT CONTRAST. HISTORY: follow up ich COMPARISON: Unenhanced head CT 02/11/2018. TECHNIQUE: Axial computed tomography images were obtained through the head/brain without intravenous contrast. Radiation dose: Total exam DLP = 821.54 mGy-cm. This CT exam was performed using one or more of the following dose reduction techniques: Automated exposure control, adjustment of the mA and/or kV according to patient size, and/or use of iterative reconstruction technique. FINDINGS: HEMORRHAGE: There has been a further reduction in a small subdural hematoma the medial left middle cranial fossa/lateral tentorium. No new intracranial hemorrhage is appreciable and there is no significant mass effect. BRAIN: Age related neuro degenerative changes are reiterated throughout the cerebrum as well as bilateral splenic and left external capsule/basal ganglia chronic lacunes. No interval parenchymal edema appreciable with the posterior fossa contents stable. VENTRICLES: Unremarkable. No hydrocephalus. CALVARIUM: Unremarkable. PARANASAL SINUSES: Unremarkable as visualized. No significant inflammatory changes. MASTOID AIR CELLS: Unremarkable as visualized. No inflammatory changes. OTHER FINDINGS: None. IMPRESSION: 1. Diminishing small medial mid left middle cranial fossa/lateral tentorial subdural hematoma. No interval new intracranial hemorrhage appreciable. No significant mass effect. 2. Age-related neuro degenerative changes reiterated as above as a few chronic lacunes as discussed above.
--- NOTE | 2018-02-16 10:27 | CP.PCM.PN ---
Subjective - Date & Time of Evaluation Date of Evaluation: 02/16/18 Time of Evaluation: 10:27 - Subjective Subjective: Ms. Carias was seen and examined at the bedside. She is alert, oriented, speaks mainly [place] Of [place]. She denies any headache, dizziness, lightheadedness, but complains of severe left BKA stump pain. She is able to raise affected leg, follow simple commands. She has a very minimal right arm drift. She is able to feed herself. CT scan done today showed diminishing subdural hematoma. There was no untoward events overnight. Objective - Vital Signs/Intake and Output Vital Signs (last 24 hours): Temp Pulse Resp BP Pulse Ox 98.8 F 89 20 124/74 97 02/16/18 07:56 02/16/18 09:24 02/16/18 07:56 02/16/18 09:24 02/16/18 07:56 - Medications Medications: Current Medications Acetaminophen (Tylenol 325mg Tab) 650 mg PO Q6 PRN PRN Reason: Pain, Mild (1-3) Last Admin: 02/15/18 05:21 Dose: 650 mg Acetaminophen (Tylenol 325mg Tab) 325 mg PO BID [facility] Last Admin: 02/16/18 09:27 Dose: 325 mg Aspirin (Ecotrin) 81 mg PO DAILY [facility] Last Admin: 02/16/18 09:24 Dose: 81 mg Atorvastatin Calcium (Lipitor) 40 mg PO HS [facility] Last Admin: 02/15/18 22:00 Dose: 40 mg Benzocaine/Menthol (Cepacol Sore Throat) 1 grazyna PO Q2 PRN PRN Reason: Sore Throat Last Admin: 01/27/18 11:03 Dose: 1 grazyna Bethanechol Chloride (Urecholine) 10 mg PO TID [facility] Last Admin: 02/16/18 09:25 Dose: 10 mg Carvedilol (Coreg) 3.125 mg PO Q12 [facility] Last Admin: 02/16/18 09:23 Dose: 3.125 mg Clopidogrel Bisulfate (Plavix) 75 mg PO DAILY [facility] Last Admin: 02/09/18 08:48 Dose: 75 mg Dextrose (Dextrose 50% Inj) 0 ml IV STAT PRN; Protocol PRN Reason: Hypoglycemia Protocol Last Admin: 02/12/18 05:34 Dose: 50 ml Dextrose (Glutose 15) 0 gm PO ONCE PRN; Protocol PRN Reason: Hypoglycemia Protocol Dextrose (Dextrose 50% Inj) 0 ml IV STAT PRN; Protocol PRN Reason: Hypoglycemia Protocol Dextrose (Glutose 15) 0 gm PO ONCE PRN; Protocol PRN Reason: Hypoglycemia Protocol Glucagon (Glucagen Diagnostic Kit) 0 mg IM STAT PRN; Protocol PRN Reason: Hypoglycemia Protocol Glucagon (Glucagen Diagnostic Kit) 0 mg IM STAT PRN; Protocol PRN Reason: Hypoglycemia Protocol Glycerin (Glycerin Adult Suppository) 1 sup LA ONCE PRN PRN Reason: Constipation Linezolid (Zyvox 600mg/300ml D5w) 600 mg in 300 mls @ 300 mls/hr IVPB Q12 DASHAWN PRN Reason: Protocol Last Admin: 02/16/18 09:27 Dose: 300 mls/hr Insulin Detemir (Levemir) 5 units SC DAILY [facility] Last Admin: 02/16/18 09:24 Dose: 5 unit Insulin Detemir (Levemir) 10 units SC HS [facility] Last Admin: 02/15/18 22:01 Dose: 10 u Insulin Human Regular (Humulin R) 0 units SC ACHS [facility] PRN Reason: Protocol Last Admin: 02/16/18 06:35 Dose: Not Given Lactic Acid (Lac-Hydrin 12% Lotion (225 G)) 1 applic TOP TID PRN PRN Reason: Itching / Pruritus Lactulose (Enulose) 10 gm PO DAILY [facility] Last Admin: 02/16/18 09:24 Dose: 10 gm Lidocaine (Lidoderm) 3 ea TD DAILY [facility] Last Admin: 02/16/18 09:25 Dose: 3 ea Magnesium Hydroxide (Milk Of Magnesia) 30 ml PO DAILY [facility] Mirtazapine (Remeron) 30 mg PO HS [facility] Last Admin: 02/15/18 22:00 Dose: 30 mg Morphine Sulfate (Morphine Immediate Release Tab) 15 mg PO Q4 PRN PRN Reason: Pain, moderate (4-7) Last Admin: 02/15/18 13:42 Dose: 15 mg Senna/Docusate Sodium (Senokot S 50 Mg-8.6 Mg) 2 tab PO HS [facility] Last Admin: 02/15/18 21:59 Dose: 2 tab Tamsulosin HCl (Flomax) 0.4 mg PO DAILY [facility] Last Admin: 02/16/18 09:24 Dose: 0.4 mg - Labs Labs: 02/16/18 04:20 02/16/18 04:20 PT 11.9 Seconds (9.8-13.1) 01/24/18 04:20 INR 1.1 (0.9-1.2) 01/24/18 04:20 APTT 46.2 Seconds (25.6-37.1) H D 01/24/18 04:20 - Constitutional Appears: No Acute Distress - Head Exam Head Exam: NORMAL INSPECTION - Neurological Exam Neurological Exam: Alert, Awake, Oriented x3 Neuro motor strength exam: Left Upper Extremity: 5, Right Upper Extremity: 4, Left Lower Extremity: 3, Right Lower Extremity: 4 Additional comments: Neurological unchanged Assessment and Plan (1) CVA (cerebral vascular accident) Assessment & Plan: Case discussed with Dr. Andujar, continue all current medical, physical, and occupational therapies. Recommend neurointerventional consult ( Dr. Oscar Escobar made aware).for the greater than 90% stenoses of the bilateral common external carotid artery. Status: Acute
[2018-02-16] MEDS: Magnesium Hydroxide Susp 30 ml UD PO SCH (12:22)
--- NOTE | 2018-02-16 13:17 | CP.PCM.CON ---
History of Present Illness - History of Present Illness History of Present Illness: NEURO-INTERVENTIONAL CONSULTATION The patient lynnette 67 y/o female with a PMH that is significant for DM type 2, HTN , HLD, Cardiac disease, chronic back pain and old strokes. 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 During her hospitalization she had a left BKA. MRI is notable for a small left hemispheric DWI lesion. Exam conducted with the aid of a Divehi interperter. No report by hisotry of symptoms consistent with hemisperic or occular ischemia. Carotid doppler show patent carotid arteries. Bilateral ECA stenosis. Review of Systems - Constitutional Constitutional: As Per HPI - Cardiovascular Cardiovascular: As Per HPI - Respiratory Respiratory: As Per HPI - Gastrointestinal Gastrointestinal: As Per HPI - Musculoskeletal Musculoskeletal: As Per HPI - Neurological Neurological: As Per HPI Past Patient History - Infectious Disease Hx of Infectious Diseases: None - Tetanus Immunizations Tetanus Immunization: Unknown - Past Medical History & Family History Past Medical History?: Yes - Past Social History Smoking Status: Former Smoker - CARDIAC Hx Cardiac Disorders: Yes Hx Congestive Heart Failure: Yes Hx Hypercholesterolemia: Yes Hx Hypertension: Yes - PULMONARY Hx Respiratory Disorders: No - NEUROLOGICAL HX Cerebrovascular Accident: Yes - HEENT Hx HEENT Problems: No - ENDOCRINE/METABOLIC Hx Diabetes Mellitus Type 2: Yes - HEMATOLOGICAL/ONCOLOGICAL Hx Blood Disorders: No - INTEGUMENTARY Hx Dermatological Problems: No - MUSCULOSKELETAL/RHEUMATOLOGICAL Hx Musculoskeletal Disorders: Yes Hx Falls: Yes (fell 6 months ago) Other/Comment: hx of chronic back pain - GASTROINTESTINAL Hx Gastrointestinal Disorders: No - GENITOURINARY/GYNECOLOGICAL Hx Genitourinary Disorders: No - PSYCHIATRIC Hx Psychophysiologic Disorder: No Hx Substance Use: No - SURGICAL HISTORY Hx Coronary Stent: Yes - ANESTHESIA Hx Malignant Hyperthermia: No Meds Allergies/Adverse Reactions: Allergies Allergy/AdvReac Type Severity Reaction Status Date / Time No Known Allergies Allergy Verified 05/14/16 14:21 - Medications Medications: Current Medications Acetaminophen (Tylenol 325mg Tab) 650 mg PO Q6 PRN PRN Reason: Pain, Mild (1-3) Last Admin: 02/15/18 05:21 Dose: 650 mg Acetaminophen (Tylenol 325mg Tab) 325 mg PO BID [facility] Last Admin: 02/16/18 09:27 Dose: 325 mg Aspirin (Ecotrin) 81 mg PO DAILY [facility] Last Admin: 02/16/18 09:24 Dose: 81 mg Atorvastatin Calcium (Lipitor) 40 mg PO HS [facility] [place] Last Admin: 02/15/18 22:00 Dose: 40 mg Benzocaine/Menthol (Cepacol Sore Throat) 1 grazyna PO Q2 PRN PRN Reason: Sore Throat Last Admin: 01/27/18 11:03 Dose: 1 grazyna Bethanechol Chloride (Urecholine) 10 mg PO TID [facility] Last Admin: 02/16/18 12:22 Dose: 10 mg Carvedilol (Coreg) 3.125 mg PO Q12 [facility] Last Admin: 02/16/18 09:23 Dose: 3.125 mg Clopidogrel Bisulfate (Plavix) 75 mg PO DAILY [facility] Last Admin: 02/09/18 08:48 Dose: 75 mg Dextrose (Dextrose 50% Inj) 0 ml IV STAT PRN; Protocol PRN Reason: Hypoglycemia Protocol Last Admin: 02/12/18 05:34 Dose: 50 ml Dextrose (Glutose 15) 0 gm PO ONCE PRN; Protocol PRN Reason: Hypoglycemia Protocol Dextrose (Dextrose 50% Inj) 0 ml IV STAT PRN; Protocol PRN Reason: Hypoglycemia Protocol Dextrose (Glutose 15) 0 gm PO ONCE PRN; Protocol PRN Reason: Hypoglycemia Protocol Glucagon (Glucagen Diagnostic Kit) 0 mg IM STAT PRN; Protocol PRN Reason: Hypoglycemia Protocol Glucagon (Glucagen Diagnostic Kit) 0 mg IM STAT PRN; Protocol PRN Reason: Hypoglycemia Protocol Glycerin (Glycerin Adult Suppository) 1 sup CO ONCE PRN PRN Reason: Constipation Linezolid (Zyvox 600mg/300ml D5w) 600 mg in 300 mls @ 300 mls/hr IVPB Q12 [facility] PRN Reason: Protocol Last Admin: 02/16/18 09:27 Dose: 300 mls/hr Insulin Detemir (Levemir) 5 units SC DAILY [facility] Last Admin: 02/16/18 09:24 Dose: 5 unit Insulin Detemir (Levemir) 10 units SC HS [facility] Last Admin: 02/15/18 22:01 Dose: 10 u Insulin Human Regular (Humulin R) 0 units SC ACHS [facility] PRN Reason: Protocol Last Admin: 02/16/18 12:19 Dose: 3 units Lactic Acid (Lac-Hydrin 12% Lotion (225 G)) 1 applic TOP TID PRN PRN Reason: Itching / Pruritus Lactulose (Enulose) 10 gm PO DAILY [facility] Last Admin: 02/16/18 09:24 Dose: 10 gm Lidocaine (Lidoderm) 3 ea TD DAILY [facility] Last Admin: 02/16/18 09:25 Dose: 3 ea Magnesium Hydroxide (Milk Of Magnesia) 30 ml PO DAILY [facility] Last Admin: 02/16/18 12:22 Dose: 30 ml Mirtazapine (Remeron) 30 mg PO HS [facility] Last Admin: 02/15/18 22:00 Dose: 30 mg Morphine Sulfate (Morphine Immediate Release Tab) 15 mg PO Q4 PRN PRN Reason: Pain, moderate (4-7) Last Admin: 02/15/18 13:42 Dose: 15 mg Senna/Docusate Sodium (Senokot S 50 Mg-8.6 Mg) 2 tab PO HS [facility] [place] Last Admin: 02/15/18 21:59 Dose: 2 tab Tamsulosin HCl (Flomax) 0.4 mg PO DAILY [facility] [place] Last Admin: 02/16/18 09:24 Dose: 0.4 mg Physical Exam - Additional Findings Additional findings: Awake and alert Appropriately answering questions Following commands No dysarthria No facial assymerty slight echymosis under right eye Moves all extremities, except for left Lower (recent BKA) No berny sensory deficit to LT does complain of left facial dysasthesia since she fell on her face. Results - Vital Signs Recent Vital Signs: Last Vital Signs Temp 98.4 F 02/16/18 12:22 Pulse 95 H 02/16/18 12:22 Resp 20 02/16/18 12:22 BP 105/66 02/16/18 12:22 Pulse Ox 99 02/16/18 12:22 - Labs Result Diagrams: 02/16/18 04:20 02/16/18 04:20 Labs: Laboratory Results - last 24 hr 02/14/18 02/14/18 02/15/18 16:00 20:55 12:20 WBC RBC Hgb Hct MCV MCH MCHC RDW Plt Count Sodium Potassium Chloride Carbon Dioxide Anion Gap BUN Creatinine Est GFR ( Amer) Est GFR (Non-Af Amer) POC Glucose (mg/dL) 168 H 277 H 198 H Random Glucose Calcium 02/15/18 02/15/18 02/16/18 15:49 21:21 04:20 WBC 14.2 H RBC 3.70 L Hgb 10.5 L Hct 32.2 L MCV 87.0 MCH 28.4 MCHC 32.6 L RDW 13.6 Plt Count 236 Sodium Potassium Chloride Carbon Dioxide Anion Gap BUN Creatinine Est GFR ( Amer) Est GFR (Non-Af Amer) POC Glucose (mg/dL) 223 H 149 H Random Glucose Calcium 02/16/18 02/16/18 02/16/18 04:20 05:38 10:30 WBC RBC Hgb Hct MCV MCH MCHC RDW Plt Count Sodium 135 Potassium 4.5 Chloride 97 L Carbon Dioxide 27 Anion Gap 16 BUN 35 H Creatinine 1.7 H Est GFR ( Amer) 36 Est GFR (Non-Af Amer) 30 POC Glucose (mg/dL) 103 218 H Random Glucose 110 H Calcium 8.9 Assessment & Plan - Assessment and Plan (Free Text) Assessment: 67 year old female with multiple vascular risk factors. The patient has no history of ischemic events she can relay to me but she is a poor historian. The finding of isolated, severe, bilateral ECA stenosis is unique and I think we should obtain cross-sectional imaging to ascertain that there are no high grade lesions in the CCAs or ICAS. The patient has poor renal function, so an MRA head and neck TOF without IRAM will be a good option. Plan: 1-MRA head and neck TOF (no IRAM) 2-Discussed with Dr. Andujar. - Date & Time Date: 02/16/18 Time: 13:15
--- NOTE | 2018-02-16 15:29 | MRI ---
PROCEDURE: MR Angiography of the neck without contrast HISTORY: CVA COMPARISON: None available. TECHNIQUE: 3D [id number] angiography of the neck was performed. Rotating maximum intensity projection images of the cervical carotid and vertebral arteries were generated. The origins of the common carotid arteries were not visualized, which is a limitation inherent to the non-contrast time of flight technique. FINDINGS: RIGHT CAROTID ARTERIES: Common Carotid Artery: Normal. Carotid Bifurcation: There appears to be some very minor narrowing at the level of the right carotid bifurcation secondary to atherosclerotic plaque. . Internal Carotid Artery:Normal. External Carotid Artery (proximal branches): Proximal margin right external carotid artery. LEFT CAROTID ARTERIES: Common Carotid Artery: Normal. Carotid Bifurcation: There appears to be some minor narrowing of the left carotid bifurcation . Internal Carotid Artery:Normal. External Carotid Artery (proximal branches): Narrowing proximal margin right external carotid artery. Of the VERTEBRAL ARTERIES: Right Vertebral Artery: Normal. Left Vertebral Artery: Normal. OTHER FINDINGS: None. IMPRESSION: Minimal narrowing of the carotid bifurcations with more significant stenotic changes at the origins of both external carotid arteries.
--- NOTE | 2018-02-16 17:16 | CP.PCM.PN ---
Subjective - Date & Time of Evaluation Date of Evaluation: 02/16/18 Time of Evaluation: 09:00 - Subjective Subjective: events noted about to complete rx for cellulitis of stump Objective - Vital Signs/Intake and Output Vital Signs (last 24 hours): Temp Pulse Resp BP Pulse Ox 98.4 F 86 20 97/60 L 98 02/16/18 15:48 02/16/18 15:48 02/16/18 15:48 02/16/18 15:48 02/16/18 15:48 - Medications Medications: Current Medications Acetaminophen (Tylenol 325mg Tab) 650 mg PO Q6 PRN PRN Reason: Pain, Mild (1-3) Last Admin: 02/15/18 05:21 Dose: 650 mg Acetaminophen (Tylenol 325mg Tab) 325 mg PO BID [facility] Last Admin: 02/16/18 16:35 Dose: 325 mg Aspirin (Ecotrin) 81 mg PO DAILY [facility] Last Admin: 02/16/18 09:24 Dose: 81 mg Atorvastatin Calcium (Lipitor) 40 mg PO HS [facility] Last Admin: 02/15/18 22:00 Dose: 40 mg Benzocaine/Menthol (Cepacol Sore Throat) 1 grazyna PO Q2 PRN PRN Reason: Sore Throat Last Admin: 01/27/18 11:03 Dose: 1 grazyna Bethanechol Chloride (Urecholine) 10 mg PO TID [facility] Last Admin: 02/16/18 16:34 Dose: 10 mg Carvedilol (Coreg) 3.125 mg PO Q12 [facility] Last Admin: 02/16/18 09:23 Dose: 3.125 mg Clopidogrel Bisulfate (Plavix) 75 mg PO DAILY [facility] Last Admin: 02/09/18 08:48 Dose: 75 mg Dextrose (Dextrose 50% Inj) 0 ml IV STAT PRN; Protocol PRN Reason: Hypoglycemia Protocol Last Admin: 02/12/18 05:34 Dose: 50 ml Dextrose (Glutose 15) 0 gm PO ONCE PRN; Protocol PRN Reason: Hypoglycemia Protocol Dextrose (Dextrose 50% Inj) 0 ml IV STAT PRN; Protocol PRN Reason: Hypoglycemia Protocol Dextrose (Glutose 15) 0 gm PO ONCE PRN; Protocol PRN Reason: Hypoglycemia Protocol Glucagon (Glucagen Diagnostic Kit) 0 mg IM STAT PRN; Protocol PRN Reason: Hypoglycemia Protocol Glucagon (Glucagen Diagnostic Kit) 0 mg IM STAT PRN; Protocol PRN Reason: Hypoglycemia Protocol Glycerin (Glycerin Adult Suppository) 1 sup [place] ONCE PRN PRN Reason: Constipation Linezolid (Zyvox 600mg/300ml D5w) 600 mg in 300 mls @ 300 mls/hr IVPB Q12 [facility] PRN Reason: Protocol Last Admin: 02/16/18 09:27 Dose: 300 mls/hr Insulin Detemir (Levemir) 5 units SC DAILY [facility] Last Admin: 02/16/18 09:24 Dose: 5 unit Insulin Detemir (Levemir) 10 units SC HS [facility] Last Admin: 02/15/18 22:01 Dose: 10 u Insulin Human Regular (Humulin R) 0 units SC ACHS [facility] PRN Reason: Protocol Last Admin: 02/16/18 16:33 Dose: Not Given Lactic Acid (Lac-Hydrin 12% Lotion (225 G)) 1 applic TOP TID PRN PRN Reason: Itching / Pruritus Lactulose (Enulose) 10 gm PO BID [facility] Lidocaine (Lidoderm) 3 ea TD DAILY [facility] Last Admin: 02/16/18 09:25 Dose: 3 ea Magnesium Hydroxide (Milk Of Magnesia) 30 ml PO DAILY [facility] Last Admin: 02/16/18 12:22 Dose: 30 ml Mirtazapine (Remeron) 30 mg PO HS [facility] Last Admin: 02/15/18 22:00 Dose: 30 mg Morphine Sulfate (Morphine Immediate Release Tab) 15 mg PO Q4 PRN PRN Reason: Pain, moderate (4-7) Last Admin: 02/15/18 13:42 Dose: 15 mg Senna/Docusate Sodium (Senokot S 50 Mg-8.6 Mg) 2 tab PO HS [facility] Last Admin: 02/15/18 21:59 Dose: 2 tab Tamsulosin HCl (Flomax) 0.4 mg PO DAILY [facility] Last Admin: 02/16/18 09:24 Dose: 0.4 mg - Labs Labs: 02/16/18 04:20 02/16/18 04:20 PT 11.9 Seconds (9.8-13.1) 01/24/18 04:20 INR 1.1 (0.9-1.2) 01/24/18 04:20 APTT 46.2 Seconds (25.6-37.1) H D 01/24/18 04:20 - Constitutional Appears: Non-toxic, Chronically Ill - Head Exam Head Exam: NORMOCEPHALIC - Eye Exam Eye Exam: PERRL - ENT Exam ENT Exam: Mucous Membranes Dry - Neck Exam Neck Exam: absent: Lymphadenopathy - Respiratory Exam Respiratory Exam: Decreased Breath Sounds - Cardiovascular Exam Cardiovascular Exam: REGULAR RHYTHM - GI/Abdominal Exam GI & Abdominal Exam: Distended, Soft - Rectal Exam Rectal Exam: Deferred - Exam Exam: NORMAL INSPECTION - Extremities Exam Extremities Exam: absent: Calf Tenderness Assessment and Plan (1) Gangrene Status: Acute (2) Acute kidney injury Status: Acute (3) CAD (coronary artery disease) Status: Acute (4) Cardiomyopathy, dilated Status: Acute (5) Diabetic foot ulcer Status: Acute (6) Hyperglycemia due to type 2 diabetes mellitus Status: Acute (7) Osteomyelitis Status: Acute
--- NOTE | 2018-02-16 18:05 | MRI ---
PROCEDURE: Magnetic Resonance Angiography Brain HISTORY: CVA COMPARISON: Comparison made with prior CT scans of very brain 02/11/2018 and 02/16/2018 TECHNIQUE: 3D time of flight MR angiography of the intracranial arteries was performed. Rotating maximum intensity projection images were generated. Study is limited by motion artifact. FINDINGS: INTERNAL CAROTID ARTERIES: The distal internal carotid arteries including the petrous segments are patent. There is some mild asymmetry of the proximal right cavernous carotid segment felt to be secondary to partially calcified atherosclerotic plaque and seen to much better advantage on prior CT scan. ANTERIOR CEREBRAL ARTERIES: The right A1 segment is not visualized on not axial on source or MIP images and is presumed to be significantly hypoplastic or atretic . . There is prominent on left A1 segment likely due to adaptive enlargement with both A2 segments effectively fed from the left-side. The distal branches of the anterior cerebral artery poorly delineated due to significant motion artifact. MIDDLE CEREBRAL ARTERIES: Asymmetry of the M1 segments left-side of which is larger in caliber more dominant than the right side of though again this is likely due to the asymmetry of the A1 segments mentioned above. . There is asymmetry of the distal branches of the middle cerebral arteries which may in part be due to motion artifact. . POSTERIOR CIRCULATION: The right vertebral artery is not visualized on the source or MIP images and is presumed to be atretic or significantly hypoplastic or a atretic. . These findings are discordant with the recent carotid doppler findings and therefore followup CTA of the neck for further evaluation Basilar Artery: Unremarkable. Distal Vertebral Arteries: Unremarkable. Posterior Cerebral Arteries: Artery origin right posterior cerebral. Posterior Inferior Cerebellar Arteries: Unremarkable. ANEURYSM/ VASCULAR MALFORMATIONS: No evidence of large aneurysm nor vascular malformation. OTHER FINDINGS: Note is made of an area of elliptical shaped bright signal along the left tentorial margin consistent with a residual small subdural hematomas seen to much better advantage on prior CT scans. IMPRESSION: Limited motion degraded study. There is narrowing of the right cavernous carotid artery due to calcified atherosclerotic plaque. Significant hypoplasia and/or a atretic right A1 segment with both A2 segments effectively fed from the left side. origin artery of the right posterior cerebral Right vertebral artery is not visualized in this study which is discordant with carotid Doppler findings. Follow-up CTA of the neck recommended. Motion artifact obscures distal branches of the anterior and middle cerebral arteries
--- NOTE | 2018-02-16 19:01 | CP.PCM.PN ---
Subjective - Date & Time of Evaluation Date of Evaluation: 02/16/18 Time of Evaluation: 19:00 - Subjective Subjective: Reports some shortness of breath; tolerating diet; again with urinary retention (500 cc) and needing straight cath; Objective - Vital Signs/Intake and Output Vital Signs (last 24 hours): Temp Pulse Resp BP Pulse Ox 98.4 F 86 20 97/60 L 98 02/16/18 15:48 02/16/18 15:48 02/16/18 15:48 02/16/18 15:48 02/16/18 15:48 - Medications Medications: Current Medications Acetaminophen (Tylenol 325mg Tab) 650 mg PO Q6 PRN PRN Reason: Pain, Mild (1-3) Last Admin: 02/15/18 05:21 Dose: 650 mg Acetaminophen (Tylenol 325mg Tab) 325 mg PO BID [facility] Last Admin: 02/16/18 16:35 Dose: 325 mg Aspirin (Ecotrin) 81 mg PO DAILY [facility] Last Admin: 02/16/18 09:24 Dose: 81 mg Atorvastatin Calcium (Lipitor) 40 mg PO HS [facility] Last Admin: 02/15/18 22:00 Dose: 40 mg Benzocaine/Menthol (Cepacol Sore Throat) 1 grazyna PO Q2 PRN PRN Reason: Sore Throat Last Admin: 01/27/18 11:03 Dose: 1 grazyna Bethanechol Chloride (Urecholine) 10 mg PO TID [facility] Last Admin: 02/16/18 16:34 Dose: 10 mg Carvedilol (Coreg) 3.125 mg PO Q12 [facility] Last Admin: 02/16/18 09:23 Dose: 3.125 mg Clopidogrel Bisulfate (Plavix) 75 mg PO DAILY [facility] Last Admin: 02/09/18 08:48 Dose: 75 mg Dextrose (Dextrose 50% Inj) 0 ml IV STAT PRN; Protocol PRN Reason: Hypoglycemia Protocol Last Admin: 02/12/18 05:34 Dose: 50 ml Dextrose (Glutose 15) 0 gm PO ONCE PRN; Protocol PRN Reason: Hypoglycemia Protocol Dextrose (Dextrose 50% Inj) 0 ml IV STAT PRN; Protocol PRN Reason: Hypoglycemia Protocol Dextrose (Glutose 15) 0 gm PO ONCE PRN; Protocol PRN Reason: Hypoglycemia Protocol Glucagon (Glucagen Diagnostic Kit) 0 mg IM STAT PRN; Protocol PRN Reason: Hypoglycemia Protocol Glucagon (Glucagen Diagnostic Kit) 0 mg IM STAT PRN; Protocol PRN Reason: Hypoglycemia Protocol Glycerin (Glycerin Adult Suppository) 1 sup [place] ONCE PRN PRN Reason: Constipation Linezolid (Zyvox 600mg/300ml D5w) 600 mg in 300 mls @ 300 mls/hr IVPB Q12 [facility] PRN Reason: Protocol Last Admin: 02/16/18 09:27 Dose: 300 mls/hr Insulin Detemir (Levemir) 5 units SC DAILY [facility] Last Admin: 02/16/18 09:24 Dose: 5 unit Insulin Detemir (Levemir) 10 units SC HS [facility] Last Admin: 02/15/18 22:01 Dose: 10 u Insulin Human Regular (Humulin R) 0 units SC ACHS [facility] PRN Reason: Protocol Last Admin: 02/16/18 16:33 Dose: Not Given Lactic Acid (Lac-Hydrin 12% Lotion (225 G)) 1 applic TOP TID PRN PRN Reason: Itching / Pruritus Lactulose (Enulose) 10 gm PO BID [facility] Lidocaine (Lidoderm) 3 ea TD DAILY [facility] Last Admin: 02/16/18 09:25 Dose: 3 ea Magnesium Hydroxide (Milk Of Magnesia) 30 ml PO DAILY [facility] Last Admin: 02/16/18 12:22 Dose: 30 ml Mirtazapine (Remeron) 30 mg PO HS [facility] Last Admin: 02/15/18 22:00 Dose: 30 mg Morphine Sulfate (Morphine Immediate Release Tab) 15 mg PO Q4 PRN PRN Reason: Pain, moderate (4-7) Last Admin: 02/15/18 13:42 Dose: 15 mg Senna/Docusate Sodium (Senokot S 50 Mg-8.6 Mg) 2 tab PO HS [facility] Last Admin: 02/15/18 21:59 Dose: 2 tab Tamsulosin HCl (Flomax) 0.4 mg PO DAILY [facility] Last Admin: 02/16/18 09:24 Dose: 0.4 mg - Labs Labs: 02/16/18 04:20 02/16/18 04:20 PT 11.9 Seconds (9.8-13.1) 01/24/18 04:20 INR 1.1 (0.9-1.2) 01/24/18 04:20 APTT 46.2 Seconds (25.6-37.1) H D 01/24/18 04:20 - Constitutional Appears: Non-toxic, No Acute Distress - Eye Exam Eye Exam: absent: Scleral icterus - ENT Exam ENT Exam: Mucous Membranes Moist - Respiratory Exam Respiratory Exam: Clear to Ausculation Bilateral. absent: Respiratory Distress - Cardiovascular Exam Cardiovascular Exam: RRR, +S1, +S2 - GI/Abdominal Exam GI & Abdominal Exam: Soft. absent: Distended, Tenderness - Exam Exam: absent: Bladder Distension - Extremities Exam Additional comments: no leg edema; - Neurological Exam Neurological Exam: Alert, Awake - Psychiatric Exam Psychiatric exam: absent: Agitated - Skin Skin Exam: Warm. absent: Cyanosis Assessment and Plan (1) Acute kidney injury Assessment & Plan: NAI on CKD III; serum creatinine has remained at relative plateau since over 1 week; reflux nephropathy from urinary retention may be contributory; otherwise stable electrolyte and volume status; -continue to avoid nephrotoxic agents; -increasing bethanecol to 25 mg tid; continue with intermittent straight cath; Status: Acute (2) CKD (chronic kidney disease), stage III Status: Chronic (3) Systolic CHF, chronic Assessment & Plan: Euvolemic on exam; continue B-blockers; agree with holding losartan until constipation resolved (but needs to be on LUIS blockade correction for both CHF and proteinuria); Status: Chronic (4) Anemia Status: Chronic (5) PVD (peripheral vascular disease) Status: Chronic (6) Urinary retention Assessment & Plan: see above; Status: Acute
--- NOTE | 2018-02-16 21:24 | PN ---
DATE: SUBJECTIVE: This case was discussed with the nursing staff who now informs me that the patient is completely fecal impacted and this could be responsible for her urinary retention. PHYSICAL EXAMINATION: ABDOMEN: Soft and not distended, but slightly tender. No CVA tenderness. DIAGNOSTIC IMPRESSION: 1. Urinary retention. 2. Fecal impaction. PLAN: Plan is to disimpact this patient completely: 1. Maintain her on Flomax and can straight cath the patient. If the residuals drop below 250ml, straight catheterization can stop. Straight catheterization can be done every 8 hours initially. Stefano Snell MD MTDD
[2018-02-16] MEDS: Docusate-Senna 50 mg-8.6 mg Tab PO SCH (21:27)
[2018-02-17] MEDS: Insulin Regular 100 units/ml SC SCH ×3 (06:54→17:58)
--- NOTE | 2018-02-17 08:41 | EEG ---
DATE: TECHNICAL INFORMATION: Electrodes were placed according to the 10-20 International electrode system by certified cytotechnologist. Total of 23 electrodes (21 EEG and 2 EKG) were placed. EEG activity was digitally recorded referentially to P1/P2 or A1/A2 electrodes. Continuous monitoring with EEG was performed using digital analysis for spike detection. The [employer] spike and seizure detection algorithms were used for digital EEG analysis throughout the monitoring period to screen the EEG in real-time and trace the data file with pointers to electrographic seizures and interictal discharges. EEG was screened for electrographic seizures and interictal discharges by a technologist. Physician, epileptologist reviewed detections as well as extensive random samples and whole EEG study in detail. Digital EEG Analysis: Was carried out including FFT (Fast Fourier Transform), R2D2 (Rhythmicity Run Detection and Display), Relative Asymmetry Spectrogram, and voltage plot by the [employer] Software. The qualitative EEG analysis and the voltage plot mapping were used for detection of foci of paroxysmal and abnormal electrical cortical activity. GENERAL DESCRIPTION: Background Rhythm: There is a well-formed, 8-10 Hz posterior dominant rhythm that is reactive, symmetric, and attenuates with eye opening. There was a normal amount of frontal beta noted bilaterally. There is no sleep recorded. ACTIVATION PROCEDURES: Photic stimulation: There is no driving noted. Hyperventilation: There is slowing noted that is self-remitted. ABNORMAL ACTIVITY: There are no focal epileptiform discharges noted. No clinical or subclinical seizures noted. IMPRESSION: This is a normal awake and drowsy electroencephalogram . Clinical correlation is required. Roxana Phillips MD
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
[2018-02-17] MEDS: Lactulose 10 gm/15 ml Syrup PO SCH ×2 (09:28→18:23)
[2018-02-17] MEDS: Lidocaine 5% Patch TD SCH (09:29)
[2018-02-17] MEDS: Insulin Detemir 100 Units/ml Inj SC SCH (09:33)
[2018-02-17] MEDS: Linezolid 600 mg in D5W 300 ml 600 MG/300 ML BAG IVPB SCH ×2 (09:34→20:55)
[2018-02-17] MEDS: Magnesium Hydroxide Susp 30 ml UD PO SCH (09:36)
--- NOTE | 2018-02-17 10:19 | CP.PCM.PN ---
Subjective - Date & Time of Evaluation Date of Evaluation: 02/17/18 Time of Evaluation: 10:19 - Subjective Subjective: Ms. Carias was seen and examined at the bedside. She is alert, oriented, speaks mainly Niuean. She denies any headache, dizziness, lightheadedness, but complains of severe left BKA stump pain. She is able to raise affected leg, follow simple commands. She has a very minimal right arm drift. She is able to feed herself, but complains of acidity of stomach this am, primary team made aware with order of protonix. MRA of the head narrowing of the right cavernaous carotid artery due to calcified atherosclerotic plaque. 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 origin of the right posterior cerebral. Right VA is not visulaized. MRA of the neck showed right VA is not visualized. Seen and evaluated by a neurointerventionalist yesterday.There was no untoward events overnight. Objective - Vital Signs/Intake and Output Vital Signs (last 24 hours): Temp Pulse Resp BP Pulse Ox 99.0 F 101 H 20 178/73 H 99 02/17/18 08:19 02/17/18 09:27 02/17/18 08:19 02/17/18 09:27 02/17/18 08:19 Intake and Output: 02/17/18 02/17/18 06:59 18:59 Output Total 600 Balance -600 - Medications Medications: Current Medications Acetaminophen (Tylenol 325mg Tab) 650 mg PO Q6 PRN PRN Reason: Pain, Mild (1-3) Last Admin: 02/15/18 05:21 Dose: 650 mg Acetaminophen (Tylenol 325mg Tab) 325 mg PO BID [facility] Last Admin: 02/17/18 09:56 Dose: 325 mg Aspirin (Ecotrin) 81 mg PO DAILY [facility] Last Admin: 02/17/18 09:28 Dose: 81 mg Atorvastatin Calcium (Lipitor) 40 mg PO HS [facility] Last Admin: 02/16/18 21:27 Dose: 40 mg Benzocaine/Menthol (Cepacol Sore Throat) 1 grazyna PO Q2 PRN PRN Reason: Sore Throat Last Admin: 01/27/18 11:03 Dose: 1 grazyna Bethanechol Chloride (Urecholine) 25 mg PO TID [facility] Last Admin: 02/17/18 09:30 Dose: 25 mg Carvedilol (Coreg) 3.125 mg PO Q12 [facility] Last Admin: 02/17/18 09:27 Dose: 3.125 mg Clopidogrel Bisulfate (Plavix) 75 mg PO DAILY [facility] Last Admin: 02/09/18 08:48 Dose: 75 mg Dextrose (Dextrose 50% Inj) 0 ml IV STAT PRN; Protocol PRN Reason: Hypoglycemia Protocol Last Admin: 02/12/18 05:34 Dose: 50 ml Dextrose (Glutose 15) 0 gm PO ONCE PRN; Protocol PRN Reason: Hypoglycemia Protocol Dextrose (Dextrose 50% Inj) 0 ml IV STAT PRN; Protocol PRN Reason: Hypoglycemia Protocol Dextrose (Glutose 15) 0 gm PO ONCE PRN; Protocol PRN Reason: Hypoglycemia Protocol Glucagon (Glucagen Diagnostic Kit) 0 mg IM STAT PRN; Protocol PRN Reason: Hypoglycemia Protocol Glucagon (Glucagen Diagnostic Kit) 0 mg IM STAT PRN; Protocol PRN Reason: Hypoglycemia Protocol Glycerin (Glycerin Adult Suppository) 1 sup [place] ONCE PRN PRN Reason: Constipation Linezolid (Zyvox 600mg/300ml D5w) 600 mg in 300 mls @ 300 mls/hr IVPB Q12 [facility] PRN Reason: Protocol Last Admin: 02/17/18 09:34 Dose: 300 mls/hr Insulin Detemir (Levemir) 5 units SC DAILY [facility] Last Admin: 02/17/18 09:33 Dose: 5 unit Insulin Detemir (Levemir) 10 units SC HS [facility] Last Admin: 02/16/18 21:27 Dose: 10 u Insulin Human Regular (Humulin R) 0 units SC ACHS [facility] PRN Reason: Protocol Last Admin: 02/17/18 06:54 Dose: Not Given Lactic Acid (Lac-Hydrin 12% Lotion (225 G)) 1 applic TOP TID PRN PRN Reason: Itching / Pruritus Lactulose (Enulose) 10 gm PO BID [facility] Last Admin: 02/17/18 09:28 Dose: 10 gm Lidocaine (Lidoderm) 3 ea TD DAILY [facility] Last Admin: 02/17/18 09:29 Dose: 3 ea Magnesium Hydroxide (Milk Of Magnesia) 30 ml PO DAILY [facility] Last Admin: 02/17/18 09:36 Dose: 30 ml Mirtazapine (Remeron) 30 mg PO HS [facility] Last Admin: 02/16/18 21:27 Dose: 30 mg Morphine Sulfate (Morphine Immediate Release Tab) 15 mg PO Q4 PRN PRN Reason: Pain, moderate (4-7) Last Admin: 02/15/18 13:42 Dose: 15 mg Senna/Docusate Sodium (Senokot S 50 Mg-8.6 Mg) 2 tab PO HS [facility] Last Admin: 02/16/18 21:27 Dose: 2 tab Tamsulosin HCl (Flomax) 0.4 mg PO DAILY [facility] Last Admin: 02/17/18 09:28 Dose: 0.4 mg - Labs Labs: 02/16/18 04:20 02/16/18 04:20 PT 11.9 Seconds (9.8-13.1) 01/24/18 04:20 INR 1.1 (0.9-1.2) 01/24/18 04:20 APTT 46.2 Seconds (25.6-37.1) H D 01/24/18 04:20 - Constitutional Appears: No Acute Distress - Head Exam Head Exam: NORMAL INSPECTION - Neurological Exam Neurological Exam: Alert, Awake, Oriented x3 Neuro motor strength exam: Left Upper Extremity: 5, Right Upper Extremity: 4, Left Lower Extremity: 2/1 (left KBA), Right Lower Extremity: 4 Additional comments: Neurological unchanged from previous examination. Assessment and Plan (1) CVA (cerebral vascular accident) Assessment & Plan: Case discussed with Dr. Andujar, continue all current medical, physical, and occupational therapies.CTA is not possible due to elevated creatinine/ NAI. Recommend encourage PO intake such as fluids for brain perfusion. Status: Acute
--- NOTE | 2018-02-17 19:04 | CP.PCM.PN ---
Subjective - Date & Time of Evaluation Date of Evaluation: 02/17/18 Time of Evaluation: 13:00 - Subjective Subjective: Still with urinary retention, episode of incontinence earlier today; otherwise reporting some shortness of breath; Objective - Vital Signs/Intake and Output Vital Signs (last 24 hours): Temp Pulse Resp BP Pulse Ox 98.2 F 80 18 122/70 99 02/17/18 18:54 02/17/18 18:54 02/17/18 18:54 02/17/18 18:54 02/17/18 18:54 - Medications Medications: Current Medications Acetaminophen (Tylenol 325mg Tab) 650 mg PO Q6 PRN PRN Reason: Pain, Mild (1-3) Last Admin: 02/15/18 05:21 Dose: 650 mg Acetaminophen (Tylenol 325mg Tab) 325 mg PO BID [facility] Last Admin: 02/17/18 18:24 Dose: 325 mg Aspirin (Ecotrin) 81 mg PO DAILY [facility] Last Admin: 02/17/18 09:28 Dose: 81 mg Atorvastatin Calcium (Lipitor) 40 mg PO HS [facility] Last Admin: 02/16/18 21:27 Dose: 40 mg Benzocaine/Menthol (Cepacol Sore Throat) 1 grazyna PO Q2 PRN PRN Reason: Sore Throat Last Admin: 01/27/18 11:03 Dose: 1 grazyna Bethanechol Chloride (Urecholine) 25 mg PO TID [facility] Last Admin: 02/17/18 18:21 Dose: 25 mg Carvedilol (Coreg) 3.125 mg PO Q12 [facility] Last Admin: 02/17/18 09:27 Dose: 3.125 mg Clopidogrel Bisulfate (Plavix) 75 mg PO DAILY [facility] Last Admin: 02/09/18 08:48 Dose: 75 mg Dextrose (Dextrose 50% Inj) 0 ml IV STAT PRN; Protocol PRN Reason: Hypoglycemia Protocol Last Admin: 02/12/18 05:34 Dose: 50 ml Dextrose (Glutose 15) 0 gm PO ONCE PRN; Protocol PRN Reason: Hypoglycemia Protocol Dextrose (Dextrose 50% Inj) 0 ml IV STAT PRN; Protocol PRN Reason: Hypoglycemia Protocol Dextrose (Glutose 15) 0 gm PO ONCE PRN; Protocol PRN Reason: Hypoglycemia Protocol Glucagon (Glucagen Diagnostic Kit) 0 mg IM STAT PRN; Protocol PRN Reason: Hypoglycemia Protocol Glucagon (Glucagen Diagnostic Kit) 0 mg IM STAT PRN; Protocol PRN Reason: Hypoglycemia Protocol Glycerin (Glycerin Adult Suppository) 1 sup [place] ONCE PRN PRN Reason: Constipation Linezolid (Zyvox 600mg/300ml D5w) 600 mg in 300 mls @ 300 mls/hr IVPB Q12 [facility] PRN Reason: Protocol Last Admin: 02/17/18 09:34 Dose: 300 mls/hr Insulin Detemir (Levemir) 5 units SC DAILY [facility] Last Admin: 02/17/18 09:33 Dose: 5 unit Insulin Detemir (Levemir) 10 units SC HS [facility] Last Admin: 02/16/18 21:27 Dose: 10 u Insulin Human Regular (Humulin R) 0 units SC ACHS [facility] PRN Reason: Protocol Last Admin: 02/17/18 17:58 Dose: Not Given Lactic Acid (Lac-Hydrin 12% Lotion (225 G)) 1 applic TOP TID PRN PRN Reason: Itching / Pruritus Lactulose (Enulose) 10 gm PO BID [facility] Last Admin: 02/17/18 18:23 Dose: Not Given Lidocaine (Lidoderm) 3 ea TD DAILY [facility] Last Admin: 02/17/18 09:29 Dose: 3 ea Magnesium Hydroxide (Milk Of Magnesia) 30 ml PO DAILY [facility] Last Admin: 02/17/18 09:36 Dose: 30 ml Mirtazapine (Remeron) 30 mg PO HS [facility] Last Admin: 02/16/18 21:27 Dose: 30 mg Morphine Sulfate (Morphine Immediate Release Tab) 15 mg PO Q4 PRN PRN Reason: Pain, moderate (4-7) Last Admin: 02/15/18 13:42 Dose: 15 mg Senna/Docusate Sodium (Senokot S 50 Mg-8.6 Mg) 2 tab PO HS [facility] Last Admin: 02/16/18 21:27 Dose: 2 tab Tamsulosin HCl (Flomax) 0.4 mg PO DAILY [facility] Last Admin: 02/17/18 09:28 Dose: 0.4 mg - Labs Labs: 02/16/18 04:20 02/16/18 04:20 PT 11.9 Seconds (9.8-13.1) 01/24/18 04:20 INR 1.1 (0.9-1.2) 01/24/18 04:20 APTT 46.2 Seconds (25.6-37.1) H D 01/24/18 04:20 - Constitutional Appears: Non-toxic, No Acute Distress - Eye Exam Eye Exam: Normal appearance. absent: Scleral icterus - ENT Exam ENT Exam: Mucous Membranes Moist - Respiratory Exam Respiratory Exam: Clear to Ausculation Bilateral. absent: Respiratory Distress - Cardiovascular Exam Cardiovascular Exam: RRR, +S1, +S2 - GI/Abdominal Exam GI & Abdominal Exam: Soft. absent: Distended, Tenderness - Exam Exam: absent: Bladder Distension - Extremities Exam Additional comments: no leg edema; - Neurological Exam Neurological Exam: Alert, Awake - Psychiatric Exam Psychiatric exam: absent: Agitated - Skin Skin Exam: Warm. absent: Cyanosis Assessment and Plan (1) Acute kidney injury Assessment & Plan: NAI on CKD IV; relatively stable serum creatinine though still significantly above baseline; continue to avoid nephrotoxic agents and optimize cardiac status ; Status: Acute (2) CKD (chronic kidney disease), stage III Status: Chronic (3) Systolic CHF, chronic Assessment & Plan: Euvolemic on exam, off losartan for now due to concerns for hyperkalemia in the setting of severe constipation, should restart once having regular BM; Status: Chronic (4) Anemia Status: Chronic (5) PVD (peripheral vascular disease) Status: Chronic (6) Urinary retention Assessment & Plan: Bethanecol dose increased to 25 mg tid; continue intermittent bladder scans/ straight cath; try to avoid morphine; Status: Acute
[2018-02-17] MEDS: Morphine 15 mg Immediate Release Tab PO PRN (20:52)
[2018-02-18 06:34] LABS: CALCIUM 8.4 mg/dL (8.4-10.2)
--- NOTE | 2018-02-18 08:24 | CP.PCM.PN ---
Subjective - Date & Time of Evaluation Date of Evaluation: 02/18/18 Time of Evaluation: 08:24 - Subjective Subjective: Ms. Carias was seen and examined at the bedside. She is alert, oriented, speaks mainly Turkmen. She denies any headache, dizziness, lightheadedness, but complains of severe left BKA stump pain. She is able to raise affected leg, follow simple commands. She has a very minimal right arm drift. She is able to feed herself independently. There was no untoward events overnight. Objective - Vital Signs/Intake and Output Vital Signs (last 24 hours): Temp Pulse Resp BP Pulse Ox 97.8 F 84 18 100/60 99 02/18/18 08:00 02/18/18 08:00 02/18/18 08:00 02/18/18 08:00 02/18/18 08:00 Intake and Output: 02/18/18 02/18/18 06:59 18:59 Intake Total 300 Output Total 300 Balance 0 - Medications Medications: Current Medications Acetaminophen (Tylenol 325mg Tab) 650 mg PO Q6 PRN PRN Reason: Pain, Mild (1-3) Last Admin: 02/15/18 05:21 Dose: 650 mg Acetaminophen (Tylenol 325mg Tab) 325 mg PO BID [facility] Last Admin: 02/17/18 18:24 Dose: 325 mg Aspirin (Ecotrin) 81 mg PO DAILY [facility] Last Admin: 02/17/18 09:28 Dose: 81 mg Atorvastatin Calcium (Lipitor) 40 mg PO HS [facility] Last Admin: 02/17/18 21:25 Dose: 40 mg Benzocaine/Menthol (Cepacol Sore Throat) 1 grazyna PO Q2 PRN PRN Reason: Sore Throat Last Admin: 01/27/18 11:03 Dose: 1 grazyna Bethanechol Chloride (Urecholine) 25 mg PO TID [facility] Last Admin: 02/17/18 18:21 Dose: 25 mg Carvedilol (Coreg) 6.25 mg PO Q12 [facility] Clopidogrel Bisulfate (Plavix) 75 mg PO DAILY [facility] Last Admin: 02/09/18 08:48 Dose: 75 mg Dextrose (Dextrose 50% Inj) 0 ml IV STAT PRN; Protocol PRN Reason: Hypoglycemia Protocol Last Admin: 02/12/18 05:34 Dose: 50 ml Dextrose (Glutose 15) 0 gm PO ONCE PRN; Protocol PRN Reason: Hypoglycemia Protocol Dextrose (Dextrose 50% Inj) 0 ml IV STAT PRN; Protocol PRN Reason: Hypoglycemia Protocol Dextrose (Glutose 15) 0 gm PO ONCE PRN; Protocol PRN Reason: Hypoglycemia Protocol Glucagon (Glucagen Diagnostic Kit) 0 mg IM STAT PRN; Protocol PRN Reason: Hypoglycemia Protocol Glucagon (Glucagen Diagnostic Kit) 0 mg IM STAT PRN; Protocol PRN Reason: Hypoglycemia Protocol Glycerin (Glycerin Adult Suppository) 1 sup [place] ONCE PRN PRN Reason: Constipation Linezolid (Zyvox 600mg/300ml D5w) 600 mg in 300 mls @ 300 mls/hr IVPB Q12 [facility] PRN Reason: Protocol Last Admin: 02/17/18 20:55 Dose: 300 mls/hr Insulin Detemir (Levemir) 5 units SC DAILY [facility] Last Admin: 02/17/18 09:33 Dose: 5 unit Insulin Detemir (Levemir) 10 units SC HS [facility] Last Admin: 02/16/18 21:27 Dose: 10 u Insulin Human Regular (Humulin R) 0 units [place] ACHS [facility] PRN Reason: Protocol Last Admin: 02/17/18 17:58 Dose: Not Given Lactic Acid (Lac-Hydrin 12% Lotion (225 G)) 1 applic TOP TID PRN PRN Reason: Itching / Pruritus Lactulose (Enulose) 10 gm PO BID [facility] Last Admin: 02/17/18 18:23 Dose: Not Given Lidocaine (Lidoderm) 3 ea TD DAILY [facility] Last Admin: 02/17/18 09:29 Dose: 3 ea Magnesium Hydroxide (Milk Of Magnesia) 30 ml PO DAILY [facility] Last Admin: 02/17/18 09:36 Dose: 30 ml Mirtazapine (Remeron) 30 mg PO HS [facility] Last Admin: 02/16/18 21:27 Dose: 30 mg Morphine Sulfate (Morphine Immediate Release Tab) 15 mg PO Q4 PRN PRN Reason: Pain, moderate (4-7) Last Admin: 02/17/18 20:52 Dose: 15 mg Senna/Docusate Sodium (Senokot S 50 Mg-8.6 Mg) 2 tab PO HS [facility] Last Admin: 02/16/18 21:27 Dose: 2 tab Tamsulosin HCl (Flomax) 0.4 mg PO DAILY [facility] Last Admin: 02/17/18 09:28 Dose: 0.4 mg - Labs Labs: 02/16/18 04:20 02/18/18 06:00 PT 11.9 Seconds (9.8-13.1) 01/24/18 04:20 INR 1.1 (0.9-1.2) 01/24/18 04:20 APTT 46.2 Seconds (25.6-37.1) H D 01/24/18 04:20 - Constitutional Appears: No Acute Distress - Head Exam Head Exam: NORMAL INSPECTION - Neurological Exam Neurological Exam: Alert, Awake, Oriented x3 Neuro motor strength exam: Left Upper Extremity: 5, Right Upper Extremity: 4, Left Lower Extremity: 2/1, Right Lower Extremity: 3 Additional comments: Neurological unchanged from previous examination. Assessment and Plan (1) CVA (cerebral vascular accident) Assessment & Plan: Case discussed with Dr. Andujar, continue all current medical, physical, and occupational therapies.CTA is not possible due to elevated creatinine/ NAI. Recommend encourage PO intake such as fluids for brain perfusion. Status: Acute
[2018-02-18] MEDS: Lactulose 10 gm/15 ml Syrup PO SCH ×3 (08:54→16:57)
[2018-02-18] MEDS: Insulin Regular 100 units/ml SC SCH ×4 (08:56→21:21)
[2018-02-18] MEDS: Insulin Detemir 100 Units/ml Inj SC SCH ×2 (08:56→21:22)
[2018-02-18] MEDS: Magnesium Hydroxide Susp 30 ml UD PO SCH ×2 (08:57→09:01)
[2018-02-18] MEDS: Lidocaine 5% Patch TD SCH (08:57)
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
--- NOTE | 2018-02-18 11:35 | RAD ---
HISTORY: abdominal distension, constipation COMPARISON: Abdominal radiographs dated 02/15/2018. FINDINGS: BOWEL: Interval decrease in amount colonic stool. No obstruction. No free air. BONES: Degenerative changes. OTHER FINDINGS: None. IMPRESSION: Decreasing amount of colonic stool. Nonobstructive bowel gas pattern.
--- NOTE | 2018-02-18 12:21 | CP.PCM.PN ---
Subjective - Date & Time of Evaluation Date of Evaluation: 02/18/18 Time of Evaluation: 08:00 - Subjective Subjective: stump dry redness resolved completed 14 days zyvox Objective - Vital Signs/Intake and Output Vital Signs (last 24 hours): Temp Pulse Resp BP Pulse Ox 98.0 F 77 18 99/59 L 97 02/18/18 11:56 02/18/18 11:56 02/18/18 11:56 02/18/18 11:56 02/18/18 11:56 Intake and Output: 02/18/18 02/18/18 06:59 18:59 Intake Total 300 Output Total 300 Balance 0 - Medications Medications: Current Medications Acetaminophen (Tylenol 325mg Tab) 650 mg PO Q6 PRN PRN Reason: Pain, Mild (1-3) Last Admin: 02/18/18 09:00 Dose: 650 mg Acetaminophen (Tylenol 325mg Tab) 325 mg PO BID [facility] Last Admin: 02/17/18 18:24 Dose: 325 mg Aspirin (Ecotrin) 81 mg PO DAILY [facility] Last Admin: 02/18/18 08:58 Dose: 81 mg Atorvastatin Calcium (Lipitor) 40 mg PO HS [facility] Last Admin: 02/17/18 21:25 Dose: 40 mg Benzocaine/Menthol (Cepacol Sore Throat) 1 grazyna PO Q2 PRN PRN Reason: Sore Throat Last Admin: 01/27/18 11:03 Dose: 1 grazyna Bethanechol Chloride (Urecholine) 25 mg PO TID [facility] Last Admin: 02/18/18 08:58 Dose: 25 mg Carvedilol (Coreg) 6.25 mg PO Q12 [facility] Last Admin: 02/18/18 08:55 Dose: 6.25 mg Clopidogrel Bisulfate (Plavix) 75 mg PO DAILY [facility] Last Admin: 02/09/18 08:48 Dose: 75 mg Dextrose (Dextrose 50% Inj) 0 ml IV STAT PRN; Protocol PRN Reason: Hypoglycemia Protocol Last Admin: 02/12/18 05:34 Dose: 50 ml Dextrose (Glutose 15) 0 gm PO ONCE PRN; Protocol PRN Reason: Hypoglycemia Protocol Dextrose (Dextrose 50% Inj) 0 ml IV STAT PRN; Protocol PRN Reason: Hypoglycemia Protocol Dextrose (Glutose 15) 0 gm PO ONCE PRN; Protocol PRN Reason: Hypoglycemia Protocol Glucagon (Glucagen Diagnostic Kit) 0 mg IM STAT PRN; Protocol PRN Reason: Hypoglycemia Protocol Glucagon (Glucagen Diagnostic Kit) 0 mg IM STAT PRN; Protocol PRN Reason: Hypoglycemia Protocol Glycerin (Glycerin Adult Suppository) 1 sup [place] ONCE PRN PRN Reason: Constipation Insulin Detemir (Levemir) 5 units SC DAILY [facility] Last Admin: 02/18/18 08:56 Dose: 5 unit Insulin Detemir (Levemir) 10 units SC HS [facility] Last Admin: 02/16/18 21:27 Dose: 10 u Insulin Human Regular (Humulin R) 0 units SC ACHS [facility] PRN Reason: Protocol Last Admin: 02/18/18 08:56 Dose: Not Given Lactic Acid (Lac-Hydrin 12% Lotion (225 G)) 1 applic TOP TID PRN PRN Reason: Itching / Pruritus Lactulose (Enulose) 10 gm PO BID [facility] Last Admin: 02/18/18 09:02 Dose: Not Given Lidocaine (Lidoderm) 3 ea TD DAILY [facility] Last Admin: 02/18/18 08:57 Dose: 3 ea Losartan Potassium (Cozaar) 25 mg PO DAILY [facility] Magnesium Hydroxide (Milk Of Magnesia) 30 ml PO DAILY [facility] Last Admin: 02/18/18 09:01 Dose: Not Given Mirtazapine (Remeron) 30 mg PO HS [facility] Last Admin: 02/16/18 21:27 Dose: 30 mg Morphine Sulfate (Morphine Immediate Release Tab) 15 mg PO Q4 PRN PRN Reason: Pain, moderate (4-7) Last Admin: 02/17/18 20:52 Dose: 15 mg Senna/Docusate Sodium (Senokot S 50 Mg-8.6 Mg) 2 tab PO HS [facility] Last Admin: 02/16/18 21:27 Dose: 2 tab Tamsulosin HCl (Flomax) 0.4 mg PO DAILY [facility] Last Admin: 02/18/18 08:55 Dose: 0.4 mg - Labs Labs: 02/16/18 04:20 02/18/18 06:00 PT 11.9 Seconds (9.8-13.1) 01/24/18 04:20 INR 1.1 (0.9-1.2) 01/24/18 04:20 APTT 46.2 Seconds (25.6-37.1) H D 01/24/18 04:20 - Constitutional Appears: Non-toxic, Chronically Ill - Head Exam Head Exam: NORMOCEPHALIC - Eye Exam Eye Exam: PERRL - ENT Exam ENT Exam: Mucous Membranes Dry - Neck Exam Neck Exam: absent: Lymphadenopathy - Respiratory Exam Respiratory Exam: Decreased Breath Sounds - Cardiovascular Exam Cardiovascular Exam: REGULAR RHYTHM - GI/Abdominal Exam GI & Abdominal Exam: Distended Assessment and Plan (1) Gangrene Status: Acute (2) Acute kidney injury Status: Acute (3) CAD (coronary artery disease) Status: Acute (4) Cardiomyopathy, dilated Status: Acute (5) Diabetic foot ulcer Status: Acute (6) Hyperglycemia due to type 2 diabetes mellitus Status: Acute (7) Osteomyelitis Status: Acute
[2018-02-18] MEDS: Morphine 15 mg Immediate Release Tab PO PRN (16:58)
--- NOTE | 2018-02-18 18:24 | CP.PCM.PN ---
<Osman Cummings - Last Filed: 02/19/18 11:53> Objective - Vital Signs/Intake and Output Vital Signs (last 24 hours): Temp Pulse Resp BP Pulse Ox 98.6 F 93 H 18 103/66 98 02/19/18 08:00 02/19/18 08:25 02/19/18 08:00 02/19/18 08:25 02/19/18 08:00 - Medications Medications: Current Medications Acetaminophen (Tylenol 325mg Tab) 650 mg PO Q6 PRN PRN Reason: Pain, Mild (1-3) Last Admin: 02/18/18 09:00 Dose: 650 mg Acetaminophen (Tylenol 325mg Tab) 325 mg PO BID [facility] Last Admin: 02/19/18 08:30 Dose: Not Given Aspirin (Ecotrin) 81 mg PO DAILY [facility] Last Admin: 02/19/18 08:26 Dose: 81 mg Atorvastatin Calcium (Lipitor) 40 mg PO HS [facility] Last Admin: 02/18/18 21:09 Dose: 40 mg Benzocaine/Menthol (Cepacol Sore Throat) 1 grazyna PO Q2 PRN PRN Reason: Sore Throat Last Admin: 01/27/18 11:03 Dose: 1 grazyna Bethanechol Chloride (Urecholine) 25 mg PO TID [facility] Last Admin: 02/19/18 08:25 Dose: 25 mg Carvedilol (Coreg) 6.25 mg PO Q12 [facility] Last Admin: 02/19/18 08:25 Dose: 6.25 mg Clopidogrel Bisulfate (Plavix) 75 mg PO DAILY [facility] Last Admin: 02/09/18 08:48 Dose: 75 mg Dextrose (Dextrose 50% Inj) 0 ml IV STAT PRN; Protocol PRN Reason: Hypoglycemia Protocol Last Admin: 02/12/18 05:34 Dose: 50 ml Dextrose (Glutose 15) 0 gm PO ONCE PRN; Protocol PRN Reason: Hypoglycemia Protocol Dextrose (Dextrose 50% Inj) 0 ml IV STAT PRN; Protocol PRN Reason: Hypoglycemia Protocol Dextrose (Glutose 15) 0 gm PO ONCE PRN; Protocol PRN Reason: Hypoglycemia Protocol Glucagon (Glucagen Diagnostic Kit) 0 mg IM STAT PRN; Protocol PRN Reason: Hypoglycemia Protocol Glucagon (Glucagen Diagnostic Kit) 0 mg IM STAT PRN; Protocol PRN Reason: Hypoglycemia Protocol Glycerin (Glycerin Adult Suppository) 1 sup [place] ONCE PRN PRN Reason: Constipation Ceftriaxone Sodium 1 gm/ (Sodium Chloride) 100 mls @ 100 mls/hr IVPB DAILY [facility] PRN Reason: Protocol Last Admin: 02/18/18 21:13 Dose: 100 mls/hr Cefepime HCl 1 gm/ Sodium (Chloride) 100 mls @ 100 mls/hr IVPB DAILY [facility] PRN Reason: Protocol Last Admin: 02/19/18 08:27 Dose: 100 mls/hr Insulin Detemir (Levemir) 5 units SC DAILY [facility] Last Admin: 02/19/18 09:00 Dose: 5 unit Insulin Detemir (Levemir) 10 units SC HS [facility] Last Admin: 02/18/18 21:22 Dose: 10 u Insulin Human Regular (Humulin R) 0 units SC ACHS [facility] PRN Reason: Protocol Last Admin: 02/19/18 07:02 Dose: Not Given Lactic Acid (Lac-Hydrin 12% Lotion (225 G)) 1 applic TOP TID PRN PRN Reason: Itching / Pruritus Lactulose (Enulose) 10 gm PO BID [facility] Last Admin: 02/19/18 08:26 Dose: 10 gm Lidocaine (Lidoderm) 3 ea TD DAILY [facility] Last Admin: 02/19/18 08:26 Dose: 3 ea Losartan Potassium (Cozaar) 25 mg PO DAILY [facility] Last Admin: 02/19/18 08:25 Dose: 25 mg Magnesium Hydroxide (Milk Of Magnesia) 30 ml PO DAILY [facility] Last Admin: 02/19/18 08:38 Dose: Not Given Mirtazapine (Remeron) 30 mg PO HS [facility] Last Admin: 02/18/18 21:09 Dose: 30 mg Morphine Sulfate (Morphine Immediate Release Tab) 15 mg PO Q4 PRN PRN Reason: Pain, moderate (4-7) Last Admin: 02/19/18 08:29 Dose: 15 mg Senna/Docusate Sodium (Senokot S 50 Mg-8.6 Mg) 2 tab PO HS [facility] Last Admin: 02/16/18 21:27 Dose: 2 tab Tamsulosin HCl (Flomax) 0.4 mg PO DAILY [facility] Last Admin: 02/19/18 08:25 Dose: 0.4 mg - Labs Labs: 02/16/18 04:20 02/18/18 06:00 PT 11.9 Seconds (9.8-13.1) 01/24/18 04:20 INR 1.1 (0.9-1.2) 01/24/18 04:20 APTT 46.2 Seconds (25.6-37.1) H D 01/24/18 04:20 <Dayne Schultz - Last Filed: 02/20/18 10:07> Subjective - Date & Time of Evaluation Date of Evaluation: 02/18/18 Time of Evaluation: 13:00 - Subjective Subjective: Dalal draining pus; Objective - Vital Signs/Intake and Output Vital Signs (last 24 hours): Temp Pulse Resp BP Pulse Ox 98.1 F 75 20 115/74 99 02/18/18 16:14 02/18/18 16:14 02/18/18 16:14 02/18/18 16:14 02/18/18 16:14 Intake and Output: 02/18/18 02/18/18 06:59 18:59 Intake Total 300 Output Total 300 Balance 0 - Medications Medications: Current Medications Acetaminophen (Tylenol 325mg Tab) 650 mg PO Q6 PRN PRN Reason: Pain, Mild (1-3) Last Admin: 02/18/18 09:00 Dose: 650 mg Acetaminophen (Tylenol 325mg Tab) 325 mg PO BID [facility] Last Admin: 02/18/18 17:05 Dose: Not Given Aspirin (Ecotrin) 81 mg PO DAILY [facility] Last Admin: 02/18/18 08:58 Dose: 81 mg Atorvastatin Calcium (Lipitor) 40 mg PO HS [facility] Last Admin: 02/17/18 21:25 Dose: 40 mg Benzocaine/Menthol (Cepacol Sore Throat) 1 grazyna PO Q2 PRN PRN Reason: Sore Throat Last Admin: 01/27/18 11:03 Dose: 1 grazyna Bethanechol Chloride (Urecholine) 25 mg PO TID [facility] Last Admin: 02/18/18 17:06 Dose: 25 mg Carvedilol (Coreg) 6.25 mg PO Q12 [facility] Last Admin: 02/18/18 08:55 Dose: 6.25 mg Clopidogrel Bisulfate (Plavix) 75 mg PO DAILY [facility] Last Admin: 02/09/18 08:48 Dose: 75 mg Dextrose (Dextrose 50% Inj) 0 ml IV STAT PRN; Protocol PRN Reason: Hypoglycemia Protocol Last Admin: 02/12/18 05:34 Dose: 50 ml Dextrose (Glutose 15) 0 gm PO ONCE PRN; Protocol PRN Reason: Hypoglycemia Protocol Dextrose (Dextrose 50% Inj) 0 ml IV STAT PRN; Protocol PRN Reason: Hypoglycemia Protocol Dextrose (Glutose 15) 0 gm PO ONCE PRN; Protocol PRN Reason: Hypoglycemia Protocol Glucagon (Glucagen Diagnostic Kit) 0 mg IM STAT PRN; Protocol PRN Reason: Hypoglycemia Protocol Glucagon (Glucagen Diagnostic Kit) 0 mg IM STAT PRN; Protocol PRN Reason: Hypoglycemia Protocol Glycerin (Glycerin Adult Suppository) 1 sup [place] ONCE PRN PRN Reason: Constipation Insulin Detemir (Levemir) 5 units SC DAILY [facility] Last Admin: 02/18/18 08:56 Dose: 5 unit Insulin Detemir (Levemir) 10 units SC HS [facility] Last Admin: 02/16/18 21:27 Dose: 10 u Insulin Human Regular (Humulin R) 0 units SC ACHS [facility] PRN Reason: Protocol Last Admin: 02/18/18 16:56 Dose: 2 units Lactic Acid (Lac-Hydrin 12% Lotion (225 G)) 1 applic TOP TID PRN PRN Reason: Itching / Pruritus Lactulose (Enulose) 10 gm PO BID [facility] Last Admin: 02/18/18 16:57 Dose: Not Given Lidocaine (Lidoderm) 3 ea TD DAILY [facility] Last Admin: 02/18/18 08:57 Dose: 3 ea Losartan Potassium (Cozaar) 25 mg PO DAILY [facility] Magnesium Hydroxide (Milk Of Magnesia) 30 ml PO DAILY [facility] Last Admin: 02/18/18 09:01 Dose: Not Given Mirtazapine (Remeron) 30 mg PO HS [facility] Last Admin: 02/16/18 21:27 Dose: 30 mg Morphine Sulfate (Morphine Immediate Release Tab) 15 mg PO Q4 PRN PRN Reason: Pain, moderate (4-7) Last Admin: 02/18/18 16:58 Dose: 15 mg Senna/Docusate Sodium (Senokot S 50 Mg-8.6 Mg) 2 tab PO HS [facility] Last Admin: 02/16/18 21:27 Dose: 2 tab Tamsulosin HCl (Flomax) 0.4 mg PO DAILY [facility] Last Admin: 02/18/18 08:55 Dose: 0.4 mg - Labs Labs: 02/16/18 04:20 02/18/18 06:00 PT 11.9 Seconds (9.8-13.1) 01/24/18 04:20 INR 1.1 (0.9-1.2) 01/24/18 04:20 APTT 46.2 Seconds (25.6-37.1) H D 01/24/18 04:20 - Constitutional Appears: Non-toxic, No Acute Distress - Eye Exam Eye Exam: absent: Scleral icterus - ENT Exam ENT Exam: Mucous Membranes Moist - Respiratory Exam Respiratory Exam: Clear to Ausculation Bilateral. absent: Respiratory Distress - Cardiovascular Exam Cardiovascular Exam: RRR, +S1, +S2 - GI/Abdominal Exam GI & Abdominal Exam: Soft. absent: Distended, Tenderness - Exam Exam: absent: Bladder Distension - Extremities Exam Additional comments: no leg edema; - Neurological Exam Neurological Exam: Alert, Awake - Psychiatric Exam Psychiatric exam: absent: Agitated - Skin Skin Exam: Warm. absent: Cyanosis Assessment and Plan (1) Acute kidney injury Assessment & Plan: NAI on CKD IIIB; stable renal function, continue to avoid nephrotoxic agents; Status: Acute (2) CKD (chronic kidney disease), stage III Status: Chronic (3) Systolic CHF, chronic Assessment & Plan: On coreg, started on losartan; continue same to optimize CHF status; Status: Chronic (4) Anemia Status: Chronic (5) PVD (peripheral vascular disease) Status: Chronic (6) Urinary retention Assessment & Plan: Now with gram neg UTI, started on abx; will give cefepime per discussion with ID till sensitivities available; Status: Acute
[2018-02-18 21:35] LABS: URINE BILIRUBIN NEGATIVE (NEGATIVE); URINE BLOOD SMALL (NEGATIVE); URINE CLARITY TURBID (Clear); URINE COLOR YELLOW (YELLOW); URINE GLUCOSE (UA) NEG (Normal); URINE LEUKOCYTE ESTERASE MOD Leu/uL (Negative); URINE PROTEIN 100 mg/dL (NEGATIVE); URINE UROBILINOGEN 0.2-1.0 mg/dL (0.2-1.0)
[2018-02-19] MEDS: Insulin Regular 100 units/ml SC SCH ×4 (07:02→21:33)
[2018-02-19] MEDS: Lidocaine 5% Patch TD SCH (08:26)
[2018-02-19] MEDS: Lactulose 10 gm/15 ml Syrup PO SCH ×2 (08:26→16:55)
[2018-02-19] MEDS: Cefepime 1 GM in Sodium Chloride 0.9% 100 ML IVPB SCH (08:27)
[2018-02-19] MEDS: Morphine 15 mg Immediate Release Tab PO PRN (08:29)
[2018-02-19] MEDS: Magnesium Hydroxide Susp 30 ml UD PO SCH (08:38)
[2018-02-19] MEDS: Insulin Detemir 100 Units/ml Inj SC SCH ×3 (09:00→21:33)
--- NOTE | 2018-02-19 11:54 | CP.PCM.PN ---
Subjective - Date & Time of Evaluation Date of Evaluation: 02/19/18 Time of Evaluation: 10:00 - Subjective Subjective: Pt. seen at bedside asleep and wakes up to verbal stimuli. Overnight events reviewed. Pt. reports some discomfort in her back because she is in bed most of the time and occasional but mild pain at her stump that is relieved with medication. Pt. reports bowel movement yesterday. Pt. tolerating diet. Pt. with no other complaints. Objective - Vital Signs/Intake and Output Vital Signs (last 24 hours): Temp Pulse Resp BP Pulse Ox 98.6 F 93 H 18 103/66 98 02/19/18 08:00 02/19/18 08:25 02/19/18 08:00 02/19/18 08:25 02/19/18 08:00 - Medications Medications: Current Medications Acetaminophen (Tylenol 325mg Tab) 650 mg PO Q6 PRN PRN Reason: Pain, Mild (1-3) Last Admin: 02/18/18 09:00 Dose: 650 mg Acetaminophen (Tylenol 325mg Tab) 325 mg PO BID [facility] Last Admin: 02/19/18 08:30 Dose: Not Given Aspirin (Ecotrin) 81 mg PO DAILY [facility] Last Admin: 02/19/18 08:26 Dose: 81 mg Atorvastatin Calcium (Lipitor) 40 mg PO HS [facility] Last Admin: 02/18/18 21:09 Dose: 40 mg Benzocaine/Menthol (Cepacol Sore Throat) 1 grazyna PO Q2 PRN PRN Reason: Sore Throat Last Admin: 01/27/18 11:03 Dose: 1 grazyna Bethanechol Chloride (Urecholine) 25 mg PO TID [facility] Last Admin: 02/19/18 08:25 Dose: 25 mg Carvedilol (Coreg) 6.25 mg PO Q12 [facility] Last Admin: 02/19/18 08:25 Dose: 6.25 mg Clopidogrel Bisulfate (Plavix) 75 mg PO DAILY [facility] Last Admin: 02/09/18 08:48 Dose: 75 mg Dextrose (Dextrose 50% Inj) 0 ml IV STAT PRN; Protocol PRN Reason: Hypoglycemia Protocol Last Admin: 02/12/18 05:34 Dose: 50 ml Dextrose (Glutose 15) 0 gm PO ONCE PRN; Protocol PRN Reason: Hypoglycemia Protocol Dextrose (Dextrose 50% Inj) 0 ml IV STAT PRN; Protocol PRN Reason: Hypoglycemia Protocol Dextrose (Glutose 15) 0 gm PO ONCE PRN; Protocol PRN Reason: Hypoglycemia Protocol Glucagon (Glucagen Diagnostic Kit) 0 mg IM STAT PRN; Protocol PRN Reason: Hypoglycemia Protocol Glucagon (Glucagen Diagnostic Kit) 0 mg IM STAT PRN; Protocol PRN Reason: Hypoglycemia Protocol Glycerin (Glycerin Adult Suppository) [address] ONCE PRN PRN Reason: Constipation Ceftriaxone Sodium 1 gm/ (Sodium Chloride) 100 mls @ 100 mls/hr IVPB DAILY [facility] PRN Reason: Protocol Last Admin: 02/18/18 21:13 Dose: 100 mls/hr Cefepime HCl 1 gm/ Sodium (Chloride) 100 mls @ 100 mls/hr IVPB DAILY [facility] PRN Reason: Protocol Last Admin: 02/19/18 08:27 Dose: 100 mls/hr Insulin Detemir (Levemir) 5 units SC DAILY [facility] Last Admin: 02/19/18 09:00 Dose: 5 unit Insulin Detemir (Levemir) 10 units SC HS [facility] Last Admin: 02/18/18 21:22 Dose: 10 u Insulin Human Regular (Humulin R) 0 units SC ACHS [facility] PRN Reason: Protocol Last Admin: 02/19/18 07:02 Dose: Not Given Lactic Acid (Lac-Hydrin 12% Lotion (225 G)) 1 applic TOP TID PRN PRN Reason: Itching / Pruritus Lactulose (Enulose) 10 gm PO BID [facility] Last Admin: 02/19/18 08:26 Dose: 10 gm Lidocaine (Lidoderm) 3 ea TD DAILY [facility] Last Admin: 02/19/18 08:26 Dose: 3 ea Losartan Potassium (Cozaar) 25 mg PO DAILY [facility] Last Admin: 02/19/18 08:25 Dose: 25 mg Magnesium Hydroxide (Milk Of Magnesia) 30 ml PO DAILY [facility] Last Admin: 02/19/18 08:38 Dose: Not Given Mirtazapine (Remeron) 30 mg PO HS [facility] Last Admin: 02/18/18 21:09 Dose: 30 mg Morphine Sulfate (Morphine Immediate Release Tab) 15 mg PO Q4 PRN PRN Reason: Pain, moderate (4-7) Last Admin: 02/19/18 08:29 Dose: 15 mg Senna/Docusate Sodium (Senokot S 50 Mg-8.6 Mg) 2 tab PO HS [facility] Last Admin: 02/16/18 21:27 Dose: 2 tab Tamsulosin HCl (Flomax) 0.4 mg PO DAILY [facility] Last Admin: 02/19/18 08:25 Dose: 0.4 mg - Labs Labs: 02/16/18 04:20 02/18/18 06:00 PT 11.9 Seconds (9.8-13.1) 01/24/18 04:20 INR 1.1 (0.9-1.2) 01/24/18 04:20 APTT 46.2 Seconds (25.6-37.1) H D 01/24/18 04:20 - Constitutional Appears: Non-toxic, No Acute Distress - Head Exam Head Exam: ATRAUMATIC, NORMOCEPHALIC - ENT Exam ENT Exam: Mucous Membranes Moist - Respiratory Exam Respiratory Exam: Clear to Ausculation Bilateral, NORMAL BREATHING PATTERN - GI/Abdominal Exam GI & Abdominal Exam: Soft. absent: Tenderness - Extremities Exam Additional comments: +left BKA with dressing clean dry intact SCD's in place bilaterally - Neurological Exam Neurological Exam: Alert, Awake, Oriented x3 - Psychiatric Exam Psychiatric exam: Normal Affect, Normal Mood - Skin Additional comments: +sacral ulcer noted with dressing clean dry intact Assessment and Plan - Assessment and Plan (Free Text) Assessment: 67 y.o. female admitted for [place] of left lower extremity with left BKA having had a Hemorrhagic stroke during her hospital course now with urine retention possibbly due to constipation now with UTI Urinary Tract infection 1- Given Ceftriaxone 1 gram yesterday one dose 2- Started on Cefipime 1 gram today by Nephrology- will inquire the change in Abx given both agents are not nephrotoxic 3- Will await sensitivities Urine Retention 1- Dalal placement day #2 today 2- Pt. also has a sacral ulcer managed with [place]- Wound Care nurse recommendation/intervention appreciated 3- Flomax daily as per Recommendation of Urology 4- Relieve constipation - Bowel movement yesterday will continue CKD-Stage 3B based on GFR of 30 1- Continue to trend BMP, avoid nephrotoxic agents 2- Neurology recommends CT-Head Angio but patient at high risk for Renal injury will discuss with Nephrology risks and benefits 3- Nephrology on board- Dr. 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
[2018-02-19 15:41] LABS: CALCIUM 8.7 mg/dL (8.4-10.2)
--- NOTE | 2018-02-19 17:56 | CP.PCM.PN ---
Subjective - Date & Time of Evaluation Date of Evaluation: 02/19/18 Time of Evaluation: 13:00 - Subjective Subjective: Patient denies shortness of breath; sitting in chair; no nausea/vomiting; Objective - Vital Signs/Intake and Output Vital Signs (last 24 hours): Temp Pulse Resp BP Pulse Ox 98.5 F 87 17 98/60 L 99 02/19/18 16:09 02/19/18 16:09 02/19/18 16:09 02/19/18 16:09 02/19/18 16:09 Intake and Output: 02/19/18 02/19/18 06:59 18:59 Intake Total 900 Output Total 650 Balance 250 - Medications Medications: Current Medications Acetaminophen (Tylenol 325mg Tab) 650 mg PO Q6 PRN PRN Reason: Pain, Mild (1-3) Last Admin: 02/18/18 09:00 Dose: 650 mg Acetaminophen (Tylenol 325mg Tab) 325 mg PO BID [facility] Last Admin: 02/19/18 16:56 Dose: Not Given Aspirin (Ecotrin) 81 mg PO DAILY [facility] Last Admin: 02/19/18 08:26 Dose: 81 mg Atorvastatin Calcium (Lipitor) 40 mg PO HS [facility] Last Admin: 02/18/18 21:09 Dose: 40 mg Benzocaine/Menthol (Cepacol Sore Throat) 1 grazyna PO Q2 PRN PRN Reason: Sore Throat Last Admin: 01/27/18 11:03 Dose: 1 grazyna Bethanechol Chloride (Urecholine) 25 mg PO TID [facility] Last Admin: 02/19/18 16:57 Dose: 25 mg Carvedilol (Coreg) 6.25 mg PO Q12 [facility] Last Admin: 02/19/18 08:25 Dose: 6.25 mg Clopidogrel Bisulfate (Plavix) 75 mg PO DAILY [facility] Last Admin: 02/09/18 08:48 Dose: 75 mg Dextrose (Dextrose 50% Inj) 0 ml IV STAT PRN; Protocol PRN Reason: Hypoglycemia Protocol Last Admin: 02/12/18 05:34 Dose: 50 ml Dextrose (Glutose 15) 0 gm PO ONCE PRN; Protocol PRN Reason: Hypoglycemia Protocol Dextrose (Dextrose 50% Inj) 0 ml IV STAT PRN; Protocol PRN Reason: Hypoglycemia Protocol Dextrose (Glutose 15) 0 gm PO ONCE PRN; Protocol PRN Reason: Hypoglycemia Protocol Glucagon (Glucagen Diagnostic Kit) 0 mg IM STAT PRN; Protocol PRN Reason: Hypoglycemia Protocol Glucagon (Glucagen Diagnostic Kit) 0 mg IM STAT PRN; Protocol PRN Reason: Hypoglycemia Protocol Glycerin (Glycerin Adult Suppository) 1 sup MO ONCE PRN PRN Reason: Constipation Ceftriaxone Sodium 1 gm/ (Sodium Chloride) 100 mls @ 100 mls/hr IVPB DAILY [facility] PRN Reason: Protocol Last Admin: 02/18/18 21:13 Dose: 100 mls/hr Cefepime HCl 1 gm/ Sodium (Chloride) 100 mls @ 100 mls/hr IVPB DAILY [facility] PRN Reason: Protocol Last Admin: 02/19/18 08:27 Dose: 100 mls/hr Insulin Detemir (Levemir) 5 units SC DAILY [facility] Last Admin: 02/19/18 09:00 Dose: 5 unit Insulin Detemir (Levemir) 10 units SC HS [facility] Last Admin: 02/18/18 21:22 Dose: 10 u Insulin Human Regular (Humulin R) 0 units SC ACHS [facility] PRN Reason: Protocol Last Admin: 02/19/18 16:55 Dose: Not Given Lactic Acid (Lac-Hydrin 12% Lotion (225 G)) 1 applic TOP TID PRN PRN Reason: Itching / Pruritus Lactulose (Enulose) 10 gm PO BID [facility] Last Admin: 02/19/18 16:55 Dose: Not Given Lidocaine (Lidoderm) 3 ea TD DAILY [facility] Last Admin: 02/19/18 08:26 Dose: 3 ea Losartan Potassium (Cozaar) 25 mg PO DAILY [facility] Last Admin: 02/19/18 08:25 Dose: 25 mg Magnesium Hydroxide (Milk Of Magnesia) 30 ml PO DAILY [facility] Last Admin: 02/19/18 08:38 Dose: Not Given Mirtazapine (Remeron) 30 mg PO HS [facility] Last Admin: 02/18/18 21:09 Dose: 30 mg Morphine Sulfate (Morphine Immediate Release Tab) 15 mg PO Q4 PRN PRN Reason: Pain, moderate (4-7) Last Admin: 02/19/18 08:29 Dose: 15 mg Senna/Docusate Sodium (Senokot S 50 Mg-8.6 Mg) 2 tab PO HS [facility] Last Admin: 02/16/18 21:27 Dose: 2 tab Tamsulosin HCl (Flomax) 0.4 mg PO DAILY [facility] Last Admin: 02/19/18 08:25 Dose: 0.4 mg - Labs Labs: 02/16/18 04:20 02/19/18 14:52 PT 11.9 Seconds (9.8-13.1) 01/24/18 04:20 INR 1.1 (0.9-1.2) 01/24/18 04:20 APTT 46.2 Seconds (25.6-37.1) H D 01/24/18 04:20 - Constitutional Appears: Non-toxic, No Acute Distress - Eye Exam Eye Exam: absent: Scleral icterus - ENT Exam ENT Exam: Mucous Membranes Moist - Respiratory Exam Respiratory Exam: Clear to Ausculation Bilateral. absent: Respiratory Distress - Cardiovascular Exam Cardiovascular Exam: RRR, +S1, +S2 - GI/Abdominal Exam GI & Abdominal Exam: Soft. absent: Distended, Tenderness - Exam Exam: absent: Bladder Distension - Extremities Exam Additional comments: no leg edema; - Neurological Exam Neurological Exam: Alert, Awake - Psychiatric Exam Psychiatric exam: absent: Agitated - Skin Skin Exam: Warm. absent: Cyanosis Assessment and Plan (1) Acute kidney injury Assessment & Plan: NAI on CKD IIIA; serum creatinine stable; continue to avoid nephrotoxic agents; Status: Acute (2) CKD (chronic kidney disease), stage III Status: Chronic (3) Systolic CHF, chronic Assessment & Plan: On coreg, losartan restarted; continue same to optimize CHF status; Status: Chronic (4) Anemia Status: Chronic (5) PVD (peripheral vascular disease) Status: Chronic (6) Urinary retention Assessment & Plan: Now with UTI, started on abx, urine in zelaya bag looks much more clear; continue per ID recs; Status: Acute
[2018-02-19] MEDS: Docusate-Senna 50 mg-8.6 mg Tab PO SCH (21:31)
[2018-02-20] MEDS: Insulin Regular 100 units/ml SC SCH ×4 (07:24→21:27)
--- NOTE | 2018-02-20 09:07 | CP.PCM.PN ---
Subjective - Date & Time of Evaluation Date of Evaluation: 02/20/18 Time of Evaluation: 09:06 - Subjective Subjective: Ms. Carias was seen and examined at the bedside. She is alert, oriented, speaks mainly Malaysian. She denies any headache, dizziness, lightheadedness.She is able to raise affected leg, follow simple commands. She has a very minimal right arm drift. She is able to feed herself independently. There was no untoward events overnight. Objective - Vital Signs/Intake and Output Vital Signs (last 24 hours): Temp Pulse Resp BP Pulse Ox 97.7 F 85 20 135/67 93 L 02/20/18 08:54 02/20/18 08:54 02/20/18 08:54 02/20/18 08:54 02/20/18 08:54 Intake and Output: 02/20/18 02/20/18 06:59 18:59 Intake Total 360 Output Total 650 Balance -290 - Medications Medications: Current Medications Acetaminophen (Tylenol 325mg Tab) 650 mg PO Q6 PRN PRN Reason: Pain, Mild (1-3) Last Admin: 02/18/18 09:00 Dose: 650 mg Acetaminophen (Tylenol 325mg Tab) 325 mg PO BID [facility] Last Admin: 02/19/18 16:56 Dose: Not Given Aspirin (Ecotrin) 81 mg PO DAILY [facility] Last Admin: 02/19/18 08:26 Dose: 81 mg Atorvastatin Calcium (Lipitor) 40 mg PO HS [facility] Last Admin: 02/19/18 21:31 Dose: 40 mg Benzocaine/Menthol (Cepacol Sore Throat) 1 grazyna PO Q2 PRN PRN Reason: Sore Throat Last Admin: 01/27/18 11:03 Dose: 1 grazyna Bethanechol Chloride (Urecholine) 25 mg PO TID [facility] Last Admin: 02/19/18 16:57 Dose: 25 mg Carvedilol (Coreg) 6.25 mg PO Q12 [facility] Last Admin: 02/19/18 21:30 Dose: 6.25 mg Clopidogrel Bisulfate (Plavix) 75 mg PO DAILY [facility] Last Admin: 02/09/18 08:48 Dose: 75 mg Dextrose (Dextrose 50% Inj) 0 ml IV STAT PRN; Protocol PRN Reason: Hypoglycemia Protocol Last Admin: 02/12/18 05:34 Dose: 50 ml Dextrose (Glutose 15) 0 gm PO ONCE PRN; Protocol PRN Reason: Hypoglycemia Protocol Dextrose (Dextrose 50% Inj) 0 ml IV STAT PRN; Protocol PRN Reason: Hypoglycemia Protocol Dextrose (Glutose 15) 0 gm PO ONCE PRN; Protocol PRN Reason: Hypoglycemia Protocol Glucagon (Glucagen Diagnostic Kit) 0 mg IM STAT PRN; Protocol PRN Reason: Hypoglycemia Protocol Glucagon (Glucagen Diagnostic Kit) 0 mg IM STAT PRN; Protocol PRN Reason: Hypoglycemia Protocol Glycerin (Glycerin Adult Suppository) 1 sup GA ONCE PRN PRN Reason: Constipation Ceftriaxone Sodium 1 gm/ (Sodium Chloride) 100 mls @ 100 mls/hr IVPB DAILY [facility] PRN Reason: Protocol Last Admin: 02/18/18 21:13 Dose: 100 mls/hr Cefepime HCl 1 gm/ Sodium (Chloride) 100 mls @ 100 mls/hr IVPB DAILY [facility] PRN Reason: Protocol Last Admin: 02/19/18 08:27 Dose: 100 mls/hr Insulin Detemir (Levemir) 5 units SC DAILY [facility] Last Admin: 02/19/18 09:00 Dose: 5 unit Insulin Detemir (Levemir) 5 units SC HS [facility] Last Admin: 02/19/18 21:33 Dose: Not Given Insulin Human Regular (Humulin R) 0 units SC ACHS [facility] PRN Reason: Protocol Last Admin: 02/19/18 21:33 Dose: Not Given Lactic Acid (Lac-Hydrin 12% Lotion (225 G)) 1 applic TOP TID PRN PRN Reason: Itching / Pruritus Lactulose (Enulose) 10 gm PO BID [facility] Last Admin: 02/19/18 16:55 Dose: Not Given Lidocaine (Lidoderm) 3 ea TD DAILY [facility] Last Admin: 02/19/18 08:26 Dose: 3 ea Losartan Potassium (Cozaar) 25 mg PO DAILY [facility] Last Admin: 02/19/18 08:25 Dose: 25 mg Magnesium Hydroxide (Milk Of Magnesia) 30 ml PO DAILY [facility] Last Admin: 02/19/18 08:38 Dose: Not Given Mirtazapine (Remeron) 30 mg PO HS [facility] Last Admin: 02/19/18 21:31 Dose: 30 mg Morphine Sulfate (Morphine Immediate Release Tab) 15 mg PO Q4 PRN PRN Reason: Pain, moderate (4-7) Last Admin: 02/19/18 08:29 Dose: 15 mg Senna/Docusate Sodium (Senokot S 50 Mg-8.6 Mg) 2 tab PO HS [facility] Last Admin: 02/19/18 21:31 Dose: 2 tab Tamsulosin HCl (Flomax) 0.4 mg PO DAILY [facility] Last Admin: 02/19/18 08:25 Dose: 0.4 mg - Labs Labs: 02/16/18 04:20 02/19/18 14:52 PT 11.9 Seconds (9.8-13.1) 01/24/18 04:20 INR 1.1 (0.9-1.2) 01/24/18 04:20 APTT 46.2 Seconds (25.6-37.1) H D 01/24/18 04:20 - Constitutional Appears: No Acute Distress - Head Exam Head Exam: NORMAL INSPECTION - Neurological Exam Neurological Exam: Alert, Awake, Oriented x3 Neuro motor strength exam: Left Upper Extremity: 5, Right Upper Extremity: 4, Left Lower Extremity: 5, Right Lower Extremity: 4 Additional comments: Neurological unchanged from previous examination. Assessment and Plan (1) CVA (cerebral vascular accident) Assessment & Plan: Case discussed with Dr. Andujar, continue all current medical, physical, and occupational therapies.CTA is not possible due to elevated creatinine/ NAI. Recommend encourage PO intake such as fluids for brain perfusion. Status: Acute
[2018-02-20] MEDS: Cefepime 1 GM in Sodium Chloride 0.9% 100 ML IVPB SCH (09:22)
[2018-02-20] MEDS: Lidocaine 5% Patch TD SCH (09:22)
[2018-02-20] MEDS: Insulin Detemir 100 Units/ml Inj SC SCH ×2 (09:23→21:33)
[2018-02-20] MEDS: Lactulose 10 gm/15 ml Syrup PO SCH ×2 (09:27→18:16)
[2018-02-20] MEDS: Magnesium Hydroxide Susp 30 ml UD PO SCH (09:39)
--- NOTE | 2018-02-20 10:22 | CP.PCM.PN ---
Subjective - Date & Time of Evaluation Date of Evaluation: 02/20/18 Time of Evaluation: 09:45 - Subjective Subjective: Pt seen and examined at bedside this am. Reports tiredness. AAOx3. pt denies significant overnight events. Pain well controlled with meds. Pt increasing PO diet. Objective - Vital Signs/Intake and Output Vital Signs (last 24 hours): Temp Pulse Resp BP Pulse Ox 97.7 F 85 20 135/67 93 L 02/20/18 08:54 02/20/18 09:27 02/20/18 08:54 02/20/18 09:27 02/20/18 08:54 Intake and Output: 02/20/18 02/20/18 06:59 18:59 Intake Total 360 Output Total 650 Balance -290 - Medications Medications: Current Medications Acetaminophen (Tylenol 325mg Tab) 650 mg PO Q6 PRN PRN Reason: Pain, Mild (1-3) Last Admin: 02/18/18 09:00 Dose: 650 mg Acetaminophen (Tylenol 325mg Tab) 325 mg PO BID [facility] Last Admin: 02/20/18 09:39 Dose: Not Given Aspirin (Ecotrin) 81 mg PO DAILY [facility] Last Admin: 02/20/18 09:25 Dose: 81 mg Atorvastatin Calcium (Lipitor) 40 mg PO HS [facility] Last Admin: 02/19/18 21:31 Dose: 40 mg Benzocaine/Menthol (Cepacol Sore Throat) 1 grazyna PO Q2 PRN PRN Reason: Sore Throat Last Admin: 01/27/18 11:03 Dose: 1 grazyna Bethanechol Chloride (Urecholine) 25 mg PO TID [facility] Last Admin: 02/20/18 09:24 Dose: 25 mg Carvedilol (Coreg) 6.25 mg PO Q12 [facility] Last Admin: 02/20/18 09:27 Dose: 6.25 mg Clopidogrel Bisulfate (Plavix) 75 mg PO DAILY [facility] Last Admin: 02/09/18 08:48 Dose: 75 mg Dextrose (Dextrose 50% Inj) 0 ml IV STAT PRN; Protocol PRN Reason: Hypoglycemia Protocol Last Admin: 02/12/18 05:34 Dose: 50 ml Dextrose (Glutose 15) 0 gm PO ONCE PRN; Protocol PRN Reason: Hypoglycemia Protocol Dextrose (Dextrose 50% Inj) 0 ml IV STAT PRN; Protocol PRN Reason: Hypoglycemia Protocol Dextrose (Glutose 15) 0 gm PO ONCE PRN; Protocol PRN Reason: Hypoglycemia Protocol Glucagon (Glucagen Diagnostic Kit) 0 mg IM STAT PRN; Protocol PRN Reason: Hypoglycemia Protocol Glucagon (Glucagen Diagnostic Kit) 0 mg IM STAT PRN; Protocol PRN Reason: Hypoglycemia Protocol Glycerin (Glycerin Adult Suppository) 1 sup [place] ONCE PRN PRN Reason: Constipation Ceftriaxone Sodium 1 gm/ (Sodium Chloride) 100 mls @ 100 mls/hr IVPB DAILY [facility] PRN Reason: Protocol Last Admin: 02/18/18 21:13 Dose: 100 mls/hr Cefepime HCl 1 gm/ Sodium (Chloride) 100 mls @ 100 mls/hr IVPB DAILY [facility] PRN Reason: Protocol Last Admin: 02/20/18 09:22 Dose: 100 mls/hr Insulin Detemir (Levemir) 5 units SC DAILY [facility] Last Admin: 02/20/18 09:23 Dose: 5 unit Insulin Detemir (Levemir) 5 units SC HS [facility] Last Admin: 02/19/18 21:33 Dose: Not Given Insulin Human Regular (Humulin R) 0 units SC ACHS [facility] PRN Reason: Protocol Last Admin: 02/20/18 07:24 Dose: Not Given Lactic Acid (Lac-Hydrin 12% Lotion (225 G)) 1 applic TOP TID PRN PRN Reason: Itching / Pruritus Lactulose (Enulose) 10 gm PO BID [facility] Last Admin: 02/20/18 09:27 Dose: 10 gm Lidocaine (Lidoderm) 3 ea TD DAILY [facility] Last Admin: 02/20/18 09:22 Dose: 3 ea Losartan Potassium (Cozaar) 25 mg PO DAILY [facility] Last Admin: 02/20/18 09:27 Dose: 25 mg Magnesium Hydroxide (Milk Of Magnesia) 30 ml PO DAILY [facility] Last Admin: 02/20/18 09:39 Dose: Not Given Mirtazapine (Remeron) 30 mg PO [facility] Last Admin: 02/19/18 21:31 Dose: 30 mg Morphine Sulfate (Morphine Immediate Release Tab) 15 mg PO Q4 PRN PRN Reason: Pain, moderate (4-7) Last Admin: 02/19/18 08:29 Dose: 15 mg Senna/Docusate Sodium (Senokot S 50 Mg-8.6 Mg) 2 tab PO HS [facility] Last Admin: 02/19/18 21:31 Dose: 2 tab Tamsulosin HCl (Flomax) 0.4 mg PO DAILY [facility] Last Admin: 02/20/18 09:25 Dose: 0.4 mg - Labs Labs: 02/16/18 04:20 02/19/18 14:52 PT 11.9 Seconds (9.8-13.1) 01/24/18 04:20 INR 1.1 (0.9-1.2) 01/24/18 04:20 APTT 46.2 Seconds (25.6-37.1) H D 01/24/18 04:20 - Constitutional Appears: Well, No Acute Distress - Eye Exam Eye Exam: EOMI - Neck Exam Neck Exam: Full ROM - Respiratory Exam Respiratory Exam: Clear to Ausculation Bilateral. absent: Wheezes - Cardiovascular Exam Cardiovascular Exam: +S1, +S2 - GI/Abdominal Exam GI & Abdominal Exam: Soft. absent: Tenderness - Extremities Exam Extremities Exam: absent: Calf Tenderness Additional comments: L BKA with marci in place. R foot in boot. - Neurological Exam Neurological Exam: Alert, Awake, CN II-XII Intact, Oriented x3 - Psychiatric Exam Psychiatric exam: Normal Affect, Normal Mood Assessment and Plan - Assessment and Plan (Free Text) Plan: 67 y.o. female admitted for gangreen of left lower extremity with left BKA (POD ) having had a Hemorrhagic stroke during her hospital course now with urinary retention possibly due to constipation now with UTI UTI: -ucx: ecoli: on Cefepime 1g and sensitive -ID: Dr. Palacios: recommendations appreciated -continue to monitor Urinary retention: -zelaya day 3 -Flomax -Monitoring for ability to urinate freely DTI -Ulcer of sacrum -Wound care nursing: with meta honey -zelaya in place CKD: -Nephro: Dr. 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 Andujar on board: continue with medical management; pending CTA -Pending CTA once renal function normalizes BKA -POD -pain well controlled: Considering taper of morphine 2/2 to pain well controlled and constipation -marci in place; surgery planning to remove DM -on Levemir -accuchecks -ISS DVT prophylaxis -SCDs Discharge planning: -in progress
--- NOTE | 2018-02-20 13:05 | CP.PCM.PN ---
Subjective - Date & Time of Evaluation Date of Evaluation: 02/20/18 Time of Evaluation: 09:00 - Subjective Subjective: events noted IV rx in progress ok to transition to PO Keflex 500 mg BID for UTI consider eval and zelaya removal when possible Objective - Vital Signs/Intake and Output Vital Signs (last 24 hours): Temp Pulse Resp BP Pulse Ox 97.7 F 85 20 135/67 93 L 02/20/18 08:54 02/20/18 09:27 02/20/18 08:54 02/20/18 09:27 02/20/18 08:54 Intake and Output: 02/20/18 02/20/18 06:59 18:59 Intake Total 360 Output Total 650 Balance -290 - Medications Medications: Current Medications Acetaminophen (Tylenol 325mg Tab) 650 mg PO Q6 PRN PRN Reason: Pain, Mild (1-3) Last Admin: 02/18/18 09:00 Dose: 650 mg Acetaminophen (Tylenol 325mg Tab) 325 mg PO BID [facility] Last Admin: 02/20/18 09:39 Dose: Not Given Acetylcysteine (Acetylcysteine 20%) 6 ml PO BID [facility] Stop: 02/22/18 09:01 Aspirin (Ecotrin) 81 mg PO DAILY [facility] Last Admin: 02/20/18 09:25 Dose: 81 mg Atorvastatin Calcium (Lipitor) 40 mg PO HS [facility] Last Admin: 02/19/18 21:31 Dose: 40 mg Benzocaine/Menthol (Cepacol Sore Throat) 1 grazyna PO Q2 PRN PRN Reason: Sore Throat Last Admin: 01/27/18 11:03 Dose: 1 grazyna Bethanechol Chloride (Urecholine) 25 mg PO TID [facility] Last Admin: 02/20/18 09:24 Dose: 25 mg Carvedilol (Coreg) 6.25 mg PO Q12 [facility] Last Admin: 02/20/18 09:27 Dose: 6.25 mg Cephalexin Monohydrate (Keflex) 500 mg PO BID [facility] PRN Reason: Protocol Stop: 02/25/18 23:55 Clopidogrel Bisulfate (Plavix) 75 mg PO DAILY [facility] Last Admin: 02/09/18 08:48 Dose: 75 mg Dextrose (Dextrose 50% Inj) 0 ml IV STAT PRN; Protocol PRN Reason: Hypoglycemia Protocol Last Admin: 02/12/18 05:34 Dose: 50 ml Dextrose (Glutose 15) 0 gm PO ONCE PRN; Protocol PRN Reason: Hypoglycemia Protocol Dextrose (Dextrose 50% Inj) 0 ml IV STAT PRN; Protocol PRN Reason: Hypoglycemia Protocol Dextrose (Glutose 15) 0 gm PO ONCE PRN; Protocol PRN Reason: Hypoglycemia Protocol Glucagon (Glucagen Diagnostic Kit) 0 mg IM STAT PRN; Protocol PRN Reason: Hypoglycemia Protocol Glucagon (Glucagen Diagnostic Kit) 0 mg IM STAT PRN; Protocol PRN Reason: Hypoglycemia Protocol Glycerin (Glycerin Adult Suppository) 1 sup [place] ONCE PRN PRN Reason: Constipation Ceftriaxone Sodium 1 gm/ (Sodium Chloride) 100 mls @ 100 mls/hr IVPB DAILY [facility] PRN Reason: Protocol Last Admin: 02/18/18 21:13 Dose: 100 mls/hr Sodium Chloride (Sodium Chloride 0.9%) 1,000 mls @ 60 mls/hr IV .[id number] [facility] Stop: 02/21/18 06:00 Insulin Detemir (Levemir) 5 units SC DAILY [facility] Last Admin: 02/20/18 09:23 Dose: 5 unit Insulin Detemir (Levemir) 5 units SC HS [facility] Last Admin: 02/19/18 21:33 Dose: Not Given Insulin Human Regular (Humulin R) 0 units SC ACHS [facility] PRN Reason: Protocol Last Admin: 02/20/18 07:24 Dose: Not Given Lactic Acid (Lac-Hydrin 12% Lotion (225 G)) 1 applic TOP TID PRN PRN Reason: Itching / Pruritus Lactulose (Enulose) 10 gm PO BID [facility] Last Admin: 02/20/18 09:27 Dose: 10 gm Lidocaine (Lidoderm) 3 ea TD DAILY [facility] Last Admin: 02/20/18 09:22 Dose: 3 ea Losartan Potassium (Cozaar) 25 mg PO DAILY [facility] Last Admin: 02/20/18 09:27 Dose: 25 mg Magnesium Hydroxide (Milk Of Magnesia) 30 ml PO DAILY [facility] Last Admin: 02/20/18 09:39 Dose: Not Given Mirtazapine (Remeron) 30 mg PO HS [facility] Last Admin: 02/19/18 21:31 Dose: 30 mg Morphine Sulfate (Morphine Immediate Release Tab) 15 mg PO Q4 PRN PRN Reason: Pain, moderate (4-7) Last Admin: 02/19/18 08:29 Dose: 15 mg Senna/Docusate Sodium (Senokot S 50 Mg-8.6 Mg) 2 tab PO HS [facility] Last Admin: 02/19/18 21:31 Dose: 2 tab Tamsulosin HCl (Flomax) 0.4 mg PO DAILY [facility] Last Admin: 02/20/18 09:25 Dose: 0.4 mg - Labs Labs: 02/16/18 04:20 02/19/18 14:52 PT 11.9 Seconds (9.8-13.1) 01/24/18 04:20 INR 1.1 (0.9-1.2) 01/24/18 04:20 APTT 46.2 Seconds (25.6-37.1) H D 01/24/18 04:20 - Constitutional Appears: Non-toxic, Chronically Ill - Head Exam Head Exam: NORMOCEPHALIC - Eye Exam Eye Exam: PERRL. absent: Scleral icterus - ENT Exam ENT Exam: Mucous Membranes Dry - Neck Exam Neck Exam: absent: Lymphadenopathy - Respiratory Exam Respiratory Exam: Decreased Breath Sounds - Cardiovascular Exam Cardiovascular Exam: REGULAR RHYTHM - GI/Abdominal Exam GI & Abdominal Exam: Distended, Soft - Rectal Exam Rectal Exam: Deferred - Exam Exam: NORMAL INSPECTION - Extremities Exam Extremities Exam: absent: Pedal Edema - Back Exam Back Exam: absent: CVA tenderness (L), CVA tenderness (R) - Neurological Exam Neurological Exam: Alert, Awake, Oriented x3 - Psychiatric Exam Psychiatric exam: Normal Mood - Skin Skin Exam: Dry Additional comments: stump is dry Assessment and Plan (1) Gangrene Status: Acute (2) Acute kidney injury Status: Acute (3) CAD (coronary artery disease) Status: Acute (4) Cardiomyopathy, dilated Status: Acute (5) Diabetic foot ulcer Status: Acute (6) Hyperglycemia due to type 2 diabetes mellitus Status: Acute (7) Osteomyelitis Status: Acute
[2018-02-20] MEDS: Sodium Chloride 0.9% 1,000 ML IV SCH (13:43)
[2018-02-20] MEDS ORDERED: Acetylcysteine 20% Inhal Soln (4ml) PO SCH (17:00)
[2018-02-20] MEDS: Docusate-Senna 50 mg-8.6 mg Tab PO SCH (21:31)
[2018-02-20] MEDS: Morphine 15 mg Immediate Release Tab PO PRN (21:36)
[2018-02-21 05:23] LABS: HEMOGLOBIN 9.3 g/dL (12.0-16.0); MEAN CELL VOLUME 86.1 fl (81.0-99.0); MEAN CORPUSCULAR HEMOGLOBIN 28.9 pg (27.0-31.0); MEAN CORPUSCULAR HGB CONC 33.5 g/dL (33.0-37.0); RBC 3.21 Mil/uL (3.80-5.20); RED CELL DISTRIBUTION WIDTH 13.6 % (11.5-14.5); WHITE BLOOD COUNT 9.2 K/uL (4.8-10.8)
[2018-02-21 05:41] LABS: ALB/GLOB RATIO 0.8 (1.0-2.1); ALBUMIN 2.9 g/dL (3.5-5.0); CALCIUM 8.8 mg/dL (8.4-10.2)
[2018-02-21] MEDS: Insulin Regular 100 units/ml SC SCH ×4 (06:51→22:36)
[2018-02-21] MEDS: Sodium Chloride 0.9% 1,000 ML IV SCH (06:53)
--- NOTE | 2018-02-21 07:10 | CP.PCM.PN ---
Subjective - Date & Time of Evaluation Date of Evaluation: 02/21/18 Time of Evaluation: 09:30 - Subjective Subjective: Pt seen and examined at bedside resting. Pt denies significant overnight events. Pt enthusiastic about recent (2) bowel movements yesterday. Pt reports being able to eat all of her breakfast this morning. Objective - Vital Signs/Intake and Output Vital Signs (last 24 hours): Temp Pulse Resp BP Pulse Ox 99.1 F 78 17 119/64 96 02/21/18 00:27 02/21/18 00:27 02/21/18 00:27 02/21/18 00:27 02/21/18 00:27 - Medications Medications: Current Medications Acetaminophen (Tylenol 325mg Tab) 650 mg PO Q6 PRN PRN Reason: Pain, Mild (1-3) Last Admin: 02/18/18 09:00 Dose: 650 mg Acetaminophen (Tylenol 325mg Tab) 325 mg PO BID [facility] Last Admin: 02/20/18 18:19 Dose: 325 mg Acetylcysteine (Acetylcysteine 20%) 6 ml PO BID [facility] Stop: 02/22/18 09:01 Aspirin (Ecotrin) 81 mg PO DAILY [facility] Last Admin: 02/20/18 09:25 Dose: 81 mg Atorvastatin Calcium (Lipitor) 40 mg PO HS [facility] Last Admin: 02/20/18 21:33 Dose: 40 mg Benzocaine/Menthol (Cepacol Sore Throat) 1 grazyna PO Q2 PRN PRN Reason: Sore Throat Last Admin: 01/27/18 11:03 Dose: 1 grazyna Bethanechol Chloride (Urecholine) 25 mg PO TID [facility] Last Admin: 02/20/18 18:19 Dose: 25 mg Carvedilol (Coreg) 6.25 mg PO Q12 [facility] Last Admin: 02/20/18 21:32 Dose: 6.25 mg Cephalexin Monohydrate (Keflex) 500 mg PO BID [facility] PRN Reason: Protocol Stop: 02/25/18 23:55 Clopidogrel Bisulfate (Plavix) 75 mg PO DAILY [facility] Last Admin: 02/09/18 08:48 Dose: 75 mg Dextrose (Dextrose 50% Inj) 0 ml IV STAT PRN; Protocol PRN Reason: Hypoglycemia Protocol Last Admin: 02/12/18 05:34 Dose: 50 ml Dextrose (Glutose 15) 0 gm PO ONCE PRN; Protocol PRN Reason: Hypoglycemia Protocol Dextrose (Dextrose 50% Inj) 0 ml IV STAT PRN; Protocol PRN Reason: Hypoglycemia Protocol Dextrose (Glutose 15) 0 gm PO ONCE PRN; Protocol PRN Reason: Hypoglycemia Protocol Glucagon (Glucagen Diagnostic Kit) 0 mg IM STAT PRN; Protocol PRN Reason: Hypoglycemia Protocol Glucagon (Glucagen Diagnostic Kit) 0 mg IM STAT PRN; Protocol PRN Reason: Hypoglycemia Protocol Glycerin (Glycerin Adult Suppository) 1 sup UT ONCE PRN PRN Reason: Constipation Ceftriaxone Sodium 1 gm/ (Sodium Chloride) 100 mls @ 100 mls/hr IVPB DAILY [facility] PRN Reason: Protocol Last Admin: 02/18/18 21:13 Dose: 100 mls/hr Insulin Detemir (Levemir) 5 units SC DAILY [facility] Last Admin: 02/20/18 09:23 Dose: 5 unit Insulin Detemir (Levemir) 5 units SC HS [facility] Last Admin: 02/20/18 21:33 Dose: 5 units Insulin Human Regular (Humulin R) 0 units SC ACHS [facility] PRN Reason: Protocol Last Admin: 02/21/18 06:51 Dose: Not Given Lactic Acid (Lac-Hydrin 12% Lotion (225 G)) 1 applic TOP TID PRN PRN Reason: Itching / Pruritus Lactulose (Enulose) 10 gm PO BID [facility] Last Admin: 02/20/18 18:16 Dose: Not Given Lidocaine (Lidoderm) 3 ea TD DAILY [facility] Last Admin: 02/20/18 09:22 Dose: 3 ea Losartan Potassium (Cozaar) 25 mg PO DAILY [facility] Last Admin: 02/20/18 09:27 Dose: 25 mg Magnesium Hydroxide (Milk Of Magnesia) 30 ml PO DAILY [facility] Last Admin: 02/20/18 09:39 Dose: Not Given Mirtazapine (Remeron) 30 mg PO HS [facility] Last Admin: 02/20/18 21:34 Dose: 30 mg Morphine Sulfate (Morphine Immediate Release Tab) 15 mg PO Q4 PRN PRN Reason: Pain, moderate (4-7) Last Admin: 02/20/18 21:36 Dose: 15 mg Senna/Docusate Sodium (Senokot S 50 Mg-8.6 Mg) 2 tab PO HS [facility] Last Admin: 02/20/18 21:31 Dose: Not Given Tamsulosin HCl (Flomax) 0.4 mg PO DAILY [facility] Last Admin: 02/20/18 09:25 Dose: 0.4 mg - Labs Labs: 02/21/18 04:20 02/21/18 04:20 PT 11.9 Seconds (9.8-13.1) 01/24/18 04:20 INR 1.1 (0.9-1.2) 01/24/18 04:20 APTT 46.2 Seconds (25.6-37.1) H D 01/24/18 04:20 - Constitutional Appears: No Acute Distress - Eye Exam Eye Exam: EOMI - Respiratory Exam Respiratory Exam: Clear to Ausculation Bilateral. absent: Wheezes - Cardiovascular Exam Cardiovascular Exam: +S1, +S2 - GI/Abdominal Exam GI & Abdominal Exam: Soft, Normal Bowel Sounds. absent: Tenderness - Extremities Exam Additional comments: L BKA R in boot to decrease ulcer Pt limited with ambulation, however, PT is able to assist with R shoulder function and being able to sit in her chair. - Neurological Exam Neurological Exam: Alert, Awake. absent: Oriented x3 (June. ) - Psychiatric Exam Psychiatric exam: Normal Affect Assessment and Plan - Assessment and Plan (Free Text) Plan: 67 y.o. female admitted for gangrene of left lower extremity, S/P left BKA (11/2017) having had a Hemorrhagic stroke, possibly during her hospital course now with urinary retention possibly 2/2 to constipation and with UTI UTI: -ucx: ecoli: on Keflex 500 mg PO BID -ID: Dr. Palacios: recommendations appreciated -continue to monitor Urinary retention: -zelaya day 4 -Flomax -Urology: Dr. Snell: recommendations appreciated -Monitoring for ability to urinate freely DTI -Ulcer of sacrum; improving -Wound care nursing: with meta honey; zinc and vitamin C -zelaya in place CKD: -Nephro: Dr. 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 Andujar on board: continue with medical management; CTA: today; pending read with further discussion with neurointervention BKA -01/24/2018 -Pain management: started gabapentin to help with phantom limb pain. -marci in place; surgery planning to remove DM -on Levemir: d/c QHS 2/2 am hypoglycemia -accuchecks -ISS DVT prophylaxis -SCDs -ambulation with PT Discharge planning: -in progress
--- NOTE | 2018-02-21 09:21 | CP.PCM.PN ---
Subjective - Date & Time of Evaluation Date of Evaluation: 02/21/18 Time of Evaluation: 09:21 - Subjective Subjective: Ms. Carias was seen and examined at the bedside. She is alert, oriented, speaks mainly Green[place]ic. She denies any headache, dizziness, lightheadedness.She is able to raise affected leg, follow simple commands. She has a very minimal right arm drift. She is able to feed herself independently, but with poor intake. Her creatinine level is slowly trending down, at present it is 1.3.There was no untoward events overnight. Objective - Vital Signs/Intake and Output Vital Signs (last 24 hours): Temp Pulse Resp BP Pulse Ox 98.5 F 82 18 112/66 97 02/21/18 07:54 02/21/18 08:05 02/21/18 07:54 02/21/18 07:54 02/21/18 07:54 - Medications Medications: Current Medications Acetaminophen (Tylenol 325mg Tab) 650 mg PO Q6 PRN PRN Reason: Pain, Mild (1-3) Last Admin: 02/18/18 09:00 Dose: 650 mg Acetaminophen (Tylenol 325mg Tab) 325 mg PO BID [facility] Last Admin: 02/20/18 18:19 Dose: 325 mg Acetylcysteine (Acetylcysteine 20%) 6 ml PO BID [facility] Stop: 02/22/18 09:01 Aspirin (Ecotrin) 81 mg PO DAILY [facility] Last Admin: 02/20/18 09:25 Dose: 81 mg Atorvastatin Calcium (Lipitor) 40 mg PO HS [facility] Last Admin: 02/20/18 21:33 Dose: 40 mg Benzocaine/Menthol (Cepacol Sore Throat) 1 grazyna PO Q2 PRN PRN Reason: Sore Throat Last Admin: 01/27/18 11:03 Dose: 1 grazyna Bethanechol Chloride (Urecholine) 25 mg PO TID [facility] Last Admin: 02/20/18 18:19 Dose: 25 mg Carvedilol (Coreg) 6.25 mg PO Q12 [facility] Last Admin: 02/20/18 21:32 Dose: 6.25 mg Cephalexin Monohydrate (Keflex) 500 mg PO BID [facility] PRN Reason: Protocol Stop: 02/25/18 23:55 Clopidogrel Bisulfate (Plavix) 75 mg PO DAILY [facility] Last Admin: 02/09/18 08:48 Dose: 75 mg Dextrose (Dextrose 50% Inj) 0 ml IV STAT PRN; Protocol PRN Reason: Hypoglycemia Protocol Last Admin: 02/12/18 05:34 Dose: 50 ml Dextrose (Glutose 15) 0 gm PO ONCE PRN; Protocol PRN Reason: Hypoglycemia Protocol Dextrose (Dextrose 50% Inj) 0 ml IV STAT PRN; Protocol PRN Reason: Hypoglycemia Protocol Dextrose (Glutose 15) 0 gm PO ONCE PRN; Protocol PRN Reason: Hypoglycemia Protocol Glucagon (Glucagen Diagnostic Kit) 0 mg IM STAT PRN; Protocol PRN Reason: Hypoglycemia Protocol Glucagon (Glucagen Diagnostic Kit) 0 mg IM STAT PRN; Protocol PRN Reason: Hypoglycemia Protocol Glycerin (Glycerin Adult Suppository) 1 sup RI ONCE PRN PRN Reason: Constipation Ceftriaxone Sodium 1 gm/ (Sodium Chloride) 100 mls @ 100 mls/hr IVPB DAILY [facility] PRN Reason: Protocol Last Admin: 02/18/18 21:13 Dose: 100 mls/hr Insulin Detemir (Levemir) 5 units SC DAILY [facility] Last Admin: 02/20/18 09:23 Dose: 5 unit Insulin Human Regular (Humulin R) 0 units SC ACHS [facility] PRN Reason: Protocol Last Admin: 02/21/18 06:51 Dose: Not Given Lactic Acid (Lac-Hydrin 12% Lotion (225 G)) 1 applic TOP TID PRN PRN Reason: Itching / Pruritus Lactulose (Enulose) 10 gm PO BID [facility] Last Admin: 02/20/18 18:16 Dose: Not Given Lidocaine (Lidoderm) 3 ea TD DAILY [facility] Last Admin: 02/20/18 09:22 Dose: 3 ea Losartan Potassium (Cozaar) 25 mg PO DAILY [facility] Last Admin: 02/20/18 09:27 Dose: 25 mg Magnesium Hydroxide (Milk Of Magnesia) 30 ml PO DAILY [facility] Last Admin: 02/20/18 09:39 Dose: Not Given Mirtazapine (Remeron) 30 mg PO HS [facility] Last Admin: 02/20/18 21:34 Dose: 30 mg Morphine Sulfate (Morphine Immediate Release Tab) 15 mg PO Q4 PRN PRN Reason: Pain, moderate (4-7) Last Admin: 02/20/18 21:36 Dose: 15 mg Senna/Docusate Sodium (Senokot S 50 Mg-8.6 Mg) 2 tab PO HS [facility] Last Admin: 02/20/18 21:31 Dose: Not Given Tamsulosin HCl (Flomax) 0.4 mg PO DAILY [facility] Last Admin: 02/20/18 09:25 Dose: 0.4 mg - Labs Labs: 02/21/18 04:20 02/21/18 04:20 PT 11.9 Seconds (9.8-13.1) 01/24/18 04:20 INR 1.1 (0.9-1.2) 01/24/18 04:20 APTT 46.2 Seconds (25.6-37.1) H D 01/24/18 04:20 - Constitutional Appears: No Acute Distress - Head Exam Head Exam: NORMAL INSPECTION - Neurological Exam Neurological Exam: Alert, Awake, Oriented x3 Neuro motor strength exam: Left Upper Extremity: 5, Right Upper Extremity: 4, Left Lower Extremity: 5, Right Lower Extremity: 4 Additional comments: Neurological examination unchanged from previous examination. Assessment and Plan (1) CVA (cerebral vascular accident) Assessment & Plan: Case discussed with Dr. Phillips, continue all current medical, physical, and occupational therapies. Recommend CTA since creatinine is now trending down and fto assist the neurointerventionalist for their treatment plan . Recommend encourage PO intake such as fluids for brain perfusion. Status: Acute
[2018-02-21] MEDS: Insulin Detemir 100 Units/ml Inj SC SCH (09:41)
[2018-02-21] MEDS: Lactulose 10 gm/15 ml Syrup PO SCH ×2 (09:47→16:57)
[2018-02-21] MEDS: Lidocaine 5% Patch TD SCH (09:47)
[2018-02-21] MEDS: Magnesium Hydroxide Susp 30 ml UD PO SCH (09:48)
[2018-02-21] MEDS ORDERED: Sodium Chloride 0.9% 100 ML ONE (12:49)
[2018-02-21] MEDS ORDERED: Iodixanol 320 MG/ML 100 ML BOTTLE IV ONE (12:49)
--- NOTE | 2018-02-21 16:04 | CT ---
PROCEDURE: CT Angiography of the Brain. HISTORY: CVA COMPARISON: None available. TECHNIQUE: CT angiography of the intracranial and cervical arteries was performed. Coronal and sagittal maximum intensity projection reformatted images were generated. Contrast Dose: Visipaque 320, 95 cc Radiation dose:Total exam DLP = 2195.86 mGy-cm. This CT exam was performed using one or more of the following dose reduction techniques: Automated exposure control, adjustment of the mA and/or kV according to patient size, and/or use of iterative reconstruction technique. FINDINGS: INTERNAL CEREBRAL ARTERIES: Atherosclerotic changes are identified at the bilateral cavernous internal carotid artery segments are significantly greater the right than left sides. No significant stenosis appreciate the left cavernous ICA, however, there is a moderate to severe stenosis of the mid to distal right cavernous ICA. The skull base, petrous, and supraclinoid segments are bilaterally widely patent. ANTERIOR CEREBRAL ARTERIES: There is a hypoplastic right A1 SHERINE segment with the left SHERINE widely patent as well as the anterior communicating artery. Smaller distal branches unremarkable, as visualized. MIDDLE CEREBRAL ARTERIES: Unremarkable. M1 and M2 segments are widely patent. Perisylvian branches grossly symmetric. POSTERIOR CIRCULATION: Basilar Artery: Unremarkable. Distal Vertebral Arteries: The left vertebral artery appears unremarkable with a hypoplastic distal right vertebral artery noted. Posterior Cerebral Arteries: The right posterior artery appears hypoplastic and ectatic but patent. The left MANUFACTURING TEST ENGINEER is patent and unremarkable appearing. The bilateral posterior communicating arteries appear widely patent with the particularly robust appearing right PCOM artery. Posterior Inferior Cerebellar Arteries: Unremarkable. NECK CTA: Common Carotid arteries: The bilateral common carotid appear widely patent from their origins to their bifurcations with no significant stenosis appreciated. No evidence to suggest common carotid artery dissection. Limited plaque right greater than left carotid bulbs. Internal Carotid arteries: No significant stenosis is appreciated throughout the cervical internal carotid artery segments bilaterally and there is no evidence of dissection either. External Carotid arteries: Appear unremarkable bilaterally. Vertebral arteries: The left vertebral artery is widely patent throughout. Hypoplastic right vertebral artery is likely appreciated diffusely with dissection not favored but not completely excluded. ANEURYSM/ VASCULAR MALFORMATIONS: None. OTHER FINDINGS: None. IMPRESSION: 1) Moderate to severe stenosis right cavernous ICA with widely hammer mildly atherosclerotic left ICA. 2) Hypoplastic but patent right A1 SHERINE. Widely patent left CA and A. Comm. arteries. 3) Hypoplastic right MANUFACTURING TEST ENGINEER, unremarkable left MANUFACTURING TEST ENGINEER. Widely patent bilateral P. Comm. arteries. 4) Hypoplastic right verterbral artery favored over dissection (though not completely excluded).
--- NOTE | 2018-02-21 19:39 | CP.PCM.PN ---
Objective - Vital Signs/Intake and Output Vital Signs (last 24 hours): Temp Pulse Resp BP Pulse Ox 98.6 F 79 18 123/69 96 02/21/18 16:00 02/21/18 16:45 02/21/18 16:00 02/21/18 16:00 02/21/18 16:45 - Medications Medications: Current Medications Acetaminophen (Tylenol 325mg Tab) 650 mg PO Q6 PRN PRN Reason: Pain, Mild (1-3) Last Admin: 02/18/18 09:00 Dose: 650 mg Acetaminophen (Tylenol 325mg Tab) 325 mg PO BID [facility] Last Admin: 02/21/18 18:31 Dose: Not Given Ascorbic Acid (Vitamin C 500 Mg Tab) 500 mg PO DAILY [facility] Aspirin (Ecotrin) 81 mg PO DAILY [facility] Last Admin: 02/21/18 09:44 Dose: 81 mg Atorvastatin Calcium (Lipitor) 40 mg PO HS [facility] Last Admin: 02/20/18 21:33 Dose: 40 mg Benzocaine/Menthol (Cepacol Sore Throat) 1 grazyna PO Q2 PRN PRN Reason: Sore Throat Last Admin: 01/27/18 11:03 Dose: 1 grazyna Bethanechol Chloride (Urecholine) 25 mg PO TID [facility] Last Admin: 02/21/18 18:11 Dose: 25 mg Carvedilol (Coreg) 6.25 mg PO Q12 [facility] Last Admin: 02/21/18 09:44 Dose: 6.25 mg Cephalexin Monohydrate (Keflex) 500 mg PO BID [facility] PRN Reason: Protocol Stop: 02/25/18 23:55 Last Admin: 02/21/18 18:11 Dose: 500 mg Clopidogrel Bisulfate (Plavix) 75 mg PO DAILY [facility] Last Admin: 02/09/18 08:48 Dose: 75 mg Dextrose (Dextrose 50% Inj) 0 ml IV STAT PRN; Protocol PRN Reason: Hypoglycemia Protocol Last Admin: 02/12/18 05:34 Dose: 50 ml Dextrose (Glutose 15) 0 gm PO ONCE PRN; Protocol PRN Reason: Hypoglycemia Protocol Dextrose (Dextrose 50% Inj) 0 ml IV STAT PRN; Protocol PRN Reason: Hypoglycemia Protocol Dextrose (Glutose 15) 0 gm PO ONCE PRN; Protocol PRN Reason: Hypoglycemia Protocol Gabapentin (Neurontin) 300 mg PO BID [facility] Last Admin: 02/21/18 18:10 Dose: 300 mg Glucagon (Glucagen Diagnostic Kit) 0 mg IM STAT PRN; Protocol PRN Reason: Hypoglycemia Protocol Glucagon (Glucagen Diagnostic Kit) 0 mg IM STAT PRN; Protocol PRN Reason: Hypoglycemia Protocol Glycerin (Glycerin Adult Suppository) 1 sup OR ONCE PRN PRN Reason: Constipation Ceftriaxone Sodium 1 gm/ (Sodium Chloride) 100 mls @ 100 mls/hr IVPB DAILY [facility] PRN Reason: Protocol Last Admin: 02/18/18 21:13 Dose: 100 mls/hr Insulin Detemir (Levemir) 5 units SC DAILY [facility] Last Admin: 02/21/18 09:41 Dose: 5 unit Insulin Human Regular (Humulin R) 0 units SC ACHS [facility] PRN Reason: Protocol Last Admin: 02/21/18 16:11 Dose: 2 units Lactic Acid (Lac-Hydrin 12% Lotion (225 G)) 1 applic TOP TID PRN PRN Reason: Itching / Pruritus Lactulose (Enulose) 10 gm PO BID [facility] Last Admin: 02/21/18 16:57 Dose: Not Given Lidocaine (Lidoderm) 3 ea TD DAILY [facility] Last Admin: 02/21/18 09:47 Dose: Not Given Losartan Potassium (Cozaar) 25 mg PO DAILY [facility] Last Admin: 02/21/18 09:46 Dose: 25 mg Magnesium Hydroxide (Milk Of Magnesia) 30 ml PO DAILY [facility] Last Admin: 02/21/18 09:48 Dose: Not Given Mirtazapine (Remeron) 30 mg PO HS [facility] Last Admin: 02/20/18 21:34 Dose: 30 mg Morphine Sulfate (Morphine Immediate Release Tab) 15 mg PO Q4 PRN PRN Reason: Pain, moderate (4-7) Last Admin: 02/20/18 21:36 Dose: 15 mg Nystatin (Nystop Topical Powder) 1 applic TOP TID [facility] Last Admin: 02/21/18 18:10 Dose: Not Given Senna/Docusate Sodium (Senokot S 50 Mg-8.6 Mg) 2 tab PO HS [facility] Last Admin: 02/20/18 21:31 Dose: Not Given Tamsulosin HCl (Flomax) 0.4 mg PO DAILY [facility] Last Admin: 02/21/18 15:31 Dose: 0.4 mg Zinc Sulfate (Zinc Sulfate 220 Mg Cap) 220 mg PO DAILY [facility] - Labs Labs: 02/21/18 04:20 02/21/18 04:20 PT 11.9 Seconds (9.8-13.1) 01/24/18 04:20 INR 1.1 (0.9-1.2) 01/24/18 04:20 APTT 46.2 Seconds (25.6-37.1) H D 01/24/18 04:20 Assessment and Plan (1) Acute kidney injury Status: Acute (2) CKD (chronic kidney disease), stage III Status: Chronic (3) Systolic CHF, chronic Status: Chronic (4) Anemia Status: Chronic (5) PVD (peripheral vascular disease) Status: Chronic (6) Urinary retention Status: Acute
[2018-02-21] MEDS: Docusate-Senna 50 mg-8.6 mg Tab PO SCH (22:35)
[2018-02-21] MEDS: Morphine 15 mg Immediate Release Tab PO PRN (22:42)
--- NOTE | 2018-02-22 06:49 | CP.PCM.PN ---
Subjective - Date & Time of Evaluation Date of Evaluation: 02/22/18 Time of Evaluation: 06:49 - Subjective Subjective: 67 y/o F evaluated and examined by bedside. Pt reports feeling not so bad. Pt c/ o of L foot pain last night, 9/10 intensity and progressively improved after sleep and medications. Pt states appetite has increased a little, eating more now. No fever, nausea or vomiting reported overnight. Objective - Vital Signs/Intake and Output Vital Signs (last 24 hours): Temp Pulse Resp BP Pulse Ox 98.2 F 81 18 112/63 98 02/22/18 04:59 02/22/18 04:59 02/22/18 04:59 02/22/18 04:59 02/22/18 04:59 - Medications Medications: Current Medications Acetaminophen (Tylenol 325mg Tab) 650 mg PO Q6 PRN PRN Reason: Pain, Mild (1-3) Last Admin: 02/18/18 09:00 Dose: 650 mg Acetaminophen (Tylenol 325mg Tab) 325 mg PO BID [facility] Last Admin: 02/21/18 18:31 Dose: Not Given Ascorbic Acid (Vitamin C 500 Mg Tab) 500 mg PO DAILY [facility] Aspirin (Ecotrin) 81 mg PO DAILY [facility] Last Admin: 02/21/18 09:44 Dose: 81 mg Atorvastatin Calcium (Lipitor) 40 mg PO HS [facility] Last Admin: 02/21/18 22:31 Dose: 40 mg Benzocaine/Menthol (Cepacol Sore Throat) 1 grazyna PO Q2 PRN PRN Reason: Sore Throat Last Admin: 01/27/18 11:03 Dose: 1 grazyna Bethanechol Chloride (Urecholine) 25 mg PO TID [facility] Last Admin: 02/21/18 18:11 Dose: 25 mg Carvedilol (Coreg) 6.25 mg PO Q12 [facility] Last Admin: 02/21/18 22:31 Dose: 6.25 mg Cephalexin Monohydrate (Keflex) 500 mg PO BID [facility] PRN Reason: Protocol Stop: 02/25/18 23:55 Last Admin: 02/21/18 18:11 Dose: 500 mg Clopidogrel Bisulfate (Plavix) 75 mg PO DAILY [facility] Last Admin: 02/09/18 08:48 Dose: 75 mg Dextrose (Dextrose 50% Inj) 0 ml IV STAT PRN; Protocol PRN Reason: Hypoglycemia Protocol Last Admin: 02/12/18 05:34 Dose: 50 ml Dextrose (Glutose 15) 0 gm PO ONCE PRN; Protocol PRN Reason: Hypoglycemia Protocol Dextrose (Dextrose 50% Inj) 0 ml IV STAT PRN; Protocol PRN Reason: Hypoglycemia Protocol Dextrose (Glutose 15) 0 gm PO ONCE PRN; Protocol PRN Reason: Hypoglycemia Protocol Gabapentin (Neurontin) 300 mg PO BID [facility] Last Admin: 02/21/18 18:10 Dose: 300 mg Glucagon (Glucagen Diagnostic Kit) 0 mg IM STAT PRN; Protocol PRN Reason: Hypoglycemia Protocol Glucagon (Glucagen Diagnostic Kit) 0 mg IM STAT PRN; Protocol PRN Reason: Hypoglycemia Protocol Glycerin (Glycerin Adult Suppository) 1 sup MS ONCE PRN PRN Reason: Constipation Ceftriaxone Sodium 1 gm/ (Sodium Chloride) 100 mls @ 100 mls/hr IVPB DAILY [facility] PRN Reason: Protocol Last Admin: 02/18/18 21:13 Dose: 100 mls/hr Insulin Detemir (Levemir) 5 units SC DAILY [facility] Last Admin: 02/21/18 09:41 Dose: 5 unit Insulin Human Regular (Humulin R) 0 units SC ACHS [facility] PRN Reason: Protocol Last Admin: 02/21/18 22:36 Dose: Not Given Lactic Acid (Lac-Hydrin 12% Lotion (225 G)) 1 applic TOP TID PRN PRN Reason: Itching / Pruritus Lactulose (Enulose) 10 gm PO BID [facility] Last Admin: 02/21/18 16:57 Dose: Not Given Lidocaine (Lidoderm) 3 ea TD DAILY [facility] Last Admin: 02/21/18 09:47 Dose: Not Given Losartan Potassium (Cozaar) 25 mg PO DAILY [facility] Last Admin: 02/21/18 09:46 Dose: 25 mg Magnesium Hydroxide (Milk Of Magnesia) 30 ml PO DAILY [facility] Last Admin: 02/21/18 09:48 Dose: Not Given Mirtazapine (Remeron) 30 mg PO HS [facility] Last Admin: 02/21/18 22:32 Dose: 30 mg Morphine Sulfate (Morphine Immediate Release Tab) 15 mg PO Q4 PRN PRN Reason: Pain, moderate (4-7) Last Admin: 02/21/18 22:42 Dose: 15 mg Nystatin (Nystop Topical Powder) 1 applic TOP TID [facility] Last Admin: 02/21/18 18:10 Dose: Not Given Senna/Docusate Sodium (Senokot S 50 Mg-8.6 Mg) 2 tab PO HS [facility] Last Admin: 02/21/18 22:35 Dose: Not Given Tamsulosin HCl (Flomax) 0.4 mg PO DAILY [facility] Last Admin: 02/21/18 15:31 Dose: 0.4 mg Zinc Sulfate (Zinc Sulfate 220 Mg Cap) 220 mg PO DAILY [facility] - Labs Labs: 02/21/18 04:20 02/21/18 04:20 PT 11.9 Seconds (9.8-13.1) 01/24/18 04:20 INR 1.1 (0.9-1.2) 01/24/18 04:20 APTT 46.2 Seconds (25.6-37.1) H D 01/24/18 04:20 - Constitutional Appears: Well, No Acute Distress - Head Exam Head Exam: ATRAUMATIC, NORMAL INSPECTION - Eye Exam Eye Exam: EOMI - ENT Exam ENT Exam: Mucous Membranes Dry - Neck Exam Neck Exam: Full ROM - Respiratory Exam Respiratory Exam: Clear to Ausculation Bilateral, NORMAL BREATHING PATTERN - Cardiovascular Exam Cardiovascular Exam: +S1, +S2 - GI/Abdominal Exam GI & Abdominal Exam: Soft, Normal Bowel Sounds. absent: Tenderness - Extremities Exam Additional comments: L BKA: marci still present with some dark black tissue around marci, tenderness. R lower leg on boot. - Neurological Exam Neurological Exam: Alert, Awake, Oriented x3 - Skin Skin Exam: Dry Assessment and Plan - Assessment and Plan (Free Text) Assessment: 67 y.o. 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 Palacios: recommendations appreciated -continue to monitor -Before discharge, discuss with family about zelaya's catheter care and monthly zelaya's replacement. Urinary retention: -zelaya day 5 -C/w Flomax -Urology: Dr. 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 nAdujar on board: continue with medical management; -CTA yesterday 02/21: moderate to severe stenosis R cavernous ICA. See full report. -F/U further discussion about possible neuro-intervention BKA -01/24/2018 -Pain management: started gabapentin to help with phantom limb pain. -marci in place. General Surgery evaluating marci removal. DTI -Ulcer of sacrum; improving -Wound care nursing: with meta honey; zinc and vitamin C -zelaya in place CKD: -Nephro: Dr. Schultz: recommendations appreciated; s/p NS and acetylcysteine -BUN/Cr: 28/1.3 on 02/21, yesterday DM -on Levemir: d/c QHS 2/2 am hypoglycemia -accuchecks -ISS HTN -On Losartan 25mg PO daily DVT prophylaxis -SCDs -ambulation with PT assistance.
[2018-02-22] MEDS: Insulin Regular 100 units/ml SC SCH ×4 (08:44→22:41)
[2018-02-22] MEDS: Lactulose 10 gm/15 ml Syrup PO SCH (08:47)
[2018-02-22] MEDS: Magnesium Hydroxide Susp 30 ml UD PO SCH (08:47)
[2018-02-22] MEDS: Lidocaine 5% Patch TD SCH (08:47)
[2018-02-22] MEDS: Insulin Detemir 100 Units/ml Inj SC SCH (08:48)
--- NOTE | 2018-02-22 19:17 | CP.PCM.PN ---
Subjective - Date & Time of Evaluation Date of Evaluation: 02/22/18 Time of Evaluation: 13:00 - Subjective Subjective: Patient reports feeling well; again reporting some sob, no nausea/vomiting; Objective - Vital Signs/Intake and Output Vital Signs (last 24 hours): Temp Pulse Resp BP Pulse Ox 98.8 F 80 17 102/62 95 02/22/18 16:44 02/22/18 16:44 02/22/18 16:44 02/22/18 16:44 02/22/18 16:44 - Medications Medications: Current Medications Acetaminophen (Tylenol 325mg Tab) 650 mg PO Q6 PRN PRN Reason: Pain, Mild (1-3) Last Admin: 02/18/18 09:00 Dose: 650 mg Acetaminophen (Tylenol 325mg Tab) 325 mg PO BID [facility] Last Admin: 02/22/18 17:31 Dose: Not Given Ascorbic Acid (Vitamin C 500 Mg Tab) 500 mg PO DAILY [facility] Last Admin: 02/22/18 08:42 Dose: 500 mg Aspirin (Ecotrin) 81 mg PO DAILY [facility] Last Admin: 02/22/18 08:42 Dose: 81 mg Atorvastatin Calcium (Lipitor) 40 mg PO HS [facility] Last Admin: 02/21/18 22:31 Dose: 40 mg Benzocaine/Menthol (Cepacol Sore Throat) 1 grazyna PO Q2 PRN PRN Reason: Sore Throat Last Admin: 01/27/18 11:03 Dose: 1 grazyna Bethanechol Chloride (Urecholine) 25 mg PO TID [facility] Last Admin: 02/22/18 17:31 Dose: 25 mg Carvedilol (Coreg) 6.25 mg PO Q12 [facility] Last Admin: 02/22/18 09:03 Dose: 6.25 mg Cephalexin Monohydrate (Keflex) 500 mg PO BID [facility] PRN Reason: Protocol Stop: 02/25/18 23:55 Last Admin: 02/22/18 17:29 Dose: 500 mg Clopidogrel Bisulfate (Plavix) 75 mg PO DAILY [facility] Last Admin: 02/09/18 08:48 Dose: 75 mg Dextrose (Dextrose 50% Inj) 0 ml IV STAT PRN; Protocol PRN Reason: Hypoglycemia Protocol Last Admin: 02/12/18 05:34 Dose: 50 ml Dextrose (Glutose 15) 0 gm PO ONCE PRN; Protocol PRN Reason: Hypoglycemia Protocol Dextrose (Dextrose 50% Inj) 0 ml IV STAT PRN; Protocol PRN Reason: Hypoglycemia Protocol Dextrose (Glutose 15) 0 gm PO ONCE PRN; Protocol PRN Reason: Hypoglycemia Protocol Escitalopram Oxalate (Lexapro) 5 mg PO DAILY [facility] Last Admin: 02/22/18 17:30 Dose: 5 mg Gabapentin (Neurontin) 100 mg PO BID [facility] Last Admin: 02/22/18 17:30 Dose: 100 mg Glucagon (Glucagen Diagnostic Kit) 0 mg IM STAT PRN; Protocol PRN Reason: Hypoglycemia Protocol Glucagon (Glucagen Diagnostic Kit) 0 mg IM STAT PRN; Protocol PRN Reason: Hypoglycemia Protocol Glycerin (Glycerin Adult Suppository) 1 sup HI ONCE PRN PRN Reason: Constipation Ceftriaxone Sodium 1 gm/ (Sodium Chloride) 100 mls @ 100 mls/hr IVPB DAILY [facility] PRN Reason: Protocol Last Admin: 02/18/18 21:13 Dose: 100 mls/hr Insulin Detemir (Levemir) 5 units SC DAILY [facility] Last Admin: 02/22/18 08:48 Dose: 5 unit Insulin Human Regular (Humulin R) 0 units SC ACHS [facility] PRN Reason: Protocol Last Admin: 02/22/18 17:29 Dose: 2 units Lactic Acid (Lac-Hydrin 12% Lotion (225 G)) 1 applic TOP TID PRN PRN Reason: Itching / Pruritus Lactulose (Enulose) 10 gm PO DAILY [facility] Lidocaine (Lidoderm) 3 ea TD DAILY [facility] Last Admin: 02/22/18 08:47 Dose: Not Given Losartan Potassium (Cozaar) 25 mg PO DAILY [facility] Last Admin: 02/22/18 08:42 Dose: 25 mg Mirtazapine (Remeron) 30 mg PO HS [facility] Last Admin: 02/21/18 22:32 Dose: 30 mg Morphine Sulfate (Morphine Immediate Release Tab) 15 mg PO Q4 PRN PRN Reason: Pain, moderate (4-7) Last Admin: 02/21/18 22:42 Dose: 15 mg Nystatin (Nystop Topical Powder) 1 applic TOP TID [facility] Last Admin: 02/22/18 17:30 Dose: 1 applic Senna/Docusate Sodium (Senokot S 50 Mg-8.6 Mg) 2 tab PO [facility] Last Admin: 02/21/18 22:35 Dose: Not Given Tamsulosin HCl (Flomax) 0.4 mg PO DAILY [facility] Last Admin: 02/22/18 08:43 Dose: 0.4 mg Zinc Sulfate (Zinc Sulfate 220 Mg Cap) 220 mg PO DAILY [facility] Last Admin: 02/22/18 08:43 Dose: 220 mg - Labs Labs: 02/21/18 04:20 02/21/18 04:20 PT 11.9 Seconds (9.8-13.1) 01/24/18 04:20 INR 1.1 (0.9-1.2) 01/24/18 04:20 APTT 46.2 Seconds (25.6-37.1) H D 01/24/18 04:20 - Constitutional Appears: Non-toxic, No Acute Distress - Eye Exam Eye Exam: absent: Scleral icterus - ENT Exam ENT Exam: Mucous Membranes Moist - Respiratory Exam Respiratory Exam: Clear to Ausculation Bilateral. absent: Respiratory Distress - Cardiovascular Exam Cardiovascular Exam: RRR, +S1, +S2 - GI/Abdominal Exam GI & Abdominal Exam: Soft. absent: Distended, Tenderness - Exam Exam: absent: Bladder Distension - Extremities Exam Additional comments: no leg edema; - Neurological Exam Neurological Exam: Alert, Awake - Psychiatric Exam Psychiatric exam: Normal Affect, Normal Mood. absent: Agitated - Skin Skin Exam: Warm. absent: Cyanosis Assessment and Plan (1) Acute kidney injury Assessment & Plan: NAI on CKD IIIA, resolving; serum creatinine stable after CTA; stable electrolyte and volume status; continue to avoid nephrotioxic agents; Status: Acute (2) CKD (chronic kidney disease), stage III Status: Chronic (3) Systolic CHF, chronic Assessment & Plan: Euvolemic on exam; continue to optimize with B-blockers and ARB; should titrate upward as tolerated; Status: Chronic (4) Anemia Assessment & Plan: Hgb dropping; will repeat iron studies and start EPO; check stool for occult blood; Status: Chronic (5) PVD (peripheral vascular disease) Status: Chronic (6) Urinary retention Assessment & Plan: With UTI, on keflex; should give voiding trial once abx course completed; Status: Acute
[2018-02-22 19:26] LABS: BASO # 0.1 K/uL (0.0-0.2); BASO % 0.7 % (0.0-2.0); EOS # 0.3 K/uL (0.0-0.7); EOS % 2.7 % (0.0-4.0); LYMPH # 1.9 K/uL (1.0-4.3); MEAN CELL VOLUME 86.6 fl (81.0-99.0); MEAN CORPUSCULAR HGB CONC 32.4 g/dL (33.0-37.0); MEAN PLATELET VOLUME 9.2 fl (7.2-11.7); MONO # 1.2 K/uL (0.0-0.8); MONO % 9.9 % (0.0-10.0); NEUT # 8.3 K/uL (1.8-7.0); NEUT % 70.7 % (50.0-75.0); RBC 2.85 Mil/uL (3.80-5.20); RED CELL DISTRIBUTION WIDTH 13.4 % (11.5-14.5); WHITE BLOOD COUNT 11.7 K/uL (4.8-10.8)
[2018-02-22 19:51] LABS: ALB/GLOB RATIO 0.8 (1.0-2.1); ALBUMIN 2.7 g/dL (3.5-5.0); CALCIUM 8.4 mg/dL (8.4-10.2)
[2018-02-22] MEDS: Morphine 15 mg Immediate Release Tab PO PRN (21:50)
[2018-02-22] MEDS: Docusate-Senna 50 mg-8.6 mg Tab PO SCH (21:56)
[2018-02-23] MEDS: Morphine 15 mg Immediate Release Tab PO PRN (02:56)
[2018-02-23] MEDS: Insulin Regular 100 units/ml SC SCH ×4 (06:48→21:15)
[2018-02-23 06:59] LABS: BASO # 0.1 K/uL (0.0-0.2); BASO % 1.2 % (0.0-2.0); EOS # 0.3 K/uL (0.0-0.7); EOS % 2.7 % (0.0-4.0); HEMOGLOBIN 8.5 g/dL (12.0-16.0); LYMPH # 2.3 K/uL (1.0-4.3); LYMPH % 22.8 % (20.0-40.0); MEAN CELL VOLUME 86.1 fl (81.0-99.0); MEAN CORPUSCULAR HEMOGLOBIN 29.4 pg (27.0-31.0); MEAN CORPUSCULAR HGB CONC 34.2 g/dL (33.0-37.0); MEAN PLATELET VOLUME 9.3 fl (7.2-11.7); MONO # 1.1 K/uL (0.0-0.8); MONO % 11.1 % (0.0-10.0); NEUT # 6.3 K/uL (1.8-7.0); NEUT % 62.2 % (50.0-75.0); NRBC % 0.1 % (0.0-0.0); RBC 2.88 Mil/uL (3.80-5.20); RED CELL DISTRIBUTION WIDTH 13.4 % (11.5-14.5); WHITE BLOOD COUNT 10.1 K/uL (4.8-10.8)
[2018-02-23 07:50] LABS: ALB/GLOB RATIO 0.8 (1.0-2.1); ALBUMIN 2.7 g/dL (3.5-5.0); CALCIUM 8.6 mg/dL (8.4-10.2)
[2018-02-23 08:19] LABS: IRON 29 ug/dL (37-170)
[2018-02-23 08:29] LABS: % IRON SATURATION 13 % (20-55); TOTAL IRON BINDING CAPACITY 218 ug/dL (250-450)
--- NOTE | 2018-02-23 08:54 | CP.PCM.PN ---
Subjective - Date & Time of Evaluation Date of Evaluation: 02/23/18 Time of Evaluation: 08:24 - Subjective Subjective: 67 y/o F evaluated and examined by bedside. Pt c/o L limb pain aggravated since yesterday, did not let her sleep, 9/10 intensity. Dawna were removed yesterday , pt tolerated well procedure. Pt afebrile, tolerating PO, eating better than a few days ago. Pt had a bowl movement yesterday. Pt being assisted by PT/OT team to move from bed to chair. Pt denies chest pain, SOB, calf tenderness, nausea, vomiting, abdominal pain. Objective - Vital Signs/Intake and Output Vital Signs (last 24 hours): Temp Pulse Resp BP Pulse Ox 98.4 F 80 18 128/67 97 02/23/18 08:04 02/23/18 08:04 02/23/18 08:04 02/23/18 08:04 02/23/18 08:04 Intake and Output: 02/23/18 02/23/18 06:59 18:59 Intake Total 400 Output Total 1000 Balance -600 - Medications Medications: Current Medications Acetaminophen (Tylenol 325mg Tab) 650 mg PO Q6 PRN PRN Reason: Pain, Mild (1-3) Last Admin: 02/18/18 09:00 Dose: 650 mg Acetaminophen (Tylenol 325mg Tab) 325 mg PO BID [facility] Last Admin: 02/22/18 17:31 Dose: Not Given Ascorbic Acid (Vitamin C 500 Mg Tab) 500 mg PO DAILY [facility] Last Admin: 02/22/18 08:42 Dose: 500 mg Aspirin (Ecotrin) 81 mg PO DAILY [facility] Last Admin: 02/22/18 08:42 Dose: 81 mg Atorvastatin Calcium (Lipitor) 40 mg PO HS [facility] Last Admin: 02/22/18 21:50 Dose: 40 mg Benzocaine/Menthol (Cepacol Sore Throat) 1 grazyna PO Q2 PRN PRN Reason: Sore Throat Last Admin: 01/27/18 11:03 Dose: 1 grazyna Bethanechol Chloride (Urecholine) 25 mg PO TID [facility] Last Admin: 02/22/18 17:31 Dose: 25 mg Carvedilol (Coreg) 6.25 mg PO Q12 [facility] Last Admin: 02/22/18 21:50 Dose: 6.25 mg Cephalexin Monohydrate (Keflex) 500 mg PO BID [facility] PRN Reason: Protocol Stop: 02/25/18 23:55 Last Admin: 02/22/18 17:29 Dose: 500 mg Clopidogrel Bisulfate (Plavix) 75 mg PO DAILY [facility] Last Admin: 02/09/18 08:48 Dose: 75 mg Dextrose (Dextrose 50% Inj) 0 ml IV STAT PRN; Protocol PRN Reason: Hypoglycemia Protocol Last Admin: 02/12/18 05:34 Dose: 50 ml Dextrose (Glutose 15) 0 gm PO ONCE PRN; Protocol PRN Reason: Hypoglycemia Protocol Dextrose (Dextrose 50% Inj) 0 ml IV STAT PRN; Protocol PRN Reason: Hypoglycemia Protocol Dextrose (Glutose 15) 0 gm PO ONCE PRN; Protocol PRN Reason: Hypoglycemia Protocol Epoetin [place] (Procrit) 10,000 unit SC [facility] Escitalopram Oxalate (Lexapro) 5 mg PO DAILY [facility] Last Admin: 02/22/18 17:30 Dose: 5 mg Gabapentin (Neurontin) 100 mg PO BID [facility] Last Admin: 02/22/18 17:30 Dose: 100 mg Glucagon (Glucagen Diagnostic Kit) 0 mg IM STAT PRN; Protocol PRN Reason: Hypoglycemia Protocol Glucagon (Glucagen Diagnostic Kit) 0 mg IM STAT PRN; Protocol PRN Reason: Hypoglycemia Protocol Glycerin (Glycerin Adult Suppository) 1 sup MD ONCE PRN PRN Reason: Constipation Ceftriaxone Sodium 1 gm/ (Sodium Chloride) 100 mls @ 100 mls/hr IVPB DAILY [facility] PRN Reason: Protocol Last Admin: 02/18/18 21:13 Dose: 100 mls/hr Insulin Detemir (Levemir) 5 units SC DAILY [facility] Last Admin: 02/22/18 08:48 Dose: 5 unit Insulin Human Regular (Humulin R) 0 units SC ACHS [facility] PRN Reason: Protocol Last Admin: 02/23/18 06:48 Dose: Not Given Lactic Acid (Lac-Hydrin 12% Lotion (225 G)) 1 applic TOP TID PRN PRN Reason: Itching / Pruritus Lactulose (Enulose) 10 gm PO DAILY [facility] Lidocaine (Lidoderm) 3 ea TD DAILY [facility] Last Admin: 02/22/18 08:47 Dose: Not Given Losartan Potassium (Cozaar) 25 mg PO DAILY [facility] Last Admin: 02/22/18 08:42 Dose: 25 mg Mirtazapine (Remeron) 30 mg PO HS [facility] Last Admin: 02/22/18 21:53 Dose: 30 mg Morphine Sulfate (Morphine Immediate Release Tab) 15 mg PO Q4 PRN PRN Reason: Pain, moderate (4-7) Last Admin: 02/23/18 02:56 Dose: 15 mg Nystatin (Nystop Topical Powder) 1 applic TOP TID [facility] Last Admin: 02/22/18 17:30 Dose: 1 applic Senna/Docusate Sodium (Senokot S 50 Mg-8.6 Mg) 2 tab PO [facility] Last Admin: 02/22/18 21:56 Dose: Not Given Tamsulosin HCl (Flomax) 0.4 mg PO DAILY [facility] Last Admin: 02/22/18 08:43 Dose: 0.4 mg Zinc Sulfate (Zinc Sulfate 220 Mg Cap) 220 mg PO DAILY [facility] Last Admin: 02/22/18 08:43 Dose: 220 mg - Labs Labs: 02/23/18 06:40 02/23/18 06:40 PT 11.9 Seconds (9.8-13.1) 01/24/18 04:20 INR 1.1 (0.9-1.2) 01/24/18 04:20 APTT 46.2 Seconds (25.6-37.1) H D 01/24/18 04:20 - Constitutional Appears: Well, No Acute Distress - Head Exam Head Exam: ATRAUMATIC - Eye Exam Eye Exam: EOMI - Neck Exam Neck Exam: Full ROM - Respiratory Exam Respiratory Exam: Clear to Ausculation Bilateral, NORMAL BREATHING PATTERN. absent: Wheezes - Cardiovascular Exam Cardiovascular Exam: REGULAR RHYTHM, +S1, +S2 - GI/Abdominal Exam GI & Abdominal Exam: Soft, Normal Bowel Sounds. absent: Tenderness - Extremities Exam Extremities Exam: Calf Tenderness, Full ROM. absent: Joint Swelling - Neurological Exam Neurological Exam: Alert, Awake, Oriented x3 Assessment and Plan - Assessment and Plan (Free Text) Assessment: 67 y.o. 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 Palacios: recommendations appreciated -continue to monitor -Before discharge, discuss with family about zelaya's catheter care and monthly zelaya's replacement. Urinary retention: -zelaya day 6 -C/w Flomax -Urology: Dr. 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 Andujar on board: continue with medical management; -CTA on 02/21: moderate to severe stenosis R cavernous ICA. See full report. -F/U further discussion about possible neuro-intervention BKA -01/24/2018 -Dawna removed yesterday 02/22. -Pain management: gabapentin 100 mg BID, gabapentin 300 mg HS and Morphine 15mg PO BID, to help with phantom limb pain DTI -Ulcer of sacrum; improving -Wound care nursing: with meta honey; zinc and vitamin C -zelaya in place Depression -Lexapro 5mg daily CKD: -Nephro: Dr. Schultz, recommendations: ordered iron studies and FOBT. -Procrit ordered -BUN/Cr: 28/1.3 on 02/21, yesterday DM -on Levemir: d/c QHS 2/2 am hypoglycemia -accuchecks -ISS HTN -On Losartan 25mg PO daily DVT prophylaxis -SCDs -ambulation with PT assistance.
--- NOTE | 2018-02-23 09:42 | CP.PCM.PN ---
Subjective - Date & Time of Evaluation Date of Evaluation: 02/23/18 Time of Evaluation: 09:41 - Subjective Subjective: Ms. Carias was seen and examined at the bedside. She is alert, oriented, speaks mainly Bulgarian. She denies any headache, dizziness, lightheadedness.She is able to raise affected leg, follow simple commands. She has a very minimal right arm drift. She verbalize her concern with food after hospitalization due to her , currently unemployed. She is able to feed herself independently , but with poor intake. Her creatinine level is slowly trending down, at present it is 1.2 after CTA. 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 Hypoplastic but patent right A1 SHERINE. Widely patent left ICA and common arteries. Hypoplastic right PUBLISHING SPECIALIST, unremarkable left PUBLISHING SPECIALIST. Widely patent bilateral common arteries. Hypoplastic right verterbral artery favored over dissection.There was no untoward events overnight. Objective - Vital Signs/Intake and Output Vital Signs (last 24 hours): Temp Pulse Resp BP Pulse Ox 98.4 F 80 18 128/67 97 02/23/18 08:04 02/23/18 08:04 02/23/18 08:04 02/23/18 08:04 02/23/18 08:04 Intake and Output: 02/23/18 02/23/18 06:59 18:59 Intake Total 400 Output Total 1000 Balance -600 - Medications Medications: Current Medications Acetaminophen (Tylenol 325mg Tab) 650 mg PO Q6 PRN PRN Reason: Pain, Mild (1-3) Last Admin: 02/18/18 09:00 Dose: 650 mg Acetaminophen (Tylenol 325mg Tab) 325 mg PO BID [facility] Last Admin: 02/22/18 17:31 Dose: Not Given Ascorbic Acid (Vitamin C 500 Mg Tab) 500 mg PO DAILY [facility] Last Admin: 02/22/18 08:42 Dose: 500 mg Aspirin (Ecotrin) 81 mg PO DAILY [facility] Last Admin: 02/22/18 08:42 Dose: 81 mg Atorvastatin Calcium (Lipitor) 40 mg PO HS [facility] Last Admin: 02/22/18 21:50 Dose: 40 mg Benzocaine/Menthol (Cepacol Sore Throat) 1 grazyna PO Q2 PRN PRN Reason: Sore Throat Last Admin: 01/27/18 11:03 Dose: 1 grazyna Bethanechol Chloride (Urecholine) 25 mg PO TID [facility] Last Admin: 02/22/18 17:31 Dose: 25 mg Carvedilol (Coreg) 6.25 mg PO Q12 [facility] Last Admin: 02/22/18 21:50 Dose: 6.25 mg Cephalexin Monohydrate (Keflex) 500 mg PO BID [facility] PRN Reason: Protocol Stop: 02/25/18 23:55 Last Admin: 02/22/18 17:29 Dose: 500 mg Clopidogrel Bisulfate (Plavix) 75 mg PO DAILY [facility] Last Admin: 02/09/18 08:48 Dose: 75 mg Dextrose (Dextrose 50% Inj) 0 ml IV STAT PRN; Protocol PRN Reason: Hypoglycemia Protocol Last Admin: 02/12/18 05:34 Dose: 50 ml Dextrose (Glutose 15) 0 gm PO ONCE PRN; Protocol PRN Reason: Hypoglycemia Protocol Dextrose (Dextrose 50% Inj) 0 ml IV STAT PRN; Protocol PRN Reason: Hypoglycemia Protocol Dextrose (Glutose 15) 0 gm PO ONCE PRN; Protocol PRN Reason: Hypoglycemia Protocol Epoetin Orville (Procrit) 10,000 unit SC F [facility] Escitalopram Oxalate (Lexapro) 5 mg PO DAILY [facility] Last Admin: 02/22/18 17:30 Dose: 5 mg Gabapentin (Neurontin) 100 mg PO BID [facility] Last Admin: 02/22/18 17:30 Dose: 100 mg Glucagon (Glucagen Diagnostic Kit) 0 mg IM STAT PRN; Protocol PRN Reason: Hypoglycemia Protocol Glucagon (Glucagen Diagnostic Kit) 0 mg IM STAT PRN; Protocol PRN Reason: Hypoglycemia Protocol Glycerin (Glycerin Adult Suppository) 1 sup [place] ONCE PRN PRN Reason: Constipation Ceftriaxone Sodium 1 gm/ (Sodium Chloride) 100 mls @ 100 mls/hr IVPB DAILY [facility] PRN Reason: Protocol Last Admin: 02/18/18 21:13 Dose: 100 mls/hr Insulin Detemir (Levemir) 5 units SC DAILY [facility] Last Admin: 02/22/18 08:48 Dose: 5 unit Insulin Human Regular (Humulin R) 0 units SC ACHS [facility] PRN Reason: Protocol Last Admin: 02/23/18 06:48 Dose: Not Given Lactic Acid (Lac-Hydrin 12% Lotion (225 G)) 1 applic TOP TID PRN PRN Reason: Itching / Pruritus Lactulose (Enulose) 10 gm PO DAILY [facility] Lidocaine (Lidoderm) 3 ea TD DAILY [facility] Last Admin: 02/22/18 08:47 Dose: Not Given Losartan Potassium (Cozaar) 25 mg PO DAILY [facility] Last Admin: 02/22/18 08:42 Dose: 25 mg Mirtazapine (Remeron) 30 mg PO HS [facility] Last Admin: 02/22/18 21:53 Dose: 30 mg Morphine Sulfate (Morphine Immediate Release Tab) 15 mg PO Q4 PRN PRN Reason: Pain, moderate (4-7) Last Admin: 02/23/18 02:56 Dose: 15 mg Nystatin (Nystop Topical Powder) 1 applic TOP TID [facility] Last Admin: 02/22/18 17:30 Dose: 1 applic Senna/Docusate Sodium (Senokot S 50 Mg-8.6 Mg) 2 tab PO HS [facility] Last Admin: 02/22/18 21:56 Dose: Not Given Tamsulosin HCl (Flomax) 0.4 mg PO DAILY [facility] Last Admin: 02/22/18 08:43 Dose: 0.4 mg Zinc Sulfate (Zinc Sulfate 220 Mg Cap) 220 mg PO DAILY [facility] Last Admin: 02/22/18 08:43 Dose: 220 mg - Labs Labs: 02/23/18 06:40 02/23/18 06:40 PT 11.9 Seconds (9.8-13.1) 01/24/18 04:20 INR 1.1 (0.9-1.2) 01/24/18 04:20 APTT 46.2 Seconds (25.6-37.1) H D 01/24/18 04:20 - Constitutional Appears: No Acute Distress - Head Exam Head Exam: NORMAL INSPECTION - Neurological Exam Neurological Exam: Alert, Awake, Oriented x3 Neuro motor strength exam: Left Upper Extremity: 5, Right Upper Extremity: 4, Left Lower Extremity: 2/1, Right Lower Extremity: 4 Additional comments: Neurological unchanged from previous examination. Assessment and Plan (1) CVA (cerebral vascular accident) Assessment & Plan: Case discussed with Dr. Phillips, continue all current medical, physical, and occupational therapies. CTA result relayed to neurointerventionalist, awaiting any recommendations. Status: Acute
[2018-02-23] MEDS: Lactulose 10 gm/15 ml Syrup PO SCH (12:23)
[2018-02-23] MEDS: Insulin Detemir 100 Units/ml Inj SC SCH (12:24)
[2018-02-23] MEDS: Lidocaine 5% Patch TD SCH (12:24)
[2018-02-23] MEDS: EPOETIN ALFA 10,000 UNIT/ML ML SC SCH (12:25)
[2018-02-23] MEDS: Morphine 15 mg SR Tab PO SCH ×2 (12:30→21:20)
[2018-02-23] MEDS: Docusate-Senna 50 mg-8.6 mg Tab PO SCH (21:15)
[2018-02-24 06:15] LABS: MEAN CELL VOLUME 86.3 fl (81.0-99.0); MEAN CORPUSCULAR HEMOGLOBIN 29.2 pg (27.0-31.0); MEAN CORPUSCULAR HGB CONC 33.8 g/dL (33.0-37.0); RBC 2.73 Mil/uL (3.80-5.20); RED CELL DISTRIBUTION WIDTH 13.7 % (11.5-14.5); WHITE BLOOD COUNT 9.9 K/uL (4.8-10.8)
[2018-02-24 06:30] LABS: ALB/GLOB RATIO 0.8 (1.0-2.1); ALBUMIN 2.5 g/dL (3.5-5.0); CALCIUM 8.8 mg/dL (8.4-10.2)
[2018-02-24] MEDS: Insulin Regular 100 units/ml SC SCH (06:31)
--- NOTE | 2018-02-24 06:57 | CP.PCM.PN ---
Subjective - Date & Time of Evaluation Date of Evaluation: 02/24/18 Time of Evaluation: 06:57 - Subjective Subjective: 67 y/o F evaluated and examined by bedside. Pt c/o of suprapubic pressure-like pain, 10/10 intensity, only when urinating. Zelaya is in place. Pt afebrile w/ NO acute event overnight. Pt tolerating PO, no nausea or vomiting. Pt reports L leg pain is still present but is now well-controlled with medications. Pt denies chills, chest pain, SOB, abdominal pain, calf pain. Objective - Vital Signs/Intake and Output Vital Signs (last 24 hours): Temp Pulse Resp BP Pulse Ox 98.2 F 70 18 102/62 95 02/24/18 05:04 02/24/18 05:04 02/24/18 05:04 02/24/18 05:04 02/24/18 05:04 - Medications Medications: Current Medications Acetaminophen (Tylenol 325mg Tab) 650 mg PO Q6 PRN PRN Reason: Pain, Mild (1-3) Last Admin: 02/18/18 09:00 Dose: 650 mg Acetaminophen (Tylenol 325mg Tab) 325 mg PO BID [facility] Last Admin: 02/23/18 12:29 Dose: 325 mg Ascorbic Acid (Vitamin C 500 Mg Tab) 500 mg PO DAILY [facility] Last Admin: 02/23/18 12:23 Dose: 500 mg Aspirin (Ecotrin) 81 mg PO DAILY [facility] Last Admin: 02/23/18 12:22 Dose: 81 mg Atorvastatin Calcium (Lipitor) 40 mg PO HS [facility] Last Admin: 02/23/18 21:14 Dose: 40 mg Benzocaine/Menthol (Cepacol Sore Throat) 1 grazyna PO Q2 PRN PRN Reason: Sore Throat Last Admin: 01/27/18 11:03 Dose: 1 grazyna Bethanechol Chloride (Urecholine) 25 mg PO TID [facility] Last Admin: 02/23/18 17:57 Dose: 25 mg Carvedilol (Coreg) 6.25 mg PO Q12 [facility] Last Admin: 02/23/18 21:14 Dose: 6.25 mg Cephalexin Monohydrate (Keflex) 500 mg PO BID [facility] PRN Reason: Protocol Stop: 02/25/18 23:55 Last Admin: 02/23/18 17:58 Dose: 500 mg Clopidogrel Bisulfate (Plavix) 75 mg PO DAILY [facility] Last Admin: 02/09/18 08:48 Dose: 75 mg Dextrose (Dextrose 50% Inj) 0 ml IV STAT PRN; Protocol PRN Reason: Hypoglycemia Protocol Last Admin: 02/12/18 05:34 Dose: 50 ml Dextrose (Glutose 15) 0 gm PO ONCE PRN; Protocol PRN Reason: Hypoglycemia Protocol Dextrose (Dextrose 50% Inj) 0 ml IV STAT PRN; Protocol PRN Reason: Hypoglycemia Protocol Dextrose (Glutose 15) 0 gm PO ONCE PRN; Protocol PRN Reason: Hypoglycemia Protocol Epoetin Orville (Procrit) 10,000 unit SC MWF [facility] Last Admin: 02/23/18 12:25 Dose: 10,000 unit Escitalopram Oxalate (Lexapro) 5 mg PO DAILY [facility] Last Admin: 02/23/18 12:21 Dose: 5 mg Gabapentin (Neurontin) 300 mg PO HS [facility] Last Admin: 02/23/18 21:22 Dose: 300 mg Gabapentin (Neurontin) 100 mg PO BID [facility] Last Admin: 02/23/18 17:55 Dose: 100 mg Glucagon (Glucagen Diagnostic Kit) 0 mg IM STAT PRN; Protocol PRN Reason: Hypoglycemia Protocol Glucagon (Glucagen Diagnostic Kit) 0 mg IM STAT PRN; Protocol PRN Reason: Hypoglycemia Protocol Glycerin (Glycerin Adult Suppository) 1 sup [place] ONCE PRN PRN Reason: Constipation Ceftriaxone Sodium 1 gm/ (Sodium Chloride) 100 mls @ 100 mls/hr IVPB DAILY [facility] PRN Reason: Protocol Last Admin: 02/18/18 21:13 Dose: 100 mls/hr Iron Sucrose 100 mg/ Sodium (Chloride) 105 mls @ 105 mls/hr IVPB DAILY [facility] Stop: 03/04/18 09:59 Last Admin: 02/23/18 17:57 Dose: 105 mls/hr Insulin Detemir (Levemir) 5 units SC DAILY [facility] Last Admin: 02/23/18 12:24 Dose: Not Given Insulin Human Regular (Humulin R) 0 units [place] ACHS [facility] PRN Reason: Protocol Last Admin: 02/24/18 06:31 Dose: Not Given Lactic Acid (Lac-Hydrin 12% Lotion (225 G)) 1 applic TOP TID PRN PRN Reason: Itching / Pruritus Lactulose (Enulose) 10 gm PO DAILY [facility] Last Admin: 02/23/18 12:23 Dose: Not Given Lidocaine (Lidoderm) 3 ea TD DAILY [facility] Last Admin: 02/23/18 12:24 Dose: Not Given Losartan Potassium (Cozaar) 25 mg PO DAILY [facility] Last Admin: 02/23/18 12:21 Dose: 25 mg Mirtazapine (Remeron) 30 mg PO HS [facility] Last Admin: 02/23/18 21:14 Dose: 30 mg Morphine Sulfate (Morphine Immediate Release Tab) 15 mg PO Q4 PRN PRN Reason: Pain, moderate (4-7) Last Admin: 02/23/18 02:56 Dose: 15 mg Morphine Sulfate (Morphine Extended Release Tab) 15 mg PO Q12 [facility] Last Admin: 02/23/18 21:20 Dose: 15 mg Nystatin (Nystop Topical Powder) 1 applic TOP TID [facility] Last Admin: 02/23/18 17:56 Dose: 1 applic Senna/Docusate Sodium (Senokot S 50 Mg-8.6 Mg) 2 tab PO HS [facility] Last Admin: 02/23/18 21:15 Dose: 2 tab Tamsulosin HCl (Flomax) 0.4 mg PO DAILY [facility] Last Admin: 02/23/18 12:24 Dose: 0.4 mg Zinc Sulfate (Zinc Sulfate 220 Mg Cap) 220 mg PO DAILY [facility] Last Admin: 02/23/18 12:21 Dose: 220 mg - Labs Labs: 02/24/18 05:00 02/24/18 05:00 PT 11.9 Seconds (9.8-13.1) 01/24/18 04:20 INR 1.1 (0.9-1.2) 01/24/18 04:20 APTT 46.2 Seconds (25.6-37.1) H D 01/24/18 04:20 - Constitutional Appears: No Acute Distress - Head Exam Head Exam: ATRAUMATIC, NORMAL INSPECTION - Eye Exam Eye Exam: EOMI - ENT Exam ENT Exam: Mucous Membranes Moist - Neck Exam Neck Exam: Full ROM - Respiratory Exam Respiratory Exam: Clear to Ausculation Bilateral, NORMAL BREATHING PATTERN - Cardiovascular Exam Cardiovascular Exam: +S1, +S2 - GI/Abdominal Exam GI & Abdominal Exam: Soft, Tenderness (Sprapubic.), Normal Bowel Sounds Additional comments: Bladder is hard upon palpation on abdomen. - Neurological Exam Neurological Exam: Alert, Awake, Oriented x3 Assessment and Plan - Assessment and Plan (Free Text) Assessment: 67 y.o. 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 Plan: UTI: -Ucx: E.Coli: on Keflex 500 mg PO BID -ID: Dr. Palacios: recommendations appreciated -continue to monitor -Before discharge, discuss with family about zelaya's catheter care and monthly zelaya's replacement. Urinary retention: -zelaya day 7 -C/w Flomax -Blader scan showed 720cc urine. -Will f/u Post-void bladder scan. -Urology: Dr. Snell, made aware today 02/24. Recommended to remove and replace Zelaya catheter. 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 Andujar on board: continue with medical management; -CTA on 02/21: moderate to severe stenosis R cavernous ICA. See full report. -As per Neuro, CTA of neck will be repeated in a few days. -F/U further discussion about possible neuro-intervention BKA -01/24/2018 -Dawna removed yesterday 02/22. -Pain management: gabapentin 100 mg BID, gabapentin 300 mg HS and Morphine 15mg PO BID, to help with phantom limb pain DTI -Ulcer of sacrum; improving -Wound care nursing: with meta honey; zinc and vitamin C -zelaya in place Depression -Lexapro 5mg daily CKD: -Nephro: Dr. Schultz, recommendations: ordered iron studies and FOBT. -Procrit ordered -BUN/Cr: 28/1.3 on 02/21, yesterday DM -on Levemir: d/c QHS 2/2 am hypoglycemia -accuchecks -ISS HTN -On Losartan 25mg PO daily Prophylaxis -SCDs -ambulation with PT assistance. -Spirometry
--- NOTE | 2018-02-24 08:46 | CP.PCM.PN ---
Subjective - Date & Time of Evaluation Date of Evaluation: 02/24/18 Time of Evaluation: 08:46 - Subjective Subjective: Ms. Carias was seen and examined at the bedside. She is alert, oriented, speaks mainly Upper Sorbian. She denies any headache, dizziness, lightheadedness.She is able to raise affected leg, follow simple commands. She has a very minimal right arm drift. She verbalize of pain in her bladder area and hurts when she tries to pee. She has a zelaya catheter in draining to a clear, yellow urine. Her pubic area, distended.She further claims of mild to moderate pain in her left BKA. Objective - Vital Signs/Intake and Output Vital Signs (last 24 hours): Temp Pulse Resp BP Pulse Ox 98.7 F 78 18 148/69 97 02/24/18 08:08 02/24/18 08:08 02/24/18 08:08 02/24/18 08:08 02/24/18 08:08 Intake and Output: 02/24/18 02/24/18 06:59 18:59 Intake Total 180 Output Total 250 Balance -70 - Medications Medications: Current Medications Acetaminophen (Tylenol 325mg Tab) 650 mg PO Q6 PRN PRN Reason: Pain, Mild (1-3) Last Admin: 02/18/18 09:00 Dose: 650 mg Acetaminophen (Tylenol 325mg Tab) 325 mg PO BID [facility] Last Admin: 02/23/18 12:29 Dose: 325 mg Ascorbic Acid (Vitamin C 500 Mg Tab) 500 mg PO DAILY [facility] Last Admin: 02/23/18 12:23 Dose: 500 mg Aspirin (Ecotrin) 81 mg PO DAILY [facility] Last Admin: 02/23/18 12:22 Dose: 81 mg Atorvastatin Calcium (Lipitor) 40 mg PO HS [facility] Last Admin: 02/23/18 21:14 Dose: 40 mg Benzocaine/Menthol (Cepacol Sore Throat) 1 grazyna PO Q2 PRN PRN Reason: Sore Throat Last Admin: 01/27/18 11:03 Dose: 1 grazyna Bethanechol Chloride (Urecholine) 25 mg PO TID [facility] Last Admin: 02/23/18 17:57 Dose: 25 mg Carvedilol (Coreg) 6.25 mg PO Q12 [facility] Last Admin: 02/23/18 21:14 Dose: 6.25 mg Cephalexin Monohydrate (Keflex) 500 mg PO BID [facility] PRN Reason: Protocol Stop: 02/25/18 23:55 Last Admin: 02/23/18 17:58 Dose: 500 mg Clopidogrel Bisulfate (Plavix) 75 mg PO DAILY [facility] Last Admin: 02/09/18 08:48 Dose: 75 mg Dextrose (Dextrose 50% Inj) 0 ml IV STAT PRN; Protocol PRN Reason: Hypoglycemia Protocol Last Admin: 02/12/18 05:34 Dose: 50 ml Dextrose (Glutose 15) 0 gm PO ONCE PRN; Protocol PRN Reason: Hypoglycemia Protocol Dextrose (Dextrose 50% Inj) 0 ml IV STAT PRN; Protocol PRN Reason: Hypoglycemia Protocol Dextrose (Glutose 15) 0 gm PO ONCE PRN; Protocol PRN Reason: Hypoglycemia Protocol Epoetin Orville (Procrit) 10,000 unit SC F [facility] Last Admin: 02/23/18 12:25 Dose: 10,000 unit Escitalopram Oxalate (Lexapro) 5 mg PO DAILY [facility] Last Admin: 02/23/18 12:21 Dose: 5 mg Gabapentin (Neurontin) 300 mg PO [facility] Last Admin: 02/23/18 21:22 Dose: 300 mg Gabapentin (Neurontin) 100 mg PO BID [facility] Last Admin: 02/23/18 17:55 Dose: 100 mg Glucagon (Glucagen Diagnostic Kit) 0 mg IM STAT PRN; Protocol PRN Reason: Hypoglycemia Protocol Glucagon (Glucagen Diagnostic Kit) 0 mg IM STAT PRN; Protocol PRN Reason: Hypoglycemia Protocol Glycerin (Glycerin Adult Suppository) 1 sup [place] ONCE PRN PRN Reason: Constipation Ceftriaxone Sodium 1 gm/ (Sodium Chloride) 100 mls @ 100 mls/hr IVPB DAILY [facility] PRN Reason: Protocol Last Admin: 02/18/18 21:13 Dose: 100 mls/hr Iron Sucrose 100 mg/ Sodium (Chloride) 105 mls @ 105 mls/hr IVPB DAILY [facility] Stop: 03/04/18 09:59 Last Admin: 02/23/18 17:57 Dose: 105 mls/hr Insulin Detemir (Levemir) 5 units SC DAILY [facility] Last Admin: 02/23/18 12:24 Dose: Not Given Insulin Human Regular (Humulin R) 0 units SC [facility] PRN Reason: Protocol Last Admin: 02/24/18 06:31 Dose: Not Given Lactic Acid (Lac-Hydrin 12% Lotion (225 G)) 1 applic TOP TID PRN PRN Reason: Itching / Pruritus Lactulose (Enulose) 10 gm PO DAILY [facility] Last Admin: 02/23/18 12:23 Dose: Not Given Lidocaine (Lidoderm) 3 ea TD DAILY [facility] Last Admin: 02/23/18 12:24 Dose: Not Given Losartan Potassium (Cozaar) 25 mg PO DAILY [facility] Last Admin: 02/23/18 12:21 Dose: 25 mg Mirtazapine (Remeron) 30 mg PO HS [facility] Last Admin: 02/23/18 21:14 Dose: 30 mg Morphine Sulfate (Morphine Immediate Release Tab) 15 mg PO Q4 PRN PRN Reason: Pain, moderate (4-7) Last Admin: 02/23/18 02:56 Dose: 15 mg Morphine Sulfate (Morphine Extended Release Tab) 15 mg PO Q12 [facility] Last Admin: 02/23/18 21:20 Dose: 15 mg Nystatin (Nystop Topical Powder) 1 applic TOP TID [facility] Last Admin: 02/23/18 17:56 Dose: 1 applic Senna/Docusate Sodium (Senokot S 50 Mg-8.6 Mg) 2 tab PO HS [facility] Last Admin: 02/23/18 21:15 Dose: 2 tab Tamsulosin HCl (Flomax) 0.4 mg PO DAILY [facility] Last Admin: 02/23/18 12:24 Dose: 0.4 mg Zinc Sulfate (Zinc Sulfate 220 Mg Cap) 220 mg PO DAILY [facility] Last Admin: 02/23/18 12:21 Dose: 220 mg - Labs Labs: 02/24/18 05:00 02/24/18 05:00 PT 11.9 Seconds (9.8-13.1) 01/24/18 04:20 INR 1.1 (0.9-1.2) 01/24/18 04:20 APTT 46.2 Seconds (25.6-37.1) H D 01/24/18 04:20 - Constitutional Appears: No Acute Distress - Head Exam Head Exam: NORMAL INSPECTION - Exam Exam: Bladder Distension - Neurological Exam Neurological Exam: Alert, Awake, Oriented x3 Neuro motor strength exam: Left Upper Extremity: 5, Right Upper Extremity: 5, Left Lower Extremity: 2/1, Right Lower Extremity: 4 Additional comments: Neurological unchanged from previous examination. Assessment and Plan (1) CVA (cerebral vascular accident) Assessment & Plan: Case discussed with Dr. Phillips, continue all current medical, physical, and occupational therapies. CTA result relayed to neurointerventionalist, awaiting any recommendations. Recommend to refer bladder distention to primary team. Status: Acute
[2018-02-24] MEDS: Insulin Detemir 100 Units/ml Inj SC SCH (09:00)
[2018-02-24] MEDS: Lactulose 10 gm/15 ml Syrup PO SCH (09:03)
[2018-02-24] MEDS: Morphine 15 mg SR Tab PO SCH ×2 (09:10→21:33)
[2018-02-24] MEDS: Lidocaine 5% Patch TD SCH (16:16)
--- NOTE | 2018-02-24 18:52 | CP.PCM.PN ---
Objective - Vital Signs/Intake and Output Vital Signs (last 24 hours): Temp Pulse Resp BP Pulse Ox 98.5 F 72 17 99/58 L 97 02/24/18 15:55 02/24/18 15:55 02/24/18 15:55 02/24/18 15:55 02/24/18 15:55 Intake and Output: 02/24/18 02/24/18 06:59 18:59 Intake Total 280 Output Total 1150 Balance -870 - Medications Medications: Current Medications Acetaminophen (Tylenol 325mg Tab) 650 mg PO Q6 PRN PRN Reason: Pain, Mild (1-3) Last Admin: 02/18/18 09:00 Dose: 650 mg Acetaminophen (Tylenol 325mg Tab) 325 mg PO BID [facility] Last Admin: 02/24/18 09:14 Dose: 325 mg Ascorbic Acid (Vitamin C 500 Mg Tab) 500 mg PO DAILY [facility] Last Admin: 02/24/18 09:07 Dose: 500 mg Aspirin (Ecotrin) 81 mg PO DAILY [facility] Last Admin: 02/24/18 09:03 Dose: 81 mg Atorvastatin Calcium (Lipitor) 40 mg PO HS [facility] Last Admin: 02/23/18 21:14 Dose: 40 mg Benzocaine/Menthol (Cepacol Sore Throat) 1 grazyna PO Q2 PRN PRN Reason: Sore Throat Last Admin: 01/27/18 11:03 Dose: 1 grazyna Bethanechol Chloride (Urecholine) 25 mg PO TID [facility] Last Admin: 02/24/18 16:19 Dose: 25 mg Carvedilol (Coreg) 6.25 mg PO Q12 [facility] Last Admin: 02/24/18 09:02 Dose: 6.25 mg Cephalexin Monohydrate (Keflex) 500 mg PO BID [facility] PRN Reason: Protocol Stop: 02/25/18 23:55 Last Admin: 02/24/18 16:16 Dose: 500 mg Clopidogrel Bisulfate (Plavix) 75 mg PO DAILY [facility] Last Admin: 02/09/18 08:48 Dose: 75 mg Dextrose (Dextrose 50% Inj) 0 ml IV STAT PRN; Protocol PRN Reason: Hypoglycemia Protocol Last Admin: 02/12/18 05:34 Dose: 50 ml Dextrose (Glutose 15) 0 gm PO ONCE PRN; Protocol PRN Reason: Hypoglycemia Protocol Dextrose (Dextrose 50% Inj) 0 ml IV STAT PRN; Protocol PRN Reason: Hypoglycemia Protocol Dextrose (Glutose 15) 0 gm PO ONCE PRN; Protocol PRN Reason: Hypoglycemia Protocol Epoetin Orville (Procrit) 10,000 unit SC MWF [facility] Last Admin: 02/23/18 12:25 Dose: 10,000 unit Escitalopram Oxalate (Lexapro) 5 mg PO DAILY [facility] Last Admin: 02/24/18 09:05 Dose: 5 mg Gabapentin (Neurontin) 300 mg PO HS [facility] Last Admin: 02/23/18 21:22 Dose: 300 mg Gabapentin (Neurontin) 100 mg PO BID [facility] Last Admin: 02/24/18 16:17 Dose: 100 mg Glucagon (Glucagen Diagnostic Kit) 0 mg IM STAT PRN; Protocol PRN Reason: Hypoglycemia Protocol Glucagon (Glucagen Diagnostic Kit) 0 mg IM STAT PRN; Protocol PRN Reason: Hypoglycemia Protocol Glycerin (Glycerin Adult Suppository) 1 sup [place] ONCE PRN PRN Reason: Constipation Iron Sucrose 100 mg/ Sodium (Chloride) 105 mls @ 105 mls/hr IVPB DAILY [facility] Stop: 03/04/18 09:59 Last Admin: 02/24/18 16:14 Dose: 105 mls/hr Insulin Detemir (Levemir) 5 units SC DAILY [facility] Last Admin: 02/24/18 09:00 Dose: 5 unit Lactic Acid (Lac-Hydrin 12% Lotion (225 G)) 1 applic TOP TID PRN PRN Reason: Itching / Pruritus Lactulose (Enulose) 10 gm PO DAILY [facility] Last Admin: 02/24/18 09:03 Dose: 10 gm Lidocaine (Lidoderm) 3 ea TD DAILY [facility] Last Admin: 02/24/18 16:16 Dose: Not Given Losartan Potassium (Cozaar) 25 mg PO DAILY [facility] Last Admin: 02/24/18 09:03 Dose: 25 mg Mirtazapine (Remeron) 30 mg PO HS [facility] Last Admin: 02/23/18 21:14 Dose: 30 mg Morphine Sulfate (Morphine Extended Release Tab) 15 mg PO Q12 [facility] Last Admin: 02/24/18 09:10 Dose: 15 mg Nystatin (Nystop Topical Powder) 1 applic TOP TID [facility] Last Admin: 02/24/18 16:18 Dose: 1 applic Senna/Docusate Sodium (Senokot S 50 Mg-8.6 Mg) 2 tab PO HS [facility] Last Admin: 02/23/18 21:15 Dose: 2 tab Tamsulosin HCl (Flomax) 0.4 mg PO DAILY [facility] Last Admin: 02/24/18 09:04 Dose: 0.4 mg Zinc Sulfate (Zinc Sulfate 220 Mg Cap) 220 mg PO DAILY [facility] Last Admin: 02/24/18 09:07 Dose: 220 mg - Labs Labs: 02/24/18 05:00 02/24/18 05:00 PT 11.9 Seconds (9.8-13.1) 01/24/18 04:20 INR 1.1 (0.9-1.2) 01/24/18 04:20 APTT 46.2 Seconds (25.6-37.1) H D 01/24/18 04:20 Assessment and Plan (1) Acute kidney injury Status: Acute (2) CKD (chronic kidney disease), stage III Status: Chronic (3) Systolic CHF, chronic Status: Chronic (4) Anemia Status: Chronic (5) PVD (peripheral vascular disease) Status: Chronic (6) Urinary retention Status: Acute
[2018-02-24 19:05] LABS: SQUAMOUS EPITHIAL < 1 /hpf (0-5); URINE AMORPHOUS SEDIMENT OCC /ul (<OCC); URINE BACTERIA OCC (<OCC); URINE BILIRUBIN NEGATIVE (NEGATIVE); URINE BLOOD SMALL (NEGATIVE); URINE CLARITY CLOUDY (Clear); URINE COLOR YELLOW (YELLOW); URINE GLUCOSE (UA) 50 mg/dL (Normal); URINE LEUKOCYTE ESTERASE LARGE Leu/uL (Negative); URINE PROTEIN 30 mg/dL (NEGATIVE); URINE UROBILINOGEN 0.2-1.0 mg/dL (0.2-1.0); WBC CLUMPS MOD /hpf
--- NOTE | 2018-02-24 19:15 | CP.PCM.PN ---
Subjective - Date & Time of Evaluation Date of Evaluation: 02/24/18 Time of Evaluation: 13:00 - Subjective Subjective: Patient with bladder scan showing 700 cc urine despite being with zelaya, zelaya therefore replaced; otherwise is tolerating diet; Objective - Vital Signs/Intake and Output Vital Signs (last 24 hours): Temp Pulse Resp BP Pulse Ox 98.5 F 72 17 99/58 L 97 02/24/18 15:55 02/24/18 15:55 02/24/18 15:55 02/24/18 15:55 02/24/18 15:55 Intake and Output: 02/24/18 02/25/18 18:59 06:59 Intake Total 280 Output Total 1150 Balance -870 - Medications Medications: Current Medications Acetaminophen (Tylenol 325mg Tab) 650 mg PO Q6 PRN PRN Reason: Pain, Mild (1-3) Last Admin: 02/18/18 09:00 Dose: 650 mg Acetaminophen (Tylenol 325mg Tab) 325 mg PO BID [facility] Last Admin: 02/24/18 09:14 Dose: 325 mg Ascorbic Acid (Vitamin C 500 Mg Tab) 500 mg PO DAILY [facility] Last Admin: 02/24/18 09:07 Dose: 500 mg Aspirin (Ecotrin) 81 mg PO DAILY [facility] Last Admin: 02/24/18 09:03 Dose: 81 mg Atorvastatin Calcium (Lipitor) 40 mg PO HS [facility] Last Admin: 02/23/18 21:14 Dose: 40 mg Benzocaine/Menthol (Cepacol Sore Throat) 1 grazyna PO Q2 PRN PRN Reason: Sore Throat Last Admin: 01/27/18 11:03 Dose: 1 grazyna Bethanechol Chloride (Urecholine) 25 mg PO TID [facility] Last Admin: 02/24/18 16:19 Dose: 25 mg Carvedilol (Coreg) 6.25 mg PO Q12 [facility] Last Admin: 02/24/18 09:02 Dose: 6.25 mg Cephalexin Monohydrate (Keflex) 500 mg PO BID [facility] PRN Reason: Protocol Stop: 02/25/18 23:55 Last Admin: 02/24/18 16:16 Dose: 500 mg Clopidogrel Bisulfate (Plavix) 75 mg PO DAILY [facility] Last Admin: 02/09/18 08:48 Dose: 75 mg Dextrose (Dextrose 50% Inj) 0 ml IV STAT PRN; Protocol PRN Reason: Hypoglycemia Protocol Last Admin: 02/12/18 05:34 Dose: 50 ml Dextrose (Glutose 15) 0 gm PO ONCE PRN; Protocol PRN Reason: Hypoglycemia Protocol Dextrose (Dextrose 50% Inj) 0 ml IV STAT PRN; Protocol PRN Reason: Hypoglycemia Protocol Dextrose (Glutose 15) 0 gm PO ONCE PRN; Protocol PRN Reason: Hypoglycemia Protocol Epoetin Orville (Procrit) 10,000 unit SC MWF [facility] Last Admin: 02/23/18 12:25 Dose: 10,000 unit Escitalopram Oxalate (Lexapro) 5 mg PO DAILY [facility] Last Admin: 02/24/18 09:05 Dose: 5 mg Gabapentin (Neurontin) 300 mg PO HS [facility] Last Admin: 02/23/18 21:22 Dose: 300 mg Gabapentin (Neurontin) 100 mg PO BID [facility] Last Admin: 02/24/18 16:17 Dose: 100 mg Glucagon (Glucagen Diagnostic Kit) 0 mg IM STAT PRN; Protocol PRN Reason: Hypoglycemia Protocol Glucagon (Glucagen Diagnostic Kit) 0 mg IM STAT PRN; Protocol PRN Reason: Hypoglycemia Protocol Glycerin (Glycerin Adult Suppository) 1 sup RI ONCE PRN PRN Reason: Constipation Iron Sucrose 100 mg/ Sodium (Chloride) 105 mls @ 105 mls/hr IVPB DAILY [facility] Stop: 03/04/18 09:59 Last Admin: 02/24/18 16:14 Dose: 105 mls/hr Insulin Detemir (Levemir) 5 units SC DAILY [facility] Last Admin: 02/24/18 09:00 Dose: 5 unit Lactic Acid (Lac-Hydrin 12% Lotion (225 G)) 1 applic TOP TID PRN PRN Reason: Itching / Pruritus Lactulose (Enulose) 10 gm PO DAILY [facility] Last Admin: 02/24/18 09:03 Dose: 10 gm Lidocaine (Lidoderm) 3 ea TD DAILY [facility] Last Admin: 02/24/18 16:16 Dose: Not Given Losartan Potassium (Cozaar) 25 mg PO DAILY [facility] Last Admin: 02/24/18 09:03 Dose: 25 mg Mirtazapine (Remeron) 30 mg PO HS [facility] Last Admin: 02/23/18 21:14 Dose: 30 mg Morphine Sulfate (Morphine Extended Release Tab) 15 mg PO Q12 [facility] Last Admin: 05/03/18 09:10 Dose: 15 mg Nystatin (Nystop Topical Powder) 1 applic TOP TID [facility] Last Admin: 02/24/18 16:18 Dose: 1 applic Senna/Docusate Sodium (Senokot S 50 Mg-8.6 Mg) 2 tab PO HS [facility] Last Admin: 02/23/18 21:15 Dose: 2 tab Tamsulosin HCl (Flomax) 0.4 mg PO DAILY [facility] Last Admin: 02/24/18 09:04 Dose: 0.4 mg Zinc Sulfate (Zinc Sulfate 220 Mg Cap) 220 mg PO DAILY [facility] Last Admin: 02/24/18 09:07 Dose: 220 mg - Labs Labs: 02/24/18 05:00 02/24/18 05:00 PT 11.9 Seconds (9.8-13.1) 01/24/18 04:20 INR 1.1 (0.9-1.2) 01/24/18 04:20 APTT 46.2 Seconds (25.6-37.1) H D 01/24/18 04:20 - Constitutional Appears: Non-toxic, No Acute Distress - Eye Exam Eye Exam: absent: Scleral icterus - ENT Exam ENT Exam: Mucous Membranes Moist - Respiratory Exam Respiratory Exam: Clear to Ausculation Bilateral. absent: Respiratory Distress - Cardiovascular Exam Cardiovascular Exam: RRR, +S1, +S2. absent: Gallop - GI/Abdominal Exam GI & Abdominal Exam: Soft. absent: Distended, Tenderness - Extremities Exam Additional comments: no leg edema; - Neurological Exam Neurological Exam: Alert, Awake - Psychiatric Exam Psychiatric exam: Normal Mood. absent: Agitated - Skin Skin Exam: Warm. absent: Cyanosis Assessment and Plan (1) Acute kidney injury Assessment & Plan: NAI on CKD IIIA; improved overall; continue to avoid nephrotoxic agents; Status: Acute (2) CKD (chronic kidney disease), stage III Assessment & Plan: Proteinuric kidney disease likely due to DM and vascular disease; continue ARB; Status: Chronic (3) Systolic CHF, chronic Assessment & Plan: Stable volume status; continue to optimize with coreg and losartan; Status: Chronic (4) Anemia Assessment & Plan: Hgb overall decreased; started on IV iron loading and EPO, continue; Status: Chronic (5) PVD (peripheral vascular disease) Status: Chronic (6) Urinary retention Assessment & Plan: Zelaya replaced today after malfunction; should give voiding trial if repeat culture negative; Status: Acute
[2018-02-24] MEDS: Docusate-Senna 50 mg-8.6 mg Tab PO SCH (21:31)
[2018-02-25 06:49] LABS: HEMOGLOBIN 8.1 g/dL (12.0-16.0); MEAN CELL VOLUME 86.3 fl (81.0-99.0); MEAN CORPUSCULAR HEMOGLOBIN 28.6 pg (27.0-31.0); MEAN CORPUSCULAR HGB CONC 33.2 g/dL (33.0-37.0); RBC 2.82 Mil/uL (3.80-5.20); RED CELL DISTRIBUTION WIDTH 13.5 % (11.5-14.5); WHITE BLOOD COUNT 11.8 K/uL (4.8-10.8)
[2018-02-25 07:01] LABS: ALB/GLOB RATIO 0.8 (1.0-2.1); ALBUMIN 2.6 g/dL (3.5-5.0); CALCIUM 8.5 mg/dL (8.4-10.2)
--- NOTE | 2018-02-25 08:20 | CP.PCM.PN ---
Subjective - Date & Time of Evaluation Date of Evaluation: 02/25/18 Time of Evaluation: 08:20 - Subjective Subjective: Ms. Carias was seen and examined at the bedside. She is alert, oriented, speaks mainly Azeri. She denies any headache, dizziness, lightheadedness.She is able to raise affected leg, follow simple commands. She has a very minimal right arm drift, but with episode of sudden jerky movement of her bilateral upper extremities when raised. There was no jerky movement noted with bilateral upper extremities resting comfortably in bed. She further claims of feeling much better after her zelaya catheter was changed yesterday. She further claims of having poor oral intake. Encourage to increase po intake, verbalizes understanding. There was no untoward events overnight. Objective - Vital Signs/Intake and Output Vital Signs (last 24 hours): Temp Pulse Resp BP Pulse Ox 99.3 F 76 18 121/68 96 02/25/18 05:00 02/25/18 05:00 02/25/18 05:00 02/25/18 05:00 02/25/18 05:00 Intake and Output: 02/25/18 02/25/18 06:59 18:59 Intake Total 400 Output Total 600 Balance -200 - Medications Medications: Current Medications Acetaminophen (Tylenol 325mg Tab) 650 mg PO Q6 PRN PRN Reason: Pain, Mild (1-3) Last Admin: 02/18/18 09:00 Dose: 650 mg Acetaminophen (Tylenol 325mg Tab) 325 mg PO BID [facility] Last Admin: 02/24/18 09:14 Dose: 325 mg Ascorbic Acid (Vitamin C 500 Mg Tab) 500 mg PO DAILY [facility] Last Admin: 02/24/18 09:07 Dose: 500 mg Aspirin (Ecotrin) 81 mg PO DAILY [facility] Last Admin: 02/24/18 09:03 Dose: 81 mg Atorvastatin Calcium (Lipitor) 40 mg PO HS [facility] Last Admin: 02/24/18 21:30 Dose: 40 mg Benzocaine/Menthol (Cepacol Sore Throat) 1 grazyna PO Q2 PRN PRN Reason: Sore Throat Last Admin: 01/27/18 11:03 Dose: 1 grazyna Bethanechol Chloride (Urecholine) 25 mg PO TID [facility] Last Admin: 02/24/18 16:19 Dose: 25 mg Carvedilol (Coreg) 6.25 mg PO Q12 [facility] Last Admin: 02/24/18 21:30 Dose: 6.25 mg Cephalexin Monohydrate (Keflex) 500 mg PO BID [facility] PRN Reason: Protocol Stop: 02/25/18 23:55 Last Admin: 02/24/18 16:16 Dose: 500 mg Clopidogrel Bisulfate (Plavix) 75 mg PO DAILY [facility] Last Admin: 02/09/18 08:48 Dose: 75 mg Dextrose (Dextrose 50% Inj) 0 ml IV STAT PRN; Protocol PRN Reason: Hypoglycemia Protocol Last Admin: 02/12/18 05:34 Dose: 50 ml Dextrose (Glutose 15) 0 gm PO ONCE PRN; Protocol PRN Reason: Hypoglycemia Protocol Dextrose (Dextrose 50% Inj) 0 ml IV STAT PRN; Protocol PRN Reason: Hypoglycemia Protocol Dextrose (Glutose 15) 0 gm PO ONCE PRN; Protocol PRN Reason: Hypoglycemia Protocol Epoetin Orville (Procrit) 10,000 unit SC MWF [facility] Last Admin: 02/23/18 12:25 Dose: 10,000 unit Escitalopram Oxalate (Lexapro) 5 mg PO DAILY [facility] Last Admin: 02/24/18 09:05 Dose: 5 mg Gabapentin (Neurontin) 300 mg PO HS [facility] Last Admin: 02/24/18 21:32 Dose: 300 mg Gabapentin (Neurontin) 100 mg PO BID [facility] Last Admin: 02/24/18 16:17 Dose: 100 mg Glucagon (Glucagen Diagnostic Kit) 0 mg IM STAT PRN; Protocol PRN Reason: Hypoglycemia Protocol Glucagon (Glucagen Diagnostic Kit) 0 mg IM STAT PRN; Protocol PRN Reason: Hypoglycemia Protocol Glycerin (Glycerin Adult Suppository) 1 sup SD ONCE PRN PRN Reason: Constipation Iron Sucrose 100 mg/ Sodium (Chloride) 105 mls @ 105 mls/hr IVPB DAILY [facility] Stop: 03/04/18 09:59 Last Admin: 02/24/18 16:14 Dose: 105 mls/hr Insulin Detemir (Levemir) 5 units SC DAILY [facility] Last Admin: 02/24/18 09:00 Dose: 5 unit Lactic Acid (Lac-Hydrin 12% Lotion (225 G)) 1 applic TOP TID PRN PRN Reason: Itching / Pruritus Lactulose (Enulose) 10 gm PO DAILY [facility] Last Admin: 02/24/18 09:03 Dose: 10 gm Lidocaine (Lidoderm) 3 ea TD DAILY [facility] Last Admin: 02/24/18 16:16 Dose: Not Given Losartan Potassium (Cozaar) 25 mg PO DAILY [facility] Last Admin: 02/24/18 09:03 Dose: 25 mg Mirtazapine (Remeron) 30 mg PO HS [facility] Last Admin: 02/24/18 21:31 Dose: 30 mg Morphine Sulfate (Morphine Extended Release Tab) 15 mg PO Q12 [facility] Last Admin: 02/24/18 21:33 Dose: 15 mg Nystatin (Nystop Topical Powder) 1 applic TOP TID [facility] Last Admin: 02/24/18 16:18 Dose: 1 applic Senna/Docusate Sodium (Senokot S 50 Mg-8.6 Mg) 2 tab PO HS [facility] Last Admin: 02/24/18 21:31 Dose: 2 tab Tamsulosin HCl (Flomax) 0.4 mg PO DAILY [facility] Last Admin: 02/24/18 09:04 Dose: 0.4 mg Zinc Sulfate (Zinc Sulfate 220 Mg Cap) 220 mg PO DAILY [facility] Last Admin: 02/24/18 09:07 Dose: 220 mg - Labs Labs: 02/25/18 06:15 02/25/18 06:15 PT 11.9 Seconds (9.8-13.1) 01/24/18 04:20 INR 1.1 (0.9-1.2) 01/24/18 04:20 APTT 46.2 Seconds (25.6-37.1) H D 01/24/18 04:20 - Constitutional Appears: No Acute Distress - Head Exam Head Exam: NORMAL INSPECTION - Neurological Exam Neuro motor strength exam: Left Upper Extremity: 4, Right Upper Extremity: 3, Left Lower Extremity: 2/1, Right Lower Extremity: 3 Additional comments: Neurological declined from previous examination, she remains alert, but the strength declined. Sensation remains the same. Assessment and Plan (1) CVA (cerebral vascular accident) Assessment & Plan: Case discussed with Dr. Phillips, continue all current medical, physical, and occupational therapies. Recommend repeat CT scan of the head without contrast to evaluate her subdural hematoma and stroke. If hematoma is gone, may resume plavix 75 mg PO daily. Recommend head of bed elevated, blood pressure, and glycemic control. Recommend to treat any underlying cause of elevated WBC and electrolyte abnormalities. Status: Acute
--- NOTE | 2018-02-25 09:01 | CP.PCM.PN ---
Subjective - Date & Time of Evaluation Date of Evaluation: 02/25/18 Time of Evaluation: 08:57 - Subjective Subjective: 67 y/o F evaluated and examined by bedside. Pt feeling well but reports being more sleepy lately. Pain with urination has improved since Zelaya removal and replacement. L limb pain has also improved. Pt tolerating PO, trying to eat a bit more. Objective - Vital Signs/Intake and Output Vital Signs (last 24 hours): Temp Pulse Resp BP Pulse Ox 99.6 F 83 19 112/66 94 L 02/25/18 08:29 02/25/18 08:29 02/25/18 08:29 02/25/18 08:29 02/25/18 08:29 Intake and Output: 02/25/18 02/25/18 06:59 18:59 Intake Total 400 Output Total 600 Balance -200 - Medications Medications: Current Medications Acetaminophen (Tylenol 325mg Tab) 650 mg PO Q6 PRN PRN Reason: Pain, Mild (1-3) Last Admin: 02/18/18 09:00 Dose: 650 mg Acetaminophen (Tylenol 325mg Tab) 325 mg PO BID [facility] Last Admin: 02/24/18 09:14 Dose: 325 mg Ascorbic Acid (Vitamin C 500 Mg Tab) 500 mg PO DAILY [facility] Last Admin: 02/24/18 09:07 Dose: 500 mg Aspirin (Ecotrin) 81 mg PO DAILY [facility] Last Admin: 02/24/18 09:03 Dose: 81 mg Atorvastatin Calcium (Lipitor) 40 mg PO HS [facility] Last Admin: 02/24/18 21:30 Dose: 40 mg Benzocaine/Menthol (Cepacol Sore Throat) 1 grazyna PO Q2 PRN PRN Reason: Sore Throat Last Admin: 01/27/18 11:03 Dose: 1 grazyna Bethanechol Chloride (Urecholine) 25 mg PO TID [facility] Last Admin: 02/24/18 16:19 Dose: 25 mg Carvedilol (Coreg) 6.25 mg PO Q12 [facility] Last Admin: 02/24/18 21:30 Dose: 6.25 mg Cephalexin Monohydrate (Keflex) 500 mg PO BID [facility] PRN Reason: Protocol Stop: 02/25/18 23:55 Last Admin: 02/24/18 16:16 Dose: 500 mg Clopidogrel Bisulfate (Plavix) 75 mg PO DAILY [facility] Last Admin: 02/09/18 08:48 Dose: 75 mg Dextrose (Dextrose 50% Inj) 0 ml IV STAT PRN; Protocol PRN Reason: Hypoglycemia Protocol Last Admin: 02/12/18 05:34 Dose: 50 ml Dextrose (Glutose 15) 0 gm PO ONCE PRN; Protocol PRN Reason: Hypoglycemia Protocol Dextrose (Dextrose 50% Inj) 0 ml IV STAT PRN; Protocol PRN Reason: Hypoglycemia Protocol Dextrose (Glutose 15) 0 gm PO ONCE PRN; Protocol PRN Reason: Hypoglycemia Protocol Epoetin Orville (Procrit) 10,000 unit SC F [facility] Last Admin: 02/23/18 12:25 Dose: 10,000 unit Escitalopram Oxalate (Lexapro) 5 mg PO DAILY [facility] Last Admin: 02/24/18 09:05 Dose: 5 mg Gabapentin (Neurontin) 300 mg PO HS [facility] Last Admin: 02/24/18 21:32 Dose: 300 mg Gabapentin (Neurontin) 100 mg PO BID [facility] Last Admin: 02/24/18 16:17 Dose: 100 mg Glucagon (Glucagen Diagnostic Kit) 0 mg IM STAT PRN; Protocol PRN Reason: Hypoglycemia Protocol Glucagon (Glucagen Diagnostic Kit) 0 mg IM STAT PRN; Protocol PRN Reason: Hypoglycemia Protocol Glycerin (Glycerin Adult Suppository) 1 sup AL ONCE PRN PRN Reason: Constipation Iron Sucrose 100 mg/ Sodium (Chloride) 105 mls @ 105 mls/hr IVPB DAILY [facility] Stop: 03/04/18 09:59 Last Admin: 02/24/18 16:14 Dose: 105 mls/hr Insulin Detemir (Levemir) 5 units SC DAILY [facility] Last Admin: 02/24/18 09:00 Dose: 5 unit Lactic Acid (Lac-Hydrin 12% Lotion (225 G)) 1 applic TOP TID PRN PRN Reason: Itching / Pruritus Lactulose (Enulose) 10 gm PO DAILY [facility] Last Admin: 02/24/18 09:03 Dose: 10 gm Lidocaine (Lidoderm) 3 ea TD DAILY [facility] Last Admin: 02/24/18 16:16 Dose: Not Given Losartan Potassium (Cozaar) 25 mg PO DAILY [facility] Last Admin: 02/24/18 09:03 Dose: 25 mg Mirtazapine (Remeron) 30 mg PO HS [facility] Last Admin: 02/24/18 21:31 Dose: 30 mg Morphine Sulfate (Morphine Extended Release Tab) 15 mg PO Q12 [facility] Last Admin: 02/24/18 21:33 Dose: 15 mg Nystatin (Nystop Topical Powder) 1 applic TOP TID [facility] Last Admin: 02/24/18 16:18 Dose: 1 applic Senna/Docusate Sodium (Senokot S 50 Mg-8.6 Mg) 2 tab PO HS [facility] Last Admin: 02/24/18 21:31 Dose: 2 tab Tamsulosin HCl (Flomax) 0.4 mg PO DAILY [facility] Last Admin: 02/24/18 09:04 Dose: 0.4 mg Zinc Sulfate (Zinc Sulfate 220 Mg Cap) 220 mg PO DAILY [facility] Last Admin: 02/24/18 09:07 Dose: 220 mg - Labs Labs: 02/25/18 06:15 02/25/18 06:15 PT 11.9 Seconds (9.8-13.1) 01/24/18 04:20 INR 1.1 (0.9-1.2) 01/24/18 04:20 APTT 46.2 Seconds (25.6-37.1) H D 01/24/18 04:20 - Constitutional Appears: Well, No Acute Distress - Head Exam Head Exam: ATRAUMATIC - Eye Exam Eye Exam: EOMI - ENT Exam ENT Exam: Mucous Membranes Moist - Neck Exam Neck Exam: Full ROM - Respiratory Exam Respiratory Exam: Clear to Ausculation Bilateral, NORMAL BREATHING PATTERN - Cardiovascular Exam Cardiovascular Exam: REGULAR RHYTHM, +S1, +S2 - GI/Abdominal Exam GI & Abdominal Exam: Soft, Normal Bowel Sounds. absent: Guarding, Rigid, Tenderness - Extremities Exam Extremities Exam: Full ROM. absent: Calf Tenderness, Pedal Edema - Neurological Exam Neurological Exam: Alert, Awake, Oriented x3 - Skin Additional comments: -Stage II ulcer on sacrum. -Healing Stage I ulcer on R heel. Assessment and Plan - Assessment and Plan (Free Text) Assessment: 67 y.o. 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 Plan: UTI: -Ucx: E.Coli: on Keflex 500 mg PO BID -ID: Dr. Palacios: recommendations appreciated -Before discharge, discuss with family about zelaya's catheter care and monthly zelaya's replacement. Urinary retention: -zelaya day 8 -C/w Flomax -Urology: Dr. Snell, recommendations appreciated.. 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 Andujar on board: continue with medical management; -Head CT today as per Neuro. Will f/u results. -F/U further discussion about possible neuro-intervention Anemia -S/P 4 PRBC's -IV Iron and EPO as per nephrology, Dr Schultz. BKA -Performed on 01/24/2018 -Pain management: gabapentin 100 mg TID and Morphine 15mg PO BID. (Gabapentin 300mg HS was stopped as pt has felt more sleepy lately.) -General Surgery, further eval and recommendations. DTI -Ulcer of sacrum: Stage II -Healing Stage I ulcer on R heel. -Wound care nursing: with meta honey; zinc and vitamin C -zelaya in place Depression -Lexapro 5mg daily CKD: -Nephro: Dr. Schultz, recommendations. -Procrit ordered -BUN/Cr: 28/1.3 on 02/21, yesterday DM -on Levemir: d/c QHS 2/2 am hypoglycemia -accuchecks -ISS HTN -On Losartan 25mg PO daily Prophylaxis -SCDs -ambulation with PT assistance. -Spirometry
[2018-02-25] MEDS: Lactulose 10 gm/15 ml Syrup PO SCH (09:23)
[2018-02-25] MEDS: Morphine 15 mg SR Tab PO SCH ×2 (09:32→21:13)
[2018-02-25] MEDS: Lidocaine 5% Patch TD SCH (09:33)
[2018-02-25] MEDS: Insulin Detemir 100 Units/ml Inj SC SCH (09:34)
[2018-02-25] MEDS: EPOETIN ALFA 10,000 UNIT/ML ML SC SCH (09:37)
--- NOTE | 2018-02-25 12:03 | CT ---
PROCEDURE: CT HEAD WITHOUT CONTRAST. HISTORY: follow up subdural hematoma COMPARISON: CTA head dated 02/21/2018. TECHNIQUE: Axial computed tomography images were obtained through the head/brain without intravenous contrast. Radiation dose: Total exam DLP = 766.3 mGy-cm. This CT exam was performed using one or more of the following dose reduction techniques: Automated exposure control, adjustment of the mA and/or kV according to patient size, and/or use of iterative reconstruction technique. FINDINGS: HEMORRHAGE: Further reduction in now trace subdural hematoma layering along the left tentorium in the region of the middle cranial fossa. No new hemorrhage. BRAIN: No mass effect or edema. Atrophy. Chronic microvascular ischemic changes. Bilateral thalamic, left basal ganglia/external capsule lacunar infarctions redemonstrated. VENTRICLES: Mildly prominent. No hydrocephalus. CALVARIUM: Unremarkable. PARANASAL SINUSES: Near complete right maxillary sinus opacification, unchanged. MASTOID AIR CELLS: Unremarkable as visualized. No inflammatory changes. OTHER FINDINGS: Leftward nasal septal deviation. IMPRESSION: Further reduction in now trace subdural hematoma layering along the left tentorium in the region of the middle cranial fossa. No new hemorrhage. No other significant interval change.
[2018-02-25] MEDS: Docusate-Senna 50 mg-8.6 mg Tab PO SCH (21:17)
--- NOTE | 2018-02-26 07:28 | CP.PCM.PN ---
Subjective - Date & Time of Evaluation Date of Evaluation: 02/26/18 Time of Evaluation: 07:20 - Subjective Subjective: 67 yo F seen and examined in bedside chair. States feeling fine and denies any overnight problems or complaints. Limb pain managed. Tolerating PO diet. Objective - Vital Signs/Intake and Output Vital Signs (last 24 hours): Temp Pulse Resp BP Pulse Ox 98.5 F 70 18 136/69 95 02/26/18 05:07 02/26/18 05:07 02/26/18 05:07 02/26/18 05:07 02/26/18 05:07 - Medications Medications: Current Medications Acetaminophen (Tylenol 325mg Tab) 650 mg PO Q6 PRN PRN Reason: Pain, Mild (1-3) Last Admin: 02/18/18 09:00 Dose: 650 mg Acetaminophen (Tylenol 325mg Tab) 325 mg PO BID [facility] Last Admin: 02/25/18 16:52 Dose: 325 mg Ascorbic Acid (Vitamin C 500 Mg Tab) 500 mg PO DAILY [facility] Last Admin: 02/25/18 09:24 Dose: 500 mg Aspirin (Ecotrin) 81 mg PO DAILY [facility] Last Admin: 02/25/18 09:23 Dose: 81 mg Atorvastatin Calcium (Lipitor) 40 mg PO HS [facility] Last Admin: 02/25/18 21:14 Dose: 40 mg Benzocaine/Menthol (Cepacol Sore Throat) 1 grazyna PO Q2 PRN PRN Reason: Sore Throat Last Admin: 01/27/18 11:03 Dose: 1 grazyna Bethanechol Chloride (Urecholine) 25 mg PO TID [facility] Last Admin: 02/25/18 16:51 Dose: 25 mg Carvedilol (Coreg) 6.25 mg PO Q12 [facility] Last Admin: 02/25/18 21:17 Dose: Not Given Clopidogrel Bisulfate (Plavix) 75 mg PO DAILY [facility] Last Admin: 02/09/18 08:48 Dose: 75 mg Dextrose (Dextrose 50% Inj) 0 ml IV STAT PRN; Protocol PRN Reason: Hypoglycemia Protocol Last Admin: 02/12/18 05:34 Dose: 50 ml Dextrose (Glutose 15) 0 gm PO ONCE PRN; Protocol PRN Reason: Hypoglycemia Protocol Dextrose (Dextrose 50% Inj) 0 ml IV STAT PRN; Protocol PRN Reason: Hypoglycemia Protocol Dextrose (Glutose 15) 0 gm PO ONCE PRN; Protocol PRN Reason: Hypoglycemia Protocol Epoetin [place] (Procrit) 10,000 unit SC MWF [facility] Last Admin: 02/25/18 09:37 Dose: 10,000 unit Escitalopram Oxalate (Lexapro) 5 mg PO DAILY [facility] Last Admin: 02/25/18 09:23 Dose: 5 mg Gabapentin (Neurontin) 100 mg PO TID [facility] Last Admin: 02/25/18 16:50 Dose: 100 mg Glucagon (Glucagen Diagnostic Kit) 0 mg IM STAT PRN; Protocol PRN Reason: Hypoglycemia Protocol Glucagon (Glucagen Diagnostic Kit) 0 mg IM STAT PRN; Protocol PRN Reason: Hypoglycemia Protocol Glycerin (Glycerin Adult Suppository) 1 sup SC ONCE PRN PRN Reason: Constipation Iron Sucrose 100 mg/ Sodium (Chloride) 105 mls @ 105 mls/hr IVPB DAILY [facility] Stop: 03/04/18 09:59 Last Admin: 02/24/18 16:14 Dose: 105 mls/hr Insulin Detemir (Levemir) 5 units SC DAILY [facility] Last Admin: 02/25/18 09:34 Dose: 5 unit Lactic Acid (Lac-Hydrin 12% Lotion (225 G)) 1 applic TOP TID PRN PRN Reason: Itching / Pruritus Lactulose (Enulose) 10 gm PO DAILY [facility] Last Admin: 02/25/18 09:23 Dose: 10 gm Lidocaine (Lidoderm) 3 ea TD DAILY [facility] Last Admin: 02/25/18 09:33 Dose: 3 ea Losartan Potassium (Cozaar) 25 mg PO DAILY [facility] Last Admin: 02/25/18 09:22 Dose: 25 mg Mirtazapine (Remeron) 30 mg PO [facility] Last Admin: 02/25/18 21:14 Dose: 30 mg Morphine Sulfate (Morphine Extended Release Tab) 15 mg PO Q12 [facility] Last Admin: 02/25/18 21:13 Dose: 15 mg Nystatin (Nystop Topical Powder) 1 applic TOP TID [facility] Last Admin: 02/25/18 16:50 Dose: 1 applic Senna/Docusate Sodium (Senokot S 50 Mg-8.6 Mg) 2 tab PO HS [facility] Last Admin: 02/25/18 21:17 Dose: 2 tab Zinc Sulfate (Zinc Sulfate 220 Mg Cap) 220 mg PO DAILY [facility] Last Admin: 02/25/18 09:24 Dose: 220 mg - Labs Labs: 02/25/18 06:15 02/25/18 06:15 PT 11.9 Seconds (9.8-13.1) 01/24/18 04:20 INR 1.1 (0.9-1.2) 01/24/18 04:20 APTT 46.2 Seconds (25.6-37.1) H D 01/24/18 04:20 - Additional Findings Additional findings: - Constitutional Appears: Well, No Acute Distress - Eye Exam Eye Exam: EOMI - ENT Exam ENT Exam: Mucous Membranes Moist - Respiratory Exam Respiratory Exam: Clear to Ausculation Bilateral, NORMAL BREATHING PATTERN - Cardiovascular Exam Cardiovascular Exam: REGULAR RHYTHM, +S1, +S2 - GI/Abdominal Exam GI & Abdominal Exam: Soft, Normal Bowel Sounds. absent: Guarding, Rigid, Tenderness - Extremities Exam Extremities Exam: Full ROM. absent: Calf Tenderness, Pedal Edema - Neurological Exam Neurological Exam: Alert, Awake, Oriented x3 - Skin Additional comments: -Stage II ulcer on sacrum. -Healing Stage I ulcer on R heel. 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 1) UTI: -ID: Dr. Palacios: recommendations appreciated -Before discharge, discuss with family about zelaya's catheter care and monthly zelaya's replacement. 2) Urinary retention: -Zelaya day 2 -C/w Flomax -Urology: Dr. 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 Andujar on board: continue with medical management -Head CT today as per Neuro. Will f/u results. -F/U further discussion about possible neuro-intervention 4) Anemia -S/P 4 PRBC's -IV Iron and EPO as per nephrology, Dr Schultz. 5) BKA on 01/24/18 -Pain management: gabapentin 100 mg TID and Morphine 15mg PO BID. (Gabapentin 300mg HS was stopped as pt has felt more sleepy lately.) -General Surgery, further eval and recommendations. 6) DTI -Ulcer of sacrum: Stage II -Healing Stage I ulcer on R heel. -Wound care nursing: with meta honey; zinc and vitamin C -zelaya in place 7) Depression -Lexapro 5mg daily 8) CKD: -Nephro: Dr. Schultz, recommendations. -Procrit ordered -BUN/Cr: 28/1.5 on 02/25 9) DM -on Levemir: d/c QHS 2/2 am hypoglycemia -accuchecks -ISS 10) HTN -On Losartan 25mg PO daily 11) Prophylaxis -SCDs -ambulation with PT assistance -Spirometry
[2018-02-26] MEDS: Lactulose 10 gm/15 ml Syrup PO SCH (09:18)
[2018-02-26] MEDS: Lidocaine 5% Patch TD SCH (09:19)
[2018-02-26] MEDS: Morphine 15 mg SR Tab PO SCH (09:23)
[2018-02-26] MEDS: Insulin Detemir 100 Units/ml Inj SC SCH (09:25)
[2018-02-26 12:17] VITALS: RESP 18
[2018-02-26 12:39] LABS: HEMOGLOBIN 8.2 g/dL (12.0-16.0); MEAN CELL VOLUME 87.4 fl (81.0-99.0); MEAN CORPUSCULAR HEMOGLOBIN 28.6 pg (27.0-31.0); MEAN CORPUSCULAR HGB CONC 32.7 g/dL (33.0-37.0); RBC 2.87 Mil/uL (3.80-5.20); RED CELL DISTRIBUTION WIDTH 14.4 % (11.5-14.5); WHITE BLOOD COUNT 13.8 K/uL (4.8-10.8)
[2018-02-26 12:43] LABS: CALCIUM 8.6 mg/dL (8.4-10.2)
[2018-02-26 16:41] VITALS: BP 113/62; PULSE 74; TEMP 98.5; O2SAT 98
--- NOTE | 2018-02-27 07:03 | CP.PCM.DIS ---
Provider - Provider Date of Admission: 01/14/18 15:08 Attending physician: Justina Deutsch MD Time Spent in preparation of Discharge (in minutes): 25 Diagnosis - Discharge Diagnosis (1) S/P BKA (below knee amputation) Status: Acute (2) CVA (cerebral vascular accident) Status: Acute (3) Uncontrolled diabetes mellitus Status: Acute (4) Urinary retention Status: Acute Hospital Course - Lab Results Lab Results: Micro Results 02/24/18 18:10 Urine,Catheterized Urine Culture - Final Yeast Species 02/17/18 08:54 Urine,Catheterized Urine Culture - Final Escherichia Coli 02/04/18 20:13 Urine,Catheterized Urine Culture - Final No Growth (<1,000 CFU/ML) 02/02/18 08:49 Urine Urine Culture - Final No Growth (<1,000 CFU/ML) 01/14/18 09:50 Toe Gram Stain - Final 01/14/18 09:50 Toe Wound Culture - Final Corynebacterium Species Most Recent Lab Values WBC 13.8 K/uL (4.8-10.8) H 02/26/18 12:05 RBC 2.87 Mil/uL (3.80-5.20) L 02/26/18 12:05 Hgb 8.2 g/dL (12.0-16.0) L 02/26/18 12:05 Hct 25.0 % (34.0-47.0) L 02/26/18 12:05 MCV 87.4 fl (81.0-99.0) 02/26/18 12:05 MCH 28.6 pg (27.0-31.0) 02/26/18 12:05 MCHC 32.7 g/dL (33.0-37.0) L 02/26/18 12:05 RDW 14.4 % (11.5-14.5) 02/26/18 12:05 Plt Count 240 K/uL (130-400) 02/26/18 12:05 MPV 9.3 fl (7.2-11.7) 02/23/18 06:40 Neut % (Auto) 62.2 % (50.0-75.0) 02/23/18 06:40 Lymph % (Auto) 22.8 % (20.0-40.0) 02/23/18 06:40 [place] % (Auto) 11.1 % (0.0-10.0) H 02/23/18 06:40 Eos % (Auto) 2.7 % (0.0-4.0) 02/23/18 06:40 Baso % (Auto) 1.2 % (0.0-2.0) 02/23/18 06:40 Neut # (Auto) 6.3 K/uL (1.8-7.0) 02/23/18 06:40 Lymph # (Auto) 2.3 K/uL (1.0-4.3) 02/23/18 06:40 [place] # (Auto) 1.1 K/uL (0.0-0.8) H 02/23/18 06:40 Eos # (Auto) 0.3 K/uL (0.0-0.7) 02/23/18 06:40 Baso # (Auto) 0.1 K/uL (0.0-0.2) 02/23/18 06:40 Neutrophils % (Manual) 78 % (42-75) H 02/05/18 06:00 Band Neutrophils % 2 % (0-2) 02/05/18 06:00 Lymphocytes % (Manual) 9 % (20-50) L 02/05/18 06:00 Monocytes % (Manual) 9 % (0-10) 02/05/18 06:00 Eosinophils % (Manual) 1 % (0-7) 02/05/18 06:00 Basophils % (Manual) 1 % (0-2) 02/05/18 06:00 Toxic Granulation Present 02/05/18 06:00 Platelet Estimate Normal (NORMAL) 02/05/18 06:00 RBC Morphology Normal (NORMAL) 02/01/18 05:50 Hypochromasia (manual) Slight 02/05/18 06:00 Anisocytosis (manual) Slight 02/05/18 06:00 ESR 66 mm/hr (0-30) H 01/14/18 14:23 PT 11.9 Seconds (9.8-13.1) 01/24/18 04:20 INR 1.1 (0.9-1.2) 01/24/18 04:20 APTT 46.2 Seconds (25.6-37.1) H D 01/24/18 04:20 Sodium 131 mmol/l (132-148) L 02/26/18 12:05 Potassium 4.5 MMOL/L (3.6-5.0) 02/26/18 12:05 Chloride 100 mmol/L (98-107) 02/26/18 12:05 Carbon Dioxide 19 mmol/L (22-30) L 02/26/18 12:05 Anion Gap 17 (10-20) 02/26/18 12:05 BUN 38 mg/dl (7-17) H 02/26/18 12:05 Creatinine 1.4 mg/dl (0.7-1.2) H 02/26/18 12:05 Est GFR ( Amer) 46 02/26/18 12:05 Est GFR (Non-Af Amer) 38 02/26/18 12:05 POC Glucose (mg/dL) 281 mg/dL (65-110) H 02/26/18 11:27 Random Glucose 277 mg/dL (65-105) H 02/26/18 12:05 Hemoglobin A1c 7.3 % (4.2-6.5) H 01/15/18 12:05 Lactic Acid 1.2 MMOL/L (0.7-2.1) 02/11/18 04:25 Calcium 8.6 mg/dL (8.4-10.2) 02/26/18 12:05 Phosphorus 3.5 mg/dl (2.5-4.5) 02/05/18 11:52 Magnesium 2.4 MG/DL (1.6-2.3) H 02/05/18 11:52 Iron 29 ug/dL (37-170) L 02/23/18 06:26 TIBC 218 ug/dL (250-450) L 02/23/18 06:26 % Saturation 13 % (20-55) L 02/23/18 06:26 Ferritin 416.0 ng/Ml (11.1-264.0) H 02/23/18 06:40 Total Bilirubin 0.3 mg/dl (0.2-1.3) 02/25/18 06:15 AST 40 U/L (14-36) H 02/25/18 06:15 ALT 59 U/L (9-52) H 02/25/18 06:15 Alkaline Phosphatase 108 U/L (38-126) 02/25/18 06:15 Ammonia < 9 umo/L (11-51) L 02/09/18 05:30 Total Protein 5.9 G/DL (6.3-8.2) L 02/25/18 06:15 Albumin 2.6 g/dL (3.5-5.0) L 02/25/18 06:15 Globulin 3.3 gm/dL (2.2-3.9) 02/25/18 06:15 Albumin/Globulin Ratio 0.8 (1.0-2.1) L 02/25/18 06:15 Triglycerides 111 mg/DL (0-149) 02/11/18 04:25 Cholesterol 107 mg/dL (0-199) 02/11/18 04:25 LDL Cholesterol Direct 50 mg/dL (0-129) 02/11/18 04:25 HDL Cholesterol 24 MG/DL (30-70) L 02/11/18 04:25 Procalcitonin 0.08 NG/ML (0.19-0.49) L 02/14/18 04:25 Urine Color Yellow (YELLOW) 02/24/18 18:10 Urine Clarity Cloudy (Clear) 02/24/18 18:10 Urine pH 6.0 (5.0-8.0) 02/24/18 18:10 Ur Specific [place] 1.008 (1.003-1.030) 02/24/18 18:10 Urine Protein 30 mg/dL (NEGATIVE) 02/24/18 18:10 Urine Glucose (UA) 50 mg/dL (Normal) 02/24/18 18:10 Urine Ketones Negative mg/dL (NEGATIVE) 02/24/18 18:10 Urine Blood Small (NEGATIVE) 02/24/18 18:10 Urine Nitrate Negative (NEGATIVE) 02/24/18 18:10 Urine Bilirubin Negative (NEGATIVE) 02/24/18 18:10 Urine Urobilinogen 0.2-1.0 mg/dL (0.2-1.0) 02/24/18 18:10 Ur Leukocyte Esterase Large [place]/uL (Negative) 02/24/18 18:10 Urine RBC (Auto) 1 /hpf (0-3) 02/24/18 18:10 Urine WBC Clumps (Auto) Mod /hpf (NONE) H 02/24/18 18:10 Urine Microscopic WBC 6 /hpf (0-5) H 02/24/18 18:10 Ur Squamous Epith Cells < 1 /hpf (0-5) 02/24/18 18:10 Amorphous Sediment Occ /ul (<OCC) H 02/24/18 18:10 Urine Bacteria Occ (<OCC) H 02/24/18 18:10 Urine Yeast (Budding) Rare /hpf (NEGATIVE) H 02/24/18 18:10 Vancomycin Trough 19.1 ug/mL (5.0-10.0) H 01/26/18 10:10 Blood Type A POSITIVE 01/24/18 04:20 Antibody Screen Negative 01/24/18 04:20 Crossmatch See Detail 01/24/18 04:20 BBK History Checked Patient has bt 01/24/18 04:20 - Hospital Course Hospital Course: 67 yo F w PMHx of DM2, HTN, HLD, [place], CVA, and chronic back pain initially admitted for left foot ulcer resulting in BKA. Developed stroke in left- parietal occipital region, with a subacute subdural hemorrhage inferior to the temporal lobe. MRA of the head narrowing of the right cavernaous carotid artery due to calcified atherosclerotic plaque. Urinary retention also developed following now-resolved NAI course. Retention managed well with zelaya catheter placement. Discharged on day 2 of current zelaya. Discharged w zelaya care instructions provided to family, requiring zelaya catheter removal and replacement every 4-6 weeks. Discharge Exam - Additional Findings Additional findings: - Constitutional Appears: Well, No Acute Distress - Eye Exam Eye Exam: EOMI - ENT Exam ENT Exam: Mucous Membranes Moist - Respiratory Exam Respiratory Exam: Clear to Ausculation Bilateral, NORMAL BREATHING PATTERN - Cardiovascular Exam Cardiovascular Exam: REGULAR RHYTHM, +S1, +S2 - GI/Abdominal Exam GI & Abdominal Exam: Soft, Normal Bowel Sounds. absent: Guarding, Rigid, Tenderness - Extremities Exam Extremities Exam: Full ROM. absent: Calf Tenderness, Pedal Edema - Neurological Exam Neurological Exam: Alert, Awake, Oriented x3 - Skin Additional comments: -Stage II ulcer on sacrum. -Healing Stage I ulcer on R heel. Discharge Plan - Discharge Medications Prescriptions: Ascorbic Acid [Vitamin C 500 mg Tab] 500 mg PO DAILY #30 tab Aspirin [Ecotrin] 81 mg PO DAILY #30 tabec Atorvastatin [Lipitor] 40 mg PO HS #30 tab Bethanechol [Urecholine] 25 mg PO TID #45 tab Carvedilol [Coreg] 6.25 mg PO Q12 #60 tab Clopidogrel [Plavix] 75 mg PO DAILY #30 tab Docusate Sodium/Sennosides A [Senokot S 50 MG-8.6 MG] 2 tab PO HS #30 tab Ferrous Sulfate 325 mg PO BID #60 tablet Gabapentin [Neurontin] 100 mg PO TID #90 cap Insulin Human NPH/Reg [humulin 70/30 70 U/Ml-30 U/Ml 10 Ml] 5 ml SC DAILY 30 Days Losartan [Cozaar] 25 mg PO DAILY #30 tab Mirtazapine [Remeron] 30 mg PO HS #30 tab Nystatin [Nystop Topical Powder] 1 applic TOP TID #1 bottle oxyCODONE/Acetaminophen [Percocet 5/325 mg Tab] 1 ea PO Q6 PRN #20 tab PRN Reason: Pain, Moderate (4-7) - Follow Up Plan Condition: STABLE Disposition: HOME/ ROUTINE Instructions: Amputation, Zaqqc-[id number]-[id number] (DC), Urinary Retention (DC) Additional Instructions: Patient to Follow up at [facility] on March 08, 2018 at 1:[address] Melendez. Prescriptions sent to [facility] in [facility] as requested. 2 week follow up with Dr. Christian in office or at wound clinic on . Plavix to be restarted in 1 week. Dressing instructions 1) Daily dressing changes unless dress becomes saturated with fluid 2) You may shower, but do not submerge wound under water 3) Follow up with Dr. Christian in 2 weeks in his office or wound clinic. Referrals: [facility] [Outside] [facility] [Outside] Dario Christian MD [Staff Provider] -
== END 2018-02-26 18:01 | disposition home or self-care (01) | DRG 549 ==
LOC: H.ER 12:43 → H.ERHOLD 15:08 → H.MEDSURG1 16:16 → H.TEL 22:11 → H.MEDSURG1 01-26 15:48 → UNDODISIN 02-01 11:57 → H.MEDSURG1 02-02 18:16 → H.TEL 02-10 15:14
PROVIDERS: ADMIT Family Medicine Geriatric Medicine; ATTEND Family Medicine Geriatric Medicine
PROC: 02HV33Z Insertion of Infusion Device into Superior Vena Cava, Percutaneous Approach (ICD-10-PCS; 2018-01-20)
PROC: B5181ZA Fluoroscopy of Superior Vena Cava using Low Osmolar Contrast, Guidance (ICD-10-PCS; 2018-01-20)
PROC: 0Y6J0Z1 Detachment at Left Lower Leg, High, Open Approach (ICD-10-PCS; principal; 2018-01-24 07:45)
DX: E11.52 Type 2 diabetes mellitus with diabetic peripheral angiopathy with gangrene (principal); I50.22 Chronic systolic (congestive) heart failure; N17.9 Acute kidney failure, unspecified; M86.18 Other acute osteomyelitis, other site; L89.611 Pressure ulcer of right heel, stage 1; I96 Gangrene, not elsewhere classified; L97.528 Non-pressure chronic ulcer of other part of left foot with other specified severity; I13.0 Hypertensive heart and chronic kidney disease with heart failure and stage 1 through stage 4 chronic kidney disease, or unspecified chronic kidney disease; N18.3 Chronic kidney disease, stage 3 (moderate); I42.0 Dilated cardiomyopathy; E11.65 Type 2 diabetes mellitus with hyperglycemia; N39.0 Urinary tract infection, site not specified; E87.5 Hyperkalemia; L03.90 Cellulitis, unspecified; K56.41 Fecal impaction; I25.10 Atherosclerotic heart disease of native coronary artery without angina pectoris; E78.00 Pure hypercholesterolemia, unspecified; Z95.5 Presence of coronary angioplasty implant and graft; Z95.1 Presence of aortocoronary bypass graft; Z91.81 History of falling; I25.2 Old myocardial infarction; G89.29 Other chronic pain; F17.210 Nicotine dependence, cigarettes, uncomplicated; Z79.4 Long term (current) use of insulin; F32.9 Major depressive disorder, single episode, unspecified; Z86.73 Personal history of transient ischemic attack (TIA), and cerebral infarction without residual deficits; Z79.899 Other long term (current) drug therapy; Z79.82 Long term (current) use of aspirin; Z79.02 Long term (current) use of antithrombotics/antiplatelets; E11.621 Type 2 diabetes mellitus with foot ulcer; E11.22 Type 2 diabetes mellitus with diabetic chronic kidney disease; D64.9 Anemia, unspecified; R31.29 Other microscopic hematuria; R33.8 Other retention of urine; S06.5X9A Traumatic subdural hemorrhage with loss of consciousness of unspecified duration, initial encounter; W04.XXXA Fall while being carried or supported by other persons, initial encounter; Y92.230 Patient room in hospital as the place of occurrence of the external cause; S00.11XA Contusion of right eyelid and periocular area, initial encounter; I95.9 Hypotension, unspecified; D72.829 Elevated white blood cell count, unspecified; M75.111 Incomplete rotator cuff tear or rupture of right shoulder, not specified as traumatic; I87.2 Venous insufficiency (chronic) (peripheral); G89.18 Other acute postprocedural pain; G54.6 Phantom limb syndrome with pain; E78.5 Hyperlipidemia, unspecified; K21.9 Gastro-esophageal reflux disease without esophagitis

== ENCOUNTER 2018-03-04 11:09 | Inpatient (IN) | payer SELFPAY ==
[2018-03-04 11:47] VITALS: BMI 20.1
--- NOTE | 2018-03-04 12:23 | ED PDOC ---
HPI: General Adult Time Seen by Provider: 03/04/18 11:59 Chief Complaint (Nursing): Abdominal Pain Chief Complaint (Provider): dysuria History Per: Patient, Family (daughter in law) Additional Complaint(s): 67-year-old female status post left BKA on January 24 presents to ED today complaining of dysuria and lower abdominal pain. Patient was discharged from hospital 5 days ago with a urinary catheter in place. Patient woke up this morning complaining of dysuria and abdominal discomfort. No fever or chills, patient does have mild lower back pain. No nausea or vomiting. Patient arrives her fexmrpph-yq-lll. Cweurwgs-vq-wrp has been doing dressing changes at home for DKA surgical site. Izfzwvwa-jf-rwf states there has been slight serosanguineous drainage. PMD: [facility] Past Medical History Reviewed: Historical Data, Nursing Documentation, Vital Signs Vital Signs: Last Vital Signs Temp 98 F 03/04/18 15:51 Pulse 74 03/04/18 15:51 Resp 18 03/04/18 15:51 BP 141/79 03/04/18 15:51 Pulse Ox 100 03/04/18 15:55 - Medical History PMH: CAD, CVA, Diabetes, HTN, Hypercholesterolemia - Surgical History Surgical History: Coronary Stent Other surgeries: Left BKA - Family History Family History: States: No Known Family Hx - Living Arrangements Living Arrangements: With Family - Social History Current smoker - smoking cessation education provided: No Alcohol: None Drugs: Denies - Home Medications Home Medications: Ambulatory Orders Medication Instructions Recorded Aspirin [Ecotrin] 81 mg PO DAILY #30 tabec 02/26/18 Atorvastatin [Lipitor] 40 mg PO HS #30 tab 02/26/18 Bethanechol [Urecholine] 25 mg PO TID #45 tab 02/26/18 Carvedilol [Coreg] 6.25 mg PO Q12 #60 tab 02/26/18 Clopidogrel [Plavix] 75 mg PO DAILY #30 tab 02/26/18 Ferrous Sulfate 325 mg PO BID #60 tablet 02/26/18 Gabapentin [Neurontin] 100 mg PO TID #90 cap 02/26/18 Losartan [Cozaar] 25 mg PO DAILY #30 tab 02/26/18 Mirtazapine [Remeron] 30 mg PO HS #30 tab 02/26/18 Nystatin [Nystop Topical Powder] 1 applic TOP TID #1 bottle 02/26/18 oxyCODONE/Acetaminophen [Percocet 1 ea PO Q6 PRN #20 tab 02/26/18 5/325 mg Tab] Insulin Aspart, Recombinant 10 unit SC TID 03/04/18 [Novolog] Insulin Detemir [Levemir] 20 unit SC DAILY 03/04/18 - Allergies Allergies/Adverse Reactions: Allergies Allergy/AdvReac Type Severity Reaction Status Date / Time No Known Allergies Allergy Verified 05/14/16 14:21 Review of Systems ROS Statement: Except As Marked, All Systems Reviewed And Found Negative Constitutional: Negative for: Fever, Chills Cardiovascular: Negative for: Chest Pain Respiratory: Negative for: Cough Gastrointestinal: Positive for: Abdominal Pain. Negative for: Nausea, Vomiting , Diarrhea Genitourinary Female: Positive for: Dysuria Physical Exam - Reviewed Nursing Documentation Reviewed: Yes Vital Signs Reviewed: Yes - Physical Exam Appears: Positive for: Well, Non-toxic, No Acute Distress Skin: Negative for: Rash Eye Exam: Positive for: Normal appearance Cardiovascular/Chest: Positive for: Regular Rate, Rhythm Respiratory: Positive for: Normal Breath Sounds Gastrointestinal/Abdominal: Positive for: Soft. Negative for: Tenderness, Distended, Guarding, Rebound Back: Negative for: L CVA Tenderness, R CVA Tenderness Extremity: Positive for: Other (Left BKA stump - sutures in place with necrotic tissue noted along borders, small dehiscense noted with slight serosnaguinous drainage) Neurologic/Psych: Positive for: Alert, Oriented - Laboratory Results Result Diagrams: 03/04/18 12:48 03/04/18 12:48 - ECG Interpretation Of ECG: NSR 73 bpm, no acute changes, reviewed by PA and ED attending O2 Sat by Pulse Oximetry: 100 Pulse Ox Interpretation: Normal - Other Rad CXR X-Ray: Interpreted by Me, Viewed By Me X-Ray Interpretation: no acute finding, no interval change Medical Decision Making Medical Decision Makin67 year old with dysuria and abd pain, has urinary catheter in place Plan: Blood culture UA Urine culture CBC CMP IVF Case was d/w family practice resident, Dr. Valentine. Patient with UTI, WBC count, hypotensive. Will be admitted to obs-tele. IV zosyn initial dose ordered. Left BKA completed by Dr. Christian, case was d/w ophthalmology surgical technician who saw patient at bedside. Disposition - Clinical Impression Clinical Impression: Urinary tract infection - Patient ED Disposition Is Patient to be Admitted: Yes - Disposition Disposition Time: 14:14 Condition: FAIR - Pt Status Changed To: Hospital Disposition Of: Observation Results - Lab Results Lab Results: 03/04/18 03/04/18 03/04/18 12:53 12:48 12:48 WBC RBC Hgb Hct MCV MCH MCHC RDW Plt Count MPV Neut % (Auto) Lymph % (Auto) [place] % (Auto) Eos % (Auto) Baso % (Auto) Neut # (Auto) Lymph # (Auto) [place] # (Auto) Eos # (Auto) Baso # (Auto) Sodium 138 Potassium 4.9 Chloride 106 Carbon Dioxide 17 L Anion Gap 20 BUN 34 H Creatinine 1.3 H Est GFR ( Amer) 50 Est GFR (Non-Af Amer) 41 Random Glucose 136 H Calcium 8.7 Total Bilirubin 0.6 AST 47 H ALT 59 H Alkaline Phosphatase 100 Total Protein 6.9 Albumin 3.2 L D Globulin 3.7 Albumin/Globulin Ratio 0.9 L Urine Color Yellow Urine Clarity Turbid Urine pH 6.0 Ur Specific [place] 1.009 Urine Protein 100 Urine Glucose (UA) Neg Urine Ketones Negative Urine Blood Small Urine Nitrate Negative Urine Bilirubin Negative Urine Urobilinogen 0.2-1.0 Ur Leukocyte Esterase Large Urine RBC (Auto) 23 H Urine WBC Clumps (Auto) Mod H Urine Microscopic WBC 537 H Urine Bacteria Mod H Urine Yeast (Budding) Few H Salicylates < 1.0 03/04/18 12:48 WBC 16.1 H RBC 3.16 L Hgb 9.6 L Hct 28.1 L MCV 88.9 MCH 30.2 MCHC 34.0 RDW 17.0 H Plt Count 364 D MPV 8.8 Neut % (Auto) 78.1 H Lymph % (Auto) 12.4 L [place] % (Auto) 6.1 Eos % (Auto) 2.8 Baso % (Auto) 0.6 Neut # (Auto) 12.5 H Lymph # (Auto) 2.0 [place] # (Auto) 1.0 H Eos # (Auto) 0.5 Baso # (Auto) 0.1 Sodium Potassium Chloride Carbon Dioxide Anion Gap BUN Creatinine Est GFR ( Amer) Est GFR (Non-Af Amer) Random Glucose Calcium Total Bilirubin AST ALT Alkaline Phosphatase Total Protein Albumin Globulin Albumin/Globulin Ratio Urine Color Urine Clarity Urine pH Ur Specific [place] Urine Protein Urine Glucose (UA) Urine Ketones Urine Blood Urine Nitrate Urine Bilirubin Urine Urobilinogen Ur Leukocyte Esterase Urine RBC (Auto) Urine WBC Clumps (Auto) Urine Microscopic WBC Urine Bacteria Urine Yeast (Budding) Salicylates
[2018-03-04 12:56] LABS: BASO # 0.1 K/uL (0.0-0.2); BASO % 0.6 % (0.0-2.0); EOS # 0.5 K/uL (0.0-0.7); EOS % 2.8 % (0.0-4.0); HEMOGLOBIN 9.6 g/dL (12.0-16.0); LYMPH % 12.4 % (20.0-40.0); MEAN CELL VOLUME 88.9 fl (81.0-99.0); MEAN CORPUSCULAR HEMOGLOBIN 30.2 pg (27.0-31.0); MEAN PLATELET VOLUME 8.8 fl (7.2-11.7); MONO % 6.1 % (0.0-10.0); NEUT # 12.5 K/uL (1.8-7.0); NEUT % 78.1 % (50.0-75.0); RBC 3.16 Mil/uL (3.80-5.20); WHITE BLOOD COUNT 16.1 K/uL (4.8-10.8)
[2018-03-04 13:16] LABS: URINE BACTERIA MOD (<OCC); URINE BILIRUBIN NEGATIVE (NEGATIVE); URINE BLOOD SMALL (NEGATIVE); URINE CLARITY TURBID (Clear); URINE COLOR YELLOW (YELLOW); URINE GLUCOSE (UA) NEG (Normal); URINE LEUKOCYTE ESTERASE LARGE Leu/uL (Negative); URINE PROTEIN 100 mg/dL (NEGATIVE); URINE UROBILINOGEN 0.2-1.0 mg/dL (0.2-1.0); WBC CLUMPS MOD /hpf
[2018-03-04 13:18] LABS: ALB/GLOB RATIO 0.9 (1.0-2.1); ALBUMIN 3.2 g/dL (3.5-5.0); CALCIUM 8.7 mg/dL (8.4-10.2)
[2018-03-04] MEDS ORDERED: Sodium Chloride 0.9% 1,000 ML IV STA ×2 (13:30→13:33)
--- NOTE | 2018-03-04 15:38 | CP.PCM.HP ---
History of Present Illness - History of Present Illness History of Present Illness: 67 y/o female with PMHx of DM2, HTN, HLD, [place], CVA, LLE BKA, urinary retention and chronic back pain presented to ER c/o suprapubic pain. Pt described that suprapubic pain started 2 days ago, progressively aggravated, and worsened the most last night. Pt reports she was unable to urinate for 2 days. Pt also endorse feeling chills during last night. Pt was under the care of daughter in law who brought her to our hospital. Pt states some quantity sero-sanguineous discharge was apparent on the L lower limb dressing which was changed everyday. L lower limb pain has been controlled with medications. -To recapitulate, Patient was discharged from hospital 5 days ago with a urinary catheter in place. Pt was admitted for left foot ulcer resulting in BKA 6 weeks ago. Pt developed stroke in left-parietal occipital region, with a subacute subdural hemorrhage inferior to the temporal lobe. MRA of the head narrowing of the right cavernaous carotid artery due to calcified atherosclerotic plaque. Urinary retention also developed following now-resolved NAI course. Retention managed well with zelaya catheter placement. PMD: [facility] Meds: --Vitamin C daily, --Aspirin 81 mg PO daily, --Atorvastatin 40 mg PO HS, --Dpueuosoxte43 mg PO TID, --Carvedilol 6.25 mg PO Q12, --Clopidogrel 75 mg PO DAILY --Senokot S 2 tab PO HS, --Feosol 325 mg PO BID, --Gabapentin 100 mg PO TID, --NPH/Reg --Losartan 25 mg PO DAILY, --Mirtazapine 30 mg PO HS, --Nystatin TOP TID, --Percocet 5/325 PO Q6 PRN NKDA PMHx: DM2, HTN, HLD, TX, CVA, chronic back pain, LLE BKA, urinary retention. PSHx: catheterization, L BKA, multiple L foot Surgeries before L BKA. FH: mother due to [place] SH: former smoker-1/2 ppd for 25 years, no ETOH, no illicit drug use ED Course -CBC whoed a WBC 16.1-high, -CMP showed transaminitis, HCO3 17-low, BUN/Creat 34/1.3. -U/A showed +RBC, large Leuko esterase, +bacteria and few bacteria. -F/U Blood Cx, UCx and Wound Cx., XR Chest, EKG -IV Ceftriaxone and IV Zosyn were administered. Present on Admission - Present on Admission Any Indicators Present on Admission: Yes History of Uncontrolled Diabetes: Yes Urinary Catheter: Yes Decubitus Ulcer Present: Yes Decubitus Ulcer Location: Sacrum, R heel. Decubitus Ulcer Stage: II Review of Systems - Constitutional Constitutional: Chills. absent: Excessive Sweating, Night Sweats - EENT Eyes: absent: Change in Vision Nose/Mouth/Throat: absent: Nasal Congestion, Nasal Discharge - Cardiovascular Cardiovascular: absent: Chest Pain, Dyspnea, Edema, Palpitations - Respiratory Respiratory: absent: Dyspnea, Hemoptysis - Gastrointestinal Gastrointestinal: Abdominal Pain. absent: Coffee Ground Emesis, Excessive Flatus - Genitourinary Genitourinary: Difficulty Urinating - Neurological Neurological: absent: Abnormal Hearing, Confusion, Paresthesias, Syncope - Psychiatric Psychiatric: absent: Anhedonia, Anxiety Past Patient History - Infectious Disease Hx of Infectious Diseases: None - Tetanus Immunizations Tetanus Immunization: Unknown - Past Medical History & Family History Past Medical History?: Yes - Past Social History Alcohol: None Drugs: Denies - CARDIAC Hx Hypercholesterolemia: Yes Hx Hypertension: Yes - PULMONARY Hx Respiratory Disorders: No - NEUROLOGICAL HX Cerebrovascular Accident: Yes (left sided weakness) - HEENT Hx HEENT Problems: No - ENDOCRINE/METABOLIC Hx Diabetes Mellitus Type 2: Yes - HEMATOLOGICAL/ONCOLOGICAL Hx Blood Disorders: No - INTEGUMENTARY Hx Dermatological Problems: No - MUSCULOSKELETAL/RHEUMATOLOGICAL Hx Musculoskeletal Disorders: Yes Hx Falls: Yes (fell 6 months ago) Other/Comment: hx of chronic back pain - GASTROINTESTINAL Hx Gastrointestinal Disorders: No - GENITOURINARY/GYNECOLOGICAL Hx Genitourinary Disorders: No - PSYCHIATRIC Hx Psychophysiologic Disorder: No Hx Substance Use: No - SURGICAL HISTORY Hx Coronary Stent: Yes - ANESTHESIA Hx Malignant Hyperthermia: No Meds Allergies/Adverse Reactions: Allergies Allergy/AdvReac Type Severity Reaction Status Date / Time No Known Allergies Allergy Verified 05/14/16 14:21 Physical Exam - Constitutional Appears: No Acute Distress, Chronically Ill - Head Exam Head Exam: ATRAUMATIC - Eye Exam Eye Exam: EOMI, Normal appearance - ENT Exam ENT Exam: Mucous Membranes Moist - Neck Exam Neck exam: Positive for: Full Rom. Negative for: Lymphadenopathy, Meningismus, Tenderness - Respiratory Exam Respiratory Exam: Clear to Auscultation Bilateral, NORMAL BREATHING PATTERN. absent: Rales, Rhonchi, Wheezes - Cardiovascular Exam Cardiovascular Exam: +S1, +S2 - GI/Abdominal Exam GI & Abdominal Exam: Normal Bowel Sounds, Soft, Tenderness (Bilateral lower quadrants.) - Extremities Exam Extremities exam: Positive for: full ROM. Negative for: calf tenderness, joint swelling, pedal edema - Neurological Exam Neurological exam: Alert, Oriented x3 Results - Vital Signs Recent Vital Signs: Last Vital Signs Temp 98.3 F 03/04/18 11:48 Pulse 82 03/04/18 11:48 Resp 18 03/04/18 11:48 BP 90/52 L 03/04/18 11:48 Pulse Ox 100 03/04/18 14:15 - Labs Result Diagrams: 03/04/18 12:48 03/04/18 12:48 Labs: Laboratory Results - last 24 hr 03/04/18 03/04/18 03/04/18 12:48 12:48 12:48 WBC 16.1 H RBC 3.16 L Hgb 9.6 L Hct 28.1 L MCV 88.9 MCH 30.2 MCHC 34.0 RDW 17.0 H Plt Count 364 D MPV 8.8 Neut % (Auto) 78.1 H Lymph % (Auto) 12.4 L [place] % (Auto) 6.1 Eos % (Auto) 2.8 Baso % (Auto) 0.6 Neut # (Auto) 12.5 H Lymph # (Auto) 2.0 [place] # (Auto) 1.0 H Eos # (Auto) 0.5 Baso # (Auto) 0.1 Sodium 138 Potassium 4.9 Chloride 106 Carbon Dioxide 17 L Anion Gap 20 BUN 34 H Creatinine 1.3 H Est GFR ( Amer) 50 Est GFR (Non-Af Amer) 41 Random Glucose 136 H Calcium 8.7 Total Bilirubin 0.6 AST 47 H ALT 59 H Alkaline Phosphatase 100 Total Protein 6.9 Albumin 3.2 L D Globulin 3.7 Albumin/Globulin Ratio 0.9 L Urine Color Urine Clarity Urine pH Ur Specific [place] Urine Protein Urine Glucose (UA) Urine Ketones Urine Blood Urine Nitrate Urine Bilirubin Urine Urobilinogen Ur Leukocyte Esterase Urine RBC (Auto) Urine WBC Clumps (Auto) Urine Microscopic WBC Urine Bacteria Urine Yeast (Budding) Salicylates < 1.0 03/04/18 12:53 WBC RBC Hgb Hct MCV MCH MCHC RDW Plt Count MPV Neut % (Auto) Lymph % (Auto) [place] % (Auto) Eos % (Auto) Baso % (Auto) Neut # (Auto) Lymph # (Auto) [place] # (Auto) Eos # (Auto) Baso # (Auto) Sodium Potassium Chloride Carbon Dioxide Anion Gap BUN Creatinine Est GFR ( Amer) Est GFR (Non-Af Amer) Random Glucose Calcium Total Bilirubin AST ALT Alkaline Phosphatase Total Protein Albumin Globulin Albumin/Globulin Ratio Urine Color Yellow Urine Clarity Turbid Urine pH 6.0 Ur Specific [place] 1.009 Urine Protein 100 Urine Glucose (UA) Neg Urine Ketones Negative Urine Blood Small Urine Nitrate Negative Urine Bilirubin Negative Urine Urobilinogen 0.2-1.0 Ur Leukocyte Esterase Large Urine RBC (Auto) 23 H Urine WBC Clumps (Auto) Mod H Urine Microscopic WBC 537 H Urine Bacteria Mod H Urine Yeast (Budding) Few H Salicylates Assessment & Plan - Assessment and Plan (Free Text) Assessment: 67 y.o. F with a extensive PMHx, w/ urinary catheter in place, admitted for evaluation and management of possible catheter-associated UTI . Plan: UTI -Rule out sepsis -Zelaya catheter was on day [address] -Remove and place a new Zelaya catheter -U/A consistent with Bacteriuria. WBC 16.1-high. -No fever, VS stable. -Pro-calcitonin ordered. -IV Zosyn at ER x1. -Will continue with IV Zosyn as last UCx showed sensitivity to Zosyn. -IV Zosyn 2.25gr Q6H -F/U Blood Cx, Urine Cx and Wound Cx, tomorrow's CBC and CMP. Urinary retention: -Pt discharged on 02/26/18 with Urinary catheter in place. -Remove and place a new Zelaya catheter -Continue with home medications: Bethanechol 25mg TID PO S/P BKA -Performed on 01/24/2018 -General Surgery consulted. -Continue with wound care. S/P Hemorrhagic Stroke -02/09/18: Developed stroke in left-parietal occipital region, with a subacute subdural hemorrhage inferior to the temporal lobe. -02/16/18: MRA of the head narrowing of the right cavernaous carotid artery due to calcified atherosclerotic plaque -C/w home medications: Aspirin 81mg daily, Plavix 75mg DTI -Ulcer of sacrum: Stage II -Healing Stage I ulcer on R heel. -Wound Care Consult -Zelaya in place CKD -Calculated Creatinine Clearance 15 mL/min --> Stage IV. -C/w home medications DM -accuchecks -Insulin Detemir 20 units SC HS -Insulin Lispro 10 units SC TID Depression -C/w home med: Mirtazapine 30mg PO HTN -C/w home medications -On Losartan 25mg PO daily Anemia -Feosol 325mg BID, -Monitor H/H. Prophylaxis -Lovenox 40mg SC daily - Date & Time Date: 03/04/18 Time: 15:57
[2018-03-04 16:03] LABS: VENOUS BLOOD GAS BASE EXCESS -3.3 mmol/L (0.0-2.0); VENOUS BLOOD GAS PCO2 46 mmHg (40-60); VENOUS BLOOD GAS PO2 22 mm/Hg (30-55); VENOUS BLOOD PH 7.31 (7.32-7.43)
--- NOTE | 2018-03-04 16:26 | RAD ---
HISTORY: clearance COMPARISON: Portable chest 02/04/2018. FINDINGS: LUNGS: Prior right PICC now removed. No acute infiltrate bilaterally once again. PLEURA: No significant pleural effusion identified, no pneumothorax apparent. CARDIOVASCULAR: Normal. OSSEOUS STRUCTURES: No significant abnormalities. VISUALIZED UPPER ABDOMEN: Normal. OTHER FINDINGS: None. IMPRESSION: No interval acute cardiopulmonary disease appreciated. Prior right PICC now removed.
[2018-03-04] MEDS ORDERED: Insulin Lispro (humaLOG) 100 Units/ml Inj SC SCH (17:00)
--- NOTE | 2018-03-04 17:13 | CP.PCM.CON ---
History of Present Illness - History of Present Illness History of Present Illness: General Surgery Consult Note: Dr. Lopez 67F with PMHx DM2, HTN, HLD, OR, CVA, chronic back pain, hemorrhagic stroke, osteomyelitis, presents to [facility] ED with complaints of dysuria. Patient found to have a UTI. General surgery team consulted for wound follow up on right BKA done one 01/24/2018. At time of examination patient complained of left flank pain. Denied fever but reported chills. Right BKA stump is discolored and wound edges or surgical site are necrotic. Serous drainage noted from site. However, fluid non-purulent and did not have malodor. Patient denies any pain in the right stump. PMH: DM2, HTN, HLD, OR, CVA, chronic back pain, hemorrhagic stroke, osteomyelitis PSH: left foot surgery: partial resection of distal left 1st metatarsal, partial resection of base of proximal phalanx, excision of left tibial sesamoid and debridement of ulcers FH: [place] - mother SH: former smoker-1/2 ppd for 25 years, no ETOH, no illicit drug use Review of Systems - Review of Systems Review of Systems: 12 pt ROS unremarkable except as stated in HPI Past Patient History - Infectious Disease Hx of Infectious Diseases: None - Tetanus Immunizations Tetanus Immunization: Unknown - Past Medical History & Family History Past Medical History?: Yes - Past Social History Alcohol: None Drugs: Denies - CARDIAC Hx Hypercholesterolemia: Yes Hx Hypertension: Yes - PULMONARY Hx Respiratory Disorders: No - NEUROLOGICAL HX Cerebrovascular Accident: Yes (left sided weakness) - HEENT Hx HEENT Problems: No - ENDOCRINE/METABOLIC Hx Diabetes Mellitus Type 2: Yes - HEMATOLOGICAL/ONCOLOGICAL Hx Blood Disorders: No - INTEGUMENTARY Hx Dermatological Problems: No - MUSCULOSKELETAL/RHEUMATOLOGICAL Hx Musculoskeletal Disorders: Yes Hx Falls: Yes (fell 6 months ago) Other/Comment: hx of chronic back pain - GASTROINTESTINAL Hx Gastrointestinal Disorders: No - GENITOURINARY/GYNECOLOGICAL Hx Genitourinary Disorders: No - PSYCHIATRIC Hx Psychophysiologic Disorder: No Hx Substance Use: No - SURGICAL HISTORY Hx Coronary Stent: Yes - ANESTHESIA Hx Malignant Hyperthermia: No Meds Allergies/Adverse Reactions: Allergies Allergy/AdvReac Type Severity Reaction Status Date / Time No Known Allergies Allergy Verified 05/14/16 14:21 - Medications Medications: Current Medications Aspirin (Ecotrin) 81 mg PO DAILY [facility] Atorvastatin Calcium (Lipitor) 40 mg PO HS [facility] Bethanechol Chloride (Urecholine) 25 mg PO TID [facility] Carvedilol (Coreg) 6.25 mg PO Q12 [facility] Clopidogrel Bisulfate (Plavix) 75 mg PO DAILY [facility] Enoxaparin Sodium (Lovenox) 40 mg SC HS [facility] PRN Reason: Protocol Ferrous Sulfate (Feosol) 325 mg PO BID [facility] Gabapentin (Neurontin) 100 mg PO TID [facility] Sodium Chloride (Sodium Chloride 0.9%) 1,000 mls @ 100 mls/hr IV .Q10H STA Stop: 03/04/18 23:32 Last Admin: 03/04/18 15:45 Dose: 100 mls/hr Insulin Detemir (Levemir) 20 units SC DAILY [facility] Insulin Human Lispro (Humalog) 10 units SC TID [facility] Losartan Potassium (Cozaar) 25 mg PO DAILY [facility] Mirtazapine (Remeron) 30 mg PO HS [facility] Physical Exam - Constitutional Appears: No Acute Distress - Head Exam Head Exam: NORMOCEPHALIC - Eye Exam Eye Exam: EOMI, Normal appearance - ENT Exam ENT Exam: Mucous Membranes Moist - Respiratory Exam Respiratory Exam: NORMAL BREATHING PATTERN - Cardiovascular Exam Cardiovascular Exam: +S1, +S2 - GI/Abdominal Exam GI & Abdominal Exam: Soft - Back Exam Back exam: absent: CVA tenderness (L), CVA tenderness (R) - Neurological Exam Neurological exam: Alert, Oriented x3 - Psychiatric Exam Psychiatric exam: Normal Mood - Skin Skin Exam: Dry Additional comments: Right BKA stump has some skin discoloration throughout Wound edges are necrotic +Serous drainage noted Results - Vital Signs Recent Vital Signs: Last Vital Signs Temp 98 F 03/04/18 15:51 Pulse 74 03/04/18 15:51 Resp 18 03/04/18 15:51 BP 141/79 03/04/18 15:51 Pulse Ox 100 03/04/18 16:21 - Labs Result Diagrams: 03/04/18 12:48 03/04/18 12:48 Labs: Laboratory Results - last 24 hr 03/04/18 03/04/18 03/04/18 12:48 12:48 12:48 WBC 16.1 H RBC 3.16 L Hgb 9.6 L Hct 28.1 L MCV 88.9 MCH 30.2 MCHC 34.0 RDW 17.0 H Plt Count 364 D MPV 8.8 Neut % (Auto) 78.1 H Lymph % (Auto) 12.4 L [place] % (Auto) 6.1 Eos % (Auto) 2.8 Baso % (Auto) 0.6 Neut # (Auto) 12.5 H Lymph # (Auto) 2.0 [place] # (Auto) 1.0 H Eos # (Auto) 0.5 Baso # (Auto) 0.1 pO2 VBG pH VBG pCO2 VBG HCO3 VBG Total CO2 VBG O2 Sat (Calc) VBG Base Excess VBG Potassium Glucose Lactate FiO2 Sodium 138 Potassium 4.9 Chloride 106 Carbon Dioxide 17 L Anion Gap 20 BUN 34 H Creatinine 1.3 H Est GFR ( Amer) 50 Est GFR (Non-Af Amer) 41 Random Glucose 136 H Calcium 8.7 Total Bilirubin 0.6 AST 47 H ALT 59 H Alkaline Phosphatase 100 Total Protein 6.9 Albumin 3.2 L D Globulin 3.7 Albumin/Globulin Ratio 0.9 L Venous Blood Potassium Urine Color Urine Clarity Urine pH Ur Specific [place] Urine Protein Urine Glucose (UA) Urine Ketones Urine Blood Urine Nitrate Urine Bilirubin Urine Urobilinogen Ur Leukocyte Esterase Urine RBC (Auto) Urine WBC Clumps (Auto) Urine Microscopic WBC Urine Bacteria Urine Yeast (Budding) Salicylates < 1.0 03/04/18 03/04/18 12:53 15:57 WBC RBC Hgb Hct MCV MCH MCHC RDW Plt Count MPV Neut % (Auto) Lymph % (Auto) [place] % (Auto) Eos % (Auto) Baso % (Auto) Neut # (Auto) Lymph # (Auto) [place] # (Auto) Eos # (Auto) Baso # (Auto) pO2 22 L VBG pH 7.31 L VBG pCO2 46 VBG HCO3 20.6 VBG Total CO2 24.6 VBG O2 Sat (Calc) 43.6 VBG Base Excess -3.3 L VBG Potassium 4.9 Glucose 95 Lactate 1.4 FiO2 21.0 Sodium 136.0 Potassium Chloride 109.0 H Carbon Dioxide Anion Gap BUN Creatinine Est GFR ( Amer) Est GFR (Non-Af Amer) Random Glucose Calcium Total Bilirubin AST ALT Alkaline Phosphatase Total Protein Albumin Globulin Albumin/Globulin Ratio Venous Blood Potassium 4.9 Urine Color Yellow Urine Clarity Turbid Urine pH 6.0 Ur Specific [place] 1.009 Urine Protein 100 Urine Glucose (UA) Neg Urine Ketones Negative Urine Blood Small Urine Nitrate Negative Urine Bilirubin Negative Urine Urobilinogen 0.2-1.0 Ur Leukocyte Esterase Large Urine RBC (Auto) 23 H Urine WBC Clumps (Auto) Mod H Urine Microscopic WBC 537 H Urine Bacteria Mod H Urine Yeast (Budding) Few H Salicylates Assessment & Plan - Assessment and Plan (Free Text) Assessment: 67F s/p BKA POD 39
[2018-03-04] MEDS: Insulin Lispro (humaLOG) 100 Units/ml Inj SC SCH (17:56)
[2018-03-04] MEDS: Enoxaparin 30 mg Syringe SC SCH (22:10)
[2018-03-04] MEDS: Docusate-Senna 50 mg-8.6 mg Tab PO SCH (22:51)
--- NOTE | 2018-03-05 06:22 | CP.PCM.PN ---
Subjective - Date & Time of Evaluation Date of Evaluation: 03/05/18 Time of Evaluation: 06:50 - Subjective Subjective: Pt seen and examined at bedside. Pt denies overnight complaints or problems. Pt does express concerns for her outpatient care in regards to coordination difficulties. Objective - Vital Signs/Intake and Output Vital Signs (last 24 hours): Temp Pulse Resp BP Pulse Ox 97.4 F L 65 18 119/68 95 03/05/18 04:32 03/05/18 04:32 03/05/18 04:32 03/05/18 04:32 03/05/18 04:32 - Medications Medications: Current Medications Acetaminophen (Tylenol 325mg Tab) 650 mg PO Q6 PRN PRN Reason: Pain, moderate (4-7) Last Admin: 03/04/18 22:09 Dose: 650 mg Aspirin (Ecotrin) 81 mg PO DAILY [facility] Atorvastatin Calcium (Lipitor) 40 mg PO HS [facility] Last Admin: 03/04/18 22:12 Dose: 40 mg Bethanechol Chloride (Urecholine) 25 mg PO TID [facility] Last Admin: 03/04/18 17:55 Dose: 25 mg Carvedilol (Coreg) 6.25 mg PO Q12 [facility] Last Admin: 03/04/18 22:12 Dose: 6.25 mg Clopidogrel Bisulfate (Plavix) 75 mg PO DAILY [facility] Enoxaparin Sodium (Lovenox) 30 mg SC [facility] PRN Reason: Protocol Last Admin: 03/04/18 22:10 Dose: 30 mg Ferrous Sulfate (Feosol) 325 mg PO BID [facility] Last Admin: 03/04/18 17:58 Dose: 325 mg Gabapentin (Neurontin) 100 mg PO Q8H [facility] Last Admin: 03/04/18 22:52 Dose: 100 mg Piperacillin Sod/Tazobactam (Sod 2.25 gm/ Sodium Chloride) 100 mls @ 100 mls/ hr IVPB Q6 [facility] PRN Reason: Protocol Last Admin: 03/05/18 04:38 Dose: 100 mls/hr Insulin Detemir (Levemir) 20 units SC DAILY [facility] Insulin Human Lispro (Humalog) 10 units SC TID [facility] Last Admin: 03/04/18 17:56 Dose: 10 units Losartan Potassium (Cozaar) 25 mg PO DAILY [facility] Mirtazapine (Remeron) 30 mg PO [facility] Last Admin: 03/04/18 22:11 Dose: 30 mg Senna/Docusate Sodium (Senokot S 50 Mg-8.6 Mg) 2 tab PO HS [facility] Last Admin: 03/04/18 22:51 Dose: 2 tab - Labs Labs: 03/04/18 12:48 03/04/18 12:48 - Additional Findings Additional findings: - Constitutional Appears: No Acute Distress - ENT Exam ENT Exam: Mucous Membranes Moist - Neck Exam Neck exam: Positive for: Full Rom. Negative for: Lymphadenopathy, Meningismus, Tenderness - Respiratory Exam Respiratory Exam: Clear to Auscultation Bilateral, NORMAL BREATHING PATTERN. absent: Rales, Rhonchi, Wheezes - Cardiovascular Exam Cardiovascular Exam: RRR, +S1, +S2 - GI/Abdominal Exam GI & Abdominal Exam: Normal Bowel Sounds, Soft, Tenderness (Bilateral lower quadrants) - Extremities Exam Extremities exam: Positive for: full ROM. Negative for: calf tenderness, joint swelling, pedal edema - Neurological Exam Neurological exam: Alert, Oriented x3 Assessment and Plan - Assessment and Plan (Free Text) Assessment: 67 yo F with a PMHx, w/ urinary catheter in place, admitted for evaluation and management of possible UTI . Suprapubic pain r/o UTI -Afebrile. VSS. -Pain improved. -WBC Improved; 16.1 to 10.5 -Procalcitonin <0.05 -UA: Negative Nitrate, Large Leuk Esterase, +Bacteria, +Yeast -Current zelaya catheter day 1 ---Catheter on admission was day 8 -IV Zosyn 2.25gr Q6H; Renally dosed -f/u Blood Cx and Urine Cx Urinary retention: -Pt discharged from [facility] on 02/26/18 with Urinary catheter in place. -Remove and placed new Zelaya catheter on 03/04 -c/w home medications: Bethanechol 25mg TID S/P BKA -Performed on 01/24/2018 -f/u Wound Cx -f/u General Surgery recommendations S/P Hemorrhagic Stroke -02/09/18: Developed stroke in left-parietal occipital region, with a subacute subdural hemorrhage inferior to the temporal lobe. -02/16/18: MRA of the head narrowing of the right cavernaous carotid artery due to calcified atherosclerotic plaque -C/w home medications: Aspirin 81mg daily, Plavix 75mg DTI -Ulcer of sacrum: Stage II -Healing Stage I ulcer on R heel. -Wound Care Consult -Zelaya in place CKD -Calculated Creatinine Clearance 15 mL/min --> Stage IV. -C/w home medications DM -Insulin Detemir 20 units SC HS -Insulin Lispro 10 units SC TID -f/u FS Depression -C/w home med: Mirtazapine 30mg PO HTN -C/w home medications -On Losartan 25mg PO daily Anemia -Feosol 325mg BID, -Monitor H/H. Prophylaxis -Lovenox 30mg SC Daily; Renally dosed
[2018-03-05 06:36] LABS: HEMOGLOBIN 9.3 g/dL (12.0-16.0); MEAN CELL VOLUME 89.8 fl (81.0-99.0); MEAN CORPUSCULAR HEMOGLOBIN 29.6 pg (27.0-31.0); RBC 3.12 Mil/uL (3.80-5.20); RED CELL DISTRIBUTION WIDTH 17.3 % (11.5-14.5); WHITE BLOOD COUNT 10.5 K/uL (4.8-10.8)
[2018-03-05 07:13] LABS: ALB/GLOB RATIO 0.8 (1.0-2.1); ALBUMIN 2.9 g/dL (3.5-5.0)
[2018-03-05] MEDS: Insulin Lispro (humaLOG) 100 Units/ml Inj SC SCH ×3 (08:38→16:57)
--- NOTE | 2018-03-05 09:22 | CP.PCM.PN ---
Subjective - Date & Time of Evaluation Date of Evaluation: 03/05/18 Time of Evaluation: 09:22 - Subjective Subjective: Surgery Pt seen and examined. No acute events. c/o abd pain and stump pain. Denies fever , nausea, diarrea. Has zelaya for dysuria and urinary retention. Objective - Vital Signs/Intake and Output Vital Signs (last 24 hours): Temp Pulse Resp BP Pulse Ox 98.4 F 77 18 126/62 98 03/05/18 07:47 03/05/18 07:47 03/05/18 07:47 03/05/18 07:47 03/05/18 07:47 - Medications Medications: Current Medications Acetaminophen (Tylenol 325mg Tab) 650 mg PO Q6 PRN PRN Reason: Pain, moderate (4-7) Last Admin: 03/04/18 22:09 Dose: 650 mg Aspirin (Ecotrin) 81 mg PO DAILY [facility] Atorvastatin Calcium (Lipitor) 40 mg PO HS [facility] Last Admin: 03/04/18 22:12 Dose: 40 mg Bethanechol Chloride (Urecholine) 25 mg PO TID [facility] Last Admin: 03/04/18 17:55 Dose: 25 mg Carvedilol (Coreg) 6.25 mg PO Q12 [facility] Last Admin: 03/04/18 22:12 Dose: 6.25 mg Clopidogrel Bisulfate (Plavix) 75 mg PO DAILY [facility] Enoxaparin Sodium (Lovenox) 30 mg SC HS [facility] PRN Reason: Protocol Last Admin: 03/04/18 22:10 Dose: 30 mg Ferrous Sulfate (Feosol) 325 mg PO BID [facility] Last Admin: 03/04/18 17:58 Dose: 325 mg Gabapentin (Neurontin) 100 mg PO Q8H [facility] Last Admin: 03/04/18 22:52 Dose: 100 mg Piperacillin Sod/Tazobactam (Sod 2.25 gm/ Sodium Chloride) 100 mls @ 100 mls/ hr IVPB Q6 [facility] PRN Reason: Protocol Last Admin: 03/05/18 04:38 Dose: 100 mls/hr Insulin Detemir (Levemir) 20 units SC DAILY [facility] Insulin Human Lispro (Humalog) 10 units SC TID [facility] Last Admin: 03/04/18 17:56 Dose: 10 units Losartan Potassium (Cozaar) 25 mg PO DAILY [facility] Mirtazapine (Remeron) 30 mg PO HS [facility] Last Admin: 03/04/18 22:11 Dose: 30 mg Senna/Docusate Sodium (Senokot S 50 Mg-8.6 Mg) 2 tab PO [facility] Last Admin: 03/04/18 22:51 Dose: 2 tab - Labs Labs: 03/05/18 05:31 03/05/18 05:31 - Constitutional Appears: No Acute Distress - Head Exam Head Exam: ATRAUMATIC, NORMAL INSPECTION, NORMOCEPHALIC - Eye Exam Eye Exam: EOMI, Normal appearance, PERRL Pupil Exam: NORMAL ACCOMODATION, PERRL - ENT Exam ENT Exam: Mucous Membranes Moist, Normal Exam - Neck Exam Neck Exam: Full ROM, Normal Inspection. absent: Lymphadenopathy - Respiratory Exam Respiratory Exam: Clear to Ausculation Bilateral, NORMAL BREATHING PATTERN - Cardiovascular Exam Cardiovascular Exam: REGULAR RHYTHM, +S1, +S2. absent: Murmur - GI/Abdominal Exam GI & Abdominal Exam: Soft, Normal Bowel Sounds. absent: Distended, Tenderness - Exam Exam: NORMAL INSPECTION (zelaya inplace) - Extremities Exam Extremities Exam: absent: Full ROM, Normal Inspection Additional comments: R BKA stump necrotic. warm - Back Exam Back Exam: NORMAL INSPECTION - Neurological Exam Neurological Exam: Alert, Awake, CN II-XII Intact, Oriented x3 - Psychiatric Exam Psychiatric exam: Normal Affect, Normal Mood - Skin Skin Exam: Warm. absent: Intact, Normal Color Assessment and Plan - Assessment and Plan (Free Text) Assessment: Necrotic R BKA stump. -will plan on AKA -Hold anticoagulation -ABX -VERNA Christian
--- NOTE | 2018-03-05 09:35 | RAD ---
HISTORY: suprapubic pain/Constipation COMPARISON: No prior. FINDINGS: BOWEL: Normal. No obstruction. No free air. BONES: Normal. OTHER FINDINGS: None. IMPRESSION: No active disease.
[2018-03-05] MEDS: Insulin Detemir 100 Units/ml Inj SC SCH (10:37)
[2018-03-05] MEDS: Docusate-Senna 50 mg-8.6 mg Tab PO SCH (21:07)
[2018-03-05] MEDS: Enoxaparin 30 mg Syringe SC SCH (21:08)
--- NOTE | 2018-03-06 07:30 | CP.PCM.PN ---
Subjective - Date & Time of Evaluation Date of Evaluation: 03/06/18 Time of Evaluation: 07:00 - Subjective Subjective: 67 y/o F evaluated and examined by bedside. Pt had a headache overnight, her BP was elevated; Hydralazine was administered which improved BP and helped with headache. Pt c/o L limb pain that is transiently relieved with medication. Pt reports NOT having abdominal pain anymore. Pt afebrile, tolerating PO. Objective - Vital Signs/Intake and Output Vital Signs (last 24 hours): Temp Pulse Resp BP Pulse Ox 97.6 F 92 H 20 155/84 H 98 03/06/18 05:15 03/06/18 05:15 03/06/18 05:15 03/06/18 05:15 03/06/18 05:15 Intake and Output: 03/06/18 03/06/18 06:59 18:59 Intake Total 2400 Output Total 3500 Balance -1100 - Medications Medications: Current Medications Acetaminophen (Tylenol 325mg Tab) 650 mg PO Q6 PRN PRN Reason: Pain, moderate (4-7) Last Admin: 03/05/18 22:19 Dose: 650 mg Aspirin (Ecotrin) 81 mg PO DAILY [facility] Last Admin: 03/05/18 10:36 Dose: 81 mg Atorvastatin Calcium (Lipitor) 40 mg PO HS [facility] Last Admin: 03/05/18 21:08 Dose: 40 mg Bethanechol Chloride (Urecholine) 25 mg PO TID [facility] Last Admin: 03/05/18 18:57 Dose: 25 mg Carvedilol (Coreg) 6.25 mg PO Q12 [facility] Last Admin: 03/05/18 21:08 Dose: 6.25 mg Clopidogrel Bisulfate (Plavix) 75 mg PO DAILY [facility] Last Admin: 03/05/18 10:34 Dose: 75 mg Enoxaparin Sodium (Lovenox) 30 mg SC HS [facility] PRN Reason: Protocol Last Admin: 03/05/18 21:08 Dose: 30 mg Ferrous Sulfate (Feosol) 325 mg PO BID [facility] Last Admin: 03/05/18 18:57 Dose: 325 mg Gabapentin (Neurontin) 100 mg PO Q8H [facility] Last Admin: 03/06/18 05:09 Dose: 100 mg Piperacillin Sod/Tazobactam (Sod 2.25 gm/ Sodium Chloride) 100 mls @ 100 mls/ hr IVPB Q6 [facility] PRN Reason: Protocol Last Admin: 03/06/18 05:09 Dose: 100 mls/hr Insulin Detemir (Levemir) 20 units SC DAILY [facility] Last Admin: 03/05/18 10:37 Dose: 20 units Insulin Human Lispro (Humalog) 10 units SC TID [facility] Last Admin: 03/05/18 16:57 Dose: 10 units Losartan Potassium (Cozaar) 25 mg PO DAILY [facility] Last Admin: 03/05/18 10:35 Dose: 25 mg Mirtazapine (Remeron) 30 mg PO [facility] Last Admin: 03/05/18 21:07 Dose: 30 mg Senna/Docusate Sodium (Senokot S 50 Mg-8.6 Mg) 2 tab PO [facility] Last Admin: 03/05/18 21:07 Dose: Not Given - Labs Labs: 03/05/18 05:31 03/05/18 05:31 - Constitutional Appears: No Acute Distress, Cachectic - Head Exam Head Exam: ATRAUMATIC - Eye Exam Eye Exam: EOMI - ENT Exam ENT Exam: Mucous Membranes Moist - Neck Exam Neck Exam: Full ROM - Respiratory Exam Respiratory Exam: Clear to Ausculation Bilateral, NORMAL BREATHING PATTERN - Cardiovascular Exam Cardiovascular Exam: +S1, +S2 - GI/Abdominal Exam GI & Abdominal Exam: Soft, Normal Bowel Sounds. absent: Distended, Tenderness, Hernia - Extremities Exam Extremities Exam: absent: Calf Tenderness, Pedal Edema Additional comments: LLE limb: tender, on a clean and dry dressing. - Neurological Exam Neurological Exam: Alert, Awake, Oriented x3 Assessment and Plan - Assessment and Plan (Free Text) Assessment: 67 yo F with a PMHx, w/ urinary catheter in place, admitted for evaluation and management of possible UTI . Suprapubic pain r/o UTI -Afebrile. VSS. -Pain improved. -WBC Improved; 16.1 to 10.5 -Procalcitonin <0.05 -UA: Negative Nitrate, Large Leuk Esterase, +Bacteria, +Yeast -Current zelaya catheter day 2 ---Catheter on admission was day 8 -IV Zosyn 2.25gr Q6H; Renally dosed -Urine Cx: Klebsiella ESBL-sensitive to Zosyn. S/P BKA -Performed on 01/24/2018 -Wound Cx: Acinetobacter B. sensitive to Zosyn. -General Surgery planning a possible AKA. -Cardiology Consult for pre-op clearance. Urinary retention: -Pt discharged from [facility] on 02/26/18 with Urinary catheter in place. -Remove and placed new Zelaya catheter on 03/04 -c/w home medications: Bethanechol 25mg TID S/P Hemorrhagic Stroke -02/09/18: Developed stroke in left-parietal occipital region, with a subacute subdural hemorrhage inferior to the temporal lobe. -02/16/18: MRA of the head narrowing of the right cavernaous carotid artery due to calcified atherosclerotic plaque -C/w home medications: Aspirin 81mg daily, Plavix 75mg DTI -Ulcer of sacrum: Stage II -Healing Stage I ulcer on R heel. -Wound Care Consult -Zelaya in place CKD -Calculated Creatinine Clearance 15 mL/min --> Stage IV. -C/w home medications DM -Insulin Detemir 20 units SC HS -Insulin Lispro 10 units SC TID -f/u FS Depression -C/w home med: Mirtazapine 30mg PO HTN -C/w home medications -On Losartan 25mg PO daily Anemia -Feosol 325mg BID, -Monitor H/H. Prophylaxis -Lovenox 30mg SC Daily; Renally dosed
--- NOTE | 2018-03-06 07:52 | CP.PCM.PN ---
Subjective - Date & Time of Evaluation Date of Evaluation: 03/06/18 Time of Evaluation: 07:50 - Subjective Subjective: SURGERY NOTE FOR DR. COLON 67F seen and examined at bedside. Patient is resting comfortably. Minimal pain in the site of amputation. Objective - Vital Signs/Intake and Output Vital Signs (last 24 hours): Temp Pulse Resp BP Pulse Ox 97.6 F 92 H 20 155/84 H 98 03/06/18 05:15 03/06/18 05:15 03/06/18 05:15 03/06/18 05:15 03/06/18 05:15 Intake and Output: 03/06/18 03/06/18 06:59 18:59 Intake Total 2400 Output Total 3500 Balance -1100 - Medications Medications: Current Medications Acetaminophen (Tylenol 325mg Tab) 650 mg PO Q6 PRN PRN Reason: Pain, moderate (4-7) Last Admin: 03/05/18 22:19 Dose: 650 mg Aspirin (Ecotrin) 81 mg PO DAILY [facility] Last Admin: 03/05/18 10:36 Dose: 81 mg Atorvastatin Calcium (Lipitor) 40 mg PO HS [facility] Last Admin: 03/05/18 21:08 Dose: 40 mg Bethanechol Chloride (Urecholine) 25 mg PO TID [facility] Last Admin: 03/05/18 18:57 Dose: 25 mg Carvedilol (Coreg) 6.25 mg PO Q12 [facility] Last Admin: 03/05/18 21:08 Dose: 6.25 mg Clopidogrel Bisulfate (Plavix) 75 mg PO DAILY [facility] Last Admin: 03/05/18 10:34 Dose: 75 mg Enoxaparin Sodium (Lovenox) 30 mg SC HS [facility] PRN Reason: Protocol Last Admin: 03/05/18 21:08 Dose: 30 mg Ferrous Sulfate (Feosol) 325 mg PO BID [facility] Last Admin: 03/05/18 18:57 Dose: 325 mg Gabapentin (Neurontin) 100 mg PO Q8H [facility] Last Admin: 03/06/18 05:09 Dose: 100 mg Piperacillin Sod/Tazobactam (Sod 2.25 gm/ Sodium Chloride) 100 mls @ 100 mls/ hr IVPB Q6 [facility] PRN Reason: Protocol Last Admin: 03/06/18 05:09 Dose: 100 mls/hr Insulin Detemir (Levemir) 20 units SC DAILY [facility] Last Admin: 03/05/18 10:37 Dose: 20 units Insulin Human Lispro (Humalog) 10 units SC TID [facility] Last Admin: 03/05/18 16:57 Dose: 10 units Losartan Potassium (Cozaar) 25 mg PO DAILY [facility] Last Admin: 03/05/18 10:35 Dose: 25 mg Mirtazapine (Remeron) 30 mg PO [facility] Last Admin: 03/05/18 21:07 Dose: 30 mg Senna/Docusate Sodium (Senokot S 50 Mg-8.6 Mg) 2 tab PO [facility] Last Admin: 03/05/18 21:07 Dose: Not Given - Labs Labs: 03/05/18 05:31 03/05/18 05:31 - Constitutional Appears: Non-toxic, No Acute Distress - Respiratory Exam Respiratory Exam: Clear to Ausculation Bilateral, NORMAL BREATHING PATTERN - Cardiovascular Exam Cardiovascular Exam: REGULAR RHYTHM, +S1, +S2 - GI/Abdominal Exam GI & Abdominal Exam: Soft. absent: Distended, Firm, Guarding, Rigid, Tenderness , Rebound - Extremities Exam Additional comments: left BKA site incision is necrotic Stump is warm to touch and slightly purple - Neurological Exam Neurological Exam: Awake Assessment and Plan - Assessment and Plan (Free Text) Assessment: 67F s/p left BKA POD 41. Necrotic incision. Plan: -Anticoags held - Pre-op for possible OR - Plan AKA Further recs discuss with Dr. Gino Hill, PGY2
[2018-03-06] MEDS: Insulin Lispro (humaLOG) 100 Units/ml Inj SC SCH ×3 (09:07→17:53)
[2018-03-06] MEDS: Insulin Detemir 100 Units/ml Inj SC SCH (09:08)
--- NOTE | 2018-03-06 20:43 | CP.PCM.PCO ---
Assessment/Plan - Assessment and Plan (Free Text) Plan: 67 YO F admitted for UTI started compliaining of sudden onset of severe headache 08/03. Nurse called story writer. Came to see and evaluate patient. Patient had one episode of vomiting non bloody non bilious Vitals : Stable Gen: Patient seen grabbing her head in pain CVS:s1s2 heard, Resp: CTAB, no W/R/R Abd: epgastric tenderness noted, soft, no guarding Neuro: Cranial nerves intact, moving all extremities. No facial droop. Pupils equal round and reactive A/P Morphine 2mg x [address] head stat - Will reassess pain
--- NOTE | 2018-03-06 21:05 | CT ---
EXAM: CT Head Without Intravenous Contrast CLINICAL HISTORY: 67 years old, female; Pain; Headache; Other: Severe headache TECHNIQUE: Axial computed tomography images of the head/brain without intravenous contrast. All CT scans at this facility use one or more dose reduction techniques, viz.: automated exposure control; ma/kV adjustment per patient size (including targeted exams where dose is matched to indication; i.e. head); or iterative reconstruction technique. Coronal and sagittal reformatted images were created and reviewed. COMPARISON: CT - HEAD W/O CONTRAST 2018-02-25 11:34 FINDINGS: Brain: [id number] atrophy. No intracranial hemorrhage. No mass. Few scattered foci of decreased attenuation within periventricular/subcortical white matter. Probable chronic lacunar infarct about LEFT basal ganglia. No definite edema. Ventricles: No hydrocephalus. Bones/joints: No acute fracture. Soft tissues: Unremarkable. Vasculature: Atherosclerotic disease of intracranial arteries. Sinuses: Scattered mild mucosal thickening of ethmoid sinuses. [id number] opacification/fluid of RIGHT maxillary sinus. Mastoid air cells: No mastoid effusion. Orbits: Unremarkable as visualized. IMPRESSION: 1. Nonspecific white matter changes. Acute infarction may be CT occult within first 24 hours. If a focal deficit persists, consider followup CT or MRI for further evaluation. 2. Sinus disease. 3. Incidental/non-acute findings are described above.
[2018-03-06] MEDS: Enoxaparin 30 mg Syringe SC SCH (21:48)
[2018-03-06] MEDS: Docusate-Senna 50 mg-8.6 mg Tab PO SCH (21:54)
[2018-03-07 06:36] LABS: BASO # 0.1 K/uL (0.0-0.2); EOS # 0.4 K/uL (0.0-0.7); EOS % 4.4 % (0.0-4.0); HEMOGLOBIN 9.3 g/dL (12.0-16.0); LYMPH # 2.2 K/uL (1.0-4.3); LYMPH % 21.7 % (20.0-40.0); MEAN CELL VOLUME 88.5 fl (81.0-99.0); MEAN CORPUSCULAR HEMOGLOBIN 29.3 pg (27.0-31.0); MEAN CORPUSCULAR HGB CONC 33.1 g/dL (33.0-37.0); MONO # 0.8 K/uL (0.0-0.8); MONO % 8.3 % (0.0-10.0); NEUT # 6.5 K/uL (1.8-7.0); NEUT % 64.6 % (50.0-75.0); RBC 3.17 Mil/uL (3.80-5.20); RED CELL DISTRIBUTION WIDTH 16.9 % (11.5-14.5)
--- NOTE | 2018-03-07 06:55 | CP.PCM.PN ---
Subjective - Date & Time of Evaluation Date of Evaluation: 03/07/18 Time of Evaluation: 06:54 - Subjective Subjective: 67 y/o F evaluated and examined by bedside. Pt reports feeling well now, pain on L BKA is mild, NO abdominal and NO urinary complaints. Pt had a bad headache , generalized body aches and 1 NBNB vomiting episode last night. Pt was given Reglan IV and Morphine IV. Pt afebrile, toleraring PO. Objective - Vital Signs/Intake and Output Vital Signs (last 24 hours): Temp Pulse Resp BP Pulse Ox 97.3 F L 85 18 126/72 99 03/07/18 05:14 03/07/18 05:14 03/07/18 05:14 03/07/18 05:14 03/07/18 05:14 Intake and Output: 03/06/18 03/07/18 18:59 06:59 Intake Total 1380 Output Total 3650 Balance -2270 - Medications Medications: Current Medications Acetaminophen (Tylenol 325mg Tab) 650 mg PO Q6 PRN PRN Reason: Pain, moderate (4-7) Last Admin: 03/06/18 17:51 Dose: 650 mg Aspirin (Ecotrin) 81 mg PO DAILY [facility] Last Admin: 03/05/18 10:36 Dose: 81 mg Atorvastatin Calcium (Lipitor) 40 mg PO HS [facility] Last Admin: 03/06/18 21:49 Dose: 40 mg Bethanechol Chloride (Urecholine) 25 mg PO TID [facility] Last Admin: 03/06/18 16:03 Dose: 25 mg Carvedilol (Coreg) 6.25 mg PO Q12 [facility] Last Admin: 03/06/18 21:50 Dose: 6.25 mg Clopidogrel Bisulfate (Plavix) 75 mg PO DAILY [facility] Last Admin: 03/05/18 10:34 Dose: 75 mg Enoxaparin Sodium (Lovenox) 30 mg SC HS [facility] PRN Reason: Protocol Last Admin: 03/06/18 21:48 Dose: 30 mg Ferrous Sulfate (Feosol) 325 mg PO BID [facility] Last Admin: 03/06/18 16:03 Dose: 325 mg Gabapentin (Neurontin) 100 mg PO Q8H [facility] Last Admin: 03/07/18 06:08 Dose: 100 mg Piperacillin Sod/Tazobactam (Sod 2.25 gm/ Sodium Chloride) 100 mls @ 100 mls/ hr IVPB Q6 [facility] PRN Reason: Protocol Last Admin: 03/07/18 05:08 Dose: 100 mls/hr Insulin Detemir (Levemir) 20 units SC DAILY [facility] Last Admin: 03/06/18 09:08 Dose: 20 units Insulin Human Lispro (Humalog) 10 units SC TID [facility] Last Admin: 03/06/18 17:53 Dose: 10 units Losartan Potassium (Cozaar) 25 mg PO DAILY [facility] Last Admin: 03/06/18 09:06 Dose: 25 mg Mirtazapine (Remeron) 30 mg PO [facility] Last Admin: 03/06/18 21:52 Dose: 30 mg Senna/Docusate Sodium (Senokot S 50 Mg-8.6 Mg) 2 tab PO [facility] Last Admin: 03/06/18 21:54 Dose: Not Given - Labs Labs: 03/07/18 06:24 03/05/18 05:31 - Constitutional Appears: Cachectic, Chronically Ill - Head Exam Head Exam: NORMAL INSPECTION - Eye Exam Eye Exam: EOMI - ENT Exam ENT Exam: Mucous Membranes Moist - Neck Exam Neck Exam: Full ROM. absent: Meningismus - Respiratory Exam Respiratory Exam: Clear to Ausculation Bilateral, NORMAL BREATHING PATTERN - Cardiovascular Exam Cardiovascular Exam: +S1, +S2 - GI/Abdominal Exam GI & Abdominal Exam: Soft, Normal Bowel Sounds. absent: Guarding, Rigid, Tenderness - Extremities Exam Extremities Exam: Full ROM. absent: Joint Swelling Additional comments: Left lower limb: dressing is clean, dry and intact. - Neurological Exam Neurological Exam: Alert, Awake, Oriented x3 - Psychiatric Exam Psychiatric exam: Normal Mood Assessment and Plan - Assessment and Plan (Free Text) Assessment: 67 yo F with a extensive PMHx, w/ urinary catheter in place, admitted for evaluation and management of UTI . Severe Headache -S/P hemorrhagic stroke 2 months ago. -Head CT on 03/06/18: non-specific white matter changes. -S/P Reglan IV 1x and Morphine 2mg x1, yesterday. -F/U symptoms. -Considering repeat Head CT or Brain MRI, if persistent headache or focal symptoms develop. (It takes ~24 hrs to notice changes on Head CT) S/P BKA -Performed on 01/24/2018 -Wound Cx: Acinetobacter B. sensitive to Zosyn. -General Surgery to perform AKA on 03/09/18. -Cardiology cleared patient for Surgery. Suprapubic pain r/o UTI -Afebrile. VSS. -Pain improved. -Current zelaya catheter day 3 -Urine Cx: Klebsiella ESBL-sensitive to Zosyn. -IV Zosyn 2.25gr Q6H; Renally dosed, Day 4. Urinary retention: -Pt discharged from [facility] on 02/26/18 with Urinary catheter in place. -Remove and placed new Zelaya catheter on 03/04 -c/w home medications: Bethanechol 25mg TID S/P Hemorrhagic Stroke -02/09/18: Developed stroke in left-parietal occipital region, with a subacute subdural hemorrhage inferior to the temporal lobe. -02/16/18: MRA of the head narrowing of the right cavernous carotid artery due to calcified atherosclerotic plaque -C/w home medications: Aspirin 81mg daily, Plavix 75mg DTI -Ulcer of sacrum: Stage [id number]. -Healing Stage I ulcer on R heel. -Wound Care Consult -Zelaya in place CKD -Calculated Creatinine Clearance 15 mL/min --> Stage IV. -C/w home medications DM -Insulin Detemir 20 units SC HS -Insulin Lispro 10 units SC TID -f/u FS Depression -C/w home med: Mirtazapine 30mg PO HTN -C/w home medications -On Losartan 25mg PO daily Anemia -Feosol 325mg BID, -Monitor H/H. Prophylaxis -Lovenox 30mg SC Daily; Renally dosed
[2018-03-07 07:00] LABS: ALB/GLOB RATIO 0.9 (1.0-2.1); ALBUMIN 3.1 g/dL (3.5-5.0)
--- NOTE | 2018-03-07 07:28 | CP.PCM.PN ---
Subjective - Date & Time of Evaluation Date of Evaluation: 03/07/18 Time of Evaluation: 07:26 - Subjective Subjective: General Surgery Note for Dr. Christian 67F with previous L BKA seen and examined at bedside this AM. Is AAO x 3 and NAD , resting comfortably in bed. Denies any current pain to the amputation site. Objective - Vital Signs/Intake and Output Vital Signs (last 24 hours): Temp Pulse Resp BP Pulse Ox 97.3 F L 85 18 126/72 99 03/07/18 05:14 03/07/18 05:14 03/07/18 05:14 03/07/18 05:14 03/07/18 05:14 Intake and Output: 03/07/18 03/07/18 06:59 18:59 Intake Total 1380 Output Total 3650 Balance -2270 - Medications Medications: Current Medications Acetaminophen (Tylenol 325mg Tab) 650 mg PO Q6 PRN PRN Reason: Pain, moderate (4-7) Last Admin: 03/06/18 17:51 Dose: 650 mg Aspirin (Ecotrin) 81 mg PO DAILY [facility] Last Admin: 03/05/18 10:36 Dose: 81 mg Atorvastatin Calcium (Lipitor) 40 mg PO HS [facility] Last Admin: 03/06/18 21:49 Dose: 40 mg Bethanechol Chloride (Urecholine) 25 mg PO TID [facility] Last Admin: 03/06/18 16:03 Dose: 25 mg Carvedilol (Coreg) 6.25 mg PO Q12 [facility] Last Admin: 03/06/18 21:50 Dose: 6.25 mg Clopidogrel Bisulfate (Plavix) 75 mg PO DAILY [facility] Last Admin: 03/05/18 10:34 Dose: 75 mg Enoxaparin Sodium (Lovenox) 30 mg SC HS [facility] PRN Reason: Protocol Last Admin: 03/06/18 21:48 Dose: 30 mg Ferrous Sulfate (Feosol) 325 mg PO BID [facility] Last Admin: 03/06/18 16:03 Dose: 325 mg Gabapentin (Neurontin) 100 mg PO Q8H [facility] Last Admin: 03/07/18 06:08 Dose: 100 mg Piperacillin Sod/Tazobactam (Sod 2.25 gm/ Sodium Chloride) 100 mls @ 100 mls/ hr IVPB Q6 [facility] PRN Reason: Protocol Last Admin: 05/14/18 05:08 Dose: 100 mls/hr Insulin Detemir (Levemir) 20 units SC DAILY [facility] Last Admin: 03/06/18 09:08 Dose: 20 units Insulin Human Lispro (Humalog) 10 units SC TID [facility] Last Admin: 03/06/18 17:53 Dose: 10 units Losartan Potassium (Cozaar) 25 mg PO DAILY [facility] Last Admin: 03/06/18 09:06 Dose: 25 mg Mirtazapine (Remeron) 30 mg PO [facility] Last Admin: 03/06/18 21:52 Dose: 30 mg Senna/Docusate Sodium (Senokot S 50 Mg-8.6 Mg) 2 tab PO [facility] Last Admin: 03/06/18 21:54 Dose: Not Given - Labs Labs: 03/07/18 06:24 03/07/18 06:24 - Constitutional Appears: Well, Non-toxic, No Acute Distress - Head Exam Head Exam: ATRAUMATIC, NORMOCEPHALIC - Eye Exam Eye Exam: EOMI, PERRL - Respiratory Exam Respiratory Exam: NORMAL BREATHING PATTERN. absent: Respiratory Distress - Extremities Exam Additional comments: left BKA site is necrotic distally along margins of incision line Retention sutures still in place - Neurological Exam Neurological Exam: Alert, Awake, Oriented x3 - Psychiatric Exam Psychiatric exam: Normal Affect, Normal Mood Assessment and Plan - Assessment and Plan (Free Text) Assessment: 67F seen 6 weeks s/p left BKA with necrotic stump Plan: Anticoags held except Lovenox Consistent carbohydrate diet Patient for AKA with Dr. Christian on 03/09
[2018-03-07] MEDS: Insulin Detemir 100 Units/ml Inj SC SCH (08:41)
[2018-03-07] MEDS: Insulin Lispro (humaLOG) 100 Units/ml Inj SC SCH ×3 (08:41→16:00)
--- NOTE | 2018-03-07 09:40 | PN ---
DATE: 03/06/2018 The wound itself looks somewhat necrotic and will need to be revised. We will discuss timing, it will be in the next several days. I do not think it is an emergency and it will probably be an above the knee. Dario Christian MD
--- NOTE | 2018-03-07 09:45 | CP.PCM.CON ---
History of Present Illness - History of Present Illness History of Present Illness: 67 y/o female s/p BKA Now needs AKA PMH: CAD, CVA, Diabetes, HTN, Hypercholesterolemia - Surgical History Surgical History: Coronary Stent Other surgeries: Left BKA EKG: NSR Pt denies chest pain/SOB/ABREU/palpitations Past Patient History - Infectious Disease Hx of Infectious Diseases: None - Tetanus Immunizations Tetanus Immunization: Unknown - Past Medical History & Family History Past Medical History?: Yes - Past Social History Smoking Status: Never Smoked - CARDIAC Hx Cardiac Disorders: Yes Hx Hypercholesterolemia: Yes Hx Hypertension: Yes - PULMONARY Hx Respiratory Disorders: No - NEUROLOGICAL Hx Neurological Disorder: Yes HX Cerebrovascular Accident: Yes (left sided weakness) - HEENT Hx HEENT Problems: No - RENAL Hx Chronic Kidney Disease: No - ENDOCRINE/METABOLIC Hx Endocrine Disorders: Yes Hx Diabetes Mellitus Type 2: Yes - HEMATOLOGICAL/ONCOLOGICAL Hx Blood Disorders: No Hx AIDS: No Hx Human Immunodeficiency Virus (HIV): No - INTEGUMENTARY Hx Dermatological Problems: No - MUSCULOSKELETAL/RHEUMATOLOGICAL Hx Musculoskeletal Disorders: Yes Hx Falls: Yes (fell 6 months ago) Other/Comment: hx of chronic back pain - GASTROINTESTINAL Hx Gastrointestinal Disorders: No - GENITOURINARY/GYNECOLOGICAL Hx Genitourinary Disorders: No - PSYCHIATRIC Hx Psychophysiologic Disorder: No Hx Substance Use: No - SURGICAL HISTORY Hx Surgeries: Yes Hx Coronary Stent: Yes - ANESTHESIA Hx Anesthesia: Yes Hx Anesthesia Reactions: No Hx Malignant Hyperthermia: No Has any member of the family had a problem w/ anesthesia?: No Meds Allergies/Adverse Reactions: Allergies Allergy/AdvReac Type Severity Reaction Status Date / Time No Known Allergies Allergy Verified 05/14/16 14:21 - Medications Medications: Current Medications Acetaminophen (Tylenol 325mg Tab) 650 mg PO Q6 PRN PRN Reason: Pain, moderate (4-7) Last Admin: 03/06/18 17:51 Dose: 650 mg Aspirin (Ecotrin) 81 mg PO DAILY [facility] Last Admin: 03/05/18 10:36 Dose: 81 mg Atorvastatin Calcium (Lipitor) 40 mg PO HS [facility] Last Admin: 03/06/18 21:49 Dose: 40 mg Bethanechol Chloride (Urecholine) 25 mg PO TID [facility] Last Admin: 03/07/18 08:40 Dose: 25 mg Carvedilol (Coreg) 6.25 mg PO Q12 [facility] Last Admin: 03/07/18 08:39 Dose: 6.25 mg Clopidogrel Bisulfate (Plavix) 75 mg PO DAILY [facility] Last Admin: 03/05/18 10:34 Dose: 75 mg Enoxaparin Sodium (Lovenox) 30 mg SC [facility] PRN Reason: Protocol Last Admin: 03/06/18 21:48 Dose: 30 mg Ferrous Sulfate (Feosol) 325 mg PO BID [facility] Last Admin: 03/07/18 08:40 Dose: 325 mg Gabapentin (Neurontin) 100 mg PO Q8H [facility] Last Admin: 03/07/18 06:08 Dose: 100 mg Piperacillin Sod/Tazobactam (Sod 2.25 gm/ Sodium Chloride) 100 mls @ 100 mls/ hr IVPB Q6 [facility] PRN Reason: Protocol Last Admin: 03/07/18 05:08 Dose: 100 mls/hr Insulin Detemir (Levemir) 20 units SC DAILY [facility] Last Admin: 03/07/18 08:41 Dose: 20 units Insulin Human Lispro (Humalog) 10 units SC TID [facility] Last Admin: 03/07/18 08:41 Dose: 10 units Losartan Potassium (Cozaar) 25 mg PO DAILY [facility] Last Admin: 03/07/18 08:40 Dose: 25 mg Mirtazapine (Remeron) 30 mg PO [facility] Last Admin: 03/06/18 21:52 Dose: 30 mg Senna/Docusate Sodium (Senokot S 50 Mg-8.6 Mg) 2 tab PO [facility] Last Admin: 03/06/18 21:54 Dose: Not Given Physical Exam - Respiratory Exam Respiratory Exam: NORMAL BREATHING PATTERN - Cardiovascular Exam Cardiovascular Exam: REGULAR RHYTHM Results - Vital Signs Recent Vital Signs: Last Vital Signs Temp 97.9 F 03/07/18 08:22 Pulse 83 03/07/18 09:00 Resp 18 03/07/18 08:22 BP 153/79 H 03/07/18 08:40 Pulse Ox 96 03/07/18 08:22 - Labs Result Diagrams: 03/07/18 06:24 03/07/18 06:24 Labs: Laboratory Results - last 24 hr 03/06/18 03/06/18 03/06/18 11:08 17:20 21:26 WBC RBC Hgb Hct MCV MCH MCHC RDW Plt Count MPV Neut % (Auto) Lymph % (Auto) Yancey % (Auto) Eos % (Auto) Baso % (Auto) Neut # (Auto) Lymph # (Auto) Yancey # (Auto) Eos # (Auto) Baso # (Auto) Sodium Potassium Chloride Carbon Dioxide Anion Gap BUN Creatinine Est GFR ( Amer) Est GFR (Non-Af Amer) POC Glucose (mg/dL) 320 H 168 H 230 H Random Glucose Calcium Total Bilirubin AST ALT Alkaline Phosphatase Total Protein Albumin Globulin Albumin/Globulin Ratio 03/07/18 03/07/18 03/07/18 05:52 06:24 06:24 WBC 10.0 RBC 3.17 L Hgb 9.3 L Hct 28.1 L MCV 88.5 MCH 29.3 MCHC 33.1 RDW 16.9 H Plt Count 316 MPV 9.0 Neut % (Auto) 64.6 Lymph % (Auto) 21.7 Yancey % (Auto) 8.3 Eos % (Auto) 4.4 H Baso % (Auto) 1.0 Neut # (Auto) 6.5 Lymph # (Auto) 2.2 Yancey # (Auto) 0.8 Eos # (Auto) 0.4 Baso # (Auto) 0.1 Sodium 145 Potassium 4.3 Chloride 112 H Carbon Dioxide 21 L Anion Gap 16 BUN 24 H Creatinine 1.2 Est GFR ( Amer) 54 Est GFR (Non-Af Amer) 45 POC Glucose (mg/dL) 139 H Random Glucose 154 H Calcium 9.0 Total Bilirubin 0.3 AST 37 H D ALT 51 Alkaline Phosphatase 103 Total Protein 6.4 Albumin 3.1 L Globulin 3.3 Albumin/Globulin Ratio 0.9 L Assessment & Plan (1) CAD (coronary artery disease) Assessment and Plan: The patient is cleared for surgery Status: Acute (2) CVA (cerebral vascular accident) Status: Acute (3) S/P BKA (below knee amputation) Status: Acute
[2018-03-07] MEDS ORDERED: Dextrose 50% SYRINGE Inj (50 ml) ONE (15:45)
[2018-03-07] MEDS ORDERED: Dextrose 50% SYRINGE Inj (50 ml) IVP ONE (15:59)
--- NOTE | 2018-03-07 17:03 | CARD ---
APPROVED REPORT EKG Measurement Heart [id number] <Conclusion> Normal sinus rhythm Possible Left atrial enlargement Possible lateral infarct, age undetermined Inferior infarct, age undetermined Abnormal ECG
[2018-03-07] MEDS: Docusate-Senna 50 mg-8.6 mg Tab PO SCH (22:29)
[2018-03-07] MEDS: Enoxaparin 30 mg Syringe SC SCH (22:31)
[2018-03-08 06:02] LABS: MEAN CORPUSCULAR HEMOGLOBIN 29.5 pg (27.0-31.0); MEAN CORPUSCULAR HGB CONC 33.5 g/dL (33.0-37.0); RBC 3.05 Mil/uL (3.80-5.20); RED CELL DISTRIBUTION WIDTH 17.2 % (11.5-14.5); WHITE BLOOD COUNT 9.5 K/uL (4.8-10.8)
--- NOTE | 2018-03-08 08:10 | CP.PCM.PN ---
Subjective - Date & Time of Evaluation Date of Evaluation: 03/08/18 Time of Evaluation: 08:08 - Subjective Subjective: Surgery Pt seen and examined. No acute events. c/o pain on the incision of the stump. Dressing changed. Objective - Vital Signs/Intake and Output Vital Signs (last 24 hours): Temp Pulse Resp BP Pulse Ox 98.3 F 80 18 146/72 98 03/08/18 07:43 03/08/18 07:43 03/08/18 07:43 03/08/18 07:43 03/08/18 07:43 - Medications Medications: Current Medications Acetaminophen (Tylenol 325mg Tab) 650 mg PO Q6 PRN PRN Reason: Pain, moderate (4-7) Last Admin: 03/06/18 17:51 Dose: 650 mg Aspirin (Ecotrin) 81 mg PO DAILY [facility] Last Admin: 03/05/18 10:36 Dose: 81 mg Atorvastatin Calcium (Lipitor) 40 mg PO HS [facility] Last Admin: 03/07/18 22:28 Dose: 40 mg Bethanechol Chloride (Urecholine) 25 mg PO TID [facility] Last Admin: 03/07/18 16:59 Dose: 25 mg Carvedilol (Coreg) 6.25 mg PO Q12 [facility] Last Admin: 03/07/18 22:27 Dose: 6.25 mg Clopidogrel Bisulfate (Plavix) 75 mg PO DAILY [facility] Last Admin: 03/05/18 10:34 Dose: 75 mg Enoxaparin Sodium (Lovenox) 30 mg SC HS [facility] PRN Reason: Protocol Last Admin: 03/07/18 22:31 Dose: 30 mg Ferrous Sulfate (Feosol) 325 mg PO BID [facility] Last Admin: 03/07/18 16:59 Dose: 325 mg Gabapentin (Neurontin) 100 mg PO Q8H [facility] Last Admin: 03/08/18 05:41 Dose: 100 mg Piperacillin Sod/Tazobactam (Sod 2.25 gm/ Sodium Chloride) 100 mls @ 100 mls/ hr IVPB Q6 [facility] PRN Reason: Protocol Last Admin: 03/08/18 04:40 Dose: 100 mls/hr Insulin Detemir (Levemir) 20 units SC DAILY [facility] Last Admin: 03/07/18 08:41 Dose: 20 units Insulin Human Lispro (Humalog) 5 units SC TID [facility] Losartan Potassium (Cozaar) 25 mg PO DAILY [facility] Last Admin: 03/07/18 08:40 Dose: 25 mg Mirtazapine (Remeron) 30 mg PO [facility] Last Admin: 03/07/18 22:28 Dose: 30 mg Morphine Sulfate (Morphine) 1 mg IVP Q6 PRN PRN Reason: Pain, moderate (4-7) Morphine Sulfate (Morphine) 2 mg IVP Q6 PRN PRN Reason: Pain, severe (8-10) Last Admin: 03/07/18 23:31 Dose: 2 mg Senna/Docusate Sodium (Senokot S 50 Mg-8.6 Mg) 2 tab PO [facility] Last Admin: 03/07/18 22:29 Dose: Not Given - Labs Labs: 03/08/18 05:30 03/08/18 05:30 - Constitutional Appears: No Acute Distress - Head Exam Head Exam: ATRAUMATIC, NORMAL INSPECTION, NORMOCEPHALIC - Eye Exam Eye Exam: EOMI, Normal appearance, PERRL Pupil Exam: NORMAL ACCOMODATION, PERRL - ENT Exam ENT Exam: Mucous Membranes Moist, Normal Exam - Neck Exam Neck Exam: Full ROM, Normal Inspection. absent: Lymphadenopathy - Respiratory Exam Respiratory Exam: Clear to Ausculation Bilateral, NORMAL BREATHING PATTERN - Cardiovascular Exam Cardiovascular Exam: REGULAR RHYTHM, +S1, +S2. absent: Murmur - GI/Abdominal Exam GI & Abdominal Exam: Soft, Normal Bowel Sounds. absent: Tenderness - Exam Exam: NORMAL INSPECTION - Extremities Exam Extremities Exam: absent: Full ROM, Normal Inspection Additional comments: L bka stump. necrotic. warm. erythema - Back Exam Back Exam: NORMAL INSPECTION - Neurological Exam Neurological Exam: Alert, Awake, CN II-XII Intact, Oriented x3. absent: Normal Gait - Psychiatric Exam Psychiatric exam: Normal Affect, Normal Mood - Skin Skin Exam: Erythema, Warm. absent: Dry, Intact Assessment and Plan - Assessment and Plan (Free Text) Assessment: 67F seen 6 weeks s/p left BKA with necrotic stump Plan: Anticoags held except Lovenox Consistent carbohydrate diet/ NPO after midnight Patient for AKA with Dr. Christian on 03/[address] Christian
[2018-03-08] MEDS: Insulin Detemir 100 Units/ml Inj SC SCH (09:32)
[2018-03-08] MEDS: Insulin Lispro (humaLOG) 100 Units/ml Inj SC SCH ×3 (09:32→17:26)
--- NOTE | 2018-03-08 09:33 | CP.PCM.PN ---
Subjective - Date & Time of Evaluation Date of Evaluation: 03/08/18 Time of Evaluation: 09:33 - Subjective Subjective: 67 y/o F evaluated and examined by bedside. Pt reports feeling OK, unable to sleep well last night due to upcoming surgery and recovery stage. Pt afebrile, reports decreased appetite due to quality of food. Pt had hypoglycemia episode yesterday. Objective - Vital Signs/Intake and Output Vital Signs (last 24 hours): Temp Pulse Resp BP Pulse Ox 98.3 F 80 18 146/72 98 03/08/18 07:43 03/08/18 07:43 03/08/18 07:43 03/08/18 07:43 03/08/18 07:43 - Medications Medications: Current Medications Acetaminophen (Tylenol 325mg Tab) 650 mg PO Q6 PRN PRN Reason: Pain, moderate (4-7) Last Admin: 03/06/18 17:51 Dose: 650 mg Aspirin (Ecotrin) 81 mg PO DAILY [facility] Last Admin: 03/05/18 10:36 Dose: 81 mg Atorvastatin Calcium (Lipitor) 40 mg PO HS [facility] Last Admin: 03/07/18 22:28 Dose: 40 mg Bethanechol Chloride (Urecholine) 25 mg PO TID [facility] Last Admin: 03/07/18 16:59 Dose: 25 mg Carvedilol (Coreg) 6.25 mg PO Q12 [facility] Last Admin: 03/07/18 22:27 Dose: 6.25 mg Clopidogrel Bisulfate (Plavix) 75 mg PO DAILY [facility] Last Admin: 03/05/18 10:34 Dose: 75 mg Enoxaparin Sodium (Lovenox) 30 mg SC HS [facility] PRN Reason: Protocol Last Admin: 03/07/18 22:31 Dose: 30 mg Ferrous Sulfate (Feosol) 325 mg PO BID [facility] Last Admin: 03/07/18 16:59 Dose: 325 mg Gabapentin (Neurontin) 100 mg PO Q8H [facility] Last Admin: 03/08/18 05:41 Dose: 100 mg Piperacillin Sod/Tazobactam (Sod 2.25 gm/ Sodium Chloride) 100 mls @ 100 mls/ hr IVPB Q6 [facility] PRN Reason: Protocol Last Admin: 03/08/18 04:40 Dose: 100 mls/hr Sodium Chloride (Sodium Chloride 0.9%) 1,000 mls @ 100 mls/hr IV .Q10H [facility] Stop: 03/09/18 08:44 Insulin Detemir (Levemir) 20 units SC DAILY [facility] Last Admin: 03/07/18 08:41 Dose: 20 units Insulin Human Lispro (Humalog) 5 units SC TID [facility] Losartan Potassium (Cozaar) 25 mg PO DAILY [facility] Last Admin: 03/07/18 08:40 Dose: 25 mg Mirtazapine (Remeron) 30 mg PO [facility] Last Admin: 03/07/18 22:28 Dose: 30 mg Morphine Sulfate (Morphine) 1 mg IVP Q6 PRN PRN Reason: Pain, moderate (4-7) Morphine Sulfate (Morphine) 2 mg IVP Q6 PRN PRN Reason: Pain, severe (8-10) Last Admin: 03/07/18 23:31 Dose: 2 mg Senna/Docusate Sodium (Senokot S 50 Mg-8.6 Mg) 2 tab PO [facility] Last Admin: 03/07/18 22:29 Dose: Not Given - Labs Labs: 03/08/18 05:30 03/08/18 05:30 - Constitutional Appears: No Acute Distress - Head Exam Head Exam: ATRAUMATIC, NORMAL INSPECTION - Eye Exam Eye Exam: EOMI - ENT Exam ENT Exam: Mucous Membranes Moist - Neck Exam Neck Exam: Full ROM. absent: Lymphadenopathy, Meningismus - Respiratory Exam Respiratory Exam: Clear to Ausculation Bilateral, NORMAL BREATHING PATTERN - Cardiovascular Exam Cardiovascular Exam: REGULAR RHYTHM, +S1, +S2 - GI/Abdominal Exam GI & Abdominal Exam: Soft, Normal Bowel Sounds. absent: Guarding, Tenderness - Neurological Exam Neurological Exam: Alert, Oriented x3 Assessment and Plan - Assessment and Plan (Free Text) Assessment: 67 yo F with a extensive PMHx, w/ urinary catheter in place, admitted for evaluation and management of UTI . S/P BKA -Performed on 01/24/2018 -Wound Cx: Acinetobacter B. sensitive to Zosyn. -General Surgery to perform AKA on 03/09/18 at 1pm. -Cardiology cleared patient for Surgery, by Dr Ruelas. -Cardiology consult to Dr Mcdaniel, cardiology as this Dr took care of her at the beginning of her symptoms. DM -Insulin Detemir 20 units SC HS -Insulin Lispro decreased to 5 units SC TID due to hypoglycemic episodes yesterday. -f/u FS UTI -Afebrile. VSS. -Pain improved. -Current zelaya catheter, day 4 -Urine Cx: Klebsiella ESBL-sensitive to Zosyn. -IV Zosyn 2.25gr Q6H; Renally dosed, Day 5. Urinary retention: -Pt discharged from [facility] on 02/26/18 with Urinary catheter in place. -Remove and placed new Zelaya catheter on 03/04 -c/w home medications: Bethanechol 25mg TID S/P Hemorrhagic Stroke -02/09/18: Developed stroke in left-parietal occipital region, with a subacute subdural hemorrhage inferior to the temporal lobe. -02/16/18: MRA of the head narrowing of the right cavernous carotid artery due to calcified atherosclerotic plaque -C/w home medications: Aspirin 81mg daily, Plavix 75mg DTI -Ulcer of sacrum: Stage [id number]. -Healing Stage I ulcer on R heel. -Wound Care Consult -Zelaya in place CKD -Calculated Creatinine Clearance 15 mL/min --> Stage IV. -C/w home medications Depression -C/w home med: Mirtazapine 30mg PO HTN -C/w home medications -On Losartan 25mg PO daily Anemia -Feosol 325mg BID, -Monitor H/H. Prophylaxis -Lovenox 30mg SC Daily; Renally dosed
--- NOTE | 2018-03-08 15:51 | CP.PCM.CON ---
History of Present Illness - History of Present Illness History of Present Illness: 67 y old with multiiple medical problems including DM, below knee AKA left presented with acute urinary retention and found to have ESBL. Wound culture positive and ID consulted Past Patient History - Infectious Disease Hx of Infectious Diseases: None - Tetanus Immunizations Tetanus Immunization: Unknown - Past Medical History & Family History Past Medical History?: Yes - Past Social History Smoking Status: Never Smoked - CARDIAC Hx Hypercholesterolemia: Yes Hx Hypertension: Yes - PULMONARY Hx Respiratory Disorders: No - NEUROLOGICAL HX Cerebrovascular Accident: Yes (left sided weakness) - HEENT Hx HEENT Problems: No - RENAL Hx Chronic Kidney Disease: No - ENDOCRINE/METABOLIC Hx Diabetes Mellitus Type 2: Yes - HEMATOLOGICAL/ONCOLOGICAL Hx Blood Disorders: No Hx AIDS: No Hx Human Immunodeficiency Virus (HIV): No - INTEGUMENTARY Hx Dermatological Problems: No - MUSCULOSKELETAL/RHEUMATOLOGICAL Hx Musculoskeletal Disorders: Yes Hx Falls: Yes (fell 6 months ago) Other/Comment: hx of chronic back pain - GASTROINTESTINAL Hx Gastrointestinal Disorders: No - GENITOURINARY/GYNECOLOGICAL Hx Genitourinary Disorders: No - PSYCHIATRIC Hx Psychophysiologic Disorder: No Hx Substance Use: No - SURGICAL HISTORY Hx Surgeries: Yes Hx Coronary Stent: Yes - ANESTHESIA Hx Anesthesia: Yes Hx Anesthesia Reactions: No Hx Malignant Hyperthermia: No Has any member of the family had a problem w/ anesthesia?: No Meds Allergies/Adverse Reactions: Allergies Allergy/AdvReac Type Severity Reaction Status Date / Time No Known Allergies Allergy Verified 05/14/16 14:21 - Medications Medications: Current Medications Acetaminophen (Tylenol 325mg Tab) 650 mg PO Q6 PRN PRN Reason: Pain, moderate (4-7) Last Admin: 03/06/18 17:51 Dose: 650 mg Aspirin (Ecotrin) 81 mg PO DAILY [facility] Last Admin: 03/05/18 10:36 Dose: 81 mg Atorvastatin Calcium (Lipitor) 40 mg PO HS [facility] Last Admin: 03/07/18 22:28 Dose: 40 mg Bethanechol Chloride (Urecholine) 25 mg PO TID [facility] Last Admin: 03/08/18 09:33 Dose: 25 mg Carvedilol (Coreg) 6.25 mg PO Q12 [facility] Last Admin: 03/08/18 09:31 Dose: 6.25 mg Clopidogrel Bisulfate (Plavix) 75 mg PO DAILY [facility] Last Admin: 03/05/18 10:34 Dose: 75 mg Enoxaparin Sodium (Lovenox) 30 mg SC [facility] PRN Reason: Protocol Last Admin: 03/07/18 22:31 Dose: 30 mg Ferrous Sulfate (Feosol) 325 mg PO BID [facility] Last Admin: 03/08/18 09:31 Dose: 325 mg Gabapentin (Neurontin) 100 mg PO Q8H [facility] Last Admin: 03/08/18 05:41 Dose: 100 mg Piperacillin Sod/Tazobactam (Sod 2.25 gm/ Sodium Chloride) 100 mls @ 100 mls/ hr IVPB Q6 [facility] PRN Reason: Protocol Last Admin: 03/08/18 09:33 Dose: 100 mls/hr Sodium Chloride (Sodium Chloride 0.9%) 1,000 mls @ 100 mls/hr IV .Q10H [facility] Stop: 03/09/18 08:44 Insulin Detemir (Levemir) 20 units SC DAILY [facility] Last Admin: 03/08/18 09:32 Dose: 20 units Insulin Human Lispro (Humalog) 5 units SC TID [facility] Last Admin: 03/08/18 09:32 Dose: 5 unit Losartan Potassium (Cozaar) 25 mg PO DAILY [facility] Last Admin: 03/08/18 09:31 Dose: 25 mg Mirtazapine (Remeron) 30 mg PO [facility] Last Admin: 03/07/18 22:28 Dose: 30 mg Morphine Sulfate (Morphine) 1 mg IVP Q6 PRN PRN Reason: Pain, moderate (4-7) Morphine Sulfate (Morphine) 2 mg IVP Q6 PRN PRN Reason: Pain, severe (8-10) Last Admin: 03/08/18 09:42 Dose: 2 mg Senna/Docusate Sodium (Senokot S 50 Mg-8.6 Mg) 2 tab PO [facility] Last Admin: 03/07/18 22:29 Dose: Not Given Physical Exam - Extremities Exam Additional comments: below knee amputation left side with ulcer Results - Vital Signs Recent Vital Signs: Last Vital Signs Temp 98.6 F 03/08/18 11:53 Pulse 82 03/08/18 11:53 Resp 18 03/08/18 11:53 BP 136/66 03/08/18 11:53 Pulse Ox 98 03/08/18 11:53 - Labs Result Diagrams: 03/08/18 05:30 03/08/18 05:30 Labs: Laboratory Results - last 24 hr 03/07/18 03/07/18 03/07/18 15:41 16:17 21:55 WBC RBC Hgb Hct MCV MCH MCHC RDW Plt Count Sodium Potassium Chloride Carbon Dioxide Anion Gap BUN Creatinine Est GFR ( Amer) Est GFR (Non-Af Amer) POC Glucose (mg/dL) 32 L* 195 H 246 H Random Glucose Calcium 03/08/18 03/08/18 03/08/18 05:17 05:30 05:30 WBC 9.5 RBC 3.05 L Hgb 9.0 L Hct 26.8 L MCV 88.0 MCH 29.5 MCHC 33.5 RDW 17.2 H Plt Count 289 Sodium 144 Potassium 4.4 Chloride 110 H Carbon Dioxide 21 L Anion Gap 17 BUN 26 H Creatinine 1.3 H Est GFR ( Amer) 50 Est GFR (Non-Af Amer) 41 POC Glucose (mg/dL) 142 H Random Glucose 139 H Calcium 9.0 03/08/18 10:39 WBC RBC Hgb Hct MCV MCH MCHC RDW Plt Count Sodium Potassium Chloride Carbon Dioxide Anion Gap BUN Creatinine Est GFR ( Amer) Est GFR (Non-Af Amer) POC Glucose (mg/dL) 298 H Random Glucose Calcium Assessment & Plan - Assessment and Plan (Free Text) Assessment: ESBL urine infection with klebsiella Amputation site infection with acinetobacter Both organisms sensitive to Zosyn and clinically improved on it. Continue Zosyn 2.25 iv q 6h for another 5 days
[2018-03-08] MEDS: Docusate-Senna 50 mg-8.6 mg Tab PO SCH (21:38)
[2018-03-08] MEDS ORDERED: Oxycodone/Acetaminophen 5/325 mg Tab PO ONE (21:42)
[2018-03-08] MEDS: Sodium Chloride 0.9% 1,000 ML IV SCH (21:44)
[2018-03-09] MEDS: Sodium Chloride 0.9% 1,000 ML IV SCH ×2 (04:46→18:08)
[2018-03-09 06:25] LABS: MEAN CELL VOLUME 89.1 fl (81.0-99.0); MEAN CORPUSCULAR HEMOGLOBIN 29.4 pg (27.0-31.0); RBC 3.05 Mil/uL (3.80-5.20); RED CELL DISTRIBUTION WIDTH 17.2 % (11.5-14.5); WHITE BLOOD COUNT 8.8 K/uL (4.8-10.8)
[2018-03-09 06:40] LABS: ALB/GLOB RATIO 0.8 (1.0-2.1); ALBUMIN 2.8 g/dL (3.5-5.0); CALCIUM 8.9 mg/dL (8.4-10.2)
--- NOTE | 2018-03-09 08:05 | CP.PCM.PCO ---
Physician Communication Note - Physician Communication Note Physician Communication Note: pt seen and cleared by for surgery. Agree with his recs
--- NOTE | 2018-03-09 09:10 | CP.PCM.PN ---
Subjective - Date & Time of Evaluation Date of Evaluation: 03/09/18 Time of Evaluation: 07:35 - Subjective Subjective: 67 y/o F seen and examined by bedside. Pt reports feeling well, afebrile, tolerated PO until now, no acute events overnight. Pt aware she will go to OR later today. Objective - Vital Signs/Intake and Output Vital Signs (last 24 hours): Temp Pulse Resp BP Pulse Ox 98.3 F 78 18 157/80 H 100 03/09/18 07:43 03/09/18 07:43 03/09/18 07:43 03/09/18 07:43 03/09/18 07:43 Intake and Output: 03/09/18 03/09/18 06:59 18:59 Output Total 1850 Balance -1850 - Medications Medications: Current Medications Acetaminophen (Tylenol 325mg Tab) 650 mg PO Q6 PRN PRN Reason: Pain, moderate (4-7) Last Admin: 03/06/18 17:51 Dose: 650 mg Aspirin (Ecotrin) 81 mg PO DAILY [facility] Last Admin: 03/05/18 10:36 Dose: 81 mg Atorvastatin Calcium (Lipitor) 40 mg PO HS [facility] Last Admin: 03/08/18 21:37 Dose: 40 mg Bethanechol Chloride (Urecholine) 25 mg PO TID [facility] Last Admin: 03/08/18 17:27 Dose: 25 mg Carvedilol (Coreg) 6.25 mg PO Q12 [facility] Last Admin: 03/08/18 21:37 Dose: 6.25 mg Clopidogrel Bisulfate (Plavix) 75 mg PO DAILY [facility] Last Admin: 03/05/18 10:34 Dose: 75 mg Ferrous Sulfate (Feosol) 325 mg PO BID [facility] Last Admin: 03/08/18 17:26 Dose: 325 mg Gabapentin (Neurontin) 100 mg PO Q8H [facility] Last Admin: 03/09/18 04:45 Dose: Not Given Piperacillin Sod/Tazobactam (Sod 2.25 gm/ Sodium Chloride) 100 mls @ 100 mls/ hr IVPB Q6 [facility] PRN Reason: Protocol Last Admin: 03/09/18 04:45 Dose: 100 mls/hr Insulin Detemir (Levemir) 20 units SC DAILY [facility] Last Admin: 03/08/18 09:32 Dose: 20 units Insulin Human Lispro (Humalog) 5 units SC TID [facility] Last Admin: 03/08/18 17:26 Dose: 5 unit Losartan Potassium (Cozaar) 25 mg PO DAILY [facility] Last Admin: 03/08/18 09:31 Dose: 25 mg Mirtazapine (Remeron) 30 mg PO [facility] Last Admin: 03/08/18 21:37 Dose: 30 mg Morphine Sulfate (Morphine) 1 mg IVP Q6 PRN PRN Reason: Pain, moderate (4-7) Morphine Sulfate (Morphine) 2 mg IVP Q6 PRN PRN Reason: Pain, severe (8-10) Last Admin: 03/08/18 17:25 Dose: 2 mg Senna/Docusate Sodium (Senokot S 50 Mg-8.6 Mg) 2 tab PO [facility] Last Admin: 03/08/18 21:38 Dose: Not Given - Labs Labs: 03/09/18 05:30 03/09/18 05:30 - Constitutional Appears: No Acute Distress - Head Exam Head Exam: ATRAUMATIC - Eye Exam Eye Exam: EOMI - ENT Exam ENT Exam: Mucous Membranes Moist - Neck Exam Neck Exam: Full ROM. absent: Meningismus - Respiratory Exam Respiratory Exam: Clear to Ausculation Bilateral, NORMAL BREATHING PATTERN - Cardiovascular Exam Cardiovascular Exam: +S1, +S2 - GI/Abdominal Exam GI & Abdominal Exam: Soft, Normal Bowel Sounds. absent: Guarding, Tenderness, Mass - Neurological Exam Neurological Exam: Alert, Awake, Oriented x3 - Psychiatric Exam Psychiatric exam: Normal Affect, Normal Mood Assessment and Plan - Assessment and Plan (Free Text) Assessment: 67 yo F with a extensive PMHx, w/ urinary catheter in place, admitted for evaluation and management of UTI . S/P BKA -Performed on 01/24/2018 -Wound Cx: Acinetobacter B. sensitive to Zosyn. -General Surgery to perform AKA today -Cardiology cleared patient for Surgery, by Dr Ruelas. -Cardiology Dr Mcdaniel cleared also for AKA. DM -Insulin Detemir 20 units SC HS -Insulin Lispro decreased to 5 units SC TID due to hypoglycemic episodes yesterday. -Insulin therapy on hold due to Surgery. UTI -Afebrile. VSS. -Pain improved. -Current zelaya catheter, day 5 -Urine Cx: Klebsiella ESBL-sensitive to Zosyn. -IV Zosyn 2.25gr Q6H; Renally dosed, Day 6. Urinary retention: -Pt discharged from [facility] on 02/26/18 with Urinary catheter in place. -Remove and placed new Zelaya catheter on 03/04 -c/w home medications: Bethanechol 25mg TID S/P Hemorrhagic Stroke -02/09/18: Developed stroke in left-parietal occipital region, with a subacute subdural hemorrhage inferior to the temporal lobe. -02/16/18: MRA of the head narrowing of the right cavernous carotid artery due to calcified atherosclerotic plaque -On Hold due to surgery: Aspirin 81mg daily, Plavix 75mg DTI -Ulcer of sacrum: Stage [id number]. -Healing Stage I ulcer on R heel. -Wound Care Consult -Zelaya in place CKD -Stage IV. -C/w home medications Depression -C/w home med: Mirtazapine 30mg PO HTN -C/w home medications -On Losartan 25mg PO daily Anemia -Feosol 325mg BID, -Monitor H/H. Prophylaxis -On Hold due to surgery: Lovenox 30mg SC Daily; Renally dosed.
[2018-03-09] MEDS: Insulin Lispro (humaLOG) 100 Units/ml Inj SC SCH ×3 (09:25→18:02)
[2018-03-09] MEDS ORDERED: Lidocaine 2% Inj (20ml) ONE ×2 (12:15→13:09)
[2018-03-09] MEDS ORDERED: Midazolam 2 MG/2 ML VIAL ONE ×2 (12:53→14:01)
[2018-03-09 13:08] LABS: PARTIAL THROMBOPLASTIN TIME 22.3 Seconds (25.6-37.1); PROTHROMBIN TIME 10.8 Seconds (9.8-13.1)
[2018-03-09] MEDS ORDERED: Bacitracin Ointment 30 GM TUBE ONE (13:09)
[2018-03-09] MEDS ORDERED: Bupivacaine HCl 0.5% PF (30 ml) Inj ONE (13:09)
[2018-03-09] MEDS ORDERED: Lactated Ringer's 1,000 ML IV ONE (13:23)
[2018-03-09] MEDS ORDERED: Sodium Chloride 0.9% 500 ML IV ONE (13:23)
[2018-03-09] MEDS ORDERED: Ketamine 50 mg/ml Inj (10 ml) ONE (14:03)
[2018-03-09] MEDS ORDERED: Labetalol 5mg/ml (4ml) ONE (14:05)
--- NOTE | 2018-03-09 15:39 | PCM.ANESB3 ---
Femoral Nerve Block - Femoral Nerve Block Date of Procedure: 03/09/18 Anesthesiologist: Brody Pre-Procedure Diagnosis: Left AKA Post-Procedure Diagnosis: Same Procedure Performed: Femoral Nerve Block Left - Procedure Femoral Nerve Block: The procedure was explained to the patient that it is for the post-operative pain management. Consent was obtained after a thorough discussion with the patient regarding the benefits and possible complications of local anesthetic block of the femoral nerve at the inguinal crease area. The patient was brought to the operating room and standard monitors were applied. Time-out was held with the circulating nurse to confirm the correct surgery and the appropriate block. After applying oxygen by nasal cannula and administering IV Sedation, patient was placed in supine position with fully extended lower extremities and the groin exposed. The femoral artery was then carefully palpated. The ultrasound transducer was then applied to this area in the transverse plane and the femoral nerve was visualized lateral to the femoral artery and underneath the fascia iliaca. After thorough identification, the inguinal crease area was prepped with Betadine solution three times and 1 % Lidocaine was injected subcutaneously for topical anesthesia. At this point, a #22 gauge Stimuplex 2-inch needle was inserted immediately lateral to the femoral artery pulse at the inguinal crease and advanced perpendicularly. The needle was inserted to the ultrasound transducer in-plane towards the femoral nerve in a [id number] direction. Needle advancement was performed carefully under direct ultrasound visualization. Nerve stimulator was used and twitch of the quadriceps muscle was obtained at current of ___0.4__ MA. After negative aspiration, ___15__cc of __2___% lidocaine _was injected and this was followed with ___10___ cc of ___.5____ % bupivacaine . Under ultrasound guidance the local anesthetics were observed spreading below fascia iliaca and around the femoral nerve. The needle was removed intact and sterile dressing was applied. The patient had stable vital signs, was conscious and in no apparent distress. The patient tolerated the femoral nerve block well with stable vital signs and was prepared for subsequent surgery.
--- NOTE | 2018-03-09 15:39 | PCM.ANESB2 ---
Popliteal Nerve Block - Popliteal Nerve Block Date of Procedure: 03/09/18 Anesthesiologist: Brody Pre-Procedure Diagnosis: Left AKA Post-Procedure Diagnosis: Same Procedure Performed: Popliteal Nerve Block Left - Procedure Popliteal Nerve Block: This procedure was explained to the patient that it is for post-operative pain management. Consent was obtained after a thorough discussion with the patient regarding the benefits and possible complications of local anesthetic block of the sciatic nerve at the popliteal level. The patient was brought to the operating room and standard monitors are applied. Time-out was held with the circulating nurse to confirm the correct surgery and the appropriate block. After applying oxygen by nasal cannula and administering IV Sedation, patient's operative leg was gently raised and supported and the groove in between the biceps femoris and vastus lateralis muscles was carefully palpated. The skin approximately 8cm above the popliteal crease was then marked. The ultrasound transducer was then applied to the posterior thigh approximately 8cm above the popliteal crease in the transverse plane and the sciatic nerve before its division was visualized lateral to the popliteal artery and in between the bicep femoris and semimembranosus/semitendinosus muscles. After identification, the lateral portion of the thigh was prepped with Betadine solution three times and Lidocaine 1% was injected subcutaneously for topical anesthesia. At this point, a # 21 gauge Stimuplex insulated 4 inch needle was inserted into pre-marked area and advanced in a perpendicular direction. The needle was inserted above the ultrasound transducer in-plane towards the sciatic nerve in a [id number] direction. Needle advancement was performed carefully under direct ultrasound visualization. After repeated negative aspiration, ___15__cc of __2___ % ___lidocaine was injected and this was flowed with ___10 ___ cc of __.5____% ____marcaine . Under ultrasound guidance the local anesthetics were observed surrounding sciatic nerve . The needle was removed intact and sterile dressing was applied. The patient tolerated the popliteal nerve block well with stable vital signs and was subsequently prepared for the surgery.
--- NOTE | 2018-03-09 16:02 | PCM.SURG1 ---
Surgeon's Initial Post Op Note - Surgeon's Notes Surgeon: Gino Warehouse Assistant: PGY4, Bennie PGY2, Chata PGY1 Type of Anesthesia: Block Regional, IV Sedation Pre-Operative Diagnosis: L Necrotic BKA stump Operative Findings: L Necrotic BKA stump Post-Operative Diagnosis: L Necrotic BKA stump Operation Performed: L Above knee amputation Specimen/Specimens Removed: Left lower extremity Estimated Blood Loss: EBL {In ML}: 200 Blood Products Given: N/A Drains Used: Alirio Post-Op Condition: Good Date of Surgery/Procedure: 03/09/18 Time of Surgery/Procedure: 02:00
[2018-03-09] MEDS ORDERED: HYDROmorphone 0.5 mg/0.5 ml ISec IVP PRN (16:04)
[2018-03-09] MEDS ORDERED: Sodium Chloride 0.9% 1,000 ML IV SCH (16:15)
[2018-03-09] MEDS: HYDROmorphone 0.5 mg/0.5 ml ISec IVP PRN ×2 (17:59→22:16)
[2018-03-09] MEDS: Insulin Detemir 100 Units/ml Inj SC SCH (21:33)
[2018-03-09] MEDS: Docusate-Senna 50 mg-8.6 mg Tab PO SCH (21:35)
[2018-03-09] MEDS ORDERED: Insulin Detemir 100 Units/ml Inj SC SCH (22:00)
[2018-03-10] MEDS: Sodium Chloride 0.9% 1,000 ML IV SCH ×3 (05:50→20:25)
[2018-03-10 06:49] LABS: ALB/GLOB RATIO 0.9 (1.0-2.1); ALBUMIN 2.9 g/dL (3.5-5.0); ALT/SGPT 43 U/L (9-52); AST/SGOT 21 U/L (14-36); BLOOD UREA NITROGEN 25 mg/dl (7-17); CALCIUM 8.6 mg/dL (8.4-10.2); GFR AFRICAN-AMERICAN > 60; GFR NON-AFRICAN AMERICAN 55
--- NOTE | 2018-03-10 07:37 | CP.PCM.PN ---
Subjective - Date & Time of Evaluation Date of Evaluation: 03/10/18 Time of Evaluation: 07:33 - Subjective Subjective: Surgery Progress note for Dr. 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 Patient states that she is in pain at this time. Denies any acute overnight events. States that she has good appetite. No N/V/F/C/CP/SOB/D Objective - Vital Signs/Intake and Output Vital Signs (last 24 hours): Temp Pulse Resp BP Pulse Ox 98.9 F 77 18 153/75 H 99 03/10/18 05:11 03/10/18 05:11 03/10/18 05:11 03/10/18 05:11 03/10/18 05:11 Intake and Output: 03/10/18 03/10/18 06:59 18:59 Intake Total 1100 Output Total 745 Balance 355 - Medications Medications: Current Medications Acetaminophen (Tylenol 325mg Tab) 975 mg PO Q8H [facility] Last Admin: 03/10/18 05:51 Dose: 975 mg Aspirin (Ecotrin) 81 mg PO DAILY [facility] Last Admin: 03/05/18 10:36 Dose: 81 mg Atorvastatin Calcium (Lipitor) 40 mg PO HS [facility] Last Admin: 03/09/18 21:32 Dose: 40 mg Bethanechol Chloride (Urecholine) 25 mg PO TID [facility] Last Admin: 03/09/18 18:02 Dose: 25 mg Carvedilol (Coreg) 6.25 mg PO Q12 [facility] Last Admin: 03/09/18 21:32 Dose: 6.25 mg Clopidogrel Bisulfate (Plavix) 75 mg PO DAILY [facility] Last Admin: 03/09/18 09:34 Dose: Not Given Ferrous Sulfate (Feosol) 325 mg PO BID [facility] Last Admin: 03/09/18 18:01 Dose: 325 mg Gabapentin (Neurontin) 100 mg PO Q8H [facility] Last Admin: 03/10/18 05:53 Dose: 100 mg Hydromorphone HCl (Dilaudid) 0.5 mg IVP Q4H PRN PRN Reason: Pain, moderate (4-7) Last Admin: 03/10/18 03:01 Dose: 0.5 mg Hydromorphone HCl (Dilaudid) 1 mg IVP Q4H PRN PRN Reason: Pain, severe (8-10) Last Admin: 03/09/18 22:16 Dose: 1 mg Piperacillin Sod/Tazobactam (Sod 2.25 gm/ Sodium Chloride) 100 mls @ 100 mls/ hr IVPB Q6 [facility] PRN Reason: Protocol Last Admin: 03/10/18 04:09 Dose: 100 mls/hr Sodium Chloride (Sodium Chloride 0.9%) 1,000 mls @ 75 mls/hr IV .[id number] [facility] Last Admin: 03/10/18 05:50 Dose: 75 mls/hr Insulin Detemir (Levemir) 20 units SC [facility] Last Admin: 03/09/18 21:33 Dose: 20 units Insulin Human Lispro (Humalog) 5 units SC TID [facility] Last Admin: 03/09/18 18:02 Dose: 5 unit Losartan Potassium (Cozaar) 25 mg PO DAILY [facility] Last Admin: 03/09/18 09:25 Dose: 25 mg Mirtazapine (Remeron) 30 mg PO [facility] Last Admin: 03/09/18 21:31 Dose: 30 mg Ondansetron HCl (Zofran Inj) 4 mg IVP Q6 PRN PRN Reason: Nausea/Vomiting Senna/Docusate Sodium (Senokot S 50 Mg-8.6 Mg) 2 tab PO [facility] Last Admin: 03/09/18 21:35 Dose: 2 tab - Labs Labs: 03/09/18 05:30 03/10/18 06:00 PT 10.8 Seconds (9.8-13.1) 03/09/18 11:50 INR 1.0 (0.9-1.2) 03/09/18 11:50 APTT 22.3 Seconds (25.6-37.1) L 03/09/18 11:50 - Constitutional Appears: Well, Non-toxic, No Acute Distress - Head Exam Head Exam: ATRAUMATIC, NORMOCEPHALIC - Extremities Exam Additional comments: AKA noted to left leg Dressing noted to be C/D/I to left stump 145 cc of sanguinous drainage noted to Alirio drain Assessment and Plan - Assessment and Plan (Free Text) Assessment: 67F one day s/p left AKA Plan: Afebrile Tylenol 325mg q8h scheduled Oxycodone 5 mg q6h prn Continue anticoags Dilaudid 1 mg IVP q4h prn for breakthrough pain Abx F/u labs Incentive spirometer Consistent carbohydrate diet ROBBIN zelaya Will continue to follow
[2018-03-10] MEDS: oxyCODONE 5 mg Immediate Release Tab PO PRN ×2 (08:05→20:06)
--- NOTE | 2018-03-10 08:54 | OP ---
PROCEDURE DATE: 03/08/2018 PREOPERATIVE DIAGNOSIS: Necrosis of the below-knee amputation stump without healing. POSTOPERATIVE DIAGNOSIS: Necrosis of the below-knee amputation stump without healing. PROCEDURE: Above-knee amputation on the left side. SURGEON: Dario Christian M.D. FITNESS LEADER: and Dr. Reagan Avery. PROCEDURE: In the operating room, the patient was identified by name, name of the procedure, laterality, my trace, and the scar, day and wristband. The area was prepped with Betadine and prepped out using a stockinette, in place was a tourniquet. The patient had a block and there after the time-out was successful, the patient was exsanguinated with an Esmarch bandage and the tourniquet inflated to 300. The area above the knee was mapped out, identifying the prior friedman. A fishmouth ellipse equal posteriorly and anteriorly. This was taken down through the skin and subcutaneus tissues into the fascia. The fascia was divided circumferentially; however, bleeding expect with the tourniquet. The muscle was then taken down circumferentially using cautery exposing the bone and medially the neurovascular bundle. The bone was divided with a Gigli saw. The artery and nerve were taken with a clamp, tied serially, suture ligation. The nerve was then had high ligation clamped and divided. Residual muscle was taken down with cautery. The bone was then trimmed and the anterior lip taken down. The incision was closed over a Alirio with #1 Vicryl, skin was closed with marci and a light pressure dressing was applied. Patient was taken to the recovery room in good condition after the sponge and needle counts were declared correct. Dario Christian MD
--- NOTE | 2018-03-10 10:05 | CP.PCM.PN ---
Subjective - Date & Time of Evaluation Date of Evaluation: 03/10/18 Time of Evaluation: 07:30 - Subjective Subjective: 67 y/o F seen and examined by bedside. Pt reports feeling well. Pain is controlled with medications now. Pt has not eaten anything since surgery, reports feeling hungry, afebrile, no acute events overnight. No abdominal pain, urinating through catheter with NO problem. Pt denies headache, chest pain, SOB , dizziness, nausea or rash. Objective - Vital Signs/Intake and Output Vital Signs (last 24 hours): Temp Pulse Resp BP Pulse Ox 98.0 F 82 18 147/71 100 03/10/18 07:44 03/10/18 07:44 03/10/18 07:44 03/10/18 07:44 03/10/18 07:44 Intake and Output: 03/10/18 03/10/18 06:59 18:59 Intake Total 1100 Output Total 745 Balance 355 - Medications Medications: Current Medications Acetaminophen (Tylenol 325mg Tab) 975 mg PO Q8H [facility] Last Admin: 03/10/18 05:51 Dose: 975 mg Aspirin (Ecotrin) 81 mg PO DAILY [facility] Last Admin: 03/05/18 10:36 Dose: 81 mg Atorvastatin Calcium (Lipitor) 40 mg PO HS [facility] Last Admin: 03/09/18 21:32 Dose: 40 mg Bethanechol Chloride (Urecholine) 25 mg PO TID [facility] Last Admin: 03/09/18 18:02 Dose: 25 mg Carvedilol (Coreg) 6.25 mg PO Q12 [facility] Last Admin: 03/09/18 21:32 Dose: 6.25 mg Clopidogrel Bisulfate (Plavix) 75 mg PO DAILY [facility] Last Admin: 03/09/18 09:34 Dose: Not Given Ferrous Sulfate (Feosol) 325 mg PO BID [facility] Last Admin: 03/09/18 18:01 Dose: 325 mg Gabapentin (Neurontin) 100 mg PO Q8H [facility] Last Admin: 03/10/18 05:53 Dose: 100 mg Hydromorphone HCl (Dilaudid) 1 mg IVP Q4H PRN PRN Reason: Pain, severe (8-10) Last Admin: 03/09/18 22:16 Dose: 1 mg Piperacillin Sod/Tazobactam (Sod 2.25 gm/ Sodium Chloride) 100 mls @ 100 mls/ hr IVPB Q6 [facility] PRN Reason: Protocol Last Admin: 03/10/18 04:09 Dose: 100 mls/hr Sodium Chloride (Sodium Chloride 0.9%) 1,000 mls @ 75 mls/hr IV .[id number] [facility] Last Admin: 03/10/18 05:50 Dose: 75 mls/hr Insulin Detemir (Levemir) 20 units SC [facility] Last Admin: 03/09/18 21:33 Dose: 20 units Insulin Human Lispro (Humalog) 5 units SC TID [facility] Last Admin: 03/09/18 18:02 Dose: 5 unit Losartan Potassium (Cozaar) 25 mg PO DAILY [facility] Last Admin: 03/09/18 09:25 Dose: 25 mg Mirtazapine (Remeron) 30 mg PO [facility] Last Admin: 03/09/18 21:31 Dose: 30 mg Ondansetron HCl (Zofran Inj) 4 mg IVP Q6 PRN PRN Reason: Nausea/Vomiting Oxycodone HCl (Oxycodone Immediate Release Tab) 5 mg PO Q6 PRN PRN Reason: Pain, moderate (4-7) Last Admin: 03/10/18 08:05 Dose: 5 mg Senna/Docusate Sodium (Senokot S 50 Mg-8.6 Mg) 2 tab PO [facility] Last Admin: 03/09/18 21:35 Dose: 2 tab - Labs Labs: 03/09/18 05:30 03/10/18 06:00 PT 10.8 Seconds (9.8-13.1) 03/09/18 11:50 INR 1.0 (0.9-1.2) 03/09/18 11:50 APTT 22.3 Seconds (25.6-37.1) L 03/09/18 11:50 - Constitutional Appears: No Acute Distress - Head Exam Head Exam: ATRAUMATIC, NORMAL INSPECTION - Eye Exam Eye Exam: EOMI, Normal appearance - ENT Exam ENT Exam: Mucous Membranes Moist, Normal Oropharynx - Neck Exam Neck Exam: Full ROM. absent: Meningismus - Respiratory Exam Respiratory Exam: Clear to Ausculation Bilateral, NORMAL BREATHING PATTERN - Cardiovascular Exam Cardiovascular Exam: REGULAR RHYTHM, +S1, +S2 - GI/Abdominal Exam GI & Abdominal Exam: Soft, Normal Bowel Sounds. absent: Tenderness - Extremities Exam Extremities Exam: Full ROM, Normal Inspection Additional comments: Left LE: amputated limb on a dressing that is clean, dry and intact, SILT. Right LE: normal ROM, strenght 5/5, SILT, - Neurological Exam Neurological Exam: Alert, Awake, Oriented x3 Assessment and Plan - Assessment and Plan (Free Text) Assessment: 67 yo F with a extensive PMHx, w/ urinary catheter in place, admitted for evaluation and management of UTI . S/P Above Knee Amputation -POD 1. -BKA was performed on 01/24/2018 -C/W Pain management. -F/U general surgery further recommendations. -C/w wound care. Anemia -Feosol 325mg BID, -Received 2 units PRBC's yesterday afternoon -Hgb 9.0 - today. -Monitor H/H. Considering transfuse if Hgb <8.0. UTI -Afebrile. VSS. Asymptomatic -Current zelaya catheter, day 6 -Urine Cx: Klebsiella ESBL-sensitive to Zosyn. -IV Zosyn 2.25gr Q6H; Renally dosed, Day 7. Urinary retention: -Pt discharged from [facility] on 02/26/18 with Urinary catheter in place. -Removed and placed new Zelaya catheter on 03/04 -c/w home medications: Bethanechol 25mg TID S/P Hemorrhagic Stroke -02/09/18: Developed stroke in left-parietal occipital region, with a subacute subdural hemorrhage inferior to the temporal lobe. -02/16/18: MRA of the head narrowing of the right cavernous carotid artery due to calcified atherosclerotic plaque -C/w: Aspirin 81mg daily, Plavix 75mg DTI -Ulcer of sacrum: Stage [id number]. -Healing Stage I ulcer on R heel. -Wound Care Consult -Zelaya in place DM -Insulin Detemir 20 units SC HS -Insulin Lispro decreased to 5 units SC TID -HbA1c 7.3 on 01/15/18. CKD -Stage IV. -C/w home medications Depression -C/w home med: Mirtazapine 30mg PO HTN -C/w home medications -On Losartan 25mg PO daily Prophylaxis -Lovenox 30mg SC Daily; Renally dosed.
[2018-03-10] MEDS: HYDROmorphone 0.5 mg/0.5 ml ISec IVP PRN ×2 (11:38→16:02)
[2018-03-10] MEDS: Insulin Lispro (humaLOG) 100 Units/ml Inj SC SCH ×3 (11:41→17:00)
[2018-03-10 13:26] LABS: HEMOGLOBIN 7.9 g/dL (12.0-16.0); MEAN CELL VOLUME 88.7 fl (81.0-99.0); MEAN CORPUSCULAR HEMOGLOBIN 29.9 pg (27.0-31.0); MEAN CORPUSCULAR HGB CONC 33.8 g/dL (33.0-37.0); RBC 2.64 Mil/uL (3.80-5.20); RED CELL DISTRIBUTION WIDTH 16.1 % (11.5-14.5); WHITE BLOOD COUNT 11.3 K/uL (4.8-10.8)
[2018-03-10] MEDS: HYDROmorphone 0.5 mg/0.5 ml ISec IVP SCH (16:03)
[2018-03-10] MEDS: Docusate-Senna 50 mg-8.6 mg Tab PO SCH (21:31)
[2018-03-10] MEDS: Insulin Detemir 100 Units/ml Inj SC SCH (21:32)
--- NOTE | 2018-03-11 08:02 | CP.PCM.PN ---
Subjective - Date & Time of Evaluation Date of Evaluation: 03/11/18 Time of Evaluation: 07:58 - Subjective Subjective: Surgery Progress note for Dr. 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 Patient states that her pain is well controlled at this time. Denies any acute overnight events. No N/V/F/C/CP/SOB/D Objective - Vital Signs/Intake and Output Vital Signs (last 24 hours): Temp Pulse Resp BP Pulse Ox 98.9 F 86 18 139/82 97 03/11/18 07:33 03/11/18 07:33 03/11/18 07:33 03/11/18 07:33 03/11/18 07:33 Intake and Output: 03/11/18 03/11/18 06:59 18:59 Intake Total 1675 Output Total 415 Balance 1260 - Medications Medications: Current Medications Acetaminophen (Tylenol 325mg Tab) 975 mg PO Q8H [facility] Last Admin: 03/11/18 04:59 Dose: 975 mg Aspirin (Ecotrin) 81 mg PO DAILY [facility] Last Admin: 03/05/18 10:36 Dose: 81 mg Atorvastatin Calcium (Lipitor) 40 mg PO HS [facility] Last Admin: 03/10/18 21:30 Dose: 40 mg Bethanechol Chloride (Urecholine) 25 mg PO TID [facility] Last Admin: 03/10/18 19:41 Dose: 25 mg Carvedilol (Coreg) 6.25 mg PO Q12 [facility] Last Admin: 03/10/18 21:30 Dose: 6.25 mg Clopidogrel Bisulfate (Plavix) 75 mg PO DAILY [facility] Last Admin: 03/09/18 09:34 Dose: Not Given Enoxaparin Sodium (Lovenox) 40 mg SC DAILY [facility] PRN Reason: Protocol Ferrous Sulfate (Feosol) 325 mg PO BID [facility] Last Admin: 03/10/18 16:04 Dose: 325 mg Gabapentin (Neurontin) 100 mg PO Q8H [facility] Last Admin: 03/11/18 05:09 Dose: 100 mg Hydromorphone HCl (Dilaudid) 1 mg IVP Q4H PRN PRN Reason: Pain, severe (8-10) Last Admin: 03/10/18 16:02 Dose: 1 mg Hydromorphone HCl (Dilaudid) 0.5 mg IVP BID [facility] Stop: 03/12/18 15:51 Last Admin: 03/10/18 16:03 Dose: Not Given Piperacillin Sod/Tazobactam (Sod 2.25 gm/ Sodium Chloride) 100 mls @ 100 mls/ hr IVPB Q6 [facility] PRN Reason: Protocol Last Admin: 03/11/18 07:00 Dose: 100 mls/hr Sodium Chloride (Sodium Chloride 0.9%) 1,000 mls @ 75 mls/hr IV .[id number] [facility] Last Admin: 03/10/18 20:25 Dose: 75 mls/hr Insulin Detemir (Levemir) 20 units SC [facility] Last Admin: 03/10/18 21:32 Dose: 20 units Insulin Human Lispro (Humalog) 5 units SC TID [facility] Last Admin: 03/10/18 17:00 Dose: Not Given Losartan Potassium (Cozaar) 25 mg PO DAILY [facility] Last Admin: 03/10/18 08:46 Dose: 25 mg Mirtazapine (Remeron) 30 mg PO [facility] Last Admin: 03/10/18 21:30 Dose: 30 mg Ondansetron HCl (Zofran Inj) 4 mg IVP Q6 PRN PRN Reason: Nausea/Vomiting Oxycodone HCl (Oxycodone Immediate Release Tab) 5 mg PO Q6 PRN PRN Reason: Pain, moderate (4-7) Last Admin: 03/10/18 20:06 Dose: 5 mg Senna/Docusate Sodium (Senokot S 50 Mg-8.6 Mg) 2 tab PO [facility] Last Admin: 03/10/18 21:31 Dose: Not Given - Labs Labs: 03/10/18 13:23 03/10/18 06:00 PT 10.8 Seconds (9.8-13.1) 03/09/18 11:50 INR 1.0 (0.9-1.2) 03/09/18 11:50 APTT 22.3 Seconds (25.6-37.1) L 03/09/18 11:50 - Constitutional Appears: Well, Non-toxic, No Acute Distress - Head Exam Head Exam: ATRAUMATIC, NORMOCEPHALIC - Extremities Exam Additional comments: Dressings to left AKA site c/d/i with no signs of strikethrough noted - Neurological Exam Neurological Exam: Alert, Awake, Oriented x3 - Psychiatric Exam Psychiatric exam: Normal Affect, Normal Mood Assessment and Plan - Assessment and Plan (Free Text) Assessment: 67F seen at bedside this morning two days 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
--- NOTE | 2018-03-11 08:49 | CP.PCM.PN ---
Subjective - Date & Time of Evaluation Date of Evaluation: 03/11/18 Time of Evaluation: 07:30 - Subjective Subjective: 67 y/o F seen and examined by bedside. Pt sleeping, feels tired but reports she is OK. Pt is responsive to voice and tactile stimulation. Pt afebrile, tolerating PO. Pt had 1 episode of vomiting undigested food, pepcid and Reglan give. No overnight events reported. Objective - Vital Signs/Intake and Output Vital Signs (last 24 hours): Temp Pulse Resp BP Pulse Ox 98.9 F 86 18 139/82 97 03/11/18 07:33 03/11/18 07:33 03/11/18 07:33 03/11/18 07:33 03/11/18 07:33 Intake and Output: 03/11/18 03/11/18 06:59 18:59 Intake Total 1675 Output Total 415 Balance 1260 - Medications Medications: Current Medications Acetaminophen (Tylenol 325mg Tab) 975 mg PO Q8H [facility] Last Admin: 03/11/18 04:59 Dose: 975 mg Aspirin (Ecotrin) 81 mg PO DAILY [facility] Last Admin: 03/05/18 10:36 Dose: 81 mg Atorvastatin Calcium (Lipitor) 40 mg PO HS [facility] Last Admin: 03/10/18 21:30 Dose: 40 mg Bethanechol Chloride (Urecholine) 25 mg PO TID [facility] Last Admin: 03/10/18 19:41 Dose: 25 mg Carvedilol (Coreg) 6.25 mg PO Q12 [facility] Last Admin: 03/10/18 21:30 Dose: 6.25 mg Clopidogrel Bisulfate (Plavix) 75 mg PO DAILY [facility] Last Admin: 03/09/18 09:34 Dose: Not Given Enoxaparin Sodium (Lovenox) 40 mg SC DAILY [facility] PRN Reason: Protocol Ferrous Sulfate (Feosol) 325 mg PO BID [facility] Last Admin: 03/10/18 16:04 Dose: 325 mg Gabapentin (Neurontin) 100 mg PO Q8H [facility] Last Admin: 03/11/18 05:09 Dose: 100 mg Hydromorphone HCl (Dilaudid) 1 mg IVP Q4H PRN PRN Reason: Pain, severe (8-10) Last Admin: 03/10/18 16:02 Dose: 1 mg Hydromorphone HCl (Dilaudid) 0.5 mg IVP BID [facility] Stop: 03/12/18 15:51 Last Admin: 03/10/18 16:03 Dose: Not Given Piperacillin Sod/Tazobactam (Sod 2.25 gm/ Sodium Chloride) 100 mls @ 100 mls/ hr IVPB Q6 [facility] PRN Reason: Protocol Last Admin: 03/11/18 07:00 Dose: 100 mls/hr Sodium Chloride (Sodium Chloride 0.9%) 1,000 mls @ 75 mls/hr IV .[id number] [facility] Last Admin: 03/10/18 20:25 Dose: 75 mls/hr Insulin Detemir (Levemir) 20 units SC [facility] Last Admin: 03/10/18 21:32 Dose: 20 units Insulin Human Lispro (Humalog) 5 units SC TID [facility] Last Admin: 03/10/18 17:00 Dose: Not Given Losartan Potassium (Cozaar) 25 mg PO DAILY [facility] Last Admin: 03/10/18 08:46 Dose: 25 mg Mirtazapine (Remeron) 30 mg PO [facility] Last Admin: 03/10/18 21:30 Dose: 30 mg Ondansetron HCl (Zofran Inj) 4 mg IVP Q6 PRN PRN Reason: Nausea/Vomiting Oxycodone HCl (Oxycodone Immediate Release Tab) 5 mg PO Q6 PRN PRN Reason: Pain, moderate (4-7) Last Admin: 03/10/18 20:06 Dose: 5 mg Senna/Docusate Sodium (Senokot S 50 Mg-8.6 Mg) 2 tab PO [facility] Last Admin: 03/10/18 21:31 Dose: Not Given - Labs Labs: 03/10/18 13:23 03/10/18 06:00 PT 10.8 Seconds (9.8-13.1) 03/09/18 11:50 INR 1.0 (0.9-1.2) 03/09/18 11:50 APTT 22.3 Seconds (25.6-37.1) L 03/09/18 11:50 - Constitutional Appears: No Acute Distress - Head Exam Head Exam: NORMAL INSPECTION - Eye Exam Eye Exam: EOMI, Normal appearance, PERRL - ENT Exam ENT Exam: Mucous Membranes Moist - Neck Exam Neck Exam: Normal Inspection - Respiratory Exam Respiratory Exam: Clear to Ausculation Bilateral, NORMAL BREATHING PATTERN - Cardiovascular Exam Cardiovascular Exam: REGULAR RHYTHM, +S1, +S2 - GI/Abdominal Exam GI & Abdominal Exam: Guarding, Rigid, Soft, Normal Bowel Sounds. absent: Tenderness - Rectal Exam Rectal Exam: NORMAL INSPECTION - Extremities Exam Additional comments: Left Lower limb: Dressing and wound wrap in place, clean, dry and intact. - Neurological Exam Neurological Exam: absent: Alert, Awake Assessment and Plan - Assessment and Plan (Free Text) Assessment: 67 yo F with a extensive PMHx, w/ urinary catheter in place, admitted for evaluation and management of UTI . S/P Above Knee Amputation -Performed on 03/09/18. POD 2. -BKA was performed on 01/24/2018 -F/U general surgery recommendations. -Pain control with scheduled Dilaudid and Gabapentin were stopped due to drowsiness. -Will continue with PRN Dilaudid IV Q4H and Oxycodone PRN IV Q6H. Anemia -Received 2 units PRBC's yesterday afternoon -Hgb 11.8 - today. -Feosol 325mg BID, -Monitor H/H. Considering transfuse if Hgb <8.0. UTI -Afebrile. VSS. Asymptomatic -Removed yesterday 03/10/18 -Urine Cx: Klebsiella ESBL-sensitive to Zosyn. -IV Zosyn 2.25gr Q6H; Renally dosed, Day 8. Urinary retention: -Pt discharged from [facility] on 02/26/18 with Urinary catheter in place. -Removed yesterday 03/10/18 -c/w home medications: Bethanechol 25mg TID S/P Hemorrhagic Stroke -02/09/18: Developed stroke in left-parietal occipital region, with a subacute subdural hemorrhage inferior to the temporal lobe. -02/16/18: MRA of the head narrowing of the right cavernous carotid artery due to calcified atherosclerotic plaque -C/w: Aspirin 81mg daily, Plavix 75mg daily DTI -Ulcer of sacrum Stage [id number]. -Healing Stage I ulcer on R heel. -Continue with Wound Care -Dalal in place DM -Insulin Detemir 20 units SC HS -Insulin Lispro decreased to 5 units SC TID -HbA1c 7.3 on 01/15/18. CKD -Stage IV. -C/w home medications Depression -C/w home med: Mirtazapine 30mg PO HTN -C/w home medications -On Losartan 25mg PO daily Prophylaxis -Lovenox 30mg SC Daily; Renally dosed.
[2018-03-11] MEDS ORDERED: Enoxaparin 40 mg Syringe SC SCH (09:00)
[2018-03-11] MEDS: Insulin Lispro (humaLOG) 100 Units/ml Inj SC SCH ×3 (09:04→17:10)
[2018-03-11] MEDS: HYDROmorphone 0.5 mg/0.5 ml ISec IVP SCH (10:27)
[2018-03-11] MEDS: Sodium Chloride 0.9% 1,000 ML IV SCH (10:30)
[2018-03-11 12:19] LABS: HEMOGLOBIN 11.8 g/dL (12.0-16.0); MEAN CELL VOLUME 89.6 fl (81.0-99.0); MEAN CORPUSCULAR HGB CONC 33.5 g/dL (33.0-37.0); RBC 3.92 Mil/uL (3.80-5.20); RED CELL DISTRIBUTION WIDTH 14.8 % (11.5-14.5); WHITE BLOOD COUNT 15.7 K/uL (4.8-10.8)
[2018-03-11 12:33] LABS: ALB/GLOB RATIO 0.9 (1.0-2.1); ALT/SGPT 40 U/L (9-52); AST/SGOT 43 U/L (14-36); BLOOD UREA NITROGEN 23 mg/dl (7-17); CALCIUM 8.4 mg/dL (8.4-10.2); GFR AFRICAN-AMERICAN > 60; GFR NON-AFRICAN AMERICAN 50
[2018-03-11] MEDS: oxyCODONE 5 mg Immediate Release Tab PO PRN (13:35)
[2018-03-11] MEDS: HYDROmorphone 0.5 mg/0.5 ml ISec IVP PRN ×2 (15:06→22:48)
[2018-03-11] MEDS ORDERED: Albuterol-Ipratrop 3 mg / 0.5 (3 ml) UD INH STA (15:19)
[2018-03-11] MEDS ORDERED: methylPREDNISolone 40 MG in Sodium Chloride 0.9% 50 ML IVPB ONE (15:20)
[2018-03-11] MEDS ORDERED: MethylPREDNISolone 40 mg Vial IVP ONE (15:30)
--- NOTE | 2018-03-11 16:54 | RAD ---
HISTORY: sob COMPARISON: 03/04/2018 FINDINGS: LUNGS: Diffuse bilateral interstitial infiltrates. PLEURA: No significant pleural effusion identified, no pneumothorax apparent. CARDIOVASCULAR: Normal. OSSEOUS STRUCTURES: No significant abnormalities. VISUALIZED UPPER ABDOMEN: Normal. OTHER FINDINGS: None. IMPRESSION: Diffuse bilateral interstitial infiltrates.
[2018-03-11 17:07] LABS: TROPONIN I 2.94 ng/mL (0.00-0.120)
[2018-03-11] MEDS ORDERED: Heparin 25,000units in D5W 25,000 UNITS/250 ML BAG IV SCH (17:45)
--- NOTE | 2018-03-11 18:35 | CP.PCM.CON ---
History of Present Illness - History of Present Illness History of Present Illness: Consultation for NSTEM post procedure day # 2 HPI: 67-year-old female with history of severe peripheral vascular occlusive disease hypertension diabetes hyperlipidemia who was treated by me on last admission at which time she had presented with acute limb ischemia. Patient was noted to have acute thrombotic occlusion of her popliteal artery with severe thrombus burden she subsequently underwent below the knee amputation and in a long protracted hospitalization course secondary to multiple complications she now presented with complains of worsening of her stump infection. During the hospitalization she had developed a stroke in the left parieto-occipital region with subacute subdural hemorrhage inferior to the temporal lobe MRA showed narrowing of the right cavernous carotid artery due to calcific atherosclerotic plaque. Her home medications include aspirin Lipitor carvedilol clopidogrel Senokot use of gabapentin insulin losartan mirtazapine a statin and Percocet. No known drug allergies. Past medical history as stated above significant for diabetes hypertension hyperlipidemia VT CVA chronic back pain no left lower extremity BKA urinary retention past surgical history significant for cardiac catheterization severe multivessel disease multiple left foot surgeries family history significant for mom dying of [place] social history ex-smoker quit 35 pack history of smoking or alcohol or illicit drug use. I was consulted for evaluation of chest pains during and Wednesday afternoon at which time she was having severe excruciating chest pains symptoms started after she started having post above- the-knee amputation 2 days postoperative stat EKG was done and troponins were ordered which came back positive at 2.0 she was initiated on IV heparin her blood pressure was somewhat uncontrolled for which IV nitroglycerin was initiated. Review of Systems - Review of Systems Systems not reviewed;Unavailable: Acuity of Condition - Constitutional Constitutional: As Per HPI - EENT Eyes: As Per HPI Ears: As Per HPI Nose/Mouth/Throat: As Per HPI - Breasts Breasts: As Per HPI - Cardiovascular Cardiovascular: As Per HPI - Respiratory Respiratory: As Per HPI - Gastrointestinal Gastrointestinal: As Per HPI - Genitourinary Genitourinary: As Per HPI - Reproductive: Female Reproductive:Female: As Per HPI - Menstruation Menstruation: As Per HPI - Musculoskeletal Musculoskeletal: As Per HPI - Integumentary Integumentary: As Per HPI - Neurological Neurological: As Per HPI - Psychiatric Psychiatric: As Per HPI - Endocrine Endocrine: As Per HPI - Hematologic/Lymphatic Hematologic: As Per HPI Past Patient History - Infectious Disease Hx of Infectious Diseases: None - Tetanus Immunizations Tetanus Immunization: Unknown - Past Medical History & Family History Past Medical History?: Yes - Past Social History Smoking Status: Never Smoked - CARDIAC Hx Hypercholesterolemia: Yes Hx Hypertension: Yes - PULMONARY Hx Respiratory Disorders: No - NEUROLOGICAL HX Cerebrovascular Accident: Yes (left sided weakness) - HEENT Hx HEENT Problems: No - RENAL Hx Chronic Kidney Disease: No - ENDOCRINE/METABOLIC Hx Diabetes Mellitus Type 2: Yes - HEMATOLOGICAL/ONCOLOGICAL Hx Blood Disorders: No Hx AIDS: No Hx Human Immunodeficiency Virus (HIV): No - INTEGUMENTARY Hx Dermatological Problems: No - MUSCULOSKELETAL/RHEUMATOLOGICAL Hx Musculoskeletal Disorders: Yes Hx Falls: Yes (fell 6 months ago) Other/Comment: hx of chronic back pain - GASTROINTESTINAL Hx Gastrointestinal Disorders: No - GENITOURINARY/GYNECOLOGICAL Hx Genitourinary Disorders: No - PSYCHIATRIC Hx Psychophysiologic Disorder: No Hx Substance Use: No - SURGICAL HISTORY Hx Surgeries: Yes Hx Coronary Stent: Yes - ANESTHESIA Hx Anesthesia: Yes Hx Anesthesia Reactions: No Hx Malignant Hyperthermia: No Has any member of the family had a problem w/ anesthesia?: No Meds Allergies/Adverse Reactions: Allergies Allergy/AdvReac Type Severity Reaction Status Date / Time No Known Allergies Allergy Verified 05/14/16 14:21 - Medications Medications: Current Medications Acetaminophen (Tylenol 325mg Tab) 975 mg PO Q8H [facility] Last Admin: 03/11/18 13:25 Dose: Not Given Aspirin (Ecotrin) 81 mg PO DAILY [facility] Last Admin: 03/11/18 10:03 Dose: 81 mg Atorvastatin Calcium (Lipitor) 40 mg PO HS [facility] Last Admin: 03/10/18 21:30 Dose: 40 mg Bethanechol Chloride (Urecholine) 25 mg PO TID [facility] Last Admin: 03/11/18 13:37 Dose: 25 mg Carvedilol (Coreg) 6.25 mg PO Q12 [facility] Last Admin: 03/11/18 10:03 Dose: 6.25 mg Clopidogrel Bisulfate (Plavix) 75 mg PO DAILY [facility] Last Admin: 03/11/18 10:02 Dose: 75 mg Ferrous Sulfate (Feosol) 325 mg PO BID [facility] Last Admin: 03/11/18 10:02 Dose: 325 mg Hydromorphone HCl (Dilaudid) 1 mg IVP Q4H PRN PRN Reason: Pain, severe (8-10) Last Admin: 03/11/18 15:06 Dose: 1 mg Piperacillin Sod/Tazobactam (Sod 2.25 gm/ Sodium Chloride) 100 mls @ 100 mls/ hr IVPB Q6 [facility] PRN Reason: Protocol Last Admin: 03/11/18 16:09 Dose: 100 mls/hr Heparin Sodium/Dextrose (Heparin 25,000 Units/250ml In D5w) 25,000 units in 250 mls @ 6 mls/hr IV .Q24H [facility] PRN Reason: Protocol Insulin Detemir (Levemir) 20 units SC [facility] Last Admin: 03/10/18 21:32 Dose: 20 units Insulin Human Lispro (Humalog) 5 units SC TID [facility] Last Admin: 03/11/18 13:36 Dose: 5 unit Losartan Potassium (Cozaar) 25 mg PO DAILY [facility] Last Admin: 03/11/18 10:02 Dose: 25 mg Ondansetron HCl (Zofran Odt) 4 mg PO Q8H PRN PRN Reason: Nausea/Vomiting Oxycodone HCl (Oxycodone Immediate Release Tab) 5 mg PO Q6 PRN PRN Reason: Pain, moderate (4-7) Last Admin: 03/11/18 13:35 Dose: 5 mg Senna/Docusate Sodium (Senokot S 50 Mg-8.6 Mg) 2 tab PO [facility] Last Admin: 03/10/18 21:31 Dose: Not Given Physical Exam - Constitutional Appears: Well - Head Exam Head Exam: ATRAUMATIC, NORMAL INSPECTION, NORMOCEPHALIC - Eye Exam Eye Exam: EOMI, Normal appearance, PERRL Pupil Exam: NORMAL ACCOMODATION, PERRL - ENT Exam ENT Exam: Mucous Membranes Moist, Normal Exam - Neck Exam Neck exam: Positive for: Normal Inspection - Respiratory Exam Respiratory Exam: Clear to Auscultation Bilateral, NORMAL BREATHING PATTERN - Cardiovascular Exam Cardiovascular Exam: REGULAR RHYTHM - GI/Abdominal Exam GI & Abdominal Exam: Normal Bowel Sounds, Soft. absent: Tenderness - Extremities Exam Extremities exam: Positive for: normal inspection - Back Exam Back exam: NORMAL INSPECTION - Neurological Exam Neurological exam: Alert, CN II-XII Intact, Normal Gait, Oriented x3, Reflexes Normal - Psychiatric Exam Psychiatric exam: Normal Affect, Normal Mood - Skin Skin Exam: Dry, Intact, Normal Color, Warm Results - Vital Signs Recent Vital Signs: Last Vital Signs Temp 97.7 F 03/11/18 15:50 Pulse 111 H 03/11/18 15:50 Resp 22 03/11/18 15:50 BP 170/96 H 03/11/18 16:02 Pulse Ox 97 03/11/18 15:50 - Labs Result Diagrams: 03/13/18 06:02 03/13/18 05:35 Labs: Laboratory Results - last 24 hr 03/09/18 03/09/18 03/10/18 10:25 11:07 21:31 WBC RBC Hgb Hct MCV MCH MCHC RDW Plt Count Sodium Potassium Chloride Carbon Dioxide Anion Gap BUN Creatinine Est GFR ( Amer) Est GFR (Non-Af Amer) POC Glucose (mg/dL) 156 H 212 H Random Glucose Calcium Total Bilirubin AST ALT Alkaline Phosphatase Total Creatine Kinase Troponin I Total Protein Albumin Globulin Albumin/Globulin Ratio Blood Type A POSITIVE Antibody Screen Negative Crossmatch See Detail BBK History Checked Patient has bt 03/11/18 03/11/18 03/11/18 05:07 12:01 12:01 WBC 15.7 H RBC 3.92 Hgb 11.8 L D Hct 35.1 MCV 89.6 MCH 30.0 MCHC 33.5 RDW 14.8 H Plt Count 195 Sodium 141 Potassium 5.0 Chloride 108 H Carbon Dioxide 17 L Anion Gap 21 H BUN 23 H Creatinine 1.1 Est GFR ( Amer) > 60 Est GFR (Non-Af Amer) 50 POC Glucose (mg/dL) 117 H Random Glucose 295 H Calcium 8.4 Total Bilirubin 0.7 AST 43 H D ALT 40 Alkaline Phosphatase 93 Total Creatine Kinase Troponin I Total Protein 6.5 Albumin 3.0 L Globulin 3.5 Albumin/Globulin Ratio 0.9 L Blood Type Antibody Screen Crossmatch BBK History Checked 03/11/18 15:31 WBC RBC Hgb Hct MCV MCH MCHC RDW Plt Count Sodium Potassium Chloride Carbon Dioxide Anion Gap BUN Creatinine Est GFR ( Amer) Est GFR (Non-Af Amer) POC Glucose (mg/dL) Random Glucose Calcium Total Bilirubin AST ALT Alkaline Phosphatase Total Creatine Kinase 175 H Troponin I 2.9400 H* Total Protein Albumin Globulin Albumin/Globulin Ratio Blood Type Antibody Screen Crossmatch BBK History Checked Assessment & Plan (1) NSTEMI (non-ST elevated myocardial infarction) Assessment and Plan: IV heparin asa, plavix statins bb echo telemetry Status: Acute (2) Dyslipidemia Status: Chronic (3) Hx of myocardial infarction Status: Chronic (4) PVD (peripheral vascular disease) Status: Chronic (5) Systolic CHF, chronic Status: Chronic
[2018-03-11] MEDS ORDERED: Nitroglycerin 50mg in D5W 50 MG/250 ML BOTTLE IV ONE (18:43)
[2018-03-11 18:56] LABS: HEMOGLOBIN 11.1 g/dL (12.0-16.0); MEAN CELL VOLUME 88.8 fl (81.0-99.0); MEAN CORPUSCULAR HEMOGLOBIN 30.1 pg (27.0-31.0); MEAN CORPUSCULAR HGB CONC 33.9 g/dL (33.0-37.0); RBC 3.7 Mil/uL (3.80-5.20); WHITE BLOOD COUNT 15.4 K/uL (4.8-10.8)
[2018-03-11 19:09] LABS: INR 1.1 (0.9-1.2); PROTHROMBIN TIME 11.8 Seconds (9.8-13.1)
[2018-03-11 21:38] LABS: ABG ALLEN TEST YES; ARTERIAL BLOOD GAS HCO3 22.6 mmol/L (21-28); ARTERIAL BLOOD GAS O2 SAT 99.2 % (95-98); ARTERIAL BLOOD GAS PCO2 28 mm/Hg (35-45); ARTERIAL BLOOD GAS PH 7.46 (7.35-7.45); ARTERIAL BLOOD GAS PO2 135 mm/Hg (80-100); ARTERIAL BLOOD GAS TCO2 20.8 mmol/L (22-28)
[2018-03-11] MEDS: Docusate-Senna 50 mg-8.6 mg Tab PO SCH ×2 (21:52→22:13)
[2018-03-11] MEDS: Insulin Detemir 100 Units/ml Inj SC SCH (22:11)
[2018-03-12 07:02] LABS: HEMOGLOBIN 11.1 g/dL (12.0-16.0); MEAN CELL VOLUME 88.2 fl (81.0-99.0); RBC 3.7 Mil/uL (3.80-5.20); RED CELL DISTRIBUTION WIDTH 14.7 % (11.5-14.5); WHITE BLOOD COUNT 12.4 K/uL (4.8-10.8)
[2018-03-12 07:17] LABS: ALB/GLOB RATIO 0.8 (1.0-2.1); ALBUMIN 3.1 g/dL (3.5-5.0); ALT/SGPT 42 U/L (9-52); AST/SGOT 30 U/L (14-36); BLOOD UREA NITROGEN 27 mg/dl (7-17); GFR AFRICAN-AMERICAN > 60; GFR NON-AFRICAN AMERICAN 50
[2018-03-12 07:20] LABS: PARTIAL THROMBOPLASTIN TIME 49.1 Seconds (25.6-37.1)
--- NOTE | 2018-03-12 07:29 | CP.PCM.PN ---
Subjective - Date & Time of Evaluation Date of Evaluation: 03/12/18 Time of Evaluation: 06:45 - Subjective Subjective: Patient seen and examined. No acute events over night. Dressing was taken down this morning and wound was examined. Wound appeared clean/dry/intact. DANIELLE drain only had ~20cc's of serosanguinous output over 24 hrs. DANIELLE drain removed. Stump dressed in sterile dressing and jb wrap. Objective - Vital Signs/Intake and Output Vital Signs (last 24 hours): Temp Pulse Resp BP Pulse Ox 97.5 F L 85 20 139/71 100 03/12/18 04:22 03/12/18 04:22 03/12/18 04:22 03/12/18 04:22 03/12/18 04:22 Intake and Output: 03/12/18 03/12/18 06:59 18:59 Intake Total 308 Output Total 21 Balance 287 - Medications Medications: Current Medications Acetaminophen (Tylenol 325mg Tab) 975 mg PO Q8H [facility] Last Admin: 03/12/18 05:38 Dose: Not Given Aspirin (Ecotrin) 81 mg PO DAILY [facility] Last Admin: 03/11/18 10:03 Dose: 81 mg Atorvastatin Calcium (Lipitor) 40 mg PO HS [facility] Last Admin: 03/11/18 21:51 Dose: 40 mg Bethanechol Chloride (Urecholine) 25 mg PO TID [facility] Last Admin: 03/11/18 18:46 Dose: 25 mg Carvedilol (Coreg) 6.25 mg PO Q12 [facility] Last Admin: 03/11/18 21:51 Dose: 6.25 mg Clopidogrel Bisulfate (Plavix) 75 mg PO DAILY [facility] Last Admin: 03/11/18 10:02 Dose: 75 mg Ferrous Sulfate (Feosol) 325 mg PO BID [facility] Last Admin: 03/11/18 18:46 Dose: 325 mg Hydromorphone HCl (Dilaudid) 0.5 mg IVP Q6 PRN PRN Reason: Pain, moderate (4-7) Piperacillin Sod/Tazobactam (Sod 2.25 gm/ Sodium Chloride) 100 mls @ 100 mls/ hr IVPB Q6 [facility] PRN Reason: Protocol Last Admin: 03/12/18 03:41 Dose: 100 mls/hr Heparin Sodium/Dextrose (Heparin 25,000 Units/250ml In D5w) 25,000 units in 250 mls @ 6 mls/hr IV .Q24H [facility] PRN Reason: Protocol Last Admin: 03/11/18 19:12 Dose: 6 mls/hr Nitroglycerin/Dextrose (Nitroglycerin 50 Mg/250 Ml D5w) 50 mg in 250 mls @ 3 mls/hr IV .Q24H [facility]; 10 MCG/MIN PRN Reason: Protocol Stop: 03/12/18 18:42 Last Admin: 03/11/18 20:39 Dose: 3 mls/hr Insulin Detemir (Levemir) 20 units SC [facility] Last Admin: 03/11/18 22:11 Dose: 20 units Insulin Human Lispro (Humalog) 5 units SC TID [facility] Last Admin: 03/11/18 17:10 Dose: 5 unit Losartan Potassium (Cozaar) 25 mg PO DAILY [facility] Last Admin: 03/11/18 10:02 Dose: 25 mg Ondansetron HCl (Zofran Odt) 4 mg PO Q8H PRN PRN Reason: Nausea/Vomiting Oxycodone HCl (Oxycodone Immediate Release Tab) 5 mg PO Q6 PRN PRN Reason: Pain, moderate (4-7) Last Admin: 03/11/18 13:35 Dose: 5 mg Senna/Docusate Sodium (Senokot S 50 Mg-8.6 Mg) 2 tab PO [facility] Last Admin: 03/11/18 22:13 Dose: Not Given - Labs Labs: 03/12/18 04:40 03/12/18 04:40 PT 11.0 Seconds (9.8-13.1) 03/12/18 04:40 INR 1.0 (0.9-1.2) 03/12/18 04:40 APTT 49.1 Seconds (25.6-37.1) H D 03/12/18 04:40 - Constitutional Appears: No Acute Distress - Head Exam Head Exam: NORMOCEPHALIC - Eye Exam Eye Exam: Normal appearance - ENT Exam ENT Exam: Mucous Membranes Moist - Cardiovascular Exam Cardiovascular Exam: +S1, +S2 - GI/Abdominal Exam GI & Abdominal Exam: Soft - Extremities Exam Additional comments: L Stump appears clean/dry/intact - Neurological Exam Neurological Exam: Alert, Awake, Oriented x3 - Psychiatric Exam Psychiatric exam: Normal Mood - Skin Skin Exam: Dry, Intact, Warm Assessment and Plan - Assessment and Plan (Free Text) Assessment: 67F s/p BKA revision via AKA POD 3 Plan: -C/w Abx -Analgesic prn pain -daily dressing changes -Medical management per primary -Further recs per Dr. Gino HOLCOMB PGY2
[2018-03-12] MEDS: HYDROmorphone 0.5 mg/0.5 ml ISec IVP PRN ×3 (07:40→20:48)
[2018-03-12] MEDS: Insulin Lispro (humaLOG) 100 Units/ml Inj SC SCH ×3 (08:00→17:03)
--- NOTE | 2018-03-12 10:08 | CP.PCM.PN ---
Subjective - Date & Time of Evaluation Date of Evaluation: 03/12/18 Time of Evaluation: 08:06 - Subjective Subjective: Patient seen and examined by bedside. Yesterday events noted, present at time of dyspnea. Patient was found to have elevated troponins and symptoms resolved with interventions yesterday. Patient states no acute events overnight. Patient feels well. Tolerating PO diet well. More awake/alert this morning. She states occasional pain from AKA that is controlled with medications. Patient denies sob , chest pain, palpitations, headache, leg swelling, wheezing, or dizziness. No vomiting/nausea/diarrhea. Patient to get Echo completed this morning. Objective - Vital Signs/Intake and Output Vital Signs (last 24 hours): Temp Pulse Resp BP Pulse Ox 98 F 88 18 139/77 100 03/12/18 08:11 03/12/18 09:54 03/12/18 08:11 03/12/18 09:54 03/12/18 08:11 Intake and Output: 03/12/18 03/12/18 06:59 18:59 Intake Total 308 Output Total 21 Balance 287 - Medications Medications: Current Medications Acetaminophen (Tylenol 325mg Tab) 975 mg PO Q8H [facility] Last Admin: 03/12/18 05:38 Dose: Not Given Aspirin (Ecotrin) 81 mg PO DAILY [facility] Last Admin: 03/12/18 09:54 Dose: 81 mg Atorvastatin Calcium (Lipitor) 40 mg PO HS [facility] Last Admin: 03/11/18 21:51 Dose: 40 mg Bethanechol Chloride (Urecholine) 25 mg PO TID [facility] Last Admin: 03/12/18 09:53 Dose: 25 mg Carvedilol (Coreg) 6.25 mg PO Q12 [facility] Last Admin: 03/12/18 09:53 Dose: 6.25 mg Clopidogrel Bisulfate (Plavix) 75 mg PO DAILY [facility] Last Admin: 03/12/18 09:54 Dose: 75 mg Ferrous Sulfate (Feosol) 325 mg PO BID [facility] Last Admin: 03/12/18 09:53 Dose: 325 mg Hydromorphone HCl (Dilaudid) 0.5 mg IVP Q6 PRN PRN Reason: Pain, moderate (4-7) Last Admin: 03/12/18 07:40 Dose: 0.5 mg Piperacillin Sod/Tazobactam (Sod 2.25 gm/ Sodium Chloride) 100 mls @ 100 mls/ hr IVPB Q6 [facility] PRN Reason: Protocol Last Admin: 03/12/18 09:56 Dose: 100 mls/hr Heparin Sodium/Dextrose (Heparin 25,000 Units/250ml In D5w) 25,000 units in 250 mls @ 6 mls/hr IV .Q24H [facility] PRN Reason: Protocol Last Admin: 03/11/18 19:12 Dose: 6 mls/hr Nitroglycerin/Dextrose (Nitroglycerin 50 Mg/250 Ml D5w) 50 mg in 250 mls @ 3 mls/hr IV .Q24H ONE; 10 MCG/MIN PRN Reason: Protocol Stop: 03/12/18 18:42 Last Admin: 03/11/18 20:39 Dose: 3 mls/hr Insulin Detemir (Levemir) 20 units SC [facility] Last Admin: 03/11/18 22:11 Dose: 20 units Insulin Human Lispro (Humalog) 5 units SC TID [facility] Last Admin: 03/12/18 08:00 Dose: 5 unit Losartan Potassium (Cozaar) 25 mg PO DAILY [facility] Last Admin: 03/12/18 09:54 Dose: 25 mg Ondansetron HCl (Zofran Odt) 4 mg PO Q8H PRN PRN Reason: Nausea/Vomiting Oxycodone HCl (Oxycodone Immediate Release Tab) 5 mg PO Q6 PRN PRN Reason: Pain, moderate (4-7) Last Admin: 03/11/18 13:35 Dose: 5 mg Senna/Docusate Sodium (Senokot S 50 Mg-8.6 Mg) 2 tab PO [facility] Last Admin: 03/11/18 22:13 Dose: Not Given - Labs Labs: 03/12/18 04:40 03/12/18 04:40 PT 11.0 Seconds (9.8-13.1) 03/12/18 04:40 INR 1.0 (0.9-1.2) 03/12/18 04:40 APTT 49.1 Seconds (25.6-37.1) H D 03/12/18 04:40 - Constitutional Appears: No Acute Distress - Head Exam Head Exam: ATRAUMATIC, NORMAL INSPECTION, NORMOCEPHALIC - Eye Exam Eye Exam: Normal appearance - Neck Exam Neck Exam: Normal Inspection - Respiratory Exam Respiratory Exam: Clear to Ausculation Bilateral, NORMAL BREATHING PATTERN. absent: Rales, Rhonchi, Wheezes - Cardiovascular Exam Cardiovascular Exam: REGULAR RHYTHM, +S1, +S2. absent: Murmur - GI/Abdominal Exam GI & Abdominal Exam: Soft, Normal Bowel Sounds. absent: Tenderness - Extremities Exam Additional comments: Right lower extremity - no edema, FROM Left lower extremity: Dressing and wound wrap in place, clean, dry and intact. - Back Exam Back Exam: NORMAL INSPECTION - Neurological Exam Neurological Exam: Alert, Awake, Oriented x3 - Psychiatric Exam Psychiatric exam: Normal Affect, Normal Mood - Skin Skin Exam: Dry, Intact, Normal Color, Warm Assessment and Plan - Assessment and Plan (Free Text) Assessment: 67 yo F with a extensive PMHx, w/ urinary catheter in place, admitted for Klebsiella UTI , s/p AKA and NSTEM NSTEMI -Troponin 2.9 yesterday, trending down to 1.6 -Discussed with Dr. Mcdaniel, Scorekeeper at that time -Heparin drip per protocol with PTT q6h -c/w Nitro drip 10mcg, monitor BP -Asymptomatic at this time -Echo Pending S/P Above Knee Amputation -Performed on 03/09/18. POD 3. -BKA was performed on 01/24/2018 -F/U general surgery recommendations. -Will continue with PRN Dilaudid IV Q4H and Oxycodone PRN IV Q6H. Anemia -s/p 2U 03/10 -Hgb 11.8 - today, stable -c/w Feosol 325mg BID, -Monitor H/H. Considering transfuse if Hgb <8.0. UTI - improved -Afebrile. VSS. Asymptomatic -Dalal cath removed 03/10/18 -Urine Cx: Klebsiella ESBL-sensitive to Zosyn. -IV Zosyn 2.25gr Q6H; Renally dosed, Day 9. Urinary retention: -Pt discharged from [facility] on 02/26/18 with Urinary catheter in place. -Removed 03/10/18, has been urinating freely since then -c/w home medications: Bethanechol 25mg TID History of CVA -02/09/18: Developed stroke in left-parietal occipital region, with a subacute subdural hemorrhage inferior to the temporal lobe. -02/16/18: MRA of the head narrowing of the right cavernous carotid artery due to calcified atherosclerotic plaque -C/w: Aspirin 81mg daily, Plavix 75mg daily DTI -Ulcer of sacrum Stage [id number]. -Healing Stage I ulcer on R heel. -Continue with Wound Care -Dalal in place DM -Insulin Detemir 20 units SC HS -Insulin Lispro 5 units SC TID -HbA1c 7.3 on 01/15/18. CKD -Stage IV, improving -C/w home medications HTN -C/w home medications -On Losartan 25mg PO daily Prophylaxis -Lovenox 30mg SC Daily; Renally dosed.
[2018-03-12 11:27] LABS: PROTHROMBIN TIME 11.1 Seconds (9.8-13.1)
[2018-03-12 11:28] LABS: PARTIAL THROMBOPLASTIN TIME 39.3 Seconds (25.6-37.1)
[2018-03-12] MEDS ORDERED: Heparin 25,000units in D5W 25,000 UNITS/250 ML BAG IV SCH (11:59)
[2018-03-12] MEDS: Insulin Detemir 100 Units/ml Inj SC SCH (21:12)
[2018-03-12] MEDS: Docusate-Senna 50 mg-8.6 mg Tab PO SCH (21:16)
[2018-03-13] MEDS: HYDROmorphone 0.5 mg/0.5 ml ISec IVP PRN ×3 (03:44→17:05)
--- NOTE | 2018-03-13 06:56 | CP.PCM.PN ---
Subjective - Date & Time of Evaluation Date of Evaluation: 03/13/18 Time of Evaluation: 06:54 - Subjective Subjective: 67 y/o F seen and examined by bedside. Pt reports feeling OK, chest paressure- pain and SOB have improved since yesterday, not present at this moment. Pt afebrile, tolerating PO, with decreasing appetite. No acute events overnight. -Pt on heparin drip protocol for NSTEMI. Objective - Vital Signs/Intake and Output Vital Signs (last 24 hours): Temp Pulse Resp BP Pulse Ox 97.9 F 78 20 125/69 100 03/13/18 04:58 03/13/18 04:58 03/13/18 04:58 03/13/18 04:58 03/13/18 04:58 - Medications Medications: Current Medications Acetaminophen (Tylenol 325mg Tab) 975 mg PO Q8H [facility] Last Admin: 03/13/18 05:49 Dose: Not Given Aspirin (Ecotrin) 81 mg PO DAILY [facility] Last Admin: 03/12/18 09:54 Dose: 81 mg Atorvastatin Calcium (Lipitor) 40 mg PO HS [facility] Last Admin: 03/12/18 21:10 Dose: 40 mg Bethanechol Chloride (Urecholine) 25 mg PO TID [facility] Last Admin: 03/12/18 17:00 Dose: 25 mg Carvedilol (Coreg) 6.25 mg PO Q12 [facility] Last Admin: 03/12/18 21:10 Dose: 6.25 mg Clopidogrel Bisulfate (Plavix) 75 mg PO DAILY [facility] Last Admin: 03/12/18 09:54 Dose: 75 mg Ferrous Sulfate (Feosol) 325 mg PO BID [facility] Last Admin: 03/12/18 17:00 Dose: 325 mg Hydromorphone HCl (Dilaudid) 0.5 mg IVP Q6 PRN PRN Reason: Pain, moderate (4-7) Last Admin: 03/13/18 03:44 Dose: 0.5 mg Piperacillin Sod/Tazobactam (Sod 2.25 gm/ Sodium Chloride) 100 mls @ 100 mls/ hr IVPB Q6 [facility] PRN Reason: Protocol Last Admin: 03/13/18 03:51 Dose: 100 mls/hr Heparin Sodium/Dextrose (Heparin 25,000 Units/250ml In D5w) 25,000 units in 250 mls @ 0 mls/hr IV .Q0M [facility]; Per Protocol PRN Reason: Protocol Insulin Detemir (Levemir) 20 units SC [facility] Last Admin: 03/12/18 21:12 Dose: 20 units Insulin Human Lispro (Humalog) 5 units SC TID [facility] Last Admin: 03/12/18 17:03 Dose: Not Given Losartan Potassium (Cozaar) 25 mg PO DAILY [facility] Last Admin: 03/12/18 09:54 Dose: 25 mg Ondansetron HCl (Zofran Odt) 4 mg PO Q8H PRN PRN Reason: Nausea/Vomiting Oxycodone HCl (Oxycodone Immediate Release Tab) 5 mg PO Q6 PRN PRN Reason: Pain, moderate (4-7) Last Admin: 03/11/18 13:35 Dose: 5 mg Senna/Docusate Sodium (Senokot S 50 Mg-8.6 Mg) 2 tab PO [facility] Last Admin: 03/12/18 21:16 Dose: Not Given - Labs Labs: 03/12/18 04:40 03/12/18 04:40 PT 11.1 Seconds (9.8-13.1) 03/12/18 10:32 INR 1.0 (0.9-1.2) 03/12/18 10:32 APTT 40.0 Seconds (25.6-37.1) H 03/12/18 19:30 - Constitutional Appears: No Acute Distress, Cachectic, Chronically Ill - Head Exam Head Exam: ATRAUMATIC, NORMAL INSPECTION - Eye Exam Eye Exam: EOMI, Normal appearance - ENT Exam ENT Exam: Mucous Membranes Moist - Neck Exam Neck Exam: Full ROM, Normal Inspection. absent: Meningismus - Respiratory Exam Respiratory Exam: NORMAL BREATHING PATTERN. absent: Decreased Breath Sounds, Rhonchi, Wheezes, Respiratory Distress - Cardiovascular Exam Cardiovascular Exam: +S1, +S2 - GI/Abdominal Exam GI & Abdominal Exam: Soft, Normal Bowel Sounds. absent: Guarding, Rigid, Tenderness - Extremities Exam Extremities Exam: Normal Inspection. absent: Calf Tenderness, Pedal Edema, Tenderness Additional comments: Left LE limb: on dressing that is clean, dry and intact. - Neurological Exam Neurological Exam: Alert, Awake, Oriented x3 Assessment and Plan - Assessment and Plan (Free Text) Assessment: 67 yo F with a extensive PMHx, w/ urinary catheter in place, admitted for Klebsiella UTI , s/p AKA and NSTEM NSTEMI -Troponin 2.9 yesterday, trending down to 1.6 -Dr. Mcdaniel, Geodetic Surveyor, on boad -Heparin drip per protocol with PTT q6h -F/U PPT every 6hrs and modify Heparin drip rate accordingly. -c/w Nitro drip 10mcg, monitor BP -Asymptomatic at this time -Echo Results Pending S/P Above Knee Amputation -Performed on 03/09/18. POD 4. -BKA was performed on 01/24/2018 -F/U general surgery recommendations. -Will continue with PRN Dilaudid IV Q4H and Oxycodone PRN IV Q6H. Anemia -s/p 2U 03/10 -Hgb 9.2 - today, stable -c/w Feosol 325mg BID, -Monitor H/H. Considering transfuse if Hgb <8.0. UTI - improved -Afebrile. VSS. Asymptomatic -Dalal cath removed 03/10/18 -Urine Cx: Klebsiella ESBL-sensitive to Zosyn. -IV Zosyn 2.25gr Q6H; Renally dosed, Day 10. Urinary retention: -Pt discharged from [facility] on 02/26/18 with Urinary catheter in place. -Removed 03/10/18, has been urinating freely since. -c/w home medications: Bethanechol 25mg TID History of CVA -02/09/18: Developed stroke in left-parietal occipital region, with a subacute subdural hemorrhage inferior to the temporal lobe. -02/16/18: MRA of the head narrowing of the right cavernous carotid artery due to calcified atherosclerotic plaque -C/w: Aspirin 81mg daily, Plavix 75mg daily DTI -Ulcer of sacrum Stage [id number]. -Healing Stage I ulcer on R heel. -Continue with Wound Care -Dalal in place DM -Insulin Detemir 20 units SC HS -Insulin Lispro 5 units SC TID -HbA1c 7.3 on 01/15/18. CKD -Stage IV, improving -C/w home medications HTN -C/w home medications -On Losartan 25mg PO daily Prophylaxis -Lovenox 30mg SC Daily; Renally dosed.
[2018-03-13 07:02] LABS: HEMOGLOBIN 9.2 g/dL (12.0-16.0); MEAN CORPUSCULAR HEMOGLOBIN 30.4 pg (27.0-31.0); MEAN CORPUSCULAR HGB CONC 34.1 g/dL (33.0-37.0); RBC 3.04 Mil/uL (3.80-5.20); RED CELL DISTRIBUTION WIDTH 14.7 % (11.5-14.5); WHITE BLOOD COUNT 10.5 K/uL (4.8-10.8)
[2018-03-13 07:12] LABS: BLOOD UREA NITROGEN 25 mg/dl (7-17); CALCIUM 8.5 mg/dL (8.4-10.2); GFR AFRICAN-AMERICAN > 60; GFR NON-AFRICAN AMERICAN 50
--- NOTE | 2018-03-13 08:38 | CP.PCM.PN ---
Subjective - Date & Time of Evaluation Date of Evaluation: 03/13/18 Time of Evaluation: 06:50 - Subjective Subjective: Patient seen and examined. No acute events over night. Stump dressing saturated with blood. Patient remains on heparin gtt. Stump dressing changed. Surgical incision site is clean and dry. Sterile dressing applied. Objective - Vital Signs/Intake and Output Vital Signs (last 24 hours): Temp Pulse Resp BP Pulse Ox 98.1 F 70 18 151/81 H 98 03/13/18 07:48 03/13/18 07:48 03/13/18 07:48 03/13/18 07:48 03/13/18 07:48 - Medications Medications: Current Medications Acetaminophen (Tylenol 325mg Tab) 975 mg PO Q8H [facility] Last Admin: 03/13/18 05:49 Dose: Not Given Aspirin (Ecotrin) 81 mg PO DAILY [facility] Last Admin: 03/12/18 09:54 Dose: 81 mg Atorvastatin Calcium (Lipitor) 40 mg PO HS [facility] Last Admin: 03/12/18 21:10 Dose: 40 mg Bethanechol Chloride (Urecholine) 25 mg PO TID [facility] Last Admin: 03/12/18 17:00 Dose: 25 mg Carvedilol (Coreg) 6.25 mg PO Q12 [facility] Last Admin: 03/12/18 21:10 Dose: 6.25 mg Clopidogrel Bisulfate (Plavix) 75 mg PO DAILY [facility] Last Admin: 03/12/18 09:54 Dose: 75 mg Ferrous Sulfate (Feosol) 325 mg PO BID [facility] Last Admin: 03/12/18 17:00 Dose: 325 mg Hydromorphone HCl (Dilaudid) 0.5 mg IVP Q6 PRN PRN Reason: Pain, moderate (4-7) Last Admin: 03/13/18 03:44 Dose: 0.5 mg Piperacillin Sod/Tazobactam (Sod 2.25 gm/ Sodium Chloride) 100 mls @ 100 mls/ hr IVPB Q6 [facility] PRN Reason: Protocol Last Admin: 03/13/18 03:51 Dose: 100 mls/hr Heparin Sodium/Dextrose (Heparin 25,000 Units/250ml In D5w) 25,000 units in 250 mls @ 0 mls/hr IV .Q0M [facility]; Per Protocol PRN Reason: Protocol Insulin Detemir (Levemir) 20 units SC [facility] Last Admin: 03/12/18 21:12 Dose: 20 units Insulin Human Lispro (Humalog) 5 units SC TID [facility] Last Admin: 03/12/18 17:03 Dose: Not Given Losartan Potassium (Cozaar) 25 mg PO DAILY [facility] Last Admin: 03/12/18 09:54 Dose: 25 mg Ondansetron HCl (Zofran Odt) 4 mg PO Q8H PRN PRN Reason: Nausea/Vomiting Oxycodone HCl (Oxycodone Immediate Release Tab) 5 mg PO Q6 PRN PRN Reason: Pain, moderate (4-7) Last Admin: 03/11/18 13:35 Dose: 5 mg Senna/Docusate Sodium (Senokot S 50 Mg-8.6 Mg) 2 tab PO [facility] Last Admin: 03/12/18 21:16 Dose: Not Given - Labs Labs: 03/13/18 06:02 03/13/18 05:35 PT 11.1 Seconds (9.8-13.1) 03/12/18 10:32 INR 1.0 (0.9-1.2) 03/12/18 10:32 APTT 43.9 Seconds (25.6-37.1) H 03/13/18 05:35 - Constitutional Appears: No Acute Distress - Head Exam Head Exam: NORMOCEPHALIC - Eye Exam Eye Exam: Normal appearance - ENT Exam ENT Exam: Mucous Membranes Moist - Respiratory Exam Respiratory Exam: NORMAL BREATHING PATTERN - Cardiovascular Exam Cardiovascular Exam: +S1, +S2 - GI/Abdominal Exam GI & Abdominal Exam: Soft - Extremities Exam Additional comments: Surgical incision site c/d/i - Neurological Exam Neurological Exam: Alert, Awake, Oriented x3 - Psychiatric Exam Psychiatric exam: Normal Mood - Skin Skin Exam: Dry, Intact, Warm Assessment and Plan - Assessment and Plan (Free Text) Assessment: 67F w/ BKA revision s/p AKA POD 4 Plan: Daily dressing changes Asses site for bleeding Analgesic prn Medical management per primary team Further recs per Dr. Gino HOLCOMB PGY2
[2018-03-13] MEDS: Insulin Lispro (humaLOG) 100 Units/ml Inj SC SCH ×3 (10:00→17:35)
--- NOTE | 2018-03-13 11:04 | CARD ---
APPROVED REPORT EXAM: Two-dimensional and M-mode echocardiogram with Doppler and color Doppler. Other Information Quality : GoodRhythm : NSR INDICATION Elevated Troponin 2D DIMENSIONS IVSd1.30 (0.7-1.1cm)LVDd5.32 (3.9-5.9cm) LVOT Diameter1.95 (1.8-2.4cm)PWd0.66 (0.7-1.1cm) IVSs1.22 (0.8-1.2cm)LVDs4.66 (2.5-4.0cm) FS (%) 12.4 %PWs1.08 (0.8-1.2cm) M-Mode DIMENSIONS Left Atrium (MM)3.97 (2.5-4.0cm)IVSd0.79 (0.7-1.1cm) Aortic Root2.97 (2.2-3.7cm)LVDd6.82 (4.0-5.6cm) Aortic Cusp Exc.1.56 (1.5-2.0cm)PWd0.91 (0.7-1.1cm) IVSs1.06 cmFS (%) 18 % LVDs5.62 (2.0-3.8cm)PWs1.29 cm Mitral Valve MV E Lehykpdr392.8cm/sMV DECEL [id number] A Dqbwksey02.9cm/s MV [id number]/A ratio1.6MVA (PHT)5.81cm2 TDI Lateral E' Peak V6.44cm/sMedial E' Peak V5.30cm/sE/Lateral E'18.1 E/Medial E'22.0 Tricuspid Valve TR Peak [id number]/sRAP [id number] Peak Gr.18mmHg [id number] LEFT VENTRICLE The left ventricle is normal size. There is normal left ventricular wall thickness. The systolic function is mildly to moderately impaired. The Ejection Fraction is 30-35%. There is global hypokinesis of the left ventricle. The left ventricular diastolic function is normal. RIGHT VENTRICLE The right ventricle is normal size. The right ventricular systolic function is normal. ATRIA The left atrium size is normal. The right atrium size is normal. AORTIC VALVE The aortic valve is normal in structure. No aortic regurgitation is present. There is no aortic valvular stenosis. MITRAL VALVE The mitral valve is normal in structure. There is no mitral valve stenosis. Mitral regurgitation is mild to moderate. TRICUSPID VALVE The tricuspid valve is normal in structure. There is trace to mild tricuspid regurgitation. There is no tricuspid valve stenosis. PULMONIC VALVE The pulmonary valve is normal in structure. There is no pulmonic valvular regurgitation. GREAT VESSELS The aortic root is normal in size. The IVC is normal in size and collapses >50% with inspiration. PERICARDIAL EFFUSION The pericardium appears normal. <Conclusion> The left ventricle is normal size. The systolic function is mildly to moderately impaired. The Ejection Fraction is 30-35%. There is global hypokinesis of the left ventricle. Mitral regurgitation is mild to moderate. There is trace to mild tricuspid regurgitation.
--- NOTE | 2018-03-13 14:18 | CP.PCM.PN ---
Subjective - Date & Time of Evaluation Date of Evaluation: 03/12/18 Time of Evaluation: 14:00 - Subjective Subjective: resting in bed TnI trending down BP controlled Echo - EF 30-35% Objective - Vital Signs/Intake and Output Vital Signs (last 24 hours): Temp Pulse Resp BP Pulse Ox 98.2 F 76 18 130/72 98 03/13/18 12:04 03/13/18 12:04 03/13/18 12:04 03/13/18 12:04 03/13/18 12:04 - Medications Medications: Current Medications Acetaminophen (Tylenol 325mg Tab) 975 mg PO Q8H [facility] Last Admin: 03/13/18 14:04 Dose: Not Given Aspirin (Ecotrin) 81 mg PO DAILY [facility] Last Admin: 03/13/18 09:59 Dose: 81 mg Atorvastatin Calcium (Lipitor) 40 mg PO HS [facility] Last Admin: 03/12/18 21:10 Dose: 40 mg Bethanechol Chloride (Urecholine) 25 mg PO TID [facility] Last Admin: 03/13/18 10:00 Dose: 25 mg Carvedilol (Coreg) 6.25 mg PO Q12 [facility] Last Admin: 03/13/18 09:58 Dose: 6.25 mg Clopidogrel Bisulfate (Plavix) 75 mg PO DAILY [facility] Last Admin: 03/13/18 10:00 Dose: 75 mg Ferrous Sulfate (Feosol) 325 mg PO BID [facility] Last Admin: 03/13/18 09:59 Dose: 325 mg Hydromorphone HCl (Dilaudid) 0.5 mg IVP Q6 PRN PRN Reason: Pain, moderate (4-7) Last Admin: 03/13/18 09:58 Dose: 0.5 mg Piperacillin Sod/Tazobactam (Sod 2.25 gm/ Sodium Chloride) 100 mls @ 100 mls/ hr IVPB Q6 [facility] PRN Reason: Protocol Last Admin: 03/13/18 10:01 Dose: 100 mls/hr Heparin Sodium/Dextrose (Heparin 25,000 Units/250ml In D5w) 25,000 units in 250 mls @ 0 mls/hr IV .Q0M [facility]; Per Protocol PRN Reason: Protocol Insulin Detemir (Levemir) 20 units SC [facility] Last Admin: 03/12/18 21:12 Dose: 20 units Insulin Human Lispro (Humalog) 5 units SC TID [facility] Last Admin: 03/13/18 14:04 Dose: Not Given Losartan Potassium (Cozaar) 25 mg PO DAILY [facility] Last Admin: 03/13/18 09:59 Dose: 25 mg Ondansetron HCl (Zofran Odt) 4 mg PO Q8H PRN PRN Reason: Nausea/Vomiting Oxycodone HCl (Oxycodone Immediate Release Tab) 5 mg PO Q6 PRN PRN Reason: Pain, moderate (4-7) Last Admin: 03/11/18 13:35 Dose: 5 mg Senna/Docusate Sodium (Senokot S 50 Mg-8.6 Mg) 2 tab PO HS [facility] Last Admin: 03/12/18 21:16 Dose: Not Given - Labs Labs: 03/13/18 06:02 03/13/18 05:35 PT 11.1 Seconds (9.8-13.1) 03/12/18 10:32 INR 1.0 (0.9-1.2) 03/12/18 10:32 APTT 43.0 Seconds (25.6-37.1) H 03/13/18 11:01 - Constitutional Appears: Well - Head Exam Head Exam: ATRAUMATIC, NORMAL INSPECTION, NORMOCEPHALIC - Eye Exam Eye Exam: EOMI, Normal appearance, PERRL Pupil Exam: NORMAL ACCOMODATION, PERRL - ENT Exam ENT Exam: Mucous Membranes Moist, Normal Exam - Neck Exam Neck Exam: Full ROM, Normal Inspection. absent: Lymphadenopathy - Respiratory Exam Respiratory Exam: Clear to Ausculation Bilateral, NORMAL BREATHING PATTERN - Cardiovascular Exam Cardiovascular Exam: REGULAR RHYTHM, +S1, +S2. absent: Murmur - GI/Abdominal Exam GI & Abdominal Exam: Soft, Normal Bowel Sounds. absent: Tenderness - Extremities Exam Extremities Exam: Full ROM, Normal Capillary Refill, Normal Inspection. absent : Joint Swelling, Pedal Edema - Back Exam Back Exam: NORMAL INSPECTION - Neurological Exam Neurological Exam: Alert, Awake, CN II-XII Intact, Normal Gait, Oriented x3 - Psychiatric Exam Psychiatric exam: Normal Affect, Normal Mood - Skin Skin Exam: Dry, Intact, Normal Color, Warm Assessment and Plan (1) NSTEMI (non-ST elevated myocardial infarction) Assessment & Plan: TnI trending down pt known history of severe CAD Cp free cont IV heparin cont dapt cont bb BP control Status: Acute (2) Dyslipidemia Status: Chronic (3) Hx of myocardial infarction Status: Chronic (4) PVD (peripheral vascular disease) Status: Chronic (5) Systolic CHF, chronic Status: Chronic
[2018-03-13] MEDS: Docusate-Senna 50 mg-8.6 mg Tab PO SCH (22:07)
[2018-03-13] MEDS: Insulin Detemir 100 Units/ml Inj SC SCH (22:08)
[2018-03-13] MEDS: oxyCODONE 5 mg Immediate Release Tab PO PRN (22:10)
[2018-03-14] MEDS: HYDROmorphone 0.5 mg/0.5 ml ISec IVP PRN ×2 (01:33→08:53)
[2018-03-14 05:59] LABS: BLOOD UREA NITROGEN 24 mg/dl (7-17); CALCIUM 8.5 mg/dL (8.4-10.2); GFR AFRICAN-AMERICAN > 60; GFR NON-AFRICAN AMERICAN 50
[2018-03-14 06:02] LABS: MEAN CORPUSCULAR HEMOGLOBIN 30.5 pg (27.0-31.0); MEAN CORPUSCULAR HGB CONC 34.3 g/dL (33.0-37.0); RBC 2.72 Mil/uL (3.80-5.20); RED CELL DISTRIBUTION WIDTH 14.8 % (11.5-14.5); WHITE BLOOD COUNT 11.7 K/uL (4.8-10.8)
[2018-03-14 06:10] LABS: HEMOGLOBIN 8.3 g/dL (12.0-16.0)
[2018-03-14 06:30] LABS: INR 1.1 (0.9-1.2); PROTHROMBIN TIME 11.9 Seconds (9.8-13.1)
[2018-03-14 07:02] LABS: PARTIAL THROMBOPLASTIN TIME 220.3 Seconds (25.6-37.1)
--- NOTE | 2018-03-14 07:05 | CP.PCM.PN ---
Subjective - Date & Time of Evaluation Date of Evaluation: 03/14/18 Time of Evaluation: 07:05 - Subjective Subjective: 67 y/o F seen and examined by bedside. Pt reports feeling regular. Pt c/o L limb pain controlled with medications. Pt c/o mild chest discomfort and mild SOB last night. Pt afebrile, tolerating PO, NO acute events overnight. Objective - Vital Signs/Intake and Output Vital Signs (last 24 hours): Temp Pulse Resp BP Pulse Ox 98.0 F 82 16 124/72 98 03/14/18 05:00 03/14/18 05:00 03/14/18 05:00 03/14/18 05:00 03/14/18 05:00 - Medications Medications: Current Medications Acetaminophen (Tylenol 325mg Tab) 975 mg PO Q8H [facility] Last Admin: 03/14/18 05:21 Dose: Not Given Aspirin (Ecotrin) 81 mg PO DAILY [facility] Last Admin: 03/13/18 09:59 Dose: 81 mg Atorvastatin Calcium (Lipitor) 40 mg PO HS [facility] Last Admin: 03/13/18 22:07 Dose: 40 mg Bethanechol Chloride (Urecholine) 25 mg PO TID [facility] Last Admin: 03/13/18 17:37 Dose: 25 mg Carvedilol (Coreg) 6.25 mg PO Q12 [facility] Last Admin: 03/13/18 22:07 Dose: 6.25 mg Clopidogrel Bisulfate (Plavix) 75 mg PO DAILY [facility] Last Admin: 03/13/18 10:00 Dose: 75 mg Ferrous Sulfate (Feosol) 325 mg PO BID [facility] Last Admin: 03/13/18 17:32 Dose: 325 mg Hydromorphone HCl (Dilaudid) 0.5 mg IVP Q6 PRN PRN Reason: Pain, moderate (4-7) Last Admin: 03/14/18 01:33 Dose: 0.5 mg Piperacillin Sod/Tazobactam (Sod 2.25 gm/ Sodium Chloride) 100 mls @ 100 mls/ hr IVPB Q6 [facility] PRN Reason: Protocol Last Admin: 03/14/18 05:21 Dose: 100 mls/hr Heparin Sodium/Dextrose (Heparin 25,000 Units/250ml In D5w) 25,000 units in 250 mls @ 0 mls/hr IV .Q0M [facility]; Per Protocol PRN Reason: Protocol Insulin Detemir (Levemir) 20 units SC HS [facility] Last Admin: 03/13/18 22:08 Dose: 20 units Insulin Human Lispro (Humalog) 5 units SC TID [facility] Last Admin: 03/13/18 17:35 Dose: 5 unit Losartan Potassium (Cozaar) 25 mg PO DAILY [facility] Last Admin: 03/13/18 09:59 Dose: 25 mg Ondansetron HCl (Zofran Odt) 4 mg PO Q8H PRN PRN Reason: Nausea/Vomiting Oxycodone HCl (Oxycodone Immediate Release Tab) 5 mg PO Q6 PRN PRN Reason: Pain, moderate (4-7) Last Admin: 03/13/18 22:10 Dose: 5 mg Senna/Docusate Sodium (Senokot S 50 Mg-8.6 Mg) 2 tab PO [facility] Last Admin: 03/13/18 22:07 Dose: 2 tab - Labs Labs: 03/14/18 04:30 03/14/18 04:30 PT 11.9 Seconds (9.8-13.1) 03/14/18 04:30 INR 1.1 (0.9-1.2) 03/14/18 04:30 APTT 220.3 Seconds (25.6-37.1) H* D 03/14/18 04:30 - Constitutional Appears: No Acute Distress - Head Exam Head Exam: NORMAL INSPECTION - Eye Exam Eye Exam: EOMI, Normal appearance - ENT Exam ENT Exam: Mucous Membranes Dry - Neck Exam Neck Exam: Full ROM. absent: Lymphadenopathy, Meningismus - Respiratory Exam Respiratory Exam: Rales (over b/l loower barrios. ), NORMAL BREATHING PATTERN - Cardiovascular Exam Cardiovascular Exam: +S1, +S2 - GI/Abdominal Exam GI & Abdominal Exam: Soft, Normal Bowel Sounds. absent: Guarding, Rigid, Tenderness, Rebound - Extremities Exam Extremities Exam: Full ROM, Normal Inspection. absent: Calf Tenderness Additional comments: Left LE: dressing on limb in place and soaked in blood. - Neurological Exam Neurological Exam: Alert, Awake, Oriented x3 Assessment and Plan - Assessment and Plan (Free Text) Assessment: 67 yo F with a extensive PMHx, w/ urinary catheter in place, admitted for Klebsiella UTI , s/p AKA and NSTEMI PLAN: Anemia -Hgb 8.3-today-Pt with cardiac disease will benefit from blood transfusion. -2 PRBC's will be transfused. -c/w Feosol 325mg BID, NSTEMI -Troponin 2.9-2 days ago trending down to 0.9 today 03/14/18 -Echo Results: mild/moderate impaired LV systolic function, LVEF 30-35%, LV global hypokinesis, MR and mild TR. -Dr. Mcdaniel, Tower Ere[employer], on board -Heparin drip discontinued. -Asymptomatic at this time -Will follow PT/OT recommendations. S/P Above Knee Amputation -Performed on 03/09/18. POD 4. -BKA was performed on 01/24/2018 -F/U general surgery recommendations. -Will continue with PRN Dilaudid IV Q4H and Oxycodone PRN IV Q6H. -Will follow PT/OT recommendations. UTI - improved -Afebrile. VSS. Asymptomatic -Dalal cath removed 03/10/18 -Urine Cx: Klebsiella ESBL-sensitive to Zosyn. -D/C'ed IV Zosyn 2.25gr Q6H Urinary retention: -Pt discharged from [facility] on 02/26/18 with Urinary catheter in place. -Removed 03/10/18, has been urinating freely since. -c/w home medications: Bethanechol 25mg TID History of CVA -02/09/18: Developed stroke in left-parietal occipital region, with a subacute subdural hemorrhage inferior to the temporal lobe. -02/16/18: MRA of the head narrowing of the right cavernous carotid artery due to calcified atherosclerotic plaque -C/w: Aspirin 81mg daily, Plavix 75mg daily DTI -Ulcer of sacrum Stage [id number]. -Healing Stage I ulcer on R heel. -Continue with Wound Care -Dalal in place DM -Insulin Detemir 20 units SC HS -Insulin Lispro 5 units SC TID -HbA1c 7.3 on 01/15/18. CKD -Stage IV, improving -C/w home medications HTN -C/w home medications -On Losartan 25mg PO daily Prophylaxis -Lovenox 30mg SC Daily; Renally dosed.
--- NOTE | 2018-03-14 07:54 | CP.PCM.PN ---
Subjective - Date & Time of Evaluation Date of Evaluation: 03/14/18 Time of Evaluation: 07:52 - Subjective Subjective: feeling fine no more cp Hgb trending down Objective - Vital Signs/Intake and Output Vital Signs (last 24 hours): Temp Pulse Resp BP Pulse Ox 98.0 F 82 16 124/72 98 03/14/18 05:00 03/14/18 05:00 03/14/18 05:00 03/14/18 05:00 03/14/18 05:00 - Medications Medications: Current Medications Acetaminophen (Tylenol 325mg Tab) 975 mg PO Q8H [facility] Last Admin: 03/14/18 05:21 Dose: Not Given Aspirin (Ecotrin) 81 mg PO DAILY [facility] Last Admin: 03/13/18 09:59 Dose: 81 mg Atorvastatin Calcium (Lipitor) 40 mg PO HS [facility] Last Admin: 03/13/18 22:07 Dose: 40 mg Bethanechol Chloride (Urecholine) 25 mg PO TID [facility] Last Admin: 03/13/18 17:37 Dose: 25 mg Carvedilol (Coreg) 6.25 mg PO Q12 [facility] Last Admin: 03/13/18 22:07 Dose: 6.25 mg Clopidogrel Bisulfate (Plavix) 75 mg PO DAILY [facility] Last Admin: 03/13/18 10:00 Dose: 75 mg Ferrous Sulfate (Feosol) 325 mg PO BID [facility] Last Admin: 03/13/18 17:32 Dose: 325 mg Hydromorphone HCl (Dilaudid) 0.5 mg IVP Q6 PRN PRN Reason: Pain, moderate (4-7) Last Admin: 03/14/18 01:33 Dose: 0.5 mg Piperacillin Sod/Tazobactam (Sod 2.25 gm/ Sodium Chloride) 100 mls @ 100 mls/ hr IVPB Q6 [facility] PRN Reason: Protocol Last Admin: 03/14/18 05:21 Dose: 100 mls/hr Insulin Detemir (Levemir) 20 units SC HS [facility] Last Admin: 03/13/18 22:08 Dose: 20 units Insulin Human Lispro (Humalog) 5 units SC TID [facility] Last Admin: 03/13/18 17:35 Dose: 5 unit Losartan Potassium (Cozaar) 25 mg PO DAILY [facility] Last Admin: 03/13/18 09:59 Dose: 25 mg Ondansetron HCl (Zofran Odt) 4 mg PO Q8H PRN PRN Reason: Nausea/Vomiting Oxycodone HCl (Oxycodone Immediate Release Tab) 5 mg PO Q6 PRN PRN Reason: Pain, moderate (4-7) Last Admin: 03/13/18 22:10 Dose: 5 mg Senna/Docusate Sodium (Senokot S 50 Mg-8.6 Mg) 2 tab PO HS [facility] Last Admin: 03/13/18 22:07 Dose: 2 tab - Labs Labs: 03/14/18 04:30 03/14/18 04:30 PT 11.9 Seconds (9.8-13.1) 03/14/18 04:30 INR 1.1 (0.9-1.2) 03/14/18 04:30 APTT 220.3 Seconds (25.6-37.1) H* D 03/14/18 04:30 - Constitutional Appears: Well - Head Exam Head Exam: ATRAUMATIC, NORMAL INSPECTION, NORMOCEPHALIC - Eye Exam Eye Exam: EOMI, Normal appearance, PERRL Pupil Exam: NORMAL ACCOMODATION, PERRL - ENT Exam ENT Exam: Mucous Membranes Moist, Normal Exam - Neck Exam Neck Exam: Full ROM, Normal Inspection. absent: Lymphadenopathy - Respiratory Exam Respiratory Exam: Clear to Ausculation Bilateral, NORMAL BREATHING PATTERN - Cardiovascular Exam Cardiovascular Exam: REGULAR RHYTHM, +S1, +S2. absent: Murmur - GI/Abdominal Exam GI & Abdominal Exam: Soft, Normal Bowel Sounds. absent: Tenderness - Extremities Exam Extremities Exam: Full ROM, Normal Capillary Refill, Normal Inspection. absent : Joint Swelling, Pedal Edema - Back Exam Back Exam: NORMAL INSPECTION - Neurological Exam Neurological Exam: Alert, Awake, CN II-XII Intact, Normal Gait, Oriented x3 - Psychiatric Exam Psychiatric exam: Normal Affect, Normal Mood - Skin Skin Exam: Dry, Intact, Normal Color, Warm Assessment and Plan (1) NSTEMI (non-ST elevated myocardial infarction) Assessment & Plan: dc Iv heparin cont asa, plavix cont statinsn cont bb, statins cont imdur transfuse to keep hgb > 9 Status: Acute (2) Dyslipidemia Assessment & Plan: statins Status: Chronic (3) Hx of myocardial infarction Status: Chronic (4) PVD (peripheral vascular disease) Status: Chronic (5) Systolic CHF, chronic Status: Chronic
[2018-03-14] MEDS: Insulin Lispro (humaLOG) 100 Units/ml Inj SC SCH ×3 (08:59→16:27)
--- NOTE | 2018-03-14 09:41 | CP.PCM.PN ---
Subjective - Date & Time of Evaluation Date of Evaluation: 03/14/18 Time of Evaluation: 09:37 - Subjective Subjective: 67F seen 5 days s/p L AKA. Patient is AAO x 3 and NAD, resting comfortably in bed. Denies any acute overnight events. States that pain is still present but well controlled. Denies any further complaints at this time. Denies any recent N /V/F/C/CP/SOB/D Objective - Vital Signs/Intake and Output Vital Signs (last 24 hours): Temp Pulse Resp BP Pulse Ox 97.9 F 83 18 147/82 100 03/14/18 07:55 03/14/18 08:58 03/14/18 07:55 03/14/18 08:58 03/14/18 07:55 - Medications Medications: Current Medications Acetaminophen (Tylenol 325mg Tab) 975 mg PO Q8H [facility] Last Admin: 03/14/18 05:21 Dose: Not Given Aspirin (Ecotrin) 81 mg PO DAILY [facility] Last Admin: 03/14/18 08:58 Dose: 81 mg Atorvastatin Calcium (Lipitor) 40 mg PO HS [facility] Last Admin: 03/13/18 22:07 Dose: 40 mg Bethanechol Chloride (Urecholine) 25 mg PO TID [facility] Last Admin: 03/14/18 09:00 Dose: 25 mg Carvedilol (Coreg) 6.25 mg PO Q12 [facility] Last Admin: 03/14/18 08:57 Dose: 6.25 mg Clopidogrel Bisulfate (Plavix) 75 mg PO DAILY [facility] Last Admin: 03/14/18 08:59 Dose: 75 mg Ferrous Sulfate (Feosol) 325 mg PO BID [facility] Last Admin: 03/14/18 08:59 Dose: 325 mg Hydromorphone HCl (Dilaudid) 0.5 mg IVP Q6 PRN PRN Reason: Pain, moderate (4-7) Last Admin: 03/14/18 08:53 Dose: 0.5 mg Piperacillin Sod/Tazobactam (Sod 2.25 gm/ Sodium Chloride) 100 mls @ 100 mls/ hr IVPB Q6 [facility] PRN Reason: Protocol Last Admin: 03/14/18 09:00 Dose: 100 mls/hr Insulin Detemir (Levemir) 20 units SC [facility] Last Admin: 05/20/18 22:08 Dose: 20 units Insulin Human Lispro (Humalog) 5 units SC TID [facility] Last Admin: 03/14/18 08:59 Dose: Not Given Isosorbide Mononitrate (Imdur Er) 30 mg PO DAILY [facility] Losartan Potassium (Cozaar) 25 mg PO DAILY [facility] Last Admin: 03/14/18 08:58 Dose: 25 mg Ondansetron HCl (Zofran Odt) 4 mg PO Q8H PRN PRN Reason: Nausea/Vomiting Oxycodone HCl (Oxycodone Immediate Release Tab) 5 mg PO Q6 PRN PRN Reason: Pain, moderate (4-7) Last Admin: 03/13/18 22:10 Dose: 5 mg Senna/Docusate Sodium (Senokot S 50 Mg-8.6 Mg) 2 tab PO HS [facility] Last Admin: 03/13/18 22:07 Dose: 2 tab - Labs Labs: 03/14/18 04:30 03/14/18 04:30 PT 11.9 Seconds (9.8-13.1) 03/14/18 04:30 INR 1.1 (0.9-1.2) 03/14/18 04:30 APTT 220.3 Seconds (25.6-37.1) H* D 03/14/18 04:30 - Constitutional Appears: Well, Non-toxic, No Acute Distress - Head Exam Head Exam: ATRAUMATIC, NORMOCEPHALIC - Extremities Exam Additional comments: Sanguinous strikethrough noted to patient's dressings, improving Skin edges are well coapted with no signs of dehiscence and all marci noted to be in place No signs of necrosis to incision site edges No clinical signs of infection noted - Neurological Exam Neurological Exam: Alert, Awake, Oriented x3 - Psychiatric Exam Psychiatric exam: Normal Affect, Normal Mood Assessment and Plan - Assessment and Plan (Free Text) Assessment: 67F seen 5 days s/p L AKA Plan: WBC 11.7 from 10.5, afebrile Pain meds Anticoags Abx F/u H and H after transfusion of one unit PRBC Incentive spirometer No plan for further surgical intervention at this time Will continue to monitor H/H and patient's bleeding from surgical site
[2018-03-14] MEDS ORDERED: HYDROmorphone 0.5 mg/0.5 ml ISec IVP PRN (11:31)
[2018-03-14] MEDS: oxyCODONE 5 mg Immediate Release Tab PO PRN ×2 (12:17→18:45)
--- NOTE | 2018-03-14 17:29 | PN ---
DATE: 03/13/2018 Betina Nuñez was seen on Wednesday about noon. There was some bleeding from the stump. Adalid-Garcia is in place. The wound had been wet from blood. The hemoglobin this morning was 8.3. The patient is presently on heparin treatment for non-STEMI. This morning, the PTT is 200. Presently, this continued. We will follow the hemoglobin. But for now, no surgical intervention was planned. Dario Christian MD
[2018-03-14] MEDS: HYDROmorphone 0.5 mg/0.5 ml ISec IVP SCH (21:53)
[2018-03-14] MEDS: Docusate-Senna 50 mg-8.6 mg Tab PO SCH (21:54)
[2018-03-14] MEDS: Insulin Detemir 100 Units/ml Inj SC SCH (21:58)
[2018-03-15] MEDS: HYDROmorphone 0.5 mg/0.5 ml ISec IVP SCH ×5 (00:16→10:53)
[2018-03-15] MEDS: oxyCODONE 5 mg Immediate Release Tab PO PRN ×3 (00:18→20:13)
[2018-03-15 05:40] LABS: HEMOGLOBIN 10.2 g/dL (12.0-16.0); MEAN CELL VOLUME 89.3 fl (81.0-99.0); MEAN CORPUSCULAR HEMOGLOBIN 30.8 pg (27.0-31.0); MEAN CORPUSCULAR HGB CONC 34.5 g/dL (33.0-37.0); RBC 3.32 Mil/uL (3.80-5.20); RED CELL DISTRIBUTION WIDTH 15.2 % (11.5-14.5); WHITE BLOOD COUNT 9.1 K/uL (4.8-10.8)
[2018-03-15 05:50] LABS: CALCIUM 8.7 mg/dL (8.4-10.2)
[2018-03-15] MEDS ORDERED: Cellulose Hemostat 2X3 Sheet ONE (08:17)
--- NOTE | 2018-03-15 08:27 | CP.PCM.PN ---
Subjective - Date & Time of Evaluation Date of Evaluation: 03/15/18 Time of Evaluation: 07:25 - Subjective Subjective: 67 y/o F seen and examined by bedside. Pt reports feeling OK. Pt reports having generalized body aches last night but improves with medications. Pt afebrile, tolerating PO, decreased appetite. Pt reports urinating normally with NO difficulties. Pt denies chest pain, SOB, dizziness, headache, nausea or peripheral edema. Objective - Vital Signs/Intake and Output Vital Signs (last 24 hours): Temp Pulse Resp BP Pulse Ox 97.6 F 82 18 136/60 99 03/15/18 07:44 03/15/18 07:54 03/15/18 07:44 03/15/18 07:44 03/15/18 07:44 - Medications Medications: Current Medications Acetaminophen (Tylenol 325mg Tab) 975 mg PO Q8H [facility] Last Admin: 03/15/18 05:39 Dose: Not Given Aspirin (Ecotrin) 81 mg PO DAILY [facility] Last Admin: 03/14/18 08:58 Dose: 81 mg Atorvastatin Calcium (Lipitor) 40 mg PO HS [facility] Last Admin: 03/14/18 21:55 Dose: 40 mg Bethanechol Chloride (Urecholine) 25 mg PO TID [facility] Last Admin: 03/14/18 16:27 Dose: 25 mg Carvedilol (Coreg) 6.25 mg PO Q12 [facility] Last Admin: 03/14/18 21:54 Dose: 6.25 mg Clopidogrel Bisulfate (Plavix) 75 mg PO DAILY [facility] Last Admin: 03/14/18 08:59 Dose: 75 mg Ferrous Sulfate (Feosol) 325 mg PO BID [facility] Last Admin: 03/14/18 16:29 Dose: 325 mg Hydromorphone HCl (Dilaudid) 0.5 mg IVP Q4 [facility] Last Admin: 03/15/18 06:00 Dose: Not Given Hydromorphone HCl (Dilaudid) 0.5 mg IVP Q8 [facility] Last Admin: 03/15/18 00:17 Dose: Not Given Insulin Detemir (Levemir) 20 units SC [facility] Last Admin: 03/14/18 21:58 Dose: 20 units Insulin Human Lispro (Humalog) 5 units SC TID [facility] Last Admin: 03/14/18 16:27 Dose: 5 unit Isosorbide Mononitrate (Imdur Er) 30 mg PO DAILY [facility] Last Admin: 03/14/18 12:19 Dose: 30 mg Losartan Potassium (Cozaar) 25 mg PO DAILY [facility] Last Admin: 03/14/18 08:58 Dose: 25 mg Ondansetron HCl (Zofran Odt) 4 mg PO Q8H PRN PRN Reason: Nausea/Vomiting Oxycodone HCl (Oxycodone Immediate Release Tab) 5 mg PO Q6 PRN PRN Reason: Pain, moderate (4-7) Last Admin: 03/15/18 00:18 Dose: 5 mg Senna/Docusate Sodium (Senokot S 50 Mg-8.6 Mg) 2 tab PO HS [facility] Last Admin: 03/14/18 21:54 Dose: Not Given - Labs Labs: 03/15/18 04:20 03/15/18 04:20 PT 11.9 Seconds (9.8-13.1) 03/14/18 04:30 INR 1.1 (0.9-1.2) 03/14/18 04:30 APTT 220.3 Seconds (25.6-37.1) H* D 03/14/18 04:30 - Constitutional Appears: No Acute Distress - Head Exam Head Exam: ATRAUMATIC - Eye Exam Eye Exam: EOMI, Normal appearance - ENT Exam ENT Exam: Mucous Membranes Moist - Neck Exam Neck Exam: Full ROM. absent: Lymphadenopathy, Meningismus - Respiratory Exam Respiratory Exam: NORMAL BREATHING PATTERN. absent: Rhonchi, Wheezes, Respiratory Distress - Cardiovascular Exam Cardiovascular Exam: +S1, +S2 - GI/Abdominal Exam GI & Abdominal Exam: Soft. absent: Distended, Guarding, Rigid, Tenderness - Extremities Exam Additional comments: Left LE: dressing on limb in place and partially soaked in blood. - Neurological Exam Neurological Exam: Alert, Awake, Oriented x3 Assessment and Plan - Assessment and Plan (Free Text) Assessment: 67 yo F with a extensive PMHx, w/ urinary catheter in place, admitted for Klebsiella UTI , s/p AKA and NSTEMI PLAN: Anemia -Hgb 10.2- today. S/P 2 PRBC's yesterday -c/w Feosol 325mg BID -Monitor CBC Chronic Heart Failure-systolic dysfunction-s/p NSTEMI -Advanced CAD with poor overall prognosis -Echo Results: mild/moderate impaired LV systolic function, LVEF 30-35%, LV global hypokinesis, MR and mild TR. -Dr. Mcdaniel, [employer] Operator, on board -Asymptomatic at this time -Troponin 3x were WNL yesterday. -Will follow PT/OT recommendations. S/P Above Knee Amputation -Performed on 03/09/18. POD 4. -F/U general surgery recommendations. -Will continue with PRN Dilaudid IV Q4H and Dilauid Q8H [facility]. -Will follow PT/OT recommendations. UTI - improved -Afebrile. VSS. Asymptomatic -Dalal cath removed 03/10/18 -Urine Cx: Klebsiella ESBL-sensitive to Zosyn. -Completed 7 day of IV Zosyn therapy. Urinary retention: -c/w home medications: Bethanechol 25mg TID History of CVA -02/09/18: Developed stroke in left-parietal occipital region, with a subacute subdural hemorrhage inferior to the temporal lobe. -02/16/18: MRA of the head narrowing of the right cavernous carotid artery due to calcified atherosclerotic plaque -C/w: Aspirin 81mg daily, Plavix 75mg daily DTI -Ulcer of sacrum Stage [id number]. -Healing Stage I ulcer on R heel. -Continue with Wound Care DM -Blood sugar levels unremarkable. -Insulin Detemir 20 units SC HS -Insulin Lispro 5 units SC TID -HbA1c 7.3 on 01/15/18. CKD -Stage IV, improving -C/w home medications HTN -C/w home medications -On Losartan 25mg PO daily Prophylaxis -Lovenox 30mg SC Daily; Renally dosed.
[2018-03-15] MEDS: Insulin Lispro (humaLOG) 100 Units/ml Inj SC SCH ×3 (08:31→16:56)
--- NOTE | 2018-03-15 08:43 | CP.PCM.PN ---
Subjective - Date & Time of Evaluation Date of Evaluation: 03/15/18 Time of Evaluation: 08:41 - Subjective Subjective: 67F seen 6 days s/p L AKA. Patient is AAO x 3 and NAD, resting comfortably in bed. Denies any acute overnight events. States that pain is still present but well controlled with medication. Denies any further complaints at this time. Denies any recent N/V/F/C/CP/SOB/D. Patient is on Heparin drip following NSTEMI on 03/12/18 Objective - Vital Signs/Intake and Output Vital Signs (last 24 hours): Temp Pulse Resp BP Pulse Ox 97.6 F 82 18 136/60 99 03/15/18 07:44 03/15/18 08:30 03/15/18 07:44 03/15/18 08:30 03/15/18 07:44 - Medications Medications: Current Medications Acetaminophen (Tylenol 325mg Tab) 975 mg PO Q8H [facility] Last Admin: 03/15/18 05:39 Dose: Not Given Aspirin (Ecotrin) 81 mg PO DAILY [facility] Last Admin: 03/15/18 08:29 Dose: 81 mg Atorvastatin Calcium (Lipitor) 40 mg PO HS [facility] Last Admin: 03/14/18 21:55 Dose: 40 mg Bethanechol Chloride (Urecholine) 25 mg PO TID [facility] Last Admin: 03/15/18 08:29 Dose: 25 mg Carvedilol (Coreg) 6.25 mg PO Q12 [facility] Last Admin: 03/15/18 08:30 Dose: 6.25 mg Clopidogrel Bisulfate (Plavix) 75 mg PO DAILY [facility] Last Admin: 03/15/18 08:28 Dose: 75 mg Ferrous Sulfate (Feosol) 325 mg PO BID [facility] Last Admin: 03/15/18 08:29 Dose: 325 mg Hydromorphone HCl (Dilaudid) 0.5 mg IVP Q4 [facility] Last Admin: 03/15/18 06:00 Dose: Not Given Hydromorphone HCl (Dilaudid) 0.5 mg IVP Q8 [facility] Last Admin: 03/15/18 00:17 Dose: Not Given Insulin Detemir (Levemir) 20 units SC HS [facility] Last Admin: 03/14/18 21:58 Dose: 20 units Insulin Human Lispro (Humalog) 5 units SC TID [facility] Last Admin: 05/22/18 08:31 Dose: Not Given Isosorbide Mononitrate (Imdur Er) 30 mg PO DAILY [facility] Last Admin: 03/15/18 08:29 Dose: 30 mg Losartan Potassium (Cozaar) 25 mg PO DAILY [facility] Last Admin: 03/14/18 08:58 Dose: 25 mg Ondansetron HCl (Zofran Odt) 4 mg PO Q8H PRN PRN Reason: Nausea/Vomiting Oxycodone HCl (Oxycodone Immediate Release Tab) 5 mg PO Q6 PRN PRN Reason: Pain, moderate (4-7) Last Admin: 03/15/18 08:28 Dose: 5 mg Senna/Docusate Sodium (Senokot S 50 Mg-8.6 Mg) 2 tab PO HS [facility] Last Admin: 03/14/18 21:54 Dose: Not Given - Labs Labs: 03/15/18 04:20 03/15/18 04:20 PT 11.9 Seconds (9.8-13.1) 03/14/18 04:30 INR 1.1 (0.9-1.2) 03/14/18 04:30 APTT 220.3 Seconds (25.6-37.1) H* D 03/14/18 04:30 - Constitutional Appears: Well, Non-toxic, No Acute Distress - Head Exam Head Exam: ATRAUMATIC, NORMOCEPHALIC - Extremities Exam Additional comments: Sanguinous strikethrough continues to be noted to patient's dressings Skin edges are well coapted with no signs of dehiscence and all marci/sutures noted to be in place No signs of necrosis to incision site edges with CFT < 3 seconds No clinical signs of infection noted at this time - Neurological Exam Neurological Exam: Alert, Awake, Oriented x3 - Psychiatric Exam Psychiatric exam: Normal Affect, Normal Mood Assessment and Plan - Assessment and Plan (Free Text) Assessment: 67F seen 6 days s/p L AKA Plan: Afebrile, absent leukocytosis (WBC 9.1 from 11.7) Pain meds Anticoags H/H improved after 2 units PRBCs yesterday Dressing changed with surgicel, kirlix, SHABBIR Will continue to follow
--- NOTE | 2018-03-15 08:50 | CP.PCM.PN ---
Subjective - Date & Time of Evaluation Date of Evaluation: 03/15/18 Time of Evaluation: 08:49 - Subjective Subjective: TnI down to 0.8 LAD territory infarct on echo pt CP free Objective - Vital Signs/Intake and Output Vital Signs (last 24 hours): Temp Pulse Resp BP Pulse Ox 97.6 F 82 18 136/60 99 03/15/18 07:44 03/15/18 08:30 03/15/18 07:44 03/15/18 08:30 03/15/18 07:44 - Medications Medications: Current Medications Acetaminophen (Tylenol 325mg Tab) 975 mg PO Q8H [facility] Last Admin: 03/15/18 05:39 Dose: Not Given Aspirin (Ecotrin) 81 mg PO DAILY [facility] Last Admin: 03/15/18 08:29 Dose: 81 mg Atorvastatin Calcium (Lipitor) 40 mg PO HS [facility] Last Admin: 03/14/18 21:55 Dose: 40 mg Bethanechol Chloride (Urecholine) 25 mg PO TID [facility] Last Admin: 03/15/18 08:29 Dose: 25 mg Carvedilol (Coreg) 6.25 mg PO Q12 [facility] Last Admin: 03/15/18 08:30 Dose: 6.25 mg Clopidogrel Bisulfate (Plavix) 75 mg PO DAILY [facility] Last Admin: 03/15/18 08:28 Dose: 75 mg Ferrous Sulfate (Feosol) 325 mg PO BID [facility] Last Admin: 03/15/18 08:29 Dose: 325 mg Hydromorphone HCl (Dilaudid) 0.5 mg IVP Q4 [facility] Last Admin: 03/15/18 06:00 Dose: Not Given Hydromorphone HCl (Dilaudid) 0.5 mg IVP Q8 [facility] Last Admin: 03/15/18 00:17 Dose: Not Given Insulin Detemir (Levemir) 20 units SC [facility] Last Admin: 03/14/18 21:58 Dose: 20 units Insulin Human Lispro (Humalog) 5 units SC TID [facility] Last Admin: 03/15/18 08:31 Dose: Not Given Isosorbide Mononitrate (Imdur Er) 30 mg PO DAILY [facility] Last Admin: 03/15/18 08:29 Dose: 30 mg Losartan Potassium (Cozaar) 25 mg PO DAILY [facility] Last Admin: 03/14/18 08:58 Dose: 25 mg Ondansetron HCl (Zofran Odt) 4 mg PO Q8H PRN PRN Reason: Nausea/Vomiting Oxycodone HCl (Oxycodone Immediate Release Tab) 5 mg PO Q6 PRN PRN Reason: Pain, moderate (4-7) Last Admin: 03/15/18 08:28 Dose: 5 mg Senna/Docusate Sodium (Senokot S 50 Mg-8.6 Mg) 2 tab PO HS [facility] Last Admin: 03/14/18 21:54 Dose: Not Given - Labs Labs: 03/15/18 04:20 03/15/18 04:20 PT 11.9 Seconds (9.8-13.1) 03/14/18 04:30 INR 1.1 (0.9-1.2) 03/14/18 04:30 APTT 220.3 Seconds (25.6-37.1) H* D 03/14/18 04:30 - Constitutional Appears: Well - Head Exam Head Exam: ATRAUMATIC, NORMAL INSPECTION, NORMOCEPHALIC - Eye Exam Eye Exam: EOMI, Normal appearance, PERRL Pupil Exam: NORMAL ACCOMODATION, PERRL - ENT Exam ENT Exam: Mucous Membranes Moist, Normal Exam - Neck Exam Neck Exam: Full ROM, Normal Inspection. absent: Lymphadenopathy - Respiratory Exam Respiratory Exam: Clear to Ausculation Bilateral, NORMAL BREATHING PATTERN - Cardiovascular Exam Cardiovascular Exam: REGULAR RHYTHM, +S1, +S2, Murmur - GI/Abdominal Exam GI & Abdominal Exam: Soft, Normal Bowel Sounds. absent: Tenderness - Extremities Exam Extremities Exam: Full ROM, Normal Capillary Refill, Normal Inspection. absent : Joint Swelling, Pedal Edema - Back Exam Back Exam: NORMAL INSPECTION - Neurological Exam Neurological Exam: Alert, Awake, CN II-XII Intact, Normal Gait, Oriented x3 - Psychiatric Exam Psychiatric exam: Normal Affect, Normal Mood - Skin Skin Exam: Dry, Intact, Normal Color, Warm Assessment and Plan (1) NSTEMI (non-ST elevated myocardial infarction) Assessment & Plan: LAD territory infarct on echo TnI trending down to 0.8 will discuss with family regarding CAD care advanced CAD with poor overall prognosis consider home hospice cont dapt bb statins nitrates Status: Acute (2) Dyslipidemia Status: Chronic (3) Hx of myocardial infarction Status: Chronic (4) PVD (peripheral vascular disease) Status: Chronic (5) Systolic CHF, chronic Assessment & Plan: EF 30-35% with WMA in LAD territory bb, acei statins Status: Chronic
[2018-03-15] MEDS ORDERED: HYDROmorphone 0.5 mg/0.5 ml ISec IVP PRN ×2 (10:00→11:53)
--- NOTE | 2018-03-15 11:19 | CARD ---
APPROVED REPORT EKG Measurement Heart [id number] <Conclusion> Normal sinus rhythm Possible Left atrial enlargement Inferior infarct, age undetermined Anterolateral infarct, age undetermined Abnormal ECG
[2018-03-15] MEDS: oxyCODONE 5 mg Immediate Release Tab PO SCH (16:59)
[2018-03-15] MEDS: Docusate-Senna 50 mg-8.6 mg Tab PO SCH (21:31)
[2018-03-15] MEDS: Insulin Detemir 100 Units/ml Inj SC SCH (22:13)
[2018-03-16] MEDS: oxyCODONE 5 mg Immediate Release Tab PO PRN (02:10)
[2018-03-16 05:58] LABS: BLOOD UREA NITROGEN 20 mg/dl (7-17); CALCIUM 9.3 mg/dL (8.4-10.2); GFR AFRICAN-AMERICAN > 60; GFR NON-AFRICAN AMERICAN 50
[2018-03-16 06:02] LABS: MEAN CELL VOLUME 89.3 fl (81.0-99.0); MEAN CORPUSCULAR HGB CONC 34.7 g/dL (33.0-37.0); RBC 3.23 Mil/uL (3.80-5.20); RED CELL DISTRIBUTION WIDTH 15.2 % (11.5-14.5); WHITE BLOOD COUNT 11.9 K/uL (4.8-10.8)
--- NOTE | 2018-03-16 07:02 | CP.PCM.PN ---
Subjective - Date & Time of Evaluation Date of Evaluation: 03/16/18 Time of Evaluation: 08:20 - Subjective Subjective: 67 y/o seen and examined by bedside. Pt c/o of L lower extremity limb pain, 8/ 10 intensity and partially relieved with medications. Pt afebrile, tolerating PO with NO acute events overnight. No chest pain, SOB, arm pain or calf pain at this moment. Objective - Vital Signs/Intake and Output Vital Signs (last 24 hours): Temp Pulse Resp BP Pulse Ox 97.5 F L 77 18 130/73 98 03/16/18 05:17 03/16/18 05:17 03/16/18 05:17 03/16/18 05:17 03/16/18 05:17 - Medications Medications: Current Medications Acetaminophen (Tylenol 325mg Tab) 975 mg PO Q8H [facility] Last Admin: 03/16/18 05:42 Dose: Not Given Aspirin (Ecotrin) 81 mg PO DAILY [facility] Last Admin: 03/15/18 08:29 Dose: 81 mg Atorvastatin Calcium (Lipitor) 40 mg PO HS [facility] Last Admin: 03/15/18 21:31 Dose: 40 mg Bethanechol Chloride (Urecholine) 10 mg PO TID [facility] Last Admin: 03/15/18 16:57 Dose: 10 mg Carvedilol (Coreg) 6.25 mg PO Q12 [facility] Last Admin: 03/15/18 20:13 Dose: 6.25 mg Clopidogrel Bisulfate (Plavix) 75 mg PO DAILY [facility] Last Admin: 03/15/18 08:28 Dose: 75 mg Ferrous Sulfate (Feosol) 325 mg PO BID [facility] Last Admin: 03/15/18 16:56 Dose: 325 mg Insulin Detemir (Levemir) 20 units SC HS [facility] Last Admin: 03/15/18 22:13 Dose: 20 units Insulin Human Lispro (Humalog) 5 units SC TID [facility] Last Admin: 03/15/18 16:56 Dose: Not Given Isosorbide Mononitrate (Imdur Er) 30 mg PO DAILY [facility] Last Admin: 03/15/18 08:29 Dose: 30 mg Losartan Potassium (Cozaar) 25 mg PO DAILY [facility] Last Admin: 03/15/18 12:32 Dose: 25 mg Ondansetron HCl (Zofran Odt) 4 mg PO Q8H PRN PRN Reason: Nausea/Vomiting Oxycodone HCl (Oxycodone Immediate Release Tab) 5 mg PO Q6 PRN PRN Reason: Pain, moderate (4-7) Last Admin: 03/16/18 02:10 Dose: 5 mg Oxycodone HCl (Oxycodone Immediate Release Tab) 5 mg PO BID [facility] Last Admin: 03/15/18 16:59 Dose: 5 mg Senna/Docusate Sodium (Senokot S 50 Mg-8.6 Mg) 2 tab PO HS [facility] Last Admin: 03/15/18 21:31 Dose: 2 tab - Labs Labs: 03/16/18 04:20 03/16/18 04:20 PT 11.9 Seconds (9.8-13.1) 03/14/18 04:30 INR 1.1 (0.9-1.2) 03/14/18 04:30 APTT 220.3 Seconds (25.6-37.1) H* D 03/14/18 04:30 - Constitutional Appears: No Acute Distress - Head Exam Head Exam: ATRAUMATIC - Eye Exam Eye Exam: EOMI, Normal appearance - ENT Exam ENT Exam: Mucous Membranes Moist - Neck Exam Neck Exam: Full ROM, Normal Inspection - Respiratory Exam Respiratory Exam: NORMAL BREATHING PATTERN - Cardiovascular Exam Cardiovascular Exam: +S1, +S2 - GI/Abdominal Exam GI & Abdominal Exam: Soft, Normal Bowel Sounds. absent: Distended, Guarding, Tenderness - Extremities Exam Additional comments: LLE limb: on dressing that is clean dry and intact. Assessment and Plan - Assessment and Plan (Free Text) Assessment: 67 yo F with a extensive PMHx, w/ urinary catheter in place, admitted for Klebsiella UTI , s/p AKA and NSTEMI PLAN: Chronic Heart Failure-systolic dysfunction-s/p NSTEMI -Advanced CAD with poor overall prognosis -Echo Results: mild/moderate impaired LV systolic function, LVEF 30-35%, LV global hypokinesis, MR and mild TR. LAD area infarct. -Dr. Mcdaniel, [employer], on board -Asymptomatic at this time -Mononitrate 30mg daily as per cardio. -Will follow PT/OT recommendations. S/P Above Knee Amputation -Performed on 03/09/18. POD 4. -F/U general surgery recommendations. -Pain management changed to: Oxycodone 5mg PO BID and PRN Oxycodone Q6H. -Will follow PT/OT recommendations. Anemia -Hgb 10.0-today, stable. -c/w Feosol 325mg BID -Monitor CBC UTI - improved -Afebrile. VSS. Asymptomatic -Dalal cath removed 03/10/18 -Urine Cx: Klebsiella ESBL-sensitive to Zosyn. -Completed already 7 day of IV Zosyn therapy. Urinary retention: -c/w home medications: Bethanechol 25mg TID History of CVA -02/09/18: Developed stroke in left-parietal occipital region, with a subacute subdural hemorrhage inferior to the temporal lobe. -02/16/18: MRA of the head narrowing of the right cavernous carotid artery due to calcified atherosclerotic plaque -C/w: Aspirin 81mg daily, Plavix 75mg daily DTI -Ulcer of sacrum Stage [id number]. -Healing Stage I ulcer on R heel. -Continue with Wound Care DM -Blood sugar levels unremarkable. -Insulin Detemir 20 units SC HS -Insulin Lispro 5 units SC TID -HbA1c 7.3 on 01/15/18. CKD -Stage IV, improving -C/w home medications HTN -C/w home medications -On Losartan 25mg PO daily DVT Prophylaxis -Lovenox 30mg SC Daily; Renally dosed. -Approved by Dr Hernandez, General Surgery.
--- NOTE | 2018-03-16 09:05 | CP.PCM.PCO ---
Assessment/Plan - Assessment and Plan (Free Text) Assessment: D/W Dr John Golden to start DVT proph with lovenox
[2018-03-16] MEDS: Enoxaparin 30 mg Syringe SC SCH (10:13)
[2018-03-16] MEDS: Insulin Lispro (humaLOG) 100 Units/ml Inj SC SCH ×2 (10:13→19:01)
[2018-03-16] MEDS: oxyCODONE 5 mg Immediate Release Tab PO SCH ×2 (10:30→16:35)
--- NOTE | 2018-03-16 11:17 | CP.PCM.PN ---
Subjective - Date & Time of Evaluation Date of Evaluation: 03/16/18 Time of Evaluation: 11:15 - Subjective Subjective: Gen Surg Progress Note 67F seen 7 days s/p L AKA. Patient is AAO x 3 and NAD, resting comfortably in bed. Denies any acute overnight events. States that she is not experiencing any pain at this time. Denies any bloody strikethrough to bandage site. Denies any further complaints at this time. Denies any recent N/V/F/C/CP/SOB/D. Objective - Vital Signs/Intake and Output Vital Signs (last 24 hours): Temp Pulse Resp BP Pulse Ox 97.7 F 82 20 129/88 100 03/16/18 08:01 03/16/18 10:12 03/16/18 08:01 03/16/18 10:12 03/16/18 08:01 - Medications Medications: Current Medications Acetaminophen (Tylenol 325mg Tab) 975 mg PO Q8H [facility] Last Admin: 03/16/18 05:42 Dose: Not Given Aspirin (Ecotrin) 81 mg PO DAILY [facility] Last Admin: 03/16/18 10:11 Dose: 81 mg Atorvastatin Calcium (Lipitor) 40 mg PO HS [facility] Last Admin: 03/15/18 21:31 Dose: 40 mg Bethanechol Chloride (Urecholine) 10 mg PO TID [facility] Last Admin: 03/16/18 10:11 Dose: 10 mg Carvedilol (Coreg) 6.25 mg PO Q12 [facility] Last Admin: 03/16/18 10:11 Dose: 6.25 mg Clopidogrel Bisulfate (Plavix) 75 mg PO DAILY [facility] Last Admin: 03/16/18 10:12 Dose: 75 mg Enoxaparin Sodium (Lovenox) 30 mg SC DAILY [facility] PRN Reason: Protocol Last Admin: 03/16/18 10:13 Dose: 30 mg Ferrous Sulfate (Feosol) 325 mg PO BID [facility] Last Admin: 03/16/18 10:12 Dose: 325 mg Insulin Detemir (Levemir) 20 units SC HS [facility] Last Admin: 03/15/18 22:13 Dose: 20 units Insulin Human Lispro (Humalog) 5 units SC TID [facility] Last Admin: 03/16/18 10:13 Dose: Not Given Isosorbide Mononitrate (Imdur Er) 30 mg PO DAILY [facility] Last Admin: 03/16/18 10:12 Dose: 30 mg Losartan Potassium (Cozaar) 25 mg PO DAILY [facility] Last Admin: 03/16/18 10:12 Dose: 25 mg Ondansetron HCl (Zofran Odt) 4 mg PO Q8H PRN PRN Reason: Nausea/Vomiting Oxycodone HCl (Oxycodone Immediate Release Tab) 5 mg PO Q6 PRN PRN Reason: Pain, moderate (4-7) Last Admin: 03/16/18 02:10 Dose: 5 mg Oxycodone HCl (Oxycodone Immediate Release Tab) 5 mg PO BID [facility] Last Admin: 03/16/18 10:30 Dose: 5 mg Senna/Docusate Sodium (Senokot S 50 Mg-8.6 Mg) 2 tab PO HS [facility] Last Admin: 03/15/18 21:31 Dose: 2 tab - Labs Labs: 03/16/18 04:20 03/16/18 04:20 PT 11.9 Seconds (9.8-13.1) 03/14/18 04:30 INR 1.1 (0.9-1.2) 03/14/18 04:30 APTT 220.3 Seconds (25.6-37.1) H* D 03/14/18 04:30 - Constitutional Appears: Well, Non-toxic, No Acute Distress - Head Exam Head Exam: ATRAUMATIC, NORMOCEPHALIC - Extremities Exam Additional comments: Dressings to L AKA stump site noted to be C/D/I with no signs of sanguinous strikethrough noted - Neurological Exam Neurological Exam: Alert, Awake, Oriented x3 - Psychiatric Exam Psychiatric exam: Normal Affect, Normal Mood Assessment and Plan - Assessment and Plan (Free Text) Assessment: 67F seen 7 days s/p L AKA Plan: WBC 11.9 Afebrile Medical management per Medicine team No plan for further intervention at this time Will continue to follow and change dressing QOD
--- NOTE | 2018-03-16 12:27 | CP.PCM.PN ---
Subjective - Date & Time of Evaluation Date of Evaluation: 03/16/18 Time of Evaluation: 12:25 - Subjective Subjective: no CP or SOB stump discomfort Objective - Vital Signs/Intake and Output Vital Signs (last 24 hours): Temp Pulse Resp BP Pulse Ox 98.3 F 89 20 115/74 98 03/16/18 11:52 03/16/18 11:52 03/16/18 11:52 03/16/18 11:52 03/16/18 11:52 - Medications Medications: Current Medications Acetaminophen (Tylenol 325mg Tab) 975 mg PO Q8H [facility] Last Admin: 03/16/18 05:42 Dose: Not Given Aspirin (Ecotrin) 81 mg PO DAILY [facility] Last Admin: 03/16/18 10:11 Dose: 81 mg Atorvastatin Calcium (Lipitor) 40 mg PO HS [facility] Last Admin: 03/15/18 21:31 Dose: 40 mg Bethanechol Chloride (Urecholine) 10 mg PO TID [facility] Last Admin: 03/16/18 10:11 Dose: 10 mg Carvedilol (Coreg) 6.25 mg PO Q12 [facility] Last Admin: 03/16/18 10:11 Dose: 6.25 mg Clopidogrel Bisulfate (Plavix) 75 mg PO DAILY [facility] Last Admin: 03/16/18 10:12 Dose: 75 mg Enoxaparin Sodium (Lovenox) 30 mg SC DAILY [facility] PRN Reason: Protocol Last Admin: 03/16/18 10:13 Dose: 30 mg Ferrous Sulfate (Feosol) 325 mg PO BID [facility] Last Admin: 03/16/18 10:12 Dose: 325 mg Insulin Detemir (Levemir) 20 units SC [facility] Last Admin: 03/15/18 22:13 Dose: 20 units Insulin Human Lispro (Humalog) 5 units SC TID [facility] Last Admin: 03/16/18 10:13 Dose: Not Given Isosorbide Mononitrate (Imdur Er) 30 mg PO DAILY [facility] Last Admin: 03/16/18 10:12 Dose: 30 mg Losartan Potassium (Cozaar) 25 mg PO DAILY [facility] Last Admin: 03/16/18 10:12 Dose: 25 mg Ondansetron HCl (Zofran Odt) 4 mg PO Q8H PRN PRN Reason: Nausea/Vomiting Oxycodone HCl (Oxycodone Immediate Release Tab) 5 mg PO Q6 PRN PRN Reason: Pain, moderate (4-7) Last Admin: 03/16/18 02:10 Dose: 5 mg Oxycodone HCl (Oxycodone Immediate Release Tab) 5 mg PO BID [facility] Last Admin: 03/16/18 10:30 Dose: 5 mg Senna/Docusate Sodium (Senokot S 50 Mg-8.6 Mg) 2 tab PO HS [facility] Last Admin: 03/15/18 21:31 Dose: 2 tab - Labs Labs: 03/16/18 04:20 03/16/18 04:20 PT 11.9 Seconds (9.8-13.1) 03/14/18 04:30 INR 1.1 (0.9-1.2) 03/14/18 04:30 APTT 220.3 Seconds (25.6-37.1) H* D 03/14/18 04:30 - Constitutional Appears: Well - Head Exam Head Exam: ATRAUMATIC, NORMAL INSPECTION, NORMOCEPHALIC - Eye Exam Eye Exam: EOMI, Normal appearance, PERRL Pupil Exam: NORMAL ACCOMODATION, PERRL - ENT Exam ENT Exam: Mucous Membranes Moist, Normal Exam - Neck Exam Neck Exam: Full ROM, Normal Inspection. absent: Lymphadenopathy - Respiratory Exam Respiratory Exam: Clear to Ausculation Bilateral, NORMAL BREATHING PATTERN - Cardiovascular Exam Cardiovascular Exam: REGULAR RHYTHM, +S1, +S2. absent: Murmur - GI/Abdominal Exam GI & Abdominal Exam: Soft, Normal Bowel Sounds. absent: Tenderness - Extremities Exam Extremities Exam: Full ROM, Normal Capillary Refill, Normal Inspection. absent : Joint Swelling, Pedal Edema - Back Exam Back Exam: NORMAL INSPECTION - Neurological Exam Neurological Exam: Alert, Awake, CN II-XII Intact, Normal Gait, Oriented x3 - Psychiatric Exam Psychiatric exam: Normal Affect, Normal Mood - Skin Skin Exam: Dry, Intact, Normal Color, Warm Assessment and Plan (1) NSTEMI (non-ST elevated myocardial infarction) Assessment & Plan: Med rx asa, plavix bb statins advnced CAD per family on last cath done in [facility] not amenable to revascularization consider home hospice for CAD Status: Acute (2) Dyslipidemia Assessment & Plan: statins Status: Chronic (3) Hx of myocardial infarction Status: Chronic (4) PVD (peripheral vascular disease) Status: Chronic (5) Systolic CHF, chronic Status: Chronic
[2018-03-16 12:50] LABS: TROPONIN I 0.177 ng/mL (0.00-0.120)
[2018-03-16] MEDS: Insulin NPH Human 100 Units/ml Inj SC SCH (16:48)
[2018-03-16] MEDS: Docusate-Senna 50 mg-8.6 mg Tab PO SCH (22:16)
[2018-03-16] MEDS: Insulin Regular 100 units/ml SC SCH (22:33)
[2018-03-17] MEDS: oxyCODONE 5 mg Immediate Release Tab PO PRN ×2 (02:35→15:06)
[2018-03-17] MEDS: Insulin Regular 100 units/ml SC SCH ×3 (07:04→23:59)
--- NOTE | 2018-03-17 07:55 | CP.PCM.PN ---
Subjective - Date & Time of Evaluation Date of Evaluation: 03/17/18 Time of Evaluation: 07:53 - Subjective Subjective: Surgery Pt seen and examined. No acute events. Denies fever. Dressing clean. Pain controlled. Objective - Vital Signs/Intake and Output Vital Signs (last 24 hours): Temp Pulse Resp BP Pulse Ox 98.0 F 90 18 137/73 98 03/17/18 05:14 03/17/18 05:14 03/17/18 05:14 03/17/18 05:14 03/17/18 05:14 - Medications Medications: Current Medications Acetaminophen (Tylenol 325mg Tab) 975 mg PO Q8H [facility] Last Admin: 03/17/18 06:27 Dose: Not Given Aspirin (Ecotrin) 81 mg PO DAILY [facility] Last Admin: 03/16/18 10:11 Dose: 81 mg Atorvastatin Calcium (Lipitor) 40 mg PO HS [facility] Last Admin: 03/16/18 22:16 Dose: 40 mg Bethanechol Chloride (Urecholine) 10 mg PO TID [facility] Last Admin: 03/16/18 16:50 Dose: 10 mg Carvedilol (Coreg) 6.25 mg PO Q12 [facility] Last Admin: 03/16/18 22:13 Dose: Not Given Clopidogrel Bisulfate (Plavix) 75 mg PO DAILY [facility] Last Admin: 03/16/18 10:12 Dose: 75 mg Enoxaparin Sodium (Lovenox) 30 mg SC DAILY [facility] PRN Reason: Protocol Last Admin: 03/16/18 10:13 Dose: 30 mg Ferrous Sulfate (Feosol) 325 mg PO BID [facility] Last Admin: 03/16/18 16:50 Dose: 325 mg Insulin Human NPH (Humulin N) 12 units SC ACB [facility] Insulin Human NPH (Humulin N) 8 units SC ACD [facility] Last Admin: 03/16/18 16:48 Dose: 8 unit Insulin Human Regular (Humulin R) 0 units SC ACCU-CHECK [facility] PRN Reason: Protocol Last Admin: 03/17/18 07:04 Dose: 1 unit Isosorbide Mononitrate (Imdur Er) 30 mg PO DAILY [facility] Last Admin: 03/16/18 10:12 Dose: 30 mg Losartan Potassium (Cozaar) 25 mg PO DAILY [facility] Last Admin: 03/16/18 10:12 Dose: 25 mg Ondansetron HCl (Zofran Odt) 4 mg PO Q8H PRN PRN Reason: Nausea/Vomiting Oxycodone HCl (Oxycodone Immediate Release Tab) 5 mg PO Q6 PRN PRN Reason: Pain, moderate (4-7) Last Admin: 03/17/18 02:35 Dose: 5 mg Oxycodone HCl (Oxycodone Immediate Release Tab) 5 mg PO BID [facility] Last Admin: 03/16/18 16:35 Dose: 5 mg Senna/Docusate Sodium (Senokot S 50 Mg-8.6 Mg) 2 tab PO HS [facility] Last Admin: 03/16/18 22:16 Dose: 2 tab - Labs Labs: 03/16/18 04:20 03/16/18 04:20 PT 11.9 Seconds (9.8-13.1) 03/14/18 04:30 INR 1.1 (0.9-1.2) 03/14/18 04:30 APTT 220.3 Seconds (25.6-37.1) H* D 03/14/18 04:30 - Constitutional Appears: No Acute Distress - Head Exam Head Exam: ATRAUMATIC, NORMAL INSPECTION, NORMOCEPHALIC - Eye Exam Eye Exam: EOMI, Normal appearance, PERRL Pupil Exam: NORMAL ACCOMODATION, PERRL - ENT Exam ENT Exam: Mucous Membranes Moist, Normal Exam - Neck Exam Neck Exam: Full ROM, Normal Inspection. absent: Lymphadenopathy - Respiratory Exam Respiratory Exam: Clear to Ausculation Bilateral, NORMAL BREATHING PATTERN - Cardiovascular Exam Cardiovascular Exam: REGULAR RHYTHM, +S1, +S2. absent: Murmur - GI/Abdominal Exam GI & Abdominal Exam: Soft, Normal Bowel Sounds. absent: Tenderness - Extremities Exam Extremities Exam: Full ROM, Normal Capillary Refill, Normal Inspection. absent : Joint Swelling, Pedal Edema Additional comments: L stump. Dressing C/D/I. TTP - Back Exam Back Exam: NORMAL INSPECTION - Neurological Exam Neurological Exam: Alert, Awake, CN II-XII Intact, Normal Gait, Oriented x3 - Psychiatric Exam Psychiatric exam: Normal Affect, Normal Mood - Skin Skin Exam: Dry, Intact, Normal Color, Warm Assessment and Plan - Assessment and Plan (Free Text) Assessment: 67F seen 8 days s/p L AKA Plan: Afebrile Medical management per Medicine team No plan for further intervention at this time Will VERNA Christian
[2018-03-17] MEDS: oxyCODONE 5 mg Immediate Release Tab PO SCH ×2 (08:51→16:53)
[2018-03-17] MEDS: Enoxaparin 30 mg Syringe SC SCH (08:54)
[2018-03-17] MEDS: Insulin NPH Human 100 Units/ml Inj SC SCH ×2 (08:55→16:47)
--- NOTE | 2018-03-17 09:45 | CP.PCM.PN ---
Subjective - Date & Time of Evaluation Date of Evaluation: 03/17/18 Time of Evaluation: 07:42 - Subjective Subjective: 67 y/o F seen and examined by bedside. Pt reports feeling OK, good appetite and urinating well. Pt afebrile, tolerating PO with NO acute events overnight. Objective - Vital Signs/Intake and Output Vital Signs (last 24 hours): Temp Pulse Resp BP Pulse Ox 98.4 F 92 H 20 123/57 L 99 03/17/18 08:08 03/17/18 08:08 03/17/18 08:08 03/17/18 08:08 03/17/18 08:08 - Medications Medications: Current Medications Acetaminophen (Tylenol 325mg Tab) 975 mg PO Q8H [facility] Last Admin: 03/17/18 06:27 Dose: Not Given Aspirin (Ecotrin) 81 mg PO DAILY [facility] Last Admin: 03/17/18 08:54 Dose: 81 mg Atorvastatin Calcium (Lipitor) 40 mg PO HS [facility] Last Admin: 03/16/18 22:16 Dose: 40 mg Bethanechol Chloride (Urecholine) 10 mg PO TID [facility] Last Admin: 03/17/18 08:54 Dose: 10 mg Carvedilol (Coreg) 6.25 mg PO Q12 [facility] Last Admin: 03/16/18 22:13 Dose: Not Given Clopidogrel Bisulfate (Plavix) 75 mg PO DAILY [facility] Last Admin: 03/17/18 08:54 Dose: 75 mg Enoxaparin Sodium (Lovenox) 30 mg SC DAILY [facility] PRN Reason: Protocol Last Admin: 03/17/18 08:54 Dose: 30 mg Ferrous Sulfate (Feosol) 325 mg PO BID [facility] Last Admin: 03/17/18 08:53 Dose: 325 mg Insulin Human NPH (Humulin N) 12 units SC ACB [facility] Last Admin: 03/17/18 08:55 Dose: 12 unit Insulin Human NPH (Humulin N) 8 units SC ACD [facility] Last Admin: 03/16/18 16:48 Dose: 8 unit Insulin Human Regular (Humulin R) 0 units SC ACCU-CHECK [facility] PRN Reason: Protocol Last Admin: 03/17/18 07:04 Dose: 1 unit Isosorbide Mononitrate (Imdur Er) 30 mg PO DAILY [facility] Last Admin: 03/17/18 08:53 Dose: 30 mg Losartan Potassium (Cozaar) 25 mg PO DAILY [facility] Last Admin: 03/16/18 10:12 Dose: 25 mg Ondansetron HCl (Zofran Odt) 4 mg PO Q8H PRN PRN Reason: Nausea/Vomiting Oxycodone HCl (Oxycodone Immediate Release Tab) 5 mg PO Q6 PRN PRN Reason: Pain, moderate (4-7) Last Admin: 03/17/18 02:35 Dose: 5 mg Oxycodone HCl (Oxycodone Immediate Release Tab) 5 mg PO BID [facility] Last Admin: 03/17/18 08:51 Dose: 5 mg Senna/Docusate Sodium (Senokot S 50 Mg-8.6 Mg) 2 tab PO HS [facility] Last Admin: 03/16/18 22:16 Dose: 2 tab - Labs Labs: 03/16/18 04:20 03/16/18 04:20 PT 11.9 Seconds (9.8-13.1) 03/14/18 04:30 INR 1.1 (0.9-1.2) 03/14/18 04:30 APTT 220.3 Seconds (25.6-37.1) H* D 03/14/18 04:30 - Constitutional Appears: No Acute Distress - Head Exam Head Exam: ATRAUMATIC, NORMAL INSPECTION - Eye Exam Eye Exam: EOMI - ENT Exam ENT Exam: Mucous Membranes Moist - Neck Exam Neck Exam: Full ROM. absent: Meningismus - Respiratory Exam Respiratory Exam: NORMAL BREATHING PATTERN. absent: Rales, Rhonchi, Wheezes - Cardiovascular Exam Cardiovascular Exam: +S1, +S2 - GI/Abdominal Exam GI & Abdominal Exam: Soft, Normal Bowel Sounds. absent: Tenderness - Rectal Exam Rectal Exam: NORMAL INSPECTION - Extremities Exam Extremities Exam: Full ROM, Normal Inspection. absent: Pedal Edema, Tenderness Additional comments: LLE limb: dressing clean, dry and intact. - Neurological Exam Neurological Exam: Alert, Awake, Oriented x3 Assessment and Plan - Assessment and Plan (Free Text) Assessment: 67 yo F with a extensive PMHx, w/ urinary catheter in place, admitted for Klebsiella UTI , had a AKA and developed and NSTEMI during this hospitalization. PLAN: Chronic Heart Failure-systolic dysfunction -S/P NSTEMI 03/11/18 -Advanced CAD with poor overall prognosis -Dr. Mcdaniel, Clinical Allergist, on board DM 2 -Blood sugar levels unremarkable. -Modified to NPH insulin 12units ACB, 8units ACD. -HbA1c 7.3 on 01/15/18. S/P Above Knee Amputation -Performed on 03/09/18. POD 4. -F/U general surgery recommendations. -Pain management changed to: Oxycodone 5mg PO BID and PRN Oxycodone Q6H. -Will follow PT/OT recommendations. Anemia -Stable, Hgb 10 yesterday -c/w Feosol 325mg BID -Monitor CBC Urinary retention: -Dalal cath removed 03/10/18 -c/w home medications: Bethanechol 25mg TID History of CVA -02/09/18: Developed stroke in left-parietal occipital region, with a subacute subdural hemorrhage inferior to the temporal lobe. -02/16/18: MRA of the head narrowing of the right cavernous carotid artery due to calcified atherosclerotic plaque -C/w: Aspirin 81mg daily, Plavix 75mg daily DTI -Ulcer of sacrum Stage [id number]. -Healing Stage I ulcer on R heel. -Continue with Wound Care CKD -Stage IV, improving -C/w home medications HTN -C/w home medications -On Losartan 25mg PO daily DVT Prophylaxis -Lovenox 30mg SC Daily; Renally dosed.
--- NOTE | 2018-03-17 17:50 | CP.PCM.PN ---
Subjective - Date & Time of Evaluation Date of Evaluation: 03/17/18 Time of Evaluation: 17:48 - Subjective Subjective: no complaints of cp or sob Objective - Vital Signs/Intake and Output Vital Signs (last 24 hours): Temp Pulse Resp BP Pulse Ox 98 F 95 H 18 141/77 100 03/17/18 16:04 03/17/18 16:04 03/17/18 16:04 03/17/18 16:04 03/17/18 16:04 - Medications Medications: Current Medications Acetaminophen (Tylenol 325mg Tab) 975 mg PO Q8H [facility] Last Admin: 03/17/18 16:54 Dose: Not Given Aspirin (Ecotrin) 81 mg PO DAILY [facility] Last Admin: 03/17/18 08:54 Dose: 81 mg Atorvastatin Calcium (Lipitor) 40 mg PO HS [facility] Last Admin: 03/16/18 22:16 Dose: 40 mg Bethanechol Chloride (Urecholine) 10 mg PO TID [facility] Last Admin: 03/17/18 16:55 Dose: 10 mg Carvedilol (Coreg) 6.25 mg PO Q12 [facility] Last Admin: 03/17/18 08:55 Dose: 6.25 mg Clopidogrel Bisulfate (Plavix) 75 mg PO DAILY [facility] Last Admin: 03/17/18 08:54 Dose: 75 mg Enoxaparin Sodium (Lovenox) 30 mg SC DAILY [facility] PRN Reason: Protocol Last Admin: 03/17/18 08:54 Dose: 30 mg Ferrous Sulfate (Feosol) 325 mg PO BID [facility] Last Admin: 03/17/18 08:53 Dose: 325 mg Gabapentin (Neurontin) 100 mg PO TID [facility] Last Admin: 03/17/18 16:55 Dose: 100 mg Insulin Human NPH (Humulin N) 12 units SC ACB [facility] Last Admin: 03/17/18 08:55 Dose: 12 unit Insulin Human NPH (Humulin N) 8 units SC ACD [facility] Last Admin: 03/17/18 16:47 Dose: 8 unit Insulin Human Regular (Humulin R) 0 units SC ACCU-CHECK [facility] PRN Reason: Protocol Last Admin: 03/17/18 13:20 Dose: 2 unit Isosorbide Mononitrate (Imdur Er) 30 mg PO DAILY [facility] Last Admin: 03/17/18 08:53 Dose: 30 mg Losartan Potassium (Cozaar) 25 mg PO DAILY [facility] Last Admin: 03/17/18 08:55 Dose: 25 mg Ondansetron HCl (Zofran Odt) 4 mg PO Q8H PRN PRN Reason: Nausea/Vomiting Oxycodone HCl (Oxycodone Immediate Release Tab) 5 mg PO Q6 PRN PRN Reason: Pain, moderate (4-7) Last Admin: 03/17/18 15:06 Dose: 5 mg Oxycodone HCl (Oxycodone Immediate Release Tab) 5 mg PO BID [facility] Last Admin: 03/17/18 16:53 Dose: 5 mg Senna/Docusate Sodium (Senokot S 50 Mg-8.6 Mg) 2 tab PO HS [facility] Last Admin: 03/16/18 22:16 Dose: 2 tab - Labs Labs: 03/16/18 04:20 03/16/18 04:20 PT 11.9 Seconds (9.8-13.1) 03/14/18 04:30 INR 1.1 (0.9-1.2) 03/14/18 04:30 APTT 220.3 Seconds (25.6-37.1) H* D 03/14/18 04:30 - Constitutional Appears: Well - Head Exam Head Exam: ATRAUMATIC, NORMAL INSPECTION, NORMOCEPHALIC - Eye Exam Eye Exam: EOMI, Normal appearance, PERRL Pupil Exam: NORMAL ACCOMODATION, PERRL - ENT Exam ENT Exam: Mucous Membranes Moist, Normal Exam - Neck Exam Neck Exam: Full ROM, Normal Inspection. absent: Lymphadenopathy - Respiratory Exam Respiratory Exam: Clear to Ausculation Bilateral, NORMAL BREATHING PATTERN - Cardiovascular Exam Cardiovascular Exam: REGULAR RHYTHM, +S1, +S2. absent: Murmur - GI/Abdominal Exam GI & Abdominal Exam: Soft, Normal Bowel Sounds. absent: Tenderness - Extremities Exam Extremities Exam: Full ROM, Normal Capillary Refill, Normal Inspection. absent : Joint Swelling, Pedal Edema - Back Exam Back Exam: NORMAL INSPECTION - Neurological Exam Neurological Exam: Alert, Awake, CN II-XII Intact, Normal Gait, Oriented x3 - Psychiatric Exam Psychiatric exam: Normal Affect, Normal Mood - Skin Skin Exam: Dry, Intact, Normal Color, Warm Assessment and Plan (1) NSTEMI (non-ST elevated myocardial infarction) Assessment & Plan: med rx home hospice Status: Acute (2) Dyslipidemia Status: Chronic (3) Hx of myocardial infarction Status: Chronic (4) PVD (peripheral vascular disease) Status: Chronic (5) Systolic CHF, chronic Status: Chronic
[2018-03-17] MEDS: Docusate-Senna 50 mg-8.6 mg Tab PO SCH (21:41)
[2018-03-18] MEDS: oxyCODONE 5 mg Immediate Release Tab PO PRN ×2 (02:23→13:53)
--- NOTE | 2018-03-18 07:49 | CP.PCM.PN ---
Subjective - Date & Time of Evaluation Date of Evaluation: 03/18/18 Time of Evaluation: 07:40 - Subjective Subjective: Surgery PT seen and examined. No acute events. Denies bleeding, Cp, SOB. Pain controlled. Objective - Vital Signs/Intake and Output Vital Signs (last 24 hours): Temp Pulse Resp BP Pulse Ox 98.1 F 88 18 151/83 H 97 03/18/18 04:59 03/18/18 04:59 03/18/18 04:59 03/18/18 04:59 03/18/18 04:59 - Medications Medications: Current Medications Acetaminophen (Tylenol 325mg Tab) 975 mg PO Q8H [facility] Last Admin: 03/18/18 05:08 Dose: Not Given Aspirin (Ecotrin) 81 mg PO DAILY [facility] Last Admin: 03/17/18 08:54 Dose: 81 mg Atorvastatin Calcium (Lipitor) 40 mg PO HS [facility] Last Admin: 03/17/18 21:40 Dose: 40 mg Bethanechol Chloride (Urecholine) 10 mg PO TID [facility] Last Admin: 03/17/18 16:55 Dose: 10 mg Carvedilol (Coreg) 6.25 mg PO Q12 [facility] Last Admin: 03/17/18 21:38 Dose: 6.25 mg Clopidogrel Bisulfate (Plavix) 75 mg PO DAILY [facility] Last Admin: 03/17/18 08:54 Dose: 75 mg Enoxaparin Sodium (Lovenox) 30 mg SC DAILY [facility] PRN Reason: Protocol Last Admin: 03/17/18 08:54 Dose: 30 mg Ferrous Sulfate (Feosol) 325 mg PO BID [facility] Last Admin: 03/17/18 21:39 Dose: 325 mg Gabapentin (Neurontin) 100 mg PO TID [facility] Last Admin: 03/17/18 16:55 Dose: 100 mg Insulin Human NPH (Humulin N) 12 units SC ACB [facility] Last Admin: 03/17/18 08:55 Dose: 12 unit Insulin Human NPH (Humulin N) 8 units SC ACD [facility] Last Admin: 03/17/18 16:47 Dose: 8 unit Insulin Human Regular (Humulin R) 0 units SC ACCU-CHECK [facility] PRN Reason: Protocol Last Admin: 03/17/18 23:59 Dose: Not Given Isosorbide Mononitrate (Imdur Er) 30 mg PO DAILY [facility] Last Admin: 03/17/18 08:53 Dose: 30 mg Losartan Potassium (Cozaar) 25 mg PO DAILY [facility] Last Admin: 03/17/18 08:55 Dose: 25 mg Ondansetron HCl (Zofran Odt) 4 mg PO Q8H PRN PRN Reason: Nausea/Vomiting Oxycodone HCl (Oxycodone Immediate Release Tab) 5 mg PO Q6 PRN PRN Reason: Pain, moderate (4-7) Last Admin: 03/18/18 02:23 Dose: 5 mg Oxycodone HCl (Oxycodone Immediate Release Tab) 5 mg PO BID [facility] Last Admin: 03/17/18 16:53 Dose: 5 mg Senna/Docusate Sodium (Senokot S 50 Mg-8.6 Mg) 2 tab PO HS [facility] Last Admin: 03/17/18 21:41 Dose: 2 tab - Labs Labs: 03/16/18 04:20 03/16/18 04:20 PT 11.9 Seconds (9.8-13.1) 03/14/18 04:30 INR 1.1 (0.9-1.2) 03/14/18 04:30 APTT 220.3 Seconds (25.6-37.1) H* D 03/14/18 04:30 - Constitutional Appears: No Acute Distress - Head Exam Head Exam: ATRAUMATIC, NORMAL INSPECTION, NORMOCEPHALIC - Eye Exam Eye Exam: EOMI, Normal appearance, PERRL Pupil Exam: NORMAL ACCOMODATION, PERRL - ENT Exam ENT Exam: Mucous Membranes Moist, Normal Exam - Neck Exam Neck Exam: Full ROM, Normal Inspection. absent: Lymphadenopathy - Respiratory Exam Respiratory Exam: Clear to Ausculation Bilateral, NORMAL BREATHING PATTERN - Cardiovascular Exam Cardiovascular Exam: REGULAR RHYTHM, +S1, +S2. absent: Murmur - GI/Abdominal Exam GI & Abdominal Exam: Soft, Normal Bowel Sounds. absent: Distended, Tenderness - Extremities Exam Extremities Exam: Tenderness. absent: Full ROM, Normal Inspection Additional comments: L AKA stump. No bleeding. [place] and sutures in place. No signs of infection - Neurological Exam Neurological Exam: Alert, Awake, CN II-XII Intact, Oriented x3. absent: Normal Gait - Psychiatric Exam Psychiatric exam: Normal Affect, Normal Mood - Skin Skin Exam: Dry, Intact, Normal Color, Warm. absent: Erythema Assessment and Plan - Assessment and Plan (Free Text) Assessment: 67F seen 9 days s/p L AKA Plan: Afebrile Medical management per Medicine team No plan for further intervention at this time OK to take marci on POD 14 F/u at 's office in 1-2 weeks after DC Will DW Dr. Christian
[2018-03-18] MEDS: Insulin NPH Human 100 Units/ml Inj SC SCH ×2 (09:14→16:38)
[2018-03-18] MEDS: Insulin Regular 100 units/ml SC SCH ×3 (09:14→16:39)
[2018-03-18] MEDS: Enoxaparin 30 mg Syringe SC SCH (09:15)
[2018-03-18] MEDS: oxyCODONE 5 mg Immediate Release Tab PO SCH ×2 (09:19→17:55)
--- NOTE | 2018-03-18 11:44 | CP.PCM.DIS ---
Provider - Provider Date of Admission: 03/06/18 19:23 Attending physician: Justina Deutsch MD Primary care physician: [facility] Consults: Cardiology: Roberto Sharma General Surgery: Dario Cortez ID : Dorothy Matos Time Spent in preparation of Discharge (in minutes): 25 Diagnosis - Discharge Diagnosis (1) S/P AKA (above knee amputation) Status: Acute Comment: -[place] and Sutures in place. To rrmove them on POD 14 (03/24/18). -F /U with general surgeon within 1 week. (2) NSTEMI (non-ST elevated myocardial infarction) Status: Acute Comment: -No catherization. Isosorbie Mononitrate added. (3) Urinary tract infection Status: Acute Comment: Resolved. Completed 10 days of IV Zosyn. (4) Uncontrolled diabetes mellitus Status: Acute Comment: -Insulin NPH, 12units AM before breakffast and 8units PO before dinner. Hospital Course - Lab Results Lab Results: Micro Results 03/04/18 12:48 Blood-Venous Blood Culture - Final NO GROWTH AFTER 5 DAYS 03/04/18 12:48 Blood-Venous Gram Stain - Final TEST NOT PERFORMED 03/04/18 12:53 Urine,Catheterized Urine Culture - Final Klebsiella Pneumoniae Ssp Pneu 03/04/18 18:00 Incision Site Gram Stain - Final 03/04/18 18:00 Incision Site Wound Culture - Final Acinetobacter Baumannii Most Recent Lab Values WBC 11.9 K/uL (4.8-10.8) H 03/16/18 04:20 RBC 3.23 Mil/uL (3.80-5.20) L 03/16/18 04:20 Hgb 10.0 g/dL (12.0-16.0) L 03/16/18 04:20 Hct 28.8 % (34.0-47.0) L 03/16/18 04:20 MCV 89.3 fl (81.0-99.0) 03/16/18 04:20 MCH 31.0 pg (27.0-31.0) 03/16/18 04:20 MCHC 34.7 g/dL (33.0-37.0) 03/16/18 04:20 RDW 15.2 % (11.5-14.5) H 03/16/18 04:20 Plt Count 187 K/uL (130-400) 03/16/18 04:20 MPV 9.0 fl (7.2-11.7) 03/07/18 06:24 Neut % (Auto) 64.6 % (50.0-75.0) 03/07/18 06:24 Lymph % (Auto) 21.7 % (20.0-40.0) 03/07/18 06:24 Harmon % (Auto) 8.3 % (0.0-10.0) 03/07/18 06:24 Eos % (Auto) 4.4 % (0.0-4.0) H 03/07/18 06:24 Baso % (Auto) 1.0 % (0.0-2.0) 03/07/18 06:24 Neut # (Auto) 6.5 K/uL (1.8-7.0) 03/07/18 06:24 Lymph # (Auto) 2.2 K/uL (1.0-4.3) 03/07/18 06:24 Harmon # (Auto) 0.8 K/uL (0.0-0.8) 03/07/18 06:24 Eos # (Auto) 0.4 K/uL (0.0-0.7) 03/07/18 06:24 Baso # (Auto) 0.1 K/uL (0.0-0.2) 03/07/18 06:24 PT 11.9 Seconds (9.8-13.1) 03/14/18 04:30 INR 1.1 (0.9-1.2) 03/14/18 04:30 APTT 220.3 Seconds (25.6-37.1) H* D 03/14/18 04:30 pCO2 28 mm/Hg (35-45) L 03/11/18 19:11 pO2 135 mm/Hg (80-100) H 03/11/18 19:11 HCO3 22.6 mmol/L (21-28) 03/11/18 19:11 ABG pH 7.46 (7.35-7.45) H 03/11/18 19:11 ABG Total CO2 20.8 mmol/L (22-28) L 03/11/18 19:11 ABG O2 Saturation 99.2 % (95-98) H 03/11/18 19:11 ABG Base Excess -2.9 mmol/L (-2.0-3.0) L 03/11/18 19:11 Jonah Test Yes 03/11/18 19:11 ABG Potassium 4.2 mmol/L (3.6-5.2) 03/11/18 19:11 VBG pH 7.31 (7.32-7.43) L 03/04/18 15:57 VBG pCO2 46 mmHg (40-60) 03/04/18 15:57 VBG HCO3 20.6 mmol/L 03/04/18 15:57 VBG Total CO2 24.6 mmol/L (22-28) 03/04/18 15:57 VBG O2 Sat (Calc) 43.6 % (40-65) 03/04/18 15:57 VBG Base Excess -3.3 mmol/L (0.0-2.0) L 03/04/18 15:57 VBG Potassium 4.9 mmol/L (3.6-5.2) 03/04/18 15:57 A-a O2 Difference 87.0 mm/Hg 03/11/18 19:11 Sodium 134.0 mmol/L (132-148) 03/11/18 19:11 Chloride 106.0 mmol/L (98-107) 03/11/18 19:11 Glucose 382 mg/dL (65-105) H 03/11/18 19:11 Lactate 1.3 mmol/L (0.7-2.1) 03/11/18 19:11 Vent Mode Nc 03/11/18 19:11 FiO2 36.0 % 03/11/18 19:11 Sodium 139 mmol/l (132-148) 03/16/18 04:20 Potassium 3.8 MMOL/L (3.6-5.0) 03/16/18 04:20 Chloride 105 mmol/L (98-107) 03/16/18 04:20 Carbon Dioxide 21 mmol/L (22-30) L 03/16/18 04:20 Anion Gap 17 (10-20) 03/16/18 04:20 BUN 20 mg/dl (7-17) H 03/16/18 04:20 Creatinine 1.1 mg/dl (0.7-1.2) 03/16/18 04:20 Est GFR ( Amer) > 60 03/16/18 04:20 Est GFR (Non-Af Amer) 50 03/16/18 04:20 POC Glucose (mg/dL) 293 mg/dL (65-110) H 03/18/18 10:40 Random Glucose 50 mg/dL (65-105) L 03/16/18 04:20 Calcium 9.3 mg/dL (8.4-10.2) 03/16/18 04:20 Total Bilirubin 0.5 mg/dl (0.2-1.3) 03/12/18 04:40 AST 30 U/L (14-36) 03/12/18 04:40 ALT 42 U/L (9-52) 03/12/18 04:40 Alkaline Phosphatase 99 U/L (38-126) 03/12/18 04:40 Total Creatine Kinase 175 U/L (30-135) H 03/11/18 15:31 Troponin I 0.1770 ng/mL (0.00-0.120) H* 03/16/18 12:11 NT-Pro-B Natriuret Pep 7660 pg/ml (0-900) H 03/16/18 12:11 Total Protein 6.8 G/DL (6.3-8.2) 03/12/18 04:40 Albumin 3.1 g/dL (3.5-5.0) L 03/12/18 04:40 Globulin 3.7 gm/dL (2.2-3.9) 03/12/18 04:40 Albumin/Globulin Ratio 0.8 (1.0-2.1) L 03/12/18 04:40 Procalcitonin < 0.05 NG/ML (0.19-0.49) L 03/04/18 17:14 Arterial Blood Potassium 4.2 mmol/L (3.6-5.2) 03/11/18 19:11 Venous Blood Potassium 4.9 mmol/L (3.6-5.2) 03/04/18 15:57 Urine Color Yellow (YELLOW) 03/04/18 12:53 Urine Clarity Turbid (Clear) 03/04/18 12:53 Urine pH 6.0 (5.0-8.0) 03/04/18 12:53 Ur Specific [place] 1.009 (1.003-1.030) 03/04/18 12:53 Urine Protein 100 mg/dL (NEGATIVE) 03/04/18 12:53 Urine Glucose (UA) Neg mg/dL (Normal) 03/04/18 12:53 Urine Ketones Negative mg/dL (NEGATIVE) 03/04/18 12:53 Urine Blood Small (NEGATIVE) 03/04/18 12:53 Urine Nitrate Negative (NEGATIVE) 03/04/18 12:53 Urine Bilirubin Negative (NEGATIVE) 03/04/18 12:53 Urine Urobilinogen 0.2-1.0 mg/dL (0.2-1.0) 03/04/18 12:53 Ur Leukocyte Esterase Large Clifford/uL (Negative) 03/04/18 12:53 Urine RBC (Auto) 23 /hpf (0-3) H 03/04/18 12:53 Urine WBC Clumps (Auto) Mod /hpf (NONE) H 03/04/18 12:53 Urine Microscopic WBC 537 /hpf (0-5) H 03/04/18 12:53 Urine Bacteria Mod (<OCC) H 03/04/18 12:53 Urine Yeast (Budding) Few /hpf (NEGATIVE) H 03/04/18 12:53 Salicylates < 1.0 mg/dl 03/04/18 12:48 Blood Type A POSITIVE 03/14/18 12:00 Antibody Screen Negative 03/14/18 12:00 Crossmatch See Detail 03/14/18 12:00 BBK History Checked Patient has bt 03/14/18 12:00 - Hospital Course Hospital Course: 67 y/o female with PMHx of DM2, HTN, HLD, [place], CVA and urinary retention admitted and treated for catheter-related UTI with 10 days of IV Zosyn. Hospitalization complicated by necessary AKA on 03/09/18 and NSTEMI on . Pt was properly treated, no catheterization, echocardiogram showed mild/ moderate impaired LV systolic function, LVEF 30-35%, LV global hypokinesis, LAD area infarct. Pt afebrile, tolerating PO and hemodynamically stable is discharged. Written scripts for all her medications given. Pt will f/u with general surgery within 1 week. - Date & Time of H&P Date of H&P: 03/04/18 Time of H&P: 15:37 Discharge Exam - Head Exam Head Exam: ATRAUMATIC, NORMAL INSPECTION, NORMOCEPHALIC - Eye Exam Eye Exam: EOMI, Normal appearance - ENT Exam ENT Exam: Mucous Membranes Moist - Neck Exam Neck exam: Full Rom - Respiratory Exam Respiratory Exam: NORMAL BREATHING PATTERN, UNREMARKABLE. absent: Wheezes, Respiratory Distress, Stridor - Cardiovascular Exam Cardiovascular Exam: REGULAR RHYTHM, +S1, +S2 - GI/Abdominal Exam GI & Abdominal Exam: Normal Bowel Sounds, Soft. absent: Distended, Guarding, Tenderness - Extremities Exam Additional comments: LLE limb: s/p AKA, marci and sutures in place, no supuration, no trace of bleeding, no erythema, wound is tender. - Neurological Exam Neurological exam: Alert, Oriented x3 Discharge Plan - Discharge Medications Prescriptions: Aspirin [Ecotrin] 81 mg PO DAILY #30 tabec Atorvastatin [Lipitor] 40 mg PO HS #30 tab Bethanechol [Urecholine] 10 mg PO TID #90 tab Carvedilol [Coreg] 6.25 mg PO Q12 #60 tab Clopidogrel [Plavix] 75 mg PO DAILY #30 tab Docusate Sodium/Sennosides A [Senokot S 50 MG-8.6 MG] 2 tab PO HS #60 tab Ferrous Sulfate 325 mg PO BID #60 tablet Gabapentin [Neurontin] 100 mg PO TID #90 cap Insulin Human NPH [Humulin N] 12 units SC ACB #1 vial Insulin Human NPH [Humulin N] 8 units SC ACD #1 vial Isosorbide Mononitrate ER [Imdur ER] 30 mg PO DAILY #30 tab Losartan [Cozaar] 25 mg PO DAILY #30 tab oxyCODONE [oxyCODONE Immediate Release Tab] 5 mg PO BID #10 tab - Follow Up Plan Condition: FAIR Disposition: HOSPICE - HOME Additional Instructions: OK to take marci on POD 14 (March 24, 2018) F/u at 's office in 1-2 weeks after discharge
[2018-03-18 15:38] VITALS: RESP 18
[2018-03-18 20:00] VITALS: TEMP 98.6
[2018-03-18 20:18] VITALS: BP 104/59; PULSE 85; O2SAT 98
--- NOTE | 2018-03-22 09:55 | PN ---
DATE: 03/18/2018 The patient was seen this morning and the amputation site on the left side is beautiful. Stitches were in place without erythema, no current bleeding. The patient is presently being treated with aspirin and Plavix, I believe that the heparin is stopped. I have no further surgical plans. Stitches will come out electively in the next couple of weeks. Dario Christian MD
== END 2018-03-18 20:05 | disposition home or self-care (01) | DRG 558 ==
LOC: H.ER 11:09 → H.ERHOLD 13:35 → H.TEL 16:39 → OBSVTOIN 03-06 19:23
PROVIDERS: ADMIT Family Medicine Geriatric Medicine; ATTEND Family Medicine Geriatric Medicine
PROC: 0Y6D0Z1 Detachment at Left Upper Leg, High, Open Approach (ICD-10-PCS; principal; 2018-03-08)
PROC: 30233N1 Transfusion of Nonautologous Red Blood Cells into Peripheral Vein, Percutaneous Approach (ICD-10-PCS; 2018-03-09)
PROC: 3E0T3BZ Introduction of Anesthetic Agent into Peripheral Nerves and Plexi, Percutaneous Approach (ICD-10-PCS; 2018-03-09 13:00)
PROC: 3E0T3BZ Introduction of Anesthetic Agent into Peripheral Nerves and Plexi, Percutaneous Approach (ICD-10-PCS; 2018-03-09 13:00)
DX: T87.54 Necrosis of amputation stump, left lower extremity (principal); I50.22 Chronic systolic (congestive) heart failure; L89.152 Pressure ulcer of sacral region, stage 2; L89.611 Pressure ulcer of right heel, stage 1; I21.4 Non-ST elevation (NSTEMI) myocardial infarction; E11.22 Type 2 diabetes mellitus with diabetic chronic kidney disease; N18.4 Chronic kidney disease, stage 4 (severe); I13.0 Hypertensive heart and chronic kidney disease with heart failure and stage 1 through stage 4 chronic kidney disease, or unspecified chronic kidney disease; N39.0 Urinary tract infection, site not specified; B96.1 Klebsiella pneumoniae [K. pneumoniae] as the cause of diseases classified elsewhere; E11.649 Type 2 diabetes mellitus with hypoglycemia without coma; E11.51 Type 2 diabetes mellitus with diabetic peripheral angiopathy without gangrene; T83.511A Infection and inflammatory reaction due to indwelling urethral catheter, initial encounter; E11.65 Type 2 diabetes mellitus with hyperglycemia; I25.10 Atherosclerotic heart disease of native coronary artery without angina pectoris; Z86.73 Personal history of transient ischemic attack (TIA), and cerebral infarction without residual deficits; E78.00 Pure hypercholesterolemia, unspecified; Z95.5 Presence of coronary angioplasty implant and graft; E78.5 Hyperlipidemia, unspecified; I25.2 Old myocardial infarction; G89.29 Other chronic pain; Z87.891 Personal history of nicotine dependence; Y83.5 Amputation of limb(s) as the cause of abnormal reaction of the patient, or of later complication, without mention of misadventure at the time of the procedure; Z16.12 Extended spectrum beta lactamase (ESBL) resistance; F32.9 Major depressive disorder, single episode, unspecified; D64.9 Anemia, unspecified; Y84.6 Urinary catheterization as the cause of abnormal reaction of the patient, or of later complication, without mention of misadventure at the time of the procedure; R51 Headache

== ENCOUNTER 2018-11-29 12:21 | Observation (INO) | payer OTHER ==
[2018-11-29 12:21] VITALS: BMI 20.1
--- NOTE | 2018-11-29 13:52 | ED PDOC ---
HPI: General Adult Time Seen by Provider: 11/29/18 12:36 Chief Complaint (Nursing): Weakness/Neurological Deficit Chief Complaint (Provider): Headache and bodyache History Per: Patient History/Exam Limitations: no limitations Onset/Duration Of Symptoms: Days (2) Current Symptoms Are (Timing): Still Present Additional Complaint(s): 68 year old female with a history of CVA and peripheral vascular disease presents to the ED for an evaluation of headache and body ache onset for 2 days and near syncopal episode today. Patient reports the headache is diffused and she felt dizzy in the morning and almost passed out in the bathtub. Otherwise, she denies cough, weakness, numbness, chest pain, vomiting or diarrhea. PMD: no family provider NIHSS Stroke Scale - Date/Time Evaluation Performed Date Performed: 11/29/18 Time Performed: 12:45 When Was NIHSS Performed: Baseline - How Severe is the Stroke Level of Consciousness: 0=Alert LOC to Questions: 0=Both comments correct LOC to commands: 0=Obeys both correctly Best Gaze: 0=Normal Visual: 0=No visual loss Facial: 0=Normal Motor Arm - Left: 0=No drift Motor Arm - Right: 0=No drift Motor Leg - Left: 0=No drift Motor Leg - Right: 0=No drift Limb Ataxia: 0=Absent Sensory: 0=Normal Best Language: 0=No aphasia Dysarthia: 0=Normal articulation Extinction & Inattention (Neglect): 0=Normal, no object Score: 0 rTPA Inclusion/Exclusion - Refusal of Treatment Patient Refused Treatment: No - Inclusion Criteria for Altepase Patient is 18 years or Older: Yes The Clinical Diagnosis of Ischemic Stroke That is Causing a Potentially Disabling Neurological Deficit: No Time of Onset is Well Established to be Less Than 270 Minute Before Treatment W ould Begin: No Risk/Benefit Discussed With Patient/Family Member Present: No Past Medical History Reviewed: Historical Data, Nursing Documentation, Vital Signs Vital Signs: Last Vital Signs Temp 97.2 F L 11/29/18 12:29 Pulse 81 11/29/18 12:29 Resp 16 11/29/18 12:29 BP 153/84 H 11/29/18 12:29 Pulse Ox 99 11/29/18 12:29 - Medical History PMH: CAD, CVA, Diabetes, HTN, Hypercholesterolemia Denies: HIV, Chronic Kidney Disease - Surgical History Surgical History: Coronary Stent Other surgeries: 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 - Family History Family History: States: Unknown Family Hx - Immunization History Hx Tetanus Toxoid Vaccination: No Hx Influenza Vaccination: No Hx Pneumococcal Vaccination: No - Home Medications Home Medications: Ambulatory Orders Medication Instructions Recorded RX: amLODIPine [Norvasc] 5 mg PO DAILY #30 tab 07/16/18 RX: Insulin Aspart, Recombinant 5 unit SQ TID 11/29/18 [Novolog] - Allergies Allergies/Adverse Reactions: Allergies Allergy/AdvReac Type Severity Reaction Status Date / Time No Known Allergies Allergy Verified 11/29/18 12:29 Review of Systems ROS Statement: Except As Marked, All Systems Reviewed And Found Negative Constitutional: Positive for: Other (body ache) Cardiovascular: Negative for: Chest Pain Gastrointestinal: Negative for: Vomiting, Abdominal Pain, Diarrhea Neurological: Positive for: Headache, Dizziness, Other (syncopal episode today ). Negative for: Weakness, Numbness Physical Exam - Reviewed Nursing Documentation Reviewed: Yes Vital Signs Reviewed: Yes - Physical Exam Appears: Positive for: Well, Non-toxic, No Acute Distress Head Exam: Positive for: ATRAUMATIC, NORMAL INSPECTION, NORMOCEPHALIC Skin: Positive for: Normal Color, Warm, Dry. Negative for: Rash Eye Exam: Positive for: EOMI, Normal appearance, PERRL ENT: Positive for: Normal ENT Inspection Neck: Positive for: Normal, Painless ROM, Supple. Negative for: Decreased ROM Cardiovascular/Chest: Positive for: Regular Rate, Rhythm Respiratory: Positive for: CNT, Normal Breath Sounds Gastrointestinal/Abdominal: Positive for: Normal Exam, Soft Back: Positive for: Normal Inspection Extremity: Positive for: Normal ROM Neurologic/Psych: Positive for: Alert, Oriented (x3) - Laboratory Results Result Diagrams: 11/29/18 13:34 11/30/18 06:25 - ECG O2 Sat by Pulse Oximetry: 99 (RA) Pulse Ox Interpretation: Normal Medical Decision Making Medical Decision Making: Time: 1253 Impression: headache, body ache, near syncope Differential Diagnosis includes but is not limited to: cardiac arrhythmia, CVA, dehydration, will consider UTI, temporal arteritis Plan: --Head w/o contrast [CT] --EKG --BMP --CPK --Troponin --ED urine --CBC w/ differential --ESR --PTT --Prothrombin Time --Glucose, POC Routine --Influenza A B --Reevaluation 1500 CT Head FINDINGS: HEMORRHAGE: No intracranial hemorrhage. BRAIN: Stable diffuse cerebral atrophy chronic microangiopathy are identified with bilateral thalamic and left basal ganglia/external capsule chronic lacunes again identified. Posterior fossa contents appear stable. No suspicious extra-axial collection appreciable. VENTRICLES: Unremarkable. No hydrocephalus. CALVARIUM: Unremarkable. PARANASAL SINUSES: Unremarkable as visualized. No significant inflammatory changes. MASTOID AIR CELLS: Unremarkable as visualized. No inflammatory changes. OTHER FINDINGS: None. IMPRESSION: Stable age-related degenerative changes as well as a few chronic lacunes as discussed above. [address] Phillips, neurologist production control expediter, recommends ASA, MRA head and neck, MRI brain. [address] Chou, hospitalist, who accepts patient for admission. Plan of admission discussed with patient, who is agreeable. Scribe Attestation: Documented by Luis Felipe Gaffney, acting as a scribe for De Gar MD. Provider Scribe Attestation: All medical record entries made by the Scribe were at my direction and personally dictated by me. I have reviewed the chart and agree that the record accurately reflects my personal performance of the history, physical exam, medical decision making, and the department course for this patient. I have also personally directed, reviewed, and agree with the discharge instructions and disposition. Disposition - Clinical Impression Clinical Impression: Syncope, Urinary tract infection, Headache - Patient ED Disposition Is Patient to be Admitted: Yes Discussed With : Shilpa Chou Doctor Will See Patient In The: ED Counseled Patient/Family Regarding: Studies Performed, Diagnosis - Disposition Disposition Time: 15:00 Condition: FAIR - Pt Status Changed To: Hospital Disposition Of: Observation - POA Present On Arrival: None
[2018-11-29 14:07] LABS: BASO # 0.1 K/uL (0.0-0.2); BASO % 0.7 % (0.0-2.0); EOS # 0.1 K/uL (0.0-0.7); EOS % 1.9 % (0.0-4.0); HEMOGLOBIN 12.1 g/dL (12.0-16.0); LYMPH % 25.3 % (20.0-40.0); MEAN CELL VOLUME 89.1 fl (81.0-99.0); MEAN CORPUSCULAR HEMOGLOBIN 29.8 pg (27.0-31.0); MEAN CORPUSCULAR HGB CONC 33.4 g/dL (33.0-37.0); MEAN PLATELET VOLUME 10.2 fl (7.2-11.7); MONO # 0.5 K/uL (0.0-0.8); MONO % 6.7 % (0.0-10.0); NEUT # 5.1 K/uL (1.8-7.0); NEUT % 65.4 % (50.0-75.0); NRBC % 0.1 % (0.0-0.0); RBC 4.07 Mil/uL (3.80-5.20); RED CELL DISTRIBUTION WIDTH 13.2 % (11.5-14.5); WHITE BLOOD COUNT 7.8 K/uL (4.8-10.8)
[2018-11-29 14:16] LABS: INR 0.9; PROTHROMBIN TIME 10.7 Seconds (9.8-13.1)
[2018-11-29 14:18] LABS: PARTIAL THROMBOPLASTIN TIME 36.9 Seconds (25.6-37.1)
[2018-11-29 14:22] LABS: CALCIUM 10.5 mg/dL (8.4-10.2)
[2018-11-29 14:32] LABS: TROPONIN I 0.04 ng/mL (0.00-0.120)
--- NOTE | 2018-11-29 15:03 | CT ---
Date of service: 11/29/2018 PROCEDURE: CT HEAD WITHOUT CONTRAST. HISTORY: headache COMPARISON: None available. TECHNIQUE: Axial computed tomography images were obtained through the head/brain without intravenous contrast. Radiation dose: Total exam DLP = 778.87 mGy-cm. This CT exam was performed using one or more of the following dose reduction techniques: Automated exposure control, adjustment of the mA and/or kV according to patient size, and/or use of iterative reconstruction technique. FINDINGS: HEMORRHAGE: No intracranial hemorrhage. BRAIN: Stable diffuse cerebral atrophy chronic microangiopathy are identified with bilateral thalamic and left basal ganglia/external capsule chronic lacunes again identified. Posterior fossa contents appear stable. No suspicious extra-axial collection appreciable. VENTRICLES: Unremarkable. No hydrocephalus. CALVARIUM: Unremarkable. PARANASAL SINUSES: Unremarkable as visualized. No significant inflammatory changes. MASTOID AIR CELLS: Unremarkable as visualized. No inflammatory changes. OTHER FINDINGS: None. IMPRESSION: Stable age-related degenerative changes as well as a few chronic lacunes as discussed above.
[2018-11-29 16:46] LABS: SQUAMOUS EPITHIAL 2 /hpf (0-5); URINE BACTERIA MANY (<OCC); URINE BILIRUBIN NEGATIVE (NEGATIVE); URINE BLOOD MODERATE (NEGATIVE); URINE CLARITY CLOUDY (Clear); URINE COLOR YELLOW (YELLOW); URINE GLUCOSE (UA) NEG (NEGATIVE); URINE LEUKOCYTE ESTERASE LARGE Leu/uL (Negative); URINE PROTEIN 30 mg/dL (NEGATIVE); URINE UROBILINOGEN 0.2-1.0 mg/dL (0.2-1.0)
--- NOTE | 2018-11-29 16:46 | CP.PCM.HP ---
History of Present Illness - History of Present Illness History of Present Illness: Rosalia ID# [id number] 68 y/o Citizen Of [place] speaking female w/ pmhx of CVA, PVD, DM, HTN who c/o pulsating headache, 8/10 in severity, associated w/ body aches, nausea, no vomiting, photophobia, and hand numbness and tingling persisting for 3 days. She denies "worst headache of my life," head trauma, visual changes, weakness, confusion, loss of consciousness. She reports that symptoms improve with sleep. Denies aggravating factors. PMD: CFH Pmhx: CVA 2017, PVD DM, HTN, AR (2015), HLD, CHF, CKD III HomeRx: This author phoned patient's pharmacy ([phone]) . Patient has only refilled Amlodipine 5mg PO QD in the last month. Was previously on other meds (according to EMR: ASA 81mg QD, Lipitor 40mg PO QD, Plavix 75mg PO QD, Lasix 20mg PO BID, Carvedilol 6.5 mg BID, Levemir, Spironolactone 25 mg 1/2 tab PO BID, Plavix 75mg PO QD, Losartan 25mg P QD) Socialhx: denies toxic habits Famhx: Father from stroke, age 57. Denies fam hx of migraines SurgHx: Left TKA 2018 Allergies: NKDA Next of Kin: , Mr. Orozco, Code Status: Full code Present on Admission - Present on Admission Any Indicators Present on Admission: No History of DVT/PE: No History of Uncontrolled Diabetes: No Urinary Catheter: No Decubitus Ulcer Present: No Review of Systems - Constitutional Constitutional: Chills. absent: Fever, Weakness - EENT Eyes: Photophobia. absent: Blurred Vision, Diplopia, Floaters Ears: absent: Dizziness Nose/Mouth/Throat: absent: Nasal Congestion - Cardiovascular Cardiovascular: absent: Chest Pain - Respiratory Respiratory: absent: Dyspnea - Gastrointestinal Gastrointestinal: Nausea. absent: Vomiting - Genitourinary Genitourinary: Dysuria, Urinary Incontinence, Urinary Frequency, Urinary Urgency. absent: Hematuria - Musculoskeletal Musculoskeletal: Myalgias, Numbness, Tingling - Neurological Neurological: Numbness, Headaches, Tingling. absent: Abnormal Movements, Abnormal Speech, Behavioral Changes, Confusion, Dizziness Past Patient History - Infectious Disease Hx of Infectious Diseases: None - Tetanus Immunizations Tetanus Immunization: Unknown - Past Medical History & Family History Past Medical History?: Yes - Past Social History Smoking Status: Former Smoker - CARDIAC Hx Hypercholesterolemia: Yes Hx Hypertension: Yes - PULMONARY Hx Respiratory Disorders: No - NEUROLOGICAL Hx Neurological Disorder: Yes HX Cerebrovascular Accident: Yes - HEENT Hx HEENT Problems: No - RENAL Hx Chronic Kidney Disease: No - ENDOCRINE/METABOLIC Hx Endocrine Disorders: Yes Hx Diabetes Mellitus Type 2: Yes - HEMATOLOGICAL/ONCOLOGICAL Hx Human Immunodeficiency Virus (HIV): No - INTEGUMENTARY Hx Dermatological Problems: No - MUSCULOSKELETAL/RHEUMATOLOGICAL Hx Musculoskeletal Disorders: Yes Hx Falls: Yes - GASTROINTESTINAL Hx Gastrointestinal Disorders: No - GENITOURINARY/GYNECOLOGICAL Hx Genitourinary Disorders: No - PSYCHIATRIC Hx Psychophysiologic Disorder: No Hx Substance Use: No - SURGICAL HISTORY Hx Coronary Stent: Yes - ANESTHESIA Hx Anesthesia: Yes Hx Anesthesia Reactions: No Hx Malignant Hyperthermia: No Meds Allergies/Adverse Reactions: Allergies Allergy/AdvReac Type Severity Reaction Status Date / Time No Known Allergies Allergy Verified 11/29/18 12:29 Physical Exam - Constitutional Appears: No Acute Distress - Head Exam Head Exam: ATRAUMATIC, NORMAL INSPECTION - Eye Exam Eye Exam: EOMI Pupil Exam: PERRL - ENT Exam ENT Exam: Mucous Membranes Moist - Respiratory Exam Respiratory Exam: Clear to Auscultation Bilateral, NORMAL BREATHING PATTERN - Cardiovascular Exam Cardiovascular Exam: RRR, +S1, +S2 - GI/Abdominal Exam GI & Abdominal Exam: Normal Bowel Sounds. absent: Guarding, Tenderness - Extremities Exam Extremities exam: Negative for: pedal edema, tenderness Additional comments: Left leg amputated above the knee from 12/2017 - Skin Skin Exam: Dry, Intact, Warm Results - Vital Signs Recent Vital Signs: Last Vital Signs Temp 97.2 F L 11/29/18 12:29 Pulse 81 11/29/18 12:29 Resp 16 11/29/18 12:29 BP 153/84 H 11/29/18 12:29 Pulse Ox 99 11/29/18 15:52 - Labs Result Diagrams: 11/29/18 13:34 11/29/18 13:34 Labs: Laboratory Results - last 24 hr 11/29/18 11/29/18 11/29/18 12:53 13:34 13:34 WBC 7.8 RBC 4.07 Hgb 12.1 D Hct 36.3 MCV 89.1 MCH 29.8 MCHC 33.4 RDW 13.2 Plt Count 232 MPV 10.2 Neut % (Auto) 65.4 Lymph % (Auto) 25.3 [place] % (Auto) 6.7 Eos % (Auto) 1.9 Baso % (Auto) 0.7 Neut # (Auto) 5.1 Lymph # (Auto) 2.0 [place] # (Auto) 0.5 Eos # (Auto) 0.1 Baso # (Auto) 0.1 ESR 31 H PT INR APTT Sodium 140 Potassium 4.9 Chloride 107 Carbon Dioxide 19 L Anion Gap 19 BUN 42 H Creatinine 1.5 H Est GFR ( Amer) 42 Est GFR (Non-Af Amer) 35 POC Glucose (mg/dL) 89 Random Glucose 91 Calcium 10.5 H Total Creatine Kinase 62 Troponin I 0.0400 Influenza Typ A,B (EIA) 11/29/18 11/29/18 13:34 13:46 WBC RBC Hgb Hct MCV MCH MCHC RDW Plt Count MPV Neut % (Auto) Lymph % (Auto) [place] % (Auto) Eos % (Auto) Baso % (Auto) Neut # (Auto) Lymph # (Auto) [place] # (Auto) Eos # (Auto) Baso # (Auto) ESR PT 10.7 INR 0.9 APTT 36.9 Sodium Potassium Chloride Carbon Dioxide Anion Gap BUN Creatinine Est GFR ( Amer) Est GFR (Non-Af Amer) POC Glucose (mg/dL) Random Glucose Calcium Total Creatine Kinase Troponin I Influenza Typ A,B (EIA) Negative for flu a/b Assessment & Plan - Assessment and Plan (Free Text) Assessment: 68 y/o Citizen Of [place] speaking female w/ pmhx of CVA, AR, HTN, CHF admitted to r/o CVA/TIA Patient has only refilled Amlodipine 5mg PO QD in the last month. Was previously on other meds (according to EMR: ASA 81mg QD, Lipitor 40mg PO QD, Plavix 75mg PO QD, Lasix 20mg PO BID, Carvedilol 12.5 mg QD, Levemir, Spironolactone 25 mg 1/2 tab PO BID) Plan: Headache r/o CVA/TIA s/p Asprin 325mg PO x1 in ER, ESR 32, CBC wnl CT head (11/29/2018): Stable age-related degenerative changes as well as a few chronic lacunes. No intracranial hemorrhage. Per ER note, Dr. Phillips, neurologist was consulted, appreciate recommendations: ASA, MRA head and neck, MRI brain. Start Asprin 81mg PO QD, Lipitor 40mg PO QD f/u lipid panel, bmp PT/OT eval Dysuria U/A pending Hx of PVD Cont. Plavix 75mg PO QD Hx of Diabetes HgbA1c 6.8 as of 05/2019 Will start coverage scale for now f/u repeat [id number] Hx of HTN Chronic. Stable. Resume home med, Amlodipine 5mg PO QD and Cozaar 25mg PO QD for now Will monitor BPs and adjust meds accordingly Diet Heart Healthy DVT prophylaxis SCDs Lovenox 40mg SC QD Code Status Full code
[2018-11-29] MEDS ORDERED: Dextrose 50% SYRINGE Inj (50 ml) IV PRN (17:44)
[2018-11-29] MEDS ORDERED: Glucagon Recombinant 1 mg Inj IM PRN (17:44)
--- NOTE | 2018-11-29 18:18 | MRI ---
Date of service: 11/29/2018 PROCEDURE: MR Angiography of the neck without contrast HISTORY: TIA COMPARISON: None available. TECHNIQUE: 3D [id number] angiography of the neck was performed. Rotating maximum intensity projection images of the cervical carotid and vertebral arteries were generated. The origins of the common carotid arteries were not visualized, which is a limitation inherent to the non-contrast time of flight technique. FINDINGS: RIGHT CAROTID ARTERIES: Common Carotid Artery: Normal. Carotid Bifurcation: Normal. Internal Carotid Artery:Normal. External Carotid Artery (proximal branches): Segmental moderate to severe narrowing at the origin. LEFT CAROTID ARTERIES: Common Carotid Artery: Normal. Carotid Bifurcation: Normal. Internal Carotid Artery:Normal. External Carotid Artery (proximal branches): Normal. VERTEBRAL ARTERIES: Right Vertebral Artery: Absent flow related signal. Left Vertebral Artery: Normal. OTHER FINDINGS: None. IMPRESSION: Absent related signal in the right vertebral artery concerning for occlusion. Correlation with CT versus carotid duplex Doppler ultrasound is recommended. No evidence of hemodynamically significant stenosis in the internal carotid arteries. Moderate two severe narrowing at the origin of the right external carotid artery.
--- NOTE | 2018-11-29 18:23 | MRI ---
Date of service: 11/29/2018 PROCEDURE: Magnetic Resonance Angiography Brain HISTORY: TIA COMPARISON: None available. TECHNIQUE: 3D time of flight MR angiography of the intracranial arteries was performed. Rotating maximum intensity projection images were generated. FINDINGS: INTERNAL CAROTID ARTERIES: Normal flow related signal. The skull base, petrous, cavernous and supraclinoid segments are bilaterally widely patient. ANTERIOR CEREBRAL ARTERIES: Normal flow related signal. A1 and A2 segments are widely patent. There is an infundibular artery in the right A2 segment. Smaller distal branches unremarkable, as visualized. MIDDLE CEREBRAL ARTERIES: Normal flow related signal. M1 and M2 segments are widely patent. Perisylvian branches grossly symmetric. POSTERIOR CIRCULATION: Basilar Artery: Normal flow related signal. Normal in caliber and widely patent. Distal Vertebral Arteries: Absent flow related signal in the right vertebral artery. Normal flow related signal in the left vertebral artery. Posterior Cerebral Arteries: Normal flow related signal. Widely patent. There is origin of bilateral posterior cerebral arteries, an anatomic variant. Posterior Inferior Cerebellar Arteries: Normal flow related signal. Widely patent. ANEURYSM/ VASCULAR MALFORMATIONS: None. OTHER FINDINGS: None. IMPRESSION: 1. Absent flow related signal in the right vertebral artery concerning for occlusion. Correlation with CT angiogram is recommended. 2. Normal caliber and widely patent anterior circulation arteries. 3. origin of bilateral posterior cerebral arteries, an anatomic variant.
--- NOTE | 2018-11-29 18:46 | MRI ---
Date of service: 11/29/2018 PROCEDURE: MRI BRAIN WITHOUT CONTRAST HISTORY: TIA COMPARISON: CT head without contrast from 11/29/2018. TECHNIQUE: Multiplanar, multisequence MR images of the brain were obtained without intravenous contrast enhancement. FINDINGS: HEMORRHAGE: None DWI: No evidence of an acute or early subacute infarction. BRAIN PARENCHYMA: There is an old hemorrhagic lacunar infarction in the left basal ganglia. There is an old infarction in the right thalamus. There are moderate chronic microangiopathic changes. There is no mass, mass effect or abnormal extra-axial fluid collection. The midline sagittal structures are normal. VENTRICLES: There is moderate age-related global parenchymal volume loss and proportionate enlargement of the ventricles and cortical sulci. CRANIUM: There is normal bone marrow signal pattern. ORBITS: Grossly unremarkable. PARANASAL SINUSES/MASTOIDS: Predominantly clear. VASCULAR SYSTEM: There are normal signal voids in the larger intracranial arteries. OTHER FINDINGS: None. IMPRESSION: No acute intracranial abnormality. Specifically, no evidence for acute infarction. Old hemorrhagic infarction in the left basal ganglia. Old lacunar infarction in the right basal ganglia. Moderate chronic microangiopathic changes and moderate age-related global parenchymal volume loss.
--- NOTE | 2018-11-29 20:26 | CARD ---
APPROVED REPORT Date of service: 11/29/2018 EKG Measurement Heart [id number] <Conclusion> Normal sinus rhythm Left axis deviation Lateral infarct, age undetermined T wave abnormality, consider lateral ischemia Abnormal ECG
[2018-11-29] MEDS: Insulin Regular 100 units/ml SC SCH (22:24)
[2018-11-30 06:55] LABS: CALCIUM 10.2 mg/dL (8.4-10.2)
[2018-11-30] MEDS: Insulin Regular 100 units/ml SC SCH ×2 (08:41→13:19)
[2018-11-30] MEDS ORDERED: cefTRIAXone (Rocephin) 1 gm Inj ONE (08:48)
[2018-11-30] MEDS ORDERED: Insulin Regular 100 units/ml ONE ×2 (13:15→13:18)
--- NOTE | 2018-11-30 13:50 | US ---
Date of service: 11/30/2018 PROCEDURE: Bilateral duplex Doppler carotid arterial ultrasound examination HISTORY: r/o occlusion COMPARISON: MRA neck 02/16/2018 TECHNIQUE: Bilateral duplex Doppler carotid arterial ultrasound examination was performed utilizing a linear array color Doppler transducer. FINDINGS: Right carotid artery: There is intimal thickening of the distal CCA. There is minimal calcified atheromatous plaque in the carotid bulb without gross morphologic stenosis. Peak systolic velocity measurements are as follows: CCA: 45.8 centimeters/second ICA: 71.7 centimeters/second ICA/CCA ratio: 1.6 There is retrograde flow demonstrated in the right vertebral artery. Left carotid artery: There is intimal thickening in the mid and distal CCA with noncalcified atheromatous plaque in the distal CCA. There is calcified plaque in the left carotid bulb without gross morphologic stenosis. Peak systolic velocity measurements are as follows: CCA: 90.9 centimeters/second ICA: 83.3 ICA/CCA ratio: 0.9 There is antegrade flow demonstrated in the left vertebral artery IMPRESSION: No evidence of hemodynamically significant carotid arterial stenosis bilaterally (16-49 percent by NASCET criteria). Note is made of retrograde flow in the right vertebral artery. This may indicate significant atheromatous narrowing of the right subclavian artery.
[2018-11-30 14:03] VITALS: O2SAT 97
--- NOTE | 2018-11-30 15:43 | CP.PCM.DIS ---
Provider - Provider Date of Admission: 11/29/18 15:54 Attending physician: Shilpa Chou MD Consults: 11/29/18 18:25 Neuro Surgery Consult Stat Comment: Consulting Provider: Roxana Phillips Consulting Physician: Roxana Phillips Reason for Consult: nera syncopy Time Spent in preparation of Discharge (in minutes): 35 Diagnosis - Discharge Diagnosis (1) Headache Status: Resolved Priority: Low (2) Urinary tract infection Status: Acute Priority: Low Hospital Course - Lab Results Lab Results: Most Recent Lab Values WBC 7.8 K/uL (4.8-10.8) 11/29/18 13:34 RBC 4.07 Mil/uL (3.80-5.20) 11/29/18 13:34 Hgb 12.1 g/dL (12.0-16.0) D 11/29/18 13:34 Hct 36.3 % (34.0-47.0) 11/29/18 13:34 MCV 89.1 fl (81.0-99.0) 11/29/18 13:34 MCH 29.8 pg (27.0-31.0) 11/29/18 13:34 MCHC 33.4 g/dL (33.0-37.0) 11/29/18 13:34 RDW 13.2 % (11.5-14.5) 11/29/18 13:34 Plt Count 232 K/uL (130-400) 11/29/18 13:34 MPV 10.2 fl (7.2-11.7) 11/29/18 13:34 Neut % (Auto) 65.4 % (50.0-75.0) 11/29/18 13:34 Lymph % (Auto) 25.3 % (20.0-40.0) 11/29/18 13:34 [place] % (Auto) 6.7 % (0.0-10.0) 11/29/18 13:34 Eos % (Auto) 1.9 % (0.0-4.0) 11/29/18 13:34 Baso % (Auto) 0.7 % (0.0-2.0) 11/29/18 13:34 Neut # (Auto) 5.1 K/uL (1.8-7.0) 11/29/18 13:34 Lymph # (Auto) 2.0 K/uL (1.0-4.3) 11/29/18 13:34 [place] # (Auto) 0.5 K/uL (0.0-0.8) 11/29/18 13:34 Eos # (Auto) 0.1 K/uL (0.0-0.7) 11/29/18 13:34 Baso # (Auto) 0.1 K/uL (0.0-0.2) 11/29/18 13:34 ESR 31 mm/hr (0-30) H 11/29/18 13:34 PT 10.7 Seconds (9.8-13.1) 11/29/18 13:34 INR 0.9 11/29/18 13:34 APTT 36.9 Seconds (25.6-37.1) 11/29/18 13:34 Sodium 138 mmol/l (132-148) 11/30/18 06:25 Potassium 4.7 MMOL/L (3.6-5.0) 11/30/18 06:25 Chloride 105 mmol/L (98-107) 11/30/18 06:25 Carbon Dioxide 20 mmol/L (22-30) L 11/30/18 06:25 Anion Gap 18 (10-20) 11/30/18 06:25 BUN 34 mg/dl (7-17) H 11/30/18 06:25 Creatinine 1.2 mg/dl (0.7-1.2) 11/30/18 06:25 Est GFR ( Amer) 54 11/30/18 06:25 Est GFR (Non-Af Amer) 45 11/30/18 06:25 POC Glucose (mg/dL) 210 mg/dL (65-110) H 11/30/18 12:05 Random Glucose 149 mg/dL (65-105) H 11/30/18 06:25 Hemoglobin A1c 6.4 % (4.2-6.5) 11/30/18 06:25 Calcium 10.2 mg/dL (8.4-10.2) 11/30/18 06:25 Total Creatine Kinase 62 U/L (30-135) 11/29/18 13:34 Troponin I 0.0400 ng/mL (0.00-0.120) 11/29/18 13:34 C-React Prot High Sens 0.20 mg/L (1.00-3.00) L 11/29/18 23:04 Triglycerides 313 mg/DL (0-149) H D 11/30/18 06:25 Cholesterol 250 mg/dL (0-199) H 11/30/18 06:25 LDL Cholesterol Direct 135 mg/dL (0-129) H 11/30/18 06:25 HDL Cholesterol 42 MG/DL (30-70) 11/30/18 06:25 Urine Color Yellow (YELLOW) 11/29/18 15:57 Urine Clarity Cloudy (Clear) 11/29/18 15:57 Urine pH 6.0 (5.0-8.0) 11/29/18 15:57 Ur Specific [place] 1.010 (1.003-1.030) 11/29/18 15:57 Urine Protein 30 mg/dL (NEGATIVE) 11/29/18 15:57 Urine Glucose (UA) Neg mg/dL (NEGATIVE) 11/29/18 15:57 Urine Ketones Negative mg/dL (NEGATIVE) 11/29/18 15:57 Urine Blood Moderate (NEGATIVE) 11/29/18 15:57 Urine Nitrate Negative (NEGATIVE) 11/29/18 15:57 Urine Bilirubin Negative (NEGATIVE) 11/29/18 15:57 Urine Urobilinogen 0.2-1.0 mg/dL (0.2-1.0) 11/29/18 15:57 Ur Leukocyte Esterase Large Clifford/uL (Negative) 11/29/18 15:57 Urine RBC (Auto) 8 /hpf (0-3) H 11/29/18 15:57 Urine Microscopic WBC 230 /hpf (0-5) H 11/29/18 15:57 Ur Squamous Epith Cells 2 /hpf (0-5) 11/29/18 15:57 Urine Bacteria Many (<OCC) H 11/29/18 15:57 Influenza Typ A,B (EIA) Negative for flu a/b (NEGATIVE) 11/29/18 13:46 - Hospital Course Hospital Course: 68 y/o Latvian speaking female w/ pmhx of CVA, NC, HTN, CHF, CKD admitted to [facility] r/o CVA/TIA. CT head (11/29/2018): Stable age-related degenerative changes as well as a few chronic lacunes. No intracranial hemorrhage. Brain MRI, Neck and Head MRA did not show evidence of acute infarction. Carotid and vertebral artery duplex: no evidence of hemodynamically significant carotid arterial stenosis. Found to have UTI, urine culture pending. Patient was previously on hospice care. Unclear what medications she is compliant w/. Patient has only refilled Amlodipine 5mg PO QD in the last month. Was previously on other meds (according to EMR: ASA 81mg QD, Lipitor 40mg PO QD, Plavix 75mg PO QD, Lasix 20mg PO BID, Carvedilol 12.5 mg QD, Levemir, Spironolactone 25 mg 1/2 tab PO BID). Stable for discharged to home w/ instructions to follow up in [facility]. Appointment arranged. Discussed w/ patient's son at bedside. Home Meds: Amlodipine 5mg PO QD Asprin 81mg PO QD Atorvastatin 40mg PO HS Plavix 75mg PO QD Losartan 25mg PO QD Bactrim DS 1 tab PO BID Discharge Exam - Head Exam Head Exam: ATRAUMATIC, NORMAL INSPECTION - Eye Exam Eye Exam: Normal appearance Pupil Exam: PERRL - ENT Exam ENT Exam: Mucous Membranes Moist - Respiratory Exam Respiratory Exam: Clear to PA & Lateral, NORMAL BREATHING PATTERN - Cardiovascular Exam Cardiovascular Exam: REGULAR RHYTHM, +S1, +S2 - GI/Abdominal Exam GI & Abdominal Exam: Normal Bowel Sounds, Soft. absent: Tenderness - Neurological Exam Neurological exam: Alert, CN II-XII Intact - Psychiatric Exam Psychiatric exam: Normal Affect Discharge Plan - Discharge Medications Prescriptions: amLODIPine [Norvasc] 5 mg PO DAILY #30 tab Aspirin [Aspirin Chewable] 81 mg PO DAILY 30 Days #30 chew Atorvastatin [Lipitor] 40 mg PO HS #30 tab Clopidogrel [Plavix] 75 mg PO DAILY #30 tab Losartan [Cozaar] 25 mg PO DAILY 30 Days tab Sulfamethoxazole/Trimethoprim [Bactrim DS 800 mg-160 mg] 1 tab PO BID 7 Days tab - Follow Up Plan Condition: FAIR Disposition: HOME/ ROUTINE Additional Instructions: Follow up w/ primary doctor within 1 week Referrals: [facility] [Outside] Clinical Quality Measures - CQM - Stroke Antithrombotic Prescribed: Yes Anticoagulation Prescribed for Atrial Flutter, Atrial Fibrillation and History of:: Not Applicable
[2018-11-30 23:05] VITALS: BP 133/87; PULSE 80; RESP 16; TEMP 98.6
== END 2018-11-30 23:03 | disposition home or self-care (01) ==
LOC: H.ER 12:21 → H.ERHOLD 15:54
PROVIDERS: ADMIT Hospitalist; ATTEND Hospitalist
DX: R51 Headache (principal); Z86.73 Personal history of transient ischemic attack (TIA), and cerebral infarction without residual deficits; Z91.14 Patient's other noncompliance with medication regimen; E78.5 Hyperlipidemia, unspecified; I25.2 Old myocardial infarction; N18.3 Chronic kidney disease, stage 3 (moderate); I13.0 Hypertensive heart and chronic kidney disease with heart failure and stage 1 through stage 4 chronic kidney disease, or unspecified chronic kidney disease; I50.9 Heart failure, unspecified; E78.00 Pure hypercholesterolemia, unspecified; I25.10 Atherosclerotic heart disease of native coronary artery without angina pectoris; Z87.891 Personal history of nicotine dependence; N39.0 Urinary tract infection, site not specified; Z89.612 Acquired absence of left leg above knee; R73.03 Prediabetes; I73.9 Peripheral vascular disease, unspecified
CPT/HCPCS: 70450; 70544; 70547; 70551; 80048; 80061; 81003; 82550; 82948; 83036; 84484; 85025; 85610; 85651; 85730; 86140; 87804; 93005; 93880; 96372; 99285; G0378; J0696